=== PATIENT | female | born 1940 | race African-American/Black ===

== ENCOUNTER 2016-05-04 08:18 | Day surgery (SDC) | payer OTHER ==
[2016-05-04 08:52] LABS: BASOPHIL 0.5 % (0-2.0); EOSINOPHIL 0.2 % (0-4.5); MCH 21.3 pg (25.7-33.7); MCHC 30.2 g/dl (32.0-36.0); MEAN CELL VOLUME 70.5 fl (80-96); MEAN PLT VOLUME 8.7 fl (7.5-11.1); NEUTROPHILS 68.8 % (42.8-82.8); PLATELET COUNT 210 K/MM3 (134-434); RDW 23.3 % (11.6-15.6); WHITE BLOOD COUNT 4.9 K/mm3 (4.0-10.0)
[2016-05-04 09:01] VITALS: TEMP 97.5
[2016-05-04 09:12] LABS: INR 1.1 (0.82-1.09); PROTHROMBIN TIME (PATIENT) 12.1 SEC (9.98-11.88)
[2016-05-04 11:52] LABS: ANISOCYTOSIS 2+; HYPOCHROMIA 2+; PLATELET ESTIMATE ADEQUATE (NORMAL)
[2016-05-04 15:39] VITALS: BP 141/58; PULSE 60
--- NOTE | 2016-05-05 15:33 | PATH ---
Surgical Pathology Report Patient Name: MICAH INIGUEZ [facility]. Rec. #: [id number] /Age/Gender: 1940 (Age: 75) / F Account: [id number] Location: RADIOLOGY [facility] Taken: 05/04/2016 Received: 05/04/2016 Reported: 05/05/2016 Physicians: Donald Artis M.D. Owen Garcia M.D. Specimen(s) Received LEFT LUNG BIOPSY Clinical History 75 year old female with left breast cancer now with left lower lung pleural band lesion/infiltrate; r/o prior radiation changes, infections/inflammatory process vs primary lung ca Final Diagnosis LUNG, LEFT, PLEURAL BASED LESION, CT GUIDED CORE BIOPSY: BENIGN PULMONARY TISSUE WITH NECROTIZING GRANULOMATOUS INFLAMMATION (SEE COMMENT). Comment: No acid fast bacilli are identified with AFB stain; no fungal organisms are identified with GMS stain. Clinical and imaging correlations and correlations with microbiology studies are suggested. The case was discussed with Dr. Garcia and Dr. Artis on 05/05/16. Electronically Signed Kehinde Coronado M.D. Gross Description Received in formalin, labeled "lung biopsy" is a 1.0 cm in length x 0.1 cm diameter farmer, cylindrical portion of soft tissue. The specimen is submitted in toto in one cassette. 05/04/201605/04/2016
== END 2016-05-04 16:31 | disposition home or self-care (01) ==
LOC: JRADIR 08:18
PROVIDERS: ATTEND Internal Medicine
PROC: BB24ZZZ Computerized Tomography (CT Scan) of Bilateral Lungs (ICD-10-PCS; principal; 2016-05-04)
PROC: 0BBJ3ZX Excision of Left Lower Lung Lobe, Percutaneous Approach, Diagnostic (ICD-10-PCS; 2016-05-04)
DX: R91.1 Solitary pulmonary nodule (principal); I10 Essential (primary) hypertension; I25.10 Atherosclerotic heart disease of native coronary artery without angina pectoris; E78.5 Hyperlipidemia, unspecified; K21.9 Gastro-esophageal reflux disease without esophagitis; Z85.3 Personal history of malignant neoplasm of breast
CPT/HCPCS: 32405; 36415; 71010-TC; 77012-TC; 85025; 85610; 88305-TC; 88312-TC

== ENCOUNTER 2016-05-20 07:18 | Inpatient (IN) | payer OTHER ==
[2016-05-20 07:26] VITALS: BMI 19.7
[2016-05-20 07:59] LABS: BASOPHIL 0.7 % (0-2.0); EOSINOPHIL 0.2 % (0-4.5); MCH 21.5 pg (25.7-33.7); MCHC 30.9 g/dl (32.0-36.0); MEAN CELL VOLUME 69.5 fl (80-96); MEAN PLT VOLUME 8.6 fl (7.5-11.1); NEUTROPHILS 73.5 % (42.8-82.8); PLATELET COUNT 267 K/MM3 (134-434); RDW 23.8 % (11.6-15.6); WHITE BLOOD COUNT 6.9 K/mm3 (4.0-10.0)
[2016-05-20 08:13] LABS: INR 1.13 (0.82-1.09); PROTHROMBIN TIME (PATIENT) 12.5 SEC (9.98-11.88)
[2016-05-20] MEDS ORDERED: FUROSEMIDE 40 MG/4 ML INJECTABLE VIAL IVPUSH ONE (08:36)
--- NOTE | 2016-05-20 08:36 | PDOC ---
History of Present Illness - General History Source: Patient Exam Limitations: No Limitations - History of Present Illness Initial Comments: 05/20/16 08:41 The patient is a 75 year old female with a significant past medical history of hypertension, hyperlipidemia, COPD, s/p left sided lumpectomy who presents to the ED with complaints of shortness of breath and chest [place] since earlier today. The patient reports nonradiating mid sternal chest pain. She notes that she cant breath when she gets up. Patient also reports swelling to her right lower extremity. Patent reports she was recently discharged from the hospital and had a change in medication. 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 Patient denies palpitations or cough. Patient denies abdominal pain, nausea, vomiting, or diarrhea. Patient denies fevers or chills. Patient denies any other symptoms. Social hx: The patient smokes 2 cigarettes a day. Surgical hx: Hysterectomy Materials Clerk: Dr. Kevin. <Lon Barton - Last Filed: 05/20/16 08:41> <Kathi Serrano - Last Filed: 05/24/16 08:02> - General Chief Complaint: Shortness of Breath Stated Complaint: SOB Time Seen by Provider: 05/20/16 07:25 Past History <Lon Barton - Last Filed: 05/20/16 08:41> - Past Medical History Anemia: No Asthma: No Cancer: Yes (breast ca/radiation therapy LEFT) Cardiac Disorders: No CVA: No COPD: Yes CHF: No Dementia: No Diabetes: No GI Disorders: No Disorders: No HTN: Yes Hypercholesterolemia: Yes Liver Disease: No Suicide Attempt (Hx): No Seizures: No Thyroid Disease: No - Surgical History Abdominal Surgery: No Appendectomy: No Cardiac Surgery: No Cholecystectomy: No Lung Surgery: No Neurologic Surgery: No Orthopedic Surgery: Yes (right foot) - Immunization History Immunization Up to Date: Yes - Psycho/Social/Smoking Cessation Hx Anxiety: No Suicidal Ideation: No Smoking History: Current every day smoker Have you smoked in the past 12 months: Yes Number of Cigarettes Smoked Daily: 2 Cigars Per Day: 0 Information on smoking cessation initiated: No 'Breaking Loose' booklet given: 04/15/16 Hx Alcohol Use: No Drug/Substance Use Hx: No Substance Use Type: None Hx Substance Use Treatment: No <Kathi Serrano - Last Filed: 05/24/16 08:02> - Past Medical History Allergies/Adverse Reactions: Allergies Allergy/AdvReac Type Severity Reaction Status Date / Time No Known Allergies Allergy Verified 05/02/16 10:26 Home Medications: Ambulatory Orders Cholecalciferol (Vitamin D3) [Vitamin D3 -] 1,000 unit PO DAILY #30 tab Albuterol Sulfate [Proair Hfa -] 2 inh PO BID 06/14/14 Omeprazole 20 mg PO DAILY 09/29/15 Diltiazem Cd [Cardizem Cd -] 360 mg PO DAILY #30 cap.cd.24h 10/15/15 Furosemide [Lasix -] 20 mg PO DAILY #30 tablet 12/14/15 Acetaminophen [Tylenol Extra Strength] 500 mg PO QID #90 tablet 02/22/16 Aspirin [ASA -] 81 mg PO DAILY tab.chew 02/22/16 Atorvastatin Ca [Lipitor] 40 mg PO HS tablet 02/22/16 Budesonide/Formeterol Fumarate [SYMBICORT 160/4.5mcg -] 2 puff IH BID inhaler 02/22/16 Lisinopril [Prinivil] 10 mg PO DAILY tablet 02/22/16 Nitroglycerin Sublingual [Nitrostat -] 0.4 mg SL Q5M PRN #30 tab 02/22/16 Ranolazine [Ranexa -] 500 mg PO BID tab 02/22/16 Verapamil HCl ER [Calan Sr -] 180 mg PO DAILY #30 tablet.er 02/22/16 Review of Systems - Review of Systems Able to Perform ROS?: Yes Comments:: 05/20/16 08:41 GENERAL/CONSTITUTIONAL: No fever or chills. No weakness. HEAD, EYES, EARS, NOSE AND THROAT: No change in vision. No ear pain or discharge. No sore throat. CARDIOVASCULAR: + chest pain, shortness of breath, right ankle swelling RESPIRATORY: No cough, wheezing, or hemoptysis. GASTROINTESTINAL: No nausea, vomiting, diarrhea or constipation. GENITOURINARY: No dysuria, frequency, or change in urination. MUSCULOSKELETAL: No joint or muscle swelling or pain. No neck or back pain. SKIN: No rash NEUROLOGIC: No headache, vertigo, loss of consciousness, or change in strength/ sensation. ENDOCRINE: No increased thirst. No abnormal weight change. HEMATOLOGIC/LYMPHATIC: No anemia, easy bleeding, or history of blood clots. ALLERGIC/IMMUNOLOGIC: No hives or skin allergy. All Other Systems: Reviewed and Negative <Lon Barton - Last Filed: 05/20/16 08:41> *Physical Exam - Vital Signs Last Vital Signs Temp Pulse Resp BP Pulse Ox 98.7 F 81 26 H 157/68 83 L 05/20/16 07:23 05/20/16 07:23 05/20/16 07:23 05/20/16 07:23 05/20/16 07:23 - Physical Exam Comments: 05/20/16 08:42 GENERAL: Awake, alert, and fully oriented, in no acute distress HEAD: No signs of trauma EYES: PERRLA, EOMI, sclera anicteric, conjunctiva clear ENT: Auricles normal inspection, hearing grossly normal, nares patent, oropharynx clear without exudates. Moist mucosa NECK: Normal ROM, supple, no lymphadenopathy, JVD, or masses LUNGS: +diffuse expiratory wheezes and mild tachypnea. Moderate decreased breath sounds bilaterally. No wheezes. HEART: Regular rate and rhythm, normal S1 and S2, no murmurs, rubs or gallops ABDOMEN: Soft, nontender, normoactive bowel sounds. No guarding, no rebound. No masses EXTREMITIES:+2+ pitting edema at the right ankle. Normal range of motion. No clubbing or cyanosis. No cords, erythema, or tenderness NEUROLOGICAL: Cranial nerves II through XII grossly intact. Normal speech, normal gait SKIN: Warm, Dry, normal turgor, no rashes or lesions noted. <Lon Barton - Last Filed: 05/20/16 08:41> - Vital Signs Last Vital Signs Temp Pulse Resp BP Pulse Ox 98.7 F 81 26 H 157/68 83 L 05/20/16 07:23 05/20/16 07:23 05/20/16 07:23 05/20/16 07:23 05/20/16 07:23 <Kathi Serrano - Last Filed: 05/24/16 08:02> ED Treatment Course - LABORATORY CBC & Chemistry Diagram: 05/20/16 07:20 05/20/16 07:20 - ADDITIONAL ORDERS Additional order review: Laboratory Results 05/20/16 05/20/16 07:20 07:20 INR 1.13 B-Natriuretic Peptide Cancelled 05/20/16 07:20 RBC 4.49 MCV 69.5 L MCHC 30.9 L RDW 23.8 H MPV 8.6 Neutrophils % 73.5 Lymphocytes % 15.5 D Monocytes % 10.1 Eosinophils % 0.2 Basophils % 0.7 <Lon Barton - Last Filed: 05/20/16 08:41> - LABORATORY CBC & Chemistry Diagram: 05/24/16 05:35 05/22/16 06:00 - ADDITIONAL ORDERS Additional order review: Laboratory Results 05/20/16 07:20 B-Natriuretic Peptide Cancelled 05/20/16 07:20 RBC 4.49 MCV 69.5 L MCHC 30.9 L RDW 23.8 H MPV 8.6 Neutrophils % 73.5 Lymphocytes % 15.5 D Monocytes % 10.1 Eosinophils % 0.2 Basophils % 0.7 - RADIOLOGY Radiology Studies Ordered: Category Date Time Status CHEST X-RAY PORTABLE* [RAD] Stat Radiology 05/20/16 07:39 Completed <Kathi Serrano - Last Filed: 05/24/16 08:02> Medical Decision Making - Medical Decision Making Pt with history CHF, appears fluid-overloaded on exam. Noted to have RLE swelling>> left. Although this is chronic per patient, will obtain doppler. Cardio consult obtained. To be admitted. <Kathi Serrano - Last Filed: 05/24/16 08:02> *DC/Admit/Observation/Transfer - Attestations Scribe Attestion: 05/20/16 08:42 Documentation prepared by Lon Barton, acting as biomedical equipment tech for Kathi Serrano MD <Lon Barton - Last Filed: 05/20/16 08:41> - Discharge Dispostion Admit: Yes <Kathi Serrano - Last Filed: 05/24/16 08:02> Diagnosis at time of Disposition: CHF (congestive heart failure) Qualifiers: Congestive heart failure type: diastolic Congestive heart failure chronicity: chronic Qualified Code(s): I50.32 - Chronic diastolic (congestive) heart failure - Discharge Dispostion Condition at time of disposition: Guarded
[2016-05-20 08:51] LABS: ALBUMIN 3.1 g/dl (3.4-5.0); ANION GAP 9 (8-16); BILIRUBIN,TOTAL 0.9 mg/dL (0.2-1.0); CALCIUM 8.8 mg/dL (8.5-10.1); CO2 33 mmol/L (21-32); GLUCOSE,RANDOM 109 mg/dL (74-106); SGPT/ALT 24 U/L (12-78); TOT PROT 7.1 g/dl (6.4-8.2)
[2016-05-20 08:56] LABS: ALK PHOS 79 U/L (45-117); CREATININE 0.5 mg/dL (0.55-1.02); TROPONIN I 0.11 ng/ml (0.00-0.05)
[2016-05-20] MEDS ORDERED: FUROSEMIDE 40 MG/4 ML INJECTABLE VIAL ONE (09:22)
[2016-05-20 09:25] LABS: SGOT/AST 50 U/L (15-37)
--- NOTE | 2016-05-20 09:46 | EKG ---
Test Reason : Blood Pressure : / mmHG Vent. Rate : 089 BPM Atrial Rate : 089 BPM P-R Int : 152 ms QRS Dur : 120 ms QT Int : 374 ms P-R-T Axes : 064 -40 043 degrees QTc Int : 455 ms POOR DATA QUALITY, INTERPRETATION MAY BE ADVERSELY AFFECTED SINUS RHYTHM WITH PREMATURE SUPRAVENTRICULAR COMPLEXES POSSIBLE LEFT ATRIAL ENLARGEMENT LEFT AXIS DEVIATION LEFT VENTRICULAR HYPERTROPHY WITH QRS WIDENING AND REPOLARIZATION ABNORMALITY CANNOT RULE OUT SEPTAL INFARCT , AGE UNDETERMINED ABNORMAL ECG Confirmed by BALJEET SOSA MD ([id number]) on 05/20/2016 9:46:13 AM Referred By: Confirmed By:BALJEET SOSA MD
--- NOTE | 2016-05-20 10:36 | PN ---
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, Physician Chief Complaint: Well known to our service with multiple admissions over the last one year, last two months ago for similar complaints. PMH of CAD, , COPD and chronic diastolic CHF now presents to ER with one day of worsened SOB. Found to have markedly elevated BN and CXR showing CHF and small effusions. Received IV Lasix last evening in ER and is now feeling much better, wanting to "go home". History of Present Illness: The patient is a 75 year old female with a significant past medical history of hypertension, hyperlipidemia, COPD, s/p left sided lumpectomy who presents to the ED with complaints of shortness of breath and chest is[place] since earlier today. The patient reports nonradiating mid sternal chest pain. She notes that she cant breath when she gets up. Patient also reports swelling to her right lower extremity. Had lung bx recently for suspected metastatic dx which was negative. - Objective Vital Signs: Vital Signs Temperature 98.7 F 05/20/16 07:23 Pulse Rate 81 05/20/16 07:23 Respiratory Rate 26 H 05/20/16 07:23 Blood Pressure 157/68 05/20/16 07:23 O2 Sat by Pulse Oximetry (%) 83 L 05/20/16 07:23 Constitutional: Yes: No Distress Cardiovascular: Yes: Regular Rate and Rhythm Respiratory: Yes: Other (bilateral rales at bases and scattered wheezing.) Gastrointestinal: Yes: Soft Edema: Yes Edema: LLE: 1+, RLE: 2+ Neurological: Yes: Alert, Oriented Labs: CBC, BMP 05/20/16 07:20 05/20/16 07:20 INR, PTT INR 1.13 (0.82-1.09) 05/20/16 07:20 Laboratory Tests 05/20/16 05/20/16 05/20/16 07:20 07:20 07:20 WBC 6.9 D Hgb 9.7 L Hct 31.2 L Plt Count 267 D INR 1.13 Sodium 141 Potassium 5.2 H BUN 17 Creatine Kinase 115 Troponin I 0.11 H B-Natriuretic Peptide 9856.36 H - ....Imaging Chest X-ray: Report Reviewed, Image Reviewed EKG: Image Reviewed (NSR with NSST changes) Assessment/Plan IMP: Chest pain, h/o CAD w/ prior coronary intervention years ago, has refused cardiac cath on multiple recent occasions History breast cancer, lung mass with negative bx COPD, chronic with chronic hypoxemia Mild PSVT Chronic diastolic CHF carotid stenosis s/p CEA REC: Chest pain-multiple admissions for similar sx -refusing cardiac cath for now, understands the risks/benefits/alternatives -chest pain is improved -trend cardiac enzymes -Echo 02/17 showed normal LV systolic function, mod AR, mild , no sig change from prior echo -she does not tolerate a bblocker due to her severe COPD -she states that she did not tolerate Plavix in the past due to facial swelling/ itching -she had a recent subdural hematoma thus would not treat with effient or brilinta -would cont ASA 81mg daily -cont Imdur 30mg daily and Ranexa 500mg bid -cont NTG SL prn -cont Lipitor 40mg qhs -cont Lisinopril 10mg daily -as pt has refused cardiac cath for now, no further planned inpatient cardiac work up at this time SOB-wheezing, likely combination of acute on chronic diastolic CHF with chronic COPD -this is chronic condition that pt deals with -again reenforced importance of smoking cessation -IV lasix, pulmonary evaluation PSVT -refuses Cardizem as she believes it causes facial swelling and itching -has tolerated verapamil -cannot use bblocker due to COPD -cont digoxin 0.125mg daily Edema- -likely due to CHF, but asymmetric. Check LE venou duplex to r/o DVT
[2016-05-20 10:54] LABS: ANISOCYTOSIS 2+; HYPOCHROMIA 2+; MICROCYTOSIS 1+; OVALOCYTES 1+; PLATELET ESTIMATE ADEQUATE (NORMAL); POIKILOCYTOSIS 2+; POLYCHROMASIA 1+; TARGET CELLS 2+
[2016-05-20] MEDS: ISOSORBIDE MONONITRATE 30 MG TAB.SR.24H (FP) PO SCH (14:28)
[2016-05-20] MEDS: ASPIRIN 81 MG CHEWABLE TABLETS PO SCH (14:28)
[2016-05-20] MEDS: LISINOPRIL 10 MG TABLET (FP) PO SCH (14:28)
[2016-05-20] MEDS: VERAPAMIL HCL 120 MG E.R. TABLET PO SCH (14:28)
[2016-05-20] MEDS ORDERED: ASPIRIN 81 MG CHEWABLE TABLETS ONE (14:32)
[2016-05-20] MEDS ORDERED: ALBUTEROL SO4 0.083% IH SOL 2.5 MG/3 ML VIAL.NEB. NEB PRN (16:07)
--- NOTE | 2016-05-20 17:17 | CON.PULM ---
Consult Consult Specialty:: PULMONARY Referred by:: ANI Reason for Consultation:: SOB - History of Present Illness Chief Complaint: SOB History of Present Illness: The patient is a 75 year old female with a significant past medical history of hypertension, hyperlipidemia, COPD, s/p left sided lumpectomy/breast cancer who presents to the ED with complaints of shortness of breath and chest [place] since earlier today. The patient reports nonradiating mid sternal chest pain. She notes that she cant breath when she gets up. Patient also reports swelling to her right lower extremity. Patent reports she was recently discharged from the hospital and had a change in medication. 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 Patient denies palpitations or cough. Patient denies abdominal pain, nausea, vomiting, or diarrhea. Patient denies fevers or chills. Patient denies any other symptoms. Social hx: The patient smokes 2 cigarettes a day. 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) Cardio/Vascular: Yes: CAD, CHF, HTN, Other (carotid stenosis s/p CEA) Pulmonary: Yes: COPD, O2 Dependent, Other (Lung nodules) - Past Surgical History Past Surgical History: Yes: Carotid Endarterectomy (right), Hysterectomy - Alcohol/Substance Use Hx Alcohol Use: No History of Substance Use: reports: None - Smoking History Smoking history: Current every day smoker Have you smoked in the past 12 months: Yes Aproximately how many cigarettes per day: 2 - Social History Usual Living Arrangement: Alone ADL: Independent History of Recent Travel: No Home Medications - Allergies Allergies/Adverse Reactions: Allergies Allergy/AdvReac Type Severity Reaction Status Date / Time No Known Allergies Allergy Verified 05/02/16 10:26 - Home Medications Home Medications: Ambulatory Orders Cholecalciferol (Vitamin D3) [Vitamin D3 -] 1,000 unit PO DAILY #30 tab Albuterol Sulfate [Proair Hfa -] 2 inh PO BID 06/14/14 Omeprazole 20 mg PO DAILY 09/29/15 Diltiazem Cd [Cardizem Cd -] 360 mg PO DAILY #30 cap.cd.24h 10/15/15 Furosemide [Lasix -] 20 mg PO DAILY #30 tablet 12/14/15 Acetaminophen [Tylenol Extra Strength] 500 mg PO QID #90 tablet 02/22/16 Aspirin [ASA -] 81 mg PO DAILY tab.chew 02/22/16 Atorvastatin Ca [Lipitor] 40 mg PO HS tablet 02/22/16 Budesonide/Formeterol Fumarate [SYMBICORT 160/4.5mcg -] 2 puff IH BID inhaler 02/22/16 Lisinopril [Prinivil] 10 mg PO DAILY tablet 02/22/16 Nitroglycerin Sublingual [Nitrostat -] 0.4 mg SL Q5M PRN #30 tab 02/22/16 Ranolazine [Ranexa -] 500 mg PO BID tab 02/22/16 Verapamil HCl ER [Calan Sr -] 180 mg PO DAILY #30 tablet.er 02/22/16 Family Disease History - Family Disease History Family Disease History: CA: Father (widespread, unsure of which type), Other: Mother ( of brain hemorrhage after trauma) Review of Systems - Review of Systems Constitutional: denies: Fever Eyes: denies: Blurred Vision HENT: denies: Difficult Swallowing Neck: denies: Decreased ROM Cardiovascular: reports: Chest Pain, Shortness of Breath Respiratory: reports: Cough, Exercise Intolerance, SOB, SOB on Exertion, Wheezing. denies: Hemoptysis Gastrointestinal: reports: Abdominal Pain (MID EPIGASTRIC) Genitourinary: denies: Burning Breasts: reports: No Symptoms Reported Musculoskeletal: reports: No Symptoms Integumentary: reports: No Symptoms Neurological: reports: No Symptoms Physical Exam Vital Sings: Vital Signs Temperature 98.0 F 05/20/16 14:27 Pulse Rate 80 05/20/16 14:27 Respiratory Rate 18 05/20/16 14:27 Blood Pressure 140/65 05/20/16 14:27 O2 Sat by Pulse Oximetry (%) 96 05/20/16 14:27 Constitutional: Yes: Calm Eyes: Yes: EOM Intact HENT: Yes: Normocephalic Neck: Yes: Trachea Midline Cardiovascular: Yes: S1, S2 Respiratory: Yes: Wheezes (BILATERAL ANTERIOR/POSTERIOR) Gastrointestinal: Yes: Normal Bowel Sounds, Soft Edema: RLE: 1+ Integumentary: Yes: WNL Neurological: Yes: WNL Labs: ALL LABS REVIEWED Imaging - Results Chest X-ray: Image Reviewed Problem List - Problems (1) CHF (congestive heart failure) Code(s): I50.9 - HEART FAILURE, UNSPECIFIED Qualifiers: Congestive heart failure type: diastolic Congestive heart failure chronicity: chronic Qualified Code(s): I50.32 - Chronic diastolic ( congestive) heart failure (2) Acute on chronic respiratory failure with hypoxia Code(s): J96.21 - ACUTE AND CHRONIC RESPIRATORY FAILURE WITH HYPOXIA (3) Breast CA Code(s): C50.919 - MALIGNANT NEOPLASM OF UNSP SITE OF UNSPECIFIED FEMALE BREAST Qualifiers: Laterality: unspecified laterality (4) CAD (coronary artery disease) Code(s): I25.10 - ATHSCL HEART DISEASE OF [place] CORONARY ARTERY W/O ANG PCTRS (5) Pleural effusion Code(s): J90 - PLEURAL EFFUSION, NOT ELSEWHERE CLASSIFIED Assessment/Plan WELL KNOWN BY OUR SERVICE RECENT TRANS-THORACIC NEEDLE BX LUNG MASS REVEALED GRANULOMA/NO MALIGNANCY BREAST CA COPD/BRONCHOSPASTIC COMPONENT/HOME O2 CHF/LVDD/ELEVATED TROPONIN PLEURAL EFFUSION WILL START SHORT COURSE STEROIDS/BRONCHODILATORS/O2 SUPPLEMENTATION AGREE WITH DIURESIS/NA RESTRICTION/CYCLE TROPS/EKG/DVT PROPHYLAXSIS NITRATES/MARIPOSA/VERAPAMIL/CARDIO FOLLOW UP. WILL FOLLOW Jory GHOSH MD
--- NOTE | 2016-05-20 17:41 | HP ---
CHIEF COMPLAINT: Shortness of breath, Chest Pain PCP: Cardiology: Dr Kevin HISTORY OF PRESENT ILLNESS: 75 year old female with pmh of HTN, HPLD, COPD presented to the ED with complaint of SOB and chest pain. The shortness of breath started today, she also has orthopnea, dyspnea on exacerbation, unable to walk to bathroom without feeling dyspneic. Pt also has increased lower ext edema right more than left. Pt also has chest pain, started 3 days ago, substernal/epigastric, intermittent dull, sometimes burning, 8/10, increased with swallowing food, does not radiate. Pt with yellow productive cough especially in am upon waking up. Pt admits to having a history of heartburn and sour taste in mouth when eat certain food. No nausea or vomiting. No palpitation, no hemoptysis, no leg pain. No fever, chills. No dizziness or confusion. ER course was notable for: (1) Aspirin, lasix IV (2) CXR, US lower ext Recent Travel: None PAST MEDICAL HISTORY: HTN, HPLD, COPD PAST SURGICAL HISTORY: Hysterectomy, Lung Biopsy which showed no malignancy Social History: Smoking:Current lifelong Smoker 4 cigarette per day Alcohol: denies Drugs: denies Family History: noncontributory Allergies Cardizem cause facial swelling and itching Plavix cause nausea, heartburn, bruising HOME MEDICATIONS: Home Medications Medication Instructions Recorded Cholecalciferol (Vitamin D3) 1,000 unit PO DAILY #30 tab 04/02/13 [Vitamin D3 -] Albuterol Sulfate [Proair Hfa -] 2 inh PO BID 06/14/14 Omeprazole 20 mg PO DAILY 09/29/15 Diltiazem Cd [Cardizem Cd -] 360 mg PO DAILY #30 cap.cd.24h 10/15/15 Furosemide [Lasix -] 20 mg PO DAILY #30 tablet 12/14/15 Acetaminophen [Tylenol Extra 500 mg PO QID #90 tablet 02/22/16 Strength] Aspirin [ASA -] 81 mg PO DAILY tab.chew 02/22/16 Atorvastatin Ca [Lipitor] 40 mg PO HS tablet 02/22/16 Budesonide/Formeterol Fumarate 2 puff IH BID inhaler 02/22/16 [SYMBICORT 160/4.5mcg -] Lisinopril [Prinivil] 10 mg PO DAILY tablet 02/22/16 Nitroglycerin Sublingual 0.4 mg SL Q5M PRN #30 tab 02/22/16 [Nitrostat -] Ranolazine [Ranexa -] 500 mg PO BID tab 02/22/16 Verapamil HCl ER [Calan Sr -] 180 mg PO DAILY #30 tablet.er 02/22/16 REVIEW OF SYSTEMS CONSTITUTIONAL: Absent: fever, chills, diaphoresis, generalized weakness, malaise, loss of appetite, weight change HEENT: Absent: rhinorrhea, nasal congestion, throat pain, throat swelling, difficulty swallowing, mouth swelling, ear pain, eye pain, visual changes CARDIOVASCULAR: chest pain, peripheral edema Absent: syncope, palpitations, irregular heart rate, lightheadedness RESPIRATORY: cough, shortness of breath, dyspnea with exertion, orthopnea, wheezing Absent:,stridor GASTROINTESTINAL: Absent: abdominal pain, abdominal distension, nausea, vomiting, diarrhea, constipation, melena, hematochezia GENITOURINARY: Absent: dysuria, frequency, urgency, hesitancy, hematuria, flank pain, genital pain MUSCULOSKELETAL: Absent: myalgia, arthralgia, joint swelling, back pain, neck pain SKIN: Absent: rash, itching, pallor HEMATOLOGIC/IMMUNOLOGIC: Absent: easy bleeding, easy bruising, lymphadenopathy, frequent infections ENDOCRINE: Absent: unexplained weight gain, unexplained weight loss, heat intolerance, cold intolerance NEUROLOGIC: Absent: headache, focal weakness or paresthesias, dizziness, unsteady gait, seizure, mental status changes, bladder or bowel incontinence PSYCHIATRIC: Absent: anxiety, depression, suicidal or homicidal ideation, hallucinations. PHYSICAL EXAMINATION Vital Signs - 24 hr 05/20/16 14:27 Temperature 98.0 F Pulse Rate [ 80 Apical] Respiratory 18 Rate Blood Pressure 140/65 [Right Arm] O2 Sat by Pulse 96 Oximetry (%) GENERAL: Awake, alert, and fully oriented, in no acute distress. HEAD: Normal with no signs of trauma. EYES: Pupils equal, round and reactive to light, extraocular movements intact, sclera anicteric, conjunctiva clear. No lid lag. EARS, NOSE, THROAT: Ears normal, nares patent, oropharynx clear without exudates. Moist mucous membranes. NECK: Normal range of motion, supple without lymphadenopathy, JVD, or masses. LUNGS: Breath sounds equal, scattered ronchi, Exp wheezes. and no crackles. No accessory muscle use. HEART: Regular rate and rhythm, normal S1 and S2 with systolic murmur, rub or gallop. ABDOMEN: Soft, nontender, not distended, normoactive bowel sounds, no guarding, no rebound, no masses. No hepatomegaly or splenomegaly. MUSCULOSKELETAL: Normal range of motion at all joints. No bony deformities or tenderness. No CVA tenderness. UPPER EXTREMITIES: 2+ pulses, warm, well-perfused. No cyanosis. No clubbing. Cap refill <2 seconds.No peripheral edema. LOWER EXTREMITIES: 2+ pulses, warm, well-perfused. No calf tenderness. No peripheral edema. Right lower ext edema 3+, left lower ext edema 1+. NEUROLOGICAL: Cranial nerves II-XII intact. Normal speech. Normal gait. PSYCHIATRIC: Cooperative. Good eye contact. Appropriate mood and affect. SKIN: Warm, dry, normal turgor, no rashes or lesions noted. ASSESSMENT/PLAN: 75 year old female with pmh of HTN, HPLD, COPD presented to the ED with complaint of SOB, chest pain, orthopnea, dyspnea on exacerbation, Lower ext edema with elevated BNP and vascular congestion with pleural effusion on CXR. Pt was found to Have CHF and improved with Lasix and breathing treatment. Chest Pain r/o ACS Trop 0.11 Trend cardiac profile ON ASA Per cardiology Pt refuses Plavix because it causes her facial swelling, Nausea, aching, bruises Per cardiology Pt refused cardiac cath on Lipitor Started on PPI Acute chronic on diastolic CHF Pt with previous echo with normal LV function, no wall motion abnormalities Lasix 40mg IV daily Daily weight Intake and output COPD Productive cough in am with yellow sputum, increased in am upon waking up Pneumonia unlikely since there is no fever, no white count, no CXR findings Oxygen 2 Liters Resume Symbicort PRN albuterol Started on Solumedrol Pulmonary on case Lower ext edema rt to CHF US lower negative for DVT Will follow Should improve with diuresis Elevated legs FEN Fluid: none Electolytes: no abnormalities Nutrition: Cardiac diet DVT prophylaxis Heparin SQ [facility] Visit type - Emergency Visit Emergency Visit: Yes ED Registration Date: 05/20/16 Care time: The patient presented to the Emergency Department on the above date and was hospitalized for further evaluation of their emergent condition. - New Patient This patient is new to me today: Yes Date on this admission: 05/21/16 - Critical Care Critical Care patient: No
--- NOTE | 2016-05-20 18:24 | PN ---
Teaching Attending Note Name of Resident: Ramses Buck ATTENDING PHYSICIAN STATEMENT I saw and evaluated the patient. I reviewed the resident's note and discussed the case with the resident. I agree with the resident's findings and plan as documented. SUBJECTIVE: This is a 75-year-old woman who presented to the ER complaining of mid-sternal chest tightness that does not radiate and is not associated with palpitations, diaphoresis, nausea. She has shortness of breath with exertion and swelling of her legs. OBJECTIVE: Vital Signs Period Temp Pulse Resp BP Sys/Rasheed Pulse Ox Last 24 Hr 98.0 F-99.4 F 76-81 18-26 130-157/57-68 83-99 HEART: S1 S2, RRR, (+) 2/6 SM LUNGS: Bilateral wheezing, bibasilar crackles ABDOMEN: Soft, non-tender, non-distended, normal BS EXTREMITIES: 1+ edmea ASSESSMENT AND PLAN: This is a 75-year-old woman with a history of HTN, hyperlipidemia, COPD who comes to the ER with chest pain, SOBOE and leg edema. 1. Chest pain - Monitor on telemetry - Serial troponins - Continue aspirin, Ranexa, Verapamil, Lisinopril, Lipitor - Unable to tolerate beta-jojo because of COPD - Patient refuses cardiac catheterization 2. Acute diastolic heart failure - Lasix IV 3. Chronic hypoxic respiratory failure secondary to COPD - Continue Symbicort, oxygen - DuoNeb as needed
[2016-05-20] MEDS: PANTOPRAZOLE 40 MG TABLET (FP) PO SCH (18:31)
[2016-05-20] MEDS: methylPREDNISolone NA SUCC 40 MG/1 ML VIAL IVPB SCH (18:31)
[2016-05-20 21:03] LABS: TROPONIN I 0.32 ng/ml (0.00-0.05)
[2016-05-20] MEDS: HEPARIN NA (PORCINE) 5,000 UNITS/ML 1ML VIAL SQ SCH (21:46)
[2016-05-20] MEDS: ATORVASTATIN CA 40 MG TABLET (FP) PO SCH (21:47)
[2016-05-20] MEDS: BUDESONIDE/FORMETEROL FUMARATE 160/4.5 mcg INHALER IH SCH (21:47)
[2016-05-20] MEDS: RANOLAZINE E.R. 500 MG TABLET (FP) PO SCH (22:09)
[2016-05-20] MEDS: ALBUTEROL SO4 2.5/IPRATROPIUM 0.5 INH SOL 3 ML VIAL.NEB. NEB SCH (22:35)
[2016-05-21] MEDS: methylPREDNISolone NA SUCC 40 MG/1 ML VIAL IVPB SCH ×3 (01:13→17:30)
[2016-05-21] MEDS: ALBUTEROL SO4 2.5/IPRATROPIUM 0.5 INH SOL 3 ML VIAL.NEB. NEB SCH ×3 (06:43→21:17)
--- NOTE | 2016-05-21 10:05 | PN ---
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, Physician Chief Complaint: still SOB with ambulation LE Duplex negative DVT - Current Medication List Current Medications: Active Medications Albuterol Sulfate (Ventolin 0.083% Nebulizer Soln -) 1 amp NEB Q4H PRN PRN Reason: SHORT OF BREATH/WHEEZING Albuterol/Ipratropium (Duoneb -) 1 amp NEB TIDR [facility] Last Admin: 05/21/16 06:43 Dose: 1 amp Aspirin (Asa -) 81 mg PO DAILY [facility] Last Admin: 05/20/16 14:28 Dose: 81 mg Atorvastatin Calcium (Lipitor -) 40 mg PO HS [facility] Last Admin: 05/20/16 21:47 Dose: Not Given Budesonide/Formoterol Fumarate (Symbicort 160/4.5mcg -) 2 puff IH BID [facility] Last Admin: 05/20/16 21:47 Dose: 2 puff Cholecalciferol (Vitamin D3 -) 1,000 unit PO DAILY [facility] Furosemide (Lasix Injection -) 40 mg IVPB DAILY [facility] Heparin Sodium (Porcine) (Heparin -) 5,000 unit SQ BID [facility] Last Admin: 05/20/16 21:46 Dose: 5,000 unit Isosorbide Mononitrate (Imdur -) 30 mg PO DAILY [facility] Last Admin: 05/20/16 14:28 Dose: 30 mg Lisinopril (Prinivil) 10 mg PO DAILY [facility] Last Admin: 05/20/16 14:28 Dose: 10 mg Methylprednisolone Sodium Succinate (Solu-Medrol -) 40 mg IVPB Q8H-IV [facility] Last Admin: 05/21/16 01:13 Dose: 40 mg Nitroglycerin (Nitrostat -) 0.4 mg SL Q5M PRN PRN Reason: CHEST PAIN Pantoprazole Sodium (Protonix -) 40 mg PO DAILY [facility] Last Admin: 05/20/16 18:31 Dose: 40 mg Ranolazine (Ranexa -) 500 mg PO BID [facility] Last Admin: 05/20/16 22:09 Dose: 500 mg Verapamil HCl (Calan Sr -) 120 mg PO DAILY [facility] Last Admin: 05/20/16 14:28 Dose: 120 mg - Objective Vital Signs: Vital Signs Temperature 99.4 F 05/20/16 18:00 Pulse Rate 76 05/20/16 18:00 Respiratory Rate 18 05/20/16 18:00 Blood Pressure 130/57 03/10/17 18:00 O2 Sat by Pulse Oximetry (%) 92 L 05/20/16 22:58 Constitutional: Yes: No Distress Cardiovascular: Yes: Regular Rate and Rhythm Respiratory: Yes: Other (bilateral rhonchi and rales) Gastrointestinal: Yes: Soft Edema: Yes Edema: LLE: Trace, RLE: Trace Labs: INR, PTT INR 1.13 (0.82-1.09) 05/20/16 07:20 Laboratory Tests 05/20/16 05/20/16 05/20/16 07:20 07:20 19:00 WBC 6.9 D Hgb 9.7 L Plt Count 267 D Potassium 5.2 H Creatine Kinase 115 60 Troponin I 0.11 H 0.32 H 05/21/16 09:30 WBC Hgb Plt Count Potassium Creatine Kinase Pending Troponin I Pending Assessment/Plan IMP: Chest pain, h/o CAD w/ prior coronary intervention years ago, has refused cardiac cath on multiple recent occasions History breast cancer, lung mass with negative bx COPD, chronic with chronic hypoxemia Mild PSVT Chronic diastolic CHF Carotid stenosis s/p CEA REC: Chest pain-multiple admissions for similar sx -refusing cardiac cath, understands the risks/benefits/alternatives -Enzymes are essentially flat -Echo 02/17 showed normal LV systolic function, mod AR, mild , no sig change from prior echo -she does not tolerate a bblocker due to her severe COPD -she states that she did not tolerate Plavix in the past due to facial swelling/ itching -she had a recent subdural hematoma thus would not treat with effient or brilinta -would cont ASA 81mg daily -cont Imdur 30mg daily and Ranexa 500mg bid -cont NTG SL prn -cont Lipitor 40mg qhs -cont Lisinopril 10mg daily -as pt has refused cardiac cath for now, no further planned inpatient cardiac work up at this time SOB-wheezing, likely combination of acute on chronic diastolic CHF with chronic COPD -IV lasix, pulmonary evaluation appreciated PSVT -refuses Cardizem as she believes it causes facial swelling and itching -has tolerated verapamil -cannot use bblocker due to COPD
[2016-05-21 10:07] LABS: TROPONIN I 0.12 ng/ml (0.00-0.05)
[2016-05-21] MEDS: HEPARIN NA (PORCINE) 5,000 UNITS/ML 1ML VIAL SQ SCH ×2 (10:31→21:50)
[2016-05-21] MEDS: FUROSEMIDE 40 MG/4 ML INJECTABLE VIAL IVPB SCH (10:36)
[2016-05-21] MEDS: RANOLAZINE E.R. 500 MG TABLET (FP) PO SCH ×2 (10:39→21:51)
[2016-05-21] MEDS: CHOLECALCIFEROL (VITAMIN D3) 1,000 UNIT TABLET (FP) PO SCH (10:40)
[2016-05-21] MEDS: LISINOPRIL 10 MG TABLET (FP) PO SCH (10:40)
[2016-05-21] MEDS: VERAPAMIL HCL 120 MG E.R. TABLET PO SCH (10:40)
[2016-05-21] MEDS: ISOSORBIDE MONONITRATE 30 MG TAB.SR.24H (FP) PO SCH (10:40)
[2016-05-21] MEDS: ASPIRIN 81 MG CHEWABLE TABLETS PO SCH (10:40)
[2016-05-21] MEDS: PANTOPRAZOLE 40 MG TABLET (FP) PO SCH (10:41)
[2016-05-21] MEDS: BUDESONIDE/FORMETEROL FUMARATE 160/4.5 mcg INHALER IH SCH ×2 (10:41→21:51)
[2016-05-21 11:11] LABS: BASOPHIL 0.3 % (0-2.0); MEAN CELL VOLUME 69.8 fl (80-96); MEAN PLT VOLUME 8.3 fl (7.5-11.1); NEUTROPHILS 80.3 % (42.8-82.8); PLATELET COUNT 233 K/MM3 (134-434); RDW 23.1 % (11.6-15.6); WHITE BLOOD COUNT 4.5 K/mm3 (4.0-10.0)
[2016-05-21 11:56] LABS: CALCIUM 9.2 mg/dL (8.5-10.1); CREATININE 0.7 mg/dL (0.55-1.02); MAGNESIUM 2.1 mg/dL (1.8-2.4)
--- NOTE | 2016-05-21 13:05 | PN ---
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 (short form) - Note 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: c/o SOB which has improved since admission but states is causing difficulty ambulating. states she also has a constant pressure in the epigastric region which has been present ever since she was intubated several years ago. constant not related to activity or food. no change in quality or character at this time. denies CP, palpitaitons, N/v/C/D, fever, chills, Current Medications Generic Name Dose Route Start Last Admin Trade Name Freq PRN Reason Stop Dose Admin Albuterol Sulfate 1 amp 05/20/16 16:07 Ventolin 0.083% Nebulizer Soln - NEB Q4H PRN SHORT OF BREATH/WHEEZING Albuterol/Ipratropium 1 amp 05/20/16 22:00 05/21/16 06:43 Duoneb - NEB 1 amp TIDR [facility] Administration Aspirin 81 mg 05/20/16 13:00 05/21/16 10:40 Asa - PO 81 mg DAILY [facility] Administration Atorvastatin Calcium 40 mg 05/20/16 22:00 05/20/16 21:47 Lipitor - PO Not Given HS [facility] Budesonide/Formoterol Fumarate 2 puff 05/20/16 22:00 05/21/16 10:41 Symbicort 160/4.5mcg - IH 2 puff BID [facility] Administration Cholecalciferol 1,000 unit 05/21/16 10:00 05/21/16 10:40 Vitamin D3 - PO 1,000 unit DAILY [facility] Administration Furosemide 40 mg 05/21/16 10:00 05/21/16 10:36 Lasix Injection - IVPB 40 mg DAILY [facility] Administration Heparin Sodium (Porcine) 5,000 unit 05/20/16 22:00 05/21/16 10:31 Heparin - SQ 5,000 unit BID [facility] Administration Isosorbide Mononitrate 30 mg 05/20/16 12:45 05/21/16 10:40 Imdur - PO 30 mg DAILY [facility] Administration Lisinopril 10 mg 05/20/16 11:15 05/21/16 10:40 Prinivil PO 10 mg DAILY [facility] Administration Methylprednisolone Sodium Succinate 40 mg 05/20/16 18:00 05/21/16 10:32 Solu-Medrol - IVPB 40 mg Q8H-IV [facility] Administration Nitroglycerin 0.4 mg 05/20/16 16:02 Nitrostat - SL Q5M PRN CHEST PAIN Pantoprazole Sodium 40 mg 05/20/16 16:15 05/21/16 10:41 Protonix - PO 40 mg DAILY [facility] Administration Ranolazine 500 mg 05/20/16 22:00 05/21/16 10:39 Ranexa - PO 500 mg BID [facility] Administration Verapamil HCl 120 mg 05/20/16 12:45 05/21/16 10:40 Calan Sr - PO 120 mg DAILY [facility] Administration Last Vital Signs Temp Pulse Resp BP Pulse Ox 99.4 F 74 18 131/62 92 L 05/21/16 10:00 05/21/16 10:00 05/21/16 10:00 05/21/16 10:00 05/20/16 22:58 Intake & Output 05/18/16 05/19/16 05/20/16 05/21/16 23:59 23:59 23:59 23:59 Intake Total 200 200 Balance 200 200 Weight 115 lb 115 lb 2 oz General NAD CV S1 S2 RRR + murmur no rub/gallop no chest wall tenderness Lungs diffuse wheezing B/L crackles. abdomen- soft NT/ND Extremities trace pitting edema CBCD WBC 4.5 K/mm3 (4.0-10.0) D 05/21/16 11:00 RBC 4.32 M/mm3 (3.60-5.2) 05/21/16 11:00 Hgb 9.1 GM/dL (10.7-15.3) L 05/21/16 11:00 Hct 30.2 % (32.4-45.2) L 05/21/16 11:00 MCV 69.8 fl (80-96) L 05/21/16 11:00 MCHC 30.0 g/dl (32.0-36.0) L 05/21/16 11:00 RDW 23.1 % (11.6-15.6) H 05/21/16 11:00 Plt Count 233 K/MM3 (134-434) 05/21/16 11:00 MPV 8.3 fl (7.5-11.1) 05/21/16 11:00 CMP Sodium 136 mmol/L (136-145) 05/21/16 09:30 Potassium 4.9 mmol/L (3.5-5.1) 05/21/16 09:30 Chloride 96 mmol/L (98-107) L 05/21/16 09:30 Carbon Dioxide 33 mmol/L (21-32) H 05/21/16 09:30 Anion Gap 7 (8-16) L 05/21/16 09:30 BUN 18 mg/dL (7-18) 05/21/16 09:30 Creatinine 0.7 mg/dL (0.55-1.02) D 05/21/16 09:30 Creat Clearance w eGFR > 60 (>60) 05/20/16 07:20 Random Glucose 151 mg/dL (74-106) H D 05/21/16 09:30 Calcium 9.2 mg/dL (8.5-10.1) 05/21/16 09:30 Total Bilirubin 0.9 mg/dL (0.2-1.0) D 05/20/16 07:20 AST 50 U/L (15-37) H D 05/20/16 07:20 ALT 24 U/L (12-78) D 05/20/16 07:20 Alkaline Phosphatase 79 U/L (45-117) 05/20/16 07:20 Total Protein 7.1 g/dl (6.4-8.2) 05/20/16 07:20 Albumin 3.1 g/dl (3.4-5.0) L 05/20/16 07:20 CARDIAC ENZYMES Creatine Kinase 58 IU/L (26-192) 05/21/16 09:30 Troponin I 0.12 ng/ml (0.00-0.05) H 05/21/16 09:30 A/P 75yo F with PMH HTN. dyslipidemia, COPD on home O2, PSVT, CHF, breast ca presented to the ER and was admitted for further evalutation of their emergent condition 1. Acute on Chronic diastolic CHF- diuresing well per pt. no recorded I&O. cont lasix IV at this time. recent echo done. strict I&O. daily weights. cardio on board. doppler neg for dvt. pedal edema improved. may require higher dosing of lasix on discharge. will defer to cardio 2. elevated tropnins- states she has CP but points to abdomen. mild tropnin leak. offered cardiac cath in the past which she has refused. did not tolerate plavix. and has hx of subdural hematoma therefore not placed on alternative therapy. no betablocker due to COPD. cont asa, ranexa, acei 3. Acute on Chronic COPD- saturating 91-93% on 2L NC (home dose is 2-3L) on solumedrol 40mg Q8H. will leave at present time. taper per pulmonary. pulmonary on board. cont inhalers 4. Hyperkalemia- resolved 5. - stable. monitoring as outpatient 6. Continuous nicotine dependence- counseled on importance of nicotine cessation as this likely contributed to breathing problems. nicotine patch 7. Visit type - Emergency Visit Emergency Visit: Yes ED Registration Date: 05/20/16 Care time: The patient presented to the Emergency Department on the above date and was hospitalized for further evaluation of their emergent condition. - New Patient This patient is new to me today: Yes Date on this admission: 05/21/16 - Critical Care Critical Care patient: No - Discharge Referral Referred to [facility] Med P.C.: No
--- NOTE | 2016-05-21 14:43 | PN ---
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 (short form) - Note 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: PULMONARY VSS/AFEBRILE ANICTERIC SCATTERED WHEEZE B/L IMPROVED S1S2 BS+ NO EDEMA LABS/MEDS/NOTES/IMAGING REVIEWED RECENT TRANS-THORACIC NEEDLE BX LUNG MASS REVEALED GRANULOMA/NO MALIGNANCY BREAST CA COPD/BRONCHOSPASTIC COMPONENT/HOME O2 CHF/LVDD/ELEVATED TROPONIN PLEURAL EFFUSION SHORT COURSE STEROIDS/BRONCHODILATORS/O2 SUPPLEMENTATION AGREE WITH DIURESIS/NA RESTRICTION/CYCLE TROPS/EKG/DVT PROPHYLAXSIS NITRATES/MARIPOSA/VERAPAMIL/CARDIO FOLLOW UP. Jory GHOSH MD Problem List - Problems (1) CHF (congestive heart failure) Code(s): I50.9 - HEART FAILURE, UNSPECIFIED Qualifiers: Congestive heart failure type: diastolic Congestive heart failure chronicity: chronic Qualified Code(s): I50.32 - Chronic diastolic ( congestive) heart failure (2) Acute on chronic respiratory failure with hypoxia Code(s): J96.21 - ACUTE AND CHRONIC RESPIRATORY FAILURE WITH HYPOXIA (3) Breast CA Code(s): C50.919 - MALIGNANT NEOPLASM OF UNSP SITE OF UNSPECIFIED FEMALE BREAST Qualifiers: Laterality: unspecified laterality (4) CAD (coronary artery disease) Code(s): I25.10 - ATHSCL HEART DISEASE OF [place] CORONARY ARTERY W/O ANG PCTRS (5) Pleural effusion Code(s): J90 - PLEURAL EFFUSION, NOT ELSEWHERE CLASSIFIED
[2016-05-21] MEDS: NICOTINE 14 MG/24 HOURS TOPICAL PATCH TD SCH (14:51)
[2016-05-21] MEDS: ACETAMINOPHEN 325 MG TABLET (FP) PO PRN (14:51)
[2016-05-21] MEDS: ATORVASTATIN CA 40 MG TABLET (FP) PO SCH (21:51)
[2016-05-22] MEDS: methylPREDNISolone NA SUCC 40 MG/1 ML VIAL IVPB SCH ×3 (01:01→18:07)
[2016-05-22] MEDS: NITROGLYCERIN SUBLINGUAL 1/150 0.4 MG TAB SL PRN (04:53)
[2016-05-22] MEDS: ALBUTEROL SO4 2.5/IPRATROPIUM 0.5 INH SOL 3 ML VIAL.NEB. NEB SCH ×3 (06:40→21:48)
[2016-05-22] MEDS: PANTOPRAZOLE 40 MG TABLET (FP) PO SCH ×2 (07:24→11:30)
[2016-05-22 07:59] LABS: CALCIUM 9.1 mg/dL (8.5-10.1); CREATININE 0.6 mg/dL (0.55-1.02); MAGNESIUM 2.1 mg/dL (1.8-2.4)
--- NOTE | 2016-05-22 10:54 | PN ---
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, Physician Chief Complaint: still SOB - Current Medication List Current Medications: Active Medications Acetaminophen (Tylenol -) 650 mg PO Q4H PRN PRN Reason: FEVER OR PAIN Last Admin: 05/21/16 14:51 Dose: 650 mg Albuterol Sulfate (Ventolin 0.083% Nebulizer Soln -) 1 amp NEB Q4H PRN PRN Reason: SHORT OF BREATH/WHEEZING Albuterol/Ipratropium (Duoneb -) 1 amp NEB TIDR [facility] Last Admin: 05/22/16 06:40 Dose: 1 amp Aspirin (Asa -) 81 mg PO DAILY [facility] Last Admin: 05/21/16 10:40 Dose: 81 mg Atorvastatin Calcium (Lipitor -) 40 mg PO HS [facility] Last Admin: 05/21/16 21:51 Dose: 40 mg Budesonide/Formoterol Fumarate (Symbicort 160/4.5mcg -) 2 puff IH BID [facility] Last Admin: 05/21/16 21:51 Dose: 2 puff Cholecalciferol (Vitamin D3 -) 1,000 unit PO DAILY [facility] Last Admin: 05/21/16 10:40 Dose: 1,000 unit Furosemide (Lasix Injection -) 40 mg IVPB DAILY [facility] Last Admin: 05/21/16 10:36 Dose: 40 mg Heparin Sodium (Porcine) (Heparin -) 5,000 unit SQ BID [facility] Last Admin: 05/21/16 21:50 Dose: 5,000 unit Isosorbide Mononitrate (Imdur -) 30 mg PO DAILY [facility] Last Admin: 05/21/16 10:40 Dose: 30 mg Lisinopril (Prinivil) 10 mg PO DAILY [facility] Last Admin: 05/21/16 10:40 Dose: 10 mg Methylprednisolone Sodium Succinate (Solu-Medrol -) 40 mg IVPB Q8H-IV [facility] Last Admin: 05/22/16 01:01 Dose: 40 mg Nicotine (Nicoderm Patch -) 14 mg TD DAILY [facility] Last Admin: 05/21/16 14:51 Dose: Not Given Nitroglycerin (Nitrostat -) 0.4 mg SL Q5M PRN PRN Reason: CHEST PAIN Last Admin: 05/22/16 04:53 Dose: 0.4 mg Pantoprazole Sodium (Protonix -) 40 mg PO DAILY [facility] Last Admin: 05/22/16 07:24 Dose: 40 mg Ranolazine (Ranexa -) 500 mg PO BID [facility] Last Admin: 05/21/16 21:51 Dose: 500 mg Verapamil HCl (Calan Sr -) 120 mg PO DAILY [facility] Last Admin: 05/21/16 10:40 Dose: 120 mg - Objective Vital Signs: Vital Signs Temperature 98.1 F 05/22/16 06:00 Pulse Rate 71 05/22/16 06:00 Respiratory Rate 20 05/22/16 06:00 Blood Pressure 151/90 05/22/16 06:00 O2 Sat by Pulse Oximetry (%) 98 05/21/16 21:00 Constitutional: Yes: No Distress Cardiovascular: Yes: Regular Rate and Rhythm Respiratory: Yes: Other (bilateral expiratory wheezing) Gastrointestinal: Yes: Soft Edema: No Neurological: Yes: Alert, Oriented Labs: CBC, BMP 05/21/16 11:00 05/22/16 06:00 INR, PTT INR 1.13 (0.82-1.09) 05/20/16 07:20 Microbiology 05/20/16 07:40 Blood - Peripheral Venous Blood Culture - Preliminary NO GROWTH OBTAINED AFTER 48 HOURS, INCUBATION TO CONTINUE FOR 3 DAYS. 05/20/16 07:20 Blood - Peripheral Venous Blood Culture - Preliminary NO GROWTH OBTAINED AFTER 48 HOURS, INCUBATION TO CONTINUE FOR 3 DAYS. Laboratory Tests 05/20/16 05/20/16 05/21/16 07:20 19:00 09:30 Sodium Potassium BUN Creatinine Creatine Kinase 115 60 58 Troponin I 0.11 H 0.32 H 0.12 H 05/22/16 06:00 Sodium 138 Potassium 4.3 BUN 17 Creatinine 0.6 Creatine Kinase Troponin I Assessment/Plan IMP: Chest pain, h/o CAD w/ prior coronary intervention years ago, has refused cardiac cath on multiple recent occasions History breast cancer, lung mass with negative bx COPD, chronic with chronic hypoxemia Mild PSVT Chronic diastolic CHF Carotid stenosis s/p CEA REC: Chest pain-multiple admissions for similar sx -refusing cardiac cath, understands the risks/benefits/alternatives -Enzymes are essentially flat -Echo 02/17 showed normal LV systolic function, mod AR, mild , no sig change from prior echo -she does not tolerate a bblocker due to her severe COPD -she states that she did not tolerate Plavix in the past due to facial swelling/ itching -she had a recent subdural hematoma thus would not treat with effient or brilinta -would cont ASA 81mg daily -cont Imdur 30mg daily and Ranexa 500mg bid -cont NTG SL prn -cont Lipitor 40mg qhs -cont Lisinopril 10mg daily -as pt has refused cardiac cath for now, no further planned inpatient cardiac work up at this time SOB-wheezing, likely combination of acute on chronic diastolic CHF with chronic COPD -IV lasix, pulmonary evaluation appreciated, steroid tapering. PSVT -refuses Cardizem as she believes it causes facial swelling and itching -has tolerated verapamil -cannot use bblocker due to COPD
--- NOTE | 2016-05-22 11:00 | PN ---
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 (short form) - Note 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: c/o midsternal CP that started suddenly an hour ago radiating up. states it was similar in nature to a few days prior to presentation. states pain resolved with NTG given. denies palpitaitons, N/v/C/D, fever, chills, no BM in 4 days Current Medications Generic Name Dose Route Start Last Admin Trade Name Freq PRN Reason Stop Dose Admin Acetaminophen 650 mg 05/21/16 13:55 05/21/16 14:51 Tylenol - PO 650 mg Q4H PRN Administration FEVER OR PAIN Albuterol Sulfate 1 amp 05/20/16 16:07 Ventolin 0.083% Nebulizer Soln - NEB Q4H PRN SHORT OF BREATH/WHEEZING Albuterol/Ipratropium 1 amp 05/20/16 22:00 05/22/16 06:40 Duoneb - NEB 1 amp TIDR YEISON Administration Aspirin 81 mg 05/20/16 13:00 05/21/16 10:40 Asa - PO 81 mg DAILY YEISON Administration Atorvastatin Calcium 40 mg 05/20/16 22:00 05/21/16 21:51 Lipitor - PO 40 mg HS YEISON Administration Budesonide/Formoterol Fumarate 2 puff 05/20/16 22:00 05/21/16 21:51 Symbicort 160/4.5mcg - IH 2 puff BID YEISON Administration Cholecalciferol 1,000 unit 05/21/16 10:00 05/21/16 10:40 Vitamin D3 - PO 1,000 unit DAILY YEISON Administration Furosemide 40 mg 05/21/16 10:00 05/21/16 10:36 Lasix Injection - IVPB 40 mg DAILY YEISON Administration Heparin Sodium (Porcine) 5,000 unit 05/20/16 22:00 05/21/16 21:50 Heparin - SQ 5,000 unit BID YEISON Administration Isosorbide Mononitrate 30 mg 05/20/16 12:45 05/21/16 10:40 Imdur - PO 30 mg DAILY YEISON Administration Lisinopril 10 mg 05/20/16 11:15 05/21/16 10:40 Prinivil PO 10 mg DAILY YEISON Administration Methylprednisolone Sodium Succinate 40 mg 05/20/16 18:00 05/22/16 01:01 Solu-Medrol - IVPB 40 mg Q8H-IV YEISON Administration Nicotine 14 mg 05/21/16 14:30 05/21/16 14:51 Nicoderm Patch - TD Not Given DAILY YEISON Nitroglycerin 0.4 mg 05/20/16 16:02 05/22/16 04:53 Nitrostat - SL 0.4 mg Q5M PRN Administration CHEST PAIN Pantoprazole Sodium 40 mg 05/20/16 16:15 05/22/16 07:24 Protonix - PO 40 mg DAILY YEISON Administration Ranolazine 500 mg 05/20/16 22:00 05/21/16 21:51 Ranexa - PO 500 mg BID YEISON Administration Verapamil HCl 120 mg 05/20/16 12:45 05/21/16 10:40 Calan Sr - PO 120 mg DAILY YEISON Administration Last Vital Signs Temp Pulse Resp BP Pulse Ox 98.1 F 71 20 151/90 98 05/22/16 06:00 05/22/16 06:00 05/22/16 06:00 05/22/16 06:00 05/21/16 21:00 Intake & Output 05/19/16 05/20/16 05/21/16 05/23/16 23:59 23:59 23:59 00:59 Intake Total 200 900 Output Total 2 Balance 200 898 Weight 115 lb 115 lb 2 oz 116 lb 3 oz General NAD CV S1 S2 RRR + murmur no rub/gallop no chest wall tenderness Lungs diffuse wheezing no crackles, good inspiratory effort. abdomen- soft NT/ND Extremities no pitting edema CMP Sodium 138 mmol/L (136-145) 05/22/16 06:00 Potassium 4.3 mmol/L (3.5-5.1) 05/22/16 06:00 Chloride 97 mmol/L (98-107) L 05/22/16 06:00 Carbon Dioxide 37 mmol/L (21-32) H 05/22/16 06:00 Anion Gap 4 (8-16) L 05/22/16 06:00 BUN 17 mg/dL (7-18) 05/22/16 06:00 Creatinine 0.6 mg/dL (0.55-1.02) 05/22/16 06:00 Creat Clearance w eGFR > 60 (>60) 05/20/16 07:20 Calcium 9.1 mg/dL (8.5-10.1) 05/22/16 06:00 Total Bilirubin 0.9 mg/dL (0.2-1.0) D 05/20/16 07:20 AST 50 U/L (15-37) H D 05/20/16 07:20 ALT 24 U/L (12-78) D 05/20/16 07:20 Alkaline Phosphatase 79 U/L (45-117) 05/20/16 07:20 Total Protein 7.1 g/dl (6.4-8.2) 05/20/16 07:20 Albumin 3.1 g/dl (3.4-5.0) L 05/20/16 07:20 A/P 75yo F with PMH HTN. dyslipidemia, COPD on home O2, PSVT, CHF, breast ca presented to the ER and was admitted for further evalutation of their emergent condition 1. Acute on Chronic diastolic CHF- clinically improved. will consider switching to po tomorrow.trict I&O. daily weights. cardio on board. 2. CP- sounds more GI related however due to risk factors will check cardiac markers. refused cardiac cath in the past. 3. constipation- start stool softeners if no BM in 48H will given enema 4. Acute on Chronic COPD-continues to have diffuse wheezing. will continue steroids at current dosing. nebs prn. saturating 91-93% on 2L NC (home dose is 2 -3L) 5. microcytic anemia- no sign of bleeding. no repeat labs sent today. will check now, check iron studies. 6. - stable. monitoring as outpatient 7. Continuous nicotine dependence- counseled on importance of nicotine cessation as this likely contributed to breathing problems. nicotine patch 8. DVT ppx- hep sq Visit type - Emergency Visit Emergency Visit: Yes ED Registration Date: 05/20/16 Care time: The patient presented to the Emergency Department on the above date and was hospitalized for further evaluation of their emergent condition. - New Patient This patient is new to me today: No - Critical Care Critical Care patient: No - Discharge Referral Referred to [facility] Med P.C.: No
[2016-05-22] MEDS: HEPARIN NA (PORCINE) 5,000 UNITS/ML 1ML VIAL SQ SCH ×2 (11:29→22:33)
[2016-05-22] MEDS: LISINOPRIL 10 MG TABLET (FP) PO SCH (11:29)
[2016-05-22] MEDS: FUROSEMIDE 40 MG/4 ML INJECTABLE VIAL IVPB SCH (11:29)
[2016-05-22] MEDS: RANOLAZINE E.R. 500 MG TABLET (FP) PO SCH ×2 (11:29→22:32)
[2016-05-22] MEDS: CHOLECALCIFEROL (VITAMIN D3) 1,000 UNIT TABLET (FP) PO SCH (11:30)
[2016-05-22] MEDS: ISOSORBIDE MONONITRATE 30 MG TAB.SR.24H (FP) PO SCH (11:30)
[2016-05-22] MEDS: ASPIRIN 81 MG CHEWABLE TABLETS PO SCH (11:30)
[2016-05-22] MEDS: NICOTINE 14 MG/24 HOURS TOPICAL PATCH TD SCH (11:30)
[2016-05-22] MEDS: BUDESONIDE/FORMETEROL FUMARATE 160/4.5 mcg INHALER IH SCH ×2 (11:31→22:33)
[2016-05-22] MEDS: VERAPAMIL HCL 120 MG E.R. TABLET PO SCH (11:31)
[2016-05-22 11:46] LABS: MCH 21.2 pg (25.7-33.7); MCHC 30.9 g/dl (32.0-36.0); MEAN CELL VOLUME 68.6 fl (80-96); MEAN PLT VOLUME 8.4 fl (7.5-11.1); PLATELET COUNT 237 K/MM3 (134-434); RDW 22.4 % (11.6-15.6); WHITE BLOOD COUNT 10.4 K/mm3 (4.0-10.0)
--- NOTE | 2016-05-22 12:17 | PN ---
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 (short form) - Note 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: PULMONARY VSS/AFEBRILE ANICTERIC SCATTERED WHEEZE B/L SLIGHTLY IMPROVED S1S2 BS+ NO EDEMA LABS/MEDS/NOTES/IMAGING REVIEWED RECENT TRANS-THORACIC NEEDLE BX LUNG MASS REVEALED GRANULOMA/NO MALIGNANCY BREAST CA COPD/BRONCHOSPASTIC COMPONENT/HOME O2 CHF/LVDD/ELEVATED TROPONIN PLEURAL EFFUSION SHORT COURSE STEROIDS/BRONCHODILATORS/O2 SUPPLEMENTATION AGREE WITH DIURESIS/NA RESTRICTION/CYCLE TROPS/EKG/DVT PROPHYLAXSIS NITRATES/MARIPOSA/VERAPAMIL/CARDIO FOLLOW UP. Jory GHOSH MD Problem List - Problems (1) CHF (congestive heart failure) Code(s): I50.9 - HEART FAILURE, UNSPECIFIED Qualifiers: Congestive heart failure type: diastolic Congestive heart failure chronicity: chronic Qualified Code(s): I50.32 - Chronic diastolic ( congestive) heart failure (2) Acute on chronic respiratory failure with hypoxia Code(s): J96.21 - ACUTE AND CHRONIC RESPIRATORY FAILURE WITH HYPOXIA (3) Breast CA Code(s): C50.919 - MALIGNANT NEOPLASM OF UNSP SITE OF UNSPECIFIED FEMALE BREAST Qualifiers: Laterality: unspecified laterality (4) CAD (coronary artery disease) Code(s): I25.10 - ATHSCL HEART DISEASE OF [place] CORONARY ARTERY W/O ANG PCTRS (5) Pleural effusion Code(s): J90 - PLEURAL EFFUSION, NOT ELSEWHERE CLASSIFIED
[2016-05-22 12:31] LABS: FERRITIN 16.557 ng/ml (6.9-282.5); TROPONIN I 0.07 ng/ml (0.00-0.05)
[2016-05-22] MEDS: guaiFENesin 200 MG/10 ML 10 ML UNIT-DOSE CUPS PO PRN (16:15)
[2016-05-22] MEDS: DOCUSATE SODIUM 100 MG CAPSULE (FP) PO SCH ×2 (16:16→22:32)
[2016-05-22] MEDS: ATORVASTATIN CA 40 MG TABLET (FP) PO SCH (22:32)
[2016-05-22] MEDS: SENNOSIDES 8.6MG TABLET (FP) PO SCH (22:32)
[2016-05-23] MEDS: methylPREDNISolone NA SUCC 40 MG/1 ML VIAL IVPB SCH ×3 (01:01→18:52)
[2016-05-23] MEDS: DOCUSATE SODIUM 100 MG CAPSULE (FP) PO SCH ×3 (06:04→21:14)
[2016-05-23] MEDS: ALBUTEROL SO4 2.5/IPRATROPIUM 0.5 INH SOL 3 ML VIAL.NEB. NEB SCH ×3 (06:09→22:23)
[2016-05-23] MEDS: ASPIRIN 81 MG CHEWABLE TABLETS PO SCH (10:21)
[2016-05-23] MEDS: HEPARIN NA (PORCINE) 5,000 UNITS/ML 1ML VIAL SQ SCH ×2 (10:22→21:14)
[2016-05-23] MEDS: LISINOPRIL 10 MG TABLET (FP) PO SCH (10:22)
[2016-05-23] MEDS: RANOLAZINE E.R. 500 MG TABLET (FP) PO SCH ×2 (10:22→21:15)
[2016-05-23] MEDS: CHOLECALCIFEROL (VITAMIN D3) 1,000 UNIT TABLET (FP) PO SCH (10:22)
[2016-05-23] MEDS: PANTOPRAZOLE 40 MG TABLET (FP) PO SCH (10:22)
[2016-05-23] MEDS: NICOTINE 14 MG/24 HOURS TOPICAL PATCH TD SCH ×2 (10:22→10:57)
[2016-05-23] MEDS: guaiFENesin 200 MG/10 ML 10 ML UNIT-DOSE CUPS PO PRN (10:22)
[2016-05-23] MEDS: ISOSORBIDE MONONITRATE 30 MG TAB.SR.24H (FP) PO SCH (10:22)
--- NOTE | 2016-05-23 11:44 | PN ---
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, Physician History of Present Illness: seen and examined today in nad. feeling better but still sob with minimal exertion. - Current Medication List Current Medications: Active Medications Acetaminophen (Tylenol -) 650 mg PO Q4H PRN PRN Reason: FEVER OR PAIN Last Admin: 05/21/16 14:51 Dose: 650 mg Albuterol Sulfate (Ventolin 0.083% Nebulizer Soln -) 1 amp NEB Q4H PRN PRN Reason: SHORT OF BREATH/WHEEZING Albuterol/Ipratropium (Duoneb -) 1 amp NEB TIDR [facility] Last Admin: 05/23/16 06:09 Dose: 1 amp Aspirin (Asa -) 81 mg PO DAILY [facility] Last Admin: 05/23/16 10:21 Dose: 81 mg Atorvastatin Calcium (Lipitor -) 40 mg PO HS [facility] Last Admin: 05/22/16 22:32 Dose: 40 mg Budesonide/Formoterol Fumarate (Symbicort 160/4.5mcg -) 2 puff IH BID [facility] Last Admin: 05/22/16 22:33 Dose: 2 puff Cholecalciferol (Vitamin D3 -) 1,000 unit PO DAILY [facility] Last Admin: 05/23/16 10:22 Dose: 1,000 unit Docusate Sodium (Colace -) 100 mg PO TID [facility] Last Admin: 05/23/16 06:04 Dose: 100 mg Furosemide (Lasix Injection -) 40 mg IVPB DAILY [facility] Last Admin: 05/22/16 11:29 Dose: 40 mg Guaifenesin (Robitussin -) 10 ml PO Q4H PRN PRN Reason: COUGH Last Admin: 05/23/16 10:22 Dose: 10 ml Heparin Sodium (Porcine) (Heparin -) 5,000 unit SQ BID [facility] Last Admin: 05/23/16 10:22 Dose: 5,000 unit Isosorbide Mononitrate (Imdur -) 30 mg PO DAILY [facility] Last Admin: 05/23/16 10:22 Dose: 30 mg Lisinopril (Prinivil) 10 mg PO DAILY [facility] Last Admin: 05/23/16 10:22 Dose: 10 mg Methylprednisolone Sodium Succinate (Solu-Medrol -) 40 mg IVPB Q8H-IV [facility] Last Admin: 05/23/16 01:01 Dose: Not Given Nicotine (Nicoderm Patch -) 14 mg TD DAILY [facility] Last Admin: 05/23/16 10:57 Dose: Not Given Nitroglycerin (Nitrostat -) 0.4 mg SL Q5M PRN PRN Reason: CHEST PAIN Last Admin: 05/22/16 04:53 Dose: 0.4 mg Pantoprazole Sodium (Protonix -) 40 mg PO DAILY [facility] Last Admin: 05/23/16 10:22 Dose: 40 mg Ranolazine (Ranexa -) 500 mg PO BID [facility] Last Admin: 05/23/16 10:22 Dose: 500 mg Senna (Senna -) 2 tab PO HS [facility] Last Admin: 05/22/16 22:32 Dose: 2 tab Verapamil HCl (Calan Sr -) 120 mg PO DAILY [facility] Last Admin: 05/22/16 11:31 Dose: 120 mg - Objective Vital Signs: Vital Signs Temperature 98.2 F 05/23/16 10:00 Pulse Rate 78 05/23/16 10:00 Respiratory Rate 20 05/23/16 10:00 Blood Pressure 148/62 05/23/16 10:00 O2 Sat by Pulse Oximetry (%) 97 05/22/16 21:00 Constitutional: Yes: No Distress, Calm Eyes: Yes: Conjunctiva Clear, EOM Intact, PERRL HENT: Yes: Atraumatic, Normocephalic Neck: Yes: Supple, Trachea Midline Cardiovascular: Yes: Regular Rate and Rhythm, Murmur, S1, S2. No: Bradycardia, Tachycardia, Pulse Irregular, Bruit, JVD, Gallop, Rub, S3, S4, Varicosities Respiratory: Yes: Regular, Wheezes. No: Rales, Rhonchi Gastrointestinal: Yes: Normal Bowel Sounds, Soft. No: Distention, Tenderness Musculoskeletal: Yes: WNL Extremities: Yes: WNL Edema: No Peripheral Pulses WNL: Yes Peripheral Pulses: Left Doralis Pedis: 2+, Right Dorsalis Pedis: 2+ Integumentary: Yes: WNL Neurological: Yes: Alert, Oriented Psychiatric: Yes: Alert, Oriented Labs: CBC, BMP 05/22/16 11:35 05/22/16 06:00 INR, PTT INR 1.13 (0.82-1.09) 05/20/16 07:20 - ....Imaging Chest X-ray: Report Reviewed, Image Reviewed EKG: Report Reviewed, Image Reviewed Other: Report Reviewed, Image Reviewed Assessment/Plan IMP: Chest pain, h/o CAD w/ prior coronary intervention years ago, has refused cardiac cath on multiple recent occasions History breast cancer, lung mass with negative bx COPD, chronic with chronic hypoxemia Mild PSVT Chronic diastolic CHF Carotid stenosis s/p CEA REC: SOB-primarily AE COPD, possible component of acute on chronic diastolic CHF -currently overall euvolemic -can transition to po Lasix -steroids as per pulmonary -recent lung mass bx c/w granuloma not malignancy -pulmonary follow up Chest pain-chronic angina, multiple admissions for similar sx -refusing cardiac cath, understands the risks/benefits/alternatives -cardiac enzymes not sig elevated -Echo 02/17 showed normal LV systolic function, mod AR, mild , no sig change from prior echo -cont ASA 81mg daily -cont Imdur 30mg daily and Ranexa 500mg bid with plan to upitrate as needed -cont NTG SL prn -cont Lipitor 40mg qhs -cont Lisinopril 10mg daily -no further planned inpatient cardiac work up at this time PSVT -cont verapamil -cannot use bblocker due to COPD
--- NOTE | 2016-05-23 12:06 | PN ---
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 (short form) - Note 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: PULMONARY Still with shortness of breath, cough productive of green sputum and wheezing. Last Vital Signs Temp Pulse Resp BP Pulse Ox 98.2 F 78 20 148/62 97 05/23/16 10:00 05/23/16 10:00 05/23/16 10:00 05/23/16 10:00 05/22/16 21:00 Gen: NAD at rest Heart: RRR Lung: bilateral wheezes, rhonchi Abd: soft, nontender Ext: no edema CBC, BMP 05/22/16 11:35 05/22/16 06:00 Active Medications Acetaminophen (Tylenol -) 650 mg PO Q4H PRN PRN Reason: FEVER OR PAIN Last Admin: 05/21/16 14:51 Dose: 650 mg Albuterol Sulfate (Ventolin 0.083% Nebulizer Soln -) 1 amp NEB Q4H PRN PRN Reason: SHORT OF BREATH/WHEEZING Albuterol/Ipratropium (Duoneb -) 1 amp NEB TIDR [facility] Last Admin: 05/23/16 06:09 Dose: 1 amp Aspirin (Asa -) 81 mg PO DAILY [facility] Last Admin: 05/23/16 10:21 Dose: 81 mg Atorvastatin Calcium (Lipitor -) 40 mg PO HS [facility] Last Admin: 05/22/16 22:32 Dose: 40 mg Budesonide/Formoterol Fumarate (Symbicort 160/4.5mcg -) 2 puff IH BID [facility] Last Admin: 05/22/16 22:33 Dose: 2 puff Cholecalciferol (Vitamin D3 -) 1,000 unit PO DAILY [facility] Last Admin: 05/23/16 10:22 Dose: 1,000 unit Docusate Sodium (Colace -) 100 mg PO TID [facility] Last Admin: 05/23/16 06:04 Dose: 100 mg Furosemide (Lasix Injection -) 40 mg IVPB DAILY [facility] Last Admin: 05/22/16 11:29 Dose: 40 mg Guaifenesin (Robitussin -) 10 ml PO Q4H PRN PRN Reason: COUGH Last Admin: 05/23/16 10:22 Dose: 10 ml Heparin Sodium (Porcine) (Heparin -) 5,000 unit SQ BID [facility] Last Admin: 05/23/16 10:22 Dose: 5,000 unit Isosorbide Mononitrate (Imdur -) 30 mg PO DAILY [facility] Last Admin: 05/23/16 10:22 Dose: 30 mg Lisinopril (Prinivil) 10 mg PO DAILY [facility] Last Admin: 05/23/16 10:22 Dose: 10 mg Methylprednisolone Sodium Succinate (Solu-Medrol -) 40 mg IVPB Q8H-IV [facility] Last Admin: 05/23/16 01:01 Dose: Not Given Nicotine (Nicoderm Patch -) 14 mg TD DAILY [facility] Last Admin: 05/23/16 10:57 Dose: Not Given Nitroglycerin (Nitrostat -) 0.4 mg SL Q5M PRN PRN Reason: CHEST PAIN Last Admin: 05/22/16 04:53 Dose: 0.4 mg Pantoprazole Sodium (Protonix -) 40 mg PO DAILY [facility] Last Admin: 05/23/16 10:22 Dose: 40 mg Ranolazine (Ranexa -) 500 mg PO BID [facility] Last Admin: 05/23/16 10:22 Dose: 500 mg Senna (Senna -) 2 tab PO HS [facility] Last Admin: 05/22/16 22:32 Dose: 2 tab Verapamil HCl (Calan Sr -) 120 mg PO DAILY [facility] Last Admin: 05/22/16 11:31 Dose: 120 mg A/P Acute COPD Exacerbation Acute on Chronic Hypoxic Respiratory Failure Acute on Chronic LV Diastolic Heart Failure +Troponins h/o Breast Ca Lung Nodules s/p recent CT guided needle biopsy revealing granulomatous disease - continue medrol at current dose - inhaled bronchodilators standing and PRN - O2 to keep Spo2 >90% - lasix - monitor urine output, creatinine - DVT prophylaxis - outpt monitoring of lung nodules
[2016-05-23] MEDS: BUDESONIDE/FORMETEROL FUMARATE 160/4.5 mcg INHALER IH SCH ×2 (13:13→21:19)
[2016-05-23] MEDS ORDERED: PT OWN MED DRAWER 7, Y5N ONE (13:15)
[2016-05-23] MEDS: VERAPAMIL HCL 120 MG E.R. TABLET PO SCH (13:16)
[2016-05-23] MEDS: FUROSEMIDE 40 MG/4 ML INJECTABLE VIAL IVPB SCH (13:17)
[2016-05-23] MEDS ORDERED: FUROSEMIDE 40 MG TABLET (FP) PO ONE (13:19)
--- NOTE | 2016-05-23 13:23 | PN ---
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 (short form) - Note 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: continues to have on/off chest pain similar in nature that she always experiences. no change in quality. states she has non productive cough. able to ambulate to the bathroom but unable to walk further than that due to dyspnea. denies palpitaitons, N/v/C/D, fever, chills, small BM yesterday Current Medications Generic Name Dose Route Start Last Admin Trade Name Freq PRN Reason Stop Dose Admin Acetaminophen 650 mg 05/21/16 13:55 05/21/16 14:51 Tylenol - PO 650 mg Q4H PRN Administration FEVER OR PAIN Albuterol Sulfate 1 amp 05/20/16 16:07 Ventolin 0.083% Nebulizer Soln - NEB Q4H PRN SHORT OF BREATH/WHEEZING Albuterol/Ipratropium 1 amp 05/20/16 22:00 05/23/16 06:09 Duoneb - NEB 1 amp TIDR YEISON Administration Aspirin 81 mg 05/20/16 13:00 05/23/16 10:21 Asa - PO 81 mg DAILY YEISON Administration Atorvastatin Calcium 40 mg 05/20/16 22:00 05/22/16 22:32 Lipitor - PO 40 mg HS YEISON Administration Budesonide/Formoterol Fumarate 2 puff 05/20/16 22:00 05/23/16 13:13 Symbicort 160/4.5mcg - IH 2 puff BID YEISON Administration Cholecalciferol 1,000 unit 05/21/16 10:00 05/23/16 10:22 Vitamin D3 - PO 1,000 unit DAILY YEISON Administration Docusate Sodium 100 mg 05/22/16 14:00 05/23/16 06:04 Colace - PO 100 mg TID YEISON Administration Furosemide 40 mg 05/24/16 10:00 Lasix - PO DAILY YEISON Furosemide 40 mg 05/23/16 13:19 Lasix - PO 05/23/16 13:20 ONCE ONE Guaifenesin 10 ml 05/22/16 11:23 05/23/16 10:22 Robitussin - PO 10 ml Q4H PRN Administration COUGH Heparin Sodium (Porcine) 5,000 unit 05/20/16 22:00 05/23/16 10:22 Heparin - SQ 5,000 unit BID YEISON Administration Isosorbide Mononitrate 30 mg 05/20/16 12:45 05/23/16 10:22 Imdur - PO 30 mg DAILY YEISON Administration Lisinopril 10 mg 05/20/16 11:15 05/23/16 10:22 Prinivil PO 10 mg DAILY YEISON Administration Methylprednisolone Sodium Succinate 40 mg 05/20/16 18:00 05/23/16 13:13 Solu-Medrol - IVPB 40 mg Q8H-IV YEISON Administration Nicotine 14 mg 05/21/16 14:30 05/23/16 10:57 Nicoderm Patch - TD Not Given DAILY YEISON Nitroglycerin 0.4 mg 05/20/16 16:02 05/22/16 04:53 Nitrostat - SL 0.4 mg Q5M PRN Administration CHEST PAIN Pantoprazole Sodium 40 mg 05/20/16 16:15 05/23/16 10:22 Protonix - PO 40 mg DAILY YEISON Administration Ranolazine 500 mg 05/20/16 22:00 05/23/16 10:22 Ranexa - PO 500 mg BID YEISON Administration Senna 2 tab 05/22/16 22:00 05/22/16 22:32 Senna - PO 2 tab HS YEISON Administration Verapamil HCl 120 mg 05/20/16 12:45 05/23/16 13:16 Calan Sr - PO 120 mg DAILY YEISON Administration Last Vital Signs Temp Pulse Resp BP Pulse Ox 98.2 F 78 20 148/62 97 05/23/16 10:00 05/23/16 10:00 05/23/16 10:00 05/23/16 10:00 05/22/16 21:00 Intake & Output 05/20/16 05/21/16 05/22/16 05/23/16 22:59 22:59 23:59 23:59 Intake Total Output Total Balance Weight 118 lb General NAD CV S1 S2 RRR + murmur no rub/gallop no chest wall tenderness Lungs diffuse wheezing and rales no crackles, good inspiratory effort. abdomen- soft NT/ND Extremities no pitting edema CBCD WBC 10.4 K/mm3 (4.0-10.0) H D 05/22/16 11:35 RBC 4.05 M/mm3 (3.60-5.2) 05/22/16 11:35 Hgb 8.6 GM/dL (10.7-15.3) L 05/22/16 11:35 Hct 27.8 % (32.4-45.2) L 05/22/16 11:35 MCV 68.6 fl (80-96) L 05/22/16 11:35 MCHC 30.9 g/dl (32.0-36.0) L 05/22/16 11:35 RDW 22.4 % (11.6-15.6) H 05/22/16 11:35 Plt Count 237 K/MM3 (134-434) 05/22/16 11:35 MPV 8.4 fl (7.5-11.1) 05/22/16 11:35 CMP Sodium 138 mmol/L (136-145) 05/22/16 06:00 Potassium 4.3 mmol/L (3.5-5.1) 05/22/16 06:00 Chloride 97 mmol/L (98-107) L 05/22/16 06:00 Carbon Dioxide 37 mmol/L (21-32) H 05/22/16 06:00 Anion Gap 4 (8-16) L 05/22/16 06:00 BUN 17 mg/dL (7-18) 05/22/16 06:00 Creatinine 0.6 mg/dL (0.55-1.02) 05/22/16 06:00 Creat Clearance w eGFR > 60 (>60) 05/20/16 07:20 Calcium 9.1 mg/dL (8.5-10.1) 05/22/16 06:00 Total Bilirubin 0.9 mg/dL (0.2-1.0) D 05/20/16 07:20 AST 50 U/L (15-37) H D 05/20/16 07:20 ALT 24 U/L (12-78) D 05/20/16 07:20 Alkaline Phosphatase 79 U/L (45-117) 05/20/16 07:20 Total Protein 7.1 g/dl (6.4-8.2) 05/20/16 07:20 Albumin 3.1 g/dl (3.4-5.0) L 05/20/16 07:20 A/P 75yo F with PMH HTN. dyslipidemia, COPD on home O2, PSVT, CHF, breast ca presented to the ER and was admitted for further evalutation of their emergent condition 1. Acute on Chronic diastolic CHF- clinically improved. appears euvolemic. will switch to lasix po today (did not receive IV today).trict I&O. daily weights. cardio on board. 2. CP- more likely GI. cardiac markers negative. refusing cath. on PPI/ranexa 3. constipation- small BM yesterday. cont stool softeners. 4. Acute on Chronic COPD-continues to have diffuse wheezing. will continue steroids at current dosing. nebs prn. saturating 91-93% on 2L NC (home dose is 2 -3L) pulmonary on board 5. microcytic anemia-states no BRBPR/melena. had colonoscopy 5 years ago and normal per pt. had FOBT testing last year. not sure why cbc not tested this morning. will check. txn for Hgb <8. iron studies pending. 6. - stable. monitoring as outpatient 7. Continuous nicotine dependence- counseled on importance of nicotine cessation as this likely contributed to breathing problems. nicotine patch 8. DVT ppx- hep sq Visit type - Emergency Visit Emergency Visit: Yes ED Registration Date: 05/20/16 Care time: The patient presented to the Emergency Department on the above date and was hospitalized for further evaluation of their emergent condition. - New Patient This patient is new to me today: No - Critical Care Critical Care patient: No - Discharge Referral Referred to [facility] Med P.C.: No
[2016-05-23] MEDS ORDERED: ALPRAZolam 0.25 MG TABLET PO ONE (14:42)
[2016-05-23] MEDS: ATORVASTATIN CA 40 MG TABLET (FP) PO SCH (21:15)
[2016-05-23] MEDS: SENNOSIDES 8.6MG TABLET (FP) PO SCH (21:16)
[2016-05-24 00:06] LABS: SERUM IRON 11 ug/dL (27-139); TOTAL IRON BINDING CAPACITY 267 ug/dL (250-450); UIBC 256 ug/dL (118-369)
[2016-05-24] MEDS: methylPREDNISolone NA SUCC 40 MG/1 ML VIAL IVPB SCH ×3 (02:59→18:39)
[2016-05-24] MEDS: ACETAMINOPHEN 325 MG TABLET (FP) PO PRN ×3 (04:33→21:38)
[2016-05-24] MEDS: DOCUSATE SODIUM 100 MG CAPSULE (FP) PO SCH ×3 (06:11→21:37)
[2016-05-24] MEDS: ALBUTEROL SO4 2.5/IPRATROPIUM 0.5 INH SOL 3 ML VIAL.NEB. NEB SCH ×3 (06:19→22:50)
[2016-05-24] MEDS ORDERED: INSULIN DETEMIR 100 UNITS/ML MDV SQ ONE (06:42)
[2016-05-24] MEDS ORDERED: INSULIN (NOVOLOG) ASPART 100 UNITS/ML 10ML VIAL ONE (06:42)
[2016-05-24 07:26] LABS: MCH 21.1 pg (25.7-33.7); MCHC 29.9 g/dl (32.0-36.0); MEAN CELL VOLUME 70.4 fl (80-96); MEAN PLT VOLUME 8.7 fl (7.5-11.1); PLATELET COUNT 240 K/MM3 (134-434); RDW 22.7 % (11.6-15.6); WHITE BLOOD COUNT 8.6 K/mm3 (4.0-10.0)
[2016-05-24] MEDS: CHOLECALCIFEROL (VITAMIN D3) 1,000 UNIT TABLET (FP) PO SCH (09:52)
[2016-05-24] MEDS: PANTOPRAZOLE 40 MG TABLET (FP) PO SCH (09:52)
[2016-05-24] MEDS: ISOSORBIDE MONONITRATE 30 MG TAB.SR.24H (FP) PO SCH (09:52)
[2016-05-24] MEDS: ASPIRIN 81 MG CHEWABLE TABLETS PO SCH (09:52)
[2016-05-24] MEDS: RANOLAZINE E.R. 500 MG TABLET (FP) PO SCH ×2 (09:52→21:37)
[2016-05-24] MEDS: LISINOPRIL 10 MG TABLET (FP) PO SCH (09:52)
[2016-05-24] MEDS: HEPARIN NA (PORCINE) 5,000 UNITS/ML 1ML VIAL SQ SCH ×2 (09:53→21:37)
[2016-05-24] MEDS: VERAPAMIL HCL 120 MG E.R. TABLET PO SCH (09:53)
[2016-05-24] MEDS: FUROSEMIDE 40 MG TABLET (FP) PO SCH (09:53)
[2016-05-24] MEDS: NICOTINE 14 MG/24 HOURS TOPICAL PATCH TD SCH (09:53)
[2016-05-24] MEDS: BUDESONIDE/FORMETEROL FUMARATE 160/4.5 mcg INHALER IH SCH ×2 (09:58→21:40)
--- NOTE | 2016-05-24 10:59 | PN ---
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 (short form) - Note 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: PULMONARY Feels about the same. Still with shortness of breath, cough productive of green sputum and wheezing. Last Vital Signs Temp Pulse Resp BP Pulse Ox 97.9 F 79 20 137/60 96 05/24/16 14:48 05/24/16 14:48 05/24/16 14:48 05/24/16 14:48 05/24/16 09:00 Gen: NAD at rest Heart: RRR Lung: bilateral wheezes, rhonchi Abd: soft, nontender Ext: no edema CBC, BMP 05/24/16 05:35 05/22/16 06:00 Active Medications Acetaminophen (Tylenol -) 650 mg PO Q4H PRN PRN Reason: FEVER OR PAIN Last Admin: 05/24/16 15:12 Dose: 650 mg Albuterol Sulfate (Ventolin 0.083% Nebulizer Soln -) 1 amp NEB Q4H PRN PRN Reason: SHORT OF BREATH/WHEEZING Albuterol/Ipratropium (Duoneb -) 1 amp NEB TIDR [facility] Last Admin: 05/24/16 13:30 Dose: 1 amp Aspirin (Asa -) 81 mg PO DAILY [facility] Last Admin: 05/24/16 09:52 Dose: 81 mg Atorvastatin Calcium (Lipitor -) 40 mg PO HS [facility] Last Admin: 05/23/16 21:15 Dose: 40 mg Budesonide/Formoterol Fumarate (Symbicort 160/4.5mcg -) 2 puff IH BID [facility] Last Admin: 05/24/16 09:58 Dose: 2 puff Cholecalciferol (Vitamin D3 -) 1,000 unit PO DAILY [facility] Last Admin: 05/24/16 09:52 Dose: 1,000 unit Docusate Sodium (Colace -) 100 mg PO TID [facility] Last Admin: 05/24/16 14:22 Dose: 100 mg Furosemide (Lasix -) 40 mg PO DAILY [facility] Last Admin: 05/24/16 09:53 Dose: 40 mg Guaifenesin (Robitussin -) 10 ml PO Q4H PRN PRN Reason: COUGH Last Admin: 05/23/16 10:22 Dose: 10 ml Heparin Sodium (Porcine) (Heparin -) 5,000 unit SQ BID [facility] Last Admin: 05/24/16 09:53 Dose: 5,000 unit Isosorbide Mononitrate (Imdur -) 30 mg PO DAILY [facility] Last Admin: 05/24/16 09:52 Dose: Not Given Lisinopril (Prinivil) 10 mg PO DAILY [facility] Last Admin: 05/24/16 09:52 Dose: 10 mg Methylprednisolone Sodium Succinate (Solu-Medrol -) 40 mg IVPB Q8H-IV [facility] Last Admin: 05/24/16 09:53 Dose: 40 mg Nicotine (Nicoderm Patch -) 14 mg TD DAILY [facility] Last Admin: 05/24/16 09:53 Dose: Not Given Nitroglycerin (Nitrostat -) 0.4 mg SL Q5M PRN PRN Reason: CHEST PAIN Last Admin: 05/22/16 04:53 Dose: 0.4 mg Pantoprazole Sodium (Protonix -) 40 mg PO DAILY [facility] Last Admin: 05/24/16 09:52 Dose: 40 mg Ranolazine (Ranexa -) 500 mg PO BID [facility] Last Admin: 05/24/16 09:52 Dose: 500 mg Senna (Senna -) 2 tab PO HS [facility] Last Admin: 05/23/16 21:16 Dose: 2 tab Verapamil HCl (Calan Sr -) 120 mg PO DAILY [facility] Last Admin: 05/24/16 09:53 Dose: 120 mg A/P Acute COPD Exacerbation Acute on Chronic Hypoxic Respiratory Failure Acute on Chronic LV Diastolic Heart Failure +Troponins h/o Breast Ca Lung Nodules s/p recent CT guided needle biopsy revealing granulomatous disease - continue medrol at current dose - inhaled bronchodilators standing and PRN - O2 to keep Spo2 >90% - lasix - monitor urine output, creatinine - DVT prophylaxis - outpt monitoring of lung nodules
--- NOTE | 2016-05-24 14:42 | PN ---
<RafaelkaciCharity santos - Last Filed: 05/24/16 16:40> Physical Exam: SUBJECTIVE: Patient seen and examined by me at bedside. Patient continues to complain of shortness of breath associated with a productive cough with yellow sputum. She also continues to have intermittent chest pain that is similar in nature and has not changed in quality associated with shortness of breath. Patient states she can walk from the bed to the bathroom but experiences dyspnea. Otherwise patient denies fever, chills, nausea, vomiting, diarrhea, abdominal pain, headache. OBJECTIVE: Vital Signs Period Temp Pulse Resp BP Sys/Rasheed Pulse Ox Last 24 Hr 97.9 F-99.3 F 68-87 20-20 118-153/48-69 96-100 GENERAL: The patient is awake, alert, and fully oriented, in no acute distress. LUNGS: Crackles throughout lung rogers bilaterally with rales. No accessory muscle use. HEART: Regular rate and rhythm, S1, S2 without murmur, rub or gallop. ABDOMEN: Soft, nontender, nondistended, no guarding, no rebound, no hepatosplenomegaly, no masses. EXTREMITIES: No Edema Laboratory Results - last 24 hr 05/22/16 05/23/16 05/24/16 11:35 12:21 05:35 WBC 8.6 RBC 4.02 Hgb 8.5 L Hct 28.3 L MCV 70.4 L MCHC 29.9 L RDW 22.7 H Plt Count 240 MPV 8.7 POC Glucometer 141 Iron 11 L TIBC 267 Iron Saturation 4 L Active Medications Generic Name Dose Route Start Last Admin Trade Name Freq PRN Reason Stop Dose Admin Acetaminophen 650 mg 05/21/16 13:55 05/24/16 04:33 Tylenol - PO 650 mg Q4H PRN Administration FEVER OR PAIN Albuterol Sulfate 1 amp 05/20/16 16:07 Ventolin 0.083% Nebulizer Soln - NEB Q4H PRN SHORT OF BREATH/WHEEZING Albuterol/Ipratropium 1 amp 05/20/16 22:00 05/24/16 06:19 Duoneb - NEB 1 amp TIDR [facility] Administration Aspirin 81 mg 05/20/16 13:00 05/24/16 09:52 Asa - PO 81 mg DAILY [facility] Administration Atorvastatin Calcium 40 mg 05/20/16 22:00 05/23/16 21:15 Lipitor - PO 40 mg HS [facility] Administration Budesonide/Formoterol Fumarate 2 puff 05/20/16 22:00 05/24/16 09:58 Symbicort 160/4.5mcg - IH 2 puff BID [facility] Administration Cholecalciferol 1,000 unit 05/21/16 10:00 05/24/16 09:52 Vitamin D3 - PO 1,000 unit DAILY [facility] Administration Docusate Sodium 100 mg 05/22/16 14:00 05/24/16 06:11 Colace - PO 100 mg TID [facility] Administration Furosemide 40 mg 05/24/16 10:00 05/24/16 09:53 Lasix - PO 40 mg DAILY [facility] Administration Guaifenesin 10 ml 05/22/16 11:23 05/23/16 10:22 Robitussin - PO 10 ml Q4H PRN Administration COUGH Heparin Sodium (Porcine) 5,000 unit 05/20/16 22:00 05/24/16 09:53 Heparin - SQ 5,000 unit BID [facility] Administration Isosorbide Mononitrate 30 mg 05/20/16 12:45 05/24/16 09:52 Imdur - PO Not Given DAILY [facility] Lisinopril 10 mg 05/20/16 11:15 05/24/16 09:52 Prinivil PO 10 mg DAILY [facility] Administration Methylprednisolone Sodium Succinate 40 mg 05/20/16 18:00 05/24/16 09:53 Solu-Medrol - IVPB 40 mg Q8H-IV [facility] Administration Nicotine 14 mg 05/21/16 14:30 05/24/16 09:53 Nicoderm Patch - TD Not Given DAILY [facility] Nitroglycerin 0.4 mg 05/20/16 16:02 05/22/16 04:53 Nitrostat - SL 0.4 mg Q5M PRN Administration CHEST PAIN Pantoprazole Sodium 40 mg 05/20/16 16:15 05/24/16 09:52 Protonix - PO 40 mg DAILY [facility] Administration Ranolazine 500 mg 05/20/16 22:00 05/24/16 09:52 Ranexa - PO 500 mg BID [facility] Administration Senna 2 tab 05/22/16 22:00 05/23/16 21:16 Senna - PO 2 tab HS [facility] Administration Verapamil HCl 120 mg 05/20/16 12:45 05/24/16 09:53 Calan Sr - PO 120 mg DAILY [facility] Administration ASSESSMENT/PLAN: Patient is a 75 year old female with a PMHx of HTN, HLD, COPD on home oxygen, PSVT, and diastolic heart failure who presented for shortness of breath and intermittent chest pain associated with right lower extremity edema. Patient admitted for further monitoring and management. Acute on Chronic diastolic CHF -Continue Lasix 40mg PO daily -Continue Ranexa 500mg PO BID -Strict I&O's -Daily weights -Cardiology consult appreciated Acute on Chronic COPD Exacerbation -Continues to have wheezing -Will order humidifier 02 -Continue 2L Oxygen -Continue Symbicort 2 puffs BID -Duoneb TID -Continue Solu-medrol 40mg Q8H -Currently saturating at 93% -Pulmonology consult appreciated Elevated Troponins with Chest Pain -Trended down with last trop 0.07 -Refuses Cardiac catheterization -Continue Ranexa 500mg BID -Continue Protonix 40mg -Continue Nitroglycerin PRN -Continue ASA 81mg dialy PSVT -Continue Verapamil HCl ER 120mg Microcyitc Anemia -Hemoglobin continues to drop with recent one 8.5 -Iron studies ordered -Transfuse if Hgb <8 and symptomatic HTN -Continue Imdur 30mg -Continue Lisinopril 10mg -Continue to monitor BP HLD -Continue Lipitor 40mg Nicotine Dependence -Continue Nicoderm patch 14mg TD F/E/N -On no fluids -Electrolytes wnl -Sodium controlled diet Prophylaxis -Heparin for DVT -Protonix for GI Disposition -Full code -Will begin humidifier 02. Patient likely to remain another night. Visit type - Emergency Visit Emergency Visit: No - New Patient This patient is new to me today: Yes Date on this admission: 05/24/16 - Critical Care Critical Care patient: No <David Holm - Last Filed: 05/24/16 17:07> Physical Exam: 75 year old female with pmh of HTN, HPLD, admitted for acute on chronic COPD exacerbation -still has diffuse wheezing on exam -discussed and examined pt with pulm attending -cont current dose of solumedrol 40 Q8 -cont symbicort, turdoza
[2016-05-24] MEDS: SENNOSIDES 8.6MG TABLET (FP) PO SCH (21:37)
[2016-05-24] MEDS: ATORVASTATIN CA 40 MG TABLET (FP) PO SCH (21:37)
[2016-05-25] MEDS: methylPREDNISolone NA SUCC 40 MG/1 ML VIAL IVPB SCH ×3 (01:14→18:16)
[2016-05-25] MEDS: ACETAMINOPHEN 325 MG TABLET (FP) PO PRN ×2 (05:58→10:32)
[2016-05-25] MEDS: DOCUSATE SODIUM 100 MG CAPSULE (FP) PO SCH ×3 (05:58→21:58)
[2016-05-25] MEDS: ALBUTEROL SO4 2.5/IPRATROPIUM 0.5 INH SOL 3 ML VIAL.NEB. NEB SCH ×3 (06:47→22:15)
[2016-05-25 07:59] LABS: MCH 21.3 pg (25.7-33.7); MCHC 30.3 g/dl (32.0-36.0); MEAN CELL VOLUME 70.2 fl (80-96); MEAN PLT VOLUME 8.6 fl (7.5-11.1); PLATELET COUNT 222 K/MM3 (134-434); RDW 22.3 % (11.6-15.6); WHITE BLOOD COUNT 8.8 K/mm3 (4.0-10.0)
--- NOTE | 2016-05-25 09:41 | PN ---
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, Physician Chief Complaint: sitting up no distress - Current Medication List Current Medications: Active Medications Acetaminophen (Tylenol -) 650 mg PO Q4H PRN PRN Reason: FEVER OR PAIN Last Admin: 05/25/16 05:58 Dose: 650 mg Albuterol Sulfate (Ventolin 0.083% Nebulizer Soln -) 1 amp NEB Q4H PRN PRN Reason: SHORT OF BREATH/WHEEZING Albuterol/Ipratropium (Duoneb -) 1 amp NEB TIDR [facility] Last Admin: 05/25/16 06:47 Dose: 1 amp Aspirin (Asa -) 81 mg PO DAILY [facility] Last Admin: 05/24/16 09:52 Dose: 81 mg Atorvastatin Calcium (Lipitor -) 40 mg PO HS [facility] Last Admin: 05/24/16 21:37 Dose: 40 mg Budesonide/Formoterol Fumarate (Symbicort 160/4.5mcg -) 2 puff IH BID [facility] Last Admin: 05/24/16 21:40 Dose: 2 puff Cholecalciferol (Vitamin D3 -) 1,000 unit PO DAILY [facility] Last Admin: 05/24/16 09:52 Dose: 1,000 unit Docusate Sodium (Colace -) 100 mg PO TID [facility] Last Admin: 05/25/16 05:58 Dose: 100 mg Furosemide (Lasix -) 40 mg PO DAILY [facility] Last Admin: 05/24/16 09:53 Dose: 40 mg Guaifenesin (Robitussin -) 10 ml PO Q4H PRN PRN Reason: COUGH Last Admin: 05/23/16 10:22 Dose: 10 ml Heparin Sodium (Porcine) (Heparin -) 5,000 unit SQ BID [facility] Last Admin: 05/24/16 21:37 Dose: 5,000 unit Isosorbide Mononitrate (Imdur -) 30 mg PO DAILY [facility] Last Admin: 05/24/16 09:52 Dose: Not Given Lisinopril (Prinivil) 10 mg PO DAILY [facility] Last Admin: 05/24/16 09:52 Dose: 10 mg Methylprednisolone Sodium Succinate (Solu-Medrol -) 40 mg IVPB Q8H-IV [facility] Last Admin: 05/25/16 01:14 Dose: 40 mg Nicotine (Nicoderm Patch -) 14 mg TD DAILY [facility] Last Admin: 05/24/16 09:53 Dose: Not Given Nitroglycerin (Nitrostat -) 0.4 mg SL Q5M PRN PRN Reason: CHEST PAIN Last Admin: 05/22/16 04:53 Dose: 0.4 mg Pantoprazole Sodium (Protonix -) 40 mg PO DAILY [facility] Last Admin: 05/24/16 09:52 Dose: 40 mg Ranolazine (Ranexa -) 500 mg PO BID [facility] Last Admin: 05/24/16 21:37 Dose: 500 mg Senna (Senna -) 2 tab PO HS [facility] Last Admin: 05/24/16 21:37 Dose: Not Given Verapamil HCl (Calan Sr -) 120 mg PO DAILY [facility] Last Admin: 05/24/16 09:53 Dose: 120 mg - Objective Vital Signs: Vital Signs Temperature 98 F 05/25/16 05:53 Pulse Rate 71 05/25/16 05:53 Respiratory Rate 20 05/25/16 05:53 Blood Pressure 121/83 05/25/16 05:53 O2 Sat by Pulse Oximetry (%) 97 05/24/16 20:36 Constitutional: Yes: No Distress, Calm Cardiovascular: Yes: Regular Rate and Rhythm Respiratory: Yes: Other (scattered expiratory rhonchi and mild expiratory wheezing) Edema: Yes Edema: LLE: 1+, RLE: 1+ Neurological: Yes: Alert, Oriented ...Motor Strength: WNL Labs: CBC, BMP 05/25/16 06:30 05/22/16 06:00 INR, PTT INR 1.13 (0.82-1.09) 05/20/16 07:20 Microbiology 05/20/16 07:20 Blood - Peripheral Venous Blood Culture - Final NO GROWTH AFTER 5 DAYS INCUBATION 05/20/16 07:40 Blood - Peripheral Venous Blood Culture - Preliminary NO GROWTH OBTAINED AFTER 96 HOURS, INCUBATION TO CONTINUE FOR 1 DAYS. Laboratory Tests 05/22/16 05/25/16 11:35 06:30 WBC 8.8 Hgb 8.1 L Plt Count 222 Troponin I 0.07 H Assessment/Plan IMP: Chest pain, h/o CAD w/ prior coronary intervention years ago, has refused cardiac cath on multiple recent occasions History breast cancer, lung mass with negative bx COPD, chronic with chronic hypoxemia Mild PSVT Chronic diastolic CHF Carotid stenosis s/p CEA REC: SOB-primarily AE COPD, possible component of acute on chronic diastolic CHF -currently overall euvolemic -can transition to po Lasix -steroids as per pulmonary -recent lung mass bx c/w granuloma not malignancy -pulmonary following Chest pain-chronic angina, multiple admissions for similar sx -refusing cardiac cath, understands the risks/benefits/alternatives -cardiac enzymes not sig elevated -Echo 02/17 showed normal LV systolic function, mod AR, mild , no sig change from prior echo -cont ASA 81mg daily -cont Imdur 30mg daily and Ranexa 500mg bid with plan to upitrate as needed -cont NTG SL prn -cont Lipitor 40mg qhs -cont Lisinopril 10mg daily -no further planned inpatient cardiac work up at this time PSVT -cont verapamil -cannot use bblocker due to COPD
[2016-05-25] MEDS: LISINOPRIL 10 MG TABLET (FP) PO SCH (10:33)
[2016-05-25] MEDS: NICOTINE 14 MG/24 HOURS TOPICAL PATCH TD SCH (10:33)
[2016-05-25] MEDS: FUROSEMIDE 40 MG TABLET (FP) PO SCH (10:33)
[2016-05-25] MEDS: RANOLAZINE E.R. 500 MG TABLET (FP) PO SCH ×2 (10:33→21:58)
[2016-05-25] MEDS: PANTOPRAZOLE 40 MG TABLET (FP) PO SCH (10:33)
[2016-05-25] MEDS: CHOLECALCIFEROL (VITAMIN D3) 1,000 UNIT TABLET (FP) PO SCH (10:33)
[2016-05-25] MEDS: ISOSORBIDE MONONITRATE 30 MG TAB.SR.24H (FP) PO SCH (10:34)
[2016-05-25] MEDS: ASPIRIN 81 MG CHEWABLE TABLETS PO SCH (10:34)
[2016-05-25] MEDS: VERAPAMIL HCL 120 MG E.R. TABLET PO SCH (10:34)
[2016-05-25] MEDS: HEPARIN NA (PORCINE) 5,000 UNITS/ML 1ML VIAL SQ SCH ×2 (10:34→21:58)
[2016-05-25 10:37] LABS: HYPOCHROMIA 2+
[2016-05-25] MEDS: BUDESONIDE/FORMETEROL FUMARATE 160/4.5 mcg INHALER IH SCH ×2 (10:37→22:03)
[2016-05-25 10:38] LABS: ANISOCYTOSIS 2+; MICROCYTOSIS 1+; TARGET CELLS FEW
--- NOTE | 2016-05-25 11:58 | PN ---
Physical Exam: SUBJECTIVE: Patient seen and examined at bedside. No overnight events. No new complaints. Breathing has improved slightly. Continues to have sinus congestion. Denies CP, STOREY, abd. pain, n/v. OBJECTIVE: Vital Signs Period Temp Pulse Resp BP Sys/Rasheed Pulse Ox Last 24 Hr 97.8 F-98 F 71-79 20-20 121-143/51-83 97 GENERAL: AAOx3 , NAD HEAD: NC/AT EYES: PERRL, conjunctiva clear. No ptosis. ENT: moist mucous membranes. NECK: supple no JVD LUNGS: Diminished breath sounds bilat. >R , Scattered expiratory wheezing bilat. HEART: RRR, Norm. S1, S2 without murmur, rub or gallop. ABDOMEN: Soft, nontender, nondistended, normoactive bowel sounds EXTREMITIES: 2+ pulses, warm, well-perfused, 1+ bilat. LE edema. NEUROLOGICAL: Normal speech, gait not observed. PSYCH: Normal mood, normal affect. SKIN: Warm, dry, normal turgor, no rashes or lesions noted Laboratory Results - last 24 hr 05/24/16 05/24/16 05/25/16 06:00 06:00 06:30 WBC 8.8 RBC 3.82 Hgb 8.1 L Hct 26.8 L MCV 70.2 L MCHC 30.3 L RDW 22.3 H Plt Count 222 MPV 8.6 Hypochromic-Microcytic 2+ Anisocytosis 2+ Microcytosis 1+ Macrocytosis Few Target Cells Few Retic Count 1.92 H Ferritin 16.670 Active Medications Generic Name Dose Route Start Last Admin Trade Name Freq PRN Reason Stop Dose Admin Acetaminophen 650 mg 05/21/16 13:55 05/25/16 10:32 Tylenol - PO 650 mg Q4H PRN Administration FEVER OR PAIN Albuterol Sulfate 1 amp 05/20/16 16:07 Ventolin 0.083% Nebulizer Soln - NEB Q4H PRN SHORT OF BREATH/WHEEZING Albuterol/Ipratropium 1 amp 05/20/16 22:00 05/25/16 06:47 Duoneb - NEB 1 amp TIDR YEISON Administration Aspirin 81 mg 05/20/16 13:00 05/25/16 10:34 Asa - PO 81 mg DAILY [facility] Administration Atorvastatin Calcium 40 mg 05/20/16 22:00 05/24/16 21:37 Lipitor - PO 40 mg HS [facility] Administration Budesonide/Formoterol Fumarate 2 puff 05/20/16 22:00 05/25/16 10:37 Symbicort 160/4.5mcg - IH 2 puff BID [facility] Administration Cholecalciferol 1,000 unit 05/21/16 10:00 05/25/16 10:33 Vitamin D3 - PO 1,000 unit DAILY [facility] Administration Docusate Sodium 100 mg 05/22/16 14:00 05/25/16 05:58 Colace - PO 100 mg TID [facility] Administration Furosemide 40 mg 05/24/16 10:00 05/25/16 10:33 Lasix - PO 40 mg DAILY [facility] Administration Guaifenesin 10 ml 05/22/16 11:23 05/23/16 10:22 Robitussin - PO 10 ml Q4H PRN Administration COUGH Heparin Sodium (Porcine) 5,000 unit 05/20/16 22:00 05/25/16 10:34 Heparin - SQ 5,000 unit BID [facility] Administration Isosorbide Mononitrate 30 mg 05/20/16 12:45 05/25/16 10:34 Imdur - PO 30 mg DAILY [facility] Administration Lisinopril 10 mg 05/20/16 11:15 05/25/16 10:33 Prinivil PO 10 mg DAILY [facility] Administration Methylprednisolone Sodium Succinate 40 mg 05/20/16 18:00 05/25/16 10:34 Solu-Medrol - IVPB 40 mg Q8H-IV [facility] Administration Nicotine 14 mg 05/21/16 14:30 05/25/16 10:33 Nicoderm Patch - TD Not Given DAILY [facility] Nitroglycerin 0.4 mg 05/20/16 16:02 05/22/16 04:53 Nitrostat - SL 0.4 mg Q5M PRN Administration CHEST PAIN Pantoprazole Sodium 40 mg 05/20/16 16:15 05/25/16 10:33 Protonix - PO 40 mg DAILY [facility] Administration Ranolazine 500 mg 05/20/16 22:00 05/25/16 10:33 Ranexa - PO 500 mg BID [facility] Administration Senna 2 tab 05/22/16 22:00 05/24/16 21:37 Senna - PO Not Given HS [facility] Verapamil HCl 120 mg 05/20/16 12:45 03/15/17 10:34 Calan Sr - PO 120 mg DAILY [facility] Administration ASSESSMENT/PLAN: 75 yo F with PMHx of COPD, CHF, and h/o Lung nodule admitted for acute exacerbation of CHF and COPD. Problem List - Problems (1) Acute on chronic respiratory failure with hypoxia Assessment/Plan: * breathing slighly better but continues to have wheezing * Supplemental O2 via NC @ 2L - maintain SpO2 >90% * Continue Solu-medrol 40mg Q8H * Symbicort 2 puffs BID * Duoneb TID * humidified 02 of little benefit (2) Acute on chronic diastolic CHF (congestive heart failure) Assessment/Plan: * Lasix 40mg PO daily * Ranexa 500mg PO BID * Strict I&O's * Daily weights (3) PSVT (paroxysmal supraventricular tachycardia) Assessment/Plan: * Verapamil HCl ER 120mg Code(s): I47.1 - SUPRAVENTRICULAR TACHYCARDIA (4) HTN (hypertension) Assessment/Plan: * Continue Lisinopril and Lasix * Monitor BP Qualifiers: Hypertension type: essential hypertension Qualified Code(s): I10 - Essential (primary) hypertension (5) HLD (hyperlipidemia) Assessment/Plan: * Lipitor 40mg HS (6) Pulmonary nodules Assessment/Plan: * recent CT guided needle biopsy revealing granulomatous disease * Outpatient f/u (7) DVT prophylaxis Assessment/Plan: * Heparin SQ 5000 U BID. Visit type - Emergency Visit Emergency Visit: Yes ED Registration Date: 05/20/16 Care time: The patient presented to the Emergency Department on the above date and was hospitalized for further evaluation of their emergent condition. - New Patient This patient is new to me today: Yes Date on this admission: 05/25/16 - Critical Care Critical Care patient: No
--- NOTE | 2016-05-25 13:50 | PN ---
<CeceliajenifferRamses - Last Filed: 05/25/16 14:02> Physical Exam: SUBJECTIVE: Patient seen and examined Pt is fully oriented, awake, alert Very pleasant Minimal Sob at rest which worsen on exertion Orthopnea unable to ambulate to bathroom due to SOB yellow productive cough in am OBJECTIVE: Vital Signs Period Temp Pulse Resp BP Sys/Rasheed Pulse Ox Last 24 Hr 97.8 F-98 F 71-80 20-20 121-143/51-83 97-97 GENERAL: Awake, alert, and fully oriented, in no minimal distress. HEAD: Normal with no signs of trauma. EARS, NOSE, THROAT: Ears normal, nares patent, oropharynx clear without exudates. Moist mucous membranes. LUNGS: Breath sounds equal, scattered ronchi, Exp wheezes. and no crackles. No accessory muscle use. HEART: Regular rate and rhythm, normal S1 and S2 with systolic murmur, rub or gallop. ABDOMEN: Soft, nontender, not distended, normoactive bowel sounds, no guarding, no rebound, no masses. No hepatomegaly or splenomegaly. MUSCULOSKELETAL: Normal range of motion at all joints. No bony deformities or tenderness. No CVA tenderness. UPPER EXTREMITIES: 2+ pulses, warm, well-perfused. No cyanosis. No clubbing. Cap refill <2 seconds.No peripheral edema. LOWER EXTREMITIES: 2+ pulses, warm, well-perfused. No calf tenderness. No peripheral edema. Right lower ext edema 1+, left lower ext edema 1+. NEUROLOGICAL: Normal speech. Normal gait. PSYCHIATRIC: Cooperative. Good eye contact. Appropriate mood and affect. SKIN: Warm, dry, normal turgor, no rashes or lesions noted. Laboratory Results - last 24 hr 05/24/16 05/24/16 05/25/16 06:00 06:00 06:30 WBC 8.8 RBC 3.82 Hgb 8.1 L Hct 26.8 L MCV 70.2 L MCHC 30.3 L RDW 22.3 H Plt Count 222 MPV 8.6 Hypochromic-Microcytic 2+ Anisocytosis 2+ Microcytosis 1+ Macrocytosis Few Target Cells Few Retic Count 1.92 H Ferritin 16.670 Active Medications Generic Name Dose Route Start Last Admin Trade Name Freq PRN Reason Stop Dose Admin Acetaminophen 650 mg 05/21/16 13:55 05/25/16 10:32 Tylenol - PO 650 mg Q4H PRN Administration FEVER OR PAIN Albuterol Sulfate 1 amp 05/20/16 16:07 Ventolin 0.083% Nebulizer Soln - NEB Q4H PRN SHORT OF BREATH/WHEEZING Albuterol/Ipratropium 1 amp 05/20/16 22:00 05/25/16 06:47 Duoneb - NEB 1 amp TIDR [facility] Administration Aspirin 81 mg 05/20/16 13:00 05/25/16 10:34 Asa - PO 81 mg DAILY [facility] Administration Atorvastatin Calcium 40 mg 05/20/16 22:00 05/24/16 21:37 Lipitor - PO 40 mg HS [facility] Administration Budesonide/Formoterol Fumarate 2 puff 05/20/16 22:00 05/25/16 10:37 Symbicort 160/4.5mcg - IH 2 puff BID [facility] Administration Cholecalciferol 1,000 unit 05/21/16 10:00 05/25/16 10:33 Vitamin D3 - PO 1,000 unit DAILY [facility] Administration Docusate Sodium 100 mg 05/22/16 14:00 05/25/16 05:58 Colace - PO 100 mg TID [facility] Administration Furosemide 40 mg 05/24/16 10:00 05/25/16 10:33 Lasix - PO 40 mg DAILY [facility] Administration Guaifenesin 10 ml 05/22/16 11:23 05/23/16 10:22 Robitussin - PO 10 ml Q4H PRN Administration COUGH Heparin Sodium (Porcine) 5,000 unit 05/20/16 22:00 05/25/16 10:34 Heparin - SQ 5,000 unit BID [facility] Administration Isosorbide Mononitrate 30 mg 05/20/16 12:45 05/25/16 10:34 Imdur - PO 30 mg DAILY [facility] Administration Lisinopril 10 mg 05/20/16 11:15 05/25/16 10:33 Prinivil PO 10 mg DAILY [facility] Administration Methylprednisolone Sodium Succinate 40 mg 05/20/16 18:00 05/25/16 10:34 Solu-Medrol - IVPB 40 mg Q8H-IV [facility] Administration Nicotine 14 mg 05/21/16 14:30 05/25/16 10:33 Nicoderm Patch - TD Not Given DAILY [facility] Nitroglycerin 0.4 mg 05/20/16 16:02 05/22/16 04:53 Nitrostat - SL 0.4 mg Q5M PRN Administration CHEST PAIN Pantoprazole Sodium 40 mg 05/20/16 16:15 05/25/16 10:33 Protonix - PO 40 mg DAILY [facility] Administration Ranolazine 500 mg 05/20/16 22:00 05/25/16 10:33 Ranexa - PO 500 mg BID [facility] Administration Roflumilast 500 mcg 05/25/16 13:45 Daliresp - PO DAILY [facility] Senna 2 tab 05/22/16 22:00 05/24/16 21:37 Senna - PO Not Given HS [facility] Verapamil HCl 120 mg 05/20/16 12:45 05/25/16 10:34 Calan Sr - PO 120 mg DAILY [facility] Administration ASSESSMENT/PLAN: 75 year old female with pmh of HTN, HPLD, COPD presented to the ED with complaint of SOB, chest pain, orthopnea, dyspnea on exacerbation, Lower ext edema with elevated BNP and vascular congestion with pleural effusion on CXR. Pt was found to Have CHF and improved with Lasix and breathing treatment. Acute on Chronic diastolic CHF Still having orthopnea, dyspnea on exertion, unable to walk to bathroom duet to sob improved lower ext edema Continue Lasix 40mg PO Continue Ranexa Acute on Chronic COPD Exacerbation pt is b/l wheezes, ronchi with productive yellow sputum Continue humidifier 02 Continue 2L Oxygen Continue Symbicort 2 puffs BID Duoneb inh TID Continue Solu-medrol 40mg Q8H Daliresp 500mg po Daily Pulmonary on the case Elevated Troponins with Chest Pain (resolved) last trop 0.07 Pt Refuses Cardiac catheterization Continue Ranexa 500mg BID Continue Protonix 40mg Continue Nitroglycerin 0.4 SL PRN Continue ASA 81mg qd PSVT Continue Verapamil HCl ER 120mg Microcyitc Anemia Hemoglobin 8.1, trending down Iron studies showed iron deficiency anemia pattern start Iron supplement Ferrous sulfate 325mg HTN Continue Imdur 30mg po qd Continue Lisinopril 10mg Po qd HLD Continue Lipitor 40mg FEN Fluid: none Electrolytes: No abnormalities Nutrition: Diet diet DVT Prophylaxis Heparin SQ 5000 units BID Protonix po 40 daily for GI Disposition : Full code. keep in medsurrg pending improvement in respiratory status Visit type - Emergency Visit Emergency Visit: Yes ED Registration Date: 05/20/16 Care time: The patient presented to the Emergency Department on the above date and was hospitalized for further evaluation of their emergent condition. - New Patient This patient is new to me today: No - Critical Care Critical Care patient: No - Discharge Referral Referred to [facility] Med P.C.: No <David Holm - Last Filed: 05/25/16 15:22> Physical Exam: ATTENDING PHYSICIAN STATEMENT I saw and evaluated the patient. I reviewed the resident's note and discussed the case with the resident. I agree with the resident's findings and plan as documented. SUBJECTIVE: seen and evaluated at the bedside OBJECTIVE: wheezing improved from yesterday ASSESSMENT AND PLAN: 75 year old female with pmh of HTN, HPLD, admitted for acute on chronic COPD exacerbation wheezing improved from yesterday -cont current dose of solumedrol 40 Q8 -cont symbicort, turdoza -start daliresp -pt complaining of nasal decongestion with thick purulent mucous so will treat for bacterial sinusitis
[2016-05-25] MEDS: NITROGLYCERIN SUBLINGUAL 1/150 0.4 MG TAB SL PRN (14:04)
[2016-05-25] MEDS: ROFLUMILAST 500 MCG TABLET PO SCH (14:23)
--- NOTE | 2016-05-25 15:07 | PN ---
Teaching Attending Note Name of Resident: Ed Jansen ATTENDING PHYSICIAN STATEMENT I saw and evaluated the patient. I reviewed the resident's note and discussed the case with the resident. I agree with the resident's findings and plan as documented. Jory GHOSH MD Problem List - Problems (1) CHF (congestive heart failure) Code(s): I50.9 - HEART FAILURE, UNSPECIFIED Qualifiers: Congestive heart failure type: diastolic Congestive heart failure chronicity: chronic Qualified Code(s): I50.32 - Chronic diastolic ( congestive) heart failure (2) Acute on chronic respiratory failure with hypoxia Code(s): J96.21 - ACUTE AND CHRONIC RESPIRATORY FAILURE WITH HYPOXIA (3) Breast CA Code(s): C50.919 - MALIGNANT NEOPLASM OF UNSP SITE OF UNSPECIFIED FEMALE BREAST Qualifiers: Laterality: unspecified laterality (4) CAD (coronary artery disease) Code(s): I25.10 - ATHSCL HEART DISEASE OF [place] CORONARY ARTERY W/O ANG PCTRS (5) Pleural effusion Code(s): J90 - PLEURAL EFFUSION, NOT ELSEWHERE CLASSIFIED
[2016-05-25] MEDS: AMOX TR/POT CLAV 875MG/125MG TABLETS (FP) PO SCH (18:16)
[2016-05-25] MEDS ORDERED: PROCHLORPERAZINE MALEATE 5 MG TABLET PO ONE (21:44)
[2016-05-25] MEDS: SENNOSIDES 8.6MG TABLET (FP) PO SCH (21:58)
[2016-05-25] MEDS: ATORVASTATIN CA 40 MG TABLET (FP) PO SCH (21:58)
[2016-05-26] MEDS ORDERED: PT OWN MED DRAWER 7, Y5N ONE ×3 (00:25→09:48)
[2016-05-26] MEDS: NITROGLYCERIN SUBLINGUAL 1/150 0.4 MG TAB SL PRN (00:29)
[2016-05-26] MEDS: methylPREDNISolone NA SUCC 40 MG/1 ML VIAL IVPB SCH ×3 (01:12→21:12)
[2016-05-26] MEDS: ACETAMINOPHEN 325 MG TABLET (FP) PO PRN ×2 (03:54→12:51)
[2016-05-26] MEDS: DOCUSATE SODIUM 100 MG CAPSULE (FP) PO SCH ×3 (06:11→21:12)
[2016-05-26 07:45] LABS: MCH 20.9 pg (25.7-33.7); MCHC 29.8 g/dl (32.0-36.0); MEAN CELL VOLUME 70.3 fl (80-96); MEAN PLT VOLUME 8.8 fl (7.5-11.1); PLATELET COUNT 247 K/MM3 (134-434); RDW 22.7 % (11.6-15.6); WHITE BLOOD COUNT 11.6 K/mm3 (4.0-10.0)
[2016-05-26 08:07] LABS: SERUM IRON 15 ug/dL (27-139); TOTAL IRON BINDING CAPACITY 269 ug/dL (250-450); UIBC 254 ug/dL (118-369)
[2016-05-26] MEDS: AMOX TR/POT CLAV 875MG/125MG TABLETS (FP) PO SCH ×2 (08:51→18:16)
--- NOTE | 2016-05-26 09:29 | PN ---
<CeceliajenifferJakobRamses - Last Filed: 05/26/16 13:15> Physical Exam: SUBJECTIVE: Patient seen and examined Pt is awake, alert and fully oriented Pt is complaining of generalized weakness less cough Nasal mucus green/yellow/brown Sob on exertion Dyspnea on exertion C/o Lower ext edema OBJECTIVE: Vital Signs Period Temp Pulse Resp BP Sys/Rasheed Pulse Ox Last 24 Hr 97.9 F-98.8 F 71-85 20-20 100-135/43-61 97-97 GENERAL: Awake, alert, and fully oriented, in minimal distress. HEAD: Normal with no signs of trauma. EARS, NOSE, THROAT: Ears normal, nares patent, oropharynx clear without exudates. Moist mucous membranes. LUNGS: Breath sounds equal, Exp wheezes. and no crackles. No accessory muscle use. HEART: Regular rate and rhythm, normal S1 and S2 with systolic murmur, rub or gallop. ABDOMEN: Soft, nontender, not distended, normoactive bowel sounds, no guarding, no rebound, no masses. No hepatomegaly or splenomegaly. MUSCULOSKELETAL: Normal range of motion at all joints. No bony deformities or tenderness. No CVA tenderness. UPPER EXTREMITIES: 2+ pulses, warm, well-perfused. No cyanosis. No clubbing. Cap refill <2 seconds.No peripheral edema. LOWER EXTREMITIES: 2+ pulses, warm, well-perfused. No calf tenderness. Right lower ext edema 1+, left lower ext edema 1+. NEUROLOGICAL: Normal speech. Normal gait. PSYCHIATRIC: Cooperative. Good eye contact. Appropriate mood and affect. SKIN: Warm, dry, normal turgor, no rashes or lesions noted. Laboratory Results - last 24 hr 05/24/16 05/25/16 05/26/16 06:00 06:30 06:00 WBC 11.6 H D RBC 4.04 Hgb 8.5 L Hct 28.4 L MCV 70.3 L MCHC 29.8 L RDW 22.7 H Plt Count 247 MPV 8.8 Hypochromic-Microcytic 2+ Anisocytosis 2+ Microcytosis 1+ Macrocytosis Few Target Cells Few Iron 15 L TIBC 269 Iron Saturation 6 L Active Medications Generic Name Dose Route Start Last Admin Trade Name Freq PRN Reason Stop Dose Admin Acetaminophen 650 mg 05/21/16 13:55 05/26/16 03:54 Tylenol - PO 650 mg Q4H PRN Administration FEVER OR PAIN Aclidinium [place] 1 puff 05/26/16 10:00 Tudorza - IH BID [facility] Amoxicillin/Clavulanate Potassium 1 tab 05/25/16 17:30 05/26/16 08:51 Augmentin - 875mg Tablet PO 1 tab BID@0800,1730 [facility] Administration Aspirin 81 mg 05/20/16 13:00 05/25/16 10:34 Asa - PO 81 mg DAILY [facility] Administration Atorvastatin Calcium 40 mg 05/20/16 22:00 05/25/16 21:58 Lipitor - PO 40 mg HS [facility] Administration Budesonide/Formoterol Fumarate 2 puff 05/20/16 22:00 05/25/16 22:03 Symbicort 160/4.5mcg - IH 2 puff BID [facility] Administration Cholecalciferol 1,000 unit 05/21/16 10:00 05/25/16 10:33 Vitamin D3 - PO 1,000 unit DAILY [facility] Administration Docusate Sodium 100 mg 05/22/16 14:00 05/26/16 06:11 Colace - PO 100 mg TID [facility] Administration Furosemide 40 mg 05/24/16 10:00 05/25/16 10:33 Lasix - PO 40 mg DAILY [facility] Administration Guaifenesin 10 ml 05/22/16 11:23 05/23/16 10:22 Robitussin - PO 10 ml Q4H PRN Administration COUGH Heparin Sodium (Porcine) 5,000 unit 05/20/16 22:00 05/25/16 21:58 Heparin - SQ 5,000 unit BID [facility] Administration Isosorbide Mononitrate 30 mg 05/20/16 12:45 05/25/16 10:34 Imdur - PO 30 mg DAILY [facility] Administration Lisinopril 10 mg 05/20/16 11:15 05/25/16 10:33 Prinivil PO 10 mg DAILY [facility] Administration Methylprednisolone Sodium Succinate 40 mg 05/20/16 18:00 05/26/16 01:12 Solu-Medrol - IVPB 40 mg Q8H-IV [facility] Administration Nicotine 14 mg 05/21/16 14:30 05/25/16 10:33 Nicoderm Patch - TD Not Given DAILY [facility] Nitroglycerin 0.4 mg 05/20/16 16:02 05/26/16 00:29 Nitrostat - SL 0.4 mg Q5M PRN Administration CHEST PAIN Pantoprazole Sodium 40 mg 05/20/16 16:15 05/25/16 10:33 Protonix - PO 40 mg DAILY [facility] Administration Ranolazine 500 mg 05/20/16 22:00 05/25/16 21:58 Ranexa - PO 500 mg BID [facility] Administration Roflumilast 500 mcg 05/25/16 13:45 05/25/16 14:23 Daliresp - PO 500 mcg DAILY [facility] Administration Senna 2 tab 05/22/16 22:00 05/25/16 21:58 Senna - PO Not Given HS [facility] Verapamil HCl 120 mg 05/20/16 12:45 05/25/16 10:34 Calan Sr - PO 120 mg DAILY [facility] Administration CBC, BMP 05/26/16 06:00 05/22/16 06:00 Microbiology 05/20/16 07:40 Blood - Peripheral Venous Blood Culture - Final NO GROWTH AFTER 5 DAYS INCUBATION 05/20/16 07:20 Blood - Peripheral Venous Blood Culture - Final NO GROWTH AFTER 5 DAYS INCUBATION Laboratory Tests 05/26/16 06:00 WBC 11.6 H D ASSESSMENT/PLAN: 75 year old female with pmh of HTN, HPLD, COPD presented to the ED with complaint of SOB, chest pain, orthopnea, dyspnea on exacerbation, Lower ext edema with elevated BNP and vascular congestion with pleural effusion on CXR. Pt was found to Have CHF and improved with Lasix and breathing treatment. Acute on Chronic diastolic CHF Still having orthopnea, dyspnea on exertion, walked with physical therapy but still having dyspnea improved lower ext edema Continue Lasix 40mg PO Continue Ranexa Acute on Chronic COPD Exacerbation Pt is b/l wheezes, with productive yellow sputum Continue humidifier 02 Continue 2L Oxygen Continue Symbicort 2 puffs BID On Solu-medrol 40mg Q8H Started on Daliresp 500mg po Daily yesterday started on Tudorza inh yesterday Continue inhaled bronchdilators Pulmonary on the case Elevated Troponins with Chest Pain (resolved) last trop 0.07 Pt Refuses Cardiac catheterization Continue Ranexa 500mg BID Continue Protonix 40mg Continue Nitroglycerin 0.4 SL PRN Continue ASA 81mg qd No further cardiac work up. Per cardiology it is ok to DC from their standpoint when pt is stable/improved resp status. PSVT Continue Verapamil HCl ER 120mg Microcyitc Anemia Hemoglobin 8.5, stable Iron studies showed iron deficiency anemia pattern Start Iron supplement HTN Continue Imdur 30mg po qd Continue Lisinopril 10mg Po qd HLD Continue Lipitor 40mg FEN Fluid: none Electrolytes: No abnormalities Nutrition: Diet diet DVT Prophylaxis Heparin SQ 5000 units BID Protonix po 40 daily for GI Disposition : Full code. Keep in medsurg pending improvement in respiratory status Visit type - Emergency Visit Emergency Visit: Yes ED Registration Date: 05/20/16 Care time: The patient presented to the Emergency Department on the above date and was hospitalized for further evaluation of their emergent condition. - New Patient This patient is new to me today: No - Critical Care Critical Care patient: No - Discharge Referral Referred to [facility] No <David Holm - Last Filed: 05/26/16 14:25> Physical Exam: ATTENDING PHYSICIAN STATEMENT I saw and evaluated the patient. I reviewed the resident's note and discussed the case with the resident. I agree with the resident's findings and plan as documented. SUBJECTIVE: seen and evaluated at the bedside OBJECTIVE: wheezing improved from yesterday ASSESSMENT AND PLAN: 75 year old female with pmh of HTN, HPLD, admitted for acute on chronic COPD exacerbation wheezing improved from yesterday -cont current dose of solumedrol 40 Q8; will wait to taper steroids after discussing with pulm attending -cont symbicort, turdoza -started daliresp -pt complaining of nasal decongestion with thick purulent mucous so will treat for bacterial sinusitis
[2016-05-26] MEDS: FUROSEMIDE 40 MG TABLET (FP) PO SCH (10:34)
[2016-05-26] MEDS: PANTOPRAZOLE 40 MG TABLET (FP) PO SCH (10:34)
[2016-05-26] MEDS: CHOLECALCIFEROL (VITAMIN D3) 1,000 UNIT TABLET (FP) PO SCH (10:34)
[2016-05-26] MEDS: ASPIRIN 81 MG CHEWABLE TABLETS PO SCH (10:34)
[2016-05-26] MEDS: LISINOPRIL 10 MG TABLET (FP) PO SCH (10:34)
[2016-05-26] MEDS: RANOLAZINE E.R. 500 MG TABLET (FP) PO SCH ×2 (10:34→21:12)
[2016-05-26] MEDS: ISOSORBIDE MONONITRATE 30 MG TAB.SR.24H (FP) PO SCH (10:34)
[2016-05-26] MEDS: NICOTINE 14 MG/24 HOURS TOPICAL PATCH TD SCH (10:35)
[2016-05-26] MEDS: VERAPAMIL HCL 120 MG E.R. TABLET PO SCH (10:35)
[2016-05-26] MEDS: ROFLUMILAST 500 MCG TABLET PO SCH (10:35)
[2016-05-26] MEDS: HEPARIN NA (PORCINE) 5,000 UNITS/ML 1ML VIAL SQ SCH ×2 (10:35→21:12)
[2016-05-26] MEDS: BUDESONIDE/FORMETEROL FUMARATE 160/4.5 mcg INHALER IH SCH ×2 (10:36→21:14)
--- NOTE | 2016-05-26 11:19 | PN ---
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 (short form) - Note 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: PULMONARY Feels about the same. Still with shortness of breath, cough now nonproductive. Last Vital Signs Temp Pulse Resp BP Pulse Ox 97.9 F 75 20 118/57 97 05/26/16 06:00 05/26/16 06:00 05/26/16 06:00 05/26/16 06:00 05/25/16 20:58 Gen: NAD at rest Heart: RRR Lung: bilateral wheezes, rhonchi but less Abd: soft, nontender Ext: no edema CBC, BMP 05/26/16 06:00 05/22/16 06:00 Active Medications Acetaminophen (Tylenol -) 650 mg PO Q4H PRN PRN Reason: FEVER OR PAIN Last Admin: 05/26/16 03:54 Dose: 650 mg Aclidinium [place] (Tudorza -) 1 puff IH BID [facility] Amoxicillin/Clavulanate Potassium (Augmentin - 875mg Tablet) 1 tab PO BID@0800, 1730 [facility] Last Admin: 05/26/16 08:51 Dose: 1 tab Aspirin (Asa -) 81 mg PO DAILY [facility] Last Admin: 05/26/16 10:34 Dose: 81 mg Atorvastatin Calcium (Lipitor -) 40 mg PO HS [facility] Last Admin: 05/25/16 21:58 Dose: 40 mg Budesonide/Formoterol Fumarate (Symbicort 160/4.5mcg -) 2 puff IH BID [facility] Last Admin: 05/26/16 10:36 Dose: 2 puff Cholecalciferol (Vitamin D3 -) 1,000 unit PO DAILY [facility] Last Admin: 05/26/16 10:34 Dose: 1,000 unit Docusate Sodium (Colace -) 100 mg PO TID [facility] Last Admin: 05/26/16 06:11 Dose: 100 mg Furosemide (Lasix -) 40 mg PO DAILY [facility] Last Admin: 05/26/16 10:34 Dose: 40 mg Guaifenesin (Robitussin -) 10 ml PO Q4H PRN PRN Reason: COUGH Last Admin: 05/23/16 10:22 Dose: 10 ml Heparin Sodium (Porcine) (Heparin -) 5,000 unit SQ BID [facility] Last Admin: 05/26/16 10:35 Dose: 5,000 unit Isosorbide Mononitrate (Imdur -) 30 mg PO DAILY [facility] Last Admin: 05/26/16 10:34 Dose: 30 mg Lisinopril (Prinivil) 10 mg PO DAILY [facility] Last Admin: 05/26/16 10:34 Dose: 10 mg Methylprednisolone Sodium Succinate (Solu-Medrol -) 40 mg IVPB Q8H-IV [facility] Last Admin: 05/26/16 10:35 Dose: 40 mg Nicotine (Nicoderm Patch -) 14 mg TD DAILY [facility] Last Admin: 05/26/16 10:35 Dose: Not Given Nitroglycerin (Nitrostat -) 0.4 mg SL Q5M PRN PRN Reason: CHEST PAIN Last Admin: 05/26/16 00:29 Dose: 0.4 mg Pantoprazole Sodium (Protonix -) 40 mg PO DAILY [facility] Last Admin: 05/26/16 10:34 Dose: 40 mg Ranolazine (Ranexa -) 500 mg PO BID [facility] Last Admin: 05/26/16 10:34 Dose: 500 mg Roflumilast (Daliresp -) 500 mcg PO DAILY [facility] Last Admin: 05/26/16 10:35 Dose: 500 mcg Senna (Senna -) 2 tab PO HS [facility] Last Admin: 05/25/16 21:58 Dose: Not Given Verapamil HCl (Calan Sr -) 120 mg PO DAILY [facility] Last Admin: 05/26/16 10:35 Dose: 120 mg A/P Acute COPD Exacerbation Acute on Chronic Hypoxic Respiratory Failure Acute on Chronic LV Diastolic Heart Failure +Troponins h/o Breast Ca Lung Nodules s/p recent CT guided needle biopsy revealing granulomatous disease - decrease medrol to q12h, if continues to improve will consider changing steroids to PO in AM - inhaled bronchodilators standing and PRN - O2 to keep Spo2 >90% - lasix - monitor urine output, creatinine - DVT prophylaxis - outpt monitoring of lung nodules - check ambulatory SpO2 on room air
--- NOTE | 2016-05-26 11:37 | PN ---
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, Physician History of Present Illness: seen and examined today in nad. no overnight events. no new complaints. still feels sob especially with exertion. - Current Medication List Current Medications: Active Medications Acetaminophen (Tylenol -) 650 mg PO Q4H PRN PRN Reason: FEVER OR PAIN Last Admin: 05/26/16 03:54 Dose: 650 mg Aclidinium [place] (Tudorza -) 1 puff IH BID [facility] Amoxicillin/Clavulanate Potassium (Augmentin - 875mg Tablet) 1 tab PO BID@0800, 1730 [facility] Last Admin: 05/26/16 08:51 Dose: 1 tab Aspirin (Asa -) 81 mg PO DAILY [facility] Last Admin: 05/26/16 10:34 Dose: 81 mg Atorvastatin Calcium (Lipitor -) 40 mg PO HS [facility] Last Admin: 05/25/16 21:58 Dose: 40 mg Budesonide/Formoterol Fumarate (Symbicort 160/4.5mcg -) 2 puff IH BID [facility] Last Admin: 05/26/16 10:36 Dose: 2 puff Cholecalciferol (Vitamin D3 -) 1,000 unit PO DAILY [facility] Last Admin: 05/26/16 10:34 Dose: 1,000 unit Docusate Sodium (Colace -) 100 mg PO TID [facility] Last Admin: 05/26/16 06:11 Dose: 100 mg Furosemide (Lasix -) 40 mg PO DAILY [facility] Last Admin: 05/26/16 10:34 Dose: 40 mg Guaifenesin (Robitussin -) 10 ml PO Q4H PRN PRN Reason: COUGH Last Admin: 05/23/16 10:22 Dose: 10 ml Heparin Sodium (Porcine) (Heparin -) 5,000 unit SQ BID [facility] Last Admin: 05/26/16 10:35 Dose: 5,000 unit Isosorbide Mononitrate (Imdur -) 30 mg PO DAILY [facility] Last Admin: 05/26/16 10:34 Dose: 30 mg Lisinopril (Prinivil) 10 mg PO DAILY [facility] Last Admin: 05/26/16 10:34 Dose: 10 mg Methylprednisolone Sodium Succinate (Solu-Medrol -) 40 mg IVPB Q12H [facility] Nicotine (Nicoderm Patch -) 14 mg TD DAILY [facility] Last Admin: 05/26/16 10:35 Dose: Not Given Nitroglycerin (Nitrostat -) 0.4 mg SL Q5M PRN PRN Reason: CHEST PAIN Last Admin: 05/26/16 00:29 Dose: 0.4 mg Pantoprazole Sodium (Protonix -) 40 mg PO DAILY [facility] Last Admin: 05/26/16 10:34 Dose: 40 mg Ranolazine (Ranexa -) 500 mg PO BID [facility] Last Admin: 05/26/16 10:34 Dose: 500 mg Roflumilast (Daliresp -) 500 mcg PO DAILY [facility] Last Admin: 05/26/16 10:35 Dose: 500 mcg Senna (Senna -) 2 tab PO HS [facility] Last Admin: 05/25/16 21:58 Dose: Not Given Verapamil HCl (Calan Sr -) 120 mg PO DAILY [facility] Last Admin: 05/26/16 10:35 Dose: 120 mg - Objective Vital Signs: Vital Signs Temperature 97.9 F 05/26/16 06:00 Pulse Rate 75 05/26/16 06:00 Respiratory Rate 20 05/26/16 06:00 Blood Pressure 118/57 05/26/16 06:00 O2 Sat by Pulse Oximetry (%) 97 05/25/16 20:58 Constitutional: Yes: Well Nourished, No Distress, Calm Eyes: Yes: Conjunctiva Clear, EOM Intact, PERRL HENT: Yes: Atraumatic, Normocephalic Neck: Yes: Supple, Trachea Midline Cardiovascular: Yes: Regular Rate and Rhythm, Murmur, S1, S2. No: Bradycardia, Tachycardia, Pulse Irregular, Bruit, JVD, Gallop, Rub, S3, S4, Varicosities Respiratory: Yes: Regular, On Nasal O2, Wheezes. No: Rales, Rhonchi Gastrointestinal: Yes: Normal Bowel Sounds, Soft. No: Distention, Tenderness Extremities: Yes: WNL Edema: LLE: Trace Peripheral Pulses: Left Doralis Pedis: 2+, Right Dorsalis Pedis: 2+ Neurological: Yes: Alert, Oriented Psychiatric: Yes: Alert, Oriented Labs: CBC, BMP 05/26/16 06:00 05/22/16 06:00 INR, PTT INR 1.13 (0.82-1.09) 05/20/16 07:20 - ....Imaging Chest X-ray: Report Reviewed, Image Reviewed EKG: Report Reviewed, Image Reviewed Other: Report Reviewed, Image Reviewed Assessment/Plan IMP: Chest pain, h/o CAD w/ prior coronary intervention years ago, has refused cardiac cath on multiple recent occasions History breast cancer, lung mass with negative bx COPD, chronic with chronic hypoxemia Mild PSVT Chronic diastolic CHF Carotid stenosis s/p CEA REC: SOB-primarily AE COPD, possible component of acute on chronic diastolic CHF -remains overall euvolemic, trace LE edema -cont Lasix 40mg po daily -steroids weaning as per pulmonary -recent lung mass bx c/w granuloma not malignancy -ok from a cardiac standpoint for discharge when ready pulmonary mohan Chest pain-chronic angina, multiple admissions for similar sx -refusing cardiac cath, understands the risks/benefits/alternatives -uptitrate Ranexa to 1000mg BID -Echo 02/17 showed normal LV systolic function, mod AR, mild , no sig change from prior echo -cont ASA 81mg daily -cont Imdur 30mg daily -cont NTG SL prn -cont Lipitor 40mg qhs -cont Lisinopril 10mg daily -no further planned inpatient cardiac work up at this time PSVT-adequately controlled -cont verapamil -cannot use bblocker due to COPD
[2016-05-26] MEDS: ACLIDINIUM BROMIDE 400 MCG/INH AERO.POWD IH SCH ×2 (12:52→21:14)
[2016-05-26] MEDS: ATORVASTATIN CA 40 MG TABLET (FP) PO SCH (21:13)
[2016-05-26] MEDS: SENNOSIDES 8.6MG TABLET (FP) PO SCH (21:13)
[2016-05-27] MEDS: ACETAMINOPHEN 325 MG TABLET (FP) PO PRN (04:15)
[2016-05-27] MEDS: DOCUSATE SODIUM 100 MG CAPSULE (FP) PO SCH ×3 (05:10→21:46)
[2016-05-27 07:43] LABS: MCH 20.8 pg (25.7-33.7); MCHC 30.1 g/dl (32.0-36.0); MEAN CELL VOLUME 69.2 fl (80-96); MEAN PLT VOLUME 8.8 fl (7.5-11.1); PLATELET COUNT 237 K/MM3 (134-434); RDW 22.6 % (11.6-15.6); WHITE BLOOD COUNT 11.2 K/mm3 (4.0-10.0)
[2016-05-27] MEDS ORDERED: PT OWN MED DRAWER 7, Y5N ONE (10:32)
[2016-05-27] MEDS: VERAPAMIL HCL 120 MG E.R. TABLET PO SCH (10:54)
[2016-05-27] MEDS: AMOX TR/POT CLAV 875MG/125MG TABLETS (FP) PO SCH ×2 (10:55→17:59)
[2016-05-27] MEDS: ROFLUMILAST 500 MCG TABLET PO SCH (10:55)
[2016-05-27] MEDS: LISINOPRIL 10 MG TABLET (FP) PO SCH (10:55)
[2016-05-27] MEDS: ISOSORBIDE MONONITRATE 30 MG TAB.SR.24H (FP) PO SCH (10:55)
[2016-05-27] MEDS: PANTOPRAZOLE 40 MG TABLET (FP) PO SCH ×2 (10:56→21:46)
[2016-05-27] MEDS: CHOLECALCIFEROL (VITAMIN D3) 1,000 UNIT TABLET (FP) PO SCH (10:56)
[2016-05-27] MEDS: HEPARIN NA (PORCINE) 5,000 UNITS/ML 1ML VIAL SQ SCH ×2 (10:56→21:46)
[2016-05-27] MEDS: NICOTINE 14 MG/24 HOURS TOPICAL PATCH TD SCH ×2 (10:56→11:08)
[2016-05-27] MEDS: FUROSEMIDE 40 MG TABLET (FP) PO SCH (10:56)
[2016-05-27] MEDS: RANOLAZINE E.R. 500 MG TABLET (FP) PO SCH ×2 (10:56→21:45)
[2016-05-27] MEDS: ACLIDINIUM BROMIDE 400 MCG/INH AERO.POWD IH SCH ×2 (10:57→21:45)
[2016-05-27] MEDS: BUDESONIDE/FORMETEROL FUMARATE 160/4.5 mcg INHALER IH SCH ×2 (10:57→21:45)
[2016-05-27] MEDS: methylPREDNISolone NA SUCC 40 MG/1 ML VIAL IVPB SCH (10:57)
[2016-05-27] MEDS: ASPIRIN 81 MG CHEWABLE TABLETS PO SCH (10:57)
--- NOTE | 2016-05-27 11:20 | PN ---
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 (short form) - Note 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: PULMONARY VSS/AFEBRILE ANICTERIC SCATTERED WHEEZE B/L MUCH IMPROVED S1S2 BS+ NO EDEMA LABS/MEDS/NOTES/IMAGING REVIEWED RECENT TRANS-THORACIC NEEDLE BX LUNG MASS REVEALED GRANULOMA/NO MALIGNANCY BREAST CA COPD/BRONCHOSPASTIC COMPONENT/HOME O2 CHF/LVDD/ELEVATED TROPONIN PLEURAL EFFUSION STEROIDS CHANGED TO ORAL/BRONCHODILATORS/O2 SUPPLEMENTATION AGREE WITH DIURESIS/NA RESTRICTION/DVT PROPHYLAXSIS NITRATES/[place]/VERAPAMIL/ DISCHARGE PLANNING Jory GHOSH MD Problem List - Problems (1) CHF (congestive heart failure) Code(s): I50.9 - HEART FAILURE, UNSPECIFIED Qualifiers: Congestive heart failure type: diastolic Congestive heart failure chronicity: chronic Qualified Code(s): I50.32 - Chronic diastolic ( congestive) heart failure (2) Acute on chronic respiratory failure with hypoxia Code(s): J96.21 - ACUTE AND CHRONIC RESPIRATORY FAILURE WITH HYPOXIA (3) Breast CA Code(s): C50.919 - MALIGNANT NEOPLASM OF UNSP SITE OF UNSPECIFIED FEMALE BREAST Qualifiers: Laterality: unspecified laterality (4) CAD (coronary artery disease) Code(s): I25.10 - ATHSCL HEART DISEASE OF [place] CORONARY ARTERY W/O ANG PCTRS (5) Pleural effusion Code(s): J90 - PLEURAL EFFUSION, NOT ELSEWHERE CLASSIFIED
--- NOTE | 2016-05-27 11:35 | PN ---
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, Physician History of Present Illness: seen and examined today in nad. no overnight events. no new complaints. - Current Medication List Current Medications: Active Medications Acetaminophen (Tylenol -) 650 mg PO Q4H PRN PRN Reason: FEVER OR PAIN Last Admin: 05/27/16 04:15 Dose: 650 mg Aclidinium [place] (Tudorza -) 1 puff IH BID [facility] Last Admin: 05/27/16 10:57 Dose: 1 puff Amoxicillin/Clavulanate Potassium (Augmentin - 875mg Tablet) 1 tab PO BID@0800, 1730 [facility] Last Admin: 05/27/16 10:55 Dose: 1 tab Aspirin (Asa -) 81 mg PO DAILY [facility] Last Admin: 05/27/16 10:57 Dose: 81 mg Atorvastatin Calcium (Lipitor -) 40 mg PO HS [facility] Last Admin: 05/26/16 21:13 Dose: 40 mg Budesonide/Formoterol Fumarate (Symbicort 160/4.5mcg -) 2 puff IH BID [facility] Last Admin: 05/27/16 10:57 Dose: 2 puff Cholecalciferol (Vitamin D3 -) 1,000 unit PO DAILY [facility] Last Admin: 05/27/16 10:56 Dose: 1,000 unit Docusate Sodium (Colace -) 100 mg PO TID [facility] Last Admin: 05/27/16 05:10 Dose: 100 mg Furosemide (Lasix -) 40 mg PO DAILY [facility] Last Admin: 05/27/16 10:56 Dose: 40 mg Guaifenesin (Robitussin -) 10 ml PO Q4H PRN PRN Reason: COUGH Last Admin: 05/23/16 10:22 Dose: 10 ml Heparin Sodium (Porcine) (Heparin -) 5,000 unit SQ BID [facility] Last Admin: 05/27/16 10:56 Dose: 5,000 unit Isosorbide Mononitrate (Imdur -) 30 mg PO DAILY [facility] Last Admin: 05/27/16 10:55 Dose: 30 mg Lisinopril (Prinivil) 10 mg PO DAILY [facility] Last Admin: 05/27/16 10:55 Dose: 10 mg Nicotine (Nicoderm Patch -) 14 mg TD DAILY [facility] Last Admin: 05/27/16 11:08 Dose: Not Given Nitroglycerin (Nitrostat -) 0.4 mg SL Q5M PRN PRN Reason: CHEST PAIN Last Admin: 05/26/16 00:29 Dose: 0.4 mg Pantoprazole Sodium (Protonix -) 40 mg PO BID [facility] Last Admin: 05/27/16 10:56 Dose: 40 mg Prednisone (Deltasone -) 30 mg PO DAILY [facility] Ranolazine (Ranexa -) 1,000 mg PO BID [facility] Last Admin: 05/27/16 10:56 Dose: 1,000 mg Roflumilast (Daliresp -) 500 mcg PO DAILY [facility] Last Admin: 05/27/16 10:55 Dose: 500 mcg Senna (Senna -) 2 tab PO HS [facility] Last Admin: 05/26/16 21:13 Dose: Not Given Verapamil HCl (Calan Sr -) 120 mg PO DAILY [facility] Last Admin: 05/27/16 10:54 Dose: 120 mg - Objective Vital Signs: Vital Signs Temperature 97.8 F 05/27/16 10:52 Pulse Rate 75 05/27/16 10:52 Respiratory Rate 18 05/27/16 10:52 Blood Pressure 113/53 05/27/16 10:52 O2 Sat by Pulse Oximetry (%) 98 05/26/16 20:02 Constitutional: Yes: Well Nourished, No Distress, Calm Eyes: Yes: WNL, Conjunctiva Clear, EOM Intact, PERRL HENT: Yes: WNL, Atraumatic, Normocephalic Neck: Yes: WNL, Supple, Trachea Midline Cardiovascular: Yes: Regular Rate and Rhythm, Murmur, S1, S2. No: Bradycardia, Tachycardia, Pulse Irregular, Bruit, JVD, Gallop, Rub, S3, S4, Varicosities Respiratory: Yes: Regular, Wheezes. No: Rales, Rhonchi, SOB Gastrointestinal: Yes: Normal Bowel Sounds, Soft. No: Distention, Tenderness Musculoskeletal: Yes: WNL Extremities: Yes: WNL Edema: No Peripheral Pulses WNL: Yes Peripheral Pulses: Left Doralis Pedis: 2+, Right Dorsalis Pedis: 2+ Integumentary: Yes: WNL Neurological: Yes: Alert, Oriented Psychiatric: Yes: Alert, Oriented Labs: CBC, BMP 05/27/16 06:00 05/22/16 06:00 INR, PTT INR 1.13 (0.82-1.09) 05/20/16 07:20 - ....Imaging Chest X-ray: Report Reviewed, Image Reviewed EKG: Report Reviewed, Image Reviewed Other: Report Reviewed, Image Reviewed Assessment/Plan IMP: Chest pain, h/o CAD w/ prior coronary intervention years ago, has refused cardiac cath on multiple recent occasions History breast cancer, lung mass with negative bx COPD, chronic with chronic hypoxemia Mild PSVT Chronic diastolic CHF Carotid stenosis s/p CEA REC: SOB-primarily AE COPD, possible component of acute on chronic diastolic CHF -remains overall euvolemic -cont Lasix 40mg po daily -steroids as per pulmonary -recent lung mass bx c/w granuloma not malignancy -ok from a cardiac standpoint for discharge when ready pulmonary mohan Chest pain-chronic angina, multiple admissions for similar sx -refusing cardiac cath, understands the risks/benefits/alternatives -cont Ranexa 1000mg BID -Echo 02/17 showed normal LV systolic function, mod AR, mild , no sig change from prior echo -cont ASA 81mg daily -cont Imdur 30mg daily -cont NTG SL prn -cont Lipitor 40mg qhs -cont Lisinopril 10mg daily -no further planned inpatient cardiac work up at this time PSVT-adequately controlled -cont verapamil -cannot use bblocker due to COPD
[2016-05-27] MEDS: predniSONE 10 MG TABLET (UD) PO SCH (17:58)
--- NOTE | 2016-05-27 19:02 | PN ---
Teaching Attending Note Name of Resident: Ramses Buck ATTENDING PHYSICIAN STATEMENT I saw and evaluated the patient. I reviewed the resident's note and discussed the case with the resident. I agree with the resident's findings and plan as documented. SUBJECTIVE: seen and evaluated at the bedside OBJECTIVE: wheezing improved from yesterday ASSESSMENT AND PLAN: 75 year old female with pmh of HTN, HPLD, admitted for acute on chronic COPD exacerbation wheezing improved from yesterday -now on prednisone 30 QD as per pulm recs -cont symbicort, turza -start daliresp -pt complaining of nasal decongestion with thick purulent mucous so will treat for bacterial sinusitis
[2016-05-27] MEDS: ATORVASTATIN CA 40 MG TABLET (FP) PO SCH (21:45)
[2016-05-27] MEDS: SENNOSIDES 8.6MG TABLET (FP) PO SCH (21:46)
--- NOTE | 2016-05-28 03:19 | PN ---
Physical Exam: SUBJECTIVE: Patient seen and examined Pt is feeling slightly better Still complaining of gen weakness Getting fatigued easily Now pt is able to stay without oxygen Less dyspnea on exertion Much less cough Still s/o some lower edema No fever or chills OBJECTIVE: Vital Signs Period Temp Pulse Resp BP Sys/Rasheed Pulse Ox Last 24 Hr 97.8 F-98.4 F 65-115 18-20 96-131/47-60 98-99 GENERAL: Awake, alert, and fully oriented, in no distress. HEAD: Normal with no signs of trauma. EARS, NOSE, THROAT: Ears normal, nares patent, oropharynx clear without exudates. Moist mucous membranes. LUNGS: Breath sounds equal, Exp wheezes. and no crackles. No accessory muscle use. HEART: Regular rate and rhythm, normal S1 and S2 with systolic murmur, rub or gallop. ABDOMEN: Soft, nontender, not distended, normoactive bowel sounds, no guarding, no rebound, no masses. No hepatomegaly or splenomegaly. MUSCULOSKELETAL: Normal range of motion at all joints. No bony deformities or tenderness. No CVA tenderness. UPPER EXTREMITIES: 2+ pulses, warm, well-perfused. No cyanosis. No clubbing. Cap refill <2 seconds.No peripheral edema. LOWER EXTREMITIES: 2+ pulses, warm, well-perfused. No calf tenderness. b/l lower ext edema 1+, NEUROLOGICAL: Normal speech. Normal gait. PSYCHIATRIC: Cooperative. Good eye contact. Appropriate mood and affect. SKIN: Warm, dry, normal turgor, no rashes or lesions noted. Laboratory Results - last 24 hr 05/27/16 06:00 WBC 11.2 H RBC 4.05 Hgb 8.4 L Hct 28.1 L MCV 69.2 L MCHC 30.1 L RDW 22.6 H Plt Count 237 MPV 8.8 Active Medications Generic Name Dose Route Start Last Admin Trade Name Freq PRN Reason Stop Dose Admin Acetaminophen 650 mg 05/21/16 13:55 05/27/16 04:15 Tylenol - PO 650 mg Q4H PRN Administration FEVER OR PAIN Aclidinium [place] 1 puff 05/26/16 10:00 05/27/16 21:45 Tudorza - IH 1 puff BID YEISON Administration Amoxicillin/Clavulanate Potassium 1 tab 05/25/16 17:30 05/27/16 17:59 Augmentin - 875mg Tablet PO 1 tab BID@0800,1730 [facility] Administration Aspirin 81 mg 05/20/16 13:00 05/27/16 10:57 Asa - PO 81 mg DAILY [facility] Administration Atorvastatin Calcium 40 mg 05/20/16 22:00 05/27/16 21:45 Lipitor - PO 40 mg HS YEISON Administration Budesonide/Formoterol Fumarate 2 puff 05/20/16 22:00 05/27/16 21:45 Symbicort 160/4.5mcg - IH 2 puff BID [facility] Administration Cholecalciferol 1,000 unit 05/21/16 10:00 05/27/16 10:56 Vitamin D3 - PO 1,000 unit DAILY [facility] Administration Docusate Sodium 100 mg 05/22/16 14:00 05/27/16 21:46 Colace - PO Not Given TID [facility] Furosemide 40 mg 05/24/16 10:00 05/27/16 10:56 Lasix - PO 40 mg DAILY [facility] Administration Guaifenesin 10 ml 05/22/16 11:23 05/23/16 10:22 Robitussin - PO 10 ml Q4H PRN Administration COUGH Isosorbide Mononitrate 30 mg 05/20/16 12:45 05/27/16 10:55 Imdur - PO 30 mg DAILY [facility] Administration Lisinopril 10 mg 05/20/16 11:15 05/27/16 10:55 Prinivil PO 10 mg DAILY [facility] Administration Nicotine 14 mg 05/21/16 14:30 05/27/16 11:08 Nicoderm Patch - TD Not Given DAILY [facility] Nitroglycerin 0.4 mg 05/20/16 16:02 05/26/16 00:29 Nitrostat - SL 0.4 mg Q5M PRN Administration CHEST PAIN Pantoprazole Sodium 40 mg 05/27/16 10:00 05/27/16 21:46 Protonix - PO 40 mg BID [facility] Administration Prednisone 30 mg 05/27/16 11:30 05/27/16 17:58 Deltasone - PO Not Given DAILY [facility] Ranolazine 1,000 mg 05/26/16 11:37 05/27/16 21:45 Ranexa - PO 1,000 mg BID [facility] Administration Roflumilast 500 mcg 05/25/16 13:45 05/27/16 10:55 Daliresp - PO 500 mcg DAILY [facility] Administration Senna 2 tab 05/22/16 22:00 05/27/16 21:46 Senna - PO Not Given HS [facility] Verapamil HCl 120 mg 05/20/16 12:45 05/27/16 10:54 Calan Sr - PO 120 mg DAILY [facility] Administration CBC, BMP 05/27/16 06:00 05/22/16 06:00 ASSESSMENT/PLAN: 75 year old female with pmh of HTN, HPLD, COPD presented to the ED with complaint of SOB, chest pain, orthopnea, dyspnea on exacerbation, Lower ext edema with elevated BNP and vascular congestion with pleural effusion on CXR. Pt was found to Have CHF and improved with Lasix and breathing treatment. Acute on Chronic COPD Exacerbation Improved b/l wheeze less productive yellow sputum Continue humidifier 02 Continue 2L Oxygen Continue Symbicort 2 puffs BID Switched to PO steroid, Prednisone 30 mg daily On Daliresp 500mg po Daily On Tudorza inh Continue inhaled bronchdilators Pulmonary on the case Acute on Chronic diastolic CHF (resolved) Still having orthopnea, dyspnea on exertion, walked with physical therapy but close to baseline lower ext edema All symptoms are chronic It is ok to DC from cardio standpoint Continue Lasix 40mg PO Continue Ranexa Elevated Troponins with Chest Pain (resolved) last trop 0.07 Pt Refuses Cardiac catheterization Continue Ranexa 500mg BID Continue Protonix 40mgContinue ASA 81mg qd No further cardiac work up. Per cardiology it is ok to DC from their standpoint when pt is stable/improved resp status. PSVT Continue Verapamil HCl ER 120mg Continue Nitroglycerin 0.4 SL PRN Microcyitc Anemia Hemoglobin 8.5, stable Start Iron supplement HTN Continue Imdur 30mg po qd Continue Lisinopril 10mg Po qd HLD Continue Lipitor 40mg FEN Fluid: none Electrolytes: No abnormalities Nutrition: Diet diet DVT Prophylaxis Heparin SQ 5000 units BID Protonix po 40 daily for GI Disposition : Full code. Keep in medsurg. DC in am if further improvement in respiratory status Visit type - Emergency Visit Emergency Visit: Yes ED Registration Date: 05/20/16 Care time: The patient presented to the Emergency Department on the above date and was hospitalized for further evaluation of their emergent condition. - New Patient This patient is new to me today: No - Critical Care Critical Care patient: No - Discharge Referral Referred to [facility] Med P.C.: No
[2016-05-28 05:44] VITALS: TEMP 98.1
[2016-05-28] MEDS: DOCUSATE SODIUM 100 MG CAPSULE (FP) PO SCH (05:54)
--- NOTE | 2016-05-28 07:25 | DS ---
Physical Exam: ATTENDING PHYSICIAN STATEMENT I saw and evaluated the patient. I reviewed the resident's note and discussed the case with the resident. I agree with the resident's findings and plan as documented. SUBJECTIVE: pt left hospital before attending rounds OBJECTIVE: pt left hospital before attending rounds ASSESSMENT AND PLAN: 75 year old female with pmh of HTN, HPLD, admitted for acute on chronic COPD exacerbation wheezing improved from yesterday -now on prednisone 30 QD as per pulm recs -cont symbicort, turdoza -started daliresp -pt complaining of nasal decongestion with thick purulent mucous so will treat for bacterial sinusitis <David Holm - Last Filed: 05/28/16 12:58> Physical Exam: SUBJECTIVE: Patient seen and examined Pt si feeling well ready to go home No s/s of acute distress no fever or chills no cough No n/v OBJECTIVE: Vital Signs Period Temp Pulse Resp BP Sys/Rasheed Pulse Ox Last 24 Hr 97.8 F-98.4 F 69-115 18-20 96-122/47-63 98-99 PHYSICAL EXAM GENERAL: Awake, alert, and fully oriented, in no distress. HEAD: Normal with no signs of trauma. EARS, NOSE, THROAT: Ears normal, nares patent, oropharynx clear without exudates. Moist mucous membranes. LUNGS: Breath sounds equal, Minimal Exp wheezes. and no crackles. No accessory muscle use. HEART: Regular rate and rhythm, normal S1 and S2 with systolic murmur, rub or gallop. ABDOMEN: Soft, nontender, not distended, normoactive bowel sounds, no guarding, no rebound, no masses. No hepatomegaly or splenomegaly. MUSCULOSKELETAL: Normal range of motion at all joints. No bony deformities or tenderness. No CVA tenderness. UPPER EXTREMITIES: 2+ pulses, warm, well-perfused. No cyanosis. No clubbing. Cap refill <2 seconds. No peripheral edema. LOWER EXTREMITIES: 2+ pulses, warm, well-perfused. No calf tenderness. b/l lower ext edema 1+, NEUROLOGICAL: Normal speech. Normal gait. PSYCHIATRIC: Cooperative. Good eye contact. Appropriate mood and affect. SKIN: Warm, dry, normal turgor, no rashes or lesions noted. LABS Laboratory Results - last 24 hr 05/27/16 06:00 WBC 11.2 H RBC 4.05 Hgb 8.4 L Hct 28.1 L MCV 69.2 L MCHC 30.1 L RDW 22.6 H Plt Count 237 MPV 8.8 CBC, BMP 05/27/16 06:00 05/22/16 06:00 Laboratory Tests 05/20/16 05/22/16 05/24/16 07:20 11:35 06:00 Iron 15 L TIBC 269 Iron Saturation 6 L Ferritin Troponin I 0.07 H B-Natriuretic Peptide 9856.36 H 05/24/16 06:00 Iron TIBC Iron Saturation Ferritin 16.670 Troponin I B-Natriuretic Peptide Home Medications Medication Instructions Recorded Cholecalciferol (Vitamin D3) 1,000 unit PO DAILY #30 tab 04/02/13 [Vitamin D3 -] Albuterol Sulfate [Proair Hfa -] 2 inh PO BID 06/14/14 Omeprazole 20 mg PO DAILY 09/29/15 Acetaminophen [Tylenol Extra 500 mg PO QID #90 tablet 02/22/16 Strength] Aspirin [ASA -] 81 mg PO DAILY tab.chew 02/22/16 Atorvastatin Ca [Lipitor] 40 mg PO HS tablet 02/22/16 Budesonide/Formeterol Fumarate 2 puff IH BID inhaler 02/22/16 [SYMBICORT 160/4.5mcg -] Lisinopril [Prinivil] 10 mg PO DAILY tablet 02/22/16 Nitroglycerin Sublingual 0.4 mg SL Q5M PRN #30 tab 02/22/16 [Nitrostat -] Ranolazine [Ranexa -] 500 mg PO BID tab 02/22/16 Aclidinium [place] [Tudorza -] 1 puff IH BID #1 inhaler 05/28/16 Amox-Tr/K Cl [Augmentin 875-125mg 1 tab PO BID@0800,1730 #8 tablet 05/28/16 Tablet -] Docusate Sodium [Colace -] 100 mg PO TID #90 cap 05/28/16 Furosemide [Lasix -] 40 mg PO DAILY #30 tablet 05/28/16 Guaifenesin [Robitussin -] 10 ml PO Q4H PRN #0 05/28/16 Isosorbide Mononitrate [Imdur -] 30 mg PO DAILY #30 tab MDD 1 05/28/16 Nicotine Patch [Nicoderm Patch -] 14 mg TD DAILY #15 patch 05/28/16 Prednisone [Deltasone -] 30 mg PO DAILY #30 tablet 05/28/16 Roflumilast [Daliresp -] 500 mcg PO DAILY #30 tablet 05/28/16 Verapamil HCl ER [Calan Sr -] 120 mg PO DAILY #30 tab 05/28/16 HOSPITAL COURSE: Date of Admission:05/20/16 75 year old female with pmh of HTN, HPLD, COPD presented to the ED with complaint of SOB and chest pain. The shortness of breath started today, she also has orthopnea, dyspnea on exacerbation, unable to walk to bathroom without feeling dyspneic. Pt also has increased lower ext edema right more than left. Pt also has chest pain, started 3 days ago, substernal/epigastric, intermittent dull, sometimes burning, 8/10, increased with swallowing food, does not radiate. Pt with yellow productive cough especially in am upon waking up. Pt admits to having a history of heartburn and sour taste in mouth when eat certain food. No nausea or vomiting. No palpitation, no hemoptysis, no leg pain. No fever, chills. No dizziness or confusion. ER course was notable for: (1) Aspirin, lasix IV (2) CXR, US lower ext 75 year old female with pmh of HTN, HPLD, COPD presented to the ED with complaint of SOB, chest pain, orthopnea, dyspnea on exacerbation, Lower ext edema with elevated BNP and vascular congestion with pleural effusion on CXR. Pt was found to Have CHF and improved with Lasix and breathing treatment. Acute on Chronic diastolic CHF (resolved) Pt has improved greatly but still has some orthopnea, dyspnea on exertion. Pt walked with physical therapy and is at baseline. Some lower ext edema +1. All symptoms are chronic. Pt was treated with Iv lasix. Pt will be DC on Lasix 40mg PO daily. Continue Ranexa. Follow up with technical solution architect Dr Kevin within 1 week. Acute on Chronic COPD Exacerbation. Pt was treated with humidifier 02 2L Oxygen , Symbicort 2 puffs BID, Solumedrol which is now switched to PO steroid, Prednisone 30 mg daily. Pt was also treated with Daliresp 500mg po Daily, On Tudorza inh BID, Plus PRN inhaled bronchdilators. Pt has Improved b/l wheeze less productive yellow sputum. Pulmonary was on the case, She will follow up with Dr Garcia, Dr bernal within 1 week. CAD with Elevated Troponins with Chest Pain. Elevated troponinis and chest pain resolved last trop 0.07 . Pt Refuses Cardiac catheterization Continue Ranexa 500mg BID, Continue Protonix 40mg, Continue ASA 81mg qd.Continue Nitroglycerin 0.4 SL PRN. cardiology was on case Dr Kevin. PSVT Continue Verapamil HCl ER 120mg Microcyitc Anemia stable. Start Iron supplement HTN controlled with Imdur 30mg po qd and Lisinopril 10mg Po qd HLD Continue Lipitor 40mg Pt is follow up with Pulmonology Dr bernal, Dr Garcia, and cardiology Dr Kevin, and PCP within 1 week Date of Discharge: 05/28/16 Minutes to complete discharge: 45 <Ramses Buck - Last Filed: 05/28/16 13:28> Discharge Summary Current Active Problems Pleural effusion (Chronic) - Home Medications Comprehensive Discharge Medication List: Ambulatory Orders Cholecalciferol (Vitamin D3) [Vitamin D3 -] 1,000 unit PO DAILY #30 tab Albuterol Sulfate [Proair Hfa -] 2 inh PO BID 06/14/14 Omeprazole 20 mg PO DAILY 09/29/15 Acetaminophen [Tylenol Extra Strength] 500 mg PO QID #90 tablet 02/22/16 Aspirin [ASA -] 81 mg PO DAILY tab.chew 02/22/16 Atorvastatin Ca [Lipitor] 40 mg PO HS tablet 02/22/16 Budesonide/Formeterol Fumarate [SYMBICORT 160/4.5mcg -] 2 puff IH BID inhaler 02/22/16 Lisinopril [Prinivil] 10 mg PO DAILY tablet 02/22/16 Nitroglycerin Sublingual [Nitrostat -] 0.4 mg SL Q5M PRN #30 tab 02/22/16 Ranolazine [Ranexa -] 500 mg PO BID tab 02/22/16 Aclidinium [place] [Tudorza -] 1 puff IH BID #1 inhaler 05/28/16 Amox-Tr/K Cl [Augmentin 875-125mg Tablet -] 1 tab PO BID@0800,1730 #8 tablet Docusate Sodium [Colace -] 100 mg PO TID #90 cap 05/28/16 Furosemide [Lasix -] 40 mg PO DAILY #30 tablet 05/28/16 Guaifenesin [Robitussin -] 10 ml PO Q4H PRN #0 05/28/16 Isosorbide Mononitrate [Imdur -] 30 mg PO DAILY #30 tab MDD 1 05/28/16 Nicotine Patch [Nicoderm Patch -] 14 mg TD DAILY #15 patch 05/28/16 Prednisone [Deltasone -] 30 mg PO DAILY #30 tablet 05/28/16 Roflumilast [Daliresp -] 500 mcg PO DAILY #30 tablet 05/28/16 Verapamil HCl ER [Calan Sr -] 120 mg PO DAILY #30 tab 05/28/16 <David Holm - Last Filed: 05/28/16 12:58> Reason For Visit: CHF Current Active Problems CHF (congestive heart failure) (Acute) Pleural effusion (Acute) - Home Medications Comprehensive Discharge Medication List: Ambulatory Orders Cholecalciferol (Vitamin D3) [Vitamin D3 -] 1,000 unit PO DAILY #30 tab Albuterol Sulfate [Proair Hfa -] 2 inh PO BID 06/14/14 Omeprazole 20 mg PO DAILY 09/29/15 Diltiazem Cd [Cardizem Cd -] 360 mg PO DAILY #30 cap.cd.24h 10/15/15 Furosemide [Lasix -] 20 mg PO DAILY #30 tablet 12/14/15 Acetaminophen [Tylenol Extra Strength] 500 mg PO QID #90 tablet 02/22/16 Aspirin [ASA -] 81 mg PO DAILY tab.chew 02/22/16 Atorvastatin Ca [Lipitor] 40 mg PO HS tablet 02/22/16 Budesonide/Formeterol Fumarate [SYMBICORT 160/4.5mcg -] 2 puff IH BID inhaler 02/22/16 Lisinopril [Prinivil] 10 mg PO DAILY tablet 02/22/16 Nitroglycerin Sublingual [Nitrostat -] 0.4 mg SL Q5M PRN #30 tab 02/22/16 Ranolazine [Ranexa -] 500 mg PO BID tab 02/22/16 Verapamil HCl ER [Calan Sr -] 180 mg PO DAILY #30 tablet.er 02/22/16 <Ramses Buck - Last Filed: 05/28/16 13:28> Condition: Stable - Instructions Diet, Activity, Other Instructions: Discharge Home Resume home activity Resume home medications except for Diltiazem Lasix has been increased to 40mg Po daily Verapamil has been decreased to 120 mg Po daily Started on Daliresp 500mg po daily Take Augmentin 1 tablet twice per in am and afternoon for 4 days Take prednisone taper, start with 30 mg= 3 tablets per day foe 4 days, then decrease to 20mg= 2 tablets per day for 4 days, then 10 mg= 1 tablet per day for 4 days Started on Tudorza 1 inh BID Colace 1 tablets 3 times per day Started on Imdur 30mg po daily Follow up with primary care physician within 1 week, As per our discussion you can see Dr Bernal as PCP Follow with ovens supervisor within 1 week, Dr Garcia or Dr Bernal Follow up with Swimming Pool Cleaner, Dr Kevin within 1 week If you start have increase cough, sputum production, fever, shortness of breath , fatigue, weight gain, palpitation, severe chest pain, fatigue please come to the emergency department or call your physician . Referrals: Reed Bernal MD [Staff Physician] - Tunde Kevin MD [Staff Physician] - Owen Garcia MD, MD [Staff Physician] - Disposition: HOME This patient is new to me today: No Emergency Visit: Yes ED Registration Date: 05/20/16 Care time: The patient presented to the Emergency Department on the above date and was hospitalized for further evaluation of their emergent condition. Critical Care patient: No - Discharge Referral Referred to [facility] Med P.C.: No <Ramses Buck - Last Filed: 05/28/16 13:28>
[2016-05-28] MEDS: AMOX TR/POT CLAV 875MG/125MG TABLETS (FP) PO SCH (09:24)
[2016-05-28] MEDS: RANOLAZINE E.R. 500 MG TABLET (FP) PO SCH (09:27)
[2016-05-28] MEDS: ASPIRIN 81 MG CHEWABLE TABLETS PO SCH (09:27)
[2016-05-28] MEDS: LISINOPRIL 10 MG TABLET (FP) PO SCH (09:28)
[2016-05-28] MEDS: NICOTINE 14 MG/24 HOURS TOPICAL PATCH TD SCH (09:28)
[2016-05-28] MEDS: predniSONE 10 MG TABLET (UD) PO SCH (09:28)
[2016-05-28] MEDS: CHOLECALCIFEROL (VITAMIN D3) 1,000 UNIT TABLET (FP) PO SCH (09:28)
[2016-05-28] MEDS: PANTOPRAZOLE 40 MG TABLET (FP) PO SCH (09:28)
[2016-05-28] MEDS: ISOSORBIDE MONONITRATE 30 MG TAB.SR.24H (FP) PO SCH (09:28)
[2016-05-28] MEDS: FUROSEMIDE 40 MG TABLET (FP) PO SCH (09:28)
[2016-05-28] MEDS: VERAPAMIL HCL 120 MG E.R. TABLET PO SCH (09:30)
[2016-05-28] MEDS: ROFLUMILAST 500 MCG TABLET PO SCH (09:30)
[2016-05-28] MEDS ORDERED: PT OWN MED DRAWER 7, Y5N ONE (09:30)
[2016-05-28] MEDS: ACLIDINIUM BROMIDE 400 MCG/INH AERO.POWD IH SCH (09:31)
[2016-05-28] MEDS: BUDESONIDE/FORMETEROL FUMARATE 160/4.5 mcg INHALER IH SCH (09:31)
--- NOTE | 2016-05-28 11:50 | PN ---
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, Physician History of Present Illness: seen and examined today in nad. no overnight events. did develop b/l LE edema this am. states she is ready to go home. sob has improved. - Current Medication List Current Medications: Active Medications Acetaminophen (Tylenol -) 650 mg PO Q4H PRN PRN Reason: FEVER OR PAIN Last Admin: 05/27/16 04:15 Dose: 650 mg Aclidinium [place] (Tudorza -) 1 puff IH BID [facility] Last Admin: 05/28/16 09:31 Dose: 1 puff Amoxicillin/Clavulanate Potassium (Augmentin - 875mg Tablet) 1 tab PO BID@0800, 1730 [facility] Last Admin: 05/28/16 09:24 Dose: 1 tab Aspirin (Asa -) 81 mg PO DAILY [facility] Last Admin: 05/28/16 09:27 Dose: 81 mg Atorvastatin Calcium (Lipitor -) 40 mg PO HS [facility] Last Admin: 05/27/16 21:45 Dose: 40 mg Budesonide/Formoterol Fumarate (Symbicort 160/4.5mcg -) 2 puff IH BID [facility] Last Admin: 05/28/16 09:31 Dose: 2 puff Cholecalciferol (Vitamin D3 -) 1,000 unit PO DAILY [facility] Last Admin: 05/28/16 09:28 Dose: 1,000 unit Docusate Sodium (Colace -) 100 mg PO TID [facility] Last Admin: 05/28/16 05:54 Dose: Not Given Furosemide (Lasix -) 40 mg PO DAILY [facility] Last Admin: 05/28/16 09:28 Dose: 40 mg Guaifenesin (Robitussin -) 10 ml PO Q4H PRN PRN Reason: COUGH Last Admin: 05/23/16 10:22 Dose: 10 ml Isosorbide Mononitrate (Imdur -) 30 mg PO DAILY [facility] Last Admin: 05/28/16 09:28 Dose: 30 mg Lisinopril (Prinivil) 10 mg PO DAILY [facility] Last Admin: 05/28/16 09:28 Dose: 10 mg Nicotine (Nicoderm Patch -) 14 mg TD DAILY [facility] Last Admin: 05/28/16 09:28 Dose: Not Given Nitroglycerin (Nitrostat -) 0.4 mg SL Q5M PRN PRN Reason: CHEST PAIN Last Admin: 05/26/16 00:29 Dose: 0.4 mg Pantoprazole Sodium (Protonix -) 40 mg PO BID [facility] Last Admin: 05/28/16 09:28 Dose: 40 mg Prednisone (Deltasone -) 30 mg PO DAILY [facility] Last Admin: 05/28/16 09:28 Dose: 30 mg Ranolazine (Ranexa -) 1,000 mg PO BID [facility] Last Admin: 05/28/16 09:27 Dose: 1,000 mg Roflumilast (Daliresp -) 500 mcg PO DAILY [facility] Last Admin: 05/28/16 09:30 Dose: 500 mcg Senna (Senna -) 2 tab PO HS [facility] Last Admin: 05/27/16 21:46 Dose: Not Given Verapamil HCl (Calan Sr -) 120 mg PO DAILY [facility] Last Admin: 05/28/16 09:30 Dose: 120 mg - Objective Vital Signs: Vital Signs Temperature 98.1 F 05/28/16 05:44 Pulse Rate 73 05/28/16 05:44 Respiratory Rate 20 05/28/16 05:44 Blood Pressure 122/63 05/28/16 05:44 O2 Sat by Pulse Oximetry (%) 98 05/27/16 21:00 Constitutional: Yes: Well Nourished, No Distress, Calm Eyes: Yes: Conjunctiva Clear, EOM Intact, PERRL HENT: Yes: Atraumatic, Normocephalic Neck: Yes: Supple, Trachea Midline Cardiovascular: Yes: Regular Rate and Rhythm, Murmur, S1, S2. No: Bradycardia, Tachycardia, Pulse Irregular, Bruit, JVD, Gallop, Rub, S3, S4, Varicosities Respiratory: Yes: Regular, Wheezes. No: Rales, Rhonchi, SOB Gastrointestinal: Yes: Normal Bowel Sounds, Soft. No: Distention, Tenderness Musculoskeletal: Yes: WNL Extremities: Yes: WNL Edema: Yes Edema: LLE: 1+, RLE: 1+ Peripheral Pulses WNL: Yes Peripheral Pulses: Left Doralis Pedis: 2+, Right Dorsalis Pedis: 2+ Integumentary: Yes: WNL Neurological: Yes: Alert, Oriented, Cran Nerves II-XII Intact Psychiatric: Yes: Alert, Oriented Labs: CBC, BMP 05/27/16 06:00 05/22/16 06:00 INR, PTT INR 1.13 (0.82-1.09) 05/20/16 07:20 - ....Imaging Chest X-ray: Report Reviewed, Image Reviewed EKG: Report Reviewed, Image Reviewed Other: Report Reviewed, Image Reviewed Assessment/Plan IMP: Chest pain, h/o CAD w/ prior coronary intervention years ago, has refused cardiac cath on multiple recent occasions History breast cancer, lung mass with negative bx COPD, chronic with chronic hypoxemia Mild PSVT Chronic diastolic CHF Carotid stenosis s/p CEA REC: SOB-primarily AE COPD, possible component of acute on chronic diastolic CHF -developed b/l LE edema this am but no rales on lung exam, possibly secondary to steroids -pt is acceptable for discharge home from cardiac standpoint -cont Lasix 40mg po daily -pt will call me this monday and let me know how her edema is doing, if not improved will increase her po lasix at home, i suspect as the steroids are tapered off her edema will improve -steroids as per pulmonary -recent lung mass bx 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
[2016-05-28 13:28] VITALS: BP 132/61; PULSE 77
== END 2016-05-28 14:37 | disposition home or self-care (01) | DRG 291 ==
LOC: JER 07:18 → JERBED 12:31 → J7W 14:38
PROVIDERS: ADMIT Internal Medicine; ATTEND Internal Medicine
DX: I11.0 Hypertensive heart disease with heart failure (principal); J96.21 Acute and chronic respiratory failure with hypoxia; I47.1 Supraventricular tachycardia; J44.1 Chronic obstructive pulmonary disease with (acute) exacerbation; I50.33 Acute on chronic diastolic (congestive) heart failure; E78.5 Hyperlipidemia, unspecified; J44.9 Chronic obstructive pulmonary disease, unspecified; F17.210 Nicotine dependence, cigarettes, uncomplicated; I35.0 Nonrheumatic aortic (valve) stenosis; Z85.3 Personal history of malignant neoplasm of breast; Z99.81 Dependence on supplemental oxygen; E87.5 Hyperkalemia; K59.00 Constipation, unspecified; D50.9 Iron deficiency anemia, unspecified; R91.1 Solitary pulmonary nodule; I25.119 Atherosclerotic heart disease of native coronary artery with unspecified angina pectoris
CPT/HCPCS: 36415; 71010-TC; 80048; 80053; 82550; 82728; 83540; 83550; 83735; 83880; 84484; 85025; 85027; 85044; 85610; 87040; 93005; 93010; 93970-TC; 94640; 94761; 97116-GP; 97162-PG; 99284-25; J1644

== ENCOUNTER 2016-05-30 16:35 | Inpatient (IN) | payer OTHER ==
--- NOTE | 2016-05-30 16:41 | PDOC ---
History of Present Illness - General History Source: EMS, Old Records Exam Limitations: Intubated - History of Present Illness Initial Comments: 05/30/16 19:21 The patient is a 75 year old female, with a significant past medical history of hypertension, hyperlipidemia, chronic bronchitis, COPD and left breast CA s/p radiation therapy, who presents to the emergency department via EMS intubated in respiratory arrest. This patient was most recently seen in this ED on 2016 for shortness of breath and chest pain, was admitted and discharged 3 days ago (05/28/2016). EMS reports that this afternoon, the patient was feeling short of breath and initiated EMS herself from home. EMS reports that upon arrival to the scene, the patient was wheezing with rhonchi and was hypoxic to the 80s. She was subsequently given nebs, steroids, mags and was put on CPAP. She then began to deteriorate with altered mental status so she was intubated with etomidate and succinylcholine. The patient arrives to the ED intubated. Allergies: None reported. Past Surgical History: Right Foot Surgery. Social History: Current smoker. Denies alcohol or drug use. 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 Kevin <Payton Storey - Last Filed: 05/30/16 19:21> <Orlando Mayo - Last Filed: 05/30/16 20:15> - General Stated Complaint: SOB Time Seen by Provider: 05/30/16 16:36 Past History <Payton Storey - Last Filed: 05/30/16 19:21> - Past Medical History Anemia: No Asthma: No Cancer: Yes (breast ca/radiation therapy LEFT) Cardiac Disorders: No CVA: No COPD: Yes CHF: No Dementia: No Diabetes: No GI Disorders: No Disorders: No HTN: Yes Hypercholesterolemia: Yes Liver Disease: No Suicide Attempt (Hx): No Seizures: No Thyroid Disease: No - Surgical History Abdominal Surgery: No Appendectomy: No Cardiac Surgery: No Cholecystectomy: No Lung Surgery: No Neurologic Surgery: No Orthopedic Surgery: Yes (right foot) - Immunization History Immunization Up to Date: Yes - Psycho/Social/Smoking Cessation Hx Anxiety: No Suicidal Ideation: No Smoking History: Current every day smoker Have you smoked in the past 12 months: Yes Number of Cigarettes Smoked Daily: 2 Cigars Per Day: 0 'Breaking Loose' booklet given: 04/15/16 Hx Alcohol Use: No Drug/Substance Use Hx: No Substance Use Type: None Hx Substance Use Treatment: No <Orlando Mayo - Last Filed: 05/30/16 20:15> - Past Medical History Allergies/Adverse Reactions: Allergies Allergy/AdvReac Type Severity Reaction Status Date / Time No Known Allergies Allergy Verified 05/30/16 16:46 Home Medications: Ambulatory Orders Cholecalciferol (Vitamin D3) [Vitamin D3 -] 1,000 unit PO DAILY #30 tab Albuterol Sulfate [Proair Hfa -] 2 inh PO BID 06/14/14 Omeprazole 20 mg PO DAILY 09/29/15 Acetaminophen [Tylenol Extra Strength] 500 mg PO QID #90 tablet 02/22/16 Aspirin [ASA -] 81 mg PO DAILY tab.chew 02/22/16 Atorvastatin Ca [Lipitor] 40 mg PO HS tablet 02/22/16 Budesonide/Formeterol Fumarate [SYMBICORT 160/4.5mcg -] 2 puff IH BID inhaler 02/22/16 Lisinopril [Prinivil] 10 mg PO DAILY tablet 02/22/16 Nitroglycerin Sublingual [Nitrostat -] 0.4 mg SL Q5M PRN #30 tab 02/22/16 Ranolazine [Ranexa -] 500 mg PO BID tab 02/22/16 Aclidinium [place] [Tudorza -] 1 puff IH BID #1 inhaler 05/28/16 Amox-Tr/K Cl [Augmentin 875-125mg Tablet -] 1 tab PO BID@0800,1730 #8 tablet Docusate Sodium [Colace -] 100 mg PO TID #90 cap 05/28/16 Furosemide [Lasix -] 40 mg PO DAILY #30 tablet 05/28/16 Guaifenesin [Robitussin -] 10 ml PO Q4H PRN #0 05/28/16 Isosorbide Mononitrate [Imdur -] 30 mg PO DAILY #30 tab MDD 1 05/28/16 Nicotine Patch [Nicoderm Patch -] 14 mg TD DAILY #15 patch 05/28/16 Prednisone [Deltasone -] 30 mg PO DAILY #30 tablet 05/28/16 Roflumilast [Daliresp -] 500 mcg PO DAILY #30 tablet 05/28/16 Verapamil HCl ER [Calan Sr -] 120 mg PO DAILY #30 tab 05/28/16 Review of Systems - Review of Systems Able to Perform ROS?: No Comments:: 05/30/16 16:52 Unable to perform ROS because patient is intubated upon arrival to ED. <Payton Storey - Last Filed: 05/30/16 19:21> *Physical Exam - Physical Exam Comments: 05/30/16 17:26 GENERAL: The patient is intubated, nonresponsive. HEAD: Normocephalic, atraumatic. EYES: 4mm and symmetrically reactive to light, sclera anicteric, conjunctiva clear. ENT: Moist mucous membranes. 7.[address] NECK: Normal range of motion, supple. LUNGS: Scattered wheezing, breath sounds bilaterally. HEART: Slightly tachycardic. ABDOMEN: Soft, nontender. EXTREMITIES: +edema LLE > RLE. NEUROLOGICAL: Unresponsive. PSYCH: Unable to assess. SKIN: Hot to touch. <Payton Storey - Last Filed: 05/30/16 19:21> Heart Score/ECG Review - ECG Impressions Comment:: 05/30/16 19:23 Twelve-lead EKG was performed and reviewed by me. There is normal sinus rhythm with a normal rate. Rate of 92 Left axis deviation Incomplete right bundle-branch block lvh ST depressions in the lateral leads, V4 V5 V6 (present on prior EKG dated ) <Orlando Mayo - Last Filed: 05/30/16 20:15> ED Treatment Course - LABORATORY CBC & Chemistry Diagram: 05/30/16 17:00 05/30/16 16:37 <Payton Storey - Last Filed: 05/30/16 19:21> - LABORATORY CBC & Chemistry Diagram: 05/30/16 17:00 05/30/16 16:37 - RADIOLOGY Radiology Studies Ordered: Category Date Time Status CHEST X-RAY PORTABLE* [RAD] Stat Radiology 05/30/16 16:38 Ordered DUPLEX VASCUL US-1 LEG [US] Stat Ultrasound 05/30/16 16:39 Ordered <Orlando Mayo - Last Filed: 05/30/16 20:15> Medical Decision Making - Medical Decision Making 05/30/16 19:[address] Bernal at 19:00. Referred to answering service, awaiting callback. <RaleighPayton - Last Filed: 05/30/16 19:21> - Medical Decision Making 05/30/16 16:42 75y F hx of copd, hl, berast ca presents to the ED in respiratory arrest - pt was complaining of feeling sob, was wheezing with rhonchi, was hypoxic to the 80s, was given nebs, steroids, mag, put on cpap and she began to deteriorate - with AMS, may to 20s, respiratory failure and was itnubated with etomidate and succinylcholine. On arrival the pts was intubated, pupils 4mm and reactive , mild rhonchi in pulm exam, +L sided edmea >R ?copd/chf vs. PE/dvt vs acs will obtain abg, cbc, cmp, d-dimer duplex US to r/o dvt will put on propofol for sedation pt put on vent once stable, consider CT Chest icu admission 05/30/16 19:14 The patient's blood work was reviewed The patient's anemia is approximately baseline The patient's lactic acid was elevated four - Mild leukocytosis noted The patient meets criteria for sepsis as she is also febrile Broad-spectrum antibiotics were ordered The patient's VBG reveals respiratory acidosis, with elevated pCO2 likely related to COPD exacerbation. We'll obtain a CTA to rule out a PE. will admit the pt to the ICU for further management 05/30/16 19:[address] Mcdowell agreed with ICU admissino for likely copd exacerbation - pending cta chest to r/ o pE case signed out to dr. napier to fu with CT resutls and repeat abg. CRITICAL CARE DOCUMENTATION: I spent ~35 minutes of Critical Care time, excluding separately billable procedures, involving high complexity decision making to assess, manipulate and support vital system function(s) to treat single or multiple vital organ system failure and/or to prevent further life threatening deterioration of the patient' s condition. 05/30/16 20:00 abg is significantly improved with resolution of acidosis and hypercapnea repeat lactic acid is negative 05/30/16 20:[address] bernal agreed wtih icu admission accpeted to icu <Orlando Mayo - Last Filed: 05/30/16 20:15> *DC/Admit/Observation/Transfer - Attestations Scribe Attestion: 05/30/16 16:51 Documentation prepared by Payton Storey, acting as medical health researcher for Orlando Mayo MD. <Payton Storey - Last Filed: 05/30/16 19:21> - Discharge Dispostion Admit: Yes <Orlando Mayo - Last Filed: 05/30/16 20:15> Diagnosis at time of Disposition: Chronic respiratory failure with hypoxia Respiratory failure Qualifiers: Chronicity: acute Respiratory failure complication: hypoxia and hypercapnia Qualified Code(s): J96.01 - Acute respiratory failure with hypoxia - Discharge Dispostion Condition at time of disposition: Critical
[2016-05-30] MEDS ORDERED: PROPOFOL 100 ML IVPB SCH (16:45)
[2016-05-30] MEDS ORDERED: MAGNESIUM SULF 50% (8.12 MEQ/2 ML-1 GM VIAL) ONE (16:48)
[2016-05-30] MEDS ORDERED: ALBUTEROL SO4 2.5/IPRATROPIUM 0.5 INH SOL 3 ML VIAL.NEB. NEB ONE ×2 (16:48→17:18)
[2016-05-30] MEDS ORDERED: ATROPINE SULFATE 1 MG/10 ML DISP.SYRIN ONE (16:48)
[2016-05-30] MEDS ORDERED: ETOMIDATE 40 MG/20 ML VIAL IVPUSH ONE (16:48)
[2016-05-30] MEDS ORDERED: SUCCINYLCHOLINE CHLORIDE 200 MG/10 ML VIAL ONE (16:49)
[2016-05-30] MEDS ORDERED: methylPREDNISolone NA SUCC 125 MG/2 ML VIAL ONE (16:56)
[2016-05-30 17:10] LABS: VENOUS BLOOD GAS HCO3 29.4 meq/L (19-25); VENOUS PH 7.13 (7.32-7.42)
[2016-05-30] MEDS ORDERED: ACETAMINOPHEN 1000 MG/100 ML VIAL (NON FORMULARY) IVPB ONE (17:11)
[2016-05-30] MEDS ORDERED: SODIUM CHLORIDE 500 ML IV STA (17:11)
[2016-05-30 17:24] LABS: INR 0.98 (0.82-1.09); PROTHROMBIN TIME (PATIENT) 10.8 SEC (9.98-11.88)
[2016-05-30 17:45] LABS: BASOPHIL 0.8 % (0-2.0); EOSINOPHIL 0.3 % (0-4.5); MCHC 29.3 g/dl (32.0-36.0); MEAN CELL VOLUME 71.6 fl (80-96); MEAN PLT VOLUME 8.6 fl (7.5-11.1); NEUTROPHILS 75.5 % (42.8-82.8); PLATELET COUNT 231 K/MM3 (134-434); RDW 22.9 % (11.6-15.6); WHITE BLOOD COUNT 12.7 K/mm3 (4.0-10.0)
[2016-05-30 17:48] LABS: ALBUMIN 2.5 g/dl (3.4-5.0); ANION GAP 9 (8-16); BILIRUBIN,TOTAL 0.4 mg/dL (0.2-1.0); CALCIUM 8.3 mg/dL (8.5-10.1); CO2 29 mmol/L (21-32); CREATININE 0.9 mg/dL (0.55-1.02); GLUCOSE,RANDOM 216 mg/dL (74-106); SGOT/AST 33 U/L (15-37); SGPT/ALT 24 U/L (12-78)
[2016-05-30 17:51] LABS: ALK PHOS 57 U/L (45-117); TROPONIN I 0.05 ng/ml (0.00-0.05)
[2016-05-30] MEDS ORDERED: MIDAZOLAM 100 MG in SODIUM CHLORIDE 100 ML IVPB SCH (18:00)
[2016-05-30] MEDS: ALBUTEROL SO4 2.5/IPRATROPIUM 0.5 INH SOL 3 ML VIAL.NEB. NEB SCH ×3 (19:07→19:45)
[2016-05-30 19:12] LABS: URINE APPEARANCE CLEAR; URINE BILIRUBIN NEGATIVE (NEGATIVE); URINE BLOOD NEGATIVE (NEGATIVE); URINE COLOR LTYELLOW; URINE GLUCOSE (UA) 3+ (NEGATIVE); URINE KETONE NEGATIVE (NEGATIVE); URINE LEUK ESTERASE NEGATIVE (NEGATIVE); URINE NITRITE NEGATIVE (NEGATIVE); URINE UROBILINOGEN NEGATIVE E.U./dl (0.2-1.0)
[2016-05-30] MEDS ORDERED: PIPERACILLIN/TAZOB 4.5 GM/100 ML PRE-DOCKED IVPB ONE (19:15)
[2016-05-30] MEDS ORDERED: AZITHROMYCIN IVPB 500 MG in DEXTROSE 5%-WATER - 250 ML IVPB ONE (19:15)
[2016-05-30] MEDS ORDERED: VANCOMYCIN 1,000 MG in DEXTROSE 5%-WATER - 250 ML IVPB ONE (19:15)
[2016-05-30 19:19] LABS: ANISOCYTOSIS 2+; HYPOCHROMIA 2+; MICROCYTOSIS 1+; OVALOCYTES 1+; PLATELET ESTIMATE ADEQUATE (NORMAL); POIKILOCYTOSIS 1+; POLYCHROMASIA FEW; TARGET CELLS FEW
[2016-05-30 19:20] LABS: URINE PROTEIN 2+ (NEGATIVE)
[2016-05-30 19:21] LABS: URINE HYALINE CAST 64 /lpf; URINE MUCUS RARE; URINE RBC <1 /hpf (0-3); URINE WBC 2 /hpf (3-5)
[2016-05-30] MEDS ORDERED: AZITHROMYCIN IVPB 250 ML IVPB ONE (19:49)
[2016-05-30] MEDS ORDERED: VANCOMYCIN 1 GRAM (PRE-DOCKED) 250 ML IVPB ONE (19:49)
[2016-05-30] MEDS ORDERED: PIPERACILLIN/TAZOB 4.5 GM 100 ML IVPB ONE (19:50)
[2016-05-30 19:55] LABS: ARTERIAL BLD GAS O2 SATURATION 98.8 % (90-98.9); ARTERIAL BLOOD GAS BASE EXCESS 4.4 meq/l (-2-2); ARTERIAL BLOOD GAS HCO3 28.6 meq/L (22-26); ARTERIAL BLOOD GAS pH 7.43 (7.35-7.45)
[2016-05-30 19:56] LABS: ALLENS TEST POSITIVE; ART PUNCT SITE LEFT RADIAL; LPM/O2% 50%; MECH. VENT. YES; PT. ON O2? YES; TYPE OF O2 MECH VENT; VENT RATE 14; VT/PRESS 400
[2016-05-30 20:43] LABS: URINE MARIJUANA THC NEGATIVE ng/ml (CUTOFF=50)
--- NOTE | 2016-05-30 22:20 | HP ---
Admitting History and Physical - Primary Care Physician PCP: Kay Mcdowell - Admission Chief Complaint: pt intubated History of Present Illness: The patient is a 75 year old female, with a significant past medical history of hypertension, hyperlipidemia, chronic bronchitis, COPD and left breast CA s/p radiation therapy, who presents to the emergency department via EMS intubated in respiratory arrest. This patient was most recently seen in this ED on 2016 for shortness of breath and chest pain, was admitted and discharged 3 days ago (05/28/2016). EMS reports that this afternoon, the patient was feeling short of breath and initiated EMS herself from home. EMS reports that upon arrival to the scene, the patient was wheezing with rhonchi and was hypoxic to the 80s. She was subsequently given nebs, steroids, mags and was put on CPAP. 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) Cardiovascular: Yes: CAD, CHF, HTN, Other (carotid stenosis s/p CEA) Pulmonary: Yes: COPD, O2 Dependent, Other (Lung nodules) Heme/Onc: Yes: Cancer (breast ca) - Past Surgical History Past Surgical History: Yes: Carotid Endarterectomy (right), Hysterectomy - Smoking History Smoking history: Current every day smoker Have you smoked in the past 12 months: Yes Aproximately how many cigarettes per day: 2 If you are a former smoker, when did you quit?: pt was smoking a cig prior to ems arrival - Alcohol/Substance Use Hx Alcohol Use: No History of Substance Use: reports: None - Social History ADL: Independent History of Recent Travel: No Home Medications - Allergies Allergies/Adverse Reactions: Allergies Allergy/AdvReac Type Severity Reaction Status Date / Time No Known Allergies Allergy Verified 05/30/16 16:46 - Home Medications Home Medications: Ambulatory Orders Cholecalciferol (Vitamin D3) [Vitamin D3 -] 1,000 unit PO DAILY #30 tab Albuterol Sulfate [Proair Hfa -] 2 inh PO BID 06/14/14 Omeprazole 20 mg PO DAILY 09/29/15 Acetaminophen [Tylenol Extra Strength] 500 mg PO QID #90 tablet 02/22/16 Aspirin [ASA -] 81 mg PO DAILY tab.chew 02/22/16 Atorvastatin Ca [Lipitor] 40 mg PO HS tablet 02/22/16 Budesonide/Formeterol Fumarate [SYMBICORT 160/4.5mcg -] 2 puff IH BID inhaler 02/22/16 Lisinopril [Prinivil] 10 mg PO DAILY tablet 02/22/16 Nitroglycerin Sublingual [Nitrostat -] 0.4 mg SL Q5M PRN #30 tab 02/22/16 Ranolazine [Ranexa -] 500 mg PO BID tab 02/22/16 Aclidinium [place] [Tudorza -] 1 puff IH BID #1 inhaler 05/28/16 Amox-Tr/K Cl [Augmentin 875-125mg Tablet -] 1 tab PO BID@0800,1730 #8 tablet Docusate Sodium [Colace -] 100 mg PO TID #90 cap 05/28/16 Furosemide [Lasix -] 40 mg PO DAILY #30 tablet 05/28/16 Guaifenesin [Robitussin -] 10 ml PO Q4H PRN #0 05/28/16 Isosorbide Mononitrate [Imdur -] 30 mg PO DAILY #30 tab MDD 1 05/28/16 Nicotine Patch [Nicoderm Patch -] 14 mg TD DAILY #15 patch 05/28/16 Prednisone [Deltasone -] 30 mg PO DAILY #30 tablet 05/28/16 Roflumilast [Daliresp -] 500 mcg PO DAILY #30 tablet 05/28/16 Verapamil HCl ER [Calan Sr -] 120 mg PO DAILY #30 tab 05/28/16 Family Disease History - Family Disease History Family Disease History: CA: Father (widespread, unsure of which type), Other: Mother ( of brain hemorrhage after trauma) Review of Systems - Review of Systems Constitutional: denies: No Symptoms, Chills, Diaphoresis, Fever, Lethargy, Loss of Appetite, Malaise, Night Sweats, Unintentional Wgt. Loss, Weakness, Other Eyes: denies: No Symptoms, Blind Spots, Blurred Vision, Double Vision, Eye Pain , Floaters, Photophobia, Recent Change in Vision, Other HENT: denies: No Symptoms, Difficult Swallowing, Ear Discharge, Ear Pain, Epistaxis, Gingival Bleeding, Hearing Loss, Mouth Swelling, Nasal Congestion, Ocular Prosthesis, Throat Pain, Toothache, Ringing in Ears, Other Neck: denies: No Symptoms, Decreased ROM, Lumps, Pain on Movement, Stiffness, Swollen Glands, Tenderness, Other Cardiovascular: denies: No Symptoms, Chest Pain, Edema, Palpitations, Shortness of Breath, Other Respiratory: reports: SOB Gastrointestinal: denies: No Symptoms, Abdominal Pain, Bloating, Constipation, Diarrhea, Dysphagia, Indigestion, Melena, Nausea, Rectal Bleeding, Vomiting, Vomiting Blood, Other Genitourinary: denies: No Symptoms, Burning, Discharge, Dysuria, Flank Pain, Frequency, Hematuria, Incontinence, Lesions, Menses, Pain, Testicular Mass, Testicular Pain, Testicular Swelling, Urgency, Vaginal Bleeding, Other Neurological: denies: No Symptoms, Change in LOC, Change in Speech, Confusion, Dizziness, Headache, Incoordination, Numbness, Parasthesia, Pre-Existing Deficit , Seizure, Syncope, Tremors, Unsteady Gait, Weakness, Other Physical Examination Vital Signs: Vital Signs Temperature 99.3 F 05/30/16 21:48 Pulse Rate 100 H 05/30/16 21:48 Respiratory Rate 14 05/30/16 21:48 Blood Pressure 107/55 05/30/16 21:48 O2 Sat by Pulse Oximetry (%) 35 L 05/30/16 21:48 Constitutional: Yes: Calm HENT: Yes: Atraumatic Neck: Yes: Supple Cardiovascular: Yes: Regular Rate and Rhythm Respiratory: Yes: Rhonchi Gastrointestinal: Yes: Normal Bowel Sounds Extremities: Yes: WNL Neurological: Yes: Alert, Oriented Problem List - Problems (1) Respiratory failure Assessment/Plan: pt is intubated sedation duo nebs if needed ivsteroids pulmonary consult Code(s): J96.90 - RESPIRATORY FAILURE, UNSP, UNSP W HYPOXIA OR HYPERCAPNIA Qualifiers: Chronicity: acute Respiratory failure complication: hypoxia and hypercapnia Qualified Code(s): J96.01 - Acute respiratory failure with hypoxia (2) Chronic respiratory failure with hypoxia Assessment/Plan: ptis intubated see above Code(s): J96.11 - CHRONIC RESPIRATORY FAILURE WITH HYPOXIA (3) CAD (coronary artery disease) Assessment/Plan: on meds follow up labs Code(s): I25.10 - ATHSCL HEART DISEASE OF [place] CORONARY ARTERY W/O ANG PCTRS (4) COPD (chronic obstructive pulmonary disease) Assessment/Plan: intubated Code(s): J44.9 - CHRONIC OBSTRUCTIVE PULMONARY DISEASE, UNSPECIFIED (5) Chronic diastolic CHF (congestive heart failure) Code(s): I50.32 - CHRONIC DIASTOLIC (CONGESTIVE) HEART FAILURE (6) HLD (hyperlipidemia) Assessment/Plan: on meds Code(s): E78.5 - HYPERLIPIDEMIA, UNSPECIFIED Qualifiers: Hyperlipidemia type: unspecified Qualified Code(s): E78.5 - Hyperlipidemia, unspecified (7) HTN (hypertension) Assessment/Plan: on meds stable Code(s): I10 - ESSENTIAL (PRIMARY) HYPERTENSION Qualifiers: Hypertension type: essential hypertension Qualified Code(s): I10 - Essential (primary) hypertension (8) History of cigarette smoking Code(s): Z87.891 - PERSONAL HISTORY OF NICOTINE DEPENDENCE (9) Influenza Assessment/Plan: on meds id consult Code(s): J11.1 - FLU DUE TO UNIDENTIFIED INFLUENZA VIRUS W OTH RESP MANIFEST Assessment/Plan Laboratory Tests 05/30/16 05/30/16 05/30/16 16:37 16:37 16:37 WBC RBC Hgb Hct MCV MCHC RDW Plt Count MPV Neutrophils % Lymphocytes % Monocytes % Eosinophils % Basophils % Platelet Estimate Platelet Comment Polychromasia Hypochromic-Microcytic Poikilocytosis Anisocytosis Microcytosis Target Cells Ovalocytes INR PTT (Actin FS) D-Dimer 607 H Puncture Site ABG pH ABG pCO2 at Pt Temp ABG pO2 at Pt Temp ABG HCO3 ABG O2 Sat (Measured) ABG O2 Content ABG Base Excess Rafi Test VBG pH POC VBG pCO2 POC VBG pO2 Mixed VBG HCO3 O2 Delivery Device Oxygen Flow Rate Vent Mode Vent Rate Mechanical Rate PEEP Pressure Support Vent Sodium 136 Potassium 5.3 H D Chloride 98 Carbon Dioxide 29 D Anion Gap 9 BUN 19 H Creatinine 0.9 D Creat Clearance w eGFR > 60 Random Glucose 216 H D Lactic Acid Calcium 8.3 L Total Bilirubin 0.4 D AST 33 D ALT 24 Alkaline Phosphatase 57 D Creatine Kinase 43 Troponin I 0.05 B-Natriuretic Peptide 5692.86 H Total Protein 6.0 L Albumin 2.5 L Urine Color Ltyellow Urine Appearance Clear Urine pH 6.0 Ur Specific [place] 1.010 Urine Protein 2+ H Urine Glucose (UA) 3+ H Urine Ketones Negative Urine Blood Negative Urine Nitrite Negative Urine Bilirubin Negative Urine Urobilinogen Negative Ur Leukocyte Esterase Negative Urine RBC <1 Urine WBC 2 Ur Epithelial Cells Rare Hyaline Casts 64 Urine Mucus Rare Opiates Screen Methadone Screen Barbiturate Screen Phencyclidine Screen Ur Amphetamines Screen MDMA (Ecstasy) Screen Benzodiazepines Screen Cocaine Screen U Marijuana (THC) Screen Blood Type Antibody Screen 05/30/16 05/30/16 05/30/16 16:45 16:54 17:00 WBC 12.7 H RBC 4.18 Hgb 8.8 L Hct 29.9 L MCV 71.6 L MCHC 29.3 L RDW 22.9 H Plt Count 231 MPV 8.6 Neutrophils % 75.5 Lymphocytes % 17.9 D Monocytes % 5.5 Eosinophils % 0.3 D Basophils % 0.8 Platelet Estimate Adequate Platelet Comment No clumping noted Polychromasia Few Hypochromic-Microcytic 2+ Poikilocytosis 1+ Anisocytosis 2+ Microcytosis 1+ Target Cells Few Ovalocytes 1+ INR PTT (Actin FS) 29.4 D-Dimer Puncture Site ABG pH ABG pCO2 at Pt Temp ABG pO2 at Pt Temp ABG HCO3 ABG O2 Sat (Measured) ABG O2 Content ABG Base Excess Rafi Test VBG pH 7.13 L* POC VBG pCO2 91.5 H* POC VBG pO2 41.5 Mixed VBG HCO3 29.4 H O2 Delivery Device Oxygen Flow Rate Vent Mode Vent Rate Mechanical Rate PEEP Pressure Support Vent Sodium Potassium Chloride Carbon Dioxide Anion Gap BUN Creatinine Creat Clearance w eGFR Random Glucose Lactic Acid Calcium Total Bilirubin AST ALT Alkaline Phosphatase Creatine Kinase Troponin I B-Natriuretic Peptide Total Protein Albumin Urine Color Urine Appearance Urine pH Ur Specific [place] Urine Protein Urine Glucose (UA) Urine Ketones Urine Blood Urine Nitrite Urine Bilirubin Urine Urobilinogen Ur Leukocyte Esterase Urine RBC Urine WBC Ur Epithelial Cells Hyaline Casts Urine Mucus Opiates Screen Methadone Screen Barbiturate Screen Phencyclidine Screen Ur Amphetamines Screen MDMA (Ecstasy) Screen Benzodiazepines Screen Cocaine Screen U Marijuana (THC) Screen Blood Type Antibody Screen 05/30/16 05/30/16 05/30/16 17:00 17:00 17:00 WBC RBC Hgb Hct MCV MCHC RDW Plt Count MPV Neutrophils % Lymphocytes % Monocytes % Eosinophils % Basophils % Platelet Estimate Platelet Comment Polychromasia Hypochromic-Microcytic Poikilocytosis Anisocytosis Microcytosis Target Cells Ovalocytes INR 0.98 PTT (Actin FS) D-Dimer Puncture Site ABG pH ABG pCO2 at Pt Temp ABG pO2 at Pt Temp ABG HCO3 ABG O2 Sat (Measured) ABG O2 Content ABG Base Excess Rafi Test VBG pH POC VBG pCO2 POC VBG pO2 Mixed VBG HCO3 O2 Delivery Device Oxygen Flow Rate Vent Mode Vent Rate Mechanical Rate PEEP Pressure Support Vent Sodium Potassium Chloride Carbon Dioxide Anion Gap BUN Creatinine Creat Clearance w eGFR Random Glucose Lactic Acid 4.338 H* Calcium Total Bilirubin AST ALT Alkaline Phosphatase Creatine Kinase Troponin I B-Natriuretic Peptide Total Protein Albumin Urine Color Urine Appearance Urine pH Ur Specific [place] Urine Protein Urine Glucose (UA) Urine Ketones Urine Blood Urine Nitrite Urine Bilirubin Urine Urobilinogen Ur Leukocyte Esterase Urine RBC Urine WBC Ur Epithelial Cells Hyaline Casts Urine Mucus Opiates Screen Methadone Screen Barbiturate Screen Phencyclidine Screen Ur Amphetamines Screen MDMA (Ecstasy) Screen Benzodiazepines Screen Cocaine Screen U Marijuana (THC) Screen Blood Type A POSITIVE Antibody Screen Negative 05/30/16 05/30/16 05/30/16 19:20 19:44 20:20 WBC RBC Hgb Hct MCV MCHC RDW Plt Count MPV Neutrophils % Lymphocytes % Monocytes % Eosinophils % Basophils % Platelet Estimate Platelet Comment Polychromasia Hypochromic-Microcytic Poikilocytosis Anisocytosis Microcytosis Target Cells Ovalocytes INR PTT (Actin FS) D-Dimer Puncture Site Left radial ABG pH 7.43 ABG pCO2 at Pt Temp 43.7 ABG pO2 at Pt Temp 134.0 H D ABG HCO3 28.6 H ABG O2 Sat (Measured) 98.8 ABG O2 Content 11.7 L ABG Base Excess 4.4 H Rafi Test Positive VBG pH POC VBG pCO2 POC VBG pO2 Mixed VBG HCO3 O2 Delivery Device Mech vent Oxygen Flow Rate 50% Vent Mode A/c Vent Rate 14 Mechanical Rate Yes PEEP 5.0 Pressure Support Vent 400 Sodium Potassium Chloride Carbon Dioxide Anion Gap BUN Creatinine Creat Clearance w eGFR Random Glucose Lactic Acid 1.828 Calcium Total Bilirubin AST ALT Alkaline Phosphatase Creatine Kinase Troponin I B-Natriuretic Peptide Total Protein Albumin Urine Color Urine Appearance Urine pH Ur Specific [place] Urine Protein Urine Glucose (UA) Urine Ketones Urine Blood Urine Nitrite Urine Bilirubin Urine Urobilinogen Ur Leukocyte Esterase Urine RBC Urine WBC Ur Epithelial Cells Hyaline Casts Urine Mucus Opiates Screen Negative Methadone Screen Negative Barbiturate Screen Negative Phencyclidine Screen Negative Ur Amphetamines Screen Negative MDMA (Ecstasy) Screen Negative Benzodiazepines Screen Negative Cocaine Screen Negative U Marijuana (THC) Screen Negative Blood Type Antibody Screen Active Medications Generic Name Dose Route Start Last Admin Trade Name Freq PRN Reason Stop Dose Admin Acetaminophen 650 mg 06/04/16 02:00 06/12/16 09:23 Tylenol - PO 650 mg Q4H PRN Administration FEVER OR PAIN Albuterol/Ipratropium 1 amp 06/13/16 12:00 06/13/16 17:06 Duoneb - NEB 1 amp QIDR YEISON Administration Alprazolam 0.25 mg 06/11/16 15:56 06/13/16 13:13 Xanax - PO 0.25 mg Q6H PRN Administration ANXIETY Aspirin 81 mg 06/10/16 11:45 06/13/16 09:26 Asa - NGT 81 mg DAILY YEISON Administration Atorvastatin Calcium 80 mg 05/31/16 22:00 06/12/16 22:00 Lipitor - PO 80 mg HS YEISON Administration Diltiazem HCl 30 mg 06/07/16 14:00 06/13/16 17:25 Cardizem - PO 30 mg QID YEISON Administration Docusate Sodium 100 mg 05/31/16 10:00 06/13/16 09:25 Colace - PO 100 mg DAILY YEISON Administration Enalapril Maleate 5 mg 06/09/16 22:00 06/13/16 09:25 Vasotec - NGT 5 mg BID YEISON Administration Enoxaparin Sodium 40 mg 06/14/16 10:00 Lovenox - SQ DAILY YEISON Hydralazine HCl 10 mg 06/07/16 14:00 06/13/16 15:08 Apresoline - NGT 10 mg TID YEISON Administration Insulin Aspart 1 vial 05/31/16 07:00 06/13/16 16:14 Novolog Vial Sliding Scale - SQ 3 units TIDAC YEISON Administration Protocol Morphine Sulfate 2 mg 06/12/16 09:02 06/13/16 15:22 Morphine Injection - IVPUSH 2 mg Q3H PRN Administration PAIN Pantoprazole Sodium 40 mg 05/31/16 10:00 06/13/16 09:25 Protonix 40mg Ivpb (Pre-Docked) IVPB 40 mg DAILY YEISON Administration Prednisone 40 mg 06/11/16 10:00 06/13/16 09:25 Deltasone - NGT 40 mg DAILY YEISON Administration cc time 60 min
[2016-05-30] MEDS: FENTANYL INJECTION 500 MCG in DEXTROSE 5%-WATER - 90 ML IJ SCH (22:30)
[2016-05-30] MEDS ORDERED: ALBUTEROL SO4 0.083% IH SOL 2.5 MG/3 ML VIAL.NEB. NEB ONE ×2 (22:30→22:36)
[2016-05-30] MEDS ORDERED: ALBUTEROL SO4 2.5/IPRATROPIUM 0.5 INH SOL 3 ML VIAL.NEB. NEB PRN (22:31)
--- NOTE | 2016-05-30 22:40 | CONSULT ---
Consult Consult Specialty:: Pulm/CC - History of Present Illness History of Present Illness: Pt presents to the ICU intubated and without family. History limited and based on documented hx and verbal report. Pt is a 75yr old woman with PMHx of O2 dependent (3L ~200 min/day) COPD, pulm HTN, current smoker, CAD, HTN, HLD, CHF stable AAA, breast cancer s/p lumpectomy , chemo and raditation, subdural intracranial bleed. Pt recently admitted 05/20- for CHF and COPD exacerbation. Pt called EMS today from home with CC of SOB. Per report when EMS arrived pt was wheezing with rhonchi and hypoxia, given nebs IV steroids, IV mag and given cpap without adequate response and was subsequently intubated. In the ER pt initial vital signs 145/62, HR 97, temp 101 , 100% on fio2 50%. WBC 12.7, h/h 8.8/29.9, lactic acid 4.388, K 5.3, BNP 5692, urine 2+ protein and 3+ glucose. Pt given Vanc/Zosyn/Azith IVF and IV tylenol and admitted to the ICU for further management. Pt received in the ICU 115/53, 80s (sinus on tele), 99.6 rectal temp, 400/5/14/35 sating 100%. Lung biopsy from 05/04/16 -- Lung, left, pleural based lesion. Benign pulmonary tissue with necrotizing granulomatous inflammation. No acid fast bacilli are identified with AFB stain; no fungal organisms are identified with GMS stain. 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: Other (SDH) Cardio/Vascular: Yes: CAD, CHF, HTN, Other (carotid stenosis s/p CEA) Pulmonary: Yes: COPD, O2 Dependent, Other (Lung nodules) - Past Surgical History Past Surgical History: Yes: Carotid Endarterectomy (right), Hysterectomy - Alcohol/Substance Use Hx Alcohol Use: No History of Substance Use: reports: None - Smoking History Smoking history: Current every day smoker Have you smoked in the past 12 months: Yes Aproximately how many cigarettes per day: 2 If you are a former smoker, when did you quit?: pt was smoking a cig prior to ems arrival - Social History Usual Living Arrangement: Alone ADL: Independent History of Recent Travel: No Home Medications - Allergies Allergies/Adverse Reactions: Allergies Allergy/AdvReac Type Severity Reaction Status Date / Time No Known Allergies Allergy Verified 05/30/16 16:46 - Home Medications Home Medications: Ambulatory Orders Cholecalciferol (Vitamin D3) [Vitamin D3 -] 1,000 unit PO DAILY #30 tab Albuterol Sulfate [Proair Hfa -] 2 inh PO BID 06/14/14 Omeprazole 20 mg PO DAILY 09/29/15 Acetaminophen [Tylenol Extra Strength] 500 mg PO QID #90 tablet 02/22/16 Aspirin [ASA -] 81 mg PO DAILY tab.chew 02/22/16 Atorvastatin Ca [Lipitor] 40 mg PO HS tablet 02/22/16 Budesonide/Formeterol Fumarate [SYMBICORT 160/4.5mcg -] 2 puff IH BID inhaler 02/22/16 Lisinopril [Prinivil] 10 mg PO DAILY tablet 02/22/16 Nitroglycerin Sublingual [Nitrostat -] 0.4 mg SL Q5M PRN #30 tab 02/22/16 Ranolazine [Ranexa -] 500 mg PO BID tab 02/22/16 Aclidinium [place] [Tudorza -] 1 puff IH BID #1 inhaler 05/28/16 Amox-Tr/K Cl [Augmentin 875-125mg Tablet -] 1 tab PO BID@0800,1730 #8 tablet Docusate Sodium [Colace -] 100 mg PO TID #90 cap 05/28/16 Furosemide [Lasix -] 40 mg PO DAILY #30 tablet 05/28/16 Guaifenesin [Robitussin -] 10 ml PO Q4H PRN #0 05/28/16 Isosorbide Mononitrate [Imdur -] 30 mg PO DAILY #30 tab MDD 1 05/28/16 Nicotine Patch [Nicoderm Patch -] 14 mg TD DAILY #15 patch 05/28/16 Prednisone [Deltasone -] 30 mg PO DAILY #30 tablet 05/28/16 Roflumilast [Daliresp -] 500 mcg PO DAILY #30 tablet 05/28/16 Verapamil HCl ER [Calan Sr -] 120 mg PO DAILY #30 tab 03/18/17 Family Disease History - Family Disease History Family History: Unable to Obtain Family Disease History: CA: Father (widespread, unsure of which type), Other: Mother ( of brain hemorrhage after trauma) Review of Systems Unable to obtain ROS, reason: stephanie Physical Exam Vital Signs: Vital Signs Period Temp Pulse Resp BP Sys/Rasheed Pulse Ox Last 24 Hr 99.3 F-101.0 F 80-100 14-20 93-145/51-62 35-100 Intake & Output 05/27/16 05/28/16 05/29/16 05/30/16 23:59 23:59 23:59 23:59 Intake Total 1124 Balance 1124 Weight 140 lb Constitutional: Yes: Well Nourished, Mild Distress Eyes: Yes: Other (bilateral miosis consistent with versed) HENT: Yes: Atraumatic Neck: Yes: Trachea Midline Cardiovascular: Yes: Murmur (2/6 systolic), S1, S2 Respiratory: Yes: Diminished (L>R), Intubated, Mechanically Ventilated, Rhonchi (fine from midline down bilaterally. clear secretions on suction) Gastrointestinal: Yes: Normal Bowel Sounds, Soft. No: Tenderness ...Rectal Exam: Yes: Deferred Renal/: Yes: Mahoney Present (yellow output) Edema: Yes Edema: LLE: 1+ (foot), RLE: 1+ (foot) Peripheral Pulses WNL: (+2 rt pedal, +1 left pedal pulse) Integumentary: Yes: Other (appears dry) Neurological: Yes: Other (arousable) Labs: Abnormal Lab Results 05/30/16 05/30/16 05/30/16 16:37 16:37 16:37 WBC Hgb Hct MCV MCHC RDW D-Dimer 607 H ABG pO2 at Pt Temp ABG HCO3 ABG O2 Content ABG Base Excess VBG pH POC VBG pCO2 Mixed VBG HCO3 Potassium 5.3 H D BUN 19 H Random Glucose 216 H D Lactic Acid Calcium 8.3 L B-Natriuretic Peptide 5692.86 H Total Protein 6.0 L Albumin 2.5 L Urine Protein 2+ H Urine Glucose (UA) 3+ H 05/30/16 05/30/16 05/30/16 16:45 17:00 17:00 WBC 12.7 H Hgb 8.8 L Hct 29.9 L MCV 71.6 L MCHC 29.3 L RDW 22.9 H D-Dimer ABG pO2 at Pt Temp ABG HCO3 ABG O2 Content ABG Base Excess VBG pH 7.13 L* POC VBG pCO2 91.5 H* Mixed VBG HCO3 29.4 H Potassium BUN Random Glucose Lactic Acid 4.338 H* Calcium B-Natriuretic Peptide Total Protein Albumin Urine Protein Urine Glucose (UA) 05/30/16 19:44 WBC Hgb Hct MCV MCHC RDW D-Dimer ABG pO2 at Pt Temp 134.0 H D ABG HCO3 28.6 H ABG O2 Content 11.7 L ABG Base Excess 4.4 H VBG pH POC VBG pCO2 Mixed VBG HCO3 Potassium BUN Random Glucose Lactic Acid Calcium B-Natriuretic Peptide Total Protein Albumin Urine Protein Urine Glucose (UA) Imaging - Results Chest X-ray: Image Reviewed Ultrasound: Report Reviewed Other: Other (CTA discussed with Dr. Rawls, per report no PE appreciated) Assessment/Plan Pt is a 75yr old woman with PMHx of O2 dependent (3L ~200 min/day) COPD, pulm HTN, current smoker, CAD, HTN, HLD, CHF stable AAA, breast cancer s/p lumpectomy , chemo and raditation, subdural intracranial bleed. Pt now in the ICU for management of acute on chronic hypercapneic and hypoxic respiratory failure requiring intubation, likely in the setting of COPD exacerbation +/- CHF +/- HCAP. Pulm: -Continue mechanical ventilation overnight with light sedation -SBT as able -Nebulizers standing and PRN -f/u repeat abg and chest xray -Lasix prn -IV steroids, taper as able ID: sepsis AEB lactic acidosis (though possibly contributed to by albuterol as quickly resolved) leukocytosis, fever to 101 -f/u cultures -Consult -Empiric Vanc/Zosyn/Azith started -trend lactic acid Renal -Gentle hydration as tolerated -Monitor electrolytes -Lasix PRN -Strict I/Os Cardiac -Consult -f/u enzymes -BP control (currently normotensive without antihypertensives) -Statin Neuro -Pain management without deep sedation Prophylactic -Continue home PPI -DVT
[2016-05-30] MEDS ORDERED: methylPREDNISolone NA SUCC 125 MG/2 ML VIAL IVPB SCH (22:45)
[2016-05-30] MEDS ORDERED: ALBUTEROL SO4 0.083% IH SOL 2.5 MG/3 ML VIAL.NEB. NEB PRN (23:09)
[2016-05-30] MEDS: SODIUM CHLORIDE 1,000 ML IV SCH (23:09)
[2016-05-30 23:23] VITALS: BMI 20.3
[2016-05-31 00:22] LABS: CALCIUM 8.3 mg/dL (8.5-10.1); CREATININE 0.9 mg/dL (0.55-1.02)
[2016-05-31 00:47] LABS: TROPONIN I 0.74 ng/ml (0.00-0.05)
[2016-05-31] MEDS ORDERED: ASPIRIN 81 MG CHEWABLE TABLETS PO ONE (00:50)
[2016-05-31] MEDS ORDERED: ATORVASTATIN CA 80 MG TABLET (FP) PO ONE (00:56)
[2016-05-31 01:01] LABS: BASOPHIL 0.2 % (0-2.0); MEAN CELL VOLUME 70.1 fl (80-96); MEAN PLT VOLUME 8.4 fl (7.5-11.1); NEUTROPHILS 96.5 % (42.8-82.8); PLATELET COUNT 202 K/MM3 (134-434); WHITE BLOOD COUNT 12.2 K/mm3 (4.0-10.0)
[2016-05-31] MEDS: OSELTAMIVIR PHOSPHATE 6 MG/1 ML - 60ML BOTTLE PO SCH ×3 (01:12→21:43)
--- NOTE | 2016-05-31 02:30 | PROC ---
Central Line Insertion Indication: Sepsis Risks and Benefits Explained: No Consent on Chart: No Central Line: Triple Lumen Catheter Anesthesia: 1% Lidocaine Sterile Technique: Yes Ultrasound Guided Assistance: Yes Position: Right Internal Jugular Post Insertion: Yes: Bilateral Breath Sounds, Bilateral Chest Expansion, Chest X-Ray Ordered Sterile Dressing Applied: Yes Remarks: Multiple attempts to reach pt's person to contact (only person with a phone number on file) Marichuy Karla at [phone] without an answer. Case discussed with Dr. Mcdowell who agrees with central line placement. +flush and blood return x3. Chest xray pending.
[2016-05-31 03:40] LABS: BASOPHIL 0.4 % (0-2.0); MCH 21.1 pg (25.7-33.7); MCHC 30.6 g/dl (32.0-36.0); MEAN CELL VOLUME 68.9 fl (80-96); MEAN PLT VOLUME 8.8 fl (7.5-11.1); NEUTROPHILS 96.3 % (42.8-82.8); PLATELET COUNT 210 K/MM3 (134-434); RDW 22.6 % (11.6-15.6); WHITE BLOOD COUNT 11.2 K/mm3 (4.0-10.0)
[2016-05-31] MEDS ORDERED: PIPERACILLIN/TAZOB 3.375 GM/50 ML PRE-DOCKED IVPB ONE (04:00)
[2016-05-31 04:05] LABS: MAGNESIUM 2.5 mg/dL (1.8-2.4); PHOSPHOROUS 3.2 mg/dL (2.5-4.9)
[2016-05-31 04:24] LABS: TROPONIN I 0.8 ng/ml (0.00-0.05)
[2016-05-31] MEDS: INSULIN SLIDING SCALE (NOVOLOG) 1 VIAL SQ SCH ×3 (05:59→17:01)
[2016-05-31] MEDS ORDERED: methylPREDNISolone NA SUCC 40 MG/1 ML VIAL IVPB ONE (06:00)
[2016-05-31] MEDS: ALBUTEROL SO4 2.5/IPRATROPIUM 0.5 INH SOL 3 ML VIAL.NEB. NEB SCH ×4 (06:25→17:59)
[2016-05-31 06:45] LABS: ALBUMIN 2.2 g/dl (3.4-5.0); ANION GAP 7 (8-16); BILIRUBIN,TOTAL 0.3 mg/dL (0.2-1.0); CALCIUM 8.3 mg/dL (8.5-10.1); CO2 30 mmol/L (21-32); CREATININE 0.6 mg/dL (0.55-1.02); GLUCOSE,RANDOM 180 mg/dL (74-106); SGOT/AST 37 U/L (15-37); SGPT/ALT 29 U/L (12-78); TOT PROT 5.2 g/dl (6.4-8.2)
[2016-05-31 06:46] LABS: ALK PHOS 49 U/L (45-117)
[2016-05-31 07:13] LABS: ARTERIAL BLD GAS O2 SATURATION 95.5 % (90-98.9); ARTERIAL BLOOD GAS BASE EXCESS 4.4 meq/l (-2-2); ARTERIAL BLOOD GAS HCO3 29.1 meq/L (22-26); ARTERIAL BLOOD GAS PO2 78.4 mmHg (70-100)
[2016-05-31 07:15] LABS: ALLENS TEST POSITIVE; ART PUNCT SITE RIGHT RADIAL; LPM/O2% 35%; MECH. VENT. YES; PT. ON O2? YES; TYPE OF O2 MEC.VENT
[2016-05-31 07:23] LABS: VENT RATE 14; VT/PRESS 400
[2016-05-31] MEDS: FENTANYL INJECTION 500 MCG in DEXTROSE 5%-WATER - 90 ML IJ SCH ×2 (07:50→17:00)
[2016-05-31] MEDS ORDERED: PT OWN MED DRAWER 7, Y5N ONE (09:06)
[2016-05-31] MEDS: PANTOPRAZOLE SODIUM 40 MG/100 ML PRE-DOCKED IVPB SCH (09:06)
[2016-05-31] MEDS: NICOTINE 14 MG/24 HOURS TOPICAL PATCH TD SCH (09:07)
[2016-05-31] MEDS: dilTIAZem HCL 30 MG TABLET (FP) GT SCH ×4 (09:07→21:33)
[2016-05-31 09:08] LABS: MCH 21.1 pg (25.7-33.7); MCHC 30.2 g/dl (32.0-36.0); MEAN CELL VOLUME 69.8 fl (80-96); MEAN PLT VOLUME 8.7 fl (7.5-11.1); PLATELET COUNT 186 K/MM3 (134-434); RDW 22.7 % (11.6-15.6); WHITE BLOOD COUNT 10.6 K/mm3 (4.0-10.0)
--- NOTE | 2016-05-31 09:12 | PN ---
Physical Exam: SUBJECTIVE: Patient seen and examined at bedside. She's intubated but arousable and follows commands. Pt nodded when asked if she's in pain, shaked her head when asked whether she has other complaints. OBJECTIVE: Intubated Day 1 on AC RR 14, TV 400, FiO2 35%, PEEP 5 On fentanyl Vital Signs Period Temp Pulse Resp BP Sys/Rasheed Pulse Ox Last 24 Hr 99.3 F-100.0 F 80-100 14-16 97-124/46-63 35-100 GENERAL: Arousable and aware, orientation not assessed due to intubated, follows commands HEAD: AT, NC EYES: Pupils equal, round and reactive to light, sclera anicteric, conjunctiva clear EARS, NOSE, THROAT: nares patent oropharynx clear without exudates LUNGS: bilaterally biphasic wheezing HEART: Tachycardic, S1 and S2, ejection murmur, rub ABDOMEN: +bs, soft, diffuse tenderness, no rebound, guarding EXTREMITIES: cold extremities. No peripheral edema. ABG Results ABG pH 7.40 (7.35-7.45) 05/31/16 07:05 ABG pCO2 at Pt Temp 47.6 mmHg (35-45) H 05/31/16 07:05 ABG pO2 at Pt Temp 78.4 mmHg (70-100) D 05/31/16 07:05 ABG HCO3 29.1 meq/L (22-26) H 05/31/16 07:05 ABG O2 Sat (Measured) 95.5 % (90-98.9) 05/31/16 07:05 ABG O2 Content 10.3 % vol (15-22) L 05/31/16 07:05 ABG Base Excess 4.4 meq/l (-2-2) H 05/31/16 07:05 CBCD WBC 10.6 K/mm3 (4.0-10.0) H 05/31/16 08:20 RBC 3.65 M/mm3 (3.60-5.2) 05/31/16 08:20 Hgb 7.7 GM/dL (10.7-15.3) L 05/31/16 08:20 Hct 25.5 % (32.4-45.2) L 05/31/16 08:20 MCV 69.8 fl (80-96) L 05/31/16 08:20 MCHC 30.2 g/dl (32.0-36.0) L 05/31/16 08:20 RDW 22.7 % (11.6-15.6) H 05/31/16 08:20 Plt Count 186 K/MM3 (134-434) 05/31/16 08:20 MPV 8.7 fl (7.5-11.1) 05/31/16 08:20 CMP Sodium 136 mmol/L (136-145) 05/31/16 08:20 Potassium 4.5 mmol/L (3.5-5.1) 05/31/16 08:20 Chloride 101 mmol/L (98-107) 05/31/16 08:20 Carbon Dioxide 28 mmol/L (21-32) 05/31/16 08:20 Anion Gap 7 (8-16) L 05/31/16 08:20 BUN 15 mg/dL (7-18) 05/31/16 08:20 Creatinine 0.6 mg/dL (0.55-1.02) 05/31/16 08:20 Creat Clearance w eGFR > 60 (>60) 05/31/16 05:05 Calcium 8.4 mg/dL (8.5-10.1) L 05/31/16 08:20 Total Bilirubin 0.3 mg/dL (0.2-1.0) D 05/31/16 05:05 AST 37 U/L (15-37) 05/31/16 05:05 ALT 29 U/L (12-78) D 05/31/16 05:05 Alkaline Phosphatase 49 U/L (45-117) 05/31/16 05:05 Total Protein 5.2 g/dl (6.4-8.2) L 05/31/16 05:05 Albumin 2.2 g/dl (3.4-5.0) L 05/31/16 05:05 Intake & Output 05/28/16 05/29/16 05/30/16 05/31/16 23:59 23:59 23:59 23:59 Intake Total 1124 919 Output Total 400 300 Balance 724 619 Weight 57.198 kg 58.088 kg Active Medications Generic Name Dose Route Start Last Admin Trade Name Freq PRN Reason Stop Dose Admin Albuterol Sulfate 1 amp 05/30/16 23:09 Ventolin 0.083% Nebulizer Soln - NEB Q4H PRN SHORT OF BREATH/WHEEZING Albuterol/Ipratropium 1 amp 05/31/16 00:00 05/31/16 06:25 Duoneb - NEB 1 amp QIDR YEISON Administration Atorvastatin Calcium 80 mg 05/31/16 22:00 Lipitor - PO HS YEISON Diltiazem HCl 30 mg 05/31/16 10:00 Cardizem - GT QID [facility] Docusate Sodium 100 mg 05/31/16 10:00 Colace - PO DAILY [facility] Sodium Chloride 1,000 mls @ 75 mls/hr 05/30/16 22:30 05/30/16 23:09 Normal Saline - IV 75 mls/hr ASDIR YEISON Administration Fentanyl 500 mcg/ Dextrose 100 mls @ 5 mls/hr 05/30/16 22:30 05/31/16 07:50 IJ 10 mls/hr TITR YEISON Administration 25 MCG/HR Azithromycin 250 mg/ Dextrose 250 mls @ 250 mls/hr 05/31/16 18:00 IVPB DAILY@1800 [facility] Insulin Aspart 1 vial 05/31/16 07:00 05/31/16 05:59 Novolog Vial Sliding Scale - SQ 2 units TIDAC [facility] Administration Protocol Methylprednisolone Sodium Succinate 40 mg 05/31/16 14:00 Solu-Medrol - IVPB Q6H-IV [facility] Nicotine 14 mg 05/31/16 10:00 Nicoderm Patch - TD DAILY [facility] Oseltamivir Phosphate 75 mg 05/31/16 01:00 05/31/16 01:12 Tamiflu Oral Suspension - PO 06/06/16 10:01 75 mg BID [facility] Administration Pantoprazole Sodium 40 mg 05/31/16 10:00 Protonix 40mg Ivpb (Pre-Docked) IVPB DAILY [facility] Microbiology 05/30/16 23:30 Nasopharyngeal Swab Influenza Types A positive Imaging CXR on 05/31: no acute pathology ASSESSMENT/PLAN: 75 yo F h/o COPD with chronic bronchitis on home O2, HTN, HLD, CHF, CAD, stable AAA, left breast CA s/p lumpectomy and radiation therapy, remote history of intracranial bleed admitted to the ICU for acute on chronic hypercapneic respiratory failure in the setting of COPD and CHF exacerbation and flu. Respiratory: acute on chronic hypercapneic respiratory failure - On mechanical ventilation, see settings above - Nebulizers YEISON and PRN - Solumedrol 40mg Q6H - Lasix prn - SBT as tolerated ID: Sepsis 2/2 influenza A - On tamiflu - Received vanco zosyn in ED - Cont. azitromycin day 1 - Contact isolation - Cont. to trend lactate Cardiac: NSTEMI vs. Demand ischemia - Troponins trending down with EKG changes - Hold off heparin due to h/o bleed - Will start asa suppository - SVT on cardizem 30mg Q6H via OGT * was on home verampil Heme: Microcytic anemia - Hgb 7.8 with baseline from -12 in 2015 - Monitor H&H - Transfuse if < 7 FEN - NS 75ml/hr - Normal lytes, cont. to monitor - NPO for now Prophylaxis - DVT: SCDs - GI: daily PPI Disposition - Cont. to monitor in ICU Code status - Full code Visit type - Emergency Visit Emergency Visit: No - New Patient This patient is new to me today: Yes Date on this admission: 05/31/16 - Critical Care Critical Care patient: Yes Total Critical Care Time (in minutes): 35 Critical Care Statement: The care of this patient involved high complexity decision making to prevent further life threatening deterioration of the patient 's condition and/or to evalute & treat vital organ system(s) failure or risk of failure.
--- NOTE | 2016-05-31 09:33 | PN ---
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, Physician Chief Complaint: Well known to our service, recently discharged after admission for AECOPD and diastolic CHF. Now re-admitted with fever, respiratory distress, +Influenza A, acute respiratory failure requiring intubation and worsening anemia. Elevated TnI and ECG changes. Seen and examined in ICU, intubated. On sedation. TELE: NSR, NSST changes, short paroxyms PSVT History of Present Illness: PMH: Chest pain, h/o CAD w/ prior coronary intervention years ago, has refused cardiac cath on multiple recent occasions History breast cancer, lung mass with negative bx COPD, chronic with chronic hypoxemia Mild PSVT Chronic diastolic CHF Carotid stenosis s/p CEA Subdural hematoma - Current Medication List Current Medications: Active Medications Albuterol Sulfate (Ventolin 0.083% Nebulizer Soln -) 1 amp NEB Q4H PRN PRN Reason: SHORT OF BREATH/WHEEZING Albuterol/Ipratropium (Duoneb -) 1 amp NEB QIDR [facility] Last Admin: 05/31/16 06:25 Dose: 1 amp Atorvastatin Calcium (Lipitor -) 80 mg PO HS [facility] Diltiazem HCl (Cardizem -) 30 mg GT QID [facility] Last Admin: 05/31/16 09:07 Dose: 30 mg Docusate Sodium (Colace -) 100 mg PO DAILY [facility] Sodium Chloride (Normal Saline -) 1,000 mls @ 75 mls/hr IV ASDIR [facility] Last Admin: 05/30/16 23:09 Dose: 75 mls/hr Fentanyl 500 mcg/ Dextrose 100 mls @ 5 mls/hr IJ TITR [facility] PRN Reason: 25 MCG/HR Last Admin: 05/31/16 07:50 Dose: 10 mls/hr Azithromycin 250 mg/ Dextrose 250 mls @ 250 mls/hr IVPB DAILY@1800 [facility] Insulin Aspart (Novolog Vial Sliding Scale -) 1 vial SQ TIDAC [facility] PRN Reason: Protocol Last Admin: 05/31/16 05:59 Dose: 2 units Methylprednisolone Sodium Succinate (Solu-Medrol -) 40 mg IVPB Q6H-IV [facility] Nicotine (Nicoderm Patch -) 14 mg TD DAILY [facility] Last Admin: 05/31/16 09:07 Dose: 14 mg Oseltamivir Phosphate (Tamiflu Oral Suspension -) 75 mg PO BID [facility] Stop: 06/06/16 10:01 Last Admin: 05/31/16 09:07 Dose: 75 mg Pantoprazole Sodium (Protonix 40mg Ivpb (Pre-Docked)) 40 mg IVPB DAILY [facility] Last Admin: 05/31/16 09:06 Dose: 40 mg - Objective Vital Signs: Vital Signs Temperature 100.0 F H 05/31/16 08:00 Pulse Rate 90 05/31/16 08:00 Respiratory Rate 14 05/31/16 08:00 Blood Pressure 124/49 05/31/16 08:00 O2 Sat by Pulse Oximetry (%) 99 05/31/16 08:00 Constitutional: Yes: Other (+ ETT) Eyes: Yes: Other (anicteric) Cardiovascular: Yes: Regular Rate and Rhythm Respiratory: Yes: Other (= breath sounds b/l. No active wheezing) Gastrointestinal: Yes: Soft Edema: No Labs: CBC, BMP 05/31/16 08:20 INR, PTT INR 0.98 (0.82-1.09) 05/30/16 17:00 Laboratory Tests 05/30/16 05/30/16 05/30/16 16:37 16:45 17:00 WBC Hgb Plt Count INR 0.98 ABG pH ABG pCO2 at Pt Temp ABG pO2 at Pt Temp ABG O2 Sat (Measured) VBG pH 7.13 L* POC VBG pCO2 91.5 H* Mixed VBG HCO3 29.4 H Potassium BUN Creatinine Creatine Kinase 43 Troponin I 0.05 Opiates Screen Methadone Screen Barbiturate Screen Phencyclidine Screen Ur Amphetamines Screen MDMA (Ecstasy) Screen Benzodiazepines Screen Cocaine Screen U Marijuana (THC) Screen 05/30/16 05/30/16 05/30/16 19:44 20:20 23:30 WBC Hgb Plt Count INR ABG pH 7.43 ABG pCO2 at Pt Temp 43.7 ABG pO2 at Pt Temp 134.0 H D ABG O2 Sat (Measured) 98.8 VBG pH POC VBG pCO2 Mixed VBG HCO3 Potassium BUN Creatinine Creatine Kinase 62 Troponin I 0.74 H* Opiates Screen Negative Methadone Screen Negative Barbiturate Screen Negative Phencyclidine Screen Negative Ur Amphetamines Screen Negative MDMA (Ecstasy) Screen Negative Benzodiazepines Screen Negative Cocaine Screen Negative U Marijuana (THC) Screen Negative 05/31/16 05/31/16 05/31/16 03:25 05:05 07:05 WBC Hgb Plt Count INR ABG pH ABG pCO2 at Pt Temp ABG pO2 at Pt Temp ABG O2 Sat (Measured) 95.5 VBG pH POC VBG pCO2 Mixed VBG HCO3 Potassium 4.3 BUN 16 Creatinine 0.6 D Creatine Kinase 51 Troponin I 0.80 H* Opiates Screen Methadone Screen Barbiturate Screen Phencyclidine Screen Ur Amphetamines Screen MDMA (Ecstasy) Screen Benzodiazepines Screen Cocaine Screen U Marijuana (THC) Screen 05/31/16 08:20 WBC 10.6 H Hgb 7.7 L Plt Count 186 INR ABG pH ABG pCO2 at Pt Temp ABG pO2 at Pt Temp ABG O2 Sat (Measured) VBG pH POC VBG pCO2 Mixed VBG HCO3 Potassium BUN Creatinine Creatine Kinase Troponin I Opiates Screen Methadone Screen Barbiturate Screen Phencyclidine Screen Ur Amphetamines Screen MDMA (Ecstasy) Screen Benzodiazepines Screen Cocaine Screen U Marijuana (THC) Screen - ....Imaging Cat Scan: Report Reviewed (Negative for Pulmonary embolism) Ultrasound: Report Reviewed (negative for DVT) EKG: Image Reviewed (12 lead ECG personally reviewed: NSR 89bpm, LVH. NSST changes II, III, avF and V5 and V5 new from 05/25) Assessment/Plan +Influenza Acute respiratory failure Worsening anemia NSTEMI History breast cancer, lung mass with negative bx COPD, chronic with chronic hypoxemia Mild PSVT Chronic diastolic CHF Carotid stenosis s/p CEA REC: 1. Acute respiratory failure: + influenza Vent support Wean vent as per ICU team 2. Anemia: -stool guaiac -Follow H/H -Consider transfusing for Hb< 8 3. NSTEMI: -in setting of acute illness, acute resp failure. -Known/suspected underlying CAD -Has has anginal sx for some time, despite maximal medical rx: has refused cath on multiple occasions -Repeat echo, serial ecs and enzymes -Rate control of PSVT with short acting cardizem -Transfusional support -ASA if Hb stabilizes and stool guaiac negative.
[2016-05-31] MEDS: DOCUSATE SODIUM 100 MG CAPSULE (FP) PO SCH (09:36)
[2016-05-31 09:48] LABS: CALCIUM 8.4 mg/dL (8.5-10.1); CREATININE 0.6 mg/dL (0.55-1.02)
[2016-05-31] MEDS ORDERED: AZITHROMYCIN IVPB 500 MG in DEXTROSE 5%-WATER - 250 ML IVPB SCH (10:00)
[2016-05-31] MEDS ORDERED: AZITHROMYCIN IVPB 500 MG/250 ML D5W PRE-DOCKED IVPB SCH (10:00)
[2016-05-31] MEDS ORDERED: PANTOPRAZOLE SODIUM 40 MG in SODIUM CHLORIDE 100 ML IVPB SCH (10:00)
[2016-05-31 10:10] LABS: TROPONIN I 0.64 ng/ml (0.00-0.05)
--- NOTE | 2016-05-31 11:52 | EKG ---
Test Reason : Blood Pressure : / mmHG Vent. Rate : 087 BPM Atrial Rate : 087 BPM P-R Int : 148 ms QRS Dur : 100 ms QT Int : 390 ms P-R-T Axes : 080 -28 239 degrees QTc Int : 469 ms NORMAL SINUS RHYTHM LEFT VENTRICULAR HYPERTROPHY WITH REPOLARIZATION ABNORMALITY T WAVE ABNORMALITY, CONSIDER INFEROLATERAL ISCHEMIA ABNORMAL ECG WHEN COMPARED WITH ECG OF 31-MAY-2016 00:51, T WAVE VARIATION Confirmed by NAYLA MCCORD, DAMIAN ([id number]) on 05/31/2016 11:51:44 AM Referred By: Jory RODRIGUEZ Confirmed By:DAMIAN WINSLOW MD
--- NOTE | 2016-05-31 11:55 | EKG ---
Test Reason : Blood Pressure : / mmHG Vent. Rate : 090 BPM Atrial Rate : 090 BPM P-R Int : 148 ms QRS Dur : 100 ms QT Int : 392 ms P-R-T Axes : 069 -28 234 degrees QTc Int : 479 ms NORMAL SINUS RHYTHM POSSIBLE LEFT ATRIAL ENLARGEMENT LEFT VENTRICULAR HYPERTROPHY WITH REPOLARIZATION ABNORMALITY CANNOT RULE OUT SEPTAL INFARCT (CITED ON OR BEFORE 20-MAY-2016) ABNORMAL ECG WHEN COMPARED WITH ECG OF 20-MAY-2016 07:24, Confirmed by DAMIAN WINSLOW MD ([id number]) on 05/31/2016 11:54:50 AM Referred By: Confirmed By:DAMIAN WINSLOW MD
--- NOTE | 2016-05-31 12:03 | PN ---
Teaching Attending Note Name of Resident: Conrad Pagan ATTENDING PHYSICIAN STATEMENT I saw and evaluated the patient. I reviewed the resident's note and discussed the case with the resident. I agree with the resident's findings and plan as documented. SUBJECTIVE: Pt seen and examined in the ICU. Remains intubated, sedated but arousable. Oxygenating well on volume assist control with 35% FiO2. OBJECTIVE: Last Vital Signs Temp Pulse Resp BP Pulse Ox 100.1 F H 83 16 127/50 95 05/31/16 10:00 05/31/16 10:00 05/31/16 11:35 05/31/16 10:00 05/31/16 09:40 Intake & Output 05/28/16 05/29/16 05/30/16 05/31/16 23:59 23:59 23:59 23:59 Intake Total 1124 919 Output Total 400 300 Balance 724 619 Weight 126 lb 1.6 oz 128 lb 1 oz Gen: intubated, sedated Heart: RRR Lung: bilateral wheezes, rhonchi Abd: soft, nontender Ext: no edema CBC, BMP 05/31/16 08:20 05/31/16 08:20 Active Medications Albuterol Sulfate (Ventolin 0.083% Nebulizer Soln -) 1 amp NEB Q4H PRN PRN Reason: SHORT OF BREATH/WHEEZING Albuterol/Ipratropium (Duoneb -) 1 amp NEB QIDR [facility] Last Admin: 05/31/16 11:45 Dose: 1 amp Atorvastatin Calcium (Lipitor -) 80 mg PO HS [facility] Diltiazem HCl (Cardizem -) 30 mg GT QID [facility] Last Admin: 05/31/16 09:07 Dose: 30 mg Docusate Sodium (Colace -) 100 mg PO DAILY [facility] Last Admin: 05/31/16 09:36 Dose: Not Given Sodium Chloride (Normal Saline -) 1,000 mls @ 75 mls/hr IV ASDIR [facility] Last Admin: 05/30/16 23:09 Dose: 75 mls/hr Fentanyl 500 mcg/ Dextrose 100 mls @ 5 mls/hr IJ TITR YE[facility] PRN Reason: 25 MCG/HR Last Titration: 05/31/16 10:00 Dose: 100 mcg/hr Azithromycin 250 mg/ Dextrose 250 mls @ 250 mls/hr IVPB DAILY@1800 [facility] Propofol (Diprivan -) 100 mls @ 1.743 mls/hr IVPB TITR [facility]; 5 MCG/KG/MIN PRN Reason: Protocol Insulin Aspart (Novolog Vial Sliding Scale -) 1 vial SQ TIDAC [facility] PRN Reason: Protocol Last Admin: 05/31/16 11:20 Dose: 1 units Methylprednisolone Sodium Succinate (Solu-Medrol -) 40 mg IVPB Q6H-IV [facility] Nicotine (Nicoderm Patch -) 14 mg TD DAILY [facility] Last Admin: 05/31/16 09:07 Dose: 14 mg Oseltamivir Phosphate (Tamiflu Oral Suspension -) 75 mg PO BID [facility] Stop: 06/06/16 10:01 Last Admin: 05/31/16 09:07 Dose: 75 mg Pantoprazole Sodium (Protonix 40mg Ivpb (Pre-Docked)) 40 mg IVPB DAILY [facility] Last Admin: 05/31/16 09:06 Dose: 40 mg ASSESSMENT AND PLAN: Acute on Chronic Hypoxic and Hypercapneic Respiratory Failure Influenza A Acute COPD Exacerbation CAD +Troponins/Acute NSTEMI Lactic Acidosis h/o Breast Ca Lung Nodules with recent biopsy showing necrotizing granulomas Smoker - tamiflu - empiric antibiotics for now - f/u cultures - inhaled bronchodilators - medrol - O2 to keep SpO2 >90% - trend cardiac enzymes, lactate - hold sedation in AM to assess mental status - spontaneous breathing trials as tolerated when mental status improved - enteral feeds if unable to extubate - DVT/GI prophylaxis - ICU monitoring CCT 38'
--- NOTE | 2016-05-31 12:06 | EKG ---
Test Reason : Blood Pressure : / mmHG Vent. Rate : 092 BPM Atrial Rate : 092 BPM P-R Int : 146 ms QRS Dur : 108 ms QT Int : 374 ms P-R-T Axes : 078 -38 027 degrees QTc Int : 462 ms NORMAL SINUS RHYTHM POSSIBLE LEFT ATRIAL ENLARGEMENT LEFT AXIS DEVIATION INCOMPLETE RIGHT BUNDLE BRANCH BLOCK LEFT VENTRICULAR HYPERTROPHY CANNOT RULE OUT SEPTAL INFARCT (CITED ON OR BEFORE 20-MAY-2016) ABNORMAL ECG WHEN COMPARED WITH ECG OF 20-MAY-2016 07:24, PREMATURE SUPRAVENTRICULAR COMPLEXES ARE NO LONGER PRESENT Confirmed by DAMIAN WINSLOW MD ([id number]) on 05/31/2016 12:06:25 PM Referred By: Confirmed By:DAMIAN WINSLOW MD
[2016-05-31] MEDS: PROPOFOL 100 ML IVPB SCH (12:24)
[2016-05-31] MEDS: methylPREDNISolone NA SUCC 40 MG/1 ML VIAL IVPB SCH ×2 (13:05→21:33)
[2016-05-31] MEDS: SODIUM CHLORIDE 1,000 ML IV SCH (13:57)
--- NOTE | 2016-05-31 17:03 | CONSULT ---
Consult Consult Specialty:: infectious diseases Referred by:: Reason for Consultation:: pneumonia,influenza - History of Present Illness Chief Complaint: intubated History of Present Illness: Pt is a 75yr old woman with PMHx of O2 dependent (3L ~200 min/day) COPD, pulm HTN, current smoker, CAD, HTN, HLD, CHF stable AAA, breast cancer s/p lumpectomy , chemo and raditation, subdural intracranial bleed. Pt recently admitted 05/20- for CHF and COPD exacerbation. Pt called EMS today from home with CC of SOB. Per report when EMS arrived pt was wheezing with rhonchi and hypoxia, given nebs IV steroids, IV mag and given cpap without adequate response and was subsequently intubated. In the ER pt initial vital signs 145/62, HR 97, temp 101 , 100% on fio2 50%. WBC 12.7, h/h 8.8/29.9, lactic acid 4.388, K 5.3, BNP 5692, urine 2+ protein and 3+ glucose. Pt given Vanc/Zosyn/Azith IVF and IV tylenol and admitted to the ICU for further management. Pt received in the ICU 115/53, 80s (sinus on tele), 99.6 rectal temp, 400/5/14/35 sating 100%. Lung biopsy from 05/04/16 -- Lung, left, pleural based lesion. Benign pulmonary tissue with necrotizing granulomatous inflammation. No acid fast bacilli are identified with AFB stain; no fungal organisms are identified with GMS stain. The above history was obtained from the chart as the patient is intubated she is awake ,and following commands patient was worked up and was found to be positive for influenza currently stable on vent discussed with the nursing staff and the residents about the case - History Source History Provided By: Medical Record Limitations to Obtaining History: Clinical Condition - Past Medical History [employer]: Yes: Other (SDH) Cardio/Vascular: Yes: CAD, CHF, HTN, Other (carotid stenosis s/p CEA) Pulmonary: Yes: COPD, O2 Dependent, Other (Lung nodules) - Past Surgical History Past Surgical History: Yes: Carotid Endarterectomy (right), Hysterectomy - Alcohol/Substance Use Hx Alcohol Use: No History of Substance Use: reports: None - Smoking History Smoking history: Current every day smoker Have you smoked in the past 12 months: Yes Aproximately how many cigarettes per day: 2 If you are a former smoker, when did you quit?: pt was smoking a cig prior to ems arrival - Social History Usual Living Arrangement: Alone ADL: Independent History of Recent Travel: No Home Medications - Allergies Allergies/Adverse Reactions: Allergies Allergy/AdvReac Type Severity Reaction Status Date / Time No Known Allergies Allergy Verified 05/30/16 16:46 - Home Medications Home Medications: Ambulatory Orders Cholecalciferol (Vitamin D3) [Vitamin D3 -] 1,000 unit PO DAILY #30 tab Albuterol Sulfate [Proair Hfa -] 2 inh PO BID 06/14/14 Omeprazole 20 mg PO DAILY 09/29/15 Acetaminophen [Tylenol Extra Strength] 500 mg PO QID #90 tablet 02/22/16 Aspirin [ASA -] 81 mg PO DAILY tab.chew 02/22/16 Atorvastatin Ca [Lipitor] 40 mg PO HS tablet 02/22/16 Budesonide/Formeterol Fumarate [SYMBICORT 160/4.5mcg -] 2 puff IH BID inhaler 02/22/16 Lisinopril [Prinivil] 10 mg PO DAILY tablet 02/22/16 Nitroglycerin Sublingual [Nitrostat -] 0.4 mg SL Q5M PRN #30 tab 02/22/16 Ranolazine [Ranexa -] 500 mg PO BID tab 02/22/16 Aclidinium Jerome [Tudorza -] 1 puff IH BID #1 inhaler 05/28/16 Amox-Tr/K Cl [Augmentin 875-125mg Tablet -] 1 tab PO BID@0800,1730 #8 tablet Docusate Sodium [Colace -] 100 mg PO TID #90 cap 05/28/16 Furosemide [Lasix -] 40 mg PO DAILY #30 tablet 05/28/16 Guaifenesin [Robitussin -] 10 ml PO Q4H PRN #0 05/28/16 Isosorbide Mononitrate [Imdur -] 30 mg PO DAILY #30 tab MDD 1 05/28/16 Nicotine Patch [Nicoderm Patch -] 14 mg TD DAILY #15 patch 05/28/16 Prednisone [Deltasone -] 30 mg PO DAILY #30 tablet 05/28/16 Roflumilast [Daliresp -] 500 mcg PO DAILY #30 tablet 05/28/16 Verapamil HCl ER [Calan Sr -] 120 mg PO DAILY #30 tab 05/28/16 Family Disease History - Family Disease History Family Disease History: CA: Father (widespread, unsure of which type), Other: Mother ( of brain hemorrhage after trauma) Review of Systems Unable to obtain ROS, reason: unable to obtain Physical Exam Vital Signs: Vital Signs Temperature 100.6 F H 05/31/16 16:00 Pulse Rate 75 05/31/16 16:00 Respiratory Rate 16 05/31/16 16:00 Blood Pressure 119/82 05/31/16 16:00 O2 Sat by Pulse Oximetry (%) 95 05/31/16 09:40 Constitutional: Yes: No Distress, Calm Eyes: Yes: Conjunctiva Clear HENT: Yes: Atraumatic, Normocephalic Neck: Yes: Supple, Trachea Midline Cardiovascular: Yes: Regular Rate and Rhythm, Murmur Respiratory: Yes: Intubated, Mechanically Ventilated, Rhonchi, Other Gastrointestinal: Yes: Normal Bowel Sounds, Soft Musculoskeletal: Yes: WNL Extremities: Yes: WNL Edema: LLE: 1+, RLE: 1+ Integumentary: Yes: WNL Neurological: Yes: Alert, Oriented Psychiatric: Yes: Alert, Oriented Labs: CBC, BMP 05/31/16 08:20 05/31/16 08:20 Imaging - Results Chest X-ray: Report Reviewed, Image Reviewed Cat Scan: Report Reviewed, Image Reviewed Assessment/Plan Problem List - Problems (1) Respiratory failure Code(s): J96.90 - RESPIRATORY FAILURE, UNSP, UNSP W HYPOXIA OR HYPERCAPNIA Qualifiers: Chronicity: acute Respiratory failure complication: hypoxia and hypercapnia Qualified Code(s): J96.01 - Acute respiratory failure with hypoxia (2) Chronic respiratory failure with hypoxia Code(s): J96.11 - CHRONIC RESPIRATORY FAILURE WITH HYPOXIA (3) CAD (coronary artery disease) Code(s): I25.10 - ATHSCL HEART DISEASE OF [place] CORONARY ARTERY W/O ANG PCTRS (4) COPD (chronic obstructive pulmonary disease) Assessment/Plan: intubated Code(s): J44.9 - CHRONIC OBSTRUCTIVE PULMONARY DISEASE, UNSPECIFIED (5) Chronic diastolic CHF (congestive heart failure) Code(s): I50.32 - CHRONIC DIASTOLIC (CONGESTIVE) HEART FAILURE (6) HLD (hyperlipidemia) Code(s): E78.5 - HYPERLIPIDEMIA, UNSPECIFIED Qualifiers: Hyperlipidemia type: unspecified Qualified Code(s): E78.5 - Hyperlipidemia, unspecified (7) HTN (hypertension) Code(s): I10 - ESSENTIAL (PRIMARY) HYPERTENSION Qualifiers: Hypertension type: essential hypertension Qualified Code(s): I10 - Essential (primary) hypertension (8) History of cigarette smoking Code(s): Z87.891 - PERSONAL HISTORY OF NICOTINE DEPENDENCE i ahve looked at the history and findings of the patient,i ahve a suspicion to have this fulminant resp failure there might be a element of pneumonia plan continue tamiflu will add zosyn continue supportive care as per icu continue to monitor wbc continue to do current mgmt cc time 45 min
[2016-05-31] MEDS: ACETAMINOPHEN 1000 MG/100 ML VIAL (NON FORMULARY) IVPB PRN (17:25)
[2016-05-31] MEDS: AZITHROMYCIN IVPB 250 MG in DEXTROSE 5%-WATER - 250 ML IVPB SCH (17:31)
--- NOTE | 2016-05-31 21:05 | PN ---
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, Physician History of Present Illness: INTUBATED/SEDATED - Current Medication List Current Medications: Active Medications Acetaminophen (Ofirmev Injection -) 1,000 mg IVPB Q6H PRN PRN Reason: FEVER OR PAIN Stop: 06/01/16 11:13 Last Admin: 05/31/16 17:25 Dose: 1,000 mg Albuterol Sulfate (Ventolin 0.083% Nebulizer Soln -) 1 amp NEB Q4H PRN PRN Reason: SHORT OF BREATH/WHEEZING Albuterol/Ipratropium (Duoneb -) 1 amp NEB QIDR [facility] Last Admin: 05/31/16 17:59 Dose: 1 amp Aspirin (Asa Suppository -) 600 mg DC DAILY [facility] Atorvastatin Calcium (Lipitor -) 80 mg PO HS [facility] Diltiazem HCl (Cardizem -) 30 mg GT QID [facility] Last Admin: 05/31/16 17:30 Dose: 30 mg Docusate Sodium (Colace -) 100 mg PO DAILY [facility] Last Admin: 05/31/16 09:36 Dose: Not Given Sodium Chloride (Normal Saline -) 1,000 mls @ 75 mls/hr IV ASDIR [facility] Last Admin: 05/31/16 13:57 Dose: 75 mls/hr Fentanyl 500 mcg/ Dextrose 100 mls @ 5 mls/hr IJ TITR [facility] PRN Reason: 25 MCG/HR Last Admin: 05/31/16 17:00 Dose: 15 mls/hr Azithromycin 250 mg/ Dextrose 250 mls @ 250 mls/hr IVPB DAILY@1800 [facility] Last Admin: 05/31/16 17:31 Dose: 250 mls/hr Propofol (Diprivan -) 100 mls @ 1.743 mls/hr IVPB TITR [facility]; 5 MCG/KG/MIN PRN Reason: Protocol Last Admin: 05/31/16 12:24 Dose: 1.743 mls/hr Insulin Aspart (Novolog Vial Sliding Scale -) 1 vial SQ TIDAC [facility] PRN Reason: Protocol Last Admin: 05/31/16 17:01 Dose: 1 units Methylprednisolone Sodium Succinate (Solu-Medrol -) 40 mg IVPB Q6H-IV [facility] Last Admin: 05/31/16 13:05 Dose: 40 mg Nicotine (Nicoderm Patch -) 14 mg TD DAILY [facility] Last Admin: 05/31/16 09:07 Dose: 14 mg Oseltamivir Phosphate (Tamiflu Oral Suspension -) 75 mg PO BID [facility] Stop: 06/06/16 10:01 Last Admin: 05/31/16 09:07 Dose: 75 mg Pantoprazole Sodium (Protonix 40mg Ivpb (Pre-Docked)) 40 mg IVPB DAILY [facility] Last Admin: 05/31/16 09:06 Dose: 40 mg - Objective Vital Signs: Vital Signs Temperature 99.8 F H 05/31/16 20:00 Pulse Rate 72 05/31/16 20:00 Respiratory Rate 19 05/31/16 20:59 Blood Pressure 118/44 05/31/16 20:00 O2 Sat by Pulse Oximetry (%) 98 05/31/16 20:59 Constitutional: Yes: No Distress HENT: Yes: Atraumatic Neck: Yes: Supple Cardiovascular: Yes: Regular Rate and Rhythm Respiratory: Yes: CTA Bilaterally Gastrointestinal: Yes: Normal Bowel Sounds Extremities: Yes: WNL Neurological: Yes: Alert, Oriented Labs: CBC, BMP 05/31/16 08:20 05/31/16 08:20 INR, PTT INR 0.98 (0.82-1.09) 05/30/16 17:00 Problem List - Problems (1) Respiratory failure Code(s): J96.90 - RESPIRATORY FAILURE, UNSP, UNSP W HYPOXIA OR HYPERCAPNIA Qualifiers: Chronicity: acute Respiratory failure complication: hypoxia and hypercapnia Qualified Code(s): J96.01 - Acute respiratory failure with hypoxia (2) Chronic respiratory failure with hypoxia Code(s): J96.11 - CHRONIC RESPIRATORY FAILURE WITH HYPOXIA (3) CAD (coronary artery disease) Code(s): I25.10 - ATHSCL HEART DISEASE OF [place] CORONARY ARTERY W/O ANG PCTRS (4) COPD (chronic obstructive pulmonary disease) Code(s): J44.9 - CHRONIC OBSTRUCTIVE PULMONARY DISEASE, UNSPECIFIED (5) Chronic diastolic CHF (congestive heart failure) Code(s): I50.32 - CHRONIC DIASTOLIC (CONGESTIVE) HEART FAILURE (6) HLD (hyperlipidemia) Code(s): E78.5 - HYPERLIPIDEMIA, UNSPECIFIED Qualifiers: Hyperlipidemia type: unspecified Qualified Code(s): E78.5 - Hyperlipidemia, unspecified (7) HTN (hypertension) Code(s): I10 - ESSENTIAL (PRIMARY) HYPERTENSION Qualifiers: Hypertension type: essential hypertension Qualified Code(s): I10 - Essential (primary) hypertension (8) History of cigarette smoking Code(s): Z87.891 - PERSONAL HISTORY OF NICOTINE DEPENDENCE (9) Influenza Code(s): J11.1 - FLU DUE TO UNIDENTIFIED INFLUENZA VIRUS W OTH RESP MANIFEST Assessment/Plan Assessment/Plan 1.+Influenza on tamiflu 2.Acute respiratory failure intubated iv steroids abx duo nebs 3.Worsening anemia 4.NSTEMI 5.History breast cancer, lung mass with negative bx 6.COPD, chronic with chronic hypoxemia 7.chf
[2016-05-31] MEDS: ATORVASTATIN CA 80 MG TABLET (FP) PO SCH (21:33)
[2016-06-01] MEDS: FENTANYL INJECTION 500 MCG in DEXTROSE 5%-WATER - 90 ML IJ SCH ×2 (00:20→09:30)
[2016-06-01] MEDS: PROPOFOL 100 ML IVPB SCH ×3 (02:00→12:00)
[2016-06-01] MEDS: methylPREDNISolone NA SUCC 40 MG/1 ML VIAL IVPB SCH ×4 (03:26→21:35)
[2016-06-01 05:50] LABS: MCH 20.8 pg (25.7-33.7); MCHC 29.7 g/dl (32.0-36.0); MEAN PLT VOLUME 8.9 fl (7.5-11.1); PLATELET COUNT 198 K/MM3 (134-434); RDW 22.8 % (11.6-15.6); WHITE BLOOD COUNT 14.2 K/mm3 (4.0-10.0)
[2016-06-01] MEDS: ALBUTEROL SO4 2.5/IPRATROPIUM 0.5 INH SOL 3 ML VIAL.NEB. NEB SCH ×4 (06:00→18:26)
[2016-06-01] MEDS: ACETAMINOPHEN 1000 MG/100 ML VIAL (NON FORMULARY) IVPB PRN (06:06)
[2016-06-01 06:40] LABS: CALCIUM 8.4 mg/dL (8.5-10.1); CREATININE 0.6 mg/dL (0.55-1.02); MAGNESIUM 2.2 mg/dL (1.8-2.4); PHOSPHOROUS 2.9 mg/dL (2.5-4.9)
[2016-06-01] MEDS: INSULIN SLIDING SCALE (NOVOLOG) 1 VIAL SQ SCH ×3 (07:13→16:38)
[2016-06-01] MEDS: SODIUM CHLORIDE 1,000 ML IV SCH (07:14)
[2016-06-01 07:16] LABS: ALLENS TEST POSITIVE; ART PUNCT SITE RIGHT RADIAL; ARTERIAL BLOOD GAS BASE EXCESS 3.2 meq/l (-2-2); ARTERIAL BLOOD GAS HCO3 28.4 meq/L (22-26); ARTERIAL BLOOD GAS pH 7.36 (7.35-7.45); LPM/O2% 100%; MECH. VENT. YES; PT. ON O2? YES; TYPE OF O2 VENT; VENT RATE 14; VT/PRESS 400
[2016-06-01 07:28] LABS: ANISOCYTOSIS 2+; HYPOCHROMIA 2+; MICROCYTOSIS 1+; PLATELET ESTIMATE ADEQUATE (NORMAL); POIKILOCYTOSIS 1+; POLYCHROMASIA 1+
[2016-06-01 07:29] LABS: OVALOCYTES 1+
[2016-06-01] MEDS ORDERED: PT OWN MED DRAWER 7, Y5N ONE (08:41)
--- NOTE | 2016-06-01 08:47 | PN ---
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, Physician Chief Complaint: intubated TELE: some runs PSVT History of Present Illness: Echo normal LV. Mild - Current Medication List Current Medications: Active Medications Acetaminophen (Ofirmev Injection -) 1,000 mg IVPB Q6H PRN PRN Reason: FEVER OR PAIN Stop: 06/01/16 11:13 Last Admin: 06/01/16 06:06 Dose: 1,000 mg Albuterol Sulfate (Ventolin 0.083% Nebulizer Soln -) 1 amp NEB Q4H PRN PRN Reason: SHORT OF BREATH/WHEEZING Albuterol/Ipratropium (Duoneb -) 1 amp NEB QIDR [facility] Last Admin: 06/01/16 06:00 Dose: 1 amp Aspirin (Asa -) 600 mg RC DAILY [facility] Atorvastatin Calcium (Lipitor -) 80 mg PO HS [facility] Last Admin: 05/31/16 21:33 Dose: 80 mg Diltiazem HCl (Cardizem -) 30 mg GT QID [facility] Last Admin: 05/31/16 21:33 Dose: 30 mg Docusate Sodium (Colace -) 100 mg PO DAILY [facility] Last Admin: 05/31/16 09:36 Dose: Not Given Sodium Chloride (Normal Saline -) 1,000 mls @ 75 mls/hr IV ASDIR [facility] Last Admin: 06/01/16 07:14 Dose: 75 mls/hr Fentanyl 500 mcg/ Dextrose 100 mls @ 5 mls/hr IJ TITR [facility] PRN Reason: 25 MCG/HR Last Admin: 06/01/16 00:20 Dose: 10 mls/hr Azithromycin 250 mg/ Dextrose 250 mls @ 250 mls/hr IVPB DAILY@1800 [facility] Last Admin: 05/31/16 17:31 Dose: 250 mls/hr Propofol (Diprivan -) 100 mls @ 1.743 mls/hr IVPB TITR [facility]; 5 MCG/KG/MIN PRN Reason: Protocol Last Admin: 06/01/16 02:00 Dose: 6.971 mls/hr Insulin Aspart (Novolog Vial Sliding Scale -) 1 vial SQ TIDAC [facility] PRN Reason: Protocol Last Admin: 06/01/16 07:13 Dose: 1 units Methylprednisolone Sodium Succinate (Solu-Medrol -) 40 mg IVPB Q6H-IV [facility] Last Admin: 06/01/16 03:26 Dose: 40 mg Nicotine (Nicoderm Patch -) 14 mg TD DAILY [facility] Last Admin: 05/31/16 09:07 Dose: 14 mg Oseltamivir Phosphate (Tamiflu Oral Suspension -) 75 mg PO BID [facility] Stop: 06/06/16 10:01 Last Admin: 05/31/16 21:43 Dose: 75 mg Pantoprazole Sodium (Protonix 40mg Ivpb (Pre-Docked)) 40 mg IVPB DAILY [facility] Last Admin: 05/31/16 09:06 Dose: 40 mg - Objective Vital Signs: Vital Signs Temperature 98.9 F 06/01/16 08:00 Pulse Rate 67 06/01/16 08:00 Respiratory Rate 16 06/01/16 08:00 Blood Pressure 134/55 06/01/16 08:00 O2 Sat by Pulse Oximetry (%) 98 05/31/16 21:00 HENT: Yes: Other (+ ETT) Cardiovascular: Yes: Regular Rate and Rhythm Respiratory: Yes: Other (no wheezing) Gastrointestinal: Yes: Soft Edema: Yes Edema: LLE: 1+, RLE: 1+ Neurological: Yes: Alert Labs: CBC, BMP 06/01/16 05:05 06/01/16 05:05 INR, PTT INR 0.98 (0.82-1.09) 05/30/16 17:00 Laboratory Tests 06/01/16 06/01/16 05:05 05:05 WBC 14.2 H D Hgb 7.1 L Hct 23.8 L Plt Count 198 Potassium 4.5 Creatinine 0.6 - ....Imaging EKG: Image Reviewed Assessment/Plan Assessment/Plan +Influenza Acute respiratory failure Worsening anemia NSTEMI History breast cancer, lung mass with negative bx COPD, chronic with chronic hypoxemia Mild PSVT Chronic diastolic CHF Carotid stenosis s/p CEA REC: 1. Acute respiratory failure: + influenza Vent support Wean vent as per ICU team 2. Anemia: -stool guaiac -Follow H/H -Consider transfusing for Hb< 8 3. NSTEMI: -in setting of acute illness, acute resp failure. -Known/suspected underlying CAD -Has has anginal sx for some time, despite maximal medical rx: has refused cath on multiple occasions -Repeat echo w/ normal LV fxn. Mild -Rate control of PSVT with short acting cardizem and PRN IV -Transfusional support -ASA 81mg as tolerated
[2016-06-01] MEDS: PANTOPRAZOLE SODIUM 40 MG/100 ML PRE-DOCKED IVPB SCH (09:05)
[2016-06-01] MEDS: NICOTINE 14 MG/24 HOURS TOPICAL PATCH TD SCH (09:06)
[2016-06-01] MEDS: dilTIAZem HCL 30 MG TABLET (FP) GT SCH ×4 (09:07→21:36)
[2016-06-01] MEDS: OSELTAMIVIR PHOSPHATE 6 MG/1 ML - 60ML BOTTLE PO SCH ×2 (09:07→21:38)
[2016-06-01] MEDS: DOCUSATE SODIUM 100 MG CAPSULE (FP) PO SCH (09:08)
[2016-06-01] MEDS ORDERED: ASPIRIN 300 MG SUPP.RECT RC SCH (10:00)
[2016-06-01 10:55] LABS: TROPONIN I 0.36 ng/ml (0.00-0.05)
--- NOTE | 2016-06-01 11:48 | PN ---
Teaching Attending Note Name of Resident: Conrad Pagan ATTENDING PHYSICIAN STATEMENT I saw and evaluated the patient. I reviewed the resident's note and discussed the case with the resident. I agree with the resident's findings and plan as documented. SUBJECTIVE: Pt seen and examined in the ICU. Remains intubated, sedated. Awake, follows commands when off sedation. Tolerated CPAP/PS 10/5 but became tachypneic with 8/ 5, placed back on volume assist control and resedated. OBJECTIVE: Last Vital Signs Temp Pulse Resp BP Pulse Ox 98.7 F 75 14 131/51 95 06/01/16 10:00 06/01/16 10:00 06/01/16 11:40 06/01/16 10:00 06/01/16 09:15 Intake & Output 05/29/16 05/30/16 05/31/16 06/01/16 23:59 23:59 23:59 23:59 Intake Total 1124 2507 936 Output Total 400 600 950 Balance 724 1907 -14 Weight 126 lb 1.6 oz 128 lb 1 oz 126 lb 15.78 oz Gen: intubated, sedated Heart: RRR Lung: bilateral rhonchi Abd: soft, nontender Ext: no edema CBC, BMP 06/01/16 05:05 06/01/16 05:05 Active Medications Albuterol Sulfate (Ventolin 0.083% Nebulizer Soln -) 1 amp NEB Q4H PRN PRN Reason: SHORT OF BREATH/WHEEZING Albuterol/Ipratropium (Duoneb -) 1 amp NEB QIDR [facility] Last Admin: 06/01/16 11:46 Dose: 1 amp Aspirin (Asa -) 600 mg RC DAILY [facility] Last Admin: 06/01/16 09:06 Dose: 600 mg Atorvastatin Calcium (Lipitor -) 80 mg PO HS [facility] Last Admin: 05/31/16 21:33 Dose: 80 mg Diltiazem HCl (Cardizem -) 30 mg GT QID [facility] Last Admin: 06/01/16 09:07 Dose: 30 mg Diltiazem HCl (Cardizem Injection -) 5 mg IVPUSH Q4H PRN PRN Reason: TACHYCARDIA Docusate Sodium (Colace -) 100 mg PO DAILY [facility] Last Admin: 06/01/16 09:08 Dose: Not Given Enoxaparin Sodium (Lovenox -) 40 mg SQ DAILY [facility] Sodium Chloride (Normal Saline -) 1,000 mls @ 75 mls/hr IV ASDIR [facility] Last Admin: 06/01/16 07:14 Dose: 75 mls/hr Fentanyl 500 mcg/ Dextrose 100 mls @ 5 mls/hr IJ TITR [facility] PRN Reason: 25 MCG/HR Last Admin: 06/01/16 09:30 Dose: 15 mls/hr Azithromycin 250 mg/ Dextrose 250 mls @ 250 mls/hr IVPB DAILY@1800 [facility] Last Admin: 05/31/16 17:31 Dose: 250 mls/hr Propofol (Diprivan -) 100 mls @ 1.743 mls/hr IVPB TITR [facility]; 5 MCG/KG/MIN PRN Reason: Protocol Last Admin: 06/01/16 11:35 Dose: 12.198 mls/hr Insulin Aspart (Novolog Vial Sliding Scale -) 1 vial SQ TIDAC [facility] PRN Reason: Protocol Last Admin: 06/01/16 11:45 Dose: 1 units Methylprednisolone Sodium Succinate (Solu-Medrol -) 40 mg IVPB Q6H-IV [facility] Last Admin: 06/01/16 09:05 Dose: 40 mg Nicotine (Nicoderm Patch -) 14 mg TD DAILY [facility] Last Admin: 06/01/16 09:06 Dose: 14 mg Oseltamivir Phosphate (Tamiflu Oral Suspension -) 75 mg PO BID [facility] Stop: 06/06/16 10:01 Last Admin: 06/01/16 09:07 Dose: 75 mg Pantoprazole Sodium (Protonix 40mg Ivpb (Pre-Docked)) 40 mg IVPB DAILY [facility] Last Admin: 06/01/16 09:05 Dose: 40 mg ASSESSMENT AND PLAN: Acute on Chronic Hypoxic and Hypercapneic Respiratory Failure Influenza A Acute COPD Exacerbation CAD +Troponins/Acute NSTEMI Lactic Acidosis h/o Breast Ca Lung Nodules with recent biopsy showing necrotizing granulomas Smoker - continue tamiflu - empiric antibiotics for now - f/u cultures - inhaled bronchodilators - medrol - O2 to keep SpO2 >90% - hold sedation in AM to assess mental status - reattempt spontaneous breathing trials as tolerated when mental status improved - start enteral feeds - DVT/GI prophylaxis - ICU monitoring
[2016-06-01] MEDS ORDERED: PIPERACILLIN/TAZOB 3.375 GM 3.375 GM in DEXTROSE 5%-WATER - 50 ML IVPB SCH (16:00)
--- NOTE | 2016-06-01 17:04 | PN ---
Physical Exam: SUBJECTIVE: Patient seen and examined at bedside. She's intubated and arousable, follows commands. Per nurse, no acute events overnight. Pt did not tolerate CPAP during SBT in AM. OBJECTIVE: Intubated Day 2 on AC RR 14, TV 400, FiO2 35%, PEEP 5 On fentanyl 25 mcg Propofol 5 mcg RIJ Day 2 Vital Signs Period Temp Pulse Resp BP Sys/Rasheed Pulse Ox Last 24 Hr 98.7 F-100.4 F 46-95 14-25 102-158/44-77 93-99 GENERAL: Weak, lethargic, lightly sedated, RASS = -1 HEAD: AT, NC EYES: Pupils equal, round and reactive to light, sclera anicteric, conjunctiva clear EARS, NOSE, THROAT: nares patent oropharynx clear without exudates LUNGS: bilaterally biphasic wheezing (less severe than yesterday) HEART: Tachycardic, S1 and S2, ejection murmur, rub ABDOMEN: +bs, soft, diffuse tenderness, no rebound, guarding EXTREMITIES: No peripheral edema. ABG Results ABG pH 7.36 (7.35-7.45) 06/01/16 07:10 ABG pCO2 at Pt Temp 51.1 mmHg (35-45) H 06/01/16 07:10 ABG pO2 at Pt Temp 360.0 mmHg (70-100) H* D 06/01/16 07:10 ABG HCO3 28.4 meq/L (22-26) H 06/01/16 07:10 ABG O2 Sat (Measured) 100.0 % (90-98.9) H* 06/01/16 07:10 ABG O2 Content 11.1 % vol (15-22) L 06/01/16 07:10 ABG Base Excess 3.2 meq/l (-2-2) H 06/01/16 07:10 CBCD WBC 14.2 K/mm3 (4.0-10.0) H D 06/01/16 05:05 RBC 3.40 M/mm3 (3.60-5.2) L 06/01/16 05:05 Hgb 7.1 GM/dL (10.7-15.3) L 06/01/16 05:05 Hct 23.8 % (32.4-45.2) L 06/01/16 05:05 MCV 70.0 fl (80-96) L 06/01/16 05:05 MCHC 29.7 g/dl (32.0-36.0) L 06/01/16 05:05 RDW 22.8 % (11.6-15.6) H 06/01/16 05:05 Plt Count 198 K/MM3 (134-434) 06/01/16 05:05 MPV 8.9 fl (7.5-11.1) 06/01/16 05:05 CMP Sodium 139 mmol/L (136-145) 06/01/16 05:05 Potassium 4.5 mmol/L (3.5-5.1) 06/01/16 05:05 Chloride 101 mmol/L (98-107) 06/01/16 05:05 Carbon Dioxide 33 mmol/L (21-32) H 06/01/16 05:05 Anion Gap 5 (8-16) L 06/01/16 05:05 BUN 14 mg/dL (7-18) 06/01/16 05:05 Creatinine 0.6 mg/dL (0.55-1.02) 06/01/16 05:05 Creat Clearance w eGFR > 60 (>60) 05/31/16 05:05 Calcium 8.4 mg/dL (8.5-10.1) L 06/01/16 05:05 Total Bilirubin 0.3 mg/dL (0.2-1.0) D 05/31/16 05:05 AST 37 U/L (15-37) 05/31/16 05:05 ALT 29 U/L (12-78) D 05/31/16 05:05 Alkaline Phosphatase 49 U/L (45-117) 05/31/16 05:05 Total Protein 5.2 g/dl (6.4-8.2) L 05/31/16 05:05 Albumin 2.2 g/dl (3.4-5.0) L 05/31/16 05:05 Active Medications Generic Name Dose Route Start Last Admin Trade Name Freq PRN Reason Stop Dose Admin Albuterol Sulfate 1 amp 05/30/16 23:09 Ventolin 0.083% Nebulizer Soln - NEB Q4H PRN SHORT OF BREATH/WHEEZING Albuterol/Ipratropium 1 amp 05/31/16 00:00 06/01/16 11:46 Duoneb - NEB 1 amp QIDR YE[facility] Administration Aspirin 600 mg 06/01/16 10:00 06/01/16 09:06 Asa - RC 600 mg DAILY [facility] Administration Atorvastatin Calcium 80 mg 05/31/16 22:00 05/31/16 21:33 Lipitor - PO 80 mg HS [facility] Administration Diltiazem HCl 30 mg 05/31/16 10:00 06/01/16 14:00 Cardizem - GT Not Given QID [facility] Diltiazem HCl 5 mg 06/01/16 08:49 Cardizem Injection - IVPUSH Q4H PRN TACHYCARDIA Docusate Sodium 100 mg 05/31/16 10:00 06/01/16 09:08 Colace - PO Not Given DAILY [facility] Enoxaparin Sodium 40 mg 06/02/16 10:00 Lovenox - SQ DAILY [facility] Sodium Chloride 1,000 mls @ 75 mls/hr 05/30/16 22:30 06/01/16 07:14 Normal Saline - IV 75 mls/hr ASDIR [facility] Administration Fentanyl 500 mcg/ Dextrose 100 mls @ 5 mls/hr 05/30/16 22:30 06/01/16 09:30 IJ 15 mls/hr TITR [facility] Administration 25 MCG/HR Azithromycin 250 mg/ Dextrose 250 mls @ 250 mls/hr 05/31/16 18:00 05/31/16 17: 31 IVPB 250 mls/hr DAILY@1800 [facility] Administration Propofol 100 mls @ 1.743 mls/hr 05/31/16 12:00 06/01/16 15:00 Diprivan - IVPB 20 mcg/kg/min TITR [facility] Titration Protocol 5 MCG/KG/MIN Piperacillin Sod/Tazobactam Sod 50 mls @ 100 mls/hr 06/01/16 16:19 Zosyn 3.375gm Ivpb (Pre-Docked) IVPB Q8H-IV [facility] Protocol Insulin Aspart 1 vial 05/31/16 07:00 06/01/16 11:45 Novolog Vial Sliding Scale - SQ 1 units TIDAC [facility] Administration Protocol Methylprednisolone Sodium Succinate 40 mg 05/31/16 14:00 06/01/16 15:55 Solu-Medrol - IVPB 40 mg Q6H-IV [facility] Administration Nicotine 14 mg 05/31/16 10:00 03/22/17 09:06 Nicoderm Patch - TD 14 mg DAILY [facility] Administration Oseltamivir Phosphate 75 mg 05/31/16 01:00 06/01/16 09:07 Tamiflu Oral Suspension - PO 06/06/16 10:01 75 mg BID [facility] Administration Pantoprazole Sodium 40 mg 05/31/16 10:00 06/01/16 09:05 Protonix 40mg Ivpb (Pre-Docked) IVPB 40 mg DAILY [facility] Administration Microbiology 05/30/16 23:30 Nasopharyngeal Swab Influenza Types A positive Imaging CXR on 06/01: No acute change CXR on 05/31: no acute pathology ECHO: normal LV function ASSESSMENT/PLAN: 75 yo F h/o COPD with chronic bronchitis on home O2, HTN, HLD, CHF, CAD, stable AAA, left breast CA s/p lumpectomy and radiation therapy, remote history of intracranial bleed admitted to the ICU for acute on chronic hypercapneic respiratory failure in the setting of COPD and CHF exacerbation and flu. Respiratory: acute on chronic hypercapneic respiratory failure - On mechanical ventilation, see settings above - Nebulizers YEISON and PRN - Solumedrol 40mg Q6H - Lasix prn - SBT as tolerated ID: Sepsis 2/ influenza A - Cont. tamiflu - Cont. zosyn day 1, azitromycin day 2 - Contact isolation - Pending final cultures Cardiac: NSTEMI vs. Demand ischemia - Troponins trending down with EKG changes - Cont. ASA - SVT on cardizem 30mg Q6H via OGT * was on home verampil Heme: Microcytic anemia - Hgb 7.1 with baseline from - in 2015 - Monitor H&H - Transfuse if < 7 FEN - NS 75ml/hr - Normal lytes, cont. to monitor - Start osmolite Prophylaxis - DVT: hold lovenox due to low HGB - GI: daily PPI Disposition - Cont. to monitor in ICU Code status - Full code Visit type - Emergency Visit Emergency Visit: No - New Patient This patient is new to me today: No - Critical Care Critical Care patient: Yes Total Critical Care Time (in minutes): 45 Critical Care Statement: The care of this patient involved high complexity decision making to prevent further life threatening deterioration of the patient 's condition and/or to evalute & treat vital organ system(s) failure or risk of failure.
[2016-06-01] MEDS: AZITHROMYCIN IVPB 250 MG in DEXTROSE 5%-WATER - 250 ML IVPB SCH (17:39)
[2016-06-01] MEDS: PIPERACILLIN/TAZOB 3.375 GM 50 ML IVPB SCH (17:39)
--- NOTE | 2016-06-01 18:02 | PN ---
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, Physician History of Present Illness: patient still intubated,sedated weaning trials failed now back on baseline vent settings mentally arousable - Current Medication List Current Medications: Active Medications Albuterol Sulfate (Ventolin 0.083% Nebulizer Soln -) 1 amp NEB Q4H PRN PRN Reason: SHORT OF BREATH/WHEEZING Albuterol/Ipratropium (Duoneb -) 1 amp NEB QIDR [facility] Last Admin: 06/01/16 11:46 Dose: 1 amp Aspirin (Asa -) 81 mg NGT DAILY [facility] Atorvastatin Calcium (Lipitor -) 80 mg PO HS [facility] Last Admin: 05/31/16 21:33 Dose: 80 mg Diltiazem HCl (Cardizem -) 30 mg GT QID [facility] Last Admin: 06/01/16 17:40 Dose: Not Given Diltiazem HCl (Cardizem Injection -) 5 mg IVPUSH Q4H PRN PRN Reason: TACHYCARDIA Docusate Sodium (Colace -) 100 mg PO DAILY [facility] Last Admin: 06/01/16 09:08 Dose: Not Given Enoxaparin Sodium (Lovenox -) 40 mg SQ DAILY [facility] Sodium Chloride (Normal Saline -) 1,000 mls @ 75 mls/hr IV ASDIR [facility] Last Admin: 06/01/16 07:14 Dose: 75 mls/hr Fentanyl 500 mcg/ Dextrose 100 mls @ 5 mls/hr IJ TITR [facility] PRN Reason: 25 MCG/HR Last Admin: 06/01/16 09:30 Dose: 15 mls/hr Azithromycin 250 mg/ Dextrose 250 mls @ 250 mls/hr IVPB DAILY@1800 [facility] Last Admin: 06/01/16 17:39 Dose: 250 mls/hr Propofol (Diprivan -) 100 mls @ 1.743 mls/hr IVPB TITR [facility]; 5 MCG/KG/MIN PRN Reason: Protocol Last Titration: 06/01/16 15:00 Dose: 20 mcg/kg/min Piperacillin Sod/Tazobactam Sod (Zosyn 3.375gm Ivpb (Pre-Docked)) 50 mls @ 100 mls/hr IVPB Q8H-IV [facility] PRN Reason: Protocol Last Admin: 06/01/16 17:39 Dose: 100 mls/hr Insulin Aspart (Novolog Vial Sliding Scale -) 1 vial SQ TIDAC [facility] PRN Reason: Protocol Last Admin: 06/01/16 16:38 Dose: 1 units Methylprednisolone Sodium Succinate (Solu-Medrol -) 40 mg IVPB Q6H-IV [facility] Last Admin: 06/01/16 15:55 Dose: 40 mg Nicotine (Nicoderm Patch -) 14 mg TD DAILY [facility] Last Admin: 06/01/16 09:06 Dose: 14 mg Oseltamivir Phosphate (Tamiflu Oral Suspension -) 75 mg PO BID [facility] Stop: 06/06/16 10:01 Last Admin: 06/01/16 09:07 Dose: 75 mg Pantoprazole Sodium (Protonix 40mg Ivpb (Pre-Docked)) 40 mg IVPB DAILY [facility] Last Admin: 06/01/16 09:05 Dose: 40 mg - Objective Vital Signs: Vital Signs Temperature 99.1 F 06/01/16 16:00 Pulse Rate 46 L 06/01/16 16:00 Respiratory Rate 14 06/01/16 16:00 Blood Pressure 141/77 06/01/16 16:00 O2 Sat by Pulse Oximetry (%) 95 06/01/16 09:15 Constitutional: Yes: Calm Respiratory: Yes: Intubated, Mechanically Ventilated Gastrointestinal: Yes: Normal Bowel Sounds, Soft, Other (og tube in place) Genitourinary: Yes: [place] Present Musculoskeletal: Yes: WNL Extremities: Yes: WNL Neurological: Yes: Other Labs: CBC, BMP 06/01/16 05:05 06/01/16 05:05 INR, PTT INR 0.98 (0.82-1.09) 05/30/16 17:00 Assessment/Plan Problem List - Problems (1) Respiratory failure Code(s): J96.90 - RESPIRATORY FAILURE, UNSP, UNSP W HYPOXIA OR HYPERCAPNIA Qualifiers: Chronicity: acute Respiratory failure complication: hypoxia and hypercapnia Qualified Code(s): J96.01 - Acute respiratory failure with hypoxia (2) Chronic respiratory failure with hypoxia Code(s): J96.11 - CHRONIC RESPIRATORY FAILURE WITH HYPOXIA (3) CAD (coronary artery disease) Code(s): I25.10 - ATHSCL HEART DISEASE OF [place] CORONARY ARTERY W/O ANG PCTRS (4) COPD (chronic obstructive pulmonary disease) Assessment/Plan: intubated Code(s): J44.9 - CHRONIC OBSTRUCTIVE PULMONARY DISEASE, UNSPECIFIED (5) Chronic diastolic CHF (congestive heart failure) Code(s): I50.32 - CHRONIC DIASTOLIC (CONGESTIVE) HEART FAILURE (6) HLD (hyperlipidemia) Code(s): E78.5 - HYPERLIPIDEMIA, UNSPECIFIED Qualifiers: Hyperlipidemia type: unspecified Qualified Code(s): E78.5 - Hyperlipidemia, unspecified (7) HTN (hypertension) Code(s): I10 - ESSENTIAL (PRIMARY) HYPERTENSION Qualifiers: Hypertension type: essential hypertension Qualified Code(s): I10 - Essential (primary) hypertension (8) History of cigarette smoking Code(s): Z87.891 - PERSONAL HISTORY OF NICOTINE DEPENDENCE plan continue current mgmt continue abx nutrition resp support rest as per icu mgmt cc time 40 min
--- NOTE | 2016-06-01 18:36 | PN ---
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, Physician History of Present Illness: patient still intubated,sedated weaning trials failed - - Current Medication List Current Medications: Active Medications Albuterol Sulfate (Ventolin 0.083% Nebulizer Soln -) 1 amp NEB Q4H PRN PRN Reason: SHORT OF BREATH/WHEEZING Albuterol/Ipratropium (Duoneb -) 1 amp NEB QIDR [facility] Last Admin: 06/01/16 11:46 Dose: 1 amp Aspirin (Asa -) 81 mg NGT DAILY [facility] Atorvastatin Calcium (Lipitor -) 80 mg PO HS [facility] Last Admin: 05/31/16 21:33 Dose: 80 mg Diltiazem HCl (Cardizem -) 30 mg GT QID [facility] Last Admin: 06/01/16 17:40 Dose: Not Given Diltiazem HCl (Cardizem Injection -) 5 mg IVPUSH Q4H PRN PRN Reason: TACHYCARDIA Docusate Sodium (Colace -) 100 mg PO DAILY [facility] Last Admin: 06/01/16 09:08 Dose: Not Given Enoxaparin Sodium (Lovenox -) 40 mg SQ DAILY [facility] Sodium Chloride (Normal Saline -) 1,000 mls @ 75 mls/hr IV ASDIR [facility] Last Admin: 06/01/16 07:14 Dose: 75 mls/hr Fentanyl 500 mcg/ Dextrose 100 mls @ 5 mls/hr IJ TITR [facility] PRN Reason: 25 MCG/HR Last Admin: 06/01/16 09:30 Dose: 15 mls/hr Azithromycin 250 mg/ Dextrose 250 mls @ 250 mls/hr IVPB DAILY@1800 [facility] Last Admin: 06/01/16 17:39 Dose: 250 mls/hr Propofol (Diprivan -) 100 mls @ 1.743 mls/hr IVPB TITR [facility]; 5 MCG/KG/MIN PRN Reason: Protocol Last Titration: 06/01/16 15:00 Dose: 20 mcg/kg/min Piperacillin Sod/Tazobactam Sod (Zosyn 3.375gm Ivpb (Pre-Docked)) 50 mls @ 100 mls/hr IVPB Q8H-IV [facility] PRN Reason: Protocol Last Admin: 06/01/16 17:39 Dose: 100 mls/hr Insulin Aspart (Novolog Vial Sliding Scale -) 1 vial SQ TIDAC [facility] PRN Reason: Protocol Last Admin: 06/01/16 16:38 Dose: 1 units Methylprednisolone Sodium Succinate (Solu-Medrol -) 40 mg IVPB Q6H-IV [facility] Last Admin: 06/01/16 15:55 Dose: 40 mg Nicotine (Nicoderm Patch -) 14 mg TD DAILY [facility] Last Admin: 06/01/16 09:06 Dose: 14 mg Oseltamivir Phosphate (Tamiflu Oral Suspension -) 75 mg PO BID [facility] Stop: 06/06/16 10:01 Last Admin: 06/01/16 09:07 Dose: 75 mg Pantoprazole Sodium (Protonix 40mg Ivpb (Pre-Docked)) 40 mg IVPB DAILY [facility] Last Admin: 06/01/16 09:05 Dose: 40 mg - Objective Vital Signs: Vital Signs Temperature 99.2 F 06/01/16 18:00 Pulse Rate 44 L 06/01/16 18:00 Respiratory Rate 16 06/01/16 18:23 Blood Pressure 129/43 06/01/16 18:00 O2 Sat by Pulse Oximetry (%) 95 06/01/16 09:15 HENT: Yes: Atraumatic Neck: Yes: Supple Cardiovascular: Yes: Regular Rate and Rhythm Respiratory: Yes: CTA Bilaterally Gastrointestinal: Yes: Normal Bowel Sounds Extremities: Yes: WNL Edema: LLE: Trace, RLE: Trace Labs: CBC, BMP 06/01/16 05:05 06/01/16 05:05 INR, PTT INR 0.98 (0.82-1.09) 05/30/16 17:00 Problem List - Problems (1) Respiratory failure Code(s): J96.90 - RESPIRATORY FAILURE, UNSP, UNSP W HYPOXIA OR HYPERCAPNIA Qualifiers: Chronicity: acute Respiratory failure complication: hypoxia and hypercapnia Qualified Code(s): J96.01 - Acute respiratory failure with hypoxia (2) Chronic respiratory failure with hypoxia Code(s): J96.11 - CHRONIC RESPIRATORY FAILURE WITH HYPOXIA (3) CAD (coronary artery disease) Code(s): I25.10 - ATHSCL HEART DISEASE OF [place] CORONARY ARTERY W/O ANG PCTRS (4) COPD (chronic obstructive pulmonary disease) Code(s): J44.9 - CHRONIC OBSTRUCTIVE PULMONARY DISEASE, UNSPECIFIED (5) Chronic diastolic CHF (congestive heart failure) Code(s): I50.32 - CHRONIC DIASTOLIC (CONGESTIVE) HEART FAILURE (6) HLD (hyperlipidemia) Code(s): E78.5 - HYPERLIPIDEMIA, UNSPECIFIED Qualifiers: Hyperlipidemia type: unspecified Qualified Code(s): E78.5 - Hyperlipidemia, unspecified (7) HTN (hypertension) Code(s): I10 - ESSENTIAL (PRIMARY) HYPERTENSION Qualifiers: Hypertension type: essential hypertension Qualified Code(s): I10 - Essential (primary) hypertension (8) History of cigarette smoking Code(s): Z87.891 - PERSONAL HISTORY OF NICOTINE DEPENDENCE (9) Influenza Code(s): J11.1 - FLU DUE TO UNIDENTIFIED INFLUENZA VIRUS W OT RESP MANIFEST Assessment/Plan 1.+Influenza on tamiflu 2.Acute respiratory failure intubated iv steroids abx duo nebs 3.Worsening anemia 4.NSTEMI 5.History breast cancer, lung mass with negative bx 6.COPD, chronic with chronic hypoxemia 7.chf STABLE CC 30 MIN
[2016-06-01] MEDS: ATORVASTATIN CA 80 MG TABLET (FP) PO SCH (21:35)
[2016-06-02] MEDS: ALBUTEROL SO4 2.5/IPRATROPIUM 0.5 INH SOL 3 ML VIAL.NEB. NEB SCH ×5 (00:19→23:11)
[2016-06-02] MEDS ORDERED: ADENOSINE 6 MG/2 ML VIAL IVPUSH ONE (00:19)
[2016-06-02] MEDS: SODIUM CHLORIDE 1,000 ML IV SCH ×2 (01:34→01:35)
[2016-06-02] MEDS: PIPERACILLIN/TAZOB 3.375 GM 50 ML IVPB SCH ×3 (01:35→17:32)
[2016-06-02] MEDS: methylPREDNISolone NA SUCC 40 MG/1 ML VIAL IVPB SCH ×4 (03:00→21:44)
[2016-06-02 06:00] LABS: MCH 20.9 pg (25.7-33.7); MCHC 29.8 g/dl (32.0-36.0); MEAN CELL VOLUME 70.3 fl (80-96); MEAN PLT VOLUME 9.1 fl (7.5-11.1); PLATELET COUNT 167 K/MM3 (134-434); RDW 22.9 % (11.6-15.6)
[2016-06-02 06:17] LABS: INR 0.96 (0.82-1.09); PROTHROMBIN TIME (PATIENT) 10.5 SEC (9.98-11.88)
[2016-06-02 06:20] LABS: ACTIVATED PTT 27.2 SECONDS (26.9-34.4)
[2016-06-02 06:33] LABS: CALCIUM 8.3 mg/dL (8.5-10.1); CREATININE 0.5 mg/dL (0.55-1.02)
[2016-06-02 06:37] LABS: TROPONIN I 0.25 ng/ml (0.00-0.05)
[2016-06-02] MEDS: INSULIN SLIDING SCALE (NOVOLOG) 1 VIAL SQ SCH ×3 (07:16→17:39)
[2016-06-02 07:19] LABS: ARTERIAL BLD GAS O2 SATURATION 93.9 % (90-98.9); ARTERIAL BLOOD GAS BASE EXCESS 3.6 meq/l (-2-2); ARTERIAL BLOOD GAS HCO3 28.8 meq/L (22-26); ARTERIAL BLOOD GAS PO2 73.9 mmHg (70-100); ARTERIAL BLOOD GAS pH 7.37 (7.35-7.45)
[2016-06-02 07:24] LABS: ALLENS TEST POSITIVE; ART PUNCT SITE RIGHT RADIAL; MECH. VENT. YES; PT. ON O2? YES; TYPE OF O2 MEC.VENT; VENT RATE 14; VT/PRESS 400
[2016-06-02] MEDS ORDERED: PT OWN MED DRAWER 7, Y5N ONE ×2 (07:29→09:40)
[2016-06-02] MEDS: PROPOFOL 100 ML IVPB SCH (09:30)
[2016-06-02] MEDS: ASPIRIN 81 MG CHEWABLE TABLETS NGT SCH (09:31)
[2016-06-02] MEDS: DOCUSATE SODIUM 100 MG CAPSULE (FP) PO SCH (09:31)
[2016-06-02] MEDS: OSELTAMIVIR PHOSPHATE 6 MG/1 ML - 60ML BOTTLE PO SCH ×2 (09:32→21:44)
[2016-06-02] MEDS: PANTOPRAZOLE SODIUM 40 MG/100 ML PRE-DOCKED IVPB SCH (09:34)
[2016-06-02] MEDS: ENOXAPARIN NA (PORCINE) 40 MG/0.4 ML DISP.SYRIN SQ SCH (09:41)
[2016-06-02] MEDS: NICOTINE 14 MG/24 HOURS TOPICAL PATCH TD SCH (09:41)
[2016-06-02] MEDS: dilTIAZem HCL 30 MG TABLET (FP) GT SCH ×4 (09:41→21:44)
--- NOTE | 2016-06-02 09:51 | PN ---
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, Physician Chief Complaint: TELE: Paroxysms SVT and when sedated sinus may to 40s Hb dropping - Current Medication List Current Medications: Active Medications Albuterol Sulfate (Ventolin 0.083% Nebulizer Soln -) 1 amp NEB Q4H PRN PRN Reason: SHORT OF BREATH/WHEEZING Albuterol/Ipratropium (Duoneb -) 1 amp NEB QIDR [facility] Last Admin: 06/02/16 06:15 Dose: 1 amp Aspirin (Asa -) 81 mg NGT DAILY [facility] Last Admin: 06/02/16 09:31 Dose: 81 mg Atorvastatin Calcium (Lipitor -) 80 mg PO HS [facility] Last Admin: 06/01/16 21:35 Dose: 80 mg Diltiazem HCl (Cardizem -) 30 mg GT QID [facility] Last Admin: 06/02/16 09:41 Dose: 30 mg Diltiazem HCl (Cardizem Injection -) 5 mg IVPUSH Q4H PRN PRN Reason: TACHYCARDIA Docusate Sodium (Colace -) 100 mg PO DAILY [facility] Last Admin: 06/02/16 09:31 Dose: 100 mg Enoxaparin Sodium (Lovenox -) 40 mg SQ DAILY [facility] Last Admin: 06/02/16 09:41 Dose: 40 mg Sodium Chloride (Normal Saline -) 1,000 mls @ 75 mls/hr IV ASDIR [facility] Last Admin: 06/02/16 01:35 Dose: 75 mls/hr Fentanyl 500 mcg/ Dextrose 100 mls @ 5 mls/hr IJ TITR [facility] PRN Reason: 25 MCG/HR Last Admin: 06/01/16 09:30 Dose: 15 mls/hr Azithromycin 250 mg/ Dextrose 250 mls @ 250 mls/hr IVPB DAILY@1800 [facility] Last Admin: 06/01/16 17:39 Dose: 250 mls/hr Propofol (Diprivan -) 100 mls @ 1.743 mls/hr IVPB TITR [facility]; 5 MCG/KG/MIN PRN Reason: Protocol Last Admin: 06/02/16 09:30 Dose: 8.6 mls/hr Piperacillin Sod/Tazobactam Sod (Zosyn 3.375gm Ivpb (Pre-Docked)) 50 mls @ 100 mls/hr IVPB Q8H-IV [facility] PRN Reason: Protocol Last Admin: 06/02/16 09:31 Dose: 100 mls/hr Insulin Aspart (Novolog Vial Sliding Scale -) 1 vial SQ TIDAC [facility] PRN Reason: Protocol Last Admin: 06/02/16 07:16 Dose: Not Given Methylprednisolone Sodium Succinate (Solu-Medrol -) 40 mg IVPB Q6H-IV [facility] Last Admin: 06/02/16 09:31 Dose: 40 mg Nicotine (Nicoderm Patch -) 14 mg TD DAILY [facility] Last Admin: 06/02/16 09:41 Dose: 14 mg Oseltamivir Phosphate (Tamiflu Oral Suspension -) 75 mg PO BID [facility] Stop: 06/06/16 10:01 Last Admin: 06/02/16 09:32 Dose: 75 mg Pantoprazole Sodium (Protonix 40mg Ivpb (Pre-Docked)) 40 mg IVPB DAILY [facility] Last Admin: 06/02/16 09:34 Dose: 40 mg - Objective Vital Signs: Vital Signs Temperature 96.9 F L 06/02/16 06:00 Pulse Rate 42 L 06/02/16 04:00 Respiratory Rate 19 06/02/16 06:53 Blood Pressure 152/72 06/02/16 06:00 O2 Sat by Pulse Oximetry (%) 98 06/01/16 22:48 HENT: Yes: Other (+ ETT) Cardiovascular: Yes: Regular Rate and Rhythm Respiratory: Yes: Other (= breath sounds b/l) Gastrointestinal: Yes: Soft Edema: No Labs: CBC, BMP 06/02/16 05:05 06/02/16 05:05 INR, PTT INR 0.96 (0.82-1.09) 06/02/16 05:05 Laboratory Tests 06/02/16 06/02/16 05:05 05:05 WBC 13.0 H Hgb 6.7 L* Plt Count 167 Potassium 4.3 Creatinine 0.5 L - ....Imaging EKG: Image Reviewed Assessment/Plan Assessment/Plan +Influenza Acute respiratory failure Worsening anemia NSTEMI History breast cancer, lung mass with negative bx COPD, chronic with chronic hypoxemia Mild PSVT Chronic diastolic CHF Carotid stenosis s/p CEA REC: 1. Acute respiratory failure: + influenza Vent support Wean vent as per ICU team 2. Anemia: -stool guaiac -Follow H/H -transfuse 2UPRBCs 3. NSTEMI: -in setting of acute illness, acute resp failure. -Known/suspected underlying CAD -Has has anginal sx for some time, despite maximal medical rx: has refused cath on multiple occasions -Repeat echo w/ normal LV fxn. Mild -Rate control of PSVT with short acting cardizem and PRN IV -Transfusional support -ASA 81mg as tolerated. May need to stop if counts continue to drop or does not respond to PRBCS or if active bleeding
[2016-06-02] MEDS ORDERED: ASPIRIN 81 MG CHEWABLE TABLETS NGT SCH (10:00)
[2016-06-02] MEDS: dilTIAZem HCL 50 MG/10 ML - 10 ML VIAL IVPUSH PRN ×2 (10:33→15:22)
[2016-06-02] MEDS ORDERED: FUROSEMIDE 40 MG/4 ML INJECTABLE VIAL IVPUSH SCH (11:21)
[2016-06-02 11:38] LABS: ARTERIAL BLD GAS O2 SATURATION 85.4 % (90-98.9); ARTERIAL BLOOD GAS BASE EXCESS -5.7 meq/l (-2-2); ARTERIAL BLOOD GAS HCO3 23.8 meq/L (22-26); ARTERIAL BLOOD GAS PO2 69.8 mmHg (70-100); ARTERIAL BLOOD GAS pH 7.12 (7.35-7.45)
[2016-06-02 11:44] LABS: ALLENS TEST POSITIVE; ART PUNCT SITE RIGHT RADIAL; LPM/O2% 35%; MECH. VENT. S/T; PT. ON O2? YES; TYPE OF O2 BI-PAP; VENT RATE 12
--- NOTE | 2016-06-02 12:29 | PN ---
Teaching Attending Note Name of Resident: Conrad Pagan ATTENDING PHYSICIAN STATEMENT I saw and evaluated the patient. I reviewed the resident's note and discussed the case with the resident. I agree with the resident's findings and plan as documented. SUBJECTIVE: Pt seen and examined in the ICU. Tolerated CPAP/PS 8/5 and subsequently extubated. Tachypneic post extubation with respiratory acidosis, placed on BiPAP. Repeat ABG pending. OBJECTIVE: Last Vital Signs Temp Pulse Resp BP Pulse Ox 98.6 F 129 H 23 139/77 85 L 06/02/16 11:00 06/02/16 12:02 06/02/16 12:02 06/02/16 12:02 06/02/16 12:00 Intake & Output 05/30/16 05/31/16 06/01/16 06/02/16 23:59 23:59 23:59 23:59 Intake Total 1124 2507 2749.3 1064 Output Total 040 561 7094 400 Balance 724 1907 799.3 664 Weight 126 lb 1.6 oz 128 lb 1 oz 126 lb 15.78 oz 130 lb 15.273 oz Gen: tachypneic on BiPAP Heart: tachycardic, regular Lung: scattered rhonchi, distant breath sounds Abd: soft, nontender Ext: no edema CBC, BMP 06/02/16 05:05 06/02/16 05:05 Active Medications Albuterol Sulfate (Ventolin 0.083% Nebulizer Soln -) 1 amp NEB Q4H PRN PRN Reason: SHORT OF BREATH/WHEEZING Last Admin: 06/02/16 10:20 Dose: 1 amp Albuterol/Ipratropium (Duoneb -) 1 amp NEB QIDR [facility] Last Admin: 06/02/16 11:00 Dose: 1 amp Aspirin (Asa -) 81 mg NGT DAILY [facility] Last Admin: 06/02/16 09:31 Dose: 81 mg Atorvastatin Calcium (Lipitor -) 80 mg PO HS [facility] Last Admin: 06/01/16 21:35 Dose: 80 mg Diltiazem HCl (Cardizem -) 30 mg GT QID [facility] Last Admin: 06/02/16 09:41 Dose: 30 mg Diltiazem HCl (Cardizem Injection -) 5 mg IVPUSH Q4H PRN PRN Reason: TACHYCARDIA Last Admin: 06/02/16 10:33 Dose: 5 mg Docusate Sodium (Colace -) 100 mg PO DAILY [facility] Last Admin: 06/02/16 09:31 Dose: 100 mg Enoxaparin Sodium (Lovenox -) 40 mg SQ DAILY [facility] Last Admin: 06/02/16 09:41 Dose: 40 mg Furosemide (Lasix Injection -) 10 mg IVPUSH [employer] [facility] Stop: 06/02/16 18:00 Last Admin: 06/02/16 12:26 Dose: 10 mg Sodium Chloride (Normal Saline -) 1,000 mls @ 75 mls/hr IV ASDIR [facility] Last Admin: 06/02/16 01:35 Dose: 75 mls/hr Fentanyl 500 mcg/ Dextrose 100 mls @ 5 mls/hr IJ TITR [facility] PRN Reason: 25 MCG/HR Last Admin: 06/01/16 09:30 Dose: 15 mls/hr Azithromycin 250 mg/ Dextrose 250 mls @ 250 mls/hr IVPB DAILY@1800 [facility] Last Admin: 06/01/16 17:39 Dose: 250 mls/hr Propofol (Diprivan -) 100 mls @ 1.743 mls/hr IVPB TITR [facility]; 5 MCG/KG/MIN PRN Reason: Protocol Last Admin: 06/02/16 09:30 Dose: 8.6 mls/hr Piperacillin Sod/Tazobactam Sod (Zosyn 3.375gm Ivpb (Pre-Docked)) 50 mls @ 100 mls/hr IVPB Q8H-IV [facility] PRN Reason: Protocol Last Admin: 06/02/16 09:31 Dose: 100 mls/hr Insulin Aspart (Novolog Vial Sliding Scale -) 1 vial SQ TIDAC [facility] PRN Reason: Protocol Last Admin: 06/02/16 12:15 Dose: 2 units Methylprednisolone Sodium Succinate (Solu-Medrol -) 40 mg IVPB Q6H-IV [facility] Last Admin: 06/02/16 09:31 Dose: 40 mg Nicotine (Nicoderm Patch -) 14 mg TD DAILY [facility] Last Admin: 06/02/16 09:41 Dose: 14 mg Oseltamivir Phosphate (Tamiflu Oral Suspension -) 75 mg PO BID [facility] Stop: 06/06/16 10:01 Last Admin: 06/02/16 09:32 Dose: 75 mg Pantoprazole Sodium (Protonix 40mg Ivpb (Pre-Docked)) 40 mg IVPB DAILY [facility] Last Admin: 06/02/16 09:34 Dose: 40 mg ASSESSMENT AND PLAN: Acute on Chronic Hypoxic and Hypercapneic Respiratory Failure Influenza A Acute COPD Exacerbation CAD +Troponins/Acute NSTEMI Lactic Acidosis h/o Breast Ca 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
--- NOTE | 2016-06-02 13:04 | PN ---
Physical Exam: SUBJECTIVE: Patient seen and examined at bedside. She's extubated this AM but unable to tolerate ventimask 40%. Patient is now more lethargic and back on BiPAP. OBJECTIVE: BiPAP settings: I 12, E 5, FiO2 40%, PEEP 5 Vital Signs Period Temp Pulse Resp BP Sys/Rasheed Pulse Ox Last 24 Hr 96.9 F-99.2 F 42-130 14-27 124-154/43-77 85-99 GENERAL: Weak, lethargic, in acute respiratory distress on BiPAP HEAD: AT, NC EARS, NOSE, THROAT: BiPAP LUNGS: slight wheezing b/l HEART: Tachycardic, S1 and S2, ejection murmur, rub ABDOMEN: +bs, soft, diffuse tenderness, no rebound, guarding EXTREMITIES: No peripheral edema. ABG Results ABG pH 7.12 (7.35-7.45) L* D 06/02/16 11:40 ABG pCO2 at Pt Temp 77.4 mmHg (35-45) H* D 06/02/16 11:40 ABG pO2 at Pt Temp 69.8 mmHg (70-100) L 06/02/16 11:40 ABG HCO3 23.8 meq/L (22-26) 06/02/16 11:40 ABG O2 Sat (Measured) 85.4 % (90-98.9) L 06/02/16 11:40 ABG O2 Content 10.0 % vol (15-22) L 06/02/16 11:40 ABG Base Excess -5.7 meq/l (-2-2) L 06/02/16 11:40 CBCD WBC 13.0 K/mm3 (4.0-10.0) H 06/02/16 05:05 RBC 3.21 M/mm3 (3.60-5.2) L 06/02/16 05:05 Hgb 6.7 GM/dL (10.7-15.3) L* 06/02/16 05:05 Hct 22.6 % (32.4-45.2) L 06/02/16 05:05 MCV 70.3 fl (80-96) L 06/02/16 05:05 MCHC 29.8 g/dl (32.0-36.0) L 06/02/16 05:05 RDW 22.9 % (11.6-15.6) H 06/02/16 05:05 Plt Count 167 K/MM3 (134-434) 06/02/16 05:05 MPV 9.1 fl (7.5-11.1) 06/02/16 05:05 CMP Sodium 141 mmol/L (136-145) 06/02/16 05:05 Potassium 4.3 mmol/L (3.5-5.1) 06/02/16 05:05 Chloride 104 mmol/L (98-107) 06/02/16 05:05 Carbon Dioxide 31 mmol/L (21-32) 06/02/16 05:05 Anion Gap 6 (8-16) L 06/02/16 05:05 BUN 16 mg/dL (7-18) 06/02/16 05:05 Creatinine 0.5 mg/dL (0.55-1.02) L 06/02/16 05:05 Creat Clearance w eGFR > 60 (>60) 05/31/16 05:05 Calcium 8.3 mg/dL (8.5-10.1) L 06/02/16 05:05 Total Bilirubin 0.3 mg/dL (0.2-1.0) D 05/31/16 05:05 AST 37 U/L (15-37) 05/31/16 05:05 ALT 29 U/L (12-78) D 05/31/16 05:05 Alkaline Phosphatase 49 U/L (45-117) 05/31/16 05:05 Total Protein 5.2 g/dl (6.4-8.2) L 05/31/16 05:05 Albumin 2.2 g/dl (3.4-5.0) L 05/31/16 05:05 Intake & Output 05/30/16 05/31/16 06/01/16 06/02/16 23:59 23:59 23:59 23:59 Intake Total 1124 2507 2749.3 1064 Output Total 820 865 7931 400 Balance 724 1907 799.3 664 Weight 57.198 kg 58.088 kg 57.6 kg 59.4 kg Active Medications Generic Name Dose Route Start Last Admin Trade Name Freq PRN Reason Stop Dose Admin Albuterol Sulfate 1 amp 05/30/16 23:09 06/02/16 10:20 Ventolin 0.083% Nebulizer Soln - NEB 1 amp Q4H PRN Administration SHORT OF BREATH/WHEEZING Albuterol/Ipratropium 1 amp 05/31/16 00:00 06/02/16 11:00 Duoneb - NEB 1 amp QIDR [facility] Administration Aspirin 81 mg 06/01/16 17:15 06/02/16 09:31 Asa - NGT 81 mg DAILY [facility] Administration Atorvastatin Calcium 80 mg 05/31/16 22:00 06/01/16 21:35 Lipitor - PO 80 mg HS [facility] Administration Diltiazem HCl 30 mg 05/31/16 10:00 06/02/16 09:41 Cardizem - GT 30 mg QID [facility] Administration Diltiazem HCl 5 mg 06/01/16 08:49 06/02/16 10:33 Cardizem Injection - IVPUSH 5 mg Q4H PRN Administration TACHYCARDIA Docusate Sodium 100 mg 05/31/16 10:00 06/02/16 09:31 Colace - PO 100 mg DAILY [facility] Administration Enoxaparin Sodium 40 mg 06/02/16 10:00 06/02/16 09:41 Lovenox - SQ 40 mg DAILY [facility] Administration Furosemide 10 mg 06/02/16 11:21 06/02/16 12:26 Lasix Injection - IVPUSH 06/02/16 18:00 10 mg FACE MAN [facility] Administration Sodium Chloride 1,000 mls @ 75 mls/hr 05/30/16 22:30 06/02/16 01:35 Normal Saline - IV 75 mls/hr ASDIR [facility] Administration Fentanyl 500 mcg/ Dextrose 100 mls @ 5 mls/hr 05/30/16 22:30 06/01/16 09:30 IJ 15 mls/hr TITR [facility] Administration 25 MCG/HR Azithromycin 250 mg/ Dextrose 250 mls @ 250 mls/hr 05/31/16 18:00 06/01/16 17: 39 IVPB 250 mls/hr DAILY@1800 [facility] Administration Propofol 100 mls @ 1.743 mls/hr 05/31/16 12:00 06/02/16 09:30 Diprivan - IVPB 8.6 mls/hr TITR [facility] Administration Protocol 5 MCG/KG/MIN Piperacillin Sod/Tazobactam Sod 50 mls @ 100 mls/hr 06/01/16 16:19 06/02/16 09: 31 Zosyn 3.375gm Ivpb (Pre-Docked) IVPB 100 mls/hr Q8H-IV [facility] Administration Protocol Insulin Aspart 1 vial 05/31/16 07:00 06/02/16 12:15 Novolog Vial Sliding Scale - SQ 2 units TIDAC [facility] Administration Protocol Methylprednisolone Sodium Succinate 40 mg 05/31/16 14:00 06/02/16 09:31 Solu-Medrol - IVPB 40 mg Q6H-IV [facility] Administration Nicotine 14 mg 05/31/16 10:00 06/02/16 09:41 Nicoderm Patch - TD 14 mg DAILY [facility] Administration Oseltamivir Phosphate 75 mg 05/31/16 01:00 06/02/16 09:32 Tamiflu Oral Suspension - PO 06/06/16 10:01 75 mg BID [facility] Administration Pantoprazole Sodium 40 mg 05/31/16 10:00 06/02/16 09:34 Protonix 40mg Ivpb (Pre-Docked) IVPB 40 mg DAILY [facility] Administration Microbiology 05/30/16 23:30 Nasopharyngeal Swab Influenza Types A positive Imaging CXR on 06/02: little change, no acute pathology ECHO: normal LV function ASSESSMENT/PLAN: 75 yo F h/o COPD with chronic bronchitis on home O2, HTN, HLD, CHF, CAD, stable AAA, left breast CA s/p lumpectomy and radiation therapy, remote history of intracranial bleed admitted to the ICU for acute on chronic hypercapneic respiratory failure in the setting of COPD and CHF exacerbation and flu. Respiratory: acute on chronic hypercapneic respiratory failure - Extubated now on BiPAP * ABG before BiPAP showed severe respiratory acidosis * F/U repeat ABG 1 hour after BiPAP * Reintubate if necessary - Nebulizers YEISON and PRN - Cont. Solumedrol 40mg Q6H ID: Sepsis 2/2 influenza A - Cont. tamiflu - Cont. zosyn day 2, azitromycin day 3 - Contact isolation - Prelim sputum and blood cultures negative Cardiac: NSTEMI vs. Demand ischemia - Troponins trending down with EKG changes - Cont. ASA - SVT on cardizem 30mg Q6H via OGT * was on home verampil Heme: Microcytic anemia - Hgb 6.7 today * Transfuse 2 PRBC * Lasix 10mg push after 1st PRBC * Recheck CBC 15 mins after 2nd PRBC - F/U stool OB FEN - NS 75ml/hr - Normal lytes, cont. to monitor - Start osmolite Prophylaxis - DVT: hold lovenox due to low HGB - GI: daily PPI Disposition - Cont. to monitor in ICU Code status - Full code Visit type - Emergency Visit Emergency Visit: No - New Patient This patient is new to me today: No - Critical Care Critical Care patient: Yes Total Critical Care Time (in minutes): 38 Critical Care Statement: The care of this patient involved high complexity decision making to prevent further life threatening deterioration of the patient 's condition and/or to evalute & treat vital organ system(s) failure or risk of failure.
[2016-06-02 13:17] LABS: ARTERIAL BLD GAS O2 SATURATION 90.3 % (90-98.9); ARTERIAL BLOOD GAS BASE EXCESS -2.6 meq/l (-2-2); ARTERIAL BLOOD GAS PO2 76.2 mmHg (70-100)
[2016-06-02 13:19] LABS: ALLENS TEST POSITIVE; ART PUNCT SITE RIGHT RADIAL; LPM/O2% 35; PT. ON O2? YES
[2016-06-02 13:20] LABS: ARTERIAL BLOOD GAS pH 7.16 (7.35-7.45)
--- NOTE | 2016-06-02 17:05 | EKG ---
Test Reason : Blood Pressure : / mmHG Vent. Rate : 055 BPM Atrial Rate : 055 BPM P-R Int : 142 ms QRS Dur : 100 ms QT Int : 430 ms P-R-T Axes : 038 -30 261 degrees QTc Int : 411 ms SINUS BRADYCARDIA LEFT AXIS DEVIATION INCOMPLETE RIGHT BUNDLE BRANCH BLOCK MINIMAL VOLTAGE CRITERIA FOR LVH, MAY BE NORMAL VARIANT SEPTAL INFARCT , AGE UNDETERMINED ABNORMAL ECG WHEN COMPARED WITH ECG OF 31-MAY-2016 09:14, VENT. RATE HAS DECREASED BY 32 BPM SEPTAL INFARCT IS NOW PRESENT T WAVE INVERSION MORE EVIDENT IN INFERIOR LEADS Confirmed by MARIE DAVIS MD ([id number]) on 06/02/2016 5:05:07 PM Referred By: LORENZO GUO Confirmed By:MARIE DAVIS MD
[2016-06-02] MEDS: AZITHROMYCIN IVPB 250 MG in DEXTROSE 5%-WATER - 250 ML IVPB SCH (17:52)
[2016-06-02 18:00] LABS: MCH 22.4 pg (25.7-33.7); MCHC 30.7 g/dl (32.0-36.0); MEAN CELL VOLUME 72.8 fl (80-96); MEAN PLT VOLUME 8.8 fl (7.5-11.1); PLATELET COUNT 189 K/MM3 (134-434); RDW 22.3 % (11.6-15.6); WHITE BLOOD COUNT 21.4 K/mm3 (4.0-10.0)
--- NOTE | 2016-06-02 18:54 | PN ---
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, Physician History of Present Illness: ON BIPAP - - Current Medication List Current Medications: Active Medications Albuterol Sulfate (Ventolin 0.083% Nebulizer Soln -) 1 amp NEB Q4H PRN PRN Reason: SHORT OF BREATH/WHEEZING Last Admin: 06/02/16 10:20 Dose: 1 amp Albuterol/Ipratropium (Duoneb -) 1 amp NEB QIDR [facility] Last Admin: 06/02/16 18:26 Dose: 1 amp Aspirin (Asa -) 81 mg NGT DAILY [facility] Last Admin: 06/02/16 09:31 Dose: 81 mg Atorvastatin Calcium (Lipitor -) 80 mg PO HS [facility] Last Admin: 06/01/16 21:35 Dose: 80 mg Diltiazem HCl (Cardizem -) 30 mg GT QID [facility] Last Admin: 06/02/16 17:54 Dose: 30 mg Diltiazem HCl (Cardizem Injection -) 5 mg IVPUSH Q4H PRN PRN Reason: TACHYCARDIA Last Admin: 06/02/16 15:22 Dose: 5 mg Docusate Sodium (Colace -) 100 mg PO DAILY [facility] Last Admin: 06/02/16 09:31 Dose: 100 mg Enoxaparin Sodium (Lovenox -) 40 mg SQ DAILY [facility] Last Admin: 06/02/16 09:41 Dose: 40 mg Sodium Chloride (Normal Saline -) 1,000 mls @ 75 mls/hr IV ASDIR [facility] Last Admin: 06/02/16 01:35 Dose: 75 mls/hr Fentanyl 500 mcg/ Dextrose 100 mls @ 5 mls/hr IJ TITR [facility] PRN Reason: 25 MCG/HR Last Admin: 06/01/16 09:30 Dose: 15 mls/hr Azithromycin 250 mg/ Dextrose 250 mls @ 250 mls/hr IVPB DAILY@1800 [facility] Last Admin: 06/02/16 17:52 Dose: 250 mls/hr Propofol (Diprivan -) 100 mls @ 1.743 mls/hr IVPB TITR [facility]; 5 MCG/KG/MIN PRN Reason: Protocol Last Admin: 06/02/16 09:30 Dose: 8.6 mls/hr Piperacillin Sod/Tazobactam Sod (Zosyn 3.375gm Ivpb (Pre-Docked)) 50 mls @ 100 mls/hr IVPB Q8H-IV [facility] PRN Reason: Protocol Last Admin: 06/02/16 17:32 Dose: 100 mls/hr Insulin Aspart (Novolog Vial Sliding Scale -) 1 vial SQ TIDAC [facility] PRN Reason: Protocol Last Admin: 06/02/16 17:39 Dose: Not Given Methylprednisolone Sodium Succinate (Solu-Medrol -) 40 mg IVPB Q6H-IV [facility] Last Admin: 06/02/16 15:47 Dose: 40 mg Nicotine (Nicoderm Patch -) 14 mg TD DAILY [facility] Last Admin: 06/02/16 09:41 Dose: 14 mg Oseltamivir Phosphate (Tamiflu Oral Suspension -) 75 mg PO BID [facility] Stop: 06/06/16 10:01 Last Admin: 06/02/16 09:32 Dose: 75 mg Pantoprazole Sodium (Protonix 40mg Ivpb (Pre-Docked)) 40 mg IVPB DAILY [facility] Last Admin: 06/02/16 09:34 Dose: 40 mg - Objective Vital Signs: Vital Signs Temperature 98.5 F 06/02/16 18:00 Pulse Rate 85 06/02/16 18:00 Respiratory Rate 19 06/02/16 18:00 Blood Pressure 145/59 06/02/16 18:00 O2 Sat by Pulse Oximetry (%) 99 06/02/16 18:43 Constitutional: Yes: No Distress HENT: Yes: Atraumatic Neck: Yes: Supple Cardiovascular: Yes: Regular Rate and Rhythm Respiratory: Yes: Rhonchi Gastrointestinal: Yes: Normal Bowel Sounds Extremities: Yes: WNL Neurological: Yes: Alert Labs: CBC, BMP 06/02/16 15:32 06/02/16 05:05 INR, PTT INR 0.96 (0.82-1.09) 06/02/16 05:05 Problem List - Problems (1) Respiratory failure Code(s): J96.90 - RESPIRATORY FAILURE, UNSP, UNSP W HYPOXIA OR HYPERCAPNIA Qualifiers: Chronicity: acute Respiratory failure complication: hypoxia and hypercapnia Qualified Code(s): J96.01 - Acute respiratory failure with hypoxia (2) Chronic respiratory failure with hypoxia Code(s): J96.11 - CHRONIC RESPIRATORY FAILURE WITH HYPOXIA (3) CAD (coronary artery disease) Code(s): I25.10 - ATHSCL HEART DISEASE OF [place] CORONARY ARTERY W/O ANG PCTRS (4) COPD (chronic obstructive pulmonary disease) Code(s): J44.9 - CHRONIC OBSTRUCTIVE PULMONARY DISEASE, UNSPECIFIED (5) Chronic diastolic CHF (congestive heart failure) Code(s): I50.32 - CHRONIC DIASTOLIC (CONGESTIVE) HEART FAILURE (6) HLD (hyperlipidemia) Code(s): E78.5 - HYPERLIPIDEMIA, UNSPECIFIED Qualifiers: Hyperlipidemia type: unspecified Qualified Code(s): E78.5 - Hyperlipidemia, unspecified (7) HTN (hypertension) Code(s): I10 - ESSENTIAL (PRIMARY) HYPERTENSION Qualifiers: Hypertension type: essential hypertension Qualified Code(s): I10 - Essential (primary) hypertension (8) History of cigarette smoking Code(s): Z87.891 - PERSONAL HISTORY OF NICOTINE DEPENDENCE (9) Influenza Code(s): J11.1 - FLU DUE TO UNIDENTIFIED INFLUENZA VIRUS W OTH RESP MANIFEST Assessment/Plan 1.+Influenza on tamiflu 2.Acute respiratory failure on bipap iv steroids abx duo nebs 3.Worsening anemia 4.NSTEMI 5.History breast cancer, lung mass with negative bx 6.COPD, chronic with chronic hypoxemia 7.chf STABLE CC 30 MIN
[2016-06-02] MEDS: ATORVASTATIN CA 80 MG TABLET (FP) PO SCH (21:44)
[2016-06-02 21:59] LABS: PLATELET ESTIMATE ADEQUATE (NORMAL)
[2016-06-03] MEDS: PIPERACILLIN/TAZOB 3.375 GM 50 ML IVPB SCH ×3 (02:13→17:14)
[2016-06-03] MEDS: methylPREDNISolone NA SUCC 40 MG/1 ML VIAL IVPB SCH ×3 (02:13→19:05)
[2016-06-03] MEDS: ALBUTEROL SO4 2.5/IPRATROPIUM 0.5 INH SOL 3 ML VIAL.NEB. NEB SCH ×3 (06:06→18:52)
[2016-06-03] MEDS: INSULIN SLIDING SCALE (NOVOLOG) 1 VIAL SQ SCH ×3 (06:23→16:34)
[2016-06-03 07:19] LABS: ARTERIAL BLD GAS O2 SATURATION 91.7 % (90-98.9); ARTERIAL BLOOD GAS BASE EXCESS 4.6 meq/l (-2-2); ARTERIAL BLOOD GAS HCO3 31.1 meq/L (22-26)
[2016-06-03 07:20] LABS: ALLENS TEST POSITIVE; ART PUNCT SITE RIGHT RADIAL; LPM/O2% 35%; MECH. VENT. BIPAP; PT. ON O2? YES; TYPE OF O2 BIPAP; VENT RATE 20; VT/PRESS 18/5
[2016-06-03 07:21] LABS: ARTERIAL BLOOD GAS PO2 67.2 mmHg (70-100); ARTERIAL BLOOD GAS pH 7.34 (7.35-7.45)
[2016-06-03 08:18] LABS: MCH 22.4 pg (25.7-33.7); MEAN CELL VOLUME 72.1 fl (80-96); MEAN PLT VOLUME 8.8 fl (7.5-11.1); PLATELET COUNT 158 K/MM3 (134-434); RDW 22.4 % (11.6-15.6); WHITE BLOOD COUNT 12.4 K/mm3 (4.0-10.0)
[2016-06-03] MEDS ORDERED: PT OWN MED DRAWER 7, Y5N ONE (08:18)
[2016-06-03 08:49] LABS: ALBUMIN 2.2 g/dl (3.4-5.0); ALK PHOS 67 U/L (45-117); ANION GAP 8 (8-16); CO2 32 mmol/L (21-32); CREATININE 0.7 mg/dL (0.55-1.02); GLUCOSE,RANDOM 140 mg/dL (74-106); SGOT/AST 172 U/L (15-37); SGPT/ALT 82 U/L (12-78); TOT PROT 5.5 g/dl (6.4-8.2)
--- NOTE | 2016-06-03 09:17 | PN ---
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, Physician Chief Complaint: extubated, alert TELE: NSR w/ intermittent PSVT History of Present Illness: BP also running high - Current Medication List Current Medications: Active Medications Albuterol Sulfate (Ventolin 0.083% Nebulizer Soln -) 1 amp NEB Q4H PRN PRN Reason: SHORT OF BREATH/WHEEZING Last Admin: 06/02/16 10:20 Dose: 1 amp Albuterol/Ipratropium (Duoneb -) 1 amp NEB QIDR [facility] Last Admin: 06/03/16 06:06 Dose: 1 amp Aspirin (Asa -) 81 mg NGT DAILY [facility] Last Admin: 06/02/16 09:31 Dose: 81 mg Atorvastatin Calcium (Lipitor -) 80 mg PO HS [facility] Last Admin: 06/02/16 21:44 Dose: 80 mg Docusate Sodium (Colace -) 100 mg PO DAILY [facility] Last Admin: 06/02/16 09:31 Dose: 100 mg Enoxaparin Sodium (Lovenox -) 40 mg SQ DAILY [facility] Last Admin: 06/02/16 09:41 Dose: 40 mg Sodium Chloride (Normal Saline -) 1,000 mls @ 75 mls/hr IV ASDIR [facility] Last Admin: 06/02/16 01:35 Dose: 75 mls/hr Fentanyl 500 mcg/ Dextrose 100 mls @ 5 mls/hr IJ TITR [facility] PRN Reason: 25 MCG/HR Last Admin: 06/01/16 09:30 Dose: 15 mls/hr Azithromycin 250 mg/ Dextrose 250 mls @ 250 mls/hr IVPB DAILY@1800 [facility] Last Admin: 06/02/16 17:52 Dose: 250 mls/hr Propofol (Diprivan -) 100 mls @ 1.743 mls/hr IVPB TITR [facility]; 5 MCG/KG/MIN PRN Reason: Protocol Last Admin: 06/02/16 09:30 Dose: 8.6 mls/hr Piperacillin Sod/Tazobactam Sod (Zosyn 3.375gm Ivpb (Pre-Docked)) 50 mls @ 100 mls/hr IVPB Q8H-IV [facility] PRN Reason: Protocol Last Admin: 06/03/16 02:13 Dose: 100 mls/hr Insulin Aspart (Novolog Vial Sliding Scale -) 1 vial SQ TIDAC [facility] PRN Reason: Protocol Last Admin: 06/03/16 06:23 Dose: 1 unit Methylprednisolone Sodium Succinate (Solu-Medrol -) 40 mg IVPB Q6H-IV [facility] Last Admin: 06/03/16 08:52 Dose: 40 mg Nicotine (Nicoderm Patch -) 14 mg TD DAILY [facility] Last Admin: 06/02/16 09:41 Dose: 14 mg Oseltamivir Phosphate (Tamiflu Oral Suspension -) 75 mg PO BID [facility] Stop: 06/06/16 10:01 Last Admin: 06/02/16 21:44 Dose: 75 mg Pantoprazole Sodium (Protonix 40mg Ivpb (Pre-Docked)) 40 mg IVPB DAILY [facility] Last Admin: 06/02/16 09:34 Dose: 40 mg Verapamil HCl (Calan Sr -) 120 mg PO DAILY [facility] - Objective Vital Signs: Vital Signs Temperature 97.8 F 06/03/16 06:00 Pulse Rate 56 L 06/03/16 06:00 Respiratory Rate 18 06/03/16 06:00 Blood Pressure 181/59 06/03/16 06:00 O2 Sat by Pulse Oximetry (%) 100 06/03/16 05:37 Constitutional: Yes: No Distress Cardiovascular: Yes: Regular Rate and Rhythm Respiratory: Yes: Other (decreased breath sounds and rhonchi) Gastrointestinal: Yes: Soft Edema: No Neurological: Yes: Alert Labs: CBC, BMP 06/03/16 07:45 06/03/16 07:45 INR, PTT INR 0.96 (0.82-1.09) 06/02/16 05:05 Laboratory Tests 06/03/16 06/03/16 06/03/16 07:14 07:45 07:45 WBC 12.4 H D Hgb 9.9 L Plt Count 158 ABG pH 7.34 L D ABG pCO2 at Pt Temp 59.6 H D ABG pO2 at Pt Temp 67.2 L O2 Delivery Device Bipap Oxygen Flow Rate 35% Sodium 144 Potassium 4.3 Creatinine 0.7 D - ....Imaging EKG: Image Reviewed Assessment/Plan Assessment/Plan +Influenza Acute respiratory failure Worsening anemia NSTEMI History breast cancer, lung mass with negative bx COPD, chronic with chronic hypoxemia Mild PSVT Chronic diastolic CHF Carotid stenosis s/p CEA REC: 1. Acute respiratory failure: + influenza Now extubated 2. Anemia: -stool guaiac -Follow H/H -appropriate bump in H/H s/p transfusion 3. NSTEMI: -in setting of acute illness, acute resp failure. -Known/suspected underlying CAD -Has has anginal sx for some time, despite maximal medical rx: has refused cath on multiple occasions -Repeat echo w/ normal LV fxn. Mild -Rate control of PSVT with resumption of Verapamil -ASA 81mg as tolerated. 4. HTN: -resume home Verapamil now that extubated fo PSVT/HTN
[2016-06-03] MEDS: NICOTINE 14 MG/24 HOURS TOPICAL PATCH TD SCH (09:43)
[2016-06-03] MEDS: DOCUSATE SODIUM 100 MG CAPSULE (FP) PO SCH (09:44)
[2016-06-03] MEDS: PANTOPRAZOLE SODIUM 40 MG/100 ML PRE-DOCKED IVPB SCH (09:45)
[2016-06-03] MEDS: ENOXAPARIN NA (PORCINE) 40 MG/0.4 ML DISP.SYRIN SQ SCH (09:45)
[2016-06-03] MEDS: OSELTAMIVIR PHOSPHATE 6 MG/1 ML - 60ML BOTTLE PO SCH ×2 (09:45→21:57)
[2016-06-03] MEDS: SODIUM CHLORIDE 1,000 ML IV SCH (09:46)
[2016-06-03] MEDS: ASPIRIN 81 MG CHEWABLE TABLETS NGT SCH (09:47)
[2016-06-03] MEDS: VERAPAMIL HCL 120 MG E.R. TABLET PO SCH (11:45)
--- NOTE | 2016-06-03 12:15 | PN ---
Physical Exam: SUBJECTIVE: Patient seen and examined at bedside. She's extubated yesterday and tolerate BiPAP fine overnight. Patient reported having slight sob, cough and diffuse abd pain which is chronic in nature. Per nurse, no other acute event overnight. OBJECTIVE: BiPAP settings: I 12, E 6, FiO2 40%, Rate 18, PEEP 5 Vital Signs Period Temp Pulse Resp BP Sys/Rasheed Pulse Ox Last 24 Hr 97.8 F-98.7 F 56-120 18-23 145-181/55-75 93-100 GENERAL: Weak, lethargic, in slight respiratory distress on BiPAP HEAD: AT, NC EARS, NOSE, THROAT: BiPAP LUNGS: wheezing b/l HEART: Tachycardic, S1 and S2, ejection murmur, rub ABDOMEN: +bs, soft, diffuse tenderness, no rebound, guarding EXTREMITIES: No peripheral edema. ABG Results ABG pH 7.34 (7.35-7.45) L D 06/03/16 07:14 ABG pCO2 at Pt Temp 59.6 mmHg (35-45) H D 06/03/16 07:14 ABG pO2 at Pt Temp 67.2 mmHg (70-100) L 06/03/16 07:14 ABG HCO3 31.1 meq/L (22-26) H 06/03/16 07:14 ABG O2 Sat (Measured) 91.7 % (90-98.9) 06/03/16 07:14 ABG O2 Content 12.7 % vol (15-22) L 06/03/16 07:14 ABG Base Excess 4.6 meq/l (-2-2) H 06/03/16 07:14 CBCD WBC 12.4 K/mm3 (4.0-10.0) H D 06/03/16 07:45 RBC 4.41 M/mm3 (3.60-5.2) 06/03/16 07:45 Hgb 9.9 GM/dL (10.7-15.3) L 06/03/16 07:45 Hct 31.8 % (32.4-45.2) L 06/03/16 07:45 MCV 72.1 fl (80-96) L 06/03/16 07:45 MCHC 31.0 g/dl (32.0-36.0) L 06/03/16 07:45 RDW 22.4 % (11.6-15.6) H 06/03/16 07:45 Plt Count 158 K/MM3 (134-434) 06/03/16 07:45 MPV 8.8 fl (7.5-11.1) 06/03/16 07:45 CMP Sodium 144 mmol/L (136-145) 06/03/16 07:45 Potassium 4.3 mmol/L (3.5-5.1) 06/03/16 07:45 Chloride 104 mmol/L (98-107) 06/03/16 07:45 Carbon Dioxide 32 mmol/L (21-32) 06/03/16 07:45 Anion Gap 8 (8-16) 06/03/16 07:45 BUN 24 mg/dL (7-18) H D 06/03/16 07:45 Creatinine 0.7 mg/dL (0.55-1.02) D 06/03/16 07:45 Creat Clearance w eGFR > 60 (>60) 06/03/16 07:45 Calcium 9.0 mg/dL (8.5-10.1) 06/03/16 07:45 Total Bilirubin 1.0 mg/dL (0.2-1.0) D 06/03/16 07:45 AST 172 U/L (15-37) H D 06/03/16 07:45 ALT 82 U/L (12-78) H D 06/03/16 07:45 Alkaline Phosphatase 67 U/L (45-117) D 06/03/16 07:45 Total Protein 5.5 g/dl (6.4-8.2) L 06/03/16 07:45 Albumin 2.2 g/dl (3.4-5.0) L 06/03/16 07:45 Intake & Output 05/31/16 06/01/16 06/02/16 06/03/16 23:59 23:59 23:59 23:59 Intake Total 2507 2749.3 3046.2 836 Output Total 600 1950 3000 400 Balance 1907 799.3 46.2 436 Weight 58.088 kg 57.6 kg 59.4 kg 61.8 kg Active Medications Generic Name Dose Route Start Last Admin Trade Name Freq PRN Reason Stop Dose Admin Albuterol Sulfate 1 amp 05/30/16 23:09 06/02/16 10:20 Ventolin 0.083% Nebulizer Soln - NEB 1 amp Q4H PRN Administration SHORT OF BREATH/WHEEZING Albuterol/Ipratropium 1 amp 05/31/16 00:00 06/03/16 11:41 Duoneb - NEB 1 amp QIDR [facility] Administration Aspirin 81 mg 06/01/16 17:15 06/03/16 09:47 Asa - NGT 81 mg DAILY [facility] Administration Atorvastatin Calcium 80 mg 05/31/16 22:00 06/02/16 21:44 Lipitor - PO 80 mg HS [facility] Administration Docusate Sodium 100 mg 05/31/16 10:00 06/03/16 09:44 Colace - PO 100 mg DAILY [facility] Administration Enoxaparin Sodium 40 mg 06/02/16 10:00 06/03/16 09:45 Lovenox - SQ 40 mg DAILY [facility] Administration Azithromycin 250 mg/ Dextrose 250 mls @ 250 mls/hr 05/31/16 18:00 06/02/16 17: 52 IVPB 250 mls/hr DAILY@1800 [facility] Administration Piperacillin Sod/Tazobactam Sod 50 mls @ 100 mls/hr 06/01/16 16:19 06/03/16 09: 45 Zosyn 3.375gm Ivpb (Pre-Docked) IVPB 100 mls/hr Q8H-IV [facility] Administration Protocol Insulin Aspart 1 vial 05/31/16 07:00 06/03/16 11:04 Novolog Vial Sliding Scale - SQ 1 unit TIDAC [facility] Administration Protocol Methylprednisolone Sodium Succinate 40 mg 06/03/16 18:00 Solu-Medrol - IVPB Q8H-IV [facility] Nicotine 14 mg 05/31/16 10:00 06/03/16 09:43 Nicoderm Patch - TD 14 mg DAILY [facility] Administration Oseltamivir Phosphate 75 mg 05/31/16 01:00 06/03/16 09:45 Tamiflu Oral Suspension - PO 06/06/16 10:01 75 mg BID [facility] Administration Pantoprazole Sodium 40 mg 05/31/16 10:00 06/03/16 09:45 Protonix 40mg Ivpb (Pre-Docked) IVPB 40 mg DAILY [facility] Administration Verapamil HCl 120 mg 06/03/16 10:00 06/03/16 11:45 Calan Sr - PO 120 mg DAILY [facility] Administration Microbiology 05/30/16 23:30 Nasopharyngeal Swab Influenza Types A positive Imaging CXR on 06/02: little change, no acute pathology ECHO: normal LV function ASSESSMENT/PLAN: 75 yo F h/o COPD with chronic bronchitis on home O2, HTN, HLD, CHF, CAD, stable AAA, left breast CA s/p lumpectomy and radiation therapy, remote history of intracranial bleed admitted to the ICU for acute on chronic hypercapneic respiratory failure in the setting of COPD and CHF exacerbation and flu. Respiratory: acute on chronic hypercapneic respiratory failure - Extubated yesterday now on BiPAP * Wean to NC 3L if tolerated - Nebulizers [facility] and PRN - Titrate Solumedrol 40mg Q6H down to Q8H ID: Sepsis 2/2 influenza A - Cont. tamiflu - Cont. zosyn day 3, azitromycin day 4 - Contact isolation - Prelim sputum and blood cultures negative Cardiac: NSTEMI vs. Demand ischemia - Troponins trending down with EKG changes - Cont. ASA - Switched from cardizem 30mg Q6H to home verampil dose for SVT Heme: Microcytic anemia - H&H wnl s/p 2 PRBC - Stool OB negative FEN - NS discontinued, encourage PO intake - Normal lytes, cont. to monitor - Full liquid diet Prophylaxis - DVT: hold lovenox due to low HGB - GI: daily PPI Disposition - Cont. to monitor in ICU Code status - Full code Visit type - Emergency Visit Emergency Visit: No - New Patient This patient is new to me today: No - Critical Care Critical Care patient: Yes Total Critical Care Time (in minutes): 35 Critical Care Statement: The care of this patient involved high complexity decision making to prevent further life threatening deterioration of the patient 's condition and/or to evalute & treat vital organ system(s) failure or risk of failure.
--- NOTE | 2016-06-03 15:06 | PN ---
Teaching Attending Note Name of Resident: Conrad Pagan ATTENDING PHYSICIAN STATEMENT I saw and evaluated the patient. I reviewed the resident's note and discussed the case with the resident. I agree with the resident's findings and plan as documented. SUBJECTIVE: Patient seen and examined in the ICU. Remains extubated but has been on NIPPV since that time. Awake and responsive. Reports SOB shortly after being removed from NIPPV therapy. Intake & Output 05/31/16 06/01/16 06/02/16 06/03/16 23:59 23:59 23:59 23:59 Intake Total 2507 2749.3 3046.2 1136 Output Total 600 1950 3000 700 Balance 1907 799.3 46.2 436 Weight 128 lb 1 oz 126 lb 15.78 oz 130 lb 15.273 oz 136 lb 3.931 oz Last Vital Signs Temp Pulse Resp BP Pulse Ox 98.6 F 69 18 162/52 96 06/03/16 14:00 06/03/16 14:00 06/03/16 14:00 06/03/16 14:00 06/03/16 14:21 Active Medications Albuterol Sulfate (Ventolin 0.083% Nebulizer Soln -) 1 amp NEB Q4H PRN PRN Reason: SHORT OF BREATH/WHEEZING Last Admin: 06/02/16 10:20 Dose: 1 amp Albuterol/Ipratropium (Duoneb -) 1 amp NEB QIDR [facility] Last Admin: 06/03/16 11:41 Dose: 1 amp Aspirin (Asa -) 81 mg NGT DAILY [facility] Last Admin: 06/03/16 09:47 Dose: 81 mg Atorvastatin Calcium (Lipitor -) 80 mg PO HS [facility] Last Admin: 06/02/16 21:44 Dose: 80 mg Docusate Sodium (Colace -) 100 mg PO DAILY [facility] Last Admin: 06/03/16 09:44 Dose: 100 mg Enoxaparin Sodium (Lovenox -) 40 mg SQ DAILY [facility] Last Admin: 06/03/16 09:45 Dose: 40 mg Azithromycin 250 mg/ Dextrose 250 mls @ 250 mls/hr IVPB DAILY@1800 [facility] Last Admin: 06/02/16 17:52 Dose: 250 mls/hr Piperacillin Sod/Tazobactam Sod (Zosyn 3.375gm Ivpb (Pre-Docked)) 50 mls @ 100 mls/hr IVPB Q8H-IV [facility] PRN Reason: Protocol Last Admin: 06/03/16 09:45 Dose: 100 mls/hr Insulin Aspart (Novolog Vial Sliding Scale -) 1 vial SQ TIDAC [facility] PRN Reason: Protocol Last Admin: 06/03/16 11:04 Dose: 1 unit Methylprednisolone Sodium Succinate (Solu-Medrol -) 40 mg IVPB Q8H-IV [facility] Nicotine (Nicoderm Patch -) 14 mg TD DAILY [facility] Last Admin: 06/03/16 09:43 Dose: 14 mg Oseltamivir Phosphate (Tamiflu Oral Suspension -) 75 mg PO BID [facility] Stop: 06/06/16 10:01 Last Admin: 06/03/16 09:45 Dose: 75 mg Pantoprazole Sodium (Protonix 40mg Ivpb (Pre-Docked)) 40 mg IVPB DAILY [facility] Last Admin: 06/03/16 09:45 Dose: 40 mg Verapamil HCl (Calan Sr -) 120 mg PO DAILY [facility] Last Admin: 06/03/16 11:45 Dose: 120 mg Gen: Tachypneic on BiPAP Heart: tachycardic, regular Lung: scattered rhonchi, distant breath sounds Abd: soft, nontender Ext: no edema Laboratory Results - last 24 hr 06/02/16 06/02/16 06/02/16 12:08 15:32 16:36 WBC 21.4 H D RBC 4.56 D Hgb 10.2 L D Hct 33.2 D MCV 72.8 L MCHC 30.7 L RDW 22.3 H Plt Count 189 MPV 8.8 Neutrophils % 95.0 H Lymphocytes % 2.0 L D Monocytes % 1.0 L Band Neutrophils 2.0 Differential Comment Manual diff done Platelet Estimate Adequate Morphology Comment Slide scanned Puncture Site ABG pH ABG pCO2 at Pt Temp ABG pO2 at Pt Temp ABG HCO3 ABG O2 Sat (Measured) ABG O2 Content ABG Base Excess Rafi Test O2 Delivery Device Oxygen Flow Rate Vent Mode Vent Rate Mechanical Rate PEEP Pressure Support Vent Sodium Potassium Chloride Carbon Dioxide Anion Gap BUN Creatinine Creat Clearance w eGFR POC Glucometer 218.87179 132.77547 Random Glucose Calcium Total Bilirubin AST ALT Alkaline Phosphatase Total Protein Albumin Stool Occult Blood 06/03/16 06/03/16 06/03/16 06:13 07:14 07:45 WBC 12.4 H D RBC 4.41 Hgb 9.9 L Hct 31.8 L MCV 72.1 L MCHC 31.0 L RDW 22.4 H Plt Count 158 MPV 8.8 Neutrophils % Lymphocytes % Monocytes % Band Neutrophils Differential Comment Platelet Estimate Morphology Comment Puncture Site Right radial ABG pH 7.34 L D ABG pCO2 at Pt Temp 59.6 H D ABG pO2 at Pt Temp 67.2 L ABG HCO3 31.1 H ABG O2 Sat (Measured) 91.7 ABG O2 Content 12.7 L ABG Base Excess 4.6 H Rafi Test Positive O2 Delivery Device Bipap Oxygen Flow Rate 35% Vent Mode S/t Vent Rate 20 Mechanical Rate Bipap PEEP 0.0 Pressure Support Vent 18/5 Sodium Potassium Chloride Carbon Dioxide Anion Gap BUN Creatinine Creat Clearance w eGFR POC Glucometer 157.85452 Random Glucose Calcium Total Bilirubin AST ALT Alkaline Phosphatase Total Protein Albumin Stool Occult Blood 06/03/16 06/03/16 06/03/16 07:45 11:01 12:05 WBC RBC Hgb Hct MCV MCHC RDW Plt Count MPV Neutrophils % Lymphocytes % Monocytes % Band Neutrophils Differential Comment Platelet Estimate Morphology Comment Puncture Site ABG pH ABG pCO2 at Pt Temp ABG pO2 at Pt Temp ABG HCO3 ABG O2 Sat (Measured) ABG O2 Content ABG Base Excess Rafi Test O2 Delivery Device Oxygen Flow Rate Vent Mode Vent Rate Mechanical Rate PEEP Pressure Support Vent Sodium 144 Potassium 4.3 Chloride 104 Carbon Dioxide 32 Anion Gap 8 BUN 24 H D Creatinine 0.7 D Creat Clearance w eGFR > 60 POC Glucometer 194.29151 Random Glucose 140 H Calcium 9.0 Total Bilirubin 1.0 D AST 172 H D ALT 82 H D Alkaline Phosphatase 67 D Total Protein 5.5 L Albumin 2.2 L Stool Occult Blood Negative ASSESSMENT AND PLAN: Acute on Chronic Hypoxic and Hypercapneic Respiratory Failure Influenza A Acute COPD Exacerbation CAD +Troponins/Acute NSTEMI Lactic Acidosis h/o Breast Ca 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
[2016-06-03] MEDS: AZITHROMYCIN IVPB 250 MG in DEXTROSE 5%-WATER - 250 ML IVPB SCH (17:13)
--- NOTE | 2016-06-03 17:41 | PN ---
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, Physician History of Present Illness: patient extubated on ventimask still not breathing easily gos in and out of tachy - Current Medication List Current Medications: Active Medications Albuterol Sulfate (Ventolin 0.083% Nebulizer Soln -) 1 amp NEB Q4H PRN PRN Reason: SHORT OF BREATH/WHEEZING Last Admin: 06/02/16 10:20 Dose: 1 amp Albuterol/Ipratropium (Duoneb -) 1 amp NEB QIDR [facility] Last Admin: 06/03/16 11:41 Dose: 1 amp Aspirin (Asa -) 81 mg NGT DAILY [facility] Last Admin: 06/03/16 09:47 Dose: 81 mg Atorvastatin Calcium (Lipitor -) 80 mg PO HS [facility] Last Admin: 06/02/16 21:44 Dose: 80 mg Docusate Sodium (Colace -) 100 mg PO DAILY [facility] Last Admin: 06/03/16 09:44 Dose: 100 mg Enoxaparin Sodium (Lovenox -) 40 mg SQ DAILY [facility] Last Admin: 06/03/16 09:45 Dose: 40 mg Azithromycin 250 mg/ Dextrose 250 mls @ 250 mls/hr IVPB DAILY@1800 [facility] Last Admin: 06/03/16 17:13 Dose: 250 mls/hr Piperacillin Sod/Tazobactam Sod (Zosyn 3.375gm Ivpb (Pre-Docked)) 50 mls @ 100 mls/hr IVPB Q8H-IV [facility] PRN Reason: Protocol Last Admin: 06/03/16 17:14 Dose: 100 mls/hr Insulin Aspart (Novolog Vial Sliding Scale -) 1 vial SQ TIDAC [facility] PRN Reason: Protocol Last Admin: 06/03/16 16:34 Dose: 1 unit Methylprednisolone Sodium Succinate (Solu-Medrol -) 40 mg IVPB Q8H-IV [facility] Nicotine (Nicoderm Patch -) 14 mg TD DAILY [facility] Last Admin: 06/03/16 09:43 Dose: 14 mg Oseltamivir Phosphate (Tamiflu Oral Suspension -) 75 mg PO BID [facility] Stop: 06/06/16 10:01 Last Admin: 06/03/16 09:45 Dose: 75 mg Pantoprazole Sodium (Protonix 40mg Ivpb (Pre-Docked)) 40 mg IVPB DAILY [facility] Last Admin: 06/03/16 09:45 Dose: 40 mg Verapamil HCl (Calan Sr -) 120 mg PO DAILY [facility] Last Admin: 06/03/16 11:45 Dose: 120 mg - Objective Vital Signs: Vital Signs Temperature 98.6 F 06/03/16 14:00 Pulse Rate 67 06/03/16 16:00 Respiratory Rate 22 06/03/16 16:00 Blood Pressure 168/69 06/03/16 16:00 O2 Sat by Pulse Oximetry (%) 99 06/03/16 16:21 Constitutional: Yes: Calm, Moderate Distress Cardiovascular: Yes: Regular Rate and Rhythm, Tachycardia Respiratory: Yes: Poor Air Entry, Rhonchi, Other (crackles) Gastrointestinal: Yes: Normal Bowel Sounds, Soft Musculoskeletal: Yes: WNL Extremities: Yes: WNL Neurological: Yes: Alert, Oriented Psychiatric: Yes: Alert Labs: CBC, BMP 06/03/16 07:45 06/03/16 07:45 INR, PTT INR 0.96 (0.82-1.09) 06/02/16 05:05 - ....Imaging Chest X-ray: Report Reviewed, Image Reviewed Assessment/Plan Problem List - Problems (1) Respiratory failure Code(s): J96.90 - RESPIRATORY FAILURE, UNSP, UNSP W HYPOXIA OR HYPERCAPNIA Qualifiers: Chronicity: acute Respiratory failure complication: hypoxia and hypercapnia Qualified Code(s): J96.01 - Acute respiratory failure with hypoxia (2) Chronic respiratory failure with hypoxia Code(s): J96.11 - CHRONIC RESPIRATORY FAILURE WITH HYPOXIA (3) CAD (coronary artery disease) Code(s): I25.10 - ATHSCL HEART DISEASE OF [place] CORONARY ARTERY W/O ANG PCTRS (4) COPD (chronic obstructive pulmonary disease) Assessment/Plan: intubated Code(s): J44.9 - CHRONIC OBSTRUCTIVE PULMONARY DISEASE, UNSPECIFIED (5) Chronic diastolic CHF (congestive heart failure) Code(s): I50.32 - CHRONIC DIASTOLIC (CONGESTIVE) HEART FAILURE (6) HLD (hyperlipidemia) Code(s): E78.5 - HYPERLIPIDEMIA, UNSPECIFIED Qualifiers: Hyperlipidemia type: unspecified Qualified Code(s): E78.5 - Hyperlipidemia, unspecified (7) HTN (hypertension) Code(s): I10 - ESSENTIAL (PRIMARY) HYPERTENSION Qualifiers: Hypertension type: essential hypertension Qualified Code(s): I10 - Essential (primary) hypertension (8) History of cigarette smoking Code(s): Z87.891 - PERSONAL HISTORY OF NICOTINE DEPENDENCE plan continue current mgmt continue abx nutrition resp support rest as per icu mgmt incentive byron cc time 40 min
--- NOTE | 2016-06-03 17:42 | PN ---
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, Physician History of Present Illness: patient could not tolerate ventimask now on bipap - Current Medication List Current Medications: Active Medications Albuterol Sulfate (Ventolin 0.083% Nebulizer Soln -) 1 amp NEB Q4H PRN PRN Reason: SHORT OF BREATH/WHEEZING Last Admin: 06/02/16 10:20 Dose: 1 amp Albuterol/Ipratropium (Duoneb -) 1 amp NEB QIDR [facility] Last Admin: 06/03/16 11:41 Dose: 1 amp Aspirin (Asa -) 81 mg NGT DAILY [facility] Last Admin: 06/03/16 09:47 Dose: 81 mg Atorvastatin Calcium (Lipitor -) 80 mg PO HS [facility] Last Admin: 06/02/16 21:44 Dose: 80 mg Docusate Sodium (Colace -) 100 mg PO DAILY [facility] Last Admin: 06/03/16 09:44 Dose: 100 mg Enoxaparin Sodium (Lovenox -) 40 mg SQ DAILY [facility] Last Admin: 06/03/16 09:45 Dose: 40 mg Azithromycin 250 mg/ Dextrose 250 mls @ 250 mls/hr IVPB DAILY@1800 [facility] Last Admin: 06/03/16 17:13 Dose: 250 mls/hr Piperacillin Sod/Tazobactam Sod (Zosyn 3.375gm Ivpb (Pre-Docked)) 50 mls @ 100 mls/hr IVPB Q8H-IV [facility] PRN Reason: Protocol Last Admin: 06/03/16 17:14 Dose: 100 mls/hr Insulin Aspart (Novolog Vial Sliding Scale -) 1 vial SQ TIDAC [facility] PRN Reason: Protocol Last Admin: 06/03/16 16:34 Dose: 1 unit Methylprednisolone Sodium Succinate (Solu-Medrol -) 40 mg IVPB Q8H-IV [facility] Nicotine (Nicoderm Patch -) 14 mg TD DAILY [facility] Last Admin: 06/03/16 09:43 Dose: 14 mg Oseltamivir Phosphate (Tamiflu Oral Suspension -) 75 mg PO BID [facility] Stop: 06/06/16 10:01 Last Admin: 06/03/16 09:45 Dose: 75 mg Pantoprazole Sodium (Protonix 40mg Ivpb (Pre-Docked)) 40 mg IVPB DAILY [facility] Last Admin: 06/03/16 09:45 Dose: 40 mg Verapamil HCl (Calan Sr -) 120 mg PO DAILY [facility] Last Admin: 06/03/16 11:45 Dose: 120 mg - Objective Vital Signs: Vital Signs Temperature 98.6 F 06/03/16 14:00 Pulse Rate 67 06/03/16 16:00 Respiratory Rate 22 06/03/16 16:00 Blood Pressure 168/69 06/03/16 16:00 O2 Sat by Pulse Oximetry (%) 99 06/03/16 16:21 Constitutional: Yes: Calm, Mild Distress Cardiovascular: Yes: Regular Rate and Rhythm, Tachycardia Respiratory: Yes: Regular, On BiPap, Rhonchi, Other Gastrointestinal: Yes: Normal Bowel Sounds, Soft Musculoskeletal: Yes: WNL Extremities: Yes: WNL Neurological: Yes: Alert, Oriented Psychiatric: Yes: Alert, Oriented Labs: CBC, BMP 06/03/16 07:45 06/03/16 07:45 INR, PTT INR 0.96 (0.82-1.09) 06/02/16 05:05 - ....Imaging Chest X-ray: Report Reviewed, Image Reviewed Assessment/Plan Problem List - Problems (1) Respiratory failure Code(s): J96.90 - RESPIRATORY FAILURE, UNSP, UNSP W HYPOXIA OR HYPERCAPNIA Qualifiers: Chronicity: acute Respiratory failure complication: hypoxia and hypercapnia Qualified Code(s): J96.01 - Acute respiratory failure with hypoxia (2) Chronic respiratory failure with hypoxia Code(s): J96.11 - CHRONIC RESPIRATORY FAILURE WITH HYPOXIA (3) CAD (coronary artery disease) Code(s): I25.10 - ATHSCL HEART DISEASE OF [place] CORONARY ARTERY W/O ANG PCTRS (4) COPD (chronic obstructive pulmonary disease) Assessment/Plan: intubated Code(s): J44.9 - CHRONIC OBSTRUCTIVE PULMONARY DISEASE, UNSPECIFIED (5) Chronic diastolic CHF (congestive heart failure) Code(s): I50.32 - CHRONIC DIASTOLIC (CONGESTIVE) HEART FAILURE (6) HLD (hyperlipidemia) Code(s): E78.5 - HYPERLIPIDEMIA, UNSPECIFIED Qualifiers: Hyperlipidemia type: unspecified Qualified Code(s): E78.5 - Hyperlipidemia, unspecified (7) HTN (hypertension) Code(s): I10 - ESSENTIAL (PRIMARY) HYPERTENSION Qualifiers: Hypertension type: essential hypertension Qualified Code(s): I10 - Essential (primary) hypertension (8) History of cigarette smoking Code(s): Z87.891 - PERSONAL HISTORY OF NICOTINE DEPENDENCE +Troponins/Acute NSTEMI Lactic Acidosis h/o Breast Ca Lung Nodules with recent biopsy showing necrotizing granulomas Smoker patient having purulent sputum plan continue current mgmt continue abx nutrition resp support rest as per icu mgmt incentive byron please send sputum for culture cc time 40 min
--- NOTE | 2016-06-03 20:44 | PN ---
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, Physician History of Present Illness: on bipap - Current Medication List Current Medications: Active Medications Albuterol Sulfate (Ventolin 0.083% Nebulizer Soln -) 1 amp NEB Q4H PRN PRN Reason: SHORT OF BREATH/WHEEZING Last Admin: 06/02/16 10:20 Dose: 1 amp Albuterol/Ipratropium (Duoneb -) 1 amp NEB QIDR [facility] Last Admin: 06/03/16 18:52 Dose: 1 amp Aspirin (Asa -) 81 mg NGT DAILY [facility] Last Admin: 06/03/16 09:47 Dose: 81 mg Atorvastatin Calcium (Lipitor -) 80 mg PO HS [facility] Last Admin: 06/02/16 21:44 Dose: 80 mg Docusate Sodium (Colace -) 100 mg PO DAILY [facility] Last Admin: 06/03/16 09:44 Dose: 100 mg Enoxaparin Sodium (Lovenox -) 40 mg SQ DAILY [facility] Last Admin: 06/03/16 09:45 Dose: 40 mg Azithromycin 250 mg/ Dextrose 250 mls @ 250 mls/hr IVPB DAILY@1800 [facility] Last Admin: 06/03/16 17:13 Dose: 250 mls/hr Piperacillin Sod/Tazobactam Sod (Zosyn 3.375gm Ivpb (Pre-Docked)) 50 mls @ 100 mls/hr IVPB Q8H-IV [facility] PRN Reason: Protocol Last Admin: 06/03/16 17:14 Dose: 100 mls/hr Insulin Aspart (Novolog Vial Sliding Scale -) 1 vial SQ TIDAC [facility] PRN Reason: Protocol Last Admin: 06/03/16 16:34 Dose: 1 unit Methylprednisolone Sodium Succinate (Solu-Medrol -) 40 mg IVPB Q8H-IV [facility] Nicotine (Nicoderm Patch -) 14 mg TD DAILY [facility] Last Admin: 06/03/16 09:43 Dose: 14 mg Oseltamivir Phosphate (Tamiflu Oral Suspension -) 75 mg PO BID [facility] Stop: 06/06/16 10:01 Last Admin: 06/03/16 09:45 Dose: 75 mg Pantoprazole Sodium (Protonix 40mg Ivpb (Pre-Docked)) 40 mg IVPB DAILY [facility] Last Admin: 06/03/16 09:45 Dose: 40 mg Verapamil HCl (Calan Sr -) 120 mg PO DAILY [facility] Last Admin: 06/03/16 11:45 Dose: 120 mg - Objective Vital Signs: Vital Signs Temperature 98.2 F 06/03/16 18:00 Pulse Rate 89 06/03/16 18:00 Respiratory Rate 22 06/03/16 18:00 Blood Pressure 165/62 06/03/16 18:00 O2 Sat by Pulse Oximetry (%) 100 06/03/16 18:51 Constitutional: Yes: No Distress HENT: Yes: Atraumatic Neck: Yes: Supple Cardiovascular: Yes: Regular Rate and Rhythm Respiratory: Yes: CTA Bilaterally Gastrointestinal: Yes: Normal Bowel Sounds Extremities: Yes: WNL Neurological: Yes: Alert, Oriented Labs: CBC, BMP 06/03/16 07:45 06/03/16 07:45 INR, PTT INR 0.96 (0.82-1.09) 06/02/16 05:05 Problem List - Problems (1) Respiratory failure Code(s): J96.90 - RESPIRATORY FAILURE, UNSP, UNSP W HYPOXIA OR HYPERCAPNIA Qualifiers: Chronicity: acute Respiratory failure complication: hypoxia and hypercapnia Qualified Code(s): J96.01 - Acute respiratory failure with hypoxia (2) Chronic respiratory failure with hypoxia Code(s): J96.11 - CHRONIC RESPIRATORY FAILURE WITH HYPOXIA (3) CAD (coronary artery disease) Code(s): I25.10 - ATHSCL HEART DISEASE OF [place] CORONARY ARTERY W/O ANG PCTRS (4) COPD (chronic obstructive pulmonary disease) Code(s): J44.9 - CHRONIC OBSTRUCTIVE PULMONARY DISEASE, UNSPECIFIED (5) Chronic diastolic CHF (congestive heart failure) Code(s): I50.32 - CHRONIC DIASTOLIC (CONGESTIVE) HEART FAILURE (6) HLD (hyperlipidemia) Code(s): E78.5 - HYPERLIPIDEMIA, UNSPECIFIED Qualifiers: Hyperlipidemia type: unspecified Qualified Code(s): E78.5 - Hyperlipidemia, unspecified (7) HTN (hypertension) Code(s): I10 - ESSENTIAL (PRIMARY) HYPERTENSION Qualifiers: Hypertension type: essential hypertension Qualified Code(s): I10 - Essential (primary) hypertension (8) History of cigarette smoking Code(s): Z87.891 - PERSONAL HISTORY OF NICOTINE DEPENDENCE (9) Influenza Code(s): J11.1 - FLU DUE TO UNIDENTIFIED INFLUENZA VIRUS W OTH RESP MANIFEST Assessment/Plan 1.+Influenza on tamiflu 2.Acute respiratory failure on bipap iv steroids abx duo nebs 3.Worsening anemia 4.NSTEMI 5.History breast cancer, lung mass with negative bx 6.COPD, chronic with chronic hypoxemia 7.chf STABLE CC 30 MIN
[2016-06-03] MEDS: ATORVASTATIN CA 80 MG TABLET (FP) PO SCH (21:56)
[2016-06-03] MEDS ORDERED: VERAPAMIL HCL 40 MG TABLET (FP) PO ONE (23:24)
[2016-06-04] MEDS: ALBUTEROL SO4 2.5/IPRATROPIUM 0.5 INH SOL 3 ML VIAL.NEB. NEB SCH ×4 (00:05→17:47)
[2016-06-04] MEDS: methylPREDNISolone NA SUCC 40 MG/1 ML VIAL IVPB SCH ×3 (01:13→17:06)
[2016-06-04] MEDS: PIPERACILLIN/TAZOB 3.375 GM 50 ML IVPB SCH ×3 (01:15→17:06)
[2016-06-04] MEDS: ACETAMINOPHEN 325 MG TABLET (FP) PO PRN (02:30)
[2016-06-04] MEDS ORDERED: ACETAMINOPHEN 325 MG TABLET (FP) ONE (02:32)
[2016-06-04] MEDS ORDERED: PT OWN MED DRAWER 7, Y5N ONE ×3 (05:18→10:48)
[2016-06-04] MEDS: VERAPAMIL HCL 120 MG E.R. TABLET PO SCH ×2 (05:30→10:35)
[2016-06-04 06:17] LABS: MCH 22.3 pg (25.7-33.7); MEAN CELL VOLUME 71.9 fl (80-96); MEAN PLT VOLUME 8.9 fl (7.5-11.1); PLATELET COUNT 183 K/MM3 (134-434); RDW 22.9 % (11.6-15.6)
[2016-06-04 06:21] LABS: ALBUMIN 2.2 g/dl (3.4-5.0); ALK PHOS 62 U/L (45-117); ANION GAP 5 (8-16); BILIRUBIN,TOTAL 0.4 mg/dL (0.2-1.0); CALCIUM 8.9 mg/dL (8.5-10.1); CO2 34 mmol/L (21-32); CREATININE 0.6 mg/dL (0.55-1.02); GLUCOSE,RANDOM 126 mg/dL (74-106); SGOT/AST 85 U/L (15-37); SGPT/ALT 64 U/L (12-78); TOT PROT 5.4 g/dl (6.4-8.2)
[2016-06-04] MEDS ORDERED: MIDAZOLAM HCL 2 MG/2 ML SINGLE DOSE VIAL IVPUSH ONE ×2 (06:29→07:40)
[2016-06-04] MEDS ORDERED: ROCURONIUM BROMIDE 50 MG/5 ML VIAL IVPUSH ONE (06:29)
[2016-06-04] MEDS ORDERED: PROPOFOL 100 ML ONE (06:35)
[2016-06-04] MEDS ORDERED: MIDAZOLAM HCL 2 MG/2 ML SINGLE DOSE VIAL ONE (06:35)
[2016-06-04] MEDS: PROPOFOL 100 ML IVPB SCH ×2 (07:15→14:04)
[2016-06-04] MEDS: INSULIN SLIDING SCALE (NOVOLOG) 1 VIAL SQ SCH ×3 (07:35→17:05)
--- NOTE | 2016-06-04 07:35 | PN ---
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 (short form) - Note 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: SUBJECTIVE: Patient seen and examined in the ICU. Reintubated this morning for WOB Current Medications Acetaminophen (Tylenol -) 650 mg PO Q4H PRN PRN Reason: FEVER OR PAIN Albuterol Sulfate (Ventolin 0.083% Nebulizer Soln -) 1 amp NEB Q4H PRN PRN Reason: SHORT OF BREATH/WHEEZING Last Admin: 06/02/16 10:20 Dose: 1 amp Albuterol/Ipratropium (Duoneb -) 1 amp NEB QIDR [facility] Last Admin: 06/04/16 07:03 Dose: 1 amp Aspirin (Asa -) 81 mg NGT DAILY [facility] Last Admin: 06/03/16 09:47 Dose: 81 mg Atorvastatin Calcium (Lipitor -) 80 mg PO HS [facility] Last Admin: 06/03/16 21:56 Dose: 80 mg Docusate Sodium (Colace -) 100 mg PO DAILY [facility] Last Admin: 06/03/16 09:44 Dose: 100 mg Enoxaparin Sodium (Lovenox -) 40 mg SQ DAILY [facility] Last Admin: 06/03/16 09:45 Dose: 40 mg Azithromycin 250 mg/ Dextrose 250 mls @ 250 mls/hr IVPB DAILY@1800 [facility] Last Admin: 06/03/16 17:13 Dose: 250 mls/hr Piperacillin Sod/Tazobactam Sod (Zosyn 3.375gm Ivpb (Pre-Docked)) 50 mls @ 100 mls/hr IVPB Q8H-IV [facility] PRN Reason: Protocol Last Admin: 06/04/16 01:15 Dose: 100 mls/hr Fentanyl 500 mcg/ Dextrose 100 mls @ 10 mls/hr IJ TITR [facility] PRN Reason: 50 MCG/HR Stop: 06/05/16 06:59 Insulin Aspart (Novolog Vial Sliding Scale -) 1 vial SQ TIDAC [facility] PRN Reason: Protocol Last Admin: 06/03/16 16:34 Dose: 1 unit Methylprednisolone Sodium Succinate (Solu-Medrol -) 40 mg IVPB Q8H-IV [facility] Last Admin: 06/04/16 01:13 Dose: 40 mg Nicotine (Nicoderm Patch -) 14 mg TD DAILY [facility] Last Admin: 06/03/16 09:43 Dose: 14 mg Oseltamivir Phosphate (Tamiflu Oral Suspension -) 75 mg PO BID [facility] Stop: 06/06/16 10:01 Last Admin: 06/03/16 21:57 Dose: 75 mg Pantoprazole Sodium (Protonix 40mg Ivpb (Pre-Docked)) 40 mg IVPB DAILY [facility] Last Admin: 06/03/16 09:45 Dose: 40 mg Verapamil HCl (Calan Sr -) 120 mg PO DAILY [facility] Last Admin: 06/03/16 11:45 Dose: 120 mg Gen: Intubated, sedated Heart: tachycardic, regular Lung: scattered rhonchi, distant breath sounds Abd: soft, nontender Ext: no edema CBC, BMP 06/04/16 05:40 06/04/16 05:40 ASSESSMENT AND PLAN: Acute on Chronic Hypoxic and Hypercapneic Respiratory Failure Influenza A Acute COPD Exacerbation CAD +Troponins/Acute NSTEMI Lactic Acidosis h/o Breast Ca Lung Nodules with recent biopsy showing necrotizing granulomas Smoker - full vent support, goal normal pH and pPlat <30 - continue tamiflu - Empiric ABX per ID - inhaled bronchodilators - Medrol taper - O2 to keep SpO2 >90% - monitor ABG - DVT/GI prophylaxis Hussein Reid ACNP CCTime 35"
[2016-06-04 07:36] LABS: ARTERIAL BLD GAS O2 SATURATION 94.5 % (90-98.9); ARTERIAL BLOOD GAS BASE EXCESS 5.5 meq/l (-2-2); ARTERIAL BLOOD GAS HCO3 31.7 meq/L (22-26); ARTERIAL BLOOD GAS PO2 74.8 mmHg (70-100); ARTERIAL BLOOD GAS pH 7.36 (7.35-7.45)
--- NOTE | 2016-06-04 07:40 | PROC ---
Intubation - Intubation Reason for Intubation: Respiratory Failure Time of Intubation: 06:30 Intubation Method: orotracheal Blade used: Mac Tube Size (cm): 7.5 Tube position @ lip (cm): 22 Tube position confirmed by: Direct visualization, CO2 detector, Breath sounds Breath Sounds after Intubation: equal Post Intubation Xray: Yes (ordered)
[2016-06-04 07:41] LABS: ALLENS TEST POSITIVE; ART PUNCT SITE RIGHT RADIAL; LPM/O2% 35; MECH. VENT. ESPRIT; PT. ON O2? YES; TYPE OF O2 OT; VENT RATE 14; VT/PRESS 400
[2016-06-04] MEDS: FENTANYL INJECTION 500 MCG in DEXTROSE 5%-WATER - 90 ML IJ SCH ×3 (07:45→21:39)
[2016-06-04] MEDS: ASPIRIN 81 MG CHEWABLE TABLETS NGT SCH (10:35)
[2016-06-04] MEDS: NICOTINE 14 MG/24 HOURS TOPICAL PATCH TD SCH (10:36)
[2016-06-04] MEDS: DOCUSATE SODIUM 100 MG CAPSULE (FP) PO SCH (10:36)
[2016-06-04] MEDS: ENOXAPARIN NA (PORCINE) 40 MG/0.4 ML DISP.SYRIN SQ SCH (10:36)
[2016-06-04] MEDS: OSELTAMIVIR PHOSPHATE 6 MG/1 ML - 60ML BOTTLE PO SCH ×2 (10:37→21:41)
[2016-06-04] MEDS: PANTOPRAZOLE SODIUM 40 MG/100 ML PRE-DOCKED IVPB SCH (10:37)
--- NOTE | 2016-06-04 13:30 | PN ---
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, Physician History of Present Illness: patient got reintubated because of sob struggling now intubated and sedated - Current Medication List Current Medications: Active Medications Acetaminophen (Tylenol -) 650 mg PO Q4H PRN PRN Reason: FEVER OR PAIN Last Admin: 06/04/16 02:30 Dose: 650 mg Albuterol Sulfate (Ventolin 0.083% Nebulizer Soln -) 1 amp NEB Q4H PRN PRN Reason: SHORT OF BREATH/WHEEZING Last Admin: 06/02/16 10:20 Dose: 1 amp Albuterol/Ipratropium (Duoneb -) 1 amp NEB QIDR [facility] Last Admin: 06/04/16 11:30 Dose: 1 amp Aspirin (Asa -) 81 mg NGT DAILY [facility] Last Admin: 06/04/16 10:35 Dose: 81 mg Atorvastatin Calcium (Lipitor -) 80 mg PO HS [facility] Last Admin: 06/03/16 21:56 Dose: 80 mg Docusate Sodium (Colace -) 100 mg PO DAILY [facility] Last Admin: 06/04/16 10:36 Dose: Not Given Enoxaparin Sodium (Lovenox -) 40 mg SQ DAILY [facility] Last Admin: 06/04/16 10:36 Dose: 40 mg Azithromycin 250 mg/ Dextrose 250 mls @ 250 mls/hr IVPB DAILY@1800 [facility] Last Admin: 06/03/16 17:13 Dose: 250 mls/hr Piperacillin Sod/Tazobactam Sod (Zosyn 3.375gm Ivpb (Pre-Docked)) 50 mls @ 100 mls/hr IVPB Q8H-IV [facility] PRN Reason: Protocol Last Admin: 06/04/16 10:37 Dose: 100 mls/hr Fentanyl 500 mcg/ Dextrose 100 mls @ 10 mls/hr IJ TITR [facility] PRN Reason: 50 MCG/HR Stop: 06/05/16 06:59 Last Titration: 06/04/16 08:35 Dose: 75 mcg/hr Propofol (Diprivan -) 100 mls @ 3.592 mls/hr IVPB TITR [facility]; 10 MCG/KG/MIN PRN Reason: Protocol Last Titration: 06/04/16 08:34 Dose: 30 mcg/kg/min Insulin Aspart (Novolog Vial Sliding Scale -) 1 vial SQ TIDAC [facility] PRN Reason: Protocol Last Admin: 06/04/16 07:35 Dose: 1 unit Methylprednisolone Sodium Succinate (Solu-Medrol -) 40 mg IVPB Q8H-IV [facility] Last Admin: 06/04/16 10:37 Dose: 40 mg Nicotine (Nicoderm Patch -) 14 mg TD DAILY [facility] Last Admin: 06/04/16 10:36 Dose: 14 mg Oseltamivir Phosphate (Tamiflu Oral Suspension -) 75 mg PO BID [facility] Stop: 06/06/16 10:01 Last Admin: 06/04/16 10:37 Dose: 75 mg Pantoprazole Sodium (Protonix 40mg Ivpb (Pre-Docked)) 40 mg IVPB DAILY [facility] Last Admin: 06/04/16 10:37 Dose: 40 mg Verapamil HCl (Calan Sr -) 120 mg PO DAILY [facility] Last Admin: 06/04/16 10:35 Dose: Not Given - Objective Vital Signs: Vital Signs Temperature 98.4 F 06/04/16 10:00 Pulse Rate 73 06/04/16 10:00 Respiratory Rate 14 06/04/16 13:02 Blood Pressure 131/50 06/04/16 10:00 O2 Sat by Pulse Oximetry (%) 95 06/04/16 08:27 Constitutional: Yes: Other Cardiovascular: Yes: Regular Rate and Rhythm Respiratory: Yes: Regular, Intubated, Mechanically Ventilated Gastrointestinal: Yes: Normal Bowel Sounds, Soft Musculoskeletal: Yes: WNL Extremities: Yes: WNL Neurological: Yes: Other Psychiatric: Yes: Other Labs: CBC, BMP 06/04/16 05:40 06/04/16 05:40 INR, PTT INR 0.96 (0.82-1.09) 06/02/16 05:05 - ....Imaging Chest X-ray: Report Reviewed, Image Reviewed Assessment/Plan Problem List - Problems (1) Respiratory failure Code(s): J96.90 - RESPIRATORY FAILURE, UNSP, UNSP W HYPOXIA OR HYPERCAPNIA Qualifiers: Chronicity: acute Respiratory failure complication: hypoxia and hypercapnia Qualified Code(s): J96.01 - Acute respiratory failure with hypoxia (2) Chronic respiratory failure with hypoxia Code(s): J96.11 - CHRONIC RESPIRATORY FAILURE WITH HYPOXIA (3) CAD (coronary artery disease) Code(s): I25.10 - ATHSCL HEART DISEASE OF [place] CORONARY ARTERY W/O ANG PCTRS (4) COPD (chronic obstructive pulmonary disease) Assessment/Plan: intubated Code(s): J44.9 - CHRONIC OBSTRUCTIVE PULMONARY DISEASE, UNSPECIFIED (5) Chronic diastolic CHF (congestive heart failure) Code(s): I50.32 - CHRONIC DIASTOLIC (CONGESTIVE) HEART FAILURE (6) HLD (hyperlipidemia) Code(s): E78.5 - HYPERLIPIDEMIA, UNSPECIFIED Qualifiers: Hyperlipidemia type: unspecified Qualified Code(s): E78.5 - Hyperlipidemia, unspecified (7) HTN (hypertension) Code(s): I10 - ESSENTIAL (PRIMARY) HYPERTENSION Qualifiers: Hypertension type: essential hypertension Qualified Code(s): I10 - Essential (primary) hypertension (8) History of cigarette smoking Code(s): Z87.891 - PERSONAL HISTORY OF NICOTINE DEPENDENCE +Troponins/Acute NSTEMI Lactic Acidosis h/o Breast Ca Lung Nodules with recent biopsy showing necrotizing granulomas Smoker patient having purulent sputum plan await for sputum cx continue abx i am going to add vanco nutrition resp support rest as per icu mgmt incentive byron cc time 40 min
[2016-06-04] MEDS: VANCOMYCIN 1 GRAM (PRE-DOCKED) 250 ML IVPB SCH (14:25)
--- NOTE | 2016-06-04 16:59 | PN ---
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, Physician Chief Complaint: Pt is intubated; on Propofol. History of Present Illness: The patient is a 75 year old female, with a significant past medical history of hypertension, hyperlipidemia, chronic bronchitis, COPD and left breast CA s/p radiation therapy, who presents to the emergency department via EMS intubated in respiratory arrest. This patient was most recently seen in this ED on 2016 for shortness of breath and chest pain, was admitted and discharged 3 days ago (05/28/2016). EMS reports that this afternoon, the patient was feeling short of breath and initiated EMS herself from home. EMS reports that upon arrival to the scene, the patient was wheezing with rhonchi and was hypoxic to the 80s. She was subsequently given nebs, steroids, mags and was put on CPAP. She then began to deteriorate with altered mental status so she was intubated with etomidate and succinylcholine. The patient arrives to the ED intubated. Allergies: None reported. Past Surgical History: Right Foot Surgery. Social History: Current smoker. Denies alcohol or drug use. Cash Specialist: Dr. Kevin - Current Medication List Current Medications: Active Medications Acetaminophen (Tylenol -) 650 mg PO Q4H PRN PRN Reason: FEVER OR PAIN Last Admin: 06/04/16 02:30 Dose: 650 mg Albuterol Sulfate (Ventolin 0.083% Nebulizer Soln -) 1 amp NEB Q4H PRN PRN Reason: SHORT OF BREATH/WHEEZING Last Admin: 06/02/16 10:20 Dose: 1 amp Albuterol/Ipratropium (Duoneb -) 1 amp NEB QIDR [facility] Last Admin: 06/04/16 11:30 Dose: 1 amp Aspirin (Asa -) 81 mg NGT DAILY [facility] Last Admin: 06/04/16 10:35 Dose: 81 mg Atorvastatin Calcium (Lipitor -) 80 mg PO HS [facility] Last Admin: 06/03/16 21:56 Dose: 80 mg Docusate Sodium (Colace -) 100 mg PO DAILY [facility] Last Admin: 06/04/16 10:36 Dose: Not Given Enoxaparin Sodium (Lovenox -) 40 mg SQ DAILY [facility] Last Admin: 06/04/16 10:36 Dose: 40 mg Azithromycin 250 mg/ Dextrose 250 mls @ 250 mls/hr IVPB DAILY@1800 [facility] Last Admin: 06/03/16 17:13 Dose: 250 mls/hr Piperacillin Sod/Tazobactam Sod (Zosyn 3.375gm Ivpb (Pre-Docked)) 50 mls @ 100 mls/hr IVPB Q8H-IV [facility] PRN Reason: Protocol Last Admin: 06/04/16 10:37 Dose: 100 mls/hr Fentanyl 500 mcg/ Dextrose 100 mls @ 10 mls/hr IJ TITR [facility] PRN Reason: 50 MCG/HR Stop: 06/05/16 06:59 Last Admin: 06/04/16 14:21 Dose: 20 mls/hr Propofol (Diprivan -) 100 mls @ 3.592 mls/hr IVPB TITR [facility]; 10 MCG/KG/MIN PRN Reason: Protocol Last Titration: 06/04/16 16:53 Dose: 15 mcg/kg/min Vancomycin HCl (Vancomycin (Pre-Docked)) 250 mls @ 166.667 mls/hr IVPB DAILY@ 1400 [facility] PRN Reason: Protocol Last Admin: 06/04/16 14:25 Dose: 166.667 mls/hr Insulin Aspart (Novolog Vial Sliding Scale -) 1 vial SQ TIDAC [facility] PRN Reason: Protocol Last Admin: 06/04/16 12:30 Dose: 1 unit Methylprednisolone Sodium Succinate (Solu-Medrol -) 40 mg IVPB Q8H-IV [facility] Last Admin: 06/04/16 10:37 Dose: 40 mg Nicotine (Nicoderm Patch -) 14 mg TD DAILY [facility] Last Admin: 06/04/16 10:36 Dose: 14 mg Oseltamivir Phosphate (Tamiflu Oral Suspension -) 75 mg PO BID [facility] Stop: 06/06/16 10:01 Last Admin: 06/04/16 10:37 Dose: 75 mg Pantoprazole Sodium (Protonix 40mg Ivpb (Pre-Docked)) 40 mg IVPB DAILY [facility] Last Admin: 06/04/16 10:37 Dose: 40 mg Verapamil HCl (Calan Sr -) 120 mg PO DAILY [facility] Last Admin: 06/04/16 10:35 Dose: Not Given - Objective Vital Signs: Vital Signs Temperature 97.6 F 06/04/16 16:54 Pulse Rate 44 L 06/04/16 16:54 Respiratory Rate 14 06/04/16 16:54 Blood Pressure 164/65 06/04/16 16:54 O2 Sat by Pulse Oximetry (%) 99 06/04/16 16:30 Constitutional: Yes: Other Eyes: Yes: WNL HENT: Yes: WNL Neck: Yes: Decreased ROM Cardiovascular: Yes: Bradycardia Respiratory: Yes: Diminished Gastrointestinal: Yes: Soft Genitourinary: No: Anuria Extremities: Yes: Cool Edema: No Peripheral Pulses WNL: Yes Neurological: Yes: Other (intubated; sedated) Labs: CBC, BMP 06/04/16 05:40 06/04/16 05:40 INR, PTT INR 0.96 (0.82-1.09) 06/02/16 05:05 - ....Imaging Ultrasound: Report Reviewed (ECHO: normal LVEF; mild ; +pulmonary HTN) EKG: Image Reviewed (NSR; incomplete RBBB) Problem List - Problems (1) Influenza Code(s): J11.1 - FLU DUE TO UNIDENTIFIED INFLUENZA VIRUS W OTH RESP MANIFEST (2) Respiratory failure Assessment/Plan: bronchodilators, steroid, O2, antibiotics; f/u with pulmonary and ID. Code(s): J96.90 - RESPIRATORY FAILURE, UNSP, UNSP W HYPOXIA OR HYPERCAPNIA Qualifiers: Chronicity: acute Respiratory failure complication: hypoxia and hypercapnia Qualified Code(s): J96.01 - Acute respiratory failure with hypoxia (3) Pulmonary hypertension Code(s): I27.2 - OTHER SECONDARY PULMONARY HYPERTENSION (4) Acute on chronic diastolic CHF (congestive heart failure) Assessment/Plan: now on enaloapril; f/u BP, BUN/Cr, electrolytes. Code(s): I50.33 - ACUTE ON CHRONIC DIASTOLIC (CONGESTIVE) HEART FAILURE (5) Breast CA Code(s): C50.919 - MALIGNANT NEOPLASM OF UNSP SITE OF UNSPECIFIED FEMALE BREAST Qualifiers: Laterality: unspecified laterality (6) COPD (chronic obstructive pulmonary disease) Code(s): J44.9 - CHRONIC OBSTRUCTIVE PULMONARY DISEASE, UNSPECIFIED (7) HLD (hyperlipidemia) Code(s): E78.5 - HYPERLIPIDEMIA, UNSPECIFIED Qualifiers: Hyperlipidemia type: unspecified Qualified Code(s): E78.5 - Hyperlipidemia, unspecified (8) HTN (hypertension) Assessment/Plan: Start enalapril 1.25 mg q6h IVPB. Code(s): I10 - ESSENTIAL (PRIMARY) HYPERTENSION Qualifiers: Hypertension type: essential hypertension Qualified Code(s): I10 - Essential (primary) hypertension (9) History of breast cancer Code(s): Z85.3 - PERSONAL HISTORY OF MALIGNANT NEOPLASM OF BREAST (10) History of cigarette smoking Assessment/Plan: continue nicottine patch. Code(s): Z87.891 - PERSONAL HISTORY OF NICOTINE DEPENDENCE (11) NSTEMI (non-ST elevated myocardial infarction) Assessment/Plan: On ASA, atorvastatin (LDL was 164 mg/dL); now on enalapril for HTN, NSTEMI. Consider coronary angiogram when stable. Code(s): I21.4 - NON-ST ELEVATION (NSTEMI) MYOCARDIAL INFARCTION (12) Bradycardia Assessment/Plan: Sinus bradycardia. Propafol held; f/u on telemetry. Code(s): R00.1 - BRADYCARDIA, UNSPECIFIED (13) Aortic stenosis Code(s): I35.0 - NONRHEUMATIC AORTIC (VALVE) STENOSIS
[2016-06-04] MEDS: ENALAPRILAT DIHYDRATE 1.25 MG/1 ML VIAL IVPB SCH ×2 (17:47→21:41)
[2016-06-04] MEDS: AZITHROMYCIN IVPB 250 MG in DEXTROSE 5%-WATER - 250 ML IVPB SCH (18:00)
--- NOTE | 2016-06-04 18:39 | PN ---
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, Physician History of Present Illness: intubated this am - - Current Medication List Current Medications: Active Medications Acetaminophen (Tylenol -) 650 mg PO Q4H PRN PRN Reason: FEVER OR PAIN Last Admin: 06/04/16 02:30 Dose: 650 mg Albuterol Sulfate (Ventolin 0.083% Nebulizer Soln -) 1 amp NEB Q4H PRN PRN Reason: SHORT OF BREATH/WHEEZING Last Admin: 06/02/16 10:20 Dose: 1 amp Albuterol/Ipratropium (Duoneb -) 1 amp NEB QIDR [facility] Last Admin: 06/04/16 17:47 Dose: 1 amp Aspirin (Asa -) 81 mg NGT DAILY [facility] Last Admin: 06/04/16 10:35 Dose: 81 mg Atorvastatin Calcium (Lipitor -) 80 mg PO HS [facility] Last Admin: 06/03/16 21:56 Dose: 80 mg Docusate Sodium (Colace -) 100 mg PO DAILY [facility] Last Admin: 06/04/16 10:36 Dose: Not Given Enalaprilat (Vasotec Injection -) 1.25 mg IVPB Q6H-IV [facility] Last Admin: 06/04/16 17:47 Dose: 1.25 mg Enoxaparin Sodium (Lovenox -) 40 mg SQ DAILY [facility] Last Admin: 06/04/16 10:36 Dose: 40 mg Azithromycin 250 mg/ Dextrose 250 mls @ 250 mls/hr IVPB DAILY@1800 [facility] Last Admin: 06/03/16 17:13 Dose: 250 mls/hr Piperacillin Sod/Tazobactam Sod (Zosyn 3.375gm Ivpb (Pre-Docked)) 50 mls @ 100 mls/hr IVPB Q8H-IV [facility] PRN Reason: Protocol Last Admin: 06/04/16 17:06 Dose: 100 mls/hr Fentanyl 500 mcg/ Dextrose 100 mls @ 10 mls/hr IJ TITR [facility] PRN Reason: 50 MCG/HR Stop: 06/05/16 06:59 Last Admin: 06/04/16 14:21 Dose: 20 mls/hr Propofol (Diprivan -) 100 mls @ 3.592 mls/hr IVPB TITR [facility]; 10 MCG/KG/MIN PRN Reason: Protocol Last Titration: 06/04/16 17:49 Dose: 5 mcg/kg/min Vancomycin HCl (Vancomycin (Pre-Docked)) 250 mls @ 166.667 mls/hr IVPB DAILY@ 1400 [facility] PRN Reason: Protocol Last Admin: 06/04/16 14:25 Dose: 166.667 mls/hr Insulin Aspart (Novolog Vial Sliding Scale -) 1 vial SQ TIDAC [facility] PRN Reason: Protocol Last Admin: 06/04/16 17:05 Dose: 2 unit Methylprednisolone Sodium Succinate (Solu-Medrol -) 40 mg IVPB Q8H-IV [facility] Last Admin: 06/04/16 17:06 Dose: 40 mg Nicotine (Nicoderm Patch -) 14 mg TD DAILY [facility] Last Admin: 06/04/16 10:36 Dose: 14 mg Oseltamivir Phosphate (Tamiflu Oral Suspension -) 75 mg PO BID [facility] Stop: 06/06/16 10:01 Last Admin: 06/04/16 10:37 Dose: 75 mg Pantoprazole Sodium (Protonix 40mg Ivpb (Pre-Docked)) 40 mg IVPB DAILY [facility] Last Admin: 06/04/16 10:37 Dose: 40 mg Verapamil HCl (Calan Sr -) 120 mg PO DAILY [facility] Last Admin: 06/04/16 10:35 Dose: Not Given - Objective Vital Signs: Vital Signs Temperature 97.6 F 06/04/16 16:54 Pulse Rate 42 L 06/04/16 17:49 Respiratory Rate 14 06/04/16 17:49 Blood Pressure 175/63 06/04/16 17:49 O2 Sat by Pulse Oximetry (%) 99 06/04/16 16:30 Constitutional: Yes: No Distress HENT: Yes: Atraumatic Neck: Yes: Supple Cardiovascular: Yes: Regular Rate and Rhythm Respiratory: Yes: CTA Bilaterally Gastrointestinal: Yes: Normal Bowel Sounds Extremities: Yes: WNL Neurological: Yes: Alert, Oriented Labs: CBC, BMP 06/04/16 05:40 06/04/16 05:40 INR, PTT INR 0.96 (0.82-1.09) 06/02/16 05:05 Problem List - Problems (1) Respiratory failure Code(s): J96.90 - RESPIRATORY FAILURE, UNSP, UNSP W HYPOXIA OR HYPERCAPNIA Qualifiers: Chronicity: acute Respiratory failure complication: hypoxia and hypercapnia Qualified Code(s): J96.01 - Acute respiratory failure with hypoxia (2) Chronic respiratory failure with hypoxia Code(s): J96.11 - CHRONIC RESPIRATORY FAILURE WITH HYPOXIA (3) CAD (coronary artery disease) Code(s): I25.10 - ATHSCL HEART DISEASE OF [place] CORONARY ARTERY W/O ANG PCTRS (4) COPD (chronic obstructive pulmonary disease) Code(s): J44.9 - CHRONIC OBSTRUCTIVE PULMONARY DISEASE, UNSPECIFIED (5) Chronic diastolic CHF (congestive heart failure) Code(s): I50.32 - CHRONIC DIASTOLIC (CONGESTIVE) HEART FAILURE (6) HLD (hyperlipidemia) Code(s): E78.5 - HYPERLIPIDEMIA, UNSPECIFIED Qualifiers: Hyperlipidemia type: unspecified Qualified Code(s): E78.5 - Hyperlipidemia, unspecified (7) HTN (hypertension) Code(s): I10 - ESSENTIAL (PRIMARY) HYPERTENSION Qualifiers: Hypertension type: essential hypertension Qualified Code(s): I10 - Essential (primary) hypertension (8) History of cigarette smoking Code(s): Z87.891 - PERSONAL HISTORY OF NICOTINE DEPENDENCE (9) Influenza Code(s): J11.1 - FLU DUE TO UNIDENTIFIED INFLUENZA VIRUS W OTH RESP MANIFEST Assessment/Plan 1.+Influenza on tamiflu...completed 2.Acute respiratory failure on bipap iv steroids abx duo nebs 3.Worsening anemia 4.NSTEMI 5.History breast cancer, lung mass with negative bx 6.COPD, chronic with chronic hypoxemia 7.chf STABLE CC 30 MIN
[2016-06-04] MEDS: ATORVASTATIN CA 80 MG TABLET (FP) PO SCH (21:41)
[2016-06-05] MEDS: ALBUTEROL SO4 2.5/IPRATROPIUM 0.5 INH SOL 3 ML VIAL.NEB. NEB SCH (00:08)
[2016-06-05] MEDS: methylPREDNISolone NA SUCC 40 MG/1 ML VIAL IVPB SCH ×3 (02:57→17:16)
[2016-06-05] MEDS: PIPERACILLIN/TAZOB 3.375 GM 50 ML IVPB SCH ×3 (02:57→17:16)
[2016-06-05] MEDS: ENALAPRILAT DIHYDRATE 1.25 MG/1 ML VIAL IVPB SCH ×4 (02:57→21:00)
[2016-06-05] MEDS: FENTANYL INJECTION 500 MCG in DEXTROSE 5%-WATER - 90 ML IJ SCH (05:07)
[2016-06-05 06:14] LABS: MCH 22.7 pg (25.7-33.7); MCHC 31.9 g/dl (32.0-36.0); MEAN CELL VOLUME 71.1 fl (80-96); MEAN PLT VOLUME 9.1 fl (7.5-11.1); PLATELET COUNT 172 K/MM3 (134-434); RDW 23.2 % (11.6-15.6); WHITE BLOOD COUNT 10.6 K/mm3 (4.0-10.0)
[2016-06-05 06:44] LABS: ANION GAP 6 (8-16); BILIRUBIN,TOTAL 0.5 mg/dL (0.2-1.0); CALCIUM 8.5 mg/dL (8.5-10.1); CO2 33 mmol/L (21-32); CREATININE 0.6 mg/dL (0.55-1.02); GLUCOSE,RANDOM 164 mg/dL (74-106); SGOT/AST 52 U/L (15-37); SGPT/ALT 47 U/L (12-78)
[2016-06-05 06:45] LABS: ALK PHOS 54 U/L (45-117)
[2016-06-05] MEDS: INSULIN SLIDING SCALE (NOVOLOG) 1 VIAL SQ SCH ×3 (06:51→18:42)
[2016-06-05] MEDS ORDERED: PT OWN MED DRAWER 7, Y5N ONE (09:09)
--- NOTE | 2016-06-05 09:18 | PN ---
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 (short form) - Note 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: Seen and examined in the ICU Re intubated for respiratory failure Failed SBT this AM 2/2 RR >30, Tv <200 bradycardic overnight with HTN completed azithro yesterday Current Medications Acetaminophen (Tylenol -) 650 mg PO Q4H PRN PRN Reason: FEVER OR PAIN Last Admin: 06/04/16 02:30 Dose: 650 mg Aspirin (Asa -) 81 mg NGT DAILY [facility] Last Admin: 06/04/16 10:35 Dose: 81 mg Atorvastatin Calcium (Lipitor -) 80 mg PO HS [facility] Last Admin: 06/04/16 21:41 Dose: 80 mg Docusate Sodium (Colace -) 100 mg PO DAILY [facility] Last Admin: 06/04/16 10:36 Dose: Not Given Enalaprilat (Vasotec Injection -) 1.25 mg IVPB Q6H-IV [facility] Last Admin: 06/05/16 02:57 Dose: 1.25 mg Enoxaparin Sodium (Lovenox -) 40 mg SQ DAILY [facility] Last Admin: 06/04/16 10:36 Dose: 40 mg Piperacillin Sod/Tazobactam Sod (Zosyn 3.375gm Ivpb (Pre-Docked)) 50 mls @ 100 mls/hr IVPB Q8H-IV [facility] PRN Reason: Protocol Last Admin: 06/05/16 02:57 Dose: 100 mls/hr Propofol (Diprivan -) 100 mls @ 3.592 mls/hr IVPB TITR [facility]; 10 MCG/KG/MIN PRN Reason: Protocol Last Titration: 06/04/16 17:49 Dose: 5 mcg/kg/min Vancomycin HCl (Vancomycin (Pre-Docked)) 250 mls @ 166.667 mls/hr IVPB DAILY@ 1400 [facility] PRN Reason: Protocol Last Admin: 06/04/16 14:25 Dose: 166.667 mls/hr Insulin Aspart (Novolog Vial Sliding Scale -) 1 vial SQ TIDAC [facility] PRN Reason: Protocol Last Admin: 06/05/16 06:51 Dose: 1 unit Methylprednisolone Sodium Succinate (Solu-Medrol -) 30 mg IVPB Q8H-IV [facility] Nicotine (Nicoderm Patch -) 14 mg TD DAILY [facility] Last Admin: 06/04/16 10:36 Dose: 14 mg Pantoprazole Sodium (Protonix 40mg Ivpb (Pre-Docked)) 40 mg IVPB DAILY [facility] Last Admin: 06/04/16 10:37 Dose: 40 mg Verapamil HCl (Calan Sr -) 120 mg PO DAILY [facility] Last Admin: 06/04/16 10:35 Dose: Not Given Vital Signs Period Temp Pulse Resp BP Sys/Rasheed Pulse Ox Last 24 Hr 97.5 F-98.7 F 40-73 14-20 131-199/49-80 99-100 Intake & Output 06/02/16 06/03/16 06/04/16 06/05/16 23:59 23:59 23:59 23:59 Intake Total 3046.2 1991 905 480 Output Total 3000 900 700 450 Balance 46.2 1091 205 30 Weight 59.4 kg 61.8 kg 59.874 kg 61 kg Exam: General: awake, alert and calm on mechanical ventilation HEENR: PERRL, no JVd CV: bradycardia Pulm: coarse crackles bilateral Abd: SNTND Ext: WWP, no edema Neuro: RASS 0, BROCK, following commands CBCD WBC 10.6 K/mm3 (4.0-10.0) H 06/05/16 05:20 RBC 4.09 M/mm3 (3.60-5.2) 06/05/16 05:20 Hgb 9.3 GM/dL (10.7-15.3) L 06/05/16 05:20 Hct 29.1 % (32.4-45.2) L 06/05/16 05:20 MCV 71.1 fl (80-96) L 06/05/16 05:20 MCHC 31.9 g/dl (32.0-36.0) L 06/05/16 05:20 RDW 23.2 % (11.6-15.6) H 06/05/16 05:20 Plt Count 172 K/MM3 (134-434) 06/05/16 05:20 MPV 9.1 fl (7.5-11.1) 06/05/16 05:20 CMP Sodium 141 mmol/L (136-145) 06/05/16 05:20 Potassium 4.2 mmol/L (3.5-5.1) 06/05/16 05:20 Chloride 102 mmol/L (98-107) 06/05/16 05:20 Carbon Dioxide 33 mmol/L (21-32) H 06/05/16 05:20 Anion Gap 6 (8-16) L 06/05/16 05:20 BUN 24 mg/dL (7-18) H 06/05/16 05:20 Creatinine 0.6 mg/dL (0.55-1.02) 06/05/16 05:20 Creat Clearance w eGFR > 60 (>60) 06/05/16 05:20 Random Glucose 164 mg/dL (74-106) H D 06/05/16 05:20 Calcium 8.5 mg/dL (8.5-10.1) 06/05/16 05:20 Total Bilirubin 0.5 mg/dL (0.2-1.0) D 06/05/16 05:20 AST 52 U/L (15-37) H D 06/05/16 05:20 ALT 47 U/L (12-78) D 06/05/16 05:20 Alkaline Phosphatase 54 U/L (45-117) 06/05/16 05:20 Total Protein 5.0 g/dl (6.4-8.2) L 06/05/16 05:20 Albumin 2.0 g/dl (3.4-5.0) L 06/05/16 05:20 CARDIAC ENZYMES Creatine Kinase 29 IU/L (26-192) 06/02/16 05:05 Troponin I 0.25 ng/ml (0.00-0.05) H 06/02/16 05:05 ABG Results ABG pH 7.36 (7.35-7.45) 06/04/16 07:30 ABG pCO2 at Pt Temp 58.0 mmHg (35-45) H 06/04/16 07:30 ABG pO2 at Pt Temp 74.8 mmHg (70-100) 06/04/16 07:30 ABG HCO3 31.7 meq/L (22-26) H 06/04/16 07:30 ABG O2 Sat (Measured) 94.5 % (90-98.9) 06/04/16 07:30 ABG O2 Content 13.0 % vol (15-22) L 06/04/16 07:30 ABG Base Excess 5.5 meq/l (-2-2) H 06/04/16 07:30 CXR: Lines and tubes in good position, large lung volumes, bilateral infiltrates Microbiology 06/04/16 07:10 Sputum - Endotrachea Suction/Ventilator Gram Stain - Final 05/30/16 23:30 Blood - Peripheral Venous Blood Culture - Preliminary NO GROWTH OBTAINED AFTER 96 HOURS, INCUBATION TO CONTINUE FOR 1 DAYS. 05/30/16 21:30 Blood - Peripheral Venous Blood Culture - Preliminary NO GROWTH OBTAINED AFTER 96 HOURS, INCUBATION TO CONTINUE FOR 1 DAYS. 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
[2016-06-05] MEDS: PANTOPRAZOLE SODIUM 40 MG/100 ML PRE-DOCKED IVPB SCH (09:19)
[2016-06-05] MEDS: ENOXAPARIN NA (PORCINE) 40 MG/0.4 ML DISP.SYRIN SQ SCH (09:26)
[2016-06-05] MEDS: NICOTINE 14 MG/24 HOURS TOPICAL PATCH TD SCH (09:26)
[2016-06-05] MEDS: VERAPAMIL HCL 120 MG E.R. TABLET PO SCH (09:27)
[2016-06-05] MEDS: DOCUSATE SODIUM 100 MG CAPSULE (FP) PO SCH (09:27)
[2016-06-05] MEDS: PROPOFOL 100 ML IVPB SCH (09:27)
[2016-06-05] MEDS: ASPIRIN 81 MG CHEWABLE TABLETS NGT SCH (09:27)
[2016-06-05] MEDS ORDERED: hydrALAZINE HCL 20 MG/ML VIAL IM SCH (09:30)
[2016-06-05] MEDS ORDERED: hydrALAZINE HCL 20 MG/ML VIAL ONE (11:15)
[2016-06-05] MEDS: hydrALAZINE HCL 20 MG/ML VIAL IVPUSH SCH ×3 (11:16→21:00)
--- NOTE | 2016-06-05 12:29 | PN ---
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, Physician Chief Complaint: Pt is intubated; no longer on Propofol; A&Ox3; denies chest pain. History of Present Illness: The patient is a 75 year old black female, with a significant past medical history of hypertension, hyperlipidemia, chronic bronchitis, COPD and left breast CA s/p radiation therapy, who presents to the emergency department via EMS intubated in respiratory arrest. This patient was most recently seen in this ED on 05/20/2016 for shortness of breath and chest pain, was admitted and discharged 3 days ago (05/28/2016). EMS reports that this afternoon, the patient was feeling short of breath and initiated EMS herself from home. EMS reports that upon arrival to the scene, the patient was wheezing with rhonchi and was hypoxic to the 80s. She was subsequently given nebs, steroids, mags and was put on CPAP. She then began to deteriorate with altered mental status so she was intubated with etomidate and succinylcholine. The patient arrives to the ED intubated. Allergies: None reported. Past Surgical History: Right Foot Surgery. Social History: Current smoker. Denies alcohol or drug use. Manager French: Dr. Kevin - Current Medication List Current Medications: Active Medications Acetaminophen (Tylenol -) 650 mg PO Q4H PRN PRN Reason: FEVER OR PAIN Last Admin: 06/04/16 02:30 Dose: 650 mg Aspirin (Asa -) 81 mg NGT DAILY [facility] Last Admin: 06/05/16 09:27 Dose: 81 mg Atorvastatin Calcium (Lipitor -) 80 mg PO HS [facility] Last Admin: 06/04/16 21:41 Dose: 80 mg Docusate Sodium (Colace -) 100 mg PO DAILY [facility] Last Admin: 06/05/16 09:27 Dose: Not Given Enalaprilat (Vasotec Injection -) 1.25 mg IVPB Q6H-IV [facility] Last Admin: 06/05/16 09:19 Dose: 1.25 mg Enoxaparin Sodium (Lovenox -) 40 mg SQ DAILY [facility] Last Admin: 06/05/16 09:26 Dose: 40 mg Hydralazine HCl (Apresoline Injection -) 10 mg IVPUSH TID [facility] Last Admin: 06/05/16 11:16 Dose: 10 mg Piperacillin Sod/Tazobactam Sod (Zosyn 3.375gm Ivpb (Pre-Docked)) 50 mls @ 100 mls/hr IVPB Q8H-IV [facility] PRN Reason: Protocol Last Admin: 06/05/16 09:36 Dose: 100 mls/hr Propofol (Diprivan -) 100 mls @ 3.592 mls/hr IVPB TITR [facility]; 10 MCG/KG/MIN PRN Reason: Protocol Last Admin: 06/05/16 09:27 Dose: Not Given Vancomycin HCl (Vancomycin (Pre-Docked)) 250 mls @ 166.667 mls/hr IVPB DAILY@ 1400 [facility] PRN Reason: Protocol Last Admin: 06/04/16 14:25 Dose: 166.667 mls/hr Insulin Aspart (Novolog Vial Sliding Scale -) 1 vial SQ TIDAC [facility] PRN Reason: Protocol Last Admin: 06/05/16 11:23 Dose: 1 unit Methylprednisolone Sodium Succinate (Solu-Medrol -) 30 mg IVPB Q8H-IV [facility] Last Admin: 06/05/16 09:30 Dose: 30 mg Nicotine (Nicoderm Patch -) 14 mg TD DAILY [facility] Last Admin: 06/05/16 09:26 Dose: Not Given Pantoprazole Sodium (Protonix 40mg Ivpb (Pre-Docked)) 40 mg IVPB DAILY [facility] Last Admin: 06/05/16 09:19 Dose: 40 mg Verapamil HCl (Calan Sr -) 120 mg PO DAILY [facility] Last Admin: 06/05/16 09:27 Dose: Not Given - Objective Vital Signs: Vital Signs Temperature 98 F 06/05/16 10:07 Pulse Rate 48 L 06/05/16 11:59 Respiratory Rate 17 06/05/16 11:58 Blood Pressure 188/50 06/05/16 11:00 O2 Sat by Pulse Oximetry (%) 100 06/05/16 11:59 Constitutional: Yes: Calm Eyes: Yes: WNL HENT: Yes: WNL Neck: Yes: Decreased ROM, Other (intubated) Cardiovascular: Yes: Bradycardia, Murmur (2/6 HARITHA, RSB-->base) Respiratory: Yes: Diminished Gastrointestinal: Yes: Soft ...Rectal Exam: Yes: Deferred Genitourinary: No: Anuria Musculoskeletal: Yes: Muscle Weakness Extremities: Yes: Cool Edema: Yes Edema: LLE: Trace, RLE: Trace Peripheral Pulses WNL: No Peripheral Pulses: Left Doralis Pedis: 1+, Right Dorsalis Pedis: 1+ Neurological: Yes: Alert, Oriented, Weakness Psychiatric: Yes: WNL, Alert, Oriented Labs: CBC, BMP 06/05/16 05:20 06/05/16 05:20 INR, PTT INR 0.96 (0.82-1.09) 06/02/16 05:05 - ....Imaging Chest X-ray: Image Reviewed Other: Image Reviewed (telemetry: NSR; periods of (mild) bradycardia, improved from yesterday) Problem List - Problems (1) Influenza Code(s): J11.1 - FLU DUE TO UNIDENTIFIED INFLUENZA VIRUS W OTH RESP MANIFEST (2) Respiratory failure Assessment/Plan: On bronchodilators, steroid, O2, antibiotics; f/u with pulmonary and ID. Code(s): J96.90 - RESPIRATORY FAILURE, UNSP, UNSP W HYPOXIA OR HYPERCAPNIA Qualifiers: Chronicity: acute Respiratory failure complication: hypoxia and hypercapnia Qualified Code(s): J96.01 - Acute respiratory failure with hypoxia (3) Pulmonary hypertension Code(s): I27.2 - OTHER SECONDARY PULMONARY HYPERTENSION (4) Acute on chronic diastolic CHF (congestive heart failure) Assessment/Plan: now on enalapril for HTN, CHF; f/u BP, BUN/Cr, electrolytes. TSH (and free T3) low 09/25; repeat levels. Code(s): I50.33 - ACUTE ON CHRONIC DIASTOLIC (CONGESTIVE) HEART FAILURE (5) Breast CA Code(s): C50.919 - MALIGNANT NEOPLASM OF UNSP SITE OF UNSPECIFIED FEMALE BREAST Qualifiers: Laterality: unspecified laterality (6) COPD (chronic obstructive pulmonary disease) Code(s): J44.9 - CHRONIC OBSTRUCTIVE PULMONARY DISEASE, UNSPECIFIED (7) HLD (hyperlipidemia) Code(s): E78.5 - HYPERLIPIDEMIA, UNSPECIFIED Qualifiers: Hyperlipidemia type: unspecified Qualified Code(s): E78.5 - Hyperlipidemia, unspecified (8) HTN (hypertension) Assessment/Plan: Started enalapril 1.25 mg q6h IVPB. Code(s): I10 - ESSENTIAL (PRIMARY) HYPERTENSION Qualifiers: Hypertension type: essential hypertension Qualified Code(s): I10 - Essential (primary) hypertension (9) History of breast cancer Code(s): Z85.3 - PERSONAL HISTORY OF MALIGNANT NEOPLASM OF BREAST (10) History of cigarette smoking Assessment/Plan: continue nicotine patch. Code(s): Z87.891 - PERSONAL HISTORY OF NICOTINE DEPENDENCE (11) NSTEMI (non-ST elevated myocardial infarction) Assessment/Plan: On ASA, atorvastatin (LDL was 164 mg/dL); now on enalapril for HTN, NSTEMI. Consider coronary angiogram when stable. Code(s): I21.4 - NON-ST ELEVATION (NSTEMI) MYOCARDIAL INFARCTION (12) Bradycardia Assessment/Plan: Sinus bradycardia. Propofol held-->improved HR. Code(s): R00.1 - BRADYCARDIA, UNSPECIFIED (13) Aortic stenosis Code(s): I35.0 - NONRHEUMATIC AORTIC (VALVE) STENOSIS
[2016-06-05] MEDS: FENTANYL INJECTION 500 MCG in DEXTROSE 5%-WATER - 90 ML IVPB SCH (12:30)
[2016-06-05] MEDS: VANCOMYCIN 1 GRAM (PRE-DOCKED) 250 ML IVPB SCH (13:51)
--- NOTE | 2016-06-05 13:53 | PN ---
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, Physician History of Present Illness: patient looking much better still intubated awake alert - Current Medication List Current Medications: Active Medications Acetaminophen (Tylenol -) 650 mg PO Q4H PRN PRN Reason: FEVER OR PAIN Last Admin: 06/04/16 02:30 Dose: 650 mg Aspirin (Asa -) 81 mg NGT DAILY [facility] Last Admin: 06/05/16 09:27 Dose: 81 mg Atorvastatin Calcium (Lipitor -) 80 mg PO HS [facility] Last Admin: 06/04/16 21:41 Dose: 80 mg Docusate Sodium (Colace -) 100 mg PO DAILY [facility] Last Admin: 06/05/16 09:27 Dose: Not Given Enalaprilat (Vasotec Injection -) 1.25 mg IVPB Q6H-IV [facility] Last Admin: 06/05/16 09:19 Dose: 1.25 mg Enoxaparin Sodium (Lovenox -) 40 mg SQ DAILY [facility] Last Admin: 06/05/16 09:26 Dose: 40 mg Hydralazine HCl (Apresoline Injection -) 10 mg IVPUSH TID [facility] Last Admin: 06/05/16 11:16 Dose: 10 mg Piperacillin Sod/Tazobactam Sod (Zosyn 3.375gm Ivpb (Pre-Docked)) 50 mls @ 100 mls/hr IVPB Q8H-IV [facility] PRN Reason: Protocol Last Admin: 06/05/16 09:36 Dose: 100 mls/hr Propofol (Diprivan -) 100 mls @ 3.592 mls/hr IVPB TITR [facility]; 10 MCG/KG/MIN PRN Reason: Protocol Last Admin: 06/05/16 09:27 Dose: Not Given Vancomycin HCl (Vancomycin (Pre-Docked)) 250 mls @ 166.667 mls/hr IVPB DAILY@ 1400 [facility] PRN Reason: Protocol Last Admin: 06/04/16 14:25 Dose: 166.667 mls/hr Insulin Aspart (Novolog Vial Sliding Scale -) 1 vial SQ TIDAC [facility] PRN Reason: Protocol Last Admin: 06/05/16 11:23 Dose: 1 unit Methylprednisolone Sodium Succinate (Solu-Medrol -) 30 mg IVPB Q8H-IV [facility] Last Admin: 06/05/16 09:30 Dose: 30 mg Nicotine (Nicoderm Patch -) 14 mg TD DAILY [facility] Last Admin: 06/05/16 09:26 Dose: Not Given Pantoprazole Sodium (Protonix 40mg Ivpb (Pre-Docked)) 40 mg IVPB DAILY [facility] Last Admin: 06/05/16 09:19 Dose: 40 mg Verapamil HCl (Calan Sr -) 120 mg PO DAILY [facility] Last Admin: 06/05/16 09:27 Dose: Not Given - Objective Vital Signs: Vital Signs Temperature 98 F 06/05/16 10:07 Pulse Rate 52 L 06/05/16 12:31 Respiratory Rate 18 06/05/16 13:50 Blood Pressure 160/40 06/05/16 12:31 O2 Sat by Pulse Oximetry (%) 100 06/05/16 11:59 Constitutional: Yes: No Distress, Calm HENT: Yes: Atraumatic Neck: Yes: Other (trach in place) Cardiovascular: Yes: Regular Rate and Rhythm Respiratory: Yes: Intubated, Mechanically Ventilated Gastrointestinal: Yes: Normal Bowel Sounds, Soft, Other (fed by og tube) Musculoskeletal: Yes: WNL Extremities: Yes: WNL Neurological: Yes: Alert Psychiatric: Yes: Alert Labs: CBC, BMP 06/05/16 05:20 06/05/16 05:20 INR, PTT INR 0.96 (0.82-1.09) 06/02/16 05:05 Assessment/Plan Problem List - Problems (1) Respiratory failure Code(s): J96.90 - RESPIRATORY FAILURE, UNSP, UNSP W HYPOXIA OR HYPERCAPNIA Qualifiers: Chronicity: acute Respiratory failure complication: hypoxia and hypercapnia Qualified Code(s): J96.01 - Acute respiratory failure with hypoxia (2) Chronic respiratory failure with hypoxia Code(s): J96.11 - CHRONIC RESPIRATORY FAILURE WITH HYPOXIA (3) CAD (coronary artery disease) Code(s): I25.10 - ATHSCL HEART DISEASE OF [place] CORONARY ARTERY W/O ANG PCTRS (4) COPD (chronic obstructive pulmonary disease) Assessment/Plan: intubated Code(s): J44.9 - CHRONIC OBSTRUCTIVE PULMONARY DISEASE, UNSPECIFIED (5) Chronic diastolic CHF (congestive heart failure) Code(s): I50.32 - CHRONIC DIASTOLIC (CONGESTIVE) HEART FAILURE (6) HLD (hyperlipidemia) Code(s): E78.5 - HYPERLIPIDEMIA, UNSPECIFIED Qualifiers: Hyperlipidemia type: unspecified Qualified Code(s): E78.5 - Hyperlipidemia, unspecified (7) HTN (hypertension) Code(s): I10 - ESSENTIAL (PRIMARY) HYPERTENSION Qualifiers: Hypertension type: essential hypertension Qualified Code(s): I10 - Essential (primary) hypertension (8) History of cigarette smoking Code(s): Z87.891 - PERSONAL HISTORY OF NICOTINE DEPENDENCE +Troponins/Acute NSTEMI Lactic Acidosis h/o Breast Ca Lung Nodules with recent biopsy showing necrotizing granulomas Smoker patient having purulent sputum wbc trending towards normal plan continue abx nutrition resp support rest as per icu mgmt incentive byron can d/c isolation cc time 40 min
[2016-06-05] MEDS ORDERED: FENTANYL INJECTION 500 MCG in DEXTROSE 5%-WATER - 90 ML IJ SCH (14:00)
--- NOTE | 2016-06-05 17:06 | PN ---
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, Physician History of Present Illness: intubated - Current Medication List Current Medications: Active Medications Acetaminophen (Tylenol -) 650 mg PO Q4H PRN PRN Reason: FEVER OR PAIN Last Admin: 06/04/16 02:30 Dose: 650 mg Aspirin (Asa -) 81 mg NGT DAILY [facility] Last Admin: 06/05/16 09:27 Dose: 81 mg Atorvastatin Calcium (Lipitor -) 80 mg PO HS [facility] Last Admin: 06/04/16 21:41 Dose: 80 mg Docusate Sodium (Colace -) 100 mg PO DAILY [facility] Last Admin: 06/05/16 09:27 Dose: Not Given Enalaprilat (Vasotec Injection -) 1.25 mg IVPB Q6H-IV [facility] Last Admin: 06/05/16 15:31 Dose: 1.25 mg Enoxaparin Sodium (Lovenox -) 40 mg SQ DAILY [facility] Last Admin: 06/05/16 09:26 Dose: 40 mg Hydralazine HCl (Apresoline Injection -) 10 mg IVPUSH TID [facility] Last Admin: 06/05/16 16:16 Dose: 10 mg Piperacillin Sod/Tazobactam Sod (Zosyn 3.375gm Ivpb (Pre-Docked)) 50 mls @ 100 mls/hr IVPB Q8H-IV [facility] PRN Reason: Protocol Last Admin: 06/05/16 09:36 Dose: 100 mls/hr Vancomycin HCl (Vancomycin (Pre-Docked)) 250 mls @ 166.667 mls/hr IVPB DAILY@ 1400 [facility] PRN Reason: Protocol Last Admin: 06/05/16 13:51 Dose: 166.667 mls/hr Fentanyl 500 mcg/ Dextrose 100 mls @ 15 mls/hr IVPB TITR [facility]; 75 MCG/HR PRN Reason: Protocol Last Titration: 06/05/16 15:33 Dose: 50 mcg/hr Insulin Aspart (Novolog Vial Sliding Scale -) 1 vial SQ TIDAC [facility] PRN Reason: Protocol Last Admin: 06/05/16 11:23 Dose: 1 unit Methylprednisolone Sodium Succinate (Solu-Medrol -) 30 mg IVPB Q8H-IV [facility] Last Admin: 06/05/16 09:30 Dose: 30 mg Nicotine (Nicoderm Patch -) 14 mg TD DAILY [facility] Last Admin: 06/05/16 09:26 Dose: Not Given Pantoprazole Sodium (Protonix 40mg Ivpb (Pre-Docked)) 40 mg IVPB DAILY [facility] Last Admin: 06/05/16 09:19 Dose: 40 mg Verapamil HCl (Calan Sr -) 120 mg PO DAILY [facility] Last Admin: 06/05/16 09:27 Dose: Not Given - Objective Vital Signs: Vital Signs Temperature 97.9 F 06/05/16 14:07 Pulse Rate 63 06/05/16 16:00 Respiratory Rate 14 06/05/16 16:46 Blood Pressure 135/46 06/05/16 16:00 O2 Sat by Pulse Oximetry (%) 100 06/05/16 14:12 Constitutional: Yes: No Distress HENT: Yes: Atraumatic Neck: Yes: Supple Cardiovascular: Yes: Regular Rate and Rhythm Respiratory: Yes: Rhonchi Gastrointestinal: Yes: Normal Bowel Sounds Extremities: Yes: WNL Neurological: Yes: Alert, Oriented Labs: CBC, BMP 06/05/16 05:20 06/05/16 05:20 INR, PTT INR 0.96 (0.82-1.09) 06/02/16 05:05 Problem List - Problems (1) Respiratory failure Code(s): J96.90 - RESPIRATORY FAILURE, UNSP, UNSP W HYPOXIA OR HYPERCAPNIA Qualifiers: Chronicity: acute Respiratory failure complication: hypoxia and hypercapnia Qualified Code(s): J96.01 - Acute respiratory failure with hypoxia (2) Chronic respiratory failure with hypoxia Code(s): J96.11 - CHRONIC RESPIRATORY FAILURE WITH HYPOXIA (3) CAD (coronary artery disease) Code(s): I25.10 - ATHSCL HEART DISEASE OF [place] CORONARY ARTERY W/O ANG PCTRS (4) COPD (chronic obstructive pulmonary disease) Code(s): J44.9 - CHRONIC OBSTRUCTIVE PULMONARY DISEASE, UNSPECIFIED (5) Chronic diastolic CHF (congestive heart failure) Code(s): I50.32 - CHRONIC DIASTOLIC (CONGESTIVE) HEART FAILURE (6) HLD (hyperlipidemia) Code(s): E78.5 - HYPERLIPIDEMIA, UNSPECIFIED Qualifiers: Hyperlipidemia type: unspecified Qualified Code(s): E78.5 - Hyperlipidemia, unspecified (7) HTN (hypertension) Code(s): I10 - ESSENTIAL (PRIMARY) HYPERTENSION Qualifiers: Hypertension type: essential hypertension Qualified Code(s): I10 - Essential (primary) hypertension (8) History of cigarette smoking Code(s): Z87.891 - PERSONAL HISTORY OF NICOTINE DEPENDENCE (9) Influenza Code(s): J11.1 - FLU DUE TO UNIDENTIFIED INFLUENZA VIRUS W OTH RESP MANIFEST Assessment/Plan 1.+Influenza treated 2.Acute respiratory failure intubated iv steroids abx duo nebs 3.Worsening anemia 4.NSTEMI 5.History breast cancer, lung mass with negative bx 6.COPD, chronic with chronic hypoxemia 7.chf STABLE CC 30 MIN
[2016-06-05] MEDS: ATORVASTATIN CA 80 MG TABLET (FP) PO SCH (21:00)
[2016-06-06] MEDS ORDERED: HEMOQUE TEST 1 EACH EACH ONE ×2 (01:15→12:45)
[2016-06-06] MEDS: PIPERACILLIN/TAZOB 3.375 GM 50 ML IVPB SCH ×3 (02:00→17:24)
[2016-06-06] MEDS: ENALAPRILAT DIHYDRATE 1.25 MG/1 ML VIAL IVPB SCH ×4 (03:00→21:00)
[2016-06-06] MEDS: methylPREDNISolone NA SUCC 40 MG/1 ML VIAL IVPB SCH ×3 (03:00→17:24)
[2016-06-06 06:03] LABS: MCH 22.5 pg (25.7-33.7); MCHC 31.3 g/dl (32.0-36.0); MEAN PLT VOLUME 9.2 fl (7.5-11.1); PLATELET COUNT 198 K/MM3 (134-434); RDW 24.1 % (11.6-15.6); WHITE BLOOD COUNT 11.9 K/mm3 (4.0-10.0)
[2016-06-06 06:27] LABS: CALCIUM 8.6 mg/dL (8.5-10.1); CREATININE 0.6 mg/dL (0.55-1.02); MAGNESIUM 2.1 mg/dL (1.8-2.4); PHOSPHOROUS 2.8 mg/dL (2.5-4.9)
[2016-06-06 06:31] LABS: INR 0.98 (0.82-1.09); PROTHROMBIN TIME (PATIENT) 10.8 SEC (9.98-11.88)
[2016-06-06 06:33] LABS: ACTIVATED PTT 28.6 SECONDS (26.9-34.4)
[2016-06-06] MEDS: INSULIN SLIDING SCALE (NOVOLOG) 1 VIAL SQ SCH ×3 (06:39→18:44)
[2016-06-06] MEDS: hydrALAZINE HCL 20 MG/ML VIAL IVPUSH SCH ×3 (06:42→21:00)
[2016-06-06 07:11] LABS: ARTERIAL BLD GAS O2 SATURATION 96.1 % (90-98.9); ARTERIAL BLOOD GAS BASE EXCESS 6.3 meq/l (-2-2); ARTERIAL BLOOD GAS HCO3 30.3 meq/L (22-26); ARTERIAL BLOOD GAS PO2 78.1 mmHg (70-100)
[2016-06-06 07:12] LABS: ALLENS TEST POSITIVE; ART PUNCT SITE RIGHT RADIAL; ARTERIAL BLOOD GAS pH 7.47 (7.35-7.45); LPM/O2% 30; MECH. VENT. YES; PT. ON O2? YES; TYPE OF O2 VENT; VENT RATE 14; VT/PRESS 400
[2016-06-06 09:28] LABS: THYROID STIMULATING HORMONE 0.59 uIU/ml (0.358-3.74)
[2016-06-06] MEDS: VERAPAMIL HCL 120 MG E.R. TABLET PO SCH (09:35)
[2016-06-06] MEDS ORDERED: PT OWN MED DRAWER 7, Y5N ONE (09:37)
[2016-06-06] MEDS: NICOTINE 14 MG/24 HOURS TOPICAL PATCH TD SCH (09:44)
[2016-06-06] MEDS: PANTOPRAZOLE SODIUM 40 MG/100 ML PRE-DOCKED IVPB SCH (09:46)
[2016-06-06] MEDS: ASPIRIN 81 MG CHEWABLE TABLETS NGT SCH (09:47)
[2016-06-06] MEDS: DOCUSATE SODIUM 100 MG CAPSULE (FP) PO SCH (09:48)
[2016-06-06] MEDS: ENOXAPARIN NA (PORCINE) 40 MG/0.4 ML DISP.SYRIN SQ SCH (09:51)
[2016-06-06 10:37] LABS: ANISOCYTOSIS 2+; HYPOCHROMIA 4+; MICROCYTOSIS 1+; OVALOCYTES 1+; POIKILOCYTOSIS 1+; SPHEROCYTE 1+; TARGET CELLS 2+; TEAR DROP CELLS 1+
--- NOTE | 2016-06-06 12:07 | PN ---
Teaching Attending Note Name of Resident: Conrad Pagan ATTENDING PHYSICIAN STATEMENT I saw and evaluated the patient. I reviewed the resident's note and discussed the case with the resident. I agree with the resident's findings and plan as documented. SUBJECTIVE: Patient seen and examined in the ICU. Remains intubated and awake and responsive. Has not been tolerating CPAP trials for more than a few minutes. CXR: ETT in place (allowing for difference in technique, I do not see a significant change). Intake & Output 06/03/16 06/04/16 06/05/16 06/06/16 23:59 23:59 23:59 23:59 Intake Total 0842 085 4860 680 Output Total 900 700 850 500 Balance 7799 977 4849 180 Weight 136 lb 3.931 oz 132 lb 134 lb 7.712 oz 131 lb 9 oz Last Vital Signs Temp Pulse Resp BP Pulse Ox 97.8 F 73 20 122/60 95 06/06/16 02:00 06/06/16 11:12 06/06/16 09:15 06/06/16 09:00 06/06/16 11:12 Active Medications Acetaminophen (Tylenol -) 650 mg PO Q4H PRN PRN Reason: FEVER OR PAIN Last Admin: 06/04/16 02:30 Dose: 650 mg Aspirin (Asa -) 81 mg NGT DAILY [facility] Last Admin: 06/06/16 09:47 Dose: 81 mg Atorvastatin Calcium (Lipitor -) 80 mg PO HS [facility] Last Admin: 06/05/16 21:00 Dose: 80 mg Docusate Sodium (Colace -) 100 mg PO DAILY [facility] Last Admin: 06/06/16 09:48 Dose: Not Given Enalaprilat (Vasotec Injection -) 1.25 mg IVPB Q6H-IV [facility] Last Admin: 06/06/16 09:41 Dose: 1.25 mg Enoxaparin Sodium (Lovenox -) 40 mg SQ DAILY [facility] Last Admin: 06/06/16 09:51 Dose: 40 mg Hydralazine HCl (Apresoline Injection -) 10 mg IVPUSH TID [facility] Last Admin: 06/06/16 06:42 Dose: 10 mg Piperacillin Sod/Tazobactam Sod (Zosyn 3.375gm Ivpb (Pre-Docked)) 50 mls @ 100 mls/hr IVPB Q8H-IV [facility] PRN Reason: Protocol Last Admin: 06/06/16 09:47 Dose: 100 mls/hr Vancomycin HCl (Vancomycin (Pre-Docked)) 250 mls @ 166.667 mls/hr IVPB DAILY@ 1400 [facility] PRN Reason: Protocol Last Admin: 06/05/16 13:51 Dose: 166.667 mls/hr Fentanyl 500 mcg/ Dextrose 100 mls @ 15 mls/hr IVPB TITR [facility]; 75 MCG/HR PRN Reason: Protocol Last Titration: 06/06/16 09:34 Dose: 0 mcg/hr Insulin Aspart (Novolog Vial Sliding Scale -) 1 vial SQ TIDAC [facility] PRN Reason: Protocol Last Admin: 06/06/16 06:39 Dose: Not Given Methylprednisolone Sodium Succinate (Solu-Medrol -) 30 mg IVPB Q8H-IV [facility] Last Admin: 06/06/16 09:44 Dose: 30 mg Nicotine (Nicoderm Patch -) 14 mg TD DAILY [facility] Last Admin: 06/06/16 09:44 Dose: Not Given Pantoprazole Sodium (Protonix 40mg Ivpb (Pre-Docked)) 40 mg IVPB DAILY [facility] Last Admin: 06/06/16 09:46 Dose: 40 mg Verapamil HCl (Calan Sr -) 120 mg PO DAILY [facility] Last Admin: 06/06/16 09:35 Dose: Not Given Gen: Awake on AC Mode of vent Heart: regular Lung: scattered rhonchi, distant breath sounds Abd: soft, nontender Ext: no edema Laboratory Results - last 24 hr 05/30/16 06/05/16 06/05/16 17:00 05:43 11:22 WBC RBC Hgb Hct MCV MCHC RDW Plt Count MPV Hypochromic-Microcytic Poikilocytosis Anisocytosis Microcytosis Macrocytosis Spherocytes Target Cells Tear Drop Cells Ovalocytes Morphology Comment INR PTT (Actin FS) Puncture Site ABG pH ABG pCO2 at Pt Temp ABG pO2 at Pt Temp ABG HCO3 ABG O2 Sat (Measured) ABG O2 Content ABG Base Excess Rafi Test O2 Delivery Device Oxygen Flow Rate Vent Mode Vent Rate Mechanical Rate PEEP Pressure Support Vent Sodium Potassium Chloride Carbon Dioxide Anion Gap BUN Creatinine POC Glucometer 175.72207 192.55820 Random Glucose Calcium Phosphorus Magnesium TSH Blood Type A POSITIVE Antibody Screen Negative Crossmatch See Detail 06/05/16 06/06/16 06/06/16 18:25 05:05 05:05 WBC 11.9 H RBC 4.53 Hgb 10.2 L Hct 32.6 MCV 72.0 L MCHC 31.3 L RDW 24.1 H Plt Count 198 MPV 9.2 Hypochromic-Microcytic 4+ Poikilocytosis 1+ Anisocytosis 2+ Microcytosis 1+ Macrocytosis 1+ Spherocytes 1+ Target Cells 2+ Tear Drop Cells 1+ Ovalocytes 1+ Morphology Comment Slide scanned INR PTT (Actin FS) Puncture Site ABG pH ABG pCO2 at Pt Temp ABG pO2 at Pt Temp ABG HCO3 ABG O2 Sat (Measured) ABG O2 Content ABG Base Excess Rafi Test O2 Delivery Device Oxygen Flow Rate Vent Mode Vent Rate Mechanical Rate PEEP Pressure Support Vent Sodium 142 Potassium 4.1 Chloride 100 Carbon Dioxide 34 H Anion Gap 8 BUN 26 H Creatinine 0.6 POC Glucometer 186.16948 Random Glucose 215 H D Calcium 8.6 Phosphorus 2.8 Magnesium 2.1 TSH 0.59 D Blood Type Antibody Screen Crossmatch 06/06/16 06/06/16 06/06/16 05:05 07:05 07:36 WBC RBC Hgb Hct MCV MCHC RDW Plt Count MPV Hypochromic-Microcytic Poikilocytosis Anisocytosis Microcytosis Macrocytosis Spherocytes Target Cells Tear Drop Cells Ovalocytes Morphology Comment INR 0.98 PTT (Actin FS) 28.6 Puncture Site Right radial ABG pH 7.47 H ABG pCO2 at Pt Temp 42.6 D ABG pO2 at Pt Temp 78.1 ABG HCO3 30.3 H ABG O2 Sat (Measured) 96.1 ABG O2 Content 13.9 L ABG Base Excess 6.3 H Rafi Test Positive O2 Delivery Device Vent Oxygen Flow Rate 30 Vent Mode A/c Vent Rate 14 Mechanical Rate Yes PEEP 5.0 Pressure Support Vent 400 Sodium Potassium Chloride Carbon Dioxide Anion Gap BUN Creatinine POC Glucometer Random Glucose Calcium Phosphorus Magnesium TSH Cancelled Blood Type Antibody Screen Crossmatch ASSESSMENT AND PLAN: Acute on Chronic Hypoxic and Hypercapneic Respiratory Failure Influenza A Acute COPD Exacerbation CAD +Troponins/Acute NSTEMI Lactic Acidosis h/o Breast Ca 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
--- NOTE | 2016-06-06 12:40 | PN ---
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, Physician History of Present Illness: seen and examined today in nad. awake, alert, oriented. still intubated. acknowledges that she is still sob and feels she is not ready to be extubated. - Current Medication List Current Medications: Active Medications Acetaminophen (Tylenol -) 650 mg PO Q4H PRN PRN Reason: FEVER OR PAIN Last Admin: 06/04/16 02:30 Dose: 650 mg Aspirin (Asa -) 81 mg NGT DAILY [facility] Last Admin: 06/06/16 09:47 Dose: 81 mg Atorvastatin Calcium (Lipitor -) 80 mg PO HS [facility] Last Admin: 06/05/16 21:00 Dose: 80 mg Docusate Sodium (Colace -) 100 mg PO DAILY [facility] Last Admin: 06/06/16 09:48 Dose: Not Given Enalaprilat (Vasotec Injection -) 1.25 mg IVPB Q6H-IV [facility] Last Admin: 06/06/16 09:41 Dose: 1.25 mg Enoxaparin Sodium (Lovenox -) 40 mg SQ DAILY [facility] Last Admin: 06/06/16 09:51 Dose: 40 mg Hydralazine HCl (Apresoline Injection -) 10 mg IVPUSH TID [facility] Last Admin: 06/06/16 06:42 Dose: 10 mg Piperacillin Sod/Tazobactam Sod (Zosyn 3.375gm Ivpb (Pre-Docked)) 50 mls @ 100 mls/hr IVPB Q8H-IV [facility] PRN Reason: Protocol Last Admin: 06/06/16 09:47 Dose: 100 mls/hr Vancomycin HCl (Vancomycin (Pre-Docked)) 250 mls @ 166.667 mls/hr IVPB DAILY@ 1400 [facility] PRN Reason: Protocol Last Admin: 06/05/16 13:51 Dose: 166.667 mls/hr Fentanyl 500 mcg/ Dextrose 100 mls @ 15 mls/hr IVPB TITR [facility]; 75 MCG/HR PRN Reason: Protocol Last Titration: 06/06/16 09:34 Dose: 0 mcg/hr Insulin Aspart (Novolog Vial Sliding Scale -) 1 vial SQ TIDAC [facility] PRN Reason: Protocol Last Admin: 06/06/16 06:39 Dose: Not Given Methylprednisolone Sodium Succinate (Solu-Medrol -) 30 mg IVPB Q8H-IV [facility] Last Admin: 06/06/16 09:44 Dose: 30 mg Nicotine (Nicoderm Patch -) 14 mg TD DAILY [facility] Last Admin: 06/06/16 09:44 Dose: Not Given Pantoprazole Sodium (Protonix 40mg Ivpb (Pre-Docked)) 40 mg IVPB DAILY [facility] Last Admin: 06/06/16 09:46 Dose: 40 mg Verapamil HCl (Calan Sr -) 120 mg PO DAILY [facility] Last Admin: 06/06/16 09:35 Dose: Not Given - Objective Vital Signs: Vital Signs Temperature 97.8 F 06/06/16 02:00 Pulse Rate 73 06/06/16 11:12 Respiratory Rate 20 06/06/16 09:15 Blood Pressure 122/60 06/06/16 09:00 O2 Sat by Pulse Oximetry (%) 95 06/06/16 11:12 Constitutional: Yes: Well Nourished, No Distress, Calm Eyes: Yes: Conjunctiva Clear, EOM Intact, PERRL HENT: Yes: Atraumatic, Normocephalic Neck: Yes: Supple, Trachea Midline Cardiovascular: Yes: Regular Rate and Rhythm, Murmur, S1, S2. No: Bradycardia, Tachycardia, Pulse Irregular, Bruit, JVD, Gallop, Rub, S3, S4, Varicosities Respiratory: Yes: Regular, Intubated, Rhonchi, Wheezes. No: Rales Gastrointestinal: Yes: Normal Bowel Sounds, Soft. No: Distention, Tenderness Musculoskeletal: Yes: WNL Extremities: Yes: WNL Edema: No Peripheral Pulses WNL: Yes Peripheral Pulses: Left Doralis Pedis: 2+, Right Dorsalis Pedis: 2+ Neurological: Yes: Alert, Oriented, Cran Nerves II-XII Intact Psychiatric: Yes: Alert, Oriented Labs: CBC, BMP 06/06/16 05:05 06/06/16 05:05 INR, PTT INR 0.98 (0.82-1.09) 06/06/16 05:05 - ....Imaging Chest X-ray: Report Reviewed, Image Reviewed EKG: Report Reviewed, Image Reviewed Other: Report Reviewed, Image Reviewed (tele-nsr, frequent pvcs, apcs, psvt) Assessment/Plan +Influenza Acute respiratory failure Worsening anemia NSTEMI History breast cancer, lung mass with negative bx COPD, chronic with chronic hypoxemia Mild PSVT Chronic diastolic CHF Carotid stenosis s/p CEA REC: 1. Acute respiratory failure: -+ influenza -re-intubated -pulm to evaluate re vent management 2. Anemia: -stool guaiac -Follow H/H -appropriate bump in H/H s/p transfusion 3. NSTEMI: -in setting of acute illness, acute resp failure -Known/suspected underlying CAD -has refused cath on multiple occasions -Repeat echo w/ normal LV fxn. Mild -Rate control of PSVT with Verapamil -ASA 81mg as tolerated. 4. HTN: -cont home Verapamil for PSVT/HTN
[2016-06-06] MEDS: VANCOMYCIN 1 GRAM (PRE-DOCKED) 250 ML IVPB SCH (13:32)
--- NOTE | 2016-06-06 14:08 | PN ---
Physical Exam: SUBJECTIVE: Patient seen and examined at bedside. She's extubated yesterday and tolerate BiPAP fine overnight. Patient reported having slight sob, cough and diffuse abd pain which is chronic in nature. Per nurse, no other acute event overnight. OBJECTIVE: Reintubated (day 1) on mechanical ventilation: RR 14, TV 400, FiO2 30%, PEEP 5 Off fentanyl since 10am [facility] day 7 Vital Signs Period Temp Pulse Resp BP Sys/Rasheed Pulse Ox Last 24 Hr 97.8 F-98.6 F 53-128 14-28 118-149/43-68 92-100 GENERAL: AAO x 3, not in any distress HEAD: AT, NC EYES: Pupils equal, round and reactive to light, sclera anicteric, conjunctiva clear EARS, NOSE, THROAT: nares patent oropharynx clear without exudates LUNGS: loud bilateral rhonchi HEART: Tachycardic, S1 and S2, ejection murmur, rub ABDOMEN: +bs, soft, non-tender, no rebound, guarding EXTREMITIES: No peripheral edema. ABG Results ABG pH 7.47 (7.35-7.45) H 06/06/16 07:05 ABG pCO2 at Pt Temp 42.6 mmHg (35-45) D 06/06/16 07:05 ABG pO2 at Pt Temp 78.1 mmHg (70-100) 06/06/16 07:05 ABG HCO3 30.3 meq/L (22-26) H 06/06/16 07:05 ABG O2 Sat (Measured) 96.1 % (90-98.9) 06/06/16 07:05 ABG O2 Content 13.9 % vol (15-22) L 06/06/16 07:05 ABG Base Excess 6.3 meq/l (-2-2) H 06/06/16 07:05 CBCD WBC 11.9 K/mm3 (4.0-10.0) H 06/06/16 05:05 RBC 4.53 M/mm3 (3.60-5.2) 06/06/16 05:05 Hgb 10.2 GM/dL (10.7-15.3) L 06/06/16 05:05 Hct 32.6 % (32.4-45.2) 06/06/16 05:05 MCV 72.0 fl (80-96) L 06/06/16 05:05 MCHC 31.3 g/dl (32.0-36.0) L 06/06/16 05:05 RDW 24.1 % (11.6-15.6) H 06/06/16 05:05 Plt Count 198 K/MM3 (134-434) 06/06/16 05:05 MPV 9.2 fl (7.5-11.1) 06/06/16 05:05 CMP Sodium 142 mmol/L (136-145) 06/06/16 05:05 Potassium 4.1 mmol/L (3.5-5.1) 06/06/16 05:05 Chloride 100 mmol/L (98-107) 06/06/16 05:05 Carbon Dioxide 34 mmol/L (21-32) H 06/06/16 05:05 Anion Gap 8 (8-16) 06/06/16 05:05 BUN 26 mg/dL (7-18) H 06/06/16 05:05 Creatinine 0.6 mg/dL (0.55-1.02) 06/06/16 05:05 Creat Clearance w eGFR > 60 (>60) 06/05/16 05:20 Calcium 8.6 mg/dL (8.5-10.1) 06/06/16 05:05 Total Bilirubin 0.5 mg/dL (0.2-1.0) D 06/05/16 05:20 AST 52 U/L (15-37) H D 06/05/16 05:20 ALT 47 U/L (12-78) D 06/05/16 05:20 Alkaline Phosphatase 54 U/L (45-117) 06/05/16 05:20 Total Protein 5.0 g/dl (6.4-8.2) L 06/05/16 05:20 Albumin 2.0 g/dl (3.4-5.0) L 06/05/16 05:20 Intake & Output 06/03/16 06/04/16 06/05/16 06/06/16 23:59 23:59 23:59 23:59 Intake Total 7690 771 4259 680 Output Total 900 700 850 500 Balance 4504 033 6900 180 Weight 61.8 kg 59.874 kg 61 kg 59.676 kg Active Medications Generic Name Dose Route Start Last Admin Trade Name Freq PRN Reason Stop Dose Admin Acetaminophen 650 mg 06/04/16 02:00 06/04/16 02:30 Tylenol - PO 650 mg Q4H PRN Administration FEVER OR PAIN Aspirin 81 mg 06/01/16 17:15 06/06/16 09:47 Asa - NGT 81 mg DAILY YEISON Administration Atorvastatin Calcium 80 mg 05/31/16 22:00 06/05/16 21:00 Lipitor - PO 80 mg HS YEISON Administration Docusate Sodium 100 mg 05/31/16 10:00 06/06/16 09:48 Colace - PO Not Given DAILY YEISON Enalaprilat 1.25 mg 06/04/16 17:15 06/06/16 09:41 Vasotec Injection - IVPB 1.25 mg Q6H-IV YEISON Administration Enoxaparin Sodium 40 mg 06/02/16 10:00 06/06/16 09:51 Lovenox - SQ 40 mg DAILY YEISON Administration Hydralazine HCl 10 mg 06/05/16 09:38 06/06/16 13:32 Apresoline Injection - IVPUSH 10 mg TID YEISON Administration Piperacillin Sod/Tazobactam Sod 50 mls @ 100 mls/hr 06/01/16 16:19 06/06/16 09: 47 Zosyn 3.375gm Ivpb (Pre-Docked) IVPB 100 mls/hr Q8H-IV YEISON Administration Protocol Vancomycin HCl 250 mls @ 166.667 mls/hr 06/04/16 14:00 06/06/16 13:32 Vancomycin (Pre-Docked) IVPB 166.667 mls/hr DAILY@1400 YEISON Administration Protocol Fentanyl 500 mcg/ Dextrose 100 mls @ 15 mls/hr 06/05/16 14:30 06/06/16 09:34 IVPB 0 mcg/hr TITR YEISON Titration Protocol 75 MCG/HR Insulin Aspart 1 vial 05/31/16 07:00 06/06/16 13:31 Novolog Vial Sliding Scale - SQ 2 unit TIDAC YEISON Administration Protocol Methylprednisolone Sodium Succinate 30 mg 06/05/16 10:00 06/06/16 09:44 Solu-Medrol - IVPB 30 mg Q8H-IV YEISON Administration Nicotine 14 mg 05/31/16 10:00 06/06/16 09:44 Nicoderm Patch - TD Not Given DAILY YEISON Pantoprazole Sodium 40 mg 05/31/16 10:00 06/06/16 09:46 Protonix 40mg Ivpb (Pre-Docked) IVPB 40 mg DAILY YEISON Administration Verapamil HCl 120 mg 06/03/16 10:00 06/06/16 09:35 Calan Sr - PO Not Given DAILY YEISON Microbiology 05/30/16 23:30 Nasopharyngeal Swab Influenza Types A positive Imaging CXR on 06/06: Increasing pulmonary changes. Left upper lobe nodule. Stable tubes and catheters CXR on 06/05: bibasilar changes with large heart but slightly less congestive findings. The left upper lobe nodule which is better seen on CT from 05/30/2016 ECHO: normal LV function ASSESSMENT/PLAN: 75 yo F h/o COPD with chronic bronchitis on home O2, HTN, HLD, CHF, CAD, stable AAA, left breast CA s/p lumpectomy and radiation therapy, remote history of intracranial bleed admitted to the ICU for acute on chronic hypercapneic respiratory failure in the setting of COPD and CHF exacerbation and flu. Respiratory: acute on chronic hypercapneic respiratory failure - Reintubated on Sat. due to acute respiratory distress * will need trach - Nebulizers YEISON and PRN - Solumedrol 30mg Q8H - Lasix prn - SBT as tolerated ID: Sepsis 2/2 influenza A - Completed tamiflu and azitromycin courses - Cont. zosyn day 6 and vanco day 3 - Blood and sputum cultures negative to date Cardiac: NSTEMI vs. Demand ischemia; HTN - Cont. ASA - SVT on verapamil - Vasotec and hydralazine for BP control Heme: Microcytic anemia - HGB stable - Monitor H&H - Transfuse if < 7 FEN - No IVF indicated - Normal lytes, cont. to monitor - Tube feed osmolite Prophylaxis - DVT: hold lovenox due to low HGB - GI: daily PPI Disposition - Cont. to monitor in ICU - Family unreachable, will obtain psy eval on pt's decision making capacity Code status - Full code Visit type - Emergency Visit Emergency Visit: No - New Patient This patient is new to me today: No - Critical Care Critical Care patient: Yes Total Critical Care Time (in minutes): 35 Critical Care Statement: The care of this patient involved high complexity decision making to prevent further life threatening deterioration of the patient 's condition and/or to evalute & treat vital organ system(s) failure or risk of failure. - Discharge Referral Referred to [facility] No
--- NOTE | 2016-06-06 14:29 | PN ---
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, Physician History of Present Illness: patient much more awake and alert still intubated failed cpap - Current Medication List Current Medications: Active Medications Acetaminophen (Tylenol -) 650 mg PO Q4H PRN PRN Reason: FEVER OR PAIN Last Admin: 06/04/16 02:30 Dose: 650 mg Aspirin (Asa -) 81 mg NGT DAILY [facility] Last Admin: 06/06/16 09:47 Dose: 81 mg Atorvastatin Calcium (Lipitor -) 80 mg PO HS [facility] Last Admin: 06/05/16 21:00 Dose: 80 mg Docusate Sodium (Colace -) 100 mg PO DAILY [facility] Last Admin: 06/06/16 09:48 Dose: Not Given Enalaprilat (Vasotec Injection -) 1.25 mg IVPB Q6H-IV [facility] Last Admin: 06/06/16 09:41 Dose: 1.25 mg Enoxaparin Sodium (Lovenox -) 40 mg SQ DAILY [facility] Last Admin: 06/06/16 09:51 Dose: 40 mg Hydralazine HCl (Apresoline Injection -) 10 mg IVPUSH TID [facility] Last Admin: 06/06/16 13:32 Dose: 10 mg Piperacillin Sod/Tazobactam Sod (Zosyn 3.375gm Ivpb (Pre-Docked)) 50 mls @ 100 mls/hr IVPB Q8H-IV [facility] PRN Reason: Protocol Last Admin: 06/06/16 09:47 Dose: 100 mls/hr Vancomycin HCl (Vancomycin (Pre-Docked)) 250 mls @ 166.667 mls/hr IVPB DAILY@ 1400 YEISON PRN Reason: Protocol Last Admin: 06/06/16 13:32 Dose: 166.667 mls/hr Fentanyl 500 mcg/ Dextrose 100 mls @ 15 mls/hr IVPB TITR YEISON; 75 MCG/HR PRN Reason: Protocol Last Titration: 06/06/16 09:34 Dose: 0 mcg/hr Insulin Aspart (Novolog Vial Sliding Scale -) 1 vial SQ TIDAC [facility] PRN Reason: Protocol Last Admin: 06/06/16 13:31 Dose: 2 unit Methylprednisolone Sodium Succinate (Solu-Medrol -) 30 mg IVPB Q8H-IV [facility] Last Admin: 06/06/16 09:44 Dose: 30 mg Nicotine (Nicoderm Patch -) 14 mg TD DAILY [facility] Last Admin: 06/06/16 09:44 Dose: Not Given Pantoprazole Sodium (Protonix 40mg Ivpb (Pre-Docked)) 40 mg IVPB DAILY [facility] Last Admin: 06/06/16 09:46 Dose: 40 mg Verapamil HCl (Calan Sr -) 120 mg PO DAILY [facility] Last Admin: 06/06/16 09:35 Dose: Not Given - Objective Vital Signs: Vital Signs Temperature 97.8 F 06/06/16 11:00 Pulse Rate 74 06/06/16 13:14 Respiratory Rate 18 06/06/16 13:56 Blood Pressure 144/58 06/06/16 13:14 O2 Sat by Pulse Oximetry (%) 95 06/06/16 11:12 Constitutional: Yes: No Distress, Calm Neck: Yes: Supple Cardiovascular: Yes: Regular Rate and Rhythm Respiratory: Yes: Regular, Mechanically Ventilated, Rhonchi Gastrointestinal: Yes: Normal Bowel Sounds, Soft, Other (og in place) Musculoskeletal: Yes: WNL Extremities: Yes: WNL Neurological: Yes: Alert, Oriented Psychiatric: Yes: Alert Labs: CBC, BMP 06/06/16 05:05 06/06/16 05:05 INR, PTT INR 0.98 (0.82-1.09) 06/06/16 05:05 Assessment/Plan Problem List - Problems (1) Respiratory failure Code(s): J96.90 - RESPIRATORY FAILURE, UNSP, UNSP W HYPOXIA OR HYPERCAPNIA Qualifiers: Chronicity: acute Respiratory failure complication: hypoxia and hypercapnia Qualified Code(s): J96.01 - Acute respiratory failure with hypoxia (2) Chronic respiratory failure with hypoxia Code(s): J96.11 - CHRONIC RESPIRATORY FAILURE WITH HYPOXIA (3) CAD (coronary artery disease) Code(s): I25.10 - ATHSCL HEART DISEASE OF [place] CORONARY ARTERY W/O ANG PCTRS (4) COPD (chronic obstructive pulmonary disease) Assessment/Plan: intubated Code(s): J44.9 - CHRONIC OBSTRUCTIVE PULMONARY DISEASE, UNSPECIFIED (5) Chronic diastolic CHF (congestive heart failure) Code(s): I50.32 - CHRONIC DIASTOLIC (CONGESTIVE) HEART FAILURE (6) HLD (hyperlipidemia) Code(s): E78.5 - HYPERLIPIDEMIA, UNSPECIFIED Qualifiers: Hyperlipidemia type: unspecified Qualified Code(s): E78.5 - Hyperlipidemia, unspecified (7) HTN (hypertension) Code(s): I10 - ESSENTIAL (PRIMARY) HYPERTENSION Qualifiers: Hypertension type: essential hypertension Qualified Code(s): I10 - Essential (primary) hypertension (8) History of cigarette smoking Code(s): Z87.891 - PERSONAL HISTORY OF NICOTINE DEPENDENCE +Troponins/Acute NSTEMI Lactic Acidosis h/o Breast Ca Lung Nodules with recent biopsy showing necrotizing granulomas Smoker patient having purulent sputum wbc trending towards normal plan continue abx nutrition resp support rest as per icu mgmt will consider deescalting abx cc time 40 min
[2016-06-06] MEDS: FENTANYL INJECTION 500 MCG in DEXTROSE 5%-WATER - 90 ML IVPB SCH (16:50)
--- NOTE | 2016-06-06 20:51 | PN ---
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, Physician History of Present Illness: on bipap - Current Medication List Current Medications: Active Medications Acetaminophen (Tylenol -) 650 mg PO Q4H PRN PRN Reason: FEVER OR PAIN Last Admin: 06/04/16 02:30 Dose: 650 mg Aspirin (Asa -) 81 mg NGT DAILY [facility] Last Admin: 06/06/16 09:47 Dose: 81 mg Atorvastatin Calcium (Lipitor -) 80 mg PO HS [facility] Last Admin: 06/05/16 21:00 Dose: 80 mg Docusate Sodium (Colace -) 100 mg PO DAILY [facility] Last Admin: 06/06/16 09:48 Dose: Not Given Enalaprilat (Vasotec Injection -) 1.25 mg IVPB Q6H-IV [facility] Last Admin: 06/06/16 16:54 Dose: 1.25 mg Enoxaparin Sodium (Lovenox -) 40 mg SQ DAILY [facility] Last Admin: 06/06/16 09:51 Dose: 40 mg Hydralazine HCl (Apresoline Injection -) 10 mg IVPUSH TID [facility] Last Admin: 06/06/16 13:32 Dose: 10 mg Piperacillin Sod/Tazobactam Sod (Zosyn 3.375gm Ivpb (Pre-Docked)) 50 mls @ 100 mls/hr IVPB Q8H-IV [facility] PRN Reason: Protocol Last Admin: 06/06/16 17:24 Dose: 100 mls/hr Vancomycin HCl (Vancomycin (Pre-Docked)) 250 mls @ 166.667 mls/hr IVPB DAILY@ 1400 [facility] PRN Reason: Protocol Last Admin: 06/06/16 13:32 Dose: 166.667 mls/hr Fentanyl 500 mcg/ Dextrose 100 mls @ 15 mls/hr IVPB TITR YEISON; 75 MCG/HR PRN Reason: Protocol Last Admin: 06/06/16 16:50 Dose: Not Given Insulin Aspart (Novolog Vial Sliding Scale -) 1 vial SQ TIDAC [facility] PRN Reason: Protocol Last Admin: 06/06/16 18:44 Dose: 2 unit Methylprednisolone Sodium Succinate (Solu-Medrol -) 30 mg IVPB Q8H-IV [facility] Last Admin: 06/06/16 17:24 Dose: 30 mg Nicotine (Nicoderm Patch -) 14 mg TD DAILY [facility] Last Admin: 06/06/16 09:44 Dose: Not Given Pantoprazole Sodium (Protonix 40mg Ivpb (Pre-Docked)) 40 mg IVPB DAILY [facility] Last Admin: 06/06/16 09:46 Dose: 40 mg Verapamil HCl (Calan Sr -) 120 mg PO DAILY [facility] Last Admin: 06/06/16 09:35 Dose: Not Given - Objective Vital Signs: Vital Signs Temperature 98.9 F 06/06/16 15:00 Pulse Rate 81 06/06/16 20:24 Respiratory Rate 16 06/06/16 20:24 Blood Pressure 116/54 06/06/16 20:24 O2 Sat by Pulse Oximetry (%) 98 06/06/16 20:24 Constitutional: Yes: No Distress HENT: Yes: Atraumatic Neck: Yes: Supple Cardiovascular: Yes: Regular Rate and Rhythm Respiratory: Yes: CTA Bilaterally Gastrointestinal: Yes: Normal Bowel Sounds Edema: No Neurological: Yes: Alert, Oriented Labs: CBC, BMP 06/06/16 05:05 06/06/16 05:05 INR, PTT INR 0.98 (0.82-1.09) 06/06/16 05:05 Problem List - Problems (1) Respiratory failure Code(s): J96.90 - RESPIRATORY FAILURE, UNSP, UNSP W HYPOXIA OR HYPERCAPNIA Qualifiers: Chronicity: acute Respiratory failure complication: hypoxia and hypercapnia Qualified Code(s): J96.01 - Acute respiratory failure with hypoxia (2) Chronic respiratory failure with hypoxia Code(s): J96.11 - CHRONIC RESPIRATORY FAILURE WITH HYPOXIA (3) CAD (coronary artery disease) Code(s): I25.10 - ATHSCL HEART DISEASE OF [place] CORONARY ARTERY W/O ANG PCTRS (4) COPD (chronic obstructive pulmonary disease) Code(s): J44.9 - CHRONIC OBSTRUCTIVE PULMONARY DISEASE, UNSPECIFIED (5) Chronic diastolic CHF (congestive heart failure) Code(s): I50.32 - CHRONIC DIASTOLIC (CONGESTIVE) HEART FAILURE (6) HLD (hyperlipidemia) Code(s): E78.5 - HYPERLIPIDEMIA, UNSPECIFIED Qualifiers: Hyperlipidemia type: unspecified Qualified Code(s): E78.5 - Hyperlipidemia, unspecified (7) HTN (hypertension) Code(s): I10 - ESSENTIAL (PRIMARY) HYPERTENSION Qualifiers: Hypertension type: essential hypertension Qualified Code(s): I10 - Essential (primary) hypertension (8) History of cigarette smoking Code(s): Z87.891 - PERSONAL HISTORY OF NICOTINE DEPENDENCE (9) Influenza Code(s): J11.1 - FLU DUE TO UNIDENTIFIED INFLUENZA VIRUS W OTH RESP MANIFEST Assessment/Plan 1.+Influenza treated 2.Acute respiratory failure intubated still , failed cpap iv steroids abx duo nebs 3.Worsening anemia 4.NSTEMI 5.History breast cancer, lung mass with negative bx 6.COPD, chronic with chronic hypoxemia 7.chf STABLE PER RN PT HAD RECTAL BLEEDING...WILL CALL GI CONSULT CC 30 MIN
[2016-06-06] MEDS: ATORVASTATIN CA 80 MG TABLET (FP) PO SCH (21:00)
[2016-06-06 22:09] LABS: BASOPHIL 0.2 % (0-2.0); MCH 22.3 pg (25.7-33.7); MCHC 30.9 g/dl (32.0-36.0); MEAN PLT VOLUME 8.8 fl (7.5-11.1); NEUTROPHILS 94.1 % (42.8-82.8); PLATELET COUNT 188 K/MM3 (134-434); RDW 24.5 % (11.6-15.6); WHITE BLOOD COUNT 12.2 K/mm3 (4.0-10.0)
[2016-06-06 22:49] LABS: PLATELET ESTIMATE ADEQUATE (NORMAL); POLYCHROMASIA 1+
[2016-06-06 22:50] LABS: ANISOCYTOSIS 3+; HYPOCHROMIA 1+; MICROCYTOSIS 2+; OVALOCYTES 1+
[2016-06-07] MEDS: PIPERACILLIN/TAZOB 3.375 GM 50 ML IVPB SCH ×3 (02:00→17:23)
[2016-06-07] MEDS: methylPREDNISolone NA SUCC 40 MG/1 ML VIAL IVPB SCH ×2 (03:00→09:36)
[2016-06-07] MEDS: ENALAPRILAT DIHYDRATE 1.25 MG/1 ML VIAL IVPB SCH ×2 (03:00→09:35)
[2016-06-07] MEDS: hydrALAZINE HCL 20 MG/ML VIAL IVPUSH SCH ×2 (05:54→13:03)
[2016-06-07] MEDS: INSULIN SLIDING SCALE (NOVOLOG) 1 VIAL SQ SCH ×3 (06:01→17:25)
[2016-06-07 06:22] LABS: MCH 22.5 pg (25.7-33.7); MCHC 31.3 g/dl (32.0-36.0); MEAN CELL VOLUME 71.7 fl (80-96); MEAN PLT VOLUME 9.1 fl (7.5-11.1); PLATELET COUNT 201 K/MM3 (134-434)
[2016-06-07 06:46] LABS: INR 1.06 (0.82-1.09); PROTHROMBIN TIME (PATIENT) 11.7 SEC (9.98-11.88)
[2016-06-07 06:52] LABS: ANION GAP 10 (8-16); CALCIUM 8.7 mg/dL (8.5-10.1); CO2 32 mmol/L (21-32); GLUCOSE,RANDOM 130 mg/dL (74-106); MAGNESIUM 2.2 mg/dL (1.8-2.4)
[2016-06-07 06:55] LABS: ALK PHOS 54 U/L (45-117); BILIRUBIN,TOTAL 0.5 mg/dL (0.2-1.0); CREATININE 0.5 mg/dL (0.55-1.02); PHOSPHOROUS 2.6 mg/dL (2.5-4.9); SGOT/AST 44 U/L (15-37); SGPT/ALT 45 U/L (12-78); TOT PROT 5.2 g/dl (6.4-8.2)
[2016-06-07 07:35] LABS: ALLENS TEST POSITIVE; ART PUNCT SITE RIGHT RADIAL; ARTERIAL BLD GAS O2 SATURATION 95.9 % (90-98.9); ARTERIAL BLOOD GAS BASE EXCESS 7.6 meq/l (-2-2); ARTERIAL BLOOD GAS HCO3 31.5 meq/L (22-26); ARTERIAL BLOOD GAS PO2 77.2 mmHg (70-100); LPM/O2% 30; MECH. VENT. YES; PT. ON O2? YES; TYPE OF O2 VENT; VENT RATE 14; VT/PRESS 400
[2016-06-07 07:36] LABS: ARTERIAL BLOOD GAS pH 7.49 (7.35-7.45)
--- NOTE | 2016-06-07 08:55 | PN ---
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 (short form) - Note 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: GI consult placed last night. patient not known to my group, Advised resident that my group was not on service and to change to distribution associate GI from yesterday
[2016-06-07] MEDS: ENOXAPARIN NA (PORCINE) 40 MG/0.4 ML DISP.SYRIN SQ SCH (09:35)
[2016-06-07] MEDS: PANTOPRAZOLE SODIUM 40 MG/100 ML PRE-DOCKED IVPB SCH (09:36)
[2016-06-07] MEDS: ASPIRIN 81 MG CHEWABLE TABLETS NGT SCH (09:36)
[2016-06-07] MEDS: DOCUSATE SODIUM 100 MG CAPSULE (FP) PO SCH (09:37)
[2016-06-07] MEDS: NICOTINE 14 MG/24 HOURS TOPICAL PATCH TD SCH (09:37)
--- NOTE | 2016-06-07 10:03 | PN ---
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, Physician Chief Complaint: intubated Alert TELE: NSR. Runs of PSVT (known) Few VPCs. - Current Medication List Current Medications: Active Medications Acetaminophen (Tylenol -) 650 mg PO Q4H PRN PRN Reason: FEVER OR PAIN Last Admin: 06/04/16 02:30 Dose: 650 mg Aspirin (Asa -) 81 mg NGT DAILY [facility] Last Admin: 06/07/16 09:36 Dose: 81 mg Atorvastatin Calcium (Lipitor -) 80 mg PO HS [facility] Last Admin: 06/06/16 21:00 Dose: 80 mg Docusate Sodium (Colace -) 100 mg PO DAILY [facility] Last Admin: 06/07/16 09:37 Dose: Not Given Enalaprilat (Vasotec Injection -) 1.25 mg IVPB Q6H-IV [facility] Last Admin: 06/07/16 09:35 Dose: 1.25 mg Enoxaparin Sodium (Lovenox -) 40 mg SQ DAILY [facility] Last Admin: 06/07/16 09:35 Dose: 40 mg Hydralazine HCl (Apresoline Injection -) 10 mg IVPUSH TID [facility] Last Admin: 06/07/16 05:54 Dose: 10 mg Piperacillin Sod/Tazobactam Sod (Zosyn 3.375gm Ivpb (Pre-Docked)) 50 mls @ 100 mls/hr IVPB Q8H-IV [facility] PRN Reason: Protocol Last Admin: 06/07/16 09:36 Dose: 100 mls/hr Vancomycin HCl (Vancomycin (Pre-Docked)) 250 mls @ 166.667 mls/hr IVPB DAILY@ 1400 [facility] PRN Reason: Protocol Last Admin: 06/06/16 13:32 Dose: 166.667 mls/hr Fentanyl 500 mcg/ Dextrose 100 mls @ 15 mls/hr IVPB TITR YEISON; 75 MCG/HR PRN Reason: Protocol Last Admin: 06/06/16 16:50 Dose: Not Given Insulin Aspart (Novolog Vial Sliding Scale -) 1 vial SQ TIDAC [facility] PRN Reason: Protocol Last Admin: 06/07/16 06:01 Dose: 1 units Methylprednisolone Sodium Succinate (Solu-Medrol -) 30 mg IVPB Q8H-IV [facility] Last Admin: 06/07/16 09:36 Dose: 30 mg Nicotine (Nicoderm Patch -) 14 mg TD DAILY [facility] Last Admin: 06/07/16 09:37 Dose: Not Given Pantoprazole Sodium (Protonix 40mg Ivpb (Pre-Docked)) 40 mg IVPB DAILY [facility] Last Admin: 06/07/16 09:36 Dose: 40 mg Verapamil HCl (Calan Sr -) 120 mg PO DAILY [facility] Last Admin: 06/06/16 09:35 Dose: Not Given - Objective Vital Signs: Vital Signs Temperature 98.9 F 06/06/16 15:00 Pulse Rate 88 06/07/16 10:01 Respiratory Rate 16 06/07/16 07:32 Blood Pressure 134/55 06/07/16 05:00 O2 Sat by Pulse Oximetry (%) 96 06/07/16 10:02 Constitutional: Yes: Calm Cardiovascular: Yes: Regular Rate and Rhythm Respiratory: Yes: Other (=breath sounds. no wheezing) Gastrointestinal: Yes: Soft Edema: No Labs: CBC, BMP 06/07/16 05:15 06/07/16 05:15 INR, PTT INR 1.06 (0.82-1.09) 06/07/16 05:15 Laboratory Tests 06/07/16 06/07/16 06/07/16 05:15 05:15 05:15 WBC 12.0 H Hgb 10.3 L Plt Count 201 INR 1.06 Sodium 143 Potassium 3.7 BUN 24 H Creatinine 0.5 L - ....Imaging EKG: Image Reviewed Assessment/Plan Assessment/Plan +Influenza Acute respiratory failure Worsening anemia NSTEMI History breast cancer, lung mass with negative bx COPD, chronic with chronic hypoxemia Mild PSVT Chronic diastolic CHF Carotid stenosis s/p CEA REC: 1. Acute respiratory failure: -+ influenza -re-intubated -pulm to evaluate re vent management 2. Anemia: -stool guaiac -Follow H/H -appropriate bump in H/H s/p transfusion 3. NSTEMI: -in setting of acute illness, acute resp failure -Known/suspected underlying CAD -has refused cath on multiple occasions -Repeat echo w/ normal LV fxn. Mild -Rate control of PSVT with Verapamil -ASA 81mg as tolerated.
[2016-06-07] MEDS: ACETAMINOPHEN 325 MG TABLET (FP) PO PRN (12:06)
--- NOTE | 2016-06-07 12:40 | PN ---
Teaching Attending Note Name of Resident: Conrad Pagan ATTENDING PHYSICIAN STATEMENT I saw and evaluated the patient. I reviewed the resident's note and discussed the case with the resident. I agree with the resident's findings and plan as documented. SUBJECTIVE: Patient seen and examined in the ICU. Remains intubated and awake and responsive. Again, still not tolerating CPAP trials for more than a few minutes. CXR: ETT in place no significant change Intake & Output 06/04/16 06/05/16 06/06/16 06/07/16 23:59 23:59 23:59 23:59 Intake Total 905 1886 1820 Output Total 700 850 700 Balance 205 1036 1120 Weight 132 lb 134 lb 7.712 oz 131 lb 9 oz 132 lb 4.438 oz Last Vital Signs Temp Pulse Resp BP Pulse Ox 98 F 88 21 145/58 96 06/07/16 08:00 06/07/16 10:01 06/07/16 12:01 06/07/16 09:00 06/07/16 10:02 Active Medications Acetaminophen (Tylenol -) 650 mg PO Q4H PRN PRN Reason: FEVER OR PAIN Last Admin: 06/07/16 12:06 Dose: 650 mg Aspirin (Asa -) 81 mg NGT DAILY [facility] Last Admin: 06/07/16 09:36 Dose: 81 mg Atorvastatin Calcium (Lipitor -) 80 mg PO HS [facility] Last Admin: 06/06/16 21:00 Dose: 80 mg Docusate Sodium (Colace -) 100 mg PO DAILY [facility] Last Admin: 06/07/16 09:37 Dose: Not Given Enalaprilat (Vasotec Injection -) 1.25 mg IVPB Q6H-IV [facility] Last Admin: 06/07/16 09:35 Dose: 1.25 mg Enoxaparin Sodium (Lovenox -) 40 mg SQ DAILY [facility] Last Admin: 06/07/16 09:35 Dose: 40 mg Hydralazine HCl (Apresoline Injection -) 10 mg IVPUSH TID [facility] Last Admin: 06/07/16 05:54 Dose: 10 mg Piperacillin Sod/Tazobactam Sod (Zosyn 3.375gm Ivpb (Pre-Docked)) 50 mls @ 100 mls/hr IVPB Q8H-IV [facility] PRN Reason: Protocol Last Admin: 06/07/16 09:36 Dose: 100 mls/hr Vancomycin HCl (Vancomycin (Pre-Docked)) 250 mls @ 166.667 mls/hr IVPB DAILY@ 1400 [facility] PRN Reason: Protocol Last Admin: 06/06/16 13:32 Dose: 166.667 mls/hr Fentanyl 500 mcg/ Dextrose 100 mls @ 15 mls/hr IVPB TITR [facility]; 75 MCG/HR PRN Reason: Protocol Last Admin: 06/06/16 16:50 Dose: Not Given Insulin Aspart (Novolog Vial Sliding Scale -) 1 vial SQ TIDAC [facility] PRN Reason: Protocol Last Admin: 06/07/16 12:08 Dose: 1 units Methylprednisolone Sodium Succinate (Solu-Medrol -) 30 mg IVPB Q8H-IV [facility] Last Admin: 06/07/16 09:36 Dose: 30 mg Nicotine (Nicoderm Patch -) 14 mg TD DAILY [facility] Last Admin: 06/07/16 09:37 Dose: Not Given Pantoprazole Sodium (Protonix 40mg Ivpb (Pre-Docked)) 40 mg IVPB DAILY [facility] Last Admin: 06/07/16 09:36 Dose: 40 mg Verapamil HCl (Calan Sr -) 120 mg PO DAILY [facility] Last Admin: 06/06/16 09:35 Dose: Not Given Gen: Awake on AC Mode of vent Heart: regular Lung: scattered rhonchi, distant breath sounds Abd: soft, nontender Ext: no edema Laboratory Results - last 24 hr 06/06/16 06/06/16 06/06/16 05:11 12:49 18:42 WBC RBC Hgb Hct MCV MCHC RDW Plt Count MPV Neutrophils % Lymphocytes % Monocytes % Eosinophils % Basophils % Platelet Estimate Polychromasia Hypochromic-Microcytic Anisocytosis Microcytosis Ovalocytes INR Puncture Site ABG pH ABG pCO2 at Pt Temp ABG pO2 at Pt Temp ABG HCO3 ABG O2 Sat (Measured) ABG O2 Content ABG Base Excess Rafi Test O2 Delivery Device Oxygen Flow Rate Vent Mode Vent Rate Mechanical Rate PEEP Pressure Support Vent Sodium Potassium Chloride Carbon Dioxide Anion Gap BUN Creatinine Creat Clearance w eGFR POC Glucometer 105.06097 235.39063 206.58931 Random Glucose Calcium Phosphorus Magnesium Total Bilirubin AST ALT Alkaline Phosphatase Total Protein Albumin Stool Occult Blood 06/06/16 06/06/16 06/07/16 21:45 22:00 05:15 WBC 12.2 H 12.0 H RBC 4.66 4.58 Hgb 10.4 L 10.3 L Hct 33.6 32.9 MCV 72.0 L 71.7 L MCHC 30.9 L 31.3 L RDW 24.5 H 24.0 H Plt Count 188 201 MPV 8.8 9.1 Neutrophils % 94.1 H Lymphocytes % 1.9 L Monocytes % 3.8 D Eosinophils % 0.0 Basophils % 0.2 Platelet Estimate Adequate Polychromasia 1+ Hypochromic-Microcytic 1+ Anisocytosis 3+ Microcytosis 2+ Ovalocytes 1+ INR Puncture Site ABG pH ABG pCO2 at Pt Temp ABG pO2 at Pt Temp ABG HCO3 ABG O2 Sat (Measured) ABG O2 Content ABG Base Excess Rafi Test O2 Delivery Device Oxygen Flow Rate Vent Mode Vent Rate Mechanical Rate PEEP Pressure Support Vent Sodium Potassium Chloride Carbon Dioxide Anion Gap BUN Creatinine Creat Clearance w eGFR POC Glucometer Random Glucose Calcium Phosphorus Magnesium Total Bilirubin AST ALT Alkaline Phosphatase Total Protein Albumin Stool Occult Blood Trace 06/07/16 06/07/16 06/07/16 05:15 05:15 05:38 WBC RBC Hgb Hct MCV MCHC RDW Plt Count MPV Neutrophils % Lymphocytes % Monocytes % Eosinophils % Basophils % Platelet Estimate Polychromasia Hypochromic-Microcytic Anisocytosis Microcytosis Ovalocytes INR 1.06 Puncture Site ABG pH ABG pCO2 at Pt Temp ABG pO2 at Pt Temp ABG HCO3 ABG O2 Sat (Measured) ABG O2 Content ABG Base Excess Rafi Test O2 Delivery Device Oxygen Flow Rate Vent Mode Vent Rate Mechanical Rate PEEP Pressure Support Vent Sodium 143 Potassium 3.7 Chloride 101 Carbon Dioxide 32 Anion Gap 10 BUN 24 H Creatinine 0.5 L Creat Clearance w eGFR > 60 POC Glucometer 158.51546 Random Glucose 130 H D Calcium 8.7 Phosphorus 2.6 Magnesium 2.2 Total Bilirubin 0.5 AST 44 H ALT 45 Alkaline Phosphatase 54 Total Protein 5.2 L Albumin 2.0 L Stool Occult Blood 06/07/16 06/07/16 07:24 11:47 WBC RBC Hgb Hct MCV MCHC RDW Plt Count MPV Neutrophils % Lymphocytes % Monocytes % Eosinophils % Basophils % Platelet Estimate Polychromasia Hypochromic-Microcytic Anisocytosis Microcytosis Ovalocytes INR Puncture Site Right radial ABG pH 7.49 H ABG pCO2 at Pt Temp 42.2 ABG pO2 at Pt Temp 77.2 ABG HCO3 31.5 H ABG O2 Sat (Measured) 95.9 ABG O2 Content 14.3 L ABG Base Excess 7.6 H Rafi Test Positive O2 Delivery Device Vent Oxygen Flow Rate 30 Vent Mode A/c Vent Rate 14 Mechanical Rate Yes PEEP 5.0 Pressure Support Vent 400 Sodium Potassium Chloride Carbon Dioxide Anion Gap BUN Creatinine Creat Clearance w eGFR POC Glucometer 185.28311 Random Glucose Calcium Phosphorus Magnesium Total Bilirubin AST ALT Alkaline Phosphatase Total Protein Albumin Stool Occult Blood ASSESSMENT AND PLAN: Acute on Chronic Hypoxic and Hypercapneic Respiratory Failure Influenza A Acute COPD Exacerbation CAD +Troponins/Acute NSTEMI Lactic Acidosis h/o Breast Ca 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
[2016-06-07] MEDS: dilTIAZem HCL 30 MG TABLET (FP) PO SCH ×3 (13:03→21:32)
[2016-06-07] MEDS: VANCOMYCIN 1 GRAM (PRE-DOCKED) 250 ML IVPB SCH (13:03)
--- NOTE | 2016-06-07 13:36 | PN ---
Addendum entered and electronically signed by Conrad Pagan RES 06/07/16 15:46: Vancomycin discontinued today. Zosyn will be discontinued tomorrow. Original Note: Physical Exam: SUBJECTIVE: Patient seen and examined at bedside in the ICU. She's still intubated but has no complaints overnight. Could not tolerate CPAP for even a minute. Per nurse, she had dark stool from bowel movement overnight. OBJECTIVE: Reintubated (day 2) on mechanical ventilation: RR 14, TV 400, FiO2 30%, PEEP 5 Not on pressor or sedation Vital Signs Period Temp Pulse Resp BP Sys/Rasheed Pulse Ox Last 24 Hr 98 F-98.9 F 72-100 16-26 113-145/53-60 95-98 GENERAL: AAO x 3, not in any distress HEAD: AT, NC EYES: Pupils equal, round and reactive to light, sclera anicteric, conjunctiva clear EARS, NOSE, THROAT: nares patent oropharynx clear without exudates LUNGS: bilateral rhonchi HEART: RRR, S1 and S2, ejection murmur, rub ABDOMEN: +bs, soft, non-tender, no rebound, guarding EXTREMITIES: No peripheral edema. ABG Results ABG pH 7.49 (7.35-7.45) H 06/07/16 07:24 ABG pCO2 at Pt Temp 42.2 mmHg (35-45) 06/07/16 07:24 ABG pO2 at Pt Temp 77.2 mmHg (70-100) 06/07/16 07:24 ABG HCO3 31.5 meq/L (22-26) H 06/07/16 07:24 ABG O2 Sat (Measured) 95.9 % (90-98.9) 06/07/16 07:24 ABG O2 Content 14.3 % vol (15-22) L 06/07/16 07:24 ABG Base Excess 7.6 meq/l (-2-2) H 06/07/16 07:24 CBCD WBC 12.0 K/mm3 (4.0-10.0) H 06/07/16 05:15 RBC 4.58 M/mm3 (3.60-5.2) 06/07/16 05:15 Hgb 10.3 GM/dL (10.7-15.3) L 06/07/16 05:15 Hct 32.9 % (32.4-45.2) 06/07/16 05:15 MCV 71.7 fl (80-96) L 06/07/16 05:15 MCHC 31.3 g/dl (32.0-36.0) L 06/07/16 05:15 RDW 24.0 % (11.6-15.6) H 06/07/16 05:15 Plt Count 201 K/MM3 (134-434) 06/07/16 05:15 MPV 9.1 fl (7.5-11.1) 06/07/16 05:15 CMP Sodium 143 mmol/L (136-145) 06/07/16 05:15 Potassium 3.7 mmol/L (3.5-5.1) 06/07/16 05:15 Chloride 101 mmol/L (98-107) 06/07/16 05:15 Carbon Dioxide 32 mmol/L (21-32) 06/07/16 05:15 Anion Gap 10 (8-16) 06/07/16 05:15 BUN 24 mg/dL (7-18) H 06/07/16 05:15 Creatinine 0.5 mg/dL (0.55-1.02) L 06/07/16 05:15 Creat Clearance w eGFR > 60 (>60) 06/07/16 05:15 Calcium 8.7 mg/dL (8.5-10.1) 06/07/16 05:15 Total Bilirubin 0.5 mg/dL (0.2-1.0) 06/07/16 05:15 AST 44 U/L (15-37) H 06/07/16 05:15 ALT 45 U/L (12-78) 06/07/16 05:15 Alkaline Phosphatase 54 U/L (45-117) 06/07/16 05:15 Total Protein 5.2 g/dl (6.4-8.2) L 06/07/16 05:15 Albumin 2.0 g/dl (3.4-5.0) L 06/07/16 05:15 Intake & Output 06/04/16 06/05/16 06/06/16 06/07/16 23:59 23:59 23:59 23:59 Intake Total 905 1886 1820 Output Total 700 850 700 Balance 205 1036 1120 Weight 59.874 kg 61 kg 59.676 kg 60 kg Active Medications Generic Name Dose Route Start Last Admin Trade Name Freq PRN Reason Stop Dose Admin Acetaminophen 650 mg 06/04/16 02:00 06/07/16 12:06 Tylenol - PO 650 mg Q4H PRN Administration FEVER OR PAIN Aspirin 81 mg 06/01/16 17:15 06/07/16 09:36 Asa - NGT 81 mg DAILY [facility] Administration Atorvastatin Calcium 80 mg 05/31/16 22:00 06/06/16 21:00 Lipitor - PO 80 mg HS [facility] Administration Diltiazem HCl 30 mg 06/07/16 14:00 06/07/16 13:03 Cardizem - PO 30 mg QID [facility] Administration Docusate Sodium 100 mg 05/31/16 10:00 06/07/16 09:37 Colace - PO Not Given DAILY [facility] Enalapril Maleate 1.25 mg 06/07/16 14:00 Vasotec - NGT Q6HPO [facility] Enoxaparin Sodium 40 mg 06/02/16 10:00 06/07/16 09:35 Lovenox - SQ 40 mg DAILY [facility] Administration Hydralazine HCl 10 mg 06/07/16 14:00 Apresoline - NGT TID [facility] Piperacillin Sod/Tazobactam Sod 50 mls @ 100 mls/hr 06/01/16 16:19 06/07/16 09: 36 Zosyn 3.375gm Ivpb (Pre-Docked) IVPB 100 mls/hr Q8H-IV [facility] Administration Protocol Vancomycin HCl 250 mls @ 166.667 mls/hr 06/04/16 14:00 06/07/16 13:03 Vancomycin (Pre-Docked) IVPB 166.667 mls/hr DAILY@1400 [facility] Administration Protocol Fentanyl 500 mcg/ Dextrose 100 mls @ 15 mls/hr 06/05/16 14:30 06/06/16 16:50 IVPB Not Given TITR [facility] Protocol 75 MCG/HR Insulin Aspart 1 vial 05/31/16 07:00 06/07/16 12:08 Novolog Vial Sliding Scale - SQ 1 units TIDAC [facility] Administration Protocol Nicotine 14 mg 05/31/16 10:00 06/07/16 09:37 Nicoderm Patch - TD Not Given DAILY [facility] Pantoprazole Sodium 40 mg 05/31/16 10:00 06/07/16 09:36 Protonix 40mg Ivpb (Pre-Docked) IVPB 40 mg DAILY [facility] Administration Prednisone 20 mg 06/07/16 22:00 Deltasone - NGT BID [facility] Microbiology 05/30/16 23:30 Nasopharyngeal Swab Influenza Types A positive Imaging CXR on 06/07: No significant change CXR on 06/06: Increasing pulmonary changes. Left upper lobe nodule. Stable tubes and catheters CXR on 06/05: bibasilar changes with large heart but slightly less congestive findings. The left upper lobe nodule which is better seen on CT from 05/30/2016 ECHO: normal LV function ASSESSMENT/PLAN: 75 yo F h/o COPD with chronic bronchitis on home O2, HTN, HLD, CHF, CAD, stable AAA, left breast CA s/p lumpectomy and radiation therapy, remote history of intracranial bleed admitted to the ICU for acute on chronic hypercapneic respiratory failure in the setting of COPD and CHF exacerbation and flu. Respiratory: acute on chronic hypercapneic respiratory failure - Reintubated on Sat. due to acute respiratory distress * Dr. Lau onboard once pt decides on trach - Nebulizers [facility] and PRN - Changed solumedrol 30 mg Q8H to Predisone NGT BID - Lasix prn - SBT as tolerated ID: Sepsis 2/2 influenza A - Completed tamiflu and azitromycin courses - Cont. zosyn day 7 and vanco day 4 - Blood and sputum cultures negative to date Cardiac: NSTEMI vs. Demand ischemia; HTN - Cont. ASA - SVT on verapamil - Changed Vasotec and hydralazine from IV to NGT for BP control Heme: Microcytic anemia - Dark stool from overnight bowel movement - HGB stable - Monitor H&H - Transfuse if < 7 FEN - No IVF indicated - Normal lytes, cont. to monitor - Restarted Tube feed osmolite * NPO midnight for possible trach tomorrow Prophylaxis - DVT: Cont. lovenox, will hold if H/H drops - GI: daily PPI Disposition - Cont. to monitor in ICU - Family unreachable, will obtain psy eval on pt's decision making capacity Code status - Full code Visit type - Emergency Visit Emergency Visit: No - New Patient This patient is new to me today: No - Critical Care Critical Care patient: Yes Total Critical Care Time (in minutes): 35 Critical Care Statement: The care of this patient involved high complexity decision making to prevent further life threatening deterioration of the patient 's condition and/or to evalute & treat vital organ system(s) failure or risk of failure.
--- NOTE | 2016-06-07 15:25 | CONSULT ---
Consult - text type - Consultation Consultation Note: Thoracic Attending: Pt seen and examined after consult for possible tracheostomy. She is still deciding. I think it would be reasonable given her severe COPD. I am available when she makes her decision.
--- NOTE | 2016-06-07 15:56 | PN ---
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, Physician History of Present Illness: patient doing better awake and alert still intubated - Current Medication List Current Medications: Active Medications Acetaminophen (Tylenol -) 650 mg PO Q4H PRN PRN Reason: FEVER OR PAIN Last Admin: 06/07/16 12:06 Dose: 650 mg Aspirin (Asa -) 81 mg NGT DAILY [facility] Last Admin: 06/07/16 09:36 Dose: 81 mg Atorvastatin Calcium (Lipitor -) 80 mg PO HS [facility] Last Admin: 06/06/16 21:00 Dose: 80 mg Diltiazem HCl (Cardizem -) 30 mg PO QID [facility] Last Admin: 06/07/16 13:03 Dose: 30 mg Docusate Sodium (Colace -) 100 mg PO DAILY [facility] Last Admin: 06/07/16 09:37 Dose: Not Given Enalapril Maleate (Vasotec -) 1.25 mg NGT Q6HPO [facility] Enoxaparin Sodium (Lovenox -) 40 mg SQ DAILY [facility] Last Admin: 06/07/16 09:35 Dose: 40 mg Hydralazine HCl (Apresoline -) 10 mg NGT TID [facility] Piperacillin Sod/Tazobactam Sod (Zosyn 3.375gm Ivpb (Pre-Docked)) 50 mls @ 100 mls/hr IVPB Q8H-IV [facility] PRN Reason: Protocol Last Admin: 06/07/16 09:36 Dose: 100 mls/hr Fentanyl 500 mcg/ Dextrose 100 mls @ 15 mls/hr IVPB TITR [facility]; 75 MCG/HR PRN Reason: Protocol Last Admin: 06/06/16 16:50 Dose: Not Given Insulin Aspart (Novolog Vial Sliding Scale -) 1 vial SQ TIDAC [facility] PRN Reason: Protocol Last Admin: 06/07/16 12:08 Dose: 1 units Nicotine (Nicoderm Patch -) 14 mg TD DAILY [facility] Last Admin: 06/07/16 09:37 Dose: Not Given Pantoprazole Sodium (Protonix 40mg Ivpb (Pre-Docked)) 40 mg IVPB DAILY [facility] Last Admin: 06/07/16 09:36 Dose: 40 mg Prednisone (Deltasone -) 20 mg NGT BID [facility] - Objective Vital Signs: Vital Signs Temperature 98 F 06/07/16 08:00 Pulse Rate 75 06/07/16 13:00 Respiratory Rate 16 06/07/16 14:06 Blood Pressure 125/56 06/07/16 13:00 O2 Sat by Pulse Oximetry (%) 96 06/07/16 10:02 Constitutional: Yes: No Distress, Calm Cardiovascular: Yes: Regular Rate and Rhythm Respiratory: Yes: Intubated, Mechanically Ventilated Gastrointestinal: Yes: Normal Bowel Sounds, Soft, Other (og tube) Musculoskeletal: Yes: WNL Extremities: Yes: WNL Neurological: Yes: Alert, Oriented Psychiatric: Yes: Alert Labs: CBC, BMP 06/07/16 05:15 06/07/16 05:15 INR, PTT INR 1.06 (0.82-1.09) 06/07/16 05:15 Assessment/Plan Problem List - Problems (1) Respiratory failure Code(s): J96.90 - RESPIRATORY FAILURE, UNSP, UNSP W HYPOXIA OR HYPERCAPNIA Qualifiers: Chronicity: acute Respiratory failure complication: hypoxia and hypercapnia Qualified Code(s): J96.01 - Acute respiratory failure with hypoxia (2) Chronic respiratory failure with hypoxia Code(s): J96.11 - CHRONIC RESPIRATORY FAILURE WITH HYPOXIA (3) CAD (coronary artery disease) Code(s): I25.10 - ATHSCL HEART DISEASE OF [place] CORONARY ARTERY W/O ANG PCTRS (4) COPD (chronic obstructive pulmonary disease) Assessment/Plan: intubated Code(s): J44.9 - CHRONIC OBSTRUCTIVE PULMONARY DISEASE, UNSPECIFIED (5) Chronic diastolic CHF (congestive heart failure) Code(s): I50.32 - CHRONIC DIASTOLIC (CONGESTIVE) HEART FAILURE (6) HLD (hyperlipidemia) Code(s): E78.5 - HYPERLIPIDEMIA, UNSPECIFIED Qualifiers: Hyperlipidemia type: unspecified Qualified Code(s): E78.5 - Hyperlipidemia, unspecified (7) HTN (hypertension) Code(s): I10 - ESSENTIAL (PRIMARY) HYPERTENSION Qualifiers: Hypertension type: essential hypertension Qualified Code(s): I10 - Essential (primary) hypertension (8) History of cigarette smoking Code(s): Z87.891 - PERSONAL HISTORY OF NICOTINE DEPENDENCE +Troponins/Acute NSTEMI Lactic Acidosis h/o Breast Ca 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
[2016-06-07] MEDS: FENTANYL INJECTION 500 MCG in DEXTROSE 5%-WATER - 90 ML IVPB SCH (16:02)
[2016-06-07] MEDS: ENALAPRIL MALEATE 2.5 MG TABLET (FP) NGT SCH ×2 (16:02→17:22)
[2016-06-07] MEDS: hydrALAZINE HCL 10 MG TABLET NGT SCH ×2 (16:02→21:32)
--- NOTE | 2016-06-07 18:58 | PN ---
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, Physician History of Present Illness: INTUBATED AWAKE - Current Medication List Current Medications: Active Medications Acetaminophen (Tylenol -) 650 mg PO Q4H PRN PRN Reason: FEVER OR PAIN Last Admin: 06/07/16 12:06 Dose: 650 mg Aspirin (Asa -) 81 mg NGT DAILY [facility] Last Admin: 06/07/16 09:36 Dose: 81 mg Atorvastatin Calcium (Lipitor -) 80 mg PO HS [facility] Last Admin: 06/06/16 21:00 Dose: 80 mg Diltiazem HCl (Cardizem -) 30 mg PO QID [facility] Last Admin: 06/07/16 17:22 Dose: 30 mg Docusate Sodium (Colace -) 100 mg PO DAILY [facility] Last Admin: 06/07/16 09:37 Dose: Not Given Enalapril Maleate (Vasotec -) 1.25 mg NGT Q6HPO [facility] Last Admin: 06/07/16 17:22 Dose: 1.25 mg Enoxaparin Sodium (Lovenox -) 40 mg SQ DAILY [facility] Last Admin: 06/07/16 09:35 Dose: 40 mg Hydralazine HCl (Apresoline -) 10 mg NGT TID [facility] Last Admin: 06/07/16 16:02 Dose: Not Given Piperacillin Sod/Tazobactam Sod (Zosyn 3.375gm Ivpb (Pre-Docked)) 50 mls @ 100 mls/hr IVPB Q8H-IV [facility] PRN Reason: Protocol Last Admin: 06/07/16 17:23 Dose: 100 mls/hr Fentanyl 500 mcg/ Dextrose 100 mls @ 15 mls/hr IVPB TITR [facility]; 75 MCG/HR PRN Reason: Protocol Last Admin: 06/07/16 16:02 Dose: Not Given Insulin Aspart (Novolog Vial Sliding Scale -) 1 vial SQ TIDAC [facility] PRN Reason: Protocol Last Admin: 06/07/16 17:25 Dose: 2 units Nicotine (Nicoderm Patch -) 14 mg TD DAILY [facility] Last Admin: 06/07/16 09:37 Dose: Not Given Pantoprazole Sodium (Protonix 40mg Ivpb (Pre-Docked)) 40 mg IVPB DAILY [facility] Last Admin: 06/07/16 09:36 Dose: 40 mg Prednisone (Deltasone -) 20 mg NGT BID [facility] - Objective Vital Signs: Vital Signs Temperature 98.2 F 06/07/16 15:00 Pulse Rate 77 06/07/16 17:00 Respiratory Rate 21 06/07/16 18:43 Blood Pressure 108/56 06/07/16 17:00 O2 Sat by Pulse Oximetry (%) 99 06/07/16 18:23 Constitutional: Yes: No Distress HENT: Yes: Atraumatic Neck: Yes: Supple Cardiovascular: Yes: Regular Rate and Rhythm Respiratory: Yes: CTA Bilaterally Gastrointestinal: Yes: Normal Bowel Sounds Extremities: Yes: WNL Neurological: Yes: Alert, Oriented Labs: CBC, BMP 06/07/16 05:15 06/07/16 05:15 INR, PTT INR 1.06 (0.82-1.09) 06/07/16 05:15 Problem List - Problems (1) Respiratory failure Code(s): J96.90 - RESPIRATORY FAILURE, UNSP, UNSP W HYPOXIA OR HYPERCAPNIA Qualifiers: Chronicity: acute Respiratory failure complication: hypoxia and hypercapnia Qualified Code(s): J96.01 - Acute respiratory failure with hypoxia (2) Chronic respiratory failure with hypoxia Code(s): J96.11 - CHRONIC RESPIRATORY FAILURE WITH HYPOXIA (3) CAD (coronary artery disease) Code(s): I25.10 - ATHSCL HEART DISEASE OF [place] CORONARY ARTERY W/O ANG PCTRS (4) COPD (chronic obstructive pulmonary disease) Code(s): J44.9 - CHRONIC OBSTRUCTIVE PULMONARY DISEASE, UNSPECIFIED (5) Chronic diastolic CHF (congestive heart failure) Code(s): I50.32 - CHRONIC DIASTOLIC (CONGESTIVE) HEART FAILURE (6) HLD (hyperlipidemia) Code(s): E78.5 - HYPERLIPIDEMIA, UNSPECIFIED Qualifiers: Hyperlipidemia type: unspecified Qualified Code(s): E78.5 - Hyperlipidemia, unspecified (7) HTN (hypertension) Code(s): I10 - ESSENTIAL (PRIMARY) HYPERTENSION Qualifiers: Hypertension type: essential hypertension Qualified Code(s): I10 - Essential (primary) hypertension (8) History of cigarette smoking Code(s): Z87.891 - PERSONAL HISTORY OF NICOTINE DEPENDENCE (9) Influenza Code(s): J11.1 - FLU DUE TO UNIDENTIFIED INFLUENZA VIRUS W OTH RESP MANIFEST Assessment/Plan 1.+Influenza treated 2.Acute respiratory failure intubated still , failed cpap iv steroids abx duo nebs 3.Worsening anemia 4.NSTEMI 5.History breast cancer, lung mass with negative bx 6.COPD, chronic with chronic hypoxemia 7.chf STABLE RECTAL BLEEDING AWAITING GI CONSULT CC 30 MIN
--- NOTE | 2016-06-07 20:39 | CON.GI ---
Consult Consult Specialty:: GI Referred by:: Dr Mcdowell Reason for Consultation:: Anemia with trace guaiac (+) stool - History of Present Illness Chief Complaint: Respiratory failure History of Present Illness: 75 F with h/o HTN, HLD, COPD, L breast ca s/p RT admitted in respiratory arrest. She was intubated in the field by EMS. She has been in the hospital since with influenza and is still vented. She was noted to be anemic and now called as stool trace guaiac (+) - History Source History Provided By: Medical Record Limitations to Obtaining History: Intubated - Past Medical History [employer]: Yes: Other (SDH) Cardio/Vascular: Yes: CAD, CHF, HTN, Other (carotid stenosis s/p CEA) Pulmonary: Yes: COPD, O2 Dependent, Other (Lung nodules) - Past Surgical History Past Surgical History: Yes: Carotid Endarterectomy (right), Hysterectomy - Alcohol/Substance Use Hx Alcohol Use: No History of Substance Use: reports: None - Smoking History Smoking history: Current every day smoker Have you smoked in the past 12 months: Yes Aproximately how many cigarettes per day: 2 If you are a former smoker, when did you quit?: pt was smoking a cig prior to ems arrival - Social History Usual Living Arrangement: Alone ADL: Independent History of Recent Travel: No Home Medications - Allergies Allergies/Adverse Reactions: Allergies Allergy/AdvReac Type Severity Reaction Status Date / Time No Known Allergies Allergy Verified 05/30/16 16:46 - Home Medications Home Medications: Ambulatory Orders Cholecalciferol (Vitamin D3) [Vitamin D3 -] 1,000 unit PO DAILY #30 tab Albuterol Sulfate [Proair Hfa -] 2 inh PO BID 06/14/14 Omeprazole 20 mg PO DAILY 09/29/15 Acetaminophen [Tylenol Extra Strength] 500 mg PO QID #90 tablet 02/22/16 Aspirin [ASA -] 81 mg PO DAILY tab.chew 02/22/16 Atorvastatin Ca [Lipitor] 40 mg PO HS tablet 02/22/16 Budesonide/Formeterol Fumarate [SYMBICORT 160/4.5mcg -] 2 puff IH BID inhaler 02/22/16 Lisinopril [Prinivil] 10 mg PO DAILY tablet 02/22/16 Nitroglycerin Sublingual [Nitrostat -] 0.4 mg SL Q5M PRN #30 tab 02/22/16 Ranolazine [Ranexa -] 500 mg PO BID tab 02/22/16 Aclidinium [place] [Tudorza -] 1 puff IH BID #1 inhaler 05/28/16 Amox-Tr/K Cl [Augmentin 875-125mg Tablet -] 1 tab PO BID@0800,1730 #8 tablet Docusate Sodium [Colace -] 100 mg PO TID #90 cap 05/28/16 Furosemide [Lasix -] 40 mg PO DAILY #30 tablet 05/28/16 Guaifenesin [Robitussin -] 10 ml PO Q4H PRN #0 05/28/16 Isosorbide Mononitrate [Imdur -] 30 mg PO DAILY #30 tab MDD 1 05/28/16 Nicotine Patch [Nicoderm Patch -] 14 mg TD DAILY #15 patch 05/28/16 Prednisone [Deltasone -] 30 mg PO DAILY #30 tablet 05/28/16 Roflumilast [Daliresp -] 500 mcg PO DAILY #30 tablet 05/28/16 Verapamil HCl ER [Calan Sr -] 120 mg PO DAILY #30 tab 05/28/16 Family Disease History - Family Disease History Family Disease History: CA: Father (widespread, unsure of which type), Other: Mother ( of brain hemorrhage after trauma) Physical Exam-GI Vital Signs: Vital Signs Temperature 98.2 F 06/07/16 15:00 Pulse Rate 77 06/07/16 17:00 Respiratory Rate 21 06/07/16 18:43 Blood Pressure 108/56 06/07/16 17:00 O2 Sat by Pulse Oximetry (%) 99 06/07/16 18:23 Constitutional: Yes: Anxious, Thin HENT: Yes: Normocephalic Cardiovascular: Yes: Regular Rate and Rhythm Respiratory: Yes: CTA Bilaterally Gastrointestinal Inspection: Yes: WNL ...Auscultate: Yes: Normoactive Bowel Sounds ...Palpate: Yes: Soft. No: Tenderness ...Percussion: Yes: Dullness Neurological: Yes: Alert Labs: CBC, BMP 06/07/16 05:15 06/07/16 05:15 INR, PTT INR 1.06 (0.82-1.09) 06/07/16 05:15 Assessment/Plan Patient with anemia of chronic dz secondary to sepsis and inflammation. Trace g (+) but poor candidate for procedures. Would consider only if catastrophic bleed At this tiem, transfuse as necessary to maintain Hgb >9. PPI On ASA, Lovenox and prednisone concurrently Consider d/c ASA for now
[2016-06-07] MEDS ORDERED: PT OWN MED DRAWER 7, Y5N ONE (21:16)
[2016-06-07] MEDS: predniSONE 20 MG TABLET (UD) NGT SCH (21:32)
[2016-06-07] MEDS: ATORVASTATIN CA 80 MG TABLET (FP) PO SCH (21:32)
[2016-06-07] MEDS ORDERED: predniSONE 20 MG TABLET (UD) PO SCH (22:00)
[2016-06-08] MEDS: PIPERACILLIN/TAZOB 3.375 GM 50 ML IVPB SCH ×2 (02:00→09:02)
[2016-06-08] MEDS ORDERED: PT OWN MED DRAWER 7, Y5N ONE ×5 (03:18→21:45)
[2016-06-08] MEDS: ENALAPRIL MALEATE 2.5 MG TABLET (FP) NGT SCH ×4 (06:00→17:35)
[2016-06-08] MEDS: hydrALAZINE HCL 10 MG TABLET NGT SCH ×3 (06:00→22:06)
[2016-06-08 06:08] LABS: MCHC 31.7 g/dl (32.0-36.0); MEAN CELL VOLUME 72.6 fl (80-96); MEAN PLT VOLUME 9.1 fl (7.5-11.1); PLATELET COUNT 185 K/MM3 (134-434); RDW 24.4 % (11.6-15.6); WHITE BLOOD COUNT 9.5 K/mm3 (4.0-10.0)
[2016-06-08 06:40] LABS: ALBUMIN 1.8 g/dl (3.4-5.0); ANION GAP 10 (8-16); BILIRUBIN,TOTAL 0.4 mg/dL (0.2-1.0); CALCIUM 8.1 mg/dL (8.5-10.1); CO2 31 mmol/L (21-32); CREATININE 0.5 mg/dL (0.55-1.02); GLUCOSE,RANDOM 229 mg/dL (74-106); SGOT/AST 27 U/L (15-37); SGPT/ALT 34 U/L (12-78); TOT PROT 4.9 g/dl (6.4-8.2)
[2016-06-08 06:41] LABS: ALK PHOS 50 U/L (45-117)
[2016-06-08 07:31] LABS: ARTERIAL BLD GAS O2 SATURATION 93.8 % (90-98.9); ARTERIAL BLOOD GAS BASE EXCESS 8.9 meq/l (-2-2); ARTERIAL BLOOD GAS HCO3 33.4 meq/L (22-26); ARTERIAL BLOOD GAS pH 7.47 (7.35-7.45)
[2016-06-08 07:33] LABS: ALLENS TEST POSITIVE; ART PUNCT SITE RIGHT RADIAL; PT. ON O2? YES
[2016-06-08 07:34] LABS: LPM/O2% 30%; MECH. VENT. YES; TYPE OF O2 VENT; VENT RATE 14; VT/PRESS 400
[2016-06-08 07:35] LABS: ARTERIAL BLOOD GAS PO2 69.1 mmHg (70-100)
[2016-06-08] MEDS: INSULIN SLIDING SCALE (NOVOLOG) 1 VIAL SQ SCH ×3 (07:48→16:53)
--- NOTE | 2016-06-08 08:35 | PN ---
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, Physician Chief Complaint: intubated Refused trach History of Present Illness: TELE: short self limited PSVT - Current Medication List Current Medications: Active Medications Acetaminophen (Tylenol -) 650 mg PO Q4H PRN PRN Reason: FEVER OR PAIN Last Admin: 06/07/16 12:06 Dose: 650 mg Aspirin (Asa -) 81 mg NGT DAILY [facility] Last Admin: 06/07/16 09:36 Dose: 81 mg Atorvastatin Calcium (Lipitor -) 80 mg PO HS [facility] Last Admin: 06/07/16 21:32 Dose: 80 mg Diltiazem HCl (Cardizem -) 30 mg PO QID [facility] Last Admin: 06/07/16 21:32 Dose: 30 mg Docusate Sodium (Colace -) 100 mg PO DAILY [facility] Last Admin: 06/07/16 09:37 Dose: Not Given Enalapril Maleate (Vasotec -) 1.25 mg NGT Q6HPO [facility] Last Admin: 06/08/16 06:00 Dose: 1.25 mg Enoxaparin Sodium (Lovenox -) 40 mg SQ DAILY [facility] Last Admin: 06/07/16 09:35 Dose: 40 mg Hydralazine HCl (Apresoline -) 10 mg NGT TID [facility] Last Admin: 06/08/16 06:00 Dose: 10 mg Piperacillin Sod/Tazobactam Sod (Zosyn 3.375gm Ivpb (Pre-Docked)) 50 mls @ 100 mls/hr IVPB Q8H-IV [facility] PRN Reason: Protocol Last Admin: 06/08/16 02:00 Dose: 100 mls/hr Fentanyl 500 mcg/ Dextrose 100 mls @ 15 mls/hr IVPB TITR YEISON; 75 MCG/HR PRN Reason: Protocol Last Admin: 06/07/16 16:02 Dose: Not Given Insulin Aspart (Novolog Vial Sliding Scale -) 1 vial SQ TIDAC [facility] PRN Reason: Protocol Last Admin: 06/08/16 07:48 Dose: 2 units Nicotine (Nicoderm Patch -) 14 mg TD DAILY [facility] Last Admin: 06/07/16 09:37 Dose: Not Given Pantoprazole Sodium (Protonix 40mg Ivpb (Pre-Docked)) 40 mg IVPB DAILY [facility] Last Admin: 06/07/16 09:36 Dose: 40 mg Prednisone (Deltasone -) 20 mg NGT BID [facility] Last Admin: 06/07/16 21:32 Dose: 20 mg - Objective Vital Signs: Vital Signs Temperature 98.8 F 06/08/16 08:00 Pulse Rate 74 06/08/16 08:00 Respiratory Rate 17 06/08/16 08:00 Blood Pressure 150/54 06/08/16 08:00 O2 Sat by Pulse Oximetry (%) 99 06/07/16 18:23 Cardiovascular: Yes: Regular Rate and Rhythm Respiratory: Yes: Other (decreased breath sounds at bases) Gastrointestinal: Yes: Soft Edema: No Neurological: Yes: Alert Labs: CBC, BMP 06/08/16 05:10 06/08/16 05:10 INR, PTT INR 1.06 (0.82-1.09) 06/07/16 05:15 Laboratory Tests 06/08/16 06/08/16 06/08/16 05:10 05:10 07:15 WBC 9.5 Hct 30.4 L Plt Count 185 ABG pH 7.47 H ABG pCO2 at Pt Temp 47.1 H ABG pO2 at Pt Temp 69.1 L Oxygen Flow Rate 30% Sodium 143 Potassium 3.8 Creatinine 0.5 L - ....Imaging EKG: Image Reviewed Assessment/Plan Assessment/Plan +Influenza Acute respiratory failure Worsening anemia NSTEMI History breast cancer, lung mass with negative bx COPD, chronic with chronic hypoxemia Mild PSVT Chronic diastolic CHF Carotid stenosis s/p CEA REC: 1. Acute respiratory failure: -+ influenza -re-intubated -pulm to evaluate re vent management, refused trach- psych consult planned. 2. Anemia: -stool guaiac -Follow H/H -appropriate bump in H/H s/p transfusion 3. NSTEMI: -in setting of acute illness, acute resp failure -suspected underlying CAD -has refused cath on multiple occasions -Repeat echo w/ normal LV fxn. Mild -Rate control of PSVT with Verapamil -ASA 81mg as tolerated.
[2016-06-08] MEDS ORDERED: SODIUM CHLORIDE 250 ML IV STA (08:52)
[2016-06-08] MEDS: PANTOPRAZOLE SODIUM 40 MG/100 ML PRE-DOCKED IVPB SCH (09:02)
[2016-06-08] MEDS: ASPIRIN 81 MG CHEWABLE TABLETS NGT SCH (09:05)
[2016-06-08] MEDS: predniSONE 20 MG TABLET (UD) NGT SCH ×2 (09:06→22:06)
[2016-06-08] MEDS: ENOXAPARIN NA (PORCINE) 40 MG/0.4 ML DISP.SYRIN SQ SCH (09:06)
[2016-06-08] MEDS: NICOTINE 14 MG/24 HOURS TOPICAL PATCH TD SCH (09:06)
[2016-06-08] MEDS: dilTIAZem HCL 30 MG TABLET (FP) PO SCH ×4 (09:16→22:06)
[2016-06-08] MEDS: DOCUSATE SODIUM 100 MG CAPSULE (FP) PO SCH (09:24)
[2016-06-08] MEDS ORDERED: ALBUTEROL SO4 0.083% IH SOL 2.5 MG/3 ML VIAL.NEB. NEB PRN (10:19)
[2016-06-08 11:22] LABS: URINE APPEARANCE CLOUDY; URINE BILIRUBIN NEGATIVE (NEGATIVE); URINE COLOR RED; URINE GLUCOSE (UA) 1+ (NEGATIVE); URINE KETONE NEGATIVE (NEGATIVE); URINE NITRITE NEGATIVE (NEGATIVE); URINE UROBILINOGEN NEGATIVE E.U./dl (0.2-1.0)
[2016-06-08] MEDS: ALBUTEROL SO4 2.5/IPRATROPIUM 0.5 INH SOL 3 ML VIAL.NEB. NEB SCH ×3 (11:27→18:45)
[2016-06-08 11:29] LABS: URINE BLOOD 3+ (NEGATIVE); URINE LEUK ESTERASE 2+ (NEGATIVE); URINE PROTEIN 2+ (NEGATIVE)
[2016-06-08 11:55] LABS: URINE MUCUS FEW; URINE RBC 4284 /hpf (0-3); URINE WBC 75 /hpf (3-5); YEAST MANY
--- NOTE | 2016-06-08 12:12 | PN ---
Teaching Attending Note Name of Resident: Conrad Pagan ATTENDING PHYSICIAN STATEMENT I saw and evaluated the patient. I reviewed the resident's note and discussed the case with the resident. I agree with the resident's findings and plan as documented. SUBJECTIVE: Pt seen and examined in the ICU. Remains awake, intubated. States breathing is about the same. Some lower abdominal pain but no nausea, vomiting. +soft BM. OBJECTIVE: Last Vital Signs Temp Pulse Resp BP Pulse Ox 98.6 F 72 18 140/59 95 06/08/16 10:00 06/08/16 10:34 06/08/16 11:57 06/08/16 10:00 06/08/16 10:35 Intake & Output 06/05/16 06/06/16 06/07/16 06/08/16 23:59 23:59 23:59 23:59 Intake Total 1886 1820 670 650 Output Total 850 700 650 450 Balance 1036 1120 20 200 Weight 134 lb 7.712 oz 131 lb 9 oz 132 lb 4.438 oz 129 lb 6.581 oz Gen: intubated, awake Heart: RRR Lung: scattered rhonchi Abd: soft, nontender Ext: no edema CBC, BMP 06/08/16 05:10 06/08/16 05:10 Active Medications Acetaminophen (Tylenol -) 650 mg PO Q4H PRN PRN Reason: FEVER OR PAIN Last Admin: 06/07/16 12:06 Dose: 650 mg Albuterol Sulfate (Ventolin 0.083% Nebulizer Soln -) 1 amp NEB Q4H PRN PRN Reason: SHORT OF BREATH/WHEEZING Albuterol/Ipratropium (Duoneb -) 1 amp NEB QIDR [facility] Last Admin: 06/08/16 11:27 Dose: 1 amp Aspirin (Asa -) 81 mg NGT DAILY [facility] Last Admin: 06/08/16 09:05 Dose: 81 mg Atorvastatin Calcium (Lipitor -) 80 mg PO HS [facility] Last Admin: 06/07/16 21:32 Dose: 80 mg Diltiazem HCl (Cardizem -) 30 mg PO QID [facility] Last Admin: 06/08/16 09:16 Dose: 30 mg Docusate Sodium (Colace -) 100 mg PO DAILY [facility] Last Admin: 06/08/16 09:24 Dose: Not Given Enalapril Maleate (Vasotec -) 1.25 mg NGT Q6HPO [facility] Last Admin: 06/08/16 06:00 Dose: 1.25 mg Enoxaparin Sodium (Lovenox -) 40 mg SQ DAILY [facility] Last Admin: 06/08/16 09:06 Dose: 40 mg Hydralazine HCl (Apresoline -) 10 mg NGT TID [facility] Last Admin: 06/08/16 06:00 Dose: 10 mg Piperacillin Sod/Tazobactam Sod (Zosyn 3.375gm Ivpb (Pre-Docked)) 50 mls @ 100 mls/hr IVPB Q8H-IV [facility] PRN Reason: Protocol Last Admin: 06/08/16 09:02 Dose: 100 mls/hr Fentanyl 500 mcg/ Dextrose 100 mls @ 15 mls/hr IVPB TITR [facility]; 75 MCG/HR PRN Reason: Protocol Last Admin: 06/07/16 16:02 Dose: Not Given Insulin Aspart (Novolog Vial Sliding Scale -) 1 vial SQ TIDAC [facility] PRN Reason: Protocol Last Admin: 06/08/16 07:48 Dose: 2 units Nicotine (Nicoderm Patch -) 14 mg TD DAILY [facility] Last Admin: 06/08/16 09:06 Dose: 14 mg Pantoprazole Sodium (Protonix 40mg Ivpb (Pre-Docked)) 40 mg IVPB DAILY [facility] Last Admin: 06/08/16 09:02 Dose: 40 mg Prednisone (Deltasone -) 40 mg NGT BID [facility] ASSESSMENT AND PLAN: Acute on Chronic Hypoxic and Hypercapneic Respiratory Failure Influenza A Acute COPD Exacerbation CAD +Troponins/Acute NSTEMI Lactic Acidosis resolved h/o Breast Ca Lung Nodules with recent biopsy showing necrotizing granulomas Smoker - continue antibiotics - inhaled bronchodilators - continue prednisone - O2 to keep SpO2 >90% - spontaneous breathing trials as tolerated - DVT/GI prophylaxis - continue ICU monitoring - discussed with pt possible tracheostomy, she will continue to consider
[2016-06-08] MEDS: FENTANYL INJECTION 500 MCG in DEXTROSE 5%-WATER - 90 ML IVPB SCH (14:30)
--- NOTE | 2016-06-08 16:17 | PN ---
Physical Exam: SUBJECTIVE: Patient seen and examined at bedside in the ICU. She's still intubated and could not tolerate CPAP this AM. Per nurse, no acute event overnight. OBJECTIVE: Reintubated (day 3) on mechanical ventilation: RR 14, TV 400, FiO2 30%, PEEP 5 Not on pressor or sedation Vital Signs Period Temp Pulse Resp BP Sys/Rasheed Pulse Ox Last 24 Hr 98.3 F-99.2 F 72-85 16-24 108-154/46-72 95-100 GENERAL: AAO x 3, not in any distress HEAD: AT, NC EYES: Pupils equal, round and reactive to light, sclera anicteric, conjunctiva clear EARS, NOSE, THROAT: nares patent oropharynx clear without exudates LUNGS: bilateral rhonchi HEART: RRR, S1 and S2, ejection murmur, rub ABDOMEN: +bs, soft, non-tender, no rebound, guarding EXTREMITIES: No peripheral edema. ABG Results ABG pH 7.47 (7.35-7.45) H 06/08/16 07:15 ABG pCO2 at Pt Temp 47.1 mmHg (35-45) H 06/08/16 07:15 ABG pO2 at Pt Temp 69.1 mmHg (70-100) L 06/08/16 07:15 ABG HCO3 33.4 meq/L (22-26) H 06/08/16 07:15 ABG O2 Sat (Measured) 93.8 % (90-98.9) 06/08/16 07:15 ABG O2 Content 12.7 % vol (15-22) L 06/08/16 07:15 ABG Base Excess 8.9 meq/l (-2-2) H 06/08/16 07:15 CBCD WBC 9.5 K/mm3 (4.0-10.0) 06/08/16 05:10 RBC 4.19 M/mm3 (3.60-5.2) 06/08/16 05:10 Hgb 9.7 GM/dL (10.7-15.3) L 06/08/16 05:10 Hct 30.4 % (32.4-45.2) L 06/08/16 05:10 MCV 72.6 fl (80-96) L 06/08/16 05:10 MCHC 31.7 g/dl (32.0-36.0) L 06/08/16 05:10 RDW 24.4 % (11.6-15.6) H 06/08/16 05:10 Plt Count 185 K/MM3 (134-434) 06/08/16 05:10 MPV 9.1 fl (7.5-11.1) 06/08/16 05:10 CMP Sodium 143 mmol/L (136-145) 06/08/16 05:10 Potassium 3.8 mmol/L (3.5-5.1) 06/08/16 05:10 Chloride 102 mmol/L (98-107) 06/08/16 05:10 Carbon Dioxide 31 mmol/L (21-32) 06/08/16 05:10 Anion Gap 10 (8-16) 06/08/16 05:10 BUN 23 mg/dL (7-18) H 06/08/16 05:10 Creatinine 0.5 mg/dL (0.55-1.02) L 06/08/16 05:10 Creat Clearance w eGFR > 60 (>60) 06/08/16 05:10 Calcium 8.1 mg/dL (8.5-10.1) L 06/08/16 05:10 Total Bilirubin 0.4 mg/dL (0.2-1.0) 06/08/16 05:10 AST 27 U/L (15-37) D 06/08/16 05:10 ALT 34 U/L (12-78) D 06/08/16 05:10 Alkaline Phosphatase 50 U/L (45-117) 06/08/16 05:10 Total Protein 4.9 g/dl (6.4-8.2) L 06/08/16 05:10 Albumin 1.8 g/dl (3.4-5.0) L 06/08/16 05:10 Intake & Output 06/05/16 06/06/16 06/07/16 06/08/16 23:59 23:59 23:59 23:59 Intake Total 1886 6281 567 5442 Output Total 850 700 650 700 Balance 1036 1120 20 350 Weight 61 kg 59.676 kg 60 kg 58.7 kg Active Medications Generic Name Dose Route Start Last Admin Trade Name Freq PRN Reason Stop Dose Admin Acetaminophen 650 mg 06/04/16 02:00 06/07/16 12:06 Tylenol - PO 650 mg Q4H PRN Administration FEVER OR PAIN Albuterol Sulfate 1 amp 06/08/16 10:19 Ventolin 0.083% Nebulizer Soln - NEB Q4H PRN SHORT OF BREATH/WHEEZING Albuterol/Ipratropium 1 amp 06/08/16 10:00 06/08/16 11:27 Duoneb - NEB 1 amp QIDR [facility] Administration Aspirin 81 mg 06/01/16 17:15 06/08/16 09:05 Asa - NGT 81 mg DAILY [facility] Administration Atorvastatin Calcium 80 mg 05/31/16 22:00 06/07/16 21:32 Lipitor - PO 80 mg HS [facility] Administration Diltiazem HCl 30 mg 06/07/16 14:00 06/08/16 13:38 Cardizem - PO 30 mg QID [facility] Administration Docusate Sodium 100 mg 05/31/16 10:00 06/08/16 09:24 Colace - PO Not Given DAILY [facility] Enalapril Maleate 1.25 mg 06/07/16 14:00 06/08/16 12:23 Vasotec - NGT 1.25 mg Q6HPO [facility] Administration Enoxaparin Sodium 40 mg 06/02/16 10:00 06/08/16 09:06 Lovenox - SQ 40 mg DAILY [facility] Administration Hydralazine HCl 10 mg 06/07/16 14:00 06/08/16 13:18 Apresoline - NGT 10 mg TID [facility] Administration Piperacillin Sod/Tazobactam Sod 50 mls @ 100 mls/hr 06/01/16 16:19 06/08/16 09: 02 Zosyn 3.375gm Ivpb (Pre-Docked) IVPB 100 mls/hr Q8H-IV [facility] Administration Protocol Fentanyl 500 mcg/ Dextrose 100 mls @ 15 mls/hr 06/05/16 14:30 06/08/16 14:30 IVPB Not Given TITR [facility] Protocol 75 MCG/HR Insulin Aspart 1 vial 05/31/16 07:00 06/08/16 12:00 Novolog Vial Sliding Scale - SQ 2 units TIDAC [facility] Administration Protocol Nicotine 14 mg 05/31/16 10:00 06/08/16 09:06 Nicoderm Patch - TD 14 mg DAILY [facility] Administration Pantoprazole Sodium 40 mg 05/31/16 10:00 06/08/16 09:02 Protonix 40mg Ivpb (Pre-Docked) IVPB 40 mg DAILY [facility] Administration Prednisone 40 mg 06/08/16 10:21 Deltasone - NGT BID [facility] Microbiology 05/30/16 23:30 Nasopharyngeal Swab Influenza Types A positive Imaging CXR on 06/08: No change CXR on 06/07: No significant change CXR on 06/06: Increasing pulmonary changes. Left upper lobe nodule. Stable tubes and catheters CXR on 06/05: bibasilar changes with large heart but slightly less congestive findings. The left upper lobe nodule which is better seen on CT from 05/30/2016 ECHO: normal LV function ASSESSMENT/PLAN: 75 yo F h/o COPD with chronic bronchitis on home O2, HTN, HLD, CHF, CAD, stable AAA, left breast CA s/p lumpectomy and radiation therapy, remote history of intracranial bleed admitted to the ICU for acute on chronic hypercapneic respiratory failure in the setting of COPD and CHF exacerbation and flu. Respiratory: acute on chronic hypercapneic respiratory failure - Reintubated on Sat. due to acute respiratory distress * Patient denies trach * Psy consult to re-assess decision making capacity - Nebulizers YEISON and PRN - Predisone 40mg NGT BID - Lasix prn - SBT as tolerated ID: Sepsis 2/2 influenza A - Completed tamiflu zosyn and azitromycin courses - Blood and sputum cultures negative to date Cardiac: NSTEMI vs. Demand ischemia; HTN - Hold ASA due to dark stool - SVT on cardiazem - Vasotec and hydralazine NGT for BP control Heme: Microcytic anemia - HGB stable - Monitor H&H - Transfuse if < 9 per GI FEN - No IVF indicated - Normal lytes, cont. to monitor - Restarted Tube feed osmolite Prophylaxis - DVT: hold lovenox due to possible GI bleed - GI: daily PPI Disposition - Cont. to monitor in ICU - Family unreachable, will obtain psy eval on pt's decision making capacity Code status - Full code Visit type - Emergency Visit Emergency Visit: No - New Patient This patient is new to me today: No - Critical Care Critical Care patient: Yes Total Critical Care Time (in minutes): 35 Critical Care Statement: The care of this patient involved high complexity decision making to prevent further life threatening deterioration of the patient 's condition and/or to evalute & treat vital organ system(s) failure or risk of failure.
--- NOTE | 2016-06-08 16:59 | PN ---
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, Physician History of Present Illness: INTUBATED AWAKE - Current Medication List Current Medications: Active Medications Acetaminophen (Tylenol -) 650 mg PO Q4H PRN PRN Reason: FEVER OR PAIN Last Admin: 06/07/16 12:06 Dose: 650 mg Albuterol Sulfate (Ventolin 0.083% Nebulizer Soln -) 1 amp NEB Q4H PRN PRN Reason: SHORT OF BREATH/WHEEZING Albuterol/Ipratropium (Duoneb -) 1 amp NEB QIDR [facility] Last Admin: 06/08/16 11:27 Dose: 1 amp Atorvastatin Calcium (Lipitor -) 80 mg PO HS [facility] Last Admin: 06/07/16 21:32 Dose: 80 mg Diltiazem HCl (Cardizem -) 30 mg PO QID [facility] Last Admin: 06/08/16 13:38 Dose: 30 mg Docusate Sodium (Colace -) 100 mg PO DAILY [facility] Last Admin: 06/08/16 09:24 Dose: Not Given Enalapril Maleate (Vasotec -) 1.25 mg NGT Q6HPO [facility] Last Admin: 06/08/16 12:23 Dose: 1.25 mg Enoxaparin Sodium (Lovenox -) 40 mg SQ DAILY [facility] Last Admin: 06/08/16 09:06 Dose: 40 mg Hydralazine HCl (Apresoline -) 10 mg NGT TID [facility] Last Admin: 06/08/16 13:18 Dose: 10 mg Fentanyl 500 mcg/ Dextrose 100 mls @ 15 mls/hr IVPB TITR [facility]; 75 MCG/HR PRN Reason: Protocol Last Admin: 06/08/16 14:30 Dose: Not Given Insulin Aspart (Novolog Vial Sliding Scale -) 1 vial SQ TIDAC [facility] PRN Reason: Protocol Last Admin: 06/08/16 16:53 Dose: 2 units Nicotine (Nicoderm Patch -) 14 mg TD DAILY [facility] Last Admin: 06/08/16 09:06 Dose: 14 mg Pantoprazole Sodium (Protonix 40mg Ivpb (Pre-Docked)) 40 mg IVPB DAILY [facility] Last Admin: 06/08/16 09:02 Dose: 40 mg Prednisone (Deltasone -) 40 mg NGT BID [facility] - Objective Vital Signs: Vital Signs Temperature 98.0 F 06/08/16 16:00 Pulse Rate 76 06/08/16 16:00 Respiratory Rate 24 06/08/16 16:15 Blood Pressure 142/76 06/08/16 16:00 O2 Sat by Pulse Oximetry (%) 95 06/08/16 10:35 Constitutional: Yes: No Distress HENT: Yes: Atraumatic Neck: Yes: Supple Cardiovascular: Yes: Regular Rate and Rhythm Respiratory: Yes: CTA Bilaterally Gastrointestinal: Yes: Normal Bowel Sounds Extremities: Yes: WNL Neurological: Yes: Alert, Oriented Labs: CBC, BMP 06/08/16 05:10 06/08/16 05:10 INR, PTT INR 1.06 (0.82-1.09) 06/07/16 05:15 Problem List - Problems (1) Respiratory failure Code(s): J96.90 - RESPIRATORY FAILURE, UNSP, UNSP W HYPOXIA OR HYPERCAPNIA Qualifiers: Chronicity: acute Respiratory failure complication: hypoxia and hypercapnia Qualified Code(s): J96.01 - Acute respiratory failure with hypoxia (2) Chronic respiratory failure with hypoxia Code(s): J96.11 - CHRONIC RESPIRATORY FAILURE WITH HYPOXIA (3) CAD (coronary artery disease) Code(s): I25.10 - ATHSCL HEART DISEASE OF [place] CORONARY ARTERY W/O ANG PCTRS (4) COPD (chronic obstructive pulmonary disease) Code(s): J44.9 - CHRONIC OBSTRUCTIVE PULMONARY DISEASE, UNSPECIFIED (5) Chronic diastolic CHF (congestive heart failure) Code(s): I50.32 - CHRONIC DIASTOLIC (CONGESTIVE) HEART FAILURE (6) HLD (hyperlipidemia) Code(s): E78.5 - HYPERLIPIDEMIA, UNSPECIFIED Qualifiers: Hyperlipidemia type: unspecified Qualified Code(s): E78.5 - Hyperlipidemia, unspecified (7) HTN (hypertension) Code(s): I10 - ESSENTIAL (PRIMARY) HYPERTENSION Qualifiers: Hypertension type: essential hypertension Qualified Code(s): I10 - Essential (primary) hypertension (8) History of cigarette smoking Code(s): Z87.891 - PERSONAL HISTORY OF NICOTINE DEPENDENCE (9) Influenza Code(s): J11.1 - FLU DUE TO UNIDENTIFIED INFLUENZA VIRUS W OTH RESP MANIFEST Assessment/Plan 1.+Influenza treated 2.Acute respiratory failure intubated still , failed cpap iv steroids abx duo nebs 3.Worsening anemia 4.NSTEMI 5.History breast cancer, lung mass with negative bx 6.COPD, chronic with chronic hypoxemia 7.chf STABLE RECTAL BLEEDING CC 30 MIN
--- NOTE | 2016-06-08 17:55 | PN ---
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, Physician History of Present Illness: continues to be stable still not able to extubate - Current Medication List Current Medications: Active Medications Acetaminophen (Tylenol -) 650 mg PO Q4H PRN PRN Reason: FEVER OR PAIN Last Admin: 06/07/16 12:06 Dose: 650 mg Albuterol Sulfate (Ventolin 0.083% Nebulizer Soln -) 1 amp NEB Q4H PRN PRN Reason: SHORT OF BREATH/WHEEZING Albuterol/Ipratropium (Duoneb -) 1 amp NEB QIDR [facility] Last Admin: 06/08/16 11:27 Dose: 1 amp Atorvastatin Calcium (Lipitor -) 80 mg PO HS [facility] Last Admin: 06/07/16 21:32 Dose: 80 mg Diltiazem HCl (Cardizem -) 30 mg PO QID [facility] Last Admin: 06/08/16 17:35 Dose: 30 mg Docusate Sodium (Colace -) 100 mg PO DAILY [facility] Last Admin: 06/08/16 09:24 Dose: Not Given Enalapril Maleate (Vasotec -) 1.25 mg NGT Q6HPO [facility] Last Admin: 06/08/16 17:35 Dose: 1.25 mg Enoxaparin Sodium (Lovenox -) 40 mg SQ DAILY [facility] Last Admin: 06/08/16 09:06 Dose: 40 mg Hydralazine HCl (Apresoline -) 10 mg NGT TID [facility] Last Admin: 06/08/16 13:18 Dose: 10 mg Fentanyl 500 mcg/ Dextrose 100 mls @ 15 mls/hr IVPB TITR [facility]; 75 MCG/HR PRN Reason: Protocol Last Admin: 06/08/16 14:30 Dose: Not Given Insulin Aspart (Novolog Vial Sliding Scale -) 1 vial SQ TIDAC [facility] PRN Reason: Protocol Last Admin: 06/08/16 16:53 Dose: 2 units Nicotine (Nicoderm Patch -) 14 mg TD DAILY [facility] Last Admin: 06/08/16 09:06 Dose: 14 mg Pantoprazole Sodium (Protonix 40mg Ivpb (Pre-Docked)) 40 mg IVPB DAILY [facility] Last Admin: 06/08/16 09:02 Dose: 40 mg Prednisone (Deltasone -) 40 mg NGT BID [facility] - Objective Vital Signs: Vital Signs Temperature 98.0 F 06/08/16 16:00 Pulse Rate 76 03/29/17 16:00 Respiratory Rate 24 06/08/16 16:15 Blood Pressure 142/76 06/08/16 16:00 O2 Sat by Pulse Oximetry (%) 95 06/08/16 10:35 Constitutional: Yes: No Distress, Calm Cardiovascular: Yes: Regular Rate and Rhythm Respiratory: Yes: Intubated, Mechanically Ventilated Gastrointestinal: Yes: Normal Bowel Sounds, Soft, Other (ogtube) Musculoskeletal: Yes: WNL Extremities: Yes: WNL Neurological: Yes: Alert, Oriented Psychiatric: Yes: Alert Labs: CBC, BMP 06/08/16 05:10 06/08/16 05:10 INR, PTT INR 1.06 (0.82-1.09) 06/07/16 05:15 Assessment/Plan Problem List - Problems (1) Respiratory failure Code(s): J96.90 - RESPIRATORY FAILURE, UNSP, UNSP W HYPOXIA OR HYPERCAPNIA Qualifiers: Chronicity: acute Respiratory failure complication: hypoxia and hypercapnia Qualified Code(s): J96.01 - Acute respiratory failure with hypoxia (2) Chronic respiratory failure with hypoxia Code(s): J96.11 - CHRONIC RESPIRATORY FAILURE WITH HYPOXIA (3) CAD (coronary artery disease) Code(s): I25.10 - ATHSCL HEART DISEASE OF [place] CORONARY ARTERY W/O ANG PCTRS (4) COPD (chronic obstructive pulmonary disease) Assessment/Plan: intubated Code(s): J44.9 - CHRONIC OBSTRUCTIVE PULMONARY DISEASE, UNSPECIFIED (5) Chronic diastolic CHF (congestive heart failure) Code(s): I50.32 - CHRONIC DIASTOLIC (CONGESTIVE) HEART FAILURE (6) HLD (hyperlipidemia) Code(s): E78.5 - HYPERLIPIDEMIA, UNSPECIFIED Qualifiers: Hyperlipidemia type: unspecified Qualified Code(s): E78.5 - Hyperlipidemia, unspecified (7) HTN (hypertension) Code(s): I10 - ESSENTIAL (PRIMARY) HYPERTENSION Qualifiers: Hypertension type: essential hypertension Qualified Code(s): I10 - Essential (primary) hypertension (8) History of cigarette smoking Code(s): Z87.891 - PERSONAL HISTORY OF NICOTINE DEPENDENCE +Troponins/Acute NSTEMI Lactic Acidosis h/o Breast Ca 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
--- NOTE | 2016-06-08 18:27 | CON.PSY ---
Psychiatry Consult Chief Complaint: Seen for capacity to make decisions about Tracheostomy. - Previous Psychiatric Treatment Outpatient: None Inpatient: None - Previous Substance Abuse Treatment Outpatient: None Inpatient: None - Current Medications Current Medications: Active Medications Acetaminophen (Tylenol -) 650 mg PO Q4H PRN PRN Reason: FEVER OR PAIN Last Admin: 06/07/16 12:06 Dose: 650 mg Albuterol Sulfate (Ventolin 0.083% Nebulizer Soln -) 1 amp NEB Q4H PRN PRN Reason: SHORT OF BREATH/WHEEZING Albuterol/Ipratropium (Duoneb -) 1 amp NEB QIDR [facility] Last Admin: 06/08/16 11:27 Dose: 1 amp Atorvastatin Calcium (Lipitor -) 80 mg PO HS [facility] Last Admin: 06/07/16 21:32 Dose: 80 mg Diltiazem HCl (Cardizem -) 30 mg PO QID [facility] Last Admin: 06/08/16 17:35 Dose: 30 mg Docusate Sodium (Colace -) 100 mg PO DAILY [facility] Last Admin: 06/08/16 09:24 Dose: Not Given Enalapril Maleate (Vasotec -) 1.25 mg NGT Q6HPO [facility] Last Admin: 06/08/16 17:35 Dose: 1.25 mg Enoxaparin Sodium (Lovenox -) 40 mg SQ DAILY [facility] Last Admin: 06/08/16 09:06 Dose: 40 mg Hydralazine HCl (Apresoline -) 10 mg NGT TID [facility] Last Admin: 06/08/16 13:18 Dose: 10 mg Fentanyl 500 mcg/ Dextrose 100 mls @ 15 mls/hr IVPB TITR [facility]; 75 MCG/HR PRN Reason: Protocol Last Admin: 06/08/16 14:30 Dose: Not Given Insulin Aspart (Novolog Vial Sliding Scale -) 1 vial SQ TIDAC [facility] PRN Reason: Protocol Last Admin: 06/08/16 16:53 Dose: 2 units Nicotine (Nicoderm Patch -) 14 mg TD DAILY [facility] Last Admin: 06/08/16 09:06 Dose: 14 mg Pantoprazole Sodium (Protonix 40mg Ivpb (Pre-Docked)) 40 mg IVPB DAILY [facility] Last Admin: 06/08/16 09:02 Dose: 40 mg Prednisone (Deltasone -) 40 mg NGT BID [facility] - Allergies Allergies: Allergies Allergy/AdvReac Type Severity Reaction Status Date / Time No Known Allergies Allergy Verified 05/30/16 16:46 - Current Living Status Usual Living Arrangement: Alone - Current Mental Status Evaluation Appearance: Well Groomed Attitude: Cooperative - Affect Affect: Full Range Appropriateness: Appropriate to Content - Mood Mood: Angry - Speech/Language Expressive: Coherent - Psychomotor Activity Psychomotor Activity: Normal - Thought Process Thought Process: Intact - Thought Content Hallucinations: Absent Delusions: Absent - Self Perception Self Perception: No Impairment - Cognition Attention: Alert Orientation: Time Memory, Immediate Recall: Intact Memory, Short Term: 3/3 Memory, Remote with Promptin/3 - Concentration Serial Sevens Intact: No Simple Calculations Intact: No - Abstraction Proverb Interpretation: Intact Judgement: Minimally Impaired - Insight Insight: Intact - Impulse Control Impulse Control: Good Control - Suicidal Ideation Suicidal Ideation: No - Homicidal Ideation Homicidal Ideation: No Assessment/Plan 1)Patient has the functional capacity to make informed decisions at this time. 2)Ethics Consult.
[2016-06-08] MEDS ORDERED: MIDAZOLAM HCL 2 MG/2 ML SINGLE DOSE VIAL IVPUSH PRN (19:52)
[2016-06-08] MEDS: ATORVASTATIN CA 80 MG TABLET (FP) PO SCH (22:06)
[2016-06-08] MEDS: ACETAMINOPHEN 325 MG TABLET (FP) PO PRN (22:49)
[2016-06-08] MEDS ORDERED: morphine CARPU-JECT 4 MG/1 ML DISP.SYRIN ONE (23:53)
[2016-06-09] MEDS: ALBUTEROL SO4 2.5/IPRATROPIUM 0.5 INH SOL 3 ML VIAL.NEB. NEB SCH ×5 (00:04→23:38)
[2016-06-09] MEDS ORDERED: morphine CARPU-JECT 2 MG/1 ML DISP.SYRIN IVPUSH ONE (00:21)
[2016-06-09] MEDS: FENTANYL INJECTION 500 MCG in DEXTROSE 5%-WATER - 90 ML IVPB SCH ×2 (00:53→14:30)
[2016-06-09] MEDS: ENALAPRIL MALEATE 2.5 MG TABLET (FP) NGT SCH ×3 (00:57→12:10)
[2016-06-09 06:31] LABS: MCH 22.9 pg (25.7-33.7); MEAN CELL VOLUME 73.8 fl (80-96); MEAN PLT VOLUME 9.2 fl (7.5-11.1); PLATELET COUNT 187 K/MM3 (134-434); RDW 24.5 % (11.6-15.6); WHITE BLOOD COUNT 9.8 K/mm3 (4.0-10.0)
[2016-06-09 06:39] LABS: INR 1.02 (0.82-1.09); PROTHROMBIN TIME (PATIENT) 11.2 SEC (9.98-11.88)
[2016-06-09] MEDS: hydrALAZINE HCL 10 MG TABLET NGT SCH ×3 (06:39→22:08)
[2016-06-09 06:42] LABS: ACTIVATED PTT 28.3 SECONDS (26.9-34.4)
[2016-06-09 06:58] LABS: ALK PHOS 56 U/L (45-117); ANION GAP 7 (8-16); BILIRUBIN,TOTAL 0.4 mg/dL (0.2-1.0); CALCIUM 8.5 mg/dL (8.5-10.1); CO2 34 mmol/L (21-32); CREATININE 0.6 mg/dL (0.55-1.02); GLUCOSE,RANDOM 216 mg/dL (74-106); SGOT/AST 24 U/L (15-37); SGPT/ALT 31 U/L (12-78); TOT PROT 5.3 g/dl (6.4-8.2)
[2016-06-09] MEDS: INSULIN SLIDING SCALE (NOVOLOG) 1 VIAL SQ SCH ×3 (07:21→16:36)
[2016-06-09 07:30] LABS: ANISOCYTOSIS 2+; HYPOCHROMIA 1+; MICROCYTOSIS 2+
[2016-06-09 07:40] LABS: ARTERIAL BLD GAS O2 SATURATION 94.4 % (90-98.9); ARTERIAL BLOOD GAS BASE EXCESS 7.5 meq/l (-2-2); ARTERIAL BLOOD GAS HCO3 32.2 meq/L (22-26); ARTERIAL BLOOD GAS PO2 71.4 mmHg (70-100); ARTERIAL BLOOD GAS pH 7.44 (7.35-7.45)
[2016-06-09 07:41] LABS: ALLENS TEST POSITIVE; ART PUNCT SITE RIGHT RADIAL
[2016-06-09 07:42] LABS: LPM/O2% 30%; MECH. VENT. Y; PT. ON O2? YES; TYPE OF O2 VENT; VENT RATE 14; VT/PRESS 350
--- NOTE | 2016-06-09 08:36 | PN ---
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, Physician Chief Complaint: remains intubated TELE: NSR - Current Medication List Current Medications: Active Medications Acetaminophen (Tylenol -) 650 mg PO Q4H PRN PRN Reason: FEVER OR PAIN Last Admin: 06/08/16 22:49 Dose: 650 mg Albuterol Sulfate (Ventolin 0.083% Nebulizer Soln -) 1 amp NEB Q4H PRN PRN Reason: SHORT OF BREATH/WHEEZING Albuterol/Ipratropium (Duoneb -) 1 amp NEB QIDR [facility] Last Admin: 06/09/16 06:45 Dose: 1 amp Atorvastatin Calcium (Lipitor -) 80 mg PO HS [facility] Last Admin: 06/08/16 22:06 Dose: 80 mg Diltiazem HCl (Cardizem -) 30 mg PO QID [facility] Last Admin: 06/08/16 22:06 Dose: 30 mg Docusate Sodium (Colace -) 100 mg PO DAILY [facility] Last Admin: 06/08/16 09:24 Dose: Not Given Enalapril Maleate (Vasotec -) 1.25 mg NGT Q6HPO [facility] Last Admin: 06/09/16 06:39 Dose: 1.25 mg Enoxaparin Sodium (Lovenox -) 40 mg SQ DAILY [facility] Last Admin: 06/08/16 09:06 Dose: 40 mg Hydralazine HCl (Apresoline -) 10 mg NGT TID [facility] Last Admin: 06/09/16 06:39 Dose: 10 mg Fentanyl 500 mcg/ Dextrose 100 mls @ 15 mls/hr IVPB TITR [facility]; 75 MCG/HR PRN Reason: Protocol Last Admin: 06/09/16 00:53 Dose: 20 mls/hr Insulin Aspart (Novolog Vial Sliding Scale -) 1 vial SQ TIDAC [facility] PRN Reason: Protocol Last Admin: 06/09/16 07:21 Dose: 2 units Nicotine (Nicoderm Patch -) 14 mg TD DAILY [facility] Last Admin: 06/08/16 09:06 Dose: 14 mg Pantoprazole Sodium (Protonix 40mg Ivpb (Pre-Docked)) 40 mg IVPB DAILY [facility] Last Admin: 06/08/16 09:02 Dose: 40 mg Prednisone (Deltasone -) 40 mg NGT BID [facility] Last Admin: 06/08/16 22:06 Dose: 40 mg - Objective Vital Signs: Vital Signs Temperature 97.8 F 06/09/16 06:00 Pulse Rate 65 06/09/16 06:00 Respiratory Rate 20 06/09/16 07:46 Blood Pressure 155/52 06/09/16 06:00 O2 Sat by Pulse Oximetry (%) 95 06/08/16 10:35 HENT: Yes: Other (+ ETT) Cardiovascular: Yes: Regular Rate and Rhythm Respiratory: Yes: Other (= breath sounds no wheezing) Gastrointestinal: Yes: Soft Edema: No Labs: CBC, BMP 06/09/16 05:05 06/09/16 05:05 INR, PTT INR 1.02 (0.82-1.09) 06/09/16 05:05 Laboratory Tests 06/09/16 06/09/16 06/09/16 05:05 05:05 07:15 WBC 9.8 Hct 30.3 L Plt Count 187 ABG pH 7.44 ABG pCO2 at Pt Temp 47.7 H ABG O2 Sat (Measured) 94.4 Oxygen Flow Rate 30% Potassium 4.3 Creatinine 0.6 - ....Imaging EKG: Image Reviewed Assessment/Plan Assessment/Plan +Influenza Acute respiratory failure Worsening anemia NSTEMI History breast cancer, lung mass with negative bx COPD, chronic with chronic hypoxemia Mild PSVT Chronic diastolic CHF Carotid stenosis s/p CEA REC: 1. Acute respiratory failure: -+ influenza -re-intubated -pulm to evaluate re vent management, refused trach -ASA held in case trach done. 2. Anemia: -stool guaiac -Follow H/H -appropriate bump in H/H s/p transfusion 3. NSTEMI: -in setting of acute illness, acute resp failure -suspected underlying CAD -has refused cath on multiple occasions -Repeat echo w/ normal LV fxn. Mild -Rate control of PSVT with Verapamil
[2016-06-09] MEDS: dilTIAZem HCL 30 MG TABLET (FP) PO SCH ×4 (09:43→22:08)
[2016-06-09] MEDS: NICOTINE 14 MG/24 HOURS TOPICAL PATCH TD SCH (09:44)
[2016-06-09] MEDS: DOCUSATE SODIUM 100 MG CAPSULE (FP) PO SCH (09:44)
[2016-06-09] MEDS: predniSONE 20 MG TABLET (UD) NGT SCH ×2 (09:44→22:09)
[2016-06-09] MEDS: PANTOPRAZOLE SODIUM 40 MG/100 ML PRE-DOCKED IVPB SCH (09:44)
[2016-06-09] MEDS ORDERED: PT OWN MED DRAWER 7, Y5N ONE (12:09)
--- NOTE | 2016-06-09 14:13 | PN ---
Teaching Attending Note Name of Resident: Conrad Pagan ATTENDING PHYSICIAN STATEMENT I saw and evaluated the patient. I reviewed the resident's note and discussed the case with the resident. I agree with the resident's findings and plan as documented. SUBJECTIVE: Pt seen and examined in the ICU. Remains awake and intubated. Restless, frustrated, refusing to make any decisions on Trach. Still able to be extubated. Ethics consult to be called. CXR: ETT in position / no acute changes Intake & Output 06/06/16 06/07/16 06/08/16 06/09/16 23:59 23:59 23:59 23:59 Intake Total 8523 892 6333 600 Output Total 298 057 2757 750 Balance 1120 20 430 -150 Weight 131 lb 9 oz 132 lb 4.438 oz 129 lb 6.581 oz 133 lb 13.129 oz Last Vital Signs Temp Pulse Resp BP Pulse Ox 98.1 F 73 20 171/56 96 06/09/16 14:03 06/09/16 14:03 06/09/16 14:03 06/09/16 14:03 06/09/16 10:26 Active Medications Acetaminophen (Tylenol -) 650 mg PO Q4H PRN PRN Reason: FEVER OR PAIN Last Admin: 06/08/16 22:49 Dose: 650 mg Albuterol Sulfate (Ventolin 0.083% Nebulizer Soln -) 1 amp NEB Q4H PRN PRN Reason: SHORT OF BREATH/WHEEZING Albuterol/Ipratropium (Duoneb -) 1 amp NEB QIDR [facility] Last Admin: 06/09/16 11:57 Dose: 1 amp Atorvastatin Calcium (Lipitor -) 80 mg PO HS [facility] Last Admin: 06/08/16 22:06 Dose: 80 mg Diltiazem HCl (Cardizem -) 30 mg PO QID [facility] Last Admin: 06/09/16 13:53 Dose: 30 mg Docusate Sodium (Colace -) 100 mg PO DAILY [facility] Last Admin: 06/09/16 09:44 Dose: Not Given Enalapril Maleate (Vasotec -) 1.25 mg NGT Q6HPO [facility] Last Admin: 06/09/16 12:10 Dose: 1.25 mg Hydralazine HCl (Apresoline -) 10 mg NGT TID [facility] Last Admin: 06/09/16 13:53 Dose: 10 mg Fentanyl 500 mcg/ Dextrose 100 mls @ 15 mls/hr IVPB TITR [facility]; 75 MCG/HR PRN Reason: Protocol Last Admin: 06/09/16 00:53 Dose: 20 mls/hr Insulin Aspart (Novolog Vial Sliding Scale -) 1 vial SQ TIDAC [facility] PRN Reason: Protocol Last Admin: 06/09/16 10:52 Dose: 2 units Nicotine (Nicoderm Patch -) 14 mg TD DAILY [facility] Last Admin: 06/09/16 09:44 Dose: Not Given Pantoprazole Sodium (Protonix 40mg Ivpb (Pre-Docked)) 40 mg IVPB DAILY [facility] Last Admin: 06/09/16 09:44 Dose: 40 mg Prednisone (Deltasone -) 40 mg NGT BID [facility] Last Admin: 06/09/16 09:44 Dose: 40 mg Gen: intubated, awake Heart: RRR Lung: scattered rhonchi Abd: soft, nontender Ext: no edema Laboratory Results - last 24 hr 06/08/16 06/09/16 06/09/16 16:47 05:05 05:05 WBC 9.8 RBC 4.11 Hgb 9.4 L Hct 30.3 L MCV 73.8 L MCHC 31.0 L RDW 24.5 H Plt Count 187 MPV 9.2 Hypochromic-Microcytic 1+ Anisocytosis 2+ Microcytosis 2+ INR 1.02 PTT (Actin FS) 28.3 Puncture Site ABG pH ABG pCO2 at Pt Temp ABG pO2 at Pt Temp ABG HCO3 ABG O2 Sat (Measured) ABG O2 Content ABG Base Excess Rafi Test O2 Delivery Device Oxygen Flow Rate Vent Mode Vent Rate Mechanical Rate PEEP Pressure Support Vent Sodium Potassium Chloride Carbon Dioxide Anion Gap BUN Creatinine Creat Clearance w eGFR POC Glucometer [phone] Random Glucose Calcium Total Bilirubin AST ALT Alkaline Phosphatase Total Protein Albumin 06/09/16 06/09/16 06/09/16 05:05 07:15 10:49 WBC RBC Hgb Hct MCV MCHC RDW Plt Count MPV Hypochromic-Microcytic Anisocytosis Microcytosis INR PTT (Actin FS) Puncture Site Right radial ABG pH 7.44 ABG pCO2 at Pt Temp 47.7 H ABG pO2 at Pt Temp 71.4 ABG HCO3 32.2 H ABG O2 Sat (Measured) 94.4 ABG O2 Content 12.4 L ABG Base Excess 7.5 H Rafi Test Positive O2 Delivery Device Vent Oxygen Flow Rate 30% Vent Mode A/c Vent Rate 14 Mechanical Rate Y PEEP 5.0 Pressure Support Vent 350 Sodium 141 Potassium 4.3 Chloride 100 Carbon Dioxide 34 H Anion Gap 7 L BUN 19 H Creatinine 0.6 Creat Clearance w eGFR > 60 POC Glucometer [phone] Random Glucose 216 H Calcium 8.5 Total Bilirubin 0.4 AST 24 ALT 31 Alkaline Phosphatase 56 Total Protein 5.3 L Albumin 2.0 L ASSESSMENT AND PLAN: Acute on Chronic Hypoxic and Hypercapneic Respiratory Failure Influenza A Acute COPD Exacerbation CAD +Troponins/Acute NSTEMI Lactic Acidosis resolved h/o Breast Ca 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
--- NOTE | 2016-06-09 14:18 | PN ---
Physical Exam: SUBJECTIVE: Patient seen and examined at bedside in the ICU. She's still intubated and refused to be weaned. Per nurse, she is very upset and agitated since palliative care team talked to her. She's now refusing to be on CPAP and talk to anyone. OBJECTIVE: Vital Signs Period Temp Pulse Resp BP Sys/Rasheed Pulse Ox Last 24 Hr 97.8 F-98.6 F 65-94 14-27 125-186/51-87 96-98 GENERAL: AAO x 3, uncooperative, agitated HEAD: AT, NC EYES: Pupils equal, round and reactive to light, sclera anicteric, conjunctiva clear EARS, NOSE, THROAT: nares patent oropharynx clear without exudates LUNGS: bilateral rhonchi HEART: RRR, S1 and S2, ejection murmur, rub ABDOMEN: +bs, soft, non-tender, no rebound, guarding EXTREMITIES: No peripheral edema. ABG Results ABG pH 7.44 (7.35-7.45) 06/09/16 07:15 ABG pCO2 at Pt Temp 47.7 mmHg (35-45) H 06/09/16 07:15 ABG pO2 at Pt Temp 71.4 mmHg (70-100) 06/09/16 07:15 ABG HCO3 32.2 meq/L (22-26) H 06/09/16 07:15 ABG O2 Sat (Measured) 94.4 % (90-98.9) 06/09/16 07:15 ABG O2 Content 12.4 % vol (15-22) L 06/09/16 07:15 ABG Base Excess 7.5 meq/l (-2-2) H 06/09/16 07:15 CBCD WBC 9.8 K/mm3 (4.0-10.0) 06/09/16 05:05 RBC 4.11 M/mm3 (3.60-5.2) 06/09/16 05:05 Hgb 9.4 GM/dL (10.7-15.3) L 06/09/16 05:05 Hct 30.3 % (32.4-45.2) L 06/09/16 05:05 MCV 73.8 fl (80-96) L 06/09/16 05:05 MCHC 31.0 g/dl (32.0-36.0) L 06/09/16 05:05 RDW 24.5 % (11.6-15.6) H 06/09/16 05:05 Plt Count 187 K/MM3 (134-434) 06/09/16 05:05 MPV 9.2 fl (7.5-11.1) 06/09/16 05:05 CMP Sodium 141 mmol/L (136-145) 06/09/16 05:05 Potassium 4.3 mmol/L (3.5-5.1) 06/09/16 05:05 Chloride 100 mmol/L (98-107) 06/09/16 05:05 Carbon Dioxide 34 mmol/L (21-32) H 06/09/16 05:05 Anion Gap 7 (8-16) L 06/09/16 05:05 BUN 19 mg/dL (7-18) H 06/09/16 05:05 Creatinine 0.6 mg/dL (0.55-1.02) 06/09/16 05:05 Creat Clearance w eGFR > 60 (>60) 06/09/16 05:05 Calcium 8.5 mg/dL (8.5-10.1) 06/09/16 05:05 Total Bilirubin 0.4 mg/dL (0.2-1.0) 06/09/16 05:05 AST 24 U/L (15-37) 06/09/16 05:05 ALT 31 U/L (12-78) 06/09/16 05:05 Alkaline Phosphatase 56 U/L (45-117) 06/09/16 05:05 Total Protein 5.3 g/dl (6.4-8.2) L 06/09/16 05:05 Albumin 2.0 g/dl (3.4-5.0) L 06/09/16 05:05 Intake & Output 06/06/16 06/07/16 06/08/16 06/09/16 23:59 23:59 23:59 23:59 Intake Total 8471 802 5659 600 Output Total 879 597 8642 750 Balance 1120 20 430 -150 Weight 59.676 kg 60 kg 58.7 kg 60.7 kg Active Medications Generic Name Dose Route Start Last Admin Trade Name Freq PRN Reason Stop Dose Admin Acetaminophen 650 mg 06/04/16 02:00 06/08/16 22:49 Tylenol - PO 650 mg Q4H PRN Administration FEVER OR PAIN Albuterol Sulfate 1 amp 06/08/16 10:19 Ventolin 0.083% Nebulizer Soln - NEB Q4H PRN SHORT OF BREATH/WHEEZING Albuterol/Ipratropium 1 amp 06/08/16 10:00 06/09/16 11:57 Duoneb - NEB 1 amp QIDR [facility] Administration Atorvastatin Calcium 80 mg 05/31/16 22:00 06/08/16 22:06 Lipitor - PO 80 mg HS [facility] Administration Diltiazem HCl 30 mg 06/07/16 14:00 06/09/16 13:53 Cardizem - PO 30 mg QID [facility] Administration Docusate Sodium 100 mg 05/31/16 10:00 06/09/16 09:44 Colace - PO Not Given DAILY [facility] Enalapril Maleate 1.25 mg 06/07/16 14:00 06/09/16 12:10 Vasotec - NGT 1.25 mg Q6HPO [facility] Administration Hydralazine HCl 10 mg 06/07/16 14:00 06/09/16 13:53 Apresoline - NGT 10 mg TID [facility] Administration Fentanyl 500 mcg/ Dextrose 100 mls @ 15 mls/hr 06/05/16 14:30 06/09/16 00:53 IVPB 20 mls/hr TITR [facility] Administration Protocol 75 MCG/HR Insulin Aspart 1 vial 05/31/16 07:00 06/09/16 10:52 Novolog Vial Sliding Scale - SQ 2 units TIDAC [facility] Administration Protocol Nicotine 14 mg 05/31/16 10:00 06/09/16 09:44 Nicoderm Patch - TD Not Given DAILY [facility] Pantoprazole Sodium 40 mg 05/31/16 10:00 06/09/16 09:44 Protonix 40mg Ivpb (Pre-Docked) IVPB 40 mg DAILY [facility] Administration Prednisone 40 mg 06/08/16 10:21 06/09/16 09:44 Deltasone - NGT 40 mg BID [facility] Administration Microbiology 05/30/16 23:30 Nasopharyngeal Swab Influenza Types A positive Imaging CXR on 06/09: No change CXR on 06/08: No change ECHO: normal LV function ASSESSMENT/PLAN: 75 yo F h/o COPD with chronic bronchitis on home O2, HTN, HLD, CHF, CAD, stable AAA, left breast CA s/p lumpectomy and radiation therapy, remote history of intracranial bleed admitted to the ICU for acute on chronic hypercapneic respiratory failure in the setting of COPD and CHF exacerbation and flu. Respiratory: acute on chronic hypercapneic respiratory failure - Reintubated on Sat. due to acute respiratory distress * Patient refuses trach and weaning * Full decision making capacity per psy * Ethics committee consult - Nebulizers YEISON and PRN - Titrate Predisone 40mg NGT BID to 20mg - Stop daily ABG - CXR QOD ID: Sepsis 04/14 influenza A - Completed tamiflu zosyn and azitromycin courses - Afrebile and normal WBC Cardiac: NSTEMI vs. Demand ischemia; HTN - Hold ASA due to dark stool - SVT on cardiazem - Vasotec and hydralazine NGT for BP control Heme: Microcytic anemia - HGB stable - Monitor H&H - Transfuse if < 9 per GI FEN - No IVF indicated - Normal lytes, cont. to monitor - Tube feed osmolite Prophylaxis - DVT: hold lovenox due to possible GI bleed - GI: daily PPI Disposition - Cont. to monitor in ICU - Ethics committee on board to determine the next step Code status - Full code Visit type - Emergency Visit Emergency Visit: No - New Patient This patient is new to me today: No - Critical Care Critical Care patient: Yes Total Critical Care Time (in minutes): 35 Critical Care Statement: The care of this patient involved high complexity decision making to prevent further life threatening deterioration of the patient 's condition and/or to evalute & treat vital organ system(s) failure or risk of failure.
--- NOTE | 2016-06-09 16:34 | PN ---
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, Physician History of Present Illness: still intubated no complaints patient not tolerating weaning looks good otherwise - Current Medication List Current Medications: Active Medications Acetaminophen (Tylenol -) 650 mg PO Q4H PRN PRN Reason: FEVER OR PAIN Last Admin: 06/08/16 22:49 Dose: 650 mg Albuterol Sulfate (Ventolin 0.083% Nebulizer Soln -) 1 amp NEB Q4H PRN PRN Reason: SHORT OF BREATH/WHEEZING Albuterol/Ipratropium (Duoneb -) 1 amp NEB QIDR [facility] Last Admin: 06/09/16 11:57 Dose: 1 amp Atorvastatin Calcium (Lipitor -) 80 mg PO HS [facility] Last Admin: 06/08/16 22:06 Dose: 80 mg Diltiazem HCl (Cardizem -) 30 mg PO QID [facility] Last Admin: 06/09/16 13:53 Dose: 30 mg Docusate Sodium (Colace -) 100 mg PO DAILY [facility] Last Admin: 06/09/16 09:44 Dose: Not Given Enalapril Maleate (Vasotec -) 5 mg NGT BID [facility] Hydralazine HCl (Apresoline -) 10 mg NGT TID [facility] Last Admin: 06/09/16 13:53 Dose: 10 mg Fentanyl 500 mcg/ Dextrose 100 mls @ 15 mls/hr IVPB TITR [facility]; 75 MCG/HR PRN Reason: Protocol Last Admin: 06/09/16 14:30 Dose: Not Given Insulin Aspart (Novolog Vial Sliding Scale -) 1 vial SQ TIDAC [facility] PRN Reason: Protocol Last Admin: 06/09/16 10:52 Dose: 2 units Pantoprazole Sodium (Protonix 40mg Ivpb (Pre-Docked)) 40 mg IVPB DAILY [facility] Last Admin: 06/09/16 09:44 Dose: 40 mg Prednisone (Deltasone -) 40 mg NGT BID [facility] Last Admin: 06/09/16 09:44 Dose: 40 mg - Objective Vital Signs: Vital Signs Temperature 98.6 F 06/09/16 16:00 Pulse Rate 22 L 06/09/16 16:00 Respiratory Rate 23 06/09/16 16:05 Blood Pressure 175/60 06/09/16 16:00 O2 Sat by Pulse Oximetry (%) 96 06/09/16 10:26 Constitutional: Yes: No Distress, Calm Cardiovascular: Yes: Regular Rate and Rhythm Respiratory: Yes: Intubated, Mechanically Ventilated Gastrointestinal: Yes: Normal Bowel Sounds, Soft, Other (og tube) Musculoskeletal: Yes: WNL Extremities: Yes: WNL Integumentary: Yes: WNL Neurological: Yes: Alert, Oriented Psychiatric: Yes: Alert, Oriented Labs: CBC, BMP 06/09/16 05:05 06/09/16 05:05 INR, PTT INR 1.02 (0.82-1.09) 06/09/16 05:05 - ....Imaging Chest X-ray: Report Reviewed, Image Reviewed Assessment/Plan Problem List - Problems (1) Respiratory failure Code(s): J96.90 - RESPIRATORY FAILURE, UNSP, UNSP W HYPOXIA OR HYPERCAPNIA Qualifiers: Chronicity: acute Respiratory failure complication: hypoxia and hypercapnia Qualified Code(s): J96.01 - Acute respiratory failure with hypoxia (2) Chronic respiratory failure with hypoxia Code(s): J96.11 - CHRONIC RESPIRATORY FAILURE WITH HYPOXIA (3) CAD (coronary artery disease) Code(s): I25.10 - ATHSCL HEART DISEASE OF [place] CORONARY ARTERY W/O ANG PCTRS (4) COPD (chronic obstructive pulmonary disease) Assessment/Plan: intubated Code(s): J44.9 - CHRONIC OBSTRUCTIVE PULMONARY DISEASE, UNSPECIFIED (5) Chronic diastolic CHF (congestive heart failure) Code(s): I50.32 - CHRONIC DIASTOLIC (CONGESTIVE) HEART FAILURE (6) HLD (hyperlipidemia) Code(s): E78.5 - HYPERLIPIDEMIA, UNSPECIFIED Qualifiers: Hyperlipidemia type: unspecified Qualified Code(s): E78.5 - Hyperlipidemia, unspecified (7) HTN (hypertension) Code(s): I10 - ESSENTIAL (PRIMARY) HYPERTENSION Qualifiers: Hypertension type: essential hypertension Qualified Code(s): I10 - Essential (primary) hypertension (8) History of cigarette smoking Code(s): Z87.891 - PERSONAL HISTORY OF NICOTINE DEPENDENCE +Troponins/Acute NSTEMI Lactic Acidosis h/o Breast Ca Lung Nodules with recent biopsy showing necrotizing granulomas Smoker patient having purulent sputum wbc trending towards normal plan stable off of abx trach considered nutrition resp support rest as per icu mgmt stop zosyn continue weaning trials as tolerated cc time 40 min
--- NOTE | 2016-06-09 18:23 | PN ---
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, Physician History of Present Illness: INTUBATED AWAKE - Current Medication List Current Medications: Active Medications Acetaminophen (Tylenol -) 650 mg PO Q4H PRN PRN Reason: FEVER OR PAIN Last Admin: 06/08/16 22:49 Dose: 650 mg Albuterol Sulfate (Ventolin 0.083% Nebulizer Soln -) 1 amp NEB Q4H PRN PRN Reason: SHORT OF BREATH/WHEEZING Albuterol/Ipratropium (Duoneb -) 1 amp NEB QIDR [facility] Last Admin: 06/09/16 18:09 Dose: 1 amp Atorvastatin Calcium (Lipitor -) 80 mg PO HS [facility] Last Admin: 06/08/16 22:06 Dose: 80 mg Diltiazem HCl (Cardizem -) 30 mg PO QID [facility] Last Admin: 06/09/16 17:08 Dose: 30 mg Docusate Sodium (Colace -) 100 mg PO DAILY [facility] Last Admin: 06/09/16 09:44 Dose: Not Given Enalapril Maleate (Vasotec -) 5 mg NGT BID [facility] Hydralazine HCl (Apresoline -) 10 mg NGT TID [facility] Last Admin: 06/09/16 13:53 Dose: 10 mg Fentanyl 500 mcg/ Dextrose 100 mls @ 15 mls/hr IVPB TITR [facility]; 75 MCG/HR PRN Reason: Protocol Last Admin: 06/09/16 14:30 Dose: Not Given Insulin Aspart (Novolog Vial Sliding Scale -) 1 vial SQ TIDAC [facility] PRN Reason: Protocol Last Admin: 06/09/16 16:36 Dose: 2 units Pantoprazole Sodium (Protonix 40mg Ivpb (Pre-Docked)) 40 mg IVPB DAILY [facility] Last Admin: 06/09/16 09:44 Dose: 40 mg Prednisone (Deltasone -) 40 mg NGT BID [facility] Last Admin: 06/09/16 09:44 Dose: 40 mg - Objective Vital Signs: Vital Signs Temperature 98.2 F 06/09/16 18:00 Pulse Rate 17 L 06/09/16 18:00 Respiratory Rate 23 06/09/16 18:00 Blood Pressure 155/57 06/09/16 18:00 O2 Sat by Pulse Oximetry (%) 96 06/09/16 10:26 HENT: Yes: Atraumatic Neck: Yes: Supple Cardiovascular: Yes: Regular Rate and Rhythm Respiratory: Yes: CTA Bilaterally Gastrointestinal: Yes: Normal Bowel Sounds Extremities: Yes: WNL Labs: CBC, BMP 06/09/16 05:05 06/09/16 05:05 INR, PTT INR 1.02 (0.82-1.09) 06/09/16 05:05 Problem List - Problems (1) Respiratory failure Code(s): J96.90 - RESPIRATORY FAILURE, UNSP, UNSP W HYPOXIA OR HYPERCAPNIA Qualifiers: Chronicity: acute Respiratory failure complication: hypoxia and hypercapnia Qualified Code(s): J96.01 - Acute respiratory failure with hypoxia (2) Chronic respiratory failure with hypoxia Code(s): J96.11 - CHRONIC RESPIRATORY FAILURE WITH HYPOXIA (3) CAD (coronary artery disease) Code(s): I25.10 - ATHSCL HEART DISEASE OF [place] CORONARY ARTERY W/O ANG PCTRS (4) COPD (chronic obstructive pulmonary disease) Code(s): J44.9 - CHRONIC OBSTRUCTIVE PULMONARY DISEASE, UNSPECIFIED (5) Chronic diastolic CHF (congestive heart failure) Code(s): I50.32 - CHRONIC DIASTOLIC (CONGESTIVE) HEART FAILURE (6) HLD (hyperlipidemia) Code(s): E78.5 - HYPERLIPIDEMIA, UNSPECIFIED Qualifiers: Hyperlipidemia type: unspecified Qualified Code(s): E78.5 - Hyperlipidemia, unspecified (7) HTN (hypertension) Code(s): I10 - ESSENTIAL (PRIMARY) HYPERTENSION Qualifiers: Hypertension type: essential hypertension Qualified Code(s): I10 - Essential (primary) hypertension (8) History of cigarette smoking Code(s): Z87.891 - PERSONAL HISTORY OF NICOTINE DEPENDENCE (9) Influenza Code(s): J11.1 - FLU DUE TO UNIDENTIFIED INFLUENZA VIRUS W OTH RESP MANIFEST Assessment/Plan 1.+Influenza treated 2.Acute respiratory failure intubated still , failed cpap iv steroids abx duo nebs 3.Worsening anemia 4.NSTEMI 5.History breast cancer, lung mass with negative bx 6.COPD, chronic with chronic hypoxemia 7.chf STABLE RECTAL BLEEDING..stable CC 30 MIN
[2016-06-09] MEDS ORDERED: LORAZEPAM CARPU-JECT 2 MG/ML DISP.SYRIN IVPUSH ONE (18:26)
--- NOTE | 2016-06-09 20:23 | PN ---
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 (short form) - Note 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: Ethics note: Patient's chart reviewed but she was sleeping for the first time today and I will revisit in AM. The issue at hand is the patient's wish not to have trach placement in spite of severely compromised pulmonary function acute and chronic and an inability at this point to be weaned off the vent even for the shortest period of time. She was seen by Psychiatry and deemed medically competent to make her own medical decisions but even his note described her as angry. This similar attitude of not wishing to have anyone discuss medically necessary decisions with healthcare persons is repeated throughout the record. I believe a repeated effort has to be made to locate family members or close friends to ascertain if indeed this a new characteristic of her personality and decision making or perhaps a change brought on by the acute illness coupled with her chronic problems. It would then be ideal to have a group ethics meeting with all concerned to try to arrive at an ethical and compassionate decision.
[2016-06-09] MEDS ORDERED: ENALAPRIL MALEATE 5 MG TABLET (FP) PO SCH (22:00)
[2016-06-09] MEDS: ENALAPRIL MALEATE 5 MG TABLET (FP) NGT SCH (22:09)
[2016-06-09] MEDS: ATORVASTATIN CA 80 MG TABLET (FP) PO SCH (22:09)
[2016-06-10 06:03] LABS: MCH 23.1 pg (25.7-33.7); MCHC 31.2 g/dl (32.0-36.0); MEAN PLT VOLUME 8.9 fl (7.5-11.1); PLATELET COUNT 198 K/MM3 (134-434); RDW 25.2 % (11.6-15.6); WHITE BLOOD COUNT 10.8 K/mm3 (4.0-10.0)
[2016-06-10] MEDS: ALBUTEROL SO4 2.5/IPRATROPIUM 0.5 INH SOL 3 ML VIAL.NEB. NEB SCH ×3 (06:15→17:35)
[2016-06-10] MEDS: hydrALAZINE HCL 10 MG TABLET NGT SCH ×3 (06:25→22:03)
[2016-06-10 06:31] LABS: CALCIUM 8.5 mg/dL (8.5-10.1); CREATININE 0.5 mg/dL (0.55-1.02)
[2016-06-10] MEDS: INSULIN SLIDING SCALE (NOVOLOG) 1 VIAL SQ SCH ×3 (06:31→17:25)
--- NOTE | 2016-06-10 08:51 | PN ---
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, Physician Chief Complaint: intubated, alert TELE: NSR, PSVT - Current Medication List Current Medications: Active Medications Acetaminophen (Tylenol -) 650 mg PO Q4H PRN PRN Reason: FEVER OR PAIN Last Admin: 06/08/16 22:49 Dose: 650 mg Albuterol Sulfate (Ventolin 0.083% Nebulizer Soln -) 1 amp NEB Q4H PRN PRN Reason: SHORT OF BREATH/WHEEZING Albuterol/Ipratropium (Duoneb -) 1 amp NEB QIDR [facility] Last Admin: 06/10/16 06:15 Dose: 1 amp Atorvastatin Calcium (Lipitor -) 80 mg PO HS [facility] Last Admin: 06/09/16 22:09 Dose: 80 mg Diltiazem HCl (Cardizem -) 30 mg PO QID [facility] Last Admin: 06/09/16 22:08 Dose: 30 mg Docusate Sodium (Colace -) 100 mg PO DAILY [facility] Last Admin: 06/09/16 09:44 Dose: Not Given Enalapril Maleate (Vasotec -) 5 mg NGT BID [facility] Last Admin: 06/09/16 22:09 Dose: 5 mg Hydralazine HCl (Apresoline -) 10 mg NGT TID [facility] Last Admin: 06/10/16 06:25 Dose: 10 mg Fentanyl 500 mcg/ Dextrose 100 mls @ 15 mls/hr IVPB TITR [facility]; 75 MCG/HR PRN Reason: Protocol Last Admin: 06/09/16 14:30 Dose: Not Given Insulin Aspart (Novolog Vial Sliding Scale -) 1 vial SQ TIDAC [facility] PRN Reason: Protocol Last Admin: 06/10/16 06:31 Dose: 2 units Pantoprazole Sodium (Protonix 40mg Ivpb (Pre-Docked)) 40 mg IVPB DAILY [facility] Last Admin: 06/09/16 09:44 Dose: 40 mg Prednisone (Deltasone -) 40 mg NGT BID [facility] Last Admin: 06/09/16 22:09 Dose: 40 mg - Objective Vital Signs: Vital Signs Temperature 98.9 F 06/10/16 06:00 Pulse Rate 70 06/10/16 06:00 Respiratory Rate 18 06/10/16 07:05 Blood Pressure 180/70 06/10/16 06:00 O2 Sat by Pulse Oximetry (%) 97 06/09/16 20:00 Cardiovascular: Yes: Regular Rate and Rhythm Respiratory: Yes: Other (no wheezing) Gastrointestinal: Yes: Soft Edema: No Neurological: Yes: Alert Labs: CBC, BMP 06/10/16 05:15 06/10/16 05:15 INR, PTT INR 1.02 (0.82-1.09) 06/09/16 05:05 Laboratory Tests 06/09/16 06/10/16 06/10/16 07:15 05:15 05:15 WBC 10.8 H Hct 31.3 L Plt Count 198 ABG pH 7.44 ABG pCO2 at Pt Temp 47.7 H Sodium 142 Potassium 4.3 BUN 17 Creatinine 0.5 L - ....Imaging EKG: Image Reviewed Assessment/Plan Influenza Acute respiratory failure Worsening anemia NSTEMI History breast cancer, lung mass with negative bx COPD, chronic with chronic hypoxemia Mild PSVT Chronic diastolic CHF Carotid stenosis s/p CEA REC: 1. Acute respiratory failure: -+ influenza -re-intubated -pulm to evaluate re vent management, refused trach -ASA held in case trach done. Please resume if no trach 2. Anemia: -stool guaiac -Follow H/H 3. NSTEMI/PSVT: -in setting of acute illness, acute resp failure -suspected underlying CAD -has refused cath on multiple occasions -Repeat echo w/ normal LV fxn. Mild -Rate control of PSVT with Verapamil
[2016-06-10] MEDS: dilTIAZem HCL 30 MG TABLET (FP) PO SCH ×4 (09:22→22:03)
[2016-06-10] MEDS: predniSONE 20 MG TABLET (UD) NGT SCH ×2 (09:22→22:03)
[2016-06-10] MEDS: DOCUSATE SODIUM 100 MG CAPSULE (FP) PO SCH (09:22)
[2016-06-10] MEDS: ENALAPRIL MALEATE 5 MG TABLET (FP) NGT SCH ×2 (09:22→22:04)
[2016-06-10] MEDS: PANTOPRAZOLE SODIUM 40 MG/100 ML PRE-DOCKED IVPB SCH (09:22)
--- NOTE | 2016-06-10 11:39 | PN ---
Teaching Attending Note Name of Resident: Conrad Pagan ATTENDING PHYSICIAN STATEMENT I saw and evaluated the patient. I reviewed the resident's note and discussed the case with the resident. I agree with the resident's findings and plan as documented. SUBJECTIVE: Pt seen and examined in the ICU. Remains intubated, awake off sedation. Placed on SIMV trial. OBJECTIVE: Last Vital Signs Temp Pulse Resp BP Pulse Ox 98.8 F 81 14 145/65 98 06/10/16 10:00 06/10/16 10:25 06/10/16 10:00 06/10/16 10:00 06/10/16 10:25 Intake & Output 06/07/16 06/08/16 06/09/16 06/10/16 23:59 23:59 23:59 23:59 Intake Total 670 1530 1180 680 Output Total 650 1100 1100 800 Balance 20 430 80 -120 Weight 132 lb 4.438 oz 129 lb 6.581 oz 133 lb 13.129 oz 132 lb 13.129 oz Gen: intubated, awake Heart: RRR Lung: scattered rhonchi Abd: soft, nontender Ext: no edema CBC, BMP 06/10/16 05:15 06/10/16 05:15 ABG Results ABG pH 7.44 (7.35-7.45) 06/09/16 07:15 ABG pCO2 at Pt Temp 47.7 mmHg (35-45) H 06/09/16 07:15 ABG pO2 at Pt Temp 71.4 mmHg (70-100) 06/09/16 07:15 ABG HCO3 32.2 meq/L (22-26) H 06/09/16 07:15 ABG O2 Sat (Measured) 94.4 % (90-98.9) 06/09/16 07:15 ABG O2 Content 12.4 % vol (15-22) L 06/09/16 07:15 ABG Base Excess 7.5 meq/l (-2-2) H 06/09/16 07:15 Active Medications Acetaminophen (Tylenol -) 650 mg PO Q4H PRN PRN Reason: FEVER OR PAIN Last Admin: 06/08/16 22:49 Dose: 650 mg Albuterol Sulfate (Ventolin 0.083% Nebulizer Soln -) 1 amp NEB Q4H PRN PRN Reason: SHORT OF BREATH/WHEEZING Albuterol/Ipratropium (Duoneb -) 1 amp NEB QIDR [facility] Last Admin: 06/10/16 06:15 Dose: 1 amp Atorvastatin Calcium (Lipitor -) 80 mg PO HS [facility] Last Admin: 06/09/16 22:09 Dose: 80 mg Diltiazem HCl (Cardizem -) 30 mg PO QID [facility] Last Admin: 06/10/16 09:22 Dose: 30 mg Docusate Sodium (Colace -) 100 mg PO DAILY [facility] Last Admin: 06/10/16 09:22 Dose: Not Given Enalapril Maleate (Vasotec -) 5 mg NGT BID [facility] Last Admin: 06/10/16 09:22 Dose: 5 mg Hydralazine HCl (Apresoline -) 10 mg NGT TID [facility] Last Admin: 06/10/16 06:25 Dose: 10 mg Fentanyl 500 mcg/ Dextrose 100 mls @ 15 mls/hr IVPB TITR [facility]; 75 MCG/HR PRN Reason: Protocol Last Admin: 06/09/16 14:30 Dose: Not Given Insulin Aspart (Novolog Vial Sliding Scale -) 1 vial SQ TIDAC [facility] PRN Reason: Protocol Last Admin: 06/10/16 10:53 Dose: 2 units Pantoprazole Sodium (Protonix 40mg Ivpb (Pre-Docked)) 40 mg IVPB DAILY [facility] Last Admin: 06/10/16 09:22 Dose: 40 mg Prednisone (Deltasone -) 40 mg NGT BID [facility] Last Admin: 06/10/16 09:22 Dose: 40 mg ASSESSMENT AND PLAN: Acute on Chronic Hypoxic and Hypercapneic Respiratory Failure Influenza A s/p treatment Acute COPD Exacerbation CAD +Troponins/Acute NSTEMI Lactic Acidosis resolved h/o Breast Ca 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
--- NOTE | 2016-06-10 11:41 | PN ---
Physical Exam: SUBJECTIVE: Patient seen and examined at bedside in the ICU. She's still intubated and refused trach. No complaint overnight. Per nurse, she's agitated overnight and had to be given ativan. OBJECTIVE: Intubation day 7 on mechanical ventilation; Mode: SIMV, Mandatory Rate: 8, TV: 350, FiO2: 30%, PEEP: 5, PSV: 12 Vital Signs Period Temp Pulse Resp BP Sys/Rasheed Pulse Ox Last 24 Hr 97.9 F-98.9 F 17-100 14-24 132-190/54-99 94-98 GENERAL: AAO x 3, more calm and cooperative HEAD: AT, NC EYES: Pupils equal, round and reactive to light, sclera anicteric, conjunctiva clear EARS, NOSE, THROAT: nares patent oropharynx clear without exudates LUNGS: bilateral rhonchi HEART: RRR, S1 and S2, ejection murmur, rub ABDOMEN: +bs, soft, non-tender, no rebound, guarding EXTREMITIES: No peripheral edema. CBCD WBC 10.8 K/mm3 (4.0-10.0) H 06/10/16 05:15 RBC 4.23 M/mm3 (3.60-5.2) 06/10/16 05:15 Hgb 9.8 GM/dL (10.7-15.3) L 06/10/16 05:15 Hct 31.3 % (32.4-45.2) L 06/10/16 05:15 MCV 74.0 fl (80-96) L 06/10/16 05:15 MCHC 31.2 g/dl (32.0-36.0) L 06/10/16 05:15 RDW 25.2 % (11.6-15.6) H 06/10/16 05:15 Plt Count 198 K/MM3 (134-434) 06/10/16 05:15 MPV 8.9 fl (7.5-11.1) 06/10/16 05:15 CMP Sodium 142 mmol/L (136-145) 06/10/16 05:15 Potassium 4.3 mmol/L (3.5-5.1) 06/10/16 05:15 Chloride 99 mmol/L (98-107) 06/10/16 05:15 Carbon Dioxide 36 mmol/L (21-32) H 06/10/16 05:15 Anion Gap 7 (8-16) L 06/10/16 05:15 BUN 17 mg/dL (7-18) 06/10/16 05:15 Creatinine 0.5 mg/dL (0.55-1.02) L 06/10/16 05:15 Creat Clearance w eGFR > 60 (>60) 06/09/16 05:05 Calcium 8.5 mg/dL (8.5-10.1) 06/10/16 05:15 Total Bilirubin 0.4 mg/dL (0.2-1.0) 06/09/16 05:05 AST 24 U/L (15-37) 06/09/16 05:05 ALT 31 U/L (12-78) 06/09/16 05:05 Alkaline Phosphatase 56 U/L (45-117) 06/09/16 05:05 Total Protein 5.3 g/dl (6.4-8.2) L 06/09/16 05:05 Albumin 2.0 g/dl (3.4-5.0) L 06/09/16 05:05 Intake & Output 06/07/16 06/08/16 06/09/16 06/10/16 23:59 23:59 23:59 23:59 Intake Total 670 1530 1180 680 Output Total 650 1100 1100 800 Balance 20 430 80 -120 Weight 60 kg 58.7 kg 60.7 kg 60.246 kg Active Medications Generic Name Dose Route Start Last Admin Trade Name Freq PRN Reason Stop Dose Admin Acetaminophen 650 mg 06/04/16 02:00 06/08/16 22:49 Tylenol - PO 650 mg Q4H PRN Administration FEVER OR PAIN Albuterol Sulfate 1 amp 06/08/16 10:19 Ventolin 0.083% Nebulizer Soln - NEB Q4H PRN SHORT OF BREATH/WHEEZING Albuterol/Ipratropium 1 amp 06/08/16 10:00 06/10/16 06:15 Duoneb - NEB 1 amp QIDR [facility] Administration Atorvastatin Calcium 80 mg 05/31/16 22:00 06/09/16 22:09 Lipitor - PO 80 mg HS [facility] Administration Diltiazem HCl 30 mg 06/07/16 14:00 06/10/16 09:22 Cardizem - PO 30 mg QID [facility] Administration Docusate Sodium 100 mg 05/31/16 10:00 06/10/16 09:22 Colace - PO Not Given DAILY [facility] Enalapril Maleate 5 mg 06/09/16 22:00 06/10/16 09:22 Vasotec - NGT 5 mg BID [facility] Administration Hydralazine HCl 10 mg 06/07/16 14:00 06/10/16 06:25 Apresoline - NGT 10 mg TID [facility] Administration Fentanyl 500 mcg/ Dextrose 100 mls @ 15 mls/hr 06/05/16 14:30 06/09/16 14:30 IVPB Not Given TITR [facility] Protocol 75 MCG/HR Insulin Aspart 1 vial 05/31/16 07:00 06/10/16 10:53 Novolog Vial Sliding Scale - SQ 2 units TIDAC [facility] Administration Protocol Pantoprazole Sodium 40 mg 05/31/16 10:00 06/10/16 09:22 Protonix 40mg Ivpb (Pre-Docked) IVPB 40 mg DAILY [facility] Administration Prednisone 40 mg 06/08/16 10:21 06/10/16 09:22 Deltasone - NGT 40 mg BID [facility] Administration Microbiology 05/30/16 23:30 Nasopharyngeal Swab Influenza Types A positive Imaging CXR on 06/09: No change CXR on 06/08: No change ECHO: normal LV function ASSESSMENT/PLAN: 75 yo F h/o COPD with chronic bronchitis on home O2, HTN, HLD, CHF, CAD, stable AAA, left breast CA s/p lumpectomy and radiation therapy, remote history of intracranial bleed admitted to the ICU for acute on chronic hypercapneic respiratory failure in the setting of COPD and CHF exacerbation and flu. Respiratory: acute on chronic hypercapneic respiratory failure - Intubation day 7 * Maintain SIMV mode as tolerated * Patient refuses trach * Full decision making capacity per psy * Ethics committee onboard - Nebulizers [facility] and PRN - Predisone 20mg NGT BID - Stop daily ABG - CXR QOD ID: Sepsis 2/2 influenza A - Completed tamiflu zosyn and azitromycin courses - Afrebile and normal WBC Cardiac: NSTEMI vs. Demand ischemia; HTN - Restart ASA - SVT on cardiazem - Vasotec and hydralazine NGT for BP control Heme: Microcytic anemia - HGB stable - Monitor H&H - Transfuse if < 9 per GI FEN - No IVF indicated - Normal lytes, cont. to monitor - Tube feed osmolite Prophylaxis - DVT: resume lovenox - GI: daily PPI Disposition - Cont. to monitor in ICU - Ethics committee on board to determine the next step Code status - Full code Visit type - Emergency Visit Emergency Visit: No - New Patient This patient is new to me today: No - Critical Care Critical Care patient: Yes Total Critical Care Time (in minutes): 35 Critical Care Statement: The care of this patient involved high complexity decision making to prevent further life threatening deterioration of the patient 's condition and/or to evalute & treat vital organ system(s) failure or risk of failure.
--- NOTE | 2016-06-10 12:00 | PN ---
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, Physician History of Present Illness: INTUBATED AWAKE - Current Medication List Current Medications: Active Medications Acetaminophen (Tylenol -) 650 mg PO Q4H PRN PRN Reason: FEVER OR PAIN Last Admin: 06/08/16 22:49 Dose: 650 mg Albuterol Sulfate (Ventolin 0.083% Nebulizer Soln -) 1 amp NEB Q4H PRN PRN Reason: SHORT OF BREATH/WHEEZING Albuterol/Ipratropium (Duoneb -) 1 amp NEB QIDR [facility] Last Admin: 06/10/16 11:05 Dose: 1 amp Aspirin (Asa -) 81 mg NGT DAILY [facility] Atorvastatin Calcium (Lipitor -) 80 mg PO HS [facility] Last Admin: 06/09/16 22:09 Dose: 80 mg Diltiazem HCl (Cardizem -) 30 mg PO QID [facility] Last Admin: 06/10/16 09:22 Dose: 30 mg Docusate Sodium (Colace -) 100 mg PO DAILY [facility] Last Admin: 06/10/16 09:22 Dose: Not Given Enalapril Maleate (Vasotec -) 5 mg NGT BID [facility] Last Admin: 06/10/16 09:22 Dose: 5 mg Enoxaparin Sodium (Lovenox -) 40 mg SQ BID [facility] Hydralazine HCl (Apresoline -) 10 mg NGT TID [facility] Last Admin: 06/10/16 06:25 Dose: 10 mg Fentanyl 500 mcg/ Dextrose 100 mls @ 15 mls/hr IVPB TITR [facility]; 75 MCG/HR PRN Reason: Protocol Last Admin: 06/09/16 14:30 Dose: Not Given Insulin Aspart (Novolog Vial Sliding Scale -) 1 vial SQ TIDAC [facility] PRN Reason: Protocol Last Admin: 06/10/16 10:53 Dose: 2 units Pantoprazole Sodium (Protonix 40mg Ivpb (Pre-Docked)) 40 mg IVPB DAILY [facility] Last Admin: 06/10/16 09:22 Dose: 40 mg Prednisone (Deltasone -) 40 mg NGT BID [facility] Last Admin: 06/10/16 09:22 Dose: 40 mg - Objective Vital Signs: Vital Signs Temperature 98.8 F 06/10/16 10:00 Pulse Rate 81 06/10/16 10:25 Respiratory Rate 14 06/10/16 10:00 Blood Pressure 145/65 06/10/16 10:00 O2 Sat by Pulse Oximetry (%) 98 06/10/16 10:25 Constitutional: Yes: No Distress HENT: Yes: Atraumatic Neck: Yes: Supple Cardiovascular: Yes: Regular Rate and Rhythm Respiratory: Yes: CTA Bilaterally Gastrointestinal: Yes: Normal Bowel Sounds Extremities: Yes: WNL Neurological: Yes: Alert, Oriented Labs: CBC, BMP 06/10/16 05:15 06/10/16 05:15 INR, PTT INR 1.02 (0.82-1.09) 06/09/16 05:05 Problem List - Problems (1) Respiratory failure Code(s): J96.90 - RESPIRATORY FAILURE, UNSP, UNSP W HYPOXIA OR HYPERCAPNIA Qualifiers: Chronicity: acute Respiratory failure complication: hypoxia and hypercapnia Qualified Code(s): J96.01 - Acute respiratory failure with hypoxia (2) Chronic respiratory failure with hypoxia Code(s): J96.11 - CHRONIC RESPIRATORY FAILURE WITH HYPOXIA (3) CAD (coronary artery disease) Code(s): I25.10 - ATHSCL HEART DISEASE OF [place] CORONARY ARTERY W/O ANG PCTRS (4) COPD (chronic obstructive pulmonary disease) Code(s): J44.9 - CHRONIC OBSTRUCTIVE PULMONARY DISEASE, UNSPECIFIED (5) Chronic diastolic CHF (congestive heart failure) Code(s): I50.32 - CHRONIC DIASTOLIC (CONGESTIVE) HEART FAILURE (6) HLD (hyperlipidemia) Code(s): E78.5 - HYPERLIPIDEMIA, UNSPECIFIED Qualifiers: Hyperlipidemia type: unspecified Qualified Code(s): E78.5 - Hyperlipidemia, unspecified (7) HTN (hypertension) Code(s): I10 - ESSENTIAL (PRIMARY) HYPERTENSION Qualifiers: Hypertension type: essential hypertension Qualified Code(s): I10 - Essential (primary) hypertension (8) History of cigarette smoking Code(s): Z87.891 - PERSONAL HISTORY OF NICOTINE DEPENDENCE (9) Influenza Code(s): J11.1 - FLU DUE TO UNIDENTIFIED INFLUENZA VIRUS W OTH RESP MANIFEST Assessment/Plan 1.+Influenza treated 2.Acute respiratory failure intubated still , failed cpap iv steroids abx duo nebs 3.Worsening anemia 4.NSTEMI 5.History breast cancer, lung mass with negative bx 6.COPD, chronic with chronic hypoxemia 7.chf STABLE 8.RECTAL BLEEDING H/H STABLE DISCUSSION REGARDING GOALS OF CARE CC 30 MIN
[2016-06-10] MEDS: ASPIRIN 81 MG CHEWABLE TABLETS NGT SCH (12:24)
[2016-06-10] MEDS ORDERED: PT OWN MED DRAWER 7, Y5N ONE ×2 (15:14→21:47)
[2016-06-10] MEDS: FENTANYL INJECTION 500 MCG in DEXTROSE 5%-WATER - 90 ML IVPB SCH (15:16)
--- NOTE | 2016-06-10 16:06 | PN ---
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, Physician History of Present Illness: intubated awake not able to wean - Current Medication List Current Medications: Active Medications Acetaminophen (Tylenol -) 650 mg PO Q4H PRN PRN Reason: FEVER OR PAIN Last Admin: 06/08/16 22:49 Dose: 650 mg Albuterol Sulfate (Ventolin 0.083% Nebulizer Soln -) 1 amp NEB Q4H PRN PRN Reason: SHORT OF BREATH/WHEEZING Albuterol/Ipratropium (Duoneb -) 1 amp NEB QIDR [facility] Last Admin: 06/10/16 11:05 Dose: 1 amp Aspirin (Asa -) 81 mg NGT DAILY [facility] Last Admin: 06/10/16 12:24 Dose: 81 mg Atorvastatin Calcium (Lipitor -) 80 mg PO HS [facility] Last Admin: 06/09/16 22:09 Dose: 80 mg Diltiazem HCl (Cardizem -) 30 mg PO QID [facility] Last Admin: 06/10/16 15:15 Dose: 30 mg Docusate Sodium (Colace -) 100 mg PO DAILY [facility] Last Admin: 06/10/16 09:22 Dose: Not Given Enalapril Maleate (Vasotec -) 5 mg NGT BID [facility] Last Admin: 06/10/16 09:22 Dose: 5 mg Enoxaparin Sodium (Lovenox -) 40 mg SQ BID [facility] Hydralazine HCl (Apresoline -) 10 mg NGT TID [facility] Last Admin: 06/10/16 15:15 Dose: 10 mg Fentanyl 500 mcg/ Dextrose 100 mls @ 15 mls/hr IVPB TITR YEISON; 75 MCG/HR PRN Reason: Protocol Last Admin: 06/10/16 15:16 Dose: Not Given Insulin Aspart (Novolog Vial Sliding Scale -) 1 vial SQ TIDAC [facility] PRN Reason: Protocol Last Admin: 06/10/16 10:53 Dose: 2 units Pantoprazole Sodium (Protonix 40mg Ivpb (Pre-Docked)) 40 mg IVPB DAILY [facility] Last Admin: 06/10/16 09:22 Dose: 40 mg Prednisone (Deltasone -) 40 mg NGT BID [facility] Last Admin: 06/10/16 09:22 Dose: 40 mg - Objective Vital Signs: Vital Signs Temperature 98.2 F 06/10/16 14:00 Pulse Rate 86 06/10/16 16:00 Respiratory Rate 14 06/10/16 16:00 Blood Pressure 164/68 06/10/16 16:00 O2 Sat by Pulse Oximetry (%) 99 06/10/16 15:59 Constitutional: Yes: No Distress, Calm Cardiovascular: Yes: Regular Rate and Rhythm Respiratory: Yes: Regular, Intubated, Mechanically Ventilated Gastrointestinal: Yes: Normal Bowel Sounds, Soft Musculoskeletal: Yes: WNL Extremities: Yes: WNL Neurological: Yes: Alert, Oriented Psychiatric: Yes: Alert, Oriented Labs: CBC, BMP 06/10/16 05:15 06/10/16 05:15 INR, PTT INR 1.02 (0.82-1.09) 06/09/16 05:05 Assessment/Plan Problem List - Problems (1) Respiratory failure Code(s): J96.90 - RESPIRATORY FAILURE, UNSP, UNSP W HYPOXIA OR HYPERCAPNIA Qualifiers: Chronicity: acute Respiratory failure complication: hypoxia and hypercapnia Qualified Code(s): J96.01 - Acute respiratory failure with hypoxia (2) Chronic respiratory failure with hypoxia Code(s): J96.11 - CHRONIC RESPIRATORY FAILURE WITH HYPOXIA (3) CAD (coronary artery disease) Code(s): I25.10 - ATHSCL HEART DISEASE OF [place] CORONARY ARTERY W/O ANG PCTRS (4) COPD (chronic obstructive pulmonary disease) Assessment/Plan: intubated Code(s): J44.9 - CHRONIC OBSTRUCTIVE PULMONARY DISEASE, UNSPECIFIED (5) Chronic diastolic CHF (congestive heart failure) Code(s): I50.32 - CHRONIC DIASTOLIC (CONGESTIVE) HEART FAILURE (6) HLD (hyperlipidemia) Code(s): E78.5 - HYPERLIPIDEMIA, UNSPECIFIED Qualifiers: Hyperlipidemia type: unspecified Qualified Code(s): E78.5 - Hyperlipidemia, unspecified (7) HTN (hypertension) Code(s): I10 - ESSENTIAL (PRIMARY) HYPERTENSION Qualifiers: Hypertension type: essential hypertension Qualified Code(s): I10 - Essential (primary) hypertension (8) History of cigarette smoking Code(s): Z87.891 - PERSONAL HISTORY OF NICOTINE DEPENDENCE +Troponins/Acute NSTEMI Lactic Acidosis h/o Breast Ca Lung Nodules with recent biopsy showing necrotizing granulomas Smoker patient having purulent sputum wbc trending towards normal plan patient still not able to be weaned off trach consideration patient still considering has remained stable till now no new findings cc time 40 min
--- NOTE | 2016-06-10 19:48 | PN ---
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 (short form) - Note 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: Ethics note: I spoke to the patient earlier this morning. She was awake and aware and I told her of my reasons for being in her room. She still was resistant to the decision for the trach but when I proposed a time limited trial of that treatment that she said would consider it. I spoke to Dr. Garcia who said he would consider the proposal. He assured me that he knew the patient quite well from her previous illnesses and admissions. I asked Rev. Adamson to see if he could make an outreach to her family members so we could get to know the patient better. The patient still told me she did not want to have them make decisions for her.
[2016-06-10] MEDS: ENOXAPARIN NA (PORCINE) 40 MG/0.4 ML DISP.SYRIN SQ SCH (22:03)
[2016-06-10] MEDS: ATORVASTATIN CA 80 MG TABLET (FP) PO SCH (22:03)
[2016-06-11] MEDS: ACETAMINOPHEN 325 MG TABLET (FP) PO PRN ×3 (01:04→22:33)
[2016-06-11] MEDS: ALBUTEROL SO4 2.5/IPRATROPIUM 0.5 INH SOL 3 ML VIAL.NEB. NEB SCH ×4 (05:55→19:20)
[2016-06-11 05:56] LABS: MCH 22.7 pg (25.7-33.7); MCHC 30.8 g/dl (32.0-36.0); MEAN CELL VOLUME 73.7 fl (80-96); MEAN PLT VOLUME 9.3 fl (7.5-11.1); PLATELET COUNT 219 K/MM3 (134-434); RDW 25.8 % (11.6-15.6); WHITE BLOOD COUNT 12.6 K/mm3 (4.0-10.0)
[2016-06-11] MEDS: INSULIN SLIDING SCALE (NOVOLOG) 1 VIAL SQ SCH ×3 (06:37→17:46)
[2016-06-11] MEDS: hydrALAZINE HCL 10 MG TABLET NGT SCH ×3 (06:38→22:30)
--- NOTE | 2016-06-11 08:10 | PN ---
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, Physician Chief Complaint: intubated, alert - Current Medication List Current Medications: Active Medications Acetaminophen (Tylenol -) 650 mg PO Q4H PRN PRN Reason: FEVER OR PAIN Last Admin: 06/11/16 01:04 Dose: 650 mg Albuterol Sulfate (Ventolin 0.083% Nebulizer Soln -) 1 amp NEB Q4H PRN PRN Reason: SHORT OF BREATH/WHEEZING Albuterol/Ipratropium (Duoneb -) 1 amp NEB QIDR [facility] Last Admin: 06/11/16 05:55 Dose: 1 amp Aspirin (Asa -) 81 mg NGT DAILY [facility] Last Admin: 06/10/16 12:24 Dose: 81 mg Atorvastatin Calcium (Lipitor -) 80 mg PO HS [facility] Last Admin: 06/10/16 22:03 Dose: 80 mg Diltiazem HCl (Cardizem -) 30 mg PO QID [facility] Last Admin: 06/10/16 22:03 Dose: 30 mg Docusate Sodium (Colace -) 100 mg PO DAILY [facility] Last Admin: 06/10/16 09:22 Dose: Not Given Enalapril Maleate (Vasotec -) 5 mg NGT BID [facility] Last Admin: 06/10/16 22:04 Dose: 5 mg Enoxaparin Sodium (Lovenox -) 40 mg SQ BID [facility] Last Admin: 06/10/16 22:03 Dose: 40 mg Hydralazine HCl (Apresoline -) 10 mg NGT TID [facility] Last Admin: 06/11/16 06:38 Dose: 10 mg Fentanyl 500 mcg/ Dextrose 100 mls @ 15 mls/hr IVPB TITR YEISON; 75 MCG/HR PRN Reason: Protocol Last Admin: 06/10/16 15:16 Dose: Not Given Insulin Aspart (Novolog Vial Sliding Scale -) 1 vial SQ TIDAC [facility] PRN Reason: Protocol Last Admin: 06/11/16 06:37 Dose: 2 units Pantoprazole Sodium (Protonix 40mg Ivpb (Pre-Docked)) 40 mg IVPB DAILY [facility] Last Admin: 06/10/16 09:22 Dose: 40 mg Prednisone (Deltasone -) 40 mg NGT BID [facility] Last Admin: 06/10/16 22:03 Dose: 40 mg - Objective Vital Signs: Vital Signs Temperature 98.4 F 06/11/16 06:00 Pulse Rate 70 06/11/16 06:00 Respiratory Rate 25 H 06/11/16 06:38 Blood Pressure 143/50 06/11/16 06:00 O2 Sat by Pulse Oximetry (%) 100 06/10/16 20:00 Constitutional: Yes: Calm HENT: Yes: Other (+ ETT) Cardiovascular: Yes: Regular Rate and Rhythm Respiratory: Yes: Other (= breath sounds, no wheezing) Gastrointestinal: Yes: Soft Edema: No Labs: CBC, BMP 06/11/16 05:05 06/10/16 05:15 INR, PTT INR 1.02 (0.82-1.09) 06/09/16 05:05 - ....Imaging EKG: Image Reviewed Assessment/Plan Influenza Acute respiratory failure Worsening anemia NSTEMI History breast cancer, lung mass with negative bx COPD, chronic with chronic hypoxemia Mild PSVT Chronic diastolic CHF Carotid stenosis s/p CEA REC: 1. Acute respiratory failure: -+ influenza -re-intubated -pulm to evaluate re vent management, refused trach 2. NSTEMI/PSVT: -in setting of acute illness, acute resp failure -suspected underlying CAD -On ASA -has refused cath on multiple occasions -Repeat echo w/ normal LV fxn. Mild -Rate control of PSVT with Cardizem or Verapamil which she responds well to
[2016-06-11 08:21] LABS: ANISOCYTOSIS 3+; HYPOCHROMIA 1+; MICROCYTOSIS 1+; OVALOCYTES 1+; PLATELET ESTIMATE ADEQUATE (NORMAL); POIKILOCYTOSIS 2+; TARGET CELLS 1+
--- NOTE | 2016-06-11 08:48 | PN ---
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 (short form) - Note 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: Pt seen and examined in the ICU. Remains intubated, awake off sedation. Mildly tachypneic on SIMV mode of vent. Ethics follow up noted yesterday. CXR: ETT in place / developing layering effusion on the right Intake & Output 06/08/16 06/09/16 06/10/16 06/11/16 23:59 23:59 23:59 23:59 Intake Total 1530 1180 1460 580 Output Total 1100 1100 1700 800 Balance 430 80 -240 -220 Weight 129 lb 6.581 oz 133 lb 13.129 oz 132 lb 13.129 oz 132 lb 13.129 oz Last Vital Signs Temp Pulse Resp BP Pulse Ox 98.4 F 70 25 H 143/50 100 06/11/16 06:00 06/11/16 06:00 06/11/16 06:38 06/11/16 06:00 06/10/16 20:00 Active Medications Acetaminophen (Tylenol -) 650 mg PO Q4H PRN PRN Reason: FEVER OR PAIN Last Admin: 06/11/16 01:04 Dose: 650 mg Albuterol Sulfate (Ventolin 0.083% Nebulizer Soln -) 1 amp NEB Q4H PRN PRN Reason: SHORT OF BREATH/WHEEZING Albuterol/Ipratropium (Duoneb -) 1 amp NEB QIDR [facility] Last Admin: 06/11/16 05:55 Dose: 1 amp Aspirin (Asa -) 81 mg NGT DAILY [facility] Last Admin: 06/10/16 12:24 Dose: 81 mg Atorvastatin Calcium (Lipitor -) 80 mg PO HS [facility] Last Admin: 06/10/16 22:03 Dose: 80 mg Diltiazem HCl (Cardizem -) 30 mg PO QID [facility] Last Admin: 06/10/16 22:03 Dose: 30 mg Docusate Sodium (Colace -) 100 mg PO DAILY [facility] Last Admin: 06/10/16 09:22 Dose: Not Given Enalapril Maleate (Vasotec -) 5 mg NGT BID [facility] Last Admin: 06/10/16 22:04 Dose: 5 mg Enoxaparin Sodium (Lovenox -) 40 mg SQ BID [facility] Last Admin: 06/10/16 22:03 Dose: 40 mg Hydralazine HCl (Apresoline -) 10 mg NGT TID [facility] Last Admin: 06/11/16 06:38 Dose: 10 mg Fentanyl 500 mcg/ Dextrose 100 mls @ 15 mls/hr IVPB TITR YEISON; 75 MCG/HR PRN Reason: Protocol Last Admin: 06/10/16 15:16 Dose: Not Given Insulin Aspart (Novolog Vial Sliding Scale -) 1 vial SQ TIDAC [facility] PRN Reason: Protocol Last Admin: 06/11/16 06:37 Dose: 2 units Pantoprazole Sodium (Protonix 40mg Ivpb (Pre-Docked)) 40 mg IVPB DAILY [facility] Last Admin: 06/10/16 09:22 Dose: 40 mg Prednisone (Deltasone -) 40 mg NGT BID [facility] Last Admin: 06/10/16 22:03 Dose: 40 mg Gen: intubated, awake Heart: RRR Lung: scattered rhonchi Abd: soft, nontender Ext: no edema Laboratory Results - last 24 hr 06/10/16 06/10/16 06/10/16 06:30 10:50 17:21 WBC RBC Hgb Hct MCV MCHC RDW Plt Count MPV Platelet Estimate Platelet Comment Hypochromic-Microcytic Poikilocytosis Anisocytosis Microcytosis Target Cells Ovalocytes POC Glucometer [phone] [phone] 06/11/16 06/11/16 05:05 05:39 WBC 12.6 H RBC 4.54 Hgb 10.3 L Hct 33.4 MCV 73.7 L MCHC 30.8 L RDW 25.8 H Plt Count 219 MPV 9.3 Platelet Estimate Adequate Platelet Comment No clumping noted Hypochromic-Microcytic 1+ Poikilocytosis 2+ Anisocytosis 3+ Microcytosis 1+ Target Cells 1+ Ovalocytes 1+ POC Glucometer [phone] ASSESSMENT AND PLAN: Acute on Chronic Hypoxic and Hypercapneic Respiratory Failure Influenza A s/p treatment Acute COPD Exacerbation CAD +Troponins/Acute NSTEMI Lactic Acidosis resolved h/o Breast Ca Lung Nodules with recent biopsy showing necrotizing granulomas Smoker - Off antibiotics - inhaled bronchodilators - taper prednisone - O2 to keep SpO2 >90% - spontaneous breathing trials as tolerated - DVT/GI prophylaxis - continue ICU monitoring - continue discussions regarding goals of care -> Will need Trach - Follow CXR -> May need Felix Mosqueda CCTime [phone]"
[2016-06-11] MEDS: DOCUSATE SODIUM 100 MG CAPSULE (FP) PO SCH (09:44)
[2016-06-11] MEDS: dilTIAZem HCL 30 MG TABLET (FP) PO SCH ×4 (09:44→22:33)
[2016-06-11] MEDS: ENOXAPARIN NA (PORCINE) 40 MG/0.4 ML DISP.SYRIN SQ SCH ×2 (09:44→22:32)
[2016-06-11] MEDS: predniSONE 20 MG TABLET (UD) NGT SCH (09:44)
[2016-06-11] MEDS: PANTOPRAZOLE SODIUM 40 MG/100 ML PRE-DOCKED IVPB SCH (09:45)
[2016-06-11] MEDS: ASPIRIN 81 MG CHEWABLE TABLETS NGT SCH (09:46)
[2016-06-11] MEDS: ENALAPRIL MALEATE 5 MG TABLET (FP) NGT SCH ×2 (11:29→22:37)
[2016-06-11] MEDS ORDERED: PT OWN MED DRAWER 7, Y5N ONE (14:40)
[2016-06-11] MEDS: FENTANYL INJECTION 500 MCG in DEXTROSE 5%-WATER - 90 ML IVPB SCH (14:42)
--- NOTE | 2016-06-11 15:56 | PN ---
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, Physician History of Present Illness: INTUBATED AWAKE om simv mode - Current Medication List Current Medications: Active Medications Acetaminophen (Tylenol -) 650 mg PO Q4H PRN PRN Reason: FEVER OR PAIN Last Admin: 06/11/16 11:29 Dose: 650 mg Albuterol Sulfate (Ventolin 0.083% Nebulizer Soln -) 1 amp NEB Q4H PRN PRN Reason: SHORT OF BREATH/WHEEZING Albuterol/Ipratropium (Duoneb -) 1 amp NEB QIDR [facility] Last Admin: 06/11/16 11:28 Dose: 1 amp Aspirin (Asa -) 81 mg NGT DAILY [facility] Last Admin: 06/11/16 09:46 Dose: 81 mg Atorvastatin Calcium (Lipitor -) 80 mg PO HS [facility] Last Admin: 06/10/16 22:03 Dose: 80 mg Diltiazem HCl (Cardizem -) 30 mg PO QID [facility] Last Admin: 06/11/16 14:42 Dose: 30 mg Docusate Sodium (Colace -) 100 mg PO DAILY [facility] Last Admin: 06/11/16 09:44 Dose: Not Given Enalapril Maleate (Vasotec -) 5 mg NGT BID [facility] Last Admin: 06/11/16 11:29 Dose: 5 mg Enoxaparin Sodium (Lovenox -) 40 mg SQ BID [facility] Last Admin: 06/11/16 09:44 Dose: 40 mg Hydralazine HCl (Apresoline -) 10 mg NGT TID [facility] Last Admin: 06/11/16 14:42 Dose: 10 mg Fentanyl 500 mcg/ Dextrose 100 mls @ 15 mls/hr IVPB TITR YEISON; 75 MCG/HR PRN Reason: Protocol Last Admin: 06/11/16 14:42 Dose: Not Given Insulin Aspart (Novolog Vial Sliding Scale -) 1 vial SQ TIDAC [facility] PRN Reason: Protocol Last Admin: 06/11/16 11:42 Dose: 2 units Pantoprazole Sodium (Protonix 40mg Ivpb (Pre-Docked)) 40 mg IVPB DAILY [facility] Last Admin: 06/11/16 09:45 Dose: 40 mg Prednisone (Deltasone -) 40 mg NGT DAILY [facility] Last Admin: 06/11/16 09:44 Dose: 40 mg - Objective Vital Signs: Vital Signs Temperature 98 F 06/11/16 10:00 Pulse Rate 72 06/11/16 12:00 Respiratory Rate 21 06/11/16 14:10 Blood Pressure 145/55 06/11/16 12:00 O2 Sat by Pulse Oximetry (%) 100 06/11/16 09:00 Constitutional: Yes: No Distress HENT: Yes: Atraumatic Neck: Yes: Supple Cardiovascular: Yes: Regular Rate and Rhythm Respiratory: Yes: CTA Bilaterally Extremities: Yes: WNL Neurological: Yes: Alert, Oriented Labs: CBC, BMP 06/11/16 05:05 06/10/16 05:15 INR, PTT INR 1.02 (0.82-1.09) 06/09/16 05:05 Problem List - Problems (1) Respiratory failure Code(s): J96.90 - RESPIRATORY FAILURE, UNSP, UNSP W HYPOXIA OR HYPERCAPNIA Qualifiers: Chronicity: acute Respiratory failure complication: hypoxia and hypercapnia Qualified Code(s): J96.01 - Acute respiratory failure with hypoxia (2) Chronic respiratory failure with hypoxia Code(s): J96.11 - CHRONIC RESPIRATORY FAILURE WITH HYPOXIA (3) CAD (coronary artery disease) Code(s): I25.10 - ATHSCL HEART DISEASE OF [place] CORONARY ARTERY W/O ANG PCTRS (4) COPD (chronic obstructive pulmonary disease) Code(s): J44.9 - CHRONIC OBSTRUCTIVE PULMONARY DISEASE, UNSPECIFIED (5) Chronic diastolic CHF (congestive heart failure) Code(s): I50.32 - CHRONIC DIASTOLIC (CONGESTIVE) HEART FAILURE (6) HLD (hyperlipidemia) Code(s): E78.5 - HYPERLIPIDEMIA, UNSPECIFIED Qualifiers: Hyperlipidemia type: unspecified Qualified Code(s): E78.5 - Hyperlipidemia, unspecified (7) HTN (hypertension) Code(s): I10 - ESSENTIAL (PRIMARY) HYPERTENSION Qualifiers: Hypertension type: essential hypertension Qualified Code(s): I10 - Essential (primary) hypertension (8) History of cigarette smoking Code(s): Z87.891 - PERSONAL HISTORY OF NICOTINE DEPENDENCE (9) Influenza Code(s): J11.1 - FLU DUE TO UNIDENTIFIED INFLUENZA VIRUS W OTH RESP MANIFEST Assessment/Plan 1.+Influenza treated 2.Acute respiratory failure intubated still , on weaning iv steroids abx duo nebs 3.Worsening anemia 4.NSTEMI 5.History breast cancer, lung mass with negative bx 6.COPD, chronic with chronic hypoxemia 7.chf STABLE R CC 30 MIN
[2016-06-11] MEDS: ALPRAZolam 0.25 MG TABLET PO PRN ×2 (16:18→22:36)
--- NOTE | 2016-06-11 17:15 | PN ---
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, Physician History of Present Illness: continues to be intubated no other events - Current Medication List Current Medications: Active Medications Acetaminophen (Tylenol -) 650 mg PO Q4H PRN PRN Reason: FEVER OR PAIN Last Admin: 06/11/16 11:29 Dose: 650 mg Albuterol Sulfate (Ventolin 0.083% Nebulizer Soln -) 1 amp NEB Q4H PRN PRN Reason: SHORT OF BREATH/WHEEZING Albuterol/Ipratropium (Duoneb -) 1 amp NEB QIDR [facility] Last Admin: 06/11/16 11:28 Dose: 1 amp Alprazolam (Xanax -) 0.25 mg PO Q6H PRN PRN Reason: ANXIETY Last Admin: 06/11/16 16:18 Dose: 0.25 mg Aspirin (Asa -) 81 mg NGT DAILY [facility] Last Admin: 06/11/16 09:46 Dose: 81 mg Atorvastatin Calcium (Lipitor -) 80 mg PO HS [facility] Last Admin: 06/10/16 22:03 Dose: 80 mg Diltiazem HCl (Cardizem -) 30 mg PO QID [facility] Last Admin: 06/11/16 14:42 Dose: 30 mg Docusate Sodium (Colace -) 100 mg PO DAILY [facility] Last Admin: 06/11/16 09:44 Dose: Not Given Enalapril Maleate (Vasotec -) 5 mg NGT BID [facility] Last Admin: 06/11/16 11:29 Dose: 5 mg Enoxaparin Sodium (Lovenox -) 40 mg SQ BID [facility] Last Admin: 06/11/16 09:44 Dose: 40 mg Hydralazine HCl (Apresoline -) 10 mg NGT TID [facility] Last Admin: 06/11/16 14:42 Dose: 10 mg Fentanyl 500 mcg/ Dextrose 100 mls @ 15 mls/hr IVPB TITR [facility]; 75 MCG/HR PRN Reason: Protocol Last Admin: 06/11/16 14:42 Dose: Not Given Insulin Aspart (Novolog Vial Sliding Scale -) 1 vial SQ TIDAC [facility] PRN Reason: Protocol Last Admin: 06/11/16 11:42 Dose: 2 units Pantoprazole Sodium (Protonix 40mg Ivpb (Pre-Docked)) 40 mg IVPB DAILY [facility] Last Admin: 06/11/16 09:45 Dose: 40 mg Prednisone (Deltasone -) 40 mg NGT [facility]ILY [facility] Last Admin: 06/11/16 09:44 Dose: 40 mg - Objective Vital Signs: Vital Signs Temperature 98 F 06/11/16 10:00 Pulse Rate 72 06/11/16 12:00 Respiratory Rate 28 H 06/11/16 16:34 Blood Pressure 145/55 06/11/16 12:00 O2 Sat by Pulse Oximetry (%) 100 06/11/16 09:00 Constitutional: Yes: No Distress, Calm HENT: Yes: Atraumatic, Normocephalic Neck: Yes: Supple, Trachea Midline Cardiovascular: Yes: Regular Rate and Rhythm Respiratory: Yes: Intubated, Mechanically Ventilated Gastrointestinal: Yes: Normal Bowel Sounds, Soft, Other (og tube feeding) Musculoskeletal: Yes: WNL Extremities: Yes: WNL Neurological: Yes: Alert, Oriented Psychiatric: Yes: Alert Labs: CBC, BMP 06/11/16 05:05 06/10/16 05:15 INR, PTT INR 1.02 (0.82-1.09) 06/09/16 05:05 Assessment/Plan Problem List - Problems (1) Respiratory failure Code(s): J96.90 - RESPIRATORY FAILURE, UNSP, UNSP W HYPOXIA OR HYPERCAPNIA Qualifiers: Chronicity: acute Respiratory failure complication: hypoxia and hypercapnia Qualified Code(s): J96.01 - Acute respiratory failure with hypoxia (2) Chronic respiratory failure with hypoxia Code(s): J96.11 - CHRONIC RESPIRATORY FAILURE WITH HYPOXIA (3) CAD (coronary artery disease) Code(s): I25.10 - ATHSCL HEART DISEASE OF [place] CORONARY ARTERY W/O ANG PCTRS (4) COPD (chronic obstructive pulmonary disease) Assessment/Plan: intubated Code(s): J44.9 - CHRONIC OBSTRUCTIVE PULMONARY DISEASE, UNSPECIFIED (5) Chronic diastolic CHF (congestive heart failure) Code(s): I50.32 - CHRONIC DIASTOLIC (CONGESTIVE) HEART FAILURE (6) HLD (hyperlipidemia) Code(s): E78.5 - HYPERLIPIDEMIA, UNSPECIFIED Qualifiers: Hyperlipidemia type: unspecified Qualified Code(s): E78.5 - Hyperlipidemia, unspecified (7) HTN (hypertension) Code(s): I10 - ESSENTIAL (PRIMARY) HYPERTENSION Qualifiers: Hypertension type: essential hypertension Qualified Code(s): I10 - Essential (primary) hypertension (8) History of cigarette smoking Code(s): Z87.891 - PERSONAL HISTORY OF NICOTINE DEPENDENCE +Troponins/Acute NSTEMI Lactic Acidosis h/o Breast Ca 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
[2016-06-11] MEDS: ATORVASTATIN CA 80 MG TABLET (FP) PO SCH (22:31)
[2016-06-12] MEDS: ALBUTEROL SO4 2.5/IPRATROPIUM 0.5 INH SOL 3 ML VIAL.NEB. NEB SCH ×4 (00:11→19:15)
[2016-06-12 06:00] LABS: MCH 23.1 pg (25.7-33.7); MCHC 31.2 g/dl (32.0-36.0); MEAN PLT VOLUME 9.2 fl (7.5-11.1); PLATELET COUNT 231 K/MM3 (134-434); RDW 25.7 % (11.6-15.6); WHITE BLOOD COUNT 11.4 K/mm3 (4.0-10.0)
[2016-06-12] MEDS: hydrALAZINE HCL 10 MG TABLET NGT SCH ×3 (06:03→22:00)
[2016-06-12 06:39] LABS: ALBUMIN 1.9 g/dl (3.4-5.0); ANION GAP 6 (8-16); CALCIUM 8.3 mg/dL (8.5-10.1); CO2 33 mmol/L (21-32); CREATININE 0.5 mg/dL (0.55-1.02); GLUCOSE,RANDOM 151 mg/dL (74-106); MAGNESIUM 2.2 mg/dL (1.8-2.4); SGOT/AST 17 U/L (15-37); SGPT/ALT 21 U/L (12-78)
[2016-06-12 06:42] LABS: ALK PHOS 52 U/L (45-117); BILIRUBIN,TOTAL 0.3 mg/dL (0.2-1.0); TOT PROT 5.1 g/dl (6.4-8.2)
[2016-06-12] MEDS: INSULIN SLIDING SCALE (NOVOLOG) 1 VIAL SQ SCH ×3 (06:56→17:42)
--- NOTE | 2016-06-12 08:09 | PN ---
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, Physician - Current Medication List Current Medications: Active Medications Acetaminophen (Tylenol -) 650 mg PO Q4H PRN PRN Reason: FEVER OR PAIN Last Admin: 06/11/16 22:33 Dose: 650 mg Albuterol Sulfate (Ventolin 0.083% Nebulizer Soln -) 1 amp NEB Q4H PRN PRN Reason: SHORT OF BREATH/WHEEZING Albuterol/Ipratropium (Duoneb -) 1 amp NEB QIDR [facility] Last Admin: 06/12/16 06:13 Dose: 1 amp Alprazolam (Xanax -) 0.25 mg PO Q6H PRN PRN Reason: ANXIETY Last Admin: 06/11/16 22:36 Dose: 0.25 mg Aspirin (Asa -) 81 mg NGT DAILY [facility] Last Admin: 06/11/16 09:46 Dose: 81 mg Atorvastatin Calcium (Lipitor -) 80 mg PO HS [facility] Last Admin: 06/11/16 22:31 Dose: 80 mg Diltiazem HCl (Cardizem -) 30 mg PO QID [facility] Last Admin: 06/11/16 22:33 Dose: 30 mg Docusate Sodium (Colace -) 100 mg PO DAILY [facility] Last Admin: 06/11/16 09:44 Dose: Not Given Enalapril Maleate (Vasotec -) 5 mg NGT BID [facility] Last Admin: 06/11/16 22:37 Dose: 5 mg Enoxaparin Sodium (Lovenox -) 40 mg SQ BID [facility] Last Admin: 06/11/16 22:32 Dose: 40 mg Hydralazine HCl (Apresoline -) 10 mg NGT TID [facility] Last Admin: 06/12/16 06:03 Dose: 10 mg Fentanyl 500 mcg/ Dextrose 100 mls @ 15 mls/hr IVPB TITR [facility]; 75 MCG/HR PRN Reason: Protocol Last Admin: 06/11/16 14:42 Dose: Not Given Insulin Aspart (Novolog Vial Sliding Scale -) 1 vial SQ TIDAC [facility] PRN Reason: Protocol Last Admin: 06/12/16 06:56 Dose: 1 units Pantoprazole Sodium (Protonix 40mg Ivpb (Pre-Docked)) 40 mg IVPB DAILY [facility] Last Admin: 06/11/16 09:45 Dose: 40 mg Prednisone (Deltasone -) 40 mg NGT DAILY [facility] Last Admin: 06/11/16 09:44 Dose: 40 mg - Objective Vital Signs: Vital Signs Temperature 98.4 F 06/12/16 05:44 Pulse Rate 66 06/12/16 07:00 Respiratory Rate 18 06/12/16 07:19 Blood Pressure 156/61 06/12/16 07:00 O2 Sat by Pulse Oximetry (%) 100 06/11/16 20:00 Labs: CBC, BMP 06/12/16 05:00 06/12/16 05:00 INR, PTT INR 1.02 (0.82-1.09) 06/09/16 05:05 Laboratory Tests 06/12/16 06/12/16 05:00 05:00 WBC 11.4 H Hct 30.9 L Plt Count 231 Potassium 4.5 Creatinine 0.5 L Total Bilirubin 0.3 D AST 17 D ALT 21 D Alkaline Phosphatase 52 Assessment/Plan Influenza with acute respiratory failure, now with difficulty weaning Anemia NSTEMI History breast cancer, lung mass with negative bx COPD, chronic with chronic hypoxemia Mild PSVT Chronic diastolic CHF Carotid stenosis s/p CEA REC: 1. Acute respiratory failure: -+ influenza -re-intubated -pulm to evaluate re vent management, refused trach; Currently on 30%FIO2 2. NSTEMI/PSVT: -in setting of acute illness, acute resp failure -suspected underlying CAD -On ASA -has refused cath on multiple occasions -Repeat echo w/ normal LV fxn. Mild -Rate control of PSVT with Cardizem or Verapamil which she responds well to
--- NOTE | 2016-06-12 09:01 | PN ---
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 (short form) - Note 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: Patient seen and examined in the ICU. Remains intubated, awake off sedation. Mildly tachypneic on AC mode of vent. Not able to be weaned. CXR: ETT in place / slight worsening of layering effusion on the right/left. Intake & Output 06/09/16 06/10/16 06/11/16 06/12/16 23:59 23:59 23:59 23:59 Intake Total 1180 1460 1370 630 Output Total 1100 1700 1700 400 Balance 80 -240 -330 230 Weight 133 lb 13.129 oz 132 lb 13.129 oz 132 lb 13.129 oz 132 lb 5 oz Last Vital Signs Temp Pulse Resp BP Pulse Ox 98.4 F 66 18 156/61 100 06/12/16 05:44 06/12/16 07:00 06/12/16 07:19 06/12/16 07:00 06/11/16 20:00 Active Medications Acetaminophen (Tylenol -) 650 mg PO Q4H PRN PRN Reason: FEVER OR PAIN Last Admin: 06/11/16 22:33 Dose: 650 mg Albuterol Sulfate (Ventolin 0.083% Nebulizer Soln -) 1 amp NEB Q4H PRN PRN Reason: SHORT OF BREATH/WHEEZING Albuterol/Ipratropium (Duoneb -) 1 amp NEB QIDR [facility] Last Admin: 06/12/16 06:13 Dose: 1 amp Alprazolam (Xanax -) 0.25 mg PO Q6H PRN PRN Reason: ANXIETY Last Admin: 06/11/16 22:36 Dose: 0.25 mg Aspirin (Asa -) 81 mg NGT DAILY [facility] Last Admin: 06/11/16 09:46 Dose: 81 mg Atorvastatin Calcium (Lipitor -) 80 mg PO HS [facility] Last Admin: 06/11/16 22:31 Dose: 80 mg Diltiazem HCl (Cardizem -) 30 mg PO QID [facility] Last Admin: 06/11/16 22:33 Dose: 30 mg Docusate Sodium (Colace -) 100 mg PO DAILY [facility] Last Admin: 06/11/16 09:44 Dose: Not Given Enalapril Maleate (Vasotec -) 5 mg NGT BID [facility] Last Admin: 06/11/16 22:37 Dose: 5 mg Enoxaparin Sodium (Lovenox -) 40 mg SQ BID [facility] Last Admin: 06/11/16 22:32 Dose: 40 mg Hydralazine HCl (Apresoline -) 10 mg NGT TID [facility] Last Admin: 06/12/16 06:03 Dose: 10 mg Fentanyl 500 mcg/ Dextrose 100 mls @ 15 mls/hr IVPB TITR [facility]; 75 MCG/HR PRN Reason: Protocol Last Admin: 06/11/16 14:42 Dose: Not Given Insulin Aspart (Novolog Vial Sliding Scale -) 1 vial SQ TIDAC [facility] PRN Reason: Protocol Last Admin: 06/12/16 06:56 Dose: 1 units Pantoprazole Sodium (Protonix 40mg Ivpb (Pre-Docked)) 40 mg IVPB DAILY [facility] Last Admin: 06/11/16 09:45 Dose: 40 mg Prednisone (Deltasone -) 40 mg NGT DAILY [facility] Last Admin: 06/11/16 09:44 Dose: 40 mg Gen: intubated, awake Heart: RRR Lung: scattered rhonchi Abd: soft, nontender Ext: no edema Laboratory Results - last 24 hr 06/11/16 06/11/16 06/12/16 11:40 16:50 05:00 WBC 11.4 H RBC 4.17 Hgb 9.6 L Hct 30.9 L MCV 74.0 L MCHC 31.2 L RDW 25.7 H Plt Count 231 MPV 9.2 Sodium Potassium Chloride Carbon Dioxide Anion Gap BUN Creatinine Creat Clearance w eGFR POC Glucometer [phone] Random Glucose Calcium Magnesium Total Bilirubin AST ALT Alkaline Phosphatase Total Protein Albumin 06/12/16 05:00 WBC RBC Hgb Hct MCV MCHC RDW Plt Count MPV Sodium 141 Potassium 4.5 Chloride 102 Carbon Dioxide 33 H Anion Gap 6 L BUN 16 Creatinine 0.5 L Creat Clearance w eGFR > 60 POC Glucometer Random Glucose 151 H D Calcium 8.3 L Magnesium 2.2 Total Bilirubin 0.3 D AST 17 D ALT 21 D Alkaline Phosphatase 52 Total Protein 5.1 L Albumin 1.9 L ASSESSMENT AND PLAN: Acute on Chronic Hypoxic and Hypercapneic Respiratory Failure Influenza A s/p treatment Acute COPD Exacerbation CAD +Troponins/Acute NSTEMI Lactic Acidosis resolved h/o Breast Ca 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
[2016-06-12] MEDS ORDERED: PT OWN MED DRAWER 7, Y5N ONE (09:15)
[2016-06-12] MEDS ORDERED: FUROSEMIDE 40 MG/4 ML INJECTABLE VIAL IVPUSH ONE (09:15)
[2016-06-12] MEDS: morphine CARPU-JECT 2 MG/1 ML DISP.SYRIN IVPUSH PRN ×2 (09:20→23:45)
[2016-06-12] MEDS: PANTOPRAZOLE SODIUM 40 MG/100 ML PRE-DOCKED IVPB SCH (09:22)
[2016-06-12] MEDS: predniSONE 20 MG TABLET (UD) NGT SCH (09:22)
[2016-06-12] MEDS: ACETAMINOPHEN 325 MG TABLET (FP) PO PRN (09:23)
[2016-06-12] MEDS: ALPRAZolam 0.25 MG TABLET PO PRN ×3 (09:24→22:01)
[2016-06-12] MEDS: ENOXAPARIN NA (PORCINE) 40 MG/0.4 ML DISP.SYRIN SQ SCH ×3 (09:25→22:01)
[2016-06-12] MEDS: ENALAPRIL MALEATE 5 MG TABLET (FP) NGT SCH ×2 (09:25→22:01)
[2016-06-12] MEDS: dilTIAZem HCL 30 MG TABLET (FP) PO SCH ×4 (10:00→22:00)
[2016-06-12] MEDS: ASPIRIN 81 MG CHEWABLE TABLETS NGT SCH (13:56)
[2016-06-12] MEDS: DOCUSATE SODIUM 100 MG CAPSULE (FP) PO SCH (13:58)
[2016-06-12] MEDS: FENTANYL INJECTION 500 MCG in DEXTROSE 5%-WATER - 90 ML IVPB SCH (16:14)
--- NOTE | 2016-06-12 17:48 | PN ---
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, Physician History of Present Illness: continues to be intubated no other events still failure to extubate - Current Medication List Current Medications: Active Medications Acetaminophen (Tylenol -) 650 mg PO Q4H PRN PRN Reason: FEVER OR PAIN Last Admin: 06/12/16 09:23 Dose: 650 mg Albuterol Sulfate (Ventolin 0.083% Nebulizer Soln -) 1 amp NEB Q4H PRN PRN Reason: SHORT OF BREATH/WHEEZING Albuterol/Ipratropium (Duoneb -) 1 amp NEB QIDR [facility] Last Admin: 06/12/16 11:40 Dose: 1 amp Alprazolam (Xanax -) 0.25 mg PO Q6H PRN PRN Reason: ANXIETY Last Admin: 06/12/16 16:16 Dose: 0.25 mg Aspirin (Asa -) 81 mg NGT DAILY [facility] Last Admin: 06/12/16 13:56 Dose: 81 mg Atorvastatin Calcium (Lipitor -) 80 mg PO HS [facility] Last Admin: 06/11/16 22:31 Dose: 80 mg Diltiazem HCl (Cardizem -) 30 mg PO QID [facility] Last Admin: 06/12/16 17:41 Dose: 30 mg Docusate Sodium (Colace -) 100 mg PO DAILY [facility] Last Admin: 06/12/16 13:58 Dose: Not Given Enalapril Maleate (Vasotec -) 5 mg NGT BID [facility] Last Admin: 06/12/16 09:25 Dose: 5 mg Enoxaparin Sodium (Lovenox -) 40 mg SQ BID [facility] Last Admin: 06/12/16 10:00 Dose: Not Given Hydralazine HCl (Apresoline -) 10 mg NGT TID [facility] Last Admin: 06/12/16 13:55 Dose: 10 mg Insulin Aspart (Novolog Vial Sliding Scale -) 1 vial SQ TIDAC [facility] PRN Reason: Protocol Last Admin: 06/12/16 17:42 Dose: Not Given Morphine Sulfate (Morphine Injection -) 2 mg IVPUSH Q3H PRN PRN Reason: PAIN Last Admin: 06/12/16 09:20 Dose: 2 mg Pantoprazole Sodium (Protonix 40mg Ivpb (Pre-Docked)) 40 mg IVPB DAILY [facility] Last Admin: 06/12/16 09:22 Dose: 40 mg Prednisone (Deltasone -) 40 mg NGT DAILY [facility] Last Admin: 06/12/16 09:22 Dose: 40 mg - Objective Vital Signs: Vital Signs Temperature 97.8 F 06/12/16 13:00 Pulse Rate 102 H 06/12/16 15:00 Respiratory Rate 20 06/12/16 16:51 Blood Pressure 132/61 06/12/16 15:00 O2 Sat by Pulse Oximetry (%) 100 06/11/16 20:00 Constitutional: Yes: No Distress, Calm Neck: Yes: Other Cardiovascular: Yes: Regular Rate and Rhythm Respiratory: Yes: Intubated, Mechanically Ventilated Gastrointestinal: Yes: Normal Bowel Sounds, Soft Musculoskeletal: Yes: WNL Extremities: Yes: WNL Neurological: Yes: Alert, Oriented Psychiatric: Yes: Alert, Oriented Labs: CBC, BMP 06/12/16 05:00 06/12/16 05:00 INR, PTT INR 1.02 (0.82-1.09) 06/09/16 05:05 - ....Imaging Chest X-ray: Report Reviewed, Image Reviewed Assessment/Plan Problem List - Problems (1) Respiratory failure Code(s): J96.90 - RESPIRATORY FAILURE, UNSP, UNSP W HYPOXIA OR HYPERCAPNIA Qualifiers: Chronicity: acute Respiratory failure complication: hypoxia and hypercapnia Qualified Code(s): J96.01 - Acute respiratory failure with hypoxia (2) Chronic respiratory failure with hypoxia Code(s): J96.11 - CHRONIC RESPIRATORY FAILURE WITH HYPOXIA (3) CAD (coronary artery disease) Code(s): I25.10 - ATHSCL HEART DISEASE OF [place] CORONARY ARTERY W/O ANG PCTRS (4) COPD (chronic obstructive pulmonary disease) Assessment/Plan: intubated Code(s): J44.9 - CHRONIC OBSTRUCTIVE PULMONARY DISEASE, UNSPECIFIED (5) Chronic diastolic CHF (congestive heart failure) Code(s): I50.32 - CHRONIC DIASTOLIC (CONGESTIVE) HEART FAILURE (6) HLD (hyperlipidemia) Code(s): E78.5 - HYPERLIPIDEMIA, UNSPECIFIED Qualifiers: Hyperlipidemia type: unspecified Qualified Code(s): E78.5 - Hyperlipidemia, unspecified (7) HTN (hypertension) Code(s): I10 - ESSENTIAL (PRIMARY) HYPERTENSION Qualifiers: Hypertension type: essential hypertension Qualified Code(s): I10 - Essential (primary) hypertension (8) History of cigarette smoking Code(s): Z87.891 - PERSONAL HISTORY OF NICOTINE DEPENDENCE +Troponins/Acute NSTEMI Lactic Acidosis h/o Breast Ca 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
--- NOTE | 2016-06-12 20:39 | PN ---
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, Physician - Current Medication List Current Medications: Active Medications Acetaminophen (Tylenol -) 650 mg PO Q4H PRN PRN Reason: FEVER OR PAIN Last Admin: 06/12/16 09:23 Dose: 650 mg Albuterol Sulfate (Ventolin 0.083% Nebulizer Soln -) 1 amp NEB Q4H PRN PRN Reason: SHORT OF BREATH/WHEEZING Albuterol/Ipratropium (Duoneb -) 1 amp NEB QIDR [facility] Last Admin: 06/12/16 19:15 Dose: 1 amp Alprazolam (Xanax -) 0.25 mg PO Q6H PRN PRN Reason: ANXIETY Last Admin: 06/12/16 16:16 Dose: 0.25 mg Aspirin (Asa -) 81 mg NGT DAILY [facility] Last Admin: 06/12/16 13:56 Dose: 81 mg Atorvastatin Calcium (Lipitor -) 80 mg PO HS [facility] Last Admin: 06/11/16 22:31 Dose: 80 mg Diltiazem HCl (Cardizem -) 30 mg PO QID [facility] Last Admin: 06/12/16 17:41 Dose: 30 mg Docusate Sodium (Colace -) 100 mg PO DAILY [facility] Last Admin: 06/12/16 13:58 Dose: Not Given Enalapril Maleate (Vasotec -) 5 mg NGT BID [facility] Last Admin: 06/12/16 09:25 Dose: 5 mg Enoxaparin Sodium (Lovenox -) 40 mg SQ BID [facility] Last Admin: 06/12/16 10:00 Dose: Not Given Hydralazine HCl (Apresoline -) 10 mg NGT TID [facility] Last Admin: 06/12/16 13:55 Dose: 10 mg Insulin Aspart (Novolog Vial Sliding Scale -) 1 vial SQ TIDAC [facility] PRN Reason: Protocol Last Admin: 06/12/16 17:42 Dose: Not Given Morphine Sulfate (Morphine Injection -) 2 mg IVPUSH Q3H PRN PRN Reason: PAIN Last Admin: 06/12/16 09:20 Dose: 2 mg Pantoprazole Sodium (Protonix 40mg Ivpb (Pre-Docked)) 40 mg IVPB DAILY [facility] Last Admin: 06/12/16 09:22 Dose: 40 mg Prednisone (Deltasone -) 40 mg NGT DAILY [facility] Last Admin: 06/12/16 09:22 Dose: 40 mg - Objective Vital Signs: Vital Signs Temperature 97.8 F 06/12/16 13:00 Pulse Rate 88 06/12/16 19:00 Respiratory Rate 24 06/12/16 19:13 Blood Pressure 133/59 06/12/16 19:00 O2 Sat by Pulse Oximetry (%) 100 06/11/16 20:00 Labs: CBC, BMP 06/12/16 05:00 06/12/16 05:00 INR, PTT INR 1.02 (0.82-1.09) 06/09/16 05:05 Problem List - Problems (1) Anemia Code(s): D64.9 - ANEMIA, UNSPECIFIED (2) Influenza Code(s): J11.1 - FLU DUE TO UNIDENTIFIED INFLUENZA VIRUS W OTH RESP MANIFEST (3) NSTEMI (non-ST elevated myocardial infarction) Code(s): I21.4 - NON-ST ELEVATION (NSTEMI) MYOCARDIAL INFARCTION (4) Respiratory failure Code(s): J96.90 - RESPIRATORY FAILURE, UNSP, UNSP W HYPOXIA OR HYPERCAPNIA Qualifiers: Chronicity: acute Respiratory failure complication: hypoxia and hypercapnia Qualified Code(s): J96.01 - Acute respiratory failure with hypoxia
[2016-06-12] MEDS: ATORVASTATIN CA 80 MG TABLET (FP) PO SCH (22:00)
[2016-06-13] MEDS: morphine CARPU-JECT 2 MG/1 ML DISP.SYRIN IVPUSH PRN ×3 (03:22→15:22)
[2016-06-13] MEDS: ALBUTEROL SO4 2.5/IPRATROPIUM 0.5 INH SOL 3 ML VIAL.NEB. NEB SCH ×5 (05:50→23:01)
[2016-06-13 06:21] LABS: MCH 23.4 pg (25.7-33.7); MCHC 31.4 g/dl (32.0-36.0); MEAN CELL VOLUME 74.5 fl (80-96); MEAN PLT VOLUME 9.1 fl (7.5-11.1); PLATELET COUNT 237 K/MM3 (134-434); RDW 26.2 % (11.6-15.6); WHITE BLOOD COUNT 9.9 K/mm3 (4.0-10.0)
[2016-06-13] MEDS: hydrALAZINE HCL 10 MG TABLET NGT SCH ×3 (06:22→21:10)
[2016-06-13] MEDS: INSULIN SLIDING SCALE (NOVOLOG) 1 VIAL SQ SCH ×3 (06:23→16:14)
[2016-06-13 06:44] LABS: ANION GAP 7 (8-16); CALCIUM 8.5 mg/dL (8.5-10.1); CO2 33 mmol/L (21-32); CREATININE 0.5 mg/dL (0.55-1.02); GLUCOSE,RANDOM 183 mg/dL (74-106); MAGNESIUM 2.2 mg/dL (1.8-2.4); SGOT/AST 16 U/L (15-37); SGPT/ALT 19 U/L (12-78)
[2016-06-13 06:46] LABS: ALK PHOS 55 U/L (45-117); BILIRUBIN,TOTAL 0.3 mg/dL (0.2-1.0); TOT PROT 5.3 g/dl (6.4-8.2)
[2016-06-13] MEDS ORDERED: PT OWN MED DRAWER 7, Y5N ONE ×4 (09:14→21:09)
[2016-06-13] MEDS: dilTIAZem HCL 30 MG TABLET (FP) PO SCH ×4 (09:25→21:10)
[2016-06-13] MEDS: DOCUSATE SODIUM 100 MG CAPSULE (FP) PO SCH (09:25)
[2016-06-13] MEDS: predniSONE 20 MG TABLET (UD) NGT SCH (09:25)
[2016-06-13] MEDS: ENALAPRIL MALEATE 5 MG TABLET (FP) NGT SCH ×2 (09:25→21:10)
[2016-06-13] MEDS: PANTOPRAZOLE SODIUM 40 MG/100 ML PRE-DOCKED IVPB SCH (09:25)
[2016-06-13] MEDS: ASPIRIN 81 MG CHEWABLE TABLETS NGT SCH (09:26)
[2016-06-13] MEDS: ENOXAPARIN NA (PORCINE) 40 MG/0.4 ML DISP.SYRIN SQ SCH (09:33)
[2016-06-13] MEDS ORDERED: ALBUTEROL SO4 2.5/IPRATROPIUM 0.5 INH SOL 3 ML VIAL.NEB. NEB ONE (11:33)
--- NOTE | 2016-06-13 11:36 | PN ---
Teaching Attending Note Name of Resident: Conrad Pagan ATTENDING PHYSICIAN STATEMENT I saw and evaluated the patient. I reviewed the resident's note and discussed the case with the resident. I agree with the resident's findings and plan as documented. SUBJECTIVE: Pt seen and examined in the ICU. Remains intubated, awake. Tolerating SIMV RR 6 PS 10, started CPAP/PS, able to taper to 8/5 but tachypneic on 5/5, placed back on SIMV RR 5 PS 5. OBJECTIVE: Last Vital Signs Temp Pulse Resp BP Pulse Ox 98.0 F 88 26 H 148/56 95 06/13/16 10:00 06/13/16 10:12 06/13/16 10:00 06/13/16 10:00 06/13/16 10:12 Intake & Output 06/10/16 06/11/16 06/12/16 06/13/16 23:59 23:59 23:59 23:59 Intake Total 1460 1370 630 630 Output Total 1700 1700 1700 500 Balance -240 -330 -1070 130 Weight 132 lb 13.129 oz 132 lb 13.129 oz 132 lb 5 oz 130 lb 9.6 oz Gen: intubated, awake Heart: RRR Lung: distant breath sounds, less rhonchi and wheezes Abd: soft, nontender Ext: no edema CBC, BMP 06/13/16 05:20 06/13/16 05:20 Active Medications Acetaminophen (Tylenol -) 650 mg PO Q4H PRN PRN Reason: FEVER OR PAIN Last Admin: 06/12/16 09:23 Dose: 650 mg Albuterol/Ipratropium (Duoneb -) 1 amp NEB QIDR [facility] Alprazolam (Xanax -) 0.25 mg PO Q6H PRN PRN Reason: ANXIETY Last Admin: 06/12/16 22:01 Dose: 0.25 mg Aspirin (Asa -) 81 mg NGT DAILY [facility] Last Admin: 06/13/16 09:26 Dose: 81 mg Atorvastatin Calcium (Lipitor -) 80 mg PO HS [facility] Last Admin: 06/12/16 22:00 Dose: 80 mg Diltiazem HCl (Cardizem -) 30 mg PO QID [facility] Last Admin: 06/13/16 09:25 Dose: 30 mg Docusate Sodium (Colace -) 100 mg PO DAILY [facility] Last Admin: 06/13/16 09:25 Dose: 100 mg Enalapril Maleate (Vasotec -) 5 mg NGT BID [facility] Last Admin: 06/13/16 09:25 Dose: 5 mg Enoxaparin Sodium (Lovenox -) 40 mg SQ BID [facility] Last Admin: 06/13/16 09:33 Dose: 40 mg Furosemide (Lasix Injection -) 40 mg IVPUSH ONCE ONE Stop: 06/13/16 12:01 Last Admin: 06/13/16 11:35 Dose: 40 mg Hydralazine HCl (Apresoline -) 10 mg NGT TID [facility] Last Admin: 06/13/16 06:22 Dose: 10 mg Insulin Aspart (Novolog Vial Sliding Scale -) 1 vial SQ TIDAC [facility] PRN Reason: Protocol Last Admin: 06/13/16 10:41 Dose: 1 units Morphine Sulfate (Morphine Injection -) 2 mg IVPUSH Q3H PRN PRN Reason: PAIN Last Admin: 06/13/16 09:26 Dose: 2 mg Pantoprazole Sodium (Protonix 40mg Ivpb (Pre-Docked)) 40 mg IVPB DAILY [facility] Last Admin: 06/13/16 09:25 Dose: 40 mg Prednisone (Deltasone -) 40 mg NGT DAILY [facility] Last Admin: 06/13/16 09:25 Dose: 40 mg ASSESSMENT AND PLAN: Acute on Chronic Hypoxic and Hypercapneic Respiratory Failure Influenza A s/p treatment Acute COPD Exacerbation CAD +Troponins/Acute NSTEMI Lactic Acidosis resolved h/o Breast Ca Lung Nodules with recent biopsy showing necrotizing granulomas Smoker - s/p antibiotics - inhaled bronchodilators - continue prednisone same dose - O2 to keep SpO2 >90% - SIMV trials as tolerated - dose lasix 40mg today - ASA - enteral feeds - DVT/GI prophylaxis - continue ICU monitoring - hope to extubate in next 1-2 days
--- NOTE | 2016-06-13 11:53 | PN ---
Physical Exam: SUBJECTIVE: Patient seen and examined at bedside in the ICU. She's still intubated and would like to be extubated. No complaint overnight. Tolerated trial of CPAP with PSV 5 for ~30 mins and had to be back on SIMV mode. OBJECTIVE: Intubation day 10 on mechanical ventilation; Mode: SIMV, Mandatory Rate: 5, TV: 350, FiO2: 30%, PEEP: 5, PSV: 5 Vital Signs Period Temp Pulse Resp BP Sys/Rasheed Pulse Ox Last 24 Hr 97.8 F-98.9 F 68-102 18-27 130-150/50-69 95-100 GENERAL: AAO x 3, calm and cooperative HEAD: AT, NC EYES: Pupils equal, round and reactive to light, sclera anicteric, conjunctiva clear EARS, NOSE, THROAT: nares patent oropharynx clear without exudates LUNGS: CTAB HEART: RRR, S1 and S2, ejection murmur, rub ABDOMEN: +bs, soft, non-tender, no rebound, guarding EXTREMITIES: No peripheral edema. CBCD WBC 9.9 K/mm3 (4.0-10.0) 06/13/16 05:20 RBC 4.21 M/mm3 (3.60-5.2) 06/13/16 05:20 Hgb 9.8 GM/dL (10.7-15.3) L 06/13/16 05:20 Hct 31.4 % (32.4-45.2) L 06/13/16 05:20 MCV 74.5 fl (80-96) L 06/13/16 05:20 MCHC 31.4 g/dl (32.0-36.0) L 06/13/16 05:20 RDW 26.2 % (11.6-15.6) H 06/13/16 05:20 Plt Count 237 K/MM3 (134-434) 06/13/16 05:20 MPV 9.1 fl (7.5-11.1) 06/13/16 05:20 CMP Sodium 142 mmol/L (136-145) 06/13/16 05:20 Potassium 4.6 mmol/L (3.5-5.1) 06/13/16 05:20 Chloride 102 mmol/L (98-107) 06/13/16 05:20 Carbon Dioxide 33 mmol/L (21-32) H 06/13/16 05:20 Anion Gap 7 (8-16) L 06/13/16 05:20 BUN 19 mg/dL (7-18) H 06/13/16 05:20 Creatinine 0.5 mg/dL (0.55-1.02) L 06/13/16 05:20 Creat Clearance w eGFR > 60 (>60) 06/13/16 05:20 Calcium 8.5 mg/dL (8.5-10.1) 06/13/16 05:20 Total Bilirubin 0.3 mg/dL (0.2-1.0) 06/13/16 05:20 AST 16 U/L (15-37) 06/13/16 05:20 ALT 19 U/L (12-78) 06/13/16 05:20 Alkaline Phosphatase 55 U/L (45-117) 06/13/16 05:20 Total Protein 5.3 g/dl (6.4-8.2) L 06/13/16 05:20 Albumin 2.0 g/dl (3.4-5.0) L 06/13/16 05:20 Intake & Output 06/10/16 06/11/16 06/12/16 06/13/16 23:59 23:59 23:59 23:59 Intake Total 1460 1370 630 630 Output Total 1700 1700 1700 500 Balance -240 -330 -1070 130 Weight 60.246 kg 60.246 kg 60.016 kg 59.239 kg Active Medications Generic Name Dose Route Start Last Admin Trade Name Freq PRN Reason Stop Dose Admin Acetaminophen 650 mg 06/04/16 02:00 06/12/16 09:23 Tylenol - PO 650 mg Q4H PRN Administration FEVER OR PAIN Albuterol/Ipratropium 1 amp 06/13/16 12:00 Duoneb - NEB QIDR [facility] Alprazolam 0.25 mg 06/11/16 15:56 06/12/16 22:01 Xanax - PO 0.25 mg Q6H PRN Administration ANXIETY Aspirin 81 mg 06/10/16 11:45 06/13/16 09:26 Asa - NGT 81 mg DAILY [facility] Administration Atorvastatin Calcium 80 mg 05/31/16 22:00 06/12/16 22:00 Lipitor - PO 80 mg HS [facility] Administration Diltiazem HCl 30 mg 06/07/16 14:00 06/13/16 09:25 Cardizem - PO 30 mg QID [facility] Administration Docusate Sodium 100 mg 05/31/16 10:00 06/13/16 09:25 Colace - PO 100 mg DAILY [facility] Administration Enalapril Maleate 5 mg 06/09/16 22:00 06/13/16 09:25 Vasotec - NGT 5 mg BID [facility] Administration Enoxaparin Sodium 40 mg 06/14/16 10:00 Lovenox - SQ DAILY [facility] Furosemide 40 mg 06/13/16 12:00 06/13/16 11:35 Lasix Injection - IVPUSH 06/13/16 12:01 40 mg ONCE ONE Administration Hydralazine HCl 10 mg 06/07/16 14:00 06/13/16 06:22 Apresoline - NGT 10 mg TID [facility] Administration Insulin Aspart 1 vial 05/31/16 07:00 06/13/16 10:41 Novolog Vial Sliding Scale - SQ 1 units TIDAC [facility] Administration Protocol Morphine Sulfate 2 mg 06/12/16 09:02 06/13/16 09:26 Morphine Injection - IVPUSH 2 mg Q3H PRN Administration PAIN Pantoprazole Sodium 40 mg 05/31/16 10:00 06/13/16 09:25 Protonix 40mg Ivpb (Pre-Docked) IVPB 40 mg DAILY [facility] Administration Prednisone 40 mg 06/11/16 10:00 06/13/16 09:25 Deltasone - NGT 40 mg DAILY [facility] Administration Microbiology 05/30/16 23:30 Nasopharyngeal Swab Influenza Types A positive 06/08/16: Urine grew yeast like organism Imaging CXR on 06/13: no significant change ECHO: normal LV function ASSESSMENT/PLAN: 75 yo F h/o COPD with chronic bronchitis on home O2, HTN, HLD, CHF, CAD, stable AAA, left breast CA s/p lumpectomy and radiation therapy, remote history of intracranial bleed admitted to the ICU for acute on chronic hypercapneic respiratory failure in the setting of COPD and CHF exacerbation and flu. Respiratory: acute on chronic hypercapneic respiratory failure - Intubation day 10 * SIMV mode during day and A/C mode at night * Patient still refuses trach - Nebulizers [facility] and PRN - Predisone 40mg NGT BID - One dose of lasix 40mg PUSH today - CXR QOD ID: Sepsis 2/2 influenza A - Completed tamiflu zosyn and azitromycin courses - Afrebile and normal WBC Cardiac: NSTEMI vs. Demand ischemia; HTN - On ASA - SVT on cardiazem - Vasotec and hydralazine NGT for BP control Heme: Microcytic anemia - HGB stable - Monitor H&H - Transfuse if < 9 per GI FEN - No IVF indicated - Normal lytes, cont. to monitor - Tube feed osmolite Prophylaxis - DVT: lovenox - GI: daily PPI Disposition - Cont. to monitor in ICU - Cont. daily weaning since patient refuses trach Code status - Full code Visit type - Emergency Visit Emergency Visit: No - New Patient This patient is new to me today: No - Critical Care Critical Care patient: Yes Total Critical Care Time (in minutes): 35 Critical Care Statement: The care of this patient involved high complexity decision making to prevent further life threatening deterioration of the patient 's condition and/or to evalute & treat vital organ system(s) failure or risk of failure.
[2016-06-13] MEDS ORDERED: FUROSEMIDE 40 MG/4 ML INJECTABLE VIAL IVPUSH ONE (12:00)
--- NOTE | 2016-06-13 12:30 | PN ---
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, Physician History of Present Illness: seen and examined today. awake, alert, oriented. still intubated. cpap trial this am, then placed back on simv. no overnight events. no new complaints. - Current Medication List Current Medications: Active Medications Acetaminophen (Tylenol -) 650 mg PO Q4H PRN PRN Reason: FEVER OR PAIN Last Admin: 06/12/16 09:23 Dose: 650 mg Albuterol/Ipratropium (Duoneb -) 1 amp NEB QIDR [facility] Last Admin: 06/13/16 12:00 Dose: 1 amp Alprazolam (Xanax -) 0.25 mg PO Q6H PRN PRN Reason: ANXIETY Last Admin: 06/12/16 22:01 Dose: 0.25 mg Aspirin (Asa -) 81 mg NGT DAILY [facility] Last Admin: 06/13/16 09:26 Dose: 81 mg Atorvastatin Calcium (Lipitor -) 80 mg PO HS [facility] Last Admin: 06/12/16 22:00 Dose: 80 mg Diltiazem HCl (Cardizem -) 30 mg PO QID [facility] Last Admin: 06/13/16 09:25 Dose: 30 mg Docusate Sodium (Colace -) 100 mg PO DAILY [facility] Last Admin: 06/13/16 09:25 Dose: 100 mg Enalapril Maleate (Vasotec -) 5 mg NGT BID [facility] Last Admin: 06/13/16 09:25 Dose: 5 mg Enoxaparin Sodium (Lovenox -) 40 mg SQ DAILY [facility] Hydralazine HCl (Apresoline -) 10 mg NGT TID [facility] Last Admin: 06/13/16 06:22 Dose: 10 mg Insulin Aspart (Novolog Vial Sliding Scale -) 1 vial SQ TIDAC [facility] PRN Reason: Protocol Last Admin: 06/13/16 10:41 Dose: 1 units Morphine Sulfate (Morphine Injection -) 2 mg IVPUSH Q3H PRN PRN Reason: PAIN Last Admin: 06/13/16 09:26 Dose: 2 mg Pantoprazole Sodium (Protonix 40mg Ivpb (Pre-Docked)) 40 mg IVPB DAILY [facility] Last Admin: 06/13/16 09:25 Dose: 40 mg Prednisone (Deltasone -) 40 mg NGT DAILY [facility] Last Admin: 06/13/16 09:25 Dose: 40 mg - Objective Vital Signs: Vital Signs Temperature 98.0 F 06/13/16 10:00 Pulse Rate 88 06/13/16 10:12 Respiratory Rate 18 06/13/16 11:58 Blood Pressure 148/56 06/13/16 10:00 O2 Sat by Pulse Oximetry (%) 95 06/13/16 12:00 Constitutional: Yes: Well Nourished, No Distress, Calm Eyes: Yes: WNL, Conjunctiva Clear, EOM Intact, PERRL HENT: Yes: WNL, Atraumatic, Normocephalic Neck: Yes: WNL, Supple, Trachea Midline Cardiovascular: Yes: Regular Rate and Rhythm, Murmur, S1, S2. No: Bradycardia, Tachycardia, Pulse Irregular, Bruit, JVD, Gallop, Rub, S3, S4, Varicosities Respiratory: Yes: Regular, Diminished, Intubated, Mechanically Ventilated, Rhonchi. No: Rales, Wheezes Gastrointestinal: Yes: WNL, Normal Bowel Sounds, Soft. No: Distention, Tenderness Musculoskeletal: Yes: WNL Extremities: Yes: WNL Edema: No Peripheral Pulses WNL: Yes Peripheral Pulses: Left Doralis Pedis: 2+, Right Dorsalis Pedis: 2+ Integumentary: Yes: WNL Neurological: Yes: Alert, Oriented Psychiatric: Yes: Alert, Oriented Labs: CBC, BMP 06/13/16 05:20 06/13/16 05:20 INR, PTT INR 1.02 (0.82-1.09) 06/09/16 05:05 - ....Imaging Chest X-ray: Report Reviewed, Image Reviewed EKG: Report Reviewed, Image Reviewed Other: Report Reviewed, Image Reviewed (tele-nsr, brief episode PSVT) Assessment/Plan Influenza with acute respiratory failure, now with difficulty weaning Anemia NSTEMI History breast cancer, lung mass with negative bx COPD, chronic with chronic hypoxemia Mild PSVT Chronic diastolic CHF Carotid stenosis s/p CEA REC: Acute respiratory failure requiring intubation, + influenza -cpap trial this am then placed back on simv -wean vent as tolerates, refusing trach -given lasix this am, cont to dose prn NSTEMI/PSVT: -in setting of acute illness, acute resp failure -known underlying CAD with suspected chronic angina -On ASA -has refused cath on multiple occasions -Repeat echo w/ normal LV fxn. Mild -Rate control of PSVT with Cardizem or Verapamil
[2016-06-13] MEDS: ALPRAZolam 0.25 MG TABLET PO PRN (13:13)
--- NOTE | 2016-06-13 17:36 | PN ---
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, Physician History of Present Illness: stable no changes still unable to extubate no other issues - Current Medication List Current Medications: Active Medications Acetaminophen (Tylenol -) 650 mg PO Q4H PRN PRN Reason: FEVER OR PAIN Last Admin: 06/12/16 09:23 Dose: 650 mg Albuterol/Ipratropium (Duoneb -) 1 amp NEB QIDR [facility] Last Admin: 06/13/16 17:06 Dose: 1 amp Alprazolam (Xanax -) 0.25 mg PO Q6H PRN PRN Reason: ANXIETY Last Admin: 06/13/16 13:13 Dose: 0.25 mg Aspirin (Asa -) 81 mg NGT DAILY [facility] Last Admin: 06/13/16 09:26 Dose: 81 mg Atorvastatin Calcium (Lipitor -) 80 mg PO HS [facility] Last Admin: 06/12/16 22:00 Dose: 80 mg Diltiazem HCl (Cardizem -) 30 mg PO QID [facility] Last Admin: 06/13/16 17:25 Dose: 30 mg Docusate Sodium (Colace -) 100 mg PO DAILY [facility] Last Admin: 06/13/16 09:25 Dose: 100 mg Enalapril Maleate (Vasotec -) 5 mg NGT BID [facility] Last Admin: 06/13/16 09:25 Dose: 5 mg Enoxaparin Sodium (Lovenox -) 40 mg SQ DAILY [facility] Hydralazine HCl (Apresoline -) 10 mg NGT TID [facility] Last Admin: 06/13/16 15:08 Dose: 10 mg Insulin Aspart (Novolog Vial Sliding Scale -) 1 vial SQ TIDAC [facility] PRN Reason: Protocol Last Admin: 06/13/16 16:14 Dose: 3 units Morphine Sulfate (Morphine Injection -) 2 mg IVPUSH Q3H PRN PRN Reason: PAIN Last Admin: 06/13/16 15:22 Dose: 2 mg Pantoprazole Sodium (Protonix 40mg Ivpb (Pre-Docked)) 40 mg IVPB DAILY [facility] Last Admin: 06/13/16 09:25 Dose: 40 mg Prednisone (Deltasone -) 40 mg NGT DAILY [facility] Last Admin: 06/13/16 09:25 Dose: 40 mg - Objective Vital Signs: Vital Signs Temperature 98.0 F 06/13/16 14:00 Pulse Rate 92 H 06/13/16 16:00 Respiratory Rate 23 06/13/16 16:48 Blood Pressure 117/59 06/13/16 16:00 O2 Sat by Pulse Oximetry (%) 98 06/13/16 16:46 Constitutional: Yes: No Distress, Calm Neck: Yes: Supple, Trachea Midline Cardiovascular: Yes: Regular Rate and Rhythm Respiratory: Yes: Intubated, Mechanically Ventilated Gastrointestinal: Yes: Normal Bowel Sounds, Soft Musculoskeletal: Yes: WNL Extremities: Yes: WNL Neurological: Yes: Alert, Oriented Psychiatric: Yes: Alert Labs: CBC, BMP 06/13/16 05:20 06/13/16 05:20 INR, PTT INR 1.02 (0.82-1.09) 06/09/16 05:05 Assessment/Plan Problem List - Problems (1) Respiratory failure Code(s): J96.90 - RESPIRATORY FAILURE, UNSP, UNSP W HYPOXIA OR HYPERCAPNIA Qualifiers: Chronicity: acute Respiratory failure complication: hypoxia and hypercapnia Qualified Code(s): J96.01 - Acute respiratory failure with hypoxia (2) Chronic respiratory failure with hypoxia Code(s): J96.11 - CHRONIC RESPIRATORY FAILURE WITH HYPOXIA (3) CAD (coronary artery disease) Code(s): I25.10 - ATHSCL HEART DISEASE OF [place] CORONARY ARTERY W/O ANG PCTRS (4) COPD (chronic obstructive pulmonary disease) Assessment/Plan: intubated Code(s): J44.9 - CHRONIC OBSTRUCTIVE PULMONARY DISEASE, UNSPECIFIED (5) Chronic diastolic CHF (congestive heart failure) Code(s): I50.32 - CHRONIC DIASTOLIC (CONGESTIVE) HEART FAILURE (6) HLD (hyperlipidemia) Code(s): E78.5 - HYPERLIPIDEMIA, UNSPECIFIED Qualifiers: Hyperlipidemia type: unspecified Qualified Code(s): E78.5 - Hyperlipidemia, unspecified (7) HTN (hypertension) Code(s): I10 - ESSENTIAL (PRIMARY) HYPERTENSION Qualifiers: Hypertension type: essential hypertension Qualified Code(s): I10 - Essential (primary) hypertension (8) History of cigarette smoking Code(s): Z87.891 - PERSONAL HISTORY OF NICOTINE DEPENDENCE +Troponins/Acute NSTEMI Lactic Acidosis h/o Breast Ca 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
--- NOTE | 2016-06-13 19:34 | PN ---
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, Physician History of Present Illness: INTUBATED AWAKE - Current Medication List Current Medications: Active Medications Acetaminophen (Tylenol -) 650 mg PO Q4H PRN PRN Reason: FEVER OR PAIN Last Admin: 06/12/16 09:23 Dose: 650 mg Albuterol/Ipratropium (Duoneb -) 1 amp NEB QIDR [facility] Last Admin: 06/13/16 17:06 Dose: 1 amp Alprazolam (Xanax -) 0.25 mg PO Q6H PRN PRN Reason: ANXIETY Last Admin: 06/13/16 13:13 Dose: 0.25 mg Aspirin (Asa -) 81 mg NGT DAILY [facility] Last Admin: 06/13/16 09:26 Dose: 81 mg Atorvastatin Calcium (Lipitor -) 80 mg PO HS [facility] Last Admin: 06/12/16 22:00 Dose: 80 mg Diltiazem HCl (Cardizem -) 30 mg PO QID [facility] Last Admin: 06/13/16 17:25 Dose: 30 mg Docusate Sodium (Colace -) 100 mg PO DAILY [facility] Last Admin: 06/13/16 09:25 Dose: 100 mg Enalapril Maleate (Vasotec -) 5 mg NGT BID [facility] Last Admin: 06/13/16 09:25 Dose: 5 mg Enoxaparin Sodium (Lovenox -) 40 mg SQ DAILY [facility] Hydralazine HCl (Apresoline -) 10 mg NGT TID [facility] Last Admin: 06/13/16 15:08 Dose: 10 mg Insulin Aspart (Novolog Vial Sliding Scale -) 1 vial SQ TIDAC [facility] PRN Reason: Protocol Last Admin: 06/13/16 16:14 Dose: 3 units Morphine Sulfate (Morphine Injection -) 2 mg IVPUSH Q3H PRN PRN Reason: PAIN Last Admin: 06/13/16 15:22 Dose: 2 mg Pantoprazole Sodium (Protonix 40mg Ivpb (Pre-Docked)) 40 mg IVPB DAILY [facility] Last Admin: 06/13/16 09:25 Dose: 40 mg Prednisone (Deltasone -) 40 mg NGT DAILY [facility] Last Admin: 06/13/16 09:25 Dose: 40 mg - Objective Vital Signs: Vital Signs Temperature 98.8 F 06/13/16 17:46 Pulse Rate 83 06/13/16 18:00 Respiratory Rate 19 06/13/16 18:38 Blood Pressure 109/56 06/13/16 18:00 O2 Sat by Pulse Oximetry (%) 98 06/13/16 16:46 Constitutional: Yes: No Distress HENT: Yes: Atraumatic Neck: Yes: Supple Cardiovascular: Yes: Regular Rate and Rhythm Respiratory: Yes: Rhonchi Gastrointestinal: Yes: Normal Bowel Sounds Extremities: Yes: WNL Neurological: Yes: Alert, Oriented Labs: CBC, BMP 06/13/16 05:20 06/13/16 05:20 INR, PTT INR 1.02 (0.82-1.09) 06/09/16 05:05 Problem List - Problems (1) Respiratory failure Code(s): J96.90 - RESPIRATORY FAILURE, UNSP, UNSP W HYPOXIA OR HYPERCAPNIA Qualifiers: Chronicity: acute Respiratory failure complication: hypoxia and hypercapnia Qualified Code(s): J96.01 - Acute respiratory failure with hypoxia (2) Chronic respiratory failure with hypoxia Code(s): J96.11 - CHRONIC RESPIRATORY FAILURE WITH HYPOXIA (3) CAD (coronary artery disease) Code(s): I25.10 - ATHSCL HEART DISEASE OF [place] CORONARY ARTERY W/O ANG PCTRS (4) COPD (chronic obstructive pulmonary disease) Code(s): J44.9 - CHRONIC OBSTRUCTIVE PULMONARY DISEASE, UNSPECIFIED (5) Chronic diastolic CHF (congestive heart failure) Code(s): I50.32 - CHRONIC DIASTOLIC (CONGESTIVE) HEART FAILURE (6) HLD (hyperlipidemia) Code(s): E78.5 - HYPERLIPIDEMIA, UNSPECIFIED Qualifiers: Hyperlipidemia type: unspecified Qualified Code(s): E78.5 - Hyperlipidemia, unspecified (7) HTN (hypertension) Code(s): I10 - ESSENTIAL (PRIMARY) HYPERTENSION Qualifiers: Hypertension type: essential hypertension Qualified Code(s): I10 - Essential (primary) hypertension (8) History of cigarette smoking Code(s): Z87.891 - PERSONAL HISTORY OF NICOTINE DEPENDENCE (9) Influenza Code(s): J11.1 - FLU DUE TO UNIDENTIFIED INFLUENZA VIRUS W OTH RESP MANIFEST Assessment/Plan 1.+Influenza treated 2.Acute respiratory failure intubated still , on weaning po steroids abx duo nebs 3.Worsening anemia 4.NSTEMI 5.History breast cancer, lung mass with negative bx 6.COPD, chronic with chronic hypoxemia 7.chf STABLE CC 30 MIN
[2016-06-13] MEDS: ATORVASTATIN CA 80 MG TABLET (FP) PO SCH (21:10)
[2016-06-14] MEDS: ALBUTEROL SO4 2.5/IPRATROPIUM 0.5 INH SOL 3 ML VIAL.NEB. NEB SCH ×3 (05:20→18:03)
[2016-06-14 06:17] LABS: MCH 23.5 pg (25.7-33.7); MCHC 31.5 g/dl (32.0-36.0); MEAN CELL VOLUME 74.6 fl (80-96); MEAN PLT VOLUME 9.1 fl (7.5-11.1); PLATELET COUNT 250 K/MM3 (134-434); RDW 26.5 % (11.6-15.6); WHITE BLOOD COUNT 9.6 K/mm3 (4.0-10.0)
[2016-06-14] MEDS ORDERED: PT OWN MED DRAWER 7, Y5N ONE ×3 (06:39→21:17)
[2016-06-14] MEDS: hydrALAZINE HCL 10 MG TABLET NGT SCH ×2 (06:40→14:35)
[2016-06-14] MEDS: INSULIN SLIDING SCALE (NOVOLOG) 1 VIAL SQ SCH ×3 (06:40→16:36)
[2016-06-14] MEDS: morphine CARPU-JECT 2 MG/1 ML DISP.SYRIN IVPUSH PRN (06:42)
[2016-06-14 06:58] LABS: ANION GAP 8 (8-16); CALCIUM 8.9 mg/dL (8.5-10.1); CO2 35 mmol/L (21-32); CREATININE 0.5 mg/dL (0.55-1.02); GLUCOSE,RANDOM 155 mg/dL (74-106); MAGNESIUM 2.1 mg/dL (1.8-2.4); PHOSPHOROUS 2.9 mg/dL (2.5-4.9); SGOT/AST 18 U/L (15-37); SGPT/ALT 17 U/L (12-78)
[2016-06-14 07:00] LABS: ALK PHOS 54 U/L (45-117); BILIRUBIN,TOTAL 0.3 mg/dL (0.2-1.0); TOT PROT 5.2 g/dl (6.4-8.2)
--- NOTE | 2016-06-14 07:27 | EKG ---
Test Reason : Blood Pressure : / mmHG Vent. Rate : 083 BPM Atrial Rate : 083 BPM P-R Int : 186 ms QRS Dur : 096 ms QT Int : 358 ms P-R-T Axes : 108 -31 262 degrees QTc Int : 420 ms NORMAL SINUS RHYTHM LEFT AXIS DEVIATION LEFT VENTRICULAR HYPERTROPHY WITH REPOLARIZATION ABNORMALITY MARKED T-WAVE ABNORMALITY, CONSIDER INFEROLATERAL ISCHEMIA ABNORMAL ECG WHEN COMPARED WITH ECG OF 02-JUN-2016 08:18, VENT. RATE HAS INCREASED BY 28 BPM Confirmed by MELONIE AHN MD ([id number]) on 06/14/2016 7:27:28 AM Referred By: Jory RODRIGUEZ Confirmed By:MELONIE AHN MD
[2016-06-14 07:28] LABS: ARTERIAL BLD GAS O2 SATURATION 94.5 % (90-98.9); ARTERIAL BLOOD GAS BASE EXCESS 8.6 meq/l (-2-2); ARTERIAL BLOOD GAS PO2 71.9 mmHg (70-100); ARTERIAL BLOOD GAS pH 7.47 (7.35-7.45)
[2016-06-14 07:29] LABS: ALLENS TEST POSITIVE; ART PUNCT SITE RIGHT RADIAL; LPM/O2% 30%; PT. ON O2? YES; TYPE OF O2 MECHANICAL VENT
[2016-06-14 07:30] LABS: MECH. VENT. YES; VENT RATE 14; VT/PRESS 350ML
--- NOTE | 2016-06-14 08:45 | PN ---
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, Physician Chief Complaint: alert on vent - Current Medication List Current Medications: Active Medications Acetaminophen (Tylenol -) 650 mg PO Q4H PRN PRN Reason: FEVER OR PAIN Last Admin: 06/12/16 09:23 Dose: 650 mg Albuterol/Ipratropium (Duoneb -) 1 amp NEB QIDR [facility] Last Admin: 06/14/16 05:20 Dose: 1 amp Alprazolam (Xanax -) 0.25 mg PO Q6H PRN PRN Reason: ANXIETY Last Admin: 06/13/16 13:13 Dose: 0.25 mg Aspirin (Asa -) 81 mg NGT DAILY [facility] Last Admin: 06/13/16 09:26 Dose: 81 mg Atorvastatin Calcium (Lipitor -) 80 mg PO HS [facility] Last Admin: 06/13/16 21:10 Dose: 80 mg Diltiazem HCl (Cardizem -) 30 mg PO QID [facility] Last Admin: 06/13/16 21:10 Dose: 30 mg Docusate Sodium (Colace -) 100 mg PO DAILY [facility] Last Admin: 06/13/16 09:25 Dose: 100 mg Enalapril Maleate (Vasotec -) 5 mg NGT BID [facility] Last Admin: 06/13/16 21:10 Dose: 5 mg Enoxaparin Sodium (Lovenox -) 40 mg SQ DAILY [facility] Hydralazine HCl (Apresoline -) 10 mg NGT TID [facility] Last Admin: 06/14/16 06:40 Dose: 10 mg Insulin Aspart (Novolog Vial Sliding Scale -) 1 vial SQ TIDAC [facility] PRN Reason: Protocol Last Admin: 06/14/16 06:40 Dose: 1 units Morphine Sulfate (Morphine Injection -) 2 mg IVPUSH Q3H PRN PRN Reason: PAIN Last Admin: 06/14/16 06:42 Dose: 2 mg Pantoprazole Sodium (Protonix 40mg Ivpb (Pre-Docked)) 40 mg IVPB DAILY [facility] Last Admin: 06/13/16 09:25 Dose: 40 mg Prednisone (Deltasone -) 40 mg NGT DAILY [facility] Last Admin: 06/13/16 09:25 Dose: 40 mg - Objective Vital Signs: Vital Signs Temperature 97.6 F 06/14/16 08:00 Pulse Rate 74 06/14/16 08:00 Respiratory Rate 20 06/14/16 08:00 Blood Pressure 145/64 06/14/16 08:00 O2 Sat by Pulse Oximetry (%) 100 06/14/16 08:00 HENT: Yes: Other (+ ETT) Respiratory: Yes: Other (b/l rhonchi) Gastrointestinal: Yes: Soft (non-tender) Edema: No Labs: CBC, BMP 06/14/16 05:05 06/14/16 06:00 INR, PTT INR 1.02 (0.82-1.09) 06/09/16 05:05 Laboratory Tests 06/14/16 06/14/16 06/14/16 05:05 06:00 07:15 WBC 9.6 Hgb 8.9 L Hct 28.4 L Plt Count 250 ABG pH 7.47 H ABG pCO2 at Pt Temp 46.4 H ABG pO2 at Pt Temp 71.9 Oxygen Flow Rate 30% Sodium 142 Potassium 4.4 BUN 21 H Creatinine 0.5 L - ....Imaging EKG: Image Reviewed Assessment/Plan Assessment/Plan Influenza with acute respiratory failure, now with difficulty weaning Anemia NSTEMI History breast cancer, lung mass with negative bx COPD, chronic with chronic hypoxemia Mild PSVT Chronic diastolic CHF Carotid stenosis s/p CEA REC: Acute respiratory failure requiring intubation, + influenza -Having difficulty on SIMV -wean vent as tolerates, refusing trach -dosing lasix PRN NSTEMI/PSVT: -in setting of acute illness, acute resp failure -known underlying CAD with suspected chronic angina -On ASA -has refused cath on multiple occasions -Repeat echo w/ normal LV fxn. Mild -Rate control of PSVT with Cardizem or Verapamil
[2016-06-14] MEDS: dilTIAZem HCL 30 MG TABLET (FP) PO SCH ×4 (09:01→21:16)
[2016-06-14] MEDS: ASPIRIN 81 MG CHEWABLE TABLETS NGT SCH (09:02)
[2016-06-14] MEDS: predniSONE 20 MG TABLET (UD) NGT SCH (09:02)
[2016-06-14] MEDS: ALPRAZolam 0.25 MG TABLET PO PRN ×2 (09:02→21:16)
[2016-06-14] MEDS: ENALAPRIL MALEATE 5 MG TABLET (FP) NGT SCH (09:02)
[2016-06-14] MEDS: PANTOPRAZOLE SODIUM 40 MG/100 ML PRE-DOCKED IVPB SCH (09:03)
[2016-06-14] MEDS: DOCUSATE SODIUM 100 MG CAPSULE (FP) PO SCH (09:03)
[2016-06-14] MEDS: ENOXAPARIN NA (PORCINE) 40 MG/0.4 ML DISP.SYRIN SQ SCH (09:16)
--- NOTE | 2016-06-14 11:28 | PN ---
Teaching Attending Note Name of Resident: Conrad Pagan ATTENDING PHYSICIAN STATEMENT I saw and evaluated the patient. I reviewed the resident's note and discussed the case with the resident. I agree with the resident's findings and plan as documented. SUBJECTIVE: Pt seen and examined in the ICU. Remains intubated, awake. Following commands. Tolerating CPAP/PS 6/5. OBJECTIVE: Last Vital Signs Temp Pulse Resp BP Pulse Ox 97.4 F L 86 20 145/62 98 06/14/16 10:00 06/14/16 10:00 06/14/16 10:00 06/14/16 10:00 06/14/16 09:00 Intake & Output 06/11/16 06/12/16 06/13/16 06/14/16 23:59 23:59 23:59 23:59 Intake Total 2358 263 7800 Output Total 1700 1700 2100 500 Balance -330 -1070 -270 -500 Weight 132 lb 13.129 oz 132 lb 5 oz 130 lb 9.6 oz 124 lb 9.6 oz Gen: intubated, awake Heart: RRR Lung: scattered rhonchi, distant breath sounds Abd: soft, nontender Ext: no edema CBC, BMP 06/14/16 05:05 06/14/16 06:00 Active Medications Acetaminophen (Tylenol -) 650 mg PO Q4H PRN PRN Reason: FEVER OR PAIN Last Admin: 06/12/16 09:23 Dose: 650 mg Albuterol/Ipratropium (Duoneb -) 1 amp NEB QIDR [facility] Last Admin: 06/14/16 05:20 Dose: 1 amp Alprazolam (Xanax -) 0.25 mg PO Q6H PRN PRN Reason: ANXIETY Last Admin: 06/14/16 09:02 Dose: 0.25 mg Aspirin (Asa -) 81 mg NGT DAILY [facility] Last Admin: 06/14/16 09:02 Dose: 81 mg Atorvastatin Calcium (Lipitor -) 80 mg PO HS [facility] Last Admin: 06/13/16 21:10 Dose: 80 mg Diltiazem HCl (Cardizem -) 30 mg PO QID [facility] Last Admin: 06/14/16 09:01 Dose: 30 mg Docusate Sodium (Colace -) 100 mg PO DAILY [facility] Last Admin: 06/14/16 09:03 Dose: Not Given Enalapril Maleate (Vasotec -) 5 mg NGT BID [facility] Last Admin: 06/14/16 09:02 Dose: 5 mg Enoxaparin Sodium (Lovenox -) 40 mg SQ DAILY [facility] Last Admin: 06/14/16 09:16 Dose: 40 mg Hydralazine HCl (Apresoline -) 10 mg NGT TID [facility] Last Admin: 06/14/16 06:40 Dose: 10 mg Insulin Aspart (Novolog Vial Sliding Scale -) 1 vial SQ [facility] PRN Reason: Protocol Last Admin: 06/14/16 11:05 Dose: 1 units Morphine Sulfate (Morphine Injection -) 2 mg IVPUSH Q3H PRN PRN Reason: PAIN Last Admin: 06/14/16 06:42 Dose: 2 mg Pantoprazole Sodium (Protonix 40mg Ivpb (Pre-Docked)) 40 mg IVPB DAILY [facility] Last Admin: 06/14/16 09:03 Dose: 40 mg Prednisone (Deltasone -) 40 mg NGT DAILY [facility] Last Admin: 06/14/16 09:02 Dose: 40 mg ASSESSMENT AND PLAN: Acute on Chronic Hypoxic and Hypercapneic Respiratory Failure Influenza A s/p treatment Acute COPD Exacerbation CAD +Troponins/Acute NSTEMI Lactic Acidosis resolved h/o Breast Ca 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
--- NOTE | 2016-06-14 12:40 | PN ---
Physical Exam: SUBJECTIVE: Patient seen and examined at bedside in the ICU. She tolerated SIMV and CPAP this AM and was subsequently extubated. OBJECTIVE: Vital Signs Period Temp Pulse Resp BP Sys/Rasheed Pulse Ox Last 24 Hr 97.4 F-98.8 F 74-109 16-32 109-148/5-64 93-100 GENERAL: AAO x 3, extubated tolerating venti-mask HEAD: AT, NC EYES: Pupils equal, round and reactive to light, sclera anicteric, conjunctiva clear ENT: nares patent oropharynx clear without exudates LUNGS: CTAB HEART: RRR, S1 and S2, ejection murmur, rub ABDOMEN: +bs, soft, non-tender, no rebound, guarding EXTREMITIES: No peripheral edema. CBCD WBC 9.6 K/mm3 (4.0-10.0) 06/14/16 05:05 RBC 3.80 M/mm3 (3.60-5.2) 06/14/16 05:05 Hgb 8.9 GM/dL (10.7-15.3) L 06/14/16 05:05 Hct 28.4 % (32.4-45.2) L 06/14/16 05:05 MCV 74.6 fl (80-96) L 06/14/16 05:05 MCHC 31.5 g/dl (32.0-36.0) L 06/14/16 05:05 RDW 26.5 % (11.6-15.6) H 06/14/16 05:05 Plt Count 250 K/MM3 (134-434) 06/14/16 05:05 MPV 9.1 fl (7.5-11.1) 06/14/16 05:05 CMP Sodium 142 mmol/L (136-145) 06/14/16 06:00 Potassium 4.4 mmol/L (3.5-5.1) 06/14/16 06:00 Chloride 99 mmol/L (98-107) 06/14/16 06:00 Carbon Dioxide 35 mmol/L (21-32) H 06/14/16 06:00 Anion Gap 8 (8-16) 06/14/16 06:00 BUN 21 mg/dL (7-18) H 06/14/16 06:00 Creatinine 0.5 mg/dL (0.55-1.02) L 06/14/16 06:00 Creat Clearance w eGFR > 60 (>60) 06/14/16 06:00 Calcium 8.9 mg/dL (8.5-10.1) 06/14/16 06:00 Total Bilirubin 0.3 mg/dL (0.2-1.0) 06/14/16 06:00 AST 18 U/L (15-37) 06/14/16 06:00 ALT 17 U/L (12-78) 06/14/16 06:00 Alkaline Phosphatase 54 U/L (45-117) 06/14/16 06:00 Total Protein 5.2 g/dl (6.4-8.2) L 06/14/16 06:00 Albumin 2.0 g/dl (3.4-5.0) L 06/14/16 06:00 Intake & Output 06/11/16 06/12/16 06/13/16 06/14/16 23:59 23:59 23:59 23:59 Intake Total 2121 554 8993 Output Total 1700 1700 2100 500 Balance -330 -1070 -270 -500 Weight 60.246 kg 60.016 kg 59.239 kg 56.518 kg Active Medications Generic Name Dose Route Start Last Admin Trade Name Freq PRN Reason Stop Dose Admin Acetaminophen 650 mg 06/04/16 02:00 06/12/16 09:23 Tylenol - PO 650 mg Q4H PRN Administration FEVER OR PAIN Albuterol/Ipratropium 1 amp 06/13/16 12:00 06/14/16 11:00 Duoneb - NEB 1 amp QIDR [facility] Administration Alprazolam 0.25 mg 06/11/16 15:56 06/14/16 09:02 Xanax - PO 0.25 mg Q6H PRN Administration ANXIETY Aspirin 81 mg 06/10/16 11:45 06/14/16 09:02 Asa - NGT 81 mg DAILY [facility] Administration Atorvastatin Calcium 80 mg 05/31/16 22:00 06/13/16 21:10 Lipitor - PO 80 mg HS [facility] Administration Diltiazem HCl 30 mg 06/07/16 14:00 06/14/16 09:01 Cardizem - PO 30 mg QID [facility] Administration Docusate Sodium 100 mg 05/31/16 10:00 06/14/16 09:03 Colace - PO Not Given DAILY [facility] Enalapril Maleate 5 mg 06/09/16 22:00 06/14/16 09:02 Vasotec - NGT 5 mg BID [facility] Administration Enoxaparin Sodium 40 mg 06/14/16 10:00 06/14/16 09:16 Lovenox - SQ 40 mg DAILY [facility] Administration Hydralazine HCl 10 mg 06/07/16 14:00 06/14/16 06:40 Apresoline - NGT 10 mg TID [facility] Administration Insulin Aspart 1 vial 05/31/16 07:00 06/14/16 11:05 Novolog Vial Sliding Scale - SQ 1 units TIDAC [facility] Administration Protocol Morphine Sulfate 2 mg 06/12/16 09:02 06/14/16 06:42 Morphine Injection - IVPUSH 2 mg Q3H PRN Administration PAIN Pantoprazole Sodium 40 mg 05/31/16 10:00 06/14/16 09:03 Protonix 40mg Ivpb (Pre-Docked) IVPB 40 mg DAILY [facility] Administration Prednisone 40 mg 06/11/16 10:00 06/14/16 09:02 Deltasone - NGT 40 mg DAILY [facility] Administration Microbiology 05/30/16: Nasopharyngeal Swab Influenza Types A positive 06/08/16: Urine grew yeast like organism Imaging CXR on 06/14: improved congestive changes CXR on 06/13: no significant change ECHO: normal LV function ASSESSMENT/PLAN: 75 yo F h/o COPD with chronic bronchitis on home O2, HTN, HLD, CHF, CAD, stable AAA, left breast CA s/p lumpectomy and radiation therapy, remote history of intracranial bleed admitted to the ICU for acute on chronic hypercapneic respiratory failure in the setting of COPD and CHF exacerbation and flu. Respiratory: acute on chronic hypercapneic respiratory failure - Extubated and now on Venti-mask - BiPAP PRN - Nebulizers [facility] and PRN - Predisone 40mg BID - Lasix PRN - No daily ABG please - CXR QOD ID: Sepsis 2/2 influenza A - Completed tamiflu zosyn and azitromycin courses - Afrebile and normal WBC Cardiac: NSTEMI vs. Demand ischemia; HTN - On ASA - SVT on verapamil - Vasotec and hydralazine for BP control Heme: Microcytic anemia - HGB stable - Monitor H&H - Transfuse if < 9 per GI FEN - No IVF indicated - Normal lytes, cont. to monitor - Awaits speech and swallow eval Prophylaxis - DVT: lovenox - GI: daily PPI [facility] Code status - Full code Visit type - Emergency Visit Emergency Visit: No - New Patient This patient is new to me today: No - Critical Care Critical Care patient: Yes Total Critical Care Time (in minutes): 35 Critical Care Statement: The care of this patient involved high complexity decision making to prevent further life threatening deterioration of the patient 's condition and/or to evalute & treat vital organ system(s) failure or risk of failure.
--- NOTE | 2016-06-14 14:15 | CONSULT ---
Admitting History and Physical - Primary Care Physician PCP: Kay Mcdowell - Admission History of Present Illness: Pt with influenza with acute respiratory failure - - chronic respiratory with hypoxia, CAD, COPD, chronic CHF, HLD, HTN, + troponin / acute NSTEMI, lactic acidosis, h/o breast Ca, lung nodules , anemia pt was intubated / reintubated , extubated this am. NPO. History Source: Patient Limitations to Obtaining History: No Limitations - Past Medical History [employer]: Yes: Other (SDH) Cardiovascular: Yes: CAD, CHF, HTN, Other (carotid stenosis s/p CEA) Pulmonary: Yes: COPD, O2 Dependent, Other (Lung nodules) Heme/Onc: Yes: Cancer (breast ca) - Past Surgical History Past Surgical History: Yes: Carotid Endarterectomy (right), Hysterectomy - Smoking History Smoking history: Current every day smoker Have you smoked in the past 12 months: Yes Aproximately how many cigarettes per day: 2 If you are a former smoker, when did you quit?: pt was smoking a cig prior to ems arrival - Alcohol/Substance Use Hx Alcohol Use: No History of Substance Use: reports: None - Social History ADL: Independent History of Recent Travel: No History - Admission Reason For Visit: CHRONIC RESPIRATORY FAILURE WITH HYPOXIA - Diagnostics X-ray: Report Reviewed - General Mental Status: Alert and Oriented, Awake and Alert, Able to Follow Commands Attention: Intact Ability to Follow Directions: Excellent Head/Neck Control: WFL - Hearing Hearing: Normal Speech Evaluation - Communication Primary Language: KENYAN Communication: Yes: Within Normal Limits (mild dysphonia) Oral Expression Ability: Yes: Mild Impairment - Speech Production Able to Make Needs Known: Yes: WNL Intelligibility: Yes: WNL - Speech Characteristics Voice Loudness: Mildly Soft/Quiet Voice Pitch: Yes: Normal Voice Phonatory-based Quality: Yes: Dysphonia Speech Pattern: Normal Speech Clarity: < 100% Nasal Resonance: Normal Articulation: Yes: Precise - Language/Auditory Comprehension Follows: Yes: 2 Stage Simple Commands - Language/Verbal Expression Able to Respond to Simple Queries: Yes: WNL Able to Communicate Wants and Needs: Yes: WNL Functional Communication Status: Yes: WNL Attention: Yes: Intact - Swallow Evaluation/Bedside Assessment Current Nutritional Intake: NPO (trial of puree and water by primary nurse wnl) Dentition: Yes: Missing Teeth Facial Symmetry at Rest: Symmetrical Facial Symmetry on Retraction: Symmetrical Facial Movement: Controlled Against Resistance Opening: Normal Against Resistance Closing: Normal Pucker Lips: Normal Smile: Normal Lingual Movement: Normal Lingual Speed of Movement: Normal Lingual Movement Strgth Against Opposition: Normal Lingual Movement Characteristics: Normal Velopharyngeal Movement: Normal Laryngeal Movement: Able to Palpate, Reduced Excursion (mild) Rate of Intake: WFL Chewing: WFL Oral Prep Time: WFL A-P Transit: WFL Pocketing: None Timing of Swallow: WFL Coughing/Throat Clear: No Change in Voice: No Recommendations - Speech Evaluation, Impression/Plan Impression: Mild dysphonia s/p extubation. Swallowing overtly intact. Pt desatted to 85 with VM removed during swallowing assessment. Back to 94 with NC, - Dysphagia Impressions/Plan Dysphagia Impressions: Mild Impairment, Ongoing Evaluation *Silent aspiration: cannot be R/O at bedside Dysphagia Treatment Plan: Safe Rate, 1/2 tsp. at a time, Elevate HOB during feed Recommendations: Modified Barium Swallow (if cough, congestion, sob) - Recommendations Diet Consistency: Regular (soft) Medication Administration: Whole with water Liquids: Thin Liquids Supplement: Other (as indicated)
[2016-06-14] MEDS: ACETAMINOPHEN 325 MG TABLET (FP) PO PRN (14:35)
--- NOTE | 2016-06-14 15:26 | PN ---
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, Physician History of Present Illness: patient could finally be weaned off and extuabted voice still hoarse otherwise stable no complaints - Current Medication List Current Medications: Active Medications Acetaminophen (Tylenol -) 650 mg PO Q4H PRN PRN Reason: FEVER OR PAIN Last Admin: 06/14/16 14:35 Dose: 650 mg Albuterol/Ipratropium (Duoneb -) 1 amp NEB QIDR [facility] Last Admin: 06/14/16 11:00 Dose: 1 amp Alprazolam (Xanax -) 0.25 mg PO Q6H PRN PRN Reason: ANXIETY Last Admin: 06/14/16 09:02 Dose: 0.25 mg Aspirin (Asa -) 81 mg NGT DAILY [facility] Last Admin: 06/14/16 09:02 Dose: 81 mg Atorvastatin Calcium (Lipitor -) 80 mg PO HS [facility] Last Admin: 06/13/16 21:10 Dose: 80 mg Diltiazem HCl (Cardizem -) 30 mg PO QID [facility] Last Admin: 06/14/16 14:35 Dose: 30 mg Docusate Sodium (Colace -) 100 mg PO DAILY [facility] Last Admin: 06/14/16 09:03 Dose: Not Given Enalapril Maleate (Vasotec -) 5 mg NGT BID [facility] Last Admin: 06/14/16 09:02 Dose: 5 mg Enoxaparin Sodium (Lovenox -) 40 mg SQ DAILY [facility] Last Admin: 06/14/16 09:16 Dose: 40 mg Hydralazine HCl (Apresoline -) 10 mg NGT TID [facility] Last Admin: 06/14/16 14:35 Dose: 10 mg Insulin Aspart (Novolog Vial Sliding Scale -) 1 vial SQ TIDAC [facility] PRN Reason: Protocol Last Admin: 06/14/16 11:05 Dose: 1 units Morphine Sulfate (Morphine Injection -) 2 mg IVPUSH Q3H PRN PRN Reason: PAIN Last Admin: 06/14/16 06:42 Dose: 2 mg Pantoprazole Sodium (Protonix 40mg Ivpb (Pre-Docked)) 40 mg IVPB DAILY [facility] Last Admin: 06/14/16 09:03 Dose: 40 mg Prednisone (Deltasone -) 40 mg NGT DAILY [facility] Last Admin: 06/14/16 09:02 Dose: 40 mg - Objective Vital Signs: Vital Signs Temperature 98.8 F 06/14/16 14:00 Pulse Rate 97 H 06/14/16 14:00 Respiratory Rate 20 06/14/16 14:00 Blood Pressure 126/57 06/14/16 14:00 O2 Sat by Pulse Oximetry (%) 95 06/14/16 13:55 Constitutional: Yes: No Distress, Calm Cardiovascular: Yes: Regular Rate and Rhythm Respiratory: Yes: Regular, Poor Air Entry Gastrointestinal: Yes: Normal Bowel Sounds, Soft Musculoskeletal: Yes: WNL Extremities: Yes: WNL Integumentary: Yes: WNL Neurological: Yes: Alert, Oriented Psychiatric: Yes: Alert, Oriented Labs: CBC, BMP 06/14/16 05:05 06/14/16 06:00 INR, PTT INR 1.02 (0.82-1.09) 06/09/16 05:05 Assessment/Plan Problem List - Problems (1) Respiratory failure Code(s): J96.90 - RESPIRATORY FAILURE, UNSP, UNSP W HYPOXIA OR HYPERCAPNIA Qualifiers: Chronicity: acute Respiratory failure complication: hypoxia and hypercapnia Qualified Code(s): J96.01 - Acute respiratory failure with hypoxia (2) Chronic respiratory failure with hypoxia Code(s): J96.11 - CHRONIC RESPIRATORY FAILURE WITH HYPOXIA (3) CAD (coronary artery disease) Code(s): I25.10 - ATHSCL HEART DISEASE OF [place] CORONARY ARTERY W/O ANG PCTRS (4) COPD (chronic obstructive pulmonary disease) Assessment/Plan: intubated Code(s): J44.9 - CHRONIC OBSTRUCTIVE PULMONARY DISEASE, UNSPECIFIED (5) Chronic diastolic CHF (congestive heart failure) Code(s): I50.32 - CHRONIC DIASTOLIC (CONGESTIVE) HEART FAILURE (6) HLD (hyperlipidemia) Code(s): E78.5 - HYPERLIPIDEMIA, UNSPECIFIED Qualifiers: Hyperlipidemia type: unspecified Qualified Code(s): E78.5 - Hyperlipidemia, unspecified (7) HTN (hypertension) Code(s): I10 - ESSENTIAL (PRIMARY) HYPERTENSION Qualifiers: Hypertension type: essential hypertension Qualified Code(s): I10 - Essential (primary) hypertension (8) History of cigarette smoking Code(s): Z87.891 - PERSONAL HISTORY OF NICOTINE DEPENDENCE +Troponins/Acute NSTEMI Lactic Acidosis h/o Breast Ca 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
--- NOTE | 2016-06-14 19:21 | PN ---
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, Physician History of Present Illness: ON FACE MASK STABLE AWAKE - Current Medication List Current Medications: Active Medications Acetaminophen (Tylenol -) 650 mg PO Q4H PRN PRN Reason: FEVER OR PAIN Last Admin: 06/14/16 14:35 Dose: 650 mg Albuterol/Ipratropium (Duoneb -) 1 amp NEB QIDR [facility] Last Admin: 06/14/16 18:03 Dose: 1 amp Alprazolam (Xanax -) 0.25 mg PO Q6H PRN PRN Reason: ANXIETY Last Admin: 06/14/16 09:02 Dose: 0.25 mg Aspirin (Asa -) 81 mg NGT DAILY [facility] Last Admin: 06/14/16 09:02 Dose: 81 mg Atorvastatin Calcium (Lipitor -) 80 mg PO HS [facility] Last Admin: 06/13/16 21:10 Dose: 80 mg Diltiazem HCl (Cardizem -) 30 mg PO QID [facility] Last Admin: 06/14/16 17:07 Dose: 30 mg Docusate Sodium (Colace -) 100 mg PO DAILY [facility] Last Admin: 06/14/16 09:03 Dose: Not Given Enalapril Maleate (Vasotec -) 5 mg NGT BID [facility] Last Admin: 06/14/16 09:02 Dose: 5 mg Enoxaparin Sodium (Lovenox -) 40 mg SQ DAILY [facility] Last Admin: 06/14/16 09:16 Dose: 40 mg Hydralazine HCl (Apresoline -) 10 mg NGT TID [facility] Last Admin: 06/14/16 14:35 Dose: 10 mg Insulin Aspart (Novolog Vial Sliding Scale -) 1 vial SQ TIDAC [facility] PRN Reason: Protocol Last Admin: 06/14/16 16:36 Dose: 3 units Morphine Sulfate (Morphine Injection -) 2 mg IVPUSH Q3H PRN PRN Reason: PAIN Last Admin: 06/14/16 06:42 Dose: 2 mg Pantoprazole Sodium (Protonix 40mg Ivpb (Pre-Docked)) 40 mg IVPB DAILY [facility] Last Admin: 06/14/16 09:03 Dose: 40 mg Prednisone (Deltasone -) 40 mg NGT DAILY [facility] Last Admin: 06/14/16 09:02 Dose: 40 mg - Objective Vital Signs: Vital Signs Temperature 97.2 F L 06/14/16 18:00 Pulse Rate 98 H 06/14/16 18:00 Respiratory Rate 20 06/14/16 18:00 Blood Pressure 127/56 06/14/16 18:00 O2 Sat by Pulse Oximetry (%) 96 06/14/16 16:07 Constitutional: Yes: No Distress HENT: Yes: Atraumatic Neck: Yes: Supple Cardiovascular: Yes: Regular Rate and Rhythm Respiratory: Yes: CTA Bilaterally Gastrointestinal: Yes: Normal Bowel Sounds Extremities: Yes: WNL Labs: CBC, BMP 06/14/16 05:05 06/14/16 06:00 INR, PTT INR 1.02 (0.82-1.09) 06/09/16 05:05 Problem List - Problems (1) Respiratory failure Assessment/Plan: pt is on bipap/face mask duo nebs if needed po steroids...taper Code(s): J96.90 - RESPIRATORY FAILURE, UNSP, UNSP W HYPOXIA OR HYPERCAPNIA Qualifiers: Chronicity: acute Respiratory failure complication: hypoxia and hypercapnia Qualified Code(s): J96.01 - Acute respiratory failure with hypoxia (2) Chronic respiratory failure with hypoxia Assessment/Plan: see above Code(s): J96.11 - CHRONIC RESPIRATORY FAILURE WITH HYPOXIA (3) CAD (coronary artery disease) Code(s): I25.10 - ATHSCL HEART DISEASE OF [place] CORONARY ARTERY W/O ANG PCTRS (4) COPD (chronic obstructive pulmonary disease) Code(s): J44.9 - CHRONIC OBSTRUCTIVE PULMONARY DISEASE, UNSPECIFIED (5) Chronic diastolic CHF (congestive heart failure) Code(s): I50.32 - CHRONIC DIASTOLIC (CONGESTIVE) HEART FAILURE (6) HLD (hyperlipidemia) Code(s): E78.5 - HYPERLIPIDEMIA, UNSPECIFIED Qualifiers: Hyperlipidemia type: unspecified Qualified Code(s): E78.5 - Hyperlipidemia, unspecified (7) HTN (hypertension) Code(s): I10 - ESSENTIAL (PRIMARY) HYPERTENSION Qualifiers: Hypertension type: essential hypertension Qualified Code(s): I10 - Essential (primary) hypertension (8) History of cigarette smoking Code(s): Z87.891 - PERSONAL HISTORY OF NICOTINE DEPENDENCE (9) Influenza Code(s): J11.1 - FLU DUE TO UNIDENTIFIED INFLUENZA VIRUS W OTH RESP MANIFEST Assessment/Plan 1.+Influenza treated 2.Acute respiratory failure on face mask po steroids abx..done duo nebs 3.Worsening anemia 4.NSTEMI 5.History breast cancer, lung mass with negative bx 6.COPD, chronic with chronic hypoxemia 7.chf STABLE R CC 30 MIN
[2016-06-14] MEDS ORDERED: ASPIRIN 81 MG CHEWABLE TABLETS PO SCH (20:06)
[2016-06-14] MEDS ORDERED: predniSONE 20 MG TABLET (UD) PO SCH (20:07)
[2016-06-14] MEDS: ENALAPRIL MALEATE 5 MG TABLET (FP) PO SCH (21:16)
[2016-06-14] MEDS: ATORVASTATIN CA 80 MG TABLET (FP) PO SCH (21:16)
[2016-06-14] MEDS: hydrALAZINE HCL 10 MG TABLET PO SCH (21:18)
[2016-06-15] MEDS: ALBUTEROL SO4 2.5/IPRATROPIUM 0.5 INH SOL 3 ML VIAL.NEB. NEB SCH ×4 (05:56→18:05)
[2016-06-15 06:12] LABS: MCH 23.8 pg (25.7-33.7); MCHC 31.8 g/dl (32.0-36.0); MEAN CELL VOLUME 74.7 fl (80-96); MEAN PLT VOLUME 8.8 fl (7.5-11.1); PLATELET COUNT 248 K/MM3 (134-434); RDW 26.5 % (11.6-15.6); WHITE BLOOD COUNT 8.4 K/mm3 (4.0-10.0)
[2016-06-15] MEDS: hydrALAZINE HCL 10 MG TABLET PO SCH ×3 (06:14→21:59)
[2016-06-15] MEDS: INSULIN SLIDING SCALE (NOVOLOG) 1 VIAL SQ SCH ×3 (06:15→17:35)
--- NOTE | 2016-06-15 07:03 | PN ---
Physical Exam: SUBJECTIVE: Patient seen and examined OBJECTIVE: Vital Signs Period Temp Pulse Resp BP Sys/Rasheed Pulse Ox Last 24 Hr 97.2 F-98.9 F 74-109 18-25 124-168/50-68 93-100 GENERAL: The patient is awake, alert, and fully oriented, in no acute distress. HEAD: Normal with no signs of trauma. EYES: PERRL, extraocular movements intact, sclera anicteric, conjunctiva clear. No ptosis. ENT: Ears normal, nares patent, oropharynx clear without exudates, moist mucous membranes. NECK: Trachea midline, full range of motion, supple. LUNGS: Breath sounds equal, clear to auscultation bilaterally, no wheezes, no crackles, no accessory muscle use. HEART: Regular rate and rhythm, S1, S2 without murmur, rub or gallop. ABDOMEN: Soft, nontender, nondistended, normoactive bowel sounds, no guarding, no rebound, no hepatosplenomegaly, no masses. EXTREMITIES: 2+ pulses, warm, well-perfused, no edema. NEUROLOGICAL: Cranial nerves II through XII grossly intact. Normal speech, gait not observed. PSYCH: Normal mood, normal affect. SKIN: Warm, dry, normal turgor, no rashes or lesions noted Laboratory Results - last 24 hr 06/14/16 06/14/16 06/14/16 05:54 07:15 10:51 WBC RBC Hgb Hct MCV MCHC RDW Plt Count MPV Puncture Site Right radial ABG pH 7.47 H ABG pCO2 at Pt Temp 46.4 H ABG pO2 at Pt Temp 71.9 ABG HCO3 33.0 H ABG O2 Sat (Measured) 94.5 ABG O2 Content 12.4 L ABG Base Excess 8.6 H Rafi Test Positive O2 Delivery Device Mechanical vent Oxygen Flow Rate 30% Vent Mode A/c Vent Rate 14 Mechanical Rate Yes PEEP 5.0 Pressure Support Vent 350ml POC Glucometer 170.42523 192.11914 06/14/16 06/15/16 16:34 05:20 WBC 8.4 RBC 4.41 Hgb 10.5 L D Hct 33.0 D MCV 74.7 L MCHC 31.8 L RDW 26.5 H Plt Count 248 MPV 8.8 Puncture Site ABG pH ABG pCO2 at Pt Temp ABG pO2 at Pt Temp ABG HCO3 ABG O2 Sat (Measured) ABG O2 Content ABG Base Excess Rafi Test O2 Delivery Device Oxygen Flow Rate Vent Mode Vent Rate Mechanical Rate PEEP Pressure Support Vent POC Glucometer [phone] Active Medications Generic Name Dose Route Start Last Admin Trade Name Freq PRN Reason Stop Dose Admin Acetaminophen 650 mg 06/04/16 02:00 06/14/16 14:35 Tylenol - PO 650 mg Q4H PRN Administration FEVER OR PAIN Albuterol/Ipratropium 1 amp 06/13/16 12:00 06/15/16 05:56 Duoneb - NEB 1 amp QIDR [facility] Administration Alprazolam 0.25 mg 06/11/16 15:56 06/14/16 21:16 Xanax - PO 0.25 mg Q6H PRN Administration ANXIETY Aspirin 81 mg 06/14/16 20:06 Asa - PO DAILY [facility] Atorvastatin Calcium 80 mg 05/31/16 22:00 06/14/16 21:16 Lipitor - PO 80 mg HS [facility] Administration Docusate Sodium 100 mg 05/31/16 10:00 06/14/16 09:03 Colace - PO Not Given DAILY [facility] Enalapril Maleate 5 mg 06/14/16 20:07 06/14/16 21:16 Vasotec - PO 5 mg BID [facility] Administration Enoxaparin Sodium 40 mg 06/14/16 10:00 06/14/16 09:16 Lovenox - SQ 40 mg DAILY [facility] Administration Hydralazine HCl 10 mg 06/14/16 20:07 06/15/16 06:14 Apresoline - PO 10 mg TID [facility] Administration Insulin Aspart 1 vial 05/31/16 07:00 06/15/16 06:15 Novolog Vial Sliding Scale - SQ Not Given TIDAC [facility] Protocol Morphine Sulfate 2 mg 06/12/16 09:02 06/14/16 06:42 Morphine Injection - IVPUSH 2 mg Q3H PRN Administration PAIN Pantoprazole Sodium 40 mg 06/15/16 10:00 Protonix - PO DAILY [facility] Prednisone 40 mg 06/14/16 20:07 Deltasone - PO DAILY [facility] Verapamil HCl 120 mg 06/15/16 10:00 Calan Sr - PO DAILY [facility] ASSESSMENT/PLAN:
[2016-06-15 07:22] LABS: ANISOCYTOSIS 2+; MICROCYTOSIS 2+
--- NOTE | 2016-06-15 08:32 | PN ---
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, Physician Chief Complaint: remains extubated History of Present Illness: TELE: NSR, PSVT, short self limited NSVT - Current Medication List Current Medications: Active Medications Acetaminophen (Tylenol -) 650 mg PO Q4H PRN PRN Reason: FEVER OR PAIN Last Admin: 06/14/16 14:35 Dose: 650 mg Albuterol/Ipratropium (Duoneb -) 1 amp NEB QIDR [facility] Last Admin: 06/15/16 05:56 Dose: 1 amp Alprazolam (Xanax -) 0.25 mg PO Q6H PRN PRN Reason: ANXIETY Last Admin: 06/14/16 21:16 Dose: 0.25 mg Aspirin (Asa -) 81 mg PO DAILY [facility] Atorvastatin Calcium (Lipitor -) 80 mg PO HS [facility] Last Admin: 06/14/16 21:16 Dose: 80 mg Docusate Sodium (Colace -) 100 mg PO DAILY [facility] Last Admin: 06/14/16 09:03 Dose: Not Given Enalapril Maleate (Vasotec -) 5 mg PO BID [facility] Last Admin: 06/14/16 21:16 Dose: 5 mg Enoxaparin Sodium (Lovenox -) 40 mg SQ DAILY [facility] Last Admin: 06/14/16 09:16 Dose: 40 mg Hydralazine HCl (Apresoline -) 10 mg PO TID [facility] Last Admin: 06/15/16 06:14 Dose: 10 mg Insulin Aspart (Novolog Vial Sliding Scale -) 1 vial SQ TIDAC [facility] PRN Reason: Protocol Last Admin: 06/15/16 06:15 Dose: Not Given Morphine Sulfate (Morphine Injection -) 2 mg IVPUSH Q3H PRN PRN Reason: PAIN Last Admin: 06/14/16 06:42 Dose: 2 mg Pantoprazole Sodium (Protonix -) 40 mg PO DAILY [facility] Prednisone (Deltasone -) 40 mg PO DAILY [facility] Verapamil HCl (Calan Sr -) 120 mg PO DAILY [facility] - Objective Vital Signs: Vital Signs Temperature 98.2 F 06/15/16 06:00 Pulse Rate 95 H 06/15/16 06:00 Respiratory Rate 18 06/15/16 06:00 Blood Pressure 153/65 06/15/16 06:00 O2 Sat by Pulse Oximetry (%) 98 06/15/16 01:35 Constitutional: Yes: Calm Eyes: Yes: Conjunctiva Clear Cardiovascular: Yes: Regular Rate and Rhythm Respiratory: Yes: Other (b/l rhonchi without active wheezing) Gastrointestinal: Yes: Soft Edema: No Neurological: Yes: Alert, Oriented ...Motor Strength: WNL Labs: CBC, BMP 06/15/16 05:20 06/14/16 06:00 INR, PTT INR 1.02 (0.82-1.09) 06/09/16 05:05 Laboratory Tests 06/14/16 06/15/16 06:00 05:20 WBC 8.4 Hgb 10.5 L D Plt Count 248 Sodium 142 Potassium 4.4 Creatinine 0.5 L - ....Imaging EKG: Image Reviewed Assessment/Plan Assessment/Plan Influenza with acute respiratory failure, now with difficulty weaning Anemia NSTEMI History breast cancer, lung mass with negative bx COPD, chronic with chronic hypoxemia Mild PSVT Chronic diastolic CHF Carotid stenosis s/p CEA REC: Acute respiratory failure requiring intubation, + influenza-- now extubated -dosing lasix PRN NSTEMI/PSVT: -in setting of acute illness, acute resp failure -known underlying CAD with suspected chronic angina -On ASA -has refused cath -Repeat echo w/ normal LV fxn. Mild -Rate control of PSVT with Verapamil -Has not tolerated B-blockers (wheezing)
[2016-06-15] MEDS: ALPRAZolam 0.25 MG TABLET PO PRN ×3 (08:41→21:59)
[2016-06-15] MEDS: ENALAPRIL MALEATE 5 MG TABLET (FP) PO SCH ×2 (09:00→23:14)
[2016-06-15] MEDS ORDERED: PT OWN MED DRAWER 7, Y5N ONE ×3 (09:09→20:56)
[2016-06-15] MEDS: DOCUSATE SODIUM 100 MG CAPSULE (FP) PO SCH (09:25)
[2016-06-15] MEDS: ENOXAPARIN NA (PORCINE) 40 MG/0.4 ML DISP.SYRIN SQ SCH (09:26)
[2016-06-15] MEDS ORDERED: VERAPAMIL HCL 120 MG E.R. TABLET PO SCH (10:00)
[2016-06-15] MEDS ORDERED: PANTOPRAZOLE 40 MG TABLET (FP) PO SCH (10:00)
--- NOTE | 2016-06-15 10:55 | PN ---
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, PRODUCTION PLANNING MANAGER - Note 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: Selected Entries 06/14/16 06/14/16 06/14/16 02:00 08:00 10:00 Temperature 98.6 F 97.6 F 97.4 F L 06/14/16 06/14/16 06/14/16 12:00 14:00 16:00 Temperature 97.6 F 98.8 F 98.0 F 06/14/16 06/14/16 06/15/16 18:00 22:00 02:00 Temperature 97.2 F L 98.2 F 98.9 F 06/15/16 06/15/16 06:00 10:00 Temperature 98.2 F 97.5 F L Laboratory Tests 06/14/16 06/15/16 05:05 05:20 WBC 9.6 8.4 Pt reports an excellent appetite and denies dysphagia. Voice is mildly dysphonic. Monitor PO tolerance.
[2016-06-15] MEDS: morphine CARPU-JECT 2 MG/1 ML DISP.SYRIN IVPUSH PRN (11:30)
--- NOTE | 2016-06-15 14:31 | PN ---
Physical Exam: SUBJECTIVE: Patient seen and examined at bedside in the ICU. She tolerated extubation yesterday and feeling well today. Good appetite since extubation. No complaint about her breathing, denies chest pain, fever, chills. OBJECTIVE: Vital Signs Period Temp Pulse Resp BP Sys/Rasheed Pulse Ox Last 24 Hr 97.2 F-98.9 F 74-120 18-25 124-168/50-70 93-99 GENERAL: AAO x 3, extubated yesterday and tolerating NC HEAD: AT, NC EYES: Pupils equal, round and reactive to light, sclera anicteric, conjunctiva clear ENT: nares patent oropharynx clear without exudates LUNGS: slight rhonchi b/l HEART: RRR, S1 and S2, ejection murmur, rub ABDOMEN: +bs, soft, non-tender, no rebound, guarding EXTREMITIES: No peripheral edema. CBCD WBC 8.4 K/mm3 (4.0-10.0) 06/15/16 05:20 RBC 4.41 M/mm3 (3.60-5.2) 06/15/16 05:20 Hgb 10.5 GM/dL (10.7-15.3) L D 06/15/16 05:20 Hct 33.0 % (32.4-45.2) D 06/15/16 05:20 MCV 74.7 fl (80-96) L 06/15/16 05:20 MCHC 31.8 g/dl (32.0-36.0) L 06/15/16 05:20 RDW 26.5 % (11.6-15.6) H 06/15/16 05:20 Plt Count 248 K/MM3 (134-434) 06/15/16 05:20 MPV 8.8 fl (7.5-11.1) 06/15/16 05:20 CMP Sodium 142 mmol/L (136-145) 06/14/16 06:00 Potassium 4.4 mmol/L (3.5-5.1) 06/14/16 06:00 Chloride 99 mmol/L (98-107) 06/14/16 06:00 Carbon Dioxide 35 mmol/L (21-32) H 06/14/16 06:00 Anion Gap 8 (8-16) 06/14/16 06:00 BUN 21 mg/dL (7-18) H 06/14/16 06:00 Creatinine 0.5 mg/dL (0.55-1.02) L 06/14/16 06:00 Creat Clearance w eGFR > 60 (>60) 06/14/16 06:00 Calcium 8.9 mg/dL (8.5-10.1) 06/14/16 06:00 Total Bilirubin 0.3 mg/dL (0.2-1.0) 06/14/16 06:00 AST 18 U/L (15-37) 06/14/16 06:00 ALT 17 U/L (12-78) 06/14/16 06:00 Alkaline Phosphatase 54 U/L (45-117) 06/14/16 06:00 Total Protein 5.2 g/dl (6.4-8.2) L 06/14/16 06:00 Albumin 2.0 g/dl (3.4-5.0) L 06/14/16 06:00 Intake & Output 06/12/16 06/13/16 06/14/16 06/15/16 23:59 23:59 23:59 23:59 Intake Total 630 1830 450 360 Output Total 1700 2100 1600 1050 Balance -1070 -270 -1150 -690 Weight 60.016 kg 59.239 kg 56.518 kg 53.252 kg Active Medications Generic Name Dose Route Start Last Admin Trade Name Freq PRN Reason Stop Dose Admin Acetaminophen 650 mg 06/04/16 02:00 06/14/16 14:35 Tylenol - PO 650 mg Q4H PRN Administration FEVER OR PAIN Albuterol/Ipratropium 1 amp 06/13/16 12:00 06/15/16 11:00 Duoneb - NEB 1 amp QIDR YEISON Administration Alprazolam 0.25 mg 06/11/16 15:56 06/15/16 08:41 Xanax - PO 0.25 mg Q6H PRN Administration ANXIETY Aspirin 81 mg 06/14/16 20:06 06/15/16 09:00 Asa - PO 81 mg DAILY YEISON Administration Atorvastatin Calcium 80 mg 05/31/16 22:00 06/14/16 21:16 Lipitor - PO 80 mg HS YEISON Administration Docusate Sodium 100 mg 05/31/16 10:00 06/15/16 09:25 Colace - PO 100 mg DAILY YEISON Administration Enalapril Maleate 5 mg 06/14/16 20:07 06/15/16 09:00 Vasotec - PO 5 mg BID YEISON Administration Enoxaparin Sodium 40 mg 06/14/16 10:00 06/15/16 09:26 Lovenox - SQ 40 mg DAILY YEISON Administration Hydralazine HCl 10 mg 06/14/16 20:07 06/15/16 06:14 Apresoline - PO 10 mg TID YEISON Administration Insulin Aspart 1 vial 05/31/16 07:00 06/15/16 11:51 Novolog Vial Sliding Scale - SQ 2 units TIDAC YEISON Administration Protocol Morphine Sulfate 2 mg 06/12/16 09:02 06/15/16 11:30 Morphine Injection - IVPUSH 2 mg Q3H PRN Administration PAIN Pantoprazole Sodium 40 mg 06/15/16 10:00 06/15/16 09:27 Protonix - PO 40 mg DAILY YEISON Administration Prednisone 40 mg 06/14/16 20:07 06/15/16 09:26 Deltasone - PO 40 mg DAILY YEISON Administration Verapamil HCl 120 mg 06/15/16 10:00 06/15/16 09:28 Calan Sr - PO 120 mg DAILY YEISON Administration Microbiology 05/30/16: Nasopharyngeal Swab Influenza Types A positive 06/08/16: Urine grew yeast like organism Imaging CXR on 06/15: congestive change decreased slightly CXR on 06/14: improved congestive changes CXR on 06/13: no significant change ECHO: normal LV function ASSESSMENT/PLAN: 75 yo F h/o COPD with chronic bronchitis on home O2, HTN, HLD, CHF, CAD, stable AAA, left breast CA s/p lumpectomy and radiation therapy, remote history of intracranial bleed admitted to the ICU for acute on chronic hypercapneic respiratory failure in the setting of COPD and CHF exacerbation and flu. Respiratory: acute on chronic hypercapneic respiratory failure - Extubated and now on NC - BiPAP PRN - Nebulizers YEISON and PRN - Predisone 40mg daily - Lasix PRN - No daily ABG please - CXR QOD ID: Sepsis 2/2 influenza A - Completed tamiflu zosyn and azitromycin courses - Afrebile and normal WBC Cardiac: NSTEMI vs. Demand ischemia; HTN - On ASA - SVT on verapamil - Vasotec and hydralazine for BP control Heme: Microcytic anemia - HGB stable - Monitor H&H - Transfuse if < 9 per GI FEN - No IVF indicated - Normal lytes, cont. to monitor - Sodium controlled diet Prophylaxis - DVT: lovenox - GI: daily PPI Disposition - May transfer to telemetry Code status - Full code Visit type - Emergency Visit Emergency Visit: No - New Patient This patient is new to me today: No - Critical Care Critical Care patient: Yes Total Critical Care Time (in minutes): 45 Critical Care Statement: The care of this patient involved high complexity decision making to prevent further life threatening deterioration of the patient 's condition and/or to evalute & treat vital organ system(s) failure or risk of failure.
--- NOTE | 2016-06-15 14:55 | PN ---
Teaching Attending Note Name of Resident: Conrad Pagan ATTENDING PHYSICIAN STATEMENT I saw and evaluated the patient. I reviewed the resident's note and discussed the case with the resident. I agree with the resident's findings and plan as documented. SUBJECTIVE: Pt seen and examined in the ICU. Extubated yesterday without incident. Breathing continues to improve. No fevers or chills. OBJECTIVE: Last Vital Signs Temp Pulse Resp BP Pulse Ox 97.5 F L 120 H 24 139/66 95 06/15/16 10:00 06/15/16 12:00 06/15/16 12:00 06/15/16 12:00 06/15/16 13:53 Intake & Output 06/12/16 06/13/16 06/14/16 06/15/16 23:59 23:59 23:59 23:59 Intake Total 630 1830 450 360 Output Total 1700 2100 1600 1050 Balance -1070 -270 -1150 -690 Weight 132 lb 5 oz 130 lb 9.6 oz 124 lb 9.6 oz 117 lb 6.4 oz Gen: mildly tachypneic at rest Heart: tachycardic, regular Lung: scattered rhonchi Abd: soft, nontender Ext: no edema CBC, BMP 06/15/16 05:20 06/14/16 06:00 Active Medications Acetaminophen (Tylenol -) 650 mg PO Q4H PRN PRN Reason: FEVER OR PAIN Last Admin: 06/14/16 14:35 Dose: 650 mg Albuterol/Ipratropium (Duoneb -) 1 amp NEB QIDR [facility] Last Admin: 06/15/16 11:00 Dose: 1 amp Alprazolam (Xanax -) 0.25 mg PO Q6H PRN PRN Reason: ANXIETY Last Admin: 06/15/16 08:41 Dose: 0.25 mg Aspirin (Asa -) 81 mg PO DAILY [facility] Last Admin: 06/15/16 09:00 Dose: 81 mg Atorvastatin Calcium (Lipitor -) 80 mg PO HS [facility] Last Admin: 06/14/16 21:16 Dose: 80 mg Docusate Sodium (Colace -) 100 mg PO DAILY [facility] Last Admin: 06/15/16 09:25 Dose: 100 mg Enalapril Maleate (Vasotec -) 5 mg PO BID [facility] Last Admin: 06/15/16 09:00 Dose: 5 mg Enoxaparin Sodium (Lovenox -) 40 mg SQ DAILY [facility] Last Admin: 06/15/16 09:26 Dose: 40 mg Hydralazine HCl (Apresoline -) 10 mg PO TID [facility] Last Admin: 06/15/16 06:14 Dose: 10 mg Insulin Aspart (Novolog Vial Sliding Scale -) 1 vial SQ TIDAC YEISON PRN Reason: Protocol Last Admin: 06/15/16 11:51 Dose: 2 units Morphine Sulfate (Morphine Injection -) 2 mg IVPUSH Q3H PRN PRN Reason: PAIN Last Admin: 06/15/16 11:30 Dose: 2 mg Pantoprazole Sodium (Protonix -) 40 mg PO DAILY [facility] Last Admin: 06/15/16 09:27 Dose: 40 mg Prednisone (Deltasone -) 40 mg PO DAILY [facility] Last Admin: 06/15/16 09:26 Dose: 40 mg Verapamil HCl (Calan Sr -) 120 mg PO DAILY [facility] Last Admin: 06/15/16 09:28 Dose: 120 mg ASSESSMENT AND PLAN: Acute on Chronic Hypoxic and Hypercapneic Respiratory Failure improving Influenza A s/p treatment Acute COPD Exacerbation CAD +Troponins/Acute NSTEMI Lactic Acidosis resolved h/o Breast Ca 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
--- NOTE | 2016-06-15 16:52 | PN ---
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, Physician History of Present Illness: patient kimberly now on bipap - Current Medication List Current Medications: Active Medications Acetaminophen (Tylenol -) 650 mg PO Q4H PRN PRN Reason: FEVER OR PAIN Last Admin: 06/14/16 14:35 Dose: 650 mg Albuterol/Ipratropium (Duoneb -) 1 amp NEB QIDR [facility] Last Admin: 06/15/16 11:00 Dose: 1 amp Alprazolam (Xanax -) 0.25 mg PO Q6H PRN PRN Reason: ANXIETY Last Admin: 06/15/16 08:41 Dose: 0.25 mg Aspirin (Asa -) 81 mg PO DAILY [facility] Last Admin: 06/15/16 09:00 Dose: 81 mg Atorvastatin Calcium (Lipitor -) 80 mg PO HS [facility] Last Admin: 06/14/16 21:16 Dose: 80 mg Docusate Sodium (Colace -) 100 mg PO DAILY [facility] Last Admin: 06/15/16 09:25 Dose: 100 mg Enalapril Maleate (Vasotec -) 5 mg PO BID [facility] Last Admin: 06/15/16 09:00 Dose: 5 mg Enoxaparin Sodium (Lovenox -) 40 mg SQ DAILY [facility] Last Admin: 06/15/16 09:26 Dose: 40 mg Hydralazine HCl (Apresoline -) 10 mg PO TID [facility] Last Admin: 06/15/16 06:14 Dose: 10 mg Insulin Aspart (Novolog Vial Sliding Scale -) 1 vial SQ TIDAC [facility] PRN Reason: Protocol Last Admin: 06/15/16 11:51 Dose: 2 units Morphine Sulfate (Morphine Injection -) 2 mg IVPUSH Q3H PRN PRN Reason: PAIN Last Admin: 06/15/16 11:30 Dose: 2 mg Pantoprazole Sodium (Protonix -) 40 mg PO DAILY [facility] Last Admin: 06/15/16 09:27 Dose: 40 mg Prednisone (Deltasone -) 40 mg PO DAILY [facility] Last Admin: 06/15/16 09:26 Dose: 40 mg Verapamil HCl (Calan Sr -) 120 mg PO DAILY [facility] Last Admin: 06/15/16 09:28 Dose: 120 mg - Objective Vital Signs: Vital Signs Temperature 99.2 F 06/15/16 14:00 Pulse Rate 109 H 06/15/16 14:00 Respiratory Rate 23 06/15/16 14:00 Blood Pressure 127/65 06/15/16 14:00 O2 Sat by Pulse Oximetry (%) 99 06/15/16 15:38 Constitutional: Yes: No Distress, Calm Cardiovascular: Yes: Regular Rate and Rhythm Respiratory: Yes: Regular, Poor Air Entry Gastrointestinal: Yes: Normal Bowel Sounds, Soft Musculoskeletal: Yes: WNL Extremities: Yes: WNL Neurological: Yes: Alert, Oriented Psychiatric: Yes: Alert, Oriented Labs: CBC, BMP 06/15/16 05:20 06/14/16 06:00 INR, PTT INR 1.02 (0.82-1.09) 06/09/16 05:05 - ....Imaging Chest X-ray: Report Reviewed, Image Reviewed Assessment/Plan Problem List - Problems (1) Respiratory failure Code(s): J96.90 - RESPIRATORY FAILURE, UNSP, UNSP W HYPOXIA OR HYPERCAPNIA Qualifiers: Chronicity: acute Respiratory failure complication: hypoxia and hypercapnia Qualified Code(s): J96.01 - Acute respiratory failure with hypoxia (2) Chronic respiratory failure with hypoxia Code(s): J96.11 - CHRONIC RESPIRATORY FAILURE WITH HYPOXIA (3) CAD (coronary artery disease) Code(s): I25.10 - ATHSCL HEART DISEASE OF [place] CORONARY ARTERY W/O ANG PCTRS (4) COPD (chronic obstructive pulmonary disease) Assessment/Plan: intubated Code(s): J44.9 - CHRONIC OBSTRUCTIVE PULMONARY DISEASE, UNSPECIFIED (5) Chronic diastolic CHF (congestive heart failure) Code(s): I50.32 - CHRONIC DIASTOLIC (CONGESTIVE) HEART FAILURE (6) HLD (hyperlipidemia) Code(s): E78.5 - HYPERLIPIDEMIA, UNSPECIFIED Qualifiers: Hyperlipidemia type: unspecified Qualified Code(s): E78.5 - Hyperlipidemia, unspecified (7) HTN (hypertension) Code(s): I10 - ESSENTIAL (PRIMARY) HYPERTENSION Qualifiers: Hypertension type: essential hypertension Qualified Code(s): I10 - Essential (primary) hypertension (8) History of cigarette smoking Code(s): Z87.891 - PERSONAL HISTORY OF NICOTINE DEPENDENCE +Troponins/Acute NSTEMI Lactic Acidosis h/o Breast Ca 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
--- NOTE | 2016-06-15 16:59 | PN ---
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, Physician History of Present Illness: ON FACE MASK STABLE AWAKE - Current Medication List Current Medications: Active Medications Acetaminophen (Tylenol -) 650 mg PO Q4H PRN PRN Reason: FEVER OR PAIN Last Admin: 06/14/16 14:35 Dose: 650 mg Albuterol/Ipratropium (Duoneb -) 1 amp NEB QIDR [facility] Last Admin: 06/15/16 11:00 Dose: 1 amp Alprazolam (Xanax -) 0.25 mg PO Q6H PRN PRN Reason: ANXIETY Last Admin: 06/15/16 08:41 Dose: 0.25 mg Aspirin (Asa -) 81 mg PO DAILY [facility] Last Admin: 06/15/16 09:00 Dose: 81 mg Atorvastatin Calcium (Lipitor -) 80 mg PO HS [facility] Last Admin: 06/14/16 21:16 Dose: 80 mg Docusate Sodium (Colace -) 100 mg PO DAILY [facility] Last Admin: 06/15/16 09:25 Dose: 100 mg Enalapril Maleate (Vasotec -) 5 mg PO BID [facility] Last Admin: 06/15/16 09:00 Dose: 5 mg Enoxaparin Sodium (Lovenox -) 40 mg SQ DAILY [facility] Last Admin: 06/15/16 09:26 Dose: 40 mg Hydralazine HCl (Apresoline -) 10 mg PO TID [facility] Last Admin: 06/15/16 06:14 Dose: 10 mg Insulin Aspart (Novolog Vial Sliding Scale -) 1 vial SQ TIDAC [facility] PRN Reason: Protocol Last Admin: 06/15/16 11:51 Dose: 2 units Morphine Sulfate (Morphine Injection -) 2 mg IVPUSH Q3H PRN PRN Reason: PAIN Last Admin: 06/15/16 11:30 Dose: 2 mg Pantoprazole Sodium (Protonix -) 40 mg PO DAILY [facility] Last Admin: 06/15/16 09:27 Dose: 40 mg Prednisone (Deltasone -) 40 mg PO DAILY [facility] Last Admin: 06/15/16 09:26 Dose: 40 mg Verapamil HCl (Calan Sr -) 120 mg PO DAILY [facility] Last Admin: 06/15/16 09:28 Dose: 120 mg - Objective Vital Signs: Vital Signs Temperature 99.2 F 06/15/16 14:00 Pulse Rate 87 06/15/16 16:00 Respiratory Rate 24 06/15/16 16:00 Blood Pressure 135/62 06/15/16 16:00 O2 Sat by Pulse Oximetry (%) 99 06/15/16 15:38 Constitutional: Yes: No Distress HENT: Yes: Atraumatic Neck: Yes: Supple Cardiovascular: Yes: Regular Rate and Rhythm Respiratory: Yes: Rhonchi Gastrointestinal: Yes: Normal Bowel Sounds Extremities: Yes: WNL Labs: CBC, BMP 06/15/16 05:20 06/14/16 06:00 INR, PTT INR 1.02 (0.82-1.09) 06/09/16 05:05 Problem List - Problems (1) Respiratory failure Assessment/Plan: pt is on bipap/face mask duo nebs if needed ivsteroids...taper Code(s): J96.90 - RESPIRATORY FAILURE, UNSP, UNSP W HYPOXIA OR HYPERCAPNIA Qualifiers: Chronicity: acute Respiratory failure complication: hypoxia and hypercapnia Qualified Code(s): J96.01 - Acute respiratory failure with hypoxia (2) Chronic respiratory failure with hypoxia Assessment/Plan: see above Code(s): J96.11 - CHRONIC RESPIRATORY FAILURE WITH HYPOXIA (3) CAD (coronary artery disease) Assessment/Plan: on meds follow up labs continue current meds Code(s): I25.10 - ATHSCL HEART DISEASE OF [place] CORONARY ARTERY W/O ANG PCTRS (4) COPD (chronic obstructive pulmonary disease) Code(s): J44.9 - CHRONIC OBSTRUCTIVE PULMONARY DISEASE, UNSPECIFIED (5) Chronic diastolic CHF (congestive heart failure) Assessment/Plan: stable on meds Code(s): I50.32 - CHRONIC DIASTOLIC (CONGESTIVE) HEART FAILURE (6) HLD (hyperlipidemia) Code(s): E78.5 - HYPERLIPIDEMIA, UNSPECIFIED Qualifiers: Hyperlipidemia type: unspecified Qualified Code(s): E78.5 - Hyperlipidemia, unspecified (7) HTN (hypertension) Code(s): I10 - ESSENTIAL (PRIMARY) HYPERTENSION Qualifiers: Hypertension type: essential hypertension Qualified Code(s): I10 - Essential (primary) hypertension (8) History of cigarette smoking Code(s): Z87.891 - PERSONAL HISTORY OF NICOTINE DEPENDENCE (9) Influenza Assessment/Plan: on meds id consult Code(s): J11.1 - FLU DUE TO UNIDENTIFIED INFLUENZA VIRUS W OTH RESP MANIFEST
[2016-06-15] MEDS: ATORVASTATIN CA 80 MG TABLET (FP) PO SCH (21:59)
[2016-06-16] MEDS: ALBUTEROL SO4 2.5/IPRATROPIUM 0.5 INH SOL 3 ML VIAL.NEB. NEB SCH ×5 (00:18→23:34)
[2016-06-16] MEDS: morphine CARPU-JECT 2 MG/1 ML DISP.SYRIN IVPUSH PRN ×2 (02:48→08:25)
[2016-06-16] MEDS: hydrALAZINE HCL 10 MG TABLET PO SCH ×3 (06:14→22:20)
[2016-06-16] MEDS: INSULIN SLIDING SCALE (NOVOLOG) 1 VIAL SQ SCH ×3 (06:15→16:58)
--- NOTE | 2016-06-16 09:35 | PN ---
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, Physician Chief Complaint: no distress TELE: NSR SVT History of Present Illness: TELE: NSR, Some of her usual PSVT - Current Medication List Current Medications: Active Medications Acetaminophen (Tylenol -) 650 mg PO Q4H PRN PRN Reason: FEVER OR PAIN Albuterol/Ipratropium (Duoneb -) 1 amp NEB QIDR [facility] Last Admin: 06/16/16 06:17 Dose: 1 amp Alprazolam (Xanax -) 0.25 mg PO Q6H PRN PRN Reason: ANXIETY Last Admin: 06/15/16 21:59 Dose: 0.25 mg Aspirin (Asa -) 81 mg PO DAILY [facility] Atorvastatin Calcium (Lipitor -) 80 mg PO HS [facility] Last Admin: 06/15/16 21:59 Dose: 80 mg Docusate Sodium (Colace -) 100 mg PO DAILY [facility] Enalapril Maleate (Vasotec -) 5 mg PO BID [facility] Last Admin: 06/15/16 23:14 Dose: 5 mg Enoxaparin Sodium (Lovenox -) 40 mg SQ DAILY [facility] Hydralazine HCl (Apresoline -) 10 mg PO TID [facility] Last Admin: 06/16/16 06:14 Dose: 10 mg Insulin Aspart (Novolog Vial Sliding Scale -) 1 vial SQ TIDAC [facility] PRN Reason: Protocol Last Admin: 06/16/16 06:15 Dose: Not Given Morphine Sulfate (Morphine Injection -) 2 mg IVPUSH Q3H PRN PRN Reason: PAIN Last Admin: 06/16/16 08:25 Dose: 2 mg Pantoprazole Sodium (Protonix -) 40 mg PO DAILY [facility] Prednisone (Deltasone -) 40 mg PO DAILY [facility] Verapamil HCl (Calan Sr -) 120 mg PO DAILY [facility] - Objective Vital Signs: Vital Signs Temperature 97.6 F 06/16/16 05:42 Pulse Rate 100 H 06/16/16 05:42 Respiratory Rate 18 06/16/16 05:42 Blood Pressure 140/85 06/16/16 05:42 O2 Sat by Pulse Oximetry (%) 95 06/15/16 22:59 Constitutional: Yes: No Distress Cardiovascular: Yes: Regular Rate and Rhythm Respiratory: Yes: Other (b/l rhonchi) Gastrointestinal: Yes: Soft Edema: No Neurological: Yes: Alert Labs: CBC, BMP 06/15/16 05:20 04/04/17 06:00 INR, PTT INR 1.02 (0.82-1.09) 06/09/16 05:05 - ....Imaging EKG: Image Reviewed Assessment/Plan Influenza with acute respiratory failure, now with difficulty weaning Anemia NSTEMI History breast cancer, lung mass with negative bx COPD, chronic with chronic hypoxemia Mild PSVT Chronic diastolic CHF Carotid stenosis s/p CEA REC: Acute respiratory failure requiring intubation, + influenza-- now extubated NSTEMI/PSVT: -in setting of acute illness, acute resp failure -known underlying CAD with suspected chronic angina -On ASA -has refused cath -Repeat echo w/ normal LV fxn. -Rate control of PSVT with Verapamil -Has not tolerated B-blockers (wheezing)
[2016-06-16] MEDS: ASPIRIN 81 MG CHEWABLE TABLETS PO SCH (10:21)
[2016-06-16] MEDS: ENOXAPARIN NA (PORCINE) 40 MG/0.4 ML DISP.SYRIN SQ SCH (10:21)
[2016-06-16] MEDS: DOCUSATE SODIUM 100 MG CAPSULE (FP) PO SCH (10:22)
[2016-06-16] MEDS: VERAPAMIL HCL 120 MG E.R. TABLET PO SCH (10:22)
[2016-06-16] MEDS: predniSONE 20 MG TABLET (UD) PO SCH (10:22)
[2016-06-16] MEDS: ENALAPRIL MALEATE 5 MG TABLET (FP) PO SCH ×2 (10:23→22:21)
[2016-06-16] MEDS: PANTOPRAZOLE 40 MG TABLET (FP) PO SCH (10:23)
--- NOTE | 2016-06-16 11:12 | PN ---
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, CHART CLERK - Note 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: Selected Entries 06/14/16 06/14/16 06/14/16 02:00 08:00 10:00 Temperature 98.6 F 97.6 F 97.4 F L 06/14/16 06/14/16 06/14/16 12:00 14:00 16:00 Temperature 97.6 F 98.8 F 98.0 F 06/14/16 06/14/16 06/15/16 18:00 22:00 02:00 Temperature 97.2 F L 98.2 F 98.9 F 06/15/16 06/15/16 06:00 10:00 Temperature 98.2 F 97.5 F L Laboratory Tests 06/14/16 06/15/16 05:05 05:20 WBC 9.6 8.4 Pt reports an excellent appetite and denies dysphagia. Voice is mildly dysphonic. Monitor PO tolerance. On Bipap since yesteday. No overt aspiration. Monitor PO tolerance, for increasing congestion, fevers, indication for mbs to r /o silent aspiration.
--- NOTE | 2016-06-16 16:39 | PN ---
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 (short form) - Note 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: Awake and alert on NIPPV. 40% FiO2. Reports that she ate today on NC O2/VM. Intake & Output 06/13/16 06/14/16 06/15/16 06/16/16 23:59 23:59 23:59 23:59 Intake Total 1830 450 880 650 Output Total 2100 1600 1450 350 Balance -270 -1150 -570 300 Weight 130 lb 9.6 oz 124 lb 9.6 oz 117 lb 6.4 oz Last Vital Signs Temp Pulse Resp BP Pulse Ox 98.6 F 83 18 140/99 95 06/16/16 15:28 06/16/16 15:28 06/16/16 15:28 06/16/16 15:28 06/16/16 14:25 Active Medications Acetaminophen (Tylenol -) 650 mg PO Q4H PRN PRN Reason: FEVER OR PAIN Albuterol/Ipratropium (Duoneb -) 1 amp NEB QIDR [facility] Last Admin: 06/16/16 12:07 Dose: 1 amp Alprazolam (Xanax -) 0.25 mg PO Q6H PRN PRN Reason: ANXIETY Last Admin: 06/15/16 21:59 Dose: 0.25 mg Aspirin (Asa -) 81 mg PO DAILY [facility] Last Admin: 06/16/16 10:21 Dose: 81 mg Atorvastatin Calcium (Lipitor -) 80 mg PO HS [facility] Last Admin: 06/15/16 21:59 Dose: 80 mg Docusate Sodium (Colace -) 100 mg PO DAILY [facility] Last Admin: 06/16/16 10:22 Dose: 100 mg Enalapril Maleate (Vasotec -) 5 mg PO BID [facility] Last Admin: 06/16/16 10:23 Dose: 5 mg Enoxaparin Sodium (Lovenox -) 40 mg SQ DAILY [facility] Last Admin: 06/16/16 10:21 Dose: 40 mg Hydralazine HCl (Apresoline -) 10 mg PO TID [facility] Last Admin: 06/16/16 15:07 Dose: 10 mg Insulin Aspart (Novolog Vial Sliding Scale -) 1 vial SQ TIDAC [facility] PRN Reason: Protocol Last Admin: 06/16/16 11:47 Dose: Not Given Morphine Sulfate (Morphine Injection -) 2 mg IVPUSH Q3H PRN PRN Reason: PAIN Last Admin: 06/16/16 08:25 Dose: 2 mg Pantoprazole Sodium (Protonix -) 40 mg PO DAILY [facility] Last Admin: 06/16/16 10:23 Dose: 40 mg Prednisone (Deltasone -) 40 mg PO DAILY [facility] Last Admin: 06/16/16 10:22 Dose: 40 mg Verapamil HCl (Calan Sr -) 120 mg PO DAILY [facility] Last Admin: 06/16/16 10:22 Dose: 120 mg Gen: Mildy tachypneic on NIPPV, awake Heart: RRR Lung: scattered rhonchi Abd: soft, nontender Ext: no edema Laboratory Results - last 24 hr 06/15/16 06/15/16 06/15/16 05:50 11:39 17:31 POC Glucometer 108.30597 212.69167 [phone] 06/16/16 06/16/16 06/16/16 05:52 11:45 15:44 POC Glucometer 117 130 220 ASSESSMENT AND PLAN: Acute on Chronic Hypoxic and Hypercapneic Respiratory Failure Influenza A s/p treatment Acute COPD Exacerbation CAD +Troponins/Acute NSTEMI Lactic Acidosis resolved h/o Breast Ca 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
[2016-06-16] MEDS: ALPRAZolam 0.25 MG TABLET PO PRN (16:48)
--- NOTE | 2016-06-16 16:50 | PN ---
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, Physician History of Present Illness: stable on bipap says she feels well - Current Medication List Current Medications: Active Medications Acetaminophen (Tylenol -) 650 mg PO Q4H PRN PRN Reason: FEVER OR PAIN Albuterol/Ipratropium (Duoneb -) 1 amp NEB QIDR [facility] Last Admin: 06/16/16 12:07 Dose: 1 amp Alprazolam (Xanax -) 0.25 mg PO Q6H PRN PRN Reason: ANXIETY Last Admin: 06/16/16 16:48 Dose: 0.25 mg Aspirin (Asa -) 81 mg PO DAILY [facility] Last Admin: 06/16/16 10:21 Dose: 81 mg Atorvastatin Calcium (Lipitor -) 80 mg PO HS [facility] Last Admin: 06/15/16 21:59 Dose: 80 mg Docusate Sodium (Colace -) 100 mg PO DAILY [facility] Last Admin: 06/16/16 10:22 Dose: 100 mg Enalapril Maleate (Vasotec -) 5 mg PO BID [facility] Last Admin: 06/16/16 10:23 Dose: 5 mg Enoxaparin Sodium (Lovenox -) 40 mg SQ DAILY [facility] Last Admin: 06/16/16 10:21 Dose: 40 mg Hydralazine HCl (Apresoline -) 10 mg PO TID [facility] Last Admin: 06/16/16 15:07 Dose: 10 mg Insulin Aspart (Novolog Vial Sliding Scale -) 1 vial SQ TIDAC [facility] PRN Reason: Protocol Last Admin: 06/16/16 11:47 Dose: Not Given Morphine Sulfate (Morphine Injection -) 2 mg IVPUSH Q3H PRN PRN Reason: PAIN Last Admin: 06/16/16 08:25 Dose: 2 mg Pantoprazole Sodium (Protonix -) 40 mg PO DAILY [facility] Last Admin: 06/16/16 10:23 Dose: 40 mg Prednisone (Deltasone -) 40 mg PO DAILY [facility] Last Admin: 06/16/16 10:22 Dose: 40 mg Verapamil HCl (Calan Sr -) 120 mg PO DAILY [facility] Last Admin: 06/16/16 10:22 Dose: 120 mg - Objective Vital Signs: Vital Signs Temperature 98.6 F 06/16/16 15:28 Pulse Rate 83 06/16/16 15:28 Respiratory Rate 18 06/16/16 15:28 Blood Pressure 140/99 06/16/16 15:28 O2 Sat by Pulse Oximetry (%) 95 06/16/16 14:25 Constitutional: Yes: No Distress, Calm Cardiovascular: Yes: Regular Rate and Rhythm Respiratory: Yes: Regular, On BiPap, Poor Air Entry Gastrointestinal: Yes: Normal Bowel Sounds, Soft Musculoskeletal: Yes: WNL Extremities: Yes: WNL Integumentary: Yes: WNL Neurological: Yes: Alert, Oriented Psychiatric: Yes: Alert, Oriented Labs: CBC, BMP 06/15/16 05:20 06/14/16 06:00 INR, PTT INR 1.02 (0.82-1.09) 06/09/16 05:05 Assessment/Plan Problem List - Problems (1) Respiratory failure Code(s): J96.90 - RESPIRATORY FAILURE, UNSP, UNSP W HYPOXIA OR HYPERCAPNIA Qualifiers: Chronicity: acute Respiratory failure complication: hypoxia and hypercapnia Qualified Code(s): J96.01 - Acute respiratory failure with hypoxia (2) Chronic respiratory failure with hypoxia Code(s): J96.11 - CHRONIC RESPIRATORY FAILURE WITH HYPOXIA (3) CAD (coronary artery disease) Code(s): I25.10 - ATHSCL HEART DISEASE OF [place] CORONARY ARTERY W/O ANG PCTRS (4) COPD (chronic obstructive pulmonary disease) Assessment/Plan: intubated Code(s): J44.9 - CHRONIC OBSTRUCTIVE PULMONARY DISEASE, UNSPECIFIED (5) Chronic diastolic CHF (congestive heart failure) Code(s): I50.32 - CHRONIC DIASTOLIC (CONGESTIVE) HEART FAILURE (6) HLD (hyperlipidemia) Code(s): E78.5 - HYPERLIPIDEMIA, UNSPECIFIED Qualifiers: Hyperlipidemia type: unspecified Qualified Code(s): E78.5 - Hyperlipidemia, unspecified (7) HTN (hypertension) Code(s): I10 - ESSENTIAL (PRIMARY) HYPERTENSION Qualifiers: Hypertension type: essential hypertension Qualified Code(s): I10 - Essential (primary) hypertension (8) History of cigarette smoking Code(s): Z87.891 - PERSONAL HISTORY OF NICOTINE DEPENDENCE +Troponins/Acute NSTEMI Lactic Acidosis h/o Breast Ca 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
--- NOTE | 2016-06-16 17:32 | PN ---
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, Physician History of Present Illness: ON FACE MASK STABLE AWAKE - Current Medication List Current Medications: Active Medications Acetaminophen (Tylenol -) 650 mg PO Q4H PRN PRN Reason: FEVER OR PAIN Albuterol/Ipratropium (Duoneb -) 1 amp NEB QIDR [facility] Last Admin: 06/16/16 12:07 Dose: 1 amp Alprazolam (Xanax -) 0.25 mg PO Q6H PRN PRN Reason: ANXIETY Last Admin: 06/16/16 16:48 Dose: 0.25 mg Aspirin (Asa -) 81 mg PO DAILY [facility] Last Admin: 06/16/16 10:21 Dose: 81 mg Atorvastatin Calcium (Lipitor -) 80 mg PO HS [facility] Last Admin: 06/15/16 21:59 Dose: 80 mg Docusate Sodium (Colace -) 100 mg PO DAILY [facility] Last Admin: 06/16/16 10:22 Dose: 100 mg Enalapril Maleate (Vasotec -) 5 mg PO BID [facility] Last Admin: 06/16/16 10:23 Dose: 5 mg Enoxaparin Sodium (Lovenox -) 40 mg SQ DAILY [facility] Last Admin: 06/16/16 10:21 Dose: 40 mg Hydralazine HCl (Apresoline -) 10 mg PO TID [facility] Last Admin: 06/16/16 15:07 Dose: 10 mg Insulin Aspart (Novolog Vial Sliding Scale -) 1 vial SQ TIDAC [facility] PRN Reason: Protocol Last Admin: 06/16/16 16:58 Dose: 2 units Morphine Sulfate (Morphine Injection -) 2 mg IVPUSH Q3H PRN PRN Reason: PAIN Last Admin: 06/16/16 08:25 Dose: 2 mg Pantoprazole Sodium (Protonix -) 40 mg PO DAILY [facility] Last Admin: 06/16/16 10:23 Dose: 40 mg Prednisone (Deltasone -) 40 mg PO DAILY [facility] Last Admin: 06/16/16 10:22 Dose: 40 mg Verapamil HCl (Calan Sr -) 120 mg PO DAILY [facility] Last Admin: 06/16/16 10:22 Dose: 120 mg - Objective Vital Signs: Vital Signs Temperature 98.6 F 06/16/16 15:28 Pulse Rate 83 06/16/16 15:28 Respiratory Rate 18 06/16/16 15:28 Blood Pressure 140/99 06/16/16 15:28 O2 Sat by Pulse Oximetry (%) 95 06/16/16 14:25 Constitutional: Yes: No Distress HENT: Yes: Atraumatic Neck: Yes: Supple Cardiovascular: Yes: Regular Rate and Rhythm Respiratory: Yes: CTA Bilaterally Gastrointestinal: Yes: Normal Bowel Sounds Extremities: Yes: WNL Neurological: Yes: Alert, Oriented Labs: CBC, BMP 06/15/16 05:20 06/14/16 06:00 INR, PTT INR 1.02 (0.82-1.09) 06/09/16 05:05 Problem List - Problems (1) Respiratory failure Code(s): J96.90 - RESPIRATORY FAILURE, UNSP, UNSP W HYPOXIA OR HYPERCAPNIA Qualifiers: Chronicity: acute Respiratory failure complication: hypoxia and hypercapnia Qualified Code(s): J96.01 - Acute respiratory failure with hypoxia (2) Chronic respiratory failure with hypoxia Code(s): J96.11 - CHRONIC RESPIRATORY FAILURE WITH HYPOXIA (3) CAD (coronary artery disease) Code(s): I25.10 - ATHSCL HEART DISEASE OF [place] CORONARY ARTERY W/O ANG PCTRS (4) COPD (chronic obstructive pulmonary disease) Code(s): J44.9 - CHRONIC OBSTRUCTIVE PULMONARY DISEASE, UNSPECIFIED (5) Chronic diastolic CHF (congestive heart failure) Code(s): I50.32 - CHRONIC DIASTOLIC (CONGESTIVE) HEART FAILURE (6) HLD (hyperlipidemia) Code(s): E78.5 - HYPERLIPIDEMIA, UNSPECIFIED Qualifiers: Hyperlipidemia type: unspecified Qualified Code(s): E78.5 - Hyperlipidemia, unspecified (7) HTN (hypertension) Code(s): I10 - ESSENTIAL (PRIMARY) HYPERTENSION Qualifiers: Hypertension type: essential hypertension Qualified Code(s): I10 - Essential (primary) hypertension (8) History of cigarette smoking Code(s): Z87.891 - PERSONAL HISTORY OF NICOTINE DEPENDENCE (9) Influenza Code(s): J11.1 - FLU DUE TO UNIDENTIFIED INFLUENZA VIRUS W OTH RESP MANIFEST Assessment/Plan 1.+Influenza treated 2.Acute respiratory failure on face mask po steroids abx..done duo nebs 3.Worsening anemia 4.NSTEMI 5.History breast cancer, lung mass with negative bx 6.COPD, chronic with chronic hypoxemia 7.chf STABLE R CC 30 MIN
[2016-06-16] MEDS ORDERED: PT OWN MED DRAWER 7, Y5N ONE ×2 (19:45→22:14)
[2016-06-16] MEDS: ATORVASTATIN CA 80 MG TABLET (FP) PO SCH (22:21)
[2016-06-17] MEDS: morphine CARPU-JECT 2 MG/1 ML DISP.SYRIN IVPUSH PRN ×3 (06:15→23:11)
[2016-06-17] MEDS: hydrALAZINE HCL 10 MG TABLET PO SCH ×3 (06:19→22:35)
[2016-06-17] MEDS: INSULIN SLIDING SCALE (NOVOLOG) 1 VIAL SQ SCH ×3 (06:19→16:46)
[2016-06-17] MEDS: ALBUTEROL SO4 2.5/IPRATROPIUM 0.5 INH SOL 3 ML VIAL.NEB. NEB SCH ×4 (06:33→23:30)
--- NOTE | 2016-06-17 09:19 | PN ---
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, Physician History of Present Illness: seen and examined today in nad. awake, alert, oriented, sitting comfortably. no overnight events. no new complaints. feeling better. - Current Medication List Current Medications: Active Medications Acetaminophen (Tylenol -) 650 mg PO Q4H PRN PRN Reason: FEVER OR PAIN Albuterol/Ipratropium (Duoneb -) 1 amp NEB QIDR [facility] Last Admin: 06/17/16 06:33 Dose: 1 amp Alprazolam (Xanax -) 0.25 mg PO Q6H PRN PRN Reason: ANXIETY Last Admin: 06/16/16 16:48 Dose: 0.25 mg Aspirin (Asa -) 81 mg PO DAILY [facility] Last Admin: 06/16/16 10:21 Dose: 81 mg Atorvastatin Calcium (Lipitor -) 80 mg PO HS [facility] Last Admin: 06/16/16 22:21 Dose: 80 mg Docusate Sodium (Colace -) 100 mg PO DAILY [facility] Last Admin: 06/16/16 10:22 Dose: 100 mg Enalapril Maleate (Vasotec -) 5 mg PO BID [facility] Last Admin: 06/16/16 22:21 Dose: 5 mg Enoxaparin Sodium (Lovenox -) 40 mg SQ DAILY [facility] Last Admin: 06/16/16 10:21 Dose: 40 mg Hydralazine HCl (Apresoline -) 10 mg PO TID [facility] Last Admin: 06/17/16 06:19 Dose: 10 mg Insulin Aspart (Novolog Vial Sliding Scale -) 1 vial SQ TIDAC [facility] PRN Reason: Protocol Last Admin: 06/17/16 06:19 Dose: Not Given Morphine Sulfate (Morphine Injection -) 2 mg IVPUSH Q3H PRN PRN Reason: PAIN Last Admin: 06/17/16 06:15 Dose: 2 mg Pantoprazole Sodium (Protonix -) 40 mg PO DAILY [facility] Last Admin: 06/16/16 10:23 Dose: 40 mg Prednisone (Deltasone -) 40 mg PO DAILY [facility] Last Admin: 06/16/16 10:22 Dose: 40 mg Verapamil HCl (Calan Sr -) 120 mg PO DAILY [facility] Last Admin: 06/16/16 10:22 Dose: 120 mg - Objective Vital Signs: Vital Signs Temperature 98.2 F 06/17/16 06:00 Pulse Rate 106 H 06/17/16 06:00 Respiratory Rate 20 06/17/16 06:00 Blood Pressure 141/72 06/17/16 06:00 O2 Sat by Pulse Oximetry (%) 96 06/16/16 22:53 Constitutional: Yes: Well Nourished, No Distress, Calm Eyes: Yes: WNL, Conjunctiva Clear, EOM Intact, PERRL HENT: Yes: WNL, Atraumatic, Normocephalic Neck: Yes: WNL, Supple, Trachea Midline Cardiovascular: Yes: Regular Rate and Rhythm, Murmur, S1, S2. No: Bradycardia, Tachycardia, Pulse Irregular, Bruit, JVD, Gallop, Rub, S3, S4, Varicosities Respiratory: Yes: Regular, On Nasal O2, Rhonchi, Wheezes. No: Rales, SOB Gastrointestinal: Yes: WNL, Normal Bowel Sounds, Soft. No: Distention, Tenderness Musculoskeletal: Yes: Muscle Weakness Extremities: Yes: WNL Edema: No Peripheral Pulses WNL: Yes Peripheral Pulses: Left Doralis Pedis: 2+, Right Dorsalis Pedis: 2+ Integumentary: Yes: WNL Neurological: Yes: Alert, Oriented Psychiatric: Yes: Alert, Oriented Labs: CBC, BMP 06/15/16 05:20 06/14/16 06:00 INR, PTT INR 1.02 (0.82-1.09) 06/09/16 05:05 - ....Imaging Chest X-ray: Report Reviewed, Image Reviewed EKG: Report Reviewed, Image Reviewed Other: Report Reviewed, Image Reviewed (tele-nsr, sinus tach, brief episodes of PSVT, pvcs) Assessment/Plan Influenza with acute respiratory failure, now with difficulty weaning Anemia NSTEMI History breast cancer, lung mass with negative bx COPD, chronic with chronic hypoxemia Mild PSVT Chronic diastolic CHF Carotid stenosis s/p CEA REC: Acute respiratory failure requiring intubation, + influenza-- now extubated NSTEMI-stable -in setting of acute illness, acute resp failure -known underlying CAD with suspected chronic angina -Cont ASA 81mg daily, lipitor, enalapril -has refused cath -Repeat echo w/ normal LV fxn PSVT-adequately controlled -Cont Verapamil -did not tolerate cardizem in the past and not on bblockers due to severe COPD Aortic stenosis-mild -outpatient f/up Carotid stenosis-h/o cea -outpatient f/up
[2016-06-17] MEDS: ENOXAPARIN NA (PORCINE) 40 MG/0.4 ML DISP.SYRIN SQ SCH (10:15)
[2016-06-17] MEDS: DOCUSATE SODIUM 100 MG CAPSULE (FP) PO SCH (10:16)
[2016-06-17] MEDS: ASPIRIN 81 MG CHEWABLE TABLETS PO SCH (10:16)
[2016-06-17] MEDS: predniSONE 20 MG TABLET (UD) PO SCH (10:17)
[2016-06-17] MEDS: ENALAPRIL MALEATE 5 MG TABLET (FP) PO SCH ×2 (10:17→22:36)
[2016-06-17] MEDS: VERAPAMIL HCL 120 MG E.R. TABLET PO SCH (10:18)
[2016-06-17] MEDS: PANTOPRAZOLE 40 MG TABLET (FP) PO SCH (10:18)
--- NOTE | 2016-06-17 11:27 | PN ---
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: Selected Entries 06/15/16 06/15/16 06/15/16 02:00 06:00 10:00 Breakfast 50% Lunch 50% Supper Temperature 98.9 F 98.2 F 97.5 F L 06/15/16 06/15/16 06/16/16 14:00 20:00 02:00 Breakfast 100% Lunch 100% Supper Temperature 99.2 F 98.9 F 97.9 F 06/16/16 06/16/16 06/16/16 05:42 10:00 12:37 Breakfast 50% Lunch Supper Temperature 97.6 F 98.2 F 06/16/16 06/16/16 06/16/16 15:28 17:00 19:27 Breakfast Lunch Supper 50% Temperature 98.6 F 97.4 F L 06/16/16 06/17/16 06/17/16 21:00 02:00 06:00 Breakfast Lunch Supper 50% Temperature 97.8 F 97.8 F 98.2 F Laboratory Tests 06/15/16 05:20 WBC 8.4 Tolerating trial of BIPAP with o2 99%. No s/s of aspiration.
--- NOTE | 2016-06-17 11:31 | PN ---
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 Tolerating PO diet without s/s of aspiration.
--- NOTE | 2016-06-17 14:29 | PN ---
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 (short form) - Note 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: PULMONARY AWAKE/APPEARS SOB WAS EATING LUNCH ON NASAL CANNULA O2 ANICTERIC DISTANT B/L BREATH SOUNDS S1S2 BS+ DIMINISHED EDEMA LOWER EXT LABS/MEDS/NOTES/IMAGING/MICRO REVIEWED Acute on Chronic Hypoxic and Hypercapneic Respiratory Failure Influenza A s/p treatment Acute COPD Exacerbation CAD +Troponins/Acute NSTEMI Lactic Acidosis resolved h/o Breast Ca Lung Nodules with recent biopsy showing necrotizing granulomas Smoker - Will change back to IV medrol for now - inhaled bronchodilators - O2 to keep SpO2 >90% - DVT/GI prophylaxis - continue discussions regarding goals of care - Follow CXR -> Trial of Felix GHOSH MD
[2016-06-17] MEDS: methylPREDNISolone NA SUCC 40 MG/1 ML VIAL IVPB SCH ×2 (15:50→18:37)
--- NOTE | 2016-06-17 16:13 | PN ---
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, Physician History of Present Illness: looking much better on nasal cannula still needing help of bipap hoarse voice - Current Medication List Current Medications: Active Medications Acetaminophen (Tylenol -) 650 mg PO Q4H PRN PRN Reason: FEVER OR PAIN Albuterol/Ipratropium (Duoneb -) 1 amp NEB QIDR [facility] Last Admin: 06/17/16 11:18 Dose: 1 amp Alprazolam (Xanax -) 0.25 mg PO Q6H PRN PRN Reason: ANXIETY Last Admin: 06/16/16 16:48 Dose: 0.25 mg Aspirin (Asa -) 81 mg PO DAILY [facility] Last Admin: 06/17/16 10:16 Dose: 81 mg Atorvastatin Calcium (Lipitor -) 80 mg PO HS [facility] Last Admin: 06/16/16 22:21 Dose: 80 mg Docusate Sodium (Colace -) 100 mg PO DAILY [facility] Last Admin: 06/17/16 10:16 Dose: 100 mg Enalapril Maleate (Vasotec -) 5 mg PO BID [facility] Last Admin: 06/17/16 10:17 Dose: 5 mg Enoxaparin Sodium (Lovenox -) 40 mg SQ DAILY [facility] Last Admin: 06/17/16 10:15 Dose: 40 mg Hydralazine HCl (Apresoline -) 10 mg PO TID [facility] Last Admin: 06/17/16 13:32 Dose: 10 mg Insulin Aspart (Novolog Vial Sliding Scale -) 1 vial SQ TIDAC [facility] PRN Reason: Protocol Last Admin: 06/17/16 11:23 Dose: Not Given Methylprednisolone Sodium Succinate (Solu-Medrol -) 40 mg IVPB Q8H-IV [facility] Last Admin: 06/17/16 15:50 Dose: 40 mg Morphine Sulfate (Morphine Injection -) 2 mg IVPUSH Q3H PRN PRN Reason: PAIN Last Admin: 06/17/16 10:18 Dose: 2 mg Pantoprazole Sodium (Protonix -) 40 mg PO DAILY [facility] Last Admin: 06/17/16 10:18 Dose: 40 mg Verapamil HCl (Calan Sr -) 120 mg PO DAILY [facility] Last Admin: 06/17/16 10:18 Dose: 120 mg - Objective Vital Signs: Vital Signs Temperature 98.6 F 06/17/16 10:00 Pulse Rate 83 06/17/16 13:26 Respiratory Rate 20 06/17/16 13:26 Blood Pressure 127/78 06/17/16 13:26 O2 Sat by Pulse Oximetry (%) 99 06/17/16 11:17 Constitutional: Yes: No Distress, Calm Cardiovascular: Yes: Regular Rate and Rhythm Respiratory: Yes: Regular, On BiPap, On Nasal O2, Poor Air Entry Gastrointestinal: Yes: Normal Bowel Sounds, Soft Musculoskeletal: Yes: WNL Extremities: Yes: WNL Neurological: Yes: Alert, Oriented Psychiatric: Yes: Alert, Oriented Labs: CBC, BMP 06/15/16 05:20 06/14/16 06:00 INR, PTT INR 1.02 (0.82-1.09) 06/09/16 05:05 Assessment/Plan Problem List - Problems (1) Respiratory failure Code(s): J96.90 - RESPIRATORY FAILURE, UNSP, UNSP W HYPOXIA OR HYPERCAPNIA Qualifiers: Chronicity: acute Respiratory failure complication: hypoxia and hypercapnia Qualified Code(s): J96.01 - Acute respiratory failure with hypoxia (2) Chronic respiratory failure with hypoxia Code(s): J96.11 - CHRONIC RESPIRATORY FAILURE WITH HYPOXIA (3) CAD (coronary artery disease) Code(s): I25.10 - ATHSCL HEART DISEASE OF [place] CORONARY ARTERY W/O ANG PCTRS (4) COPD (chronic obstructive pulmonary disease) Assessment/Plan: intubated Code(s): J44.9 - CHRONIC OBSTRUCTIVE PULMONARY DISEASE, UNSPECIFIED (5) Chronic diastolic CHF (congestive heart failure) Code(s): I50.32 - CHRONIC DIASTOLIC (CONGESTIVE) HEART FAILURE (6) HLD (hyperlipidemia) Code(s): E78.5 - HYPERLIPIDEMIA, UNSPECIFIED Qualifiers: Hyperlipidemia type: unspecified Qualified Code(s): E78.5 - Hyperlipidemia, unspecified (7) HTN (hypertension) Code(s): I10 - ESSENTIAL (PRIMARY) HYPERTENSION Qualifiers: Hypertension type: essential hypertension Qualified Code(s): I10 - Essential (primary) hypertension (8) History of cigarette smoking Code(s): Z87.891 - PERSONAL HISTORY OF NICOTINE DEPENDENCE +Troponins/Acute NSTEMI Lactic Acidosis h/o Breast Ca 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
[2016-06-17] MEDS: ALPRAZolam 0.25 MG TABLET PO PRN (16:37)
--- NOTE | 2016-06-17 17:49 | PN ---
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, Physician History of Present Illness: ON NC STABLE AWAKE - Current Medication List Current Medications: Active Medications Acetaminophen (Tylenol -) 650 mg PO Q4H PRN PRN Reason: FEVER OR PAIN Albuterol/Ipratropium (Duoneb -) 1 amp NEB QIDR [facility] Last Admin: 06/17/16 11:18 Dose: 1 amp Alprazolam (Xanax -) 0.25 mg PO Q6H PRN PRN Reason: ANXIETY Last Admin: 06/17/16 16:37 Dose: 0.25 mg Aspirin (Asa -) 81 mg PO DAILY [facility] Last Admin: 06/17/16 10:16 Dose: 81 mg Atorvastatin Calcium (Lipitor -) 80 mg PO HS [facility] Last Admin: 06/16/16 22:21 Dose: 80 mg Docusate Sodium (Colace -) 100 mg PO DAILY [facility] Last Admin: 06/17/16 10:16 Dose: 100 mg Enalapril Maleate (Vasotec -) 5 mg PO BID [facility] Last Admin: 06/17/16 10:17 Dose: 5 mg Enoxaparin Sodium (Lovenox -) 40 mg SQ DAILY [facility] Last Admin: 06/17/16 10:15 Dose: 40 mg Hydralazine HCl (Apresoline -) 10 mg PO TID [facility] Last Admin: 06/17/16 13:32 Dose: 10 mg Insulin Aspart (Novolog Vial Sliding Scale -) 1 vial SQ TIDAC [facility] PRN Reason: Protocol Last Admin: 06/17/16 16:46 Dose: 4 units Methylprednisolone Sodium Succinate (Solu-Medrol -) 40 mg IVPB Q8H-IV [facility] Last Admin: 06/17/16 15:50 Dose: 40 mg Morphine Sulfate (Morphine Injection -) 2 mg IVPUSH Q3H PRN PRN Reason: PAIN Last Admin: 06/17/16 10:18 Dose: 2 mg Pantoprazole Sodium (Protonix -) 40 mg PO DAILY [facility] Last Admin: 06/17/16 10:18 Dose: 40 mg Verapamil HCl (Calan Sr -) 120 mg PO DAILY [facility] Last Admin: 06/17/16 10:18 Dose: 120 mg - Objective Vital Signs: Vital Signs Temperature 98.6 F 06/17/16 10:00 Pulse Rate 83 06/17/16 13:26 Respiratory Rate 20 04/07/17 13:26 Blood Pressure 127/78 04/07/17 13:26 O2 Sat by Pulse Oximetry (%) 99 06/17/16 11:17 Constitutional: Yes: No Distress HENT: Yes: Atraumatic Neck: Yes: Supple Cardiovascular: Yes: Regular Rate and Rhythm Respiratory: Yes: CTA Bilaterally Gastrointestinal: Yes: Normal Bowel Sounds Extremities: Yes: WNL Neurological: Yes: Alert, Oriented Labs: CBC, BMP 06/15/16 05:20 06/14/16 06:00 INR, PTT INR 1.02 (0.82-1.09) 06/09/16 05:05 Problem List - Problems (1) Respiratory failure Code(s): J96.90 - RESPIRATORY FAILURE, UNSP, UNSP W HYPOXIA OR HYPERCAPNIA Qualifiers: Chronicity: acute Respiratory failure complication: hypoxia and hypercapnia Qualified Code(s): J96.01 - Acute respiratory failure with hypoxia (2) Chronic respiratory failure with hypoxia Code(s): J96.11 - CHRONIC RESPIRATORY FAILURE WITH HYPOXIA (3) CAD (coronary artery disease) Code(s): I25.10 - ATHSCL HEART DISEASE OF [place] CORONARY ARTERY W/O ANG PCTRS (4) COPD (chronic obstructive pulmonary disease) Code(s): J44.9 - CHRONIC OBSTRUCTIVE PULMONARY DISEASE, UNSPECIFIED (5) Chronic diastolic CHF (congestive heart failure) Code(s): I50.32 - CHRONIC DIASTOLIC (CONGESTIVE) HEART FAILURE (6) HLD (hyperlipidemia) Code(s): E78.5 - HYPERLIPIDEMIA, UNSPECIFIED Qualifiers: Hyperlipidemia type: unspecified Qualified Code(s): E78.5 - Hyperlipidemia, unspecified (7) HTN (hypertension) Code(s): I10 - ESSENTIAL (PRIMARY) HYPERTENSION Qualifiers: Hypertension type: essential hypertension Qualified Code(s): I10 - Essential (primary) hypertension (8) History of cigarette smoking Code(s): Z87.891 - PERSONAL HISTORY OF NICOTINE DEPENDENCE (9) Influenza Code(s): J11.1 - FLU DUE TO UNIDENTIFIED INFLUENZA VIRUS W OTH RESP MANIFEST Assessment/Plan 1.+Influenza treated 2.Acute respiratory failure on NC po steroids..TAPER abx..done duo nebs 3.ANEMIA STABLE 4.NSTEMI 5.History breast cancer, lung mass with negative bx 6.COPD, chronic with chronic hypoxemia 7.chf STABLE
[2016-06-17] MEDS: ATORVASTATIN CA 80 MG TABLET (FP) PO SCH (22:35)
[2016-06-18] MEDS: methylPREDNISolone NA SUCC 40 MG/1 ML VIAL IVPB SCH ×3 (02:31→17:17)
[2016-06-18] MEDS: INSULIN SLIDING SCALE (NOVOLOG) 1 VIAL SQ SCH ×3 (06:16→17:15)
[2016-06-18] MEDS: hydrALAZINE HCL 10 MG TABLET PO SCH ×3 (06:16→21:51)
[2016-06-18] MEDS: ALBUTEROL SO4 2.5/IPRATROPIUM 0.5 INH SOL 3 ML VIAL.NEB. NEB SCH ×4 (06:40→23:05)
[2016-06-18] MEDS ORDERED: PT OWN MED DRAWER 7, Y5N ONE (08:57)
[2016-06-18] MEDS: morphine CARPU-JECT 2 MG/1 ML DISP.SYRIN IVPUSH PRN ×3 (09:03→14:56)
[2016-06-18] MEDS: ENOXAPARIN NA (PORCINE) 40 MG/0.4 ML DISP.SYRIN SQ SCH (09:07)
[2016-06-18] MEDS: ASPIRIN 81 MG CHEWABLE TABLETS PO SCH (09:07)
[2016-06-18] MEDS: DOCUSATE SODIUM 100 MG CAPSULE (FP) PO SCH (09:07)
[2016-06-18] MEDS: ALPRAZolam 0.25 MG TABLET PO PRN (09:07)
[2016-06-18] MEDS: VERAPAMIL HCL 120 MG E.R. TABLET PO SCH (09:08)
[2016-06-18] MEDS: PANTOPRAZOLE 40 MG TABLET (FP) PO SCH (09:08)
[2016-06-18] MEDS: ENALAPRIL MALEATE 5 MG TABLET (FP) PO SCH ×2 (09:09→21:51)
--- NOTE | 2016-06-18 10:58 | PN ---
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 (short form) - Note 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: PULMONARY AWAKE/APPEARS LESS SOB HAS NIPPV PRN ANICTERIC DISTANT B/L BREATH SOUNDS S1S2 BS+ DIMINISHED EDEMA LOWER EXT LABS/MEDS/NOTES/IMAGING/MICRO REVIEWED Acute on Chronic Hypoxic and Hypercapneic Respiratory Failure Influenza A s/p treatment Acute COPD Exacerbation CAD +Troponins/Acute NSTEMI Lactic Acidosis resolved h/o Breast Ca Lung Nodules with recent biopsy showing necrotizing granulomas Smoker - Will continue IV medrol for now - inhaled bronchodilators - O2 to keep SpO2 >90% - DVT/GI prophylaxis - continue discussions regarding goals of care - Follow CXR -> Trial of Felix GHOSH MD
--- NOTE | 2016-06-18 13:47 | PN ---
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, Physician History of Present Illness: stable no new issues - Current Medication List Current Medications: Active Medications Acetaminophen (Tylenol -) 650 mg PO Q4H PRN PRN Reason: FEVER OR PAIN Albuterol/Ipratropium (Duoneb -) 1 amp NEB QIDR [facility] Last Admin: 06/18/16 11:51 Dose: 1 amp Alprazolam (Xanax -) 0.25 mg PO Q6H PRN PRN Reason: ANXIETY Last Admin: 06/18/16 09:07 Dose: 0.25 mg Aspirin (Asa -) 81 mg PO DAILY [facility] Last Admin: 06/18/16 09:07 Dose: 81 mg Atorvastatin Calcium (Lipitor -) 80 mg PO HS [facility] Last Admin: 06/17/16 22:35 Dose: 80 mg Docusate Sodium (Colace -) 100 mg PO DAILY [facility] Last Admin: 06/18/16 09:07 Dose: 100 mg Enalapril Maleate (Vasotec -) 5 mg PO BID [facility] Last Admin: 06/18/16 09:09 Dose: 5 mg Enoxaparin Sodium (Lovenox -) 40 mg SQ DAILY [facility] Last Admin: 06/18/16 09:07 Dose: 40 mg Hydralazine HCl (Apresoline -) 10 mg PO TID [facility] Last Admin: 06/18/16 06:16 Dose: 10 mg Insulin Aspart (Novolog Vial Sliding Scale -) 1 vial SQ TIDAC [facility] PRN Reason: Protocol Last Admin: 06/18/16 11:59 Dose: 2 units Methylprednisolone Sodium Succinate (Solu-Medrol -) 40 mg IVPB Q8H-IV [facility] Last Admin: 06/18/16 09:07 Dose: 40 mg Morphine Sulfate (Morphine Injection -) 2 mg IVPUSH Q3H PRN PRN Reason: PAIN Last Admin: 06/18/16 09:03 Dose: 2 mg Pantoprazole Sodium (Protonix -) 40 mg PO DAILY [facility] Last Admin: 06/18/16 09:08 Dose: 40 mg Verapamil HCl (Calan Sr -) 120 mg PO DAILY [facility] Last Admin: 06/18/16 09:08 Dose: 120 mg - Objective Vital Signs: Vital Signs Temperature 98.5 F 06/18/16 09:02 Pulse Rate 95 H 06/18/16 09:02 Respiratory Rate 20 06/18/16 06:11 Blood Pressure 145/89 06/18/16 09:02 O2 Sat by Pulse Oximetry (%) 99 06/18/16 02:00 Constitutional: Yes: No Distress, Calm Cardiovascular: Yes: Regular Rate and Rhythm Respiratory: Yes: Regular, Poor Air Entry Gastrointestinal: Yes: Normal Bowel Sounds, Soft Musculoskeletal: Yes: WNL Extremities: Yes: WNL Neurological: Yes: Alert, Oriented Psychiatric: Yes: Alert, Oriented Labs: CBC, BMP 06/15/16 05:20 06/14/16 06:00 INR, PTT INR 1.02 (0.82-1.09) 06/09/16 05:05 Assessment/Plan Problem List - Problems (1) Respiratory failure Code(s): J96.90 - RESPIRATORY FAILURE, UNSP, UNSP W HYPOXIA OR HYPERCAPNIA Qualifiers: Chronicity: acute Respiratory failure complication: hypoxia and hypercapnia Qualified Code(s): J96.01 - Acute respiratory failure with hypoxia (2) Chronic respiratory failure with hypoxia Code(s): J96.11 - CHRONIC RESPIRATORY FAILURE WITH HYPOXIA (3) CAD (coronary artery disease) Code(s): I25.10 - ATHSCL HEART DISEASE OF [place] CORONARY ARTERY W/O ANG PCTRS (4) COPD (chronic obstructive pulmonary disease) Assessment/Plan: intubated Code(s): J44.9 - CHRONIC OBSTRUCTIVE PULMONARY DISEASE, UNSPECIFIED (5) Chronic diastolic CHF (congestive heart failure) Code(s): I50.32 - CHRONIC DIASTOLIC (CONGESTIVE) HEART FAILURE (6) HLD (hyperlipidemia) Code(s): E78.5 - HYPERLIPIDEMIA, UNSPECIFIED Qualifiers: Hyperlipidemia type: unspecified Qualified Code(s): E78.5 - Hyperlipidemia, unspecified (7) HTN (hypertension) Code(s): I10 - ESSENTIAL (PRIMARY) HYPERTENSION Qualifiers: Hypertension type: essential hypertension Qualified Code(s): I10 - Essential (primary) hypertension (8) History of cigarette smoking Code(s): Z87.891 - PERSONAL HISTORY OF NICOTINE DEPENDENCE +Troponins/Acute NSTEMI Lactic Acidosis h/o Breast Ca 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
--- NOTE | 2016-06-18 14:29 | PN ---
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, Physician Chief Complaint: Pt is alert and oriented; had palpitations briefly in am (PSVT noted). History of Present Illness: The patient is a 75 year old black female, with a significant past medical history of hypertension, hyperlipidemia, chronic bronchitis, COPD and left breast CA s/p radiation therapy, who presents to the emergency department via EMS intubated in respiratory arrest. This patient was most recently seen in this ED on 05/20/2016 for shortness of breath and chest pain, was admitted and discharged 3 days ago (05/28/2016). EMS reports that this afternoon, the patient was feeling short of breath and initiated EMS herself from home. EMS reports that upon arrival to the scene, the patient was wheezing with rhonchi and was hypoxic to the 80s. She was subsequently given nebs, steroids, mags and was put on CPAP. She then began to deteriorate with altered mental status so she was intubated with etomidate and succinylcholine. The patient arrives to the ED intubated. Allergies: None reported. Past Surgical History: Right Foot Surgery. Social History: Current smoker. Denies alcohol or drug use. 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 - Current Medication List Current Medications: Active Medications Acetaminophen (Tylenol -) 650 mg PO Q4H PRN PRN Reason: FEVER OR PAIN Albuterol/Ipratropium (Duoneb -) 1 amp NEB QIDR [facility] Last Admin: 06/18/16 11:51 Dose: 1 amp Alprazolam (Xanax -) 0.25 mg PO Q6H PRN PRN Reason: ANXIETY Last Admin: 06/18/16 09:07 Dose: 0.25 mg Aspirin (Asa -) 81 mg PO DAILY [facility] Last Admin: 06/18/16 09:07 Dose: 81 mg Atorvastatin Calcium (Lipitor -) 80 mg PO HS [facility] Last Admin: 06/17/16 22:35 Dose: 80 mg Docusate Sodium (Colace -) 100 mg PO DAILY [facility] Last Admin: 06/18/16 09:07 Dose: 100 mg Enalapril Maleate (Vasotec -) 5 mg PO BID [facility] Last Admin: 06/18/16 09:09 Dose: 5 mg Enoxaparin Sodium (Lovenox -) 40 mg SQ DAILY [facility] Last Admin: 06/18/16 09:07 Dose: 40 mg Hydralazine HCl (Apresoline -) 10 mg PO TID [facility] Last Admin: 06/18/16 06:16 Dose: 10 mg Insulin Aspart (Novolog Vial Sliding Scale -) 1 vial SQ [facility]IDAC [facility] PRN Reason: Protocol Last Admin: 06/18/16 11:59 Dose: 2 units Methylprednisolone Sodium Succinate (Solu-Medrol -) 40 mg IVPB Q8H-IV [facility] Last Admin: 06/18/16 09:07 Dose: 40 mg Morphine Sulfate (Morphine Injection -) 2 mg IVPUSH Q3H PRN PRN Reason: PAIN Last Admin: 06/18/16 09:03 Dose: 2 mg Pantoprazole Sodium (Protonix -) 40 mg PO DAILY [facility] Last Admin: 06/18/16 09:08 Dose: 40 mg Verapamil HCl (Calan Sr -) 120 mg PO DAILY [facility] Last Admin: 06/18/16 09:08 Dose: 120 mg - Objective Vital Signs: Vital Signs Temperature 98.5 F 06/18/16 09:02 Pulse Rate 95 H 06/18/16 09:02 Respiratory Rate 20 06/18/16 06:11 Blood Pressure 145/89 06/18/16 09:02 O2 Sat by Pulse Oximetry (%) 99 06/18/16 02:00 Constitutional: Yes: No Distress Eyes: Yes: WNL HENT: Yes: WNL Neck: Yes: WNL Cardiovascular: Yes: Regular Rate and Rhythm Respiratory: Yes: Regular Gastrointestinal: Yes: Soft ...Rectal Exam: Yes: Deferred Genitourinary: No: Anuria Musculoskeletal: Yes: Muscle Weakness Edema: No Peripheral Pulses WNL: Yes Integumentary: Yes: WNL Neurological: Yes: Alert, Oriented Psychiatric: Yes: Alert, Oriented Labs: CBC, BMP 06/15/16 05:20 06/14/16 06:00 INR, PTT INR 1.02 (0.82-1.09) 06/09/16 05:05 - ....Imaging Other: Image Reviewed (telemetry: NSR: one episode of PSVT) Problem List - Problems (1) Influenza Code(s): J11.1 - FLU DUE TO UNIDENTIFIED INFLUENZA VIRUS W OTH RESP MANIFEST (2) Respiratory failure Assessment/Plan: On bronchodilators, steroid, O2, antibiotics; f/u with pulmonary and ID. Code(s): J96.90 - RESPIRATORY FAILURE, UNSP, UNSP W HYPOXIA OR HYPERCAPNIA Qualifiers: Chronicity: acute Respiratory failure complication: hypoxia and hypercapnia Qualified Code(s): J96.01 - Acute respiratory failure with hypoxia (3) Pulmonary hypertension Code(s): I27.2 - OTHER SECONDARY PULMONARY HYPERTENSION (4) Acute on chronic diastolic CHF (congestive heart failure) Assessment/Plan: now on enalapril for HTN, CHF; f/u BP, BUN/Cr, electrolytes. TSH (and free T3) low 09/25; repeat levels. Code(s): I50.33 - ACUTE ON CHRONIC DIASTOLIC (CONGESTIVE) HEART FAILURE (5) Breast CA Code(s): C50.919 - MALIGNANT NEOPLASM OF UNSP SITE OF UNSPECIFIED FEMALE BREAST Qualifiers: Laterality: unspecified laterality (6) COPD (chronic obstructive pulmonary disease) Code(s): J44.9 - CHRONIC OBSTRUCTIVE PULMONARY DISEASE, UNSPECIFIED (7) HLD (hyperlipidemia) Code(s): E78.5 - HYPERLIPIDEMIA, UNSPECIFIED Qualifiers: Hyperlipidemia type: unspecified Qualified Code(s): E78.5 - Hyperlipidemia, unspecified (8) HTN (hypertension) Assessment/Plan: On diltiazem (increased 06/18/16), enalapril, and hydralazine. Code(s): I10 - ESSENTIAL (PRIMARY) HYPERTENSION Qualifiers: Hypertension type: essential hypertension Qualified Code(s): I10 - Essential (primary) hypertension (9) History of breast cancer Code(s): Z85.3 - PERSONAL HISTORY OF MALIGNANT NEOPLASM OF BREAST (10) History of cigarette smoking Code(s): Z87.891 - PERSONAL HISTORY OF NICOTINE DEPENDENCE (11) NSTEMI (non-ST elevated myocardial infarction) Code(s): I21.4 - NON-ST ELEVATION (NSTEMI) MYOCARDIAL INFARCTION (12) Bradycardia Code(s): R00.1 - BRADYCARDIA, UNSPECIFIED (13) Aortic stenosis Code(s): I35.0 - NONRHEUMATIC AORTIC (VALVE) STENOSIS (14) History of PSVT (paroxysmal supraventricular tachycardia) Assessment/Plan: Recurrent PSVT today. Will increase verapamil to 180 mg daily.. EKG :f/u. BMP and electgrolytes: f/u. Code(s): Z86.79 - PERSONAL HISTORY OF OTHER DISEASES OF THE CIRCULATORY SYSTEM
[2016-06-18] MEDS ORDERED: VERAPAMIL HCL 40 MG TABLET (FP) PO ONE (17:00)
--- NOTE | 2016-06-18 20:02 | PN ---
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, Physician History of Present Illness: ON NC STABLE AWAKE - Current Medication List Current Medications: Active Medications Acetaminophen (Tylenol -) 650 mg PO Q4H PRN PRN Reason: FEVER OR PAIN Albuterol/Ipratropium (Duoneb -) 1 amp NEB QIDR [facility] Last Admin: 06/18/16 18:10 Dose: 1 amp Aspirin (Asa -) 81 mg PO DAILY [facility] Last Admin: 06/18/16 09:07 Dose: 81 mg Atorvastatin Calcium (Lipitor -) 80 mg PO HS [facility] Last Admin: 06/17/16 22:35 Dose: 80 mg Docusate Sodium (Colace -) 100 mg PO DAILY [facility] Last Admin: 06/18/16 09:07 Dose: 100 mg Enalapril Maleate (Vasotec -) 5 mg PO BID [facility] Last Admin: 06/18/16 09:09 Dose: 5 mg Enoxaparin Sodium (Lovenox -) 40 mg SQ DAILY [facility] Last Admin: 06/18/16 09:07 Dose: 40 mg Hydralazine HCl (Apresoline -) 10 mg PO TID [facility] Last Admin: 06/18/16 14:54 Dose: 10 mg Insulin Aspart (Novolog Vial Sliding Scale -) 1 vial SQ TIDAC [facility] PRN Reason: Protocol Last Admin: 06/18/16 17:15 Dose: 2 units Methylprednisolone Sodium Succinate (Solu-Medrol -) 40 mg IVPB Q8H-IV [facility] Last Admin: 06/18/16 17:17 Dose: 40 mg Pantoprazole Sodium (Protonix -) 40 mg PO DAILY [facility] Last Admin: 06/18/16 09:08 Dose: 40 mg Verapamil HCl (Calan Sr -) 180 mg PO DAILY [facility] - Objective Vital Signs: Vital Signs Temperature 98.3 F 06/18/16 18:00 Pulse Rate 83 06/18/16 18:00 Respiratory Rate 20 06/18/16 18:00 Blood Pressure 128/65 06/18/16 18:00 O2 Sat by Pulse Oximetry (%) 99 06/18/16 02:00 Constitutional: Yes: No Distress HENT: Yes: Atraumatic Neck: Yes: Supple Cardiovascular: Yes: Regular Rate and Rhythm Respiratory: Yes: CTA Bilaterally Gastrointestinal: Yes: Normal Bowel Sounds Extremities: Yes: WNL Neurological: Yes: Alert, Oriented Labs: CBC, BMP 06/15/16 05:20 04/04/17 06:00 INR, PTT INR 1.02 (0.82-1.09) 06/09/16 05:05 Problem List - Problems (1) Respiratory failure Code(s): J96.90 - RESPIRATORY FAILURE, UNSP, UNSP W HYPOXIA OR HYPERCAPNIA Qualifiers: Chronicity: acute Respiratory failure complication: hypoxia and hypercapnia Qualified Code(s): J96.01 - Acute respiratory failure with hypoxia (2) Chronic respiratory failure with hypoxia Code(s): J96.11 - CHRONIC RESPIRATORY FAILURE WITH HYPOXIA (3) CAD (coronary artery disease) Code(s): I25.10 - ATHSCL HEART DISEASE OF [place] CORONARY ARTERY W/O ANG PCTRS (4) COPD (chronic obstructive pulmonary disease) Assessment/Plan: on meds stable Code(s): J44.9 - CHRONIC OBSTRUCTIVE PULMONARY DISEASE, UNSPECIFIED (5) Chronic diastolic CHF (congestive heart failure) Code(s): I50.32 - CHRONIC DIASTOLIC (CONGESTIVE) HEART FAILURE (6) HLD (hyperlipidemia) Code(s): E78.5 - HYPERLIPIDEMIA, UNSPECIFIED Qualifiers: Hyperlipidemia type: unspecified Qualified Code(s): E78.5 - Hyperlipidemia, unspecified (7) HTN (hypertension) Code(s): I10 - ESSENTIAL (PRIMARY) HYPERTENSION Qualifiers: Hypertension type: essential hypertension Qualified Code(s): I10 - Essential (primary) hypertension (8) History of cigarette smoking Code(s): Z87.891 - PERSONAL HISTORY OF NICOTINE DEPENDENCE (9) Influenza Code(s): J11.1 - FLU DUE TO UNIDENTIFIED INFLUENZA VIRUS W OTH RESP MANIFEST Assessment/Plan 1.+Influenza treated 2.Acute respiratory failure on NC po steroids..TAPER abx..done duo nebs 3.ANEMIA STABLE 4.NSTEMI 5.History breast cancer, lung mass with negative bx 6.COPD, chronic with chronic hypoxemia 7.chf STABLE
[2016-06-18] MEDS: ATORVASTATIN CA 80 MG TABLET (FP) PO SCH (21:51)
[2016-06-19] MEDS: methylPREDNISolone NA SUCC 40 MG/1 ML VIAL IVPB SCH ×3 (01:39→18:01)
[2016-06-19] MEDS: hydrALAZINE HCL 10 MG TABLET PO SCH ×3 (06:03→21:08)
[2016-06-19] MEDS: ACETAMINOPHEN 325 MG TABLET (FP) PO PRN (06:03)
[2016-06-19] MEDS: INSULIN SLIDING SCALE (NOVOLOG) 1 VIAL SQ SCH ×3 (06:04→17:26)
[2016-06-19] MEDS: ALBUTEROL SO4 2.5/IPRATROPIUM 0.5 INH SOL 3 ML VIAL.NEB. NEB SCH ×4 (06:30→23:20)
[2016-06-19 08:42] LABS: CALCIUM 9.3 mg/dL (8.5-10.1); COCKROFT - GAULT 112.2085; CREATININE 0.4 mg/dL (0.55-1.02)
[2016-06-19] MEDS ORDERED: PT OWN MED DRAWER 7, Y5N ONE (09:35)
[2016-06-19] MEDS: VERAPAMIL HCL 180 MG E.R. TABLET (FP) PO SCH (09:36)
[2016-06-19] MEDS: ASPIRIN 81 MG CHEWABLE TABLETS PO SCH (09:36)
[2016-06-19] MEDS: PANTOPRAZOLE 40 MG TABLET (FP) PO SCH (09:36)
[2016-06-19] MEDS: ENOXAPARIN NA (PORCINE) 40 MG/0.4 ML DISP.SYRIN SQ SCH (09:36)
[2016-06-19] MEDS: DOCUSATE SODIUM 100 MG CAPSULE (FP) PO SCH (09:36)
[2016-06-19] MEDS: ENALAPRIL MALEATE 5 MG TABLET (FP) PO SCH ×2 (09:37→21:08)
--- NOTE | 2016-06-19 10:33 | PN ---
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 (short form) - Note 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: PULMONARY AWAKE/CHRONICALLY SOB HAS NIPPV PRN ANICTERIC DISTANT B/L BREATH SOUNDS S1S2 BS+ DIMINISHED EDEMA LOWER EXT LABS/MEDS/NOTES/IMAGING/MICRO REVIEWED Acute on Chronic Hypoxic and Hypercapneic Respiratory Failure Influenza A s/p treatment Acute COPD Exacerbation CAD +Troponins/Acute NSTEMI Lactic Acidosis resolved h/o Breast Ca Lung Nodules with recent biopsy showing necrotizing granulomas Smoker - Will reduce dose of IV medrol for now - inhaled bronchodilators - O2 to keep SpO2 >90% - DVT/GI prophylaxis - continue discussions regarding goals of care - Follow CXR -> Trial of Felix GHOSH MD
--- NOTE | 2016-06-19 11:56 | PN ---
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, Physician Chief Complaint: Pt is alert and oriented; dyspneic even holding a conversation; had palpitations earlier this morning again. History of Present Illness: The patient is a 75 year old black female, with a significant past medical history of hypertension, hyperlipidemia, chronic bronchitis, COPD and left breast CA s/p radiation therapy, who presents to the emergency department via EMS intubated in respiratory arrest. This patient was most recently seen in this ED on 05/20/2016 for shortness of breath and chest pain, was admitted and discharged 3 days ago (05/28/2016). EMS reports that this afternoon, the patient was feeling short of breath and initiated EMS herself from home. EMS reports that upon arrival to the scene, the patient was wheezing with rhonchi and was hypoxic to the 80s. She was subsequently given nebs, steroids, mags and was put on CPAP. She then began to deteriorate with altered mental status so she was intubated with etomidate and succinylcholine. The patient arrives to the ED intubated. Allergies: None reported. Past Surgical History: Right Foot Surgery. Social History: Current smoker. Denies alcohol or drug use. 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 - Current Medication List Current Medications: Active Medications Acetaminophen (Tylenol -) 650 mg PO Q4H PRN PRN Reason: FEVER OR PAIN Last Admin: 06/19/16 06:03 Dose: 650 mg Albuterol/Ipratropium (Duoneb -) 1 amp NEB QIDR [facility] Last Admin: 06/19/16 06:30 Dose: 1 amp Aspirin (Asa -) 81 mg PO DAILY [facility] Last Admin: 06/19/16 09:36 Dose: 81 mg Atorvastatin Calcium (Lipitor -) 80 mg PO HS [facility] Last Admin: 06/18/16 21:51 Dose: 80 mg Docusate Sodium (Colace -) 100 mg PO DAILY [facility] Last Admin: 06/19/16 09:36 Dose: 100 mg Enalapril Maleate (Vasotec -) 5 mg PO BID [facility] Last Admin: 06/19/16 09:37 Dose: 5 mg Enoxaparin Sodium (Lovenox -) 40 mg SQ DAILY [facility] Last Admin: 06/19/16 09:36 Dose: 40 mg Hydralazine HCl (Apresoline -) 10 mg PO TID [facility] Last Admin: 06/19/16 06:03 Dose: 10 mg Insulin Aspart (Novolog Vial Sliding Scale -) 1 vial SQ TIDAC [facility] PRN Reason: Protocol Last Admin: 06/19/16 06:04 Dose: Not Given Methylprednisolone Sodium Succinate (Solu-Medrol -) 40 mg IVPB Q8H-IV [facility] Last Admin: 06/19/16 09:36 Dose: 40 mg Pantoprazole Sodium (Protonix -) 40 mg PO DAILY [facility] Last Admin: 06/19/16 09:36 Dose: 40 mg Verapamil HCl (Calan Sr -) 180 mg PO DAILY [facility] Last Admin: 06/19/16 09:36 Dose: 180 mg - Objective Vital Signs: Vital Signs Temperature 97.5 F L 06/19/16 05:30 Pulse Rate 69 06/19/16 05:30 Respiratory Rate 22 06/19/16 05:30 Blood Pressure 148/61 06/19/16 05:30 O2 Sat by Pulse Oximetry (%) 98 06/19/16 04:29 Constitutional: Yes: Calm Eyes: Yes: WNL HENT: Yes: WNL Neck: Yes: WNL Cardiovascular: Yes: Regular Rate and Rhythm Respiratory: Yes: Diminished, SOB, Tachypnea ...Rectal Exam: Yes: Deferred Genitourinary: No: Anuria Musculoskeletal: Yes: Muscle Weakness Extremities: Yes: Cool Edema: No Peripheral Pulses: Left Doralis Pedis: 1+, Right Dorsalis Pedis: 1+ Neurological: Yes: Alert, Oriented, Weakness Labs: CBC, BMP 06/15/16 05:20 06/19/16 05:35 INR, PTT INR 1.02 (0.82-1.09) 06/09/16 05:05 Abnormal Lab Results 06/19/16 05:35 Carbon Dioxide 35 H Anion Gap 7 L BUN 23 H Creatinine 0.4 L Random Glucose 143 H Problem List - Problems (1) Influenza Code(s): J11.1 - FLU DUE TO UNIDENTIFIED INFLUENZA VIRUS W OTH RESP MANIFEST (2) Respiratory failure Assessment/Plan: dyspneic on minimal exertion. On bronchodilators, steroid, O2, antibiotics; f/u with pulmonary and ID. BP control. PSVT. CXR pending. Code(s): J96.90 - RESPIRATORY FAILURE, UNSP, UNSP W HYPOXIA OR HYPERCAPNIA Qualifiers: Chronicity: acute Respiratory failure complication: hypoxia and hypercapnia Qualified Code(s): J96.01 - Acute respiratory failure with hypoxia (3) Pulmonary hypertension Code(s): I27.2 - OTHER SECONDARY PULMONARY HYPERTENSION (4) Acute on chronic diastolic CHF (congestive heart failure) Assessment/Plan: now on enalapril for HTN, CHF; f/u BP, BUN/Cr, electrolytes. TSH (and free T3) low 09/25; repeat levels. Code(s): I50.33 - ACUTE ON CHRONIC DIASTOLIC (CONGESTIVE) HEART FAILURE (5) Breast CA Code(s): C50.919 - MALIGNANT NEOPLASM OF UNSP SITE OF UNSPECIFIED FEMALE BREAST Qualifiers: Laterality: unspecified laterality (6) COPD (chronic obstructive pulmonary disease) Code(s): J44.9 - CHRONIC OBSTRUCTIVE PULMONARY DISEASE, UNSPECIFIED (7) HLD (hyperlipidemia) Code(s): E78.5 - HYPERLIPIDEMIA, UNSPECIFIED Qualifiers: Hyperlipidemia type: unspecified Qualified Code(s): E78.5 - Hyperlipidemia, unspecified (8) HTN (hypertension) Assessment/Plan: On diltiazem (increased 06/18/16), enalapril, and hydralazine. Code(s): I10 - ESSENTIAL (PRIMARY) HYPERTENSION Qualifiers: Hypertension type: essential hypertension Qualified Code(s): I10 - Essential (primary) hypertension (9) History of breast cancer Code(s): Z85.3 - PERSONAL HISTORY OF MALIGNANT NEOPLASM OF BREAST (10) History of cigarette smoking Code(s): Z87.891 - PERSONAL HISTORY OF NICOTINE DEPENDENCE (11) NSTEMI (non-ST elevated myocardial infarction) Assessment/Plan: On ASA, atorvastatin (LDL was 164 mg/dL); now on enalapril for HTN, NSTEMI. Consider coronary angiogram when stable. Code(s): I21.4 - NON-ST ELEVATION (NSTEMI) MYOCARDIAL INFARCTION (12) Aortic stenosis Code(s): I35.0 - NONRHEUMATIC AORTIC (VALVE) STENOSIS (13) History of PSVT (paroxysmal supraventricular tachycardia) Assessment/Plan: Recurrent PSVT today. increased verapamil to 180 mg daily.. EKG: NSR; chronic lateral wall changes: r/o ischemia. BMP and electgrolytes WNL. F/u TSH and free T3 (the lattere was mildly elevated in 2016). Code(s): Z86.79 - PERSONAL HISTORY OF OTHER DISEASES OF THE CIRCULATORY SYSTEM
[2016-06-19 12:53] LABS: THYROID STIMULATING HORMONE 0.36 uIU/ml (0.358-3.74)
--- NOTE | 2016-06-19 17:04 | PN ---
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, Physician History of Present Illness: stable still with breathing issues patient still hoarse - Current Medication List Current Medications: Active Medications Acetaminophen (Tylenol -) 650 mg PO Q4H PRN PRN Reason: FEVER OR PAIN Last Admin: 06/19/16 06:03 Dose: 650 mg Albuterol/Ipratropium (Duoneb -) 1 amp NEB QIDR [facility] Last Admin: 06/19/16 12:21 Dose: 1 amp Aspirin (Asa -) 81 mg PO DAILY [facility] Last Admin: 06/19/16 09:36 Dose: 81 mg Atorvastatin Calcium (Lipitor -) 80 mg PO HS [facility] Last Admin: 06/18/16 21:51 Dose: 80 mg Docusate Sodium (Colace -) 100 mg PO DAILY [facility] Last Admin: 06/19/16 09:36 Dose: 100 mg Enalapril Maleate (Vasotec -) 5 mg PO BID [facility] Last Admin: 06/19/16 09:37 Dose: 5 mg Enoxaparin Sodium (Lovenox -) 40 mg SQ DAILY [facility] Last Admin: 06/19/16 09:36 Dose: 40 mg Hydralazine HCl (Apresoline -) 10 mg PO TID [facility] Last Admin: 06/19/16 14:37 Dose: 10 mg Insulin Aspart (Novolog Vial Sliding Scale -) 1 vial SQ TIDAC [facility] PRN Reason: Protocol Last Admin: 06/19/16 12:50 Dose: 2 units Methylprednisolone Sodium Succinate (Solu-Medrol -) 40 mg IVPB Q8H-IV [facility] Last Admin: 06/19/16 09:36 Dose: 40 mg Pantoprazole Sodium (Protonix -) 40 mg PO DAILY [facility] Last Admin: 06/19/16 09:36 Dose: 40 mg Verapamil HCl (Calan Sr -) 180 mg PO DAILY [facility] Last Admin: 06/19/16 09:36 Dose: 180 mg - Objective Vital Signs: Vital Signs Temperature 98.5 F 06/19/16 14:00 Pulse Rate 78 06/19/16 14:00 Respiratory Rate 22 06/19/16 14:00 Blood Pressure 126/65 06/19/16 14:00 O2 Sat by Pulse Oximetry (%) 95 06/19/16 09:00 Constitutional: Yes: Calm, Mild Distress Cardiovascular: Yes: Regular Rate and Rhythm Respiratory: Yes: On BiPap, On Nasal O2, Poor Air Entry, Rhonchi, Wheezes Gastrointestinal: Yes: Normal Bowel Sounds, Soft Musculoskeletal: Yes: WNL Extremities: Yes: WNL Neurological: Yes: Alert, Oriented Psychiatric: Yes: Alert, Oriented Labs: CBC, BMP 06/15/16 05:20 06/19/16 05:35 INR, PTT INR 1.02 (0.82-1.09) 06/09/16 05:05 Assessment/Plan Problem List - Problems (1) Respiratory failure Code(s): J96.90 - RESPIRATORY FAILURE, UNSP, UNSP W HYPOXIA OR HYPERCAPNIA Qualifiers: Chronicity: acute Respiratory failure complication: hypoxia and hypercapnia Qualified Code(s): J96.01 - Acute respiratory failure with hypoxia (2) Chronic respiratory failure with hypoxia Code(s): J96.11 - CHRONIC RESPIRATORY FAILURE WITH HYPOXIA (3) CAD (coronary artery disease) Code(s): I25.10 - ATHSCL HEART DISEASE OF [place] CORONARY ARTERY W/O ANG PCTRS (4) COPD (chronic obstructive pulmonary disease) Assessment/Plan: intubated Code(s): J44.9 - CHRONIC OBSTRUCTIVE PULMONARY DISEASE, UNSPECIFIED (5) Chronic diastolic CHF (congestive heart failure) Code(s): I50.32 - CHRONIC DIASTOLIC (CONGESTIVE) HEART FAILURE (6) HLD (hyperlipidemia) Code(s): E78.5 - HYPERLIPIDEMIA, UNSPECIFIED Qualifiers: Hyperlipidemia type: unspecified Qualified Code(s): E78.5 - Hyperlipidemia, unspecified (7) HTN (hypertension) Code(s): I10 - ESSENTIAL (PRIMARY) HYPERTENSION Qualifiers: Hypertension type: essential hypertension Qualified Code(s): I10 - Essential (primary) hypertension (8) History of cigarette smoking Code(s): Z87.891 - PERSONAL HISTORY OF NICOTINE DEPENDENCE +Troponins/Acute NSTEMI Lactic Acidosis h/o Breast Ca Lung Nodules with recent biopsy showing necrotizing granulomas Smoker wbc normal plan continue current mgmt nebulizers rest as per pul incentive byron
--- NOTE | 2016-06-19 17:13 | EKG ---
Test Reason : Blood Pressure : / mmHG Vent. Rate : 077 BPM Atrial Rate : 077 BPM P-R Int : 136 ms QRS Dur : 104 ms QT Int : 378 ms P-R-T Axes : 059 -29 -24 degrees QTc Int : 427 ms NORMAL SINUS RHYTHM WITH SINUS ARRHYTHMIA VOLTAGE CRITERIA FOR LEFT VENTRICULAR HYPERTROPHY T WAVE ABNORMALITY, CONSIDER LATERAL ISCHEMIA ABNORMAL ECG WHEN COMPARED WITH ECG OF 12-JUN-2016 08:32, NO SIGNIFICANT CHANGE WAS FOUND Confirmed by PAULINO CROW MD ([id number]) on 06/19/2016 5:12:38 PM Referred By: Jory RODRIGUEZ Confirmed By:PAULINO CROW MD
--- NOTE | 2016-06-19 20:46 | PN ---
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, Physician History of Present Illness: ON FM STABLE AWAKE - Current Medication List Current Medications: Active Medications Acetaminophen (Tylenol -) 650 mg PO Q4H PRN PRN Reason: FEVER OR PAIN Last Admin: 06/19/16 06:03 Dose: 650 mg Albuterol/Ipratropium (Duoneb -) 1 amp NEB QIDR [facility] Last Admin: 06/19/16 17:59 Dose: 1 amp Aspirin (Asa -) 81 mg PO DAILY [facility] Last Admin: 06/19/16 09:36 Dose: 81 mg Atorvastatin Calcium (Lipitor -) 80 mg PO HS [facility] Last Admin: 06/18/16 21:51 Dose: 80 mg Docusate Sodium (Colace -) 100 mg PO DAILY [facility] Last Admin: 06/19/16 09:36 Dose: 100 mg Enalapril Maleate (Vasotec -) 5 mg PO BID [facility] Last Admin: 06/19/16 09:37 Dose: 5 mg Enoxaparin Sodium (Lovenox -) 40 mg SQ DAILY [facility] Last Admin: 06/19/16 09:36 Dose: 40 mg Hydralazine HCl (Apresoline -) 10 mg PO TID [facility] Last Admin: 06/19/16 14:37 Dose: 10 mg Ibuprofen (Motrin -) 400 mg PO Q6H PRN PRN Reason: PAIN Insulin Aspart (Novolog Vial Sliding Scale -) 1 vial SQ TIDAC [facility] PRN Reason: Protocol Last Admin: 06/19/16 17:26 Dose: Not Given Methylprednisolone Sodium Succinate (Solu-Medrol -) 40 mg IVPB Q8H-IV [facility] Last Admin: 06/19/16 18:01 Dose: 40 mg Pantoprazole Sodium (Protonix -) 40 mg PO DAILY [facility] Last Admin: 06/19/16 09:36 Dose: 40 mg Verapamil HCl (Calan Sr -) 180 mg PO DAILY [facility] Last Admin: 06/19/16 09:36 Dose: 180 mg - Objective Vital Signs: Vital Signs Temperature 97.7 F 06/19/16 18:00 Pulse Rate 81 06/19/16 18:00 Respiratory Rate 21 06/19/16 18:00 Blood Pressure 131/52 06/19/16 18:00 O2 Sat by Pulse Oximetry (%) 99 06/19/16 20:25 Constitutional: Yes: No Distress HENT: Yes: Atraumatic Neck: Yes: Supple Cardiovascular: Yes: Regular Rate and Rhythm Respiratory: Yes: Rhonchi Gastrointestinal: Yes: Normal Bowel Sounds Extremities: Yes: WNL Neurological: Yes: Alert, Oriented Labs: CBC, BMP 06/15/16 05:20 06/19/16 05:35 INR, PTT INR 1.02 (0.82-1.09) 06/09/16 05:05 Problem List - Problems (1) Respiratory failure Assessment/Plan: pt is on bipap/face mask duo nebs if needed ivsteroids...taper Code(s): J96.90 - RESPIRATORY FAILURE, UNSP, UNSP W HYPOXIA OR HYPERCAPNIA Qualifiers: Chronicity: acute Respiratory failure complication: hypoxia and hypercapnia Qualified Code(s): J96.01 - Acute respiratory failure with hypoxia (2) Chronic respiratory failure with hypoxia Assessment/Plan: see above Code(s): J96.11 - CHRONIC RESPIRATORY FAILURE WITH HYPOXIA (3) CAD (coronary artery disease) Assessment/Plan: on meds follow up labs continue current meds Code(s): I25.10 - ATHSCL HEART DISEASE OF [place] CORONARY ARTERY W/O ANG PCTRS (4) COPD (chronic obstructive pulmonary disease) Assessment/Plan: on meds stable Code(s): J44.9 - CHRONIC OBSTRUCTIVE PULMONARY DISEASE, UNSPECIFIED (5) Chronic diastolic CHF (congestive heart failure) Assessment/Plan: stable on meds Code(s): I50.32 - CHRONIC DIASTOLIC (CONGESTIVE) HEART FAILURE (6) HLD (hyperlipidemia) Assessment/Plan: on meds Code(s): E78.5 - HYPERLIPIDEMIA, UNSPECIFIED Qualifiers: Hyperlipidemia type: unspecified Qualified Code(s): E78.5 - Hyperlipidemia, unspecified (7) HTN (hypertension) Assessment/Plan: on meds stable Code(s): I10 - ESSENTIAL (PRIMARY) HYPERTENSION Qualifiers: Hypertension type: essential hypertension Qualified Code(s): I10 - Essential (primary) hypertension (8) History of cigarette smoking Code(s): Z87.891 - PERSONAL HISTORY OF NICOTINE DEPENDENCE (9) Influenza Assessment/Plan: on meds id consult Code(s): J11.1 - FLU DUE TO UNIDENTIFIED INFLUENZA VIRUS W OTH RESP MANIFEST Assessment/Plan 1.+Influenza treated 2.Acute respiratory failure on [place] po steroids..TAPER abx..done duo nebs 3.ANEMIA STABLE 4.NSTEMI 5.History breast cancer, lung mass with negative bx 6.COPD, chronic with chronic hypoxemia 7.chf STABLE
[2016-06-19] MEDS: IBUPROFEN 400 MG TABLET (FP) PO PRN (21:07)
[2016-06-19] MEDS: ATORVASTATIN CA 80 MG TABLET (FP) PO SCH (21:08)
[2016-06-20] MEDS: methylPREDNISolone NA SUCC 40 MG/1 ML VIAL IVPB SCH ×3 (01:22→17:05)
[2016-06-20] MEDS: hydrALAZINE HCL 10 MG TABLET PO SCH ×3 (05:57→22:07)
[2016-06-20] MEDS: INSULIN SLIDING SCALE (NOVOLOG) 1 VIAL SQ SCH ×3 (06:00→17:04)
[2016-06-20] MEDS: IBUPROFEN 400 MG TABLET (FP) PO PRN ×3 (06:23→22:07)
[2016-06-20] MEDS: ALBUTEROL SO4 2.5/IPRATROPIUM 0.5 INH SOL 3 ML VIAL.NEB. NEB SCH ×3 (06:25→18:20)
[2016-06-20] MEDS: ACETAMINOPHEN 325 MG TABLET (FP) PO PRN (08:18)
[2016-06-20] MEDS: ASPIRIN 81 MG CHEWABLE TABLETS PO SCH (09:49)
[2016-06-20] MEDS: DOCUSATE SODIUM 100 MG CAPSULE (FP) PO SCH (09:49)
[2016-06-20] MEDS: VERAPAMIL HCL 180 MG E.R. TABLET (FP) PO SCH (09:49)
[2016-06-20] MEDS: PANTOPRAZOLE 40 MG TABLET (FP) PO SCH (09:50)
[2016-06-20] MEDS: ENALAPRIL MALEATE 5 MG TABLET (FP) PO SCH ×2 (09:50→22:08)
[2016-06-20] MEDS: ENOXAPARIN NA (PORCINE) 40 MG/0.4 ML DISP.SYRIN SQ SCH (09:50)
[2016-06-20 10:24] LABS: TROPONIN I 0.09 ng/ml (0.00-0.05)
[2016-06-20] MEDS ORDERED: NITROGLYCERIN SUBLINGUAL 1/150 0.4 MG TAB SL PRN (11:09)
[2016-06-20] MEDS ORDERED: INSULIN (NOVOLOG) ASPART 100 UNITS/ML 10ML VIAL ONE (11:10)
--- NOTE | 2016-06-20 11:11 | EKG ---
Test Reason : Blood Pressure : / mmHG Vent. Rate : 095 BPM Atrial Rate : 095 BPM P-R Int : 140 ms QRS Dur : 100 ms QT Int : 336 ms P-R-T Axes : 066 -24 041 degrees QTc Int : 422 ms POOR DATA QUALITY, INTERPRETATION MAY BE ADVERSELY AFFECTED SINUS RHYTHM WITH MARKED SINUS ARRHYTHMIA LEFT VENTRICULAR HYPERTROPHY WITH REPOLARIZATION ABNORMALITY ABNORMAL ECG WHEN COMPARED WITH ECG OF 19-JUN-2016 09:47, NONSPECIFIC T WAVE ABNORMALITY HAS REPLACED INVERTED T WAVES IN INFERIOR LEADS Confirmed by RADHA SOTELO MD ([id number]) on 06/20/2016 11:10:43 AM Referred By: BRANDAN QURESHI Confirmed By:RADHA SOTELO MD
--- NOTE | 2016-06-20 11:39 | PN ---
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, Physician History of Present Illness: seen and examined this am. complained of diffuse chest pain and sob this am. seen and examined. states the chest pain is improving. still sob. being put back on bipap. - Current Medication List Current Medications: Active Medications Acetaminophen (Tylenol -) 650 mg PO Q4H PRN PRN Reason: FEVER OR PAIN Last Admin: 06/20/16 08:18 Dose: 650 mg Albuterol/Ipratropium (Duoneb -) 1 amp NEB QIDR [facility] Last Admin: 06/20/16 06:25 Dose: 1 amp Aspirin (Asa -) 81 mg PO DAILY [facility] Last Admin: 06/20/16 09:49 Dose: 81 mg Atorvastatin Calcium (Lipitor -) 80 mg PO HS [facility] Last Admin: 06/19/16 21:08 Dose: 80 mg Docusate Sodium (Colace -) 100 mg PO DAILY [facility] Last Admin: 06/20/16 09:49 Dose: 100 mg Enalapril Maleate (Vasotec -) 5 mg PO BID [facility] Last Admin: 06/20/16 09:50 Dose: 5 mg Enoxaparin Sodium (Lovenox -) 40 mg SQ DAILY [facility] Last Admin: 06/20/16 09:50 Dose: 40 mg Hydralazine HCl (Apresoline -) 10 mg PO TID [facility] Last Admin: 06/20/16 05:57 Dose: 10 mg Ibuprofen (Motrin -) 400 mg PO Q6H PRN PRN Reason: PAIN Last Admin: 06/20/16 06:23 Dose: 400 mg Insulin Aspart (Novolog Vial Sliding Scale -) 1 vial SQ TIDAC [facility] PRN Reason: Protocol Last Admin: 06/20/16 11:14 Dose: 2 units Methylprednisolone Sodium Succinate (Solu-Medrol -) 40 mg IVPB Q8H-IV [facility] Last Admin: 06/20/16 09:50 Dose: 40 mg Nitroglycerin (Nitrostat -) 0.4 mg SL Q5M PRN PRN Reason: FOR CHEST PAIN Pantoprazole Sodium (Protonix -) 40 mg PO DAILY [facility] Last Admin: 06/20/16 09:50 Dose: 40 mg Verapamil HCl (Calan Sr -) 180 mg PO DAILY [facility] Last Admin: 06/20/16 09:49 Dose: 180 mg - Objective Vital Signs: Vital Signs Temperature 97.8 F 06/20/16 05:28 Pulse Rate 95 H 06/20/16 05:28 Respiratory Rate 20 06/20/16 05:28 Blood Pressure 182/90 06/20/16 05:28 O2 Sat by Pulse Oximetry (%) 99 06/20/16 06:35 Constitutional: Yes: Well Nourished, Calm, Mild Distress Eyes: Yes: WNL, Conjunctiva Clear, EOM Intact, PERRL HENT: Yes: WNL, Atraumatic, Normocephalic Neck: Yes: WNL, Supple, Trachea Midline Cardiovascular: Yes: Regular Rate and Rhythm, Murmur, S1, S2. No: Bradycardia, Tachycardia, Pulse Irregular, Bruit, JVD, Gallop, Rub, S3, S4, Varicosities Respiratory: Yes: Regular, Rhonchi, SOB, Wheezes. No: Rales Gastrointestinal: Yes: WNL, Normal Bowel Sounds, Soft. No: Distention, Tenderness Musculoskeletal: Yes: WNL Extremities: Yes: WNL Edema: No Peripheral Pulses WNL: Yes Peripheral Pulses: Left Doralis Pedis: 2+, Right Dorsalis Pedis: 2+ Integumentary: Yes: WNL Neurological: Yes: Alert, Oriented Psychiatric: Yes: Alert, Oriented Labs: CBC, BMP 06/15/16 05:20 06/19/16 05:35 INR, PTT INR 1.02 (0.82-1.09) 06/09/16 05:05 - ....Imaging Chest X-ray: Report Reviewed, Image Reviewed EKG: Report Reviewed, Image Reviewed Other: Report Reviewed, Image Reviewed (tele-nsr, psvt, pvcs) Assessment/Plan Influenza with acute respiratory failure, now with difficulty weaning Anemia NSTEMI History breast cancer, lung mass with negative bx COPD, chronic with chronic hypoxemia Mild PSVT Chronic diastolic CHF Carotid stenosis s/p CEA REC: SOB-Acute respiratory failure requiring intubation, + influenza-- now extubated -wheezing more today -place back on bipap as needed -pulm f/up -NTG SL for chest pain NSTEMI-stable, recurrent chest pain -in setting of acute illness, acute resp failure -known underlying CAD with suspected chronic angina -Cont ASA 81mg daily, lipitor, enalapril -has refused cath -Repeat echo w/ normal LV fxn -NTG SL prn for chest pain PSVT-adequately controlled -Cont Verapamil Aortic stenosis-mild -outpatient f/up Carotid stenosis-h/o cea -outpatient f/up
--- NOTE | 2016-06-20 12:24 | PN ---
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, Physician History of Present Illness: pulmonary alert,on bipap,comfortable,-resp distress - Current Medication List Current Medications: Active Medications Acetaminophen (Tylenol -) 650 mg PO Q4H PRN PRN Reason: FEVER OR PAIN Last Admin: 06/20/16 08:18 Dose: 650 mg Albuterol/Ipratropium (Duoneb -) [address] [facility] Last Admin: 06/20/16 06:25 Dose: 1 amp Aspirin (Asa -) [address] [facility] Last Admin: 06/20/16 09:49 Dose: 81 mg Atorvastatin Calcium (Lipitor -) [address] [facility] Last Admin: 06/19/16 21:08 Dose: 80 mg Docusate Sodium (Colace -) [address] [facility] Last Admin: 06/20/16 09:49 Dose: 100 mg Enalapril Maleate (Vasotec -) [address] [facility] Last Admin: 06/20/16 09:50 Dose: 5 mg Enoxaparin Sodium (Lovenox -) [address] [facility] Last Admin: 06/20/16 09:50 Dose: 40 mg Hydralazine HCl (Apresoline -) [address] [facility] Last Admin: 06/20/16 05:57 Dose: 10 mg Ibuprofen (Motrin -) 400 mg PO Q6H PRN PRN Reason: PAIN Last Admin: 06/20/16 06:23 Dose: 400 mg Insulin Aspart (Novolog Vial Sliding Scale -) [address] [facility] PRN Reason: Protocol Last Admin: 06/20/16 11:14 Dose: 2 units Methylprednisolone Sodium Succinate (Solu-Medrol -) [address]PB Q8H-IV [facility] Last Admin: 06/20/16 09:50 Dose: 40 mg Nitroglycerin (Nitrostat -) 0.4 mg SL Q5M PRN PRN Reason: FOR CHEST PAIN Last Admin: 06/20/16 11:35 Dose: 0.4 mg Pantoprazole Sodium (Protonix -) [address] [facility] Last Admin: 06/20/16 09:50 Dose: 40 mg Verapamil HCl (Calan Sr -) [address] [facility] Last Admin: 06/20/16 09:49 Dose: 180 mg - Objective Vital Signs: Vital Signs Temperature 98 F 06/20/16 10:00 Pulse Rate 92 H 06/20/16 10:00 Respiratory Rate 22 06/20/16 10:00 Blood Pressure 158/72 06/20/16 10:00 O2 Sat by Pulse Oximetry (%) 97 06/20/16 09:00 Constitutional: Yes: No Distress, Thin Eyes: Yes: WNL HENT: Yes: WNL Neck: Yes: WNL Cardiovascular: Yes: Regular Rate and Rhythm, S1, S2 Respiratory: Yes: Diminished Gastrointestinal: Yes: Normal Bowel Sounds, Soft Extremities: Yes: WNL Edema: No Labs: CBC, BMP 06/15/16 05:20 06/19/16 05:35 INR, PTT INR 1.02 (0.82-1.09) 06/09/16 05:05 Problem List - Problems (1) Aortic stenosis Code(s): I35.0 - NONRHEUMATIC AORTIC (VALVE) STENOSIS (2) History of PSVT (paroxysmal supraventricular tachycardia) Code(s): Z86.79 - PERSONAL HISTORY OF OTHER DISEASES OF THE CIRCULATORY SYSTEM (3) NSTEMI (non-ST elevated myocardial infarction) Code(s): I21.4 - NON-ST ELEVATION (NSTEMI) MYOCARDIAL INFARCTION (4) Respiratory failure Code(s): J96.90 - RESPIRATORY FAILURE, UNSP, UNSP W HYPOXIA OR HYPERCAPNIA Qualifiers: Chronicity: acute Respiratory failure complication: hypoxia and hypercapnia Qualified Code(s): J96.01 - Acute respiratory failure with hypoxia (5) Pulmonary hypertension Code(s): I27.2 - OTHER SECONDARY PULMONARY HYPERTENSION (6) Pulmonary nodules Code(s): R91.8 - OTHER NONSPECIFIC ABNORMAL FINDING OF LUNG FIELD (7) COPD (chronic obstructive pulmonary disease) Code(s): J44.9 - CHRONIC OBSTRUCTIVE PULMONARY DISEASE, UNSPECIFIED (8) History of cigarette smoking Code(s): Z87.891 - PERSONAL HISTORY OF NICOTINE DEPENDENCE (9) Acute on chronic respiratory failure with hypoxia and hypercapnia Code(s): J96.21 - ACUTE AND CHRONIC RESPIRATORY FAILURE WITH HYPOXIA J96.22 - ACUTE AND CHRONIC RESPIRATORY FAILURE WITH HYPERCAPNIA Assessment/Plan ASSESSMENT AND PLAN: Acute on Chronic Hypoxic and Hypercapneic Respiratory Failure Influenza A s/p treatment Acute COPD Exacerbation CAD +Troponins/Acute NSTEMI Lactic Acidosis resolved h/o Breast Ca 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
--- NOTE | 2016-06-20 18:27 | PN ---
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, Physician History of Present Illness: ON NC STABLE AWAKE - Current Medication List Current Medications: Active Medications Acetaminophen (Tylenol -) 650 mg PO Q4H PRN PRN Reason: FEVER OR PAIN Last Admin: 06/20/16 08:18 Dose: 650 mg Albuterol/Ipratropium (Duoneb -) 1 amp NEB QIDR [facility] Last Admin: 06/20/16 18:20 Dose: 1 amp Aspirin (Asa -) 81 mg PO DAILY [facility] Last Admin: 06/20/16 09:49 Dose: 81 mg Atorvastatin Calcium (Lipitor -) 80 mg PO HS [facility] Last Admin: 06/19/16 21:08 Dose: 80 mg Docusate Sodium (Colace -) 100 mg PO DAILY [facility] Last Admin: 06/20/16 09:49 Dose: 100 mg Enalapril Maleate (Vasotec -) 5 mg PO BID [facility] Last Admin: 06/20/16 09:50 Dose: 5 mg Enoxaparin Sodium (Lovenox -) 40 mg SQ DAILY [facility] Last Admin: 06/20/16 09:50 Dose: 40 mg Hydralazine HCl (Apresoline -) 10 mg PO TID [facility] Last Admin: 06/20/16 13:32 Dose: 10 mg Ibuprofen (Motrin -) 400 mg PO Q6H PRN PRN Reason: PAIN Last Admin: 06/20/16 15:17 Dose: 400 mg Insulin Aspart (Novolog Vial Sliding Scale -) 1 vial SQ TIDAC [facility] PRN Reason: Protocol Last Admin: 06/20/16 17:04 Dose: 1 units Methylprednisolone Sodium Succinate (Solu-Medrol -) 40 mg IVPB Q8H-IV [facility] Last Admin: 06/20/16 17:05 Dose: 40 mg Nitroglycerin (Nitrostat -) 0.4 mg SL Q5M PRN PRN Reason: FOR CHEST PAIN Last Admin: 06/20/16 11:35 Dose: 0.4 mg Pantoprazole Sodium (Protonix -) 40 mg PO DAILY [facility] Last Admin: 06/20/16 09:50 Dose: 40 mg Verapamil HCl (Calan Sr -) 180 mg PO DAILY [facility] Last Admin: 06/20/16 09:49 Dose: 180 mg - Objective Vital Signs: Vital Signs Temperature 98.4 F 06/20/16 15:19 Pulse Rate 88 06/20/16 15:19 Respiratory Rate 20 06/20/16 15:19 Blood Pressure 125/56 06/20/16 15:19 O2 Sat by Pulse Oximetry (%) 100 06/20/16 15:50 Constitutional: Yes: No Distress HENT: Yes: Atraumatic Neck: Yes: Supple Cardiovascular: Yes: Regular Rate and Rhythm Respiratory: Yes: Rhonchi Gastrointestinal: Yes: Normal Bowel Sounds Extremities: Yes: WNL Neurological: Yes: Alert, Oriented Labs: CBC, BMP 06/15/16 05:20 06/19/16 05:35 INR, PTT INR 1.02 (0.82-1.09) 06/09/16 05:05 Problem List - Problems (1) Respiratory failure Assessment/Plan: pt is on bipap/face mask duo nebs if needed ivsteroids...taper Code(s): J96.90 - RESPIRATORY FAILURE, UNSP, UNSP W HYPOXIA OR HYPERCAPNIA Qualifiers: Chronicity: acute Respiratory failure complication: hypoxia and hypercapnia Qualified Code(s): J96.01 - Acute respiratory failure with hypoxia (2) Chronic respiratory failure with hypoxia Assessment/Plan: see above Code(s): J96.11 - CHRONIC RESPIRATORY FAILURE WITH HYPOXIA (3) CAD (coronary artery disease) Assessment/Plan: on meds follow up labs continue current meds Code(s): I25.10 - ATHSCL HEART DISEASE OF [place] CORONARY ARTERY W/O ANG PCTRS (4) COPD (chronic obstructive pulmonary disease) Assessment/Plan: on meds stable Code(s): J44.9 - CHRONIC OBSTRUCTIVE PULMONARY DISEASE, UNSPECIFIED (5) Chronic diastolic CHF (congestive heart failure) Assessment/Plan: stable on meds Code(s): I50.32 - CHRONIC DIASTOLIC (CONGESTIVE) HEART FAILURE (6) HLD (hyperlipidemia) Assessment/Plan: on meds Code(s): E78.5 - HYPERLIPIDEMIA, UNSPECIFIED Qualifiers: Hyperlipidemia type: unspecified Qualified Code(s): E78.5 - Hyperlipidemia, unspecified (7) HTN (hypertension) Code(s): I10 - ESSENTIAL (PRIMARY) HYPERTENSION Qualifiers: Hypertension type: essential hypertension Qualified Code(s): I10 - Essential (primary) hypertension (8) History of cigarette smoking Code(s): Z87.891 - PERSONAL HISTORY OF NICOTINE DEPENDENCE (9) Influenza Code(s): J11.1 - FLU DUE TO UNIDENTIFIED INFLUENZA VIRUS W OTH RESP MANIFEST Assessment/Plan 1.+Influenza treated 2.Acute respiratory failure on [place] po steroids..TAPER abx..done duo nebs 3.ANEMIA STABLE 4.NSTEMI 5.History breast cancer, lung mass with negative bx 6.COPD, chronic with chronic hypoxemia 7.chf STABLE
--- NOTE | 2016-06-20 21:28 | PN ---
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, Physician History of Present Illness: slowly improving still becomes sob has to take help of bipap voice improving strength improving - Current Medication List Current Medications: Active Medications Acetaminophen (Tylenol -) 650 mg PO Q4H PRN PRN Reason: FEVER OR PAIN Last Admin: 06/20/16 08:18 Dose: 650 mg Albuterol/Ipratropium (Duoneb -) 1 amp NEB QIDR [facility] Last Admin: 06/20/16 18:20 Dose: 1 amp Aspirin (Asa -) 81 mg PO DAILY [facility] Last Admin: 06/20/16 09:49 Dose: 81 mg Atorvastatin Calcium (Lipitor -) 80 mg PO HS [facility] Last Admin: 06/19/16 21:08 Dose: 80 mg Docusate Sodium (Colace -) 100 mg PO DAILY [facility] Last Admin: 06/20/16 09:49 Dose: 100 mg Enalapril Maleate (Vasotec -) 5 mg PO BID [facility] Last Admin: 06/20/16 09:50 Dose: 5 mg Enoxaparin Sodium (Lovenox -) 40 mg SQ DAILY [facility] Last Admin: 06/20/16 09:50 Dose: 40 mg Hydralazine HCl (Apresoline -) 10 mg PO TID [facility] Last Admin: 06/20/16 13:32 Dose: 10 mg Ibuprofen (Motrin -) 400 mg PO Q6H PRN PRN Reason: PAIN Last Admin: 06/20/16 15:17 Dose: 400 mg Insulin Aspart (Novolog Vial Sliding Scale -) 1 vial SQ TIDAC [facility] PRN Reason: Protocol Last Admin: 06/20/16 17:04 Dose: 1 units Methylprednisolone Sodium Succinate (Solu-Medrol -) 40 mg IVPB Q8H-IV [facility] Last Admin: 06/20/16 17:05 Dose: 40 mg Nitroglycerin (Nitrostat -) 0.4 mg SL Q5M PRN PRN Reason: FOR CHEST PAIN Last Admin: 06/20/16 11:35 Dose: 0.4 mg Pantoprazole Sodium (Protonix -) 40 mg PO DAILY [facility] Last Admin: 06/20/16 09:50 Dose: 40 mg Verapamil HCl (Calan Sr -) 180 mg PO DAILY [facility] Last Admin: 06/20/16 09:49 Dose: 180 mg - Objective Vital Signs: Vital Signs Temperature 98.8 F 06/20/16 17:00 Pulse Rate 81 06/20/16 17:00 Respiratory Rate 18 06/20/16 17:00 Blood Pressure 147/66 06/20/16 17:00 O2 Sat by Pulse Oximetry (%) 100 06/20/16 15:50 Constitutional: Yes: No Distress, Calm Cardiovascular: Yes: Regular Rate and Rhythm Respiratory: Yes: Regular, On BiPap, On Nasal O2, Poor Air Entry Gastrointestinal: Yes: Normal Bowel Sounds, Soft Musculoskeletal: Yes: WNL Extremities: Yes: WNL Neurological: Yes: Alert, Oriented Psychiatric: Yes: Alert, Oriented Labs: CBC, BMP 06/15/16 05:20 06/19/16 05:35 INR, PTT INR 1.02 (0.82-1.09) 06/09/16 05:05 Assessment/Plan Problem List - Problems (1) Respiratory failure Code(s): J96.90 - RESPIRATORY FAILURE, UNSP, UNSP W HYPOXIA OR HYPERCAPNIA Qualifiers: Chronicity: acute Respiratory failure complication: hypoxia and hypercapnia Qualified Code(s): J96.01 - Acute respiratory failure with hypoxia (2) Chronic respiratory failure with hypoxia Code(s): J96.11 - CHRONIC RESPIRATORY FAILURE WITH HYPOXIA (3) CAD (coronary artery disease) Code(s): I25.10 - ATHSCL HEART DISEASE OF [place] CORONARY ARTERY W/O ANG PCTRS (4) COPD (chronic obstructive pulmonary disease) Assessment/Plan: intubated Code(s): J44.9 - CHRONIC OBSTRUCTIVE PULMONARY DISEASE, UNSPECIFIED (5) Chronic diastolic CHF (congestive heart failure) Code(s): I50.32 - CHRONIC DIASTOLIC (CONGESTIVE) HEART FAILURE (6) HLD (hyperlipidemia) Code(s): E78.5 - HYPERLIPIDEMIA, UNSPECIFIED Qualifiers: Hyperlipidemia type: unspecified Qualified Code(s): E78.5 - Hyperlipidemia, unspecified (7) HTN (hypertension) Code(s): I10 - ESSENTIAL (PRIMARY) HYPERTENSION Qualifiers: Hypertension type: essential hypertension Qualified Code(s): I10 - Essential (primary) hypertension (8) History of cigarette smoking Code(s): Z87.891 - PERSONAL HISTORY OF NICOTINE DEPENDENCE +Troponins/Acute NSTEMI Lactic Acidosis h/o Breast Ca 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
[2016-06-20] MEDS: ATORVASTATIN CA 80 MG TABLET (FP) PO SCH (22:07)
[2016-06-21] MEDS: ALBUTEROL SO4 2.5/IPRATROPIUM 0.5 INH SOL 3 ML VIAL.NEB. NEB SCH (00:02)
[2016-06-21] MEDS: methylPREDNISolone NA SUCC 40 MG/1 ML VIAL IVPB SCH ×3 (02:30→17:23)
[2016-06-21] MEDS: hydrALAZINE HCL 10 MG TABLET PO SCH ×3 (06:22→21:11)
[2016-06-21] MEDS: INSULIN SLIDING SCALE (NOVOLOG) 1 VIAL SQ SCH ×3 (06:23→16:53)
[2016-06-21] MEDS: IBUPROFEN 400 MG TABLET (FP) PO PRN (06:23)
[2016-06-21] MEDS: DOCUSATE SODIUM 100 MG CAPSULE (FP) PO SCH (09:16)
[2016-06-21] MEDS: ENALAPRIL MALEATE 5 MG TABLET (FP) PO SCH ×2 (09:16→21:10)
[2016-06-21] MEDS: PANTOPRAZOLE 40 MG TABLET (FP) PO SCH (09:16)
[2016-06-21] MEDS: ASPIRIN 81 MG CHEWABLE TABLETS PO SCH (09:16)
[2016-06-21] MEDS: VERAPAMIL HCL 180 MG E.R. TABLET (FP) PO SCH (09:17)
[2016-06-21] MEDS: ENOXAPARIN NA (PORCINE) 40 MG/0.4 ML DISP.SYRIN SQ SCH (09:17)
--- NOTE | 2016-06-21 09:42 | PN ---
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, Physician Chief Complaint: " I'm in a bad mood today" She denies chest pain. History of Present Illness: TELE: reviewed. -NSR, PSVT. NSVT. - Current Medication List Current Medications: Active Medications Acetaminophen (Tylenol -) 650 mg PO Q4H PRN PRN Reason: FEVER OR PAIN Last Admin: 06/20/16 08:18 Dose: 650 mg Alprazolam (Xanax -) 0.25 mg PO Q6H PRN Stop: 06/22/16 09:44 Aspirin (Asa -) 81 mg PO DAILY [facility] Last Admin: 06/21/16 09:16 Dose: 81 mg Atorvastatin Calcium (Lipitor -) 80 mg PO HS [facility] Last Admin: 06/20/16 22:07 Dose: 80 mg Docusate Sodium (Colace -) 100 mg PO DAILY [facility] Last Admin: 06/21/16 09:16 Dose: 100 mg Enalapril Maleate (Vasotec -) 5 mg PO BID [facility] Last Admin: 06/21/16 09:16 Dose: 5 mg Enoxaparin Sodium (Lovenox -) 40 mg SQ DAILY [facility] Last Admin: 06/21/16 09:17 Dose: 40 mg Hydralazine HCl (Apresoline -) 10 mg PO TID [facility] Last Admin: 06/21/16 06:22 Dose: 10 mg Ibuprofen (Motrin -) 400 mg PO Q6H PRN PRN Reason: PAIN Last Admin: 06/21/16 06:23 Dose: 400 mg Insulin Aspart (Novolog Vial Sliding Scale -) 1 vial SQ TIDAC [facility] PRN Reason: Protocol Last Admin: 06/21/16 06:23 Dose: Not Given Methylprednisolone Sodium Succinate (Solu-Medrol -) 40 mg IVPB Q8H-IV [facility] Last Admin: 06/21/16 09:16 Dose: 40 mg Nitroglycerin (Nitrostat -) 0.4 mg SL Q5M PRN PRN Reason: FOR CHEST PAIN Last Admin: 06/20/16 11:35 Dose: 0.4 mg Pantoprazole Sodium (Protonix -) 40 mg PO DAILY [facility] Last Admin: 06/21/16 09:16 Dose: 40 mg Verapamil HCl (Calan Sr -) 180 mg PO DAILY [facility] Last Admin: 06/21/16 09:17 Dose: 180 mg - Objective Vital Signs: Vital Signs Temperature 97.0 F L 06/21/16 05:00 Pulse Rate 82 06/21/16 05:00 Respiratory Rate 20 06/21/16 05:00 Blood Pressure 168/87 06/21/16 05:00 O2 Sat by Pulse Oximetry (%) 98 06/21/16 00:50 Constitutional: Yes: No Distress Cardiovascular: Yes: Regular Rate and Rhythm Respiratory: Yes: Other (b/l rhonchi; decreased breath sounds at bases.) Gastrointestinal: Yes: Soft Edema: No Neurological: Yes: Alert, Oriented Labs: CBC, BMP 06/15/16 05:20 06/19/16 05:35 INR, PTT INR 1.02 (0.82-1.09) 06/09/16 05:05 - ....Imaging EKG: Image Reviewed Assessment/Plan Assessment/Plan Influenza with acute respiratory failure, now with difficulty weaning Anemia NSTEMI History breast cancer, lung mass with negative bx COPD, chronic with chronic hypoxemia Mild PSVT Chronic diastolic CHF Carotid stenosis s/p CEA REC: SOB-Acute respiratory failure requiring intubation, + influenza-- now extubated -bipap as needed -pulm f/up NSTEMI-stable, recurrent chest pain -in setting of acute illness, acute resp failure -known underlying CAD with suspected chronic angina -Cont ASA 81mg daily, lipitor, enalapril -has refused cath -Repeat echo w/ normal LV fxn -NTG SL prn for chest pain PSVT-adequately controlled -Cont Verapamil Aortic stenosis-mild -outpatient f/up Carotid stenosis-h/o cea -outpatient f/up
[2016-06-21] MEDS ORDERED: ALPRAZolam 0.25 MG TABLET PO ONE (09:45)
[2016-06-21] MEDS: ACETAMINOPHEN 325 MG TABLET (FP) PO PRN ×2 (10:05→21:10)
[2016-06-21] MEDS: ALPRAZolam 0.25 MG TABLET PO PRN ×3 (10:06→23:02)
--- NOTE | 2016-06-21 12:18 | PN ---
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, Physician History of Present Illness: PULMONARY ALERT,OOB-CHAIR,COMFORTABLE,LESS DYSPNEIC,-CP - Current Medication List Current Medications: Active Medications Acetaminophen (Tylenol -) 650 mg PO Q4H PRN PRN Reason: FEVER OR PAIN Last Admin: 06/21/16 10:05 Dose: 650 mg Alprazolam (Xanax -) 0.25 mg PO Q6H PRN Stop: 06/22/16 09:44 Last Admin: 06/21/16 10:06 Dose: 0.25 mg Aspirin (Asa -) 81 mg PO DAILY [facility] Last Admin: 06/21/16 09:16 Dose: 81 mg Atorvastatin Calcium (Lipitor -) 80 mg PO HS [facility] Last Admin: 06/20/16 22:07 Dose: 80 mg Docusate Sodium (Colace -) 100 mg PO DAILY [facility] Last Admin: 06/21/16 09:16 Dose: 100 mg Enalapril Maleate (Vasotec -) 5 mg PO BID [facility] Last Admin: 06/21/16 09:16 Dose: 5 mg Enoxaparin Sodium (Lovenox -) 40 mg SQ DAILY [facility] Last Admin: 06/21/16 09:17 Dose: 40 mg Hydralazine HCl (Apresoline -) 10 mg PO TID [facility] Last Admin: 06/21/16 06:22 Dose: 10 mg Ibuprofen (Motrin -) 400 mg PO Q6H PRN PRN Reason: PAIN Last Admin: 06/21/16 06:23 Dose: 400 mg Insulin Aspart (Novolog Vial Sliding Scale -) 1 vial SQ TIDAC [facility] PRN Reason: Protocol Last Admin: 06/21/16 11:43 Dose: 1 units Methylprednisolone Sodium Succinate (Solu-Medrol -) 40 mg IVPB Q8H-IV [facility] Last Admin: 06/21/16 09:16 Dose: 40 mg Nitroglycerin (Nitrostat -) 0.4 mg SL Q5M PRN PRN Reason: FOR CHEST PAIN Last Admin: 06/20/16 11:35 Dose: 0.4 mg Pantoprazole Sodium (Protonix -) 40 mg PO DAILY [facility] Last Admin: 06/21/16 09:16 Dose: 40 mg Verapamil HCl (Calan Sr -) 180 mg PO DAILY [facility] Last Admin: 06/21/16 09:17 Dose: 180 mg - Objective Vital Signs: Vital Signs Temperature 97.0 F L 06/21/16 05:00 Pulse Rate 82 06/21/16 10:30 Respiratory Rate 20 06/21/16 05:00 Blood Pressure 168/87 06/21/16 05:00 O2 Sat by Pulse Oximetry (%) 95 06/21/16 10:30 Constitutional: Yes: Well Nourished, Calm Eyes: Yes: WNL HENT: Yes: WNL Neck: Yes: WNL Cardiovascular: Yes: Regular Rate and Rhythm, S1, S2 Respiratory: Yes: Rhonchi (SCATTERED REE WHEEZES AND RHONCHI), Wheezes Gastrointestinal: Yes: Normal Bowel Sounds, Soft Extremities: Yes: WNL Edema: No Labs: CBC, BMP 06/15/16 05:20 06/19/16 05:35 INR, PTT INR 1.02 (0.82-1.09) 06/09/16 05:05 Problem List - Problems (1) Aortic stenosis Code(s): I35.0 - NONRHEUMATIC AORTIC (VALVE) STENOSIS (2) History of PSVT (paroxysmal supraventricular tachycardia) Code(s): Z86.79 - PERSONAL HISTORY OF OTHER DISEASES OF THE CIRCULATORY SYSTEM (3) NSTEMI (non-ST elevated myocardial infarction) Code(s): I21.4 - NON-ST ELEVATION (NSTEMI) MYOCARDIAL INFARCTION (4) Respiratory failure Code(s): J96.90 - RESPIRATORY FAILURE, UNSP, UNSP W HYPOXIA OR HYPERCAPNIA Qualifiers: Chronicity: acute Respiratory failure complication: hypoxia and hypercapnia Qualified Code(s): J96.01 - Acute respiratory failure with hypoxia (5) Pulmonary hypertension Code(s): I27.2 - OTHER SECONDARY PULMONARY HYPERTENSION (6) Pulmonary nodules Code(s): R91.8 - OTHER NONSPECIFIC ABNORMAL FINDING OF LUNG FIELD (7) COPD (chronic obstructive pulmonary disease) Code(s): J44.9 - CHRONIC OBSTRUCTIVE PULMONARY DISEASE, UNSPECIFIED (8) History of cigarette smoking Code(s): Z87.891 - PERSONAL HISTORY OF NICOTINE DEPENDENCE (9) Acute on chronic respiratory failure with hypoxia and hypercapnia Code(s): J96.21 - ACUTE AND CHRONIC RESPIRATORY FAILURE WITH HYPOXIA J96.22 - ACUTE AND CHRONIC RESPIRATORY FAILURE WITH HYPERCAPNIA Assessment/Plan ASSESSMENT AND PLAN: Acute on Chronic Hypoxic and Hypercapneic Respiratory Failure improving Influenza A s/p treatment Acute COPD Exacerbation CAD +Troponins/Acute NSTEMI Lactic Acidosis resolved h/o Breast Ca 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
--- NOTE | 2016-06-21 15:22 | PN ---
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, Physician History of Present Illness: ON NC STABLE AWAKE - Current Medication List Current Medications: Active Medications Acetaminophen (Tylenol -) 650 mg PO Q4H PRN PRN Reason: FEVER OR PAIN Last Admin: 06/21/16 10:05 Dose: 650 mg Albuterol Sulfate (Ventolin 0.083% Nebulizer Soln -) 1 amp NEB Q4H PRN PRN Reason: SHORT OF BREATH/WHEEZING Alprazolam (Xanax -) 0.25 mg PO Q6H PRN Stop: 06/22/16 09:44 Last Admin: 06/21/16 10:06 Dose: 0.25 mg Aspirin (Asa -) 81 mg PO DAILY [facility] Last Admin: 06/21/16 09:16 Dose: 81 mg Atorvastatin Calcium (Lipitor -) 80 mg PO HS [facility] Last Admin: 06/20/16 22:07 Dose: 80 mg Budesonide/Formoterol Fumarate (Symbicort 160/4.5mcg -) 2 puff IH BID [facility] Docusate Sodium (Colace -) 100 mg PO DAILY [facility] Last Admin: 06/21/16 09:16 Dose: 100 mg Enalapril Maleate (Vasotec -) 5 mg PO BID [facility] Last Admin: 06/21/16 09:16 Dose: 5 mg Enoxaparin Sodium (Lovenox -) 40 mg SQ DAILY [facility] Last Admin: 06/21/16 09:17 Dose: 40 mg Hydralazine HCl (Apresoline -) 10 mg PO TID [facility] Last Admin: 06/21/16 13:12 Dose: 10 mg Ibuprofen (Motrin -) 400 mg PO Q6H PRN PRN Reason: PAIN Last Admin: 06/21/16 06:23 Dose: 400 mg Insulin Aspart (Novolog Vial Sliding Scale -) 1 vial SQ TIDAC [facility] PRN Reason: Protocol Last Admin: 06/21/16 11:43 Dose: 1 units Methylprednisolone Sodium Succinate (Solu-Medrol -) 40 mg IVPB Q8H-IV [facility] Last Admin: 06/21/16 09:16 Dose: 40 mg Nitroglycerin (Nitrostat -) 0.4 mg SL Q5M PRN PRN Reason: FOR CHEST PAIN Last Admin: 06/20/16 11:35 Dose: 0.4 mg Pantoprazole Sodium (Protonix -) 40 mg PO DAILY [facility] Last Admin: 06/21/16 09:16 Dose: 40 mg Tiotropium [place] (Spiriva -) 1 puff IH DAILY [facility] Verapamil HCl (Calan Sr -) 180 mg PO DAILY [facility] Last Admin: 06/21/16 09:17 Dose: 180 mg - Objective Vital Signs: Vital Signs Temperature 97.6 F 06/21/16 14:17 Pulse Rate 86 06/21/16 14:17 Respiratory Rate 22 06/21/16 14:17 Blood Pressure 146/57 06/21/16 14:17 O2 Sat by Pulse Oximetry (%) 95 06/21/16 10:30 Constitutional: Yes: No Distress HENT: Yes: Atraumatic Neck: Yes: Supple Cardiovascular: Yes: Regular Rate and Rhythm Respiratory: Yes: CTA Bilaterally Gastrointestinal: Yes: Normal Bowel Sounds Extremities: Yes: WNL Neurological: Yes: Alert, Oriented Labs: CBC, BMP 06/15/16 05:20 06/19/16 05:35 INR, PTT INR 1.02 (0.82-1.09) 06/09/16 05:05 Problem List - Problems (1) Respiratory failure Code(s): J96.90 - RESPIRATORY FAILURE, UNSP, UNSP W HYPOXIA OR HYPERCAPNIA Qualifiers: Chronicity: acute Respiratory failure complication: hypoxia and hypercapnia Qualified Code(s): J96.01 - Acute respiratory failure with hypoxia (2) Chronic respiratory failure with hypoxia Code(s): J96.11 - CHRONIC RESPIRATORY FAILURE WITH HYPOXIA (3) CAD (coronary artery disease) Code(s): I25.10 - ATHSCL HEART DISEASE OF [place] CORONARY ARTERY W/O ANG PCTRS (4) COPD (chronic obstructive pulmonary disease) Code(s): J44.9 - CHRONIC OBSTRUCTIVE PULMONARY DISEASE, UNSPECIFIED (5) Chronic diastolic CHF (congestive heart failure) Code(s): I50.32 - CHRONIC DIASTOLIC (CONGESTIVE) HEART FAILURE (6) HLD (hyperlipidemia) Code(s): E78.5 - HYPERLIPIDEMIA, UNSPECIFIED Qualifiers: Hyperlipidemia type: unspecified Qualified Code(s): E78.5 - Hyperlipidemia, unspecified (7) HTN (hypertension) Code(s): I10 - ESSENTIAL (PRIMARY) HYPERTENSION Qualifiers: Hypertension type: essential hypertension Qualified Code(s): I10 - Essential (primary) hypertension (8) History of cigarette smoking Code(s): Z87.891 - PERSONAL HISTORY OF NICOTINE DEPENDENCE (9) Influenza Code(s): J11.1 - FLU DUE TO UNIDENTIFIED INFLUENZA VIRUS W OTH RESP MANIFEST Assessment/Plan 1.+Influenza treated 2.Acute respiratory failure on NC po steroids..TAPER abx..done duo nebs 3.ANEMIA STABLE 4.NSTEMI 5.History breast cancer, lung mass with negative bx 6.COPD, chronic with chronic hypoxemia 7.chf STABLE DC PLANNING TO SNF
[2016-06-21] MEDS: TIOTROPIUM BROMIDE 18 MCG/INH (DEVICE W/ 5 CAPSULES) IH SCH (16:51)
[2016-06-21] MEDS: BUDESONIDE/FORMETEROL FUMARATE 160/4.5 mcg INHALER IH SCH ×2 (16:52→22:00)
--- NOTE | 2016-06-21 17:25 | PN ---
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, Physician History of Present Illness: continues to be stable no complaints - Current Medication List Current Medications: Active Medications Acetaminophen (Tylenol -) 650 mg PO Q4H PRN PRN Reason: FEVER OR PAIN Last Admin: 06/21/16 10:05 Dose: 650 mg Albuterol Sulfate (Ventolin 0.083% Nebulizer Soln -) 1 amp NEB Q4H PRN PRN Reason: SHORT OF BREATH/WHEEZING Alprazolam (Xanax -) 0.25 mg PO Q6H PRN Stop: 06/22/16 09:44 Last Admin: 06/21/16 17:23 Dose: 0.25 mg Aspirin (Asa -) 81 mg PO DAILY [facility] Last Admin: 06/21/16 09:16 Dose: 81 mg Atorvastatin Calcium (Lipitor -) 80 mg PO HS [facility] Last Admin: 06/20/16 22:07 Dose: 80 mg Budesonide/Formoterol Fumarate (Symbicort 160/4.5mcg -) 2 puff IH BID [facility] Last Admin: 06/21/16 16:52 Dose: 2 puff Docusate Sodium (Colace -) 100 mg PO DAILY [facility] Last Admin: 06/21/16 09:16 Dose: 100 mg Enalapril Maleate (Vasotec -) 5 mg PO BID [facility] Last Admin: 06/21/16 09:16 Dose: 5 mg Enoxaparin Sodium (Lovenox -) 40 mg SQ DAILY [facility] Last Admin: 06/21/16 09:17 Dose: 40 mg Hydralazine HCl (Apresoline -) 10 mg PO TID [facility] Last Admin: 06/21/16 13:12 Dose: 10 mg Ibuprofen (Motrin -) 400 mg PO Q6H PRN PRN Reason: PAIN Last Admin: 06/21/16 06:23 Dose: 400 mg Insulin Aspart (Novolog Vial Sliding Scale -) 1 vial SQ TIDAC [facility] PRN Reason: Protocol Last Admin: 06/21/16 16:53 Dose: 3 units Methylprednisolone Sodium Succinate (Solu-Medrol -) 40 mg IVPB Q8H-IV [facility] Last Admin: 06/21/16 17:23 Dose: 40 mg Nitroglycerin (Nitrostat -) 0.4 mg SL Q5M PRN PRN Reason: FOR CHEST PAIN Last Admin: 06/20/16 11:35 Dose: 0.4 mg Pantoprazole Sodium (Protonix -) 40 mg PO DAILY [facility] Last Admin: 06/21/16 09:16 Dose: 40 mg Tiotropium [place] (Spiriva -) 1 puff IH DAILY [facility] Last Admin: 06/21/16 16:51 Dose: 1 puff Verapamil HCl (Calan Sr -) 180 mg PO DAILY [facility] Last Admin: 06/21/16 09:17 Dose: 180 mg - Objective Vital Signs: Vital Signs Temperature 97.6 F 06/21/16 14:17 Pulse Rate 86 06/21/16 14:17 Respiratory Rate 22 06/21/16 14:17 Blood Pressure 146/57 06/21/16 14:17 O2 Sat by Pulse Oximetry (%) 95 06/21/16 10:30 Constitutional: Yes: No Distress, Calm Cardiovascular: Yes: Regular Rate and Rhythm Respiratory: Yes: Regular, Poor Air Entry, Rhonchi Gastrointestinal: Yes: Normal Bowel Sounds, Soft Musculoskeletal: Yes: WNL Extremities: Yes: WNL Neurological: Yes: Alert, Oriented Psychiatric: Yes: Alert, Oriented Labs: CBC, BMP 06/15/16 05:20 06/19/16 05:35 INR, PTT INR 1.02 (0.82-1.09) 06/09/16 05:05 Assessment/Plan Problem List - Problems (1) Respiratory failure Code(s): J96.90 - RESPIRATORY FAILURE, UNSP, UNSP W HYPOXIA OR HYPERCAPNIA Qualifiers: Chronicity: acute Respiratory failure complication: hypoxia and hypercapnia Qualified Code(s): J96.01 - Acute respiratory failure with hypoxia (2) Chronic respiratory failure with hypoxia Code(s): J96.11 - CHRONIC RESPIRATORY FAILURE WITH HYPOXIA (3) CAD (coronary artery disease) Code(s): I25.10 - ATHSCL HEART DISEASE OF [place] CORONARY ARTERY W/O ANG PCTRS (4) COPD (chronic obstructive pulmonary disease) Assessment/Plan: intubated Code(s): J44.9 - CHRONIC OBSTRUCTIVE PULMONARY DISEASE, UNSPECIFIED (5) Chronic diastolic CHF (congestive heart failure) Code(s): I50.32 - CHRONIC DIASTOLIC (CONGESTIVE) HEART FAILURE (6) HLD (hyperlipidemia) Code(s): E78.5 - HYPERLIPIDEMIA, UNSPECIFIED Qualifiers: Hyperlipidemia type: unspecified Qualified Code(s): E78.5 - Hyperlipidemia, unspecified (7) HTN (hypertension) Code(s): I10 - ESSENTIAL (PRIMARY) HYPERTENSION Qualifiers: Hypertension type: essential hypertension Qualified Code(s): I10 - Essential (primary) hypertension (8) History of cigarette smoking Code(s): Z87.891 - PERSONAL HISTORY OF NICOTINE DEPENDENCE +Troponins/Acute NSTEMI Lactic Acidosis h/o Breast Ca 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
[2016-06-21] MEDS: ATORVASTATIN CA 80 MG TABLET (FP) PO SCH (21:10)
[2016-06-21] MEDS ORDERED: MAG HYDROX/AL HYDROX/SIMETH 30 ML UNIT-DOSE CUP PO PRN (23:41)
[2016-06-21] MEDS ORDERED: ZOLPIDEM TARTRATE 5 MG TABLET PO ONE (23:45)
[2016-06-22] MEDS: PROPOFOL 100 ML IVPB SCH (01:30)
[2016-06-22] MEDS: methylPREDNISolone NA SUCC 40 MG/1 ML VIAL IVPB SCH ×4 (01:40→18:17)
[2016-06-22] MEDS: ALPRAZolam 0.25 MG TABLET PO PRN (04:57)
[2016-06-22] MEDS: ALBUTEROL SO4 0.083% IH SOL 2.5 MG/3 ML VIAL.NEB. NEB PRN ×2 (05:15→10:29)
[2016-06-22 06:21] LABS: ARTERIAL BLD GAS O2 SATURATION 95.9 % (90-98.9); ARTERIAL BLOOD GAS HCO3 31.8 meq/L (22-26); ARTERIAL BLOOD GAS PO2 78.3 mmHg (70-100)
[2016-06-22 06:22] LABS: ALLENS TEST POSITIVE; ART PUNCT SITE RIGHT BRACHIAL; LPM/O2% 40; PT. ON O2? YES; TYPE OF O2 BIPAP
[2016-06-22 06:23] LABS: ARTERIAL BLOOD GAS pH 7.42 (7.35-7.45); VENT RATE 16
[2016-06-22] MEDS: INSULIN SLIDING SCALE (NOVOLOG) 1 VIAL SQ SCH ×3 (06:50→18:32)
[2016-06-22] MEDS: hydrALAZINE HCL 10 MG TABLET PO SCH ×4 (06:53→21:32)
[2016-06-22 09:09] LABS: MCH 23.2 pg (25.7-33.7); MEAN CELL VOLUME 77.2 fl (80-96); MEAN PLT VOLUME 8.9 fl (7.5-11.1); PLATELET COUNT 162 K/MM3 (134-434); RDW 28.1 % (11.6-15.6); WHITE BLOOD COUNT 10.6 K/mm3 (4.0-10.0)
[2016-06-22 09:34] LABS: ALBUMIN 2.3 g/dl (3.4-5.0); ALK PHOS 67 U/L (45-117); ANION GAP 7 (8-16); BILIRUBIN,TOTAL 0.4 mg/dL (0.2-1.0); CALCIUM 9.5 mg/dL (8.5-10.1); CO2 36 mmol/L (21-32); CREATININE 0.6 mg/dL (0.55-1.02); GLUCOSE,RANDOM 229 mg/dL (74-106); MAGNESIUM 2.3 mg/dL (1.8-2.4); SGOT/AST 48 U/L (15-37); SGPT/ALT 29 U/L (12-78); TOT PROT 6.1 g/dl (6.4-8.2)
[2016-06-22] MEDS ORDERED: PT OWN MED DRAWER 7, Y5N ONE (09:42)
[2016-06-22] MEDS: ENOXAPARIN NA (PORCINE) 40 MG/0.4 ML DISP.SYRIN SQ SCH (10:00)
[2016-06-22] MEDS: VERAPAMIL HCL 180 MG E.R. TABLET (FP) PO SCH (10:01)
[2016-06-22] MEDS: PANTOPRAZOLE 40 MG TABLET (FP) PO SCH (10:01)
[2016-06-22] MEDS: ASPIRIN 81 MG CHEWABLE TABLETS PO SCH (10:01)
[2016-06-22] MEDS: ENALAPRIL MALEATE 5 MG TABLET (FP) PO SCH ×2 (10:02→21:32)
[2016-06-22] MEDS: TIOTROPIUM BROMIDE 18 MCG/INH (DEVICE W/ 5 CAPSULES) IH SCH (10:02)
[2016-06-22] MEDS: DOCUSATE SODIUM 100 MG CAPSULE (FP) PO SCH (10:02)
[2016-06-22] MEDS: BUDESONIDE/FORMETEROL FUMARATE 160/4.5 mcg INHALER IH SCH ×2 (10:03→21:32)
[2016-06-22 10:28] LABS: METAMYELOCYTE 6 % (0-2)
[2016-06-22 10:29] LABS: ANISOCYTOSIS 2+; HYPOCHROMIA 3+; MICROCYTOSIS 1+; TARGET CELLS 2+
[2016-06-22 10:30] LABS: OVALOCYTES 1+; PLATELET ESTIMATE ADEQUATE (NORMAL); TEAR DROP CELLS 1+
--- NOTE | 2016-06-22 12:53 | PN ---
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, Physician History of Present Illness: pulmonary pt suddenly became hypotensive,hypoxic while being turned on side ,disimpacted, rapid response called pt place on bipap 100% with improvement o2 sat. pt is febrile 103.1 - Current Medication List Current Medications: Active Medications Acetaminophen (Tylenol -) 650 mg PO Q4H PRN PRN Reason: FEVER OR PAIN Last Admin: 06/21/16 21:10 Dose: 650 mg Al Hydroxide/Mg Hydroxide (Mylanta Oral Suspension -) 30 ml PO Q8H PRN PRN Reason: INDIGESTION Last Admin: 06/21/16 23:49 Dose: 30 ml Albuterol Sulfate (Ventolin 0.083% Nebulizer Soln -) 1 amp NEB Q4H PRN PRN Reason: SHORT OF BREATH/WHEEZING Last Admin: 06/22/16 10:29 Dose: 1 amp Aspirin (Asa -) 81 mg PO DAILY [facility] Last Admin: 06/22/16 10:01 Dose: 81 mg Atorvastatin Calcium (Lipitor -) 80 mg PO HS [facility] Last Admin: 06/21/16 21:10 Dose: 80 mg Budesonide/Formoterol Fumarate (Symbicort 160/4.5mcg -) 2 puff IH BID [facility] Last Admin: 06/22/16 10:03 Dose: 2 puff Docusate Sodium (Colace -) 100 mg PO DAILY [facility] Last Admin: 06/22/16 10:02 Dose: 100 mg Enalapril Maleate (Vasotec -) 5 mg PO BID [facility] Last Admin: 06/22/16 10:02 Dose: 5 mg Enoxaparin Sodium (Lovenox -) 40 mg SQ DAILY [facility] Last Admin: 06/22/16 10:00 Dose: 40 mg Hydralazine HCl (Apresoline -) 10 mg PO TID [facility] Last Admin: 06/22/16 06:56 Dose: Not Given Ibuprofen (Motrin -) 400 mg PO Q6H PRN PRN Reason: PAIN Last Admin: 06/21/16 06:23 Dose: 400 mg Insulin Aspart (Novolog Vial Sliding Scale -) 1 vial SQ TIDAC [facility] PRN Reason: Protocol Last Admin: 06/22/16 12:03 Dose: 2 units Methylprednisolone Sodium Succinate (Solu-Medrol -) 40 mg IVPB Q8H-IV [facility] Last Admin: 06/22/16 10:01 Dose: 40 mg Nitroglycerin (Nitrostat -) 0.4 mg SL Q5M PRN PRN Reason: FOR CHEST PAIN Last Admin: 06/20/16 11:35 Dose: 0.4 mg Pantoprazole Sodium (Protonix -) 40 mg PO DAILY [facility] Last Admin: 06/22/16 10:01 Dose: 40 mg Tiotropium [place] (Spiriva -) 1 puff IH DAILY [facility] Last Admin: 06/22/16 10:02 Dose: 1 puff Verapamil HCl (Calan Sr -) 180 mg PO DAILY [facility] Last Admin: 06/22/16 10:01 Dose: 180 mg - Objective Vital Signs: Vital Signs Temperature 98.9 F 06/22/16 08:36 Pulse Rate 121 H 06/22/16 09:46 Respiratory Rate 28 H 06/22/16 08:36 Blood Pressure 152/80 06/22/16 08:36 O2 Sat by Pulse Oximetry (%) 97 06/22/16 09:46 Constitutional: Yes: Well Nourished, Other (agitated) Eyes: Yes: WNL HENT: Yes: WNL Neck: Yes: Supple Cardiovascular: Yes: Regular Rate and Rhythm, S1, S2 Respiratory: Yes: Rhonchi Gastrointestinal: Yes: Normal Bowel Sounds, Soft Extremities: Yes: WNL Edema: No Labs: CBC, BMP 06/22/16 08:50 06/22/16 08:50 INR, PTT INR 1.02 (0.82-1.09) 06/09/16 05:05 Laboratory Tests 06/22/16 06:16 ABG pH 7.42 ABG pCO2 at Pt Temp 49.5 H ABG pO2 at Pt Temp 78.3 ABG HCO3 31.8 H ABG O2 Sat (Measured) 95.9 Oxygen Flow Rate [address] Vent Rate 16 Pressure Support Vent 12/ Problem List - Problems (1) Aortic stenosis Code(s): I35.0 - NONRHEUMATIC AORTIC (VALVE) STENOSIS (2) History of PSVT (paroxysmal supraventricular tachycardia) Code(s): Z86.79 - PERSONAL HISTORY OF OTHER DISEASES OF THE CIRCULATORY SYSTEM (3) NSTEMI (non-ST elevated myocardial infarction) Code(s): I21.4 - NON-ST ELEVATION (NSTEMI) MYOCARDIAL INFARCTION (4) Respiratory failure Code(s): J96.90 - RESPIRATORY FAILURE, UNSP, UNSP W HYPOXIA OR HYPERCAPNIA Qualifiers: Chronicity: acute Respiratory failure complication: hypoxia and hypercapnia Qualified Code(s): J96.01 - Acute respiratory failure with hypoxia (5) Pulmonary hypertension Code(s): I27.2 - OTHER SECONDARY PULMONARY HYPERTENSION (6) Pulmonary nodules Code(s): R91.8 - OTHER NONSPECIFIC ABNORMAL FINDING OF LUNG FIELD (7) COPD (chronic obstructive pulmonary disease) Code(s): J44.9 - CHRONIC OBSTRUCTIVE PULMONARY DISEASE, UNSPECIFIED (8) History of cigarette smoking Code(s): Z87.891 - PERSONAL HISTORY OF NICOTINE DEPENDENCE (9) Acute on chronic respiratory failure with hypoxia and hypercapnia Code(s): J96.21 - ACUTE AND CHRONIC RESPIRATORY FAILURE WITH HYPOXIA J96.22 - ACUTE AND CHRONIC RESPIRATORY FAILURE WITH HYPERCAPNIA Assessment/Plan ASSESSMENT AND PLAN: Acute on Chronic Hypoxic and Hypercapneic Respiratory Failure likely Sepsis ? 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
--- NOTE | 2016-06-22 13:01 | RAPID ---
Physical Examination Vital Signs: Vital Signs Temperature 98.9 F 06/22/16 08:36 Pulse Rate 121 H 06/22/16 09:46 Respiratory Rate 28 H 06/22/16 08:36 Blood Pressure 152/80 06/22/16 08:36 O2 Sat by Pulse Oximetry (%) 97 06/22/16 09:46 Findings/Remarks: rapid response called by RN as patient was hypotensive tachycardic and desaturating with altered mental status. PE: HR 116 BP 125/74 Sat 92% on BiPAP Gen: lethargic CV: Tachycardic no pedal edema Resp: coarse breath sounds bilaterally with diffuse wheezing in all lung rogers ABD: soft nt/nd vitals currently stable patient remains lethargic CUrrently being transported STAT to ICU ICU team aware further work up per ICU team CXR EKG ABG Low threshold for intubation Labs: CBC, BMP 06/22/16 08:50 06/22/16 08:50
--- NOTE | 2016-06-22 13:29 | PN ---
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, Physician History of Present Illness: patient suddenly became sob resop failure constipated manually disimpacted intubated - Current Medication List Current Medications: Active Medications Acetaminophen (Tylenol -) 650 mg PO Q4H PRN PRN Reason: FEVER OR PAIN Last Admin: 06/21/16 21:10 Dose: 650 mg Al Hydroxide/Mg Hydroxide (Mylanta Oral Suspension -) 30 ml PO Q8H PRN PRN Reason: INDIGESTION Last Admin: 06/21/16 23:49 Dose: 30 ml Albuterol Sulfate (Ventolin 0.083% Nebulizer Soln -) 1 amp NEB Q4H PRN PRN Reason: SHORT OF BREATH/WHEEZING Last Admin: 06/22/16 10:29 Dose: 1 amp Aspirin (Asa -) 81 mg PO DAILY [facility] Last Admin: 06/22/16 10:01 Dose: 81 mg Atorvastatin Calcium (Lipitor -) 80 mg PO HS [facility] Last Admin: 06/21/16 21:10 Dose: 80 mg Budesonide/Formoterol Fumarate (Symbicort 160/4.5mcg -) 2 puff IH BID [facility] Last Admin: 06/22/16 10:03 Dose: 2 puff Docusate Sodium (Colace -) 100 mg PO DAILY [facility] Last Admin: 06/22/16 10:02 Dose: 100 mg Enalapril Maleate (Vasotec -) 5 mg PO BID [facility] Last Admin: 06/22/16 10:02 Dose: 5 mg Enoxaparin Sodium (Lovenox -) 40 mg SQ DAILY [facility] Last Admin: 06/22/16 10:00 Dose: 40 mg Hydralazine HCl (Apresoline -) 10 mg PO TID [facility] Last Admin: 06/22/16 06:56 Dose: Not Given Ibuprofen (Motrin -) 400 mg PO Q6H PRN PRN Reason: PAIN Last Admin: 06/21/16 06:23 Dose: 400 mg Insulin Aspart (Novolog Vial Sliding Scale -) 1 vial SQ TIDAC [facility] PRN Reason: Protocol Last Admin: 06/22/16 12:03 Dose: 2 units Methylprednisolone Sodium Succinate (Solu-Medrol -) 40 mg IVPB Q8H-IV [facility] Last Admin: 06/22/16 10:01 Dose: 40 mg Nitroglycerin (Nitrostat -) 0.4 mg SL Q5M PRN PRN Reason: FOR CHEST PAIN Last Admin: 06/20/16 11:35 Dose: 0.4 mg Pantoprazole Sodium (Protonix -) 40 mg PO DAILY [facility] Last Admin: 06/22/16 10:01 Dose: 40 mg Tiotropium [place] (Spiriva -) 1 puff IH DAILY [facility] Last Admin: 06/22/16 10:02 Dose: 1 puff Verapamil HCl (Calan Sr -) 180 mg PO DAILY [facility] Last Admin: 06/22/16 10:01 Dose: 180 mg - Objective Vital Signs: Vital Signs Temperature 98.9 F 06/22/16 08:36 Pulse Rate 121 H 06/22/16 09:46 Respiratory Rate 28 H 06/22/16 08:36 Blood Pressure 152/80 06/22/16 08:36 O2 Sat by Pulse Oximetry (%) 97 06/22/16 09:46 Constitutional: Yes: Other Eyes: Yes: Conjunctiva Clear Neck: Yes: Supple Cardiovascular: Yes: Tachycardia Respiratory: Yes: Intubated, Mechanically Ventilated, Poor Air Entry, Rhonchi, Other (crack;es) Gastrointestinal: Yes: Normal Bowel Sounds, Soft Musculoskeletal: Yes: WNL Extremities: Yes: WNL Integumentary: Yes: WNL Neurological: Yes: Other Labs: CBC, BMP 06/22/16 08:50 06/22/16 08:50 INR, PTT INR 1.02 (0.82-1.09) 06/09/16 05:05 - ....Imaging Chest X-ray: Report Reviewed, Image Reviewed Assessment/Plan Problem List - Problems (1) Aortic stenosis Code(s): I35.0 - NONRHEUMATIC AORTIC (VALVE) STENOSIS (2) History of PSVT (paroxysmal supraventricular tachycardia) Code(s): Z86.79 - PERSONAL HISTORY OF OTHER DISEASES OF THE CIRCULATORY SYSTEM (3) NSTEMI (non-ST elevated myocardial infarction) Code(s): I21.4 - NON-ST ELEVATION (NSTEMI) MYOCARDIAL INFARCTION (4) Respiratory failure Code(s): J96.90 - RESPIRATORY FAILURE, UNSP, UNSP W HYPOXIA OR HYPERCAPNIA Qualifiers: Chronicity: acute Respiratory failure complication: hypoxia and hypercapnia Qualified Code(s): J96.01 - Acute respiratory failure with hypoxia (5) Pulmonary hypertension Code(s): I27.2 - OTHER SECONDARY PULMONARY HYPERTENSION (6) Pulmonary nodules Code(s): R91.8 - OTHER NONSPECIFIC ABNORMAL FINDING OF LUNG FIELD (7) COPD (chronic obstructive pulmonary disease) Code(s): J44.9 - CHRONIC OBSTRUCTIVE PULMONARY DISEASE, UNSPECIFIED (8) History of cigarette smoking Code(s): Z87.891 - PERSONAL HISTORY OF NICOTINE DEPENDENCE (9) Acute on chronic respiratory failure with hypoxia and hypercapnia Code(s): J96.21 - ACUTE AND CHRONIC RESPIRATORY FAILURE WITH HYPOXIA J96.22 - ACUTE AND CHRONIC RESPIRATORY FAILURE WITH HYPERCAPNIAEPENDENCE +Troponins/Acute NSTEMI Lactic Acidosis h/o Breast Ca 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
[2016-06-22] MEDS ORDERED: LORazepam 0.5 MG TABLET PO PRN (14:22)
--- NOTE | 2016-06-22 14:22 | PN ---
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 (short form) - Note 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: staff report that patient has been displaying anxiety and restlessness. was given Xanax yesterday. Patient appears some what sedated at this time. REC Ativan 0.5mg po bid prn.
[2016-06-22] MEDS ORDERED: VANCOMYCIN 1,250 MG in DEXTROSE 5%-WATER - 250 ML IVPB ONE (14:30)
--- NOTE | 2016-06-22 14:50 | PN ---
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, Physician History of Present Illness: seen and examined this am approx 8:30am. pt was awake, but confused, agitated. as per RN she was up all night confused and agitated. currently in wrist restraints. ICU re-evaluation was called. ABG reviewed no sig change. labs were ordered. Pt did receive ambien overnight. - Current Medication List Current Medications: Active Medications Acetaminophen (Tylenol -) 650 mg PO Q4H PRN PRN Reason: FEVER OR PAIN Last Admin: 06/21/16 21:10 Dose: 650 mg Al Hydroxide/Mg Hydroxide (Mylanta Oral Suspension -) 30 ml PO Q8H PRN PRN Reason: INDIGESTION Last Admin: 06/21/16 23:49 Dose: 30 ml Albuterol Sulfate (Ventolin 0.083% Nebulizer Soln -) 1 amp NEB Q4H PRN PRN Reason: SHORT OF BREATH/WHEEZING Last Admin: 06/22/16 10:29 Dose: 1 amp Aspirin (Asa -) 81 mg PO DAILY [facility] Last Admin: 06/22/16 10:01 Dose: 81 mg Atorvastatin Calcium (Lipitor -) 80 mg PO HS [facility] Last Admin: 06/21/16 21:10 Dose: 80 mg Budesonide/Formoterol Fumarate (Symbicort 160/4.5mcg -) 2 puff IH BID [facility] Last Admin: 06/22/16 10:03 Dose: 2 puff Docusate Sodium (Colace -) 100 mg PO DAILY [facility] Last Admin: 06/22/16 10:02 Dose: 100 mg Enalapril Maleate (Vasotec -) 5 mg PO BID [facility] Last Admin: 06/22/16 10:02 Dose: 5 mg Enoxaparin Sodium (Lovenox -) 40 mg SQ DAILY [facility] Last Admin: 06/22/16 10:00 Dose: 40 mg Hydralazine HCl (Apresoline -) 10 mg PO TID [facility] Last Admin: 06/22/16 06:56 Dose: Not Given Vancomycin HCl 1,250 mg/ (Dextrose) 250 mls @ 125 mls/hr IVPB ONCE ONE PRN Reason: Protocol Stop: 06/22/16 16:29 Piperacillin Sod/Tazobactam Sod (Zosyn 3.375gm Ivpb (Pre-Docked)) 50 mls @ 100 mls/hr IVPB Q8H-IV [facility] PRN Reason: Protocol Ibuprofen (Motrin -) 400 mg PO Q6H PRN PRN Reason: PAIN Last Admin: 06/21/16 06:23 Dose: 400 mg Insulin Aspart (Novolog Vial Sliding Scale -) 1 vial SQ TIDAC [facility] PRN Reason: Protocol Last Admin: 06/22/16 12:03 Dose: 2 units Lorazepam (Ativan -) 0.5 mg PO BID PRN PRN Reason: ANXIETY Methylprednisolone Sodium Succinate (Solu-Medrol -) 40 mg IVPB Q8H-IV [facility] Last Admin: 06/22/16 10:01 Dose: 40 mg Nitroglycerin (Nitrostat -) 0.4 mg SL Q5M PRN PRN Reason: FOR CHEST PAIN Last Admin: 06/20/16 11:35 Dose: 0.4 mg Pantoprazole Sodium (Protonix -) 40 mg PO DAILY [facility] Last Admin: 06/22/16 10:01 Dose: 40 mg Tiotropium [place] (Spiriva -) 1 puff IH DAILY [facility] Last Admin: 06/22/16 10:02 Dose: 1 puff Verapamil HCl (Calan Sr -) 180 mg PO DAILY [facility] Last Admin: 06/22/16 10:01 Dose: 180 mg - Objective Vital Signs: Vital Signs Temperature 103.5 F H 06/22/16 14:40 Pulse Rate 106 H 06/22/16 14:40 Respiratory Rate 26 H 06/22/16 14:40 Blood Pressure 95/46 06/22/16 14:40 O2 Sat by Pulse Oximetry (%) 97 06/22/16 09:46 Constitutional: Yes: Anxious, Moderate Distress, Other (agitated) Eyes: Yes: Conjunctiva Clear, EOM Intact HENT: Yes: Atraumatic, Normocephalic Neck: Yes: Supple, Trachea Midline Cardiovascular: Yes: Tachycardia, S1, S2. No: Regular Rate and Rhythm, Bradycardia, Pulse Irregular, Bruit, JVD, Gallop, Murmur, Rub, S3, S4, Varicosities Respiratory: Yes: On BiPap, Rhonchi, Tachypnea, Wheezes. No: Rales Gastrointestinal: Yes: Normal Bowel Sounds, Soft. No: Distention, Tenderness Extremities: Yes: WNL Edema: No Peripheral Pulses WNL: Yes Peripheral Pulses: Left Doralis Pedis: 2+, Right Dorsalis Pedis: 2+ Integumentary: Yes: WNL Neurological: Yes: Alert, Confusion Psychiatric: Yes: Agitated Labs: CBC, BMP 06/22/16 08:50 06/22/16 08:50 INR, PTT INR 1.02 (0.82-1.09) 06/09/16 05:05 - ....Imaging Chest X-ray: Report Reviewed, Image Reviewed EKG: Report Reviewed, Image Reviewed Other: Report Reviewed, Image Reviewed (tele-sinus tach, pvcs) Assessment/Plan Influenza with acute respiratory failure, now with difficulty weaning Anemia NSTEMI History breast cancer, lung mass with negative bx COPD, chronic with chronic hypoxemia Mild PSVT Chronic diastolic CHF Carotid stenosis s/p CEA Acute delirium/confusion/agitation REC: Delirium-agitation and confusion -unclear etiology -ABG reviewed, hypoxic with po2 of 70 on 40% FIO2 BIPAP, pCO2 at baseline -of note pt has had similar episodes on prior admissions, 1st a few years ago and no etiology was determined, then on a recent admission when it was presumed to be due to benzo withdrawal. May be stimulated by steroids as well as ambien last night and xanax new infiltrate on Cxr, fever -pt transferred to ICU -Head CT when possible -repeat ABG -check labs -supp O2 SOB-Acute respiratory failure requiring intubation, + influenza-- now extubated , recurrent PNA -transfer to ICU -bipap -may require re-intubation NSTEMI-stable, recurrent chest pain yesterday -known underlying CAD with suspected chronic angina -Cont ASA 81mg daily, lipitor, enalapril -has refused cath -Repeat echo w/ normal LV fxn -NTG SL prn for chest pain PSVT-adequately controlled -Cont Verapamil Aortic stenosis-mild -outpatient f/up Carotid stenosis-h/o cea -outpatient f/up
[2016-06-22] MEDS: PIPERACILLIN/TAZOB 3.375 GM 50 ML IVPB SCH ×2 (15:00→18:16)
[2016-06-22] MEDS ORDERED: IPRATROPIUM BR 0.02% 0.5 MG/2.5 ML VIAL.NEB. NEB ONE (15:11)
--- NOTE | 2016-06-22 15:29 | PN ---
Physical Exam: SUBJECTIVE: Patient seen and examined Patient was transferred from floor after rapid response for fall in saturation and fall in bp. Patient was started on bipap and transferred to ICU In ICU Patient was on BIPAP 100 % fio2 with spo2 100 Patient has decrease air entry b/l. with diffuse wheez and ronchi cxr show infiltrate in right lower quadrant fever of 103 will get blood culture, urine culture, sputum culture Patient on zosyn and vanco, ID on case OBJECTIVE: Vital Signs Period Temp Pulse Resp BP Sys/Rasheed Pulse Ox Last 24 Hr 97.4 F-103.5 F 80-138 18-30 95-155/46-80 95-98 GENERAL: ams improved, patient drowsy but arousable, when wakes up follow commands like move legs, lift arm. HEAD: Normal with no signs of trauma. EYES: PERRL, NECK: Trachea midline, full range of motion, supple. LUNGS: b/l decrease air entry, diffuse wheez, rales on right side, using accessory muscle but after steroid her wheezing decreased, air entry improved. and no more accessory muscle use HEART: s1s2 normal tachy ABDOMEN: Soft, nontender, nondistended, normoactive bowel sounds, no guarding. EXTREMITIES: 2+ pulses, warm, well-perfused, no edema. SKIN: Warm, dry, Laboratory Results - last 24 hr 06/21/16 06/22/16 06/22/16 15:40 06:04 06:16 WBC RBC Hgb Hct MCV MCHC RDW Plt Count MPV Neutrophils % Lymphocytes % Monocytes % Band Neutrophils Metamyelocytes Myelocytes Differential Comment Platelet Estimate Hypochromic-Microcytic Basophilic Stippling Anisocytosis Microcytosis Macrocytosis Target Cells Tear Drop Cells Ovalocytes Morphology Comment Puncture Site Right brachial ABG pH 7.42 ABG pCO2 at Pt Temp 49.5 H ABG pO2 at Pt Temp 78.3 ABG HCO3 31.8 H ABG O2 Sat (Measured) 95.9 ABG O2 Content 11.8 L ABG Base Excess 7.0 H Rafi Test Positive O2 Delivery Device Bipap Oxygen Flow Rate [address] Vent Rate 16 Pressure Support Vent 12/5 Sodium Potassium Chloride Carbon Dioxide Anion Gap BUN Creatinine Creat Clearance w eGFR POC Glucometer 255 215 Random Glucose Calcium Magnesium Total Bilirubin AST ALT Alkaline Phosphatase Total Protein Albumin 06/22/16 06/22/16 06/22/16 08:30 08:50 08:50 WBC 10.6 H RBC 3.92 Hgb 9.1 L D Hct 30.2 L MCV 77.2 L MCHC 30.0 L RDW 28.1 H Plt Count 162 D MPV 8.9 Neutrophils % 75.0 D Lymphocytes % 6.0 L D Monocytes % 2.0 L Band Neutrophils 10.0 D Metamyelocytes 6 H Myelocytes 1 Differential Comment Manual diff done Platelet Estimate Adequate Hypochromic-Microcytic 3+ Basophilic Stippling 1+ Anisocytosis 2+ Microcytosis 1+ Macrocytosis 1+ Target Cells 2+ Tear Drop Cells 1+ Ovalocytes 1+ Morphology Comment Slide scanned Puncture Site ABG pH ABG pCO2 at Pt Temp ABG pO2 at Pt Temp ABG HCO3 ABG O2 Sat (Measured) ABG O2 Content ABG Base Excess Rafi Test O2 Delivery Device Oxygen Flow Rate Vent Mode Vent Rate Pressure Support Vent Sodium 144 Potassium 4.4 Chloride 101 Carbon Dioxide 36 H Anion Gap 7 L BUN 26 H Creatinine 0.6 D Creat Clearance w eGFR > 60 POC Glucometer 256 Random Glucose 229 H D Calcium 9.5 Magnesium 2.3 Total Bilirubin 0.4 D AST 48 H D ALT 29 D Alkaline Phosphatase 67 D Total Protein 6.1 L Albumin 2.3 L 06/22/16 11:53 WBC RBC Hgb Hct MCV MCHC RDW Plt Count MPV Neutrophils % Lymphocytes % Monocytes % Band Neutrophils Metamyelocytes Myelocytes Differential Comment Platelet Estimate Hypochromic-Microcytic Basophilic Stippling Anisocytosis Microcytosis Macrocytosis Target Cells Tear Drop Cells Ovalocytes Morphology Comment Puncture Site ABG pH ABG pCO2 at Pt Temp ABG pO2 at Pt Temp ABG HCO3 ABG O2 Sat (Measured) ABG O2 Content ABG Base Excess Rafi Test O2 Delivery Device Oxygen Flow Rate Vent Mode Vent Rate Pressure Support Vent Sodium Potassium Chloride Carbon Dioxide Anion Gap BUN Creatinine Creat Clearance w eGFR POC Glucometer 217 Random Glucose Calcium Magnesium Total Bilirubin AST ALT Alkaline Phosphatase Total Protein Albumin Active Medications Generic Name Dose Route Start Last Admin Trade Name Freq PRN Reason Stop Dose Admin Acetaminophen 650 mg 06/15/16 19:22 06/21/16 21:10 Tylenol - PO 650 mg Q4H PRN Administration FEVER OR PAIN Al Hydroxide/Mg Hydroxide 30 ml 06/21/16 23:41 06/21/16 23:49 Mylanta Oral Suspension - PO 30 ml Q8H PRN Administration INDIGESTION Albuterol Sulfate 1 amp 06/21/16 12:20 06/22/16 10:29 Ventolin 0.083% Nebulizer Soln - NEB 1 amp Q4H PRN Administration SHORT OF BREATH/WHEEZING Aspirin 81 mg 06/16/16 10:00 06/22/16 10:01 Asa - PO 81 mg DAILY YEISON Administration Atorvastatin Calcium 80 mg 06/15/16 22:00 06/21/16 21:10 Lipitor - PO 80 mg HS YEISON Administration Budesonide/Formoterol Fumarate 2 puff 06/21/16 12:30 06/22/16 10:03 Symbicort 160/4.5mcg - IH 2 puff BID YEISON Administration Docusate Sodium 100 mg 06/16/16 10:00 06/22/16 10:02 Colace - PO 100 mg DAILY YEISON Administration Enalapril Maleate 5 mg 06/15/16 22:00 06/22/16 10:02 Vasotec - PO 5 mg BID YEISON Administration Enoxaparin Sodium 40 mg 06/16/16 10:00 06/22/16 10:00 Lovenox - SQ 40 mg DAILY YEISON Administration Hydralazine HCl 10 mg 06/15/16 22:00 06/22/16 06:56 Apresoline - PO Not Given TID YEISON Vancomycin HCl 1,250 mg/ 250 mls @ 125 mls/hr 06/22/16 14:30 Dextrose IVPB 06/22/16 16:29 ONCE ONE Protocol Piperacillin Sod/Tazobactam Sod 50 mls @ 100 mls/hr 06/22/16 13:30 Zosyn 3.375gm Ivpb (Pre-Docked) IVPB Q8H-IV YEISON Protocol Ibuprofen 400 mg 06/19/16 19:17 06/21/16 06:23 Motrin - PO 400 mg Q6H PRN Administration PAIN Insulin Aspart 1 vial 06/16/16 07:00 06/22/16 12:03 Novolog Vial Sliding Scale - SQ 2 units TIDAC YEISON Administration Protocol Lorazepam 0.5 mg 06/22/16 14:22 Ativan - PO BID PRN ANXIETY Methylprednisolone Sodium Succinate 60 mg 06/22/16 15:10 Solu-Medrol - IVPB QIDR YEISON Nitroglycerin 0.4 mg 06/20/16 11:09 06/20/16 11:35 Nitrostat - SL 0.4 mg Q5M PRN Administration FOR CHEST PAIN Pantoprazole Sodium 40 mg 06/16/16 10:00 06/22/16 10:01 Protonix - PO 40 mg DAILY YEISON Administration Tiotropium [place] 1 puff 06/21/16 12:30 06/22/16 10:02 Spiriva - IH 1 puff DAILY YEISON Administration Verapamil HCl 180 mg 06/19/16 10:00 06/22/16 10:01 Calan Sr - PO 180 mg DAILY YEISON Administration ABG Results ABG pH 7.32 (7.35-7.45) L 06/22/16 15:10 ABG pCO2 at Pt Temp 63.6 mmHg (35-45) H* D 06/22/16 15:10 ABG pO2 at Pt Temp 90.5 mmHg (70-100) 06/22/16 15:10 ABG HCO3 31.8 meq/L (22-26) H 06/22/16 15:10 ABG O2 Sat (Measured) 96.2 % (90-98.9) 06/22/16 15:10 ABG O2 Content 12.0 % vol (15-22) L 06/22/16 15:10 ABG Base Excess 5.2 meq/l (-2-2) H 06/22/16 15:10 Microbiology 06/08/16 13:45 Urine - Urine Mahoney Urine Culture - Final Yeast Like Organism 06/04/16 07:10 Sputum - Endotrachea Suction/Ventilator Gram Stain - Final 06/04/16 07:10 Sputum - Endotrachea Suction/Ventilator Sputum Culture - Final NORMAL RESPIRATORY LAKSHMI 05/30/16 23:30 Blood - Peripheral Venous Blood Culture - Final NO GROWTH AFTER 5 DAYS INCUBATION 05/30/16 21:30 Blood - Peripheral Venous Blood Culture - Final NO GROWTH AFTER 5 DAYS INCUBATION 05/30/16 23:30 Sputum - Endotracheal Suction W/O Vent Gram Stain - Final 05/30/16 23:30 Sputum - Endotracheal Suction W/O Vent Sputum Culture - Final NORMAL RESPIRATORY LAKSHMI 05/30/16 16:54 Urine - Urine - Catheterized Urine Culture - Final NO GROWTH OBTAINED 05/30/16 23:30 Nasopharyngeal Swab Influenza Types A,B Antigen (ANDREW) - Final 05/30/16 23:30 Nasopharyngeal Swab - Final ASSESSMENT/PLAN: acute hypercapneic respiratory failure due to aspiration pneumonia on bipap I 15, e 7, fio2 40 keep spo2 over 90 Nebulizers YEISON and [place] on solumedrom 60 qid on zosyn and vanco cxr shows right side infiltrate follow blood, urine and sputum culture abg ph 7.32, pco2 63.6 po2 90.5 spo2 96.2 follow abg in morning ID on case will hold spiiva and albuterol. will start on duoneb neb q6h standing completed a course of tamiflue Shock could be from aspiration pneumonia follow culture on iV fluid NS Follow lactic acid monitor vitals monitor intake/ output antibiotics as per ID hold blood pressure medication as patient has low bp altered mental status copuld be from metabolic encephalopathy improved on bip H/O HTN hold enalapril 5 bid and hold hydralazine 10 tid for low bp h/o copd on duoneb on solumedrol 60 q6h DM on sliding scale novalog influenza positive completed a course of tamiflue Microcytic anemia HGB stable Monitor H&H FEN IVF NS follow in am NPo for now Prophylaxis DVT: lovenox GI: PPI iv Code status - Full code dispo : admit in icu Visit type - Emergency Visit Emergency Visit: Yes ED Registration Date: 05/30/16 Care time: The patient presented to the Emergency Department on the above date and was hospitalized for further evaluation of their emergent condition. - New Patient This patient is new to me today: No - Critical Care Critical Care patient: Yes Total Critical Care Time (in minutes): 45 Critical Care Statement: The care of this patient involved high complexity decision making to prevent further life threatening deterioration of the patient 's condition and/or to evalute & treat vital organ system(s) failure or risk of failure.
[2016-06-22 15:30] LABS: ARTERIAL BLD GAS O2 SATURATION 96.2 % (90-98.9); ARTERIAL BLOOD GAS BASE EXCESS 5.2 meq/l (-2-2); ARTERIAL BLOOD GAS HCO3 31.8 meq/L (22-26); ARTERIAL BLOOD GAS PO2 90.5 mmHg (70-100); ARTERIAL BLOOD GAS pH 7.32 (7.35-7.45)
[2016-06-22 15:36] LABS: ALLENS TEST POSITIVE; ART PUNCT SITE RIGHT RADIAL; LPM/O2% 100%; PT. ON O2? YES
[2016-06-22 15:37] LABS: VENT RATE 16
[2016-06-22] MEDS ORDERED: ALBUTEROL SO4 0.083% IH SOL 2.5 MG/3 ML VIAL.NEB. NEB PRN (16:09)
[2016-06-22] MEDS ORDERED: ACETAMINOPHEN 1000 MG/100 ML VIAL (NON FORMULARY) IVPB ONE (16:13)
[2016-06-22] MEDS ORDERED: SODIUM CHLORIDE 1,000 ML IV SCH (16:30)
[2016-06-22] MEDS: ALBUTEROL SO4 2.5/IPRATROPIUM 0.5 INH SOL 3 ML VIAL.NEB. NEB SCH (18:51)
--- NOTE | 2016-06-22 19:35 | PN ---
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, Physician History of Present Illness: Patient was transferred from floor after rapid response for fall in saturation and HYPOTENSION In ICU on BIPAP 100 % fio2 with spo2 100 f - Current Medication List Current Medications: Active Medications Acetaminophen (Tylenol -) 650 mg PO Q4H PRN PRN Reason: FEVER OR PAIN Last Admin: 06/21/16 21:10 Dose: 650 mg Al Hydroxide/Mg Hydroxide (Mylanta Oral Suspension -) 30 ml PO Q8H PRN PRN Reason: INDIGESTION Last Admin: 06/21/16 23:49 Dose: 30 ml Albuterol Sulfate (Ventolin 0.083% Nebulizer Soln -) 1 amp NEB Q4H PRN PRN Reason: SHORT OF BREATH/WHEEZING Albuterol/Ipratropium (Duoneb -) 1 amp NEB QIDR [facility] Last Admin: 06/22/16 18:51 Dose: 1 amp Aspirin (Asa -) 81 mg PO DAILY [facility] Last Admin: 06/22/16 10:01 Dose: 81 mg Atorvastatin Calcium (Lipitor -) 80 mg PO HS [facility] Last Admin: 06/21/16 21:10 Dose: 80 mg Budesonide/Formoterol Fumarate (Symbicort 160/4.5mcg -) 2 puff IH BID [facility] Last Admin: 06/22/16 10:03 Dose: 2 puff Docusate Sodium (Colace -) 100 mg PO DAILY [facility] Last Admin: 06/22/16 10:02 Dose: 100 mg Enalapril Maleate (Vasotec -) 5 mg PO BID [facility] Last Admin: 06/22/16 10:02 Dose: 5 mg Enoxaparin Sodium (Lovenox -) 40 mg SQ DAILY [facility] Last Admin: 06/22/16 10:00 Dose: 40 mg Hydralazine HCl (Apresoline -) 10 mg PO TID [facility] Last Admin: 06/22/16 14:00 Dose: Not Given Piperacillin Sod/Tazobactam Sod (Zosyn 3.375gm Ivpb (Pre-Docked)) 50 mls @ 100 mls/hr IVPB Q8H-IV YEISON PRN Reason: Protocol Last Admin: 06/22/16 18:16 Dose: 100 mls/hr Sodium Chloride (Normal Saline -) 1,000 mls @ 42 mls/hr IV ASDIR [facility] Last Admin: 06/22/16 18:14 Dose: 42 mls/hr Ibuprofen (Motrin -) 400 mg PO Q6H PRN PRN Reason: PAIN Last Admin: 06/21/16 06:23 Dose: 400 mg Insulin Aspart (Novolog Vial Sliding Scale -) 1 vial SQ TIDAC YEISON PRN Reason: Protocol Last Admin: 06/22/16 18:32 Dose: 3 units Lorazepam (Ativan -) 0.5 mg PO BID PRN PRN Reason: ANXIETY Methylprednisolone Sodium Succinate (Solu-Medrol -) 60 mg IVPB QIDR [facility] Last Admin: 06/22/16 18:17 Dose: 60 mg Nitroglycerin (Nitrostat -) 0.4 mg SL Q5M PRN PRN Reason: FOR CHEST PAIN Last Admin: 06/20/16 11:35 Dose: 0.4 mg Pantoprazole Sodium (Protonix 40mg Ivpb (Pre-Docked)) 40 mg IVPB DAILY [facility] Verapamil HCl (Calan Sr -) 180 mg PO DAILY [facility] Last Admin: 06/22/16 10:01 Dose: 180 mg - Objective Vital Signs: Vital Signs Temperature 103.5 F H 06/22/16 14:40 Pulse Rate 106 H 06/22/16 14:40 Respiratory Rate 26 H 06/22/16 14:40 Blood Pressure 95/46 06/22/16 14:40 O2 Sat by Pulse Oximetry (%) 91 L 06/22/16 18:50 Constitutional: Yes: Anxious HENT: Yes: Atraumatic Neck: Yes: Supple Cardiovascular: Yes: Regular Rate and Rhythm Respiratory: Yes: Rhonchi Gastrointestinal: Yes: Normal Bowel Sounds Extremities: Yes: WNL Neurological: Yes: Alert, Oriented Labs: CBC, BMP 06/22/16 08:50 06/22/16 08:50 INR, PTT INR 1.02 (0.82-1.09) 06/09/16 05:05 Problem List - Problems (1) Respiratory failure Assessment/Plan: pt is on bipap/face mask duo nebs if needed ivsteroids...taper Code(s): J96.90 - RESPIRATORY FAILURE, UNSP, UNSP W HYPOXIA OR HYPERCAPNIA Qualifiers: Chronicity: acute Respiratory failure complication: hypoxia and hypercapnia Qualified Code(s): J96.01 - Acute respiratory failure with hypoxia (2) Chronic respiratory failure with hypoxia Assessment/Plan: see above Code(s): J96.11 - CHRONIC RESPIRATORY FAILURE WITH HYPOXIA (3) CAD (coronary artery disease) Assessment/Plan: on meds follow up labs continue current meds Code(s): I25.10 - ATHSCL HEART DISEASE OF [place] CORONARY ARTERY W/O ANG PCTRS (4) COPD (chronic obstructive pulmonary disease) Assessment/Plan: on meds stable Code(s): J44.9 - CHRONIC OBSTRUCTIVE PULMONARY DISEASE, UNSPECIFIED (5) Chronic diastolic CHF (congestive heart failure) Assessment/Plan: stable on meds Code(s): I50.32 - CHRONIC DIASTOLIC (CONGESTIVE) HEART FAILURE (6) HLD (hyperlipidemia) Assessment/Plan: on meds Code(s): E78.5 - HYPERLIPIDEMIA, UNSPECIFIED Qualifiers: Hyperlipidemia type: unspecified Qualified Code(s): E78.5 - Hyperlipidemia, unspecified (7) HTN (hypertension) Assessment/Plan: on meds stable Code(s): I10 - ESSENTIAL (PRIMARY) HYPERTENSION Qualifiers: Hypertension type: essential hypertension Qualified Code(s): I10 - Essential (primary) hypertension (8) History of cigarette smoking Code(s): Z87.891 - PERSONAL HISTORY OF NICOTINE DEPENDENCE (9) Influenza Code(s): J11.1 - FLU DUE TO UNIDENTIFIED INFLUENZA VIRUS W OTH RESP MANIFEST (10) Acute on chronic respiratory failure with hypoxia and hypercapnia Code(s): J96.21 - ACUTE AND CHRONIC RESPIRATORY FAILURE WITH HYPOXIA J96.22 - ACUTE AND CHRONIC RESPIRATORY FAILURE WITH HYPERCAPNIA (11) History of PSVT (paroxysmal supraventricular tachycardia) Code(s): Z86.79 - PERSONAL HISTORY OF OTHER DISEASES OF THE CIRCULATORY SYSTEM Assessment/Plan 1.+Influenza treated 2.Acute respiratory failure IN ICU NOW ON BIPAP RLL INFILTERATE ON ABX AND DUO NEBS duo nebs 3.ANEMIA STABLE 4.NSTEMI 5.History breast cancer, lung mass with negative bx 6.COPD, chronic with chronic hypoxemia 7.chf STABLE PT EVAL CC 30 MIN
[2016-06-22] MEDS ORDERED: HALOPERIDOL LACTATE 5 MG/ML ONE ×2 (21:27→23:53)
[2016-06-22] MEDS ORDERED: HALOPERIDOL LACTATE 5 MG/ML IM ONE ×2 (21:31→23:41)
[2016-06-22] MEDS: ATORVASTATIN CA 80 MG TABLET (FP) PO SCH (21:32)
[2016-06-23] MEDS ORDERED: SUCCINYLCHOLINE CHLORIDE 200 MG/10 ML VIAL ONE (00:06)
[2016-06-23] MEDS ORDERED: PROPOFOL 100 ML ONE ×5 (00:06→23:46)
[2016-06-23] MEDS ORDERED: SODIUM CHLORIDE 500 ML IV STA (00:27)
[2016-06-23] MEDS: ALBUTEROL SO4 2.5/IPRATROPIUM 0.5 INH SOL 3 ML VIAL.NEB. NEB SCH ×5 (00:39→23:15)
[2016-06-23] MEDS: methylPREDNISolone NA SUCC 40 MG/1 ML VIAL IVPB SCH ×5 (00:41→23:54)
[2016-06-23 00:50] LABS: ARTERIAL BLD GAS O2 SATURATION 93.4 % (90-98.9); ARTERIAL BLOOD GAS BASE EXCESS 6.1 meq/l (-2-2); ARTERIAL BLOOD GAS HCO3 30.3 meq/L (22-26); ARTERIAL BLOOD GAS pH 7.45 (7.35-7.45)
[2016-06-23 00:51] LABS: LPM/O2% 40; PT. ON O2? YES; TYPE OF O2 BIPAP
[2016-06-23 00:52] LABS: ARTERIAL BLOOD GAS PO2 65.7 mmHg (70-100); VENT RATE 14; VT/PRESS 15/8
--- NOTE | 2016-06-23 01:05 | PN ---
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 (short form) - Note 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: Pt admitted to ICU after aspiration event during the day. Intubation defered re oxygenation adequate on BiPAP. Overnight pt progressively agitated and delirious. Noted to be tachypneic and in distress on BiPAP 15/6. On exam rhonchorous and desatting off BiPAP. Intubated by anesthesia for extremis and for pulmonary toilet. On Propofol drip for sedation. Sputum thick and purulent. Cultures sent.
--- NOTE | 2016-06-23 01:20 | CONSULT ---
Consult Consult Specialty:: Pulm/CCM - History of Present Illness Chief Complaint: Dyspnea History of Present Illness: 75 lydia with Hx COPD, HTN, Aortic stenosis with recent intubations for hypoxic hypercapneic respiratory failure in the setting of influenza infection and HCAP. Recently extubated and on the floor. Rapid response called earlier for cahnage in mental status and hypoxia 2/2 an aspiration event. She was placed on BiPAP with some improvement so intubation was deferred. On BiPAP 12/5, 100% ABG 7.32, 67, 90 She was transferred to ICU for management. Overnight became febrile altered and tachypnic on BiPAP 15/8. She was intubated by anesthesia. Sputum thick and purulent. Sputum and urine cultures sent. Vent setting AC/VC 20; 360, 50%, 8. - History Source History Provided By: Medical Record - Past Medical History [employer]ODUCTION TE[employer]: Yes: Other (SDH) Cardio/Vascular: Yes: CAD, CHF, HTN, Other (carotid stenosis s/p CEA) Pulmonary: Yes: COPD, O2 Dependent, Other (Lung nodules) - Past Surgical History Past Surgical History: Yes: Carotid Endarterectomy (right), Hysterectomy - Alcohol/Substance Use Hx Alcohol Use: No History of Substance Use: reports: None - Smoking History Smoking history: Current every day smoker Have you smoked in the past 12 months: Yes Aproximately how many cigarettes per day: 2 If you are a former smoker, when did you quit?: pt was smoking a cig prior to ems arrival - Social History Usual Living Arrangement: Alone ADL: Independent History of Recent Travel: No Home Medications - Allergies Allergies/Adverse Reactions: Allergies Allergy/AdvReac Type Severity Reaction Status Date / Time No Known Allergies Allergy Verified 05/30/16 16:46 - Home Medications Home Medications: Ambulatory Orders Cholecalciferol (Vitamin D3) [Vitamin D3 -] 1,000 unit PO DAILY #30 tab Albuterol Sulfate [Proair Hfa -] 2 inh PO BID 06/14/14 Omeprazole 20 mg PO DAILY 09/29/15 Acetaminophen [Tylenol Extra Strength] 500 mg PO QID #90 tablet 02/22/16 Aspirin [ASA -] 81 mg PO DAILY tab.chew 02/22/16 Atorvastatin Ca [Lipitor] 40 mg PO HS tablet 02/22/16 Budesonide/Formeterol Fumarate [SYMBICORT 160/4.5mcg -] 2 puff IH BID inhaler 02/22/16 Lisinopril [Prinivil] 10 mg PO DAILY tablet 02/22/16 Nitroglycerin Sublingual [Nitrostat -] 0.4 mg SL Q5M PRN #30 tab 02/22/16 Ranolazine [Ranexa -] 500 mg PO BID tab 02/22/16 Aclidinium [place] [Tudorza -] 1 puff IH BID #1 inhaler 05/28/16 Amox-Tr/K Cl [Augmentin 875-125mg Tablet -] 1 tab PO BID@0800,1730 #8 tablet Docusate Sodium [Colace -] 100 mg PO TID #90 cap 05/28/16 Furosemide [Lasix -] 40 mg PO DAILY #30 tablet 05/28/16 Guaifenesin [Robitussin -] 10 ml PO Q4H PRN #0 05/28/16 Isosorbide Mononitrate [Imdur -] 30 mg PO DAILY #30 tab MDD 1 05/28/16 Nicotine Patch [Nicoderm Patch -] 14 mg TD DAILY #15 patch 05/28/16 Prednisone [Deltasone -] 30 mg PO DAILY #30 tablet 05/28/16 Roflumilast [Daliresp -] 500 mcg PO DAILY #30 tablet 05/28/16 Verapamil HCl ER [Calan Sr -] 120 mg PO DAILY #30 tab 05/28/16 Family Disease History - Family Disease History Family History: Unremarkable Family Disease History: CA: Father (widespread, unsure of which type), Other: Mother ( of brain hemorrhage after trauma) Review of Systems Unable to obtain ROS, reason: Delirious Physical Exam Vital Signs: Vital Signs Temperature 99.4 F 06/22/16 22:00 Pulse Rate 89 06/22/16 22:00 Respiratory Rate 20 06/23/16 00:15 Blood Pressure 108/59 06/22/16 22:00 O2 Sat by Pulse Oximetry (%) 99 06/23/16 00:29 Constitutional: Yes: Anxious, Mild Distress Eyes: Yes: Conjunctiva Clear HENT: Yes: Atraumatic, Other (Dry MM) Neck: Yes: Supple, Trachea Midline Cardiovascular: Yes: Tachycardia Respiratory: Yes: On BiPap, Rhonchi, Tachypnea Gastrointestinal: Yes: Normal Bowel Sounds, Soft, Other (non tender, non distended) ...Rectal Exam: Yes: Deferred Renal/: Yes: Mahoney Present Musculoskeletal: Yes: WNL Extremities: Yes: WNL (WWP) Edema: No Integumentary: Yes: WNL ...Motor Strength: WNL Psychiatric: Yes: Agitated (Delirious) Labs: CBC, BMP 06/22/16 08:50 06/22/16 08:50 ABG Results ABG pH 7.45 (7.35-7.45) 06/23/16 00:40 ABG pCO2 at Pt Temp 44.3 mmHg (35-45) D 06/23/16 00:40 ABG pO2 at Pt Temp 65.7 mmHg (70-100) L D 06/23/16 00:40 ABG HCO3 30.3 meq/L (22-26) H 06/23/16 00:40 ABG O2 Sat (Measured) 93.4 % (90-98.9) 06/23/16 00:40 ABG O2 Content 12.3 % vol (15-22) L 06/23/16 00:40 ABG Base Excess 6.1 meq/l (-2-2) H 06/23/16 00:40 Imaging - Results Chest X-ray: Report Reviewed (Worsening right basilar consolidation; possible new left UL PNA; possible right pleural effusion) Problem List - Problems (1) Acute on chronic respiratory failure with hypoxia and hypercapnia Code(s): J96.21 - ACUTE AND CHRONIC RESPIRATORY FAILURE WITH HYPOXIA J96.22 - ACUTE AND CHRONIC RESPIRATORY FAILURE WITH HYPERCAPNIA (2) History of PSVT (paroxysmal supraventricular tachycardia) Code(s): Z86.79 - PERSONAL HISTORY OF OTHER DISEASES OF THE CIRCULATORY SYSTEM (3) NSTEMI (non-ST elevated myocardial infarction) Code(s): I21.4 - NON-ST ELEVATION (NSTEMI) MYOCARDIAL INFARCTION (4) Respiratory failure Code(s): J96.90 - RESPIRATORY FAILURE, UNSP, UNSP W HYPOXIA OR HYPERCAPNIA Qualifiers: Chronicity: acute Respiratory failure complication: hypoxia and hypercapnia Qualified Code(s): J96.01 - Acute respiratory failure with hypoxia (5) Chronic respiratory failure with hypoxia Code(s): J96.11 - CHRONIC RESPIRATORY FAILURE WITH HYPOXIA Assessment/Plan [id number] with Hx COPD, HTN, Aortic stenosis and recent intubations for influenza and HCAP now intubated for recurrent hypoxic hypercapnic respiratory failure in setting of m/l aspiration pneumonitis +/- recurrent HCAP Pulm: Hypoxic hypercapneic respiratory failure in setting of HCAP+/- aspiration ; failed BiPAP, now intubated -Lung protective vent -FiO2 for O2 sat>92% -Cont Duonebs -Sedation for vent synchrony -Aspiration precautions -Pulmonary toilet -ABG -CXR ID: Aspiration Pneumonitis +/- HCAP -F/u cultures -cont Zosyn and vanco -Trend WBC and lactate CV: Hypotensive post intubation 2/2 sepsis+/-sedation -Fluid bolus as needed -Hold anti hypertensives -Low threshold for central line and pressors Renal: -Monitor BMP and UOP -Renal dose meds proph Hep Sq/PPI
[2016-06-23] MEDS: PIPERACILLIN/TAZOB 3.375 GM 50 ML IVPB SCH ×3 (01:32→17:17)
[2016-06-23 01:39] LABS: URINE APPEARANCE CLOUDY; URINE BILIRUBIN NEGATIVE (NEGATIVE); URINE COLOR AMBER; URINE GLUCOSE (UA) NEGATIVE (NEGATIVE); URINE KETONE NEGATIVE (NEGATIVE); URINE NITRITE NEGATIVE (NEGATIVE); URINE UROBILINOGEN NEGATIVE E.U./dl (0.2-1.0)
[2016-06-23 02:02] LABS: URINE BLOOD 3+ (NEGATIVE); URINE LEUK ESTERASE 3+ (NEGATIVE); URINE PROTEIN 2+ (NEGATIVE)
[2016-06-23 02:05] LABS: URINE BACTERIA MANY /hpf (NONE SEEN); URINE MUCUS RARE; URINE RBC 315 /hpf (0-3); URINE WBC 457 /hpf (3-5); YEAST MANY
[2016-06-23] MEDS ORDERED: ACETAMINOPHEN 1000 MG/100 ML VIAL (NON FORMULARY) IVPB ONE (02:43)
[2016-06-23] MEDS ORDERED: DEXTROSE 5%-NORMAL SALINE 1,000 ML IV SCH (02:45)
[2016-06-23] MEDS ORDERED: LACTATED RINGERS SOLUTION 1,000 ML IV STA ×2 (03:23→05:22)
[2016-06-23 03:33] LABS: ARTERIAL BLD GAS O2 SATURATION 98.9 % (90-98.9); ARTERIAL BLOOD GAS BASE EXCESS 7.3 meq/l (-2-2); ARTERIAL BLOOD GAS HCO3 31.4 meq/L (22-26)
[2016-06-23 03:34] LABS: ALLENS TEST POSITIVE; ART PUNCT SITE RIGHT RADIAL; PT. ON O2? YES; TYPE OF O2 MECH VENT
[2016-06-23 03:35] LABS: LPM/O2% 50%; MECH. VENT. YES; VENT RATE 20; VT/PRESS 360
[2016-06-23 03:36] LABS: ARTERIAL BLOOD GAS pH 7.47 (7.35-7.45)
[2016-06-23] MEDS: FENTANYL INJECTION 500 MCG in DEXTROSE 5%-WATER - 90 ML IVPB SCH ×2 (05:30→11:30)
[2016-06-23] MEDS: hydrALAZINE HCL 10 MG TABLET PO SCH ×3 (06:15→22:16)
[2016-06-23] MEDS: INSULIN SLIDING SCALE (NOVOLOG) 1 VIAL SQ SCH ×3 (06:15→17:18)
[2016-06-23 06:45] LABS: ALBUMIN 1.5 g/dl (3.4-5.0); ANION GAP 9 (8-16); BILIRUBIN,TOTAL 0.4 mg/dL (0.2-1.0); CALCIUM 8.2 mg/dL (8.5-10.1); CO2 31 mmol/L (21-32); COCKROFT - GAULT 73.2955; CREATININE 0.6 mg/dL (0.55-1.02); GLUCOSE,RANDOM 217 mg/dL (74-106); MAGNESIUM 2.2 mg/dL (1.8-2.4); PHOSPHOROUS 2.5 mg/dL (2.5-4.9); SGOT/AST 47 U/L (15-37); SGPT/ALT 23 U/L (12-78); TOT PROT 4.3 g/dl (6.4-8.2)
[2016-06-23 06:46] LABS: ALK PHOS 58 U/L (45-117)
[2016-06-23 08:00] LABS: MCH 23.7 pg (25.7-33.7); MCHC 30.7 g/dl (32.0-36.0); MEAN CELL VOLUME 77.3 fl (80-96); MEAN PLT VOLUME 8.9 fl (7.5-11.1); PLATELET COUNT 95 K/MM3 (134-434); RDW 28.8 % (11.6-15.6); WHITE BLOOD COUNT 5.5 K/mm3 (4.0-10.0)
--- NOTE | 2016-06-23 08:29 | PN ---
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, Physician Chief Complaint: transferred back to ICU for acute respiratory failure History of Present Illness: sedated on vent - Current Medication List Current Medications: Active Medications Acetaminophen (Tylenol -) 650 mg PO Q4H PRN PRN Reason: FEVER OR PAIN Last Admin: 06/21/16 21:10 Dose: 650 mg Al Hydroxide/Mg Hydroxide (Mylanta Oral Suspension -) 30 ml PO Q8H PRN PRN Reason: INDIGESTION Last Admin: 06/21/16 23:49 Dose: 30 ml Albuterol Sulfate (Ventolin 0.083% Nebulizer Soln -) 1 amp NEB Q4H PRN PRN Reason: SHORT OF BREATH/WHEEZING Albuterol/Ipratropium (Duoneb -) 1 amp NEB QIDR [facility] Last Admin: 06/23/16 06:40 Dose: 1 amp Aspirin (Asa -) 81 mg PO DAILY [facility] Last Admin: 06/22/16 10:01 Dose: 81 mg Atorvastatin Calcium (Lipitor -) 80 mg PO HS [facility] Last Admin: 06/22/16 21:32 Dose: Not Given Budesonide/Formoterol Fumarate (Symbicort 160/4.5mcg -) 2 puff IH BID [facility] Last Admin: 06/22/16 21:32 Dose: Not Given Docusate Sodium (Colace -) 100 mg PO DAILY [facility] Last Admin: 06/22/16 10:02 Dose: 100 mg Enalapril Maleate (Vasotec -) 5 mg PO BID [facility] Last Admin: 06/22/16 21:32 Dose: Not Given Enoxaparin Sodium (Lovenox -) 40 mg SQ DAILY [facility] Last Admin: 06/22/16 10:00 Dose: 40 mg Hydralazine HCl (Apresoline -) 10 mg PO TID [facility] Last Admin: 06/23/16 06:15 Dose: Not Given Piperacillin Sod/Tazobactam Sod (Zosyn 3.375gm Ivpb (Pre-Docked)) 50 mls @ 100 mls/hr IVPB Q8H-IV [facility] PRN Reason: Protocol Last Admin: 06/23/16 01:32 Dose: 100 mls/hr Propofol (Diprivan -) 100 mls @ 3.549 mls/hr IVPB TITR YE[facility]; 10 MCG/KG/MIN PRN Reason: Protocol Last Admin: 06/22/16 01:30 Dose: 3.549 mls/hr Dextrose/Sodium Chloride (D5-Ns -) 1,000 mls @ 75 mls/hr IV ASDIR [facility] Last Admin: 06/23/16 02:00 Dose: 75 mls/hr Fentanyl 500 mcg/ Dextrose 100 mls @ 10 mls/hr IVPB TITR [facility] PRN Reason: 50 MCG/HR Stop: 06/24/16 05:29 Last Admin: 06/23/16 05:30 Dose: 10 mls/hr Ibuprofen (Motrin -) 400 mg PO Q6H PRN PRN Reason: PAIN Last Admin: 06/21/16 06:23 Dose: 400 mg Insulin Aspart (Novolog Vial Sliding Scale -) 1 vial SQ TIDAC [facility] PRN Reason: Protocol Last Admin: 06/23/16 06:15 Dose: 3 units Lorazepam (Ativan -) 0.5 mg PO BID PRN PRN Reason: ANXIETY Methylprednisolone Sodium Succinate (Solu-Medrol -) 60 mg IVPB QIDR [facility] Last Admin: 06/23/16 06:15 Dose: 60 mg Nitroglycerin (Nitrostat -) 0.4 mg SL Q5M PRN PRN Reason: FOR CHEST PAIN Last Admin: 06/20/16 11:35 Dose: 0.4 mg Pantoprazole Sodium (Protonix 40mg Ivpb (Pre-Docked)) 40 mg IVPB DAILY [facility] Verapamil HCl (Calan Sr -) 180 mg PO DAILY [facility] Last Admin: 06/22/16 10:01 Dose: 180 mg - Objective Vital Signs: Vital Signs Temperature 99 F 06/23/16 06:00 Pulse Rate 75 06/23/16 06:00 Respiratory Rate 18 06/23/16 07:42 Blood Pressure 91/44 06/23/16 06:00 O2 Sat by Pulse Oximetry (%) 99 06/23/16 00:29 Constitutional: Yes: Other (+ ETT) Cardiovascular: Yes: Regular Rate and Rhythm Respiratory: Yes: Other (=breath sounds) Gastrointestinal: Yes: Soft Edema: No Labs: CBC, BMP 06/23/16 06:15 06/23/16 05:15 INR, PTT INR 1.02 (0.82-1.09) 06/09/16 05:05 - ....Imaging EKG: Image Reviewed Assessment/Plan Recurrent acute respiratory failure PNA Hypercarbia, hypoxia Anemia PSVT CAD s/p NSTEMI Mild COPD H/O Breast CA REC: Vent support Abx as per Critical Care Team ASA (refused cath) Verapamil or Cardizem IV for PSVT (has not tolerated beta jojo -wheezing) Follow H/H.
[2016-06-23 09:33] LABS: TROPONIN I 0.99 ng/ml (0.00-0.05)
[2016-06-23] MEDS ORDERED: PANTOPRAZOLE SODIUM 40 MG in SODIUM CHLORIDE 100 ML IVPB SCH (10:00)
[2016-06-23] MEDS: ENALAPRIL MALEATE 5 MG TABLET (FP) PO SCH ×2 (10:02→22:16)
[2016-06-23] MEDS: PANTOPRAZOLE SODIUM 40 MG/100 ML PRE-DOCKED IVPB SCH (10:02)
[2016-06-23] MEDS: ASPIRIN 81 MG CHEWABLE TABLETS PO SCH (10:02)
[2016-06-23] MEDS: ENOXAPARIN NA (PORCINE) 40 MG/0.4 ML DISP.SYRIN SQ SCH (10:02)
[2016-06-23] MEDS: BUDESONIDE/FORMETEROL FUMARATE 160/4.5 mcg INHALER IH SCH ×2 (10:03→22:16)
[2016-06-23] MEDS: VERAPAMIL HCL 180 MG E.R. TABLET (FP) PO SCH (14:47)
[2016-06-23] MEDS: PROPOFOL 100 ML IVPB SCH (15:57)
--- NOTE | 2016-06-23 16:00 | PN ---
Teaching Attending Note Name of Resident: Griffin Bell ATTENDING PHYSICIAN STATEMENT I saw and evaluated the patient. I reviewed the resident's note and discussed the case with the resident. I agree with the resident's findings and plan as documented. SUBJECTIVE: Patient seen and examined in the ICU. Remains intubated and sedated. No pressors. AC mode of vent. Intake & Output 06/20/16 06/21/16 06/22/16 06/23/16 23:59 23:59 23:59 23:59 Intake Total 279 023 5027.1 0 Output Total 500 525 Balance 850 989 5282.1 -525 Weight 129 lb 12.8 oz 130 lb 6.4 oz 124 lb 7 oz Last Vital Signs Temp Pulse Resp BP Pulse Ox 100.3 F H 87 18 98/42 100 06/23/16 14:00 06/23/16 14:00 06/23/16 14:00 06/23/16 14:00 06/23/16 10:00 Active Medications Acetaminophen (Tylenol -) 650 mg PO Q4H PRN PRN Reason: FEVER OR PAIN Last Admin: 06/21/16 21:10 Dose: 650 mg Al Hydroxide/Mg Hydroxide (Mylanta Oral Suspension -) 30 ml PO Q8H PRN PRN Reason: INDIGESTION Last Admin: 06/21/16 23:49 Dose: 30 ml Albuterol Sulfate (Ventolin 0.083% Nebulizer Soln -) 1 amp NEB Q4H PRN PRN Reason: SHORT OF BREATH/WHEEZING Albuterol/Ipratropium (Duoneb -) 1 amp NEB QIDR [facility] Last Admin: 06/23/16 11:40 Dose: 1 amp Aspirin (Asa -) 81 mg PO DAILY [facility] Last Admin: 06/23/16 10:02 Dose: 81 mg Atorvastatin Calcium (Lipitor -) 80 mg PO HS [facility] Last Admin: 06/22/16 21:32 Dose: Not Given Budesonide/Formoterol Fumarate (Symbicort 160/4.5mcg -) 2 puff IH BID [facility] Last Admin: 06/23/16 10:03 Dose: Not Given Enalapril Maleate (Vasotec -) 5 mg PO BID [facility] Last Admin: 06/23/16 10:02 Dose: 5 mg Hydralazine HCl (Apresoline -) 10 mg PO TID [facility] Last Admin: 06/23/16 14:47 Dose: Not Given Piperacillin Sod/Tazobactam Sod (Zosyn 3.375gm Ivpb (Pre-Docked)) 50 mls @ 100 mls/hr IVPB Q8H-IV [facility] PRN Reason: Protocol Last Admin: 06/23/16 10:03 Dose: 100 mls/hr Propofol (Diprivan -) 100 mls @ 3.549 mls/hr IVPB TITR [facility]; 10 MCG/KG/MIN PRN Reason: Protocol Last Admin: 06/23/16 15:57 Dose: 10 mls/hr Dextrose/Sodium Chloride (D5-Ns -) 1,000 mls @ 75 mls/hr IV ASDIR [facility] Last Admin: 06/23/16 02:00 Dose: 75 mls/hr Fentanyl 500 mcg/ Dextrose 100 mls @ 10 mls/hr IVPB TITR [facility] PRN Reason: 50 MCG/HR Stop: 06/24/16 05:29 Last Admin: 06/23/16 11:30 Dose: 10 mls/hr Ibuprofen (Motrin -) 400 mg PO Q6H PRN PRN Reason: PAIN Last Admin: 06/21/16 06:23 Dose: 400 mg Insulin Aspart (Novolog Vial Sliding Scale -) 1 vial SQ TIDAC [facility] PRN Reason: Protocol Last Admin: 06/23/16 11:58 Dose: 2 units Lorazepam (Ativan -) 0.5 mg PO BID PRN PRN Reason: ANXIETY Methylprednisolone Sodium Succinate (Solu-Medrol -) 60 mg IVPB QIDR [facility] Last Admin: 06/23/16 11:57 Dose: 60 mg Nitroglycerin (Nitrostat -) 0.4 mg SL Q5M PRN PRN Reason: FOR CHEST PAIN Last Admin: 06/20/16 11:35 Dose: 0.4 mg Pantoprazole Sodium (Protonix 40mg Ivpb (Pre-Docked)) 40 mg IVPB DAILY [facility] Last Admin: 06/23/16 10:02 Dose: 40 mg Verapamil HCl (Calan Sr -) 180 mg PO DAILY [facility] Last Admin: 06/23/16 14:47 Dose: Not Given Constitutional: Yes: Intubated and sedated Eyes: Yes: WNL HENT: Yes: WNL Neck: Yes: Supple Cardiovascular: Yes: Regular Rate and Rhythm, S1, S2 Respiratory: Yes: Scattered Rhonchi Gastrointestinal: Yes: Normal Bowel Sounds, Soft Extremities: Yes: WNL Edema: No Labs: Laboratory Results - last 24 hr 06/22/16 06/22/16 06/23/16 16:00 18:26 00:37 WBC RBC Hgb Hct MCV MCHC RDW Plt Count MPV Neutrophils % Lymphocytes % Puncture Site ABG pH ABG pCO2 at Pt Temp ABG pO2 at Pt Temp ABG HCO3 ABG O2 Sat (Measured) ABG O2 Content ABG Base Excess Rafi Test O2 Delivery Device Oxygen Flow Rate Vent Mode Vent Rate Mechanical Rate PEEP Pressure Support Vent Sodium Potassium Chloride Carbon Dioxide Anion Gap BUN Creatinine Creat Clearance w eGFR POC Glucometer [phone] Random Glucose Lactic Acid 3.574 H* Calcium Phosphorus Magnesium Total Bilirubin AST ALT Alkaline Phosphatase Creatine Kinase CK-MB (CK-2) Troponin I Total Protein Albumin Urine Color Stephani Urine Appearance Cloudy Urine pH 5.0 Ur Specific [place] 1.031 Urine Protein 2+ H Urine Glucose (UA) Negative Urine Ketones Negative Urine Blood 3+ H Urine Nitrite Negative Urine Bilirubin Negative Urine Urobilinogen Negative Ur Leukocyte Esterase 3+ H Urine RBC 315 Urine WBC 457 Ur Epithelial Cells Rare Urine Bacteria Many Urine Mucus Rare Urine Yeast Many 06/23/16 06/23/16 06/23/16 00:40 03:10 05:15 WBC RBC Hgb Hct MCV MCHC RDW Plt Count MPV Neutrophils % Lymphocytes % Puncture Site Md puncture Right radial ABG pH 7.45 7.47 H ABG pCO2 at Pt Temp 44.3 D 44.2 ABG pO2 at Pt Temp 65.7 L D 110.0 H D ABG HCO3 30.3 H 31.4 H ABG O2 Sat (Measured) 93.4 98.9 ABG O2 Content 12.3 L 10.2 L ABG Base Excess 6.1 H 7.3 H Rafi Test Positive O2 Delivery Device Bipap Mech vent Oxygen Flow Rate 40 50% Vent Mode St A/c Vent Rate 14 20 Mechanical Rate Yes PEEP 8.0 Pressure Support Vent 15/8 360 Sodium 145 Potassium 4.4 Chloride 105 Carbon Dioxide 31 Anion Gap 9 BUN 33 H D Creatinine 0.6 Creat Clearance w eGFR > 60 POC Glucometer Random Glucose 217 H Lactic Acid Calcium 8.2 L Phosphorus 2.5 Magnesium 2.2 Total Bilirubin 0.4 AST 47 H ALT 23 D Alkaline Phosphatase 58 Creatine Kinase CK-MB (CK-2) Troponin I Total Protein 4.3 L D Albumin 1.5 L D Urine Color Urine Appearance Urine pH Ur Specific [place] Urine Protein Urine Glucose (UA) Urine Ketones Urine Blood Urine Nitrite Urine Bilirubin Urine Urobilinogen Ur Leukocyte Esterase Urine RBC Urine WBC Ur Epithelial Cells Urine Bacteria Urine Mucus Urine Yeast 06/23/16 06/23/16 06/23/16 05:15 06:11 06:15 WBC 5.5 D RBC 3.19 L Hgb 7.6 L D Hct 24.6 L D MCV 77.3 L MCHC 30.7 L RDW 28.8 H Plt Count 95 L D MPV 8.9 Neutrophils % Y Lymphocytes % Y Puncture Site ABG pH ABG pCO2 at Pt Temp ABG pO2 at Pt Temp ABG HCO3 ABG O2 Sat (Measured) ABG O2 Content ABG Base Excess Rafi Test O2 Delivery Device Oxygen Flow Rate Vent Mode Vent Rate Mechanical Rate PEEP Pressure Support Vent Sodium Potassium Chloride Carbon Dioxide Anion Gap BUN Creatinine Creat Clearance w eGFR POC Glucometer [phone] Random Glucose Lactic Acid 3.279 H* Calcium Phosphorus Magnesium Total Bilirubin AST ALT Alkaline Phosphatase Creatine Kinase CK-MB (CK-2) Troponin I Total Protein Albumin Urine Color Urine Appearance Urine pH Ur Specific [place] Urine Protein Urine Glucose (UA) Urine Ketones Urine Blood Urine Nitrite Urine Bilirubin Urine Urobilinogen Ur Leukocyte Esterase Urine RBC Urine WBC Ur Epithelial Cells Urine Bacteria Urine Mucus Urine Yeast 06/23/16 06/23/16 06:15 11:50 WBC RBC Hgb Hct MCV MCHC RDW Plt Count MPV Neutrophils % Lymphocytes % Puncture Site ABG pH ABG pCO2 at Pt Temp ABG pO2 at Pt Temp ABG HCO3 ABG O2 Sat (Measured) ABG O2 Content ABG Base Excess Rafi Test O2 Delivery Device Oxygen Flow Rate Vent Mode Vent Rate Mechanical Rate PEEP Pressure Support Vent Sodium Potassium Chloride Carbon Dioxide Anion Gap BUN Creatinine Creat Clearance w eGFR POC Glucometer [phone] Random Glucose Lactic Acid Calcium Phosphorus Magnesium Total Bilirubin AST ALT Alkaline Phosphatase Creatine Kinase 225 H D CK-MB (CK-2) 1.932 Troponin I 0.99 H* Total Protein Albumin Urine Color Urine Appearance Urine pH Ur Specific [place] Urine Protein Urine Glucose (UA) Urine Ketones Urine Blood Urine Nitrite Urine Bilirubin Urine Urobilinogen Ur Leukocyte Esterase Urine RBC Urine WBC Ur Epithelial Cells Urine Bacteria Urine Mucus Urine Yeast Problem List - Problems (1) Aortic stenosis Code(s): I35.0 - NONRHEUMATIC AORTIC (VALVE) STENOSIS (2) History of PSVT (paroxysmal supraventricular tachycardia) Code(s): Z86.79 - PERSONAL HISTORY OF OTHER DISEASES OF THE CIRCULATORY SYSTEM (3) NSTEMI (non-ST elevated myocardial infarction) Code(s): I21.4 - NON-ST ELEVATION (NSTEMI) MYOCARDIAL INFARCTION (4) Respiratory failure Code(s): J96.90 - RESPIRATORY FAILURE, UNSP, UNSP W HYPOXIA OR HYPERCAPNIA Qualifiers: Chronicity: acute Respiratory failure complication: hypoxia and hypercapnia Qualified Code(s): J96.01 - Acute respiratory failure with hypoxia (5) Pulmonary hypertension Code(s): I27.2 - OTHER SECONDARY PULMONARY HYPERTENSION (6) Pulmonary nodules Code(s): R91.8 - OTHER NONSPECIFIC ABNORMAL FINDING OF LUNG FIELD (7) COPD (chronic obstructive pulmonary disease) Code(s): J44.9 - CHRONIC OBSTRUCTIVE PULMONARY DISEASE, UNSPECIFIED (8) History of cigarette smoking Code(s): Z87.891 - PERSONAL HISTORY OF NICOTINE DEPENDENCE (9) Acute on chronic respiratory failure with hypoxia and hypercapnia Code(s): J96.21 - ACUTE AND CHRONIC RESPIRATORY FAILURE WITH HYPOXIA J96.22 - ACUTE AND CHRONIC RESPIRATORY FAILURE WITH HYPERCAPNIA Assessment/Plan ASSESSMENT AND PLAN: Acute on Chronic Hypoxic and Hypercapneic Respiratory Failure Influenza A s/p treatment Acute COPD Exacerbation CAD +Troponins/Acute NSTEMI Lactic Acidosis resolved h/o Breast Ca 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
--- NOTE | 2016-06-23 16:12 | PN ---
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, Physician History of Present Illness: continues to be sedated and intubated but patient responding to commands moving arms and legs - Current Medication List Current Medications: Active Medications Acetaminophen (Tylenol -) 650 mg PO Q4H PRN PRN Reason: FEVER OR PAIN Last Admin: 06/21/16 21:10 Dose: 650 mg Al Hydroxide/Mg Hydroxide (Mylanta Oral Suspension -) 30 ml PO Q8H PRN PRN Reason: INDIGESTION Last Admin: 06/21/16 23:49 Dose: 30 ml Albuterol Sulfate (Ventolin 0.083% Nebulizer Soln -) 1 amp NEB Q4H PRN PRN Reason: SHORT OF BREATH/WHEEZING Albuterol/Ipratropium (Duoneb -) 1 amp NEB QIDR [facility] Last Admin: 06/23/16 11:40 Dose: 1 amp Aspirin (Asa -) 81 mg PO DAILY [facility] Last Admin: 06/23/16 10:02 Dose: 81 mg Atorvastatin Calcium (Lipitor -) 80 mg PO HS [facility] Last Admin: 06/22/16 21:32 Dose: Not Given Budesonide/Formoterol Fumarate (Symbicort 160/4.5mcg -) 2 puff IH BID [facility] Last Admin: 06/23/16 10:03 Dose: Not Given Diltiazem HCl (Cardizem -) 30 mg PO Q6H [facility] Enalapril Maleate (Vasotec -) 5 mg PO BID [facility] Last Admin: 06/23/16 10:02 Dose: 5 mg Hydralazine HCl (Apresoline -) 10 mg PO TID [facility] Last Admin: 06/23/16 14:47 Dose: Not Given Piperacillin Sod/Tazobactam Sod (Zosyn 3.375gm Ivpb (Pre-Docked)) 50 mls @ 100 mls/hr IVPB Q8H-IV [facility] PRN Reason: Protocol Last Admin: 06/23/16 10:03 Dose: 100 mls/hr Propofol (Diprivan -) 100 mls @ 3.549 mls/hr IVPB TITR [facility]; 10 MCG/KG/MIN PRN Reason: Protocol Last Admin: 06/23/16 15:57 Dose: 10 mls/hr Dextrose/Sodium Chloride (D5-Ns -) 1,000 mls @ 75 mls/hr IV ASDIR [facility] Last Admin: 06/23/16 02:00 Dose: 75 mls/hr Fentanyl 500 mcg/ Dextrose 100 mls @ 10 mls/hr IVPB TITR [facility] PRN Reason: 50 MCG/HR Stop: 06/24/16 05:29 Last Admin: 06/23/16 11:30 Dose: 10 mls/hr Ibuprofen (Motrin -) 400 mg PO Q6H PRN PRN Reason: PAIN Last Admin: 06/21/16 06:23 Dose: 400 mg Insulin Aspart (Novolog Vial Sliding Scale -) 1 vial SQ TIDAC [facility] PRN Reason: Protocol Last Admin: 06/23/16 11:58 Dose: 2 units Lorazepam (Ativan -) 0.5 mg PO BID PRN PRN Reason: ANXIETY Methylprednisolone Sodium Succinate (Solu-Medrol -) 60 mg IVPB QIDR [facility] Last Admin: 06/23/16 11:57 Dose: 60 mg Nitroglycerin (Nitrostat -) 0.4 mg SL Q5M PRN PRN Reason: FOR CHEST PAIN Last Admin: 06/20/16 11:35 Dose: 0.4 mg Pantoprazole Sodium (Protonix 40mg Ivpb (Pre-Docked)) 40 mg IVPB DAILY [facility] Last Admin: 06/23/16 10:02 Dose: 40 mg - Objective Vital Signs: Vital Signs Temperature 100.3 F H 06/23/16 14:00 Pulse Rate 92 H 06/23/16 16:00 Respiratory Rate 18 06/23/16 16:00 Blood Pressure 97/42 06/23/16 16:00 O2 Sat by Pulse Oximetry (%) 100 06/23/16 10:00 Constitutional: Yes: No Distress, Calm Cardiovascular: Yes: Regular Rate and Rhythm Respiratory: Yes: Intubated, Mechanically Ventilated Gastrointestinal: Yes: Normal Bowel Sounds, Soft, Other Musculoskeletal: Yes: WNL Extremities: Yes: WNL Integumentary: Yes: WNL Neurological: Yes: Other Labs: CBC, BMP 06/23/16 06:15 06/23/16 05:15 INR, PTT INR 1.02 (0.82-1.09) 06/09/16 05:05 Assessment/Plan Problem List - Problems (1) Aortic stenosis Code(s): I35.0 - NONRHEUMATIC AORTIC (VALVE) STENOSIS (2) History of PSVT (paroxysmal supraventricular tachycardia) Code(s): Z86.79 - PERSONAL HISTORY OF OTHER DISEASES OF THE CIRCULATORY SYSTEM (3) NSTEMI (non-ST elevated myocardial infarction) Code(s): I21.4 - NON-ST ELEVATION (NSTEMI) MYOCARDIAL INFARCTION (4) Respiratory failure Code(s): J96.90 - RESPIRATORY FAILURE, UNSP, UNSP W HYPOXIA OR HYPERCAPNIA Qualifiers: Chronicity: acute Respiratory failure complication: hypoxia and hypercapnia Qualified Code(s): J96.01 - Acute respiratory failure with hypoxia (5) Pulmonary hypertension Code(s): I27.2 - OTHER SECONDARY PULMONARY HYPERTENSION (6) Pulmonary nodules Code(s): R91.8 - OTHER NONSPECIFIC ABNORMAL FINDING OF LUNG FIELD (7) COPD (chronic obstructive pulmonary disease) Code(s): J44.9 - CHRONIC OBSTRUCTIVE PULMONARY DISEASE, UNSPECIFIED (8) History of cigarette smoking Code(s): Z87.891 - PERSONAL HISTORY OF NICOTINE DEPENDENCE (9) Acute on chronic respiratory failure with hypoxia and hypercapnia Code(s): J96.21 - ACUTE AND CHRONIC RESPIRATORY FAILURE WITH HYPOXIA J96.22 - ACUTE AND CHRONIC RESPIRATORY FAILURE WITH HYPERCAPNIAEPENDENCE +Troponins/Acute NSTEMI Lactic Acidosis h/o Breast Ca 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
[2016-06-23] MEDS: dilTIAZem HCL 30 MG TABLET (FP) PO SCH ×2 (17:17→23:54)
--- NOTE | 2016-06-23 17:48 | PN ---
Physical Exam: SUBJECTIVE: Patient seen and examined Patient intubated and sedated OBJECTIVE: Vital Signs Period Temp Pulse Resp BP Sys/Rasheed Pulse Ox Last 24 Hr 99 F-101 F 75-98 18-35 88-128/42-73 91-100 GENERAL: intubated, sedated HEAD: Normal with no signs of trauma. EYES: PERRL, NECK: Trachea midline, full range of motion, supple. LUNGS: b/l decrease air entry, diffuse wheez, rales on right side, using accessory muscle but after steroid her wheezing decreased, air entry improved. and no more accessory muscle use HEART: s1s2 normal tachy ABDOMEN: Soft, nontender, nondistended, normoactive bowel sounds, no guarding. EXTREMITIES: 2+ pulses, warm, well-perfused, no edema. SKIN: Warm, dry, Laboratory Results - last 24 hr 06/22/16 06/23/16 06/23/16 18:26 00:37 00:40 WBC RBC Hgb Hct MCV MCHC RDW Plt Count MPV Neutrophils % Lymphocytes % Puncture Site Md puncture ABG pH 7.45 ABG pCO2 at Pt Temp 44.3 D ABG pO2 at Pt Temp 65.7 L D ABG HCO3 30.3 H ABG O2 Sat (Measured) 93.4 ABG O2 Content 12.3 L ABG Base Excess 6.1 H Rafi Test O2 Delivery Device Bipap Oxygen Flow Rate [address] Vent Rate 14 Mechanical Rate PEEP Pressure Support Vent 15/8 Sodium Potassium Chloride Carbon Dioxide Anion Gap BUN Creatinine Creat Clearance w eGFR POC Glucometer [phone] Random Glucose Lactic Acid Calcium Phosphorus Magnesium Total Bilirubin AST ALT Alkaline Phosphatase Creatine Kinase CK-MB (CK-2) Troponin I Total Protein Albumin Urine Color Stephani Urine Appearance Cloudy Urine pH 5.0 Ur Specific [place] 1.031 Urine Protein 2+ H Urine Glucose (UA) Negative Urine Ketones Negative Urine Blood 3+ H Urine Nitrite Negative Urine Bilirubin Negative Urine Urobilinogen Negative Ur Leukocyte Esterase 3+ H Urine RBC 315 Urine WBC 457 Ur Epithelial Cells Rare Urine Bacteria Many Urine Mucus Rare Urine Yeast Many 06/23/16 06/23/16 06/23/16 03:10 05:15 05:15 WBC RBC Hgb Hct MCV MCHC RDW Plt Count MPV Neutrophils % Lymphocytes % Puncture Site Right radial ABG pH 7.47 H ABG pCO2 at Pt Temp 44.2 ABG pO2 at Pt Temp 110.0 H D ABG HCO3 31.4 H ABG O2 Sat (Measured) 98.9 ABG O2 Content 10.2 L ABG Base Excess 7.3 H Rafi Test Positive O2 Delivery Device Mech vent Oxygen Flow Rate 50% Vent Mode A/c Vent Rate 20 Mechanical Rate Yes PEEP 8.0 Pressure Support Vent 360 Sodium 145 Potassium 4.4 Chloride 105 Carbon Dioxide 31 Anion Gap 9 BUN 33 H D Creatinine 0.6 Creat Clearance w eGFR > 60 POC Glucometer Random Glucose 217 H Lactic Acid 3.279 H* Calcium 8.2 L Phosphorus 2.5 Magnesium 2.2 Total Bilirubin 0.4 AST 47 H ALT 23 D Alkaline Phosphatase 58 Creatine Kinase CK-MB (CK-2) Troponin I Total Protein 4.3 L D Albumin 1.5 L D Urine Color Urine Appearance Urine pH Ur Specific [place] Urine Protein Urine Glucose (UA) Urine Ketones Urine Blood Urine Nitrite Urine Bilirubin Urine Urobilinogen Ur Leukocyte Esterase Urine RBC Urine WBC Ur Epithelial Cells Urine Bacteria Urine Mucus Urine Yeast 06/23/16 06/23/16 06/23/16 06:11 06:15 06:15 WBC 5.5 D RBC 3.19 L Hgb 7.6 L D Hct 24.6 L D MCV 77.3 L MCHC 30.7 L RDW 28.8 H Plt Count 95 L D MPV 8.9 Neutrophils % Y Lymphocytes % Y Puncture Site ABG pH ABG pCO2 at Pt Temp ABG pO2 at Pt Temp ABG HCO3 ABG O2 Sat (Measured) ABG O2 Content ABG Base Excess Rafi Test O2 Delivery Device Oxygen Flow Rate Vent Mode Vent Rate Mechanical Rate PEEP Pressure Support Vent Sodium Potassium Chloride Carbon Dioxide Anion Gap BUN Creatinine Creat Clearance w eGFR POC Glucometer [phone] Random Glucose Lactic Acid Calcium Phosphorus Magnesium Total Bilirubin AST ALT Alkaline Phosphatase Creatine Kinase 225 H D CK-MB (CK-2) 1.932 Troponin I 0.99 H* Total Protein Albumin Urine Color Urine Appearance Urine pH Ur Specific [place] Urine Protein Urine Glucose (UA) Urine Ketones Urine Blood Urine Nitrite Urine Bilirubin Urine Urobilinogen Ur Leukocyte Esterase Urine RBC Urine WBC Ur Epithelial Cells Urine Bacteria Urine Mucus Urine Yeast 06/23/16 11:50 WBC RBC Hgb Hct MCV MCHC RDW Plt Count MPV Neutrophils % Lymphocytes % Puncture Site ABG pH ABG pCO2 at Pt Temp ABG pO2 at Pt Temp ABG HCO3 ABG O2 Sat (Measured) ABG O2 Content ABG Base Excess Rafi Test O2 Delivery Device Oxygen Flow Rate Vent Mode Vent Rate Mechanical Rate PEEP Pressure Support Vent Sodium Potassium Chloride Carbon Dioxide Anion Gap BUN Creatinine Creat Clearance w eGFR POC Glucometer [phone] Random Glucose Lactic Acid Calcium Phosphorus Magnesium Total Bilirubin AST ALT Alkaline Phosphatase Creatine Kinase CK-MB (CK-2) Troponin I Total Protein Albumin Urine Color Urine Appearance Urine pH Ur Specific [place] Urine Protein Urine Glucose (UA) Urine Ketones Urine Blood Urine Nitrite Urine Bilirubin Urine Urobilinogen Ur Leukocyte Esterase Urine RBC Urine WBC Ur Epithelial Cells Urine Bacteria Urine Mucus Urine Yeast Active Medications Generic Name Dose Route Start Last Admin Trade Name Freq PRN Reason Stop Dose Admin Acetaminophen 650 mg 06/15/16 19:22 06/21/16 21:10 Tylenol - PO 650 mg Q4H PRN Administration FEVER OR PAIN Al Hydroxide/Mg Hydroxide 30 ml 06/21/16 23:41 06/21/16 23:49 Mylanta Oral Suspension - PO 30 ml Q8H PRN Administration INDIGESTION Albuterol Sulfate 1 amp 06/22/16 16:09 Ventolin 0.083% Nebulizer Soln - NEB Q4H PRN SHORT OF BREATH/WHEEZING Albuterol/Ipratropium 1 amp 06/22/16 18:00 06/23/16 11:40 Duoneb - NEB 1 amp QIDR YEISON Administration Aspirin 81 mg 06/16/16 10:00 06/23/16 10:02 Asa - PO 81 mg DAILY YEISON Administration Atorvastatin Calcium 80 mg 06/15/16 22:00 06/22/16 21:32 Lipitor - PO Not Given HS YEISON Budesonide/Formoterol Fumarate 2 puff 06/21/16 12:30 06/23/16 10:03 Symbicort 160/4.5mcg - IH Not Given BID YEISON Diltiazem HCl 30 mg 06/23/16 18:00 06/23/16 17:17 Cardizem - PO 30 mg Q6HPO YE[facility] Administration Enalapril Maleate 5 mg 06/15/16 22:00 06/23/16 10:02 Vasotec - PO 5 mg BID YEISON Administration Hydralazine HCl 10 mg 06/15/16 22:00 06/23/16 14:47 Apresoline - PO Not Given TID YEISON Piperacillin Sod/Tazobactam Sod 50 mls @ 100 mls/hr 06/22/16 13:30 06/23/16 17: 17 Zosyn 3.375gm Ivpb (Pre-Docked) IVPB 100 mls/hr Q8H-IV YEISON Administration Protocol Propofol 100 mls @ 3.549 mls/hr 06/23/16 00:45 06/23/16 15:57 Diprivan - IVPB 10 mls/hr TITR YEISON Administration Protocol 10 MCG/KG/MIN Dextrose/Sodium Chloride 1,000 mls @ 75 mls/hr 06/23/16 02:45 06/23/16 02:00 D5-Ns - IV 75 mls/hr ASDIR YEISON Administration Fentanyl 500 mcg/ Dextrose 100 mls @ 10 mls/hr 06/23/16 05:30 06/23/16 11:30 IVPB 06/24/16 05:29 10 mls/hr TITR YEISON Administration 50 MCG/HR Ibuprofen 400 mg 06/19/16 19:17 06/21/16 06:23 Motrin - PO 400 mg Q6H PRN Administration PAIN Insulin Aspart 1 vial 06/16/16 07:00 06/23/16 17:18 Novolog Vial Sliding Scale - SQ 2 units TIDAC YEISON Administration Protocol Lorazepam 0.5 mg 06/22/16 14:22 Ativan - PO BID PRN ANXIETY Methylprednisolone Sodium Succinate 60 mg 06/22/16 15:10 06/23/16 17:17 Solu-Medrol - IVPB 60 mg QIDR YEISON Administration Nitroglycerin 0.4 mg 06/20/16 11:09 06/20/16 11:35 Nitrostat - SL 0.4 mg Q5M PRN Administration FOR CHEST PAIN Pantoprazole Sodium 40 mg 06/23/16 10:00 06/23/16 10:02 Protonix 40mg Ivpb (Pre-Docked) IVPB 40 mg DAILY YE[facility] Administration ABG Results ABG pH 7.47 (7.35-7.45) H 06/23/16 03:10 ABG pCO2 at Pt Temp 44.2 mmHg (35-45) 06/23/16 03:10 ABG pO2 at Pt Temp 110.0 mmHg (70-100) H D 06/23/16 03:10 ABG HCO3 31.4 meq/L (22-26) H 06/23/16 03:10 ABG O2 Sat (Measured) 98.9 % (90-98.9) 06/23/16 03:10 ABG O2 Content 10.2 % vol (15-22) L 06/23/16 03:10 ABG Base Excess 7.3 meq/l (-2-2) H 06/23/16 03:10 ASSESSMENT/PLAN: acute hypercapneic respiratory failure due to aspiration pneumonia sedated, intubated keep spo2 over 90 Nebulizers YEISON and PRN on solumedrom 60 qid on zosyn and vanco cxr shows right side infiltrate, ollow pending culture follow abg in morning ID on case on duoneb neb q6h standing completed a course of tamiflue Shock improving could be from aspiration pneumonia follow culture on iV fluid NS Follow lactic acid monitor vitals monitor intake/ output antibiotics as per ID hold blood pressure medication as patient has low bp altered mental status copuld be from metabolic encephalopathy patient sedated and intubated H/O HTN/ afib hold enalapril 5 bid and hold hydralazine 10 tid for low bp on cardiazem 30mg q6h h/o copd on duoneb on solumedrol 60 q6h DM on sliding scale novalog influenza positive completed a course of tamiflue Microcytic anemia HGB stable Monitor H&H FEN IVF NS follow in am tube feed Prophylaxis DVT: lovenox GI: PPI iv Code status - Full code dispo : admit in icu Visit type - Emergency Visit Emergency Visit: Yes ED Registration Date: 05/30/16 Care time: The patient presented to the Emergency Department on the above date and was hospitalized for further evaluation of their emergent condition. - New Patient This patient is new to me today: No - Critical Care Critical Care patient: Yes Total Critical Care Time (in minutes): 45 Critical Care Statement: The care of this patient involved high complexity decision making to prevent further life threatening deterioration of the patient 's condition and/or to evalute & treat vital organ system(s) failure or risk of failure.
[2016-06-23] MEDS: ACETAMINOPHEN 325 MG TABLET (FP) PO PRN (18:30)
--- NOTE | 2016-06-23 19:25 | PN ---
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, Physician History of Present Illness: intubated and sedated f - Current Medication List Current Medications: Active Medications Acetaminophen (Tylenol -) 650 mg PO Q4H PRN PRN Reason: FEVER OR PAIN Last Admin: 06/23/16 18:30 Dose: 650 mg Al Hydroxide/Mg Hydroxide (Mylanta Oral Suspension -) 30 ml PO Q8H PRN PRN Reason: INDIGESTION Last Admin: 06/21/16 23:49 Dose: 30 ml Albuterol Sulfate (Ventolin 0.083% Nebulizer Soln -) 1 amp NEB Q4H PRN PRN Reason: SHORT OF BREATH/WHEEZING Albuterol/Ipratropium (Duoneb -) 1 amp NEB QIDR [facility] Last Admin: 06/23/16 19:00 Dose: 1 amp Aspirin (Asa -) 81 mg PO DAILY [facility] Last Admin: 06/23/16 10:02 Dose: 81 mg Atorvastatin Calcium (Lipitor -) 80 mg PO HS [facility] Last Admin: 06/22/16 21:32 Dose: Not Given Budesonide/Formoterol Fumarate (Symbicort 160/4.5mcg -) 2 puff IH BID [facility] Last Admin: 06/23/16 10:03 Dose: Not Given Diltiazem HCl (Cardizem -) 30 mg PO Q6HPO [facility] Last Admin: 06/23/16 17:17 Dose: 30 mg Enalapril Maleate (Vasotec -) 5 mg PO BID [facility] Last Admin: 06/23/16 10:02 Dose: 5 mg Hydralazine HCl (Apresoline -) 10 mg PO TID [facility] Last Admin: 06/23/16 14:47 Dose: Not Given Piperacillin Sod/Tazobactam Sod (Zosyn 3.375gm Ivpb (Pre-Docked)) 50 mls @ 100 mls/hr IVPB Q8H-IV YEISON PRN Reason: Protocol Last Admin: 06/23/16 17:17 Dose: 100 mls/hr Propofol (Diprivan -) 100 mls @ 3.549 mls/hr IVPB TITR YEISON; 10 MCG/KG/MIN PRN Reason: Protocol Last Admin: 06/23/16 15:57 Dose: 10 mls/hr Fentanyl 500 mcg/ Dextrose 100 mls @ 10 mls/hr IVPB TITR YEISON PRN Reason: 50 MCG/HR Stop: 06/24/16 05:29 Last Admin: 06/23/16 11:30 Dose: 10 mls/hr Dextrose/Sodium Chloride (D5-Ns -) 1,000 mls @ 42 mls/hr IV ASDIR [facility] Ibuprofen (Motrin -) 400 mg PO Q6H PRN PRN Reason: PAIN Last Admin: 06/21/16 06:23 Dose: 400 mg Insulin Aspart (Novolog Vial Sliding Scale -) 1 vial SQ TIDAC [facility] PRN Reason: Protocol Last Admin: 06/23/16 17:18 Dose: 2 units Lorazepam (Ativan -) 0.5 mg PO BID PRN PRN Reason: ANXIETY Methylprednisolone Sodium Succinate (Solu-Medrol -) 60 mg IVPB QIDR [facility] Last Admin: 06/23/16 17:17 Dose: 60 mg Nitroglycerin (Nitrostat -) 0.4 mg SL Q5M PRN PRN Reason: FOR CHEST PAIN Last Admin: 06/20/16 11:35 Dose: 0.4 mg Pantoprazole Sodium (Protonix 40mg Ivpb (Pre-Docked)) 40 mg IVPB DAILY [facility] Last Admin: 06/23/16 10:02 Dose: 40 mg - Objective Vital Signs: Vital Signs Temperature 100.4 F H 06/23/16 18:23 Pulse Rate 92 H 06/23/16 18:23 Respiratory Rate 19 06/23/16 18:59 Blood Pressure 90/48 06/23/16 18:23 O2 Sat by Pulse Oximetry (%) 100 06/23/16 10:00 Constitutional: Yes: No Distress HENT: Yes: Atraumatic Neck: Yes: Supple Cardiovascular: Yes: Regular Rate and Rhythm Respiratory: Yes: CTA Bilaterally Gastrointestinal: Yes: Normal Bowel Sounds Extremities: Yes: WNL Neurological: Yes: Alert, Oriented Labs: CBC, BMP 06/23/16 06:15 06/23/16 05:15 INR, PTT INR 1.02 (0.82-1.09) 06/09/16 05:05 Problem List - Problems (1) Respiratory failure Assessment/Plan: pt is on bipap/face mask duo nebs if needed ivsteroids...taper Code(s): J96.90 - RESPIRATORY FAILURE, UNSP, UNSP W HYPOXIA OR HYPERCAPNIA Qualifiers: Chronicity: acute Respiratory failure complication: hypoxia and hypercapnia Qualified Code(s): J96.01 - Acute respiratory failure with hypoxia (2) Chronic respiratory failure with hypoxia Assessment/Plan: see above Code(s): J96.11 - CHRONIC RESPIRATORY FAILURE WITH HYPOXIA (3) CAD (coronary artery disease) Assessment/Plan: on meds follow up labs continue current meds Code(s): I25.10 - ATHSCL HEART DISEASE OF [place] CORONARY ARTERY W/O ANG PCTRS (4) COPD (chronic obstructive pulmonary disease) Assessment/Plan: on meds stable Code(s): J44.9 - CHRONIC OBSTRUCTIVE PULMONARY DISEASE, UNSPECIFIED (5) Chronic diastolic CHF (congestive heart failure) Assessment/Plan: stable on meds Code(s): I50.32 - CHRONIC DIASTOLIC (CONGESTIVE) HEART FAILURE (6) HLD (hyperlipidemia) Assessment/Plan: on meds Code(s): E78.5 - HYPERLIPIDEMIA, UNSPECIFIED Qualifiers: Hyperlipidemia type: unspecified Qualified Code(s): E78.5 - Hyperlipidemia, unspecified (7) HTN (hypertension) Assessment/Plan: on meds stable Code(s): I10 - ESSENTIAL (PRIMARY) HYPERTENSION Qualifiers: Hypertension type: essential hypertension Qualified Code(s): I10 - Essential (primary) hypertension (8) History of cigarette smoking Code(s): Z87.891 - PERSONAL HISTORY OF NICOTINE DEPENDENCE (9) Influenza Assessment/Plan: on meds id consult Code(s): J11.1 - FLU DUE TO UNIDENTIFIED INFLUENZA VIRUS W OTH RESP MANIFEST
[2016-06-23] MEDS: DEXTROSE 5%-NORMAL SALINE 1,000 ML IV SCH (22:00)
[2016-06-23] MEDS: ATORVASTATIN CA 80 MG TABLET (FP) PO SCH (22:16)
[2016-06-24] MEDS: PROPOFOL 100 ML IVPB SCH ×4 (01:08→21:36)
[2016-06-24] MEDS: PIPERACILLIN/TAZOB 3.375 GM 50 ML IVPB SCH ×3 (01:08→17:40)
[2016-06-24] MEDS: ALBUTEROL SO4 2.5/IPRATROPIUM 0.5 INH SOL 3 ML VIAL.NEB. NEB SCH ×4 (06:20→23:58)
[2016-06-24 06:29] LABS: CALCIUM 8.1 mg/dL (8.5-10.1); COCKROFT - GAULT 62.8235; CREATININE 0.7 mg/dL (0.55-1.02)
[2016-06-24 06:32] LABS: BASOPHIL 0.2 % (0-2.0); MCH 24.3 pg (25.7-33.7); MCHC 32.2 g/dl (32.0-36.0); MEAN CELL VOLUME 75.5 fl (80-96); MEAN PLT VOLUME 9.2 fl (7.5-11.1); PLATELET COUNT 100 K/MM3 (134-434); WHITE BLOOD COUNT 9.1 K/mm3 (4.0-10.0)
[2016-06-24] MEDS: methylPREDNISolone NA SUCC 40 MG/1 ML VIAL IVPB SCH ×3 (06:36→17:42)
[2016-06-24] MEDS: INSULIN SLIDING SCALE (NOVOLOG) 1 VIAL SQ SCH ×3 (06:36→17:40)
[2016-06-24] MEDS: hydrALAZINE HCL 10 MG TABLET PO SCH ×3 (06:37→21:34)
[2016-06-24] MEDS: dilTIAZem HCL 30 MG TABLET (FP) PO SCH ×3 (06:40→17:40)
--- NOTE | 2016-06-24 08:21 | PN ---
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, Physician Chief Complaint: Intubated TELE: NSR w/ runs PSVT, self limited History of Present Illness: sedated on vent - Current Medication List Current Medications: Active Medications Acetaminophen (Tylenol -) 650 mg PO Q4H PRN PRN Reason: FEVER OR PAIN Last Admin: 06/23/16 18:30 Dose: 650 mg Al Hydroxide/Mg Hydroxide (Mylanta Oral Suspension -) 30 ml PO Q8H PRN PRN Reason: INDIGESTION Last Admin: 06/21/16 23:49 Dose: 30 ml Albuterol Sulfate (Ventolin 0.083% Nebulizer Soln -) 1 amp NEB Q4H PRN PRN Reason: SHORT OF BREATH/WHEEZING Albuterol/Ipratropium (Duoneb -) 1 amp NEB QIDR [facility]ISON Last Admin: 06/24/16 06:20 Dose: 1 amp Aspirin (Asa -) 81 mg PO DAILY [facility] Last Admin: 06/23/16 10:02 Dose: 81 mg Atorvastatin Calcium (Lipitor -) 80 mg PO HS [facility] Last Admin: 06/23/16 22:16 Dose: 80 mg Budesonide/Formoterol Fumarate (Symbicort 160/4.5mcg -) 2 puff IH BID [facility] Last Admin: 06/23/16 22:16 Dose: Not Given Diltiazem HCl (Cardizem -) 30 mg PO Q6HPO [facility] Last Admin: 06/24/16 06:40 Dose: 30 mg Enalapril Maleate (Vasotec -) 5 mg PO BID [facility] Last Admin: 06/23/16 22:16 Dose: Not Given Hydralazine HCl (Apresoline -) 10 mg PO TID [facility] Last Admin: 06/24/16 06:37 Dose: Not Given Piperacillin Sod/Tazobactam Sod (Zosyn 3.375gm Ivpb (Pre-Docked)) 50 mls @ 100 mls/hr IVPB Q8H-IV [facility] PRN Reason: Protocol Last Admin: 06/24/16 01:08 Dose: 100 mls/hr Propofol (Diprivan -) 100 mls @ 3.549 mls/hr IVPB TITR YEISON; 10 MCG/KG/MIN PRN Reason: Protocol Last Admin: 06/24/16 01:08 Dose: 30 mls/hr Dextrose/Sodium Chloride (D5-Ns -) 1,000 mls @ 42 mls/hr IV ASDIR [facility] Last Admin: 06/23/16 22:00 Dose: 42 mls/hr Ibuprofen (Motrin -) 400 mg PO Q6H PRN PRN Reason: PAIN Last Admin: 06/21/16 06:23 Dose: 400 mg Insulin Aspart (Novolog Vial Sliding Scale -) 1 vial SQ TIDAC [facility] PRN Reason: Protocol Last Admin: 06/24/16 06:36 Dose: 4 units Lorazepam (Ativan -) 0.5 mg PO BID PRN PRN Reason: ANXIETY Methylprednisolone Sodium Succinate (Solu-Medrol -) 60 mg IVPB QIDR [facility] Last Admin: 06/24/16 06:36 Dose: 60 mg Nitroglycerin (Nitrostat -) 0.4 mg SL Q5M PRN PRN Reason: FOR CHEST PAIN Last Admin: 06/20/16 11:35 Dose: 0.4 mg Pantoprazole Sodium (Protonix 40mg Ivpb (Pre-Docked)) 40 mg IVPB DAILY [facility] Last Admin: 06/23/16 10:02 Dose: 40 mg - Objective Vital Signs: Vital Signs Temperature 98.2 F 06/24/16 07:00 Pulse Rate 75 06/24/16 08:12 Respiratory Rate 20 06/24/16 08:12 Blood Pressure 93/48 06/24/16 08:12 O2 Sat by Pulse Oximetry (%) 93 L 06/24/16 07:58 HENT: Yes: Other (+ ETT) Cardiovascular: Yes: Regular Rate and Rhythm Respiratory: Yes: Other (b/l rhonchi) Gastrointestinal: Yes: Soft Edema: No Labs: CBC, BMP 06/24/16 05:15 06/24/16 05:15 INR, PTT INR 1.02 (0.82-1.09) 06/09/16 05:05 - ....Imaging X-ray: Report Reviewed Assessment/Plan Recurrent acute respiratory failure Bilateral PNA Anemia PSVT CAD s/p NSTEMI Mild COPD REC: Vent support Abx as per Critical Care Team ASA (refused cath) Verapamil or Cardizem for control PSVT (has not tolerated beta jojo - wheezing) Follow H/H.
[2016-06-24] MEDS: PANTOPRAZOLE SODIUM 40 MG/100 ML PRE-DOCKED IVPB SCH (09:09)
[2016-06-24] MEDS: BUDESONIDE/FORMETEROL FUMARATE 160/4.5 mcg INHALER IH SCH ×2 (09:10→21:35)
[2016-06-24] MEDS: ENALAPRIL MALEATE 5 MG TABLET (FP) PO SCH ×2 (09:10→21:35)
[2016-06-24] MEDS: ASPIRIN 81 MG CHEWABLE TABLETS PO SCH (09:10)
[2016-06-24] MEDS ORDERED: BENZOIN/ALOE VERA/STORAX/TOLU 58 ML BOTTLE ONE (09:33)
[2016-06-24 10:49] LABS: TROPONIN I 1.61 ng/ml (0.00-0.05)
[2016-06-24] MEDS: DEXTROSE 5%-NORMAL SALINE 1,000 ML IV SCH (11:04)
[2016-06-24] MEDS ORDERED: SODIUM CHLORIDE 500 ML IV STA (11:10)
--- NOTE | 2016-06-24 11:32 | PN ---
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, Physician History of Present Illness: patient still intubated and sedated more responsive though low grade fevers yesterday - Current Medication List Current Medications: Active Medications Acetaminophen (Tylenol -) 650 mg PO Q4H PRN PRN Reason: FEVER OR PAIN Last Admin: 06/23/16 18:30 Dose: 650 mg Al Hydroxide/Mg Hydroxide (Mylanta Oral Suspension -) 30 ml PO Q8H PRN PRN Reason: INDIGESTION Last Admin: 06/21/16 23:49 Dose: 30 ml Albuterol Sulfate (Ventolin 0.083% Nebulizer Soln -) 1 amp NEB Q4H PRN PRN Reason: SHORT OF BREATH/WHEEZING Albuterol/Ipratropium (Duoneb -) 1 amp NEB QIDR [facility] Last Admin: 06/24/16 06:20 Dose: 1 amp Aspirin (Asa -) 81 mg PO DAILY [facility] Last Admin: 06/24/16 09:10 Dose: 81 mg Atorvastatin Calcium (Lipitor -) 80 mg PO HS [facility] Last Admin: 06/23/16 22:16 Dose: 80 mg Budesonide/Formoterol Fumarate (Symbicort 160/4.5mcg -) 2 puff IH BID [facility] Last Admin: 06/24/16 09:10 Dose: Not Given Chlorhexidine Gluconate (Peridex -) 15 ml MM BID [facility] Diltiazem HCl (Cardizem -) 30 mg PO Q6HPO [facility] Last Admin: 06/24/16 11:02 Dose: 30 mg Enalapril Maleate (Vasotec -) 5 mg PO BID [facility] Last Admin: 06/24/16 09:10 Dose: Not Given Hydralazine HCl (Apresoline -) 10 mg PO TID [facility] Last Admin: 06/24/16 06:37 Dose: Not Given Piperacillin Sod/Tazobactam Sod (Zosyn 3.375gm Ivpb (Pre-Docked)) 50 mls @ 100 mls/hr IVPB Q8H-IV [facility] PRN Reason: Protocol Last Admin: 06/24/16 10:01 Dose: 100 mls/hr Propofol (Diprivan -) 100 mls @ 3.549 mls/hr IVPB TITR YEISON; 10 MCG/KG/MIN PRN Reason: Protocol Last Titration: 06/24/16 10:01 Dose: 40 mcg/kg/min Dextrose/Sodium Chloride (D5-Ns -) 1,000 mls @ 42 mls/hr IV ASDIR [facility] Last Admin: 06/24/16 11:04 Dose: 42 mls/hr Sodium Chloride (Normal Saline -) 500 mls @ 500 mls/hr IV ASDIR [facility] Stop: 06/24/16 12:09 Last Admin: 06/24/16 11:24 Dose: 500 mls/hr Ibuprofen (Motrin -) 400 mg PO Q6H PRN PRN Reason: PAIN Last Admin: 06/21/16 06:23 Dose: 400 mg Insulin Aspart (Novolog Vial Sliding Scale -) 1 vial SQ TIDAC [facility] PRN Reason: Protocol Last Admin: 06/24/16 10:18 Dose: 3 units Lorazepam (Ativan -) 0.5 mg PO BID PRN PRN Reason: ANXIETY Methylprednisolone Sodium Succinate (Solu-Medrol -) 60 mg IVPB QIDR [facility] Last Admin: 06/24/16 11:02 Dose: 60 mg Nitroglycerin (Nitrostat -) 0.4 mg SL Q5M PRN PRN Reason: FOR CHEST PAIN Last Admin: 06/20/16 11:35 Dose: 0.4 mg Pantoprazole Sodium (Protonix 40mg Ivpb (Pre-Docked)) 40 mg IVPB DAILY [facility] Last Admin: 06/24/16 09:09 Dose: 40 mg - Objective Vital Signs: Vital Signs Temperature 98.2 F 06/24/16 10:00 Pulse Rate 78 06/24/16 10:00 Respiratory Rate 19 06/24/16 10:00 Blood Pressure 99/43 06/24/16 10:00 O2 Sat by Pulse Oximetry (%) 93 L 06/24/16 07:58 Constitutional: Yes: Calm, Other Neck: Yes: Supple Cardiovascular: Yes: Regular Rate and Rhythm Respiratory: Yes: Intubated, Mechanically Ventilated, Rhonchi, Other (thin secretions) Gastrointestinal: Yes: Normal Bowel Sounds, Soft, Other Musculoskeletal: Yes: WNL Extremities: Yes: WNL Neurological: Yes: Other Labs: CBC, BMP 06/24/16 05:15 06/24/16 05:15 INR, PTT INR 1.02 (0.82-1.09) 06/09/16 05:05 - ....Imaging Chest X-ray: Report Reviewed, Image Reviewed Assessment/Plan Problem List - Problems (1) Aortic stenosis Code(s): I35.0 - NONRHEUMATIC AORTIC (VALVE) STENOSIS (2) History of PSVT (paroxysmal supraventricular tachycardia) Code(s): Z86.79 - PERSONAL HISTORY OF OTHER DISEASES OF THE CIRCULATORY SYSTEM (3) NSTEMI (non-ST elevated myocardial infarction) Code(s): I21.4 - NON-ST ELEVATION (NSTEMI) MYOCARDIAL INFARCTION (4) Respiratory failure Code(s): J96.90 - RESPIRATORY FAILURE, UNSP, UNSP W HYPOXIA OR HYPERCAPNIA Qualifiers: Chronicity: acute Respiratory failure complication: hypoxia and hypercapnia Qualified Code(s): J96.01 - Acute respiratory failure with hypoxia (5) Pulmonary hypertension Code(s): I27.2 - OTHER SECONDARY PULMONARY HYPERTENSION (6) Pulmonary nodules Code(s): R91.8 - OTHER NONSPECIFIC ABNORMAL FINDING OF LUNG FIELD (7) COPD (chronic obstructive pulmonary disease) Code(s): J44.9 - CHRONIC OBSTRUCTIVE PULMONARY DISEASE, UNSPECIFIED (8) History of cigarette smoking Code(s): Z87.891 - PERSONAL HISTORY OF NICOTINE DEPENDENCE (9) Acute on chronic respiratory failure with hypoxia and hypercapnia Code(s): J96.21 - ACUTE AND CHRONIC RESPIRATORY FAILURE WITH HYPOXIA J96.22 - ACUTE AND CHRONIC RESPIRATORY FAILURE WITH HYPERCAPNIAEPENDENCE +Troponins/Acute NSTEMI Lactic Acidosis h/o Breast Ca 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
--- NOTE | 2016-06-24 12:10 | PN ---
Physical Exam: SUBJECTIVE: Patient seen and examined patient intbated and sedated will stop her fentanyl Hb dropped, will get stool for occult, transfuse one unit blood keep hb > 8 Trop i can be elevated due to stress induce. will trend trop i, patient is on aspirin and atorvastatin. Lactic acid decreasing Patient on NG feed OBJECTIVE: Vital Signs Period Temp Pulse Resp BP Sys/Rasheed Pulse Ox Last 24 Hr 98.2 F-100.4 F 73-100 18-21 81-102/42-51 93-100 GENERAL: intubated, sedated HEAD: Normal with no signs of trauma. EYES: PERRL, NECK: Trachea midline, full range of motion, supple. LUNGS: b/l decrease air entry, diffuse wheez, rales on right side, using accessory muscle but after steroid her wheezing decreased, air entry improved. and no more accessory muscle use HEART: s1s2 normal tachy ABDOMEN: Soft, nontender, nondistended, normoactive bowel sounds, no guarding. EXTREMITIES: 2+ pulses, warm, well-perfused, no edema. SKIN: Warm, dry, Laboratory Results - last 24 hr 06/23/16 06/23/16 06/23/16 06:11 11:50 17:04 WBC RBC Hgb Hct MCV MCHC RDW Plt Count MPV Neutrophils % Lymphocytes % Monocytes % Eosinophils % Basophils % Sodium Potassium Chloride Carbon Dioxide Anion Gap BUN Creatinine POC Glucometer [phone] Random Glucose Lactic Acid Calcium Creatine Kinase CK-MB (CK-2) Troponin I 06/24/16 06/24/16 06/24/16 05:15 05:15 06:23 WBC 9.1 D RBC 3.00 L Hgb 7.3 L Hct 22.6 L MCV 75.5 L MCHC 32.2 RDW 28.0 H Plt Count 100 L MPV 9.2 Neutrophils % 91.0 H D Lymphocytes % 4.8 L Monocytes % 4.0 D Eosinophils % 0.0 Basophils % 0.2 Sodium 143 Potassium 3.9 Chloride 107 Carbon Dioxide 29 Anion Gap 7 L BUN 37 H Creatinine 0.7 POC Glucometer [phone] Random Glucose 272 H D Lactic Acid Calcium 8.1 L Creatine Kinase CK-MB (CK-2) Troponin I 06/24/16 06/24/16 06/24/16 09:30 09:30 10:15 WBC RBC Hgb Hct MCV MCHC RDW Plt Count MPV Neutrophils % Lymphocytes % Monocytes % Eosinophils % Basophils % Sodium Potassium Chloride Carbon Dioxide Anion Gap BUN Creatinine POC Glucometer [phone] Random Glucose Lactic Acid 2.488 H* Calcium Creatine Kinase 159 D CK-MB (CK-2) 1.756 Troponin I 1.61 H* Active Medications Generic Name Dose Route Start Last Admin Trade Name Freq PRN Reason Stop Dose Admin Acetaminophen 650 mg 06/15/16 19:22 06/23/16 18:30 Tylenol - PO 650 mg Q4H PRN Administration FEVER OR PAIN Al Hydroxide/Mg Hydroxide 30 ml 06/21/16 23:41 06/21/16 23:49 Mylanta Oral Suspension - PO 30 ml Q8H PRN Administration INDIGESTION Albuterol Sulfate 1 amp 06/22/16 16:09 Ventolin 0.083% Nebulizer Soln - NEB Q4H PRN SHORT OF BREATH/WHEEZING Albuterol/Ipratropium 1 amp 06/22/16 18:00 06/24/16 11:52 Duoneb - NEB 1 amp QIDR YEISON Administration Aspirin 81 mg 06/16/16 10:00 06/24/16 09:10 Asa - PO 81 mg DAILY YEISON Administration Atorvastatin Calcium 80 mg 06/15/16 22:00 06/23/16 22:16 Lipitor - PO 80 mg HS YEISON Administration Budesonide/Formoterol Fumarate 2 puff 06/21/16 12:30 06/24/16 09:10 Symbicort 160/4.5mcg - IH Not Given BID YEISON Chlorhexidine Gluconate 15 ml 06/24/16 22:00 Peridex - MM BID YEISON Diltiazem HCl 30 mg 06/23/16 18:00 06/24/16 11:02 Cardizem - PO 30 mg Q6HPO YEISON Administration Enalapril Maleate 5 mg 06/15/16 22:00 06/24/16 09:10 Vasotec - PO Not Given BID YEISON Heparin Sodium (Porcine) 5,000 unit 06/24/16 14:00 Heparin - SQ BID YEISON Hydralazine HCl 10 mg 06/15/16 22:00 06/24/16 06:37 Apresoline - PO Not Given TID YEISON Piperacillin Sod/Tazobactam Sod 50 mls @ 100 mls/hr 06/22/16 13:30 06/24/16 10: 01 Zosyn 3.375gm Ivpb (Pre-Docked) IVPB 100 mls/hr Q8H-IV YEISON Administration Protocol Propofol 100 mls @ 3.549 mls/hr 06/23/16 00:45 06/24/16 10:01 Diprivan - IVPB 40 mcg/kg/min TITR YEISON Titration Protocol 10 MCG/KG/MIN Dextrose/Sodium Chloride 1,000 mls @ 42 mls/hr 06/23/16 18:43 06/24/16 11:04 D5-Ns - IV 42 mls/hr ASDIR YEISON Administration Sodium Chloride 500 mls @ 500 mls/hr 06/24/16 11:10 06/24/16 11:24 Normal Saline - IV 06/24/16 12:09 500 mls/hr ASDIR STA Administration Ibuprofen 400 mg 06/19/16 19:17 06/21/16 06:23 Motrin - PO 400 mg Q6H PRN Administration PAIN Insulin Aspart 1 vial 06/16/16 07:00 06/24/16 10:18 Novolog Vial Sliding Scale - SQ 3 units TIDAC YEISON Administration Protocol Lorazepam 0.5 mg 06/22/16 14:22 Ativan - PO BID PRN ANXIETY Methylprednisolone Sodium Succinate 60 mg 06/22/16 15:10 06/24/16 11:02 Solu-Medrol - IVPB 60 mg QIDR YEISON Administration Nitroglycerin 0.4 mg 06/20/16 11:09 06/20/16 11:35 Nitrostat - SL 0.4 mg Q5M PRN Administration FOR CHEST PAIN Pantoprazole Sodium 40 mg 06/23/16 10:00 06/24/16 09:09 Protonix 40mg Ivpb (Pre-Docked) IVPB 40 mg DAILY YEISON Administration Microbiology 06/22/16 15:00 Blood - Peripheral Venous Blood Culture - Preliminary NO GROWTH OBTAINED AFTER 24 HOURS, INCUBATION TO CONTINUE FOR 4 DAYS. 06/22/16 13:58 Blood - Peripheral Venous Blood Culture - Preliminary NO GROWTH OBTAINED AFTER 24 HOURS, INCUBATION TO CONTINUE FOR 4 DAYS. 06/08/16 13:45 Urine - Urine Mahoney Urine Culture - Final Yeast Like Organism 06/04/16 07:10 Sputum - Endotrachea Suction/Ventilator Gram Stain - Final 06/04/16 07:10 Sputum - Endotrachea Suction/Ventilator Sputum Culture - Final NORMAL RESPIRATORY LAKSHMI 05/30/16 23:30 Blood - Peripheral Venous Blood Culture - Final NO GROWTH AFTER 5 DAYS INCUBATION 05/30/16 21:30 Blood - Peripheral Venous Blood Culture - Final NO GROWTH AFTER 5 DAYS INCUBATION 05/30/16 23:30 Sputum - Endotracheal Suction W/O Vent Gram Stain - Final 05/30/16 23:30 Sputum - Endotracheal Suction W/O Vent Sputum Culture - Final NORMAL RESPIRATORY LAKSHMI 05/30/16 16:54 Urine - Urine - Catheterized Urine Culture - Final NO GROWTH OBTAINED 05/30/16 23:30 Nasopharyngeal Swab Influenza Types A,B Antigen (ANDREW) - Final 05/30/16 23:30 Nasopharyngeal Swab - Final ASSESSMENT/PLAN: acute hypercapneic respiratory failure due to aspiration pneumonia sedated, intubated. will stop fentanyl and but continue with propofol keep spo2 over 90 Nebulizers YEISON and PRN on solumedrom 60 qid on zosyn cxr shows right side infiltrate, and left upper lobe infiltrate blood culture no growth sputum culture pending follow abg in morning ID on case on duoneb neb q6h standing Trop i elevated could be stress induce trend trop i hb 7.3, will give one uint pc on aspirin and lipitor Shock improving could be from aspiration pneumonia on iV fluid NS 42 ml/hr trend lactic acid monitor vitals monitor intake/ output antibiotics as per ID hold blood pressure medication as patient has low bp altered mental status copuld be from metabolic encephalopathy patient sedated and intubated H/O HTN/ afib hold enalapril 5 bid and hold hydralazine 10 tid for low bp on cardiazem 30mg q6h h/o copd on duoneb on solumedrol 60 q6h DM on sliding scale novalog influenza positive completed a course of tamiflue Microcytic anemia HGB stable hb 7.3 will give her one unit pc keep hb> 8 FEN IVF NS follow in am tube feed Prophylaxis DVT: lovenox GI: PPI iv Code status - Full code dispo : admit in icu Visit type - Emergency Visit Emergency Visit: Yes ED Registration Date: 05/30/16 Care time: The patient presented to the Emergency Department on the above date and was hospitalized for further evaluation of their emergent condition. - New Patient This patient is new to me today: No - Critical Care Critical Care patient: Yes Total Critical Care Time (in minutes): 45 Critical Care Statement: The care of this patient involved high complexity decision making to prevent further life threatening deterioration of the patient 's condition and/or to evalute & treat vital organ system(s) failure or risk of failure.
[2016-06-24] MEDS ORDERED: DEXTROSE 5%-NORMAL SALINE 1,000 ML IV SCH (13:51)
[2016-06-24] MEDS ORDERED: SODIUM CHLORIDE 1,000 ML IV STA (13:52)
[2016-06-24] MEDS ORDERED: HEPARIN NA (PORCINE) 5,000 UNITS/ML 1ML VIAL SQ SCH (14:00)
[2016-06-24 15:32] LABS: ARTERIAL BLD GAS O2 SATURATION 91.1 % (90-98.9); ARTERIAL BLOOD GAS BASE EXCESS 2.6 meq/l (-2-2); ARTERIAL BLOOD GAS pH 7.41 (7.35-7.45)
[2016-06-24 15:33] LABS: ALLENS TEST POSITIVE; ART PUNCT SITE RIGHT RADIAL; LPM/O2% 35%; MECH. VENT. Y; PT. ON O2? YES; TYPE OF O2 MECH VENT; VENT RATE 18; VT/PRESS 350
[2016-06-24 15:34] LABS: ARTERIAL BLOOD GAS PO2 63.8 mmHg (70-100)
--- NOTE | 2016-06-24 16:14 | PN ---
Teaching Attending Note Name of Resident: Griffin Bell ATTENDING PHYSICIAN STATEMENT I saw and evaluated the patient. I reviewed the resident's note and discussed the case with the resident. I agree with the resident's findings and plan as documented. SUBJECTIVE: Patient seen and examined in the ICU. Remains intubated and sedated. No pressors. AC mode of vent. CXR: No change in bilateral PNA Intake & Output 06/21/16 06/22/16 06/23/16 06/24/16 23:59 23:59 23:59 23:59 Intake Total 360 2575.1 1170 1560.4 Output Total 500 625 600 Balance 360 2075.1 545 960.4 Weight 129 lb 12.8 oz 130 lb 6.4 oz 124 lb 7 oz 125 lb 8 oz Last Vital Signs Temp Pulse Resp BP Pulse Ox 98.2 F 80 18 102/46 94 L 06/24/16 10:00 06/24/16 11:00 06/24/16 13:53 06/24/16 11:00 06/24/16 11:36 Active Medications Acetaminophen (Tylenol -) 650 mg PO Q4H PRN PRN Reason: FEVER OR PAIN Last Admin: 06/23/16 18:30 Dose: 650 mg Al Hydroxide/Mg Hydroxide (Mylanta Oral Suspension -) 30 ml PO Q8H PRN PRN Reason: INDIGESTION Last Admin: 06/21/16 23:49 Dose: 30 ml Albuterol Sulfate (Ventolin 0.083% Nebulizer Soln -) 1 amp NEB Q4H PRN PRN Reason: SHORT OF BREATH/WHEEZING Albuterol/Ipratropium (Duoneb -) 1 amp NEB QIDR YEISON Last Admin: 06/24/16 11:52 Dose: 1 amp Aspirin (Asa -) 81 mg PO DAILY YEISON Last Admin: 06/24/16 09:10 Dose: 81 mg Atorvastatin Calcium (Lipitor -) 80 mg PO HS YEISON Last Admin: 06/23/16 22:16 Dose: 80 mg Budesonide/Formoterol Fumarate (Symbicort 160/4.5mcg -) 2 puff IH BID YEISON Last Admin: 06/24/16 09:10 Dose: Not Given Chlorhexidine Gluconate (Peridex -) 15 ml MM BID [facility] Diltiazem HCl (Cardizem -) 30 mg PO Q6HPO YEISON Last Admin: 06/24/16 11:02 Dose: 30 mg Enalapril Maleate (Vasotec -) 5 mg PO BID [facility] Last Admin: 06/24/16 09:10 Dose: Not Given Hydralazine HCl (Apresoline -) 10 mg PO TID [facility] Last Admin: 06/24/16 13:28 Dose: Not Given Piperacillin Sod/Tazobactam Sod (Zosyn 3.375gm Ivpb (Pre-Docked)) 50 mls @ 100 mls/hr IVPB Q8H-IV YEISON PRN Reason: Protocol Last Admin: 06/24/16 10:01 Dose: 100 mls/hr Propofol (Diprivan -) 100 mls @ 3.549 mls/hr IVPB TITR YEISON; 10 MCG/KG/MIN PRN Reason: Protocol Last Admin: 06/24/16 13:41 Dose: 14.196 mls/hr Dextrose/Sodium Chloride (D5-Ns -) 1,000 mls @ 100 mls/hr IV ASDIR [facility] Ibuprofen (Motrin -) 400 mg PO Q6H PRN PRN Reason: PAIN Last Admin: 06/21/16 06:23 Dose: 400 mg Insulin Aspart (Novolog Vial Sliding Scale -) 1 vial SQ TIDAC [facility] PRN Reason: Protocol Last Admin: 06/24/16 10:18 Dose: 3 units Lorazepam (Ativan -) 0.5 mg PO BID PRN PRN Reason: ANXIETY Methylprednisolone Sodium Succinate (Solu-Medrol -) 60 mg IVPB QIDR [facility] Last Admin: 06/24/16 11:02 Dose: 60 mg Nitroglycerin (Nitrostat -) 0.4 mg SL Q5M PRN PRN Reason: FOR CHEST PAIN Last Admin: 06/20/16 11:35 Dose: 0.4 mg Pantoprazole Sodium (Protonix 40mg Ivpb (Pre-Docked)) 40 mg IVPB DAILY [facility] Last Admin: 06/24/16 09:09 Dose: 40 mg Constitutional: Yes: Intubated and sedated Eyes: Yes: WNL HENT: Yes: WNL Neck: Yes: Supple Cardiovascular: Yes: Regular Rate and Rhythm, S1, S2 Respiratory: Yes: Scattered Rhonchi Gastrointestinal: Yes: Normal Bowel Sounds, Soft Extremities: Yes: WNL Edema: No Labs: Laboratory Results - last 24 hr 06/23/16 06/24/16 06/24/16 17:04 05:15 05:15 WBC 9.1 D RBC 3.00 L Hgb 7.3 L Hct 22.6 L MCV 75.5 L MCHC 32.2 RDW 28.0 H Plt Count 100 L MPV 9.2 Neutrophils % 91.0 H D Lymphocytes % 4.8 L Monocytes % 4.0 D Eosinophils % 0.0 Basophils % 0.2 Puncture Site ABG pH ABG pCO2 at Pt Temp ABG pO2 at Pt Temp ABG HCO3 ABG O2 Sat (Measured) ABG O2 Content ABG Base Excess Rafi Test O2 Delivery Device Oxygen Flow Rate Vent Mode Vent Rate Mechanical Rate PEEP Pressure Support Vent Sodium 143 Potassium 3.9 Chloride 107 Carbon Dioxide 29 Anion Gap 7 L BUN 37 H Creatinine 0.7 POC Glucometer 241.82524 Random Glucose 272 H D Lactic Acid Calcium 8.1 L Creatine Kinase CK-MB (CK-2) Troponin I Blood Type Antibody Screen Crossmatch Spec Expiration Date 06/24/16 06/24/16 06/24/16 06:23 09:30 09:30 WBC RBC Hgb Hct MCV MCHC RDW Plt Count MPV Neutrophils % Lymphocytes % Monocytes % Eosinophils % Basophils % Puncture Site ABG pH ABG pCO2 at Pt Temp ABG pO2 at Pt Temp ABG HCO3 ABG O2 Sat (Measured) ABG O2 Content ABG Base Excess Rafi Test O2 Delivery Device Oxygen Flow Rate Vent Mode Vent Rate Mechanical Rate PEEP Pressure Support Vent Sodium Potassium Chloride Carbon Dioxide Anion Gap BUN Creatinine POC Glucometer 321.29615 Random Glucose Lactic Acid 2.488 H* Calcium Creatine Kinase 159 D CK-MB (CK-2) 1.756 Troponin I 1.61 H* Blood Type Antibody Screen Crossmatch Spec Expiration Date 06/24/16 06/24/16 06/24/16 10:15 12:30 12:30 WBC RBC Hgb Hct MCV MCHC RDW Plt Count MPV Neutrophils % Lymphocytes % Monocytes % Eosinophils % Basophils % Puncture Site ABG pH ABG pCO2 at Pt Temp ABG pO2 at Pt Temp ABG HCO3 ABG O2 Sat (Measured) ABG O2 Content ABG Base Excess Rafi Test O2 Delivery Device Oxygen Flow Rate Vent Mode Vent Rate Mechanical Rate PEEP Pressure Support Vent Sodium Potassium Chloride Carbon Dioxide Anion Gap BUN Creatinine POC Glucometer 295.08601 Random Glucose Lactic Acid 2.971 H* Calcium Creatine Kinase CK-MB (CK-2) Troponin I Blood Type A POSITIVE Antibody Screen Negative Crossmatch See Detail Spec Expiration Date 06/24/16 15:25 WBC RBC Hgb Hct MCV MCHC RDW Plt Count MPV Neutrophils % Lymphocytes % Monocytes % Eosinophils % Basophils % Puncture Site Right radial ABG pH 7.41 ABG pCO2 at Pt Temp 43.3 ABG pO2 at Pt Temp 63.8 L D ABG HCO3 27.0 H ABG O2 Sat (Measured) 91.1 ABG O2 Content 11.6 L ABG Base Excess 2.6 H Rafi Test Positive O2 Delivery Device Mech vent Oxygen Flow Rate 35% Vent Mode Ac Vent Rate 18 Mechanical Rate Y PEEP 8.0 Pressure Support Vent 350 Sodium Potassium Chloride Carbon Dioxide Anion Gap BUN Creatinine POC Glucometer Random Glucose Lactic Acid Calcium Creatine Kinase CK-MB (CK-2) Troponin I Blood Type Antibody Screen Crossmatch Spec Expiration Date Problem List - Problems (1) Aortic stenosis Code(s): I35.0 - NONRHEUMATIC AORTIC (VALVE) STENOSIS (2) History of PSVT (paroxysmal supraventricular tachycardia) Code(s): Z86.79 - PERSONAL HISTORY OF OTHER DISEASES OF THE CIRCULATORY SYSTEM (3) NSTEMI (non-ST elevated myocardial infarction) Code(s): I21.4 - NON-ST ELEVATION (NSTEMI) MYOCARDIAL INFARCTION (4) Respiratory failure Code(s): J96.90 - RESPIRATORY FAILURE, UNSP, UNSP W HYPOXIA OR HYPERCAPNIA Qualifiers: Chronicity: acute Respiratory failure complication: hypoxia and hypercapnia Qualified Code(s): J96.01 - Acute respiratory failure with hypoxia (5) Pulmonary hypertension Code(s): I27.2 - OTHER SECONDARY PULMONARY HYPERTENSION (6) Pulmonary nodules Code(s): R91.8 - OTHER NONSPECIFIC ABNORMAL FINDING OF LUNG FIELD (7) COPD (chronic obstructive pulmonary disease) Code(s): J44.9 - CHRONIC OBSTRUCTIVE PULMONARY DISEASE, UNSPECIFIED (8) History of cigarette smoking Code(s): Z87.891 - PERSONAL HISTORY OF NICOTINE DEPENDENCE (9) Acute on chronic respiratory failure with hypoxia and hypercapnia Code(s): J96.21 - ACUTE AND CHRONIC RESPIRATORY FAILURE WITH HYPOXIA J96.22 - ACUTE AND CHRONIC RESPIRATORY FAILURE WITH HYPERCAPNIA Assessment/Plan ASSESSMENT AND PLAN: Acute on Chronic Hypoxic and Hypercapneic Respiratory Failure Influenza A s/p treatment Acute COPD Exacerbation CAD +Troponins/Acute NSTEMI Lactic Acidosis resolved 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
--- NOTE | 2016-06-24 19:43 | PN ---
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, Physician History of Present Illness: intubated and sedated - Current Medication List Current Medications: Active Medications Acetaminophen (Tylenol -) 650 mg PO Q4H PRN PRN Reason: FEVER OR PAIN Last Admin: 06/23/16 18:30 Dose: 650 mg Al Hydroxide/Mg Hydroxide (Mylanta Oral Suspension -) 30 ml PO Q8H PRN PRN Reason: INDIGESTION Last Admin: 06/21/16 23:49 Dose: 30 ml Albuterol Sulfate (Ventolin 0.083% Nebulizer Soln -) 1 amp NEB Q4H PRN PRN Reason: SHORT OF BREATH/WHEEZING Albuterol/Ipratropium (Duoneb -) 1 amp NEB QIDR YEISON Last Admin: 06/24/16 18:34 Dose: 1 amp Aspirin (Asa -) 81 mg PO DAILY [facility] Last Admin: 06/24/16 09:10 Dose: 81 mg Atorvastatin Calcium (Lipitor -) 80 mg PO HS [facility] Last Admin: 06/23/16 22:16 Dose: 80 mg Budesonide/Formoterol Fumarate (Symbicort 160/4.5mcg -) 2 puff IH BID [facility] Last Admin: 06/24/16 09:10 Dose: Not Given Chlorhexidine Gluconate (Peridex -) 15 ml MM BID YEISON Diltiazem HCl (Cardizem -) 30 mg PO Q6HPO [facility] Last Admin: 06/24/16 17:40 Dose: 30 mg Enalapril Maleate (Vasotec -) 5 mg PO BID [facility] Last Admin: 06/24/16 09:10 Dose: Not Given Hydralazine HCl (Apresoline -) 10 mg PO TID [facility] Last Admin: 06/24/16 13:28 Dose: Not Given Piperacillin Sod/Tazobactam Sod (Zosyn 3.375gm Ivpb (Pre-Docked)) 50 mls @ 100 mls/hr IVPB Q8H-IV YEISON PRN Reason: Protocol Last Admin: 06/24/16 17:40 Dose: 100 mls/hr Propofol (Diprivan -) 100 mls @ 3.549 mls/hr IVPB TITR YEISON; 10 MCG/KG/MIN PRN Reason: Protocol Last Admin: 06/24/16 13:41 Dose: 14.196 mls/hr Dextrose/Sodium Chloride (D5-Ns -) 1,000 mls @ 100 mls/hr IV ASDIR [facility] Last Admin: 06/24/16 14:00 Dose: 100 mls/hr Ibuprofen (Motrin -) 400 mg PO Q6H PRN PRN Reason: PAIN Last Admin: 06/21/16 06:23 Dose: 400 mg Insulin Aspart (Novolog Vial Sliding Scale -) 1 vial SQ TIDAC YEISON PRN Reason: Protocol Last Admin: 06/24/16 17:40 Dose: 4 units Lorazepam (Ativan -) 0.5 mg PO BID PRN PRN Reason: ANXIETY Methylprednisolone Sodium Succinate (Solu-Medrol -) 60 mg IVPB QIDR [facility] Last Admin: 06/24/16 17:42 Dose: 60 mg Nitroglycerin (Nitrostat -) 0.4 mg SL Q5M PRN PRN Reason: FOR CHEST PAIN Last Admin: 06/20/16 11:35 Dose: 0.4 mg Pantoprazole Sodium (Protonix 40mg Ivpb (Pre-Docked)) 40 mg IVPB DAILY [facility] Last Admin: 06/24/16 09:09 Dose: 40 mg - Objective Vital Signs: Vital Signs Temperature 98.1 F 06/24/16 18:57 Pulse Rate 85 06/24/16 18:57 Respiratory Rate 20 06/24/16 18:57 Blood Pressure 113/46 06/24/16 18:57 O2 Sat by Pulse Oximetry (%) 93 L 06/24/16 16:00 Constitutional: Yes: No Distress HENT: Yes: Atraumatic Neck: Yes: Supple Cardiovascular: Yes: Regular Rate and Rhythm Respiratory: Yes: Rhonchi Gastrointestinal: Yes: Normal Bowel Sounds Extremities: Yes: WNL Neurological: Yes: Alert, Oriented Labs: CBC, BMP 06/24/16 05:15 06/24/16 05:15 INR, PTT INR 1.02 (0.82-1.09) 06/09/16 05:05 Problem List - Problems (1) Respiratory failure Assessment/Plan: intubated aspiration pna pn abx ivsteroids...taper Code(s): J96.90 - RESPIRATORY FAILURE, UNSP, UNSP W HYPOXIA OR HYPERCAPNIA Qualifiers: Chronicity: acute Respiratory failure complication: hypoxia and hypercapnia Qualified Code(s): J96.01 - Acute respiratory failure with hypoxia (2) Chronic respiratory failure with hypoxia Assessment/Plan: see above Code(s): J96.11 - CHRONIC RESPIRATORY FAILURE WITH HYPOXIA (3) CAD (coronary artery disease) Assessment/Plan: on meds follow up labs continue current meds Code(s): I25.10 - ATHSCL HEART DISEASE OF [place] CORONARY ARTERY W/O ANG PCTRS (4) COPD (chronic obstructive pulmonary disease) Code(s): J44.9 - CHRONIC OBSTRUCTIVE PULMONARY DISEASE, UNSPECIFIED (5) Chronic diastolic CHF (congestive heart failure) Code(s): I50.32 - CHRONIC DIASTOLIC (CONGESTIVE) HEART FAILURE (6) HLD (hyperlipidemia) Code(s): E78.5 - HYPERLIPIDEMIA, UNSPECIFIED Qualifiers: Hyperlipidemia type: unspecified Qualified Code(s): E78.5 - Hyperlipidemia, unspecified (7) HTN (hypertension) Code(s): I10 - ESSENTIAL (PRIMARY) HYPERTENSION Qualifiers: Hypertension type: essential hypertension Qualified Code(s): I10 - Essential (primary) hypertension (8) History of cigarette smoking Code(s): Z87.891 - PERSONAL HISTORY OF NICOTINE DEPENDENCE (9) Influenza Code(s): J11.1 - FLU DUE TO UNIDENTIFIED INFLUENZA VIRUS W OTH RESP MANIFEST (10) Acute on chronic respiratory failure with hypoxia and hypercapnia Code(s): J96.21 - ACUTE AND CHRONIC RESPIRATORY FAILURE WITH HYPOXIA J96.22 - ACUTE AND CHRONIC RESPIRATORY FAILURE WITH HYPERCAPNIA (11) History of PSVT (paroxysmal supraventricular tachycardia) Code(s): Z86.79 - PERSONAL HISTORY OF OTHER DISEASES OF THE CIRCULATORY SYSTEM (12) Anemia Assessment/Plan: recieved 1 unit of blood Code(s): D64.9 - ANEMIA, UNSPECIFIED
[2016-06-24] MEDS ORDERED: PROPOFOL 100 ML ONE (20:47)
[2016-06-24] MEDS: CHLORHEXIDINE GLUCONATE 0.12% 15ML CUP MM SCH (21:35)
[2016-06-24] MEDS: ATORVASTATIN CA 80 MG TABLET (FP) PO SCH (21:35)
[2016-06-24] MEDS ORDERED: dilTIAZem HCL 50 MG/10 ML - 10 ML VIAL IVPUSH ONE (23:52)
[2016-06-24] MEDS ORDERED: dilTIAZem HCL 50 MG/10 ML - 10 ML VIAL ONE (23:53)
[2016-06-25] MEDS: dilTIAZem HCL 30 MG TABLET (FP) PO SCH ×4 (00:07→17:49)
[2016-06-25] MEDS: methylPREDNISolone NA SUCC 40 MG/1 ML VIAL IVPB SCH ×5 (00:07→22:23)
[2016-06-25] MEDS: PROPOFOL 100 ML IVPB SCH ×5 (00:08→22:24)
[2016-06-25] MEDS: PIPERACILLIN/TAZOB 3.375 GM 50 ML IVPB SCH ×3 (01:26→17:49)
[2016-06-25] MEDS: ALBUTEROL SO4 2.5/IPRATROPIUM 0.5 INH SOL 3 ML VIAL.NEB. NEB SCH ×4 (06:31→23:39)
[2016-06-25 06:32] LABS: MCH 25.1 pg (25.7-33.7); MCHC 32.5 g/dl (32.0-36.0); MEAN CELL VOLUME 77.2 fl (80-96); MEAN PLT VOLUME 9.4 fl (7.5-11.1); NEUTROPHILS 95.8 % (42.8-82.8); PLATELET COUNT 99 K/MM3 (134-434); RDW 27.9 % (11.6-15.6); WHITE BLOOD COUNT 11.1 K/mm3 (4.0-10.0)
[2016-06-25 06:50] LABS: CALCIUM 7.7 mg/dL (8.5-10.1); COCKROFT - GAULT 63.359; CREATININE 0.7 mg/dL (0.55-1.02)
[2016-06-25] MEDS: hydrALAZINE HCL 10 MG TABLET PO SCH ×3 (06:52→22:38)
[2016-06-25 07:14] LABS: TROPONIN I 0.61 ng/ml (0.00-0.05)
[2016-06-25] MEDS: INSULIN SLIDING SCALE (NOVOLOG) 1 VIAL SQ SCH ×4 (07:21→22:38)
[2016-06-25 07:42] LABS: ARTERIAL BLD GAS O2 SATURATION 94.3 % (90-98.9); ARTERIAL BLOOD GAS BASE EXCESS 1.8 meq/l (-2-2); ARTERIAL BLOOD GAS HCO3 26.5 meq/L (22-26); ARTERIAL BLOOD GAS PO2 74.1 mmHg (70-100); ARTERIAL BLOOD GAS pH 7.39 (7.35-7.45)
[2016-06-25 07:48] LABS: ALLENS TEST POSITIVE; ART PUNCT SITE RIGHT RADIAL; LPM/O2% 40%; MECH. VENT. YES; PT. ON O2? YES; TYPE OF O2 VENTILATOR; VENT RATE 18; VT/PRESS 350
[2016-06-25] MEDS ORDERED: PT OWN MED DRAWER 7, Y5N ONE ×2 (08:56→22:11)
[2016-06-25] MEDS: BUDESONIDE/FORMETEROL FUMARATE 160/4.5 mcg INHALER IH SCH ×2 (09:08→22:23)
[2016-06-25] MEDS: PANTOPRAZOLE SODIUM 40 MG/100 ML PRE-DOCKED IVPB SCH (09:08)
[2016-06-25] MEDS: ASPIRIN 81 MG CHEWABLE TABLETS PO SCH (09:08)
[2016-06-25] MEDS: CHLORHEXIDINE GLUCONATE 0.12% 15ML CUP MM SCH ×2 (09:08→22:23)
--- NOTE | 2016-06-25 10:22 | PN ---
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 (short form) - Note 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: PULMONARY/CCM Pt seen and examiend in the ICU. Remains intubated, sedated. On volume assist control with 40% FiO2 PEEP 8. No fevers recorded. Last Vital Signs Temp Pulse Resp BP Pulse Ox 99.0 F 93 H 30 H 139/61 94 L 06/25/16 08:00 06/25/16 08:00 06/25/16 10:01 06/25/16 08:00 06/25/16 08:00 Intake & Output 06/22/16 06/23/16 06/24/16 06/25/16 23:59 23:59 23:59 23:59 Intake Total 2575.1 1170 4882.4 2500 Output Total 500 625 900 500 Balance 2075.1 545 3982.4 2000 Weight 130 lb 6.4 oz 124 lb 7 oz 125 lb 8 oz 126 lb Gen: intubated, sedated Heart: RRR Lung: scattered rhonchi Abd: soft, nontender Ext: no edema CBC, BMP 06/25/16 05:35 06/25/16 05:35 Active Medications Acetaminophen (Tylenol -) 650 mg PO Q4H PRN PRN Reason: FEVER OR PAIN Last Admin: 06/23/16 18:30 Dose: 650 mg Al Hydroxide/Mg Hydroxide (Mylanta Oral Suspension -) 30 ml PO Q8H PRN PRN Reason: INDIGESTION Last Admin: 06/21/16 23:49 Dose: 30 ml Albuterol Sulfate (Ventolin 0.083% Nebulizer Soln -) 1 amp NEB Q4H PRN PRN Reason: SHORT OF BREATH/WHEEZING Albuterol/Ipratropium (Duoneb -) 1 amp NEB QIDR [facility] Last Admin: 06/25/16 06:31 Dose: 1 amp Aspirin (Asa -) 81 mg PO DAILY [facility] Last Admin: 06/25/16 09:08 Dose: 81 mg Atorvastatin Calcium (Lipitor -) 80 mg PO HS [facility] Last Admin: 06/24/16 21:35 Dose: 80 mg Budesonide/Formoterol Fumarate (Symbicort 160/4.5mcg -) 2 puff IH BID [facility] Last Admin: 06/25/16 09:08 Dose: Not Given Chlorhexidine Gluconate (Peridex -) 15 ml MM BID [facility] Last Admin: 06/25/16 09:08 Dose: 15 ml Diltiazem HCl (Cardizem -) 30 mg PO Q6HPO [facility] Last Admin: 06/25/16 06:52 Dose: 30 mg Diltiazem HCl (Cardizem Injection -) 10 mg IVPUSH Q4H PRN PRN Reason: TACHYCARDIA Enalapril Maleate (Vasotec -) 5 mg PO BID [facility] Last Admin: 06/24/16 21:35 Dose: Not Given Hydralazine HCl (Apresoline -) 10 mg PO TID [facility] Last Admin: 06/25/16 06:52 Dose: 10 mg Piperacillin Sod/Tazobactam Sod (Zosyn 3.375gm Ivpb (Pre-Docked)) 50 mls @ 100 mls/hr IVPB Q8H-IV [facility] PRN Reason: Protocol Last Admin: 06/25/16 09:08 Dose: 100 mls/hr Propofol (Diprivan -) 100 mls @ 3.549 mls/hr IVPB TITR [facility]; 10 MCG/KG/MIN PRN Reason: Protocol Last Admin: 06/25/16 09:06 Dose: 17.744 mls/hr Dextrose/Sodium Chloride (D5-Ns -) 1,000 mls @ 100 mls/hr IV ASDIR [facility] Last Admin: 06/24/16 14:00 Dose: 100 mls/hr Ibuprofen (Motrin -) 400 mg PO Q6H PRN PRN Reason: PAIN Last Admin: 06/21/16 06:23 Dose: 400 mg Insulin Aspart (Novolog Vial Sliding Scale -) 1 vial SQ TIDAC [facility] PRN Reason: Protocol Last Admin: 06/25/16 07:21 Dose: 6 units Lorazepam (Ativan -) 0.5 mg PO BID PRN PRN Reason: ANXIETY Methylprednisolone Sodium Succinate (Solu-Medrol -) 60 mg IVPB QIDR [facility] Last Admin: 06/25/16 06:52 Dose: 60 mg Nitroglycerin (Nitrostat -) 0.4 mg SL Q5M PRN PRN Reason: FOR CHEST PAIN Last Admin: 06/20/16 11:35 Dose: 0.4 mg Pantoprazole Sodium (Protonix 40mg Ivpb (Pre-Docked)) 40 mg IVPB DAILY [facility] Last Admin: 06/25/16 09:08 Dose: 40 mg A/P Acute on Chronic Hypoxic and Hypercapneic Respiratory Failure improving Influenza A s/p treatment Pneumonia - ?Aspiration Acute COPD Exacerbation CAD +Troponins/Acute NSTEMI 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
[2016-06-25] MEDS: ENALAPRIL MALEATE 5 MG TABLET (FP) PO SCH ×2 (10:51→22:24)
--- NOTE | 2016-06-25 11:30 | PN ---
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, Physician History of Present Illness: seen and examined today in nad. intubated, sedated, mechanically ventilated. minimally responsive. - Current Medication List Current Medications: Active Medications Acetaminophen (Tylenol -) 650 mg PO Q4H PRN PRN Reason: FEVER OR PAIN Last Admin: 06/23/16 18:30 Dose: 650 mg Al Hydroxide/Mg Hydroxide (Mylanta Oral Suspension -) 30 ml PO Q8H PRN PRN Reason: INDIGESTION Last Admin: 06/21/16 23:49 Dose: 30 ml Albuterol Sulfate (Ventolin 0.083% Nebulizer Soln -) 1 amp NEB Q4H PRN PRN Reason: SHORT OF BREATH/WHEEZING Albuterol/Ipratropium (Duoneb -) 1 amp NEB QIDR [facility] Last Admin: 06/25/16 06:31 Dose: 1 amp Aspirin (Asa -) 81 mg PO DAILY [facility] Last Admin: 06/25/16 09:08 Dose: 81 mg Atorvastatin Calcium (Lipitor -) 80 mg PO HS [facility] Last Admin: 06/24/16 21:35 Dose: 80 mg Budesonide/Formoterol Fumarate (Symbicort 160/4.5mcg -) 2 puff IH BID [facility] Last Admin: 06/25/16 09:08 Dose: Not Given Chlorhexidine Gluconate (Peridex -) 15 ml MM BID [facility] Last Admin: 06/25/16 09:08 Dose: 15 ml Diltiazem HCl (Cardizem -) 30 mg PO Q6HPO [facility] Last Admin: 06/25/16 06:52 Dose: 30 mg Diltiazem HCl (Cardizem Injection -) 10 mg IVPUSH Q4H PRN PRN Reason: TACHYCARDIA Enalapril Maleate (Vasotec -) 5 mg PO BID [facility] Last Admin: 06/25/16 10:51 Dose: 5 mg Hydralazine HCl (Apresoline -) 10 mg PO TID [facility] Last Admin: 06/25/16 06:52 Dose: 10 mg Piperacillin Sod/Tazobactam Sod (Zosyn 3.375gm Ivpb (Pre-Docked)) 50 mls @ 100 mls/hr IVPB Q8H-IV [facility] PRN Reason: Protocol Last Admin: 06/25/16 09:08 Dose: 100 mls/hr Propofol (Diprivan -) 100 mls @ 3.549 mls/hr IVPB TITR [facility]; 10 MCG/KG/MIN PRN Reason: Protocol Last Admin: 06/25/16 09:06 Dose: 17.744 mls/hr Ibuprofen (Motrin -) 400 mg PO Q6H PRN PRN Reason: PAIN Last Admin: 06/21/16 06:23 Dose: 400 mg Insulin Aspart (Novolog Vial Sliding Scale -) 1 vial SQ TIDAC [facility] PRN Reason: Protocol Last Admin: 06/25/16 07:21 Dose: 6 units Lorazepam (Ativan -) 0.5 mg PO BID PRN PRN Reason: ANXIETY Methylprednisolone Sodium Succinate (Solu-Medrol -) 60 mg IVPB QID [facility] Nitroglycerin (Nitrostat -) 0.4 mg SL Q5M PRN PRN Reason: FOR CHEST PAIN Last Admin: 06/20/16 11:35 Dose: 0.4 mg Pantoprazole Sodium (Protonix 40mg Ivpb (Pre-Docked)) 40 mg IVPB DAILY [facility] Last Admin: 06/25/16 09:08 Dose: 40 mg - Objective Vital Signs: Vital Signs Temperature 99.4 F 06/25/16 10:00 Pulse Rate 92 H 06/25/16 10:00 Respiratory Rate 30 H 06/25/16 10:01 Blood Pressure 144/62 06/25/16 10:00 O2 Sat by Pulse Oximetry (%) 94 L 06/25/16 08:00 Constitutional: Yes: No Distress, Calm HENT: Yes: Atraumatic, Normocephalic Neck: Yes: Supple, Trachea Midline Cardiovascular: Yes: Regular Rate and Rhythm, S1, S2. No: Bradycardia, Tachycardia, Pulse Irregular, Bruit, JVD, Gallop, Murmur, Rub, S3, S4, Varicosities Respiratory: Yes: Regular, Diminished, Intubated, Mechanically Ventilated, Rhonchi. No: Rales, Wheezes Gastrointestinal: Yes: WNL, Normal Bowel Sounds, Soft. No: Distention, Tenderness Musculoskeletal: Yes: Other (unable to assess) Extremities: Yes: WNL Edema: No Peripheral Pulses WNL: Yes Peripheral Pulses: Left Doralis Pedis: 2+, Right Dorsalis Pedis: 2+ Integumentary: Yes: WNL Neurological: Yes: WNL, Alert, Oriented, Cran Nerves II-XII Intact ...Motor Strength: WNL Psychiatric: Yes: WNL, Alert, Oriented Labs: CBC, BMP 06/25/16 05:35 06/25/16 05:35 INR, PTT INR 1.02 (0.82-1.09) 06/09/16 05:05 - ....Imaging Chest X-ray: Report Reviewed, Image Reviewed EKG: Report Reviewed, Image Reviewed Other: Report Reviewed, Image Reviewed (tele-nsr, sinus tach, PSVT, short NSVT) Assessment/Plan Recurrent acute respiratory failure requiring re-intubation, refused trach first intubation Bilateral PNA Anemia PSVT NSVT CAD s/p NSTEMI Mild COPD REC: Cont Vent support as per [facility] Abx as per [facility] Cont ASA for now, monitor H/H Has refused cardiac cath on multiple occasions Cont Cardizem for PSVT
--- NOTE | 2016-06-25 14:49 | PN ---
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, Physician History of Present Illness: still intubated and sedated patient moving around stable no new events - Current Medication List Current Medications: Active Medications Acetaminophen (Tylenol -) 650 mg PO Q4H PRN PRN Reason: FEVER OR PAIN Last Admin: 06/23/16 18:30 Dose: 650 mg Al Hydroxide/Mg Hydroxide (Mylanta Oral Suspension -) 30 ml PO Q8H PRN PRN Reason: INDIGESTION Last Admin: 06/21/16 23:49 Dose: 30 ml Albuterol Sulfate (Ventolin 0.083% Nebulizer Soln -) 1 amp NEB Q4H PRN PRN Reason: SHORT OF BREATH/WHEEZING Albuterol/Ipratropium (Duoneb -) 1 amp NEB QIDR [facility] Last Admin: 06/25/16 12:22 Dose: 1 amp Aspirin (Asa -) 81 mg PO DAILY [facility] Last Admin: 06/25/16 09:08 Dose: 81 mg Atorvastatin Calcium (Lipitor -) 80 mg PO HS [facility] Last Admin: 06/24/16 21:35 Dose: 80 mg Budesonide/Formoterol Fumarate (Symbicort 160/4.5mcg -) 2 puff IH BID [facility] Last Admin: 06/25/16 09:08 Dose: Not Given Chlorhexidine Gluconate (Peridex -) 15 ml MM BID [facility] Last Admin: 06/25/16 09:08 Dose: 15 ml Diltiazem HCl (Cardizem -) 30 mg PO Q6HPO [facility] Last Admin: 06/25/16 11:45 Dose: 30 mg Diltiazem HCl (Cardizem Injection -) 10 mg IVPUSH Q4H PRN PRN Reason: TACHYCARDIA Enalapril Maleate (Vasotec -) 5 mg PO BID [facility] Last Admin: 06/25/16 10:51 Dose: 5 mg Hydralazine HCl (Apresoline -) 10 mg PO TID [facility] Last Admin: 06/25/16 13:14 Dose: 10 mg Piperacillin Sod/Tazobactam Sod (Zosyn 3.375gm Ivpb (Pre-Docked)) 50 mls @ 100 mls/hr IVPB Q8H-IV [facility] PRN Reason: Protocol Last Admin: 06/25/16 09:08 Dose: 100 mls/hr Propofol (Diprivan -) 100 mls @ 3.549 mls/hr IVPB TITR [facility]; 10 MCG/KG/MIN PRN Reason: Protocol Last Admin: 06/25/16 13:14 Dose: 17.744 mls/hr Ibuprofen (Motrin -) 400 mg PO Q6H PRN PRN Reason: PAIN Last Admin: 06/21/16 06:23 Dose: 400 mg Insulin Aspart (Novolog Vial Sliding Scale -) 1 vial SQ TIDAC [facility] PRN Reason: Protocol Last Admin: 06/25/16 12:21 Dose: 5 units Methylprednisolone Sodium Succinate (Solu-Medrol -) 60 mg IVPB QID [facility] Last Admin: 06/25/16 11:46 Dose: 60 mg Nitroglycerin (Nitrostat -) 0.4 mg SL Q5M PRN PRN Reason: FOR CHEST PAIN Last Admin: 06/20/16 11:35 Dose: 0.4 mg Pantoprazole Sodium (Protonix 40mg Ivpb (Pre-Docked)) 40 mg IVPB DAILY [facility] Last Admin: 06/25/16 09:08 Dose: 40 mg - Objective Vital Signs: Vital Signs Temperature 99.6 F 06/25/16 11:58 Pulse Rate 88 06/25/16 11:58 Respiratory Rate 26 H 06/25/16 14:32 Blood Pressure 134/57 06/25/16 11:58 O2 Sat by Pulse Oximetry (%) 95 06/25/16 11:48 Constitutional: Yes: Calm, Other Cardiovascular: Yes: Regular Rate and Rhythm Respiratory: Yes: Regular, Intubated, Mechanically Ventilated, Rhonchi Gastrointestinal: Yes: Normal Bowel Sounds, Soft Musculoskeletal: Yes: WNL Extremities: Yes: WNL Integumentary: Yes: WNL Neurological: Yes: Other Labs: CBC, BMP 06/25/16 05:35 06/25/16 05:35 INR, PTT INR 1.02 (0.82-1.09) 06/09/16 05:05 - ....Imaging Chest X-ray: Report Reviewed, Image Reviewed Assessment/Plan Problem List - Problems (1) Aortic stenosis Code(s): I35.0 - NONRHEUMATIC AORTIC (VALVE) STENOSIS (2) History of PSVT (paroxysmal supraventricular tachycardia) Code(s): Z86.79 - PERSONAL HISTORY OF OTHER DISEASES OF THE CIRCULATORY SYSTEM (3) NSTEMI (non-ST elevated myocardial infarction) Code(s): I21.4 - NON-ST ELEVATION (NSTEMI) MYOCARDIAL INFARCTION (4) Respiratory failure Code(s): J96.90 - RESPIRATORY FAILURE, UNSP, UNSP W HYPOXIA OR HYPERCAPNIA Qualifiers: Chronicity: acute Respiratory failure complication: hypoxia and hypercapnia Qualified Code(s): J96.01 - Acute respiratory failure with hypoxia (5) Pulmonary hypertension Code(s): I27.2 - OTHER SECONDARY PULMONARY HYPERTENSION (6) Pulmonary nodules Code(s): R91.8 - OTHER NONSPECIFIC ABNORMAL FINDING OF LUNG FIELD (7) COPD (chronic obstructive pulmonary disease) Code(s): J44.9 - CHRONIC OBSTRUCTIVE PULMONARY DISEASE, UNSPECIFIED (8) History of cigarette smoking Code(s): Z87.891 - PERSONAL HISTORY OF NICOTINE DEPENDENCE (9) Acute on chronic respiratory failure with hypoxia and hypercapnia Code(s): J96.21 - ACUTE AND CHRONIC RESPIRATORY FAILURE WITH HYPOXIA J96.22 - ACUTE AND CHRONIC RESPIRATORY FAILURE WITH HYPERCAPNIAEPENDENCE +Troponins/Acute NSTEMI Lactic Acidosis h/o Breast Ca 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
[2016-06-25] MEDS: dilTIAZem HCL 50 MG/10 ML - 10 ML VIAL IVPUSH PRN ×2 (19:45→23:30)
--- NOTE | 2016-06-25 21:01 | PN ---
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, Physician History of Present Illness: intubated and sedated f - Current Medication List Current Medications: Active Medications Acetaminophen (Tylenol -) 650 mg PO Q4H PRN PRN Reason: FEVER OR PAIN Last Admin: 06/23/16 18:30 Dose: 650 mg Al Hydroxide/Mg Hydroxide (Mylanta Oral Suspension -) 30 ml PO Q8H PRN PRN Reason: INDIGESTION Last Admin: 06/21/16 23:49 Dose: 30 ml Albuterol Sulfate (Ventolin 0.083% Nebulizer Soln -) 1 amp NEB Q4H PRN PRN Reason: SHORT OF BREATH/WHEEZING Albuterol/Ipratropium (Duoneb -) 1 amp NEB QIDR [facility] Last Admin: 06/25/16 18:58 Dose: 1 amp Aspirin (Asa -) 81 mg PO DAILY [facility] Last Admin: 06/25/16 09:08 Dose: 81 mg Atorvastatin Calcium (Lipitor -) 80 mg PO HS [facility] Last Admin: 06/24/16 21:35 Dose: 80 mg Budesonide/Formoterol Fumarate (Symbicort 160/4.5mcg -) 2 puff IH BID [facility] Last Admin: 06/25/16 09:08 Dose: Not Given Chlorhexidine Gluconate (Peridex -) 15 ml MM BID [facility] Last Admin: 06/25/16 09:08 Dose: 15 ml Diltiazem HCl (Cardizem -) 30 mg PO Q6HPO [facility] Last Admin: 06/25/16 17:49 Dose: 30 mg Diltiazem HCl (Cardizem Injection -) 10 mg IVPUSH Q4H PRN PRN Reason: TACHYCARDIA Enalapril Maleate (Vasotec -) 5 mg PO BID [facility] Last Admin: 06/25/16 10:51 Dose: 5 mg Hydralazine HCl (Apresoline -) 10 mg PO TID [facility] Last Admin: 06/25/16 13:14 Dose: 10 mg Piperacillin Sod/Tazobactam Sod (Zosyn 3.375gm Ivpb (Pre-Docked)) 50 mls @ 100 mls/hr IVPB Q8H-IV [facility] PRN Reason: Protocol Last Admin: 06/25/16 17:49 Dose: 100 mls/hr Propofol (Diprivan -) 100 mls @ 3.549 mls/hr IVPB TITR [facility]; 10 MCG/KG/MIN PRN Reason: Protocol Last Admin: 06/25/16 13:14 Dose: 17.744 mls/hr Ibuprofen (Motrin -) 400 mg PO Q6H PRN PRN Reason: PAIN Last Admin: 06/21/16 06:23 Dose: 400 mg Insulin Aspart (Novolog Vial Sliding Scale -) 1 vial SQ TIDAC [facility] PRN Reason: Protocol Last Admin: 06/25/16 17:25 Dose: 5 units Methylprednisolone Sodium Succinate (Solu-Medrol -) 60 mg IVPB QID [facility] Last Admin: 06/25/16 17:49 Dose: 60 mg Nitroglycerin (Nitrostat -) 0.4 mg SL Q5M PRN PRN Reason: FOR CHEST PAIN Last Admin: 06/20/16 11:35 Dose: 0.4 mg Pantoprazole Sodium (Protonix 40mg Ivpb (Pre-Docked)) 40 mg IVPB DAILY [facility] Last Admin: 06/25/16 09:08 Dose: 40 mg - Objective Vital Signs: Vital Signs Temperature 100.4 F H 06/25/16 18:00 Pulse Rate 89 06/25/16 18:00 Respiratory Rate 26 H 06/25/16 18:57 Blood Pressure 124/56 06/25/16 18:00 O2 Sat by Pulse Oximetry (%) 95 06/25/16 11:48 Constitutional: Yes: No Distress HENT: Yes: Atraumatic Neck: Yes: Supple Cardiovascular: Yes: Regular Rate and Rhythm Respiratory: Yes: Rhonchi Gastrointestinal: Yes: Normal Bowel Sounds Extremities: Yes: WNL Neurological: Yes: Alert, Oriented Labs: CBC, BMP 06/25/16 05:35 06/25/16 05:35 INR, PTT INR 1.02 (0.82-1.09) 06/09/16 05:05 Problem List - Problems (1) Respiratory failure Assessment/Plan: pt is intubated apiration pna on abx on steroids Code(s): J96.90 - RESPIRATORY FAILURE, UNSP, UNSP W HYPOXIA OR HYPERCAPNIA Qualifiers: Chronicity: acute Respiratory failure complication: hypoxia and hypercapnia Qualified Code(s): J96.01 - Acute respiratory failure with hypoxia (2) Chronic respiratory failure with hypoxia Assessment/Plan: see above Code(s): J96.11 - CHRONIC RESPIRATORY FAILURE WITH HYPOXIA (3) CAD (coronary artery disease) Assessment/Plan: on meds follow up labs continue current meds Code(s): I25.10 - ATHSCL HEART DISEASE OF [place] CORONARY ARTERY W/O ANG PCTRS (4) COPD (chronic obstructive pulmonary disease) Assessment/Plan: on meds stable Code(s): J44.9 - CHRONIC OBSTRUCTIVE PULMONARY DISEASE, UNSPECIFIED (5) Chronic diastolic CHF (congestive heart failure) Code(s): I50.32 - CHRONIC DIASTOLIC (CONGESTIVE) HEART FAILURE (6) HLD (hyperlipidemia) Code(s): E78.5 - HYPERLIPIDEMIA, UNSPECIFIED Qualifiers: Hyperlipidemia type: unspecified Qualified Code(s): E78.5 - Hyperlipidemia, unspecified (7) HTN (hypertension) Code(s): I10 - ESSENTIAL (PRIMARY) HYPERTENSION Qualifiers: Hypertension type: essential hypertension Qualified Code(s): I10 - Essential (primary) hypertension (8) History of cigarette smoking Code(s): Z87.891 - PERSONAL HISTORY OF NICOTINE DEPENDENCE (9) Influenza Code(s): J11.1 - FLU DUE TO UNIDENTIFIED INFLUENZA VIRUS W OTH RESP MANIFEST (10) Acute on chronic respiratory failure with hypoxia and hypercapnia Code(s): J96.21 - ACUTE AND CHRONIC RESPIRATORY FAILURE WITH HYPOXIA J96.22 - ACUTE AND CHRONIC RESPIRATORY FAILURE WITH HYPERCAPNIA (11) History of PSVT (paroxysmal supraventricular tachycardia) Code(s): Z86.79 - PERSONAL HISTORY OF OTHER DISEASES OF THE CIRCULATORY SYSTEM (12) Anemia Assessment/Plan: recieved 1 unit of blood improved Code(s): D64.9 - ANEMIA, UNSPECIFIED Assessment/Plan 1.+Influenza treated 2.Acute respiratory failure IN ICU NOW ON BIPAP RLL INFILTERATE ON ABX AND DUO NEBS duo nebs 3.ANEMIA STABLE 4.NSTEMI 5.History breast cancer, lung mass with negative bx 6.COPD, chronic with chronic hypoxemia 7.chf STABLE PT EVAL CC 30 MIN
[2016-06-25] MEDS ORDERED: PROPOFOL 100 ML ONE (22:09)
[2016-06-25] MEDS: ATORVASTATIN CA 80 MG TABLET (FP) PO SCH (22:23)
[2016-06-26] MEDS: dilTIAZem HCL 30 MG TABLET (FP) PO SCH ×2 (00:19→06:40)
[2016-06-26] MEDS: PROPOFOL 100 ML IVPB SCH ×4 (00:45→13:57)
[2016-06-26] MEDS: PIPERACILLIN/TAZOB 3.375 GM 50 ML IVPB SCH ×3 (02:00→17:11)
[2016-06-26 06:19] LABS: BASOPHIL 0.1 % (0-2.0); EOSINOPHIL 0.1 % (0-4.5); MCH 24.4 pg (25.7-33.7); MCHC 31.6 g/dl (32.0-36.0); MEAN CELL VOLUME 77.3 fl (80-96); MEAN PLT VOLUME 9.2 fl (7.5-11.1); NEUTROPHILS 94.3 % (42.8-82.8); PLATELET COUNT 93 K/MM3 (134-434); RDW 27.8 % (11.6-15.6); WHITE BLOOD COUNT 12.9 K/mm3 (4.0-10.0)
[2016-06-26] MEDS: INSULIN SLIDING SCALE (NOVOLOG) 1 VIAL SQ SCH ×4 (06:40→22:00)
[2016-06-26] MEDS: hydrALAZINE HCL 10 MG TABLET PO SCH ×3 (06:40→22:00)
[2016-06-26 06:42] LABS: ALBUMIN 1.3 g/dl (3.4-5.0); ALK PHOS 93 U/L (45-117); ANION GAP 6 (8-16); BILIRUBIN,TOTAL 0.2 mg/dL (0.2-1.0); CALCIUM 8.2 mg/dL (8.5-10.1); CO2 32 mmol/L (21-32); COCKROFT - GAULT 111.3245; CREATININE 0.4 mg/dL (0.55-1.02); GLUCOSE,RANDOM 276 mg/dL (74-106); MAGNESIUM 2.5 mg/dL (1.8-2.4); PHOSPHOROUS 2.2 mg/dL (2.5-4.9); SGOT/AST 63 U/L (15-37); SGPT/ALT 37 U/L (12-78); TOT PROT 4.5 g/dl (6.4-8.2)
[2016-06-26] MEDS: ALBUTEROL SO4 2.5/IPRATROPIUM 0.5 INH SOL 3 ML VIAL.NEB. NEB SCH ×3 (06:54→19:21)
[2016-06-26 07:42] LABS: ARTERIAL BLD GAS O2 SATURATION 96.8 % (90-98.9); ARTERIAL BLOOD GAS BASE EXCESS 3.6 meq/l (-2-2); ARTERIAL BLOOD GAS HCO3 28.2 meq/L (22-26); ARTERIAL BLOOD GAS PO2 83.1 mmHg (70-100)
[2016-06-26 07:48] LABS: ALLENS TEST POSITIVE; ART PUNCT SITE RIGHT RADIAL; LPM/O2% 40%; MECH. VENT. ESPRIT; PT. ON O2? YES; TYPE OF O2 MEC.VENT; VENT RATE 18; VT/PRESS 350
[2016-06-26] MEDS: PANTOPRAZOLE SODIUM 40 MG/100 ML PRE-DOCKED IVPB SCH (09:16)
[2016-06-26] MEDS: methylPREDNISolone NA SUCC 40 MG/1 ML VIAL IVPB SCH ×3 (09:17→21:00)
[2016-06-26] MEDS: BUDESONIDE/FORMETEROL FUMARATE 160/4.5 mcg INHALER IH SCH ×2 (09:27→23:08)
[2016-06-26] MEDS: CHLORHEXIDINE GLUCONATE 0.12% 15ML CUP MM SCH ×2 (09:30→22:00)
[2016-06-26] MEDS: ASPIRIN 81 MG CHEWABLE TABLETS PO SCH (09:30)
[2016-06-26] MEDS: ENALAPRIL MALEATE 5 MG TABLET (FP) PO SCH ×2 (09:30→22:00)
--- NOTE | 2016-06-26 09:34 | PN ---
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, Physician History of Present Illness: seen and examined today in nad. intubated, sedated, mechanically ventilated, minimally responsive. no overnight events. - Current Medication List Current Medications: Active Medications Acetaminophen (Tylenol -) 650 mg PO Q4H PRN PRN Reason: FEVER OR PAIN Last Admin: 06/23/16 18:30 Dose: 650 mg Al Hydroxide/Mg Hydroxide (Mylanta Oral Suspension -) 30 ml PO Q8H PRN PRN Reason: INDIGESTION Last Admin: 06/21/16 23:49 Dose: 30 ml Albuterol Sulfate (Ventolin 0.083% Nebulizer Soln -) 1 amp NEB Q4H PRN PRN Reason: SHORT OF BREATH/WHEEZING Albuterol/Ipratropium (Duoneb -) 1 amp NEB QIDR [facility] Last Admin: 06/26/16 06:54 Dose: 1 amp Aspirin (Asa -) 81 mg PO DAILY [facility] Last Admin: 06/26/16 09:30 Dose: 81 mg Atorvastatin Calcium (Lipitor -) 80 mg PO HS [facility] Last Admin: 06/25/16 22:23 Dose: 80 mg Budesonide/Formoterol Fumarate (Symbicort 160/4.5mcg -) 2 puff IH BID [facility] Last Admin: 06/26/16 09:27 Dose: Not Given Chlorhexidine Gluconate (Peridex -) 15 ml MM BID [facility] Last Admin: 06/26/16 09:30 Dose: 15 ml Diltiazem HCl (Cardizem Injection -) 10 mg IVPUSH Q4H PRN PRN Reason: TACHYCARDIA Last Admin: 06/25/16 23:30 Dose: 10 mg Diltiazem HCl (Cardizem -) 60 mg PO Q6HPO [facility] Enalapril Maleate (Vasotec -) 5 mg PO BID [facility] Last Admin: 06/26/16 09:30 Dose: 5 mg Hydralazine HCl (Apresoline -) 10 mg PO TID [facility] Last Admin: 06/26/16 06:40 Dose: 10 mg Piperacillin Sod/Tazobactam Sod (Zosyn 3.375gm Ivpb (Pre-Docked)) 50 mls @ 100 mls/hr IVPB Q8H-IV [facility] PRN Reason: Protocol Last Admin: 06/26/16 09:17 Dose: 100 mls/hr Propofol (Diprivan -) 100 mls @ 3.549 mls/hr IVPB TITR [facility]; 10 MCG/KG/MIN PRN Reason: Protocol Last Admin: 06/26/16 09:24 Dose: 17.744 mls/hr Ibuprofen (Motrin -) 400 mg PO Q6H PRN PRN Reason: PAIN Last Admin: 06/21/16 06:23 Dose: 400 mg Insulin Aspart (Novolog Vial Sliding Scale -) 1 vial SQ ACHS [facility] PRN Reason: Protocol Last Admin: 06/26/16 06:40 Dose: 10 units Methylprednisolone Sodium Succinate (Solu-Medrol -) 60 mg IVPB QID [facility] Last Admin: 06/26/16 09:17 Dose: 60 mg Nitroglycerin (Nitrostat -) 0.4 mg SL Q5M PRN PRN Reason: FOR CHEST PAIN Last Admin: 06/20/16 11:35 Dose: 0.4 mg Pantoprazole Sodium (Protonix 40mg Ivpb (Pre-Docked)) 40 mg IVPB DAILY [facility] Last Admin: 06/26/16 09:16 Dose: 40 mg - Objective Vital Signs: Vital Signs Temperature 97.9 F 06/26/16 08:00 Pulse Rate 78 06/26/16 08:00 Respiratory Rate 26 H 06/26/16 08:00 Blood Pressure 126/51 06/26/16 08:00 O2 Sat by Pulse Oximetry (%) 96 06/26/16 08:00 Constitutional: Yes: Well Nourished, No Distress, Calm Eyes: Yes: Conjunctiva Clear HENT: Yes: Atraumatic, Normocephalic Neck: Yes: Supple, Trachea Midline Cardiovascular: Yes: Regular Rate and Rhythm, Murmur, S1, S2. No: Bradycardia, Tachycardia, Pulse Irregular, Bruit, JVD, Gallop, Rub, S3, S4, Varicosities Respiratory: Yes: Regular, Diminished, Intubated, Mechanically Ventilated, Rhonchi. No: Rales, Wheezes Gastrointestinal: Yes: Normal Bowel Sounds, Soft. No: Distention, Tenderness Extremities: Yes: WNL Edema: No Peripheral Pulses WNL: Yes Peripheral Pulses: Left Doralis Pedis: 2+, Right Dorsalis Pedis: 2+ Integumentary: Yes: WNL Neurological: No: Alert, Oriented Psychiatric: No: Alert, Oriented Labs: CBC, BMP 06/26/16 05:25 06/26/16 05:25 INR, PTT INR 1.02 (0.82-1.09) 06/09/16 05:05 - ....Imaging Chest X-ray: Report Reviewed, Image Reviewed EKG: Report Reviewed, Image Reviewed Other: Report Reviewed, Image Reviewed (tele-nsr, multiple episodes of PSVT) Assessment/Plan Recurrent acute respiratory failure requiring re-intubation, refused trach first intubation Bilateral PNA Anemia PSVT NSVT CAD s/p NSTEMI Mild COPD REC: Cont Vent support as per CCM Abx as per CCM Cont ASA for now, monitor H/H Has refused cardiac cath on multiple occasions will increase cardizem to 60mg q6h for improved PSVT control, cannot use cardizem cd via OG tube
--- NOTE | 2016-06-26 10:00 | PN ---
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 (short form) - Note 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: PULMONARY/CCM Pt seen and examiend in the ICU. Remains intubated, sedated. On volume assist control with 40% FiO2 PEEP 8. Low grade temps overnight. Last Vital Signs Temp Pulse Resp BP Pulse Ox 97.9 F 78 28 H 126/51 96 06/26/16 08:00 06/26/16 08:00 06/26/16 09:52 06/26/16 08:00 06/26/16 08:00 Intake & Output 06/23/16 06/24/16 06/25/16 06/26/16 23:59 23:59 23:59 23:59 Intake Total 1170 4882.4 4929 1265.2 Output Total 788 064 0338 550 Balance 545 3982.4 3429 715.2 Weight 124 lb 7 oz 125 lb 8 oz 126 lb 127 lb 6.4 oz Gen: intubated, sedated Heart: RRR Lung: scattered rhonchi Abd: soft, nontender Ext: no edema CBC, BMP 06/26/16 05:25 06/26/16 05:25 Active Medications Acetaminophen (Tylenol -) 650 mg PO Q4H PRN PRN Reason: FEVER OR PAIN Last Admin: 06/23/16 18:30 Dose: 650 mg Al Hydroxide/Mg Hydroxide (Mylanta Oral Suspension -) 30 ml PO Q8H PRN PRN Reason: INDIGESTION Last Admin: 06/21/16 23:49 Dose: 30 ml Albuterol Sulfate (Ventolin 0.083% Nebulizer Soln -) 1 amp NEB Q4H PRN PRN Reason: SHORT OF BREATH/WHEEZING Albuterol/Ipratropium (Duoneb -) 1 amp NEB QIDR [facility] Last Admin: 06/26/16 06:54 Dose: 1 amp Aspirin (Asa -) 81 mg PO DAILY [facility] Last Admin: 06/26/16 09:30 Dose: 81 mg Atorvastatin Calcium (Lipitor -) 80 mg PO HS [facility] Last Admin: 06/25/16 22:23 Dose: 80 mg Budesonide/Formoterol Fumarate (Symbicort 160/4.5mcg -) 2 puff IH BID [facility] Last Admin: 06/26/16 09:27 Dose: Not Given Chlorhexidine Gluconate (Peridex -) 15 ml MM BID [facility] Last Admin: 06/26/16 09:30 Dose: 15 ml Diltiazem HCl (Cardizem Injection -) 10 mg IVPUSH Q4H PRN PRN Reason: TACHYCARDIA Last Admin: 06/25/16 23:30 Dose: 10 mg Diltiazem HCl (Cardizem -) 60 mg PO Q6HPO [facility] Enalapril Maleate (Vasotec -) 5 mg PO BID [facility] Last Admin: 06/26/16 09:30 Dose: 5 mg Hydralazine HCl (Apresoline -) 10 mg PO TID [facility] Last Admin: 06/26/16 06:40 Dose: 10 mg Piperacillin Sod/Tazobactam Sod (Zosyn 3.375gm Ivpb (Pre-Docked)) 50 mls @ 100 mls/hr IVPB Q8H-IV [facility] PRN Reason: Protocol Last Admin: 06/26/16 09:17 Dose: 100 mls/hr Propofol (Diprivan -) 100 mls @ 3.549 mls/hr IVPB TITR [facility]; 10 MCG/KG/MIN PRN Reason: Protocol Last Admin: 06/26/16 09:24 Dose: 17.744 mls/hr Ibuprofen (Motrin -) 400 mg PO Q6H PRN PRN Reason: PAIN Last Admin: 06/21/16 06:23 Dose: 400 mg Insulin Aspart (Novolog Vial Sliding Scale -) 1 vial SQ ACHS [facility] PRN Reason: Protocol Last Admin: 06/26/16 06:40 Dose: 10 units Methylprednisolone Sodium Succinate (Solu-Medrol -) 60 mg IVPB QID [facility] Last Admin: 06/26/16 09:17 Dose: 60 mg Nitroglycerin (Nitrostat -) 0.4 mg SL Q5M PRN PRN Reason: FOR CHEST PAIN Last Admin: 06/20/16 11:35 Dose: 0.4 mg Pantoprazole Sodium (Protonix 40mg Ivpb (Pre-Docked)) 40 mg IVPB DAILY [facility] Last Admin: 06/26/16 09:16 Dose: 40 mg A/P Acute on Chronic Hypoxic and Hypercapneic Respiratory Failure Influenza A s/p treatment Pneumonia - ?Aspiration Acute COPD Exacerbation CAD +Troponins/Acute NSTEMI h/o Breast Ca Lung Nodules with recent biopsy showing necrotizing granulomas Smoker - continue antibiotics - will decrease medrol to 40mg q6h - inhaled bronchodilators - taper FiO2, PEEP to keep SpO2 >90% - ASA - hold sedation in AM to assess mental status - start spontaneous breathing trials when mental status improves - enteral feeds - DVT/GI prophylaxis Critical care time spent in reviewing chart, evaluating pt and formulating plan 36 min
[2016-06-26] MEDS: NAPH,MB-DB/K PH,MBDB POWDER PACKET PO SCH ×2 (10:34→22:00)
[2016-06-26] MEDS: dilTIAZem HCL 60 MG TABLET (FP) PO SCH ×2 (12:09→17:16)
[2016-06-26] MEDS ORDERED: PT OWN MED DRAWER 7, Y5N ONE (13:23)
--- NOTE | 2016-06-26 15:13 | PN ---
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, Physician History of Present Illness: still intubated and sedated patient moving around stable no new events had a low grade temperature - Current Medication List Current Medications: Active Medications Acetaminophen (Tylenol -) 650 mg PO Q4H PRN PRN Reason: FEVER OR PAIN Last Admin: 06/23/16 18:30 Dose: 650 mg Al Hydroxide/Mg Hydroxide (Mylanta Oral Suspension -) 30 ml PO Q8H PRN PRN Reason: INDIGESTION Last Admin: 06/21/16 23:49 Dose: 30 ml Albuterol Sulfate (Ventolin 0.083% Nebulizer Soln -) 1 amp NEB Q4H PRN PRN Reason: SHORT OF BREATH/WHEEZING Albuterol/Ipratropium (Duoneb -) 1 amp NEB QIDR [facility] Last Admin: 06/26/16 12:08 Dose: 1 amp Aspirin (Asa -) 81 mg PO DAILY [facility] Last Admin: 06/26/16 09:30 Dose: 81 mg Atorvastatin Calcium (Lipitor -) 80 mg PO HS [facility] Last Admin: 06/25/16 22:23 Dose: 80 mg Budesonide/Formoterol Fumarate (Symbicort 160/4.5mcg -) 2 puff IH BID [facility] Last Admin: 06/26/16 09:27 Dose: Not Given Chlorhexidine Gluconate (Peridex -) 15 ml MM BID [facility] Last Admin: 06/26/16 09:30 Dose: 15 ml Diltiazem HCl (Cardizem Injection -) 10 mg IVPUSH Q4H PRN PRN Reason: TACHYCARDIA Last Admin: 06/25/16 23:30 Dose: 10 mg Diltiazem HCl (Cardizem -) 60 mg PO Q6HPO [facility] Last Admin: 06/26/16 12:09 Dose: 60 mg Enalapril Maleate (Vasotec -) 5 mg PO BID [facility] Last Admin: 06/26/16 09:30 Dose: 5 mg Hydralazine HCl (Apresoline -) 10 mg PO TID [facility] Last Admin: 06/26/16 13:24 Dose: 10 mg Piperacillin Sod/Tazobactam Sod (Zosyn 3.375gm Ivpb (Pre-Docked)) 50 mls @ 100 mls/hr IVPB Q8H-IV [facility] PRN Reason: Protocol Last Admin: 06/26/16 09:17 Dose: 100 mls/hr Propofol (Diprivan -) 100 mls @ 3.549 mls/hr IVPB TITR [facility]; 10 MCG/KG/MIN PRN Reason: Protocol Last Admin: 06/26/16 13:57 Dose: 17.744 mls/hr Ibuprofen (Motrin -) 400 mg PO Q6H PRN PRN Reason: PAIN Last Admin: 06/21/16 06:23 Dose: 400 mg Insulin Aspart (Novolog Vial Sliding Scale -) 1 vial SQ ACHS [facility] PRN Reason: Protocol Last Admin: 06/26/16 11:08 Dose: 10 units Methylprednisolone Sodium Succinate (Solu-Medrol -) 40 mg IVPB Q6H-IV [facility] Last Admin: 06/26/16 14:06 Dose: 40 mg Nitroglycerin (Nitrostat -) 0.4 mg SL Q5M PRN PRN Reason: FOR CHEST PAIN Last Admin: 06/20/16 11:35 Dose: 0.4 mg Pantoprazole Sodium (Protonix 40mg Ivpb (Pre-Docked)) 40 mg IVPB DAILY [facility] Last Admin: 06/26/16 09:16 Dose: 40 mg Potassium Phos/Sodium Phos (Phos-Nak Packet -) 1 packet PO BID [facility] Stop: 06/26/16 22:01 Last Admin: 06/26/16 10:34 Dose: 1 packet - Objective Vital Signs: Vital Signs Temperature 98.5 F 06/26/16 14:00 Pulse Rate 84 06/26/16 14:00 Respiratory Rate 25 H 06/26/16 14:28 Blood Pressure 136/54 06/26/16 14:00 O2 Sat by Pulse Oximetry (%) 96 06/26/16 08:00 Constitutional: Yes: Calm Cardiovascular: Yes: Regular Rate and Rhythm Respiratory: Yes: Intubated, Mechanically Ventilated Gastrointestinal: Yes: Normal Bowel Sounds, Soft Musculoskeletal: Yes: WNL Extremities: Yes: WNL Wound/Incision: Yes: Other Neurological: Yes: Other Labs: CBC, BMP 06/26/16 05:25 06/26/16 05:25 INR, PTT INR 1.02 (0.82-1.09) 06/09/16 05:05 Assessment/Plan Problem List - Problems (1) Aortic stenosis Code(s): I35.0 - NONRHEUMATIC AORTIC (VALVE) STENOSIS (2) History of PSVT (paroxysmal supraventricular tachycardia) Code(s): Z86.79 - PERSONAL HISTORY OF OTHER DISEASES OF THE CIRCULATORY SYSTEM (3) NSTEMI (non-ST elevated myocardial infarction) Code(s): I21.4 - NON-ST ELEVATION (NSTEMI) MYOCARDIAL INFARCTION (4) Respiratory failure Code(s): J96.90 - RESPIRATORY FAILURE, UNSP, UNSP W HYPOXIA OR HYPERCAPNIA Qualifiers: Chronicity: acute Respiratory failure complication: hypoxia and hypercapnia Qualified Code(s): J96.01 - Acute respiratory failure with hypoxia (5) Pulmonary hypertension Code(s): I27.2 - OTHER SECONDARY PULMONARY HYPERTENSION (6) Pulmonary nodules Code(s): R91.8 - OTHER NONSPECIFIC ABNORMAL FINDING OF LUNG FIELD (7) COPD (chronic obstructive pulmonary disease) Code(s): J44.9 - CHRONIC OBSTRUCTIVE PULMONARY DISEASE, UNSPECIFIED (8) History of cigarette smoking Code(s): Z87.891 - PERSONAL HISTORY OF NICOTINE DEPENDENCE (9) Acute on chronic respiratory failure with hypoxia and hypercapnia Code(s): J96.21 - ACUTE AND CHRONIC RESPIRATORY FAILURE WITH HYPOXIA J96.22 - ACUTE AND CHRONIC RESPIRATORY FAILURE WITH HYPERCAPNIAEPENDENCE +Troponins/Acute NSTEMI Lactic Acidosis h/o Breast Ca 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
--- NOTE | 2016-06-26 18:38 | PN ---
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, Physician History of Present Illness: intubated and sedated f - Current Medication List Current Medications: Active Medications Acetaminophen (Tylenol -) 650 mg PO Q4H PRN PRN Reason: FEVER OR PAIN Last Admin: 06/23/16 18:30 Dose: 650 mg Al Hydroxide/Mg Hydroxide (Mylanta Oral Suspension -) 30 ml PO Q8H PRN PRN Reason: INDIGESTION Last Admin: 06/21/16 23:49 Dose: 30 ml Albuterol Sulfate (Ventolin 0.083% Nebulizer Soln -) 1 amp NEB Q4H PRN PRN Reason: SHORT OF BREATH/WHEEZING Albuterol/Ipratropium (Duoneb -) 1 amp NEB QIDR [facility] Last Admin: 06/26/16 12:08 Dose: 1 amp Aspirin (Asa -) 81 mg PO DAILY [facility] Last Admin: 06/26/16 09:30 Dose: 81 mg Atorvastatin Calcium (Lipitor -) 80 mg PO HS [facility] Last Admin: 06/25/16 22:23 Dose: 80 mg Budesonide/Formoterol Fumarate (Symbicort 160/4.5mcg -) 2 puff IH BID [facility] Last Admin: 06/26/16 09:27 Dose: Not Given Chlorhexidine Gluconate (Peridex -) 15 ml MM BID [facility] Last Admin: 06/26/16 09:30 Dose: 15 ml Diltiazem HCl (Cardizem Injection -) 10 mg IVPUSH Q4H PRN PRN Reason: TACHYCARDIA Last Admin: 06/25/16 23:30 Dose: 10 mg Diltiazem HCl (Cardizem -) 60 mg PO Q6HPO [facility] Last Admin: 06/26/16 17:16 Dose: 60 mg Enalapril Maleate (Vasotec -) 5 mg PO BID [facility] Last Admin: 06/26/16 09:30 Dose: 5 mg Hydralazine HCl (Apresoline -) 10 mg PO TID [facility] Last Admin: 06/26/16 13:24 Dose: 10 mg Piperacillin Sod/Tazobactam Sod (Zosyn 3.375gm Ivpb (Pre-Docked)) 50 mls @ 100 mls/hr IVPB Q8H-IV [facility] PRN Reason: Protocol Last Admin: 06/26/16 17:11 Dose: 100 mls/hr Propofol (Diprivan -) 100 mls @ 3.549 mls/hr IVPB TITR [facility]; 10 MCG/KG/MIN PRN Reason: Protocol Last Admin: 06/26/16 13:57 Dose: 17.744 mls/hr Ibuprofen (Motrin -) 400 mg PO Q6H PRN PRN Reason: PAIN Last Admin: 06/21/16 06:23 Dose: 400 mg Insulin Aspart (Novolog Vial Sliding Scale -) 1 vial SQ ACHS [facility] PRN Reason: Protocol Last Admin: 06/26/16 16:40 Dose: 10 units Methylprednisolone Sodium Succinate (Solu-Medrol -) 40 mg IVPB Q6H-IV [facility] Last Admin: 06/26/16 14:06 Dose: 40 mg Nitroglycerin (Nitrostat -) 0.4 mg SL Q5M PRN PRN Reason: FOR CHEST PAIN Last Admin: 06/20/16 11:35 Dose: 0.4 mg Pantoprazole Sodium (Protonix 40mg Ivpb (Pre-Docked)) 40 mg IVPB DAILY [facility] Last Admin: 06/26/16 09:16 Dose: 40 mg Potassium Phos/Sodium Phos (Phos-Nak Packet -) 1 packet PO BID [facility] Stop: 06/26/16 22:01 Last Admin: 06/26/16 10:34 Dose: 1 packet - Objective Vital Signs: Vital Signs Temperature 99.3 F 06/26/16 18:00 Pulse Rate 80 06/26/16 18:00 Respiratory Rate 26 H 06/26/16 18:00 Blood Pressure 140/53 06/26/16 18:00 O2 Sat by Pulse Oximetry (%) 96 06/26/16 08:00 Constitutional: Yes: No Distress HENT: Yes: Atraumatic Neck: Yes: Supple Cardiovascular: Yes: Regular Rate and Rhythm Respiratory: Yes: CTA Bilaterally Gastrointestinal: Yes: Normal Bowel Sounds Extremities: Yes: WNL Labs: CBC, BMP 06/26/16 05:25 06/26/16 05:25 INR, PTT INR 1.02 (0.82-1.09) 06/09/16 05:05 Problem List - Problems (1) Respiratory failure Assessment/Plan: pt is intubated apiration pna on abx on steroids Code(s): J96.90 - RESPIRATORY FAILURE, UNSP, UNSP W HYPOXIA OR HYPERCAPNIA Qualifiers: Chronicity: acute Respiratory failure complication: hypoxia and hypercapnia Qualified Code(s): J96.01 - Acute respiratory failure with hypoxia (2) Chronic respiratory failure with hypoxia Assessment/Plan: see above Code(s): J96.11 - CHRONIC RESPIRATORY FAILURE WITH HYPOXIA (3) CAD (coronary artery disease) Assessment/Plan: on meds follow up labs continue current meds Code(s): I25.10 - ATHSCL HEART DISEASE OF [place] CORONARY ARTERY W/O ANG PCTRS (4) COPD (chronic obstructive pulmonary disease) Assessment/Plan: on meds stable Code(s): J44.9 - CHRONIC OBSTRUCTIVE PULMONARY DISEASE, UNSPECIFIED (5) Chronic diastolic CHF (congestive heart failure) Assessment/Plan: stable on meds Code(s): I50.32 - CHRONIC DIASTOLIC (CONGESTIVE) HEART FAILURE (6) HLD (hyperlipidemia) Assessment/Plan: on meds Code(s): E78.5 - HYPERLIPIDEMIA, UNSPECIFIED Qualifiers: Hyperlipidemia type: unspecified Qualified Code(s): E78.5 - Hyperlipidemia, unspecified (7) HTN (hypertension) Assessment/Plan: on meds stable Code(s): I10 - ESSENTIAL (PRIMARY) HYPERTENSION Qualifiers: Hypertension type: essential hypertension Qualified Code(s): I10 - Essential (primary) hypertension (8) History of cigarette smoking Code(s): Z87.891 - PERSONAL HISTORY OF NICOTINE DEPENDENCE (9) Influenza Assessment/Plan: on meds id consult Code(s): J11.1 - FLU DUE TO UNIDENTIFIED INFLUENZA VIRUS W OTH RESP MANIFEST (10) Acute on chronic respiratory failure with hypoxia and hypercapnia Code(s): J96.21 - ACUTE AND CHRONIC RESPIRATORY FAILURE WITH HYPOXIA J96.22 - ACUTE AND CHRONIC RESPIRATORY FAILURE WITH HYPERCAPNIA (11) History of PSVT (paroxysmal supraventricular tachycardia) Code(s): Z86.79 - PERSONAL HISTORY OF OTHER DISEASES OF THE CIRCULATORY SYSTEM (12) Anemia Assessment/Plan: recieved 1 unit of blood improved Code(s): D64.9 - ANEMIA, UNSPECIFIED Assessment/Plan 1.+Influenza treated 2.Acute respiratory failure IN ICU NOW ON BIPAP RLL INFILTERATE ON ABX AND DUO NEBS duo nebs 3.ANEMIA STABLE 4.NSTEMI 5.History breast cancer, lung mass with negative bx 6.COPD, chronic with chronic hypoxemia 7.chf STABLE PT EVAL CC 30 MIN
[2016-06-26] MEDS: ATORVASTATIN CA 80 MG TABLET (FP) PO SCH (22:00)
[2016-06-26] MEDS: INSULIN DETEMIR 100 UNITS/ML MDV SQ SCH (23:26)
[2016-06-27] MEDS: dilTIAZem HCL 60 MG TABLET (FP) PO SCH ×5 (00:07→23:53)
[2016-06-27] MEDS: PROPOFOL 100 ML IVPB SCH ×5 (00:07→23:54)
[2016-06-27] MEDS: ALBUTEROL SO4 2.5/IPRATROPIUM 0.5 INH SOL 3 ML VIAL.NEB. NEB SCH ×5 (01:08→23:37)
[2016-06-27] MEDS: PIPERACILLIN/TAZOB 3.375 GM 50 ML IVPB SCH ×3 (02:00→17:12)
[2016-06-27] MEDS: methylPREDNISolone NA SUCC 40 MG/1 ML VIAL IVPB SCH ×4 (03:28→21:54)
[2016-06-27 06:10] LABS: MCH 24.5 pg (25.7-33.7); MCHC 31.6 g/dl (32.0-36.0); MEAN CELL VOLUME 77.4 fl (80-96); MEAN PLT VOLUME 9.2 fl (7.5-11.1); PLATELET COUNT 107 K/MM3 (134-434); RDW 28.1 % (11.6-15.6); WHITE BLOOD COUNT 16.4 K/mm3 (4.0-10.0)
[2016-06-27] MEDS: hydrALAZINE HCL 10 MG TABLET PO SCH ×3 (06:21→21:54)
[2016-06-27] MEDS: INSULIN SLIDING SCALE (NOVOLOG) 1 VIAL SQ SCH ×4 (06:22→21:56)
[2016-06-27 06:56] LABS: ALBUMIN 1.3 g/dl (3.4-5.0); ANION GAP 7 (8-16); CALCIUM 8.4 mg/dL (8.5-10.1); CO2 32 mmol/L (21-32); COCKROFT - GAULT 90.3975; CREATININE 0.5 mg/dL (0.55-1.02); GLUCOSE,RANDOM 270 mg/dL (74-106); MAGNESIUM 2.4 mg/dL (1.8-2.4); PHOSPHOROUS 2.9 mg/dL (2.5-4.9); SGOT/AST 38 U/L (15-37); SGPT/ALT 31 U/L (12-78)
[2016-06-27 06:58] LABS: ALK PHOS 99 U/L (45-117); BILIRUBIN,TOTAL 0.3 mg/dL (0.2-1.0); TOT PROT 4.8 g/dl (6.4-8.2)
[2016-06-27 07:57] LABS: ARTERIAL BLD GAS O2 SATURATION 94.8 % (90-98.9); ARTERIAL BLOOD GAS BASE EXCESS 4.4 meq/l (-2-2); ARTERIAL BLOOD GAS HCO3 29.4 meq/L (22-26); ARTERIAL BLOOD GAS PO2 69.5 mmHg (70-100); ARTERIAL BLOOD GAS pH 7.39 (7.35-7.45)
[2016-06-27 07:58] LABS: ALLENS TEST POSITIVE; ART PUNCT SITE RIGHT RADIAL; LPM/O2% 40; MECH. VENT. YES; PT. ON O2? YES; TYPE OF O2 VENT; VENT RATE 18; VT/PRESS 350
[2016-06-27] MEDS ORDERED: PT OWN MED DRAWER 7, Y5N ONE ×2 (08:42→17:06)
--- NOTE | 2016-06-27 09:22 | PN ---
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, Physician History of Present Illness: seen and examined today in nad. intubated, sedated, mechanically ventilated, minimally responsive. no overnight events. - Current Medication List Current Medications: Active Medications Acetaminophen (Tylenol -) 650 mg PO Q4H PRN PRN Reason: FEVER OR PAIN Last Admin: 06/23/16 18:30 Dose: 650 mg Al Hydroxide/Mg Hydroxide (Mylanta Oral Suspension -) 30 ml PO Q8H PRN PRN Reason: INDIGESTION Last Admin: 06/21/16 23:49 Dose: 30 ml Albuterol Sulfate (Ventolin 0.083% Nebulizer Soln -) 1 amp NEB Q4H PRN PRN Reason: SHORT OF BREATH/WHEEZING Albuterol/Ipratropium (Duoneb -) 1 amp NEB QIDR [facility] Last Admin: 06/27/16 06:59 Dose: 1 amp Aspirin (Asa -) 81 mg PO DAILY [facility] Last Admin: 06/26/16 09:30 Dose: 81 mg Atorvastatin Calcium (Lipitor -) 80 mg PO HS [facility] Last Admin: 06/26/16 22:00 Dose: 80 mg Budesonide/Formoterol Fumarate (Symbicort 160/4.5mcg -) 2 puff IH BID [facility] Last Admin: 06/26/16 23:08 Dose: Not Given Chlorhexidine Gluconate (Peridex -) 15 ml MM BID [facility] Last Admin: 06/26/16 22:00 Dose: 15 ml Diltiazem HCl (Cardizem Injection -) 10 mg IVPUSH Q4H PRN PRN Reason: TACHYCARDIA Last Admin: 06/25/16 23:30 Dose: 10 mg Diltiazem HCl (Cardizem -) 60 mg PO Q6HPO [facility] Last Admin: 06/27/16 06:21 Dose: 60 mg Enalapril Maleate (Vasotec -) 5 mg PO BID [facility] Last Admin: 06/26/16 22:00 Dose: 5 mg Heparin Sodium (Porcine) (Heparin -) 5,000 unit SQ BID [facility] Hydralazine HCl (Apresoline -) 10 mg PO TID [facility] Last Admin: 06/27/16 06:21 Dose: 10 mg Piperacillin Sod/Tazobactam Sod (Zosyn 3.375gm Ivpb (Pre-Docked)) 50 mls @ 100 mls/hr IVPB Q8H-IV [facility] PRN Reason: Protocol Last Admin: 06/27/16 02:00 Dose: 100 mls/hr Propofol (Diprivan -) 100 mls @ 3.549 mls/hr IVPB TITR [facility]; 10 MCG/KG/MIN PRN Reason: Protocol Last Admin: 06/27/16 06:22 Dose: 17.744 mls/hr Ibuprofen (Motrin -) 400 mg PO Q6H PRN PRN Reason: PAIN Last Admin: 06/21/16 06:23 Dose: 400 mg Insulin Aspart (Novolog Vial Sliding Scale -) 1 vial SQ ACHS [facility] PRN Reason: Protocol Last Admin: 06/27/16 06:22 Dose: 10 units Insulin Detemir (Levemir Vial) 10 units SQ HS [facility] Last Admin: 06/26/16 23:26 Dose: 10 units Methylprednisolone Sodium Succinate (Solu-Medrol -) 40 mg IVPB Q6H-IV [facility] Last Admin: 06/27/16 03:28 Dose: 40 mg Nitroglycerin (Nitrostat -) 0.4 mg SL Q5M PRN PRN Reason: FOR CHEST PAIN Last Admin: 06/20/16 11:35 Dose: 0.4 mg Pantoprazole Sodium (Protonix 40mg Ivpb (Pre-Docked)) 40 mg IVPB DAILY [facility] Last Admin: 06/26/16 09:16 Dose: 40 mg - Objective Vital Signs: Vital Signs Temperature 99 F 06/27/16 06:00 Pulse Rate 85 06/27/16 07:58 Respiratory Rate 25 H 06/27/16 08:00 Blood Pressure 142/58 06/27/16 07:58 O2 Sat by Pulse Oximetry (%) 97 06/27/16 08:00 Constitutional: Yes: Well Nourished, No Distress, Calm Eyes: Yes: Conjunctiva Clear HENT: Yes: Atraumatic, Normocephalic Neck: Yes: Supple, Trachea Midline Cardiovascular: Yes: Regular Rate and Rhythm, Murmur, S1, S2. No: Bradycardia, Tachycardia, Bruit, JVD, Gallop, Rub, S3, S4, Varicosities Respiratory: Yes: Regular, Diminished, Intubated, Mechanically Ventilated, Rhonchi, Tachypnea. No: Rales, SOB, Wheezes Gastrointestinal: Yes: Normal Bowel Sounds. No: Distention, Tenderness Edema: No Peripheral Pulses WNL: Yes Peripheral Pulses: Left Doralis Pedis: 2+, Right Dorsalis Pedis: 2+ Integumentary: Yes: WNL Neurological: No: Alert, Oriented Psychiatric: No: Alert, Oriented Labs: CBC, BMP 06/27/16 05:15 06/27/16 05:15 INR, PTT INR 1.02 (0.82-1.09) 06/09/16 05:05 - ....Imaging Chest X-ray: Report Reviewed, Image Reviewed EKG: Report Reviewed, Image Reviewed Other: Report Reviewed, Image Reviewed (tele-nsr, no further psvt recorded since yesterday) Assessment/Plan Recurrent acute respiratory failure requiring re-intubation, refused trach first intubation Bilateral PNA Anemia PSVT NSVT CAD s/p NSTEMI Mild COPD REC: Cont Vent support as per CCM, wean as tolerates, refused trach when last intubated, no confused and sedated Abx as per CCM/ID Cont ASA, monitor H/H Has refused cardiac cath on multiple occasions, known h/o CAD, chronic angina PSVT better controlled since yesterday, Cont Cardizem 60mg q6h
[2016-06-27] MEDS: CHLORHEXIDINE GLUCONATE 0.12% 15ML CUP MM SCH ×2 (10:40→21:56)
[2016-06-27] MEDS: ASPIRIN 81 MG CHEWABLE TABLETS PO SCH (10:40)
[2016-06-27] MEDS: HEPARIN NA (PORCINE) 5,000 UNITS/ML 1ML VIAL SQ SCH ×2 (10:40→21:54)
[2016-06-27] MEDS: PANTOPRAZOLE SODIUM 40 MG/100 ML PRE-DOCKED IVPB SCH (10:41)
[2016-06-27] MEDS: BUDESONIDE/FORMETEROL FUMARATE 160/4.5 mcg INHALER IH SCH ×2 (10:41→21:56)
[2016-06-27] MEDS: ENALAPRIL MALEATE 5 MG TABLET (FP) PO SCH ×2 (10:41→21:57)
[2016-06-27 11:11] LABS: PLATELET ESTIMATE DECREASED (NORMAL)
--- NOTE | 2016-06-27 12:22 | PN ---
Teaching Attending Note Name of Resident: Griffin Bell ATTENDING PHYSICIAN STATEMENT I saw and evaluated the patient. I reviewed the resident's note and discussed the case with the resident. I agree with the resident's findings and plan as documented. SUBJECTIVE: Pt seen and examined in the ICU. Remains intubated, sedated. Vented on volume assist control with 40% Fio2 and PEEP 8. No fevers recorded. OBJECTIVE: Last Vital Signs Temp Pulse Resp BP Pulse Ox 98.4 F 86 19 142/64 96 06/27/16 09:36 06/27/16 11:45 06/27/16 11:45 06/27/16 11:45 06/27/16 11:23 Intake & Output 06/24/16 06/25/16 06/26/16 06/27/16 23:59 23:59 23:59 23:59 Intake Total 4882.4 4929 2830.4 1436 Output Total 900 1500 1100 500 Balance 3982.4 3429 1730.4 936 Weight 125 lb 8 oz 126 lb 127 lb 6.4 oz 127 lb 14.4 oz Gen: intubated, sedated Heart: RRR Lung: distant breath sounds, scattered rhonchi Abd: soft, nontender Ext: trace edema CBC, BMP 06/27/16 05:15 06/27/16 05:15 Active Medications Acetaminophen (Tylenol -) 650 mg PO Q4H PRN PRN Reason: FEVER OR PAIN Last Admin: 06/23/16 18:30 Dose: 650 mg Al Hydroxide/Mg Hydroxide (Mylanta Oral Suspension -) 30 ml PO Q8H PRN PRN Reason: INDIGESTION Last Admin: 06/21/16 23:49 Dose: 30 ml Albuterol Sulfate (Ventolin 0.083% Nebulizer Soln -) 1 amp NEB Q4H PRN PRN Reason: SHORT OF BREATH/WHEEZING Albuterol/Ipratropium (Duoneb -) [address] [facility] Last Admin: 06/27/16 11:15 Dose: 1 amp Aspirin (Asa -) [address] [facility] Last Admin: 06/27/16 10:40 Dose: 81 mg Atorvastatin Calcium (Lipitor -) [address] [facility] Last Admin: 06/26/16 22:00 Dose: 80 mg Budesonide/Formoterol Fumarate (Symbicort 160/4.5mcg -) [address] [facility] Last Admin: 06/27/16 10:41 Dose: Not Given Chlorhexidine Gluconate (Peridex -) [address] [facility] Last Admin: 06/27/16 10:40 Dose: 15 ml Diltiazem HCl (Cardizem Injection -) 10 mg IVPUSH Q4H PRN PRN Reason: TACHYCARDIA Last Admin: 06/25/16 23:30 Dose: 10 mg Diltiazem HCl (Cardizem -) [address] [facility] Last Admin: 06/27/16 11:00 Dose: 60 mg Enalapril Maleate (Vasotec -) [address] [facility] Last Admin: 06/27/16 10:41 Dose: 5 mg Heparin Sodium (Porcine) (Heparin -) 5,[address] [facility] Last Admin: 06/27/16 10:40 Dose: 5,000 unit Hydralazine HCl (Apresoline -) [address] [facility] Last Admin: 06/27/16 06:21 Dose: 10 mg Piperacillin Sod/Tazobactam Sod (Zosyn 3.375gm Ivpb (Pre-Docked)) 50 mls @ 100 mls/hr IVPB Q8H-IV [facility] PRN Reason: Protocol Last Admin: 06/27/16 10:41 Dose: 100 mls/hr Propofol (Diprivan -) 100 mls @ 3.549 mls/hr IVPB TITR [facility]; 10 MCG/KG/MIN PRN Reason: Protocol Last Titration: 06/27/16 11:52 Dose: 0 mcg/kg/min Ibuprofen (Motrin -) 400 mg PO Q6H PRN PRN Reason: PAIN Last Admin: 06/21/16 06:23 Dose: 400 mg Insulin Aspart (Novolog Vial Sliding Scale -) 1 vial SQ ACHS [facility] PRN Reason: Protocol Last Admin: 06/27/16 06:22 Dose: 10 units Insulin Detemir (Levemir Vial) [address] [facility] Last Admin: 06/26/16 23:26 Dose: 10 units Methylprednisolone Sodium Succinate (Solu-Medrol -) 40 mg IVPB Q6H-IV [facility] Last Admin: 06/27/16 09:45 Dose: 40 mg Nitroglycerin (Nitrostat -) 0.4 mg SL Q5M PRN PRN Reason: FOR CHEST PAIN Last Admin: 06/20/16 11:35 Dose: 0.4 mg Pantoprazole Sodium (Protonix 40mg Ivpb (Pre-Docked)) 40 mg IVPB DAILY [facility] Last Admin: 06/27/16 10:41 Dose: 40 mg ASSESSMENT AND PLAN: Acute on Chronic Hypoxic and Hypercapneic Respiratory Failure Influenza A s/p treatment Pneumonia - ?Aspiration Acute COPD Exacerbation CAD +Troponins/Acute NSTEMI h/o Breast Ca Lung Nodules with recent biopsy showing necrotizing granulomas Smoker - continue antibiotics - continue medrol at current dose - inhaled bronchodilators - taper FiO2, PEEP to keep SpO2 >90% - ASA - hold sedation to assess mental status - start spontaneous breathing trials when mental status improves - enteral feeds - DVT/GI prophylaxis - continue ICU monitoring Critical care time spent in reviewing chart, evaluating pt and formulating plan 36 min
--- NOTE | 2016-06-27 12:59 | PN ---
Physical Exam: SUBJECTIVE: Patient seen and examined Patient sedated and intubated. patient on vcv mode. patient sedation was decreased but she became restless so started back on sedation CXR reviewed, infiltrate present in right lower lobe and left upper lobe. Patient on zosyn. OBJECTIVE: Vital Signs Period Temp Pulse Resp BP Sys/Rasheed Pulse Ox Last 24 Hr 98.4 F-99.4 F 72-87 17-26 106-144/45-88 94-97 GENERAL: intubated, sedated HEAD: Normal with no signs of trauma. EYES: PERRL, NECK: Trachea midline, full range of motion, supple. LUNGS: b/l decrease air entry, diffuse wheez, rales on right side, using accessory muscle but after steroid her wheezing decreased, air entry improved. and no more accessory muscle use HEART: s1s2 normal tachy ABDOMEN: Soft, nontender, nondistended, normoactive bowel sounds, no guarding. EXTREMITIES: 2+ pulses, warm, well-perfused, no edema. SKIN: Warm, dry, Laboratory Results - last 24 hr 06/25/16 06/26/16 06/26/16 05:59 16:29 23:20 WBC RBC Hgb Hct MCV MCHC RDW Plt Count MPV Neutrophils % Lymphocytes % Differential Comment Platelet Estimate Puncture Site ABG pH ABG pCO2 at Pt Temp ABG pO2 at Pt Temp ABG HCO3 ABG O2 Sat (Measured) ABG O2 Content ABG Base Excess Rafi Test O2 Delivery Device Oxygen Flow Rate Vent Mode Vent Rate Mechanical Rate PEEP Pressure Support Vent Sodium Potassium Chloride Carbon Dioxide Anion Gap BUN Creatinine Creat Clearance w eGFR POC Glucometer > [phone] [phone] Random Glucose Calcium Phosphorus Magnesium Total Bilirubin AST ALT Alkaline Phosphatase Total Protein Albumin 06/27/16 06/27/16 06/27/16 05:15 05:15 05:40 WBC 16.4 H RBC 3.57 L Hgb 8.7 L Hct 27.6 L MCV 77.4 L MCHC 31.6 L RDW 28.1 H Plt Count 107 L MPV 9.2 Neutrophils % 97.0 H Lymphocytes % 3.0 L D Differential Comment Manual diff done Platelet Estimate Decreased Puncture Site ABG pH ABG pCO2 at Pt Temp ABG pO2 at Pt Temp ABG HCO3 ABG O2 Sat (Measured) ABG O2 Content ABG Base Excess Rafi Test O2 Delivery Device Oxygen Flow Rate Vent Mode Vent Rate Mechanical Rate PEEP Pressure Support Vent Sodium 141 Potassium 4.8 Chloride 102 Carbon Dioxide 32 Anion Gap 7 L BUN 29 H Creatinine 0.5 L D Creat Clearance w eGFR > 60 POC Glucometer [phone] Random Glucose 270 H Calcium 8.4 L Phosphorus 2.9 D Magnesium 2.4 Total Bilirubin 0.3 D AST 38 H D ALT 31 Alkaline Phosphatase 99 Total Protein 4.8 L Albumin 1.3 L 06/27/16 07:25 WBC RBC Hgb Hct MCV MCHC RDW Plt Count MPV Neutrophils % Lymphocytes % Differential Comment Platelet Estimate Puncture Site Right radial ABG pH 7.39 ABG pCO2 at Pt Temp 49.3 H ABG pO2 at Pt Temp 69.5 L ABG HCO3 29.4 H ABG O2 Sat (Measured) 94.8 ABG O2 Content 9.9 L* ABG Base Excess 4.4 H Rafi Test Positive O2 Delivery Device Vent Oxygen Flow Rate 40 Vent Mode A/c Vent Rate 18 Mechanical Rate Yes PEEP 8.0 Pressure Support Vent 350 Sodium Potassium Chloride Carbon Dioxide Anion Gap BUN Creatinine Creat Clearance w eGFR POC Glucometer Random Glucose Calcium Phosphorus Magnesium Total Bilirubin AST ALT Alkaline Phosphatase Total Protein Albumin Active Medications Generic Name Dose Route Start Last Admin Trade Name Freq PRN Reason Stop Dose Admin Acetaminophen 650 mg 06/15/16 19:22 06/23/16 18:30 Tylenol - PO 650 mg Q4H PRN Administration FEVER OR PAIN Al Hydroxide/Mg Hydroxide 30 ml 06/21/16 23:41 06/21/16 23:49 Mylanta Oral Suspension - PO 30 ml Q8H PRN Administration INDIGESTION Albuterol Sulfate 1 amp 06/22/16 16:09 Ventolin 0.083% Nebulizer Soln - NEB Q4H PRN SHORT OF BREATH/WHEEZING Albuterol/Ipratropium 1 amp 06/22/16 18:00 06/27/16 11:15 Duoneb - NEB 1 amp QIDR YEISON Administration Aspirin 81 mg 06/16/16 10:00 06/27/16 10:40 Asa - PO 81 mg DAILY YEISON Administration Atorvastatin Calcium 80 mg 06/15/16 22:00 06/26/16 22:00 Lipitor - PO 80 mg HS YEISON Administration Budesonide/Formoterol Fumarate 2 puff 06/21/16 12:30 06/27/16 10:41 Symbicort 160/4.5mcg - IH Not Given BID YEISON Chlorhexidine Gluconate 15 ml 06/24/16 22:00 06/27/16 10:40 Peridex - MM 15 ml BID YEISON Administration Diltiazem HCl 10 mg 06/25/16 09:08 06/25/16 23:30 Cardizem Injection - IVPUSH 10 mg Q4H PRN Administration TACHYCARDIA Diltiazem HCl 60 mg 06/26/16 12:00 06/27/16 11:00 Cardizem - PO 60 mg Q6HPO YEISON Administration Enalapril Maleate 5 mg 06/15/16 22:00 06/27/16 10:41 Vasotec - PO 5 mg BID YEISON Administration Heparin Sodium (Porcine) 5,000 unit 06/27/16 10:00 06/27/16 10:40 Heparin - SQ 5,000 unit BID YEISON Administration Hydralazine HCl 10 mg 06/15/16 22:00 06/27/16 06:21 Apresoline - PO 10 mg TID YEISON Administration Piperacillin Sod/Tazobactam Sod 50 mls @ 100 mls/hr 06/22/16 13:30 06/27/16 10: 41 Zosyn 3.375gm Ivpb (Pre-Docked) IVPB 100 mls/hr Q8H-IV YEISON Administration Protocol Propofol 100 mls @ 3.549 mls/hr 06/23/16 00:45 06/27/16 12:31 Diprivan - IVPB 30 mcg/kg/min TITR YEISON Titration Protocol 10 MCG/KG/MIN Ibuprofen 400 mg 06/19/16 19:17 06/21/16 06:23 Motrin - PO 400 mg Q6H PRN Administration PAIN Insulin Aspart 1 vial 06/25/16 22:00 06/27/16 12:30 Novolog Vial Sliding Scale - SQ 6 units ACHS YEISON Administration Protocol Insulin Detemir 10 units 06/26/16 22:00 06/26/16 23:26 Levemir Vial SQ 10 units HS YEISON Administration Methylprednisolone Sodium Succinate 40 mg 06/26/16 15:00 06/27/16 09:45 Solu-Medrol - IVPB 40 mg Q6H-IV YEISON Administration Nitroglycerin 0.4 mg 06/20/16 11:09 06/20/16 11:35 Nitrostat - SL 0.4 mg Q5M PRN Administration FOR CHEST PAIN Pantoprazole Sodium 40 mg 06/23/16 10:00 06/27/16 10:41 Protonix 40mg Ivpb (Pre-Docked) IVPB 40 mg DAILY YEISON Administration ABG Results ABG pH 7.39 (7.35-7.45) 06/27/16 07:25 ABG pCO2 at Pt Temp 49.3 mmHg (35-45) H 06/27/16 07:25 ABG pO2 at Pt Temp 69.5 mmHg (70-100) L 06/27/16 07:25 ABG HCO3 29.4 meq/L (22-26) H 06/27/16 07:25 ABG O2 Sat (Measured) 94.8 % (90-98.9) 06/27/16 07:25 ABG O2 Content 9.9 % vol (15-22) L* 06/27/16 07:25 ABG Base Excess 4.4 meq/l (-2-2) H 06/27/16 07:25 Microbiology 06/22/16 15:00 Blood - Peripheral Venous Blood Culture - Preliminary NO GROWTH OBTAINED AFTER 96 HOURS, INCUBATION TO CONTINUE FOR 1 DAYS. 06/22/16 13:58 Blood - Peripheral Venous Blood Culture - Preliminary NO GROWTH OBTAINED AFTER 96 HOURS, INCUBATION TO CONTINUE FOR 1 DAYS. 06/23/16 00:37 Sputum - Endotrachea Suction/Ventilator Gram Stain - Final 06/23/16 00:37 Sputum - Endotrachea Suction/Ventilator Sputum Culture - Final Pseudomonas Aeruginosa 06/23/16 00:37 Urine - Urine - Catheterized Urine Culture - Final Citrobacter Koseri Citrobacter Koseri#2 06/08/16 13:45 Urine - Urine Mahoney Urine Culture - Final Yeast Like Organism 06/04/16 07:10 Sputum - Endotrachea Suction/Ventilator Gram Stain - Final 06/04/16 07:10 Sputum - Endotrachea Suction/Ventilator Sputum Culture - Final NORMAL RESPIRATORY LAKSHMI 05/30/16 23:30 Blood - Peripheral Venous Blood Culture - Final NO GROWTH AFTER 5 DAYS INCUBATION 05/30/16 21:30 Blood - Peripheral Venous Blood Culture - Final NO GROWTH AFTER 5 DAYS INCUBATION 05/30/16 23:30 Sputum - Endotracheal Suction W/O Vent Gram Stain - Final 05/30/16 23:30 Sputum - Endotracheal Suction W/O Vent Sputum Culture - Final NORMAL RESPIRATORY LAKSHMI 05/30/16 16:54 Urine - Urine - Catheterized Urine Culture - Final NO GROWTH OBTAINED 05/30/16 23:30 Nasopharyngeal Swab Influenza Types A,B Antigen (ANDREW) - Final 05/30/16 23:30 Nasopharyngeal Swab - Final ASSESSMENT/PLAN: acute hypercapneic respiratory failure due to aspiration pneumonia sedated, intubated. with propofol keep spo2 over 90 Nebulizers YEISON and PRN on solumedrom 40 qid on zosyn as per id cxr shows right side infiltrate, and left upper lobe infiltrate sputum : psudomonas, urine citrobacter koseri follow abg in morning ID on case on duoneb neb q6h standing Trop i elevated could be stress induce trending down Shock improved could be from aspiration pneumonia altered mental status could be from metabolic encephalopathy patient sedated and intubated H/O HTN/ afib continue enalapril 5 bid and hold hydralazine 10 tid for low bp on cardiazem 60mg q6h h/o copd on duoneb on solumedrol 40 q6h DM on sliding scale novalog influenza positive completed a course of tamiflue Microcytic anemia HGB stable 8.7 FEN follow in am tube feed Prophylaxis DVT: heparin sq GI: PPI iv will try weaning her from ventilator Code status - Full code dispo : admit in icu Visit type - Emergency Visit Emergency Visit: Yes ED Registration Date: 05/30/16 Care time: The patient presented to the Emergency Department on the above date and was hospitalized for further evaluation of their emergent condition. - New Patient This patient is new to me today: No - Critical Care Critical Care patient: Yes Total Critical Care Time (in minutes): 45 Critical Care Statement: The care of this patient involved high complexity decision making to prevent further life threatening deterioration of the patient 's condition and/or to evalute & treat vital organ system(s) failure or risk of failure.
--- NOTE | 2016-06-27 17:32 | PN ---
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, Physician History of Present Illness: intubated and sedated f - Current Medication List Current Medications: Active Medications Acetaminophen (Tylenol -) 650 mg PO Q4H PRN PRN Reason: FEVER OR PAIN Last Admin: 06/23/16 18:30 Dose: 650 mg Al Hydroxide/Mg Hydroxide (Mylanta Oral Suspension -) 30 ml PO Q8H PRN PRN Reason: INDIGESTION Last Admin: 06/21/16 23:49 Dose: 30 ml Albuterol/Ipratropium (Duoneb -) 1 amp NEB QIDR [facility] Last Admin: 06/27/16 11:15 Dose: 1 amp Aspirin (Asa -) 81 mg PO DAILY [facility] Last Admin: 06/27/16 10:40 Dose: 81 mg Atorvastatin Calcium (Lipitor -) 80 mg PO HS [facility] Last Admin: 06/26/16 22:00 Dose: 80 mg Budesonide/Formoterol Fumarate (Symbicort 160/4.5mcg -) 2 puff IH BID [facility] Last Admin: 06/27/16 10:41 Dose: Not Given Chlorhexidine Gluconate (Peridex -) 15 ml MM BID [facility] Last Admin: 06/27/16 10:40 Dose: 15 ml Diltiazem HCl (Cardizem Injection -) 10 mg IVPUSH Q4H PRN PRN Reason: TACHYCARDIA Last Admin: 06/25/16 23:30 Dose: 10 mg Diltiazem HCl (Cardizem -) 60 mg PO Q6HPO [facility] Last Admin: 06/27/16 17:12 Dose: 60 mg Enalapril Maleate (Vasotec -) 5 mg PO BID [facility] Last Admin: 06/27/16 10:41 Dose: 5 mg Heparin Sodium (Porcine) (Heparin -) 5,000 unit SQ BID [facility] Last Admin: 06/27/16 10:40 Dose: 5,000 unit Hydralazine HCl (Apresoline -) 10 mg PO TID [facility] Last Admin: 06/27/16 14:35 Dose: 10 mg Piperacillin Sod/Tazobactam Sod (Zosyn 3.375gm Ivpb (Pre-Docked)) 50 mls @ 100 mls/hr IVPB Q8H-IV YEISON PRN Reason: Protocol Last Admin: 06/27/16 17:12 Dose: 100 mls/hr Propofol (Diprivan -) 100 mls @ 3.549 mls/hr IVPB TITR YEISON; 10 MCG/KG/MIN PRN Reason: Protocol Last Titration: 06/27/16 12:31 Dose: 30 mcg/kg/min Ibuprofen (Motrin -) 400 mg PO Q6H PRN PRN Reason: PAIN Last Admin: 06/21/16 06:23 Dose: 400 mg Insulin Aspart (Novolog Vial Sliding Scale -) 1 vial SQ ACHS YEISON PRN Reason: Protocol Last Admin: 06/27/16 17:11 Dose: 2 units Insulin Detemir (Levemir Vial) 10 units SQ HS YEISON Last Admin: 06/26/16 23:26 Dose: 10 units Methylprednisolone Sodium Succinate (Solu-Medrol -) 40 mg IVPB Q6H-IV YEISON Last Admin: 06/27/16 14:38 Dose: 40 mg Nitroglycerin (Nitrostat -) 0.4 mg SL Q5M PRN PRN Reason: FOR CHEST PAIN Last Admin: 06/20/16 11:35 Dose: 0.4 mg Pantoprazole Sodium (Protonix 40mg Ivpb (Pre-Docked)) 40 mg IVPB DAILY [facility] Last Admin: 06/27/16 10:41 Dose: 40 mg - Objective Vital Signs: Vital Signs Temperature 99.3 F 06/27/16 14:00 Pulse Rate 68 06/27/16 16:00 Respiratory Rate 21 06/27/16 16:00 Blood Pressure 105/43 06/27/16 16:00 O2 Sat by Pulse Oximetry (%) 96 06/27/16 11:23 Constitutional: Yes: No Distress HENT: Yes: Atraumatic Neck: Yes: Supple Cardiovascular: Yes: Regular Rate and Rhythm Respiratory: Yes: Rhonchi Gastrointestinal: Yes: Normal Bowel Sounds Extremities: Yes: WNL Labs: CBC, BMP 06/27/16 05:15 06/27/16 05:15 INR, PTT INR 1.02 (0.82-1.09) 06/09/16 05:05 Problem List - Problems (1) Respiratory failure Assessment/Plan: pt is intubated apiration pna on abx on steroids Code(s): J96.90 - RESPIRATORY FAILURE, UNSP, UNSP W HYPOXIA OR HYPERCAPNIA Qualifiers: Chronicity: acute Respiratory failure complication: hypoxia and hypercapnia Qualified Code(s): J96.01 - Acute respiratory failure with hypoxia (2) Chronic respiratory failure with hypoxia Assessment/Plan: see above Code(s): J96.11 - CHRONIC RESPIRATORY FAILURE WITH HYPOXIA (3) CAD (coronary artery disease) Assessment/Plan: on meds follow up labs continue current meds Code(s): I25.10 - ATHSCL HEART DISEASE OF [place] CORONARY ARTERY W/O ANG PCTRS (4) COPD (chronic obstructive pulmonary disease) Assessment/Plan: on meds stable Code(s): J44.9 - CHRONIC OBSTRUCTIVE PULMONARY DISEASE, UNSPECIFIED (5) Chronic diastolic CHF (congestive heart failure) Assessment/Plan: stable on meds Code(s): I50.32 - CHRONIC DIASTOLIC (CONGESTIVE) HEART FAILURE (6) HLD (hyperlipidemia) Assessment/Plan: on meds Code(s): E78.5 - HYPERLIPIDEMIA, UNSPECIFIED Qualifiers: Hyperlipidemia type: unspecified Qualified Code(s): E78.5 - Hyperlipidemia, unspecified (7) HTN (hypertension) Code(s): I10 - ESSENTIAL (PRIMARY) HYPERTENSION Qualifiers: Hypertension type: essential hypertension Qualified Code(s): I10 - Essential (primary) hypertension (8) History of cigarette smoking Code(s): Z87.891 - PERSONAL HISTORY OF NICOTINE DEPENDENCE (9) Influenza Assessment/Plan: on meds id consult Code(s): J11.1 - FLU DUE TO UNIDENTIFIED INFLUENZA VIRUS W OTH RESP MANIFEST (10) Acute on chronic respiratory failure with hypoxia and hypercapnia Code(s): J96.21 - ACUTE AND CHRONIC RESPIRATORY FAILURE WITH HYPOXIA J96.22 - ACUTE AND CHRONIC RESPIRATORY FAILURE WITH HYPERCAPNIA (11) History of PSVT (paroxysmal supraventricular tachycardia) Code(s): Z86.79 - PERSONAL HISTORY OF OTHER DISEASES OF THE CIRCULATORY SYSTEM (12) Anemia Assessment/Plan: hgb stable Code(s): D64.9 - ANEMIA, UNSPECIFIED (13) NSTEMI (non-ST elevated myocardial infarction) Assessment/Plan: acute nstemi will monitor Code(s): I21.4 - NON-ST ELEVATION (NSTEMI) MYOCARDIAL INFARCTION
--- NOTE | 2016-06-27 18:51 | PN ---
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, Physician History of Present Illness: patient continues to be sedated intubated moving around weaning trial failed - Current Medication List Current Medications: Active Medications Acetaminophen (Tylenol -) 650 mg PO Q4H PRN PRN Reason: FEVER OR PAIN Last Admin: 06/23/16 18:30 Dose: 650 mg Al Hydroxide/Mg Hydroxide (Mylanta Oral Suspension -) 30 ml PO Q8H PRN PRN Reason: INDIGESTION Last Admin: 06/21/16 23:49 Dose: 30 ml Albuterol/Ipratropium (Duoneb -) 1 amp NEB QIDR [facility] Last Admin: 06/27/16 17:15 Dose: 1 amp Aspirin (Asa -) 81 mg PO DAILY [facility] Last Admin: 06/27/16 10:40 Dose: 81 mg Atorvastatin Calcium (Lipitor -) 80 mg PO HS [facility] Last Admin: 06/26/16 22:00 Dose: 80 mg Budesonide/Formoterol Fumarate (Symbicort 160/4.5mcg -) 2 puff IH BID [facility] Last Admin: 06/27/16 10:41 Dose: Not Given Chlorhexidine Gluconate (Peridex -) 15 ml MM BID [facility] Last Admin: 06/27/16 10:40 Dose: 15 ml Diltiazem HCl (Cardizem Injection -) 10 mg IVPUSH Q4H PRN PRN Reason: TACHYCARDIA Last Admin: 06/25/16 23:30 Dose: 10 mg Diltiazem HCl (Cardizem -) 60 mg PO Q6HPO [facility] Last Admin: 06/27/16 17:12 Dose: 60 mg Enalapril Maleate (Vasotec -) 5 mg PO BID [facility] Last Admin: 06/27/16 10:41 Dose: 5 mg Heparin Sodium (Porcine) (Heparin -) 5,000 unit SQ BID [facility] Last Admin: 06/27/16 10:40 Dose: 5,000 unit Hydralazine HCl (Apresoline -) 10 mg PO TID [facility] Last Admin: 06/27/16 14:35 Dose: 10 mg Piperacillin Sod/Tazobactam Sod (Zosyn 3.375gm Ivpb (Pre-Docked)) 50 mls @ 100 mls/hr IVPB Q8H-IV YEISON PRN Reason: Protocol Last Admin: 06/27/16 17:12 Dose: 100 mls/hr Propofol (Diprivan -) 100 mls @ 3.549 mls/hr IVPB TITR YEISON; 10 MCG/KG/MIN PRN Reason: Protocol Last Admin: 06/27/16 18:39 Dose: 10.647 mls/hr Ibuprofen (Motrin -) 400 mg PO Q6H PRN PRN Reason: PAIN Last Admin: 06/21/16 06:23 Dose: 400 mg Insulin Aspart (Novolog Vial Sliding Scale -) 1 vial SQ ACHS YEISON PRN Reason: Protocol Last Admin: 06/27/16 17:11 Dose: 2 units Insulin Detemir (Levemir Vial) 10 units SQ HS [facility] Last Admin: 06/26/16 23:26 Dose: 10 units Methylprednisolone Sodium Succinate (Solu-Medrol -) 40 mg IVPB Q6H-IV [facility] Last Admin: 06/27/16 14:38 Dose: 40 mg Nitroglycerin (Nitrostat -) 0.4 mg SL Q5M PRN PRN Reason: FOR CHEST PAIN Last Admin: 06/20/16 11:35 Dose: 0.4 mg Pantoprazole Sodium (Protonix 40mg Ivpb (Pre-Docked)) 40 mg IVPB DAILY [facility] Last Admin: 06/27/16 10:41 Dose: 40 mg - Objective Vital Signs: Vital Signs Temperature 98.4 F 06/27/16 18:19 Pulse Rate 78 06/27/16 18:19 Respiratory Rate 26 H 06/27/16 18:19 Blood Pressure 116/45 06/27/16 18:19 O2 Sat by Pulse Oximetry (%) 96 06/27/16 11:23 Constitutional: Yes: Other Neck: Yes: Supple Cardiovascular: Yes: Regular Rate and Rhythm Respiratory: Yes: Intubated, Mechanically Ventilated, Poor Air Entry, Rhonchi Gastrointestinal: Yes: Normal Bowel Sounds Musculoskeletal: Yes: WNL Extremities: Yes: WNL Neurological: Yes: Other Psychiatric: Yes: Other Labs: CBC, BMP 06/27/16 05:15 06/27/16 05:15 INR, PTT INR 1.02 (0.82-1.09) 06/09/16 05:05 Assessment/Plan Problem List - Problems (1) Aortic stenosis Code(s): I35.0 - NONRHEUMATIC AORTIC (VALVE) STENOSIS (2) History of PSVT (paroxysmal supraventricular tachycardia) Code(s): Z86.79 - PERSONAL HISTORY OF OTHER DISEASES OF THE CIRCULATORY SYSTEM (3) NSTEMI (non-ST elevated myocardial infarction) Code(s): I21.4 - NON-ST ELEVATION (NSTEMI) MYOCARDIAL INFARCTION (4) Respiratory failure Code(s): J96.90 - RESPIRATORY FAILURE, UNSP, UNSP W HYPOXIA OR HYPERCAPNIA Qualifiers: Chronicity: acute Respiratory failure complication: hypoxia and hypercapnia Qualified Code(s): J96.01 - Acute respiratory failure with hypoxia (5) Pulmonary hypertension Code(s): I27.2 - OTHER SECONDARY PULMONARY HYPERTENSION (6) Pulmonary nodules Code(s): R91.8 - OTHER NONSPECIFIC ABNORMAL FINDING OF LUNG FIELD (7) COPD (chronic obstructive pulmonary disease) Code(s): J44.9 - CHRONIC OBSTRUCTIVE PULMONARY DISEASE, UNSPECIFIED (8) History of cigarette smoking Code(s): Z87.891 - PERSONAL HISTORY OF NICOTINE DEPENDENCE (9) Acute on chronic respiratory failure with hypoxia and hypercapnia Code(s): J96.21 - ACUTE AND CHRONIC RESPIRATORY FAILURE WITH HYPOXIA J96.22 - ACUTE AND CHRONIC RESPIRATORY FAILURE WITH HYPERCAPNIAEPENDENCE +Troponins/Acute NSTEMI Lactic Acidosis h/o Breast Ca 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
[2016-06-27] MEDS: PIPERACILLIN/TAZOB 4.5 GM 100 ML IVPB SCH (19:18)
[2016-06-27] MEDS: INSULIN DETEMIR 100 UNITS/ML MDV SQ SCH (21:55)
[2016-06-27] MEDS: ATORVASTATIN CA 80 MG TABLET (FP) PO SCH (21:56)
[2016-06-28] MEDS: PIPERACILLIN/TAZOB 4.5 GM 100 ML IVPB SCH ×2 (02:00→09:17)
[2016-06-28] MEDS: methylPREDNISolone NA SUCC 40 MG/1 ML VIAL IVPB SCH ×4 (03:59→18:03)
[2016-06-28] MEDS: hydrALAZINE HCL 10 MG TABLET PO SCH ×3 (06:21→22:33)
[2016-06-28] MEDS: INSULIN SLIDING SCALE (NOVOLOG) 1 VIAL SQ SCH ×4 (06:21→22:34)
[2016-06-28] MEDS: dilTIAZem HCL 60 MG TABLET (FP) PO SCH ×3 (06:21→18:00)
[2016-06-28] MEDS: PROPOFOL 100 ML IVPB SCH ×2 (06:22→19:03)
[2016-06-28] MEDS: ALBUTEROL SO4 2.5/IPRATROPIUM 0.5 INH SOL 3 ML VIAL.NEB. NEB SCH ×4 (06:28→23:26)
[2016-06-28 06:35] LABS: MCH 24.8 pg (25.7-33.7); MCHC 32.1 g/dl (32.0-36.0); MEAN CELL VOLUME 77.2 fl (80-96); MEAN PLT VOLUME 9.6 fl (7.5-11.1); PLATELET COUNT 123 K/MM3 (134-434); RDW 27.8 % (11.6-15.6); WHITE BLOOD COUNT 19.8 K/mm3 (4.0-10.0)
[2016-06-28 06:47] LABS: CALCIUM 8.1 mg/dL (8.5-10.1); COCKROFT - GAULT 112.6505; CREATININE 0.4 mg/dL (0.55-1.02)
[2016-06-28 08:07] LABS: ARTERIAL BLD GAS O2 SATURATION 94.2 % (90-98.9); ARTERIAL BLOOD GAS BASE EXCESS 6.8 meq/l (-2-2); ARTERIAL BLOOD GAS HCO3 31.2 meq/L (22-26); ARTERIAL BLOOD GAS PO2 71.1 mmHg (70-100); ARTERIAL BLOOD GAS pH 7.44 (7.35-7.45)
[2016-06-28 08:08] LABS: ALLENS TEST POSITIVE; ART PUNCT SITE RIGHT RADIAL; LPM/O2% 40%; MECH. VENT. YES; PT. ON O2? YES; TYPE OF O2 MEC.VENT; VENT RATE 12; VT/PRESS 350
--- NOTE | 2016-06-28 08:33 | PN ---
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, Physician Chief Complaint: TELE: NSR, PSVT - Current Medication List Current Medications: Active Medications Acetaminophen (Tylenol -) 650 mg PO Q4H PRN PRN Reason: FEVER OR PAIN Last Admin: 06/23/16 18:30 Dose: 650 mg Al Hydroxide/Mg Hydroxide (Mylanta Oral Suspension -) 30 ml PO Q8H PRN PRN Reason: INDIGESTION Last Admin: 06/21/16 23:49 Dose: 30 ml Albuterol/Ipratropium (Duoneb -) 1 amp NEB QIDR [facility] Last Admin: 06/28/16 06:28 Dose: 1 amp Aspirin (Asa -) 81 mg PO DAILY [facility] Last Admin: 06/27/16 10:40 Dose: 81 mg Atorvastatin Calcium (Lipitor -) 80 mg PO HS [facility] Last Admin: 06/27/16 21:56 Dose: 80 mg Budesonide/Formoterol Fumarate (Symbicort 160/4.5mcg -) 2 puff IH BID [facility] Last Admin: 06/27/16 21:56 Dose: Not Given Chlorhexidine Gluconate (Peridex -) 15 ml MM BID [facility] Last Admin: 06/27/16 21:56 Dose: 15 ml Diltiazem HCl (Cardizem Injection -) 10 mg IVPUSH Q4H PRN PRN Reason: TACHYCARDIA Last Admin: 06/25/16 23:30 Dose: 10 mg Diltiazem HCl (Cardizem -) 60 mg PO Q6HPO [facility] Last Admin: 06/28/16 06:21 Dose: 60 mg Enalapril Maleate (Vasotec -) 5 mg PO BID [facility] Last Admin: 06/27/16 21:57 Dose: 5 mg Heparin Sodium (Porcine) (Heparin -) 5,000 unit SQ BID [facility] Last Admin: 06/27/16 21:54 Dose: 5,000 unit Hydralazine HCl (Apresoline -) 10 mg PO TID [facility] Last Admin: 06/28/16 06:21 Dose: 10 mg Propofol (Diprivan -) 100 mls @ 3.549 mls/hr IVPB TITR YEISON; 10 MCG/KG/MIN PRN Reason: Protocol Last Admin: 06/28/16 06:22 Dose: 10.647 mls/hr Piperacillin Sod/Tazobactam Sod (Zosyn 4.5gm Ivpb (Pre-Docked)) 100 mls @ 200 mls/hr IVPB Q8H-IV YEISON PRN Reason: Protocol Last Admin: 06/28/16 02:00 Dose: 200 mls/hr Ibuprofen (Motrin -) 400 mg PO Q6H PRN PRN Reason: PAIN Last Admin: 06/21/16 06:23 Dose: 400 mg Insulin Aspart (Novolog Vial Sliding Scale -) 1 vial SQ ACHS YEISON PRN Reason: Protocol Last Admin: 06/28/16 06:21 Dose: 2 units Insulin Detemir (Levemir Vial) 10 units SQ HS [facility] Last Admin: 06/27/16 21:55 Dose: 10 units Methylprednisolone Sodium Succinate (Solu-Medrol -) 40 mg IVPB Q6H-IV [facility] Last Admin: 06/28/16 03:59 Dose: 40 mg Nitroglycerin (Nitrostat -) 0.4 mg SL Q5M PRN PRN Reason: FOR CHEST PAIN Last Admin: 06/20/16 11:35 Dose: 0.4 mg Pantoprazole Sodium (Protonix 40mg Ivpb (Pre-Docked)) 40 mg IVPB DAILY [facility] Last Admin: 06/27/16 10:41 Dose: 40 mg - Objective Vital Signs: Vital Signs Temperature 97.2 F L 06/28/16 06:00 Pulse Rate 104 H 06/28/16 08:00 Respiratory Rate 30 H 06/28/16 08:00 Blood Pressure 159/66 06/28/16 08:00 O2 Sat by Pulse Oximetry (%) 94 L 06/28/16 08:00 Constitutional: Yes: No Distress Cardiovascular: Yes: Regular Rate and Rhythm Respiratory: Yes: Other (= breath sounds) Gastrointestinal: Yes: Soft Edema: No Labs: CBC, BMP 06/28/16 05:15 06/28/16 05:15 INR, PTT INR 1.02 (0.82-1.09) 06/09/16 05:05 Laboratory Tests 06/15/16 06/28/16 06/28/16 05:20 05:15 05:15 WBC 8.4 19.8 H Hgb 8.5 L Hct 33.0 D Plt Count 248 123 L Potassium 5.1 BUN 31 H Creatinine 0.4 L - ....Imaging EKG: Image Reviewed Assessment/Plan Recurrent acute respiratory failure requiring re-intubation, refused trach first intubation Bilateral PNA Anemia PSVT NSVT CAD s/p NSTEMI Mild COPD REC: Cont Vent support as per CCM, wean as tolerates, refused trach when last intubated, no confused and sedated Abx as per CCM/ID Cont ASA, monitor H/H Has refused cardiac cath on multiple occasions, known h/o CAD, chronic angina Continue Cardizem for PSVT
[2016-06-28] MEDS ORDERED: PT OWN MED DRAWER 7, Y5N ONE ×2 (09:11→22:28)
[2016-06-28 09:14] LABS: PLATELET ESTIMATE SLT DECREASED (NORMAL)
[2016-06-28] MEDS: PANTOPRAZOLE SODIUM 40 MG/100 ML PRE-DOCKED IVPB SCH (09:16)
[2016-06-28] MEDS: HEPARIN NA (PORCINE) 5,000 UNITS/ML 1ML VIAL SQ SCH ×2 (09:16→22:25)
[2016-06-28] MEDS: ENALAPRIL MALEATE 5 MG TABLET (FP) PO SCH ×2 (09:16→22:25)
[2016-06-28] MEDS: CHLORHEXIDINE GLUCONATE 0.12% 15ML CUP MM SCH ×2 (09:16→22:25)
[2016-06-28] MEDS: ASPIRIN 81 MG CHEWABLE TABLETS PO SCH (09:16)
[2016-06-28 09:20] LABS: ANISOCYTOSIS 2+; HYPOCHROMIA 2+; MICROCYTOSIS 2+
[2016-06-28 09:21] LABS: FRAGMENTED CELL 2+; OVALOCYTES 1+; TARGET CELLS 1+; TEAR DROP CELLS 1+
[2016-06-28] MEDS: BUDESONIDE/FORMETEROL FUMARATE 160/4.5 mcg INHALER IH SCH ×2 (11:07→22:34)
[2016-06-28] MEDS: dilTIAZem HCL 50 MG/10 ML - 10 ML VIAL IVPUSH PRN (12:14)
--- NOTE | 2016-06-28 12:44 | PN ---
Physical Exam: SUBJECTIVE: Patient seen and examined Patient edated and intubated. sedation stopped and patient venti setting changed to simv. Patient is tolerating simv mode Patient wbc has increased, on zosyn 4.5 gm q8h bed side ultrasound chest done, showed mild effusion but no septa patient has b/l upper limb edema, could be from hypoalbunemia, will increase her protein will decrease solumedrol to q8h intake. OBJECTIVE: Vital Signs Period Temp Pulse Resp BP Sys/Rasheed Pulse Ox Last 24 Hr 97.2 F-99.3 F 68-104 16-32 105-159/43-70 93-98 GENERAL: intubated, HEAD: Normal with no signs of trauma. EYES: PERRL, NECK: Trachea midline, full range of motion, supple. LUNGS: b/l decrease air entry, diffuse wheez, rales on right side, using accessory muscle but after steroid her wheezing decreased, air entry improved. and no more accessory muscle use HEART: s1s2 normal tachy ABDOMEN: Soft, nontender, nondistended, normoactive bowel sounds, no guarding. EXTREMITIES: 2+ pulses, warm, well-perfused, no edema. SKIN: Warm, dry, Laboratory Results - last 24 hr 06/24/16 06/27/16 06/27/16 12:30 12:20 16:55 WBC RBC Hgb Hct MCV MCHC RDW Plt Count MPV Neutrophils % Lymphocytes % Monocytes % Differential Comment Platelet Estimate Hypochromic-Microcytic Anisocytosis Microcytosis Target Cells Tear Drop Cells Ovalocytes Fragmented RBCs Morphology Comment Puncture Site ABG pH ABG pCO2 at Pt Temp ABG pO2 at Pt Temp ABG HCO3 ABG O2 Sat (Measured) ABG O2 Content ABG Base Excess Rafi Test O2 Delivery Device Oxygen Flow Rate Vent Mode Vent Rate Mechanical Rate PEEP Pressure Support Vent Sodium Potassium Chloride Carbon Dioxide Anion Gap BUN Creatinine POC Glucometer [phone] Random Glucose Calcium Blood Type A POSITIVE Antibody Screen Negative Crossmatch See Detail Spec Expiration Date 06/27/16 06/28/16 06/28/16 21:18 05:15 05:15 WBC 19.8 H RBC 3.44 L Hgb 8.5 L Hct 26.5 L MCV 77.2 L MCHC 32.1 RDW 27.8 H Plt Count 123 L MPV 9.6 Neutrophils % 95.0 H Lymphocytes % 3.0 L Monocytes % 2.0 L Differential Comment Manual diff done Platelet Estimate Slt decreased Hypochromic-Microcytic 2+ Anisocytosis 2+ Microcytosis 2+ Target Cells 1+ Tear Drop Cells 1+ Ovalocytes 1+ Fragmented RBCs 2+ Morphology Comment Slide scanned Puncture Site ABG pH ABG pCO2 at Pt Temp ABG pO2 at Pt Temp ABG HCO3 ABG O2 Sat (Measured) ABG O2 Content ABG Base Excess Rafi Test O2 Delivery Device Oxygen Flow Rate Vent Mode Vent Rate Mechanical Rate PEEP Pressure Support Vent Sodium 141 Potassium 5.1 Chloride 103 Carbon Dioxide 33 H Anion Gap 5 L BUN 31 H Creatinine 0.4 L POC Glucometer 190.37157 Random Glucose 109 H D Calcium 8.1 L Blood Type Antibody Screen Crossmatch Spec Expiration Date 06/28/16 06/28/16 05:46 07:05 WBC RBC Hgb Hct MCV MCHC RDW Plt Count MPV Neutrophils % Lymphocytes % Monocytes % Differential Comment Platelet Estimate Hypochromic-Microcytic Anisocytosis Microcytosis Target Cells Tear Drop Cells Ovalocytes Fragmented RBCs Morphology Comment Puncture Site Right radial ABG pH 7.44 ABG pCO2 at Pt Temp 46.3 H ABG pO2 at Pt Temp 71.1 ABG HCO3 31.2 H ABG O2 Sat (Measured) 94.2 ABG O2 Content 11.8 L ABG Base Excess 6.8 H Rafi Test Positive O2 Delivery Device Mec.vent Oxygen Flow Rate 40% Vent Mode A/c Vent Rate 12 Mechanical Rate Yes PEEP 5.0 Pressure Support Vent 350 Sodium Potassium Chloride Carbon Dioxide Anion Gap BUN Creatinine POC Glucometer 145.14884 Random Glucose Calcium Blood Type Antibody Screen Crossmatch Spec Expiration Date Active Medications Generic Name Dose Route Start Last Admin Trade Name Freq PRN Reason Stop Dose Admin Acetaminophen 650 mg 06/15/16 19:22 06/23/16 18:30 Tylenol - PO 650 mg Q4H PRN Administration FEVER OR PAIN Al Hydroxide/Mg Hydroxide 30 ml 06/21/16 23:41 06/21/16 23:49 Mylanta Oral Suspension - PO 30 ml Q8H PRN Administration INDIGESTION Albuterol/Ipratropium 1 amp 06/22/16 18:00 06/28/16 11:05 Duoneb - NEB 1 amp QIDR [facility] Administration Aspirin 81 mg 06/16/16 10:00 06/28/16 09:16 Asa - PO 81 mg DAILY YE[facility] Administration Atorvastatin Calcium 80 mg 06/15/16 22:00 06/27/16 21:56 Lipitor - PO 80 mg HS YEISON Administration Budesonide/Formoterol Fumarate 2 puff 06/21/16 12:30 06/28/16 11:07 Symbicort 160/4.5mcg - IH Not Given BID YEISON Chlorhexidine Gluconate 15 ml 06/24/16 22:00 06/28/16 09:16 Peridex - MM 15 ml BID YEISON Administration Diltiazem HCl 10 mg 06/25/16 09:08 06/28/16 12:14 Cardizem Injection - IVPUSH 10 mg Q4H PRN Administration TACHYCARDIA Diltiazem HCl 60 mg 06/26/16 12:00 06/28/16 11:43 Cardizem - PO 60 mg Q6HPO [facility] Administration Enalapril Maleate 5 mg 06/15/16 22:00 06/28/16 09:16 Vasotec - PO 5 mg BID YE[facility] Administration Heparin Sodium (Porcine) 5,000 unit 06/27/16 10:00 06/28/16 09:16 Heparin - SQ 5,000 unit BID [facility] Administration Hydralazine HCl 10 mg 06/15/16 22:00 06/28/16 06:21 Apresoline - PO 10 mg TID YEISON Administration Propofol 100 mls @ 3.549 mls/hr 06/23/16 00:45 06/28/16 10:30 Diprivan - IVPB 0 mcg/kg/min TITR [facility] Titration Protocol 10 MCG/KG/MIN Piperacillin Sod/Tazobactam Sod 100 mls @ 200 mls/hr 06/27/16 19:00 06/28/16 09 :17 Zosyn 4.5gm Ivpb (Pre-Docked) IVPB 200 mls/hr Q8H-IV YEISON Administration Protocol Ibuprofen 400 mg 06/19/16 19:17 06/21/16 06:23 Motrin - PO 400 mg Q6H PRN Administration PAIN Insulin Aspart 1 vial 06/25/16 22:00 06/28/16 06:21 Novolog Vial Sliding Scale - SQ 2 units ACHS [facility] Administration Protocol Insulin Detemir 10 units 06/26/16 22:00 06/27/16 21:55 Levemir Vial SQ 10 units HS [facility] Administration Methylprednisolone Sodium Succinate 40 mg 06/28/16 18:00 06/28/16 12:19 Solu-Medrol - IVPB Not Given Q8H-IV [facility] Nitroglycerin 0.4 mg 06/20/16 11:09 06/20/16 11:35 Nitrostat - SL 0.4 mg Q5M PRN Administration FOR CHEST PAIN Pantoprazole Sodium 40 mg 06/23/16 10:00 06/28/16 09:16 Protonix 40mg Ivpb (Pre-Docked) IVPB 40 mg DAILY [facility] Administration ABG Results ABG pH 7.44 (7.35-7.45) 06/28/16 07:05 ABG pCO2 at Pt Temp 46.3 mmHg (35-45) H 06/28/16 07:05 ABG pO2 at Pt Temp 71.1 mmHg (70-100) 06/28/16 07:05 ABG HCO3 31.2 meq/L (22-26) H 06/28/16 07:05 ABG O2 Sat (Measured) 94.2 % (90-98.9) 06/28/16 07:05 ABG O2 Content 11.8 % vol (15-22) L 06/28/16 07:05 ABG Base Excess 6.8 meq/l (-2-2) H 06/28/16 07:05 ASSESSMENT/PLAN: acute hypercapneic respiratory failure due to aspiration pneumonia sedation stopped. keep spo2 over 90 Nebulizers YEISON and PRN on solumedrom 40 q8h on zosyn as per id bed side usg shows mild effusion but no septa sputum : psudomonas, urine citrobacter koseri follow abg in morning ID on case on duoneb neb q6h standing Trop i elevated could be stress induce trending down Shock improved could be from aspiration pneumonia altered mental status could be from metabolic encephalopathy improved sedation stopped H/O HTN/ afib continue enalapril 5 bid and hydralazine 10 tid on cardiazem 60mg q6h h/o copd on duoneb on solumedrol 40 q8h DM on sliding scale novalog influenza positive completed a course of tamiflue Microcytic anemia HGB stable 8.7 FEN electrolyet follow in am tube feed Prophylaxis DVT: heparin sq GI: PPI iv Code status - Full code dispo : admit in icu Visit type - Emergency Visit Emergency Visit: Yes ED Registration Date: 05/30/16 Care time: The patient presented to the Emergency Department on the above date and was hospitalized for further evaluation of their emergent condition. - New Patient This patient is new to me today: No - Critical Care Critical Care patient: Yes Total Critical Care Time (in minutes): 45 Critical Care Statement: The care of this patient involved high complexity decision making to prevent further life threatening deterioration of the patient 's condition and/or to evalute & treat vital organ system(s) failure or risk of failure.
--- NOTE | 2016-06-28 12:46 | PN ---
Teaching Attending Note Name of Resident: Griffin Bell ATTENDING PHYSICIAN STATEMENT I saw and evaluated the patient. I reviewed the resident's note and discussed the case with the resident. I agree with the resident's findings and plan as documented. SUBJECTIVE: Pt seen and examined in the ICU. Remains intubated, arousable off sedation. Episode of SVT this AM, given cardizem IVP. OBJECTIVE: Last Vital Signs Temp Pulse Resp BP Pulse Ox 99.0 F 93 H 29 H 158/66 93 L 06/28/16 10:00 06/28/16 11:47 06/28/16 12:05 06/28/16 11:47 06/28/16 09:53 Intake & Output 06/25/16 06/26/16 06/27/16 06/28/16 23:59 23:59 23:59 23:59 Intake Total 4929 2830.4 3157 1280 Output Total 1500 1100 1600 100 Balance 3429 1730.4 1557 1180 Weight 126 lb 127 lb 6.4 oz 127 lb 14.4 oz 127 lb 8 oz Gen: intubated, arousable Heart: RRR Lung: scattered rhonchi Abd: soft, nontender Ext: UE edema CBC, BMP 06/28/16 05:15 06/28/16 05:15 Active Medications Acetaminophen (Tylenol -) 650 mg PO Q4H PRN PRN Reason: FEVER OR PAIN Last Admin: 06/23/16 18:30 Dose: 650 mg Al Hydroxide/Mg Hydroxide (Mylanta Oral Suspension -) 30 ml PO Q8H PRN PRN Reason: INDIGESTION Last Admin: 06/21/16 23:49 Dose: 30 ml Albuterol/Ipratropium (Duoneb -) 1 amp NEB QIDR [facility] Last Admin: 06/28/16 11:05 Dose: 1 amp Aspirin (Asa -) 81 mg PO DAILY [facility] Last Admin: 06/28/16 09:16 Dose: 81 mg Atorvastatin Calcium (Lipitor -) 80 mg PO HS [facility] Last Admin: 06/27/16 21:56 Dose: 80 mg Budesonide/Formoterol Fumarate (Symbicort 160/4.5mcg -) 2 puff IH BID [facility] Last Admin: 06/28/16 11:07 Dose: Not Given Chlorhexidine Gluconate (Peridex -) 15 ml MM BID [facility] Last Admin: 06/28/16 09:16 Dose: 15 ml Diltiazem HCl (Cardizem Injection -) 10 mg IVPUSH Q4H PRN PRN Reason: TACHYCARDIA Last Admin: 06/28/16 12:14 Dose: 10 mg Diltiazem HCl (Cardizem -) 60 mg PO Q6HPO [facility] Last Admin: 06/28/16 11:43 Dose: 60 mg Enalapril Maleate (Vasotec -) 5 mg PO BID [facility] Last Admin: 06/28/16 09:16 Dose: 5 mg Heparin Sodium (Porcine) (Heparin -) 5,000 unit SQ BID [facility] Last Admin: 06/28/16 09:16 Dose: 5,000 unit Hydralazine HCl (Apresoline -) 10 mg PO TID [facility] Last Admin: 06/28/16 06:21 Dose: 10 mg Propofol (Diprivan -) 100 mls @ 3.549 mls/hr IVPB TITR [facility]; 10 MCG/KG/MIN PRN Reason: Protocol Last Titration: 06/28/16 10:30 Dose: 0 mcg/kg/min Piperacillin Sod/Tazobactam Sod (Zosyn 4.5gm Ivpb (Pre-Docked)) 100 mls @ 200 mls/hr IVPB Q8H-IV [facility] PRN Reason: Protocol Last Admin: 06/28/16 09:17 Dose: 200 mls/hr Ibuprofen (Motrin -) 400 mg PO Q6H PRN PRN Reason: PAIN Last Admin: 06/21/16 06:23 Dose: 400 mg Insulin Aspart (Novolog Vial Sliding Scale -) 1 vial SQ ACHS [facility] PRN Reason: Protocol Last Admin: 06/28/16 12:41 Dose: 6 units Insulin Detemir (Levemir Vial) 10 units SQ HS [facility] Last Admin: 06/27/16 21:55 Dose: 10 units Methylprednisolone Sodium Succinate (Solu-Medrol -) 40 mg IVPB Q8H-IV [facility] Last Admin: 06/28/16 12:19 Dose: Not Given Nitroglycerin (Nitrostat -) 0.4 mg SL Q5M PRN PRN Reason: FOR CHEST PAIN Last Admin: 06/20/16 11:35 Dose: 0.4 mg Pantoprazole Sodium (Protonix 40mg Ivpb (Pre-Docked)) 40 mg IVPB DAILY [facility] Last Admin: 06/28/16 09:16 Dose: 40 mg ASSESSMENT AND PLAN: Acute on Chronic Hypoxic and Hypercapneic Respiratory Failure Influenza A s/p treatment Pneumonia - ?Aspiration Acute COPD Exacerbation CAD +Troponins/Acute NSTEMI h/o Breast Ca 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
[2016-06-28] MEDS: BANATROL PLUS POWDER PACKET PO SCH ×2 (13:23→22:33)
--- NOTE | 2016-06-28 17:15 | PN ---
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, Physician History of Present Illness: continues to be sedated and intubated patient having dirrhoea now wbc still climbing - Current Medication List Current Medications: Active Medications Acetaminophen (Tylenol -) 650 mg PO Q4H PRN PRN Reason: FEVER OR PAIN Last Admin: 06/23/16 18:30 Dose: 650 mg Al Hydroxide/Mg Hydroxide (Mylanta Oral Suspension -) 30 ml PO Q8H PRN PRN Reason: INDIGESTION Last Admin: 06/21/16 23:49 Dose: 30 ml Albuterol/Ipratropium (Duoneb -) 1 amp NEB QIDR [facility] Last Admin: 06/28/16 11:05 Dose: 1 amp Aspirin (Asa -) 81 mg PO DAILY [facility] Last Admin: 06/28/16 09:16 Dose: 81 mg Atorvastatin Calcium (Lipitor -) 80 mg PO HS [facility] Last Admin: 06/27/16 21:56 Dose: 80 mg Budesonide/Formoterol Fumarate (Symbicort 160/4.5mcg -) 2 puff IH BID [facility] Last Admin: 06/28/16 11:07 Dose: Not Given Chlorhexidine Gluconate (Peridex -) 15 ml MM BID [facility] Last Admin: 06/28/16 09:16 Dose: 15 ml Diltiazem HCl (Cardizem Injection -) 10 mg IVPUSH Q4H PRN PRN Reason: TACHYCARDIA Last Admin: 06/28/16 12:14 Dose: 10 mg Diltiazem HCl (Cardizem -) 60 mg PO Q6HPO [facility] Last Admin: 06/28/16 11:43 Dose: 60 mg Enalapril Maleate (Vasotec -) 5 mg PO BID [facility] Last Admin: 06/28/16 09:16 Dose: 5 mg Heparin Sodium (Porcine) (Heparin -) 5,000 unit SQ BID [facility] Last Admin: 06/28/16 09:16 Dose: 5,000 unit Hydralazine HCl (Apresoline -) 10 mg PO TID [facility] Last Admin: 06/28/16 13:24 Dose: 10 mg Propofol (Diprivan -) 100 mls @ 3.549 mls/hr IVPB TITR [facility]; 10 MCG/KG/MIN PRN Reason: Protocol Last Titration: 06/28/16 10:30 Dose: 0 mcg/kg/min Piperacillin Sod/Tazobactam Sod (Zosyn 4.5gm Ivpb (Pre-Docked)) 100 mls @ 200 mls/hr IVPB Q8H-IV [facility] PRN Reason: Protocol Last Admin: 06/28/16 09:17 Dose: 200 mls/hr Metronidazole (Flagyl 500mg Premixed Ivpb -) 100 mls @ 100 mls/hr IVPB Q8H-IV [facility] Ibuprofen (Motrin -) 400 mg PO Q6H PRN PRN Reason: PAIN Last Admin: 06/21/16 06:23 Dose: 400 mg Insulin Aspart (Novolog Vial Sliding Scale -) 1 vial SQ ACHS [facility] PRN Reason: Protocol Last Admin: 06/28/16 12:41 Dose: 6 units Insulin Detemir (Levemir Vial) 10 units SQ HS [facility] Last Admin: 06/27/16 21:55 Dose: 10 units Methylprednisolone Sodium Succinate (Solu-Medrol -) 40 mg IVPB Q8H-IV [facility] Last Admin: 06/28/16 12:19 Dose: Not Given Nitroglycerin (Nitrostat -) 0.4 mg SL Q5M PRN PRN Reason: FOR CHEST PAIN Last Admin: 06/20/16 11:35 Dose: 0.4 mg Pantoprazole Sodium (Protonix 40mg Ivpb (Pre-Docked)) 40 mg IVPB DAILY [facility] Last Admin: 06/28/16 09:16 Dose: 40 mg Vancomycin HCl (Vancomycin Oral Solution) 125 mg PO Q6HPO [facility] - Objective Vital Signs: Vital Signs Temperature 98.5 F 06/28/16 13:33 Pulse Rate 80 06/28/16 15:43 Respiratory Rate 24 06/28/16 15:43 Blood Pressure 132/58 06/28/16 15:43 O2 Sat by Pulse Oximetry (%) 94 L 06/28/16 13:26 Constitutional: Yes: Calm Neck: Yes: Supple, Other Cardiovascular: Yes: Regular Rate and Rhythm Respiratory: Yes: Intubated, Mechanically Ventilated Gastrointestinal: Yes: Normal Bowel Sounds, Soft Extremities: Yes: WNL Integumentary: Yes: WNL Neurological: Yes: Other Psychiatric: Yes: Other Labs: CBC, BMP 06/28/16 05:15 06/28/16 05:15 INR, PTT INR 1.02 (0.82-1.09) 06/09/16 05:05 - ....Imaging Chest X-ray: Report Reviewed, Image Reviewed Assessment/Plan Problem List - Problems (1) Aortic stenosis Code(s): I35.0 - NONRHEUMATIC AORTIC (VALVE) STENOSIS (2) History of PSVT (paroxysmal supraventricular tachycardia) Code(s): Z86.79 - PERSONAL HISTORY OF OTHER DISEASES OF THE CIRCULATORY SYSTEM (3) NSTEMI (non-ST elevated myocardial infarction) Code(s): I21.4 - NON-ST ELEVATION (NSTEMI) MYOCARDIAL INFARCTION (4) Respiratory failure Code(s): J96.90 - RESPIRATORY FAILURE, UNSP, UNSP W HYPOXIA OR HYPERCAPNIA Qualifiers: Chronicity: acute Respiratory failure complication: hypoxia and hypercapnia Qualified Code(s): J96.01 - Acute respiratory failure with hypoxia (5) Pulmonary hypertension Code(s): I27.2 - OTHER SECONDARY PULMONARY HYPERTENSION (6) Pulmonary nodules Code(s): R91.8 - OTHER NONSPECIFIC ABNORMAL FINDING OF LUNG FIELD (7) COPD (chronic obstructive pulmonary disease) Code(s): J44.9 - CHRONIC OBSTRUCTIVE PULMONARY DISEASE, UNSPECIFIED (8) History of cigarette smoking Code(s): Z87.891 - PERSONAL HISTORY OF NICOTINE DEPENDENCE (9) Acute on chronic respiratory failure with hypoxia and hypercapnia Code(s): J96.21 - ACUTE AND CHRONIC RESPIRATORY FAILURE WITH HYPOXIA J96.22 - ACUTE AND CHRONIC RESPIRATORY FAILURE WITH HYPERCAPNIAEPENDENCE +Troponins/Acute NSTEMI Lactic Acidosis h/o Breast Ca 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
--- NOTE | 2016-06-28 18:04 | PN ---
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, Physician History of Present Illness: intubated and sedated - Current Medication List Current Medications: Active Medications Acetaminophen (Tylenol -) 650 mg PO Q4H PRN PRN Reason: FEVER OR PAIN Last Admin: 06/23/16 18:30 Dose: 650 mg Al Hydroxide/Mg Hydroxide (Mylanta Oral Suspension -) 30 ml PO Q8H PRN PRN Reason: INDIGESTION Last Admin: 06/21/16 23:49 Dose: 30 ml Albuterol/Ipratropium (Duoneb -) 1 amp NEB QIDR [facility] Last Admin: 06/28/16 11:05 Dose: 1 amp Aspirin (Asa -) 81 mg PO DAILY [facility] Last Admin: 06/28/16 09:16 Dose: 81 mg Atorvastatin Calcium (Lipitor -) 80 mg PO HS [facility] Last Admin: 06/27/16 21:56 Dose: 80 mg Budesonide/Formoterol Fumarate (Symbicort 160/4.5mcg -) 2 puff IH BID [facility] Last Admin: 06/28/16 11:07 Dose: Not Given Chlorhexidine Gluconate (Peridex -) 15 ml MM BID [facility] Last Admin: 06/28/16 09:16 Dose: 15 ml Diltiazem HCl (Cardizem Injection -) 10 mg IVPUSH Q4H PRN PRN Reason: TACHYCARDIA Last Admin: 06/28/16 12:14 Dose: 10 mg Diltiazem HCl (Cardizem -) 60 mg PO Q6HPO [facility] Last Admin: 06/28/16 11:43 Dose: 60 mg Enalapril Maleate (Vasotec -) 5 mg PO BID [facility] Last Admin: 06/28/16 09:16 Dose: 5 mg Heparin Sodium (Porcine) (Heparin -) 5,000 unit SQ BID [facility] Last Admin: 06/28/16 09:16 Dose: 5,000 unit Hydralazine HCl (Apresoline -) 10 mg PO TID [facility] Last Admin: 06/28/16 13:24 Dose: 10 mg Propofol (Diprivan -) 100 mls @ 3.549 mls/hr IVPB TITR [facility]; 10 MCG/KG/MIN PRN Reason: Protocol Last Titration: 06/28/16 10:30 Dose: 0 mcg/kg/min Metronidazole (Flagyl 500mg Premixed Ivpb -) 100 mls @ 100 mls/hr IVPB Q8H-IV [facility] Piperacillin Sod/Tazobactam Sod (Zosyn 3.375gm Ivpb (Pre-Docked)) 50 mls @ 100 mls/hr IVPB Q8H-IV [facility] PRN Reason: Protocol Ibuprofen (Motrin -) 400 mg PO Q6H PRN PRN Reason: PAIN Last Admin: 06/21/16 06:23 Dose: 400 mg Insulin Aspart (Novolog Vial Sliding Scale -) 1 vial SQ ACHS [facility] PRN Reason: Protocol Last Admin: 06/28/16 12:41 Dose: 6 units Insulin Detemir (Levemir Vial) 10 units SQ HS [facility] Last Admin: 06/27/16 21:55 Dose: 10 units Methylprednisolone Sodium Succinate (Solu-Medrol -) 40 mg IVPB Q8H-IV [facility] Last Admin: 06/28/16 12:19 Dose: Not Given Nitroglycerin (Nitrostat -) 0.4 mg SL Q5M PRN PRN Reason: FOR CHEST PAIN Last Admin: 06/20/16 11:35 Dose: 0.4 mg Pantoprazole Sodium (Protonix 40mg Ivpb (Pre-Docked)) 40 mg IVPB DAILY [facility] Last Admin: 06/28/16 09:16 Dose: 40 mg Vancomycin HCl (Vancomycin Oral Solution) 125 mg PO Q6HPO [facility] - Objective Vital Signs: Vital Signs Temperature 99.0 F 06/28/16 17:00 Pulse Rate 75 06/28/16 17:00 Respiratory Rate 20 06/28/16 17:00 Blood Pressure 113/46 06/28/16 17:00 O2 Sat by Pulse Oximetry (%) 94 L 06/28/16 13:26 Constitutional: Yes: Calm HENT: Yes: Atraumatic Neck: Yes: Supple Cardiovascular: Yes: Regular Rate and Rhythm Respiratory: Yes: CTA Bilaterally Gastrointestinal: Yes: Normal Bowel Sounds Extremities: Yes: WNL Labs: CBC, BMP 06/28/16 05:15 06/28/16 05:15 INR, PTT INR 1.02 (0.82-1.09) 06/09/16 05:05 Problem List - Problems (1) Respiratory failure Assessment/Plan: pt is intubated apiration pna on abx on steroids Code(s): J96.90 - RESPIRATORY FAILURE, UNSP, UNSP W HYPOXIA OR HYPERCAPNIA Qualifiers: Chronicity: acute Respiratory failure complication: hypoxia and hypercapnia Qualified Code(s): J96.01 - Acute respiratory failure with hypoxia (2) Chronic respiratory failure with hypoxia Assessment/Plan: see above Code(s): J96.11 - CHRONIC RESPIRATORY FAILURE WITH HYPOXIA (3) CAD (coronary artery disease) Assessment/Plan: on meds follow up labs continue current meds Code(s): I25.10 - ATHSCL HEART DISEASE OF [place] CORONARY ARTERY W/O ANG PCTRS (4) COPD (chronic obstructive pulmonary disease) Assessment/Plan: on meds stable Code(s): J44.9 - CHRONIC OBSTRUCTIVE PULMONARY DISEASE, UNSPECIFIED (5) Chronic diastolic CHF (congestive heart failure) Assessment/Plan: stable on meds Code(s): I50.32 - CHRONIC DIASTOLIC (CONGESTIVE) HEART FAILURE (6) HLD (hyperlipidemia) Assessment/Plan: on meds Code(s): E78.5 - HYPERLIPIDEMIA, UNSPECIFIED Qualifiers: Hyperlipidemia type: unspecified Qualified Code(s): E78.5 - Hyperlipidemia, unspecified (7) HTN (hypertension) Assessment/Plan: on meds stable Code(s): I10 - ESSENTIAL (PRIMARY) HYPERTENSION Qualifiers: Hypertension type: essential hypertension Qualified Code(s): I10 - Essential (primary) hypertension (8) History of cigarette smoking Code(s): Z87.891 - PERSONAL HISTORY OF NICOTINE DEPENDENCE (9) Influenza Assessment/Plan: on meds id consult Code(s): J11.1 - FLU DUE TO UNIDENTIFIED INFLUENZA VIRUS W OTH RESP MANIFEST (10) Acute on chronic respiratory failure with hypoxia and hypercapnia Code(s): J96.21 - ACUTE AND CHRONIC RESPIRATORY FAILURE WITH HYPOXIA J96.22 - ACUTE AND CHRONIC RESPIRATORY FAILURE WITH HYPERCAPNIA (11) History of PSVT (paroxysmal supraventricular tachycardia) Code(s): Z86.79 - PERSONAL HISTORY OF OTHER DISEASES OF THE CIRCULATORY SYSTEM (12) Anemia Code(s): D64.9 - ANEMIA, UNSPECIFIED (13) NSTEMI (non-ST elevated myocardial infarction) Code(s): I21.4 - NON-ST ELEVATION (NSTEMI) MYOCARDIAL INFARCTION
[2016-06-28] MEDS: METRONIDAZOLE 500 MG PREMIXED 100 ML IVPB SCH (18:05)
[2016-06-28] MEDS: PIPERACILLIN/TAZOB 3.375 GM 50 ML IVPB SCH (18:07)
[2016-06-28] MEDS: VANCOMYCIN 250 MG/5 ML ORAL SOLUTION PO SCH (19:28)
[2016-06-28] MEDS: ATORVASTATIN CA 80 MG TABLET (FP) PO SCH (22:25)
[2016-06-28] MEDS: INSULIN DETEMIR 100 UNITS/ML MDV SQ SCH (22:29)
[2016-06-29] MEDS: dilTIAZem HCL 60 MG TABLET (FP) PO SCH ×4 (00:05→17:16)
[2016-06-29] MEDS: VANCOMYCIN 250 MG/5 ML ORAL SOLUTION PO SCH ×4 (00:05→17:16)
[2016-06-29] MEDS: METRONIDAZOLE 500 MG PREMIXED 100 ML IVPB SCH ×3 (01:21→17:15)
[2016-06-29] MEDS: PIPERACILLIN/TAZOB 3.375 GM 50 ML IVPB SCH ×3 (01:22→17:15)
[2016-06-29] MEDS: methylPREDNISolone NA SUCC 40 MG/1 ML VIAL IVPB SCH ×3 (01:22→17:16)
[2016-06-29] MEDS: PROPOFOL 100 ML IVPB SCH (05:38)
[2016-06-29] MEDS: hydrALAZINE HCL 10 MG TABLET PO SCH ×3 (05:39→21:57)
[2016-06-29] MEDS: ALBUTEROL SO4 2.5/IPRATROPIUM 0.5 INH SOL 3 ML VIAL.NEB. NEB SCH ×4 (05:43→23:22)
[2016-06-29] MEDS: INSULIN SLIDING SCALE (NOVOLOG) 1 VIAL SQ SCH ×4 (06:00→21:12)
[2016-06-29 06:12] LABS: MCH 24.8 pg (25.7-33.7); MCHC 32.2 g/dl (32.0-36.0); MEAN CELL VOLUME 77.2 fl (80-96); RDW 28.1 % (11.6-15.6); WHITE BLOOD COUNT 20.7 K/mm3 (4.0-10.0)
[2016-06-29 06:48] LABS: CREATININE 0.4 mg/dL (0.55-1.02)
[2016-06-29] MEDS ORDERED: SODIUM POLYSTYRENE SULFONATE 15 GM/60 ML BOTTLE PO ONE (07:08)
[2016-06-29 07:37] LABS: ARTERIAL BLD GAS O2 SATURATION 92.6 % (90-98.9); ARTERIAL BLOOD GAS BASE EXCESS 6.9 meq/l (-2-2); ARTERIAL BLOOD GAS HCO3 31.1 meq/L (22-26); ARTERIAL BLOOD GAS pH 7.46 (7.35-7.45)
[2016-06-29 07:38] LABS: ALLENS TEST POSITIVE; ART PUNCT SITE RIGHT RADIAL; ARTERIAL BLOOD GAS PO2 65.4 mmHg (70-100); LPM/O2% 40%; MECH. VENT. YES; PT. ON O2? YES; TYPE OF O2 VENT; VENT RATE 12; VT/PRESS 350
--- NOTE | 2016-06-29 08:38 | PN ---
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, Physician Chief Complaint: intubated, alert - Current Medication List Current Medications: Active Medications Acetaminophen (Tylenol -) 650 mg PO Q4H PRN PRN Reason: FEVER OR PAIN Last Admin: 06/23/16 18:30 Dose: 650 mg Albuterol/Ipratropium (Duoneb -) 1 amp NEB QIDR [facility], [facility] Last Admin: 06/29/16 05:43 Dose: 1 amp Aspirin (Asa -) 81 mg PO DAILY [facility] Last Admin: 06/28/16 09:16 Dose: 81 mg Atorvastatin Calcium (Lipitor -) 80 mg PO HS [facility] Last Admin: 06/28/16 22:25 Dose: 80 mg Budesonide/Formoterol Fumarate (Symbicort 160/4.5mcg -) 2 puff IH BID [facility] Last Admin: 06/28/16 22:34 Dose: Not Given Chlorhexidine Gluconate (Peridex -) 15 ml MM BID [facility] Last Admin: 06/28/16 22:25 Dose: 15 ml Diltiazem HCl (Cardizem Injection -) 10 mg IVPUSH Q4H PRN PRN Reason: TACHYCARDIA Last Admin: 06/28/16 12:14 Dose: 10 mg Diltiazem HCl (Cardizem -) 60 mg PO Q6HPO [facility] Last Admin: 06/29/16 05:39 Dose: 60 mg Enalapril Maleate (Vasotec -) 5 mg PO BID [facility] Last Admin: 06/28/16 22:25 Dose: 5 mg Heparin Sodium (Porcine) (Heparin -) 5,000 unit SQ BID [facility] Last Admin: 06/28/16 22:25 Dose: 5,000 unit Hydralazine HCl (Apresoline -) 10 mg PO TID [facility] Last Admin: 06/29/16 05:39 Dose: 10 mg Propofol (Diprivan -) 100 mls @ 3.549 mls/hr IVPB TITR YEISON; 10 MCG/KG/MIN PRN Reason: Protocol Last Admin: 06/29/16 05:38 Dose: 3.549 mls/hr Metronidazole (Flagyl 500mg Premixed Ivpb -) 100 mls @ 100 mls/hr IVPB Q8H-IV [facility] Last Admin: 06/29/16 01:21 Dose: 100 mls/hr Piperacillin Sod/Tazobactam Sod (Zosyn 3.375gm Ivpb (Pre-Docked)) 50 mls @ 100 mls/hr IVPB Q8H-IV [facility]ISON PRN Reason: Protocol Last Admin: 06/29/16 01:22 Dose: 100 mls/hr Ibuprofen (Motrin -) 400 mg PO Q6H PRN PRN Reason: PAIN Last Admin: 06/21/16 06:23 Dose: 400 mg Insulin Aspart (Novolog Vial Sliding Scale -) 1 vial SQ ACHS YEISON PRN Reason: Protocol Last Admin: 06/29/16 06:00 Dose: 6 units Insulin Detemir (Levemir Vial) 10 units SQ HS YEISON Last Admin: 06/28/16 22:29 Dose: 10 units Methylprednisolone Sodium Succinate (Solu-Medrol -) 40 mg IVPB Q8H-IV [facility]ISON Last Admin: 06/29/16 01:22 Dose: 40 mg Nitroglycerin (Nitrostat -) 0.4 mg SL Q5M PRN PRN Reason: FOR CHEST PAIN Last Admin: 06/20/16 11:35 Dose: 0.4 mg Pantoprazole Sodium (Protonix 40mg Ivpb (Pre-Docked)) 40 mg IVPB DAILY [facility] Last Admin: 06/28/16 09:16 Dose: 40 mg Vancomycin HCl (Vancomycin Oral Solution) 125 mg PO Q6HPO [facility] Last Admin: 06/29/16 05:39 Dose: 125 mg - Objective Vital Signs: Vital Signs Temperature 98.6 F 06/29/16 06:00 Pulse Rate 86 06/29/16 08:00 Respiratory Rate 24 06/29/16 08:00 Blood Pressure 141/57 06/29/16 08:00 O2 Sat by Pulse Oximetry (%) 97 06/28/16 22:00 Constitutional: Yes: No Distress Cardiovascular: Yes: Regular Rate and Rhythm Respiratory: Yes: Other (= breath sounds bilaterally) Gastrointestinal: Yes: Soft Edema: No Neurological: Yes: Alert Labs: CBC, BMP 06/29/16 05:15 06/29/16 05:15 INR, PTT INR 1.02 (0.82-1.09) 06/09/16 05:05 Laboratory Tests 06/29/16 06/29/16 05:15 05:15 WBC 20.7 H Hct 28.9 L Plt Count Pending Potassium 5.3 H Creatinine 0.4 L - ....Imaging EKG: Image Reviewed (Tele: NSR, short self limited runs PSVT) Assessment/Plan Recurrent acute respiratory failure requiring re-intubation, refused trach first intubation Bilateral PNA Anemia PSVT CAD s/p NSTEMI Mild COPD REC: Cont Vent support as per CCM, wean as tolerates, refused trach when last intubated Abx as per CCM/ID Cont ASA, monitor H/H Has refused cardiac cath on multiple occasions, known h/o CAD, chronic angina Continue Cardizem for PSVT and telemetry monitoring.
[2016-06-29 09:33] LABS: HYPOCHROMIA 2+; MICROCYTOSIS 2+
[2016-06-29 09:34] LABS: TARGET CELLS 2+
[2016-06-29 09:37] LABS: PLATELET ESTIMATE DECREASED (NORMAL)
[2016-06-29 09:38] LABS: MEAN PLT VOLUME 9.5 fl (7.5-11.1); PLATELET COUNT 135 K/MM3 (134-434)
[2016-06-29] MEDS: CHLORHEXIDINE GLUCONATE 0.12% 15ML CUP MM SCH ×2 (09:38→21:11)
[2016-06-29] MEDS: HEPARIN NA (PORCINE) 5,000 UNITS/ML 1ML VIAL SQ SCH ×2 (09:38→21:11)
[2016-06-29] MEDS: ASPIRIN 81 MG CHEWABLE TABLETS PO SCH (09:38)
[2016-06-29] MEDS: PANTOPRAZOLE SODIUM 40 MG/100 ML PRE-DOCKED IVPB SCH (09:39)
[2016-06-29] MEDS: ENALAPRIL MALEATE 5 MG TABLET (FP) PO SCH ×2 (09:39→21:13)
[2016-06-29] MEDS: BUDESONIDE/FORMETEROL FUMARATE 160/4.5 mcg INHALER IH SCH ×2 (09:39→21:13)
[2016-06-29] MEDS ORDERED: SODIUM POLYSTYRENE SULFONATE 15 GM/60 ML BOTTLE ONE (09:56)
[2016-06-29] MEDS: BANATROL PLUS POWDER PACKET PO SCH ×3 (10:27→21:11)
[2016-06-29] MEDS ORDERED: FUROSEMIDE 40 MG/4 ML INJECTABLE VIAL IVPUSH ONE ×2 (11:00→20:20)
--- NOTE | 2016-06-29 11:34 | PN ---
Physical Exam: SUBJECTIVE: Patient seen and examined OBJECTIVE: Vital Signs Period Temp Pulse Resp BP Sys/Rasheed Pulse Ox Last 24 Hr 98.4 F-99.0 F 70-100 19-31 106-158/42-66 94-97 GENERAL: The patient is awake, alert, and fully oriented, in no acute distress. HEAD: Normal with no signs of trauma. EYES: PERRL, extraocular movements intact, sclera anicteric, conjunctiva clear. No ptosis. ENT: Ears normal, nares patent, oropharynx clear without exudates, moist mucous membranes. NECK: Trachea midline, full range of motion, supple. LUNGS: Breath sounds equal, clear to auscultation bilaterally, no wheezes, no crackles, no accessory muscle use. HEART: Regular rate and rhythm, S1, S2 without murmur, rub or gallop. ABDOMEN: Soft, nontender, nondistended, normoactive bowel sounds, no guarding, no rebound, no hepatosplenomegaly, no masses. EXTREMITIES: 2+ pulses, warm, well-perfused, no edema. NEUROLOGICAL: Cranial nerves II through XII grossly intact. Normal speech, gait not observed. PSYCH: Normal mood, normal affect. SKIN: Warm, dry, normal turgor, no rashes or lesions noted Laboratory Results - last 24 hr 06/28/16 06/28/16 06/28/16 12:38 17:55 22:01 WBC RBC Hgb Hct MCV MCHC RDW Plt Count MPV Neutrophils % Lymphocytes % Monocytes % Differential Comment Platelet Estimate Platelet Comment Hypochromic-Microcytic Basophilic Stippling Microcytosis Macrocytosis Target Cells Puncture Site ABG pH ABG pCO2 at Pt Temp ABG pO2 at Pt Temp ABG HCO3 ABG O2 Sat (Measured) ABG O2 Content ABG Base Excess Rafi Test O2 Delivery Device Oxygen Flow Rate Vent Mode Vent Rate Mechanical Rate PEEP Pressure Support Vent Sodium Potassium Chloride Carbon Dioxide Anion Gap BUN Creatinine POC Glucometer 216.19925 229.87723 192.81316 Random Glucose Calcium 06/29/16 06/29/16 06/29/16 05:15 05:15 05:57 WBC 20.7 H RBC 3.74 Hgb 9.3 L Hct 28.9 L MCV 77.2 L MCHC 32.2 RDW 28.1 H Plt Count 135 MPV 9.5 Neutrophils % 91.0 H Lymphocytes % 6.0 L D Monocytes % 3.0 L Differential Comment Manual diff done Platelet Estimate Decreased Platelet Comment No clumping noted Hypochromic-Microcytic 2+ Basophilic Stippling 2+ Microcytosis 2+ Macrocytosis Few Target Cells 2+ Puncture Site ABG pH ABG pCO2 at Pt Temp ABG pO2 at Pt Temp ABG HCO3 ABG O2 Sat (Measured) ABG O2 Content ABG Base Excess Rafi Test O2 Delivery Device Oxygen Flow Rate Vent Mode Vent Rate Mechanical Rate PEEP Pressure Support Vent Sodium 140 Potassium 5.3 H Chloride 102 Carbon Dioxide 29 Anion Gap 9 BUN 28 H Creatinine 0.4 L POC Glucometer [phone] Random Glucose 199 H D Calcium 8.0 L 06/29/16 07:05 WBC RBC Hgb Hct MCV MCHC RDW Plt Count MPV Neutrophils % Lymphocytes % Monocytes % Differential Comment Platelet Estimate Platelet Comment Hypochromic-Microcytic Basophilic Stippling Microcytosis Macrocytosis Target Cells Puncture Site Right radial ABG pH 7.46 H ABG pCO2 at Pt Temp 43.9 ABG pO2 at Pt Temp 65.4 L ABG HCO3 31.1 H ABG O2 Sat (Measured) 92.6 ABG O2 Content 13.4 L ABG Base Excess 6.9 H Rafi Test Positive O2 Delivery Device Vent Oxygen Flow Rate 40% Vent Mode A/c Vent Rate 12 Mechanical Rate Yes PEEP 5.0 Pressure Support Vent 350 Sodium Potassium Chloride Carbon Dioxide Anion Gap BUN Creatinine POC Glucometer Random Glucose Calcium Active Medications Generic Name Dose Route Start Last Admin Trade Name Freq PRN Reason Stop Dose Admin Acetaminophen 650 mg 06/15/16 19:22 06/23/16 18:30 Tylenol - PO 650 mg Q4H PRN Administration FEVER OR PAIN Albuterol/Ipratropium 1 amp 06/22/16 18:00 06/29/16 05:43 Duoneb - NEB 1 amp QIDR YEISON Administration Aspirin 81 mg 06/16/16 10:00 06/29/16 09:38 Asa - PO 81 mg DAILY YEISON Administration Atorvastatin Calcium 80 mg 06/15/16 22:00 06/28/16 22:25 Lipitor - PO 80 mg HS YEISON Administration Budesonide/Formoterol Fumarate 2 puff 06/21/16 12:30 06/29/16 09:39 Symbicort 160/4.5mcg - IH Not Given BID YEISON Chlorhexidine Gluconate 15 ml 06/24/16 22:00 06/29/16 09:38 Peridex - MM 15 ml BID YEISON Administration Diltiazem HCl 10 mg 06/25/16 09:08 06/28/16 12:14 Cardizem Injection - IVPUSH 10 mg Q4H PRN Administration TACHYCARDIA Diltiazem HCl 60 mg 06/26/16 12:00 06/29/16 05:39 Cardizem - PO 60 mg Q6HPO YEISON Administration Enalapril Maleate 5 mg 06/15/16 22:00 06/29/16 09:39 Vasotec - PO 5 mg BID YEISON Administration Furosemide 40 mg 06/29/16 11:00 Lasix Injection - IVPUSH 06/29/16 11:01 ONCE ONE Furosemide 40 mg 06/29/16 20:20 Lasix Injection - IVPUSH 06/29/16 20:21 ONCE ONE Heparin Sodium (Porcine) 5,000 unit 06/27/16 10:00 06/29/16 09:38 Heparin - SQ 5,000 unit BID YEISON Administration Hydralazine HCl 10 mg 06/15/16 22:00 06/29/16 05:39 Apresoline - PO 10 mg TID YEISON Administration Propofol 100 mls @ 3.549 mls/hr 06/23/16 00:45 06/29/16 05:38 Diprivan - IVPB 3.549 mls/hr TITR YEISON Administration Protocol 10 MCG/KG/MIN Metronidazole 100 mls @ 100 mls/hr 06/28/16 18:00 06/29/16 09:38 Flagyl 500mg Premixed Ivpb - IVPB 100 mls/hr Q8H-IV YEISON Administration Piperacillin Sod/Tazobactam Sod 50 mls @ 100 mls/hr 06/28/16 18:00 06/29/16 09: 39 Zosyn 3.375gm Ivpb (Pre-Docked) IVPB 100 mls/hr Q8H-IV YEISON Administration Protocol Ibuprofen 400 mg 06/19/16 19:17 06/21/16 06:23 Motrin - PO 400 mg Q6H PRN Administration PAIN Insulin Aspart 1 vial 06/25/16 22:00 06/29/16 06:00 Novolog Vial Sliding Scale - SQ 6 units ACHS YEISON Administration Protocol Insulin Detemir 10 units 06/26/16 22:00 06/28/16 22:29 Levemir Vial SQ 10 units HS YEISON Administration Methylprednisolone Sodium Succinate 40 mg 06/28/16 18:00 06/29/16 09:38 Solu-Medrol - IVPB 40 mg Q8H-IV YEISON Administration Nitroglycerin 0.4 mg 06/20/16 11:09 06/20/16 11:35 Nitrostat - SL 0.4 mg Q5M PRN Administration FOR CHEST PAIN Pantoprazole Sodium 40 mg 06/23/16 10:00 06/29/16 09:39 Protonix 40mg Ivpb (Pre-Docked) IVPB 40 mg DAILY YEISON Administration Vancomycin HCl 125 mg 06/28/16 18:00 06/29/16 05:39 Vancomycin Oral Solution PO 125 mg Q6HPO YEISON Administration ABG Results ABG pH 7.46 (7.35-7.45) H 06/29/16 07:05 ABG pCO2 at Pt Temp 43.9 mmHg (35-45) 06/29/16 07:05 ABG pO2 at Pt Temp 65.4 mmHg (70-100) L 06/29/16 07:05 ABG HCO3 31.1 meq/L (22-26) H 06/29/16 07:05 ABG O2 Sat (Measured) 92.6 % (90-98.9) 06/29/16 07:05 ABG O2 Content 13.4 % vol (15-22) L 06/29/16 07:05 ABG Base Excess 6.9 meq/l (-2-2) H 06/29/16 07:05 ASSESSMENT/PLAN: acute hypercapneic respiratory failure due to aspiration pneumonia sedation again started last night as patient got agitated keep spo2 over 90 Nebulizers YEISON and PRN on solumedrom 40 q8h on zosyn as per id, wbc increased to 20 bed side usg shows mild effusion but no septa sputum : psudomonas, urine citrobacter koseri abg in morning ID on case on duoneb neb q6h standing cxr reviewd, congested, will give he lasix 40 iv Trop i elevated could be stress induce trending down hyperkalemia kaxylate given follow k in evening diarrhoea follow c. diff ID on case on metronidazole and vanco Shock improved could be from aspiration pneumonia altered mental status could be from metabolic encephalopathy improved sedation stopped H/O HTN/ afib continue enalapril 5 bid and hydralazine 10 tid on cardiazem 60mg q6h h/o copd on duoneb on solumedrol 40 q8h DM on sliding scale novalog influenza positive completed a course of tamiflue Microcytic anemia HGB stable 9.3 FEN electrolyet follow in am tube feed Prophylaxis DVT: heparin sq GI: PPI iv Code status - Full code dispo : admit in icu Visit type - Emergency Visit Emergency Visit: Yes ED Registration Date: 05/30/16 Care time: The patient presented to the Emergency Department on the above date and was hospitalized for further evaluation of their emergent condition. - New Patient This patient is new to me today: No - Critical Care Critical Care patient: Yes Total Critical Care Time (in minutes): 45 Critical Care Statement: The care of this patient involved high complexity decision making to prevent further life threatening deterioration of the patient 's condition and/or to evalute & treat vital organ system(s) failure or risk of failure.
[2016-06-29] MEDS ORDERED: FUROSEMIDE 40 MG/4 ML INJECTABLE VIAL ONE ×2 (11:45→20:55)
--- NOTE | 2016-06-29 12:01 | PN ---
Teaching Attending Note Name of Resident: Griffin Bell ATTENDING PHYSICIAN STATEMENT I saw and evaluated the patient. I reviewed the resident's note and discussed the case with the resident. I agree with the resident's findings and plan as documented. SUBJECTIVE: Pt seen and examined in the ICU. Remains intubated, sedated. Arousable. No fevers recorded. OBJECTIVE: Last Vital Signs Temp Pulse Resp BP Pulse Ox 98.3 F 86 24 138/61 95 06/29/16 10:00 06/29/16 11:42 06/29/16 11:42 06/29/16 11:42 06/29/16 09:30 Intake & Output 06/26/16 06/27/16 06/28/16 06/29/16 23:59 23:59 23:59 23:59 Intake Total 2830.4 3157 2822 1940 Output Total 1100 1600 1500 1200 Balance 1730.4 1557 1322 740 Weight 127 lb 6.4 oz 127 lb 14.4 oz 127 lb 8 oz 115 lb 15.41 oz Gen: intubated, sedated but arousable Heart: RRR Lung: bilateral rhonchi Abd: soft, nontender Ext: + edema CBC, BMP 06/29/16 05:15 06/29/16 05:15 Active Medications Acetaminophen (Tylenol -) 650 mg PO Q4H PRN PRN Reason: FEVER OR PAIN Last Admin: 06/23/16 18:30 Dose: 650 mg Albuterol/Ipratropium (Duoneb -) 1 amp NEB QIDR [facility] Last Admin: 06/29/16 05:43 Dose: 1 amp Aspirin (Asa -) 81 mg PO DAILY [facility] Last Admin: 06/29/16 09:38 Dose: 81 mg Atorvastatin Calcium (Lipitor -) 80 mg PO HS [facility] Last Admin: 06/28/16 22:25 Dose: 80 mg Budesonide/Formoterol Fumarate (Symbicort 160/4.5mcg -) 2 puff IH BID [facility] Last Admin: 06/29/16 09:39 Dose: Not Given Chlorhexidine Gluconate (Peridex -) 15 ml MM BID [facility] Last Admin: 06/29/16 09:38 Dose: 15 ml Diltiazem HCl (Cardizem Injection -) 10 mg IVPUSH Q4H PRN PRN Reason: TACHYCARDIA Last Admin: 06/28/16 12:14 Dose: 10 mg Diltiazem HCl (Cardizem -) 60 mg PO Q6HPO [facility] Last Admin: 06/29/16 05:39 Dose: 60 mg Enalapril Maleate (Vasotec -) 5 mg PO BID [facility] Last Admin: 06/29/16 09:39 Dose: 5 mg Furosemide (Lasix Injection -) 40 mg IVPUSH ONCE ONE Stop: 06/29/16 20:21 Heparin Sodium (Porcine) (Heparin -) 5,000 unit SQ BID [facility] Last Admin: 06/29/16 09:38 Dose: 5,000 unit Hydralazine HCl (Apresoline -) 10 mg PO TID [facility] Last Admin: 06/29/16 05:39 Dose: 10 mg Propofol (Diprivan -) 100 mls @ 3.549 mls/hr IVPB TITR YEISON; 10 MCG/KG/MIN PRN Reason: Protocol Last Admin: 06/29/16 05:38 Dose: 3.549 mls/hr Metronidazole (Flagyl 500mg Premixed Ivpb -) 100 mls @ 100 mls/hr IVPB Q8H-IV [facility] Last Admin: 06/29/16 09:38 Dose: 100 mls/hr Piperacillin Sod/Tazobactam Sod (Zosyn 3.375gm Ivpb (Pre-Docked)) 50 mls @ 100 mls/hr IVPB Q8H-IV YEISON PRN Reason: Protocol Last Admin: 06/29/16 09:39 Dose: 100 mls/hr Ibuprofen (Motrin -) 400 mg PO Q6H PRN PRN Reason: PAIN Last Admin: 06/21/16 06:23 Dose: 400 mg Insulin Aspart (Novolog Vial Sliding Scale -) 1 vial SQ ACHS YEISON PRN Reason: Protocol Last Admin: 06/29/16 11:41 Dose: 8 units Insulin Detemir (Levemir Vial) 10 units SQ HS [facility] Last Admin: 06/28/16 22:29 Dose: 10 units Methylprednisolone Sodium Succinate (Solu-Medrol -) 40 mg IVPB Q8H-IV [facility] Last Admin: 06/29/16 09:38 Dose: 40 mg Nitroglycerin (Nitrostat -) 0.4 mg SL Q5M PRN PRN Reason: FOR CHEST PAIN Last Admin: 06/20/16 11:35 Dose: 0.4 mg Pantoprazole Sodium (Protonix 40mg Ivpb (Pre-Docked)) 40 mg IVPB DAILY [facility] Last Admin: 06/29/16 09:39 Dose: 40 mg Vancomycin HCl (Vancomycin Oral Solution) 125 mg PO Q6HPO [facility] Last Admin: 06/29/16 05:39 Dose: 125 mg ASSESSMENT AND PLAN: Acute on Chronic Hypoxic and Hypercapneic Respiratory Failure Influenza A s/p treatment Pneumonia - ?Aspiration Acute COPD Exacerbation CAD +Troponins/Acute NSTEMI h/o Breast Ca 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
--- NOTE | 2016-06-29 12:11 | PN ---
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, Physician History of Present Illness: continues to be sedated and intubated patient having dirrhoea now wbc still climbing - Current Medication List Current Medications: Active Medications Acetaminophen (Tylenol -) 650 mg PO Q4H PRN PRN Reason: FEVER OR PAIN Last Admin: 06/23/16 18:30 Dose: 650 mg Albuterol/Ipratropium (Duoneb -) 1 amp NEB QIDR [facility] Last Admin: 06/29/16 05:43 Dose: 1 amp Aspirin (Asa -) 81 mg PO DAILY [facility] Last Admin: 06/29/16 09:38 Dose: 81 mg Atorvastatin Calcium (Lipitor -) 80 mg PO HS [facility] Last Admin: 06/28/16 22:25 Dose: 80 mg Budesonide/Formoterol Fumarate (Symbicort 160/4.5mcg -) 2 puff IH BID [facility] Last Admin: 06/29/16 09:39 Dose: Not Given Chlorhexidine Gluconate (Peridex -) 15 ml MM BID [facility] Last Admin: 06/29/16 09:38 Dose: 15 ml Diltiazem HCl (Cardizem Injection -) 10 mg IVPUSH Q4H PRN PRN Reason: TACHYCARDIA Last Admin: 06/28/16 12:14 Dose: 10 mg Diltiazem HCl (Cardizem -) 60 mg PO Q6HPO [facility] Last Admin: 06/29/16 12:09 Dose: 60 mg Enalapril Maleate (Vasotec -) 5 mg PO BID [facility] Last Admin: 06/29/16 09:39 Dose: 5 mg Furosemide (Lasix Injection -) 40 mg IVPUSH ONCE ONE Stop: 06/29/16 20:21 Heparin Sodium (Porcine) (Heparin -) 5,000 unit SQ BID [facility] Last Admin: 06/29/16 09:38 Dose: 5,000 unit Hydralazine HCl (Apresoline -) 10 mg PO TID [facility] Last Admin: 06/29/16 05:39 Dose: 10 mg Propofol (Diprivan -) 100 mls @ 3.549 mls/hr IVPB TITR YEISON; 10 MCG/KG/MIN PRN Reason: Protocol Last Admin: 06/29/16 05:38 Dose: 3.549 mls/hr Metronidazole (Flagyl 500mg Premixed Ivpb -) 100 mls @ 100 mls/hr IVPB Q8H-IV [facility] Last Admin: 06/29/16 09:38 Dose: 100 mls/hr Piperacillin Sod/Tazobactam Sod (Zosyn 3.375gm Ivpb (Pre-Docked)) 50 mls @ 100 mls/hr IVPB Q8H-IV [facility]ISON PRN Reason: Protocol Last Admin: 06/29/16 09:39 Dose: 100 mls/hr Ibuprofen (Motrin -) 400 mg PO Q6H PRN PRN Reason: PAIN Last Admin: 06/21/16 06:23 Dose: 400 mg Insulin Aspart (Novolog Vial Sliding Scale -) 1 vial SQ ACHS YEISON PRN Reason: Protocol Last Admin: 06/29/16 11:41 Dose: 8 units Insulin Detemir (Levemir Vial) 10 units SQ HS [facility] Last Admin: 06/28/16 22:29 Dose: 10 units Methylprednisolone Sodium Succinate (Solu-Medrol -) 40 mg IVPB Q8H-IV [facility] Last Admin: 06/29/16 09:38 Dose: 40 mg Nitroglycerin (Nitrostat -) 0.4 mg SL Q5M PRN PRN Reason: FOR CHEST PAIN Last Admin: 06/20/16 11:35 Dose: 0.4 mg Pantoprazole Sodium (Protonix 40mg Ivpb (Pre-Docked)) 40 mg IVPB DAILY [facility] Last Admin: 06/29/16 09:39 Dose: 40 mg Vancomycin HCl (Vancomycin Oral Solution) 125 mg PO Q6HPO [facility] Last Admin: 06/29/16 12:09 Dose: 125 mg - Objective Vital Signs: Vital Signs Temperature 98.3 F 06/29/16 10:00 Pulse Rate 86 06/29/16 11:42 Respiratory Rate 24 06/29/16 11:42 Blood Pressure 138/61 06/29/16 11:42 O2 Sat by Pulse Oximetry (%) 95 06/29/16 09:30 Constitutional: Yes: No Distress, Calm Neck: Yes: Supple Cardiovascular: Yes: Regular Rate and Rhythm Respiratory: Yes: Regular, Intubated, Mechanically Ventilated Gastrointestinal: Yes: Normal Bowel Sounds, Soft Musculoskeletal: Yes: WNL Extremities: Yes: WNL Neurological: Yes: Other Psychiatric: Yes: Other Labs: CBC, BMP 06/29/16 05:15 06/29/16 05:15 INR, PTT INR 1.02 (0.82-1.09) 06/09/16 05:05 Assessment/Plan Problem List - Problems (1) Aortic stenosis Code(s): I35.0 - NONRHEUMATIC AORTIC (VALVE) STENOSIS (2) History of PSVT (paroxysmal supraventricular tachycardia) Code(s): Z86.79 - PERSONAL HISTORY OF OTHER DISEASES OF THE CIRCULATORY SYSTEM (3) NSTEMI (non-ST elevated myocardial infarction) Code(s): I21.4 - NON-ST ELEVATION (NSTEMI) MYOCARDIAL INFARCTION (4) Respiratory failure Code(s): J96.90 - RESPIRATORY FAILURE, UNSP, UNSP W HYPOXIA OR HYPERCAPNIA Qualifiers: Chronicity: acute Respiratory failure complication: hypoxia and hypercapnia Qualified Code(s): J96.01 - Acute respiratory failure with hypoxia (5) Pulmonary hypertension Code(s): I27.2 - OTHER SECONDARY PULMONARY HYPERTENSION (6) Pulmonary nodules Code(s): R91.8 - OTHER NONSPECIFIC ABNORMAL FINDING OF LUNG FIELD (7) COPD (chronic obstructive pulmonary disease) Code(s): J44.9 - CHRONIC OBSTRUCTIVE PULMONARY DISEASE, UNSPECIFIED (8) History of cigarette smoking Code(s): Z87.891 - PERSONAL HISTORY OF NICOTINE DEPENDENCE (9) Acute on chronic respiratory failure with hypoxia and hypercapnia Code(s): J96.21 - ACUTE AND CHRONIC RESPIRATORY FAILURE WITH HYPOXIA J96.22 - ACUTE AND CHRONIC RESPIRATORY FAILURE WITH HYPERCAPNIAEPENDENCE +Troponins/Acute NSTEMI Lactic Acidosis h/o Breast Ca 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
[2016-06-29] MEDS ORDERED: PROPOFOL 100 ML ONE (14:35)
--- NOTE | 2016-06-29 16:50 | PN ---
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, Physician History of Present Illness: intubated and sedated - Current Medication List Current Medications: Active Medications Acetaminophen (Tylenol -) 650 mg PO Q4H PRN PRN Reason: FEVER OR PAIN Last Admin: 06/23/16 18:30 Dose: 650 mg Albuterol/Ipratropium (Duoneb -) 1 amp NEB QIDR [facility] Last Admin: 06/29/16 12:57 Dose: 1 amp Aspirin (Asa -) 81 mg PO DAILY [facility] Last Admin: 06/29/16 09:38 Dose: 81 mg Atorvastatin Calcium (Lipitor -) 80 mg PO HS [facility] Last Admin: 06/28/16 22:25 Dose: 80 mg Budesonide/Formoterol Fumarate (Symbicort 160/4.5mcg -) 2 puff IH BID [facility] Last Admin: 06/29/16 09:39 Dose: Not Given Chlorhexidine Gluconate (Peridex -) 15 ml MM BID [facility] Last Admin: 06/29/16 09:38 Dose: 15 ml Diltiazem HCl (Cardizem Injection -) 10 mg IVPUSH Q4H PRN PRN Reason: TACHYCARDIA Last Admin: 06/28/16 12:14 Dose: 10 mg Diltiazem HCl (Cardizem -) 60 mg PO Q6HPO [facility] Last Admin: 06/29/16 12:09 Dose: 60 mg Enalapril Maleate (Vasotec -) 5 mg PO BID [facility] Last Admin: 06/29/16 09:39 Dose: 5 mg Furosemide (Lasix Injection -) 40 mg IVPUSH ONCE ONE Stop: 06/29/16 20:21 Heparin Sodium (Porcine) (Heparin -) 5,000 unit SQ BID [facility] Last Admin: 06/29/16 09:38 Dose: 5,000 unit Hydralazine HCl (Apresoline -) 10 mg PO TID [facility] Last Admin: 06/29/16 14:27 Dose: 10 mg Propofol (Diprivan -) 100 mls @ 3.549 mls/hr IVPB TITR [facility]; 10 MCG/KG/MIN PRN Reason: Protocol Last Admin: 06/29/16 05:38 Dose: 3.549 mls/hr Metronidazole (Flagyl 500mg Premixed Ivpb -) 100 mls @ 100 mls/hr IVPB Q8H-IV [facility] Last Admin: 06/29/16 09:38 Dose: 100 mls/hr Piperacillin Sod/Tazobactam Sod (Zosyn 3.375gm Ivpb (Pre-Docked)) 50 mls @ 100 mls/hr IVPB Q8H-IV [facility] PRN Reason: Protocol Last Admin: 06/29/16 09:39 Dose: 100 mls/hr Ibuprofen (Motrin -) 400 mg PO Q6H PRN PRN Reason: PAIN Last Admin: 06/21/16 06:23 Dose: 400 mg Insulin Aspart (Novolog Vial Sliding Scale -) 1 vial SQ ACHS [facility] PRN Reason: Protocol Last Admin: 06/29/16 16:43 Dose: 10 units Insulin Detemir (Levemir Vial) 10 units SQ HS [facility] Last Admin: 06/28/16 22:29 Dose: 10 units Methylprednisolone Sodium Succinate (Solu-Medrol -) 40 mg IVPB Q8H-IV [facility] Last Admin: 06/29/16 09:38 Dose: 40 mg Nitroglycerin (Nitrostat -) 0.4 mg SL Q5M PRN PRN Reason: FOR CHEST PAIN Last Admin: 06/20/16 11:35 Dose: 0.4 mg Pantoprazole Sodium (Protonix 40mg Ivpb (Pre-Docked)) 40 mg IVPB DAILY [facility] Last Admin: 06/29/16 09:39 Dose: 40 mg Vancomycin HCl (Vancomycin Oral Solution) 125 mg PO Q6HPO [facility] Last Admin: 06/29/16 12:09 Dose: 125 mg - Objective Vital Signs: Vital Signs Temperature 98.4 F 06/29/16 14:00 Pulse Rate 88 06/29/16 14:00 Respiratory Rate 22 06/29/16 14:42 Blood Pressure 102/55 06/29/16 14:00 O2 Sat by Pulse Oximetry (%) 95 06/29/16 09:30 Constitutional: Yes: No Distress HENT: Yes: Atraumatic Neck: Yes: Supple Cardiovascular: Yes: Regular Rate and Rhythm Respiratory: Yes: Rhonchi Gastrointestinal: Yes: Normal Bowel Sounds Edema: LLE: Trace, RLE: Trace Labs: CBC, BMP 06/29/16 05:15 06/29/16 05:15 INR, PTT INR 1.02 (0.82-1.09) 06/09/16 05:05 Problem List - Problems (1) Respiratory failure Assessment/Plan: pt is intubated apiration pna on abx on steroids Code(s): J96.90 - RESPIRATORY FAILURE, UNSP, UNSP W HYPOXIA OR HYPERCAPNIA Qualifiers: Chronicity: acute Respiratory failure complication: hypoxia and hypercapnia Qualified Code(s): J96.01 - Acute respiratory failure with hypoxia (2) Chronic respiratory failure with hypoxia Assessment/Plan: see above Code(s): J96.11 - CHRONIC RESPIRATORY FAILURE WITH HYPOXIA (3) CAD (coronary artery disease) Assessment/Plan: on meds follow up labs continue current meds Code(s): I25.10 - ATHSCL HEART DISEASE OF [place] CORONARY ARTERY W/O ANG PCTRS (4) COPD (chronic obstructive pulmonary disease) Assessment/Plan: on meds stable Code(s): J44.9 - CHRONIC OBSTRUCTIVE PULMONARY DISEASE, UNSPECIFIED (5) Chronic diastolic CHF (congestive heart failure) Assessment/Plan: stable on meds Code(s): I50.32 - CHRONIC DIASTOLIC (CONGESTIVE) HEART FAILURE (6) HLD (hyperlipidemia) Assessment/Plan: on meds Code(s): E78.5 - HYPERLIPIDEMIA, UNSPECIFIED Qualifiers: Hyperlipidemia type: unspecified Qualified Code(s): E78.5 - Hyperlipidemia, unspecified (7) HTN (hypertension) Assessment/Plan: on meds stable Code(s): I10 - ESSENTIAL (PRIMARY) HYPERTENSION Qualifiers: Hypertension type: essential hypertension Qualified Code(s): I10 - Essential (primary) hypertension (8) History of cigarette smoking Code(s): Z87.891 - PERSONAL HISTORY OF NICOTINE DEPENDENCE (9) Influenza Assessment/Plan: on meds id consult Code(s): J11.1 - FLU DUE TO UNIDENTIFIED INFLUENZA VIRUS W OTH RESP MANIFEST (10) Acute on chronic respiratory failure with hypoxia and hypercapnia Code(s): J96.21 - ACUTE AND CHRONIC RESPIRATORY FAILURE WITH HYPOXIA J96.22 - ACUTE AND CHRONIC RESPIRATORY FAILURE WITH HYPERCAPNIA (11) History of PSVT (paroxysmal supraventricular tachycardia) Code(s): Z86.79 - PERSONAL HISTORY OF OTHER DISEASES OF THE CIRCULATORY SYSTEM (12) Anemia Assessment/Plan: hgb stable Code(s): D64.9 - ANEMIA, UNSPECIFIED (13) NSTEMI (non-ST elevated myocardial infarction) Assessment/Plan: acute nstemi will monitor Code(s): I21.4 - NON-ST ELEVATION (NSTEMI) MYOCARDIAL INFARCTION
[2016-06-29] MEDS ORDERED: PT OWN MED DRAWER 7, Y5N ONE (20:51)
[2016-06-29] MEDS: ATORVASTATIN CA 80 MG TABLET (FP) PO SCH (21:12)
[2016-06-29] MEDS: INSULIN DETEMIR 100 UNITS/ML MDV SQ SCH (21:12)
[2016-06-29] MEDS: IBUPROFEN 400 MG TABLET (FP) PO PRN (21:18)
[2016-06-30] MEDS: dilTIAZem HCL 60 MG TABLET (FP) PO SCH ×5 (00:18→23:24)
[2016-06-30] MEDS: VANCOMYCIN 250 MG/5 ML ORAL SOLUTION PO SCH ×3 (00:19→13:11)
[2016-06-30] MEDS: PROPOFOL 100 ML IVPB SCH (00:50)
[2016-06-30] MEDS: methylPREDNISolone NA SUCC 40 MG/1 ML VIAL IVPB SCH ×3 (02:05→17:27)
[2016-06-30] MEDS: PIPERACILLIN/TAZOB 3.375 GM 50 ML IVPB SCH ×2 (02:05→09:47)
[2016-06-30] MEDS: METRONIDAZOLE 500 MG PREMIXED 100 ML IVPB SCH ×2 (02:06→09:46)
[2016-06-30] MEDS: ALBUTEROL SO4 2.5/IPRATROPIUM 0.5 INH SOL 3 ML VIAL.NEB. NEB SCH ×4 (05:42→23:30)
[2016-06-30] MEDS ORDERED: PT OWN MED DRAWER 7, Y5N ONE ×2 (05:46→21:39)
[2016-06-30] MEDS: INSULIN SLIDING SCALE (NOVOLOG) 1 VIAL SQ SCH ×4 (06:40→22:26)
[2016-06-30] MEDS: hydrALAZINE HCL 10 MG TABLET PO SCH ×3 (06:40→22:23)
[2016-06-30 06:43] LABS: MCH 24.8 pg (25.7-33.7); MCHC 32.5 g/dl (32.0-36.0); MEAN CELL VOLUME 76.2 fl (80-96); MEAN PLT VOLUME 9.6 fl (7.5-11.1); PLATELET COUNT 177 K/MM3 (134-434); WHITE BLOOD COUNT 21.5 K/mm3 (4.0-10.0)
[2016-06-30 07:01] LABS: ALBUMIN 1.3 g/dl (3.4-5.0); ANION GAP 8 (8-16); CALCIUM 8.2 mg/dL (8.5-10.1); CO2 34 mmol/L (21-32); GLUCOSE,RANDOM 236 mg/dL (74-106); MAGNESIUM 2.2 mg/dL (1.8-2.4); PHOSPHOROUS 3.6 mg/dL (2.5-4.9)
[2016-06-30 07:04] LABS: ALK PHOS 84 U/L (45-117); BILIRUBIN,TOTAL 0.3 mg/dL (0.2-1.0); CREATININE 0.5 mg/dL (0.55-1.02); SGOT/AST 35 U/L (15-37); SGPT/ALT 24 U/L (12-78); TOT PROT 4.5 g/dl (6.4-8.2)
[2016-06-30 07:33] LABS: ARTERIAL BLD GAS O2 SATURATION 92.9 % (90-98.9); ARTERIAL BLOOD GAS BASE EXCESS 10.5 meq/l (-2-2); ARTERIAL BLOOD GAS HCO3 34.6 meq/L (22-26); ARTERIAL BLOOD GAS PO2 65.2 mmHg (70-100)
[2016-06-30 07:34] LABS: ALLENS TEST POSITIVE; ART PUNCT SITE RIGHT RADIAL; LPM/O2% 40%; PT. ON O2? YES; TYPE OF O2 MEC.VENT
[2016-06-30 07:37] LABS: MECH. VENT. YES
[2016-06-30 07:38] LABS: VENT RATE 10; VT/PRESS 350
[2016-06-30 08:45] LABS: PLATELET ESTIMATE ADEQUATE (NORMAL)
[2016-06-30] MEDS: CHLORHEXIDINE GLUCONATE 0.12% 15ML CUP MM SCH ×2 (09:45→22:24)
[2016-06-30] MEDS: PANTOPRAZOLE SODIUM 40 MG/100 ML PRE-DOCKED IVPB SCH (09:45)
[2016-06-30] MEDS: ASPIRIN 81 MG CHEWABLE TABLETS PO SCH (09:46)
[2016-06-30] MEDS: HEPARIN NA (PORCINE) 5,000 UNITS/ML 1ML VIAL SQ SCH ×2 (09:46→22:23)
[2016-06-30] MEDS: BANATROL PLUS POWDER PACKET PO SCH ×3 (09:47→22:23)
[2016-06-30] MEDS: BUDESONIDE/FORMETEROL FUMARATE 160/4.5 mcg INHALER IH SCH ×2 (09:47→22:24)
[2016-06-30] MEDS: ENALAPRIL MALEATE 5 MG TABLET (FP) PO SCH ×2 (09:47→22:24)
--- NOTE | 2016-06-30 09:55 | PN ---
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, Physician Chief Complaint: intubated Alert - Current Medication List Current Medications: Active Medications Acetaminophen (Tylenol -) 650 mg PO Q4H PRN PRN Reason: FEVER OR PAIN Last Admin: 06/23/16 18:30 Dose: 650 mg Albuterol/Ipratropium (Duoneb -) 1 amp NEB QIDR [facility] Last Admin: 06/30/16 05:42 Dose: 1 amp Aspirin (Asa -) 81 mg PO DAILY [facility] Last Admin: 06/30/16 09:46 Dose: 81 mg Atorvastatin Calcium (Lipitor -) 80 mg PO HS [facility] Last Admin: 06/29/16 21:12 Dose: 80 mg Budesonide/Formoterol Fumarate (Symbicort 160/4.5mcg -) 2 puff IH BID [facility] Last Admin: 06/30/16 09:47 Dose: Not Given Chlorhexidine Gluconate (Peridex -) 15 ml MM BID [facility] Last Admin: 06/30/16 09:45 Dose: 15 ml Diltiazem HCl (Cardizem Injection -) 10 mg IVPUSH Q4H PRN PRN Reason: TACHYCARDIA Last Admin: 06/28/16 12:14 Dose: 10 mg Diltiazem HCl (Cardizem -) 60 mg PO Q6HPO [facility] Last Admin: 06/30/16 06:40 Dose: 60 mg Enalapril Maleate (Vasotec -) 5 mg PO BID [facility] Last Admin: 06/30/16 09:47 Dose: 5 mg Heparin Sodium (Porcine) (Heparin -) 5,000 unit SQ BID [facility] Last Admin: 06/30/16 09:46 Dose: 5,000 unit Hydralazine HCl (Apresoline -) 10 mg PO TID [facility] Last Admin: 06/30/16 06:40 Dose: 10 mg Propofol (Diprivan -) 100 mls @ 3.549 mls/hr IVPB TITR [facility]; 10 MCG/KG/MIN PRN Reason: Protocol Last Admin: 06/30/16 00:50 Dose: 3.549 mls/hr Metronidazole (Flagyl 500mg Premixed Ivpb -) 100 mls @ 100 mls/hr IVPB Q8H-IV [facility] Last Admin: 06/30/16 09:46 Dose: 100 mls/hr Piperacillin Sod/Tazobactam Sod (Zosyn 3.375gm Ivpb (Pre-Docked)) 50 mls @ 100 mls/hr IVPB Q8H-IV [facility] PRN Reason: Protocol Last Admin: 06/30/16 09:47 Dose: 100 mls/hr Ibuprofen (Motrin -) 400 mg PO Q6H PRN PRN Reason: PAIN Last Admin: 06/29/16 21:18 Dose: 400 mg Insulin Aspart (Novolog Vial Sliding Scale -) 1 vial SQ ACHS [facility] PRN Reason: Protocol Last Admin: 06/30/16 06:40 Dose: 8 units Insulin Detemir (Levemir Vial) 10 units SQ HS [facility] Last Admin: 06/29/16 21:12 Dose: 10 units Methylprednisolone Sodium Succinate (Solu-Medrol -) 40 mg IVPB Q8H-IV [facility] Last Admin: 06/30/16 09:46 Dose: 40 mg Nitroglycerin (Nitrostat -) 0.4 mg SL Q5M PRN PRN Reason: FOR CHEST PAIN Last Admin: 06/20/16 11:35 Dose: 0.4 mg Pantoprazole Sodium (Protonix 40mg Ivpb (Pre-Docked)) 40 mg IVPB DAILY [facility] Last Admin: 06/30/16 09:45 Dose: 40 mg Vancomycin HCl (Vancomycin Oral Solution) 125 mg PO Q6HPO [facility] Last Admin: 06/30/16 09:48 Dose: 125 mg - Objective Vital Signs: Vital Signs Temperature 98.2 F 06/30/16 02:00 Pulse Rate 987 H 06/30/16 08:00 Respiratory Rate 27 H 06/30/16 08:00 Blood Pressure 125/58 06/30/16 08:00 O2 Sat by Pulse Oximetry (%) 96 06/30/16 08:23 Constitutional: Yes: No Distress HENT: Yes: Other (+ ETT) Cardiovascular: Yes: Regular Rate and Rhythm Respiratory: Yes: Other (= breath sounds b/l) Gastrointestinal: Yes: Soft Edema: No Labs: CBC, BMP 06/30/16 05:30 06/30/16 05:30 INR, PTT INR 1.02 (0.82-1.09) 06/09/16 05:05 Laboratory Tests 06/30/16 06/30/16 06/30/16 05:30 05:30 07:00 WBC 21.5 H Hgb 8.9 L Plt Count 177 D ABG pH 7.50 H ABG pCO2 at Pt Temp 44.7 ABG pO2 at Pt Temp 65.2 L Oxygen Flow Rate 40% Sodium 139 Potassium 4.5 BUN 31 H Creatinine 0.5 L D - ....Imaging EKG: Image Reviewed (TELE: NSR w/ short self limited bursts PSVT) Assessment/Plan Assessment/Plan Recurrent acute respiratory failure requiring re-intubation, refused trach first intubation Bilateral PNA Anemia PSVT CAD s/p NSTEMI Mild COPD REC: Cont Vent support as per CCM, wean as tolerates, refused trach when last intubated Abx as per CCM/ID Cont ASA, monitor H/H Continue Cardizem for PSVT and telemetry monitoring: overall PSVT burden is controlled
[2016-06-30] MEDS: ACETAMINOPHEN 325 MG TABLET (FP) PO PRN ×2 (10:59→22:25)
--- NOTE | 2016-06-30 13:34 | PN ---
Physical Exam: SUBJECTIVE: Patient seen and examined patient awake and oriented. communicate with writing. denies chest pain, nausea, vomiting. giving her weaning trial, started her on simv mode, patient tolerated it. will keep her simv alt with cpap will not give lasix due to metabolic alkalosis. OBJECTIVE: Vital Signs Period Temp Pulse Resp BP Sys/Rasheed Pulse Ox Last 24 Hr 98 F-99.7 F 72-987 17-27 102-149/44-74 96-97 GENERAL: intubated, awake, alert, communicate with writing HEAD: Normal with no signs of trauma. EYES: PERRL, NECK: Trachea midline, full range of motion, supple. LUNGS: b/l decrease air entry, decrease rales, no wheez. HEART: s1s2 normal tachy ABDOMEN: Soft, nontender, nondistended, normoactive bowel sounds, no guarding, accepting tube feed EXTREMITIES: 2+ pulses, warm, well-perfused, no edema. SKIN: Warm, dry, Laboratory Results - last 24 hr 06/29/16 06/29/16 06/29/16 11:32 16:29 19:15 WBC RBC Hgb Hct MCV MCHC RDW Plt Count MPV Neutrophils % Lymphocytes % Monocytes % Band Neutrophils Differential Comment Platelet Estimate RBC Morphology Puncture Site ABG pH ABG pCO2 at Pt Temp ABG pO2 at Pt Temp ABG HCO3 ABG O2 Sat (Measured) ABG O2 Content ABG Base Excess Rafi Test O2 Delivery Device Oxygen Flow Rate Vent Mode Vent Rate Mechanical Rate PEEP Pressure Support Vent Sodium Potassium 4.5 Chloride Carbon Dioxide Anion Gap BUN Creatinine Creat Clearance w eGFR POC Glucometer [phone] Random Glucose Calcium Phosphorus Magnesium Total Bilirubin AST ALT Alkaline Phosphatase Total Protein Albumin 06/29/16 06/30/16 06/30/16 21:06 05:30 05:30 WBC 21.5 H RBC 3.61 Hgb 8.9 L Hct 27.5 L MCV 76.2 L MCHC 32.5 RDW 28.0 H Plt Count 177 D MPV 9.6 Neutrophils % 96.0 H Lymphocytes % 2.0 L D Monocytes % 1.0 L Band Neutrophils 1.0 D Differential Comment Manual diff done Platelet Estimate Adequate RBC Morphology Puncture Site ABG pH ABG pCO2 at Pt Temp ABG pO2 at Pt Temp ABG HCO3 ABG O2 Sat (Measured) ABG O2 Content ABG Base Excess Rafi Test O2 Delivery Device Oxygen Flow Rate Vent Mode Vent Rate Mechanical Rate PEEP Pressure Support Vent Sodium 139 Potassium 4.5 Chloride 97 L Carbon Dioxide 34 H Anion Gap 8 BUN 31 H Creatinine 0.5 L D Creat Clearance w eGFR > 60 POC Glucometer [phone] Random Glucose 236 H Calcium 8.2 L Phosphorus 3.6 D Magnesium 2.2 Total Bilirubin 0.3 AST 35 ALT 24 D Alkaline Phosphatase 84 Total Protein 4.5 L Albumin 1.3 L 06/30/16 06/30/16 06/30/16 05:39 07:00 11:13 WBC RBC Hgb Hct MCV MCHC RDW Plt Count MPV Neutrophils % Lymphocytes % Monocytes % Band Neutrophils Differential Comment Platelet Estimate RBC Morphology Puncture Site Right radial ABG pH 7.50 H ABG pCO2 at Pt Temp 44.7 ABG pO2 at Pt Temp 65.2 L ABG HCO3 34.6 H ABG O2 Sat (Measured) 92.9 ABG O2 Content 11.1 L ABG Base Excess 10.5 H Rafi Test Positive O2 Delivery Device Mec.vent Oxygen Flow Rate 40% Vent Mode A/c Vent Rate 10 Mechanical Rate Yes PEEP 5.0 Pressure Support Vent 350 Sodium Potassium Chloride Carbon Dioxide Anion Gap BUN Creatinine Creat Clearance w eGFR POC Glucometer [phone] Random Glucose Calcium Phosphorus Magnesium Total Bilirubin AST ALT Alkaline Phosphatase Total Protein Albumin Active Medications Generic Name Dose Route Start Last Admin Trade Name Freq PRN Reason Stop Dose Admin Acetaminophen 650 mg 06/15/16 19:22 06/30/16 10:59 Tylenol - PO 650 mg Q4H PRN Administration FEVER OR PAIN Albuterol/Ipratropium 1 amp 06/22/16 18:00 06/30/16 11:25 Duoneb - NEB 1 amp QIDR [facility] Administration Aspirin 81 mg 06/16/16 10:00 06/30/16 09:46 Asa - PO 81 mg DAILY [facility] Administration Atorvastatin Calcium 80 mg 06/15/16 22:00 06/29/16 21:12 Lipitor - PO 80 mg HS [facility] Administration Budesonide/Formoterol Fumarate 2 puff 06/21/16 12:30 06/30/16 09:47 Symbicort 160/4.5mcg - IH Not Given BID [facility] Chlorhexidine Gluconate 15 ml 06/24/16 22:00 06/30/16 09:45 Peridex - MM 15 ml BID [facility] Administration Diltiazem HCl 10 mg 06/25/16 09:08 06/28/16 12:14 Cardizem Injection - IVPUSH 10 mg Q4H PRN Administration TACHYCARDIA Diltiazem HCl 60 mg 06/26/16 12:00 06/30/16 13:10 Cardizem - PO 60 mg Q6HPO [facility] Administration Enalapril Maleate 5 mg 06/15/16 22:00 06/30/16 09:47 Vasotec - PO 5 mg BID [facility] Administration Heparin Sodium (Porcine) 5,000 unit 06/27/16 10:00 06/30/16 09:46 Heparin - SQ 5,000 unit BID [facility] Administration Hydralazine HCl 10 mg 06/15/16 22:00 06/30/16 13:11 Apresoline - PO 10 mg TID [facility] Administration Propofol 100 mls @ 3.549 mls/hr 06/23/16 00:45 06/30/16 00:50 Diprivan - IVPB 3.549 mls/hr TITR [facility] Administration Protocol 10 MCG/KG/MIN Metronidazole 100 mls @ 100 mls/hr 06/28/16 18:00 06/30/16 09:46 Flagyl 500mg Premixed Ivpb - IVPB 100 mls/hr Q8H-IV [facility] Administration Piperacillin Sod/Tazobactam Sod 50 mls @ 100 mls/hr 06/28/16 18:00 06/30/16 09: 47 Zosyn 3.375gm Ivpb (Pre-Docked) IVPB 100 mls/hr Q8H-IV [facility] Administration Protocol Ibuprofen 400 mg 06/19/16 19:17 06/29/16 21:18 Motrin - PO 400 mg Q6H PRN Administration PAIN Insulin Aspart 1 vial 06/25/16 22:00 06/30/16 13:11 Novolog Vial Sliding Scale - SQ 8 units ACHS [facility] Administration Protocol Insulin Detemir 10 units 06/26/16 22:00 06/29/16 21:12 Levemir Vial SQ 10 units HS [facility] Administration Methylprednisolone Sodium Succinate 40 mg 06/28/16 18:00 06/30/16 09:46 Solu-Medrol - IVPB 40 mg Q8H-IV [facility] Administration Nitroglycerin 0.4 mg 06/20/16 11:09 06/20/16 11:35 Nitrostat - SL 0.4 mg Q5M PRN Administration FOR CHEST PAIN Pantoprazole Sodium 40 mg 06/23/16 10:00 06/30/16 09:45 Protonix 40mg Ivpb (Pre-Docked) IVPB 40 mg DAILY [facility] Administration Vancomycin HCl 125 mg 06/28/16 18:00 06/30/16 13:11 Vancomycin Oral Solution PO 125 mg Q6HPO [facility] Administration ABG Results ABG pH 7.50 (7.35-7.45) H 06/30/16 07:00 ABG pCO2 at Pt Temp 44.7 mmHg (35-45) 06/30/16 07:00 ABG pO2 at Pt Temp 65.2 mmHg (70-100) L 06/30/16 07:00 ABG HCO3 34.6 meq/L (22-26) H 06/30/16 07:00 ABG O2 Sat (Measured) 92.9 % (90-98.9) 06/30/16 07:00 ABG O2 Content 11.1 % vol (15-22) L 06/30/16 07:00 ABG Base Excess 10.5 meq/l (-2-2) H 06/30/16 07:00 bed side usg shows mild effusion but no septa ASSESSMENT/PLAN: acute hypercapneic respiratory failure due to aspiration pneumonia sedation again started last night as patient got agitated keep spo2 over 90 Nebulizers YEISON and PRN on solumedrom 40 q8h on zosyn, vanco, metro as per id, wbc increased to 21 sputum : psudomonas, urine citrobacter koseri abg in morning ID on case on duoneb neb q6h standing cxr reviewd, Trop i elevated could be stress induce trending down hyperkalemia kaxylate given k decreased to 4.5 diarrhoea c diff toxin negative ID on case on metronidazole and vanco Shock improved could be from aspiration pneumonia altered mental status could be from metabolic encephalopathy improved sedation stopped H/O HTN/ afib continue enalapril 5 bid and hydralazine 10 tid on cardiazem 60mg q6h h/o copd on duoneb on solumedrol 40 q8h DM on sliding scale novalog influenza positive completed a course of tamiflue Microcytic anemia HGB stable 8.9 FEN electrolyet follow in am tube feed Prophylaxis DVT: heparin sq GI: PPI iv Code status - Full code dispo : admit in icu Visit type - Emergency Visit Emergency Visit: Yes ED Registration Date: 05/30/16 Care time: The patient presented to the Emergency Department on the above date and was hospitalized for further evaluation of their emergent condition. - New Patient This patient is new to me today: No - Critical Care Critical Care patient: Yes Total Critical Care Time (in minutes): 45 Critical Care Statement: The care of this patient involved high complexity decision making to prevent further life threatening deterioration of the patient 's condition and/or to evalute & treat vital organ system(s) failure or risk of failure.
--- NOTE | 2016-06-30 13:42 | PN ---
Teaching Attending Note Name of Resident: Griffin Bell ATTENDING PHYSICIAN STATEMENT I saw and evaluated the patient. I reviewed the resident's note and discussed the case with the resident. I agree with the resident's findings and plan as documented. SUBJECTIVE: Pt seen and examined in the ICU. Remians intubated, awake off sedation. No fevers recorded. Diuresed well with lasix yesterday. OBJECTIVE: Last Vital Signs Temp Pulse Resp BP Pulse Ox 98 F 86 27 H 131/60 96 06/30/16 10:00 06/30/16 12:00 06/30/16 12:00 06/30/16 12:00 06/30/16 11:57 Intake & Output 06/27/16 06/28/16 06/29/16 06/30/16 23:59 23:59 23:59 23:59 Intake Total 3157 2822 3660 1154 Output Total 1600 1500 4700 700 Balance 1557 1322 -1040 454 Weight 127 lb 14.4 oz 127 lb 8 oz 115 lb 15.41 oz 116 lb 3 oz Gen: intubated, awake Heart: RRR Lung: scattered rhonchi Abd: soft, nontender Ext: trace edema CBC, BMP 06/30/16 05:30 06/30/16 05:30 Active Medications Acetaminophen (Tylenol -) 650 mg PO Q4H PRN PRN Reason: FEVER OR PAIN Last Admin: 06/30/16 10:59 Dose: 650 mg Albuterol/Ipratropium (Duoneb -) 1 amp NEB QIDR [facility] Last Admin: 06/30/16 11:25 Dose: 1 amp Aspirin (Asa -) 81 mg PO DAILY [facility] Last Admin: 06/30/16 09:46 Dose: 81 mg Atorvastatin Calcium (Lipitor -) 80 mg PO HS [facility] Last Admin: 06/29/16 21:12 Dose: 80 mg Budesonide/Formoterol Fumarate (Symbicort 160/4.5mcg -) 2 puff IH BID [facility] Last Admin: 06/30/16 09:47 Dose: Not Given Chlorhexidine Gluconate (Peridex -) 15 ml MM BID [facility] Last Admin: 06/30/16 09:45 Dose: 15 ml Diltiazem HCl (Cardizem Injection -) 10 mg IVPUSH Q4H PRN PRN Reason: TACHYCARDIA Last Admin: 06/28/16 12:14 Dose: 10 mg Diltiazem HCl (Cardizem -) 60 mg PO Q6HPO [facility] Last Admin: 06/30/16 13:10 Dose: 60 mg Enalapril Maleate (Vasotec -) 5 mg PO BID [facility] Last Admin: 06/30/16 09:47 Dose: 5 mg Heparin Sodium (Porcine) (Heparin -) 5,000 unit SQ BID [facility] Last Admin: 06/30/16 09:46 Dose: 5,000 unit Hydralazine HCl (Apresoline -) 10 mg PO TID [facility] Last Admin: 06/30/16 13:11 Dose: 10 mg Propofol (Diprivan -) 100 mls @ 3.549 mls/hr IVPB TITR [facility]; 10 MCG/KG/MIN PRN Reason: Protocol Last Admin: 06/30/16 00:50 Dose: 3.549 mls/hr Metronidazole (Flagyl 500mg Premixed Ivpb -) 100 mls @ 100 mls/hr IVPB Q8H-IV [facility] Last Admin: 06/30/16 09:46 Dose: 100 mls/hr Piperacillin Sod/Tazobactam Sod (Zosyn 3.375gm Ivpb (Pre-Docked)) 50 mls @ 100 mls/hr IVPB Q8H-IV [facility] PRN Reason: Protocol Last Admin: 06/30/16 09:47 Dose: 100 mls/hr Ibuprofen (Motrin -) 400 mg PO Q6H PRN PRN Reason: PAIN Last Admin: 06/29/16 21:18 Dose: 400 mg Insulin Aspart (Novolog Vial Sliding Scale -) 1 vial SQ ACHS [facility] PRN Reason: Protocol Last Admin: 06/30/16 13:11 Dose: 8 units Insulin Detemir (Levemir Vial) 10 units SQ HS [facility] Last Admin: 06/29/16 21:12 Dose: 10 units Methylprednisolone Sodium Succinate (Solu-Medrol -) 40 mg IVPB Q8H-IV [facility] Last Admin: 06/30/16 09:46 Dose: 40 mg Nitroglycerin (Nitrostat -) 0.4 mg SL Q5M PRN PRN Reason: FOR CHEST PAIN Last Admin: 06/20/16 11:35 Dose: 0.4 mg Pantoprazole Sodium (Protonix 40mg Ivpb (Pre-Docked)) 40 mg IVPB DAILY [facility] Last Admin: 06/30/16 09:45 Dose: 40 mg Vancomycin HCl (Vancomycin Oral Solution) 125 mg PO Q6HPO [facility] Last Admin: 06/30/16 13:11 Dose: 125 mg ASSESSMENT AND PLAN: Acute on Chronic Hypoxic and Hypercapneic Respiratory Failure Influenza A s/p treatment Pneumonia - ?Aspiration Acute COPD Exacerbation CAD +Troponins/Acute NSTEMI h/o Breast Ca 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
--- NOTE | 2016-06-30 15:43 | PN ---
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, Physician History of Present Illness: patient clinically looks much better awake and alert recognized me still intubated and on vent minimal secretions - Current Medication List Current Medications: Active Medications Acetaminophen (Tylenol -) 650 mg PO Q4H PRN PRN Reason: FEVER OR PAIN Last Admin: 06/30/16 10:59 Dose: 650 mg Albuterol/Ipratropium (Duoneb -) 1 amp NEB QIDR [facility] Last Admin: 06/30/16 11:25 Dose: 1 amp Aspirin (Asa -) 81 mg PO DAILY [facility] Last Admin: 06/30/16 09:46 Dose: 81 mg Atorvastatin Calcium (Lipitor -) 80 mg PO HS [facility] Last Admin: 06/29/16 21:12 Dose: 80 mg Budesonide/Formoterol Fumarate (Symbicort 160/4.5mcg -) 2 puff IH BID [facility] Last Admin: 06/30/16 09:47 Dose: Not Given Chlorhexidine Gluconate (Peridex -) 15 ml MM BID [facility] Last Admin: 06/30/16 09:45 Dose: 15 ml Diltiazem HCl (Cardizem Injection -) 10 mg IVPUSH Q4H PRN PRN Reason: TACHYCARDIA Last Admin: 06/28/16 12:14 Dose: 10 mg Diltiazem HCl (Cardizem -) 60 mg PO Q6HPO [facility] Last Admin: 06/30/16 13:10 Dose: 60 mg Enalapril Maleate (Vasotec -) 5 mg PO BID [facility] Last Admin: 06/30/16 09:47 Dose: 5 mg Heparin Sodium (Porcine) (Heparin -) 5,000 unit SQ BID [facility] Last Admin: 06/30/16 09:46 Dose: 5,000 unit Hydralazine HCl (Apresoline -) 10 mg PO TID [facility] Last Admin: 06/30/16 13:11 Dose: 10 mg Propofol (Diprivan -) 100 mls @ 3.549 mls/hr IVPB TITR [facility]; 10 MCG/KG/MIN PRN Reason: Protocol Last Admin: 06/30/16 00:50 Dose: 3.549 mls/hr Meropenem 1 gm/ Dextrose 100 mls @ 100 mls/hr IVPB Q8H-IV [facility] PRN Reason: Protocol Ibuprofen (Motrin -) 400 mg PO Q6H PRN PRN Reason: PAIN Last Admin: 06/29/16 21:18 Dose: 400 mg Insulin Aspart (Novolog Vial Sliding Scale -) 1 vial SQ ACHS [facility] PRN Reason: Protocol Last Admin: 06/30/16 13:11 Dose: 8 units Insulin Detemir (Levemir Vial) 10 units SQ HS [facility] Last Admin: 06/29/16 21:12 Dose: 10 units Methylprednisolone Sodium Succinate (Solu-Medrol -) 40 mg IVPB Q8H-IV [facility] Last Admin: 06/30/16 09:46 Dose: 40 mg Nitroglycerin (Nitrostat -) 0.4 mg SL Q5M PRN PRN Reason: FOR CHEST PAIN Last Admin: 06/20/16 11:35 Dose: 0.4 mg Pantoprazole Sodium (Protonix 40mg Ivpb (Pre-Docked)) 40 mg IVPB DAILY [facility] Last Admin: 06/30/16 09:45 Dose: 40 mg - Objective Vital Signs: Vital Signs Temperature 98 F 06/30/16 14:00 Pulse Rate 80 06/30/16 14:00 Respiratory Rate 27 H 06/30/16 14:00 Blood Pressure 126/46 06/30/16 14:00 O2 Sat by Pulse Oximetry (%) 96 06/30/16 11:57 Constitutional: Yes: No Distress, Calm Cardiovascular: Yes: Regular Rate and Rhythm Respiratory: Yes: Regular, CTA Bilaterally Gastrointestinal: Yes: Normal Bowel Sounds, Soft, Other Musculoskeletal: Yes: WNL Extremities: Yes: WNL Neurological: Yes: Alert Psychiatric: Yes: Alert, Other Labs: CBC, BMP 06/30/16 05:30 06/30/16 05:30 INR, PTT INR 1.02 (0.82-1.09) 06/09/16 05:05 - ....Imaging Chest X-ray: Report Reviewed, Image Reviewed Assessment/Plan Problem List - Problems (1) Aortic stenosis Code(s): I35.0 - NONRHEUMATIC AORTIC (VALVE) STENOSIS (2) History of PSVT (paroxysmal supraventricular tachycardia) Code(s): Z86.79 - PERSONAL HISTORY OF OTHER DISEASES OF THE CIRCULATORY SYSTEM (3) NSTEMI (non-ST elevated myocardial infarction) Code(s): I21.4 - NON-ST ELEVATION (NSTEMI) MYOCARDIAL INFARCTION (4) Respiratory failure Code(s): J96.90 - RESPIRATORY FAILURE, UNSP, UNSP W HYPOXIA OR HYPERCAPNIA Qualifiers: Chronicity: acute Respiratory failure complication: hypoxia and hypercapnia Qualified Code(s): J96.01 - Acute respiratory failure with hypoxia (5) Pulmonary hypertension Code(s): I27.2 - OTHER SECONDARY PULMONARY HYPERTENSION (6) Pulmonary nodules Code(s): R91.8 - OTHER NONSPECIFIC ABNORMAL FINDING OF LUNG FIELD (7) COPD (chronic obstructive pulmonary disease) Code(s): J44.9 - CHRONIC OBSTRUCTIVE PULMONARY DISEASE, UNSPECIFIED (8) History of cigarette smoking Code(s): Z87.891 - PERSONAL HISTORY OF NICOTINE DEPENDENCE (9) Acute on chronic respiratory failure with hypoxia and hypercapnia Code(s): J96.21 - ACUTE AND CHRONIC RESPIRATORY FAILURE WITH HYPOXIA J96.22 - ACUTE AND CHRONIC RESPIRATORY FAILURE WITH HYPERCAPNIAEPENDENCE +Troponins/Acute NSTEMI Lactic Acidosis h/o Breast Ca 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
--- NOTE | 2016-06-30 17:12 | PN ---
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, Physician History of Present Illness: intubated - Current Medication List Current Medications: Active Medications Acetaminophen (Tylenol -) 650 mg PO Q4H PRN PRN Reason: FEVER OR PAIN Last Admin: 06/30/16 10:59 Dose: 650 mg Albuterol/Ipratropium (Duoneb -) 1 amp NEB QIDR [facility] Last Admin: 06/30/16 11:25 Dose: 1 amp Aspirin (Asa -) 81 mg PO DAILY [facility] Last Admin: 06/30/16 09:46 Dose: 81 mg Atorvastatin Calcium (Lipitor -) 80 mg PO HS [facility] Last Admin: 06/29/16 21:12 Dose: 80 mg Budesonide/Formoterol Fumarate (Symbicort 160/4.5mcg -) 2 puff IH BID [facility] Last Admin: 06/30/16 09:47 Dose: Not Given Chlorhexidine Gluconate (Peridex -) 15 ml MM BID [facility] Last Admin: 06/30/16 09:45 Dose: 15 ml Diltiazem HCl (Cardizem Injection -) 10 mg IVPUSH Q4H PRN PRN Reason: TACHYCARDIA Last Admin: 06/28/16 12:14 Dose: 10 mg Diltiazem HCl (Cardizem -) 60 mg PO Q6HPO [facility] Last Admin: 06/30/16 13:10 Dose: 60 mg Enalapril Maleate (Vasotec -) 5 mg PO BID [facility] Last Admin: 06/30/16 09:47 Dose: 5 mg Heparin Sodium (Porcine) (Heparin -) 5,000 unit SQ BID [facility] Last Admin: 06/30/16 09:46 Dose: 5,000 unit Hydralazine HCl (Apresoline -) 10 mg PO TID [facility] Last Admin: 06/30/16 13:11 Dose: 10 mg Propofol (Diprivan -) 100 mls @ 3.549 mls/hr IVPB TITR [facility]; 10 MCG/KG/MIN PRN Reason: Protocol Last Admin: 06/30/16 00:50 Dose: 3.549 mls/hr Meropenem 1 gm/ Dextrose 100 mls @ 100 mls/hr IVPB Q8H-IV [facility] PRN Reason: Protocol Ibuprofen (Motrin -) 400 mg PO Q6H PRN PRN Reason: PAIN Last Admin: 06/29/16 21:18 Dose: 400 mg Insulin Aspart (Novolog Vial Sliding Scale -) 1 vial SQ ACHS [facility] PRN Reason: Protocol Last Admin: 06/30/16 13:11 Dose: 8 units Insulin Detemir (Levemir Vial) 10 units SQ HS [facility] Last Admin: 06/29/16 21:12 Dose: 10 units Methylprednisolone Sodium Succinate (Solu-Medrol -) 40 mg IVPB Q8H-IV [facility] Last Admin: 06/30/16 09:46 Dose: 40 mg Nitroglycerin (Nitrostat -) 0.4 mg SL Q5M PRN PRN Reason: FOR CHEST PAIN Last Admin: 06/20/16 11:35 Dose: 0.4 mg Pantoprazole Sodium (Protonix 40mg Ivpb (Pre-Docked)) 40 mg IVPB DAILY [facility] Last Admin: 06/30/16 09:45 Dose: 40 mg - Objective Vital Signs: Vital Signs Temperature 98 F 06/30/16 14:00 Pulse Rate 80 06/30/16 14:00 Respiratory Rate 22 06/30/16 15:58 Blood Pressure 126/46 06/30/16 14:00 O2 Sat by Pulse Oximetry (%) 96 06/30/16 11:57 Constitutional: Yes: No Distress HENT: Yes: Atraumatic Neck: Yes: Supple Cardiovascular: Yes: Regular Rate and Rhythm Respiratory: Yes: Rhonchi Gastrointestinal: Yes: Normal Bowel Sounds Extremities: Yes: WNL Neurological: Yes: Alert Labs: CBC, BMP 06/30/16 05:30 06/30/16 05:30 INR, PTT INR 1.02 (0.82-1.09) 06/09/16 05:05 Problem List - Problems (1) Respiratory failure Assessment/Plan: pt is intubated apiration pna on abx on steroids Code(s): J96.90 - RESPIRATORY FAILURE, UNSP, UNSP W HYPOXIA OR HYPERCAPNIA Qualifiers: Chronicity: acute Respiratory failure complication: hypoxia and hypercapnia Qualified Code(s): J96.01 - Acute respiratory failure with hypoxia (2) Chronic respiratory failure with hypoxia Assessment/Plan: see above Code(s): J96.11 - CHRONIC RESPIRATORY FAILURE WITH HYPOXIA (3) CAD (coronary artery disease) Assessment/Plan: on meds follow up labs continue current meds Code(s): I25.10 - ATHSCL HEART DISEASE OF [place] CORONARY ARTERY W/O ANG PCTRS (4) COPD (chronic obstructive pulmonary disease) Assessment/Plan: on meds stable steroids duo nebs Code(s): J44.9 - CHRONIC OBSTRUCTIVE PULMONARY DISEASE, UNSPECIFIED (5) Chronic diastolic CHF (congestive heart failure) Assessment/Plan: stable on meds Code(s): I50.32 - CHRONIC DIASTOLIC (CONGESTIVE) HEART FAILURE (6) HLD (hyperlipidemia) Assessment/Plan: on meds Code(s): E78.5 - HYPERLIPIDEMIA, UNSPECIFIED Qualifiers: Hyperlipidemia type: unspecified Qualified Code(s): E78.5 - Hyperlipidemia, unspecified (7) HTN (hypertension) Assessment/Plan: on meds stable Code(s): I10 - ESSENTIAL (PRIMARY) HYPERTENSION Qualifiers: Hypertension type: essential hypertension Qualified Code(s): I10 - Essential (primary) hypertension (8) History of cigarette smoking Code(s): Z87.891 - PERSONAL HISTORY OF NICOTINE DEPENDENCE (9) Influenza Assessment/Plan: on meds id consult Code(s): J11.1 - FLU DUE TO UNIDENTIFIED INFLUENZA VIRUS W OTH RESP MANIFEST (10) Acute on chronic respiratory failure with hypoxia and hypercapnia Code(s): J96.21 - ACUTE AND CHRONIC RESPIRATORY FAILURE WITH HYPOXIA J96.22 - ACUTE AND CHRONIC RESPIRATORY FAILURE WITH HYPERCAPNIA (11) History of PSVT (paroxysmal supraventricular tachycardia) Code(s): Z86.79 - PERSONAL HISTORY OF OTHER DISEASES OF THE CIRCULATORY SYSTEM (12) Anemia Assessment/Plan: hgb stable Code(s): D64.9 - ANEMIA, UNSPECIFIED (13) NSTEMI (non-ST elevated myocardial infarction) Code(s): I21.4 - NON-ST ELEVATION (NSTEMI) MYOCARDIAL INFARCTION Assessment/Plan 1.+Influenza treated 2.Acute respiratory failure intubated refusing trach RLL INFILTERATE ON ABX AND DUO NEBS 3.ANEMIA STABLE 4.NSTEMI 5.History breast cancer, lung mass with negative bx 6.COPD, chronic with chronic hypoxemia 7.chf STABLE PT EVAL CC in reviewing chart and formulating care 30 min
[2016-06-30] MEDS: MEROPENEM 1 GM in DEXTROSE 5%-WATER - 100 ML IVPB SCH (17:27)
[2016-06-30] MEDS: ATORVASTATIN CA 80 MG TABLET (FP) PO SCH (22:23)
[2016-06-30] MEDS: INSULIN DETEMIR 100 UNITS/ML MDV SQ SCH (22:26)
[2016-07-01] MEDS: methylPREDNISolone NA SUCC 40 MG/1 ML VIAL IVPB SCH ×3 (02:00→21:00)
[2016-07-01] MEDS: MEROPENEM 1 GM in DEXTROSE 5%-WATER - 100 ML IVPB SCH ×3 (02:00→17:14)
[2016-07-01] MEDS: PROPOFOL 100 ML IVPB SCH (03:14)
[2016-07-01] MEDS: hydrALAZINE HCL 10 MG TABLET PO SCH ×3 (05:18→20:59)
[2016-07-01] MEDS: BANATROL PLUS POWDER PACKET PO SCH ×3 (05:18→20:59)
[2016-07-01] MEDS: dilTIAZem HCL 60 MG TABLET (FP) PO SCH ×4 (05:22→23:19)
[2016-07-01 06:03] LABS: MCH 24.9 pg (25.7-33.7); MCHC 32.3 g/dl (32.0-36.0); MEAN PLT VOLUME 9.6 fl (7.5-11.1); PLATELET COUNT 189 K/MM3 (134-434); RDW 27.5 % (11.6-15.6); WHITE BLOOD COUNT 21.1 K/mm3 (4.0-10.0)
[2016-07-01] MEDS: INSULIN SLIDING SCALE (NOVOLOG) 1 VIAL SQ SCH ×4 (06:13→21:09)
[2016-07-01] MEDS: ALBUTEROL SO4 2.5/IPRATROPIUM 0.5 INH SOL 3 ML VIAL.NEB. NEB SCH ×4 (06:14→23:20)
[2016-07-01 06:20] LABS: CALCIUM 8.4 mg/dL (8.5-10.1); COCKROFT - GAULT 82.127; CREATININE 0.5 mg/dL (0.55-1.02)
--- NOTE | 2016-07-01 08:29 | PN ---
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, Physician Chief Complaint: intubated, on 40% FIO2 TELE: NSR, 3 beats NSVT - Current Medication List Current Medications: Active Medications Acetaminophen (Tylenol -) 650 mg PO Q4H PRN PRN Reason: FEVER OR PAIN Last Admin: 06/30/16 22:25 Dose: 650 mg Albuterol/Ipratropium (Duoneb -) 1 amp NEB QIDR [facility] Last Admin: 07/01/16 06:14 Dose: 1 amp Aspirin (Asa -) 81 mg PO DAILY [facility] Last Admin: 06/30/16 09:46 Dose: 81 mg Atorvastatin Calcium (Lipitor -) 80 mg PO HS [facility] Last Admin: 06/30/16 22:23 Dose: 80 mg Budesonide/Formoterol Fumarate (Symbicort 160/4.5mcg -) 2 puff IH BID [facility] Last Admin: 06/30/16 22:24 Dose: Not Given Chlorhexidine Gluconate (Peridex -) 15 ml MM BID [facility] Last Admin: 06/30/16 22:24 Dose: 15 ml Diltiazem HCl (Cardizem Injection -) 10 mg IVPUSH Q4H PRN PRN Reason: TACHYCARDIA Last Admin: 06/28/16 12:14 Dose: 10 mg Diltiazem HCl (Cardizem -) 60 mg PO Q6HPO [facility] Last Admin: 07/01/16 05:22 Dose: 60 mg Enalapril Maleate (Vasotec -) 5 mg PO BID [facility] Last Admin: 06/30/16 22:24 Dose: 5 mg Heparin Sodium (Porcine) (Heparin -) 5,000 unit SQ BID [facility] Last Admin: 06/30/16 22:23 Dose: 5,000 unit Hydralazine HCl (Apresoline -) 10 mg PO TID [facility] Last Admin: 07/01/16 05:18 Dose: 10 mg Propofol (Diprivan -) 100 mls @ 3.549 mls/hr IVPB TITR [facility]; 10 MCG/KG/MIN PRN Reason: Protocol Last Admin: 07/01/16 03:14 Dose: 3.549 mls/hr Meropenem 1 gm/ Dextrose 100 mls @ 100 mls/hr IVPB Q8H-IV [facility] PRN Reason: Protocol Last Admin: 07/01/16 02:00 Dose: 100 mls/hr Ibuprofen (Motrin -) 400 mg PO Q6H PRN PRN Reason: PAIN Last Admin: 06/29/16 21:18 Dose: 400 mg Insulin Aspart (Novolog Vial Sliding Scale -) 1 vial SQ ACHS [facility] PRN Reason: Protocol Last Admin: 07/01/16 06:13 Dose: 8 units Insulin Detemir (Levemir Vial) 10 units SQ HS [facility] Last Admin: 06/30/16 22:26 Dose: 10 units Methylprednisolone Sodium Succinate (Solu-Medrol -) 40 mg IVPB Q8H-IV [facility] Last Admin: 07/01/16 02:00 Dose: 40 mg Nitroglycerin (Nitrostat -) 0.4 mg SL Q5M PRN PRN Reason: FOR CHEST PAIN Last Admin: 06/20/16 11:35 Dose: 0.4 mg Pantoprazole Sodium (Protonix 40mg Ivpb (Pre-Docked)) 40 mg IVPB DAILY [facility] Last Admin: 06/30/16 09:45 Dose: 40 mg - Objective Vital Signs: Vital Signs Temperature 98.2 F 07/01/16 06:00 Pulse Rate 73 07/01/16 06:00 Respiratory Rate 23 07/01/16 06:14 Blood Pressure 120/46 07/01/16 06:00 O2 Sat by Pulse Oximetry (%) 96 06/30/16 21:24 Constitutional: Yes: No Distress Neck: Yes: Other (+ ETT) Cardiovascular: Yes: Regular Rate and Rhythm Respiratory: Yes: Other (= breath sounds b/l) Gastrointestinal: Yes: Soft Edema: No Labs: CBC, BMP 07/01/16 05:10 07/01/16 05:10 INR, PTT INR 1.02 (0.82-1.09) 06/09/16 05:05 Laboratory Tests 07/01/16 07/01/16 05:10 05:10 WBC 21.1 H Hgb 8.7 L Plt Count 189 Sodium 139 Potassium 4.4 BUN 30 H Creatinine 0.5 L - ....Imaging EKG: Image Reviewed Assessment/Plan Recurrent acute respiratory failure requiring re-intubation, refused trach first intubation Bilateral PNA Anemia PSVT CAD s/p NSTEMI Mild COPD REC: Cont Vent support as per CCM, wean as tolerates, refused trach when last intubated Abx as per CCM/ID Cont ASA, monitor H/H Continue Cardizem for PSVT and telemetry monitoring: overall PSVT burden remains controlled
[2016-07-01 08:34] LABS: PLATELET ESTIMATE ADEQUATE (NORMAL)
[2016-07-01] MEDS ORDERED: PT OWN MED DRAWER 7, Y5N ONE (10:46)
[2016-07-01] MEDS: ASPIRIN 81 MG CHEWABLE TABLETS PO SCH (10:57)
[2016-07-01] MEDS: HEPARIN NA (PORCINE) 5,000 UNITS/ML 1ML VIAL SQ SCH ×2 (10:57→20:59)
[2016-07-01] MEDS: ENALAPRIL MALEATE 5 MG TABLET (FP) PO SCH ×2 (10:57→21:00)
[2016-07-01] MEDS: CHLORHEXIDINE GLUCONATE 0.12% 15ML CUP MM SCH ×2 (10:57→20:59)
[2016-07-01] MEDS: BUDESONIDE/FORMETEROL FUMARATE 160/4.5 mcg INHALER IH SCH ×2 (10:58→21:00)
[2016-07-01] MEDS: PANTOPRAZOLE SODIUM 40 MG/100 ML PRE-DOCKED IVPB SCH (10:58)
--- NOTE | 2016-07-01 11:53 | PN ---
Teaching Attending Note Name of Resident: Griffin Bell ATTENDING PHYSICIAN STATEMENT I saw and evaluated the patient. I reviewed the resident's note and discussed the case with the resident. I agree with the resident's findings and plan as documented. SUBJECTIVE: Patient seen and examined in the ICU. Remians intubated, awake off sedation. No fevers recorded. Currently on SIMV. CXR: No gross change in bibasilar infiltrates OBJECTIVE: Intake & Output 06/28/16 06/29/16 06/30/16 07/01/16 23:59 23:59 23:59 23:59 Intake Total 2822 3660 2946 644 Output Total 1500 4700 1100 350 Balance 1322 -1040 1846 294 Weight 127 lb 8 oz 115 lb 15.41 oz 116 lb 3 oz 116 lb 9 oz Last Vital Signs Temp Pulse Resp BP Pulse Ox 98.2 F 68 26 H 120/46 95 07/01/16 06:00 07/01/16 10:30 07/01/16 09:25 07/01/16 06:00 07/01/16 10:30 Active Medications Acetaminophen (Tylenol -) 650 mg PO Q4H PRN PRN Reason: FEVER OR PAIN Last Admin: 06/30/16 22:25 Dose: 650 mg Albuterol/Ipratropium (Duoneb -) 1 amp NEB QIDR [facility] Last Admin: 07/01/16 11:05 Dose: 1 amp Aspirin (Asa -) 81 mg PO DAILY [facility] Last Admin: 07/01/16 10:57 Dose: 81 mg Atorvastatin Calcium (Lipitor -) 80 mg PO HS [facility] Last Admin: 06/30/16 22:23 Dose: 80 mg Budesonide/Formoterol Fumarate (Symbicort 160/4.5mcg -) 2 puff IH BID [facility] Last Admin: 07/01/16 10:58 Dose: Not Given Chlorhexidine Gluconate (Peridex -) 15 ml MM BID [facility] Last Admin: 07/01/16 10:57 Dose: 15 ml Diltiazem HCl (Cardizem Injection -) 10 mg IVPUSH Q4H PRN PRN Reason: TACHYCARDIA Last Admin: 06/28/16 12:14 Dose: 10 mg Diltiazem HCl (Cardizem -) 60 mg PO Q6HPO [facility] Last Admin: 07/01/16 05:22 Dose: 60 mg Enalapril Maleate (Vasotec -) 5 mg PO BID [facility] Last Admin: 07/01/16 10:57 Dose: 5 mg Heparin Sodium (Porcine) (Heparin -) 5,000 unit SQ BID [facility] Last Admin: 07/01/16 10:57 Dose: 5,000 unit Hydralazine HCl (Apresoline -) 10 mg PO TID [facility] Last Admin: 07/01/16 05:18 Dose: 10 mg Propofol (Diprivan -) 100 mls @ 3.549 mls/hr IVPB TITR [facility]; 10 MCG/KG/MIN PRN Reason: Protocol Last Admin: 07/01/16 03:14 Dose: 3.549 mls/hr Meropenem 1 gm/ Dextrose 100 mls @ 100 mls/hr IVPB Q8H-IV [facility] PRN Reason: Protocol Last Admin: 07/01/16 10:56 Dose: 100 mls/hr Ibuprofen (Motrin -) 400 mg PO Q6H PRN PRN Reason: PAIN Last Admin: 06/29/16 21:18 Dose: 400 mg Insulin Aspart (Novolog Vial Sliding Scale -) 1 vial SQ ACHS [facility] PRN Reason: Protocol Last Admin: 07/01/16 11:47 Dose: 4 units Insulin Detemir (Levemir Vial) 10 units SQ HS [facility] Last Admin: 06/30/16 22:26 Dose: 10 units Methylprednisolone Sodium Succinate (Solu-Medrol -) 40 mg IVPB BID [facility] Nitroglycerin (Nitrostat -) 0.4 mg SL Q5M PRN PRN Reason: FOR CHEST PAIN Last Admin: 06/20/16 11:35 Dose: 0.4 mg Pantoprazole Sodium (Protonix 40mg Ivpb (Pre-Docked)) 40 mg IVPB DAILY [facility] Last Admin: 07/01/16 10:58 Dose: 40 mg Gen: intubated, awake Heart: RRR Lung: scattered rhonchi Abd: soft, nontender Ext: trace edema Laboratory Results - last 24 hr 06/30/16 06/30/16 07/01/16 16:51 21:58 05:10 WBC 21.1 H RBC 3.52 L Hgb 8.7 L Hct 27.1 L MCV 77.0 L MCHC 32.3 RDW 27.5 H Plt Count 189 MPV 9.6 Neutrophils % 94.0 H Lymphocytes % 3.0 L D Monocytes % 1.0 L Band Neutrophils 1.0 Myelocytes 1 Differential Comment Manual diff done Platelet Estimate Adequate Sodium Potassium Chloride Carbon Dioxide Anion Gap BUN Creatinine POC Glucometer [phone] Random Glucose Calcium 07/01/16 05:10 WBC RBC Hgb Hct MCV MCHC RDW Plt Count MPV Neutrophils % Lymphocytes % Monocytes % Band Neutrophils Myelocytes Differential Comment Platelet Estimate Sodium 139 Potassium 4.4 Chloride 97 L Carbon Dioxide 35 H Anion Gap 7 L BUN 30 H Creatinine 0.5 L POC Glucometer Random Glucose 223 H Calcium 8.4 L ASSESSMENT AND PLAN: Acute on Chronic Hypoxic and Hypercapneic Respiratory Failure Influenza A s/p treatment Pneumonia - ?Aspiration Acute COPD Exacerbation CAD +Troponins/Acute NSTEMI h/o Breast Ca Lung Nodules with recent biopsy showing necrotizing granulomas Smoker - continue antibiotics - Medrol taper - inhaled bronchodilators - taper FiO2, PEEP to keep SpO2 >90% - ASA - lasix as needed - spontaneous breathing trials as tolerated - enteral feeds, prostat - DVT/GI prophylaxis - continue ICU monitoring Care for Ms Seth has been very challenging. Ideally she needs a Trach, but she has been refusing. I suspect that she will be extubated in the next few days, but has a very high probability of re-intubation. We have not been able to convince her that a Trach would be the most appropriate medical intervention. Will continue to discuss this with her. Critical care time spent in reviewing chart, evaluating pt and formulating plan [address] Mosqueda
--- NOTE | 2016-07-01 11:55 | PN ---
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, Physician History of Present Illness: continues to be intubated clinically stable no dirrhoea awake - Current Medication List Current Medications: Active Medications Acetaminophen (Tylenol -) 650 mg PO Q4H PRN PRN Reason: FEVER OR PAIN Last Admin: 06/30/16 22:25 Dose: 650 mg Albuterol/Ipratropium (Duoneb -) 1 amp NEB QIDR [facility] Last Admin: 07/01/16 11:05 Dose: 1 amp Aspirin (Asa -) 81 mg PO DAILY [facility] Last Admin: 07/01/16 10:57 Dose: 81 mg Atorvastatin Calcium (Lipitor -) 80 mg PO HS [facility] Last Admin: 06/30/16 22:23 Dose: 80 mg Budesonide/Formoterol Fumarate (Symbicort 160/4.5mcg -) 2 puff IH BID [facility] Last Admin: 07/01/16 10:58 Dose: Not Given Chlorhexidine Gluconate (Peridex -) 15 ml MM BID [facility] Last Admin: 07/01/16 10:57 Dose: 15 ml Diltiazem HCl (Cardizem Injection -) 10 mg IVPUSH Q4H PRN PRN Reason: TACHYCARDIA Last Admin: 06/28/16 12:14 Dose: 10 mg Diltiazem HCl (Cardizem -) 60 mg PO Q6HPO [facility] Last Admin: 07/01/16 05:22 Dose: 60 mg Enalapril Maleate (Vasotec -) 5 mg PO BID [facility] Last Admin: 07/01/16 10:57 Dose: 5 mg Heparin Sodium (Porcine) (Heparin -) 5,000 unit SQ BID [facility] Last Admin: 07/01/16 10:57 Dose: 5,000 unit Hydralazine HCl (Apresoline -) 10 mg PO TID [facility] Last Admin: 07/01/16 05:18 Dose: 10 mg Propofol (Diprivan -) 100 mls @ 3.549 mls/hr IVPB TITR [facility]; 10 MCG/KG/MIN PRN Reason: Protocol Last Admin: 07/01/16 03:14 Dose: 3.549 mls/hr Meropenem 1 gm/ Dextrose 100 mls @ 100 mls/hr IVPB Q8H-IV [facility] PRN Reason: Protocol Last Admin: 07/01/16 10:56 Dose: 100 mls/hr Ibuprofen (Motrin -) 400 mg PO Q6H PRN PRN Reason: PAIN Last Admin: 06/29/16 21:18 Dose: 400 mg Insulin Aspart (Novolog Vial Sliding Scale -) 1 vial SQ ACHS [facility] PRN Reason: Protocol Last Admin: 07/01/16 11:47 Dose: 4 units Insulin Detemir (Levemir Vial) 10 units SQ HS [facility] Last Admin: 06/30/16 22:26 Dose: 10 units Methylprednisolone Sodium Succinate (Solu-Medrol -) 40 mg IVPB BID [facility] Nitroglycerin (Nitrostat -) 0.4 mg SL Q5M PRN PRN Reason: FOR CHEST PAIN Last Admin: 06/20/16 11:35 Dose: 0.4 mg Pantoprazole Sodium (Protonix 40mg Ivpb (Pre-Docked)) 40 mg IVPB DAILY [facility] Last Admin: 07/01/16 10:58 Dose: 40 mg - Objective Vital Signs: Vital Signs Temperature 98.2 F 07/01/16 06:00 Pulse Rate 68 07/01/16 10:30 Respiratory Rate 26 H 07/01/16 09:25 Blood Pressure 120/46 07/01/16 06:00 O2 Sat by Pulse Oximetry (%) 95 07/01/16 10:30 Constitutional: Yes: Calm HENT: Yes: Atraumatic Neck: Yes: Supple Cardiovascular: Yes: Regular Rate and Rhythm Respiratory: Yes: Intubated, Mechanically Ventilated Gastrointestinal: Yes: Normal Bowel Sounds, Soft Musculoskeletal: Yes: WNL Extremities: Yes: WNL Labs: CBC, BMP 07/01/16 05:10 07/01/16 05:10 INR, PTT INR 1.02 (0.82-1.09) 06/09/16 05:05 - ....Imaging Chest X-ray: Report Reviewed, Image Reviewed Assessment/Plan Problem List - Problems (1) Aortic stenosis Code(s): I35.0 - NONRHEUMATIC AORTIC (VALVE) STENOSIS (2) History of PSVT (paroxysmal supraventricular tachycardia) Code(s): Z86.79 - PERSONAL HISTORY OF OTHER DISEASES OF THE CIRCULATORY SYSTEM (3) NSTEMI (non-ST elevated myocardial infarction) Code(s): I21.4 - NON-ST ELEVATION (NSTEMI) MYOCARDIAL INFARCTION (4) Respiratory failure Code(s): J96.90 - RESPIRATORY FAILURE, UNSP, UNSP W HYPOXIA OR HYPERCAPNIA Qualifiers: Chronicity: acute Respiratory failure complication: hypoxia and hypercapnia Qualified Code(s): J96.01 - Acute respiratory failure with hypoxia (5) Pulmonary hypertension Code(s): I27.2 - OTHER SECONDARY PULMONARY HYPERTENSION (6) Pulmonary nodules Code(s): R91.8 - OTHER NONSPECIFIC ABNORMAL FINDING OF LUNG FIELD (7) COPD (chronic obstructive pulmonary disease) Code(s): J44.9 - CHRONIC OBSTRUCTIVE PULMONARY DISEASE, UNSPECIFIED (8) History of cigarette smoking Code(s): Z87.891 - PERSONAL HISTORY OF NICOTINE DEPENDENCE (9) Acute on chronic respiratory failure with hypoxia and hypercapnia Code(s): J96.21 - ACUTE AND CHRONIC RESPIRATORY FAILURE WITH HYPOXIA J96.22 - ACUTE AND CHRONIC RESPIRATORY FAILURE WITH HYPERCAPNIAEPENDENCE +Troponins/Acute NSTEMI Lactic Acidosis h/o Breast Ca Lung Nodules with recent biopsy showing necrotizing granulomas Smoker pseudomonas pneumonia uti cdiff negative plan wbc slightly down continue abx continue as per pul/icu continue to monitor cc 40 min
--- NOTE | 2016-07-01 13:40 | PN ---
Physical Exam: SUBJECTIVE: Patient seen and examined patient awake and oriented. communicate with writing. denies chest pain, nausea, vomiting. simv alt with cpap OBJECTIVE: Vital Signs Period Temp Pulse Resp BP Sys/Rasheed Pulse Ox Last 24 Hr 98 F-98.6 F 68-114 18-27 120-138/46-72 95-96 GENERAL: intubated, awake, alert, communicate with writing HEAD: Normal with no signs of trauma. EYES: PERRL, NECK: Trachea midline, full range of motion, supple. LUNGS: b/l decrease air entry, decrease rales, no wheez. HEART: s1s2 normal tachy ABDOMEN: Soft, nontender, nondistended, normoactive bowel sounds, no guarding, accepting tube feed EXTREMITIES: 2+ pulses, warm, well-perfused, no edema. SKIN: Warm, dry, Laboratory Results - last 24 hr 06/30/16 06/30/16 07/01/16 16:51 21:58 05:10 WBC 21.1 H RBC 3.52 L Hgb 8.7 L Hct 27.1 L MCV 77.0 L MCHC 32.3 RDW 27.5 H Plt Count 189 MPV 9.6 Neutrophils % 94.0 H Lymphocytes % 3.0 L D Monocytes % 1.0 L Band Neutrophils 1.0 Myelocytes 1 Differential Comment Manual diff done Platelet Estimate Adequate Sodium Potassium Chloride Carbon Dioxide Anion Gap BUN Creatinine POC Glucometer [phone] Random Glucose Calcium 07/01/16 07/01/16 07/01/16 05:10 05:45 11:16 WBC RBC Hgb Hct MCV MCHC RDW Plt Count MPV Neutrophils % Lymphocytes % Monocytes % Band Neutrophils Myelocytes Differential Comment Platelet Estimate Sodium 139 Potassium 4.4 Chloride 97 L Carbon Dioxide 35 H Anion Gap 7 L BUN 30 H Creatinine 0.5 L POC Glucometer [phone] Random Glucose 223 H Calcium 8.4 L Active Medications Generic Name Dose Route Start Last Admin Trade Name Freq PRN Reason Stop Dose Admin Acetaminophen 650 mg 06/15/16 19:22 06/30/16 22:25 Tylenol - PO 650 mg Q4H PRN Administration FEVER OR PAIN Albuterol/Ipratropium 1 amp 06/22/16 18:00 07/01/16 11:05 Duoneb - NEB 1 amp QIDR YEISON Administration Aspirin 81 mg 06/16/16 10:00 07/01/16 10:57 Asa - PO 81 mg DAILY YEISON Administration Atorvastatin Calcium 80 mg 06/15/16 22:00 06/30/16 22:23 Lipitor - PO 80 mg HS YEISON Administration Budesonide/Formoterol Fumarate 2 puff 06/21/16 12:30 07/01/16 10:58 Symbicort 160/4.5mcg - IH Not Given BID YEISON Chlorhexidine Gluconate 15 ml 06/24/16 22:00 07/01/16 10:57 Peridex - MM 15 ml BID YEISON Administration Diltiazem HCl 10 mg 06/25/16 09:08 06/28/16 12:14 Cardizem Injection - IVPUSH 10 mg Q4H PRN Administration TACHYCARDIA Diltiazem HCl 60 mg 06/26/16 12:00 07/01/16 13:10 Cardizem - PO 60 mg Q6HPO YEISON Administration Enalapril Maleate 5 mg 06/15/16 22:00 07/01/16 10:57 Vasotec - PO 5 mg BID YEISON Administration Heparin Sodium (Porcine) 5,000 unit 06/27/16 10:00 07/01/16 10:57 Heparin - SQ 5,000 unit BID YEISON Administration Hydralazine HCl 10 mg 06/15/16 22:00 07/01/16 13:10 Apresoline - PO 10 mg TID YEISON Administration Propofol 100 mls @ 3.549 mls/hr 06/23/16 00:45 07/01/16 03:14 Diprivan - IVPB 3.549 mls/hr TITR YEISON Administration Protocol 10 MCG/KG/MIN Meropenem 1 gm/ Dextrose 100 mls @ 100 mls/hr 06/30/16 17:00 07/01/16 10:56 IVPB 100 mls/hr Q8H-IV YEISON Administration Protocol Ibuprofen 400 mg 06/19/16 19:17 06/29/16 21:18 Motrin - PO 400 mg Q6H PRN Administration PAIN Insulin Aspart 1 vial 06/25/16 22:00 07/01/16 11:47 Novolog Vial Sliding Scale - SQ 4 units ACHS YEISON Administration Protocol Insulin Detemir 10 units 06/26/16 22:00 06/30/16 22:26 Levemir Vial SQ 10 units HS YEISON Administration Methylprednisolone Sodium Succinate 40 mg 07/01/16 22:00 Solu-Medrol - IVPB BID YEISON Nitroglycerin 0.4 mg 06/20/16 11:09 06/20/16 11:35 Nitrostat - SL 0.4 mg Q5M PRN Administration FOR CHEST PAIN Pantoprazole Sodium 40 mg 06/23/16 10:00 07/01/16 10:58 Protonix 40mg Ivpb (Pre-Docked) IVPB 40 mg DAILY YEISON Administration ASSESSMENT/PLAN: acute hypercapneic respiratory failure due to aspiration pneumonia sedation again started last night as patient got agitated keep spo2 over 90 Nebulizers YEISON and PRN on solumedrom 40 q12h on meropenem day 2 sputum : psudomonas, urine citrobacter koseri abg in morning ID on case on duoneb neb q6h standing cxr reviewd, Trop i elevated could be stress induce trending down hyperkalemia kaxylate given k decreased to 4.5 diarrhoea c diff toxin negative Shock improved could be from aspiration pneumonia altered mental status could be from metabolic encephalopathy improved sedation stopped H/O HTN/ afib continue enalapril 5 bid and hydralazine 10 tid on cardiazem 60mg q6h h/o copd on duoneb on solumedrol 40 q8h DM on sliding scale novalog influenza positive completed a course of tamiflue Microcytic anemia HGB stable 8.9 FEN electrolyet follow in am tube feed Prophylaxis DVT: heparin sq GI: PPI iv Code status - Full code dispo : admit in icu Visit type - Emergency Visit Emergency Visit: Yes ED Registration Date: 05/30/16 Care time: The patient presented to the Emergency Department on the above date and was hospitalized for further evaluation of their emergent condition. - New Patient This patient is new to me today: No - Critical Care Critical Care patient: Yes Total Critical Care Time (in minutes): 45 Critical Care Statement: The care of this patient involved high complexity decision making to prevent further life threatening deterioration of the patient 's condition and/or to evalute & treat vital organ system(s) failure or risk of failure.
--- NOTE | 2016-07-01 18:38 | PN ---
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, Physician History of Present Illness: intubated - Current Medication List Current Medications: Active Medications Acetaminophen (Tylenol -) 650 mg PO Q4H PRN PRN Reason: FEVER OR PAIN Last Admin: 06/30/16 22:25 Dose: 650 mg Albuterol/Ipratropium (Duoneb -) 1 amp NEB QIDR [facility] Last Admin: 07/01/16 11:05 Dose: 1 amp Aspirin (Asa -) 81 mg PO DAILY [facility] Last Admin: 07/01/16 10:57 Dose: 81 mg Atorvastatin Calcium (Lipitor -) 80 mg PO HS [facility] Last Admin: 06/30/16 22:23 Dose: 80 mg Budesonide/Formoterol Fumarate (Symbicort 160/4.5mcg -) 2 puff IH BID [facility] Last Admin: 07/01/16 10:58 Dose: Not Given Chlorhexidine Gluconate (Peridex -) 15 ml MM BID [facility] Last Admin: 07/01/16 10:57 Dose: 15 ml Diltiazem HCl (Cardizem Injection -) 10 mg IVPUSH Q4H PRN PRN Reason: TACHYCARDIA Last Admin: 06/28/16 12:14 Dose: 10 mg Diltiazem HCl (Cardizem -) 60 mg PO Q6HPO [facility] Last Admin: 07/01/16 17:18 Dose: 60 mg Enalapril Maleate (Vasotec -) 5 mg PO BID [facility] Last Admin: 07/01/16 10:57 Dose: 5 mg Heparin Sodium (Porcine) (Heparin -) 5,000 unit SQ BID [facility] Last Admin: 07/01/16 10:57 Dose: 5,000 unit Hydralazine HCl (Apresoline -) 10 mg PO TID [facility] Last Admin: 07/01/16 13:10 Dose: 10 mg Propofol (Diprivan -) 100 mls @ 3.549 mls/hr IVPB TITR YEISON; 10 MCG/KG/MIN PRN Reason: Protocol Last Admin: 07/01/16 03:14 Dose: 3.549 mls/hr Meropenem 1 gm/ Dextrose 100 mls @ 100 mls/hr IVPB Q8H-IV YEISON PRN Reason: Protocol Last Admin: 07/01/16 17:14 Dose: 100 mls/hr Ibuprofen (Motrin -) 400 mg PO Q6H PRN PRN Reason: PAIN Last Admin: 06/29/16 21:18 Dose: 400 mg Insulin Aspart (Novolog Vial Sliding Scale -) 1 vial SQ ACHS YEISON PRN Reason: Protocol Last Admin: 07/01/16 17:40 Dose: 10 units Insulin Detemir (Levemir Vial) 10 units SQ HS [facility] Last Admin: 06/30/16 22:26 Dose: 10 units Methylprednisolone Sodium Succinate (Solu-Medrol -) 40 mg IVPB BID [facility] Nitroglycerin (Nitrostat -) 0.4 mg SL Q5M PRN PRN Reason: FOR CHEST PAIN Last Admin: 06/20/16 11:35 Dose: 0.4 mg Pantoprazole Sodium (Protonix 40mg Ivpb (Pre-Docked)) 40 mg IVPB DAILY [facility] Last Admin: 07/01/16 10:58 Dose: 40 mg - Objective Vital Signs: Vital Signs Temperature 98.7 F 07/01/16 14:00 Pulse Rate 73 07/01/16 18:00 Respiratory Rate 13 07/01/16 18:00 Blood Pressure 120/53 07/01/16 18:00 O2 Sat by Pulse Oximetry (%) 95 07/01/16 10:30 Constitutional: Yes: Calm HENT: Yes: Atraumatic Neck: Yes: Supple Cardiovascular: Yes: Regular Rate and Rhythm Respiratory: Yes: Rhonchi Gastrointestinal: Yes: Normal Bowel Sounds Extremities: Yes: WNL Neurological: Yes: Alert, Oriented Labs: CBC, BMP 07/01/16 05:10 07/01/16 05:10 INR, PTT INR 1.02 (0.82-1.09) 06/09/16 05:05 Problem List - Problems (1) Respiratory failure Assessment/Plan: pt is intubated apiration pna on abx on steroids Code(s): J96.90 - RESPIRATORY FAILURE, UNSP, UNSP W HYPOXIA OR HYPERCAPNIA Qualifiers: Chronicity: acute Respiratory failure complication: hypoxia and hypercapnia Qualified Code(s): J96.01 - Acute respiratory failure with hypoxia (2) Chronic respiratory failure with hypoxia Assessment/Plan: duo nebs steroids Code(s): J96.11 - CHRONIC RESPIRATORY FAILURE WITH HYPOXIA (3) CAD (coronary artery disease) Assessment/Plan: on meds follow up labs continue current meds Code(s): I25.10 - ATHSCL HEART DISEASE OF [place] CORONARY ARTERY W/O ANG PCTRS (4) COPD (chronic obstructive pulmonary disease) Assessment/Plan: on meds stable steroids duo nebs Code(s): J44.9 - CHRONIC OBSTRUCTIVE PULMONARY DISEASE, UNSPECIFIED (5) Chronic diastolic CHF (congestive heart failure) Assessment/Plan: stable on meds Code(s): I50.32 - CHRONIC DIASTOLIC (CONGESTIVE) HEART FAILURE (6) HLD (hyperlipidemia) Assessment/Plan: on meds Code(s): E78.5 - HYPERLIPIDEMIA, UNSPECIFIED Qualifiers: Hyperlipidemia type: unspecified Qualified Code(s): E78.5 - Hyperlipidemia, unspecified (7) HTN (hypertension) Assessment/Plan: on meds stable Code(s): I10 - ESSENTIAL (PRIMARY) HYPERTENSION Qualifiers: Hypertension type: essential hypertension Qualified Code(s): I10 - Essential (primary) hypertension (8) History of cigarette smoking Code(s): Z87.891 - PERSONAL HISTORY OF NICOTINE DEPENDENCE (9) Influenza Assessment/Plan: on meds id consult Code(s): J11.1 - FLU DUE TO UNIDENTIFIED INFLUENZA VIRUS W OTH RESP MANIFEST (10) Acute on chronic respiratory failure with hypoxia and hypercapnia Code(s): J96.21 - ACUTE AND CHRONIC RESPIRATORY FAILURE WITH HYPOXIA J96.22 - ACUTE AND CHRONIC RESPIRATORY FAILURE WITH HYPERCAPNIA (11) History of PSVT (paroxysmal supraventricular tachycardia) Code(s): Z86.79 - PERSONAL HISTORY OF OTHER DISEASES OF THE CIRCULATORY SYSTEM (12) Anemia Assessment/Plan: hgb stable Code(s): D64.9 - ANEMIA, UNSPECIFIED (13) NSTEMI (non-ST elevated myocardial infarction) Code(s): I21.4 - NON-ST ELEVATION (NSTEMI) MYOCARDIAL INFARCTION Assessment/Plan 1.+Influenza treated 2.Acute respiratory failure intubated refusing trach RLL INFILTERATE ON ABX AND DUO NEBS 3.ANEMIA STABLE 4.NSTEMI 5.History breast cancer, lung mass with negative bx 6.COPD, chronic with chronic hypoxemia 7.chf STABLE 8.LOWER GI BLEED TRANSFUSE 1 UNIT FU CBC IV PROTONIX BID DR LUCIUS DEJESUS CC in reviewing chart and formulating care 30 min
[2016-07-01] MEDS ORDERED: methylPREDNISolone NA SUCC 125 MG/2 ML VIAL ONE (20:54)
[2016-07-01] MEDS: IBUPROFEN 400 MG TABLET (FP) PO PRN (20:59)
[2016-07-01] MEDS: ATORVASTATIN CA 80 MG TABLET (FP) PO SCH (21:00)
[2016-07-01] MEDS: INSULIN DETEMIR 100 UNITS/ML MDV SQ SCH (21:09)
[2016-07-02] MEDS: PROPOFOL 100 ML IVPB SCH (00:45)
[2016-07-02] MEDS: MEROPENEM 1 GM in DEXTROSE 5%-WATER - 100 ML IVPB SCH ×3 (01:30→17:35)
[2016-07-02 05:53] LABS: MCH 24.4 pg (25.7-33.7); MCHC 31.4 g/dl (32.0-36.0); MEAN CELL VOLUME 77.7 fl (80-96); MEAN PLT VOLUME 10.2 fl (7.5-11.1); PLATELET COUNT 230 K/MM3 (134-434); RDW 27.5 % (11.6-15.6); WHITE BLOOD COUNT 20.8 K/mm3 (4.0-10.0)
[2016-07-02] MEDS: dilTIAZem HCL 60 MG TABLET (FP) PO SCH ×3 (06:02→17:34)
[2016-07-02] MEDS: hydrALAZINE HCL 10 MG TABLET PO SCH ×3 (06:02→21:17)
[2016-07-02] MEDS: BANATROL PLUS POWDER PACKET PO SCH ×3 (06:03→21:18)
[2016-07-02] MEDS: INSULIN SLIDING SCALE (NOVOLOG) 1 VIAL SQ SCH ×4 (06:12→21:27)
[2016-07-02] MEDS ORDERED: INSULIN (NOVOLOG) ASPART 100 UNITS/ML 10ML VIAL ONE (06:14)
[2016-07-02] MEDS: ALBUTEROL SO4 2.5/IPRATROPIUM 0.5 INH SOL 3 ML VIAL.NEB. NEB SCH (06:28)
[2016-07-02 07:06] LABS: METAMYELOCYTE 5 % (0-2); PLATELET COMMENT2 NO CLOTTING DETECTED; PLATELET ESTIMATE ADEQUATE (NORMAL)
[2016-07-02 07:07] LABS: ANISOCYTOSIS 1+; HYPOCHROMIA 1+; POLYCHROMASIA 1+
--- NOTE | 2016-07-02 07:40 | PN ---
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 (short form) - Note 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: PULM/CCM 24HR: restarted on low dose propofol failing breathing trials, pt refusing tracheostomy SUBJECTIVE: Patient seen and examined in the ICU. Remians intubated, low grade temp 99 but otherwise stable CXR: No gross change in bibasilar infiltrates, L> R small effusion OBJECTIVE: Vital Signs Temp 99.4 F 07/02/16 06:00 Pulse 78 07/02/16 06:00 Resp 24 07/02/16 06:26 BP 102/42 07/02/16 06:00 Pulse Ox 100 07/01/16 20:00 Intake & Output 07/01/16 07/01/16 07/02/16 11:59 23:59 11:59 Intake Total 644 1659 807 Output Total 350 800 350 Balance 294 859 457 Weight 52.872 kg 52.872 kg Intake: IV 75 200 98 Diprivan - 100 ml @ 10 75 200 98 MCG/KG/MIN 3.549 mls/hr IVPB TITR [facility] Rx#: [id number] saline lock 0 IVPB 100 200 100 Tube Feeding 329 799 329 Tube Irrigant 140 460 280 Output: Urine 350 800 350 Mahoney 350 800 350 Other: Voiding Method Indwelling Catheter Indwelling Catheter Bowel Movement Yes Weight Measurement Method Built in Bedscale Built in [facility] Active Medications Acetaminophen (Tylenol -) 650 mg PO Q4H PRN PRN Reason: FEVER OR PAIN Last Admin: 06/30/16 22:25 Dose: 650 mg Albuterol/Ipratropium (Duoneb -) 1 amp NEB QIDR [facility] Last Admin: 07/02/16 06:28 Dose: 1 amp Aspirin (Asa -) 81 mg PO DAILY [facility] Last Admin: 07/01/16 10:57 Dose: 81 mg Atorvastatin Calcium (Lipitor -) 80 mg PO HS [facility] Last Admin: 07/01/16 21:00 Dose: 80 mg Budesonide/Formoterol Fumarate (Symbicort 160/4.5mcg -) 2 puff IH BID [facility] Last Admin: 07/01/16 21:00 Dose: Not Given Chlorhexidine Gluconate (Peridex -) 15 ml MM BID [facility] Last Admin: 07/01/16 20:59 Dose: 15 ml Diltiazem HCl (Cardizem Injection -) 10 mg IVPUSH Q4H PRN PRN Reason: TACHYCARDIA Last Admin: 06/28/16 12:14 Dose: 10 mg Diltiazem HCl (Cardizem -) 60 mg PO Q6HPO [facility] Last Admin: 07/02/16 06:02 Dose: 60 mg Enalapril Maleate (Vasotec -) 5 mg PO BID [facility] Last Admin: 07/01/16 21:00 Dose: 5 mg Heparin Sodium (Porcine) (Heparin -) 5,000 unit SQ BID [facility] Last Admin: 07/01/16 20:59 Dose: 5,000 unit Hydralazine HCl (Apresoline -) 10 mg PO TID [facility] Last Admin: 07/02/16 06:02 Dose: 10 mg Propofol (Diprivan -) 100 mls @ 3.549 mls/hr IVPB TITR YEISON; 10 MCG/KG/MIN PRN Reason: Protocol Last Admin: 07/02/16 00:45 Dose: 14.196 mls/hr Meropenem 1 gm/ Dextrose 100 mls @ 100 mls/hr IVPB Q8H-IV YEISON PRN Reason: Protocol Last Admin: 07/02/16 01:30 Dose: 100 mls/hr Ibuprofen (Motrin -) 400 mg PO Q6H PRN PRN Reason: PAIN Last Admin: 07/01/16 20:59 Dose: 400 mg Insulin Aspart (Novolog Vial Sliding Scale -) 1 vial SQ ACHS [facility] PRN Reason: Protocol Last Admin: 07/02/16 06:12 Dose: 8 units Insulin Detemir (Levemir Vial) 10 units SQ HS [facility] Last Admin: 07/01/16 21:09 Dose: 10 units Methylprednisolone Sodium Succinate (Solu-Medrol -) 40 mg IVPB BID [facility] Last Admin: 07/01/16 21:00 Dose: 40 mg Nitroglycerin (Nitrostat -) 0.4 mg SL Q5M PRN PRN Reason: FOR CHEST PAIN Last Admin: 06/20/16 11:35 Dose: 0.4 mg Pantoprazole Sodium (Protonix 40mg Ivpb (Pre-Docked)) 40 mg IVPB DAILY [facility] Last Admin: 07/01/16 10:58 Dose: 40 mg Gen: intubated, awake Heart: RRR Lung: scattered rhonchi Abd: soft, nontender Ext: trace edema CBC, BMP 07/02/16 05:10 07/02/16 05:10 Microbiology 06/28/16 19:00 Stool Clostridium difficile Antigen (ANDREW) - Final 06/28/16 19:00 Stool Clostridium difficile Toxin Assay - Final 06/22/16 15:00 Blood - Peripheral Venous Blood Culture - Final NO GROWTH AFTER 5 DAYS INCUBATION 06/22/16 13:58 Blood - Peripheral Venous Blood Culture - Final NO GROWTH AFTER 5 DAYS INCUBATION 06/23/16 00:37 Sputum - Endotrachea Suction/Ventilator Gram Stain - Final 06/23/16 00:37 Sputum - Endotrachea Suction/Ventilator Sputum Culture - Final Pseudomonas Aeruginosa 06/23/16 00:37 Urine - Urine - Catheterized Urine Culture - Final Citrobacter Koseri Citrobacter Koseri#2 06/08/16 13:45 Urine - Urine Mahoney Urine Culture - Final Yeast Like Organism 06/04/16 07:10 Sputum - Endotrachea Suction/Ventilator Gram Stain - Final 06/04/16 07:10 Sputum - Endotrachea Suction/Ventilator Sputum Culture - Final NORMAL RESPIRATORY LAKSHMI 05/30/16 23:30 Blood - Peripheral Venous Blood Culture - Final NO GROWTH AFTER 5 DAYS INCUBATION 05/30/16 21:30 Blood - Peripheral Venous Blood Culture - Final NO GROWTH AFTER 5 DAYS INCUBATION 05/30/16 23:30 Sputum - Endotracheal Suction W/O Vent Gram Stain - Final 05/30/16 23:30 Sputum - Endotracheal Suction W/O Vent Sputum Culture - Final NORMAL RESPIRATORY LAKSHMI 05/30/16 16:54 Urine - Urine - Catheterized Urine Culture - Final NO GROWTH OBTAINED 05/30/16 23:30 Nasopharyngeal Swab Influenza Types A,B Antigen (ANDREW) - Final 05/30/16 23:30 Nasopharyngeal Swab - Final re ASSESSMENT AND PLAN: Acute on Chronic Hypoxic and Hypercapneic Respiratory Failure Influenza A s/p treatment Pneumonia - ?Aspiration Acute COPD Exacerbation CAD +Troponins/Acute NSTEMI h/o Breast Ca 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 - Medrol taper - inhaled bronchodilators - taper FiO2, PEEP to keep SpO2 >90%, daily breathing trials trach vs extubation with no reintubation - ASA - lasix as needed for net even volume status - enteral feeds, prostat - DVT/GI prophylaxis - continue ICU monitoring Critical care time spent in reviewing chart, evaluating pt and formulating plan 35min Hussein Reid [facility] [id number] Problem List - Problems (1) Acute on chronic respiratory failure with hypoxia and hypercapnia Code(s): J96.21 - ACUTE AND CHRONIC RESPIRATORY FAILURE WITH HYPOXIA J96.22 - ACUTE AND CHRONIC RESPIRATORY FAILURE WITH HYPERCAPNIA (2) Anemia Code(s): D64.9 - ANEMIA, UNSPECIFIED (3) Aortic stenosis Code(s): I35.0 - NONRHEUMATIC AORTIC (VALVE) STENOSIS (4) History of PSVT (paroxysmal supraventricular tachycardia) Code(s): Z86.79 - PERSONAL HISTORY OF OTHER DISEASES OF THE CIRCULATORY SYSTEM (5) Respiratory failure Code(s): J96.90 - RESPIRATORY FAILURE, UNSP, UNSP W HYPOXIA OR HYPERCAPNIA Qualifiers: Chronicity: acute Respiratory failure complication: hypoxia and hypercapnia Qualified Code(s): J96.01 - Acute respiratory failure with hypoxia (6) Chronic respiratory failure with hypoxia Code(s): J96.11 - CHRONIC RESPIRATORY FAILURE WITH HYPOXIA
[2016-07-02] MEDS ORDERED: PT OWN MED DRAWER 7, Y5N ONE (08:26)
[2016-07-02 09:23] LABS: CALCIUM 8.3 mg/dL (8.5-10.1); COCKROFT - GAULT 102.986; CREATININE 0.4 mg/dL (0.55-1.02)
[2016-07-02] MEDS: methylPREDNISolone NA SUCC 40 MG/1 ML VIAL IVPB SCH ×2 (09:34→21:19)
[2016-07-02] MEDS: CHLORHEXIDINE GLUCONATE 0.12% 15ML CUP MM SCH ×2 (09:34→21:18)
[2016-07-02] MEDS: HEPARIN NA (PORCINE) 5,000 UNITS/ML 1ML VIAL SQ SCH (09:34)
[2016-07-02] MEDS: ENALAPRIL MALEATE 5 MG TABLET (FP) PO SCH (09:34)
[2016-07-02] MEDS: ASPIRIN 81 MG CHEWABLE TABLETS PO SCH (09:34)
[2016-07-02] MEDS: BUDESONIDE/FORMETEROL FUMARATE 160/4.5 mcg INHALER IH SCH ×2 (09:35→21:18)
[2016-07-02] MEDS: PANTOPRAZOLE SODIUM 40 MG/100 ML PRE-DOCKED IVPB SCH ×2 (09:35→21:19)
[2016-07-02] MEDS ORDERED: morphine CARPU-JECT 2 MG/1 ML DISP.SYRIN ONE (12:00)
[2016-07-02] MEDS ORDERED: FUROSEMIDE 40 MG/4 ML INJECTABLE VIAL IVPUSH ONE (12:20)
[2016-07-02] MEDS: morphine CARPU-JECT 2 MG/1 ML DISP.SYRIN IVPUSH PRN (12:31)
--- NOTE | 2016-07-02 12:54 | PN ---
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, Physician History of Present Illness: intubated sedated - Current Medication List Current Medications: Active Medications Acetaminophen (Tylenol -) 650 mg PO Q4H PRN PRN Reason: FEVER OR PAIN Last Admin: 06/30/16 22:25 Dose: 650 mg Aspirin (Asa -) 81 mg PO DAILY [facility] Last Admin: 07/02/16 09:34 Dose: 81 mg Atorvastatin Calcium (Lipitor -) 80 mg PO HS [facility] Last Admin: 07/01/16 21:00 Dose: 80 mg Budesonide/Formoterol Fumarate (Symbicort 160/4.5mcg -) 2 puff IH BID [facility] Last Admin: 07/02/16 09:35 Dose: Not Given Chlorhexidine Gluconate (Peridex -) 15 ml MM BID [facility] Last Admin: 07/02/16 09:34 Dose: 15 ml Diltiazem HCl (Cardizem Injection -) 10 mg IVPUSH Q4H PRN PRN Reason: TACHYCARDIA Last Admin: 06/28/16 12:14 Dose: 10 mg Diltiazem HCl (Cardizem -) 60 mg PO Q6HPO [facility] Last Admin: 07/02/16 12:03 Dose: Not Given Enalapril Maleate (Vasotec -) 5 mg PO BID [facility] Last Admin: 07/02/16 09:34 Dose: 5 mg Heparin Sodium (Porcine) (Heparin -) 5,000 unit SQ BID [facility] Last Admin: 07/02/16 09:34 Dose: 5,000 unit Hydralazine HCl (Apresoline -) 10 mg PO TID [facility] Last Admin: 07/02/16 06:02 Dose: 10 mg Meropenem 1 gm/ Dextrose 100 mls @ 100 mls/hr IVPB Q8H-IV [facility] PRN Reason: Protocol Last Admin: 07/02/16 09:34 Dose: 100 mls/hr Ibuprofen (Motrin -) 400 mg PO Q6H PRN PRN Reason: PAIN Last Admin: 07/01/16 20:59 Dose: 400 mg Insulin Aspart (Novolog Vial Sliding Scale -) 1 vial SQ ACHS [facility] PRN Reason: Protocol Last Admin: 07/02/16 10:48 Dose: 8 units Insulin Detemir (Levemir Vial) 10 units SQ HS [facility] Last Admin: 07/01/16 21:09 Dose: 10 units Methylprednisolone Sodium Succinate (Solu-Medrol -) 40 mg IVPB BID [facility] Last Admin: 07/02/16 09:34 Dose: 40 mg Morphine Sulfate (Morphine Injection -) 2 mg IVPUSH Q3H PRN PRN Reason: SHORTNESS OF BREATH Last Admin: 07/02/16 12:31 Dose: 2 mg Nitroglycerin (Nitrostat -) 0.4 mg SL Q5M PRN PRN Reason: FOR CHEST PAIN Last Admin: 06/20/16 11:35 Dose: 0.4 mg Pantoprazole Sodium (Protonix 40mg Ivpb (Pre-Docked)) 40 mg IVPB DAILY [facility] Last Admin: 07/02/16 09:35 Dose: 40 mg - Objective Vital Signs: Vital Signs Temperature 98.9 F 07/02/16 08:00 Pulse Rate 94 H 07/02/16 12:00 Respiratory Rate 07/02/16 12:00 Blood Pressure 122/49 07/02/16 12:00 O2 Sat by Pulse Oximetry (%) 98 07/02/16 11:45 Constitutional: Yes: Other Neck: Yes: Supple Cardiovascular: Yes: Regular Rate and Rhythm Respiratory: Yes: Intubated, Mechanically Ventilated, Other Gastrointestinal: Yes: Normal Bowel Sounds, Soft Musculoskeletal: Yes: WNL Extremities: Yes: WNL Neurological: Yes: Other Labs: CBC, BMP 07/02/16 05:10 07/02/16 08:40 INR, PTT INR 1.02 (0.82-1.09) 06/09/16 05:05 Assessment/Plan Problem List - Problems (1) Aortic stenosis Code(s): I35.0 - NONRHEUMATIC AORTIC (VALVE) STENOSIS (2) History of PSVT (paroxysmal supraventricular tachycardia) Code(s): Z86.79 - PERSONAL HISTORY OF OTHER DISEASES OF THE CIRCULATORY SYSTEM (3) NSTEMI (non-ST elevated myocardial infarction) Code(s): I21.4 - NON-ST ELEVATION (NSTEMI) MYOCARDIAL INFARCTION (4) Respiratory failure Code(s): J96.90 - RESPIRATORY FAILURE, UNSP, UNSP W HYPOXIA OR HYPERCAPNIA Qualifiers: Chronicity: acute Respiratory failure complication: hypoxia and hypercapnia Qualified Code(s): J96.01 - Acute respiratory failure with hypoxia (5) Pulmonary hypertension Code(s): I27.2 - OTHER SECONDARY PULMONARY HYPERTENSION (6) Pulmonary nodules Code(s): R91.8 - OTHER NONSPECIFIC ABNORMAL FINDING OF LUNG FIELD (7) COPD (chronic obstructive pulmonary disease) Code(s): J44.9 - CHRONIC OBSTRUCTIVE PULMONARY DISEASE, UNSPECIFIED (8) History of cigarette smoking Code(s): Z87.891 - PERSONAL HISTORY OF NICOTINE DEPENDENCE (9) Acute on chronic respiratory failure with hypoxia and hypercapnia Code(s): J96.21 - ACUTE AND CHRONIC RESPIRATORY FAILURE WITH HYPOXIA J96.22 - ACUTE AND CHRONIC RESPIRATORY FAILURE WITH HYPERCAPNIAEPENDENCE +Troponins/Acute NSTEMI Lactic Acidosis h/o Breast 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
[2016-07-02] MEDS ORDERED: LORAZEPAM CARPU-JECT 2 MG/ML DISP.SYRIN IVPUSH ONE (14:35)
[2016-07-02 15:52] LABS: MCH 24.1 pg (25.7-33.7); MCHC 31.1 g/dl (32.0-36.0); MEAN CELL VOLUME 77.5 fl (80-96); MEAN PLT VOLUME 9.8 fl (7.5-11.1); PLATELET COUNT 229 K/MM3 (134-434); RDW 27.5 % (11.6-15.6); WHITE BLOOD COUNT 20.5 K/mm3 (4.0-10.0)
[2016-07-02 18:26] LABS: ANISOCYTOSIS 3+; HYPOCHROMIA 2+; POLYCHROMASIA 1+; TARGET CELLS 1+
[2016-07-02 18:27] LABS: PLATELET ESTIMATE ADEQUATE (NORMAL)
--- NOTE | 2016-07-02 18:49 | PN ---
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, Physician History of Present Illness: pt self xtubated on bipap pasing blood clots per rectum - Current Medication List Current Medications: Active Medications Acetaminophen (Tylenol -) 650 mg PO Q4H PRN PRN Reason: FEVER OR PAIN Last Admin: 06/30/16 22:25 Dose: 650 mg Atorvastatin Calcium (Lipitor -) 80 mg PO HS [facility] Last Admin: 07/01/16 21:00 Dose: 80 mg Budesonide/Formoterol Fumarate (Symbicort 160/4.5mcg -) 2 puff IH BID [facility] Last Admin: 07/02/16 09:35 Dose: Not Given Chlorhexidine Gluconate (Peridex -) 15 ml MM BID [facility] Last Admin: 07/02/16 09:34 Dose: 15 ml Diltiazem HCl (Cardizem Injection -) 10 mg IVPUSH Q4H PRN PRN Reason: TACHYCARDIA Last Admin: 06/28/16 12:14 Dose: 10 mg Diltiazem HCl (Cardizem -) 60 mg PO Q6HPO [facility] Last Admin: 07/02/16 17:34 Dose: Not Given Enalapril Maleate (Vasotec -) 5 mg PO BID [facility] Last Admin: 07/02/16 09:34 Dose: 5 mg Heparin Sodium (Porcine) (Heparin -) 5,000 unit SQ BID [facility] Last Admin: 07/02/16 09:34 Dose: 5,000 unit Hydralazine HCl (Apresoline -) 10 mg PO TID [facility] Last Admin: 07/02/16 16:31 Dose: Not Given Meropenem 1 gm/ Dextrose 100 mls @ 100 mls/hr IVPB Q8H-IV [facility] PRN Reason: Protocol Last Admin: 07/02/16 17:35 Dose: 100 mls/hr Ibuprofen (Motrin -) 400 mg PO Q6H PRN PRN Reason: PAIN Last Admin: 07/01/16 20:59 Dose: 400 mg Insulin Aspart (Novolog Vial Sliding Scale -) 1 vial SQ ACHS [facility] PRN Reason: Protocol Last Admin: 07/02/16 16:32 Dose: 6 units Insulin Detemir (Levemir Vial) 10 units SQ HS [facility] Last Admin: 07/01/16 21:09 Dose: 10 units Methylprednisolone Sodium Succinate (Solu-Medrol -) 40 mg IVPB BID [facility] Last Admin: 07/02/16 09:34 Dose: 40 mg Morphine Sulfate (Morphine Injection -) 2 mg IVPUSH Q3H PRN PRN Reason: SHORTNESS OF BREATH Last Admin: 07/02/16 12:31 Dose: 2 mg Nitroglycerin (Nitrostat -) 0.4 mg SL Q5M PRN PRN Reason: FOR CHEST PAIN Last Admin: 06/20/16 11:35 Dose: 0.4 mg Pantoprazole Sodium (Protonix 40mg Ivpb (Pre-Docked)) 40 mg IVPB DAILY [facility] Last Admin: 07/02/16 09:35 Dose: 40 mg - Objective Vital Signs: Vital Signs Temperature 97.7 F 07/02/16 16:00 Pulse Rate 109 H 07/02/16 18:00 Respiratory Rate 26 H 07/02/16 18:00 Blood Pressure 107/62 07/02/16 18:00 O2 Sat by Pulse Oximetry (%) 98 07/02/16 11:45 Constitutional: Yes: Other (lethargic) HENT: Yes: Atraumatic Neck: Yes: Supple Cardiovascular: Yes: Regular Rate and Rhythm Respiratory: Yes: Rhonchi Gastrointestinal: Yes: Normal Bowel Sounds, Tenderness (mild lower abd) Neurological: Yes: Alert Labs: CBC, BMP 07/02/16 15:35 07/02/16 08:40 INR, PTT INR 1.02 (0.82-1.09) 06/09/16 05:05 Problem List - Problems (1) Respiratory failure Code(s): J96.90 - RESPIRATORY FAILURE, UNSP, UNSP W HYPOXIA OR HYPERCAPNIA Qualifiers: Chronicity: acute Respiratory failure complication: hypoxia and hypercapnia Qualified Code(s): J96.01 - Acute respiratory failure with hypoxia (2) Chronic respiratory failure with hypoxia Code(s): J96.11 - CHRONIC RESPIRATORY FAILURE WITH HYPOXIA (3) CAD (coronary artery disease) Code(s): I25.10 - ATHSCL HEART DISEASE OF [place] CORONARY ARTERY W/O ANG PCTRS (4) COPD (chronic obstructive pulmonary disease) Code(s): J44.9 - CHRONIC OBSTRUCTIVE PULMONARY DISEASE, UNSPECIFIED (5) Chronic diastolic CHF (congestive heart failure) Code(s): I50.32 - CHRONIC DIASTOLIC (CONGESTIVE) HEART FAILURE (6) HLD (hyperlipidemia) Code(s): E78.5 - HYPERLIPIDEMIA, UNSPECIFIED Qualifiers: Hyperlipidemia type: unspecified Qualified Code(s): E78.5 - Hyperlipidemia, unspecified (7) HTN (hypertension) Code(s): I10 - ESSENTIAL (PRIMARY) HYPERTENSION Qualifiers: Hypertension type: essential hypertension Qualified Code(s): I10 - Essential (primary) hypertension (8) History of cigarette smoking Code(s): Z87.891 - PERSONAL HISTORY OF NICOTINE DEPENDENCE (9) Influenza Code(s): J11.1 - FLU DUE TO UNIDENTIFIED INFLUENZA VIRUS W OTH RESP MANIFEST (10) Acute on chronic respiratory failure with hypoxia and hypercapnia Code(s): J96.21 - ACUTE AND CHRONIC RESPIRATORY FAILURE WITH HYPOXIA J96.22 - ACUTE AND CHRONIC RESPIRATORY FAILURE WITH HYPERCAPNIA (11) History of PSVT (paroxysmal supraventricular tachycardia) Code(s): Z86.79 - PERSONAL HISTORY OF OTHER DISEASES OF THE CIRCULATORY SYSTEM (12) Anemia Code(s): D64.9 - ANEMIA, UNSPECIFIED (13) NSTEMI (non-ST elevated myocardial infarction) Code(s): I21.4 - NON-ST ELEVATION (NSTEMI) MYOCARDIAL INFARCTION (14) GI (gastrointestinal bleed) Assessment/Plan: will transfuse 1 unit prbc fu cbc Code(s): K92.2 - GASTROINTESTINAL HEMORRHAGE, UNSPECIFIED Assessment/Plan 1.+Influenza treated 2.Acute respiratory failure intubated refusing trach RLL INFILTERATE ON ABX AND DUO NEBS 3.ANEMIA STABLE 4.NSTEMI 5.History breast cancer, lung mass with negative bx 6.COPD, chronic with chronic hypoxemia 7.chf STABLE 8.LOWER GI BLEED TRANSFUSE 1 UNIT FU CBC IV PROTONIX BID DR LUCIUS DEJESUS CC in reviewing chart and formulating care 30 min
[2016-07-02 18:58] LABS: MCHC 30.8 g/dl (32.0-36.0); MEAN PLT VOLUME 9.5 fl (7.5-11.1); PLATELET COUNT 205 K/MM3 (134-434); RDW 27.9 % (11.6-15.6); WHITE BLOOD COUNT 19.8 K/mm3 (4.0-10.0)
[2016-07-02] MEDS: ATORVASTATIN CA 80 MG TABLET (FP) PO SCH (21:18)
[2016-07-02 21:25] LABS: HYPOCHROMIA 2+; PLATELET ESTIMATE ADEQUATE (NORMAL)
[2016-07-02 21:26] LABS: ANISOCYTOSIS 3+; MICROCYTOSIS 2+; OVALOCYTES 1+; POLYCHROMASIA 1+
[2016-07-02] MEDS: INSULIN DETEMIR 100 UNITS/ML MDV SQ SCH (21:27)
[2016-07-03] MEDS: morphine CARPU-JECT 2 MG/1 ML DISP.SYRIN IVPUSH PRN ×5 (00:31→22:39)
[2016-07-03] MEDS: dilTIAZem HCL 60 MG TABLET (FP) PO SCH ×4 (00:31→17:31)
[2016-07-03] MEDS: MEROPENEM 1 GM in DEXTROSE 5%-WATER - 100 ML IVPB SCH ×3 (01:39→17:33)
[2016-07-03] MEDS: hydrALAZINE HCL 10 MG TABLET PO SCH ×3 (06:03→21:11)
[2016-07-03] MEDS: INSULIN SLIDING SCALE (NOVOLOG) 1 VIAL SQ SCH ×4 (06:03→22:16)
[2016-07-03] MEDS: BANATROL PLUS POWDER PACKET PO SCH ×3 (06:03→21:12)
[2016-07-03 06:06] LABS: MCHC 33.8 g/dl (32.0-36.0); MEAN PLT VOLUME 9.6 fl (7.5-11.1); PLATELET COUNT 164 K/MM3 (134-434); RDW 21.1 % (11.6-15.6); WHITE BLOOD COUNT 21.1 K/mm3 (4.0-10.0)
[2016-07-03 06:20] LABS: COCKROFT - GAULT 102.765; CREATININE 0.4 mg/dL (0.55-1.02)
[2016-07-03] MEDS: BUDESONIDE/FORMETEROL FUMARATE 160/4.5 mcg INHALER IH SCH ×2 (09:25→22:18)
[2016-07-03] MEDS: methylPREDNISolone NA SUCC 40 MG/1 ML VIAL IVPB SCH ×2 (09:26→22:17)
[2016-07-03] MEDS ORDERED: PT OWN MED DRAWER 7, Y5N ONE ×3 (09:27→21:36)
[2016-07-03] MEDS: PANTOPRAZOLE SODIUM 40 MG/100 ML PRE-DOCKED IVPB SCH ×2 (09:28→22:17)
[2016-07-03] MEDS: CHLORHEXIDINE GLUCONATE 0.12% 15ML CUP MM SCH ×2 (09:29→22:16)
--- NOTE | 2016-07-03 09:37 | PN ---
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 (short form) - Note 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: Seen and examined in the ICU Patient self extubated with stable respiratory status, currently on NC 4lpm LGIB required PRBC x2 with appropriate bump SVT 190 this AM t/w diltiazem IVpush Lasix for goal O>I Currently awake and alert denies SOB/n/CP/STOREY Current Medications Acetaminophen (Tylenol -) 650 mg PO Q4H PRN PRN Reason: FEVER OR PAIN Last Admin: 06/30/16 22:25 Dose: 650 mg Atorvastatin Calcium (Lipitor -) 80 mg PO HS [facility] Last Admin: 07/02/16 21:18 Dose: Not Given Budesonide/Formoterol Fumarate (Symbicort 160/4.5mcg -) 2 puff IH BID [facility] Last Admin: 07/03/16 09:25 Dose: Not Given Chlorhexidine Gluconate (Peridex -) 15 ml MM BID [facility] Last Admin: 07/03/16 09:29 Dose: Not Given Diltiazem HCl (Cardizem Injection -) 10 mg IVPUSH Q4H PRN PRN Reason: TACHYCARDIA Last Admin: 06/28/16 12:14 Dose: 10 mg Diltiazem HCl (Cardizem -) 60 mg PO Q6HPO [facility] Last Admin: 07/03/16 06:03 Dose: Not Given Hydralazine HCl (Apresoline -) 10 mg PO TID [facility] Last Admin: 07/03/16 06:03 Dose: Not Given Meropenem 1 gm/ Dextrose 100 mls @ 100 mls/hr IVPB Q8H-IV [facility] PRN Reason: Protocol Last Admin: 07/03/16 09:28 Dose: 100 mls/hr Insulin Aspart (Novolog Vial Sliding Scale -) 1 vial SQ ACHS [facility] PRN Reason: Protocol Last Admin: 07/03/16 06:03 Dose: Not Given Insulin Detemir (Levemir Vial) 10 units SQ HS [facility] Last Admin: 07/02/16 21:27 Dose: 10 units Methylprednisolone Sodium Succinate (Solu-Medrol -) 40 mg IVPB BID [facility] Last Admin: 07/03/16 09:26 Dose: 40 mg Morphine Sulfate (Morphine Injection -) 2 mg IVPUSH Q3H PRN PRN Reason: SHORTNESS OF BREATH Last Admin: 07/03/16 07:38 Dose: 2 mg Nitroglycerin (Nitrostat -) 0.4 mg SL Q5M PRN PRN Reason: FOR CHEST PAIN Last Admin: 06/20/16 11:35 Dose: 0.4 mg Pantoprazole Sodium (Protonix 40mg Ivpb (Pre-Docked)) 40 mg IVPB BID [facility] Last Admin: 07/03/16 09:28 Dose: 40 mg Vital Signs Period Temp Pulse Resp BP Sys/Rasheed Pulse Ox Last 24 Hr 97.6 F-98.7 F 80-109 20-26 88-143/47-87 96-100 Intake & Output 06/30/16 07/01/16 07/02/16 07/03/16 23:59 23:59 23:59 23:59 Intake Total 2946 2303 1917 450 Output Total 1100 1150 1550 500 Balance 1846 1153 367 -50 Weight 52.702 kg 52.872 kg 52.872 kg 52.758 kg Exam: awake and alert Neuro: BROCK, following commands CV: sinus tach Pulm: coarse bilateral breath sounds with ins crackles in bases Abd: SNTND +BS Ext: +1LE edema CBCD WBC 21.1 K/mm3 (4.0-10.0) H 07/03/16 05:15 RBC 4.04 M/mm3 (3.60-5.2) D 07/03/16 05:15 Hgb 10.9 GM/dL (10.7-15.3) D 07/03/16 05:15 Hct 32.3 % (32.4-45.2) L D 07/03/16 05:15 MCV 80.0 fl (80-96) 07/03/16 05:15 MCHC 33.8 g/dl (32.0-36.0) 07/03/16 05:15 RDW 21.1 % (11.6-15.6) H D 07/03/16 05:15 Plt Count 164 K/MM3 (134-434) 07/03/16 05:15 MPV 9.6 fl (7.5-11.1) 07/03/16 05:15 CMP Sodium 140 mmol/L (136-145) 07/03/16 05:15 Potassium 4.7 mmol/L (3.5-5.1) 07/03/16 05:15 Chloride 99 mmol/L (98-107) 07/03/16 05:15 Carbon Dioxide 35 mmol/L (21-32) H 07/03/16 05:15 Anion Gap 6 (8-16) L 07/03/16 05:15 BUN 34 mg/dL (7-18) H 07/03/16 05:15 Creatinine 0.4 mg/dL (0.55-1.02) L 07/03/16 05:15 Creat Clearance w eGFR > 60 (>60) 06/30/16 05:30 Random Glucose 116 mg/dL (74-106) H D 07/03/16 05:15 Calcium 8.0 mg/dL (8.5-10.1) L 07/03/16 05:15 Total Bilirubin 0.3 mg/dL (0.2-1.0) 06/30/16 05:30 AST 35 U/L (15-37) 06/30/16 05:30 ALT 24 U/L (12-78) D 06/30/16 05:30 Alkaline Phosphatase 84 U/L (45-117) 06/30/16 05:30 Total Protein 4.5 g/dl (6.4-8.2) L 06/30/16 05:30 Albumin 1.3 g/dl (3.4-5.0) L 06/30/16 05:30 CARDIAC ENZYMES Creatine Kinase 159 IU/L (26-192) D 06/24/16 09:30 Troponin I 0.61 ng/ml (0.00-0.05) H* 06/25/16 05:35 Problem List - Problems (1) Acute on chronic respiratory failure with hypoxia and hypercapnia Code(s): J96.21 - ACUTE AND CHRONIC RESPIRATORY FAILURE WITH HYPOXIA J96.22 - ACUTE AND CHRONIC RESPIRATORY FAILURE WITH HYPERCAPNIA (2) Anemia Code(s): D64.9 - ANEMIA, UNSPECIFIED (3) Aortic stenosis Code(s): I35.0 - NONRHEUMATIC AORTIC (VALVE) STENOSIS (4) History of PSVT (paroxysmal supraventricular tachycardia) Code(s): Z86.79 - PERSONAL HISTORY OF OTHER DISEASES OF THE CIRCULATORY SYSTEM (5) Respiratory failure Code(s): J96.90 - RESPIRATORY FAILURE, UNSP, UNSP W HYPOXIA OR HYPERCAPNIA Qualifiers: Chronicity: acute Respiratory failure complication: hypoxia and hypercapnia Qualified Code(s): J96.01 - Acute respiratory failure with hypoxia (6) Chronic respiratory failure with hypoxia Code(s): J96.11 - CHRONIC RESPIRATORY FAILURE WITH HYPOXIA ASSESSMENT AND PLAN: Acute on Chronic Hypoxic and Hypercapneic Respiratory Failure s/p self extubation Influenza A s/p treatment Pneumonia - ?Aspiration Acute COPD Exacerbation CAD +Troponins/Acute NSTEMI h/o Breast Ca 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 - Medrol taper - inhaled bronchodilators - O2 for Sat >89% - possible NIPPV overnight if needed - incentive spirometery - NT suction as needed - ASA - lasix as needed for net even volume status - enteral feeds, prostat - DVT/GI prophylaxis - continue ICU monitoring Amandeep RAINEY Pulm/CCM CCT: 35m
[2016-07-03] MEDS ORDERED: morphine CARPU-JECT 2 MG/1 ML DISP.SYRIN IVPUSH ONE (10:08)
[2016-07-03 12:23] LABS: ARTERIAL BLD GAS O2 SATURATION 89.5 % (90-98.9); ARTERIAL BLOOD GAS BASE EXCESS 10.2 meq/l (-2-2); ARTERIAL BLOOD GAS HCO3 34.6 meq/L (22-26)
[2016-07-03 12:25] LABS: ALLENS TEST POSITIVE; ART PUNCT SITE RIGHT RADIAL; ARTERIAL BLOOD GAS PO2 55.4 mmHg (70-100); ARTERIAL BLOOD GAS pH 7.49 (7.35-7.45); LPM/O2% 4LPM; PT. ON O2? YES; TYPE OF O2 NASAL
--- NOTE | 2016-07-03 15:12 | PN ---
GI 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 Subjective: patiient has COPD,severe respiratory insifficiency, CHF .SVT,aspiration pneumonia. She developed severe rectal bleeding yesterday. This has stabilized after holding the Aspirin and receiving 2 units of blood. SHe was suppose to have a PEG and tracheostomy which is is refusing. She is undecided whether to have gi w/u. She will not consent to any GI procedures. - Objective Vital Signs: Vital Signs Temperature 97.3 F L 07/03/16 14:00 Pulse Rate 88 07/03/16 14:00 Respiratory Rate 25 H 07/03/16 14:00 Blood Pressure 128/73 07/03/16 14:00 O2 Sat by Pulse Oximetry (%) 97 07/03/16 10:46 Constitutional: Well Nourished Eyes: Yes: Conjunctiva Clear HENT: Yes: Atraumatic Neck: Yes: Supple Cardiovascular: Yes: Regular Rate and Rhythm Respiratory: Yes: CTA Bilaterally ...Palpate: Yes: Soft. No: Firm/Rigid, Guarding, Hepatomegaly, Mass, Pulsatile Mass, Tenderness Labs: CBC, BMP 07/03/16 05:15 07/03/16 05:15 INR, PTT INR 1.02 (0.82-1.09) 06/09/16 05:05 Problem List - Problems (1) GI (gastrointestinal bleed) Assessment/Plan: --resolving R> family including Yulissa Seth and her brother understands the severity of clinical condition supporticve care a this time Code(s): K92.2 - GASTROINTESTINAL HEMORRHAGE, UNSPECIFIED
--- NOTE | 2016-07-03 15:29 | PN ---
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, Physician History of Present Illness: patient stable has self extubated herself breathing ok but very anxious refused peg tube - Current Medication List Current Medications: Active Medications Acetaminophen (Tylenol -) 650 mg PO Q4H PRN PRN Reason: FEVER OR PAIN Last Admin: 06/30/16 22:25 Dose: 650 mg Atorvastatin Calcium (Lipitor -) 80 mg PO HS [facility] Last Admin: 07/02/16 21:18 Dose: Not Given Budesonide/Formoterol Fumarate (Symbicort 160/4.5mcg -) 2 puff IH BID [facility] Last Admin: 07/03/16 09:25 Dose: Not Given Chlorhexidine Gluconate (Peridex -) 15 ml MM BID [facility] Last Admin: 07/03/16 09:29 Dose: Not Given Diltiazem HCl (Cardizem Injection -) 10 mg IVPUSH Q4H PRN PRN Reason: TACHYCARDIA Last Admin: 06/28/16 12:14 Dose: 10 mg Diltiazem HCl (Cardizem -) 60 mg PO Q6HPO [facility] Last Admin: 07/03/16 13:44 Dose: Not Given Hydralazine HCl (Apresoline -) 10 mg PO TID [facility] Last Admin: 07/03/16 14:19 Dose: Not Given Meropenem 1 gm/ Dextrose 100 mls @ 100 mls/hr IVPB Q8H-IV [facility] PRN Reason: Protocol Last Admin: 07/03/16 09:28 Dose: 100 mls/hr Insulin Aspart (Novolog Vial Sliding Scale -) 1 vial SQ ACHS [facility] PRN Reason: Protocol Last Admin: 07/03/16 11:33 Dose: Not Given Insulin Detemir (Levemir Vial) 10 units SQ HS [facility] Last Admin: 07/02/16 21:27 Dose: 10 units Methylprednisolone Sodium Succinate (Solu-Medrol -) 40 mg IVPB BID [facility] Last Admin: 07/03/16 09:26 Dose: 40 mg Morphine Sulfate (Morphine Injection -) 2 mg IVPUSH Q3H PRN PRN Reason: SHORTNESS OF BREATH Last Admin: 07/03/16 07:38 Dose: 2 mg Nitroglycerin (Nitrostat -) 0.4 mg SL Q5M PRN PRN Reason: FOR CHEST PAIN Last Admin: 06/20/16 11:35 Dose: 0.4 mg Pantoprazole Sodium (Protonix 40mg Ivpb (Pre-Docked)) 40 mg IVPB BID [facility] Last Admin: 07/03/16 09:28 Dose: 40 mg - Objective Vital Signs: Vital Signs Temperature 97.3 F L 07/03/16 14:00 Pulse Rate 88 07/03/16 14:00 Respiratory Rate 25 H 07/03/16 14:00 Blood Pressure 128/73 07/03/16 14:00 O2 Sat by Pulse Oximetry (%) 97 07/03/16 10:46 Constitutional: Yes: Anxious, Mild Distress, Other (hoarse voice) HENT: Yes: Atraumatic Neck: Yes: Supple, Trachea Midline Cardiovascular: Yes: Regular Rate and Rhythm Respiratory: Yes: Regular, On Venti-Mask, Poor Air Entry, Rhonchi, Other Gastrointestinal: Yes: Normal Bowel Sounds, Soft Musculoskeletal: Yes: WNL Extremities: Yes: WNL Neurological: Yes: Alert, Oriented Psychiatric: Yes: Alert, Oriented Labs: CBC, BMP 07/03/16 05:15 07/03/16 05:15 INR, PTT INR 1.02 (0.82-1.09) 06/09/16 05:05 - ....Imaging Chest X-ray: Report Reviewed, Image Reviewed Assessment/Plan Problem List - Problems (1) Aortic stenosis Code(s): I35.0 - NONRHEUMATIC AORTIC (VALVE) STENOSIS (2) History of PSVT (paroxysmal supraventricular tachycardia) Code(s): Z86.79 - PERSONAL HISTORY OF OTHER DISEASES OF THE CIRCULATORY SYSTEM (3) NSTEMI (non-ST elevated myocardial infarction) Code(s): I21.4 - NON-ST ELEVATION (NSTEMI) MYOCARDIAL INFARCTION (4) Respiratory failure Code(s): J96.90 - RESPIRATORY FAILURE, UNSP, UNSP W HYPOXIA OR HYPERCAPNIA Qualifiers: Chronicity: acute Respiratory failure complication: hypoxia and hypercapnia Qualified Code(s): J96.01 - Acute respiratory failure with hypoxia (5) Pulmonary hypertension Code(s): I27.2 - OTHER SECONDARY PULMONARY HYPERTENSION (6) Pulmonary nodules Code(s): R91.8 - OTHER NONSPECIFIC ABNORMAL FINDING OF LUNG FIELD (7) COPD (chronic obstructive pulmonary disease) Code(s): J44.9 - CHRONIC OBSTRUCTIVE PULMONARY DISEASE, UNSPECIFIED (8) History of cigarette smoking Code(s): Z87.891 - PERSONAL HISTORY OF NICOTINE DEPENDENCE (9) Acute on chronic respiratory failure with hypoxia and hypercapnia Code(s): J96.21 - ACUTE AND CHRONIC RESPIRATORY FAILURE WITH HYPOXIA J96.22 - ACUTE AND CHRONIC RESPIRATORY FAILURE WITH HYPERCAPNIAEPENDENCE +Troponins/Acute NSTEMI Lactic Acidosis h/o Breast Ca Lung Nodules with recent biopsy showing necrotizing granulomas Smoker pseudomonas pneumonia uti plan wbc slightly down continue abx continue as per pul/icu continue to monitor post extubation will need nutrition speech and swallow studies cc 40 min
--- NOTE | 2016-07-03 20:08 | PN ---
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, Physician History of Present Illness: no more rectal bleeding today feeling better - Current Medication List Current Medications: Active Medications Acetaminophen (Tylenol -) 650 mg PO Q4H PRN PRN Reason: FEVER OR PAIN Last Admin: 06/30/16 22:25 Dose: 650 mg Atorvastatin Calcium (Lipitor -) 80 mg PO HS [facility] Last Admin: 07/02/16 21:18 Dose: Not Given Budesonide/Formoterol Fumarate (Symbicort 160/4.5mcg -) 2 puff IH BID [facility] Last Admin: 07/03/16 09:25 Dose: Not Given Chlorhexidine Gluconate (Peridex -) 15 ml MM BID [facility] Last Admin: 07/03/16 09:29 Dose: Not Given Diltiazem HCl (Cardizem Injection -) 10 mg IVPUSH Q4H PRN PRN Reason: TACHYCARDIA Last Admin: 06/28/16 12:14 Dose: 10 mg Diltiazem HCl (Cardizem -) 60 mg PO Q6HPO [facility] Last Admin: 07/03/16 17:31 Dose: Not Given Hydralazine HCl (Apresoline -) 10 mg PO TID [facility] Last Admin: 07/03/16 14:19 Dose: Not Given Meropenem 1 gm/ Dextrose 100 mls @ 100 mls/hr IVPB Q8H-IV [facility] PRN Reason: Protocol Last Admin: 07/03/16 17:33 Dose: 100 mls/hr Insulin Aspart (Novolog Vial Sliding Scale -) 1 vial SQ ACHS [facility] PRN Reason: Protocol Last Admin: 07/03/16 17:31 Dose: Not Given Insulin Detemir (Levemir Vial) 10 units SQ HS [facility] Last Admin: 07/02/16 21:27 Dose: 10 units Methylprednisolone Sodium Succinate (Solu-Medrol -) 40 mg IVPB BID [facility] Last Admin: 07/03/16 09:26 Dose: 40 mg Morphine Sulfate (Morphine Injection -) 2 mg IVPUSH Q3H PRN PRN Reason: SHORTNESS OF BREATH Last Admin: 07/03/16 16:11 Dose: 2 mg Nitroglycerin (Nitrostat -) 0.4 mg SL Q5M PRN PRN Reason: FOR CHEST PAIN Last Admin: 06/20/16 11:35 Dose: 0.4 mg Pantoprazole Sodium (Protonix 40mg Ivpb (Pre-Docked)) 40 mg IVPB BID [facility] Last Admin: 07/03/16 09:28 Dose: 40 mg - Objective Vital Signs: Vital Signs Temperature 97.3 F L 07/03/16 14:00 Pulse Rate 95 H 07/03/16 18:00 Respiratory Rate 21 07/03/16 18:00 Blood Pressure 142/58 07/03/16 18:00 O2 Sat by Pulse Oximetry (%) 97 07/03/16 10:46 Constitutional: Yes: Calm HENT: Yes: Atraumatic Neck: Yes: Supple Cardiovascular: Yes: Regular Rate and Rhythm Respiratory: Yes: CTA Bilaterally Gastrointestinal: Yes: Normal Bowel Sounds Extremities: Yes: WNL Neurological: Yes: Alert, Oriented Labs: CBC, BMP 07/03/16 05:15 07/03/16 05:15 INR, PTT INR 1.02 (0.82-1.09) 06/09/16 05:05 Problem List - Problems (1) Respiratory failure Code(s): J96.90 - RESPIRATORY FAILURE, UNSP, UNSP W HYPOXIA OR HYPERCAPNIA Qualifiers: Chronicity: acute Respiratory failure complication: hypoxia and hypercapnia Qualified Code(s): J96.01 - Acute respiratory failure with hypoxia (2) Chronic respiratory failure with hypoxia Code(s): J96.11 - CHRONIC RESPIRATORY FAILURE WITH HYPOXIA (3) CAD (coronary artery disease) Code(s): I25.10 - ATHSCL HEART DISEASE OF [place] CORONARY ARTERY W/O ANG PCTRS (4) COPD (chronic obstructive pulmonary disease) Code(s): J44.9 - CHRONIC OBSTRUCTIVE PULMONARY DISEASE, UNSPECIFIED (5) Chronic diastolic CHF (congestive heart failure) Code(s): I50.32 - CHRONIC DIASTOLIC (CONGESTIVE) HEART FAILURE (6) HLD (hyperlipidemia) Code(s): E78.5 - HYPERLIPIDEMIA, UNSPECIFIED Qualifiers: Hyperlipidemia type: unspecified Qualified Code(s): E78.5 - Hyperlipidemia, unspecified (7) HTN (hypertension) Code(s): I10 - ESSENTIAL (PRIMARY) HYPERTENSION Qualifiers: Hypertension type: essential hypertension Qualified Code(s): I10 - Essential (primary) hypertension (8) History of cigarette smoking Code(s): Z87.891 - PERSONAL HISTORY OF NICOTINE DEPENDENCE (9) Influenza Code(s): J11.1 - FLU DUE TO UNIDENTIFIED INFLUENZA VIRUS W OTH RESP MANIFEST (10) Acute on chronic respiratory failure with hypoxia and hypercapnia Code(s): J96.21 - ACUTE AND CHRONIC RESPIRATORY FAILURE WITH HYPOXIA J96.22 - ACUTE AND CHRONIC RESPIRATORY FAILURE WITH HYPERCAPNIA (11) History of PSVT (paroxysmal supraventricular tachycardia) Code(s): Z86.79 - PERSONAL HISTORY OF OTHER DISEASES OF THE CIRCULATORY SYSTEM (12) Anemia Code(s): D64.9 - ANEMIA, UNSPECIFIED (13) NSTEMI (non-ST elevated myocardial infarction) Code(s): I21.4 - NON-ST ELEVATION (NSTEMI) MYOCARDIAL INFARCTION (14) GI (gastrointestinal bleed) Code(s): K92.2 - GASTROINTESTINAL HEMORRHAGE, UNSPECIFIED Assessment/Plan 1.+Influenza treated 2.Acute respiratory failure intubated refusing trach RLL INFILTERATE ON ABX AND DUO NEBS 3.ANEMIA STABLE 4.NSTEMI 5.History breast cancer, lung mass with negative bx 6.COPD, chronic with chronic hypoxemia 7.chf STABLE 8.LOWER GI BLEED stable h/h stable FU CBC IV PROTONIX BID DR KAN AWARE CC in reviewing chart and formulating care 30 min
[2016-07-03] MEDS: dilTIAZem HCL 50 MG/10 ML - 10 ML VIAL IVPUSH PRN (21:00)
[2016-07-03] MEDS: ATORVASTATIN CA 80 MG TABLET (FP) PO SCH (21:12)
[2016-07-03] MEDS ORDERED: INSULIN DETEMIR 100 UNITS/ML MDV SQ ONE (21:27)
[2016-07-03] MEDS ORDERED: dilTIAZem HCL 125 MG/25 ML - 25 ML VIAL ONE (21:43)
[2016-07-03] MEDS: INSULIN DETEMIR 100 UNITS/ML MDV SQ SCH (22:14)
[2016-07-04] MEDS: dilTIAZem HCL 60 MG TABLET (FP) PO SCH ×5 (01:21→23:53)
[2016-07-04] MEDS: MEROPENEM 1 GM in DEXTROSE 5%-WATER - 100 ML IVPB SCH ×3 (01:22→17:55)
[2016-07-04] MEDS: morphine CARPU-JECT 2 MG/1 ML DISP.SYRIN IVPUSH PRN ×3 (03:46→20:01)
[2016-07-04] MEDS: hydrALAZINE HCL 10 MG TABLET PO SCH ×3 (05:07→22:24)
[2016-07-04] MEDS: BANATROL PLUS POWDER PACKET PO SCH (05:07)
[2016-07-04 06:13] LABS: MCH 27.2 pg (25.7-33.7); MCHC 33.2 g/dl (32.0-36.0); MEAN CELL VOLUME 81.8 fl (80-96); MEAN PLT VOLUME 9.3 fl (7.5-11.1); PLATELET COUNT 142 K/MM3 (134-434); RDW 21.3 % (11.6-15.6); WHITE BLOOD COUNT 16.8 K/mm3 (4.0-10.0)
[2016-07-04] MEDS: INSULIN SLIDING SCALE (NOVOLOG) 1 VIAL SQ SCH ×4 (06:19→22:37)
[2016-07-04 06:53] LABS: CALCIUM 8.6 mg/dL (8.5-10.1); MAGNESIUM 2.3 mg/dL (1.8-2.4)
[2016-07-04 06:54] LABS: COCKROFT - GAULT 136.85; CREATININE 0.3 mg/dL (0.55-1.02); PHOSPHOROUS 3.8 mg/dL (2.5-4.9)
[2016-07-04] MEDS: dilTIAZem HCL 50 MG/10 ML - 10 ML VIAL IVPUSH PRN (07:06)
[2016-07-04 07:23] LABS: ALLENS TEST POSITIVE; ART PUNCT SITE RIGHT RADIAL; ARTERIAL BLD GAS O2 SATURATION 92.9 % (90-98.9); ARTERIAL BLOOD GAS BASE EXCESS 10.7 meq/l (-2-2); ARTERIAL BLOOD GAS HCO3 34.8 meq/L (22-26); ARTERIAL BLOOD GAS pH 7.51 (7.35-7.45); LPM/O2% 5 LPM; PT. ON O2? YES; TYPE OF O2 N/C
[2016-07-04] MEDS ORDERED: ALBUTEROL SO4 2.5/IPRATROPIUM 0.5 INH SOL 3 ML VIAL.NEB. NEB ONE (07:57)
[2016-07-04] MEDS: ALBUTEROL SO4 2.5/IPRATROPIUM 0.5 INH SOL 3 ML VIAL.NEB. NEB SCH ×4 (08:03→21:55)
--- NOTE | 2016-07-04 09:52 | PN ---
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, [employer]IT [employer]ER - Note 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: Pt self extubated on . Has been npo with MBS ordered. Diet ordered today, however, best to perform instrumental assessment to r/o silent aspiration in this pt, self extubated flollowing intubation since rapid response on 06/22, with bilateral pna. Voice is dysphonic. No overt cough with sip of water. Silent aspiration can not be r/o. MBS pending availability of nursing to accompany pt to xray. Pt is a full code. Per EMR:"She was suppose to have a PEG and tracheostomy which is is refusing" Pt is verbal. Competance? Pt's wishes? Addendum: Nursing attempted to bring pt down for MBS, but pt refused. To reassess/ attempt MBS tomorrow. Consider palliative care consult
[2016-07-04] MEDS: PANTOPRAZOLE SODIUM 40 MG/100 ML PRE-DOCKED IVPB SCH ×2 (10:00→22:24)
[2016-07-04] MEDS: CHLORHEXIDINE GLUCONATE 0.12% 15ML CUP MM SCH ×2 (10:00→22:25)
[2016-07-04] MEDS: BUDESONIDE/FORMETEROL FUMARATE 160/4.5 mcg INHALER IH SCH ×2 (10:00→22:25)
[2016-07-04] MEDS ORDERED: NICOTINE 7 MG/24 HOURS TOPICAL PATCH TD SCH (10:00)
[2016-07-04] MEDS: methylPREDNISolone NA SUCC 40 MG/1 ML VIAL IVPB SCH ×2 (10:00→22:25)
--- NOTE | 2016-07-04 11:50 | PN ---
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, Physician History of Present Illness: seen and examined today in nad. self extubated over the weekend. awake, alert, oriented currently. feeling generalized weakness. - Current Medication List Current Medications: Active Medications Acetaminophen (Tylenol -) 650 mg PO Q4H PRN PRN Reason: FEVER OR PAIN Last Admin: 06/30/16 22:25 Dose: 650 mg Albuterol/Ipratropium (Duoneb -) 1 amp NEB QIDR [facility] Last Admin: 07/04/16 08:03 Dose: 1 amp Atorvastatin Calcium (Lipitor -) 80 mg PO HS [facility] Last Admin: 07/03/16 21:12 Dose: Not Given Budesonide/Formoterol Fumarate (Symbicort 160/4.5mcg -) 2 puff IH BID [facility] Last Admin: 07/03/16 22:18 Dose: 2 puff Chlorhexidine Gluconate (Peridex -) 15 ml MM BID [facility] Last Admin: 07/03/16 22:16 Dose: 15 ml Diltiazem HCl (Cardizem Injection -) 10 mg IVPUSH Q4H PRN PRN Reason: TACHYCARDIA Last Admin: 07/04/16 07:06 Dose: 10 mg Diltiazem HCl (Cardizem -) 60 mg PO Q6HPO [facility] Last Admin: 07/04/16 06:19 Dose: Not Given Hydralazine HCl (Apresoline -) 10 mg PO TID [facility] Last Admin: 07/04/16 05:07 Dose: Not Given Meropenem 1 gm/ Dextrose 100 mls @ 100 mls/hr IVPB Q8H-IV [facility] PRN Reason: Protocol Last Admin: 07/04/16 01:22 Dose: 100 mls/hr Insulin Aspart (Novolog Vial Sliding Scale -) 1 vial SQ ACHS [facility] PRN Reason: Protocol Last Admin: 07/04/16 06:19 Dose: Not Given Insulin Detemir (Levemir Vial) 10 units SQ HS [facility] Last Admin: 07/03/16 22:14 Dose: Not Given Methylprednisolone Sodium Succinate (Solu-Medrol -) 40 mg IVPB BID [facility] Last Admin: 07/03/16 22:17 Dose: 40 mg Morphine Sulfate (Morphine Injection -) 2 mg IVPUSH Q3H PRN PRN Reason: SHORTNESS OF BREATH Last Admin: 07/04/16 07:17 Dose: 2 mg Nicotine (Nicoderm Patch -) 7 mg TD DAILY [facility] Nitroglycerin (Nitrostat -) 0.4 mg SL Q5M PRN PRN Reason: FOR CHEST PAIN Last Admin: 06/20/16 11:35 Dose: 0.4 mg Pantoprazole Sodium (Protonix 40mg Ivpb (Pre-Docked)) 40 mg IVPB BID [facility] Last Admin: 07/03/16 22:17 Dose: 40 mg - Objective Vital Signs: Vital Signs Temperature 98.3 F 07/04/16 06:00 Pulse Rate 81 07/04/16 10:00 Respiratory Rate 18 07/04/16 10:00 Blood Pressure 149/59 07/04/16 10:00 O2 Sat by Pulse Oximetry (%) 97 07/04/16 09:28 Constitutional: Yes: No Distress, Calm Eyes: Yes: Conjunctiva Clear, EOM Intact, PERRL HENT: Yes: Atraumatic, Normocephalic Neck: Yes: Supple, Trachea Midline Cardiovascular: Yes: Regular Rate and Rhythm, Murmur, S1, S2. No: Bradycardia, Tachycardia, Pulse Irregular, Bruit, JVD, Gallop, Rub, S3, S4, Varicosities Respiratory: Yes: Regular, Diminished, Rhonchi. No: Rales, Wheezes Gastrointestinal: Yes: Normal Bowel Sounds, Soft. No: Distention, Tenderness Musculoskeletal: Yes: Muscle Weakness Edema: No Peripheral Pulses WNL: Yes Peripheral Pulses: Left Doralis Pedis: 2+, Right Dorsalis Pedis: 2+ Neurological: Yes: Alert, Oriented Psychiatric: Yes: Alert, Oriented Labs: CBC, BMP 07/04/16 05:15 07/04/16 05:15 INR, PTT INR 1.02 (0.82-1.09) 06/09/16 05:05 - ....Imaging Chest X-ray: Report Reviewed, Image Reviewed EKG: Report Reviewed, Image Reviewed Other: Report Reviewed, Image Reviewed (tele-nsr, frequent self limited episodes of PSVT) Assessment/Plan Recurrent acute respiratory failure requiring re-intubation, refused trach first intubation Bilateral PNA Anemia PSVT CAD s/p NSTEMI Mild COPD REC: Now extubated Off ASA now presumed for Anemia Uptitrate cardizem to 90mg po q6h for further PSVT suppression
[2016-07-04] MEDS ORDERED: FUROSEMIDE 40 MG/4 ML INJECTABLE VIAL IVPUSH ONE (14:30)
--- NOTE | 2016-07-04 14:30 | PN ---
Teaching Attending Note Name of Resident: Griffin Bell ATTENDING PHYSICIAN STATEMENT I saw and evaluated the patient. I reviewed the resident's note and discussed the case with the resident. I agree with the resident's findings and plan as documented. SUBJECTIVE: Patient seen and examined in the ICU. Remains extubated. Awake and responsive. Mildly tachypneic at rest on 4 L NC O2. CXR: No gross change in bibasilar infiltrates OBJECTIVE: Intake & Output 07/01/16 07/02/16 07/03/16 07/04/16 23:59 23:59 23:59 23:59 Intake Total 2303 1917 750 100 Output Total 1150 1550 900 250 Balance 1153 367 -150 -150 Weight 116 lb 9 oz 116 lb 9 oz 116 lb 5 oz 116 lb 6.465 oz Last Vital Signs Temp Pulse Resp BP Pulse Ox 98.4 F 86 18 149/65 97 07/04/16 12:00 07/04/16 12:00 07/04/16 12:00 07/04/16 12:00 07/04/16 10:00 Active Medications Acetaminophen (Tylenol -) 650 mg PO Q4H PRN PRN Reason: FEVER OR PAIN Last Admin: 06/30/16 22:25 Dose: 650 mg Albuterol/Ipratropium (Duoneb -) 1 amp NEB TIDR [facility] Atorvastatin Calcium (Lipitor -) 80 mg PO HS [facility] Last Admin: 07/03/16 21:12 Dose: Not Given Budesonide/Formoterol Fumarate (Symbicort 160/4.5mcg -) 2 puff IH BID [facility] Last Admin: 07/03/16 22:18 Dose: 2 puff Chlorhexidine Gluconate (Peridex -) 15 ml MM BID [facility] Last Admin: 07/04/16 10:00 Dose: Not Given Diltiazem HCl (Cardizem Injection -) 10 mg IVPUSH Q4H PRN PRN Reason: TACHYCARDIA Last Admin: 07/04/16 07:06 Dose: 10 mg Diltiazem HCl (Cardizem -) 90 mg PO Q6HPO [facility] Furosemide (Lasix Injection -) 40 mg IVPUSH ONCE ONE Stop: 07/04/16 14:31 Furosemide (Lasix -) 40 mg PO DAILY [facility] Hydralazine HCl (Apresoline -) 10 mg PO TID [facility] Last Admin: 07/04/16 05:07 Dose: Not Given Meropenem 1 gm/ Dextrose 100 mls @ 100 mls/hr IVPB Q8H-IV [facility] PRN Reason: Protocol Last Admin: 07/04/16 10:00 Dose: 100 mls/hr Insulin Aspart (Novolog Vial Sliding Scale -) 1 vial SQ ACHS [facility] PRN Reason: Protocol Last Admin: 07/04/16 10:00 Dose: Not Given Insulin Detemir (Levemir Vial) 10 units SQ HS [facility] Last Admin: 07/03/16 22:14 Dose: Not Given Methylprednisolone Sodium Succinate (Solu-Medrol -) 40 mg IVPB BID [facility] Last Admin: 07/04/16 10:00 Dose: 40 mg Morphine Sulfate (Morphine Injection -) 2 mg IVPUSH Q3H PRN PRN Reason: SHORTNESS OF BREATH Last Admin: 07/04/16 07:17 Dose: 2 mg Nicotine (Nicoderm Patch -) 7 mg TD DAILY [facility] Last Admin: 07/04/16 10:00 Dose: Not Given Nitroglycerin (Nitrostat -) 0.4 mg SL Q5M PRN PRN Reason: FOR CHEST PAIN Last Admin: 06/20/16 11:35 Dose: 0.4 mg Pantoprazole Sodium (Protonix 40mg Ivpb (Pre-Docked)) 40 mg IVPB BID [facility] Last Admin: 07/04/16 10:00 Dose: 40 mg Gen: Awake and alert, mildly tachypneic at rest Heart: RRR Lung: scattered rhonchi Abd: soft, nontender Ext: trace edema Laboratory Results - last 24 hr 07/03/16 07/03/16 07/03/16 11:32 17:17 21:26 WBC RBC Hgb Hct MCV MCHC RDW Plt Count MPV Puncture Site ABG pH ABG pCO2 at Pt Temp ABG pO2 at Pt Temp ABG HCO3 ABG O2 Sat (Measured) ABG O2 Content ABG Base Excess Rafi Test O2 Delivery Device Oxygen Flow Rate PEEP Sodium Potassium Chloride Carbon Dioxide Anion Gap BUN Creatinine POC Glucometer 98.44382 83.72147 121.19287 Random Glucose Calcium Phosphorus Magnesium 07/04/16 07/04/16 07/04/16 05:15 05:15 05:21 WBC 16.8 H RBC 3.68 Hgb 10.0 L Hct 30.1 L MCV 81.8 MCHC 33.2 RDW 21.3 H Plt Count 142 MPV 9.3 Puncture Site ABG pH ABG pCO2 at Pt Temp ABG pO2 at Pt Temp ABG HCO3 ABG O2 Sat (Measured) ABG O2 Content ABG Base Excess Rafi Test O2 Delivery Device Oxygen Flow Rate PEEP Sodium 142 Potassium 4.6 Chloride 98 Carbon Dioxide 37 H Anion Gap 7 L BUN 30 H Creatinine 0.3 L D POC Glucometer 91.39158 Random Glucose 78 D Calcium 8.6 Phosphorus 3.8 Magnesium 2.3 07/04/16 07/04/16 07:15 10:59 WBC RBC Hgb Hct MCV MCHC RDW Plt Count MPV Puncture Site Right radial ABG pH 7.51 H ABG pCO2 at Pt Temp 44.3 ABG pO2 at Pt Temp 63.0 L ABG HCO3 34.8 H ABG O2 Sat (Measured) 92.9 ABG O2 Content 12.9 L ABG Base Excess 10.7 H Rafi Test Positive O2 Delivery Device N/c Oxygen Flow Rate 5 lpm PEEP 0.0 Sodium Potassium Chloride Carbon Dioxide Anion Gap BUN Creatinine POC Glucometer 80.84861 Random Glucose Calcium Phosphorus Magnesium ASSESSMENT AND PLAN: Acute on Chronic Hypoxic and Hypercapneic Respiratory Failure Influenza A s/p treatment Pneumonia - ?Aspiration Acute COPD Exacerbation CAD +Troponins/Acute NSTEMI h/o Breast Ca 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
[2016-07-04] MEDS ORDERED: ALPRAZolam 0.25 MG TABLET PO ONE (15:32)
--- NOTE | 2016-07-04 15:56 | PN ---
Physical Exam: SUBJECTIVE: Patient seen and examined Patient self extuabated her self on monday. states breathing is better. denies chest pain, palpitations patient has few eisodes of svt, given cardiazem 10mg iv push Patient had sips of water without any cough and without difficulty. Patient refused for MBS test. Patient is chronic smoker, she refused for nicotin patch. Patient got 2 units of blood on weekend HB dropped to 7.0 on Monday and after transfusion its 10. b/l diffuse rales. slight tachypnic. OBJECTIVE: Vital Signs Period Temp Pulse Resp BP Sys/Rasheed Pulse Ox Last 24 Hr 97 F-98.4 F 75-98 16-26 120-150/45-77 97-99 GENERAL: The patient is awake, alert, and fully oriented HEAD: Normal with no signs of trauma.. ENT:, dry moist mucous membranes. NECK: Trachea midline, full range of motion, supple. LUNGS: Breath sounds equal, diffuse rales, no wheez, increase in airation to lower lung field, tachypnic HEART: s1s2 normal. ABDOMEN: Soft, nontender, nondistended, normoactive bowel sounds, no guarding, no rebound, EXTREMITIES: 2+ pulses, warm, well-perfused, edema 1+ PSYCH: Normal mood, normal affect. SKIN: Warm, dry, Laboratory Results - last 24 hr 07/03/16 07/03/16 07/04/16 17:17 21:26 05:15 WBC 16.8 H RBC 3.68 Hgb 10.0 L Hct 30.1 L MCV 81.8 MCHC 33.2 RDW 21.3 H Plt Count 142 MPV 9.3 Puncture Site ABG pH ABG pCO2 at Pt Temp ABG pO2 at Pt Temp ABG HCO3 ABG O2 Sat (Measured) ABG O2 Content ABG Base Excess Rafi Test O2 Delivery Device Oxygen Flow Rate PEEP Sodium Potassium Chloride Carbon Dioxide Anion Gap BUN Creatinine POC Glucometer 83.42959 121.69354 Random Glucose Calcium Phosphorus Magnesium 07/04/16 07/04/16 07/04/16 05:15 05:21 07:15 WBC RBC Hgb Hct MCV MCHC RDW Plt Count MPV Puncture Site Right radial ABG pH 7.51 H ABG pCO2 at Pt Temp 44.3 ABG pO2 at Pt Temp 63.0 L ABG HCO3 34.8 H ABG O2 Sat (Measured) 92.9 ABG O2 Content 12.9 L ABG Base Excess 10.7 H Rafi Test Positive O2 Delivery Device N/c Oxygen Flow Rate 5 lpm PEEP 0.0 Sodium 142 Potassium 4.6 Chloride 98 Carbon Dioxide 37 H Anion Gap 7 L BUN 30 H Creatinine 0.3 L D POC Glucometer 91.01917 Random Glucose 78 D Calcium 8.6 Phosphorus 3.8 Magnesium 2.3 07/04/16 10:59 WBC RBC Hgb Hct MCV MCHC RDW Plt Count MPV Puncture Site ABG pH ABG pCO2 at Pt Temp ABG pO2 at Pt Temp ABG HCO3 ABG O2 Sat (Measured) ABG O2 Content ABG Base Excess Rafi Test O2 Delivery Device Oxygen Flow Rate PEEP Sodium Potassium Chloride Carbon Dioxide Anion Gap BUN Creatinine POC Glucometer 80.31052 Random Glucose Calcium Phosphorus Magnesium Active Medications Generic Name Dose Route Start Last Admin Trade Name Freq PRN Reason Stop Dose Admin Acetaminophen 650 mg 06/15/16 19:22 06/30/16 22:25 Tylenol - PO 650 mg Q4H PRN Administration FEVER OR PAIN Albuterol/Ipratropium 1 amp 07/04/16 14:00 07/04/16 15:20 Duoneb - NEB Not Given TIDR [facility] Atorvastatin Calcium 80 mg 06/15/16 22:00 07/03/16 21:12 Lipitor - PO Not Given HS [facility] Budesonide/Formoterol Fumarate 2 puff 06/21/16 12:30 07/03/16 22:18 Symbicort 160/4.5mcg - IH 2 puff BID [facility] Administration Chlorhexidine Gluconate 15 ml 06/24/16 22:00 07/04/16 10:00 Peridex - MM Not Given BID [facility] Diltiazem HCl 10 mg 06/25/16 09:08 07/04/16 07:06 Cardizem Injection - IVPUSH 10 mg Q4H PRN Administration TACHYCARDIA Diltiazem HCl 90 mg 07/04/16 12:00 Cardizem - PO Q6HPO [facility] Furosemide 40 mg 07/05/16 10:00 Lasix - PO DAILY [facility] Hydralazine HCl 10 mg 06/15/16 22:00 07/04/16 05:07 Apresoline - PO Not Given TID [facility] Meropenem 1 gm/ Dextrose 100 mls @ 100 mls/hr 06/30/16 17:00 07/04/16 10:00 IVPB 100 mls/hr Q8H-IV [facility] Administration Protocol Insulin Aspart 1 vial 06/25/16 22:00 07/04/16 10:00 Novolog Vial Sliding Scale - SQ Not Given ACHS [facility] Protocol Insulin Detemir 10 units 06/26/16 22:00 07/03/16 22:14 Levemir Vial SQ Not Given HS [facility] Methylprednisolone Sodium Succinate 40 mg 07/01/16 22:00 07/04/16 10:00 Solu-Medrol - IVPB 40 mg BID [facility] Administration Morphine Sulfate 2 mg 07/02/16 12:00 07/04/16 07:17 Morphine Injection - IVPUSH 2 mg Q3H PRN Administration SHORTNESS OF BREATH Nicotine 7 mg 07/04/16 10:00 07/04/16 10:00 Nicoderm Patch - TD Not Given DAILY [facility] Nitroglycerin 0.4 mg 06/20/16 11:09 06/20/16 11:35 Nitrostat - SL 0.4 mg Q5M PRN Administration FOR CHEST PAIN Pantoprazole Sodium 40 mg 07/02/16 22:00 07/04/16 10:00 Protonix 40mg Ivpb (Pre-Docked) IVPB 40 mg BID [facility] Administration ASSESSMENT/PLAN: acute hypercapneic respiratory failure due to aspiration pneumonia self extubated, on 5 L NC oxygen, reduced to 4L keep spo2 over 90 Nebulizers [facility] and PRN on solumedrom 40 q12h on meropenem day 5 sputum : psudomonas, urine citrobacter koseri abg reviewed ID on case cxr reviewd: improved still congested started on lasix 40 po daily Trop i elevated could be stress induce trending down hyperkalemia resolved diarrhoea improved c diff toxin negative Shock improved could be from aspiration pneumonia altered mental status could be from metabolic encephalopathy improved H/O HTN/ afib continue hydralazine 10 tid on cardiazem 90mg q6h asprin on hold in view of lower gi bleed h/o copd on duoneb on solumedrol 40 bid DM on sliding scale novalog monitor bgm influenza positive completed a course of tamiflue Microcytic anemia hb 10 after transfusion FEN electrolyet follow in am feed after speech and swallow evaluation. Prophylaxis DVT: scd b/l GI: PPI iv bid dispo : admit in icu Visit type - Emergency Visit Emergency Visit: Yes ED Registration Date: 05/30/16 Care time: The patient presented to the Emergency Department on the above date and was hospitalized for further evaluation of their emergent condition. - New Patient This patient is new to me today: No - Critical Care Critical Care patient: Yes Total Critical Care Time (in minutes): 45 Critical Care Statement: The care of this patient involved high complexity decision making to prevent further life threatening deterioration of the patient 's condition and/or to evalute & treat vital organ system(s) failure or risk of failure.
[2016-07-04] MEDS ORDERED: FUROSEMIDE 40 MG TABLET (FP) PO ONE (16:59)
--- NOTE | 2016-07-04 17:59 | PN ---
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, Physician History of Present Illness: on face mask alert talking - Current Medication List Current Medications: Active Medications Acetaminophen (Tylenol -) 650 mg PO Q4H PRN PRN Reason: FEVER OR PAIN Last Admin: 06/30/16 22:25 Dose: 650 mg Albuterol/Ipratropium (Duoneb -) 1 amp NEB TIDR [facility] Last Admin: 07/04/16 15:20 Dose: Not Given Atorvastatin Calcium (Lipitor -) 80 mg PO HS [facility] Last Admin: 07/03/16 21:12 Dose: Not Given Budesonide/Formoterol Fumarate (Symbicort 160/4.5mcg -) 2 puff IH BID [facility] Last Admin: 07/03/16 22:18 Dose: 2 puff Chlorhexidine Gluconate (Peridex -) 15 ml MM BID [facility] Last Admin: 07/04/16 10:00 Dose: Not Given Diltiazem HCl (Cardizem Injection -) 10 mg IVPUSH Q4H PRN PRN Reason: TACHYCARDIA Last Admin: 07/04/16 07:06 Dose: 10 mg Diltiazem HCl (Cardizem -) 90 mg PO Q6HPO [facility] Furosemide (Lasix -) 40 mg PO DAILY [facility] Hydralazine HCl (Apresoline -) 10 mg PO TID [facility] Last Admin: 07/04/16 05:07 Dose: Not Given Meropenem 1 gm/ Dextrose 100 mls @ 100 mls/hr IVPB Q8H-IV [facility] PRN Reason: Protocol Last Admin: 07/04/16 10:00 Dose: 100 mls/hr Insulin Aspart (Novolog Vial Sliding Scale -) 1 vial SQ ACHS [facility] PRN Reason: Protocol Last Admin: 07/04/16 10:00 Dose: Not Given Insulin Detemir (Levemir Vial) 10 units SQ HS [facility] Last Admin: 07/03/16 22:14 Dose: Not Given Methylprednisolone Sodium Succinate (Solu-Medrol -) 40 mg IVPB BID [facility] Last Admin: 07/04/16 10:00 Dose: 40 mg Morphine Sulfate (Morphine Injection -) 2 mg IVPUSH Q3H PRN PRN Reason: SHORTNESS OF BREATH Last Admin: 07/04/16 07:17 Dose: 2 mg Nitroglycerin (Nitrostat -) 0.4 mg SL Q5M PRN PRN Reason: FOR CHEST PAIN Last Admin: 06/20/16 11:35 Dose: 0.4 mg Pantoprazole Sodium (Protonix 40mg Ivpb (Pre-Docked)) 40 mg IVPB BID [facility] Last Admin: 07/04/16 10:00 Dose: 40 mg - Objective Vital Signs: Vital Signs Temperature 98.4 F 07/04/16 14:00 Pulse Rate 79 07/04/16 14:00 Respiratory Rate 18 07/04/16 14:00 Blood Pressure 139/59 07/04/16 14:00 O2 Sat by Pulse Oximetry (%) 97 07/04/16 10:00 Constitutional: Yes: Calm HENT: Yes: Atraumatic Neck: Yes: Supple Cardiovascular: Yes: Regular Rate and Rhythm Respiratory: Yes: Rhonchi Gastrointestinal: Yes: Normal Bowel Sounds Edema: LLE: Trace, RLE: Trace Neurological: Yes: Alert, Oriented Labs: CBC, BMP 07/04/16 05:15 07/04/16 05:15 INR, PTT INR 1.02 (0.82-1.09) 06/09/16 05:05 Problem List - Problems (1) Respiratory failure Assessment/Plan: on bipap apiration pna on abx on steroids Code(s): J96.90 - RESPIRATORY FAILURE, UNSP, UNSP W HYPOXIA OR HYPERCAPNIA Qualifiers: Chronicity: acute Respiratory failure complication: hypoxia and hypercapnia Qualified Code(s): J96.01 - Acute respiratory failure with hypoxia (2) Chronic respiratory failure with hypoxia Assessment/Plan: duo nebs steroids Code(s): J96.11 - CHRONIC RESPIRATORY FAILURE WITH HYPOXIA (3) CAD (coronary artery disease) Assessment/Plan: on meds follow up labs continue current meds Code(s): I25.10 - ATHSCL HEART DISEASE OF [place] CORONARY ARTERY W/O ANG PCTRS (4) COPD (chronic obstructive pulmonary disease) Assessment/Plan: on meds stable steroids duo nebs Code(s): J44.9 - CHRONIC OBSTRUCTIVE PULMONARY DISEASE, UNSPECIFIED (5) Chronic diastolic CHF (congestive heart failure) Assessment/Plan: stable on meds Code(s): I50.32 - CHRONIC DIASTOLIC (CONGESTIVE) HEART FAILURE (6) HLD (hyperlipidemia) Assessment/Plan: on meds Code(s): E78.5 - HYPERLIPIDEMIA, UNSPECIFIED Qualifiers: Hyperlipidemia type: unspecified Qualified Code(s): E78.5 - Hyperlipidemia, unspecified (7) HTN (hypertension) Assessment/Plan: on meds stable Code(s): I10 - ESSENTIAL (PRIMARY) HYPERTENSION Qualifiers: Hypertension type: essential hypertension Qualified Code(s): I10 - Essential (primary) hypertension (8) History of cigarette smoking Code(s): Z87.891 - PERSONAL HISTORY OF NICOTINE DEPENDENCE (9) Influenza Code(s): J11.1 - FLU DUE TO UNIDENTIFIED INFLUENZA VIRUS W OTH RESP MANIFEST (10) Acute on chronic respiratory failure with hypoxia and hypercapnia Code(s): J96.21 - ACUTE AND CHRONIC RESPIRATORY FAILURE WITH HYPOXIA J96.22 - ACUTE AND CHRONIC RESPIRATORY FAILURE WITH HYPERCAPNIA (11) History of PSVT (paroxysmal supraventricular tachycardia) Code(s): Z86.79 - PERSONAL HISTORY OF OTHER DISEASES OF THE CIRCULATORY SYSTEM (12) Anemia Code(s): D64.9 - ANEMIA, UNSPECIFIED (13) NSTEMI (non-ST elevated myocardial infarction) Code(s): I21.4 - NON-ST ELEVATION (NSTEMI) MYOCARDIAL INFARCTION (14) GI (gastrointestinal bleed) Code(s): K92.2 - GASTROINTESTINAL HEMORRHAGE, UNSPECIFIED Assessment/Plan 1.+Influenza treated 2.Acute respiratory failure intubated refusing trach RLL INFILTERATE ON ABX AND DUO NEBS 3.ANEMIA STABLE 4.NSTEMI 5.History breast cancer, lung mass with negative bx 6.COPD, chronic with chronic hypoxemia 7.chf STABLE 8.LOWER GI BLEED...stable s/p blood transfusion FU CBC IV PROTONIX BID CC in reviewing chart and formulating care 30 min
--- NOTE | 2016-07-04 19:24 | PN ---
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, Physician History of Present Illness: stable refused speech and swallow patient comfortable still on venti mask hoarse voice - Current Medication List Current Medications: Active Medications Acetaminophen (Tylenol -) 650 mg PO Q4H PRN PRN Reason: FEVER OR PAIN Last Admin: 06/30/16 22:25 Dose: 650 mg Albuterol/Ipratropium (Duoneb -) 1 amp NEB TIDR REPLACED BY [facility] Last Admin: 07/04/16 15:20 Dose: Not Given Atorvastatin Calcium (Lipitor -) 80 mg PO HS REPLACED BY [facility] Last Admin: 07/03/16 21:12 Dose: Not Given Budesonide/Formoterol Fumarate (Symbicort 160/4.5mcg -) 2 puff IH BID REPLACED BY [facility] Last Admin: 07/04/16 10:00 Dose: 2 puff Chlorhexidine Gluconate (Peridex -) 15 ml MM BID REPLACED BY [facility] Last Admin: 07/04/16 10:00 Dose: Not Given Diltiazem HCl (Cardizem Injection -) 10 mg IVPUSH Q4H PRN PRN Reason: TACHYCARDIA Last Admin: 07/04/16 07:06 Dose: 10 mg Diltiazem HCl (Cardizem -) 90 mg PO Q6HPO REPLACED BY [facility] Last Admin: 07/04/16 17:54 Dose: 90 mg Furosemide (Lasix -) 40 mg PO DAILY REPLACED BY [facility] Hydralazine HCl (Apresoline -) 10 mg PO TID REPLACED BY [facility] Last Admin: 07/04/16 14:00 Dose: Not Given Meropenem 1 gm/ Dextrose 100 mls @ 100 mls/hr IVPB Q8H-IV [facility] PRN Reason: Protocol Last Admin: 07/04/16 17:55 Dose: Not Given Insulin Aspart (Novolog Vial Sliding Scale -) 1 vial SQ ACHS REPLACED BY [facility] PRN Reason: Protocol Last Admin: 07/04/16 16:30 Dose: Not Given Insulin Detemir (Levemir Vial) 10 units SQ HS REPLACED BY [facility] Last Admin: 07/03/16 22:14 Dose: Not Given Methylprednisolone Sodium Succinate (Solu-Medrol -) 40 mg IVPB BID REPLACED BY [facility] Last Admin: 07/04/16 10:00 Dose: 40 mg Morphine Sulfate (Morphine Injection -) 2 mg IVPUSH Q3H PRN PRN Reason: SHORTNESS OF BREATH Last Admin: 07/04/16 07:17 Dose: 2 mg Nitroglycerin (Nitrostat -) 0.4 mg SL Q5M PRN PRN Reason: FOR CHEST PAIN Last Admin: 06/20/16 11:35 Dose: 0.4 mg Pantoprazole Sodium (Protonix 40mg Ivpb (Pre-Docked)) 40 mg IVPB BID [facility] Last Admin: 07/04/16 10:00 Dose: 40 mg - Objective Vital Signs: Vital Signs Temperature 98.4 F 07/04/16 14:00 Pulse Rate 85 07/04/16 18:00 Respiratory Rate 22 07/04/16 18:00 Blood Pressure 144/58 07/04/16 18:00 O2 Sat by Pulse Oximetry (%) 97 07/04/16 10:00 Constitutional: Yes: Calm, Anxious Cardiovascular: Yes: Regular Rate and Rhythm Respiratory: Yes: Regular, CTA Bilaterally Gastrointestinal: Yes: Normal Bowel Sounds, Soft Musculoskeletal: Yes: WNL Extremities: Yes: WNL Neurological: Yes: Alert, Oriented Psychiatric: Yes: Alert, Oriented Labs: CBC, BMP 07/04/16 05:15 07/04/16 05:15 INR, PTT INR 1.02 (0.82-1.09) 06/09/16 05:05 - ....Imaging Chest X-ray: Report Reviewed, Image Reviewed Assessment/Plan Problem List - Problems (1) Aortic stenosis Code(s): I35.0 - NONRHEUMATIC AORTIC (VALVE) STENOSIS (2) History of PSVT (paroxysmal supraventricular tachycardia) Code(s): Z86.79 - PERSONAL HISTORY OF OTHER DISEASES OF THE CIRCULATORY SYSTEM (3) NSTEMI (non-ST elevated myocardial infarction) Code(s): I21.4 - NON-ST ELEVATION (NSTEMI) MYOCARDIAL INFARCTION (4) Respiratory failure Code(s): J96.90 - RESPIRATORY FAILURE, UNSP, UNSP W HYPOXIA OR HYPERCAPNIA Qualifiers: Chronicity: acute Respiratory failure complication: hypoxia and hypercapnia Qualified Code(s): J96.01 - Acute respiratory failure with hypoxia (5) Pulmonary hypertension Code(s): I27.2 - OTHER SECONDARY PULMONARY HYPERTENSION (6) Pulmonary nodules Code(s): R91.8 - OTHER NONSPECIFIC ABNORMAL FINDING OF LUNG FIELD (7) COPD (chronic obstructive pulmonary disease) Code(s): J44.9 - CHRONIC OBSTRUCTIVE PULMONARY DISEASE, UNSPECIFIED (8) History of cigarette smoking Code(s): Z87.891 - PERSONAL HISTORY OF NICOTINE DEPENDENCE (9) Acute on chronic respiratory failure with hypoxia and hypercapnia Code(s): J96.21 - ACUTE AND CHRONIC RESPIRATORY FAILURE WITH HYPOXIA J96.22 - ACUTE AND CHRONIC RESPIRATORY FAILURE WITH HYPERCAPNIAEPENDENCE +Troponins/Acute NSTEMI Lactic Acidosis h/o Breast Ca 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
[2016-07-04] MEDS ORDERED: morphine CARPU-JECT 2 MG/1 ML DISP.SYRIN IVPUSH PRN (21:06)
[2016-07-04] MEDS: ATORVASTATIN CA 80 MG TABLET (FP) PO SCH (22:24)
[2016-07-04] MEDS ORDERED: INSULIN DETEMIR 100 UNITS/ML MDV SQ SCH (22:34)
[2016-07-05] MEDS: dilTIAZem HCL 60 MG TABLET (FP) PO SCH ×4 (00:47→17:00)
[2016-07-05] MEDS: MEROPENEM 1 GM in DEXTROSE 5%-WATER - 100 ML IVPB SCH ×3 (01:06→17:01)
[2016-07-05] MEDS ORDERED: PT OWN MED DRAWER 7, Y5N ONE ×3 (01:13→21:16)
[2016-07-05] MEDS: ALBUTEROL SO4 2.5/IPRATROPIUM 0.5 INH SOL 3 ML VIAL.NEB. NEB SCH ×3 (05:55→22:25)
[2016-07-05] MEDS: hydrALAZINE HCL 10 MG TABLET PO SCH ×4 (06:25→22:15)
--- NOTE | 2016-07-05 08:31 | PN ---
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, Physician Chief Complaint: remains extubated TELE: NSR, short run NSVT; her usual self limited PSVT - Current Medication List Current Medications: Active Medications Acetaminophen (Tylenol -) 650 mg PO Q4H PRN PRN Reason: FEVER OR PAIN Last Admin: 06/30/16 22:25 Dose: 650 mg Albuterol/Ipratropium (Duoneb -) 1 amp NEB TIDR [facility] Last Admin: 07/05/16 05:55 Dose: 1 amp Atorvastatin Calcium (Lipitor -) 80 mg PO HS [facility] Last Admin: 07/04/16 22:24 Dose: 80 mg Budesonide/Formoterol Fumarate (Symbicort 160/4.5mcg -) 2 puff IH BID [facility] Last Admin: 07/04/16 22:25 Dose: Not Given Chlorhexidine Gluconate (Peridex -) 15 ml MM BID [facility] Last Admin: 07/04/16 22:25 Dose: Not Given Diltiazem HCl (Cardizem Injection -) 10 mg IVPUSH Q4H PRN PRN Reason: TACHYCARDIA Last Admin: 07/04/16 07:06 Dose: 10 mg Diltiazem HCl (Cardizem -) 90 mg PO Q6HPO [facility] Last Admin: 07/05/16 06:26 Dose: 90 mg Furosemide (Lasix -) 40 mg PO DAILY [facility] Hydralazine HCl (Apresoline -) 10 mg PO TID [facility] Last Admin: 07/05/16 06:25 Dose: 10 mg Meropenem 1 gm/ Dextrose 100 mls @ 100 mls/hr IVPB Q8H-IV [facility] PRN Reason: Protocol Last Admin: 07/05/16 01:06 Dose: 100 mls/hr Insulin Aspart (Novolog Vial Sliding Scale -) 1 vial SQ ACHS [facility] PRN Reason: Protocol Last Admin: 07/04/16 22:37 Dose: 2 units Insulin Detemir (Levemir Vial) 5 units SQ HS [facility] Last Admin: 07/04/16 22:49 Dose: 5 units Methylprednisolone Sodium Succinate (Solu-Medrol -) 40 mg IVPB BID [facility] Last Admin: 07/04/16 22:25 Dose: 40 mg Morphine Sulfate (Morphine Injection -) 2 mg IVPUSH Q3H PRN PRN Reason: SHORTNESS OF BREATH Last Admin: 07/04/16 20:01 Dose: 2 mg Morphine Sulfate (Morphine Injection -) 2 mg IVPUSH Q3H PRN PRN Reason: PAIN Last Admin: 07/05/16 02:10 Dose: 2 mg Nitroglycerin (Nitrostat -) 0.4 mg SL Q5M PRN PRN Reason: FOR CHEST PAIN Last Admin: 06/20/16 11:35 Dose: 0.4 mg Pantoprazole Sodium (Protonix 40mg Ivpb (Pre-Docked)) 40 mg IVPB BID [facility] Last Admin: 07/04/16 22:24 Dose: 40 mg - Objective Vital Signs: Vital Signs Temperature 97.6 F 07/05/16 06:00 Pulse Rate 84 07/05/16 08:00 Respiratory Rate 16 07/05/16 08:00 Blood Pressure 123/55 07/05/16 08:00 O2 Sat by Pulse Oximetry (%) 97 07/05/16 08:00 Constitutional: Yes: No Distress Cardiovascular: Yes: Regular Rate and Rhythm Respiratory: Yes: Other (no wheezing) Gastrointestinal: Yes: Soft Edema: No (venodynes) Neurological: Yes: Alert Labs: CBC, BMP 07/04/16 05:15 07/04/16 05:15 INR, PTT INR 1.02 (0.82-1.09) 06/09/16 05:05 Laboratory Tests 07/04/16 07/04/16 05:15 05:15 WBC 16.8 H Hct 30.1 L Plt Count 142 Sodium 142 Potassium 4.6 Creatinine 0.3 L D - ....Imaging EKG: Image Reviewed Assessment/Plan Assessment/Plan Recurrent acute respiratory failure requiring re-intubation, refused trach first intubation Bilateral PNA Anemia PSVT CAD s/p NSTEMI Mild COPD REC: Remains extubated Off ASA now, due to anemia Cont. Cardizem 90mg po q6h for PSVT suppression
[2016-07-05 08:43] LABS: BASOPHIL 0.4 % (0-2.0); EOSINOPHIL 0.1 % (0-4.5); MCH 26.3 pg (25.7-33.7); MCHC 31.2 g/dl (32.0-36.0); MEAN CELL VOLUME 84.2 fl (80-96); MEAN PLT VOLUME 9.4 fl (7.5-11.1); NEUTROPHILS 95.1 % (42.8-82.8); PLATELET COUNT 125 K/MM3 (134-434); RDW 21.2 % (11.6-15.6); WHITE BLOOD COUNT 16.6 K/mm3 (4.0-10.0)
[2016-07-05 09:09] LABS: CALCIUM 8.4 mg/dL (8.5-10.1); COCKROFT - GAULT 127.5; CREATININE 0.3 mg/dL (0.55-1.02)
[2016-07-05] MEDS: PANTOPRAZOLE SODIUM 40 MG/100 ML PRE-DOCKED IVPB SCH (09:20)
[2016-07-05] MEDS: BUDESONIDE/FORMETEROL FUMARATE 160/4.5 mcg INHALER IH SCH ×2 (09:20→22:14)
[2016-07-05] MEDS: methylPREDNISolone NA SUCC 40 MG/1 ML VIAL IVPB SCH (09:20)
[2016-07-05] MEDS: CHLORHEXIDINE GLUCONATE 0.12% 15ML CUP MM SCH ×2 (09:20→22:14)
[2016-07-05] MEDS: INSULIN SLIDING SCALE (NOVOLOG) 1 VIAL SQ SCH ×4 (09:25→22:13)
[2016-07-05] MEDS ORDERED: FUROSEMIDE 40 MG TABLET (FP) PO SCH (10:00)
--- NOTE | 2016-07-05 10:51 | PN ---
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 Pt vague, unable to describe what's bothering her. PO trials initiated. Swallowing reassessed. Dry cough related to PO intake or not? CXR results pending. Selected Entries 07/04/16 07/04/16 07/04/16 02:00 06:00 12:00 Temperature 97.6 F 98.3 F 98.4 F 07/04/16 07/04/16 07/05/16 14:00 22:00 02:00 Temperature 98.4 F 97.2 F L 97.8 F 07/05/16 06:00 Temperature 97.6 F Laboratory Tests 07/02/16 07/03/16 07/04/16 05:10 05:15 05:15 WBC 20.8 H 21.1 H 16.8 H 07/05/16 08:10 WBC 16.6 H Pt is confused with impaired memory and insight. MBS if pt agrees vs continued puree/nectar, monitoring tolerance? Pt is a full code. Consider palliative care regarding pt's wishes.
--- NOTE | 2016-07-05 14:05 | PN ---
Teaching Attending Note Name of Resident: Griffin Bell ATTENDING PHYSICIAN STATEMENT I saw and evaluated the patient. I reviewed the resident's note and discussed the case with the resident. I agree with the resident's findings and plan as documented. SUBJECTIVE: Patient seen and examined in the ICU. Remains extubated. Awake and responsive. Required NIPPV overnight due to increased SOB/WOB. Intake & Output 07/02/16 07/03/16 07/04/16 07/05/16 23:59 23:59 23:59 23:59 Intake Total 1917 750 350 100 Output Total 8294 339 3107 1800 Balance 367 150 -5900 -1700 Weight 116 lb 9 oz 116 lb 5 oz 116 lb 6.465 oz 108 lb 11.006 oz Last Vital Signs Temp Pulse Resp BP Pulse Ox 97.8 F 84 26 H 116/57 93 L 07/05/16 13:18 07/05/16 13:18 07/05/16 13:18 07/05/16 13:18 07/05/16 13:18 Active Medications Acetaminophen (Tylenol -) 650 mg PO Q4H PRN PRN Reason: FEVER OR PAIN Last Admin: 06/30/16 22:25 Dose: 650 mg Albuterol/Ipratropium (Duoneb -) 1 amp NEB TIDR [facility] Last Admin: 07/05/16 05:55 Dose: 1 amp Atorvastatin Calcium (Lipitor -) 80 mg PO HS [facility] Last Admin: 07/04/16 22:24 Dose: 80 mg Budesonide/Formoterol Fumarate (Symbicort 160/4.5mcg -) 2 puff IH BID [facility] Last Admin: 07/05/16 09:20 Dose: 2 puff Chlorhexidine Gluconate (Peridex -) 15 ml MM BID [facility] Last Admin: 07/05/16 09:20 Dose: Not Given Diltiazem HCl (Cardizem Injection -) 10 mg IVPUSH Q4H PRN PRN Reason: TACHYCARDIA Last Admin: 07/04/16 07:06 Dose: 10 mg Diltiazem HCl (Cardizem -) 90 mg PO Q6HPO [facility] Last Admin: 07/05/16 11:02 Dose: 90 mg Furosemide (Lasix -) 40 mg PO DAILY [facility] Last Admin: 07/05/16 09:19 Dose: 40 mg Hydralazine HCl (Apresoline -) 10 mg PO TID [facility] Last Admin: 07/05/16 06:25 Dose: 10 mg Meropenem 1 gm/ Dextrose 100 mls @ 100 mls/hr IVPB Q8H-IV [facility] PRN Reason: Protocol Last Admin: 07/05/16 09:19 Dose: Not Given Insulin Aspart (Novolog Vial Sliding Scale -) 1 vial SQ ACHS [facility] PRN Reason: Protocol Last Admin: 07/05/16 10:57 Dose: 2 units Insulin Detemir (Levemir Vial) 5 units SQ HS [facility] Last Admin: 07/04/16 22:49 Dose: 5 units Morphine Sulfate (Morphine Injection -) 2 mg IVPUSH Q3H PRN PRN Reason: PAIN Last Admin: 07/05/16 02:10 Dose: 2 mg Nitroglycerin (Nitrostat -) 0.4 mg SL Q5M PRN PRN Reason: FOR CHEST PAIN Last Admin: 06/20/16 11:35 Dose: 0.4 mg Pantoprazole Sodium (Protonix -) 40 mg PO BID [facility] Prednisone (Deltasone -) 20 mg PO BID [facility] Gen: Awake and alert, mildly tachypneic at rest Heart: RRR Lung: scattered rhonchi Abd: soft, nontender Ext: trace edema Laboratory Results - last 24 hr 07/04/16 07/04/16 07/05/16 17:14 22:31 05:58 WBC RBC Hgb Hct MCV MCHC RDW Plt Count MPV Neutrophils % Lymphocytes % Monocytes % Eosinophils % Basophils % Sodium Potassium Chloride Carbon Dioxide Anion Gap BUN Creatinine POC Glucometer 102.60169 128.94238 115.11147 Random Glucose Calcium 07/05/16 07/05/16 07/05/16 08:10 08:10 10:54 WBC 16.6 H RBC 3.55 L Hgb 9.3 L Hct 29.8 L MCV 84.2 MCHC 31.2 L RDW 21.2 H Plt Count 125 L MPV 9.4 Neutrophils % 95.1 H Lymphocytes % 2.8 L D Monocytes % 1.6 L Eosinophils % 0.1 Basophils % 0.4 D Sodium 139 Potassium 3.9 Chloride 97 L Carbon Dioxide 34 H Anion Gap 8 BUN 23 H D Creatinine 0.3 L POC Glucometer 120.62888 Random Glucose 76 Calcium 8.4 L ASSESSMENT AND PLAN: Acute on Chronic Hypoxic and Hypercapneic Respiratory Failure Influenza A s/p treatment Pneumonia - ?Aspiration Acute COPD Exacerbation CAD +Troponins/Acute NSTEMI h/o Breast Ca 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
--- NOTE | 2016-07-05 14:39 | PN ---
Physical Exam: SUBJECTIVE: Patient seen and examined patient was on bipap overnight. patient feels better. patient denies for swallow evaluation. BUt Patient ate her feed. Patient also refused for Iv access. her Iv solumedrol changed to prednisone 20 bid started on po protonix Patient denies chest pain, sob, palpitations. OBJECTIVE: Vital Signs Period Temp Pulse Resp BP Sys/Rasheed Pulse Ox Last 24 Hr 97.2 F-97.8 F 70-86 16-26 116-146/45-73 93-99 GENERAL: The patient is awake, alert, and fully oriented HEAD: Normal with no signs of trauma.. ENT:, dry mucous membranes. NECK: Trachea midline, full range of motion, supple. LUNGS: Breath sounds equal, diffuse rales, no wheez, increase in airation HEART: s1s2 normal. ABDOMEN: Soft, nontender, nondistended, normoactive bowel sounds, no guarding, no rebound, EXTREMITIES: 2+ pulses, warm, well-perfused, edema 1+ PSYCH: Normal mood, normal affect. SKIN: Warm, dry, Laboratory Results - last 24 hr 07/04/16 07/04/16 07/05/16 17:14 22:31 05:58 WBC RBC Hgb Hct MCV MCHC RDW Plt Count MPV Neutrophils % Lymphocytes % Monocytes % Eosinophils % Basophils % Sodium Potassium Chloride Carbon Dioxide Anion Gap BUN Creatinine POC Glucometer 102.87688 128.28862 115.29022 Random Glucose Calcium 07/05/16 07/05/16 07/05/16 08:10 08:10 10:54 WBC 16.6 H RBC 3.55 L Hgb 9.3 L Hct 29.8 L MCV 84.2 MCHC 31.2 L RDW 21.2 H Plt Count 125 L MPV 9.4 Neutrophils % 95.1 H Lymphocytes % 2.8 L D Monocytes % 1.6 L Eosinophils % 0.1 Basophils % 0.4 D Sodium 139 Potassium 3.9 Chloride 97 L Carbon Dioxide 34 H Anion Gap 8 BUN 23 H D Creatinine 0.3 L POC Glucometer 120.82903 Random Glucose 76 Calcium 8.4 L Active Medications Generic Name Dose Route Start Last Admin Trade Name Freq PRN Reason Stop Dose Admin Acetaminophen 650 mg 06/15/16 19:22 06/30/16 22:25 Tylenol - PO 650 mg Q4H PRN Administration FEVER OR PAIN Albuterol/Ipratropium 1 amp 07/04/16 14:00 07/05/16 05:55 Duoneb - NEB 1 amp TIDR [facility] Administration Atorvastatin Calcium 80 mg 06/15/16 22:00 07/04/16 22:24 Lipitor - PO 80 mg HS [facility] Administration Budesonide/Formoterol Fumarate 2 puff 06/21/16 12:30 07/05/16 09:20 Symbicort 160/4.5mcg - IH 2 puff BID [facility] Administration Chlorhexidine Gluconate 15 ml 06/24/16 22:00 07/05/16 09:20 Peridex - MM Not Given BID [facility] Diltiazem HCl 10 mg 06/25/16 09:08 07/04/16 07:06 Cardizem Injection - IVPUSH 10 mg Q4H PRN Administration TACHYCARDIA Diltiazem HCl 90 mg 07/04/16 12:00 07/05/16 11:02 Cardizem - PO 90 mg Q6HPO [facility] Administration Furosemide 40 mg 07/05/16 10:00 07/05/16 09:19 Lasix - PO 40 mg DAILY [facility] Administration Hydralazine HCl 10 mg 06/15/16 22:00 07/05/16 06:25 Apresoline - PO 10 mg TID [facility] Administration Meropenem 1 gm/ Dextrose 100 mls @ 100 mls/hr 06/30/16 17:00 07/05/16 09:19 IVPB Not Given Q8H-IV [facility] Protocol Insulin Aspart 1 vial 06/25/16 22:00 07/05/16 10:57 Novolog Vial Sliding Scale - SQ 2 units ACHS [facility] Administration Protocol Insulin Detemir 5 units 07/04/16 22:34 07/04/16 22:49 Levemir Vial SQ 5 units HS [facility] Administration Morphine Sulfate 2 mg 07/04/16 21:06 07/05/16 02:10 Morphine Injection - IVPUSH 2 mg Q3H PRN Administration PAIN Nitroglycerin 0.4 mg 06/20/16 11:09 06/20/16 11:35 Nitrostat - SL 0.4 mg Q5M PRN Administration FOR CHEST PAIN Pantoprazole Sodium 40 mg 07/05/16 12:30 Protonix - PO BID [facility] Prednisone 20 mg 07/05/16 12:30 Deltasone - PO BID [facility] ASSESSMENT/PLAN: acute hypercapneic respiratory failure due to aspiration pneumonia self extubated on monday, on 3 L NC oxygen, keep spo2 over 90 Nebulizers YE[facility] and PRN on prednisone 20 bid on meropenem day 6 sputum : psudomonas, urine citrobacter koseri ID on case cxr reviewd: improved still congested on lasix 40 po daily Trop i elevated could be stress induce trending down hyperkalemia resolved diarrhoea improved c diff toxin negative Shock improved could be from aspiration pneumonia altered mental status could be from metabolic encephalopathy improved H/O HTN/ afib continue hydralazine 10 tid on cardiazem 90mg q6h asprin on hold in view of lower gi bleed h/o copd on duoneb onprednisone 20mg bid DM on sliding scale novalog monitor bgm influenza positive completed a course of tamiflue Microcytic anemia hb 9.3 FEN electrolyet follow in am patient on dysphagia puree Prophylaxis DVT: scd b/l GI: PPI iv bid dispo : transfer to tele Visit type - Emergency Visit Emergency Visit: Yes ED Registration Date: 05/30/16 Care time: The patient presented to the Emergency Department on the above date and was hospitalized for further evaluation of their emergent condition. - New Patient This patient is new to me today: No - Critical Care Critical Care patient: Yes Total Critical Care Time (in minutes): 45 Critical Care Statement: The care of this patient involved high complexity decision making to prevent further life threatening deterioration of the patient 's condition and/or to evalute & treat vital organ system(s) failure or risk of failure.
[2016-07-05] MEDS ORDERED: ALPRAZolam 0.25 MG TABLET PO ONE (15:29)
[2016-07-05] MEDS: predniSONE 20 MG TABLET (UD) PO SCH ×3 (15:29→22:15)
[2016-07-05] MEDS: PANTOPRAZOLE 40 MG TABLET (FP) PO SCH ×2 (15:29→22:14)
--- NOTE | 2016-07-05 16:15 | PN ---
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, Physician History of Present Illness: on face mask alert talking - Current Medication List Current Medications: Active Medications Acetaminophen (Tylenol -) 650 mg PO Q4H PRN PRN Reason: FEVER OR PAIN Last Admin: 06/30/16 22:25 Dose: 650 mg Albuterol/Ipratropium (Duoneb -) 1 amp NEB TIDR [facility] Last Admin: 07/05/16 14:35 Dose: 1 amp Atorvastatin Calcium (Lipitor -) 80 mg PO HS [facility] Last Admin: 07/04/16 22:24 Dose: 80 mg Budesonide/Formoterol Fumarate (Symbicort 160/4.5mcg -) 2 puff IH BID [facility] Last Admin: 07/05/16 09:20 Dose: 2 puff Chlorhexidine Gluconate (Peridex -) 15 ml MM BID [facility] Last Admin: 07/05/16 09:20 Dose: Not Given Diltiazem HCl (Cardizem Injection -) 10 mg IVPUSH Q4H PRN PRN Reason: TACHYCARDIA Last Admin: 07/04/16 07:06 Dose: 10 mg Diltiazem HCl (Cardizem -) 90 mg PO Q6HPO [facility] Last Admin: 07/05/16 11:02 Dose: 90 mg Furosemide (Lasix -) 40 mg PO DAILY [facility] Last Admin: 07/05/16 09:19 Dose: 40 mg Hydralazine HCl (Apresoline -) 10 mg PO TID [facility] Last Admin: 07/05/16 15:29 Dose: 10 mg Meropenem 1 gm/ Dextrose 100 mls @ 100 mls/hr IVPB Q8H-IV [facility] PRN Reason: Protocol Last Admin: 07/05/16 09:19 Dose: Not Given Insulin Aspart (Novolog Vial Sliding Scale -) 1 vial SQ ACHS [facility] PRN Reason: Protocol Last Admin: 07/05/16 15:59 Dose: 2 units Insulin Detemir (Levemir Vial) 5 units SQ HS [facility] Last Admin: 07/04/16 22:49 Dose: 5 units Morphine Sulfate (Morphine Injection -) 2 mg IVPUSH Q3H PRN PRN Reason: PAIN Last Admin: 07/05/16 02:10 Dose: 2 mg Nitroglycerin (Nitrostat -) 0.4 mg SL Q5M PRN PRN Reason: FOR CHEST PAIN Last Admin: 06/20/16 11:35 Dose: 0.4 mg Pantoprazole Sodium (Protonix -) 40 mg PO BID [facility] Last Admin: 07/05/16 15:29 Dose: 40 mg Prednisone (Deltasone -) 20 mg PO BID [facility] Last Admin: 07/05/16 15:29 Dose: 20 mg - Objective Vital Signs: Vital Signs Temperature 97.8 F 07/05/16 13:18 Pulse Rate 88 07/05/16 15:20 Respiratory Rate 20 07/05/16 15:20 Blood Pressure 128/50 07/05/16 15:20 O2 Sat by Pulse Oximetry (%) 93 L 07/05/16 13:18 Constitutional: Yes: No Distress HENT: Yes: Atraumatic Neck: Yes: Supple Cardiovascular: Yes: Regular Rate and Rhythm Respiratory: Yes: Rhonchi Gastrointestinal: Yes: Normal Bowel Sounds Extremities: Yes: WNL Neurological: Yes: Alert, Oriented Labs: CBC, BMP 07/05/16 08:10 07/05/16 08:10 INR, PTT INR 1.02 (0.82-1.09) 06/09/16 05:05 Problem List - Problems (1) Respiratory failure Assessment/Plan: on bipap apiration pna on abx on steroids Code(s): J96.90 - RESPIRATORY FAILURE, UNSP, UNSP W HYPOXIA OR HYPERCAPNIA Qualifiers: Chronicity: acute Respiratory failure complication: hypoxia and hypercapnia Qualified Code(s): J96.01 - Acute respiratory failure with hypoxia (2) Chronic respiratory failure with hypoxia Assessment/Plan: duo nebs steroids Code(s): J96.11 - CHRONIC RESPIRATORY FAILURE WITH HYPOXIA (3) CAD (coronary artery disease) Assessment/Plan: on meds follow up labs continue current meds Code(s): I25.10 - ATHSCL HEART DISEASE OF [place] CORONARY ARTERY W/O ANG PCTRS (4) COPD (chronic obstructive pulmonary disease) Assessment/Plan: on meds stable steroids duo nebs Code(s): J44.9 - CHRONIC OBSTRUCTIVE PULMONARY DISEASE, UNSPECIFIED (5) Chronic diastolic CHF (congestive heart failure) Assessment/Plan: stable on meds Code(s): I50.32 - CHRONIC DIASTOLIC (CONGESTIVE) HEART FAILURE (6) HLD (hyperlipidemia) Assessment/Plan: on meds Code(s): E78.5 - HYPERLIPIDEMIA, UNSPECIFIED Qualifiers: Hyperlipidemia type: unspecified Qualified Code(s): E78.5 - Hyperlipidemia, unspecified (7) HTN (hypertension) Assessment/Plan: on meds stable Code(s): I10 - ESSENTIAL (PRIMARY) HYPERTENSION Qualifiers: Hypertension type: essential hypertension Qualified Code(s): I10 - Essential (primary) hypertension (8) History of cigarette smoking Code(s): Z87.891 - PERSONAL HISTORY OF NICOTINE DEPENDENCE (9) Influenza Assessment/Plan: on meds id consult Code(s): J11.1 - FLU DUE TO UNIDENTIFIED INFLUENZA VIRUS W OTH RESP MANIFEST (10) Acute on chronic respiratory failure with hypoxia and hypercapnia Code(s): J96.21 - ACUTE AND CHRONIC RESPIRATORY FAILURE WITH HYPOXIA J96.22 - ACUTE AND CHRONIC RESPIRATORY FAILURE WITH HYPERCAPNIA (11) History of PSVT (paroxysmal supraventricular tachycardia) Code(s): Z86.79 - PERSONAL HISTORY OF OTHER DISEASES OF THE CIRCULATORY SYSTEM (12) Anemia Assessment/Plan: hgb stable Code(s): D64.9 - ANEMIA, UNSPECIFIED (13) NSTEMI (non-ST elevated myocardial infarction) Assessment/Plan: acute nstemi will monitor Code(s): I21.4 - NON-ST ELEVATION (NSTEMI) MYOCARDIAL INFARCTION (14) GI (gastrointestinal bleed) Assessment/Plan: will transfuse 1 unit prbc fu cbc Code(s): K92.2 - GASTROINTESTINAL HEMORRHAGE, UNSPECIFIED
--- NOTE | 2016-07-05 17:54 | PN ---
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, Physician History of Present Illness: stable refused speech and swallow post extubated patient eating and tolerating food - Current Medication List Current Medications: Active Medications Acetaminophen (Tylenol -) 650 mg PO Q4H PRN PRN Reason: FEVER OR PAIN Last Admin: 06/30/16 22:25 Dose: 650 mg Albuterol/Ipratropium (Duoneb -) 1 amp NEB TIDR [facility] Last Admin: 07/05/16 14:35 Dose: 1 amp Atorvastatin Calcium (Lipitor -) 80 mg PO HS [facility] Last Admin: 07/04/16 22:24 Dose: 80 mg Budesonide/Formoterol Fumarate (Symbicort 160/4.5mcg -) 2 puff IH BID [facility] Last Admin: 07/05/16 09:20 Dose: 2 puff Chlorhexidine Gluconate (Peridex -) 15 ml MM BID [facility] Last Admin: 07/05/16 09:20 Dose: Not Given Diltiazem HCl (Cardizem Injection -) 10 mg IVPUSH Q4H PRN PRN Reason: TACHYCARDIA Last Admin: 07/04/16 07:06 Dose: 10 mg Diltiazem HCl (Cardizem -) 90 mg PO Q6HPO [facility] Last Admin: 07/05/16 17:00 Dose: 90 mg Furosemide (Lasix -) 40 mg PO DAILY [facility] Last Admin: 07/05/16 09:19 Dose: 40 mg Hydralazine HCl (Apresoline -) 10 mg PO TID [facility] Last Admin: 07/05/16 15:29 Dose: 10 mg Meropenem 1 gm/ Dextrose 100 mls @ 100 mls/hr IVPB Q8H-IV [facility] PRN Reason: Protocol Last Admin: 07/05/16 17:01 Dose: Not Given Insulin Aspart (Novolog Vial Sliding Scale -) 1 vial SQ ACHS [facility] PRN Reason: Protocol Last Admin: 07/05/16 15:59 Dose: 2 units Insulin Detemir (Levemir Vial) 5 units SQ HS [facility] Last Admin: 07/04/16 22:49 Dose: 5 units Morphine Sulfate (Morphine Injection -) 2 mg IVPUSH Q3H PRN PRN Reason: PAIN Last Admin: 07/05/16 02:10 Dose: 2 mg Nitroglycerin (Nitrostat -) 0.4 mg SL Q5M PRN PRN Reason: FOR CHEST PAIN Last Admin: 06/20/16 11:35 Dose: 0.4 mg Pantoprazole Sodium (Protonix -) 40 mg PO BID [facility] Last Admin: 07/05/16 15:29 Dose: 40 mg Prednisone (Deltasone -) 20 mg PO BID [facility] Last Admin: 07/05/16 15:29 Dose: 20 mg - Objective Vital Signs: Vital Signs Temperature 97.8 F 07/05/16 13:18 Pulse Rate 92 H 07/05/16 17:03 Respiratory Rate 18 07/05/16 17:03 Blood Pressure 122/60 07/05/16 17:03 O2 Sat by Pulse Oximetry (%) 93 L 07/05/16 13:18 Constitutional: Yes: No Distress, Calm Neck: Yes: Supple, Trachea Midline Cardiovascular: Yes: Regular Rate and Rhythm Respiratory: Yes: Regular, On Nasal O2, Poor Air Entry, Other (hoarsw=e voice) Gastrointestinal: Yes: Normal Bowel Sounds, Soft, Other (tolerating diet) Musculoskeletal: Yes: WNL Extremities: Yes: WNL Neurological: Yes: Alert, Oriented Psychiatric: Yes: Alert, Oriented Labs: CBC, BMP 07/05/16 08:10 07/05/16 08:10 INR, PTT INR 1.02 (0.82-1.09) 06/09/16 05:05 - ....Imaging Chest X-ray: Report Reviewed, Image Reviewed Assessment/Plan Problem List - Problems (1) Aortic stenosis Code(s): I35.0 - NONRHEUMATIC AORTIC (VALVE) STENOSIS (2) History of PSVT (paroxysmal supraventricular tachycardia) Code(s): Z86.79 - PERSONAL HISTORY OF OTHER DISEASES OF THE CIRCULATORY SYSTEM (3) NSTEMI (non-ST elevated myocardial infarction) Code(s): I21.4 - NON-ST ELEVATION (NSTEMI) MYOCARDIAL INFARCTION (4) Respiratory failure Code(s): J96.90 - RESPIRATORY FAILURE, UNSP, UNSP W HYPOXIA OR HYPERCAPNIA Qualifiers: Chronicity: acute Respiratory failure complication: hypoxia and hypercapnia Qualified Code(s): J96.01 - Acute respiratory failure with hypoxia (5) Pulmonary hypertension Code(s): I27.2 - OTHER SECONDARY PULMONARY HYPERTENSION (6) Pulmonary nodules Code(s): R91.8 - OTHER NONSPECIFIC ABNORMAL FINDING OF LUNG FIELD (7) COPD (chronic obstructive pulmonary disease) Code(s): J44.9 - CHRONIC OBSTRUCTIVE PULMONARY DISEASE, UNSPECIFIED (8) History of cigarette smoking Code(s): Z87.891 - PERSONAL HISTORY OF NICOTINE DEPENDENCE (9) Acute on chronic respiratory failure with hypoxia and hypercapnia Code(s): J96.21 - ACUTE AND CHRONIC RESPIRATORY FAILURE WITH HYPOXIA J96.22 - ACUTE AND CHRONIC RESPIRATORY FAILURE WITH HYPERCAPNIAEPENDENCE +Troponins/Acute NSTEMI Lactic Acidosis h/o Breast 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
[2016-07-05] MEDS ORDERED: predniSONE 20 MG TABLET (UD) PO SCH (18:00)
[2016-07-05] MEDS ORDERED: morphine CARPU-JECT 2 MG/1 ML DISP.SYRIN IVPUSH PRN (18:25)
[2016-07-05] MEDS ORDERED: dilTIAZem HCL 50 MG/10 ML - 10 ML VIAL IVPUSH PRN (18:25)
[2016-07-05] MEDS ORDERED: NITROGLYCERIN SUBLINGUAL 1/150 0.4 MG TAB SL PRN (18:25)
[2016-07-05] MEDS: ATORVASTATIN CA 80 MG TABLET (FP) PO SCH ×2 (21:20→22:15)
[2016-07-05] MEDS ORDERED: PANTOPRAZOLE 40 MG TABLET (FP) PO SCH (22:00)
[2016-07-05] MEDS: INSULIN DETEMIR 100 UNITS/ML MDV SQ SCH (22:12)
[2016-07-06] MEDS: MEROPENEM 1 GM in DEXTROSE 5%-WATER - 100 ML IVPB SCH ×3 (02:00→17:35)
[2016-07-06] MEDS: hydrALAZINE HCL 10 MG TABLET PO SCH ×2 (05:52→15:24)
[2016-07-06] MEDS: dilTIAZem HCL 30 MG TABLET (FP) PO SCH ×4 (06:00→17:35)
[2016-07-06] MEDS: ALBUTEROL SO4 2.5/IPRATROPIUM 0.5 INH SOL 3 ML VIAL.NEB. NEB SCH ×3 (06:35→17:36)
[2016-07-06] MEDS: INSULIN SLIDING SCALE (NOVOLOG) 1 VIAL SQ SCH ×3 (07:46→16:02)
--- NOTE | 2016-07-06 09:30 | PN ---
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, Physician Chief Complaint: appears comfortable. - Current Medication List Current Medications: Active Medications Acetaminophen (Tylenol -) 650 mg PO Q4H PRN PRN Reason: FEVER OR PAIN Albuterol/Ipratropium (Duoneb -) 1 amp NEB TIDR [facility] Last Admin: 07/06/16 06:35 Dose: Not Given Atorvastatin Calcium (Lipitor -) 80 mg PO HS [facility] Last Admin: 07/05/16 22:15 Dose: Not Given Budesonide/Formoterol Fumarate (Symbicort 160/4.5mcg -) 2 puff IH BID [facility] Last Admin: 07/05/16 22:14 Dose: Not Given Chlorhexidine Gluconate (Peridex -) 15 ml MM BID [facility] Last Admin: 07/05/16 22:14 Dose: Not Given Diltiazem HCl (Cardizem Injection -) 10 mg IVPUSH Q4H PRN PRN Reason: TACHYCARDIA Diltiazem HCl (Cardizem -) 90 mg PO Q6HPO [facility] Last Admin: 07/06/16 06:00 Dose: Not Given Furosemide (Lasix -) 40 mg PO DAILY [facility] Hydralazine HCl (Apresoline -) 10 mg PO TID [facility] Last Admin: 07/06/16 05:52 Dose: Not Given Meropenem 1 gm/ Dextrose 100 mls @ 100 mls/hr IVPB Q8H-IV [facility] PRN Reason: Protocol Last Admin: 07/06/16 02:00 Dose: Not Given Insulin Aspart (Novolog Vial Sliding Scale -) 1 vial SQ ACHS [facility] PRN Reason: Protocol Last Admin: 07/06/16 07:46 Dose: Not Given Insulin Detemir (Levemir Vial) 5 units SQ [facility] Last Admin: 07/05/16 22:12 Dose: Not Given Morphine Sulfate (Morphine Injection -) 2 mg IVPUSH Q3H PRN PRN Reason: PAIN Nitroglycerin (Nitrostat -) 0.4 mg SL Q5M PRN PRN Reason: FOR CHEST PAIN Pantoprazole Sodium (Protonix -) 40 mg PO BID [facility] Last Admin: 07/05/16 22:14 Dose: Not Given Prednisone (Deltasone -) 20 mg PO BID [facility] Last Admin: 07/05/16 22:15 Dose: Not Given - Objective Vital Signs: Vital Signs Temperature 98.2 F 07/05/16 18:15 Pulse Rate 80 07/06/16 00:00 Respiratory Rate 18 07/06/16 08:00 Blood Pressure 146/52 07/06/16 08:00 O2 Sat by Pulse Oximetry (%) 84 L 07/06/16 08:00 Constitutional: Yes: No Distress Eyes: Yes: Conjunctiva Clear Cardiovascular: Yes: Regular Rate and Rhythm Respiratory: Yes: Other (no active wheezing.) Gastrointestinal: Yes: Soft Edema: No Labs: CBC, BMP 07/05/16 08:10 07/05/16 08:10 INR, PTT INR 1.02 (0.82-1.09) 06/09/16 05:05 - ....Imaging EKG: Other (TELE: appears to have episodes of PAF now.) Assessment/Plan Recurrent acute respiratory failure requiring re-intubation, refused trach first intubation Bilateral PNA Anemia PSVT and PAF CAD s/p NSTEMI Mild COPD REC: Remains extubated Off ASA now, due to anemia Cont. Cardizem 90mg po q6h for PSVT suppression High risk for anticoagulation (for PAF) due to traumatic subdural hematoma and anemia with guaiac + stool.
[2016-07-06] MEDS: predniSONE 20 MG TABLET (UD) PO SCH ×2 (10:13→11:12)
[2016-07-06] MEDS: FUROSEMIDE 40 MG TABLET (FP) PO SCH ×2 (10:14→11:13)
[2016-07-06] MEDS: CHLORHEXIDINE GLUCONATE 0.12% 15ML CUP MM SCH (10:15)
[2016-07-06] MEDS: BUDESONIDE/FORMETEROL FUMARATE 160/4.5 mcg INHALER IH SCH (10:16)
[2016-07-06] MEDS: PANTOPRAZOLE 40 MG TABLET (FP) PO SCH ×2 (10:16→11:14)
--- NOTE | 2016-07-06 11:31 | PN ---
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, [facility] - Note 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: Pt is refusing medication, meals,tearful, poor eye contact. Says something is bothering her but would not expand. Dysphonic voice. Respiration is comfortable. Selected Entries 07/05/16 07/05/16 07/05/16 00:00 02:00 03:58 Breakfast Lunch Skin Risk Level Supper Total Score - Skin Risk Assessment Pulse Rate 84 79 70 07/05/16 07/05/16 07/05/16 06:00 08:00 09:24 Breakfast Lunch Skin Risk Level Supper Total Score - Skin Risk Assessment Pulse Rate 72 84 82 07/05/16 07/05/16 07/05/16 11:00 11:31 12:02 Breakfast Lunch Skin Risk Level Supper Total Score - Skin Risk Assessment Pulse Rate 86 86 82 07/05/16 07/05/16 07/05/16 12:54 13:18 15:20 Breakfast 50% Lunch 50% Skin Risk Level Supper Total Score - Skin Risk Assessment Pulse Rate 84 88 07/05/16 07/05/16 07/05/16 17:03 18:15 18:30 Breakfast 50% Lunch 50% Skin Risk Level Supper 50% Total Score - Skin Risk Assessment Pulse Rate 92 H 92 H 07/05/16 07/05/16 07/06/16 20:00 20:49 00:00 Breakfast Lunch Skin Risk Level High Risk Supper Total Score - 11 Skin Risk Assessment Pulse Rate 79 80 Encourage PO, as tolerate. f/u palliative care/Reviewed with spiritual care who will continue to follow.
--- NOTE | 2016-07-06 12:27 | PN ---
Teaching Attending Note Name of Resident: Griffin Bell ATTENDING PHYSICIAN STATEMENT I saw and evaluated the patient. I reviewed the resident's note and discussed the case with the resident. I agree with the resident's findings and plan as documented. SUBJECTIVE: Pt seen and examined in the ICU. Mildly confused this AM, refusing meds and BiPAP. Saturating 76% on room air. OBJECTIVE: Last Vital Signs Temp Pulse Resp BP Pulse Ox 97.6 F 88 18 146/52 84 L 07/06/16 12:00 07/06/16 12:00 07/06/16 12:00 07/06/16 08:00 07/06/16 08:00 Intake & Output 07/03/16 07/04/16 07/05/16 07/06/16 23:59 23:59 23:59 23:59 Intake Total 750 350 400 0 Output Total 900 2900 2200 600 Balance -150 -2550 -1800 -600 Weight 116 lb 5 oz 116 lb 6.465 oz 108 lb 11.006 oz 110 lb 0.171 oz Gen: confused but able to orient Heart: RRR Lung: scattered rhonchi Abd: soft, nontender Ext: trace edema CBC, BMP 07/05/16 08:10 07/05/16 08:10 Active Medications Acetaminophen (Tylenol -) 650 mg PO Q4H PRN PRN Reason: FEVER OR PAIN Albuterol/Ipratropium (Duoneb -) 1 amp NEB TIDR [facility] Last Admin: 07/06/16 06:35 Dose: Not Given Atorvastatin Calcium (Lipitor -) 80 mg PO HS [facility] Last Admin: 07/05/16 22:15 Dose: Not Given Budesonide/Formoterol Fumarate (Symbicort 160/4.5mcg -) 2 puff IH BID [facility] Last Admin: 07/06/16 10:16 Dose: Not Given Chlorhexidine Gluconate (Peridex -) 15 ml MM BID [facility] Last Admin: 07/06/16 10:15 Dose: Not Given Diltiazem HCl (Cardizem Injection -) 10 mg IVPUSH Q4H PRN PRN Reason: TACHYCARDIA Diltiazem HCl (Cardizem -) 90 mg PO Q6HPO [facility] Last Admin: 07/06/16 11:11 Dose: 90 mg Furosemide (Lasix -) 40 mg PO DAILY [facility] Last Admin: 07/06/16 11:13 Dose: 40 mg Hydralazine HCl (Apresoline -) 10 mg PO TID [facility] Last Admin: 07/06/16 05:52 Dose: Not Given Meropenem 1 gm/ Dextrose 100 mls @ 100 mls/hr IVPB Q8H-IV [facility] PRN Reason: Protocol Last Admin: 07/06/16 10:15 Dose: Not Given Insulin Aspart (Novolog Vial Sliding Scale -) 1 vial SQ ACHS [facility] PRN Reason: Protocol Last Admin: 07/06/16 11:22 Dose: Not Given Insulin Detemir (Levemir Vial) 5 units SQ HS [facility] Last Admin: 07/05/16 22:12 Dose: Not Given Morphine Sulfate (Morphine Injection -) 2 mg IVPUSH Q3H PRN PRN Reason: PAIN Nitroglycerin (Nitrostat -) 0.4 mg SL Q5M PRN PRN Reason: FOR CHEST PAIN Pantoprazole Sodium (Protonix -) 40 mg PO BID [facility] Last Admin: 07/06/16 11:14 Dose: 40 mg Prednisone (Deltasone -) 20 mg PO BID [facility] Last Admin: 07/06/16 11:12 Dose: 20 mg ASSESSMENT AND PLAN: Acute on Chronic Hypoxic and Hypercapneic Respiratory Failure Influenza A s/p treatment Pneumonia likely Aspiration Acute COPD Exacerbation CAD PSVT +Troponins/Acute NSTEMI h/o Breast Ca Lung Nodules with recent biopsy showing necrotizing granulomas Smoker - continue antibiotics per ID - slow medrol taper - inhaled bronchodilators - BiPAP at night and PRN during day - ASA - lasix as needed - aspiration precautions - OOB if possible - DVT/GI prophylaxis - continue ICU monitoring for tenuous respiratory status critical care time spent in reviewing chart, evaluating patient and formulating plan 38 min
--- NOTE | 2016-07-06 12:52 | PN ---
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, Physician History of Present Illness: stable post extubation tolerating diet secretions improving - Current Medication List Current Medications: Active Medications Acetaminophen (Tylenol -) 650 mg PO Q4H PRN PRN Reason: FEVER OR PAIN Albuterol/Ipratropium (Duoneb -) 1 amp NEB TIDR [facility] Last Admin: 07/06/16 06:35 Dose: Not Given Atorvastatin Calcium (Lipitor -) 80 mg PO HS [facility] Last Admin: 07/05/16 22:15 Dose: Not Given Budesonide/Formoterol Fumarate (Symbicort 160/4.5mcg -) 2 puff IH BID [facility] Last Admin: 07/06/16 10:16 Dose: Not Given Chlorhexidine Gluconate (Peridex -) 15 ml MM BID [facility] Last Admin: 07/06/16 10:15 Dose: Not Given Diltiazem HCl (Cardizem Injection -) 10 mg IVPUSH Q4H PRN PRN Reason: TACHYCARDIA Diltiazem HCl (Cardizem -) 90 mg PO Q6HPO [facility] Last Admin: 07/06/16 11:11 Dose: 90 mg Furosemide (Lasix -) 40 mg PO DAILY [facility] Last Admin: 07/06/16 11:13 Dose: 40 mg Hydralazine HCl (Apresoline -) 10 mg PO TID [facility] Last Admin: 07/06/16 05:52 Dose: Not Given Meropenem 1 gm/ Dextrose 100 mls @ 100 mls/hr IVPB Q8H-IV [facility] PRN Reason: Protocol Last Admin: 07/06/16 10:15 Dose: Not Given Insulin Aspart (Novolog Vial Sliding Scale -) 1 vial SQ [facility] PRN Reason: Protocol Last Admin: 07/06/16 11:22 Dose: Not Given Insulin Detemir (Levemir Vial) 5 units SQ [facility] Last Admin: 07/05/16 22:12 Dose: Not Given Morphine Sulfate (Morphine Injection -) 2 mg IVPUSH Q3H PRN PRN Reason: PAIN Nitroglycerin (Nitrostat -) 0.4 mg SL Q5M PRN PRN Reason: FOR CHEST PAIN Pantoprazole Sodium (Protonix -) 40 mg PO BID [facility] Last Admin: 07/06/16 11:14 Dose: 40 mg Prednisone (Deltasone -) 20 mg PO BID [facility] Last Admin: 07/06/16 11:12 Dose: 20 mg - Objective Vital Signs: Vital Signs Temperature 97.6 F 07/06/16 12:00 Pulse Rate 88 07/06/16 12:00 Respiratory Rate 18 07/06/16 12:00 Blood Pressure 146/52 07/06/16 08:00 O2 Sat by Pulse Oximetry (%) 84 L 07/06/16 08:00 Constitutional: Yes: No Distress, Calm Cardiovascular: Yes: Regular Rate and Rhythm Respiratory: Yes: On BiPap, On Nasal O2, Poor Air Entry, Rhonchi Gastrointestinal: Yes: Normal Bowel Sounds, Soft Musculoskeletal: Yes: WNL Extremities: Yes: WNL Neurological: Yes: Alert, Oriented Psychiatric: Yes: Alert, Oriented Labs: CBC, BMP 07/05/16 08:10 07/05/16 08:10 INR, PTT INR 1.02 (0.82-1.09) 06/09/16 05:05 Assessment/Plan Problem List - Problems (1) Aortic stenosis Code(s): I35.0 - NONRHEUMATIC AORTIC (VALVE) STENOSIS (2) History of PSVT (paroxysmal supraventricular tachycardia) Code(s): Z86.79 - PERSONAL HISTORY OF OTHER DISEASES OF THE CIRCULATORY SYSTEM (3) NSTEMI (non-ST elevated myocardial infarction) Code(s): I21.4 - NON-ST ELEVATION (NSTEMI) MYOCARDIAL INFARCTION (4) Respiratory failure Code(s): J96.90 - RESPIRATORY FAILURE, UNSP, UNSP W HYPOXIA OR HYPERCAPNIA Qualifiers: Chronicity: acute Respiratory failure complication: hypoxia and hypercapnia Qualified Code(s): J96.01 - Acute respiratory failure with hypoxia (5) Pulmonary hypertension Code(s): I27.2 - OTHER SECONDARY PULMONARY HYPERTENSION (6) Pulmonary nodules Code(s): R91.8 - OTHER NONSPECIFIC ABNORMAL FINDING OF LUNG FIELD (7) COPD (chronic obstructive pulmonary disease) Code(s): J44.9 - CHRONIC OBSTRUCTIVE PULMONARY DISEASE, UNSPECIFIED (8) History of cigarette smoking Code(s): Z87.891 - PERSONAL HISTORY OF NICOTINE DEPENDENCE (9) Acute on chronic respiratory failure with hypoxia and hypercapnia Code(s): J96.21 - ACUTE AND CHRONIC RESPIRATORY FAILURE WITH HYPOXIA J96.22 - ACUTE AND CHRONIC RESPIRATORY FAILURE WITH HYPERCAPNIAEPENDENCE +Troponins/Acute NSTEMI Lactic Acidosis h/o Breast Ca Lung Nodules with recent biopsy showing necrotizing granulomas Smoker pseudomonas pneumonia uti plan wbc trending down,still on higher side continue abx continue as per pul/icu continue to monitor patient tolerating diet aspiration precautions monitor very carefully cc 40 min
[2016-07-06] MEDS ORDERED: PT OWN MED DRAWER 7, Y5N ONE (13:35)
[2016-07-06] MEDS ORDERED: predniSONE 20 MG TABLET (UD) PO ONE (13:45)
--- NOTE | 2016-07-06 14:11 | PN ---
Physical Exam: SUBJECTIVE: Patient seen and examined Patient refused iV meds, and po meds patient refused oxygen therapy Patient refused feed. on repeated asking her and trying to convince her patient refused OBJECTIVE: Vital Signs Period Temp Pulse Resp BP Sys/Rasheed Pulse Ox Last 24 Hr 97.6 F-98.2 F 79-92 18-20 122-147/50-69 84-97 GENERAL: The patient is awake, alert, and fully oriented HEAD: Normal with no signs of trauma.. ENT:, dry mucous membranes. NECK: Trachea midline, full range of motion, supple. LUNGS: Breath sounds equal, rales decreased, no wheez. HEART: s1s2 normal. ABDOMEN: Soft, nontender, nondistended, normoactive bowel sounds, no guarding, no rebound, EXTREMITIES: 2+ pulses, warm, well-perfused, edema 1+ PSYCH: Normal mood, normal affect. SKIN: Warm, dry, Laboratory Results - last 24 hr 06/23/16 07/02/16 07/05/16 00:40 18:40 15:53 Rafi Test Not applicable PEEP 0.0 POC Glucometer [id number] Blood Type A POSITIVE Antibody Screen Negative Crossmatch See Detail Active Medications Generic Name Dose Route Start Last Admin Trade Name Freq PRN Reason Stop Dose Admin Acetaminophen 650 mg 07/05/16 18:25 Tylenol - PO Q4H PRN FEVER OR PAIN Albuterol/Ipratropium 1 amp 07/06/16 13:45 07/06/16 13:44 Duoneb - NEB 1 amp QIDR [facility] Administration Atorvastatin Calcium 80 mg 07/05/16 22:00 07/05/16 22:15 Lipitor - PO Not Given HS [facility] Budesonide/Formoterol Fumarate 2 puff 07/05/16 22:00 07/06/16 10:16 Symbicort 160/4.5mcg - IH Not Given BID [facility] Chlorhexidine Gluconate 15 ml 07/05/16 22:00 07/06/16 10:15 Peridex - MM Not Given BID [facility] Diltiazem HCl 10 mg 07/05/16 18:25 Cardizem Injection - IVPUSH Q4H PRN TACHYCARDIA Diltiazem HCl 90 mg 07/06/16 00:00 07/06/16 11:11 Cardizem - PO 90 mg Q6HPO [facility] Administration Furosemide 40 mg 07/06/16 10:00 07/06/16 11:13 Lasix - PO 40 mg DAILY [facility] Administration Hydralazine HCl 10 mg 07/05/16 22:00 07/06/16 05:52 Apresoline - PO Not Given TID [facility] Meropenem 1 gm/ Dextrose 100 mls @ 100 mls/hr 07/06/16 02:00 07/06/16 10:15 IVPB Not Given Q8H-IV [facility] Protocol Insulin Aspart 1 vial 07/05/16 22:00 07/06/16 11:22 Novolog Vial Sliding Scale - SQ Not Given ACHS [facility] Protocol Insulin Detemir 5 units 07/05/16 22:00 07/05/16 22:12 Levemir Vial SQ Not Given HS [facility] Morphine Sulfate 2 mg 07/05/16 18:25 Morphine Injection - IVPUSH Q3H PRN PAIN Nitroglycerin 0.4 mg 07/05/16 18:25 Nitrostat - SL Q5M PRN FOR CHEST PAIN Pantoprazole Sodium 40 mg 07/05/16 12:30 07/06/16 11:14 Protonix - PO 40 mg BID [facility] Administration Prednisone 20 mg 07/05/16 12:30 07/06/16 11:12 Deltasone - PO 20 mg BID [facility] Administration ASSESSMENT/PLAN: acute hypercapneic respiratory failure due to aspiration pneumonia self extubated on monday, on 3 L NC oxygen, keep spo2 over 90 Nebulizers [facility] and PRN on prednisone 20 bid on meropenem day 7 sputum : psudomonas, urine citrobacter koseri ID on case on lasix 40 po daily Today patient refused all medication. Than aroun 1:30 pm patient states she has difficulty in breathing and she agreed for po prednisone and duoneb neb. She still refuses IV meds. hyperkalemia resolved diarrhoea resolved c diff toxin negative Shock improved could be from aspiration pneumonia altered mental status could be from metabolic encephalopathy improved H/O HTN/ afib continue hydralazine 10 tid on cardiazem 90mg q6h asprin on hold in view of lower gi bleed h/o copd on duoneb onprednisone 20mg bid DM on sliding scale novalog monitor bgm influenza positive completed a course of tamiflue Microcytic anemia hb 9.3 FEN electrolyet follow in am patient on dysphagia puree Prophylaxis DVT: scd b/l GI: PPI iv bid dispo : transfer to tele Visit type - Emergency Visit Emergency Visit: Yes ED Registration Date: 05/30/16 Care time: The patient presented to the Emergency Department on the above date and was hospitalized for further evaluation of their emergent condition. - New Patient This patient is new to me today: No - Critical Care Critical Care patient: Yes Total Critical Care Time (in minutes): 45 Critical Care Statement: The care of this patient involved high complexity decision making to prevent further life threatening deterioration of the patient 's condition and/or to evalute & treat vital organ system(s) failure or risk of failure.
--- NOTE | 2016-07-06 18:05 | PN ---
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, Physician History of Present Illness: on face mask alert talking - Current Medication List Current Medications: Active Medications Acetaminophen (Tylenol -) 650 mg PO Q4H PRN PRN Reason: FEVER OR PAIN Albuterol/Ipratropium (Duoneb -) 1 amp NEB QIDR [facility] Last Admin: 07/06/16 17:36 Dose: 1 amp Atorvastatin Calcium (Lipitor -) 80 mg PO HS [facility] Last Admin: 07/05/16 22:15 Dose: Not Given Budesonide/Formoterol Fumarate (Symbicort 160/4.5mcg -) 2 puff IH BID [facility] Last Admin: 07/06/16 10:16 Dose: Not Given Chlorhexidine Gluconate (Peridex -) 15 ml MM BID [facility] Last Admin: 07/06/16 10:15 Dose: Not Given Diltiazem HCl (Cardizem Injection -) 10 mg IVPUSH Q4H PRN PRN Reason: TACHYCARDIA Diltiazem HCl (Cardizem -) 90 mg PO Q6HPO [facility] Last Admin: 07/06/16 17:35 Dose: 90 mg Furosemide (Lasix -) 40 mg PO DAILY [facility] Last Admin: 07/06/16 11:13 Dose: 40 mg Hydralazine HCl (Apresoline -) 10 mg PO TID [facility] Last Admin: 07/06/16 15:24 Dose: 10 mg Meropenem 1 gm/ Dextrose 100 mls @ 100 mls/hr IVPB Q8H-IV [facility] PRN Reason: Protocol Last Admin: 07/06/16 17:35 Dose: Not Given Insulin Aspart (Novolog Vial Sliding Scale -) 1 vial SQ [facility] PRN Reason: Protocol Last Admin: 07/06/16 16:02 Dose: Not Given Insulin Detemir (Levemir Vial) [address] [facility] Last Admin: 07/05/16 22:12 Dose: Not Given Morphine Sulfate (Morphine Injection -) 2 mg IVPUSH Q3H PRN PRN Reason: PAIN Nitroglycerin (Nitrostat -) 0.4 mg SL Q5M PRN PRN Reason: FOR CHEST PAIN Pantoprazole Sodium (Protonix -) 40 mg PO BID [facility] Last Admin: 07/06/16 11:14 Dose: 40 mg Prednisone (Deltasone -) 20 mg PO BID [facility] Last Admin: 07/06/16 11:12 Dose: 20 mg - Objective Vital Signs: Vital Signs Temperature 97.6 F 07/06/16 14:00 Pulse Rate 86 07/06/16 14:00 Respiratory Rate 24 07/06/16 16:00 Blood Pressure 136/60 07/06/16 16:00 O2 Sat by Pulse Oximetry (%) 91 L 07/06/16 17:36 Constitutional: Yes: No Distress HENT: Yes: Atraumatic Neck: Yes: Supple Cardiovascular: Yes: Regular Rate and Rhythm Respiratory: Yes: Rhonchi Gastrointestinal: Yes: Normal Bowel Sounds Extremities: Yes: WNL Neurological: Yes: Alert, Oriented Labs: CBC, BMP 07/05/16 08:10 07/05/16 08:10 INR, PTT INR 1.02 (0.82-1.09) 06/09/16 05:05 Problem List - Problems (1) Respiratory failure Assessment/Plan: on bipap apiration pna on abx on steroids Code(s): J96.90 - RESPIRATORY FAILURE, UNSP, UNSP W HYPOXIA OR HYPERCAPNIA Qualifiers: Chronicity: acute Respiratory failure complication: hypoxia and hypercapnia Qualified Code(s): J96.01 - Acute respiratory failure with hypoxia (2) Chronic respiratory failure with hypoxia Assessment/Plan: duo nebs steroids Code(s): J96.11 - CHRONIC RESPIRATORY FAILURE WITH HYPOXIA (3) CAD (coronary artery disease) Assessment/Plan: on meds follow up labs continue current meds Code(s): I25.10 - ATHSCL HEART DISEASE OF [place] CORONARY ARTERY W/O ANG PCTRS (4) COPD (chronic obstructive pulmonary disease) Assessment/Plan: on meds stable steroids duo nebs Code(s): J44.9 - CHRONIC OBSTRUCTIVE PULMONARY DISEASE, UNSPECIFIED (5) Chronic diastolic CHF (congestive heart failure) Assessment/Plan: stable on meds Code(s): I50.32 - CHRONIC DIASTOLIC (CONGESTIVE) HEART FAILURE (6) HLD (hyperlipidemia) Assessment/Plan: on meds Code(s): E78.5 - HYPERLIPIDEMIA, UNSPECIFIED Qualifiers: Hyperlipidemia type: unspecified Qualified Code(s): E78.5 - Hyperlipidemia, unspecified (7) HTN (hypertension) Assessment/Plan: on meds stable Code(s): I10 - ESSENTIAL (PRIMARY) HYPERTENSION Qualifiers: Hypertension type: essential hypertension Qualified Code(s): I10 - Essential (primary) hypertension (8) History of cigarette smoking Code(s): Z87.891 - PERSONAL HISTORY OF NICOTINE DEPENDENCE (9) Influenza Assessment/Plan: on meds id consult Code(s): J11.1 - FLU DUE TO UNIDENTIFIED INFLUENZA VIRUS W OTH RESP MANIFEST (10) Acute on chronic respiratory failure with hypoxia and hypercapnia Code(s): J96.21 - ACUTE AND CHRONIC RESPIRATORY FAILURE WITH HYPOXIA J96.22 - ACUTE AND CHRONIC RESPIRATORY FAILURE WITH HYPERCAPNIA (11) History of PSVT (paroxysmal supraventricular tachycardia) Code(s): Z86.79 - PERSONAL HISTORY OF OTHER DISEASES OF THE CIRCULATORY SYSTEM (12) Anemia Assessment/Plan: hgb stable Code(s): D64.9 - ANEMIA, UNSPECIFIED (13) NSTEMI (non-ST elevated myocardial infarction) Assessment/Plan: acute nstemi will monitor Code(s): I21.4 - NON-ST ELEVATION (NSTEMI) MYOCARDIAL INFARCTION (14) GI (gastrointestinal bleed) Assessment/Plan: will transfuse 1 unit prbc fu cbc Code(s): K92.2 - GASTROINTESTINAL HEMORRHAGE, UNSPECIFIED Assessment/Plan 1.+Influenza treated 2.Acute respiratory failure ON FACE MASK RLL INFILTERATE ON ABX AND DUO NEBS 3.ANEMIA STABLE 4.NSTEMI 5.History breast cancer, lung mass with negative bx 6.COPD, chronic with chronic hypoxemia 7.chf STABLE 8.LOWER GI BLEED...stable s/p blood transfusion FU CBC IV PROTONIX BID 9.DYSPHAGIA REFUSING BARIUM SWALLOW ON DYSPAGIA DIET CC in reviewing chart and formulating care 30 min
[2016-07-07] MEDS: ALBUTEROL SO4 2.5/IPRATROPIUM 0.5 INH SOL 3 ML VIAL.NEB. NEB SCH ×5 (00:12→23:35)
[2016-07-07] MEDS: hydrALAZINE HCL 10 MG TABLET PO SCH ×4 (00:14→21:16)
[2016-07-07] MEDS: predniSONE 20 MG TABLET (UD) PO SCH ×3 (00:15→21:16)
[2016-07-07] MEDS: INSULIN DETEMIR 100 UNITS/ML MDV SQ SCH ×3 (00:15→21:16)
[2016-07-07] MEDS: PANTOPRAZOLE 40 MG TABLET (FP) PO SCH ×3 (00:16→21:16)
[2016-07-07] MEDS: CHLORHEXIDINE GLUCONATE 0.12% 15ML CUP MM SCH ×2 (00:16→09:46)
[2016-07-07] MEDS: INSULIN SLIDING SCALE (NOVOLOG) 1 VIAL SQ SCH ×5 (00:16→21:15)
[2016-07-07] MEDS: ATORVASTATIN CA 80 MG TABLET (FP) PO SCH ×2 (00:16→21:16)
[2016-07-07] MEDS: BUDESONIDE/FORMETEROL FUMARATE 160/4.5 mcg INHALER IH SCH ×3 (00:16→22:24)
[2016-07-07] MEDS: dilTIAZem HCL 30 MG TABLET (FP) PO SCH ×4 (00:17→17:19)
[2016-07-07] MEDS: MEROPENEM 1 GM in DEXTROSE 5%-WATER - 100 ML IVPB SCH ×3 (01:07→17:19)
[2016-07-07 06:09] LABS: BASOPHIL 0.2 % (0-2.0); MCH 27.2 pg (25.7-33.7); MCHC 31.8 g/dl (32.0-36.0); MEAN CELL VOLUME 85.6 fl (80-96); MEAN PLT VOLUME 8.8 fl (7.5-11.1); NEUTROPHILS 90.6 % (42.8-82.8); PLATELET COUNT 154 K/MM3 (134-434); RDW 21.8 % (11.6-15.6); WHITE BLOOD COUNT 10.4 K/mm3 (4.0-10.0)
[2016-07-07 06:34] LABS: CALCIUM 8.4 mg/dL (8.5-10.1); COCKROFT - GAULT 193.8; CREATININE 0.2 mg/dL (0.55-1.02)
--- NOTE | 2016-07-07 09:20 | PN ---
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, Physician Chief Complaint: remains extubated. TELE: NSR, VPCs. - Current Medication List Current Medications: Active Medications Acetaminophen (Tylenol -) 650 mg PO Q4H PRN PRN Reason: FEVER OR PAIN Albuterol/Ipratropium (Duoneb -) 1 amp NEB QIDR [facility] Last Admin: 07/07/16 06:15 Dose: 1 amp Atorvastatin Calcium (Lipitor -) 80 mg PO HS [facility] Last Admin: 07/07/16 00:16 Dose: Not Given Budesonide/Formoterol Fumarate (Symbicort 160/4.5mcg -) 2 puff IH BID [facility] Last Admin: 07/07/16 00:16 Dose: Not Given Chlorhexidine Gluconate (Peridex -) 15 ml MM BID [facility] Last Admin: 07/07/16 00:16 Dose: Not Given Diltiazem HCl (Cardizem Injection -) 10 mg IVPUSH Q4H PRN PRN Reason: TACHYCARDIA Diltiazem HCl (Cardizem -) 90 mg PO Q6HPO [facility] Last Admin: 07/07/16 06:33 Dose: Not Given Furosemide (Lasix -) 40 mg PO DAILY [facility] Last Admin: 07/06/16 11:13 Dose: 40 mg Hydralazine HCl (Apresoline -) 10 mg PO TID [facility] Last Admin: 07/07/16 06:33 Dose: Not Given Meropenem 1 gm/ Dextrose 100 mls @ 100 mls/hr IVPB Q8H-IV [facility] PRN Reason: Protocol Last Admin: 07/07/16 01:07 Dose: Not Given Insulin Aspart (Novolog Vial Sliding Scale -) 1 vial SQ ACHS [facility] PRN Reason: Protocol Last Admin: 07/07/16 06:33 Dose: Not Given Insulin Detemir (Levemir Vial) 5 units SQ [facility] Last Admin: 07/07/16 00:15 Dose: Not Given Morphine Sulfate (Morphine Injection -) 2 mg IVPUSH Q3H PRN PRN Reason: PAIN Nitroglycerin (Nitrostat -) 0.4 mg SL Q5M PRN PRN Reason: FOR CHEST PAIN Pantoprazole Sodium (Protonix -) 40 mg PO BID [facility] Last Admin: 07/07/16 00:16 Dose: Not Given Prednisone (Deltasone -) 20 mg PO BID [facility] Last Admin: 07/07/16 00:15 Dose: Not Given - Objective Vital Signs: Vital Signs Temperature 97.9 F 07/07/16 08:49 Pulse Rate 85 07/07/16 08:49 Respiratory Rate 20 07/07/16 08:49 Blood Pressure 142/57 07/07/16 08:49 O2 Sat by Pulse Oximetry (%) 91 L 07/06/16 19:41 Constitutional: Yes: Calm Eyes: Yes: Conjunctiva Clear Cardiovascular: Yes: Regular Rate and Rhythm Respiratory: Yes: Other (b/l rhonchi) Gastrointestinal: Yes: Soft Edema: No Neurological: Yes: Alert Labs: CBC, BMP 07/07/16 05:15 07/07/16 05:15 INR, PTT INR 1.02 (0.82-1.09) 06/09/16 05:05 Laboratory Tests 07/05/16 07/05/16 07/07/16 08:10 08:10 05:15 WBC 16.6 H 10.4 H D Hgb 9.3 L Hct 29.8 L Plt Count 125 L 154 D Sodium Potassium 3.9 BUN Creatinine 0.3 L 07/07/16 05:15 WBC Hgb Hct Plt Count Sodium 139 Potassium 3.7 BUN 13 D Creatinine 0.2 L D - ....Imaging EKG: Image Reviewed Assessment/Plan Recurrent acute respiratory failure requiring re-intubation, refused trach first intubation Bilateral PNA Anemia PSVT and PAF CAD s/p NSTEMI Mild COPD REC: Remains extubated Off ASA now, due to anemia Cont. Cardizem for PSVT suppression High risk for anticoagulation (for PAF) due to traumatic subdural hematoma and anemia with guaiac + stool.
[2016-07-07] MEDS: FUROSEMIDE 40 MG TABLET (FP) PO SCH (09:45)
[2016-07-07] MEDS: ACETAMINOPHEN 325 MG TABLET (FP) PO PRN (10:10)
[2016-07-07] MEDS ORDERED: NAPROXEN 500 MG TABLET (FP) PO ONE (12:28)
[2016-07-07] MEDS ORDERED: oxyCODONE HCL 5 MG TABLET ONE (12:32)
[2016-07-07] MEDS ORDERED: oxyCODONE HCL 5 MG TABLET PO ONE (12:45)
[2016-07-07] MEDS ORDERED: morphine CARPU-JECT 2 MG/1 ML DISP.SYRIN SQ ONE (13:07)
--- NOTE | 2016-07-07 13:52 | PN ---
Teaching Attending Note Name of Resident: Griffin Bell ATTENDING PHYSICIAN STATEMENT I saw and evaluated the patient. I reviewed the resident's note and discussed the case with the resident. I agree with the resident's findings and plan as documented. SUBJECTIVE: Patient seen and examined in the ICU. Remains extubated. Awake and responsive. Intermittent PSVT and CP. She has been refusing her PO meds and intermittently she has been refusing to keep on her O2 and NIPPV. Intake & Output 07/04/16 07/05/16 07/06/16 07/07/16 23:59 23:59 23:59 23:59 Intake Total 350 400 60 50 Output Total 2900 2200 900 800 Balance -2550 -1800 -840 -750 Weight 116 lb 6.465 oz 108 lb 11.006 oz 110 lb 0.171 oz 109 lb Last Vital Signs Temp Pulse Resp BP Pulse Ox 98 F 92 H 19 128/57 95 07/07/16 13:00 07/07/16 13:00 07/07/16 13:00 07/07/16 13:00 07/07/16 13:42 Active Medications Acetaminophen (Tylenol -) 650 mg PO Q4H PRN PRN Reason: FEVER OR PAIN Last Admin: 07/07/16 10:10 Dose: 650 mg Albuterol/Ipratropium (Duoneb -) 1 amp NEB QIDR [facility] Last Admin: 07/07/16 11:48 Dose: 1 amp Atorvastatin Calcium (Lipitor -) 80 mg PO HS [facility] Last Admin: 07/07/16 00:16 Dose: Not Given Budesonide/Formoterol Fumarate (Symbicort 160/4.5mcg -) 2 puff IH BID [facility] Last Admin: 07/07/16 09:46 Dose: Not Given Chlorhexidine Gluconate (Peridex -) 15 ml MM BID [facility] Last Admin: 07/07/16 09:46 Dose: Not Given Diltiazem HCl (Cardizem Injection -) 10 mg IVPUSH Q4H PRN PRN Reason: TACHYCARDIA Diltiazem HCl (Cardizem -) 90 mg PO Q6HPO [facility] Last Admin: 07/07/16 11:39 Dose: 90 mg Furosemide (Lasix -) 40 mg PO DAILY [facility] Last Admin: 07/07/16 09:45 Dose: 40 mg Hydralazine HCl (Apresoline -) 10 mg PO TID [facility] Last Admin: 07/07/16 13:24 Dose: 10 mg Meropenem 1 gm/ Dextrose 100 mls @ 100 mls/hr IVPB Q8H-IV [facility] PRN Reason: Protocol Last Admin: 07/07/16 09:45 Dose: Not Given Insulin Aspart (Novolog Vial Sliding Scale -) 1 vial SQ ACHS [facility] PRN Reason: Protocol Last Admin: 07/07/16 11:13 Dose: Not Given Insulin Detemir (Levemir Vial) 5 units SQ HS [facility] Last Admin: 07/07/16 00:15 Dose: Not Given Morphine Sulfate (Morphine Injection -) 2 mg IVPUSH Q3H PRN PRN Reason: PAIN Nitroglycerin (Nitrostat -) 0.4 mg SL Q5M PRN PRN Reason: FOR CHEST PAIN Pantoprazole Sodium (Protonix -) 40 mg PO BID [facility] Last Admin: 07/07/16 09:46 Dose: 40 mg Prednisone (Deltasone -) 20 mg PO BID [facility] Last Admin: 07/07/16 09:45 Dose: 20 mg Gen: Awake and alert, mildly tachypneic at rest Heart: RRR Lung: scattered rhonchi Abd: soft, nontender Ext: trace edema Laboratory Results - last 24 hr 07/06/16 07/07/16 07/07/16 15:48 05:15 05:15 WBC 10.4 H D RBC 3.44 L Hgb 9.3 L Hct 29.4 L MCV 85.6 MCHC 31.8 L RDW 21.8 H Plt Count 154 D MPV 8.8 Neutrophils % 90.6 H Lymphocytes % 5.9 L D Monocytes % 3.3 L D Eosinophils % 0.0 D Basophils % 0.2 Sodium 139 Potassium 3.7 Chloride 95 L Carbon Dioxide 36 H Anion Gap 8 BUN 13 D Creatinine 0.2 L D POC Glucometer [phone] Random Glucose 150 H D Calcium 8.4 L ASSESSMENT AND PLAN: Acute on Chronic Hypoxic and Hypercapneic Respiratory Failure Influenza A s/p treatment Pneumonia - ?Aspiration Acute COPD Exacerbation CAD +Troponins/Acute NSTEMI h/o Breast Ca 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
--- NOTE | 2016-07-07 14:05 | PN ---
Physical Exam: SUBJECTIVE: Patient seen and examined Patient still refusing her medication. Patient refused oxygen, bipap. Patient has repeated HR of 190 and she refuses her cardiazem also. Patient has been explained many times regarding consequences of not taking the medication. She states she understand that and still don't want to take it. Patient has been counseled many times to take her medication. OBJECTIVE: Vital Signs Period Temp Pulse Resp BP Sys/Rasheed Pulse Ox Last 24 Hr 97.4 F-98 F 70-102 19-25 125-164/47-84 91-96 GENERAL: The patient is awake, alert, and fully oriented HEAD: Normal with no signs of trauma.. ENT:, dry mucous membranes. NECK: Trachea midline, full range of motion, supple. LUNGS: Breath sounds equal, rales decreased, no wheez. HEART: s1s2 normal. ABDOMEN: Soft, nontender, nondistended, normoactive bowel sounds, no guarding, no rebound, EXTREMITIES: 2+ pulses, warm, well-perfused, edema 1+ PSYCH: Normal mood, normal affect. SKIN: Warm, dry, Laboratory Results - last 24 hr 07/06/16 07/07/16 07/07/16 15:48 05:15 05:15 WBC 10.4 H D RBC 3.44 L Hgb 9.3 L Hct 29.4 L MCV 85.6 MCHC 31.8 L RDW 21.8 H Plt Count 154 D MPV 8.8 Neutrophils % 90.6 H Lymphocytes % 5.9 L D Monocytes % 3.3 L D Eosinophils % 0.0 D Basophils % 0.2 Sodium 139 Potassium 3.7 Chloride 95 L Carbon Dioxide 36 H Anion Gap 8 BUN 13 D Creatinine 0.2 L D POC Glucometer [phone] Random Glucose 150 H D Calcium 8.4 L Active Medications Generic Name Dose Route Start Last Admin Trade Name Freq PRN Reason Stop Dose Admin Acetaminophen 650 mg 07/05/16 18:25 07/07/16 10:10 Tylenol - PO 650 mg Q4H PRN Administration FEVER OR PAIN Albuterol/Ipratropium 1 amp 07/06/16 13:45 07/07/16 11:48 Duoneb - NEB 1 amp QIDR [facility] Administration Atorvastatin Calcium 80 mg 07/05/16 22:00 07/07/16 00:16 Lipitor - PO Not Given HS [facility] Budesonide/Formoterol Fumarate 2 puff 07/05/16 22:00 07/07/16 09:46 Symbicort 160/4.5mcg - IH Not Given BID [facility] Chlorhexidine Gluconate 15 ml 07/05/16 22:00 07/07/16 09:46 Peridex - MM Not Given BID [facility] Diltiazem HCl 10 mg 07/05/16 18:25 Cardizem Injection - IVPUSH Q4H PRN TACHYCARDIA Diltiazem HCl 90 mg 07/06/16 00:00 07/07/16 11:39 Cardizem - PO 90 mg Q6HPO [facility] Administration Furosemide 40 mg 07/06/16 10:00 07/07/16 09:45 Lasix - PO 40 mg DAILY [facility] Administration Hydralazine HCl 10 mg 07/05/16 22:00 07/07/16 13:24 Apresoline - PO 10 mg TID [facility] Administration Meropenem 1 gm/ Dextrose 100 mls @ 100 mls/hr 07/06/16 02:00 07/07/16 09:45 IVPB Not Given Q8H-IV [facility] Protocol Insulin Aspart 1 vial 07/05/16 22:00 07/07/16 11:13 Novolog Vial Sliding Scale - SQ Not Given ACHS [facility] Protocol Insulin Detemir 5 units 07/05/16 22:00 07/07/16 00:15 Levemir Vial SQ Not Given HS [facility] Morphine Sulfate 2 mg 07/05/16 18:25 Morphine Injection - IVPUSH Q3H PRN PAIN Nitroglycerin 0.4 mg 07/05/16 18:25 Nitrostat - SL Q5M PRN FOR CHEST PAIN Pantoprazole Sodium 40 mg 07/05/16 12:30 07/07/16 09:46 Protonix - PO 40 mg BID [facility] Administration Prednisone 20 mg 07/05/16 12:30 07/07/16 09:45 Deltasone - PO 20 mg BID [facility] Administration ASSESSMENT/PLAN: acute hypercapneic respiratory failure due to aspiration pneumonia , on 3 L NC oxygen alt with bipap, refusing it keep spo2 over 90 Nebulizers [facility] and PRN on prednisone 20 bi sputum : psudomonas, urine citrobacter koseri ID on case on lasix 40 po daily refuses IV meds. hyperkalemia resolved diarrhoea resolved c diff toxin negative Shock improved could be from aspiration pneumonia altered mental status could be from metabolic encephalopathy improved H/O HTN/ afib continue hydralazine 10 tid on cardiazem 90mg q6h asprin on hold in view of lower gi bleed h/o copd on duoneb onprednisone 20mg bid DM on sliding scale novalog monitor bgm influenza positive completed a course of tamiflue Microcytic anemia hb 9.3 FEN electrolyet follow in am patient on dysphagia puree Prophylaxis DVT: scd b/l GI: PPI iv bid dispo : transfer to tele Visit type - Emergency Visit Emergency Visit: Yes ED Registration Date: 05/30/16 Care time: The patient presented to the Emergency Department on the above date and was hospitalized for further evaluation of their emergent condition. - New Patient This patient is new to me today: No - Critical Care Critical Care patient: Yes Total Critical Care Time (in minutes): 45 Critical Care Statement: The care of this patient involved high complexity decision making to prevent further life threatening deterioration of the patient 's condition and/or to evalute & treat vital organ system(s) failure or risk of failure.
--- NOTE | 2016-07-07 16:38 | PN ---
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, Physician History of Present Illness: continues to improve on nasal beto says she feels good tolerating diet - Current Medication List Current Medications: Active Medications Acetaminophen (Tylenol -) 650 mg PO Q4H PRN PRN Reason: FEVER OR PAIN Last Admin: 07/07/16 10:10 Dose: 650 mg Albuterol/Ipratropium (Duoneb -) 1 amp NEB QIDR [facility] Last Admin: 07/07/16 11:48 Dose: 1 amp Atorvastatin Calcium (Lipitor -) 80 mg PO [facility] Last Admin: 07/07/16 00:16 Dose: Not Given Budesonide/Formoterol Fumarate (Symbicort 160/4.5mcg -) 2 puff IH BID [facility] Last Admin: 07/07/16 09:46 Dose: Not Given Chlorhexidine Gluconate (Peridex -) 15 ml MM BID [facility] Last Admin: 07/07/16 09:46 Dose: Not Given Diltiazem HCl (Cardizem Injection -) 10 mg IVPUSH Q4H PRN PRN Reason: TACHYCARDIA Diltiazem HCl (Cardizem -) 90 mg PO Q6HPO [facility] Last Admin: 07/07/16 11:39 Dose: 90 mg Furosemide (Lasix -) 40 mg PO DAILY [facility] Last Admin: 07/07/16 09:45 Dose: 40 mg Hydralazine HCl (Apresoline -) 10 mg PO TID [facility] Last Admin: 07/07/16 13:24 Dose: 10 mg Meropenem 1 gm/ Dextrose 100 mls @ 100 mls/hr IVPB Q8H-IV [facility] PRN Reason: Protocol Last Admin: 07/07/16 09:45 Dose: Not Given Insulin Aspart (Novolog Vial Sliding Scale -) 1 vial SQ ACHS [facility] PRN Reason: Protocol Last Admin: 07/07/16 11:13 Dose: Not Given Insulin Detemir (Levemir Vial) 5 units SQ [facility] Last Admin: 07/07/16 00:15 Dose: Not Given Morphine Sulfate (Morphine Injection -) 2 mg IVPUSH Q3H PRN PRN Reason: PAIN Nitroglycerin (Nitrostat -) 0.4 mg SL Q5M PRN PRN Reason: FOR CHEST PAIN Pantoprazole Sodium (Protonix -) 40 mg PO BID [facility] Last Admin: 07/07/16 09:46 Dose: 40 mg Prednisone (Deltasone -) 20 mg PO BID [facility] Last Admin: 07/07/16 09:45 Dose: 20 mg - Objective Vital Signs: Vital Signs Temperature 98 F 07/07/16 13:00 Pulse Rate 92 H 07/07/16 13:00 Respiratory Rate 19 07/07/16 13:00 Blood Pressure 128/57 07/07/16 13:00 O2 Sat by Pulse Oximetry (%) 95 07/07/16 13:42 Constitutional: Yes: No Distress Cardiovascular: Yes: Regular Rate and Rhythm Respiratory: Yes: Regular, On Nasal O2, Rhonchi Gastrointestinal: Yes: Normal Bowel Sounds, Soft Musculoskeletal: Yes: WNL Extremities: Yes: WNL Neurological: Yes: Alert, Oriented Psychiatric: Yes: Alert, Oriented Labs: CBC, BMP 07/07/16 05:15 07/07/16 05:15 INR, PTT INR 1.02 (0.82-1.09) 06/09/16 05:05 Assessment/Plan Problem List - Problems (1) Aortic stenosis Code(s): I35.0 - NONRHEUMATIC AORTIC (VALVE) STENOSIS (2) History of PSVT (paroxysmal supraventricular tachycardia) Code(s): Z86.79 - PERSONAL HISTORY OF OTHER DISEASES OF THE CIRCULATORY SYSTEM (3) NSTEMI (non-ST elevated myocardial infarction) Code(s): I21.4 - NON-ST ELEVATION (NSTEMI) MYOCARDIAL INFARCTION (4) Respiratory failure Code(s): J96.90 - RESPIRATORY FAILURE, UNSP, UNSP W HYPOXIA OR HYPERCAPNIA Qualifiers: Chronicity: acute Respiratory failure complication: hypoxia and hypercapnia Qualified Code(s): J96.01 - Acute respiratory failure with hypoxia (5) Pulmonary hypertension Code(s): I27.2 - OTHER SECONDARY PULMONARY HYPERTENSION (6) Pulmonary nodules Code(s): R91.8 - OTHER NONSPECIFIC ABNORMAL FINDING OF LUNG FIELD (7) COPD (chronic obstructive pulmonary disease) Code(s): J44.9 - CHRONIC OBSTRUCTIVE PULMONARY DISEASE, UNSPECIFIED (8) History of cigarette smoking Code(s): Z87.891 - PERSONAL HISTORY OF NICOTINE DEPENDENCE (9) Acute on chronic respiratory failure with hypoxia and hypercapnia Code(s): J96.21 - ACUTE AND CHRONIC RESPIRATORY FAILURE WITH HYPOXIA J96.22 - ACUTE AND CHRONIC RESPIRATORY FAILURE WITH HYPERCAPNIAEPENDENCE +Troponins/Acute NSTEMI Lactic Acidosis h/o Breast Ca Lung Nodules with recent biopsy showing necrotizing granulomas Smoker pseudomonas pneumonia uti plan wbc now normal continue abx continue as per pul/icu continue to monitor aspiration precautions cc 40 min
--- NOTE | 2016-07-07 17:36 | PN ---
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, Physician History of Present Illness: on face mask alert talking - Current Medication List Current Medications: Active Medications Acetaminophen (Tylenol -) 650 mg PO Q4H PRN PRN Reason: FEVER OR PAIN Last Admin: 07/07/16 10:10 Dose: 650 mg Albuterol/Ipratropium (Duoneb -) 1 amp NEB QIDR [facility] Last Admin: 07/07/16 11:48 Dose: 1 amp Atorvastatin Calcium (Lipitor -) 80 mg PO [facility] Last Admin: 07/07/16 00:16 Dose: Not Given Budesonide/Formoterol Fumarate (Symbicort 160/4.5mcg -) 2 puff IH BID [facility] Last Admin: 07/07/16 09:46 Dose: Not Given Chlorhexidine Gluconate (Peridex -) 15 ml MM BID [facility] Last Admin: 07/07/16 09:46 Dose: Not Given Diltiazem HCl (Cardizem Injection -) 10 mg IVPUSH Q4H PRN PRN Reason: TACHYCARDIA Diltiazem HCl (Cardizem -) 90 mg PO Q6HPO [facility] Last Admin: 07/07/16 17:19 Dose: 90 mg Furosemide (Lasix -) 40 mg PO DAILY [facility] Last Admin: 07/07/16 09:45 Dose: 40 mg Hydralazine HCl (Apresoline -) 10 mg PO TID [facility] Last Admin: 07/07/16 13:24 Dose: 10 mg Meropenem 1 gm/ Dextrose 100 mls @ 100 mls/hr IVPB Q8H-IV [facility] PRN Reason: Protocol Last Admin: 07/07/16 17:19 Dose: Not Given Insulin Aspart (Novolog Vial Sliding Scale -) 1 vial SQ ACHS [facility] PRN Reason: Protocol Last Admin: 07/07/16 17:18 Dose: Not Given Insulin Detemir (Levemir Vial) 5 units SQ [facility] Last Admin: 07/07/16 00:15 Dose: Not Given Morphine Sulfate (Morphine Injection -) 2 mg IVPUSH Q3H PRN PRN Reason: PAIN Nitroglycerin (Nitrostat -) 0.4 mg SL Q5M PRN PRN Reason: FOR CHEST PAIN Pantoprazole Sodium (Protonix -) 40 mg PO BID [facility] Last Admin: 07/07/16 09:46 Dose: 40 mg Prednisone (Deltasone -) 20 mg PO BID [facility] Last Admin: 07/07/16 09:45 Dose: 20 mg - Objective Vital Signs: Vital Signs Temperature 98 F 07/07/16 13:00 Pulse Rate 80 07/07/16 17:00 Respiratory Rate 22 07/07/16 17:00 Blood Pressure 110/50 07/07/16 17:00 O2 Sat by Pulse Oximetry (%) 95 07/07/16 13:42 Constitutional: Yes: No Distress HENT: Yes: Atraumatic Neck: Yes: Supple Cardiovascular: Yes: Regular Rate and Rhythm Respiratory: Yes: Rhonchi Gastrointestinal: Yes: Normal Bowel Sounds Extremities: Yes: WNL Neurological: Yes: Alert, Oriented Labs: CBC, BMP 07/07/16 05:15 07/07/16 05:15 INR, PTT INR 1.02 (0.82-1.09) 06/09/16 05:05 Problem List - Problems (1) Respiratory failure Assessment/Plan: on bipap apiration pna on abx on steroids Code(s): J96.90 - RESPIRATORY FAILURE, UNSP, UNSP W HYPOXIA OR HYPERCAPNIA Qualifiers: Chronicity: acute Respiratory failure complication: hypoxia and hypercapnia Qualified Code(s): J96.01 - Acute respiratory failure with hypoxia (2) Chronic respiratory failure with hypoxia Assessment/Plan: duo nebs steroids Code(s): J96.11 - CHRONIC RESPIRATORY FAILURE WITH HYPOXIA (3) CAD (coronary artery disease) Assessment/Plan: on meds follow up labs continue current meds Code(s): I25.10 - ATHSCL HEART DISEASE OF [place] CORONARY ARTERY W/O ANG PCTRS (4) COPD (chronic obstructive pulmonary disease) Assessment/Plan: on meds stable steroids duo nebs Code(s): J44.9 - CHRONIC OBSTRUCTIVE PULMONARY DISEASE, UNSPECIFIED (5) Chronic diastolic CHF (congestive heart failure) Assessment/Plan: stable on meds Code(s): I50.32 - CHRONIC DIASTOLIC (CONGESTIVE) HEART FAILURE (6) HLD (hyperlipidemia) Assessment/Plan: on meds Code(s): E78.5 - HYPERLIPIDEMIA, UNSPECIFIED Qualifiers: Hyperlipidemia type: unspecified Qualified Code(s): E78.5 - Hyperlipidemia, unspecified (7) HTN (hypertension) Assessment/Plan: on meds stable Code(s): I10 - ESSENTIAL (PRIMARY) HYPERTENSION Qualifiers: Hypertension type: essential hypertension Qualified Code(s): I10 - Essential (primary) hypertension (8) History of cigarette smoking Code(s): Z87.891 - PERSONAL HISTORY OF NICOTINE DEPENDENCE (9) Influenza Assessment/Plan: on meds id consult Code(s): J11.1 - FLU DUE TO UNIDENTIFIED INFLUENZA VIRUS W OTH RESP MANIFEST (10) Acute on chronic respiratory failure with hypoxia and hypercapnia Code(s): J96.21 - ACUTE AND CHRONIC RESPIRATORY FAILURE WITH HYPOXIA J96.22 - ACUTE AND CHRONIC RESPIRATORY FAILURE WITH HYPERCAPNIA (11) History of PSVT (paroxysmal supraventricular tachycardia) Code(s): Z86.79 - PERSONAL HISTORY OF OTHER DISEASES OF THE CIRCULATORY SYSTEM (12) Anemia Assessment/Plan: hgb stable Code(s): D64.9 - ANEMIA, UNSPECIFIED (13) NSTEMI (non-ST elevated myocardial infarction) Code(s): I21.4 - NON-ST ELEVATION (NSTEMI) MYOCARDIAL INFARCTION (14) GI (gastrointestinal bleed) Code(s): K92.2 - GASTROINTESTINAL HEMORRHAGE, UNSPECIFIED Assessment/Plan 1.+Influenza treated 2.Acute respiratory failure ON FACE MASK RLL INFILTERATE ON ABX AND DUO NEBS 3.ANEMIA STABLE 4.NSTEMI 5.History breast cancer, lung mass with negative bx 6.COPD, chronic with chronic hypoxemia 7.chf STABLE 8.LOWER GI BLEED...stable s/p blood transfusion FU CBC IV PROTONIX BID 9.DYSPHAGIA REFUSING BARIUM SWALLOW ON DYSPAGIA DIET CC in reviewing chart and formulating care 30 min
[2016-07-07] MEDS ORDERED: ALPRAZolam 0.25 MG TABLET PO ONE (17:52)
[2016-07-07] MEDS ORDERED: ALPRAZolam 0.25 MG TABLET PO PRN (18:17)
[2016-07-07] MEDS: BANATROL PLUS POWDER PACKET PO SCH (19:35)
[2016-07-07] MEDS ORDERED: PT OWN MED DRAWER 7, Y5N ONE (21:00)
[2016-07-07] MEDS: clonazePAM 0.5 MG TABLET PO PRN (21:15)
[2016-07-08] MEDS: dilTIAZem HCL 30 MG TABLET (FP) PO SCH ×4 (00:24→17:06)
[2016-07-08] MEDS: MEROPENEM 1 GM in DEXTROSE 5%-WATER - 100 ML IVPB SCH ×2 (02:09→09:09)
[2016-07-08] MEDS: ACETAMINOPHEN 325 MG TABLET (FP) PO PRN ×2 (02:14→14:38)
[2016-07-08] MEDS: INSULIN SLIDING SCALE (NOVOLOG) 1 VIAL SQ SCH ×4 (06:12→21:28)
[2016-07-08] MEDS: hydrALAZINE HCL 10 MG TABLET PO SCH ×3 (06:12→21:26)
[2016-07-08 06:30] LABS: CALCIUM 8.3 mg/dL (8.5-10.1); COCKROFT - GAULT 98.073; CREATININE 0.4 mg/dL (0.55-1.02)
[2016-07-08 06:31] LABS: BASOPHIL 0.2 % (0-2.0); MCH 27.6 pg (25.7-33.7); MCHC 31.8 g/dl (32.0-36.0); MEAN CELL VOLUME 86.8 fl (80-96); MEAN PLT VOLUME 8.5 fl (7.5-11.1); NEUTROPHILS 93.3 % (42.8-82.8); PLATELET COUNT 159 K/MM3 (134-434); WHITE BLOOD COUNT 11.1 K/mm3 (4.0-10.0)
[2016-07-08] MEDS: ALBUTEROL SO4 2.5/IPRATROPIUM 0.5 INH SOL 3 ML VIAL.NEB. NEB SCH ×4 (06:43→23:18)
[2016-07-08 08:59] LABS: ANISOCYTOSIS 2+; HYPOCHROMIA 1+; MICROCYTOSIS 1+; PLATELET ESTIMATE DECREASED (NORMAL); POLYCHROMASIA FEW
[2016-07-08] MEDS ORDERED: PT OWN MED DRAWER 7, Y5N ONE (09:06)
[2016-07-08] MEDS: FUROSEMIDE 40 MG TABLET (FP) PO SCH (09:09)
[2016-07-08] MEDS: predniSONE 20 MG TABLET (UD) PO SCH ×2 (09:09→21:26)
[2016-07-08] MEDS: PANTOPRAZOLE 40 MG TABLET (FP) PO SCH ×2 (09:09→21:27)
--- NOTE | 2016-07-08 09:11 | PN ---
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, Physician Chief Complaint: remains extubated. Denies chest pain or SOB - Current Medication List Current Medications: Active Medications Acetaminophen (Tylenol -) 650 mg PO Q4H PRN PRN Reason: FEVER OR PAIN Last Admin: 07/08/16 02:14 Dose: 650 mg Albuterol/Ipratropium (Duoneb -) 1 amp NEB QIDR [facility] Last Admin: 07/08/16 06:43 Dose: 1 amp Atorvastatin Calcium (Lipitor -) 80 mg PO HS [facility] Last Admin: 07/07/16 21:16 Dose: 80 mg Budesonide/Formoterol Fumarate (Symbicort 160/4.5mcg -) 2 puff IH BID [facility] Last Admin: 07/07/16 22:24 Dose: 2 inh Clonazepam (Klonopin -) 0.5 mg PO Q12H PRN PRN Reason: ANXIETY Last Admin: 07/07/16 21:15 Dose: 0.5 mg Diltiazem HCl (Cardizem Injection -) 10 mg IVPUSH Q4H PRN PRN Reason: TACHYCARDIA Diltiazem HCl (Cardizem -) 90 mg PO Q6HPO [facility] Last Admin: 07/08/16 06:12 Dose: Not Given Furosemide (Lasix -) 40 mg PO DAILY [facility] Last Admin: 07/08/16 09:09 Dose: 40 mg Hydralazine HCl (Apresoline -) 10 mg PO TID [facility] Last Admin: 07/08/16 06:12 Dose: Not Given Meropenem 1 gm/ Dextrose 100 mls @ 100 mls/hr IVPB Q8H-IV [facility] PRN Reason: Protocol Last Admin: 07/08/16 09:09 Dose: Not Given Insulin Aspart (Novolog Vial Sliding Scale -) 1 vial SQ ACHS [facility] PRN Reason: Protocol Last Admin: 07/08/16 06:12 Dose: Not Given Insulin Detemir (Levemir Vial) 5 units SQ [facility] Last Admin: 07/07/16 21:16 Dose: 5 units Morphine Sulfate (Morphine Injection -) 2 mg IVPUSH Q3H PRN PRN Reason: PAIN Nitroglycerin (Nitrostat -) 0.4 mg SL Q5M PRN PRN Reason: FOR CHEST PAIN Pantoprazole Sodium (Protonix -) 40 mg PO BID [facility] Last Admin: 07/08/16 09:09 Dose: 40 mg Prednisone (Deltasone -) 20 mg PO BID [facility] Last Admin: 07/08/16 09:09 Dose: 20 mg - Objective Vital Signs: Vital Signs Temperature 98.0 F 07/08/16 05:00 Pulse Rate 82 07/08/16 07:00 Respiratory Rate 21 07/08/16 07:00 Blood Pressure 148/48 07/08/16 07:00 O2 Sat by Pulse Oximetry (%) 94 L 07/07/16 22:00 Constitutional: Yes: No Distress Cardiovascular: Yes: Regular Rate and Rhythm Respiratory: Yes: Other (b/l rhonchi and decreased breath sounds at bases) Gastrointestinal: Yes: Soft Edema: No (venodynes in place) Neurological: Yes: Alert ...Motor Strength: WNL Labs: CBC, BMP 07/08/16 05:15 07/08/16 05:15 INR, PTT INR 1.02 (0.82-1.09) 06/09/16 05:05 Assessment/Plan Recurrent acute respiratory failure requiring re-intubation, refused trach first intubation Bilateral PNA Anemia PSVT and PAF CAD s/p NSTEMI Mild COPD REC: Remains extubated Off ASA now, due to anemia Cont. Cardizem 90mg po q6h for PSVT suppression High risk for anticoagulation (for PAF) due to traumatic subdural hematoma and anemia with guaiac + stool. Agree with Lasix- b/l effusions on CXR
[2016-07-08] MEDS: BUDESONIDE/FORMETEROL FUMARATE 160/4.5 mcg INHALER IH SCH ×2 (09:14→21:29)
--- NOTE | 2016-07-08 11:26 | PN ---
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, TRADE SHOW SPECIALIST - Note 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: Selected Entries 07/07/16 07/07/16 07/07/16 02:00 06:00 08:49 Breakfast 50% Supper Temperature 97.6 F 97.4 F L 97.9 F 07/07/16 07/07/16 07/07/16 13:00 18:00 20:06 Breakfast Supper 25% 25% Temperature 98 F 07/07/16 07/07/16 07/08/16 22:00 23:00 03:00 Breakfast Supper 25% Temperature 98.3 F 98.5 F 07/08/16 07/08/16 07/08/16 05:00 09:00 09:33 Breakfast 75% Supper Temperature 98.0 F 97.4 F L Allowqing staff to assist more. Accepted good breakfast with overt tolerance per CHEF'S ASSISTANT. Responses are consistently vague. Eg Breakfast? "stuff" Suspect impaired cognitition, insight, memory.Last weak, pt was euphoric-like, with disinhibited inappropriate comments. Now more withdrawn but better than yesterday. Competance ? Pt is a full code. Consider f/u by psych
--- NOTE | 2016-07-08 12:44 | PN ---
Teaching Attending Note Name of Resident: Griffin Bell ATTENDING PHYSICIAN STATEMENT I saw and evaluated the patient. I reviewed the resident's note and discussed the case with the resident. I agree with the resident's findings and plan as documented. SUBJECTIVE: Patient seen and examined in the ICU. Remains extubated. Awake and responsive. Has been more withdrawn. She has been intermittently refusing her PO meds and intermittently she has been refusing to keep on her O2 and NIPPV. Poor PO intake noted. Intake & Output 07/05/16 07/06/16 07/07/16 07/08/16 23:59 23:59 23:59 23:59 Intake Total 400 60 730 540 Output Total 2200 900 2100 Balance -1800 -840 -1370 540 Weight 108 lb 11.006 oz 110 lb 0.171 oz 109 lb 111 lb Last Vital Signs Temp Pulse Resp BP Pulse Ox 97.4 F L 83 24 157/64 96 07/08/16 09:00 07/08/16 12:02 07/08/16 09:00 07/08/16 09:00 07/08/16 12:02 Active Medications Acetaminophen (Tylenol -) 650 mg PO Q4H PRN PRN Reason: FEVER OR PAIN Last Admin: 07/08/16 02:14 Dose: 650 mg Albuterol/Ipratropium (Duoneb -) 1 amp NEB QIDR [facility] Last Admin: 07/08/16 11:15 Dose: 1 amp Atorvastatin Calcium (Lipitor -) 80 mg PO HS [facility] Last Admin: 07/07/16 21:16 Dose: 80 mg Budesonide/Formoterol Fumarate (Symbicort 160/4.5mcg -) 2 puff IH BID [facility] Last Admin: 07/08/16 09:14 Dose: 2 puff Clonazepam (Klonopin -) 0.5 mg PO Q12H PRN PRN Reason: ANXIETY Last Admin: 07/07/16 21:15 Dose: 0.5 mg Diltiazem HCl (Cardizem Injection -) 10 mg IVPUSH Q4H PRN PRN Reason: TACHYCARDIA Diltiazem HCl (Cardizem -) 90 mg PO Q6HPO [facility] Last Admin: 07/08/16 12:17 Dose: 90 mg Furosemide (Lasix -) 40 mg PO DAILY [facility] Last Admin: 07/08/16 09:09 Dose: 40 mg Hydralazine HCl (Apresoline -) 10 mg PO TID [facility] Last Admin: 07/08/16 06:12 Dose: Not Given Meropenem 1 gm/ Dextrose 100 mls @ 100 mls/hr IVPB Q8H-IV [facility] PRN Reason: Protocol Last Admin: 07/08/16 09:09 Dose: Not Given Insulin Aspart (Novolog Vial Sliding Scale -) 1 vial SQ ACHS [facility] PRN Reason: Protocol Last Admin: 07/08/16 12:16 Dose: 8 units Insulin Detemir (Levemir Vial) 5 units SQ HS [facility] Last Admin: 07/07/16 21:16 Dose: 5 units Morphine Sulfate (Morphine Injection -) 2 mg IVPUSH Q3H PRN PRN Reason: PAIN Nitroglycerin (Nitrostat -) 0.4 mg SL Q5M PRN PRN Reason: FOR CHEST PAIN Pantoprazole Sodium (Protonix -) 40 mg PO BID [facility] Last Admin: 07/08/16 09:09 Dose: 40 mg Prednisone (Deltasone -) 20 mg PO BID [facility] Last Admin: 07/08/16 09:09 Dose: 20 mg Gen: Awake and alert, mildly tachypneic at rest Heart: RRR Lung: scattered rhonchi Abd: soft, nontender Ext: trace edema Laboratory Results - last 24 hr 07/07/16 07/08/16 07/08/16 20:55 05:15 05:15 WBC 11.1 H RBC 3.32 L Hgb 9.2 L Hct 28.8 L MCV 86.8 MCHC 31.8 L RDW 22.0 H Plt Count 159 MPV 8.5 Neutrophils % 93.3 H Lymphocytes % 4.3 L D Monocytes % 2.2 L Eosinophils % 0.0 Basophils % 0.2 Platelet Estimate Decreased Platelet Comment No clumping noted Polychromasia Few Hypochromic-Microcytic 1+ Basophilic Stippling Few Anisocytosis 2+ Microcytosis 1+ Sodium 139 Potassium 4.1 Chloride 94 L Carbon Dioxide 36 H Anion Gap 9 BUN 12 Creatinine 0.4 L D POC Glucometer [phone] Random Glucose 207 H D Calcium 8.3 L 07/08/16 07/08/16 05:32 12:14 WBC RBC Hgb Hct MCV MCHC RDW Plt Count MPV Neutrophils % Lymphocytes % Monocytes % Eosinophils % Basophils % Platelet Estimate Platelet Comment Polychromasia Hypochromic-Microcytic Basophilic Stippling Anisocytosis Microcytosis Sodium Potassium Chloride Carbon Dioxide Anion Gap BUN Creatinine POC Glucometer [phone] Random Glucose Calcium ASSESSMENT AND PLAN: Acute on Chronic Hypoxic and Hypercapneic Respiratory Failure Influenza A s/p treatment Pneumonia - ?Aspiration Acute COPD Exacerbation CAD +Troponins/Acute NSTEMI h/o Breast Ca 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
--- NOTE | 2016-07-08 14:15 | PN ---
Physical Exam: SUBJECTIVE: Patient seen and examined Patient states she took medications and also ate her breakfast. states she used bipap in night. denies chest pain, sob, nausea, vomiting OBJECTIVE: Vital Signs Period Temp Pulse Resp BP Sys/Rasheed Pulse Ox Last 24 Hr 97.4 F-98.5 F 80-92 19-24 110-157/48-99 94-96 GENERAL: The patient is awake, alert, and fully oriented HEAD: Normal with no signs of trauma.. ENT:, dry mucous membranes. NECK: Trachea midline, full range of motion, supple. LUNGS: Breath sounds equal, rales decreased, no wheez. HEART: s1s2 normal. ABDOMEN: Soft, nontender, nondistended, normoactive bowel sounds, no guarding, no rebound, EXTREMITIES: 2+ pulses, warm, well-perfused, edema 1+ PSYCH: Normal mood, normal affect. SKIN: Warm, dry, Laboratory Results - last 24 hr 07/07/16 07/08/16 07/08/16 20:55 05:15 05:15 WBC 11.1 H RBC 3.32 L Hgb 9.2 L Hct 28.8 L MCV 86.8 MCHC 31.8 L RDW 22.0 H Plt Count 159 MPV 8.5 Neutrophils % 93.3 H Lymphocytes % 4.3 L D Monocytes % 2.2 L Eosinophils % 0.0 Basophils % 0.2 Platelet Estimate Decreased Platelet Comment No clumping noted Polychromasia Few Hypochromic-Microcytic 1+ Basophilic Stippling Few Anisocytosis 2+ Microcytosis 1+ Sodium 139 Potassium 4.1 Chloride 94 L Carbon Dioxide 36 H Anion Gap 9 BUN 12 Creatinine 0.4 L D POC Glucometer [phone] Random Glucose 207 H D Calcium 8.3 L 07/08/16 07/08/16 05:32 12:14 WBC RBC Hgb Hct MCV MCHC RDW Plt Count MPV Neutrophils % Lymphocytes % Monocytes % Eosinophils % Basophils % Platelet Estimate Platelet Comment Polychromasia Hypochromic-Microcytic Basophilic Stippling Anisocytosis Microcytosis Sodium Potassium Chloride Carbon Dioxide Anion Gap BUN Creatinine POC Glucometer [phone] Random Glucose Calcium Active Medications Generic Name Dose Route Start Last Admin Trade Name Freq PRN Reason Stop Dose Admin Acetaminophen 650 mg 07/05/16 18:25 07/08/16 02:14 Tylenol - PO 650 mg Q4H PRN Administration FEVER OR PAIN Albuterol/Ipratropium 1 amp 07/06/16 13:45 07/08/16 11:15 Duoneb - NEB 1 amp QIDR [facility] Administration Atorvastatin Calcium 80 mg 07/05/16 22:00 07/07/16 21:16 Lipitor - PO 80 mg HS [facility] Administration Budesonide/Formoterol Fumarate 2 puff 07/05/16 22:00 07/08/16 09:14 Symbicort 160/4.5mcg - IH 2 puff BID [facility] Administration Clonazepam 0.5 mg 07/07/16 18:59 07/07/16 21:15 Klonopin - PO 0.5 mg Q12H PRN Administration ANXIETY Diltiazem HCl 10 mg 07/05/16 18:25 Cardizem Injection - IVPUSH Q4H PRN TACHYCARDIA Diltiazem HCl 90 mg 07/06/16 00:00 07/08/16 12:17 Cardizem - PO 90 mg Q6HPO [facility] Administration Furosemide 40 mg 07/06/16 10:00 07/08/16 09:09 Lasix - PO 40 mg DAILY [facility] Administration Hydralazine HCl 10 mg 07/05/16 22:00 07/08/16 06:12 Apresoline - PO Not Given TID [facility] Meropenem 1 gm/ Dextrose 100 mls @ 100 mls/hr 07/06/16 02:00 07/08/16 09:09 IVPB Not Given Q8H-IV [facility] Protocol Insulin Aspart 1 vial 07/05/16 22:00 07/08/16 12:16 Novolog Vial Sliding Scale - SQ 8 units ACHS [facility] Administration Protocol Insulin Detemir 5 units 07/05/16 22:00 07/07/16 21:16 Levemir Vial SQ 5 units HS [facility] Administration Morphine Sulfate 2 mg 07/05/16 18:25 Morphine Injection - IVPUSH Q3H PRN PAIN Nitroglycerin 0.4 mg 07/05/16 18:25 Nitrostat - SL Q5M PRN FOR CHEST PAIN Pantoprazole Sodium 40 mg 07/05/16 12:30 07/08/16 09:09 Protonix - PO 40 mg BID [facility] Administration Prednisone 20 mg 07/05/16 12:30 07/08/16 09:09 Deltasone - PO 20 mg BID [facility] Administration ASSESSMENT/PLAN: acute hypercapneic respiratory failure due to aspiration pneumonia , on 3 L NC oxygen alt with bipap, keep spo2 over 90 Nebulizers [facility] and PRN on prednisone 20 bid sputum : psudomonas, urine citrobacter koseri ID on case on lasix 40 po daily refuses IV meds. hyperkalemia resolved diarrhoea resolved c diff toxin negative Shock improved could be from aspiration pneumonia altered mental status resolved could be from metabolic encephalopathy H/O HTN/ afib continue hydralazine 10 tid on cardiazem 90mg q6h asprin on hold in view of lower gi bleed h/o copd on duoneb onprednisone 20mg bid DM on sliding scale novalog monitor bgm influenza positive completed a course of tamiflue Microcytic anemia hb stable FEN electrolyet follow in am patient on dysphagia puree Prophylaxis DVT: scd b/l GI: ppi po bid dispo : transfer to tele Visit type - Emergency Visit Emergency Visit: Yes ED Registration Date: 05/30/16 Care time: The patient presented to the Emergency Department on the above date and was hospitalized for further evaluation of their emergent condition. - New Patient This patient is new to me today: No - Critical Care Critical Care patient: Yes Total Critical Care Time (in minutes): 45 Critical Care Statement: The care of this patient involved high complexity decision making to prevent further life threatening deterioration of the patient 's condition and/or to evalute & treat vital organ system(s) failure or risk of failure.
--- NOTE | 2016-07-08 15:59 | PN ---
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, Physician History of Present Illness: patient stable no new issues patient is refusing iv medicine still coughing - Current Medication List Current Medications: Active Medications Acetaminophen (Tylenol -) 650 mg PO Q4H PRN PRN Reason: FEVER OR PAIN Last Admin: 07/08/16 14:38 Dose: 650 mg Albuterol/Ipratropium (Duoneb -) 1 amp NEB QIDR [facility] Last Admin: 07/08/16 11:15 Dose: 1 amp Atorvastatin Calcium (Lipitor -) 80 mg PO HS [facility] Last Admin: 07/07/16 21:16 Dose: 80 mg Budesonide/Formoterol Fumarate (Symbicort 160/4.5mcg -) 2 puff IH BID [facility] Last Admin: 07/08/16 09:14 Dose: 2 puff Clonazepam (Klonopin -) 0.5 mg PO Q12H PRN PRN Reason: ANXIETY Last Admin: 07/07/16 21:15 Dose: 0.5 mg Diltiazem HCl (Cardizem Injection -) 10 mg IVPUSH Q4H PRN PRN Reason: TACHYCARDIA Diltiazem HCl (Cardizem -) 90 mg PO Q6HPO [facility] Last Admin: 07/08/16 12:17 Dose: 90 mg Furosemide (Lasix -) 40 mg PO DAILY [facility] Last Admin: 07/08/16 09:09 Dose: 40 mg Hydralazine HCl (Apresoline -) 10 mg PO TID [facility] Last Admin: 07/08/16 14:39 Dose: 10 mg Meropenem 1 gm/ Dextrose 100 mls @ 100 mls/hr IVPB Q8H-IV [facility] PRN Reason: Protocol Last Admin: 07/08/16 09:09 Dose: Not Given Insulin Aspart (Novolog Vial Sliding Scale -) 1 vial SQ ACHS [facility] PRN Reason: Protocol Last Admin: 07/08/16 12:16 Dose: 8 units Insulin Detemir (Levemir Vial) 5 units SQ [facility] Last Admin: 07/07/16 21:16 Dose: 5 units Levofloxacin (Levaquin -) 750 mg PO DAILY [facility] Morphine Sulfate (Morphine Injection -) 2 mg IVPUSH Q3H PRN PRN Reason: PAIN Nitroglycerin (Nitrostat -) 0.4 mg SL Q5M PRN PRN Reason: FOR CHEST PAIN Pantoprazole Sodium (Protonix -) 40 mg PO BID [facility] Last Admin: 07/08/16 09:09 Dose: 40 mg Prednisone (Deltasone -) 20 mg PO BID [facility] Last Admin: 07/08/16 09:09 Dose: 20 mg - Objective Vital Signs: Vital Signs Temperature 97.4 F L 07/08/16 09:00 Pulse Rate 83 07/08/16 12:02 Respiratory Rate 26 H 07/08/16 12:00 Blood Pressure 152/66 07/08/16 12:00 O2 Sat by Pulse Oximetry (%) 96 07/08/16 12:02 Constitutional: Yes: No Distress, Calm Cardiovascular: Yes: Regular Rate and Rhythm Respiratory: Yes: Regular, On BiPap, On Nasal O2, Poor Air Entry, Rhonchi Gastrointestinal: Yes: Normal Bowel Sounds, Soft Musculoskeletal: Yes: WNL Extremities: Yes: WNL Neurological: Yes: Alert, Oriented Psychiatric: Yes: Alert, Oriented Labs: CBC, BMP 07/08/16 05:15 07/08/16 05:15 INR, PTT INR 1.02 (0.82-1.09) 06/09/16 05:05 Assessment/Plan Problem List - Problems (1) Aortic stenosis Code(s): I35.0 - NONRHEUMATIC AORTIC (VALVE) STENOSIS (2) History of PSVT (paroxysmal supraventricular tachycardia) Code(s): Z86.79 - PERSONAL HISTORY OF OTHER DISEASES OF THE CIRCULATORY SYSTEM (3) NSTEMI (non-ST elevated myocardial infarction) Code(s): I21.4 - NON-ST ELEVATION (NSTEMI) MYOCARDIAL INFARCTION (4) Respiratory failure Code(s): J96.90 - RESPIRATORY FAILURE, UNSP, UNSP W HYPOXIA OR HYPERCAPNIA Qualifiers: Chronicity: acute Respiratory failure complication: hypoxia and hypercapnia Qualified Code(s): J96.01 - Acute respiratory failure with hypoxia (5) Pulmonary hypertension Code(s): I27.2 - OTHER SECONDARY PULMONARY HYPERTENSION (6) Pulmonary nodules Code(s): R91.8 - OTHER NONSPECIFIC ABNORMAL FINDING OF LUNG FIELD (7) COPD (chronic obstructive pulmonary disease) Code(s): J44.9 - CHRONIC OBSTRUCTIVE PULMONARY DISEASE, UNSPECIFIED (8) History of cigarette smoking Code(s): Z87.891 - PERSONAL HISTORY OF NICOTINE DEPENDENCE (9) Acute on chronic respiratory failure with hypoxia and hypercapnia Code(s): J96.21 - ACUTE AND CHRONIC RESPIRATORY FAILURE WITH HYPOXIA J96.22 - ACUTE AND CHRONIC RESPIRATORY FAILURE WITH HYPERCAPNIAEPENDENCE +Troponins/Acute NSTEMI Lactic Acidosis h/o Breast Ca Lung Nodules with recent biopsy showing necrotizing granulomas Smoker pseudomonas pneumonia uti plan wbc is increasing patient refusin iv abx so had to change to oral continue as per pul/icu continue to monitor aspiration precautions incentive byron cc 40 min
[2016-07-08] MEDS ORDERED: morphine CARPU-JECT 2 MG/1 ML DISP.SYRIN IVPUSH PRN (16:28)
[2016-07-08] MEDS ORDERED: NITROGLYCERIN SUBLINGUAL 1/150 0.4 MG TAB SL PRN (16:28)
[2016-07-08] MEDS ORDERED: dilTIAZem HCL 50 MG/10 ML - 10 ML VIAL IVPUSH PRN (16:28)
[2016-07-08] MEDS ORDERED: INSULIN (NOVOLOG MIX 70/30) 100 UNITS/ML MDV SQ ONE (16:50)
[2016-07-08] MEDS: LEVOFLOXACIN 250 MG TABLET (FP) PO SCH (17:07)
--- NOTE | 2016-07-08 20:11 | PN ---
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, Physician History of Present Illness: on face mask alert talking - Current Medication List Current Medications: Active Medications Acetaminophen (Tylenol -) 650 mg PO Q4H PRN PRN Reason: FEVER OR PAIN Albuterol/Ipratropium (Duoneb -) 1 amp NEB QIDR [facility] Last Admin: 07/08/16 17:21 Dose: 1 amp Atorvastatin Calcium (Lipitor -) 80 mg PO HS [facility] Budesonide/Formoterol Fumarate (Symbicort 160/4.5mcg -) 2 puff IH BID [facility] Clonazepam (Klonopin -) 0.5 mg PO Q12H PRN PRN Reason: ANXIETY Last Admin: 07/07/16 21:15 Dose: 0.5 mg Diltiazem HCl (Cardizem -) 90 mg PO Q6HPO [facility] Last Admin: 07/08/16 17:06 Dose: 90 mg Diltiazem HCl (Cardizem Injection -) 10 mg IVPUSH Q4H PRN PRN Reason: TACHYCARDIA Furosemide (Lasix -) 40 mg PO DAILY [facility] Hydralazine HCl (Apresoline -) 10 mg PO TID [facility] Insulin Aspart (Novolog Vial Sliding Scale -) 1 vial SQ ACHS [facility] PRN Reason: Protocol Last Admin: 07/08/16 17:04 Dose: 4 units Insulin Detemir (Levemir Vial) 5 units SQ HS [facility] Levofloxacin (Levaquin -) 750 mg PO DAILY [facility] Last Admin: 07/08/16 17:07 Dose: 750 mg Morphine Sulfate (Morphine Injection -) 2 mg IVPUSH Q3H PRN PRN Reason: PAIN Nitroglycerin (Nitrostat -) 0.4 mg SL Q5M PRN PRN Reason: FOR CHEST PAIN Pantoprazole Sodium (Protonix -) 40 mg PO BID [facility] Prednisone (Deltasone -) 20 mg PO BID [facility] - Objective Vital Signs: Vital Signs Temperature 97.9 F 07/08/16 18:28 Pulse Rate 89 07/08/16 18:28 Respiratory Rate 24 07/08/16 16:00 Blood Pressure 151/70 07/08/16 18:28 O2 Sat by Pulse Oximetry (%) 94 L 07/08/16 18:58 Constitutional: Yes: No Distress HENT: Yes: Atraumatic Neck: Yes: Supple Cardiovascular: Yes: Regular Rate and Rhythm Respiratory: Yes: CTA Bilaterally Gastrointestinal: Yes: Normal Bowel Sounds Extremities: Yes: WNL Neurological: Yes: Alert, Oriented Labs: CBC, BMP 07/08/16 05:15 07/08/16 05:15 INR, PTT INR 1.02 (0.82-1.09) 06/09/16 05:05 Problem List - Problems (1) Respiratory failure Assessment/Plan: on bipap/nc prn apiration pna on abx..po on steroids Code(s): J96.90 - RESPIRATORY FAILURE, UNSP, UNSP W HYPOXIA OR HYPERCAPNIA Qualifiers: Chronicity: acute Respiratory failure complication: hypoxia and hypercapnia Qualified Code(s): J96.01 - Acute respiratory failure with hypoxia (2) Chronic respiratory failure with hypoxia Assessment/Plan: duo nebs steroids Code(s): J96.11 - CHRONIC RESPIRATORY FAILURE WITH HYPOXIA (3) CAD (coronary artery disease) Assessment/Plan: on meds follow up labs continue current meds Code(s): I25.10 - ATHSCL HEART DISEASE OF [place] CORONARY ARTERY W/O ANG PCTRS (4) COPD (chronic obstructive pulmonary disease) Assessment/Plan: on meds stable steroids duo nebs Code(s): J44.9 - CHRONIC OBSTRUCTIVE PULMONARY DISEASE, UNSPECIFIED (5) Chronic diastolic CHF (congestive heart failure) Assessment/Plan: stable on meds Code(s): I50.32 - CHRONIC DIASTOLIC (CONGESTIVE) HEART FAILURE (6) HLD (hyperlipidemia) Assessment/Plan: on meds Code(s): E78.5 - HYPERLIPIDEMIA, UNSPECIFIED Qualifiers: Hyperlipidemia type: unspecified Qualified Code(s): E78.5 - Hyperlipidemia, unspecified (7) HTN (hypertension) Assessment/Plan: on meds stable Code(s): I10 - ESSENTIAL (PRIMARY) HYPERTENSION Qualifiers: Hypertension type: essential hypertension Qualified Code(s): I10 - Essential (primary) hypertension (8) History of cigarette smoking Code(s): Z87.891 - PERSONAL HISTORY OF NICOTINE DEPENDENCE (9) Influenza Assessment/Plan: on meds id consult Code(s): J11.1 - FLU DUE TO UNIDENTIFIED INFLUENZA VIRUS W OTH RESP MANIFEST (10) Acute on chronic respiratory failure with hypoxia and hypercapnia Code(s): J96.21 - ACUTE AND CHRONIC RESPIRATORY FAILURE WITH HYPOXIA J96.22 - ACUTE AND CHRONIC RESPIRATORY FAILURE WITH HYPERCAPNIA (11) History of PSVT (paroxysmal supraventricular tachycardia) Code(s): Z86.79 - PERSONAL HISTORY OF OTHER DISEASES OF THE CIRCULATORY SYSTEM (12) Anemia Assessment/Plan: hgb stable Code(s): D64.9 - ANEMIA, UNSPECIFIED (13) NSTEMI (non-ST elevated myocardial infarction) Assessment/Plan: acute nstemi stable Code(s): I21.4 - NON-ST ELEVATION (NSTEMI) MYOCARDIAL INFARCTION (14) GI (gastrointestinal bleed) Assessment/Plan: cbc stable Code(s): K92.2 - GASTROINTESTINAL HEMORRHAGE, UNSPECIFIED Assessment/Plan 1.+Influenza treated 2.Acute respiratory failure ON FACE MASK RLL INFILTERATE ON ABX AND DUO NEBS 3.ANEMIA STABLE 4.NSTEMI 5.History breast cancer, lung mass with negative bx 6.COPD, chronic with chronic hypoxemia 7.chf STABLE 8.LOWER GI BLEED...stable s/p blood transfusion FU CBC IV PROTONIX BID 9.DYSPHAGIA REFUSING BARIUM SWALLOW ON DYSPAGIA DIET dc to snf when stable
[2016-07-08] MEDS: INSULIN DETEMIR 100 UNITS/ML MDV SQ SCH (21:27)
[2016-07-08] MEDS: clonazePAM 0.5 MG TABLET PO PRN (21:27)
[2016-07-08] MEDS: ATORVASTATIN CA 80 MG TABLET (FP) PO SCH (21:27)
[2016-07-09] MEDS: ACETAMINOPHEN 325 MG TABLET (FP) PO PRN ×2 (01:22→14:32)
[2016-07-09] MEDS: dilTIAZem HCL 30 MG TABLET (FP) PO SCH ×4 (01:23→17:38)
[2016-07-09] MEDS: ALBUTEROL SO4 2.5/IPRATROPIUM 0.5 INH SOL 3 ML VIAL.NEB. NEB SCH ×4 (06:50→23:22)
[2016-07-09] MEDS: hydrALAZINE HCL 10 MG TABLET PO SCH ×3 (06:54→21:01)
[2016-07-09] MEDS: INSULIN SLIDING SCALE (NOVOLOG) 1 VIAL SQ SCH ×4 (06:55→21:08)
--- NOTE | 2016-07-09 09:01 | PN ---
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, Physician - Current Medication List Current Medications: Active Medications Acetaminophen (Tylenol -) 650 mg PO Q4H PRN PRN Reason: FEVER OR PAIN Last Admin: 07/09/16 01:22 Dose: 650 mg Albuterol/Ipratropium (Duoneb -) 1 amp NEB QIDR [facility] Last Admin: 07/09/16 06:50 Dose: 1 amp Atorvastatin Calcium (Lipitor -) 80 mg PO HS [facility] Last Admin: 07/08/16 21:27 Dose: 80 mg Budesonide/Formoterol Fumarate (Symbicort 160/4.5mcg -) 2 puff IH BID [facility] Last Admin: 07/08/16 21:29 Dose: 2 puff Clonazepam (Klonopin -) 0.5 mg PO Q12H PRN PRN Reason: ANXIETY Last Admin: 07/08/16 21:27 Dose: 0.5 mg Diltiazem HCl (Cardizem -) 90 mg PO Q6HPO [facility] Last Admin: 07/09/16 06:54 Dose: 90 mg Diltiazem HCl (Cardizem Injection -) 10 mg IVPUSH Q4H PRN PRN Reason: TACHYCARDIA Furosemide (Lasix -) 40 mg PO DAILY [facility] Hydralazine HCl (Apresoline -) 10 mg PO TID [facility] Last Admin: 07/09/16 06:54 Dose: 10 mg Insulin Aspart (Novolog Vial Sliding Scale -) 1 vial SQ ACHS [facility] PRN Reason: Protocol Last Admin: 07/09/16 06:55 Dose: 6 units Insulin Detemir (Levemir Vial) 5 units SQ [facility] Last Admin: 07/08/16 21:27 Dose: 5 units Levofloxacin (Levaquin -) 750 mg PO DAILY [facility] Last Admin: 07/08/16 17:07 Dose: 750 mg Morphine Sulfate (Morphine Injection -) 2 mg IVPUSH Q3H PRN PRN Reason: PAIN Nitroglycerin (Nitrostat -) 0.4 mg SL Q5M PRN PRN Reason: FOR CHEST PAIN Pantoprazole Sodium (Protonix -) 40 mg PO BID [facility] Last Admin: 07/08/16 21:27 Dose: 40 mg Prednisone (Deltasone -) 20 mg PO BID [facility] Last Admin: 07/08/16 21:26 Dose: 20 mg - Objective Vital Signs: Vital Signs Temperature 98.3 F 07/09/16 02:00 Pulse Rate 81 07/09/16 06:00 Respiratory Rate 20 07/09/16 06:00 Blood Pressure 141/63 07/09/16 06:00 O2 Sat by Pulse Oximetry (%) 97 07/09/16 01:01 Eyes: Yes: WNL, Conjunctiva Clear, EOM Intact HENT: Yes: WNL, Atraumatic, Normocephalic Neck: Yes: WNL, Supple, Trachea Midline Cardiovascular: Yes: WNL, Regular Rate and Rhythm, Murmur Respiratory: Yes: Diminished Gastrointestinal: Yes: WNL, Normal Bowel Sounds Genitourinary: Yes: WNL Musculoskeletal: Yes: WNL Extremities: Yes: WNL Edema: No Integumentary: Yes: WNL Neurological: Yes: WNL, Alert, Oriented ...Motor Strength: WNL Psychiatric: Yes: WNL Labs: CBC, BMP 07/08/16 05:15 07/08/16 05:15 INR, PTT INR 1.02 (0.82-1.09) 06/09/16 05:05 Assessment/Plan Recurrent acute respiratory failure requiring re-intubation, refused trach first intubation now extubated on telemetry Bilateral PNA Anemia PSVT and PAF CAD s/p NSTEMI Mild COPD REC: Remains extubated Off ASA now, due to anemia Cont. Cardizem 90mg po q6h for PSVT suppression High risk for anticoagulation (for PAF) due to traumatic subdural hematoma and anemia with guaiac + stool. Agree with Lasix- b/l effusions on CXR
[2016-07-09] MEDS: LEVOFLOXACIN 250 MG TABLET (FP) PO SCH (10:00)
[2016-07-09] MEDS: PANTOPRAZOLE 40 MG TABLET (FP) PO SCH ×2 (10:01→21:01)
[2016-07-09] MEDS: clonazePAM 0.5 MG TABLET PO PRN ×2 (10:01→21:01)
[2016-07-09] MEDS: predniSONE 20 MG TABLET (UD) PO SCH ×2 (10:01→21:01)
[2016-07-09] MEDS: BUDESONIDE/FORMETEROL FUMARATE 160/4.5 mcg INHALER IH SCH ×2 (10:01→21:09)
[2016-07-09] MEDS: FUROSEMIDE 40 MG TABLET (FP) PO SCH (10:02)
--- NOTE | 2016-07-09 14:35 | PN ---
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 (short form) - Note 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: Sleeping in NAD on 3 L NC O2. No documented acute events overnight. Intake & Output 07/06/16 07/07/16 07/08/16 07/09/16 23:59 23:59 23:59 23:59 Intake Total 60 730 890 120 Output Total 900 2100 Balance -840 -1370 890 120 Weight 110 lb 0.171 oz 109 lb 111 lb Last Vital Signs Temp Pulse Resp BP Pulse Ox 98.4 F 84 20 130/92 96 07/09/16 08:00 07/09/16 08:00 07/09/16 08:00 07/09/16 08:00 07/09/16 11:10 Active Medications Acetaminophen (Tylenol -) 650 mg PO Q4H PRN PRN Reason: FEVER OR PAIN Last Admin: 07/09/16 01:22 Dose: 650 mg Albuterol/Ipratropium (Duoneb -) 1 amp NEB QIDR [facility] Last Admin: 07/09/16 11:10 Dose: 1 amp Atorvastatin Calcium (Lipitor -) 80 mg PO HS [facility] Last Admin: 07/08/16 21:27 Dose: 80 mg Budesonide/Formoterol Fumarate (Symbicort 160/4.5mcg -) 2 puff IH BID [facility] Last Admin: 07/09/16 10:01 Dose: 2 puff Clonazepam (Klonopin -) 0.5 mg PO Q12H PRN PRN Reason: ANXIETY Last Admin: 07/09/16 10:01 Dose: 0.5 mg Diltiazem HCl (Cardizem -) 90 mg PO Q6HPO [facility] Last Admin: 07/09/16 11:59 Dose: 90 mg Diltiazem HCl (Cardizem Injection -) 10 mg IVPUSH Q4H PRN PRN Reason: TACHYCARDIA Furosemide (Lasix -) 40 mg PO DAILY [facility] Last Admin: 07/09/16 10:02 Dose: 40 mg Hydralazine HCl (Apresoline -) 10 mg PO TID [facility] Last Admin: 07/09/16 06:54 Dose: 10 mg Insulin Aspart (Novolog Vial Sliding Scale -) 1 vial SQ ACHS [facility] PRN Reason: Protocol Last Admin: 07/09/16 11:59 Dose: 6 units Insulin Detemir (Levemir Vial) 5 units SQ [facility] Last Admin: 07/08/16 21:27 Dose: 5 units Levofloxacin (Levaquin -) 750 mg PO DAILY [facility] Last Admin: 07/09/16 10:00 Dose: 750 mg Morphine Sulfate (Morphine Injection -) 2 mg IVPUSH Q3H PRN PRN Reason: PAIN Nitroglycerin (Nitrostat -) 0.4 mg SL Q5M PRN PRN Reason: FOR CHEST PAIN Pantoprazole Sodium (Protonix -) 40 mg PO BID [facility] Last Admin: 07/09/16 10:01 Dose: 40 mg Prednisone (Deltasone -) 20 mg PO BID [facility] Last Admin: 07/09/16 10:01 Dose: 20 mg Gen: Sleeping, mildly tachypneic at rest Heart: RRR Lung: scattered rhonchi Abd: soft Ext: trace edema Laboratory Results - last 24 hr 07/08/16 07/08/16 07/09/16 16:58 21:22 06:18 POC Glucometer 199 266 278 07/09/16 11:58 POC Glucometer 241 ASSESSMENT AND PLAN: Acute on Chronic Hypoxic and Hypercapneic Respiratory Failure Influenza A s/p treatment Pneumonia - ?Aspiration Acute COPD Exacerbation CAD +Troponins/Acute NSTEMI h/o Breast Ca 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
--- NOTE | 2016-07-09 15:08 | PN ---
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, Physician History of Present Illness: stable no new issues breathing well - Current Medication List Current Medications: Active Medications Acetaminophen (Tylenol -) 650 mg PO Q4H PRN PRN Reason: FEVER OR PAIN Last Admin: 07/09/16 14:32 Dose: 650 mg Albuterol/Ipratropium (Duoneb -) 1 amp NEB QIDR [facility] Last Admin: 07/09/16 11:10 Dose: 1 amp Atorvastatin Calcium (Lipitor -) 80 mg PO [facility] Last Admin: 07/08/16 21:27 Dose: 80 mg Budesonide/Formoterol Fumarate (Symbicort 160/4.5mcg -) 2 puff IH BID [facility] Last Admin: 07/09/16 10:01 Dose: 2 puff Clonazepam (Klonopin -) 0.5 mg PO Q12H PRN PRN Reason: ANXIETY Last Admin: 07/09/16 10:01 Dose: 0.5 mg Diltiazem HCl (Cardizem -) 90 mg PO Q6HPO [facility] Last Admin: 07/09/16 11:59 Dose: 90 mg Diltiazem HCl (Cardizem Injection -) 10 mg IVPUSH Q4H PRN PRN Reason: TACHYCARDIA Furosemide (Lasix -) 40 mg PO DAILY [facility] Last Admin: 07/09/16 10:02 Dose: 40 mg Hydralazine HCl (Apresoline -) 10 mg PO TID [facility] Last Admin: 07/09/16 14:32 Dose: 10 mg Insulin Aspart (Novolog Vial Sliding Scale -) 1 vial SQ [facility] PRN Reason: Protocol Last Admin: 07/09/16 11:59 Dose: 6 units Insulin Detemir (Levemir Vial) 5 units SQ [facility] Last Admin: 07/08/16 21:27 Dose: 5 units Levofloxacin (Levaquin -) 750 mg PO DAILY [facility] Last Admin: 07/09/16 10:00 Dose: 750 mg Morphine Sulfate (Morphine Injection -) 2 mg IVPUSH Q3H PRN PRN Reason: PAIN Nitroglycerin (Nitrostat -) 0.4 mg SL Q5M PRN PRN Reason: FOR CHEST PAIN Pantoprazole Sodium (Protonix -) 40 mg PO BID [facility] Last Admin: 07/09/16 10:01 Dose: 40 mg Prednisone (Deltasone -) 20 mg PO BID [facility] Last Admin: 04/29/17 10:01 Dose: 20 mg - Objective Vital Signs: Vital Signs Temperature 98.4 F 07/09/16 08:00 Pulse Rate 84 07/09/16 08:00 Respiratory Rate 20 07/09/16 08:00 Blood Pressure 130/92 07/09/16 08:00 O2 Sat by Pulse Oximetry (%) 96 07/09/16 11:10 Constitutional: Yes: No Distress, Calm Cardiovascular: Yes: Regular Rate and Rhythm Respiratory: Yes: Regular, Rhonchi Gastrointestinal: Yes: Normal Bowel Sounds, Soft Musculoskeletal: Yes: WNL Extremities: Yes: WNL Neurological: Yes: Alert, Oriented Psychiatric: Yes: Alert, Oriented Labs: CBC, BMP 07/08/16 05:15 07/08/16 05:15 INR, PTT INR 1.02 (0.82-1.09) 06/09/16 05:05 Assessment/Plan Problem List - Problems (1) Aortic stenosis Code(s): I35.0 - NONRHEUMATIC AORTIC (VALVE) STENOSIS (2) History of PSVT (paroxysmal supraventricular tachycardia) Code(s): Z86.79 - PERSONAL HISTORY OF OTHER DISEASES OF THE CIRCULATORY SYSTEM (3) NSTEMI (non-ST elevated myocardial infarction) Code(s): I21.4 - NON-ST ELEVATION (NSTEMI) MYOCARDIAL INFARCTION (4) Respiratory failure Code(s): J96.90 - RESPIRATORY FAILURE, UNSP, UNSP W HYPOXIA OR HYPERCAPNIA Qualifiers: Chronicity: acute Respiratory failure complication: hypoxia and hypercapnia Qualified Code(s): J96.01 - Acute respiratory failure with hypoxia (5) Pulmonary hypertension Code(s): I27.2 - OTHER SECONDARY PULMONARY HYPERTENSION (6) Pulmonary nodules Code(s): R91.8 - OTHER NONSPECIFIC ABNORMAL FINDING OF LUNG FIELD (7) COPD (chronic obstructive pulmonary disease) Code(s): J44.9 - CHRONIC OBSTRUCTIVE PULMONARY DISEASE, UNSPECIFIED (8) History of cigarette smoking Code(s): Z87.891 - PERSONAL HISTORY OF NICOTINE DEPENDENCE (9) Acute on chronic respiratory failure with hypoxia and hypercapnia Code(s): J96.21 - ACUTE AND CHRONIC RESPIRATORY FAILURE WITH HYPOXIA J96.22 - ACUTE AND CHRONIC RESPIRATORY FAILURE WITH HYPERCAPNIAEPENDENCE +Troponins/Acute NSTEMI Lactic Acidosis h/o Breast Ca 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
--- NOTE | 2016-07-09 18:09 | PN ---
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, Physician History of Present Illness: no complaints - Current Medication List Current Medications: Active Medications Acetaminophen (Tylenol -) 650 mg PO Q4H PRN PRN Reason: FEVER OR PAIN Last Admin: 07/09/16 14:32 Dose: 650 mg Albuterol/Ipratropium (Duoneb -) 1 amp NEB QIDR [facility] Last Admin: 07/09/16 17:22 Dose: 1 amp Atorvastatin Calcium (Lipitor -) 80 mg PO HS [facility] Last Admin: 07/08/16 21:27 Dose: 80 mg Budesonide/Formoterol Fumarate (Symbicort 160/4.5mcg -) 2 puff IH BID [facility] Last Admin: 07/09/16 10:01 Dose: 2 puff Clonazepam (Klonopin -) 0.5 mg PO Q12H PRN PRN Reason: ANXIETY Last Admin: 07/09/16 10:01 Dose: 0.5 mg Diltiazem HCl (Cardizem -) 90 mg PO Q6HPO [facility] Last Admin: 07/09/16 17:38 Dose: 90 mg Diltiazem HCl (Cardizem Injection -) 10 mg IVPUSH Q4H PRN PRN Reason: TACHYCARDIA Furosemide (Lasix -) 40 mg PO DAILY [facility] Last Admin: 07/09/16 10:02 Dose: 40 mg Hydralazine HCl (Apresoline -) 10 mg PO TID [facility] Last Admin: 07/09/16 14:32 Dose: 10 mg Insulin Aspart (Novolog Vial Sliding Scale -) 1 vial SQ [facility] PRN Reason: Protocol Last Admin: 07/09/16 17:21 Dose: 6 units Insulin Detemir (Levemir Vial) 5 units SQ [facility] Last Admin: 07/08/16 21:27 Dose: 5 units Levofloxacin (Levaquin -) 750 mg PO DAILY [facility] Last Admin: 07/09/16 10:00 Dose: 750 mg Morphine Sulfate (Morphine Injection -) 2 mg IVPUSH Q3H PRN PRN Reason: PAIN Nitroglycerin (Nitrostat -) 0.4 mg SL Q5M PRN PRN Reason: FOR CHEST PAIN Pantoprazole Sodium (Protonix -) 40 mg PO BID [facility] Last Admin: 07/09/16 10:01 Dose: 40 mg Prednisone (Deltasone -) 20 mg PO BID [facility] Last Admin: 07/09/16 10:01 Dose: 20 mg - Objective Vital Signs: Vital Signs Temperature 98 F 07/09/16 14:15 Pulse Rate 92 H 07/09/16 14:15 Respiratory Rate 20 07/09/16 14:15 Blood Pressure 131/79 07/09/16 14:15 O2 Sat by Pulse Oximetry (%) 98 07/09/16 17:21 Constitutional: Yes: Calm HENT: Yes: Atraumatic Neck: Yes: Supple Cardiovascular: Yes: Regular Rate and Rhythm Respiratory: Yes: CTA Bilaterally Gastrointestinal: Yes: Normal Bowel Sounds Extremities: Yes: WNL Neurological: Yes: Alert, Oriented Labs: CBC, BMP 07/08/16 05:15 07/08/16 05:15 INR, PTT INR 1.02 (0.82-1.09) 06/09/16 05:05 Problem List - Problems (1) Respiratory failure Assessment/Plan: on bipap/nc prn apiration pna on abx..po on steroids..taper Code(s): J96.90 - RESPIRATORY FAILURE, UNSP, UNSP W HYPOXIA OR HYPERCAPNIA Qualifiers: Chronicity: acute Respiratory failure complication: hypoxia and hypercapnia Qualified Code(s): J96.01 - Acute respiratory failure with hypoxia (2) Chronic respiratory failure with hypoxia Assessment/Plan: duo nebs steroids Code(s): J96.11 - CHRONIC RESPIRATORY FAILURE WITH HYPOXIA (3) CAD (coronary artery disease) Assessment/Plan: on meds follow up labs continue current meds Code(s): I25.10 - ATHSCL HEART DISEASE OF [place] CORONARY ARTERY W/O ANG PCTRS (4) COPD (chronic obstructive pulmonary disease) Assessment/Plan: on meds stable steroids duo nebs Code(s): J44.9 - CHRONIC OBSTRUCTIVE PULMONARY DISEASE, UNSPECIFIED (5) Chronic diastolic CHF (congestive heart failure) Assessment/Plan: stable on meds Code(s): I50.32 - CHRONIC DIASTOLIC (CONGESTIVE) HEART FAILURE (6) HLD (hyperlipidemia) Assessment/Plan: on meds Code(s): E78.5 - HYPERLIPIDEMIA, UNSPECIFIED Qualifiers: Hyperlipidemia type: unspecified Qualified Code(s): E78.5 - Hyperlipidemia, unspecified (7) HTN (hypertension) Assessment/Plan: on meds stable Code(s): I10 - ESSENTIAL (PRIMARY) HYPERTENSION Qualifiers: Hypertension type: essential hypertension Qualified Code(s): I10 - Essential (primary) hypertension (8) History of cigarette smoking Code(s): Z87.891 - PERSONAL HISTORY OF NICOTINE DEPENDENCE (9) Influenza Assessment/Plan: on meds id consult Code(s): J11.1 - FLU DUE TO UNIDENTIFIED INFLUENZA VIRUS W OTH RESP MANIFEST (10) Acute on chronic respiratory failure with hypoxia and hypercapnia Code(s): J96.21 - ACUTE AND CHRONIC RESPIRATORY FAILURE WITH HYPOXIA J96.22 - ACUTE AND CHRONIC RESPIRATORY FAILURE WITH HYPERCAPNIA (11) History of PSVT (paroxysmal supraventricular tachycardia) Code(s): Z86.79 - PERSONAL HISTORY OF OTHER DISEASES OF THE CIRCULATORY SYSTEM (12) Anemia Assessment/Plan: hgb stable Code(s): D64.9 - ANEMIA, UNSPECIFIED (13) NSTEMI (non-ST elevated myocardial infarction) Assessment/Plan: acute nstemi stable Code(s): I21.4 - NON-ST ELEVATION (NSTEMI) MYOCARDIAL INFARCTION (14) GI (gastrointestinal bleed) Assessment/Plan: cbc stable Code(s): K92.2 - GASTROINTESTINAL HEMORRHAGE, UNSPECIFIED Assessment/Plan 1.+Influenza treated 2.Acute respiratory failure ON FACE MASK RLL INFILTERATE ON ABX AND DUO NEBS 3.ANEMIA STABLE 4.NSTEMI 5.History breast cancer, lung mass with negative bx 6.COPD, chronic with chronic hypoxemia 7.chf STABLE 8.LOWER GI BLEED...stable s/p blood transfusion FU CBC IV PROTONIX BID 9.DYSPHAGIA REFUSING BARIUM SWALLOW ON DYSPAGIA DIET dc to snf when stable
[2016-07-09] MEDS ORDERED: PT OWN MED DRAWER 7, Y5N ONE ×2 (18:22→21:12)
[2016-07-09] MEDS: ATORVASTATIN CA 80 MG TABLET (FP) PO SCH (21:02)
[2016-07-09] MEDS: INSULIN DETEMIR 100 UNITS/ML MDV SQ SCH (21:10)
[2016-07-10] MEDS: dilTIAZem HCL 30 MG TABLET (FP) PO SCH ×4 (00:56→17:25)
[2016-07-10] MEDS: hydrALAZINE HCL 10 MG TABLET PO SCH ×3 (05:57→21:24)
[2016-07-10] MEDS: INSULIN SLIDING SCALE (NOVOLOG) 1 VIAL SQ SCH ×4 (06:03→21:25)
[2016-07-10] MEDS: ALBUTEROL SO4 2.5/IPRATROPIUM 0.5 INH SOL 3 ML VIAL.NEB. NEB SCH ×4 (06:12→23:04)
[2016-07-10] MEDS: FUROSEMIDE 40 MG TABLET (FP) PO SCH (09:28)
[2016-07-10] MEDS: PANTOPRAZOLE 40 MG TABLET (FP) PO SCH ×2 (09:28→21:23)
[2016-07-10] MEDS: predniSONE 20 MG TABLET (UD) PO SCH ×2 (09:28→21:24)
[2016-07-10] MEDS: LEVOFLOXACIN 250 MG TABLET (FP) PO SCH (09:28)
[2016-07-10] MEDS: BUDESONIDE/FORMETEROL FUMARATE 160/4.5 mcg INHALER IH SCH ×2 (09:28→21:25)
--- NOTE | 2016-07-10 09:32 | PN ---
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, Physician - Current Medication List Current Medications: Active Medications Acetaminophen (Tylenol -) 650 mg PO Q4H PRN PRN Reason: FEVER OR PAIN Last Admin: 07/09/16 14:32 Dose: 650 mg Albuterol/Ipratropium (Duoneb -) 1 amp NEB QIDR [facility] Last Admin: 07/10/16 06:12 Dose: 1 amp Atorvastatin Calcium (Lipitor -) 80 mg PO HS [facility] Last Admin: 07/09/16 21:02 Dose: 80 mg Budesonide/Formoterol Fumarate (Symbicort 160/4.5mcg -) 2 puff IH BID [facility] Last Admin: 07/10/16 09:28 Dose: 2 puff Clonazepam (Klonopin -) 0.5 mg PO Q12H PRN PRN Reason: ANXIETY Last Admin: 07/09/16 21:01 Dose: 0.5 mg Diltiazem HCl (Cardizem -) 90 mg PO Q6HPO [facility] Last Admin: 07/10/16 05:57 Dose: 90 mg Diltiazem HCl (Cardizem Injection -) 10 mg IVPUSH Q4H PRN PRN Reason: TACHYCARDIA Furosemide (Lasix -) 40 mg PO DAILY [facility] Last Admin: 07/10/16 09:28 Dose: 40 mg Hydralazine HCl (Apresoline -) 10 mg PO TID [facility] Last Admin: 07/10/16 05:57 Dose: 10 mg Insulin Aspart (Novolog Vial Sliding Scale -) 1 vial SQ ACHS [facility] PRN Reason: Protocol Last Admin: 07/10/16 06:03 Dose: 6 units Insulin Detemir (Levemir Vial) 5 units SQ [facility] Last Admin: 07/09/16 21:10 Dose: 5 units Levofloxacin (Levaquin -) 750 mg PO DAILY [facility] Last Admin: 07/10/16 09:28 Dose: 750 mg Morphine Sulfate (Morphine Injection -) 2 mg IVPUSH Q3H PRN PRN Reason: PAIN Nitroglycerin (Nitrostat -) 0.4 mg SL Q5M PRN PRN Reason: FOR CHEST PAIN Pantoprazole Sodium (Protonix -) 40 mg PO BID [facility] Last Admin: 07/10/16 09:28 Dose: 40 mg Prednisone (Deltasone -) 20 mg PO BID [facility] Last Admin: 07/10/16 09:28 Dose: 20 mg - Objective Vital Signs: Vital Signs Temperature 98 F 07/10/16 08:25 Pulse Rate 86 07/10/16 08:25 Respiratory Rate 20 07/10/16 08:25 Blood Pressure 112/49 07/10/16 08:25 O2 Sat by Pulse Oximetry (%) 98 07/10/16 06:28 Eyes: Yes: WNL, Conjunctiva Clear, EOM Intact HENT: Yes: WNL, Atraumatic, Normocephalic Neck: Yes: WNL, Supple, Trachea Midline Cardiovascular: Yes: WNL, Regular Rate and Rhythm Respiratory: Yes: Diminished Gastrointestinal: Yes: WNL, Normal Bowel Sounds Genitourinary: Yes: WNL Musculoskeletal: Yes: WNL Extremities: Yes: WNL Edema: No Integumentary: Yes: WNL Neurological: Yes: WNL, Alert, Oriented ...Motor Strength: WNL Psychiatric: Yes: WNL Labs: CBC, BMP 07/08/16 05:15 07/08/16 05:15 INR, PTT INR 1.02 (0.82-1.09) 06/09/16 05:05 Laboratory Tests 05/30/16 05/30/16 05/30/16 16:37 16:37 16:37 WBC RBC Hgb Hct MCV MCHC RDW Plt Count MPV Neutrophils % Lymphocytes % Monocytes % Eosinophils % Basophils % Band Neutrophils Metamyelocytes Myelocytes Nucleated RBCs Differential Comment Hypersegmented Neuts Toxic Granulation Dohle Bodies [place]s Platelet Estimate Platelet Comment RBC Morphology Polychromasia Hypochromic-Microcytic Poikilocytosis Basophilic Stippling Anisocytosis Microcytosis Macrocytosis Spherocytes Siderocytes Sickle Cells Target Cells Tear Drop Cells Ovalocytes Stomatocytes Helmet Cells [place] Bodies [place] Cells Acanthocytes (Spur) Rouleaux Fragmented RBCs Schistocytes Morphology Comment INR PTT (Actin FS) D-Dimer 607 H Puncture Site ABG pH ABG pCO2 at Pt Temp ABG pO2 at Pt Temp ABG HCO3 ABG O2 Sat (Measured) ABG O2 Content ABG Base Excess Rafi Test VBG pH POC VBG pCO2 POC VBG pO2 Mixed VBG HCO3 O2 Delivery Device Oxygen Flow Rate Vent Mode Vent Rate Mechanical Rate PEEP Pressure Support Vent Sodium 136 Potassium 5.3 H D Chloride 98 Carbon Dioxide 29 D Anion Gap 9 BUN 19 H Creatinine 0.9 D Creat Clearance w eGFR > 60 POC Glucometer Random Glucose 216 H D Lactic Acid Calcium 8.3 L Phosphorus Magnesium Total Bilirubin 0.4 D AST 33 D ALT 24 Alkaline Phosphatase 57 D Creatine Kinase 43 CK-MB (CK-2) Troponin I 0.05 B-Natriuretic Peptide 5692.86 H Total Protein 6.0 L Albumin 2.5 L TSH Free T3 Urine Color Ltyellow Urine Appearance Clear Urine pH 6.0 Ur Specific [place] 1.010 Urine Protein 2+ H Urine Glucose (UA) 3+ H Urine Ketones Negative Urine Blood Negative Urine Nitrite Negative Urine Bilirubin Negative Urine Urobilinogen Negative Ur Leukocyte Esterase Negative Urine RBC <1 Urine WBC 2 Ur Epithelial Cells Rare Urine Bacteria Hyaline Casts 64 Urine Mucus Rare Urine Yeast Stool Occult Blood Random Vancomycin Opiates Screen Methadone Screen Barbiturate Screen Phencyclidine Screen Ur Amphetamines Screen MDMA (Ecstasy) Screen Benzodiazepines Screen Cocaine Screen U Marijuana (THC) Screen Blood Type Antibody Screen Crossmatch Spec Expiration Date 05/30/16 05/30/16 05/30/16 16:45 16:54 17:00 WBC 12.7 H RBC 4.18 Hgb 8.8 L Hct 29.9 L MCV 71.6 L MCHC 29.3 L RDW 22.9 H Plt Count 231 MPV 8.6 Neutrophils % 75.5 Lymphocytes % 17.9 D Monocytes % 5.5 Eosinophils % 0.3 D Basophils % 0.8 Band Neutrophils Metamyelocytes Myelocytes Nucleated RBCs Differential Comment Hypersegmented Neuts Toxic Granulation Dohle Bodies Hazel Rods Platelet Estimate Adequate Platelet Comment No clumping noted RBC Morphology Polychromasia Few Hypochromic-Microcytic 2+ Poikilocytosis 1+ Basophilic Stippling Anisocytosis 2+ Microcytosis 1+ Macrocytosis Spherocytes Siderocytes Sickle Cells Target Cells Few Tear Drop Cells Ovalocytes 1+ Stomatocytes Helmet Cells [place] Bodies [place] Cells Acanthocytes (Spur) Rouleaux Fragmented RBCs Schistocytes Morphology Comment INR PTT (Actin FS) 29.4 D-Dimer Puncture Site ABG pH ABG pCO2 at Pt Temp ABG pO2 at Pt Temp ABG HCO3 ABG O2 Sat (Measured) ABG O2 Content ABG Base Excess Rafi Test VBG pH 7.13 L* POC VBG pCO2 91.5 H* POC VBG pO2 41.5 Mixed VBG HCO3 29.4 H O2 Delivery Device Oxygen Flow Rate Vent Mode Vent Rate Mechanical Rate PEEP Pressure Support Vent Sodium Potassium Chloride Carbon Dioxide Anion Gap BUN Creatinine Creat Clearance w eGFR POC Glucometer Random Glucose Lactic Acid Calcium Phosphorus Magnesium Total Bilirubin AST ALT Alkaline Phosphatase Creatine Kinase CK-MB (CK-2) Troponin I B-Natriuretic Peptide Total Protein Albumin TSH Free T3 Urine Color Urine Appearance Urine pH Ur Specific [place] Urine Protein Urine Glucose (UA) Urine Ketones Urine Blood Urine Nitrite Urine Bilirubin Urine Urobilinogen Ur Leukocyte Esterase Urine RBC Urine WBC Ur Epithelial Cells Urine Bacteria Hyaline Casts Urine Mucus Urine Yeast Stool Occult Blood Random Vancomycin Opiates Screen Methadone Screen Barbiturate Screen Phencyclidine Screen Ur Amphetamines Screen MDMA (Ecstasy) Screen Benzodiazepines Screen Cocaine Screen U Marijuana (THC) Screen Blood Type Antibody Screen Crossmatch Spec Expiration Date 05/30/16 05/30/16 05/30/16 17:00 17:00 17:00 WBC RBC Hgb Hct MCV MCHC RDW Plt Count MPV Neutrophils % Lymphocytes % Monocytes % Eosinophils % Basophils % Band Neutrophils Metamyelocytes Myelocytes Nucleated RBCs Differential Comment Hypersegmented Neuts Toxic Granulation Dohle Bodies [place] Platelet Estimate Platelet Comment RBC Morphology Polychromasia Hypochromic-Microcytic Poikilocytosis Basophilic Stippling Anisocytosis Microcytosis Macrocytosis Spherocytes Siderocytes Sickle Cells Target Cells Tear Drop Cells Ovalocytes Stomatocytes Helmet Cells [place] Bodies [place] Cells Acanthocytes (Spur) Rouleaux Fragmented RBCs Schistocytes Morphology Comment INR 0.98 PTT (Actin FS) D-Dimer Puncture Site ABG pH ABG pCO2 at Pt Temp ABG pO2 at Pt Temp ABG HCO3 ABG O2 Sat (Measured) ABG O2 Content ABG Base Excess Rafi Test VBG pH POC VBG pCO2 POC VBG pO2 Mixed VBG HCO3 O2 Delivery Device Oxygen Flow Rate Vent Mode Vent Rate Mechanical Rate PEEP Pressure Support Vent Sodium Potassium Chloride Carbon Dioxide Anion Gap BUN Creatinine Creat Clearance w eGFR POC Glucometer Random Glucose Lactic Acid 4.338 H* Calcium Phosphorus Magnesium Total Bilirubin AST ALT Alkaline Phosphatase Creatine Kinase CK-MB (CK-2) Troponin I B-Natriuretic Peptide Total Protein Albumin TSH Free T3 Urine Color Urine Appearance Urine pH Ur Specific [place] Urine Protein Urine Glucose (UA) Urine Ketones Urine Blood Urine Nitrite Urine Bilirubin Urine Urobilinogen Ur Leukocyte Esterase Urine RBC Urine WBC Ur Epithelial Cells Urine Bacteria Hyaline Casts Urine Mucus Urine Yeast Stool Occult Blood Random Vancomycin Opiates Screen Methadone Screen Barbiturate Screen Phencyclidine Screen Ur Amphetamines Screen MDMA (Ecstasy) Screen Benzodiazepines Screen Cocaine Screen U Marijuana (THC) Screen Blood Type A POSITIVE Antibody Screen Negative Crossmatch See Detail Spec Expiration Date 05/30/16 05/30/16 05/30/16 19:20 19:44 20:20 WBC RBC Hgb Hct MCV MCHC RDW Plt Count MPV Neutrophils % Lymphocytes % Monocytes % Eosinophils % Basophils % Band Neutrophils Metamyelocytes Myelocytes Nucleated RBCs Differential Comment Hypersegmented Neuts Toxic Granulation Dohle Bodies [place]s Platelet Estimate Platelet Comment RBC Morphology Polychromasia Hypochromic-Microcytic Poikilocytosis Basophilic Stippling Anisocytosis Microcytosis Macrocytosis Spherocytes Siderocytes Sickle Cells Target Cells Tear Drop Cells Ovalocytes Stomatocytes Helmet Cells [place] Bodies [place] E Cells Acanthocytes (Spur) Rouleaux Fragmented RBCs Schistocytes Morphology Comment INR PTT (Actin FS) D-Dimer Puncture Site Left radial ABG pH 7.43 ABG pCO2 at Pt Temp 43.7 ABG pO2 at Pt Temp 134.0 H D ABG HCO3 28.6 H ABG O2 Sat (Measured) 98.8 ABG O2 Content 11.7 L ABG Base Excess 4.4 H Rafi Test Positive VBG pH POC VBG pCO2 POC VBG pO2 Mixed VBG HCO3 O2 Delivery Device Mech vent Oxygen Flow Rate 50% Vent Mode A/c Vent Rate 14 Mechanical Rate Yes PEEP 5.0 Pressure Support Vent 400 Sodium Potassium Chloride Carbon Dioxide Anion Gap BUN Creatinine Creat Clearance w eGFR POC Glucometer Random Glucose Lactic Acid 1.828 Calcium Phosphorus Magnesium Total Bilirubin AST ALT Alkaline Phosphatase Creatine Kinase CK-MB (CK-2) Troponin I B-Natriuretic Peptide Total Protein Albumin TSH Free T3 Urine Color Urine Appearance Urine pH Ur Specific [place] Urine Protein Urine Glucose (UA) Urine Ketones Urine Blood Urine Nitrite Urine Bilirubin Urine Urobilinogen Ur Leukocyte Esterase Urine RBC Urine WBC Ur Epithelial Cells Urine Bacteria Hyaline Casts Urine Mucus Urine Yeast Stool Occult Blood Random Vancomycin Opiates Screen Negative Methadone Screen Negative Barbiturate Screen Negative Phencyclidine Screen Negative Ur Amphetamines Screen Negative MDMA (Ecstasy) Screen Negative Benzodiazepines Screen Negative Cocaine Screen Negative U Marijuana (THC) Screen Negative Blood Type Antibody Screen Crossmatch Spec Expiration Date 05/30/16 05/30/16 05/30/16 23:30 23:30 23:30 WBC RBC Hgb Hct MCV MCHC RDW Plt Count MPV Neutrophils % Lymphocytes % Monocytes % Eosinophils % Basophils % Band Neutrophils Metamyelocytes Myelocytes Nucleated RBCs Differential Comment Hypersegmented Neuts Toxic Granulation Dohle Bodies [place]s Platelet Estimate Platelet Comment RBC Morphology Polychromasia Hypochromic-Microcytic Poikilocytosis Basophilic Stippling Anisocytosis Microcytosis Macrocytosis Spherocytes Siderocytes Sickle Cells Target Cells Tear Drop Cells Ovalocytes Stomatocytes Helmet Cells [place] Bodies [place] Cells Acanthocytes (Spur) Rouleaux Fragmented RBCs Schistocytes Morphology Comment INR PTT (Actin FS) D-Dimer Puncture Site ABG pH ABG pCO2 at Pt Temp ABG pO2 at Pt Temp ABG HCO3 ABG O2 Sat (Measured) ABG O2 Content ABG Base Excess Rafi Test VBG pH POC VBG pCO2 POC VBG pO2 Mixed VBG HCO3 O2 Delivery Device Oxygen Flow Rate Vent Mode Vent Rate Mechanical Rate PEEP Pressure Support Vent Sodium 136 Potassium 4.4 Chloride 97 L Carbon Dioxide 32 Anion Gap 7 L BUN 19 H Creatinine 0.9 Creat Clearance w eGFR POC Glucometer Random Glucose 248 H Lactic Acid 2.801 H* Calcium 8.3 L Phosphorus Magnesium Total Bilirubin AST ALT Alkaline Phosphatase Creatine Kinase 62 CK-MB (CK-2) Troponin I 0.74 H* B-Natriuretic Peptide Total Protein Albumin TSH Free T3 Urine Color Urine Appearance Urine pH Ur Specific [place] Urine Protein Urine Glucose (UA) Urine Ketones Urine Blood Urine Nitrite Urine Bilirubin Urine Urobilinogen Ur Leukocyte Esterase Urine RBC Urine WBC Ur Epithelial Cells Urine Bacteria Hyaline Casts Urine Mucus Urine Yeast Stool Occult Blood Random Vancomycin Opiates Screen Methadone Screen Barbiturate Screen Phencyclidine Screen Ur Amphetamines Screen MDMA (Ecstasy) Screen Benzodiazepines Screen Cocaine Screen U Marijuana (THC) Screen Blood Type Antibody Screen Crossmatch Spec Expiration Date 05/31/16 05/31/16 05/31/16 00:35 03:25 03:25 WBC 12.2 H 11.2 H RBC 3.84 3.71 Hgb 8.1 L 7.8 L Hct 26.9 L 25.5 L MCV 70.1 L 68.9 L MCHC 30.0 L 30.6 L RDW 23.0 H 22.6 H Plt Count 202 210 MPV 8.4 8.8 Neutrophils % 96.5 H 96.3 H Lymphocytes % 1.2 L D 1.3 L Monocytes % 2.1 L 2.0 L Eosinophils % 0.0 D 0.0 Basophils % 0.2 0.4 Band Neutrophils Metamyelocytes Myelocytes Nucleated RBCs Differential Comment Hypersegmented Neuts Toxic Granulation Dohle Bodies [place] Rods Platelet Estimate Platelet Comment RBC Morphology Polychromasia Hypochromic-Microcytic Poikilocytosis Basophilic Stippling Anisocytosis Microcytosis Macrocytosis Spherocytes Siderocytes Sickle Cells Target Cells Tear Drop Cells Ovalocytes Stomatocytes Helmet Cells [place] Bodies [place] Cells Acanthocytes (Spur) Rouleaux Fragmented RBCs Schistocytes Morphology Comment INR PTT (Actin FS) D-Dimer Puncture Site ABG pH ABG pCO2 at Pt Temp ABG pO2 at Pt Temp ABG HCO3 ABG O2 Sat (Measured) ABG O2 Content ABG Base Excess Rafi Test VBG pH POC VBG pCO2 POC VBG pO2 Mixed VBG HCO3 O2 Delivery Device Oxygen Flow Rate Vent Mode Vent Rate Mechanical Rate PEEP Pressure Support Vent Sodium Potassium Chloride Carbon Dioxide Anion Gap BUN Creatinine Creat Clearance w eGFR POC Glucometer Random Glucose Lactic Acid Calcium Phosphorus 3.2 Magnesium 2.5 H Total Bilirubin AST ALT Alkaline Phosphatase Creatine Kinase 51 CK-MB (CK-2) Troponin I 0.80 H* B-Natriuretic Peptide Total Protein Albumin TSH Free T3 Urine Color Urine Appearance Urine pH Ur Specific [place] Urine Protein Urine Glucose (UA) Urine Ketones Urine Blood Urine Nitrite Urine Bilirubin Urine Urobilinogen Ur Leukocyte Esterase Urine RBC Urine WBC Ur Epithelial Cells Urine Bacteria Hyaline Casts Urine Mucus Urine Yeast Stool Occult Blood Random Vancomycin Opiates Screen Methadone Screen Barbiturate Screen Phencyclidine Screen Ur Amphetamines Screen MDMA (Ecstasy) Screen Benzodiazepines Screen Cocaine Screen U Marijuana (THC) Screen Blood Type Antibody Screen Crossmatch Spec Expiration Date 05/31/16 05/31/16 05/31/16 03:25 05:05 05:05 WBC RBC Hgb Hct MCV MCHC RDW Plt Count MPV Neutrophils % Lymphocytes % Monocytes % Eosinophils % Basophils % Band Neutrophils Metamyelocytes Myelocytes Nucleated RBCs Differential Comment Hypersegmented Neuts Toxic Granulation Dohle Bodies [place] Platelet Estimate Platelet Comment RBC Morphology Polychromasia Hypochromic-Microcytic Poikilocytosis Basophilic Stippling Anisocytosis Microcytosis Macrocytosis Spherocytes Siderocytes Sickle Cells Target Cells Tear Drop Cells Ovalocytes Stomatocytes Helmet Cells [place] Bodies [place] Cells Acanthocytes (Spur) Rouleaux Fragmented RBCs Schistocytes Morphology Comment INR PTT (Actin FS) D-Dimer Puncture Site ABG pH ABG pCO2 at Pt Temp ABG pO2 at Pt Temp ABG HCO3 ABG O2 Sat (Measured) ABG O2 Content ABG Base Excess Rafi Test VBG pH POC VBG pCO2 POC VBG pO2 Mixed VBG HCO3 O2 Delivery Device Oxygen Flow Rate Vent Mode Vent Rate Mechanical Rate PEEP Pressure Support Vent Sodium 137 Potassium 4.3 Chloride 100 Carbon Dioxide 30 Anion Gap 7 L BUN 16 Creatinine 0.6 D Creat Clearance w eGFR > 60 POC Glucometer Random Glucose 180 H D Lactic Acid 1.549 Calcium 8.3 L Phosphorus Magnesium Total Bilirubin 0.3 D AST 37 ALT 29 D Alkaline Phosphatase 49 Creatine Kinase CK-MB (CK-2) Troponin I B-Natriuretic Peptide Total Protein 5.2 L Albumin 2.2 L TSH Free T3 Urine Color Urine Appearance Urine pH Ur Specific [place] Urine Protein Urine Glucose (UA) Urine Ketones Urine Blood Urine Nitrite Urine Bilirubin Urine Urobilinogen Ur Leukocyte Esterase Urine RBC Urine WBC Ur Epithelial Cells Urine Bacteria Hyaline Casts Urine Mucus Urine Yeast Stool Occult Blood Random Vancomycin 6.855 Opiates Screen Methadone Screen Barbiturate Screen Phencyclidine Screen Ur Amphetamines Screen MDMA (Ecstasy) Screen Benzodiazepines Screen Cocaine Screen U Marijuana (THC) Screen Blood Type Antibody Screen Crossmatch Spec Expiration Date 05/31/16 05/31/16 05/31/16 05:19 07:05 08:20 WBC RBC Hgb Hct MCV MCHC RDW Plt Count MPV Neutrophils % Lymphocytes % Monocytes % Eosinophils % Basophils % Band Neutrophils Metamyelocytes Myelocytes Nucleated RBCs Differential Comment Hypersegmented Neuts Toxic Granulation Dohle Bodies [place] Platelet Estimate Platelet Comment RBC Morphology Polychromasia Hypochromic-Microcytic Poikilocytosis Basophilic Stippling Anisocytosis Microcytosis Macrocytosis Spherocytes Siderocytes Sickle Cells Target Cells Tear Drop Cells Ovalocytes Stomatocytes Helmet Cells [place] Bodies [place] Cells Acanthocytes (Spur) Rouleaux Fragmented RBCs Schistocytes Morphology Comment INR PTT (Actin FS) D-Dimer Puncture Site Right radial ABG pH 7.40 ABG pCO2 at Pt Temp 47.6 H ABG pO2 at Pt Temp 78.4 D ABG HCO3 29.1 H ABG O2 Sat (Measured) 95.5 ABG O2 Content 10.3 L ABG Base Excess 4.4 H Rafi Test Positive VBG pH POC VBG pCO2 POC VBG pO2 Mixed VBG HCO3 O2 Delivery Device Mec.vent Oxygen Flow Rate 35% Vent Mode A/c Vent Rate 14 Mechanical Rate Yes PEEP 5.0 Pressure Support Vent 400 Sodium 136 Potassium 4.5 Chloride 101 Carbon Dioxide 28 Anion Gap 7 L BUN 15 Creatinine 0.6 Creat Clearance w eGFR POC Glucometer 222.80645 Random Glucose 146 H Lactic Acid Calcium 8.4 L Phosphorus Magnesium Total Bilirubin AST ALT Alkaline Phosphatase Creatine Kinase 54 CK-MB (CK-2) 2.63 Troponin I 0.64 H* B-Natriuretic Peptide Total Protein Albumin TSH Free T3 Urine Color Urine Appearance Urine pH Ur Specific [place] Urine Protein Urine Glucose (UA) Urine Ketones Urine Blood Urine Nitrite Urine Bilirubin Urine Urobilinogen Ur Leukocyte Esterase Urine RBC Urine WBC Ur Epithelial Cells Urine Bacteria Hyaline Casts Urine Mucus Urine Yeast Stool Occult Blood Random Vancomycin Opiates Screen Methadone Screen Barbiturate Screen Phencyclidine Screen Ur Amphetamines Screen MDMA (Ecstasy) Screen Benzodiazepines Screen Cocaine Screen U Marijuana (THC) Screen Blood Type Antibody Screen Crossmatch Spec Expiration Date 05/31/16 05/31/16 05/31/16 08:20 08:20 08:20 WBC 10.6 H RBC 3.65 Hgb 7.7 L Hct 25.5 L MCV 69.8 L MCHC 30.2 L RDW 22.7 H Plt Count 186 MPV 8.7 Neutrophils % Lymphocytes % Monocytes % Eosinophils % Basophils % Band Neutrophils Metamyelocytes Myelocytes Nucleated RBCs Differential Comment Hypersegmented Neuts Toxic Granulation Dohle Bodies [place] Platelet Estimate Platelet Comment RBC Morphology Polychromasia Hypochromic-Microcytic Poikilocytosis Basophilic Stippling Anisocytosis Microcytosis Macrocytosis Spherocytes Siderocytes Sickle Cells Target Cells Tear Drop Cells Ovalocytes Stomatocytes Helmet Cells [place] Bodies [place] Cells Acanthocytes (Spur) Rouleaux Fragmented RBCs Schistocytes Morphology Comment INR PTT (Actin FS) D-Dimer Puncture Site ABG pH ABG pCO2 at Pt Temp ABG pO2 at Pt Temp ABG HCO3 ABG O2 Sat (Measured) ABG O2 Content ABG Base Excess Rafi Test VBG pH POC VBG pCO2 POC VBG pO2 Mixed VBG HCO3 O2 Delivery Device Oxygen Flow Rate Vent Mode Vent Rate Mechanical Rate PEEP Pressure Support Vent Sodium Potassium Chloride Carbon Dioxide Anion Gap BUN Creatinine Creat Clearance w eGFR POC Glucometer Random Glucose Lactic Acid 2.136 H* Calcium Phosphorus Magnesium Total Bilirubin AST ALT Alkaline Phosphatase Creatine Kinase CK-MB (CK-2) Cancelled Troponin I B-Natriuretic Peptide Total Protein Albumin TSH Free T3 Urine Color Urine Appearance Urine pH Ur Specific [place] Urine Protein Urine Glucose (UA) Urine Ketones Urine Blood Urine Nitrite Urine Bilirubin Urine Urobilinogen Ur Leukocyte Esterase Urine RBC Urine WBC Ur Epithelial Cells Urine Bacteria Hyaline Casts Urine Mucus Urine Yeast Stool Occult Blood Random Vancomycin Opiates Screen Methadone Screen Barbiturate Screen Phencyclidine Screen Ur Amphetamines Screen MDMA (Ecstasy) Screen Benzodiazepines Screen Cocaine Screen U Marijuana (THC) Screen Blood Type Antibody Screen Crossmatch Spec Expiration Date 05/31/16 05/31/16 05/31/16 11:18 16:49 23:47 WBC RBC Hgb Hct MCV MCHC RDW Plt Count MPV Neutrophils % Lymphocytes % Monocytes % Eosinophils % Basophils % Band Neutrophils Metamyelocytes Myelocytes Nucleated RBCs Differential Comment Hypersegmented Neuts Toxic Granulation Dohle Bodies [place] Platelet Estimate Platelet Comment RBC Morphology Polychromasia Hypochromic-Microcytic Poikilocytosis Basophilic Stippling Anisocytosis Microcytosis Macrocytosis Spherocytes Siderocytes Sickle Cells Target Cells Tear Drop Cells Ovalocytes Stomatocytes Helmet Cells [place] Bodies [place] E Cells Acanthocytes (Spur) Rouleaux Fragmented RBCs Schistocytes Morphology Comment INR PTT (Actin FS) D-Dimer Puncture Site ABG pH ABG pCO2 at Pt Temp ABG pO2 at Pt Temp ABG HCO3 ABG O2 Sat (Measured) ABG O2 Content ABG Base Excess Rafi Test VBG pH POC VBG pCO2 POC VBG pO2 Mixed VBG HCO3 O2 Delivery Device Oxygen Flow Rate Vent Mode Vent Rate Mechanical Rate PEEP Pressure Support Vent Sodium Potassium Chloride Carbon Dioxide Anion Gap BUN Creatinine Creat Clearance w eGFR POC Glucometer 198.99576 198.43446 196.41984 Random Glucose Lactic Acid Calcium Phosphorus Magnesium Total Bilirubin AST ALT Alkaline Phosphatase Creatine Kinase CK-MB (CK-2) Troponin I B-Natriuretic Peptide Total Protein Albumin TSH Free T3 Urine Color Urine Appearance Urine pH Ur Specific [place] Urine Protein Urine Glucose (UA) Urine Ketones Urine Blood Urine Nitrite Urine Bilirubin Urine Urobilinogen Ur Leukocyte Esterase Urine RBC Urine WBC Ur Epithelial Cells Urine Bacteria Hyaline Casts Urine Mucus Urine Yeast Stool Occult Blood Random Vancomycin Opiates Screen Methadone Screen Barbiturate Screen Phencyclidine Screen Ur Amphetamines Screen MDMA (Ecstasy) Screen Benzodiazepines Screen Cocaine Screen U Marijuana (THC) Screen Blood Type Antibody Screen Crossmatch Spec Expiration Date 06/01/16 06/01/16 06/01/16 05:05 05:05 05:05 WBC 14.2 H D RBC 3.40 L Hgb 7.1 L Hct 23.8 L MCV 70.0 L MCHC 29.7 L RDW 22.8 H Plt Count 198 MPV 8.9 Neutrophils % Lymphocytes % Monocytes % Eosinophils % Basophils % Band Neutrophils Metamyelocytes Myelocytes Nucleated RBCs Differential Comment Hypersegmented Neuts Toxic Granulation Dohle Bodies [place] Rods Platelet Estimate Adequate Platelet Comment RBC Morphology Polychromasia 1+ Hypochromic-Microcytic 2+ Poikilocytosis 1+ Basophilic Stippling 1+ Anisocytosis 2+ Microcytosis 1+ Macrocytosis Spherocytes Siderocytes Sickle Cells Target Cells Tear Drop Cells Ovalocytes 1+ Stomatocytes Helmet Cells [place] Bodies [place] Cells Acanthocytes (Spur) Rouleaux Fragmented RBCs Schistocytes Morphology Comment Slide scanned INR PTT (Actin FS) D-Dimer Puncture Site ABG pH ABG pCO2 at Pt Temp ABG pO2 at Pt Temp ABG HCO3 ABG O2 Sat (Measured) ABG O2 Content ABG Base Excess Rafi Test VBG pH POC VBG pCO2 POC VBG pO2 Mixed VBG HCO3 O2 Delivery Device Oxygen Flow Rate Vent Mode Vent Rate Mechanical Rate PEEP Pressure Support Vent Sodium 139 Potassium 4.5 Chloride 101 Carbon Dioxide 33 H Anion Gap 5 L BUN 14 Creatinine 0.6 Creat Clearance w eGFR POC Glucometer Random Glucose 143 H Lactic Acid 1.112 Calcium 8.4 L Phosphorus 2.9 Magnesium 2.2 Total Bilirubin AST ALT Alkaline Phosphatase Creatine Kinase 49 CK-MB (CK-2) Troponin I 0.36 H B-Natriuretic Peptide Total Protein Albumin TSH Free T3 Urine Color Urine Appearance Urine pH Ur Specific [place] Urine Protein Urine Glucose (UA) Urine Ketones Urine Blood Urine Nitrite Urine Bilirubin Urine Urobilinogen Ur Leukocyte Esterase Urine RBC Urine WBC Ur Epithelial Cells Urine Bacteria Hyaline Casts Urine Mucus Urine Yeast Stool Occult Blood Random Vancomycin Opiates Screen Methadone Screen Barbiturate Screen Phencyclidine Screen Ur Amphetamines Screen MDMA (Ecstasy) Screen Benzodiazepines Screen Cocaine Screen U Marijuana (THC) Screen Blood Type Antibody Screen Crossmatch Spec Expiration Date 06/01/16 06/01/16 06/01/16 05:13 05:50 07:10 WBC RBC Hgb Hct MCV MCHC RDW Plt Count MPV Neutrophils % Lymphocytes % Monocytes % Eosinophils % Basophils % Band Neutrophils Metamyelocytes Myelocytes Nucleated RBCs Differential Comment Hypersegmented Neuts Toxic Granulation Dohle Bodies [place]s Platelet Estimate Platelet Comment RBC Morphology Polychromasia Hypochromic-Microcytic Poikilocytosis Basophilic Stippling Anisocytosis Microcytosis Macrocytosis Spherocytes Siderocytes Sickle Cells Target Cells Tear Drop Cells Ovalocytes Stomatocytes Helmet Cells [place] Bodies [place] E Cells Acanthocytes (Spur) Rouleaux Fragmented RBCs Schistocytes Morphology Comment INR PTT (Actin FS) D-Dimer Puncture Site Right radial ABG pH 7.36 ABG pCO2 at Pt Temp 51.1 H ABG pO2 at Pt Temp 360.0 H* D ABG HCO3 28.4 H ABG O2 Sat (Measured) 100.0 H* ABG O2 Content 11.1 L ABG Base Excess 3.2 H Rafi Test Positive VBG pH POC VBG pCO2 POC VBG pO2 Mixed VBG HCO3 O2 Delivery Device Vent Oxygen Flow Rate 100% Vent Mode A/c Vent Rate 14 Mechanical Rate Yes PEEP 5.0 Pressure Support Vent 400 Sodium Potassium Chloride Carbon Dioxide Anion Gap BUN Creatinine Creat Clearance w eGFR POC Glucometer [phone] Random Glucose Lactic Acid Calcium Phosphorus Magnesium Total Bilirubin AST ALT Alkaline Phosphatase Creatine Kinase Cancelled CK-MB (CK-2) Troponin I Cancelled B-Natriuretic Peptide Total Protein Albumin TSH Free T3 Urine Color Urine Appearance Urine pH Ur Specific [place] Urine Protein Urine Glucose (UA) Urine Ketones Urine Blood Urine Nitrite Urine Bilirubin Urine Urobilinogen Ur Leukocyte Esterase Urine RBC Urine WBC Ur Epithelial Cells Urine Bacteria Hyaline Casts Urine Mucus Urine Yeast Stool Occult Blood Random Vancomycin Opiates Screen Methadone Screen Barbiturate Screen Phencyclidine Screen Ur Amphetamines Screen MDMA (Ecstasy) Screen Benzodiazepines Screen Cocaine Screen U Marijuana (THC) Screen Blood Type Antibody Screen Crossmatch Spec Expiration Date 06/01/16 06/01/16 06/02/16 11:28 16:37 05:05 WBC 13.0 H RBC 3.21 L Hgb 6.7 L* Hct 22.6 L MCV 70.3 L MCHC 29.8 L RDW 22.9 H Plt Count 167 MPV 9.1 Neutrophils % Lymphocytes % Monocytes % Eosinophils % Basophils % Band Neutrophils Metamyelocytes Myelocytes Nucleated RBCs Differential Comment Hypersegmented Neuts Toxic Granulation Dohle Bodies [place] Platelet Estimate Platelet Comment RBC Morphology Polychromasia Hypochromic-Microcytic Poikilocytosis Basophilic Stippling Anisocytosis Microcytosis Macrocytosis Spherocytes Siderocytes Sickle Cells Target Cells Tear Drop Cells Ovalocytes Stomatocytes Helmet Cells [place] Bodies [place] E Cells Acanthocytes (Spur) Rouleaux Fragmented RBCs Schistocytes Morphology Comment INR PTT (Actin FS) D-Dimer Puncture Site ABG pH ABG pCO2 at Pt Temp ABG pO2 at Pt Temp ABG HCO3 ABG O2 Sat (Measured) ABG O2 Content ABG Base Excess Rafi Test VBG pH POC VBG pCO2 POC VBG pO2 Mixed VBG HCO3 O2 Delivery Device Oxygen Flow Rate Vent Mode Vent Rate Mechanical Rate PEEP Pressure Support Vent Sodium Potassium Chloride Carbon Dioxide Anion Gap BUN Creatinine Creat Clearance w eGFR POC Glucometer [phone] Random Glucose Lactic Acid Calcium Phosphorus Magnesium Total Bilirubin AST ALT Alkaline Phosphatase Creatine Kinase CK-MB (CK-2) Troponin I B-Natriuretic Peptide Total Protein Albumin TSH Free T3 Urine Color Urine Appearance Urine pH Ur Specific [place] Urine Protein Urine Glucose (UA) Urine Ketones Urine Blood Urine Nitrite Urine Bilirubin Urine Urobilinogen Ur Leukocyte Esterase Urine RBC Urine WBC Ur Epithelial Cells Urine Bacteria Hyaline Casts Urine Mucus Urine Yeast Stool Occult Blood Random Vancomycin Opiates Screen Methadone Screen Barbiturate Screen Phencyclidine Screen Ur Amphetamines Screen MDMA (Ecstasy) Screen Benzodiazepines Screen Cocaine Screen U Marijuana (THC) Screen Blood Type Antibody Screen Crossmatch Spec Expiration Date 06/02/16 06/02/16 06/02/16 05:05 05:05 05:05 WBC RBC Hgb Hct MCV MCHC RDW Plt Count MPV Neutrophils % Lymphocytes % Monocytes % Eosinophils % Basophils % Band Neutrophils Metamyelocytes Myelocytes Nucleated RBCs Differential Comment Hypersegmented Neuts Toxic Granulation Dohle Bodies [place] Platelet Estimate Platelet Comment RBC Morphology Polychromasia Hypochromic-Microcytic Poikilocytosis Basophilic Stippling Anisocytosis Microcytosis Macrocytosis Spherocytes Siderocytes Sickle Cells Target Cells Tear Drop Cells Ovalocytes Stomatocytes Helmet Cells [place] Bodies [place] Cells Acanthocytes (Spur) Rouleaux Fragmented RBCs Schistocytes Morphology Comment INR 0.96 PTT (Actin FS) 27.2 D-Dimer Puncture Site ABG pH ABG pCO2 at Pt Temp ABG pO2 at Pt Temp ABG HCO3 ABG O2 Sat (Measured) ABG O2 Content ABG Base Excess Rafi Test VBG pH POC VBG pCO2 POC VBG pO2 Mixed VBG HCO3 O2 Delivery Device Oxygen Flow Rate Vent Mode Vent Rate Mechanical Rate PEEP Pressure Support Vent Sodium 141 Potassium 4.3 Chloride 104 Carbon Dioxide 31 Anion Gap 6 L BUN 16 Creatinine 0.5 L Creat Clearance w eGFR POC Glucometer Random Glucose 166 H Lactic Acid Calcium 8.3 L Phosphorus Magnesium Total Bilirubin AST ALT Alkaline Phosphatase Creatine Kinase 29 CK-MB (CK-2) Troponin I 0.25 H B-Natriuretic Peptide Total Protein Albumin TSH Free T3 Urine Color Urine Appearance Urine pH Ur Specific [place] Urine Protein Urine Glucose (UA) Urine Ketones Urine Blood Urine Nitrite Urine Bilirubin Urine Urobilinogen Ur Leukocyte Esterase Urine RBC Urine WBC Ur Epithelial Cells Urine Bacteria Hyaline Casts Urine Mucus Urine Yeast Stool Occult Blood Random Vancomycin Opiates Screen Methadone Screen Barbiturate Screen Phencyclidine Screen Ur Amphetamines Screen MDMA (Ecstasy) Screen Benzodiazepines Screen Cocaine Screen U Marijuana (THC) Screen Blood Type Antibody Screen Crossmatch Spec Expiration Date 06/02/16 06/02/16 06/02/16 05:23 07:10 11:40 WBC RBC Hgb Hct MCV MCHC RDW Plt Count MPV Neutrophils % Lymphocytes % Monocytes % Eosinophils % Basophils % Band Neutrophils Metamyelocytes Myelocytes Nucleated RBCs Differential Comment Hypersegmented Neuts Toxic Granulation Dohle Bodies [place] Platelet Estimate Platelet Comment RBC Morphology Polychromasia Hypochromic-Microcytic Poikilocytosis Basophilic Stippling Anisocytosis Microcytosis Macrocytosis Spherocytes Siderocytes Sickle Cells Target Cells Tear Drop Cells Ovalocytes Stomatocytes Helmet Cells [place] Bodies [place] Cells Acanthocytes (Spur) Rouleaux Fragmented RBCs Schistocytes Morphology Comment INR PTT (Actin FS) D-Dimer Puncture Site Right radial Right radial ABG pH 7.37 7.12 L* D ABG pCO2 at Pt Temp 51.0 H 77.4 H* D ABG pO2 at Pt Temp 73.9 D 69.8 L ABG HCO3 28.8 H 23.8 ABG O2 Sat (Measured) 93.9 85.4 L ABG O2 Content 10.0 L 10.0 L ABG Base Excess 3.6 H -5.7 L Rafi Test Positive Positive VBG pH POC VBG pCO2 POC VBG pO2 Mixed VBG HCO3 O2 Delivery Device Mec.vent Bi-pap Oxygen Flow Rate 235% 35% Vent Mode A/c Vent Rate 14 12 Mechanical Rate Yes S/t PEEP 5.0 0.0 Pressure Support Vent 400 12/5 Sodium Potassium Chloride Carbon Dioxide Anion Gap BUN Creatinine Creat Clearance w eGFR POC Glucometer [phone] Random Glucose Lactic Acid Calcium Phosphorus Magnesium Total Bilirubin AST ALT Alkaline Phosphatase Creatine Kinase CK-MB (CK-2) Troponin I B-Natriuretic Peptide Total Protein Albumin TSH Free T3 Urine Color Urine Appearance Urine pH Ur Specific [place] Urine Protein Urine Glucose (UA) Urine Ketones Urine Blood Urine Nitrite Urine Bilirubin Urine Urobilinogen Ur Leukocyte Esterase Urine RBC Urine WBC Ur Epithelial Cells Urine Bacteria Hyaline Casts Urine Mucus Urine Yeast Stool Occult Blood Random Vancomycin Opiates Screen Methadone Screen Barbiturate Screen Phencyclidine Screen Ur Amphetamines Screen MDMA (Ecstasy) Screen Benzodiazepines Screen Cocaine Screen U Marijuana (THC) Screen Blood Type Antibody Screen Crossmatch Spec Expiration Date 06/02/16 06/02/16 06/02/16 12:08 13:10 15:32 WBC 21.4 H D RBC 4.56 D Hgb 10.2 L D Hct 33.2 D MCV 72.8 L MCHC 30.7 L RDW 22.3 H Plt Count 189 MPV 8.8 Neutrophils % 95.0 H Lymphocytes % 2.0 L D Monocytes % 1.0 L Eosinophils % Basophils % Band Neutrophils 2.0 Metamyelocytes Myelocytes Nucleated RBCs Differential Comment Manual diff done Hypersegmented Neuts Toxic Granulation Dohle Bodies [place] Platelet Estimate Adequate Platelet Comment RBC Morphology Polychromasia Hypochromic-Microcytic Poikilocytosis Basophilic Stippling Anisocytosis Microcytosis Macrocytosis Spherocytes Siderocytes Sickle Cells Target Cells Tear Drop Cells Ovalocytes Stomatocytes Helmet Cells [place] Bodies [place] Cells Acanthocytes (Spur) Rouleaux Fragmented RBCs Schistocytes Morphology Comment Slide scanned INR PTT (Actin FS) D-Dimer Puncture Site Right radial ABG pH 7.16 L* ABG pCO2 at Pt Temp 79.5 H* ABG pO2 at Pt Temp 76.2 ABG HCO3 27.0 H ABG O2 Sat (Measured) 90.3 ABG O2 Content 12.4 L ABG Base Excess -2.6 L Rafi Test Positive VBG pH POC VBG pCO2 POC VBG pO2 Mixed VBG HCO3 O2 Delivery Device Bipap 12/5 rr 12 Oxygen Flow Rate 35 Vent Mode Vent Rate Mechanical Rate PEEP 0.0 Pressure Support Vent Sodium Potassium Chloride Carbon Dioxide Anion Gap BUN Creatinine Creat Clearance w eGFR POC Glucometer [phone] Random Glucose Lactic Acid Calcium Phosphorus Magnesium Total Bilirubin AST ALT Alkaline Phosphatase Creatine Kinase CK-MB (CK-2) Troponin I B-Natriuretic Peptide Total Protein Albumin TSH Free T3 Urine Color Urine Appearance Urine pH Ur Specific [place] Urine Protein Urine Glucose (UA) Urine Ketones Urine Blood Urine Nitrite Urine Bilirubin Urine Urobilinogen Ur Leukocyte Esterase Urine RBC Urine WBC Ur Epithelial Cells Urine Bacteria Hyaline Casts Urine Mucus Urine Yeast Stool Occult Blood Random Vancomycin Opiates Screen Methadone Screen Barbiturate Screen Phencyclidine Screen Ur Amphetamines Screen MDMA (Ecstasy) Screen Benzodiazepines Screen Cocaine Screen U Marijuana (THC) Screen Blood Type Antibody Screen Crossmatch Spec Expiration Date 06/02/16 06/03/16 06/03/16 16:36 06:13 07:14 WBC RBC Hgb Hct MCV MCHC RDW Plt Count MPV Neutrophils % Lymphocytes % Monocytes % Eosinophils % Basophils % Band Neutrophils Metamyelocytes Myelocytes Nucleated RBCs Differential Comment Hypersegmented Neuts Toxic Granulation Dohle Bodies [place] Platelet Estimate Platelet Comment RBC Morphology Polychromasia Hypochromic-Microcytic Poikilocytosis Basophilic Stippling Anisocytosis Microcytosis Macrocytosis Spherocytes Siderocytes Sickle Cells Target Cells Tear Drop Cells Ovalocytes Stomatocytes Helmet Cells [place] Bodies [place] Cells Acanthocytes (Spur) Rouleaux Fragmented RBCs Schistocytes Morphology Comment INR PTT (Actin FS) D-Dimer Puncture Site Right radial ABG pH 7.34 L D ABG pCO2 at Pt Temp 59.6 H D ABG pO2 at Pt Temp 67.2 L ABG HCO3 31.1 H ABG O2 Sat (Measured) 91.7 ABG O2 Content 12.7 L ABG Base Excess 4.6 H Rafi Test Positive VBG pH POC VBG pCO2 POC VBG pO2 Mixed VBG HCO3 O2 Delivery Device Bipap Oxygen Flow Rate 35% Vent Mode S/t Vent Rate 20 Mechanical Rate Bipap PEEP 0.0 Pressure Support Vent 18/5 Sodium Potassium Chloride Carbon Dioxide Anion Gap BUN Creatinine Creat Clearance w eGFR POC Glucometer 132.69243 [phone] Random Glucose Lactic Acid Calcium Phosphorus Magnesium Total Bilirubin AST ALT Alkaline Phosphatase Creatine Kinase CK-MB (CK-2) Troponin I B-Natriuretic Peptide Total Protein Albumin TSH Free T3 Urine Color Urine Appearance Urine pH Ur Specific [place] Urine Protein Urine Glucose (UA) Urine Ketones Urine Blood Urine Nitrite Urine Bilirubin Urine Urobilinogen Ur Leukocyte Esterase Urine RBC Urine WBC Ur Epithelial Cells Urine Bacteria Hyaline Casts Urine Mucus Urine Yeast Stool Occult Blood Random Vancomycin Opiates Screen Methadone Screen Barbiturate Screen Phencyclidine Screen Ur Amphetamines Screen MDMA (Ecstasy) Screen Benzodiazepines Screen Cocaine Screen U Marijuana (THC) Screen Blood Type Antibody Screen Crossmatch Spec Expiration Date 06/03/16 06/03/16 06/03/16 07:45 07:45 11:01 WBC 12.4 H D RBC 4.41 Hgb 9.9 L Hct 31.8 L MCV 72.1 L MCHC 31.0 L RDW 22.4 H Plt Count 158 MPV 8.8 Neutrophils % Lymphocytes % Monocytes % Eosinophils % Basophils % Band Neutrophils Metamyelocytes Myelocytes Nucleated RBCs Differential Comment Hypersegmented Neuts Toxic Granulation Dohle Bodies [place] Platelet Estimate Platelet Comment RBC Morphology Polychromasia Hypochromic-Microcytic Poikilocytosis Basophilic Stippling Anisocytosis Microcytosis Macrocytosis Spherocytes Siderocytes Sickle Cells Target Cells Tear Drop Cells Ovalocytes Stomatocytes Helmet Cells [place] Bodies [place] Cells Acanthocytes (Spur) Rouleaux Fragmented RBCs Schistocytes Morphology Comment INR PTT (Actin FS) D-Dimer Puncture Site ABG pH ABG pCO2 at Pt Temp ABG pO2 at Pt Temp ABG HCO3 ABG O2 Sat (Measured) ABG O2 Content ABG Base Excess Rafi Test VBG pH POC VBG pCO2 POC VBG pO2 Mixed VBG HCO3 O2 Delivery Device Oxygen Flow Rate Vent Mode Vent Rate Mechanical Rate PEEP Pressure Support Vent Sodium 144 Potassium 4.3 Chloride 104 Carbon Dioxide 32 Anion Gap 8 BUN 24 H D Creatinine 0.7 D Creat Clearance w eGFR > 60 POC Glucometer [phone] Random Glucose 140 H Lactic Acid Calcium 9.0 Phosphorus Magnesium Total Bilirubin 1.0 D AST 172 H D ALT 82 H D Alkaline Phosphatase 67 D Creatine Kinase CK-MB (CK-2) Troponin I B-Natriuretic Peptide Total Protein 5.5 L Albumin 2.2 L TSH Free T3 Urine Color Urine Appearance Urine pH Ur Specific [place] Urine Protein Urine Glucose (UA) Urine Ketones Urine Blood Urine Nitrite Urine Bilirubin Urine Urobilinogen Ur Leukocyte Esterase Urine RBC Urine WBC Ur Epithelial Cells Urine Bacteria Hyaline Casts Urine Mucus Urine Yeast Stool Occult Blood Random Vancomycin Opiates Screen Methadone Screen Barbiturate Screen Phencyclidine Screen Ur Amphetamines Screen MDMA (Ecstasy) Screen Benzodiazepines Screen Cocaine Screen U Marijuana (THC) Screen Blood Type Antibody Screen Crossmatch Spec Expiration Date 06/03/16 06/03/16 06/04/16 12:05 16:19 05:36 WBC RBC Hgb Hct MCV MCHC RDW Plt Count MPV Neutrophils % Lymphocytes % Monocytes % Eosinophils % Basophils % Band Neutrophils Metamyelocytes Myelocytes Nucleated RBCs Differential Comment Hypersegmented Neuts Toxic Granulation Dohle Bodies [place] Platelet Estimate Platelet Comment RBC Morphology Polychromasia Hypochromic-Microcytic Poikilocytosis Basophilic Stippling Anisocytosis Microcytosis Macrocytosis Spherocytes Siderocytes Sickle Cells Target Cells Tear Drop Cells Ovalocytes Stomatocytes Helmet Cells [place] Bodies [place] Cells Acanthocytes (Spur) Rouleaux Fragmented RBCs Schistocytes Morphology Comment INR PTT (Actin FS) D-Dimer Puncture Site ABG pH ABG pCO2 at Pt Temp ABG pO2 at Pt Temp ABG HCO3 ABG O2 Sat (Measured) ABG O2 Content ABG Base Excess Rafi Test VBG pH POC VBG pCO2 POC VBG pO2 Mixed VBG HCO3 O2 Delivery Device Oxygen Flow Rate Vent Mode Vent Rate Mechanical Rate PEEP Pressure Support Vent Sodium Potassium Chloride Carbon Dioxide Anion Gap BUN Creatinine Creat Clearance w eGFR POC Glucometer 172.60733 158.22109 Random Glucose Lactic Acid Calcium Phosphorus Magnesium Total Bilirubin AST ALT Alkaline Phosphatase Creatine Kinase CK-MB (CK-2) Troponin I B-Natriuretic Peptide Total Protein Albumin TSH Free T3 Urine Color Urine Appearance Urine pH Ur Specific [place] Urine Protein Urine Glucose (UA) Urine Ketones Urine Blood Urine Nitrite Urine Bilirubin Urine Urobilinogen Ur Leukocyte Esterase Urine RBC Urine WBC Ur Epithelial Cells Urine Bacteria Hyaline Casts Urine Mucus Urine Yeast Stool Occult Blood Negative Random Vancomycin Opiates Screen Methadone Screen Barbiturate Screen Phencyclidine Screen Ur Amphetamines Screen MDMA (Ecstasy) Screen Benzodiazepines Screen Cocaine Screen U Marijuana (THC) Screen Blood Type Antibody Screen Crossmatch Spec Expiration Date 06/04/16 06/04/16 06/04/16 05:40 05:40 07:30 WBC 12.0 H RBC 4.33 Hgb 9.7 L Hct 31.1 L MCV 71.9 L MCHC 31.0 L RDW 22.9 H Plt Count 183 MPV 8.9 Neutrophils % Lymphocytes % Monocytes % Eosinophils % Basophils % Band Neutrophils Metamyelocytes Myelocytes Nucleated RBCs Differential Comment Hypersegmented Neuts Toxic Granulation Dohle Bodies [place] Platelet Estimate Platelet Comment RBC Morphology Polychromasia Hypochromic-Microcytic Poikilocytosis Basophilic Stippling Anisocytosis Microcytosis Macrocytosis Spherocytes Siderocytes Sickle Cells Target Cells Tear Drop Cells Ovalocytes Stomatocytes Helmet Cells [place] Bodies [place] E Cells Acanthocytes (Spur) Rouleaux Fragmented RBCs Schistocytes Morphology Comment INR PTT (Actin FS) D-Dimer Puncture Site Right radial ABG pH 7.36 ABG pCO2 at Pt Temp 58.0 H ABG pO2 at Pt Temp 74.8 ABG HCO3 31.7 H ABG O2 Sat (Measured) 94.5 ABG O2 Content 13.0 L ABG Base Excess 5.5 H Rafi Test Positive VBG pH POC VBG pCO2 POC VBG pO2 Mixed VBG HCO3 O2 Delivery Device Ot Oxygen Flow Rate 35 Vent Mode Ac Vent Rate 14 Mechanical Rate Esprit PEEP 5.0 Pressure Support Vent 400 Sodium 144 Potassium 4.2 Chloride 105 Carbon Dioxide 34 H Anion Gap 5 L BUN 23 H Creatinine 0.6 Creat Clearance w eGFR > 60 POC Glucometer Random Glucose 126 H Lactic Acid Calcium 8.9 Phosphorus Magnesium Total Bilirubin 0.4 D AST 85 H D ALT 64 D Alkaline Phosphatase 62 Creatine Kinase CK-MB (CK-2) Troponin I B-Natriuretic Peptide Total Protein 5.4 L Albumin 2.2 L TSH Free T3 Urine Color Urine Appearance Urine pH Ur Specific [place] Urine Protein Urine Glucose (UA) Urine Ketones Urine Blood Urine Nitrite Urine Bilirubin Urine Urobilinogen Ur Leukocyte Esterase Urine RBC Urine WBC Ur Epithelial Cells Urine Bacteria Hyaline Casts Urine Mucus Urine Yeast Stool Occult Blood Random Vancomycin Opiates Screen Methadone Screen Barbiturate Screen Phencyclidine Screen Ur Amphetamines Screen MDMA (Ecstasy) Screen Benzodiazepines Screen Cocaine Screen U Marijuana (THC) Screen Blood Type Antibody Screen Crossmatch Spec Expiration Date 06/04/16 06/04/16 06/05/16 12:16 17:02 05:20 WBC 10.6 H RBC 4.09 Hgb 9.3 L Hct 29.1 L MCV 71.1 L MCHC 31.9 L RDW 23.2 H Plt Count 172 MPV 9.1 Neutrophils % Lymphocytes % Monocytes % Eosinophils % Basophils % Band Neutrophils Metamyelocytes Myelocytes Nucleated RBCs Differential Comment Hypersegmented Neuts Toxic Granulation Dohle Bodies [place] Platelet Estimate Platelet Comment RBC Morphology Polychromasia Hypochromic-Microcytic Poikilocytosis Basophilic Stippling Anisocytosis Microcytosis Macrocytosis Spherocytes Siderocytes Sickle Cells Target Cells Tear Drop Cells Ovalocytes Stomatocytes Helmet Cells [place] Bodies [place] Cells Acanthocytes (Spur) Rouleaux Fragmented RBCs Schistocytes Morphology Comment INR PTT (Actin FS) D-Dimer Puncture Site ABG pH ABG pCO2 at Pt Temp ABG pO2 at Pt Temp ABG HCO3 ABG O2 Sat (Measured) ABG O2 Content ABG Base Excess Rafi Test VBG pH POC VBG pCO2 POC VBG pO2 Mixed VBG HCO3 O2 Delivery Device Oxygen Flow Rate Vent Mode Vent Rate Mechanical Rate PEEP Pressure Support Vent Sodium Potassium Chloride Carbon Dioxide Anion Gap BUN Creatinine Creat Clearance w eGFR POC Glucometer 191.86462 220.31080 Random Glucose Lactic Acid Calcium Phosphorus Magnesium Total Bilirubin AST ALT Alkaline Phosphatase Creatine Kinase CK-MB (CK-2) Troponin I B-Natriuretic Peptide Total Protein Albumin TSH Free T3 Urine Color Urine Appearance Urine pH Ur Specific [place] Urine Protein Urine Glucose (UA) Urine Ketones Urine Blood Urine Nitrite Urine Bilirubin Urine Urobilinogen Ur Leukocyte Esterase Urine RBC Urine WBC Ur Epithelial Cells Urine Bacteria Hyaline Casts Urine Mucus Urine Yeast Stool Occult Blood Random Vancomycin Opiates Screen Methadone Screen Barbiturate Screen Phencyclidine Screen Ur Amphetamines Screen MDMA (Ecstasy) Screen Benzodiazepines Screen Cocaine Screen U Marijuana (THC) Screen Blood Type Antibody Screen Crossmatch Spec Expiration Date 06/05/16 06/05/16 06/05/16 05:20 05:20 05:43 WBC RBC Hgb Hct MCV MCHC RDW Plt Count MPV Neutrophils % Lymphocytes % Monocytes % Eosinophils % Basophils % Band Neutrophils Metamyelocytes Myelocytes Nucleated RBCs Differential Comment Hypersegmented Neuts Toxic Granulation Dohle Bodies [place] Platelet Estimate Platelet Comment RBC Morphology Polychromasia Hypochromic-Microcytic Poikilocytosis Basophilic Stippling Anisocytosis Microcytosis Macrocytosis Spherocytes Siderocytes Sickle Cells Target Cells Tear Drop Cells Ovalocytes Stomatocytes Helmet Cells [place] Bodies [place] Cells Acanthocytes (Spur) Rouleaux Fragmented RBCs Schistocytes Morphology Comment INR PTT (Actin FS) D-Dimer Puncture Site ABG pH ABG pCO2 at Pt Temp ABG pO2 at Pt Temp ABG HCO3 ABG O2 Sat (Measured) ABG O2 Content ABG Base Excess Rafi Test VBG pH POC VBG pCO2 POC VBG pO2 Mixed VBG HCO3 O2 Delivery Device Oxygen Flow Rate Vent Mode Vent Rate Mechanical Rate PEEP Pressure Support Vent Sodium 141 Potassium 4.2 Chloride 102 Carbon Dioxide 33 H Anion Gap 6 L BUN 24 H Creatinine 0.6 Creat Clearance w eGFR > 60 POC Glucometer [phone] Random Glucose 164 H D Lactic Acid Calcium 8.5 Phosphorus Magnesium Total Bilirubin 0.5 D AST 52 H D ALT 47 D Alkaline Phosphatase 54 Creatine Kinase CK-MB (CK-2) Troponin I B-Natriuretic Peptide Total Protein 5.0 L Albumin 2.0 L TSH Free T3 Urine Color Urine Appearance Urine pH Ur Specific [place] Urine Protein Urine Glucose (UA) Urine Ketones Urine Blood Urine Nitrite Urine Bilirubin Urine Urobilinogen Ur Leukocyte Esterase Urine RBC Urine WBC Ur Epithelial Cells Urine Bacteria Hyaline Casts Urine Mucus Urine Yeast Stool Occult Blood Random Vancomycin Opiates Screen Methadone Screen Barbiturate Screen Phencyclidine Screen Ur Amphetamines Screen MDMA (Ecstasy) Screen Benzodiazepines Screen Cocaine Screen U Marijuana (THC) Screen Blood Type A POSITIVE Antibody Screen Negative Crossmatch Spec Expiration Date 06/05/16 06/05/16 06/06/16 11:22 18:25 05:05 WBC 11.9 H RBC 4.53 Hgb 10.2 L Hct 32.6 MCV 72.0 L MCHC 31.3 L RDW 24.1 H Plt Count 198 MPV 9.2 Neutrophils % Lymphocytes % Monocytes % Eosinophils % Basophils % Band Neutrophils Metamyelocytes Myelocytes Nucleated RBCs Differential Comment Hypersegmented Neuts Toxic Granulation Dohle Bodies [place] Rods Platelet Estimate Platelet Comment RBC Morphology Polychromasia Hypochromic-Microcytic 4+ Poikilocytosis 1+ Basophilic Stippling Anisocytosis 2+ Microcytosis 1+ Macrocytosis 1+ Spherocytes 1+ Siderocytes Sickle Cells Target Cells 2+ Tear Drop Cells 1+ Ovalocytes 1+ Stomatocytes Helmet Cells [place] Bodies [place] Cells Acanthocytes (Spur) Rouleaux Fragmented RBCs Schistocytes Morphology Comment Slide scanned INR PTT (Actin FS) D-Dimer Puncture Site ABG pH ABG pCO2 at Pt Temp ABG pO2 at Pt Temp ABG HCO3 ABG O2 Sat (Measured) ABG O2 Content ABG Base Excess Rafi Test VBG pH POC VBG pCO2 POC VBG pO2 Mixed VBG HCO3 O2 Delivery Device Oxygen Flow Rate Vent Mode Vent Rate Mechanical Rate PEEP Pressure Support Vent Sodium Potassium Chloride Carbon Dioxide Anion Gap BUN Creatinine Creat Clearance w eGFR POC Glucometer 192.48707 [phone] Random Glucose Lactic Acid Calcium Phosphorus Magnesium Total Bilirubin AST ALT Alkaline Phosphatase Creatine Kinase CK-MB (CK-2) Troponin I B-Natriuretic Peptide Total Protein Albumin TSH Free T3 Urine Color Urine Appearance Urine pH Ur Specific [place] Urine Protein Urine Glucose (UA) Urine Ketones Urine Blood Urine Nitrite Urine Bilirubin Urine Urobilinogen Ur Leukocyte Esterase Urine RBC Urine WBC Ur Epithelial Cells Urine Bacteria Hyaline Casts Urine Mucus Urine Yeast Stool Occult Blood Random Vancomycin Opiates Screen Methadone Screen Barbiturate Screen Phencyclidine Screen Ur Amphetamines Screen MDMA (Ecstasy) Screen Benzodiazepines Screen Cocaine Screen U Marijuana (THC) Screen Blood Type Antibody Screen Crossmatch Spec Expiration Date 06/06/16 06/06/16 06/06/16 05:05 05:05 05:11 WBC RBC Hgb Hct MCV MCHC RDW Plt Count MPV Neutrophils % Lymphocytes % Monocytes % Eosinophils % Basophils % Band Neutrophils Metamyelocytes Myelocytes Nucleated RBCs Differential Comment Hypersegmented Neuts Toxic Granulation Dohle Bodies [place]s Platelet Estimate Platelet Comment RBC Morphology Polychromasia Hypochromic-Microcytic Poikilocytosis Basophilic Stippling Anisocytosis Microcytosis Macrocytosis Spherocytes Siderocytes Sickle Cells Target Cells Tear Drop Cells Ovalocytes Stomatocytes Helmet Cells [place] Bodies [place] Cells Acanthocytes (Spur) Rouleaux Fragmented RBCs Schistocytes Morphology Comment INR 0.98 PTT (Actin FS) 28.6 D-Dimer Puncture Site ABG pH ABG pCO2 at Pt Temp ABG pO2 at Pt Temp ABG HCO3 ABG O2 Sat (Measured) ABG O2 Content ABG Base Excess Rafi Test VBG pH POC VBG pCO2 POC VBG pO2 Mixed VBG HCO3 O2 Delivery Device Oxygen Flow Rate Vent Mode Vent Rate Mechanical Rate PEEP Pressure Support Vent Sodium 142 Potassium 4.1 Chloride 100 Carbon Dioxide 34 H Anion Gap 8 BUN 26 H Creatinine 0.6 Creat Clearance w eGFR POC Glucometer 105.53289 Random Glucose 215 H D Lactic Acid Calcium 8.6 Phosphorus 2.8 Magnesium 2.1 Total Bilirubin AST ALT Alkaline Phosphatase Creatine Kinase CK-MB (CK-2) Troponin I B-Natriuretic Peptide Total Protein Albumin TSH 0.59 D Free T3 Urine Color Urine Appearance Urine pH Ur Specific [place] Urine Protein Urine Glucose (UA) Urine Ketones Urine Blood Urine Nitrite Urine Bilirubin Urine Urobilinogen Ur Leukocyte Esterase Urine RBC Urine WBC Ur Epithelial Cells Urine Bacteria Hyaline Casts Urine Mucus Urine Yeast Stool Occult Blood Random Vancomycin Opiates Screen Methadone Screen Barbiturate Screen Phencyclidine Screen Ur Amphetamines Screen MDMA (Ecstasy) Screen Benzodiazepines Screen Cocaine Screen U Marijuana (THC) Screen Blood Type Antibody Screen Crossmatch Spec Expiration Date 06/06/16 06/06/16 06/06/16 07:05 07:36 12:49 WBC RBC Hgb Hct MCV MCHC RDW Plt Count MPV Neutrophils % Lymphocytes % Monocytes % Eosinophils % Basophils % Band Neutrophils Metamyelocytes Myelocytes Nucleated RBCs Differential Comment Hypersegmented Neuts Toxic Granulation Dohle Bodies [place] Platelet Estimate Platelet Comment RBC Morphology Polychromasia Hypochromic-Microcytic Poikilocytosis Basophilic Stippling Anisocytosis Microcytosis Macrocytosis Spherocytes Siderocytes Sickle Cells Target Cells Tear Drop Cells Ovalocytes Stomatocytes Helmet Cells [place] Bodies [place] Rings [place] E Cells Acanthocytes (Spur) Rouleaux Fragmented RBCs Schistocytes Morphology Comment INR PTT (Actin FS) D-Dimer Puncture Site Right radial ABG pH 7.47 H ABG pCO2 at Pt Temp 42.6 D ABG pO2 at Pt Temp 78.1 ABG HCO3 30.3 H ABG O2 Sat (Measured) 96.1 ABG O2 Content 13.9 L ABG Base Excess 6.3 H Rafi Test Positive VBG pH POC VBG pCO2 POC VBG pO2 Mixed VBG HCO3 O2 Delivery Device Vent Oxygen Flow Rate 30 Vent Mode A/c Vent Rate 14 Mechanical Rate Yes PEEP 5.0 Pressure Support Vent 400 Sodium Potassium Chloride Carbon Dioxide Anion Gap BUN Creatinine Creat Clearance w eGFR POC Glucometer [phone] Random Glucose Lactic Acid Calcium Phosphorus Magnesium Total Bilirubin AST ALT Alkaline Phosphatase Creatine Kinase CK-MB (CK-2) Troponin I B-Natriuretic Peptide Total Protein Albumin TSH Cancelled Free T3 Urine Color Urine Appearance Urine pH Ur Specific [place] Urine Protein Urine Glucose (UA) Urine Ketones Urine Blood Urine Nitrite Urine Bilirubin Urine Urobilinogen Ur Leukocyte Esterase Urine RBC Urine WBC Ur Epithelial Cells Urine Bacteria Hyaline Casts Urine Mucus Urine Yeast Stool Occult Blood Random Vancomycin Opiates Screen Methadone Screen Barbiturate Screen Phencyclidine Screen Ur Amphetamines Screen MDMA (Ecstasy) Screen Benzodiazepines Screen Cocaine Screen U Marijuana (THC) Screen Blood Type Antibody Screen Crossmatch Spec Expiration Date 06/06/16 06/06/16 06/06/16 18:42 21:45 22:00 WBC 12.2 H RBC 4.66 Hgb 10.4 L Hct 33.6 MCV 72.0 L MCHC 30.9 L RDW 24.5 H Plt Count 188 MPV 8.8 Neutrophils % 94.1 H Lymphocytes % 1.9 L Monocytes % 3.8 D Eosinophils % 0.0 Basophils % 0.2 Band Neutrophils Metamyelocytes Myelocytes Nucleated RBCs Differential Comment Hypersegmented Neuts Toxic Granulation Dohle Bodies [place] Platelet Estimate Adequate Platelet Comment RBC Morphology Polychromasia 1+ Hypochromic-Microcytic 1+ Poikilocytosis Basophilic Stippling Anisocytosis 3+ Microcytosis 2+ Macrocytosis Spherocytes Siderocytes Sickle Cells Target Cells Tear Drop Cells Ovalocytes 1+ Stomatocytes Helmet Cells [place] Bodies [place] Cells Acanthocytes (Spur) Rouleaux Fragmented RBCs Schistocytes Morphology Comment INR PTT (Actin FS) D-Dimer Puncture Site ABG pH ABG pCO2 at Pt Temp ABG pO2 at Pt Temp ABG HCO3 ABG O2 Sat (Measured) ABG O2 Content ABG Base Excess Rafi Test VBG pH POC VBG pCO2 POC VBG pO2 Mixed VBG HCO3 O2 Delivery Device Oxygen Flow Rate Vent Mode Vent Rate Mechanical Rate PEEP Pressure Support Vent Sodium Potassium Chloride Carbon Dioxide Anion Gap BUN Creatinine Creat Clearance w eGFR POC Glucometer 206.68971 Random Glucose Lactic Acid Calcium Phosphorus Magnesium Total Bilirubin AST ALT Alkaline Phosphatase Creatine Kinase CK-MB (CK-2) Troponin I B-Natriuretic Peptide Total Protein Albumin TSH Free T3 Urine Color Urine Appearance Urine pH Ur Specific [place] Urine Protein Urine Glucose (UA) Urine Ketones Urine Blood Urine Nitrite Urine Bilirubin Urine Urobilinogen Ur Leukocyte Esterase Urine RBC Urine WBC Ur Epithelial Cells Urine Bacteria Hyaline Casts Urine Mucus Urine Yeast Stool Occult Blood Trace Random Vancomycin Opiates Screen Methadone Screen Barbiturate Screen Phencyclidine Screen Ur Amphetamines Screen MDMA (Ecstasy) Screen Benzodiazepines Screen Cocaine Screen U Marijuana (THC) Screen Blood Type Antibody Screen Crossmatch Spec Expiration Date 06/07/16 06/07/16 06/07/16 05:15 05:15 05:15 WBC 12.0 H RBC 4.58 Hgb 10.3 L Hct 32.9 MCV 71.7 L MCHC 31.3 L RDW 24.0 H Plt Count 201 MPV 9.1 Neutrophils % Lymphocytes % Monocytes % Eosinophils % Basophils % Band Neutrophils Metamyelocytes Myelocytes Nucleated RBCs Differential Comment Hypersegmented Neuts Toxic Granulation Dohle Bodies [place] Platelet Estimate Platelet Comment RBC Morphology Polychromasia Hypochromic-Microcytic Poikilocytosis Basophilic Stippling Anisocytosis Microcytosis Macrocytosis Spherocytes Siderocytes Sickle Cells Target Cells Tear Drop Cells Ovalocytes Stomatocytes Helmet Cells [place] Bodies [place] Cells Acanthocytes (Spur) Rouleaux Fragmented RBCs Schistocytes Morphology Comment INR 1.06 PTT (Actin FS) D-Dimer Puncture Site ABG pH ABG pCO2 at Pt Temp ABG pO2 at Pt Temp ABG HCO3 ABG O2 Sat (Measured) ABG O2 Content ABG Base Excess Rafi Test VBG pH POC VBG pCO2 POC VBG pO2 Mixed VBG HCO3 O2 Delivery Device Oxygen Flow Rate Vent Mode Vent Rate Mechanical Rate PEEP Pressure Support Vent Sodium 143 Potassium 3.7 Chloride 101 Carbon Dioxide 32 Anion Gap 10 BUN 24 H Creatinine 0.5 L Creat Clearance w eGFR > 60 POC Glucometer Random Glucose 130 H D Lactic Acid Calcium 8.7 Phosphorus 2.6 Magnesium 2.2 Total Bilirubin 0.5 AST 44 H ALT 45 Alkaline Phosphatase 54 Creatine Kinase CK-MB (CK-2) Troponin I B-Natriuretic Peptide Total Protein 5.2 L Albumin 2.0 L TSH Free T3 Urine Color Urine Appearance Urine pH Ur Specific [place] Urine Protein Urine Glucose (UA) Urine Ketones Urine Blood Urine Nitrite Urine Bilirubin Urine Urobilinogen Ur Leukocyte Esterase Urine RBC Urine WBC Ur Epithelial Cells Urine Bacteria Hyaline Casts Urine Mucus Urine Yeast Stool Occult Blood Random Vancomycin Opiates Screen Methadone Screen Barbiturate Screen Phencyclidine Screen Ur Amphetamines Screen MDMA (Ecstasy) Screen Benzodiazepines Screen Cocaine Screen U Marijuana (THC) Screen Blood Type Antibody Screen Crossmatch Spec Expiration Date 06/07/16 06/07/16 06/07/16 05:38 07:24 11:47 WBC RBC Hgb Hct MCV MCHC RDW Plt Count MPV Neutrophils % Lymphocytes % Monocytes % Eosinophils % Basophils % Band Neutrophils Metamyelocytes Myelocytes Nucleated RBCs Differential Comment Hypersegmented Neuts Toxic Granulation Dohle Bodies [place] Platelet Estimate Platelet Comment RBC Morphology Polychromasia Hypochromic-Microcytic Poikilocytosis Basophilic Stippling Anisocytosis Microcytosis Macrocytosis Spherocytes Siderocytes Sickle Cells Target Cells Tear Drop Cells Ovalocytes Stomatocytes Helmet Cells [place] Bodies [place] Cells Acanthocytes (Spur) Rouleaux Fragmented RBCs Schistocytes Morphology Comment INR PTT (Actin FS) D-Dimer Puncture Site Right radial ABG pH 7.49 H ABG pCO2 at Pt Temp 42.2 ABG pO2 at Pt Temp 77.2 ABG HCO3 31.5 H ABG O2 Sat (Measured) 95.9 ABG O2 Content 14.3 L ABG Base Excess 7.6 H Rafi Test Positive VBG pH POC VBG pCO2 POC VBG pO2 Mixed VBG HCO3 O2 Delivery Device Vent Oxygen Flow Rate 30 Vent Mode A/c Vent Rate 14 Mechanical Rate Yes PEEP 5.0 Pressure Support Vent 400 Sodium Potassium Chloride Carbon Dioxide Anion Gap BUN Creatinine Creat Clearance w eGFR POC Glucometer 158.99974 [phone] Random Glucose Lactic Acid Calcium Phosphorus Magnesium Total Bilirubin AST ALT Alkaline Phosphatase Creatine Kinase CK-MB (CK-2) Troponin I B-Natriuretic Peptide Total Protein Albumin TSH Free T3 Urine Color Urine Appearance Urine pH Ur Specific [place] Urine Protein Urine Glucose (UA) Urine Ketones Urine Blood Urine Nitrite Urine Bilirubin Urine Urobilinogen Ur Leukocyte Esterase Urine RBC Urine WBC Ur Epithelial Cells Urine Bacteria Hyaline Casts Urine Mucus Urine Yeast Stool Occult Blood Random Vancomycin Opiates Screen Methadone Screen Barbiturate Screen Phencyclidine Screen Ur Amphetamines Screen MDMA (Ecstasy) Screen Benzodiazepines Screen Cocaine Screen U Marijuana (THC) Screen Blood Type Antibody Screen Crossmatch Spec Expiration Date 06/07/16 06/08/16 06/08/16 17:10 05:10 05:10 WBC 9.5 RBC 4.19 Hgb 9.7 L Hct 30.4 L MCV 72.6 L MCHC 31.7 L RDW 24.4 H Plt Count 185 MPV 9.1 Neutrophils % Lymphocytes % Monocytes % Eosinophils % Basophils % Band Neutrophils Metamyelocytes Myelocytes Nucleated RBCs Cancelled Differential Comment Hypersegmented Neuts Cancelled Toxic Granulation Cancelled Dohle Bodies Cancelled [place] Cancelled Platelet Estimate Platelet Comment RBC Morphology Polychromasia Cancelled Hypochromic-Microcytic Cancelled Poikilocytosis Cancelled Basophilic Stippling Cancelled Anisocytosis Cancelled Microcytosis Cancelled Macrocytosis Cancelled Spherocytes Cancelled Siderocytes Cancelled Sickle Cells Cancelled Target Cells Cancelled Tear Drop Cells Cancelled Ovalocytes Cancelled Stomatocytes Cancelled Helmet Cells Cancelled [place] Bodies Cancelled [place] Cancelled [place] Cells Cancelled Acanthocytes (Spur) Cancelled Rouleaux Cancelled Fragmented RBCs Cancelled Schistocytes Cancelled Morphology Comment Cancelled INR PTT (Actin FS) D-Dimer Puncture Site ABG pH ABG pCO2 at Pt Temp ABG pO2 at Pt Temp ABG HCO3 ABG O2 Sat (Measured) ABG O2 Content ABG Base Excess Rafi Test VBG pH POC VBG pCO2 POC VBG pO2 Mixed VBG HCO3 O2 Delivery Device Oxygen Flow Rate Vent Mode Vent Rate Mechanical Rate PEEP Pressure Support Vent Sodium 143 Potassium 3.8 Chloride 102 Carbon Dioxide 31 Anion Gap 10 BUN 23 H Creatinine 0.5 L Creat Clearance w eGFR > 60 POC Glucometer [phone] Random Glucose 229 H D Lactic Acid Calcium 8.1 L Phosphorus Magnesium Total Bilirubin 0.4 AST 27 D ALT 34 D Alkaline Phosphatase 50 Creatine Kinase CK-MB (CK-2) Troponin I B-Natriuretic Peptide Total Protein 4.9 L Albumin 1.8 L TSH Free T3 Urine Color Urine Appearance Urine pH Ur Specific [place] Urine Protein Urine Glucose (UA) Urine Ketones Urine Blood Urine Nitrite Urine Bilirubin Urine Urobilinogen Ur Leukocyte Esterase Urine RBC Urine WBC Ur Epithelial Cells Urine Bacteria Hyaline Casts Urine Mucus Urine Yeast Stool Occult Blood Random Vancomycin Opiates Screen Methadone Screen Barbiturate Screen Phencyclidine Screen Ur Amphetamines Screen MDMA (Ecstasy) Screen Benzodiazepines Screen Cocaine Screen U Marijuana (THC) Screen Blood Type Antibody Screen Crossmatch Spec Expiration Date 06/08/16 06/08/16 06/08/16 07:15 09:15 11:36 WBC RBC Hgb Hct MCV MCHC RDW Plt Count MPV Neutrophils % Lymphocytes % Monocytes % Eosinophils % Basophils % Band Neutrophils Metamyelocytes Myelocytes Nucleated RBCs Differential Comment Hypersegmented Neuts Toxic Granulation Dohle Bodies [place] Platelet Estimate Platelet Comment RBC Morphology Polychromasia Hypochromic-Microcytic Poikilocytosis Basophilic Stippling Anisocytosis Microcytosis Macrocytosis Spherocytes Siderocytes Sickle Cells Target Cells Tear Drop Cells Ovalocytes Stomatocytes Helmet Cells [place] Bodies [place] E Cells Acanthocytes (Spur) Rouleaux Fragmented RBCs Schistocytes Morphology Comment INR PTT (Actin FS) D-Dimer Puncture Site Right radial ABG pH 7.47 H ABG pCO2 at Pt Temp 47.1 H ABG pO2 at Pt Temp 69.1 L ABG HCO3 33.4 H ABG O2 Sat (Measured) 93.8 ABG O2 Content 12.7 L ABG Base Excess 8.9 H Rafi Test Positive VBG pH POC VBG pCO2 POC VBG pO2 Mixed VBG HCO3 O2 Delivery Device Vent Oxygen Flow Rate 30% Vent Mode A/c Vent Rate 14 Mechanical Rate Yes PEEP 5.0 Pressure Support Vent 400 Sodium Potassium Chloride Carbon Dioxide Anion Gap BUN Creatinine Creat Clearance w eGFR POC Glucometer 209.18662 Random Glucose Lactic Acid Calcium Phosphorus Magnesium Total Bilirubin AST ALT Alkaline Phosphatase Creatine Kinase CK-MB (CK-2) Troponin I B-Natriuretic Peptide Total Protein Albumin TSH Free T3 Urine Color Red Urine Appearance Cloudy Urine pH 5.0 Ur Specific [place] 1.029 Urine Protein 2+ H Urine Glucose (UA) 1+ H D Urine Ketones Negative Urine Blood 3+ H Urine Nitrite Negative Urine Bilirubin Negative Urine Urobilinogen Negative Ur Leukocyte Esterase 2+ H Urine RBC 4284 Urine WBC 75 Ur Epithelial Cells Rare Urine Bacteria Hyaline Casts Urine Mucus Few Urine Yeast Many Stool Occult Blood Random Vancomycin Opiates Screen Methadone Screen Barbiturate Screen Phencyclidine Screen Ur Amphetamines Screen MDMA (Ecstasy) Screen Benzodiazepines Screen Cocaine Screen U Marijuana (THC) Screen Blood Type Antibody Screen Crossmatch Spec Expiration Date 06/08/16 06/09/16 06/09/16 16:47 05:05 05:05 WBC 9.8 RBC 4.11 Hgb 9.4 L Hct 30.3 L MCV 73.8 L MCHC 31.0 L RDW 24.5 H Plt Count 187 MPV 9.2 Neutrophils % Lymphocytes % Monocytes % Eosinophils % Basophils % Band Neutrophils Metamyelocytes Myelocytes Nucleated RBCs Differential Comment Hypersegmented Neuts Toxic Granulation Dohle Bodies [place] Platelet Estimate Platelet Comment RBC Morphology Polychromasia Hypochromic-Microcytic 1+ Poikilocytosis Basophilic Stippling Anisocytosis 2+ Microcytosis 2+ Macrocytosis Spherocytes Siderocytes Sickle Cells Target Cells Tear Drop Cells Ovalocytes Stomatocytes Helmet Cells [place] Bodies [place] E Cells Acanthocytes (Spur) Rouleaux Fragmented RBCs Schistocytes Morphology Comment INR 1.02 PTT (Actin FS) 28.3 D-Dimer Puncture Site ABG pH ABG pCO2 at Pt Temp ABG pO2 at Pt Temp ABG HCO3 ABG O2 Sat (Measured) ABG O2 Content ABG Base Excess Rafi Test VBG pH POC VBG pCO2 POC VBG pO2 Mixed VBG HCO3 O2 Delivery Device Oxygen Flow Rate Vent Mode Vent Rate Mechanical Rate PEEP Pressure Support Vent Sodium Potassium Chloride Carbon Dioxide Anion Gap BUN Creatinine Creat Clearance w eGFR POC Glucometer 250.76800 Random Glucose Lactic Acid Calcium Phosphorus Magnesium Total Bilirubin AST ALT Alkaline Phosphatase Creatine Kinase CK-MB (CK-2) Troponin I B-Natriuretic Peptide Total Protein Albumin TSH Free T3 Urine Color Urine Appearance Urine pH Ur Specific [place] Urine Protein Urine Glucose (UA) Urine Ketones Urine Blood Urine Nitrite Urine Bilirubin Urine Urobilinogen Ur Leukocyte Esterase Urine RBC Urine WBC Ur Epithelial Cells Urine Bacteria Hyaline Casts Urine Mucus Urine Yeast Stool Occult Blood Random Vancomycin Opiates Screen Methadone Screen Barbiturate Screen Phencyclidine Screen Ur Amphetamines Screen MDMA (Ecstasy) Screen Benzodiazepines Screen Cocaine Screen U Marijuana (THC) Screen Blood Type Antibody Screen Crossmatch Spec Expiration Date 06/09/16 06/09/16 06/09/16 05:05 07:15 10:49 WBC RBC Hgb Hct MCV MCHC RDW Plt Count MPV Neutrophils % Lymphocytes % Monocytes % Eosinophils % Basophils % Band Neutrophils Metamyelocytes Myelocytes Nucleated RBCs Differential Comment Hypersegmented Neuts Toxic Granulation Dohle Bodies [place] Platelet Estimate Platelet Comment RBC Morphology Polychromasia Hypochromic-Microcytic Poikilocytosis Basophilic Stippling Anisocytosis Microcytosis Macrocytosis Spherocytes Siderocytes Sickle Cells Target Cells Tear Drop Cells Ovalocytes Stomatocytes Helmet Cells [place] Bodies [place] Cells Acanthocytes (Spur) Rouleaux Fragmented RBCs Schistocytes Morphology Comment INR PTT (Actin FS) D-Dimer Puncture Site Right radial ABG pH 7.44 ABG pCO2 at Pt Temp 47.7 H ABG pO2 at Pt Temp 71.4 ABG HCO3 32.2 H ABG O2 Sat (Measured) 94.4 ABG O2 Content 12.4 L ABG Base Excess 7.5 H Rafi Test Positive VBG pH POC VBG pCO2 POC VBG pO2 Mixed VBG HCO3 O2 Delivery Device Vent Oxygen Flow Rate 30% Vent Mode A/c Vent Rate 14 Mechanical Rate Y PEEP 5.0 Pressure Support Vent 350 Sodium 141 Potassium 4.3 Chloride 100 Carbon Dioxide 34 H Anion Gap 7 L BUN 19 H Creatinine 0.6 Creat Clearance w eGFR > 60 POC Glucometer [phone] Random Glucose 216 H Lactic Acid Calcium 8.5 Phosphorus Magnesium Total Bilirubin 0.4 AST 24 ALT 31 Alkaline Phosphatase 56 Creatine Kinase CK-MB (CK-2) Troponin I B-Natriuretic Peptide Total Protein 5.3 L Albumin 2.0 L TSH Free T3 Urine Color Urine Appearance Urine pH Ur Specific [place] Urine Protein Urine Glucose (UA) Urine Ketones Urine Blood Urine Nitrite Urine Bilirubin Urine Urobilinogen Ur Leukocyte Esterase Urine RBC Urine WBC Ur Epithelial Cells Urine Bacteria Hyaline Casts Urine Mucus Urine Yeast Stool Occult Blood Random Vancomycin Opiates Screen Methadone Screen Barbiturate Screen Phencyclidine Screen Ur Amphetamines Screen MDMA (Ecstasy) Screen Benzodiazepines Screen Cocaine Screen U Marijuana (THC) Screen Blood Type Antibody Screen Crossmatch Spec Expiration Date 06/09/16 06/10/16 06/10/16 16:35 05:15 05:15 WBC 10.8 H RBC 4.23 Hgb 9.8 L Hct 31.3 L MCV 74.0 L MCHC 31.2 L RDW 25.2 H Plt Count 198 MPV 8.9 Neutrophils % Lymphocytes % Monocytes % Eosinophils % Basophils % Band Neutrophils Metamyelocytes Myelocytes Nucleated RBCs Differential Comment Hypersegmented Neuts Toxic Granulation Dohle Bodies [place] Platelet Estimate Platelet Comment RBC Morphology Polychromasia Hypochromic-Microcytic Poikilocytosis Basophilic Stippling Anisocytosis Microcytosis Macrocytosis Spherocytes Siderocytes Sickle Cells Target Cells Tear Drop Cells Ovalocytes Stomatocytes Helmet Cells [place] Bodies [place] Cells Acanthocytes (Spur) Rouleaux Fragmented RBCs Schistocytes Morphology Comment INR PTT (Actin FS) D-Dimer Puncture Site ABG pH ABG pCO2 at Pt Temp ABG pO2 at Pt Temp ABG HCO3 ABG O2 Sat (Measured) ABG O2 Content ABG Base Excess Rafi Test VBG pH POC VBG pCO2 POC VBG pO2 Mixed VBG HCO3 O2 Delivery Device Oxygen Flow Rate Vent Mode Vent Rate Mechanical Rate PEEP Pressure Support Vent Sodium 142 Potassium 4.3 Chloride 99 Carbon Dioxide 36 H Anion Gap 7 L BUN 17 Creatinine 0.5 L Creat Clearance w eGFR POC Glucometer 250.44190 Random Glucose 193 H Lactic Acid Calcium 8.5 Phosphorus Magnesium Total Bilirubin AST ALT Alkaline Phosphatase Creatine Kinase CK-MB (CK-2) Troponin I B-Natriuretic Peptide Total Protein Albumin TSH Free T3 Urine Color Urine Appearance Urine pH Ur Specific [place] Urine Protein Urine Glucose (UA) Urine Ketones Urine Blood Urine Nitrite Urine Bilirubin Urine Urobilinogen Ur Leukocyte Esterase Urine RBC Urine WBC Ur Epithelial Cells Urine Bacteria Hyaline Casts Urine Mucus Urine Yeast Stool Occult Blood Random Vancomycin Opiates Screen Methadone Screen Barbiturate Screen Phencyclidine Screen Ur Amphetamines Screen MDMA (Ecstasy) Screen Benzodiazepines Screen Cocaine Screen U Marijuana (THC) Screen Blood Type Antibody Screen Crossmatch Spec Expiration Date 06/10/16 06/10/16 06/10/16 06:30 10:50 17:21 WBC RBC Hgb Hct MCV MCHC RDW Plt Count MPV Neutrophils % Lymphocytes % Monocytes % Eosinophils % Basophils % Band Neutrophils Metamyelocytes Myelocytes Nucleated RBCs Differential Comment Hypersegmented Neuts Toxic Granulation Dohle Bodies [place] Platelet Estimate Platelet Comment RBC Morphology Polychromasia Hypochromic-Microcytic Poikilocytosis Basophilic Stippling Anisocytosis Microcytosis Macrocytosis Spherocytes Siderocytes Sickle Cells Target Cells Tear Drop Cells Ovalocytes Stomatocytes Helmet Cells [place] Bodies [place] Luis E Cells Acanthocytes (Spur) Rouleaux Fragmented RBCs Schistocytes Morphology Comment INR PTT (Actin FS) D-Dimer Puncture Site ABG pH ABG pCO2 at Pt Temp ABG pO2 at Pt Temp ABG HCO3 ABG O2 Sat (Measured) ABG O2 Content ABG Base Excess Rafi Test VBG pH POC VBG pCO2 POC VBG pO2 Mixed VBG HCO3 O2 Delivery Device Oxygen Flow Rate Vent Mode Vent Rate Mechanical Rate PEEP Pressure Support Vent Sodium Potassium Chloride Carbon Dioxide Anion Gap BUN Creatinine Creat Clearance w eGFR POC Glucometer 231.32671 215.80246 250.07345 Random Glucose Lactic Acid Calcium Phosphorus Magnesium Total Bilirubin AST ALT Alkaline Phosphatase Creatine Kinase CK-MB (CK-2) Troponin I B-Natriuretic Peptide Total Protein Albumin TSH Free T3 Urine Color Urine Appearance Urine pH Ur Specific [place] Urine Protein Urine Glucose (UA) Urine Ketones Urine Blood Urine Nitrite Urine Bilirubin Urine Urobilinogen Ur Leukocyte Esterase Urine RBC Urine WBC Ur Epithelial Cells Urine Bacteria Hyaline Casts Urine Mucus Urine Yeast Stool Occult Blood Random Vancomycin Opiates Screen Methadone Screen Barbiturate Screen Phencyclidine Screen Ur Amphetamines Screen MDMA (Ecstasy) Screen Benzodiazepines Screen Cocaine Screen U Marijuana (THC) Screen Blood Type Antibody Screen Crossmatch Spec Expiration Date 06/11/16 06/11/16 06/11/16 05:05 05:39 11:40 WBC 12.6 H RBC 4.54 Hgb 10.3 L Hct 33.4 MCV 73.7 L MCHC 30.8 L RDW 25.8 H Plt Count 219 MPV 9.3 Neutrophils % Lymphocytes % Monocytes % Eosinophils % Basophils % Band Neutrophils Metamyelocytes Myelocytes Nucleated RBCs Differential Comment Hypersegmented Neuts Toxic Granulation Dohle Bodies Haz[place] Rods Platelet Estimate Adequate Platelet Comment No clumping noted RBC Morphology Polychromasia Hypochromic-Microcytic 1+ Poikilocytosis 2+ Basophilic Stippling Anisocytosis 3+ Microcytosis 1+ Macrocytosis Spherocytes Siderocytes Sickle Cells Target Cells 1+ Tear Drop Cells Ovalocytes 1+ Stomatocytes Helmet Cells [place] Bodies [place] Rings Luis E Cells Acanthocytes (Spur) Rouleaux Fragmented RBCs Schistocytes Morphology Comment INR PTT (Actin FS) D-Dimer Puncture Site ABG pH ABG pCO2 at Pt Temp ABG pO2 at Pt Temp ABG HCO3 ABG O2 Sat (Measured) ABG O2 Content ABG Base Excess Rafi Test VBG pH POC VBG pCO2 POC VBG pO2 Mixed VBG HCO3 O2 Delivery Device Oxygen Flow Rate Vent Mode Vent Rate Mechanical Rate PEEP Pressure Support Vent Sodium Potassium Chloride Carbon Dioxide Anion Gap BUN Creatinine Creat Clearance w eGFR POC Glucometer [phone] Random Glucose Lactic Acid Calcium Phosphorus Magnesium Total Bilirubin AST ALT Alkaline Phosphatase Creatine Kinase CK-MB (CK-2) Troponin I B-Natriuretic Peptide Total Protein Albumin TSH Free T3 Urine Color Urine Appearance Urine pH Ur Specific [place] Urine Protein Urine Glucose (UA) Urine Ketones Urine Blood Urine Nitrite Urine Bilirubin Urine Urobilinogen Ur Leukocyte Esterase Urine RBC Urine WBC Ur Epithelial Cells Urine Bacteria Hyaline Casts Urine Mucus Urine Yeast Stool Occult Blood Random Vancomycin Opiates Screen Methadone Screen Barbiturate Screen Phencyclidine Screen Ur Amphetamines Screen MDMA (Ecstasy) Screen Benzodiazepines Screen Cocaine Screen U Marijuana (THC) Screen Blood Type Antibody Screen Crossmatch Spec Expiration Date 06/11/16 06/12/16 06/12/16 16:50 05:00 05:00 WBC 11.4 H RBC 4.17 Hgb 9.6 L Hct 30.9 L MCV 74.0 L MCHC 31.2 L RDW 25.7 H Plt Count 231 MPV 9.2 Neutrophils % Lymphocytes % Monocytes % Eosinophils % Basophils % Band Neutrophils Metamyelocytes Myelocytes Nucleated RBCs Differential Comment Hypersegmented Neuts Toxic Granulation Dohle Bodies Haz[place] Rods Platelet Estimate Platelet Comment RBC Morphology Polychromasia Hypochromic-Microcytic Poikilocytosis Basophilic Stippling Anisocytosis Microcytosis Macrocytosis Spherocytes Siderocytes Sickle Cells Target Cells Tear Drop Cells Ovalocytes Stomatocytes Helmet Cells [place] Bodies [place] Rings Luis E Cells Acanthocytes (Spur) Rouleaux Fragmented RBCs Schistocytes Morphology Comment INR PTT (Actin FS) D-Dimer Puncture Site ABG pH ABG pCO2 at Pt Temp ABG pO2 at Pt Temp ABG HCO3 ABG O2 Sat (Measured) ABG O2 Content ABG Base Excess Rafi Test VBG pH POC VBG pCO2 POC VBG pO2 Mixed VBG HCO3 O2 Delivery Device Oxygen Flow Rate Vent Mode Vent Rate Mechanical Rate PEEP Pressure Support Vent Sodium 141 Potassium 4.5 Chloride 102 Carbon Dioxide 33 H Anion Gap 6 L BUN 16 Creatinine 0.5 L Creat Clearance w eGFR > 60 POC Glucometer [phone] Random Glucose 151 H D Lactic Acid Calcium 8.3 L Phosphorus Magnesium 2.2 Total Bilirubin 0.3 D AST 17 D ALT 21 D Alkaline Phosphatase 52 Creatine Kinase CK-MB (CK-2) Troponin I B-Natriuretic Peptide Total Protein 5.1 L Albumin 1.9 L TSH Free T3 Urine Color Urine Appearance Urine pH Ur Specific [place] Urine Protein Urine Glucose (UA) Urine Ketones Urine Blood Urine Nitrite Urine Bilirubin Urine Urobilinogen Ur Leukocyte Esterase Urine RBC Urine WBC Ur Epithelial Cells Urine Bacteria Hyaline Casts Urine Mucus Urine Yeast Stool Occult Blood Random Vancomycin Opiates Screen Methadone Screen Barbiturate Screen Phencyclidine Screen Ur Amphetamines Screen MDMA (Ecstasy) Screen Benzodiazepines Screen Cocaine Screen U Marijuana (THC) Screen Blood Type Antibody Screen Crossmatch Spec Expiration Date 06/12/16 06/13/16 06/13/16 11:44 05:20 05:20 WBC 9.9 RBC 4.21 Hgb 9.8 L Hct 31.4 L MCV 74.5 L MCHC 31.4 L RDW 26.2 H Plt Count 237 MPV 9.1 Neutrophils % Lymphocytes % Monocytes % Eosinophils % Basophils % Band Neutrophils Metamyelocytes Myelocytes Nucleated RBCs Differential Comment Hypersegmented Neuts Toxic Granulation Dohle Bodies [place] Platelet Estimate Platelet Comment RBC Morphology Polychromasia Hypochromic-Microcytic Poikilocytosis Basophilic Stippling Anisocytosis Microcytosis Macrocytosis Spherocytes Siderocytes Sickle Cells Target Cells Tear Drop Cells Ovalocytes Stomatocytes Helmet Cells [place] Bodies [place] Rings Luis E Cells Acanthocytes (Spur) Rouleaux Fragmented RBCs Schistocytes Morphology Comment INR PTT (Actin FS) D-Dimer Puncture Site ABG pH ABG pCO2 at Pt Temp ABG pO2 at Pt Temp ABG HCO3 ABG O2 Sat (Measured) ABG O2 Content ABG Base Excess Rafi Test VBG pH POC VBG pCO2 POC VBG pO2 Mixed VBG HCO3 O2 Delivery Device Oxygen Flow Rate Vent Mode Vent Rate Mechanical Rate PEEP Pressure Support Vent Sodium 142 Potassium 4.6 Chloride 102 Carbon Dioxide 33 H Anion Gap 7 L BUN 19 H Creatinine 0.5 L Creat Clearance w eGFR > 60 POC Glucometer [phone] Random Glucose 183 H D Lactic Acid Calcium 8.5 Phosphorus Magnesium 2.2 Total Bilirubin 0.3 AST 16 ALT 19 Alkaline Phosphatase 55 Creatine Kinase CK-MB (CK-2) Troponin I B-Natriuretic Peptide Total Protein 5.3 L Albumin 2.0 L TSH Free T3 Urine Color Urine Appearance Urine pH Ur Specific [place] Urine Protein Urine Glucose (UA) Urine Ketones Urine Blood Urine Nitrite Urine Bilirubin Urine Urobilinogen Ur Leukocyte Esterase Urine RBC Urine WBC Ur Epithelial Cells Urine Bacteria Hyaline Casts Urine Mucus Urine Yeast Stool Occult Blood Random Vancomycin Opiates Screen Methadone Screen Barbiturate Screen Phencyclidine Screen Ur Amphetamines Screen MDMA (Ecstasy) Screen Benzodiazepines Screen Cocaine Screen U Marijuana (THC) Screen Blood Type Antibody Screen Crossmatch Spec Expiration Date 06/13/16 06/13/16 06/13/16 05:45 10:39 16:12 WBC RBC Hgb Hct MCV MCHC RDW Plt Count MPV Neutrophils % Lymphocytes % Monocytes % Eosinophils % Basophils % Band Neutrophils Metamyelocytes Myelocytes Nucleated RBCs Differential Comment Hypersegmented Neuts Toxic Granulation Dohle Bodies [place] Platelet Estimate Platelet Comment RBC Morphology Polychromasia Hypochromic-Microcytic Poikilocytosis Basophilic Stippling Anisocytosis Microcytosis Macrocytosis Spherocytes Siderocytes Sickle Cells Target Cells Tear Drop Cells Ovalocytes Stomatocytes Helmet Cells [place] Bodies [place] Luis E Cells Acanthocytes (Spur) Rouleaux Fragmented RBCs Schistocytes Morphology Comment INR PTT (Actin FS) D-Dimer Puncture Site ABG pH ABG pCO2 at Pt Temp ABG pO2 at Pt Temp ABG HCO3 ABG O2 Sat (Measured) ABG O2 Content ABG Base Excess Rafi Test VBG pH POC VBG pCO2 POC VBG pO2 Mixed VBG HCO3 O2 Delivery Device Oxygen Flow Rate Vent Mode Vent Rate Mechanical Rate PEEP Pressure Support Vent Sodium Potassium Chloride Carbon Dioxide Anion Gap BUN Creatinine Creat Clearance w eGFR POC Glucometer 218.72247 196.41808 [phone] Random Glucose Lactic Acid Calcium Phosphorus Magnesium Total Bilirubin AST ALT Alkaline Phosphatase Creatine Kinase CK-MB (CK-2) Troponin I B-Natriuretic Peptide Total Protein Albumin TSH Free T3 Urine Color Urine Appearance Urine pH Ur Specific [place] Urine Protein Urine Glucose (UA) Urine Ketones Urine Blood Urine Nitrite Urine Bilirubin Urine Urobilinogen Ur Leukocyte Esterase Urine RBC Urine WBC Ur Epithelial Cells Urine Bacteria Hyaline Casts Urine Mucus Urine Yeast Stool Occult Blood Random Vancomycin Opiates Screen Methadone Screen Barbiturate Screen Phencyclidine Screen Ur Amphetamines Screen MDMA (Ecstasy) Screen Benzodiazepines Screen Cocaine Screen U Marijuana (THC) Screen Blood Type Antibody Screen Crossmatch Spec Expiration Date 06/14/16 06/14/16 06/14/16 05:05 05:54 06:00 WBC 9.6 RBC 3.80 Hgb 8.9 L Hct 28.4 L MCV 74.6 L MCHC 31.5 L RDW 26.5 H Plt Count 250 MPV 9.1 Neutrophils % Lymphocytes % Monocytes % Eosinophils % Basophils % Band Neutrophils Metamyelocytes Myelocytes Nucleated RBCs Differential Comment Hypersegmented Neuts Toxic Granulation Dohle Bodies [place] Platelet Estimate Platelet Comment RBC Morphology Polychromasia Hypochromic-Microcytic Poikilocytosis Basophilic Stippling Anisocytosis Microcytosis Macrocytosis Spherocytes Siderocytes Sickle Cells Target Cells Tear Drop Cells Ovalocytes Stomatocytes Helmet Cells [place] Bodies [place] Rings Luis E Cells Acanthocytes (Spur) Rouleaux Fragmented RBCs Schistocytes Morphology Comment INR PTT (Actin FS) D-Dimer Puncture Site ABG pH ABG pCO2 at Pt Temp ABG pO2 at Pt Temp ABG HCO3 ABG O2 Sat (Measured) ABG O2 Content ABG Base Excess Rafi Test VBG pH POC VBG pCO2 POC VBG pO2 Mixed VBG HCO3 O2 Delivery Device Oxygen Flow Rate Vent Mode Vent Rate Mechanical Rate PEEP Pressure Support Vent Sodium 142 Potassium 4.4 Chloride 99 Carbon Dioxide 35 H Anion Gap 8 BUN 21 H Creatinine 0.5 L Creat Clearance w eGFR > 60 POC Glucometer [phone] Random Glucose 155 H Lactic Acid Calcium 8.9 Phosphorus 2.9 Magnesium 2.1 Total Bilirubin 0.3 AST 18 ALT 17 Alkaline Phosphatase 54 Creatine Kinase CK-MB (CK-2) Troponin I B-Natriuretic Peptide Total Protein 5.2 L Albumin 2.0 L TSH Free T3 Urine Color Urine Appearance Urine pH Ur Specific [place] Urine Protein Urine Glucose (UA) Urine Ketones Urine Blood Urine Nitrite Urine Bilirubin Urine Urobilinogen Ur Leukocyte Esterase Urine RBC Urine WBC Ur Epithelial Cells Urine Bacteria Hyaline Casts Urine Mucus Urine Yeast Stool Occult Blood Random Vancomycin Opiates Screen Methadone Screen Barbiturate Screen Phencyclidine Screen Ur Amphetamines Screen MDMA (Ecstasy) Screen Benzodiazepines Screen Cocaine Screen U Marijuana (THC) Screen Blood Type Antibody Screen Crossmatch Spec Expiration Date 06/14/16 06/14/16 06/14/16 07:15 10:51 16:34 WBC RBC Hgb Hct MCV MCHC RDW Plt Count MPV Neutrophils % Lymphocytes % Monocytes % Eosinophils % Basophils % Band Neutrophils Metamyelocytes Myelocytes Nucleated RBCs Differential Comment Hypersegmented Neuts Toxic Granulation Dohle Bodies [place] Platelet Estimate Platelet Comment RBC Morphology Polychromasia Hypochromic-Microcytic Poikilocytosis Basophilic Stippling Anisocytosis Microcytosis Macrocytosis Spherocytes Siderocytes Sickle Cells Target Cells Tear Drop Cells Ovalocytes Stomatocytes Helmet Cells [place] Bodies [place] Cells Acanthocytes (Spur) Rouleaux Fragmented RBCs Schistocytes Morphology Comment INR PTT (Actin FS) D-Dimer Puncture Site Right radial ABG pH 7.47 H ABG pCO2 at Pt Temp 46.4 H ABG pO2 at Pt Temp 71.9 ABG HCO3 33.0 H ABG O2 Sat (Measured) 94.5 ABG O2 Content 12.4 L ABG Base Excess 8.6 H Rafi Test Positive VBG pH POC VBG pCO2 POC VBG pO2 Mixed VBG HCO3 O2 Delivery Device Mechanical vent Oxygen Flow Rate 30% Vent Mode A/c Vent Rate 14 Mechanical Rate Yes PEEP 5.0 Pressure Support Vent 350ml Sodium Potassium Chloride Carbon Dioxide Anion Gap BUN Creatinine Creat Clearance w eGFR POC Glucometer 192.02044 [phone] Random Glucose Lactic Acid Calcium Phosphorus Magnesium Total Bilirubin AST ALT Alkaline Phosphatase Creatine Kinase CK-MB (CK-2) Troponin I B-Natriuretic Peptide Total Protein Albumin TSH Free T3 Urine Color Urine Appearance Urine pH Ur Specific [place] Urine Protein Urine Glucose (UA) Urine Ketones Urine Blood Urine Nitrite Urine Bilirubin Urine Urobilinogen Ur Leukocyte Esterase Urine RBC Urine WBC Ur Epithelial Cells Urine Bacteria Hyaline Casts Urine Mucus Urine Yeast Stool Occult Blood Random Vancomycin Opiates Screen Methadone Screen Barbiturate Screen Phencyclidine Screen Ur Amphetamines Screen MDMA (Ecstasy) Screen Benzodiazepines Screen Cocaine Screen U Marijuana (THC) Screen Blood Type Antibody Screen Crossmatch Spec Expiration Date 06/15/16 06/15/16 06/15/16 05:20 05:50 11:39 WBC 8.4 RBC 4.41 Hgb 10.5 L D Hct 33.0 D MCV 74.7 L MCHC 31.8 L RDW 26.5 H Plt Count 248 MPV 8.8 Neutrophils % Lymphocytes % Monocytes % Eosinophils % Basophils % Band Neutrophils Metamyelocytes Myelocytes Nucleated RBCs Differential Comment Hypersegmented Neuts Toxic Granulation Dohle Bodies [place] Platelet Estimate Platelet Comment RBC Morphology Polychromasia Hypochromic-Microcytic Poikilocytosis Basophilic Stippling Anisocytosis 2+ Microcytosis 2+ Macrocytosis Spherocytes Siderocytes Sickle Cells Target Cells Tear Drop Cells Ovalocytes Stomatocytes Helmet Cells [place] Bodies [place] Cells Acanthocytes (Spur) Rouleaux Fragmented RBCs Schistocytes Morphology Comment INR PTT (Actin FS) D-Dimer Puncture Site ABG pH ABG pCO2 at Pt Temp ABG pO2 at Pt Temp ABG HCO3 ABG O2 Sat (Measured) ABG O2 Content ABG Base Excess Rafi Test VBG pH POC VBG pCO2 POC VBG pO2 Mixed VBG HCO3 O2 Delivery Device Oxygen Flow Rate Vent Mode Vent Rate Mechanical Rate PEEP Pressure Support Vent Sodium Potassium Chloride Carbon Dioxide Anion Gap BUN Creatinine Creat Clearance w eGFR POC Glucometer 108.78500 [phone] Random Glucose Lactic Acid Calcium Phosphorus Magnesium Total Bilirubin AST ALT Alkaline Phosphatase Creatine Kinase CK-MB (CK-2) Troponin I B-Natriuretic Peptide Total Protein Albumin TSH Free T3 Urine Color Urine Appearance Urine pH Ur Specific [place] Urine Protein Urine Glucose (UA) Urine Ketones Urine Blood Urine Nitrite Urine Bilirubin Urine Urobilinogen Ur Leukocyte Esterase Urine RBC Urine WBC Ur Epithelial Cells Urine Bacteria Hyaline Casts Urine Mucus Urine Yeast Stool Occult Blood Random Vancomycin Opiates Screen Methadone Screen Barbiturate Screen Phencyclidine Screen Ur Amphetamines Screen MDMA (Ecstasy) Screen Benzodiazepines Screen Cocaine Screen U Marijuana (THC) Screen Blood Type Antibody Screen Crossmatch Spec Expiration Date 06/15/16 06/16/16 06/16/16 17:31 05:52 11:45 WBC RBC Hgb Hct MCV MCHC RDW Plt Count MPV Neutrophils % Lymphocytes % Monocytes % Eosinophils % Basophils % Band Neutrophils Metamyelocytes Myelocytes Nucleated RBCs Differential Comment Hypersegmented Neuts Toxic Granulation Dohle Bodies [place] Platelet Estimate Platelet Comment RBC Morphology Polychromasia Hypochromic-Microcytic Poikilocytosis Basophilic Stippling Anisocytosis Microcytosis Macrocytosis Spherocytes Siderocytes Sickle Cells Target Cells Tear Drop Cells Ovalocytes Stomatocytes Helmet Cells [place] Bodies [place] Rings Luis E Cells Acanthocytes (Spur) Rouleaux Fragmented RBCs Schistocytes Morphology Comment INR PTT (Actin FS) D-Dimer Puncture Site ABG pH ABG pCO2 at Pt Temp ABG pO2 at Pt Temp ABG HCO3 ABG O2 Sat (Measured) ABG O2 Content ABG Base Excess Rafi Test VBG pH POC VBG pCO2 POC VBG pO2 Mixed VBG HCO3 O2 Delivery Device Oxygen Flow Rate Vent Mode Vent Rate Mechanical Rate PEEP Pressure Support Vent Sodium Potassium Chloride Carbon Dioxide Anion Gap BUN Creatinine Creat Clearance w eGFR POC Glucometer [phone] 130 Random Glucose Lactic Acid Calcium Phosphorus Magnesium Total Bilirubin AST ALT Alkaline Phosphatase Creatine Kinase CK-MB (CK-2) Troponin I B-Natriuretic Peptide Total Protein Albumin TSH Free T3 Urine Color Urine Appearance Urine pH Ur Specific [place] Urine Protein Urine Glucose (UA) Urine Ketones Urine Blood Urine Nitrite Urine Bilirubin Urine Urobilinogen Ur Leukocyte Esterase Urine RBC Urine WBC Ur Epithelial Cells Urine Bacteria Hyaline Casts Urine Mucus Urine Yeast Stool Occult Blood Random Vancomycin Opiates Screen Methadone Screen Barbiturate Screen Phencyclidine Screen Ur Amphetamines Screen MDMA (Ecstasy) Screen Benzodiazepines Screen Cocaine Screen U Marijuana (THC) Screen Blood Type Antibody Screen Crossmatch Spec Expiration Date 06/16/16 06/17/16 06/17/16 15:44 06:07 11:22 WBC RBC Hgb Hct MCV MCHC RDW Plt Count MPV Neutrophils % Lymphocytes % Monocytes % Eosinophils % Basophils % Band Neutrophils Metamyelocytes Myelocytes Nucleated RBCs Differential Comment Hypersegmented Neuts Toxic Granulation Dohle Bodies [place] Platelet Estimate Platelet Comment RBC Morphology Polychromasia Hypochromic-Microcytic Poikilocytosis Basophilic Stippling Anisocytosis Microcytosis Macrocytosis Spherocytes Siderocytes Sickle Cells Target Cells Tear Drop Cells Ovalocytes Stomatocytes Helmet Cells [place] Bodies [place] Rings Luis E Cells Acanthocytes (Spur) Rouleaux Fragmented RBCs Schistocytes Morphology Comment INR PTT (Actin FS) D-Dimer Puncture Site ABG pH ABG pCO2 at Pt Temp ABG pO2 at Pt Temp ABG HCO3 ABG O2 Sat (Measured) ABG O2 Content ABG Base Excess Rafi Test VBG pH POC VBG pCO2 POC VBG pO2 Mixed VBG HCO3 O2 Delivery Device Oxygen Flow Rate Vent Mode Vent Rate Mechanical Rate PEEP Pressure Support Vent Sodium Potassium Chloride Carbon Dioxide Anion Gap BUN Creatinine Creat Clearance w eGFR POC Glucometer 220 80 126 Random Glucose Lactic Acid Calcium Phosphorus Magnesium Total Bilirubin AST ALT Alkaline Phosphatase Creatine Kinase CK-MB (CK-2) Troponin I B-Natriuretic Peptide Total Protein Albumin TSH Free T3 Urine Color Urine Appearance Urine pH Ur Specific [place] Urine Protein Urine Glucose (UA) Urine Ketones Urine Blood Urine Nitrite Urine Bilirubin Urine Urobilinogen Ur Leukocyte Esterase Urine RBC Urine WBC Ur Epithelial Cells Urine Bacteria Hyaline Casts Urine Mucus Urine Yeast Stool Occult Blood Random Vancomycin Opiates Screen Methadone Screen Barbiturate Screen Phencyclidine Screen Ur Amphetamines Screen MDMA (Ecstasy) Screen Benzodiazepines Screen Cocaine Screen U Marijuana (THC) Screen Blood Type Antibody Screen Crossmatch Spec Expiration Date 06/17/16 06/17/16 06/18/16 15:49 22:33 06:07 WBC RBC Hgb Hct MCV MCHC RDW Plt Count MPV Neutrophils % Lymphocytes % Monocytes % Eosinophils % Basophils % Band Neutrophils Metamyelocytes Myelocytes Nucleated RBCs Differential Comment Hypersegmented Neuts Toxic Granulation Dohle Bodies [place] Platelet Estimate Platelet Comment RBC Morphology Polychromasia Hypochromic-Microcytic Poikilocytosis Basophilic Stippling Anisocytosis Microcytosis Macrocytosis Spherocytes Siderocytes Sickle Cells Target Cells Tear Drop Cells Ovalocytes Stomatocytes Helmet Cells [place] Bodies [place] Rings Luis E Cells Acanthocytes (Spur) Rouleaux Fragmented RBCs Schistocytes Morphology Comment INR PTT (Actin FS) D-Dimer Puncture Site ABG pH ABG pCO2 at Pt Temp ABG pO2 at Pt Temp ABG HCO3 ABG O2 Sat (Measured) ABG O2 Content ABG Base Excess Rafi Test VBG pH POC VBG pCO2 POC VBG pO2 Mixed VBG HCO3 O2 Delivery Device Oxygen Flow Rate Vent Mode Vent Rate Mechanical Rate PEEP Pressure Support Vent Sodium Potassium Chloride Carbon Dioxide Anion Gap BUN Creatinine Creat Clearance w eGFR POC Glucometer 313 216 172 Random Glucose Lactic Acid Calcium Phosphorus Magnesium Total Bilirubin AST ALT Alkaline Phosphatase Creatine Kinase CK-MB (CK-2) Troponin I B-Natriuretic Peptide Total Protein Albumin TSH Free T3 Urine Color Urine Appearance Urine pH Ur Specific [place] Urine Protein Urine Glucose (UA) Urine Ketones Urine Blood Urine Nitrite Urine Bilirubin Urine Urobilinogen Ur Leukocyte Esterase Urine RBC Urine WBC Ur Epithelial Cells Urine Bacteria Hyaline Casts Urine Mucus Urine Yeast Stool Occult Blood Random Vancomycin Opiates Screen Methadone Screen Barbiturate Screen Phencyclidine Screen Ur Amphetamines Screen MDMA (Ecstasy) Screen Benzodiazepines Screen Cocaine Screen U Marijuana (THC) Screen Blood Type Antibody Screen Crossmatch Spec Expiration Date 06/18/16 06/18/16 06/19/16 11:58 17:13 05:35 WBC RBC Hgb Hct MCV MCHC RDW Plt Count MPV Neutrophils % Lymphocytes % Monocytes % Eosinophils % Basophils % Band Neutrophils Metamyelocytes Myelocytes Nucleated RBCs Differential Comment Hypersegmented Neuts Toxic Granulation Dohle Bodies [place] Platelet Estimate Platelet Comment RBC Morphology Polychromasia Hypochromic-Microcytic Poikilocytosis Basophilic Stippling Anisocytosis Microcytosis Macrocytosis Spherocytes Siderocytes Sickle Cells Target Cells Tear Drop Cells Ovalocytes Stomatocytes Helmet Cells [place] Bodies [place] Cells Acanthocytes (Spur) Rouleaux Fragmented RBCs Schistocytes Morphology Comment INR PTT (Actin FS) D-Dimer Puncture Site ABG pH ABG pCO2 at Pt Temp ABG pO2 at Pt Temp ABG HCO3 ABG O2 Sat (Measured) ABG O2 Content ABG Base Excess Rafi Test VBG pH POC VBG pCO2 POC VBG pO2 Mixed VBG HCO3 O2 Delivery Device Oxygen Flow Rate Vent Mode Vent Rate Mechanical Rate PEEP Pressure Support Vent Sodium 143 Potassium 4.8 Chloride 101 Carbon Dioxide 35 H Anion Gap 7 L BUN 23 H Creatinine 0.4 L Creat Clearance w eGFR POC Glucometer 217 233 Random Glucose 143 H Lactic Acid Calcium 9.3 Phosphorus Magnesium 2.0 Total Bilirubin AST ALT Alkaline Phosphatase Creatine Kinase CK-MB (CK-2) Troponin I B-Natriuretic Peptide Total Protein Albumin TSH 0.36 D Free T3 Urine Color Urine Appearance Urine pH Ur Specific [place] Urine Protein Urine Glucose (UA) Urine Ketones Urine Blood Urine Nitrite Urine Bilirubin Urine Urobilinogen Ur Leukocyte Esterase Urine RBC Urine WBC Ur Epithelial Cells Urine Bacteria Hyaline Casts Urine Mucus Urine Yeast Stool Occult Blood Random Vancomycin Opiates Screen Methadone Screen Barbiturate Screen Phencyclidine Screen Ur Amphetamines Screen MDMA (Ecstasy) Screen Benzodiazepines Screen Cocaine Screen U Marijuana (THC) Screen Blood Type Antibody Screen Crossmatch Spec Expiration Date 06/19/16 06/19/16 06/19/16 05:39 11:45 11:45 WBC RBC Hgb Hct MCV MCHC RDW Plt Count MPV Neutrophils % Lymphocytes % Monocytes % Eosinophils % Basophils % Band Neutrophils Metamyelocytes Myelocytes Nucleated RBCs Differential Comment Hypersegmented Neuts Toxic Granulation Dohle Bodies [place] Platelet Estimate Platelet Comment RBC Morphology Polychromasia Hypochromic-Microcytic Poikilocytosis Basophilic Stippling Anisocytosis Microcytosis Macrocytosis Spherocytes Siderocytes Sickle Cells Target Cells Tear Drop Cells Ovalocytes Stomatocytes Helmet Cells [place] Bodies [place] Rings Luis E Cells Acanthocytes (Spur) Rouleaux Fragmented RBCs Schistocytes Morphology Comment INR PTT (Actin FS) D-Dimer Puncture Site ABG pH ABG pCO2 at Pt Temp ABG pO2 at Pt Temp ABG HCO3 ABG O2 Sat (Measured) ABG O2 Content ABG Base Excess Rafi Test VBG pH POC VBG pCO2 POC VBG pO2 Mixed VBG HCO3 O2 Delivery Device Oxygen Flow Rate Vent Mode Vent Rate Mechanical Rate PEEP Pressure Support Vent Sodium Potassium Chloride Carbon Dioxide Anion Gap BUN Creatinine Creat Clearance w eGFR POC Glucometer 149 Random Glucose Lactic Acid Calcium Phosphorus Magnesium Total Bilirubin AST ALT Alkaline Phosphatase Creatine Kinase CK-MB (CK-2) Troponin I B-Natriuretic Peptide Total Protein Albumin TSH Cancelled Free T3 1.7 L Urine Color Urine Appearance Urine pH Ur Specific [place] Urine Protein Urine Glucose (UA) Urine Ketones Urine Blood Urine Nitrite Urine Bilirubin Urine Urobilinogen Ur Leukocyte Esterase Urine RBC Urine WBC Ur Epithelial Cells Urine Bacteria Hyaline Casts Urine Mucus Urine Yeast Stool Occult Blood Random Vancomycin Opiates Screen Methadone Screen Barbiturate Screen Phencyclidine Screen Ur Amphetamines Screen MDMA (Ecstasy) Screen Benzodiazepines Screen Cocaine Screen U Marijuana (THC) Screen Blood Type Antibody Screen Crossmatch Spec Expiration Date 06/19/16 06/20/16 06/20/16 11:54 05:56 09:40 WBC RBC Hgb Hct MCV MCHC RDW Plt Count MPV Neutrophils % Lymphocytes % Monocytes % Eosinophils % Basophils % Band Neutrophils Metamyelocytes Myelocytes Nucleated RBCs Differential Comment Hypersegmented Neuts Toxic Granulation Dohle Bodies [place] Platelet Estimate Platelet Comment RBC Morphology Polychromasia Hypochromic-Microcytic Poikilocytosis Basophilic Stippling Anisocytosis Microcytosis Macrocytosis Spherocytes Siderocytes Sickle Cells Target Cells Tear Drop Cells Ovalocytes Stomatocytes Helmet Cells [place] Bodies [place] Rings Luis E Cells Acanthocytes (Sp[place]) Rouleaux Fragmented RBCs Schistocytes Morphology Comment INR PTT (Actin FS) D-Dimer Puncture Site ABG pH ABG pCO2 at Pt Temp ABG pO2 at Pt Temp ABG HCO3 ABG O2 Sat (Measured) ABG O2 Content ABG Base Excess Rafi Test VBG pH POC VBG pCO2 POC VBG pO2 Mixed VBG HCO3 O2 Delivery Device Oxygen Flow Rate Vent Mode Vent Rate Mechanical Rate PEEP Pressure Support Vent Sodium Potassium Chloride Carbon Dioxide Anion Gap BUN Creatinine Creat Clearance w eGFR POC Glucometer 223 218 Random Glucose Lactic Acid Calcium Phosphorus Magnesium Total Bilirubin AST ALT Alkaline Phosphatase Creatine Kinase 109 CK-MB (CK-2) Troponin I 0.09 H B-Natriuretic Peptide Total Protein Albumin TSH Free T3 Urine Color Urine Appearance Urine pH Ur Specific [place] Urine Protein Urine Glucose (UA) Urine Ketones Urine Blood Urine Nitrite Urine Bilirubin Urine Urobilinogen Ur Leukocyte Esterase Urine RBC Urine WBC Ur Epithelial Cells Urine Bacteria Hyaline Casts Urine Mucus Urine Yeast Stool Occult Blood Random Vancomycin Opiates Screen Methadone Screen Barbiturate Screen Phencyclidine Screen Ur Amphetamines Screen MDMA (Ecstasy) Screen Benzodiazepines Screen Cocaine Screen U Marijuana (THC) Screen Blood Type Antibody Screen Crossmatch Spec Expiration Date 06/20/16 06/20/16 06/21/16 11:13 17:03 06:25 WBC RBC Hgb Hct MCV MCHC RDW Plt Count MPV Neutrophils % Lymphocytes % Monocytes % Eosinophils % Basophils % Band Neutrophils Metamyelocytes Myelocytes Nucleated RBCs Differential Comment Hypersegmented Neuts Toxic Granulation Dohle Bodies [place]s Platelet Estimate Platelet Comment RBC Morphology Polychromasia Hypochromic-Microcytic Poikilocytosis Basophilic Stippling Anisocytosis Microcytosis Macrocytosis Spherocytes Siderocytes Sickle Cells Target Cells Tear Drop Cells Ovalocytes Stomatocytes Helmet Cells [place] Bodies [place] Luis E Cells Acanthocytes (Spur) Rouleaux Fragmented RBCs Schistocytes Morphology Comment INR PTT (Actin FS) D-Dimer Puncture Site ABG pH ABG pCO2 at Pt Temp ABG pO2 at Pt Temp ABG HCO3 ABG O2 Sat (Measured) ABG O2 Content ABG Base Excess Arfi Test VBG pH POC VBG pCO2 POC VBG pO2 Mixed VBG HCO3 O2 Delivery Device Oxygen Flow Rate Vent Mode Vent Rate Mechanical Rate PEEP Pressure Support Vent Sodium Potassium Chloride Carbon Dioxide Anion Gap BUN Creatinine Creat Clearance w eGFR POC Glucometer 225 164 165 Random Glucose Lactic Acid Calcium Phosphorus Magnesium Total Bilirubin AST ALT Alkaline Phosphatase Creatine Kinase CK-MB (CK-2) Troponin I B-Natriuretic Peptide Total Protein Albumin TSH Free T3 Urine Color Urine Appearance Urine pH Ur Specific [place] Urine Protein Urine Glucose (UA) Urine Ketones Urine Blood Urine Nitrite Urine Bilirubin Urine Urobilinogen Ur Leukocyte Esterase Urine RBC Urine WBC Ur Epithelial Cells Urine Bacteria Hyaline Casts Urine Mucus Urine Yeast Stool Occult Blood Random Vancomycin Opiates Screen Methadone Screen Barbiturate Screen Phencyclidine Screen Ur Amphetamines Screen MDMA (Ecstasy) Screen Benzodiazepines Screen Cocaine Screen U Marijuana (THC) Screen Blood Type Antibody Screen Crossmatch Spec Expiration Date 06/21/16 06/21/16 06/22/16 11:41 15:40 06:04 WBC RBC Hgb Hct MCV MCHC RDW Plt Count MPV Neutrophils % Lymphocytes % Monocytes % Eosinophils % Basophils % Band Neutrophils Metamyelocytes Myelocytes Nucleated RBCs Differential Comment Hypersegmented Neuts Toxic Granulation Dohle Bodies [place] Platelet Estimate Platelet Comment RBC Morphology Polychromasia Hypochromic-Microcytic Poikilocytosis Basophilic Stippling Anisocytosis Microcytosis Macrocytosis Spherocytes Siderocytes Sickle Cells Target Cells Tear Drop Cells Ovalocytes Stomatocytes Helmet Cells [place] Bodies [place] Luis E Cells Acanthocytes (Spur) Rouleaux Fragmented RBCs Schistocytes Morphology Comment INR PTT (Actin FS) D-Dimer Puncture Site ABG pH ABG pCO2 at Pt Temp ABG pO2 at Pt Temp ABG HCO3 ABG O2 Sat (Measured) ABG O2 Content ABG Base Excess Rafi Test VBG pH POC VBG pCO2 POC VBG pO2 Mixed VBG HCO3 O2 Delivery Device Oxygen Flow Rate Vent Mode Vent Rate Mechanical Rate PEEP Pressure Support Vent Sodium Potassium Chloride Carbon Dioxide Anion Gap BUN Creatinine Creat Clearance w eGFR POC Glucometer 172 255 215 Random Glucose Lactic Acid Calcium Phosphorus Magnesium Total Bilirubin AST ALT Alkaline Phosphatase Creatine Kinase CK-MB (CK-2) Troponin I B-Natriuretic Peptide Total Protein Albumin TSH Free T3 Urine Color Urine Appearance Urine pH Ur Specific [place] Urine Protein Urine Glucose (UA) Urine Ketones Urine Blood Urine Nitrite Urine Bilirubin Urine Urobilinogen Ur Leukocyte Esterase Urine RBC Urine WBC Ur Epithelial Cells Urine Bacteria Hyaline Casts Urine Mucus Urine Yeast Stool Occult Blood Random Vancomycin Opiates Screen Methadone Screen Barbiturate Screen Phencyclidine Screen Ur Amphetamines Screen MDMA (Ecstasy) Screen Benzodiazepines Screen Cocaine Screen U Marijuana (THC) Screen Blood Type Antibody Screen Crossmatch Spec Expiration Date 06/22/16 06/22/16 06/22/16 06:16 08:30 08:50 WBC 10.6 H RBC 3.92 Hgb 9.1 L D Hct 30.2 L MCV 77.2 L MCHC 30.0 L RDW 28.1 H Plt Count 162 D MPV 8.9 Neutrophils % 75.0 D Lymphocytes % 6.0 L D Monocytes % 2.0 L Eosinophils % Basophils % Band Neutrophils 10.0 D Metamyelocytes 6 H Myelocytes 1 Nucleated RBCs Differential Comment Manual diff done Hypersegmented Neuts Toxic Granulation Dohle Bodies [place] Platelet Estimate Adequate Platelet Comment RBC Morphology Polychromasia Hypochromic-Microcytic 3+ Poikilocytosis Basophilic Stippling 1+ Anisocytosis 2+ Microcytosis 1+ Macrocytosis 1+ Spherocytes Siderocytes Sickle Cells Target Cells 2+ Tear Drop Cells 1+ Ovalocytes 1+ Stomatocytes Helmet Cells [place] Bodies [place] Cells Acanthocytes (Spur) Rouleaux Fragmented RBCs Schistocytes Morphology Comment Slide scanned INR PTT (Actin FS) D-Dimer Puncture Site Right brachial ABG pH 7.42 ABG pCO2 at Pt Temp 49.5 H ABG pO2 at Pt Temp 78.3 ABG HCO3 31.8 H ABG O2 Sat (Measured) 95.9 ABG O2 Content 11.8 L ABG Base Excess 7.0 H Rafi Test Positive VBG pH POC VBG pCO2 POC VBG pO2 Mixed VBG HCO3 O2 Delivery Device Bipap Oxygen Flow Rate [address] Vent Rate 16 Mechanical Rate PEEP Pressure Support Vent 12/5 Sodium Potassium Chloride Carbon Dioxide Anion Gap BUN Creatinine Creat Clearance w eGFR POC Glucometer 256 Random Glucose Lactic Acid Calcium Phosphorus Magnesium Total Bilirubin AST ALT Alkaline Phosphatase Creatine Kinase CK-MB (CK-2) Troponin I B-Natriuretic Peptide Total Protein Albumin TSH Free T3 Urine Color Urine Appearance Urine pH Ur Specific [place] Urine Protein Urine Glucose (UA) Urine Ketones Urine Blood Urine Nitrite Urine Bilirubin Urine Urobilinogen Ur Leukocyte Esterase Urine RBC Urine WBC Ur Epithelial Cells Urine Bacteria Hyaline Casts Urine Mucus Urine Yeast Stool Occult Blood Random Vancomycin Opiates Screen Methadone Screen Barbiturate Screen Phencyclidine Screen Ur Amphetamines Screen MDMA (Ecstasy) Screen Benzodiazepines Screen Cocaine Screen U Marijuana (THC) Screen Blood Type Antibody Screen Crossmatch Spec Expiration Date 06/22/16 06/22/16 06/22/16 08:50 11:53 15:10 WBC RBC Hgb Hct MCV MCHC RDW Plt Count MPV Neutrophils % Lymphocytes % Monocytes % Eosinophils % Basophils % Band Neutrophils Metamyelocytes Myelocytes Nucleated RBCs Differential Comment Hypersegmented Neuts Toxic Granulation Dohle Bodies [place] Platelet Estimate Platelet Comment RBC Morphology Polychromasia Hypochromic-Microcytic Poikilocytosis Basophilic Stippling Anisocytosis Microcytosis Macrocytosis Spherocytes Siderocytes Sickle Cells Target Cells Tear Drop Cells Ovalocytes Stomatocytes Helmet Cells [place] Bodies [place] Cells Acanthocytes (Spur) Rouleaux Fragmented RBCs Schistocytes Morphology Comment INR PTT (Actin FS) D-Dimer Puncture Site Right radial ABG pH 7.32 L ABG pCO2 at Pt Temp 63.6 H* D ABG pO2 at Pt Temp 90.5 ABG HCO3 31.8 H ABG O2 Sat (Measured) 96.2 ABG O2 Content 12.0 L ABG Base Excess 5.2 H Rafi Test Positive VBG pH POC VBG pCO2 POC VBG pO2 Mixed VBG HCO3 O2 Delivery Device Bipap 12/8 Oxygen Flow Rate 100% Vent Mode Vent Rate 16 Mechanical Rate PEEP Pressure Support Vent Sodium 144 Potassium 4.4 Chloride 101 Carbon Dioxide 36 H Anion Gap 7 L BUN 26 H Creatinine 0.6 D Creat Clearance w eGFR > 60 POC Glucometer 217 Random Glucose 229 H D Lactic Acid Calcium 9.5 Phosphorus Magnesium 2.3 Total Bilirubin 0.4 D AST 48 H D ALT 29 D Alkaline Phosphatase 67 D Creatine Kinase CK-MB (CK-2) Troponin I B-Natriuretic Peptide Total Protein 6.1 L Albumin 2.3 L TSH Free T3 Urine Color Urine Appearance Urine pH Ur Specific [place] Urine Protein Urine Glucose (UA) Urine Ketones Urine Blood Urine Nitrite Urine Bilirubin Urine Urobilinogen Ur Leukocyte Esterase Urine RBC Urine WBC Ur Epithelial Cells Urine Bacteria Hyaline Casts Urine Mucus Urine Yeast Stool Occult Blood Random Vancomycin Opiates Screen Methadone Screen Barbiturate Screen Phencyclidine Screen Ur Amphetamines Screen MDMA (Ecstasy) Screen Benzodiazepines Screen Cocaine Screen U Marijuana (THC) Screen Blood Type Antibody Screen Crossmatch Spec Expiration Date 06/22/16 06/22/16 06/23/16 16:00 18:26 00:37 WBC RBC Hgb Hct MCV MCHC RDW Plt Count MPV Neutrophils % Lymphocytes % Monocytes % Eosinophils % Basophils % Band Neutrophils Metamyelocytes Myelocytes Nucleated RBCs Differential Comment Hypersegmented Neuts Toxic Granulation Dohle Bodies [place] Platelet Estimate Platelet Comment RBC Morphology Polychromasia Hypochromic-Microcytic Poikilocytosis Basophilic Stippling Anisocytosis Microcytosis Macrocytosis Spherocytes Siderocytes Sickle Cells Target Cells Tear Drop Cells Ovalocytes Stomatocytes Helmet Cells [place] Bodies [place] Luis E Cells Acanthocytes (Spur) Rouleaux Fragmented RBCs Schistocytes Morphology Comment INR PTT (Actin FS) D-Dimer Puncture Site ABG pH ABG pCO2 at Pt Temp ABG pO2 at Pt Temp ABG HCO3 ABG O2 Sat (Measured) ABG O2 Content ABG Base Excess Rafi Test VBG pH POC VBG pCO2 POC VBG pO2 Mixed VBG HCO3 O2 Delivery Device Oxygen Flow Rate Vent Mode Vent Rate Mechanical Rate PEEP Pressure Support Vent Sodium Potassium Chloride Carbon Dioxide Anion Gap BUN Creatinine Creat Clearance w eGFR POC Glucometer [phone] Random Glucose Lactic Acid 3.574 H* Calcium Phosphorus Magnesium Total Bilirubin AST ALT Alkaline Phosphatase Creatine Kinase CK-MB (CK-2) Troponin I B-Natriuretic Peptide Total Protein Albumin TSH Free T3 Urine Color [place] Urine Appearance Cloudy Urine pH 5.0 Ur Specific [place] 1.031 Urine Protein 2+ H Urine Glucose (UA) Negative Urine Ketones Negative Urine Blood 3+ H Urine Nitrite Negative Urine Bilirubin Negative Urine Urobilinogen Negative Ur Leukocyte Esterase 3+ H Urine RBC 315 Urine WBC 457 Ur Epithelial Cells Rare Urine Bacteria Many Hyaline Casts Urine Mucus Rare Urine Yeast Many Stool Occult Blood Random Vancomycin Opiates Screen Methadone Screen Barbiturate Screen Phencyclidine Screen Ur Amphetamines Screen MDMA (Ecstasy) Screen Benzodiazepines Screen Cocaine Screen U Marijuana (THC) Screen Blood Type Antibody Screen Crossmatch Spec Expiration Date 06/23/16 06/23/16 06/23/16 00:40 03:10 05:15 WBC RBC Hgb Hct MCV MCHC RDW Plt Count MPV Neutrophils % Lymphocytes % Monocytes % Eosinophils % Basophils % Band Neutrophils Metamyelocytes Myelocytes Nucleated RBCs Differential Comment Hypersegmented Neuts Toxic Granulation Dohle Bodies [place] Platelet Estimate Platelet Comment RBC Morphology Polychromasia Hypochromic-Microcytic Poikilocytosis Basophilic Stippling Anisocytosis Microcytosis Macrocytosis Spherocytes Siderocytes Sickle Cells Target Cells Tear Drop Cells Ovalocytes Stomatocytes Helmet Cells [place] Bodies [place] Luis E Cells Acanthocytes (Spur) Rouleaux Fragmented RBCs Schistocytes Morphology Comment INR PTT (Actin FS) D-Dimer Puncture Site Md puncture Right radial ABG pH 7.45 7.47 H ABG pCO2 at Pt Temp 44.3 D 44.2 ABG pO2 at Pt Temp 65.7 L D 110.0 H D ABG HCO3 30.3 H 31.4 H ABG O2 Sat (Measured) 93.4 98.9 ABG O2 Content 12.3 L 10.2 L ABG Base Excess 6.1 H 7.3 H Rafi Test Not applicable Positive VBG pH POC VBG pCO2 POC VBG pO2 Mixed VBG HCO3 O2 Delivery Device Bipap Mech vent Oxygen Flow Rate 40 50% Vent Mode St A/c Vent Rate 14 20 Mechanical Rate Yes PEEP 0.0 8.0 Pressure Support Vent 15/8 360 Sodium 145 Potassium 4.4 Chloride 105 Carbon Dioxide 31 Anion Gap 9 BUN 33 H D Creatinine 0.6 Creat Clearance w eGFR > 60 POC Glucometer Random Glucose 217 H Lactic Acid Calcium 8.2 L Phosphorus 2.5 Magnesium 2.2 Total Bilirubin 0.4 AST 47 H ALT 23 D Alkaline Phosphatase 58 Creatine Kinase CK-MB (CK-2) Troponin I B-Natriuretic Peptide Total Protein 4.3 L D Albumin 1.5 L D TSH Free T3 Urine Color Urine Appearance Urine pH Ur Specific [place] Urine Protein Urine Glucose (UA) Urine Ketones Urine Blood Urine Nitrite Urine Bilirubin Urine Urobilinogen Ur Leukocyte Esterase Urine RBC Urine WBC Ur Epithelial Cells Urine Bacteria Hyaline Casts Urine Mucus Urine Yeast Stool Occult Blood Random Vancomycin Opiates Screen Methadone Screen Barbiturate Screen Phencyclidine Screen Ur Amphetamines Screen MDMA (Ecstasy) Screen Benzodiazepines Screen Cocaine Screen U Marijuana (THC) Screen Blood Type Antibody Screen Crossmatch Spec Expiration Date 06/23/16 06/23/16 06/23/16 05:15 06:11 06:15 WBC 5.5 D RBC 3.19 L Hgb 7.6 L D Hct 24.6 L D MCV 77.3 L MCHC 30.7 L RDW 28.8 H Plt Count 95 L D MPV 8.9 Neutrophils % Y Lymphocytes % Y Monocytes % Eosinophils % Basophils % Band Neutrophils Metamyelocytes Myelocytes Nucleated RBCs Differential Comment Hypersegmented Neuts Toxic Granulation Dohle Bodies [place] Platelet Estimate Platelet Comment RBC Morphology Polychromasia Hypochromic-Microcytic Poikilocytosis Basophilic Stippling Anisocytosis Microcytosis Macrocytosis Spherocytes Siderocytes Sickle Cells Target Cells Tear Drop Cells Ovalocytes Stomatocytes Helmet Cells [place] Bodies [place] Cells Acanthocytes (Spur) Rouleaux Fragmented RBCs Schistocytes Morphology Comment INR PTT (Actin FS) D-Dimer Puncture Site ABG pH ABG pCO2 at Pt Temp ABG pO2 at Pt Temp ABG HCO3 ABG O2 Sat (Measured) ABG O2 Content ABG Base Excess Rafi Test VBG pH POC VBG pCO2 POC VBG pO2 Mixed VBG HCO3 O2 Delivery Device Oxygen Flow Rate Vent Mode Vent Rate Mechanical Rate PEEP Pressure Support Vent Sodium Potassium Chloride Carbon Dioxide Anion Gap BUN Creatinine Creat Clearance w eGFR POC Glucometer [phone] Random Glucose Lactic Acid 3.279 H* Calcium Phosphorus Magnesium Total Bilirubin AST ALT Alkaline Phosphatase Creatine Kinase CK-MB (CK-2) Troponin I B-Natriuretic Peptide Total Protein Albumin TSH Free T3 Urine Color Urine Appearance Urine pH Ur Specific [place] Urine Protein Urine Glucose (UA) Urine Ketones Urine Blood Urine Nitrite Urine Bilirubin Urine Urobilinogen Ur Leukocyte Esterase Urine RBC Urine WBC Ur Epithelial Cells Urine Bacteria Hyaline Casts Urine Mucus Urine Yeast Stool Occult Blood Random Vancomycin Opiates Screen Methadone Screen Barbiturate Screen Phencyclidine Screen Ur Amphetamines Screen MDMA (Ecstasy) Screen Benzodiazepines Screen Cocaine Screen U Marijuana (THC) Screen Blood Type Antibody Screen Crossmatch Spec Expiration Date 06/23/16 06/23/16 06/23/16 06:15 11:50 17:04 WBC RBC Hgb Hct MCV MCHC RDW Plt Count MPV Neutrophils % Lymphocytes % Monocytes % Eosinophils % Basophils % Band Neutrophils Metamyelocytes Myelocytes Nucleated RBCs Differential Comment Hypersegmented Neuts Toxic Granulation Dohle Bodies [place] Platelet Estimate Platelet Comment RBC Morphology Polychromasia Hypochromic-Microcytic Poikilocytosis Basophilic Stippling Anisocytosis Microcytosis Macrocytosis Spherocytes Siderocytes Sickle Cells Target Cells Tear Drop Cells Ovalocytes Stomatocytes Helmet Cells [place] Bodies [place] Luis E Cells Acanthocytes (Spur) Rouleaux Fragmented RBCs Schistocytes Morphology Comment INR PTT (Actin FS) D-Dimer Puncture Site ABG pH ABG pCO2 at Pt Temp ABG pO2 at Pt Temp ABG HCO3 ABG O2 Sat (Measured) ABG O2 Content ABG Base Excess Rafi Test VBG pH POC VBG pCO2 POC VBG pO2 Mixed VBG HCO3 O2 Delivery Device Oxygen Flow Rate Vent Mode Vent Rate Mechanical Rate PEEP Pressure Support Vent Sodium Potassium Chloride Carbon Dioxide Anion Gap BUN Creatinine Creat Clearance w eGFR POC Glucometer 230.24704 241.30040 Random Glucose Lactic Acid Calcium Phosphorus Magnesium Total Bilirubin AST ALT Alkaline Phosphatase Creatine Kinase 225 H D CK-MB (CK-2) 1.932 Troponin I 0.99 H* B-Natriuretic Peptide Total Protein Albumin TSH Free T3 Urine Color Urine Appearance Urine pH Ur Specific [place] Urine Protein Urine Glucose (UA) Urine Ketones Urine Blood Urine Nitrite Urine Bilirubin Urine Urobilinogen Ur Leukocyte Esterase Urine RBC Urine WBC Ur Epithelial Cells Urine Bacteria Hyaline Casts Urine Mucus Urine Yeast Stool Occult Blood Random Vancomycin Opiates Screen Methadone Screen Barbiturate Screen Phencyclidine Screen Ur Amphetamines Screen MDMA (Ecstasy) Screen Benzodiazepines Screen Cocaine Screen U Marijuana (THC) Screen Blood Type Antibody Screen Crossmatch Spec Expiration Date 06/24/16 06/24/16 06/24/16 05:15 05:15 06:23 WBC 9.1 D RBC 3.00 L Hgb 7.3 L Hct 22.6 L MCV 75.5 L MCHC 32.2 RDW 28.0 H Plt Count 100 L MPV 9.2 Neutrophils % 91.0 H D Lymphocytes % 4.8 L Monocytes % 4.0 D Eosinophils % 0.0 Basophils % 0.2 Band Neutrophils Metamyelocytes Myelocytes Nucleated RBCs Differential Comment Hypersegmented Neuts Toxic Granulation Dohle Bodies [place] Platelet Estimate Platelet Comment RBC Morphology Polychromasia Hypochromic-Microcytic Poikilocytosis Basophilic Stippling Anisocytosis Microcytosis Macrocytosis Spherocytes Siderocytes Sickle Cells Target Cells Tear Drop Cells Ovalocytes Stomatocytes Helmet Cells [place] Bodies [place] Cells Acanthocytes (Spur) Rouleaux Fragmented RBCs Schistocytes Morphology Comment INR PTT (Actin FS) D-Dimer Puncture Site ABG pH ABG pCO2 at Pt Temp ABG pO2 at Pt Temp ABG HCO3 ABG O2 Sat (Measured) ABG O2 Content ABG Base Excess Rafi Test VBG pH POC VBG pCO2 POC VBG pO2 Mixed VBG HCO3 O2 Delivery Device Oxygen Flow Rate Vent Mode Vent Rate Mechanical Rate PEEP Pressure Support Vent Sodium 143 Potassium 3.9 Chloride 107 Carbon Dioxide 29 Anion Gap 7 L BUN 37 H Creatinine 0.7 Creat Clearance w eGFR POC Glucometer [phone] Random Glucose 272 H D Lactic Acid Calcium 8.1 L Phosphorus Magnesium Total Bilirubin AST ALT Alkaline Phosphatase Creatine Kinase CK-MB (CK-2) Troponin I B-Natriuretic Peptide Total Protein Albumin TSH Free T3 Urine Color Urine Appearance Urine pH Ur Specific [place] Urine Protein Urine Glucose (UA) Urine Ketones Urine Blood Urine Nitrite Urine Bilirubin Urine Urobilinogen Ur Leukocyte Esterase Urine RBC Urine WBC Ur Epithelial Cells Urine Bacteria Hyaline Casts Urine Mucus Urine Yeast Stool Occult Blood Random Vancomycin Opiates Screen Methadone Screen Barbiturate Screen Phencyclidine Screen Ur Amphetamines Screen MDMA (Ecstasy) Screen Benzodiazepines Screen Cocaine Screen U Marijuana (THC) Screen Blood Type Antibody Screen Crossmatch Spec Expiration Date 06/24/16 06/24/16 06/24/16 09:30 09:30 10:15 WBC RBC Hgb Hct MCV MCHC RDW Plt Count MPV Neutrophils % Lymphocytes % Monocytes % Eosinophils % Basophils % Band Neutrophils Metamyelocytes Myelocytes Nucleated RBCs Differential Comment Hypersegmented Neuts Toxic Granulation Dohle Bodies [place] Platelet Estimate Platelet Comment RBC Morphology Polychromasia Hypochromic-Microcytic Poikilocytosis Basophilic Stippling Anisocytosis Microcytosis Macrocytosis Spherocytes Siderocytes Sickle Cells Target Cells Tear Drop Cells Ovalocytes Stomatocytes Helmet Cells [place] Bodies [place] E Cells Acanthocytes (Spur) Rouleaux Fragmented RBCs Schistocytes Morphology Comment INR PTT (Actin FS) D-Dimer Puncture Site ABG pH ABG pCO2 at Pt Temp ABG pO2 at Pt Temp ABG HCO3 ABG O2 Sat (Measured) ABG O2 Content ABG Base Excess Rafi Test VBG pH POC VBG pCO2 POC VBG pO2 Mixed VBG HCO3 O2 Delivery Device Oxygen Flow Rate Vent Mode Vent Rate Mechanical Rate PEEP Pressure Support Vent Sodium Potassium Chloride Carbon Dioxide Anion Gap BUN Creatinine Creat Clearance w eGFR POC Glucometer [phone] Random Glucose Lactic Acid 2.488 H* Calcium Phosphorus Magnesium Total Bilirubin AST ALT Alkaline Phosphatase Creatine Kinase 159 D CK-MB (CK-2) 1.756 Troponin I 1.61 H* B-Natriuretic Peptide Total Protein Albumin TSH Free T3 Urine Color Urine Appearance Urine pH Ur Specific [place] Urine Protein Urine Glucose (UA) Urine Ketones Urine Blood Urine Nitrite Urine Bilirubin Urine Urobilinogen Ur Leukocyte Esterase Urine RBC Urine WBC Ur Epithelial Cells Urine Bacteria Hyaline Casts Urine Mucus Urine Yeast Stool Occult Blood Random Vancomycin Opiates Screen Methadone Screen Barbiturate Screen Phencyclidine Screen Ur Amphetamines Screen MDMA (Ecstasy) Screen Benzodiazepines Screen Cocaine Screen U Marijuana (THC) Screen Blood Type Antibody Screen Crossmatch Spec Expiration Date 06/24/16 06/24/16 06/24/16 12:30 12:30 15:25 WBC RBC Hgb Hct MCV MCHC RDW Plt Count MPV Neutrophils % Lymphocytes % Monocytes % Eosinophils % Basophils % Band Neutrophils Metamyelocytes Myelocytes Nucleated RBCs Differential Comment Hypersegmented Neuts Toxic Granulation Dohle Bodies [place] Platelet Estimate Platelet Comment RBC Morphology Polychromasia Hypochromic-Microcytic Poikilocytosis Basophilic Stippling Anisocytosis Microcytosis Macrocytosis Spherocytes Siderocytes Sickle Cells Target Cells Tear Drop Cells Ovalocytes Stomatocytes Helmet Cells [place] Bodies [place] Cells Acanthocytes (Spur) Rouleaux Fragmented RBCs Schistocytes Morphology Comment INR PTT (Actin FS) D-Dimer Puncture Site Right radial ABG pH 7.41 ABG pCO2 at Pt Temp 43.3 ABG pO2 at Pt Temp 63.8 L D ABG HCO3 27.0 H ABG O2 Sat (Measured) 91.1 ABG O2 Content 11.6 L ABG Base Excess 2.6 H Rafi Test Positive VBG pH POC VBG pCO2 POC VBG pO2 Mixed VBG HCO3 O2 Delivery Device Mech vent Oxygen Flow Rate 35% Vent Mode Ac Vent Rate 18 Mechanical Rate Y PEEP 8.0 Pressure Support Vent 350 Sodium Potassium Chloride Carbon Dioxide Anion Gap BUN Creatinine Creat Clearance w eGFR POC Glucometer Random Glucose Lactic Acid 2.971 H* Calcium Phosphorus Magnesium Total Bilirubin AST ALT Alkaline Phosphatase Creatine Kinase CK-MB (CK-2) Troponin I B-Natriuretic Peptide Total Protein Albumin TSH Free T3 Urine Color Urine Appearance Urine pH Ur Specific [place] Urine Protein Urine Glucose (UA) Urine Ketones Urine Blood Urine Nitrite Urine Bilirubin Urine Urobilinogen Ur Leukocyte Esterase Urine RBC Urine WBC Ur Epithelial Cells Urine Bacteria Hyaline Casts Urine Mucus Urine Yeast Stool Occult Blood Random Vancomycin Opiates Screen Methadone Screen Barbiturate Screen Phencyclidine Screen Ur Amphetamines Screen MDMA (Ecstasy) Screen Benzodiazepines Screen Cocaine Screen U Marijuana (THC) Screen Blood Type A POSITIVE Antibody Screen Negative Crossmatch See Detail Spec Expiration Date 06/24/16 06/24/16 06/24/16 16:45 17:09 17:30 WBC RBC Hgb Hct MCV MCHC RDW Plt Count MPV Neutrophils % Lymphocytes % Monocytes % Eosinophils % Basophils % Band Neutrophils Metamyelocytes Myelocytes Nucleated RBCs Differential Comment Hypersegmented Neuts Toxic Granulation Dohle Bodies [place] Platelet Estimate Platelet Comment RBC Morphology Polychromasia Hypochromic-Microcytic Poikilocytosis Basophilic Stippling Anisocytosis Microcytosis Macrocytosis Spherocytes Siderocytes Sickle Cells Target Cells Tear Drop Cells Ovalocytes Stomatocytes Helmet Cells [place] Bodies [place] Luis E Cells Acanthocytes (Spur) Rouleaux Fragmented RBCs Schistocytes Morphology Comment INR PTT (Actin FS) D-Dimer Puncture Site ABG pH ABG pCO2 at Pt Temp ABG pO2 at Pt Temp ABG HCO3 ABG O2 Sat (Measured) ABG O2 Content ABG Base Excess Rafi Test VBG pH POC VBG pCO2 POC VBG pO2 Mixed VBG HCO3 O2 Delivery Device Oxygen Flow Rate Vent Mode Vent Rate Mechanical Rate PEEP Pressure Support Vent Sodium Potassium Chloride Carbon Dioxide Anion Gap BUN Creatinine Creat Clearance w eGFR POC Glucometer [phone] Random Glucose Lactic Acid 2.707 H* Calcium Phosphorus Magnesium Total Bilirubin AST ALT Alkaline Phosphatase Creatine Kinase CK-MB (CK-2) Troponin I 1.15 H* B-Natriuretic Peptide Total Protein Albumin TSH Free T3 Urine Color Urine Appearance Urine pH Ur Specific [place] Urine Protein Urine Glucose (UA) Urine Ketones Urine Blood Urine Nitrite Urine Bilirubin Urine Urobilinogen Ur Leukocyte Esterase Urine RBC Urine WBC Ur Epithelial Cells Urine Bacteria Hyaline Casts Urine Mucus Urine Yeast Stool Occult Blood Random Vancomycin Opiates Screen Methadone Screen Barbiturate Screen Phencyclidine Screen Ur Amphetamines Screen MDMA (Ecstasy) Screen Benzodiazepines Screen Cocaine Screen U Marijuana (THC) Screen Blood Type Antibody Screen Crossmatch Spec Expiration Date 06/25/16 06/25/16 06/25/16 05:35 05:35 05:35 WBC 11.1 H RBC 3.42 L Hgb 8.6 L D Hct 26.4 L D MCV 77.2 L MCHC 32.5 RDW 27.9 H Plt Count 99 L MPV 9.4 Neutrophils % 95.8 H Lymphocytes % 1.0 L D Monocytes % 3.2 L Eosinophils % 0.0 Basophils % 0.0 Band Neutrophils Metamyelocytes Myelocytes Nucleated RBCs Differential Comment Hypersegmented Neuts Toxic Granulation Dohle Bodies Hazel Rods Platelet Estimate Platelet Comment RBC Morphology Polychromasia Hypochromic-Microcytic Poikilocytosis Basophilic Stippling Anisocytosis Microcytosis Macrocytosis Spherocytes Siderocytes Sickle Cells Target Cells Tear Drop Cells Ovalocytes Stomatocytes Helmet Cells [place] Bodies [place] Luis E Cells Acanthocytes (Spur) Rouleaux Fragmented RBCs Schistocytes Morphology Comment INR PTT (Actin FS) D-Dimer Puncture Site ABG pH ABG pCO2 at Pt Temp ABG pO2 at Pt Temp ABG HCO3 ABG O2 Sat (Measured) ABG O2 Content ABG Base Excess Rafi Test VBG pH POC VBG pCO2 POC VBG pO2 Mixed VBG HCO3 O2 Delivery Device Oxygen Flow Rate Vent Mode Vent Rate Mechanical Rate PEEP Pressure Support Vent Sodium 143 Potassium 4.0 Chloride 107 Carbon Dioxide 29 Anion Gap 7 L BUN 33 H Creatinine 0.7 Creat Clearance w eGFR POC Glucometer Random Glucose 408 H* D Lactic Acid 2.957 H* Calcium 7.7 L Phosphorus Magnesium Total Bilirubin AST ALT Alkaline Phosphatase Creatine Kinase CK-MB (CK-2) Troponin I 0.61 H* B-Natriuretic Peptide Total Protein Albumin TSH Free T3 Urine Color Urine Appearance Urine pH Ur Specific [place] Urine Protein Urine Glucose (UA) Urine Ketones Urine Blood Urine Nitrite Urine Bilirubin Urine Urobilinogen Ur Leukocyte Esterase Urine RBC Urine WBC Ur Epithelial Cells Urine Bacteria Hyaline Casts Urine Mucus Urine Yeast Stool Occult Blood Random Vancomycin Opiates Screen Methadone Screen Barbiturate Screen Phencyclidine Screen Ur Amphetamines Screen MDMA (Ecstasy) Screen Benzodiazepines Screen Cocaine Screen U Marijuana (THC) Screen Blood Type Antibody Screen Crossmatch Spec Expiration Date 06/25/16 06/25/16 06/25/16 05:59 07:39 12:13 WBC RBC Hgb Hct MCV MCHC RDW Plt Count MPV Neutrophils % Lymphocytes % Monocytes % Eosinophils % Basophils % Band Neutrophils Metamyelocytes Myelocytes Nucleated RBCs Differential Comment Hypersegmented Neuts Toxic Granulation Dohle Bodies [place]s Platelet Estimate Platelet Comment RBC Morphology Polychromasia Hypochromic-Microcytic Poikilocytosis Basophilic Stippling Anisocytosis Microcytosis Macrocytosis Spherocytes Siderocytes Sickle Cells Target Cells Tear Drop Cells Ovalocytes Stomatocytes Helmet Cells [place] Bodies [place] Cells Acanthocytes (Spur) Rouleaux Fragmented RBCs Schistocytes Morphology Comment INR PTT (Actin FS) D-Dimer Puncture Site Right radial ABG pH 7.39 ABG pCO2 at Pt Temp 44.4 ABG pO2 at Pt Temp 74.1 ABG HCO3 26.5 H ABG O2 Sat (Measured) 94.3 ABG O2 Content 11.9 L ABG Base Excess 1.8 Rafi Test Positive VBG pH POC VBG pCO2 POC VBG pO2 Mixed VBG HCO3 O2 Delivery Device Ventilator Oxygen Flow Rate 40% Vent Mode A/c Vent Rate 18 Mechanical Rate Yes PEEP 8.0 Pressure Support Vent 350 Sodium Potassium Chloride Carbon Dioxide Anion Gap BUN Creatinine Creat Clearance w eGFR POC Glucometer > [phone] Random Glucose Lactic Acid Calcium Phosphorus Magnesium Total Bilirubin AST ALT Alkaline Phosphatase Creatine Kinase CK-MB (CK-2) Troponin I B-Natriuretic Peptide Total Protein Albumin TSH Free T3 Urine Color Urine Appearance Urine pH Ur Specific [place] Urine Protein Urine Glucose (UA) Urine Ketones Urine Blood Urine Nitrite Urine Bilirubin Urine Urobilinogen Ur Leukocyte Esterase Urine RBC Urine WBC Ur Epithelial Cells Urine Bacteria Hyaline Casts Urine Mucus Urine Yeast Stool Occult Blood Random Vancomycin Opiates Screen Methadone Screen Barbiturate Screen Phencyclidine Screen Ur Amphetamines Screen MDMA (Ecstasy) Screen Benzodiazepines Screen Cocaine Screen U Marijuana (THC) Screen Blood Type Antibody Screen Crossmatch Spec Expiration Date 06/25/16 06/25/16 06/26/16 17:12 22:37 05:25 WBC 12.9 H RBC 3.37 L Hgb 8.2 L Hct 26.0 L MCV 77.3 L MCHC 31.6 L RDW 27.8 H Plt Count 93 L MPV 9.2 Neutrophils % 94.3 H Lymphocytes % 1.9 L D Monocytes % 3.6 L Eosinophils % 0.1 D Basophils % 0.1 D Band Neutrophils Metamyelocytes Myelocytes Nucleated RBCs Differential Comment Hypersegmented Neuts Toxic Granulation Dohle Bodies Hazel Rods Platelet Estimate Platelet Comment RBC Morphology Polychromasia Hypochromic-Microcytic Poikilocytosis Basophilic Stippling Anisocytosis Microcytosis Macrocytosis Spherocytes Siderocytes Sickle Cells Target Cells Tear Drop Cells Ovalocytes Stomatocytes Helmet Cells [place] Bodies [place] Cells Acanthocytes (Spur) Rouleaux Fragmented RBCs Schistocytes Morphology Comment INR PTT (Actin FS) D-Dimer Puncture Site ABG pH ABG pCO2 at Pt Temp ABG pO2 at Pt Temp ABG HCO3 ABG O2 Sat (Measured) ABG O2 Content ABG Base Excess Rafi Test VBG pH POC VBG pCO2 POC VBG pO2 Mixed VBG HCO3 O2 Delivery Device Oxygen Flow Rate Vent Mode Vent Rate Mechanical Rate PEEP Pressure Support Vent Sodium Potassium Chloride Carbon Dioxide Anion Gap BUN Creatinine Creat Clearance w eGFR POC Glucometer 373.92423 [phone] Random Glucose Lactic Acid Calcium Phosphorus Magnesium Total Bilirubin AST ALT Alkaline Phosphatase Creatine Kinase CK-MB (CK-2) Troponin I B-Natriuretic Peptide Total Protein Albumin TSH Free T3 Urine Color Urine Appearance Urine pH Ur Specific [place] Urine Protein Urine Glucose (UA) Urine Ketones Urine Blood Urine Nitrite Urine Bilirubin Urine Urobilinogen Ur Leukocyte Esterase Urine RBC Urine WBC Ur Epithelial Cells Urine Bacteria Hyaline Casts Urine Mucus Urine Yeast Stool Occult Blood Random Vancomycin Opiates Screen Methadone Screen Barbiturate Screen Phencyclidine Screen Ur Amphetamines Screen MDMA (Ecstasy) Screen Benzodiazepines Screen Cocaine Screen U Marijuana (THC) Screen Blood Type Antibody Screen Crossmatch Spec Expiration Date 06/26/16 06/26/16 06/26/16 05:25 05:55 07:35 WBC RBC Hgb Hct MCV MCHC RDW Plt Count MPV Neutrophils % Lymphocytes % Monocytes % Eosinophils % Basophils % Band Neutrophils Metamyelocytes Myelocytes Nucleated RBCs Differential Comment Hypersegmented Neuts Toxic Granulation Dohle Bodies [place] Rods Platelet Estimate Platelet Comment RBC Morphology Polychromasia Hypochromic-Microcytic Poikilocytosis Basophilic Stippling Anisocytosis Microcytosis Macrocytosis Spherocytes Siderocytes Sickle Cells Target Cells Tear Drop Cells Ovalocytes Stomatocytes Helmet Cells [place] Bodies [place] Cells Acanthocytes (Spur) Rouleaux Fragmented RBCs Schistocytes Morphology Comment INR PTT (Actin FS) D-Dimer Puncture Site Right radial ABG pH 7.40 ABG pCO2 at Pt Temp 46.0 H ABG pO2 at Pt Temp 83.1 ABG HCO3 28.2 H ABG O2 Sat (Measured) 96.8 ABG O2 Content 11.3 L ABG Base Excess 3.6 H Rafi Test Positive VBG pH POC VBG pCO2 POC VBG pO2 Mixed VBG HCO3 O2 Delivery Device Mec.vent Oxygen Flow Rate 40% Vent Mode A/c Vent Rate 18 Mechanical Rate Esprit PEEP 8.0 Pressure Support Vent 350 Sodium 145 Potassium 4.5 Chloride 107 Carbon Dioxide 32 Anion Gap 6 L BUN 29 H Creatinine 0.4 L D Creat Clearance w eGFR > 60 POC Glucometer [phone] Random Glucose 276 H D Lactic Acid Calcium 8.2 L Phosphorus 2.2 L Magnesium 2.5 H Total Bilirubin 0.2 D AST 63 H D ALT 37 D Alkaline Phosphatase 93 D Creatine Kinase CK-MB (CK-2) Troponin I B-Natriuretic Peptide Total Protein 4.5 L Albumin 1.3 L TSH Free T3 Urine Color Urine Appearance Urine pH Ur Specific [place] Urine Protein Urine Glucose (UA) Urine Ketones Urine Blood Urine Nitrite Urine Bilirubin Urine Urobilinogen Ur Leukocyte Esterase Urine RBC Urine WBC Ur Epithelial Cells Urine Bacteria Hyaline Casts Urine Mucus Urine Yeast Stool Occult Blood Random Vancomycin Opiates Screen Methadone Screen Barbiturate Screen Phencyclidine Screen Ur Amphetamines Screen MDMA (Ecstasy) Screen Benzodiazepines Screen Cocaine Screen U Marijuana (THC) Screen Blood Type Antibody Screen Crossmatch Spec Expiration Date 06/26/16 06/26/16 06/26/16 10:58 16:29 23:20 WBC RBC Hgb Hct MCV MCHC RDW Plt Count MPV Neutrophils % Lymphocytes % Monocytes % Eosinophils % Basophils % Band Neutrophils Metamyelocytes Myelocytes Nucleated RBCs Differential Comment Hypersegmented Neuts Toxic Granulation Dohle Bodies [place] Platelet Estimate Platelet Comment RBC Morphology Polychromasia Hypochromic-Microcytic Poikilocytosis Basophilic Stippling Anisocytosis Microcytosis Macrocytosis Spherocytes Siderocytes Sickle Cells Target Cells Tear Drop Cells Ovalocytes Stomatocytes Helmet Cells [place] Bodies [place] E Cells Acanthocytes (Spur) Rouleaux Fragmented RBCs Schistocytes Morphology Comment INR PTT (Actin FS) D-Dimer Puncture Site ABG pH ABG pCO2 at Pt Temp ABG pO2 at Pt Temp ABG HCO3 ABG O2 Sat (Measured) ABG O2 Content ABG Base Excess Rafi Test VBG pH POC VBG pCO2 POC VBG pO2 Mixed VBG HCO3 O2 Delivery Device Oxygen Flow Rate Vent Mode Vent Rate Mechanical Rate PEEP Pressure Support Vent Sodium Potassium Chloride Carbon Dioxide Anion Gap BUN Creatinine Creat Clearance w eGFR POC Glucometer 303.73212 312.87738 [phone] Random Glucose Lactic Acid Calcium Phosphorus Magnesium Total Bilirubin AST ALT Alkaline Phosphatase Creatine Kinase CK-MB (CK-2) Troponin I B-Natriuretic Peptide Total Protein Albumin TSH Free T3 Urine Color Urine Appearance Urine pH Ur Specific [place] Urine Protein Urine Glucose (UA) Urine Ketones Urine Blood Urine Nitrite Urine Bilirubin Urine Urobilinogen Ur Leukocyte Esterase Urine RBC Urine WBC Ur Epithelial Cells Urine Bacteria Hyaline Casts Urine Mucus Urine Yeast Stool Occult Blood Random Vancomycin Opiates Screen Methadone Screen Barbiturate Screen Phencyclidine Screen Ur Amphetamines Screen MDMA (Ecstasy) Screen Benzodiazepines Screen Cocaine Screen U Marijuana (THC) Screen Blood Type Antibody Screen Crossmatch Spec Expiration Date 06/27/16 06/27/16 06/27/16 05:15 05:15 05:40 WBC 16.4 H RBC 3.57 L Hgb 8.7 L Hct 27.6 L MCV 77.4 L MCHC 31.6 L RDW 28.1 H Plt Count 107 L MPV 9.2 Neutrophils % 97.0 H Lymphocytes % 3.0 L D Monocytes % Eosinophils % Basophils % Band Neutrophils Metamyelocytes Myelocytes Nucleated RBCs Differential Comment Manual diff done Hypersegmented Neuts Toxic Granulation Dohle Bodies [place] Platelet Estimate Decreased Platelet Comment RBC Morphology Polychromasia Hypochromic-Microcytic Poikilocytosis Basophilic Stippling Anisocytosis Microcytosis Macrocytosis Spherocytes Siderocytes Sickle Cells Target Cells Tear Drop Cells Ovalocytes Stomatocytes Helmet Cells [place] Bodies [place] Cells Acanthocytes (Spur) Rouleaux Fragmented RBCs Schistocytes Morphology Comment INR PTT (Actin FS) D-Dimer Puncture Site ABG pH ABG pCO2 at Pt Temp ABG pO2 at Pt Temp ABG HCO3 ABG O2 Sat (Measured) ABG O2 Content ABG Base Excess Rafi Test VBG pH POC VBG pCO2 POC VBG pO2 Mixed VBG HCO3 O2 Delivery Device Oxygen Flow Rate Vent Mode Vent Rate Mechanical Rate PEEP Pressure Support Vent Sodium 141 Potassium 4.8 Chloride 102 Carbon Dioxide 32 Anion Gap 7 L BUN 29 H Creatinine 0.5 L D Creat Clearance w eGFR > 60 POC Glucometer [phone] Random Glucose 270 H Lactic Acid Calcium 8.4 L Phosphorus 2.9 D Magnesium 2.4 Total Bilirubin 0.3 D AST 38 H D ALT 31 Alkaline Phosphatase 99 Creatine Kinase CK-MB (CK-2) Troponin I B-Natriuretic Peptide Total Protein 4.8 L Albumin 1.3 L TSH Free T3 Urine Color Urine Appearance Urine pH Ur Specific [place] Urine Protein Urine Glucose (UA) Urine Ketones Urine Blood Urine Nitrite Urine Bilirubin Urine Urobilinogen Ur Leukocyte Esterase Urine RBC Urine WBC Ur Epithelial Cells Urine Bacteria Hyaline Casts Urine Mucus Urine Yeast Stool Occult Blood Random Vancomycin Opiates Screen Methadone Screen Barbiturate Screen Phencyclidine Screen Ur Amphetamines Screen MDMA (Ecstasy) Screen Benzodiazepines Screen Cocaine Screen U Marijuana (THC) Screen Blood Type Antibody Screen Crossmatch Spec Expiration Date 06/27/16 06/27/16 06/27/16 07:25 12:20 16:55 WBC RBC Hgb Hct MCV MCHC RDW Plt Count MPV Neutrophils % Lymphocytes % Monocytes % Eosinophils % Basophils % Band Neutrophils Metamyelocytes Myelocytes Nucleated RBCs Differential Comment Hypersegmented Neuts Toxic Granulation Dohle Bodies [place] Platelet Estimate Platelet Comment RBC Morphology Polychromasia Hypochromic-Microcytic Poikilocytosis Basophilic Stippling Anisocytosis Microcytosis Macrocytosis Spherocytes Siderocytes Sickle Cells Target Cells Tear Drop Cells Ovalocytes Stomatocytes Helmet Cells [place] Bodies [place] E Cells Acanthocytes (Spur) Rouleaux Fragmented RBCs Schistocytes Morphology Comment INR PTT (Actin FS) D-Dimer Puncture Site Right radial ABG pH 7.39 ABG pCO2 at Pt Temp 49.3 H ABG pO2 at Pt Temp 69.5 L ABG HCO3 29.4 H ABG O2 Sat (Measured) 94.8 ABG O2 Content 9.9 L* ABG Base Excess 4.4 H Rafi Test Positive VBG pH POC VBG pCO2 POC VBG pO2 Mixed VBG HCO3 O2 Delivery Device Vent Oxygen Flow Rate 40 Vent Mode A/c Vent Rate 18 Mechanical Rate Yes PEEP 8.0 Pressure Support Vent 350 Sodium Potassium Chloride Carbon Dioxide Anion Gap BUN Creatinine Creat Clearance w eGFR POC Glucometer 204.10941 134.31496 Random Glucose Lactic Acid Calcium Phosphorus Magnesium Total Bilirubin AST ALT Alkaline Phosphatase Creatine Kinase CK-MB (CK-2) Troponin I B-Natriuretic Peptide Total Protein Albumin TSH Free T3 Urine Color Urine Appearance Urine pH Ur Specific [place] Urine Protein Urine Glucose (UA) Urine Ketones Urine Blood Urine Nitrite Urine Bilirubin Urine Urobilinogen Ur Leukocyte Esterase Urine RBC Urine WBC Ur Epithelial Cells Urine Bacteria Hyaline Casts Urine Mucus Urine Yeast Stool Occult Blood Random Vancomycin Opiates Screen Methadone Screen Barbiturate Screen Phencyclidine Screen Ur Amphetamines Screen MDMA (Ecstasy) Screen Benzodiazepines Screen Cocaine Screen U Marijuana (THC) Screen Blood Type Antibody Screen Crossmatch Spec Expiration Date 06/27/16 06/28/16 06/28/16 21:18 05:15 05:15 WBC 19.8 H RBC 3.44 L Hgb 8.5 L Hct 26.5 L MCV 77.2 L MCHC 32.1 RDW 27.8 H Plt Count 123 L MPV 9.6 Neutrophils % 95.0 H Lymphocytes % 3.0 L Monocytes % 2.0 L Eosinophils % Basophils % Band Neutrophils Metamyelocytes Myelocytes Nucleated RBCs Differential Comment Manual diff done Hypersegmented Neuts Toxic Granulation Dohle Bodies [place] Platelet Estimate Slt decreased Platelet Comment RBC Morphology Polychromasia Hypochromic-Microcytic 2+ Poikilocytosis Basophilic Stippling Anisocytosis 2+ Microcytosis 2+ Macrocytosis Spherocytes Siderocytes Sickle Cells Target Cells 1+ Tear Drop Cells 1+ Ovalocytes 1+ Stomatocytes Helmet Cells [place] Bodies [place] E Cells Acanthocytes (Sp[place]) Rouleaux Fragmented RBCs 2+ Schistocytes Morphology Comment Slide scanned INR PTT (Actin FS) D-Dimer Puncture Site ABG pH ABG pCO2 at Pt Temp ABG pO2 at Pt Temp ABG HCO3 ABG O2 Sat (Measured) ABG O2 Content ABG Base Excess Rafi Test VBG pH POC VBG pCO2 POC VBG pO2 Mixed VBG HCO3 O2 Delivery Device Oxygen Flow Rate Vent Mode Vent Rate Mechanical Rate PEEP Pressure Support Vent Sodium 141 Potassium 5.1 Chloride 103 Carbon Dioxide 33 H Anion Gap 5 L BUN 31 H Creatinine 0.4 L Creat Clearance w eGFR POC Glucometer 190.11364 Random Glucose 109 H D Lactic Acid Calcium 8.1 L Phosphorus Magnesium Total Bilirubin AST ALT Alkaline Phosphatase Creatine Kinase CK-MB (CK-2) Troponin I B-Natriuretic Peptide Total Protein Albumin TSH Free T3 Urine Color Urine Appearance Urine pH Ur Specific [place] Urine Protein Urine Glucose (UA) Urine Ketones Urine Blood Urine Nitrite Urine Bilirubin Urine Urobilinogen Ur Leukocyte Esterase Urine RBC Urine WBC Ur Epithelial Cells Urine Bacteria Hyaline Casts Urine Mucus Urine Yeast Stool Occult Blood Random Vancomycin Opiates Screen Methadone Screen Barbiturate Screen Phencyclidine Screen Ur Amphetamines Screen MDMA (Ecstasy) Screen Benzodiazepines Screen Cocaine Screen U Marijuana (THC) Screen Blood Type Antibody Screen Crossmatch Spec Expiration Date 06/28/16 06/28/16 06/28/16 05:46 07:05 12:38 WBC RBC Hgb Hct MCV MCHC RDW Plt Count MPV Neutrophils % Lymphocytes % Monocytes % Eosinophils % Basophils % Band Neutrophils Metamyelocytes Myelocytes Nucleated RBCs Differential Comment Hypersegmented Neuts Toxic Granulation Dohle Bodies [place] Platelet Estimate Platelet Comment RBC Morphology Polychromasia Hypochromic-Microcytic Poikilocytosis Basophilic Stippling Anisocytosis Microcytosis Macrocytosis Spherocytes Siderocytes Sickle Cells Target Cells Tear Drop Cells Ovalocytes Stomatocytes Helmet Cells [place] Bodies [place] E Cells Acanthocytes (Sp[place]) Rouleaux Fragmented RBCs Schistocytes Morphology Comment INR PTT (Actin FS) D-Dimer Puncture Site Right radial ABG pH 7.44 ABG pCO2 at Pt Temp 46.3 H ABG pO2 at Pt Temp 71.1 ABG HCO3 31.2 H ABG O2 Sat (Measured) 94.2 ABG O2 Content 11.8 L ABG Base Excess 6.8 H Rafi Test Positive VBG pH POC VBG pCO2 POC VBG pO2 Mixed VBG HCO3 O2 Delivery Device Mec.vent Oxygen Flow Rate 40% Vent Mode A/c Vent Rate 12 Mechanical Rate Yes PEEP 5.0 Pressure Support Vent 350 Sodium Potassium Chloride Carbon Dioxide Anion Gap BUN Creatinine Creat Clearance w eGFR POC Glucometer 145.74938 216.31414 Random Glucose Lactic Acid Calcium Phosphorus Magnesium Total Bilirubin AST ALT Alkaline Phosphatase Creatine Kinase CK-MB (CK-2) Troponin I B-Natriuretic Peptide Total Protein Albumin TSH Free T3 Urine Color Urine Appearance Urine pH Ur Specific [place] Urine Protein Urine Glucose (UA) Urine Ketones Urine Blood Urine Nitrite Urine Bilirubin Urine Urobilinogen Ur Leukocyte Esterase Urine RBC Urine WBC Ur Epithelial Cells Urine Bacteria Hyaline Casts Urine Mucus Urine Yeast Stool Occult Blood Random Vancomycin Opiates Screen Methadone Screen Barbiturate Screen Phencyclidine Screen Ur Amphetamines Screen MDMA (Ecstasy) Screen Benzodiazepines Screen Cocaine Screen U Marijuana (THC) Screen Blood Type Antibody Screen Crossmatch Spec Expiration Date 06/28/16 06/28/16 06/29/16 17:55 22:01 05:15 WBC 20.7 H RBC 3.74 Hgb 9.3 L Hct 28.9 L MCV 77.2 L MCHC 32.2 RDW 28.1 H Plt Count 135 MPV 9.5 Neutrophils % 91.0 H Lymphocytes % 6.0 L D Monocytes % 3.0 L Eosinophils % Basophils % Band Neutrophils Metamyelocytes Myelocytes Nucleated RBCs Differential Comment Manual diff done Hypersegmented Neuts Toxic Granulation Dohle Bodies [place] Platelet Estimate Decreased Platelet Comment No clumping noted RBC Morphology Polychromasia Hypochromic-Microcytic 2+ Poikilocytosis Basophilic Stippling 2+ Anisocytosis Microcytosis 2+ Macrocytosis Few Spherocytes Siderocytes Sickle Cells Target Cells 2+ Tear Drop Cells Ovalocytes Stomatocytes Helmet Cells [place] Bodies [place] E Cells Acanthocytes (Sp[place]) Rouleaux Fragmented RBCs Schistocytes Morphology Comment INR PTT (Actin FS) D-Dimer Puncture Site ABG pH ABG pCO2 at Pt Temp ABG pO2 at Pt Temp ABG HCO3 ABG O2 Sat (Measured) ABG O2 Content ABG Base Excess Rafi Test VBG pH POC VBG pCO2 POC VBG pO2 Mixed VBG HCO3 O2 Delivery Device Oxygen Flow Rate Vent Mode Vent Rate Mechanical Rate PEEP Pressure Support Vent Sodium Potassium Chloride Carbon Dioxide Anion Gap BUN Creatinine Creat Clearance w eGFR POC Glucometer 229.94066 192.08912 Random Glucose Lactic Acid Calcium Phosphorus Magnesium Total Bilirubin AST ALT Alkaline Phosphatase Creatine Kinase CK-MB (CK-2) Troponin I B-Natriuretic Peptide Total Protein Albumin TSH Free T3 Urine Color Urine Appearance Urine pH Ur Specific [place] Urine Protein Urine Glucose (UA) Urine Ketones Urine Blood Urine Nitrite Urine Bilirubin Urine Urobilinogen Ur Leukocyte Esterase Urine RBC Urine WBC Ur Epithelial Cells Urine Bacteria Hyaline Casts Urine Mucus Urine Yeast Stool Occult Blood Random Vancomycin Opiates Screen Methadone Screen Barbiturate Screen Phencyclidine Screen Ur Amphetamines Screen MDMA (Ecstasy) Screen Benzodiazepines Screen Cocaine Screen U Marijuana (THC) Screen Blood Type Antibody Screen Crossmatch Spec Expiration Date 06/29/16 06/29/16 06/29/16 05:15 05:57 07:05 WBC RBC Hgb Hct MCV MCHC RDW Plt Count MPV Neutrophils % Lymphocytes % Monocytes % Eosinophils % Basophils % Band Neutrophils Metamyelocytes Myelocytes Nucleated RBCs Differential Comment Hypersegmented Neuts Toxic Granulation Dohle Bodies [place]s Platelet Estimate Platelet Comment RBC Morphology Polychromasia Hypochromic-Microcytic Poikilocytosis Basophilic Stippling Anisocytosis Microcytosis Macrocytosis Spherocytes Siderocytes Sickle Cells Target Cells Tear Drop Cells Ovalocytes Stomatocytes Helmet Cells [place] Bodies [place] Cells Acanthocytes (Spur) Rouleaux Fragmented RBCs Schistocytes Morphology Comment INR PTT (Actin FS) D-Dimer Puncture Site Right radial ABG pH 7.46 H ABG pCO2 at Pt Temp 43.9 ABG pO2 at Pt Temp 65.4 L ABG HCO3 31.1 H ABG O2 Sat (Measured) 92.6 ABG O2 Content 13.4 L ABG Base Excess 6.9 H Rafi Test Positive VBG pH POC VBG pCO2 POC VBG pO2 Mixed VBG HCO3 O2 Delivery Device Vent Oxygen Flow Rate 40% Vent Mode A/c Vent Rate 12 Mechanical Rate Yes PEEP 5.0 Pressure Support Vent 350 Sodium 140 Potassium 5.3 H Chloride 102 Carbon Dioxide 29 Anion Gap 9 BUN 28 H Creatinine 0.4 L Creat Clearance w eGFR POC Glucometer [phone] Random Glucose 199 H D Lactic Acid Calcium 8.0 L Phosphorus Magnesium Total Bilirubin AST ALT Alkaline Phosphatase Creatine Kinase CK-MB (CK-2) Troponin I B-Natriuretic Peptide Total Protein Albumin TSH Free T3 Urine Color Urine Appearance Urine pH Ur Specific [place] Urine Protein Urine Glucose (UA) Urine Ketones Urine Blood Urine Nitrite Urine Bilirubin Urine Urobilinogen Ur Leukocyte Esterase Urine RBC Urine WBC Ur Epithelial Cells Urine Bacteria Hyaline Casts Urine Mucus Urine Yeast Stool Occult Blood Random Vancomycin Opiates Screen Methadone Screen Barbiturate Screen Phencyclidine Screen Ur Amphetamines Screen MDMA (Ecstasy) Screen Benzodiazepines Screen Cocaine Screen U Marijuana (THC) Screen Blood Type Antibody Screen Crossmatch Spec Expiration Date 06/29/16 06/29/16 06/29/16 11:32 16:29 19:15 WBC RBC Hgb Hct MCV MCHC RDW Plt Count MPV Neutrophils % Lymphocytes % Monocytes % Eosinophils % Basophils % Band Neutrophils Metamyelocytes Myelocytes Nucleated RBCs Differential Comment Hypersegmented Neuts Toxic Granulation Dohle Bodies [place] Platelet Estimate Platelet Comment RBC Morphology Polychromasia Hypochromic-Microcytic Poikilocytosis Basophilic Stippling Anisocytosis Microcytosis Macrocytosis Spherocytes Siderocytes Sickle Cells Target Cells Tear Drop Cells Ovalocytes Stomatocytes Helmet Cells [place] Bodies [place] Cells Acanthocytes (Spur) Rouleaux Fragmented RBCs Schistocytes Morphology Comment INR PTT (Actin FS) D-Dimer Puncture Site ABG pH ABG pCO2 at Pt Temp ABG pO2 at Pt Temp ABG HCO3 ABG O2 Sat (Measured) ABG O2 Content ABG Base Excess Rafi Test VBG pH POC VBG pCO2 POC VBG pO2 Mixed VBG HCO3 O2 Delivery Device Oxygen Flow Rate Vent Mode Vent Rate Mechanical Rate PEEP Pressure Support Vent Sodium Potassium 4.5 Chloride Carbon Dioxide Anion Gap BUN Creatinine Creat Clearance w eGFR POC Glucometer 282.19711 304.59774 Random Glucose Lactic Acid Calcium Phosphorus Magnesium Total Bilirubin AST ALT Alkaline Phosphatase Creatine Kinase CK-MB (CK-2) Troponin I B-Natriuretic Peptide Total Protein Albumin TSH Free T3 Urine Color Urine Appearance Urine pH Ur Specific [place] Urine Protein Urine Glucose (UA) Urine Ketones Urine Blood Urine Nitrite Urine Bilirubin Urine Urobilinogen Ur Leukocyte Esterase Urine RBC Urine WBC Ur Epithelial Cells Urine Bacteria Hyaline Casts Urine Mucus Urine Yeast Stool Occult Blood Random Vancomycin Opiates Screen Methadone Screen Barbiturate Screen Phencyclidine Screen Ur Amphetamines Screen MDMA (Ecstasy) Screen Benzodiazepines Screen Cocaine Screen U Marijuana (THC) Screen Blood Type Antibody Screen Crossmatch Spec Expiration Date 06/29/16 06/30/16 06/30/16 21:06 05:30 05:30 WBC 21.5 H RBC 3.61 Hgb 8.9 L Hct 27.5 L MCV 76.2 L MCHC 32.5 RDW 28.0 H Plt Count 177 D MPV 9.6 Neutrophils % 96.0 H Lymphocytes % 2.0 L D Monocytes % 1.0 L Eosinophils % Basophils % Band Neutrophils 1.0 D Metamyelocytes Myelocytes Nucleated RBCs Differential Comment Manual diff done Hypersegmented Neuts Toxic Granulation Dohle Bodies Hazel Rods Platelet Estimate Adequate Platelet Comment RBC Morphology Polychromasia Hypochromic-Microcytic Poikilocytosis Basophilic Stippling Anisocytosis Microcytosis Macrocytosis Spherocytes Siderocytes Sickle Cells Target Cells Tear Drop Cells Ovalocytes Stomatocytes Helmet Cells [place] Bodies [place] Cells Acanthocytes (Spur) Rouleaux Fragmented RBCs Schistocytes Morphology Comment INR PTT (Actin FS) D-Dimer Puncture Site ABG pH ABG pCO2 at Pt Temp ABG pO2 at Pt Temp ABG HCO3 ABG O2 Sat (Measured) ABG O2 Content ABG Base Excess Rafi Test VBG pH POC VBG pCO2 POC VBG pO2 Mixed VBG HCO3 O2 Delivery Device Oxygen Flow Rate Vent Mode Vent Rate Mechanical Rate PEEP Pressure Support Vent Sodium 139 Potassium 4.5 Chloride 97 L Carbon Dioxide 34 H Anion Gap 8 BUN 31 H Creatinine 0.5 L D Creat Clearance w eGFR > 60 POC Glucometer [phone] Random Glucose 236 H Lactic Acid Calcium 8.2 L Phosphorus 3.6 D Magnesium 2.2 Total Bilirubin 0.3 AST 35 ALT 24 D Alkaline Phosphatase 84 Creatine Kinase CK-MB (CK-2) Troponin I B-Natriuretic Peptide Total Protein 4.5 L Albumin 1.3 L TSH Free T3 Urine Color Urine Appearance Urine pH Ur Specific [place] Urine Protein Urine Glucose (UA) Urine Ketones Urine Blood Urine Nitrite Urine Bilirubin Urine Urobilinogen Ur Leukocyte Esterase Urine RBC Urine WBC Ur Epithelial Cells Urine Bacteria Hyaline Casts Urine Mucus Urine Yeast Stool Occult Blood Random Vancomycin Opiates Screen Methadone Screen Barbiturate Screen Phencyclidine Screen Ur Amphetamines Screen MDMA (Ecstasy) Screen Benzodiazepines Screen Cocaine Screen U Marijuana (THC) Screen Blood Type Antibody Screen Crossmatch Spec Expiration Date 06/30/16 06/30/16 06/30/16 05:39 07:00 11:13 WBC RBC Hgb Hct MCV MCHC RDW Plt Count MPV Neutrophils % Lymphocytes % Monocytes % Eosinophils % Basophils % Band Neutrophils Metamyelocytes Myelocytes Nucleated RBCs Differential Comment Hypersegmented Neuts Toxic Granulation Dohle Bodies [place]s Platelet Estimate Platelet Comment RBC Morphology Polychromasia Hypochromic-Microcytic Poikilocytosis Basophilic Stippling Anisocytosis Microcytosis Macrocytosis Spherocytes Siderocytes Sickle Cells Target Cells Tear Drop Cells Ovalocytes Stomatocytes Helmet Cells [place] Bodies [place] E Cells Acanthocytes (Spur) Rouleaux Fragmented RBCs Schistocytes Morphology Comment INR PTT (Actin FS) D-Dimer Puncture Site Right radial ABG pH 7.50 H ABG pCO2 at Pt Temp 44.7 ABG pO2 at Pt Temp 65.2 L ABG HCO3 34.6 H ABG O2 Sat (Measured) 92.9 ABG O2 Content 11.1 L ABG Base Excess 10.5 H Rafi Test Positive VBG pH POC VBG pCO2 POC VBG pO2 Mixed VBG HCO3 O2 Delivery Device Mec.vent Oxygen Flow Rate 40% Vent Mode A/c Vent Rate 10 Mechanical Rate Yes PEEP 5.0 Pressure Support Vent 350 Sodium Potassium Chloride Carbon Dioxide Anion Gap BUN Creatinine Creat Clearance w eGFR POC Glucometer 263.66242 [phone] Random Glucose Lactic Acid Calcium Phosphorus Magnesium Total Bilirubin AST ALT Alkaline Phosphatase Creatine Kinase CK-MB (CK-2) Troponin I B-Natriuretic Peptide Total Protein Albumin TSH Free T3 Urine Color Urine Appearance Urine pH Ur Specific [place] Urine Protein Urine Glucose (UA) Urine Ketones Urine Blood Urine Nitrite Urine Bilirubin Urine Urobilinogen Ur Leukocyte Esterase Urine RBC Urine WBC Ur Epithelial Cells Urine Bacteria Hyaline Casts Urine Mucus Urine Yeast Stool Occult Blood Random Vancomycin Opiates Screen Methadone Screen Barbiturate Screen Phencyclidine Screen Ur Amphetamines Screen MDMA (Ecstasy) Screen Benzodiazepines Screen Cocaine Screen U Marijuana (THC) Screen Blood Type Antibody Screen Crossmatch Spec Expiration Date 06/30/16 06/30/16 07/01/16 16:51 21:58 05:10 WBC 21.1 H RBC 3.52 L Hgb 8.7 L Hct 27.1 L MCV 77.0 L MCHC 32.3 RDW 27.5 H Plt Count 189 MPV 9.6 Neutrophils % 94.0 H Lymphocytes % 3.0 L D Monocytes % 1.0 L Eosinophils % Basophils % Band Neutrophils 1.0 Metamyelocytes Myelocytes 1 Nucleated RBCs Differential Comment Manual diff done Hypersegmented Neuts Toxic Granulation Dohle Bodies [place] Rods Platelet Estimate Adequate Platelet Comment RBC Morphology Polychromasia Hypochromic-Microcytic Poikilocytosis Basophilic Stippling Anisocytosis Microcytosis Macrocytosis Spherocytes Siderocytes Sickle Cells Target Cells Tear Drop Cells Ovalocytes Stomatocytes Helmet Cells [place] Bodies [place] E Cells Acanthocytes (Spur) Rouleaux Fragmented RBCs Schistocytes Morphology Comment INR PTT (Actin FS) D-Dimer Puncture Site ABG pH ABG pCO2 at Pt Temp ABG pO2 at Pt Temp ABG HCO3 ABG O2 Sat (Measured) ABG O2 Content ABG Base Excess Rafi Test VBG pH POC VBG pCO2 POC VBG pO2 Mixed VBG HCO3 O2 Delivery Device Oxygen Flow Rate Vent Mode Vent Rate Mechanical Rate PEEP Pressure Support Vent Sodium Potassium Chloride Carbon Dioxide Anion Gap BUN Creatinine Creat Clearance w eGFR POC Glucometer 263.32441 [phone] Random Glucose Lactic Acid Calcium Phosphorus Magnesium Total Bilirubin AST ALT Alkaline Phosphatase Creatine Kinase CK-MB (CK-2) Troponin I B-Natriuretic Peptide Total Protein Albumin TSH Free T3 Urine Color Urine Appearance Urine pH Ur Specific [place] Urine Protein Urine Glucose (UA) Urine Ketones Urine Blood Urine Nitrite Urine Bilirubin Urine Urobilinogen Ur Leukocyte Esterase Urine RBC Urine WBC Ur Epithelial Cells Urine Bacteria Hyaline Casts Urine Mucus Urine Yeast Stool Occult Blood Random Vancomycin Opiates Screen Methadone Screen Barbiturate Screen Phencyclidine Screen Ur Amphetamines Screen MDMA (Ecstasy) Screen Benzodiazepines Screen Cocaine Screen U Marijuana (THC) Screen Blood Type Antibody Screen Crossmatch Spec Expiration Date 07/01/16 07/01/16 07/01/16 05:10 05:45 11:16 WBC RBC Hgb Hct MCV MCHC RDW Plt Count MPV Neutrophils % Lymphocytes % Monocytes % Eosinophils % Basophils % Band Neutrophils Metamyelocytes Myelocytes Nucleated RBCs Differential Comment Hypersegmented Neuts Toxic Granulation Dohle Bodies [place]s Platelet Estimate Platelet Comment RBC Morphology Polychromasia Hypochromic-Microcytic Poikilocytosis Basophilic Stippling Anisocytosis Microcytosis Macrocytosis Spherocytes Siderocytes Sickle Cells Target Cells Tear Drop Cells Ovalocytes Stomatocytes Helmet Cells [place] Bodies [place] E Cells Acanthocytes (Spur) Rouleaux Fragmented RBCs Schistocytes Morphology Comment INR PTT (Actin FS) D-Dimer Puncture Site ABG pH ABG pCO2 at Pt Temp ABG pO2 at Pt Temp ABG HCO3 ABG O2 Sat (Measured) ABG O2 Content ABG Base Excess Rafi Test VBG pH POC VBG pCO2 POC VBG pO2 Mixed VBG HCO3 O2 Delivery Device Oxygen Flow Rate Vent Mode Vent Rate Mechanical Rate PEEP Pressure Support Vent Sodium 139 Potassium 4.4 Chloride 97 L Carbon Dioxide 35 H Anion Gap 7 L BUN 30 H Creatinine 0.5 L Creat Clearance w eGFR POC Glucometer 263.59500 [phone] Random Glucose 223 H Lactic Acid Calcium 8.4 L Phosphorus Magnesium Total Bilirubin AST ALT Alkaline Phosphatase Creatine Kinase CK-MB (CK-2) Troponin I B-Natriuretic Peptide Total Protein Albumin TSH Free T3 Urine Color Urine Appearance Urine pH Ur Specific [place] Urine Protein Urine Glucose (UA) Urine Ketones Urine Blood Urine Nitrite Urine Bilirubin Urine Urobilinogen Ur Leukocyte Esterase Urine RBC Urine WBC Ur Epithelial Cells Urine Bacteria Hyaline Casts Urine Mucus Urine Yeast Stool Occult Blood Random Vancomycin Opiates Screen Methadone Screen Barbiturate Screen Phencyclidine Screen Ur Amphetamines Screen MDMA (Ecstasy) Screen Benzodiazepines Screen Cocaine Screen U Marijuana (THC) Screen Blood Type Antibody Screen Crossmatch Spec Expiration Date 07/01/16 07/01/16 07/02/16 17:26 21:06 05:10 WBC 20.8 H RBC 3.63 Hgb 8.9 L Hct 28.2 L MCV 77.7 L MCHC 31.4 L RDW 27.5 H Plt Count 230 D MPV 10.2 Neutrophils % 75.0 D Lymphocytes % 4.0 L D Monocytes % 4.0 D Eosinophils % Basophils % Band Neutrophils 12.0 H D Metamyelocytes 5 H Myelocytes Nucleated RBCs 2 H Differential Comment Hypersegmented Neuts Toxic Granulation Dohle Bodies [place] Rods Platelet Estimate Adequate Platelet Comment No clotting detected RBC Morphology Polychromasia 1+ Hypochromic-Microcytic 1+ Poikilocytosis Basophilic Stippling Anisocytosis 1+ Microcytosis Macrocytosis Spherocytes Siderocytes Sickle Cells Target Cells Tear Drop Cells Ovalocytes Stomatocytes Helmet Cells [place] Bodies [place] E Cells Acanthocytes (Spur) Rouleaux Fragmented RBCs Schistocytes Morphology Comment INR PTT (Actin FS) D-Dimer Puncture Site ABG pH ABG pCO2 at Pt Temp ABG pO2 at Pt Temp ABG HCO3 ABG O2 Sat (Measured) ABG O2 Content ABG Base Excess Rafi Test VBG pH POC VBG pCO2 POC VBG pO2 Mixed VBG HCO3 O2 Delivery Device Oxygen Flow Rate Vent Mode Vent Rate Mechanical Rate PEEP Pressure Support Vent Sodium Potassium Chloride Carbon Dioxide Anion Gap BUN Creatinine Creat Clearance w eGFR POC Glucometer 302.00564 [phone] Random Glucose Lactic Acid Calcium Phosphorus Magnesium Total Bilirubin AST ALT Alkaline Phosphatase Creatine Kinase CK-MB (CK-2) Troponin I B-Natriuretic Peptide Total Protein Albumin TSH Free T3 Urine Color Urine Appearance Urine pH Ur Specific [place] Urine Protein Urine Glucose (UA) Urine Ketones Urine Blood Urine Nitrite Urine Bilirubin Urine Urobilinogen Ur Leukocyte Esterase Urine RBC Urine WBC Ur Epithelial Cells Urine Bacteria Hyaline Casts Urine Mucus Urine Yeast Stool Occult Blood Random Vancomycin Opiates Screen Methadone Screen Barbiturate Screen Phencyclidine Screen Ur Amphetamines Screen MDMA (Ecstasy) Screen Benzodiazepines Screen Cocaine Screen U Marijuana (THC) Screen Blood Type Antibody Screen Crossmatch Spec Expiration Date 07/02/16 07/02/16 07/02/16 05:10 05:14 08:40 WBC RBC Hgb Hct MCV MCHC RDW Plt Count MPV Neutrophils % Lymphocytes % Monocytes % Eosinophils % Basophils % Band Neutrophils Metamyelocytes Myelocytes Nucleated RBCs Differential Comment Hypersegmented Neuts Toxic Granulation Dohle Bodies [place] Platelet Estimate Platelet Comment RBC Morphology Polychromasia Hypochromic-Microcytic Poikilocytosis Basophilic Stippling Anisocytosis Microcytosis Macrocytosis Spherocytes Siderocytes Sickle Cells Target Cells Tear Drop Cells Ovalocytes Stomatocytes Helmet Cells [place] Bodies [place] E Cells Acanthocytes (Spur) Rouleaux Fragmented RBCs Schistocytes Morphology Comment INR PTT (Actin FS) D-Dimer Puncture Site ABG pH ABG pCO2 at Pt Temp ABG pO2 at Pt Temp ABG HCO3 ABG O2 Sat (Measured) ABG O2 Content ABG Base Excess Rafi Test VBG pH POC VBG pCO2 POC VBG pO2 Mixed VBG HCO3 O2 Delivery Device Oxygen Flow Rate Vent Mode Vent Rate Mechanical Rate PEEP Pressure Support Vent Sodium Cancelled 137 Potassium Cancelled 4.6 Chloride Cancelled 97 L Carbon Dioxide Cancelled 36 H Anion Gap Cancelled 4 L BUN Cancelled 32 H Creatinine Cancelled 0.4 L Creat Clearance w eGFR POC Glucometer [phone] Random Glucose Cancelled 205 H Lactic Acid Calcium Cancelled 8.3 L Phosphorus Magnesium Total Bilirubin AST ALT Alkaline Phosphatase Creatine Kinase CK-MB (CK-2) Troponin I B-Natriuretic Peptide Total Protein Albumin TSH Free T3 Urine Color Urine Appearance Urine pH Ur Specific [place] Urine Protein Urine Glucose (UA) Urine Ketones Urine Blood Urine Nitrite Urine Bilirubin Urine Urobilinogen Ur Leukocyte Esterase Urine RBC Urine WBC Ur Epithelial Cells Urine Bacteria Hyaline Casts Urine Mucus Urine Yeast Stool Occult Blood Random Vancomycin Opiates Screen Methadone Screen Barbiturate Screen Phencyclidine Screen Ur Amphetamines Screen MDMA (Ecstasy) Screen Benzodiazepines Screen Cocaine Screen U Marijuana (THC) Screen Blood Type Antibody Screen Crossmatch Spec Expiration Date 07/02/16 07/02/16 07/02/16 10:05 15:35 16:07 WBC 20.5 H RBC 3.38 L Hgb 8.1 L Hct 26.2 L MCV 77.5 L MCHC 31.1 L RDW 27.5 H Plt Count 229 MPV 9.8 Neutrophils % Lymphocytes % Monocytes % Eosinophils % Basophils % Band Neutrophils Metamyelocytes Myelocytes Nucleated RBCs Differential Comment Hypersegmented Neuts Toxic Granulation Dohle Bodies [place]s Platelet Estimate Adequate Platelet Comment RBC Morphology Polychromasia 1+ Hypochromic-Microcytic 2+ Poikilocytosis Basophilic Stippling Anisocytosis 3+ Microcytosis Macrocytosis 2+ Spherocytes Siderocytes Sickle Cells Target Cells 1+ Tear Drop Cells Ovalocytes Stomatocytes Helmet Cells [place] Bodies [place] Cells Acanthocytes (Spur) Rouleaux Fragmented RBCs Schistocytes Morphology Comment INR PTT (Actin FS) D-Dimer Puncture Site ABG pH ABG pCO2 at Pt Temp ABG pO2 at Pt Temp ABG HCO3 ABG O2 Sat (Measured) ABG O2 Content ABG Base Excess Rafi Test VBG pH POC VBG pCO2 POC VBG pO2 Mixed VBG HCO3 O2 Delivery Device Oxygen Flow Rate Vent Mode Vent Rate Mechanical Rate PEEP Pressure Support Vent Sodium Potassium Chloride Carbon Dioxide Anion Gap BUN Creatinine Creat Clearance w eGFR POC Glucometer 261.08700 212.30212 Random Glucose Lactic Acid Calcium Phosphorus Magnesium Total Bilirubin AST ALT Alkaline Phosphatase Creatine Kinase CK-MB (CK-2) Troponin I B-Natriuretic Peptide Total Protein Albumin TSH Free T3 Urine Color Urine Appearance Urine pH Ur Specific [place] Urine Protein Urine Glucose (UA) Urine Ketones Urine Blood Urine Nitrite Urine Bilirubin Urine Urobilinogen Ur Leukocyte Esterase Urine RBC Urine WBC Ur Epithelial Cells Urine Bacteria Hyaline Casts Urine Mucus Urine Yeast Stool Occult Blood Random Vancomycin Opiates Screen Methadone Screen Barbiturate Screen Phencyclidine Screen Ur Amphetamines Screen MDMA (Ecstasy) Screen Benzodiazepines Screen Cocaine Screen U Marijuana (THC) Screen Blood Type Antibody Screen Crossmatch Spec Expiration Date 07/02/16 07/02/16 07/02/16 18:15 18:40 21:25 WBC 19.8 H RBC 2.91 L Hgb 7.0 L D Hct 22.7 L MCV 78.0 L MCHC 30.8 L RDW 27.9 H Plt Count 205 MPV 9.5 Neutrophils % Lymphocytes % Monocytes % Eosinophils % Basophils % Band Neutrophils Metamyelocytes Myelocytes Nucleated RBCs Differential Comment Hypersegmented Neuts Toxic Granulation Dohle Bodies [place] Platelet Estimate Adequate Platelet Comment RBC Morphology Polychromasia 1+ Hypochromic-Microcytic 2+ Poikilocytosis Basophilic Stippling Anisocytosis 3+ Microcytosis 2+ Macrocytosis Spherocytes Siderocytes Sickle Cells Target Cells Tear Drop Cells Ovalocytes 1+ Stomatocytes Helmet Cells [place] Bodies [place] E Cells Acanthocytes ([place]) Rouleaux Fragmented RBCs Schistocytes Morphology Comment INR PTT (Actin FS) D-Dimer Puncture Site ABG pH ABG pCO2 at Pt Temp ABG pO2 at Pt Temp ABG HCO3 ABG O2 Sat (Measured) ABG O2 Content ABG Base Excess Rafi Test VBG pH POC VBG pCO2 POC VBG pO2 Mixed VBG HCO3 O2 Delivery Device Oxygen Flow Rate Vent Mode Vent Rate Mechanical Rate PEEP Pressure Support Vent Sodium Potassium Chloride Carbon Dioxide Anion Gap BUN Creatinine Creat Clearance w eGFR POC Glucometer [phone] Random Glucose Lactic Acid Calcium Phosphorus Magnesium Total Bilirubin AST ALT Alkaline Phosphatase Creatine Kinase CK-MB (CK-2) Troponin I B-Natriuretic Peptide Total Protein Albumin TSH Free T3 Urine Color Urine Appearance Urine pH Ur Specific [place] Urine Protein Urine Glucose (UA) Urine Ketones Urine Blood Urine Nitrite Urine Bilirubin Urine Urobilinogen Ur Leukocyte Esterase Urine RBC Urine WBC Ur Epithelial Cells Urine Bacteria Hyaline Casts Urine Mucus Urine Yeast Stool Occult Blood Random Vancomycin Opiates Screen Methadone Screen Barbiturate Screen Phencyclidine Screen Ur Amphetamines Screen MDMA (Ecstasy) Screen Benzodiazepines Screen Cocaine Screen U Marijuana (THC) Screen Blood Type A POSITIVE Antibody Screen Negative Crossmatch See Detail Spec Expiration Date 07/03/16 07/03/16 07/03/16 05:15 05:15 05:47 WBC 21.1 H RBC 4.04 D Hgb 10.9 D Hct 32.3 L D MCV 80.0 MCHC 33.8 RDW 21.1 H D Plt Count 164 MPV 9.6 Neutrophils % Lymphocytes % Monocytes % Eosinophils % Basophils % Band Neutrophils Metamyelocytes Myelocytes Nucleated RBCs Differential Comment Hypersegmented Neuts Toxic Granulation Dohle Bodies [place] Rods Platelet Estimate Platelet Comment RBC Morphology Polychromasia Hypochromic-Microcytic Poikilocytosis Basophilic Stippling Anisocytosis Microcytosis Macrocytosis Spherocytes Siderocytes Sickle Cells Target Cells Tear Drop Cells Ovalocytes Stomatocytes Helmet Cells [place] Bodies [place] Cells Acanthocytes (Sp[place]) Rouleaux Fragmented RBCs Schistocytes Morphology Comment INR PTT (Actin FS) D-Dimer Puncture Site ABG pH ABG pCO2 at Pt Temp ABG pO2 at Pt Temp ABG HCO3 ABG O2 Sat (Measured) ABG O2 Content ABG Base Excess Rafi Test VBG pH POC VBG pCO2 POC VBG pO2 Mixed VBG HCO3 O2 Delivery Device Oxygen Flow Rate Vent Mode Vent Rate Mechanical Rate PEEP Pressure Support Vent Sodium 140 Potassium 4.7 Chloride 99 Carbon Dioxide 35 H Anion Gap 6 L BUN 34 H Creatinine 0.4 L Creat Clearance w eGFR POC Glucometer [phone] Random Glucose 116 H D Lactic Acid Calcium 8.0 L Phosphorus Magnesium Total Bilirubin AST ALT Alkaline Phosphatase Creatine Kinase CK-MB (CK-2) Troponin I B-Natriuretic Peptide Total Protein Albumin TSH Free T3 Urine Color Urine Appearance Urine pH Ur Specific [place] Urine Protein Urine Glucose (UA) Urine Ketones Urine Blood Urine Nitrite Urine Bilirubin Urine Urobilinogen Ur Leukocyte Esterase Urine RBC Urine WBC Ur Epithelial Cells Urine Bacteria Hyaline Casts Urine Mucus Urine Yeast Stool Occult Blood Random Vancomycin Opiates Screen Methadone Screen Barbiturate Screen Phencyclidine Screen Ur Amphetamines Screen MDMA (Ecstasy) Screen Benzodiazepines Screen Cocaine Screen U Marijuana (THC) Screen Blood Type Antibody Screen Crossmatch Spec Expiration Date 07/03/16 07/03/16 07/03/16 11:32 12:20 17:17 WBC RBC Hgb Hct MCV MCHC RDW Plt Count MPV Neutrophils % Lymphocytes % Monocytes % Eosinophils % Basophils % Band Neutrophils Metamyelocytes Myelocytes Nucleated RBCs Differential Comment Hypersegmented Neuts Toxic Granulation Dohle Bodies [place] Platelet Estimate Platelet Comment RBC Morphology Polychromasia Hypochromic-Microcytic Poikilocytosis Basophilic Stippling Anisocytosis Microcytosis Macrocytosis Spherocytes Siderocytes Sickle Cells Target Cells Tear Drop Cells Ovalocytes Stomatocytes Helmet Cells [place] Bodies [place] Cells Acanthocytes (Spur) Rouleaux Fragmented RBCs Schistocytes Morphology Comment INR PTT (Actin FS) D-Dimer Puncture Site Right radial ABG pH 7.49 H ABG pCO2 at Pt Temp 46.0 H ABG pO2 at Pt Temp 55.4 L ABG HCO3 34.6 H ABG O2 Sat (Measured) 89.5 L ABG O2 Content 13.7 L ABG Base Excess 10.2 H Rafi Test Positive VBG pH POC VBG pCO2 POC VBG pO2 Mixed VBG HCO3 O2 Delivery Device Nasal Oxygen Flow Rate 4lpm Vent Mode Vent Rate Mechanical Rate PEEP 0.0 Pressure Support Vent Sodium Potassium Chloride Carbon Dioxide Anion Gap BUN Creatinine Creat Clearance w eGFR POC Glucometer 98.05767 83.94015 Random Glucose Lactic Acid Calcium Phosphorus Magnesium Total Bilirubin AST ALT Alkaline Phosphatase Creatine Kinase CK-MB (CK-2) Troponin I B-Natriuretic Peptide Total Protein Albumin TSH Free T3 Urine Color Urine Appearance Urine pH Ur Specific [place] Urine Protein Urine Glucose (UA) Urine Ketones Urine Blood Urine Nitrite Urine Bilirubin Urine Urobilinogen Ur Leukocyte Esterase Urine RBC Urine WBC Ur Epithelial Cells Urine Bacteria Hyaline Casts Urine Mucus Urine Yeast Stool Occult Blood Random Vancomycin Opiates Screen Methadone Screen Barbiturate Screen Phencyclidine Screen Ur Amphetamines Screen MDMA (Ecstasy) Screen Benzodiazepines Screen Cocaine Screen U Marijuana (THC) Screen Blood Type Antibody Screen Crossmatch Spec Expiration Date 07/03/16 07/04/16 07/04/16 21:26 05:15 05:15 WBC 16.8 H RBC 3.68 Hgb 10.0 L Hct 30.1 L MCV 81.8 MCHC 33.2 RDW 21.3 H Plt Count 142 MPV 9.3 Neutrophils % Lymphocytes % Monocytes % Eosinophils % Basophils % Band Neutrophils Metamyelocytes Myelocytes Nucleated RBCs Differential Comment Hypersegmented Neuts Toxic Granulation Dohle Bodies [place] Rods Platelet Estimate Platelet Comment RBC Morphology Polychromasia Hypochromic-Microcytic Poikilocytosis Basophilic Stippling Anisocytosis Microcytosis Macrocytosis Spherocytes Siderocytes Sickle Cells Target Cells Tear Drop Cells Ovalocytes Stomatocytes Helmet Cells [place] Bodies [place] E Cells Acanthocytes (Spur) Rouleaux Fragmented RBCs Schistocytes Morphology Comment INR PTT (Actin FS) D-Dimer Puncture Site ABG pH ABG pCO2 at Pt Temp ABG pO2 at Pt Temp ABG HCO3 ABG O2 Sat (Measured) ABG O2 Content ABG Base Excess Rafi Test VBG pH POC VBG pCO2 POC VBG pO2 Mixed VBG HCO3 O2 Delivery Device Oxygen Flow Rate Vent Mode Vent Rate Mechanical Rate PEEP Pressure Support Vent Sodium 142 Potassium 4.6 Chloride 98 Carbon Dioxide 37 H Anion Gap 7 L BUN 30 H Creatinine 0.3 L D Creat Clearance w eGFR POC Glucometer 121.35948 Random Glucose 78 D Lactic Acid Calcium 8.6 Phosphorus 3.8 Magnesium 2.3 Total Bilirubin AST ALT Alkaline Phosphatase Creatine Kinase CK-MB (CK-2) Troponin I B-Natriuretic Peptide Total Protein Albumin TSH Free T3 Urine Color Urine Appearance Urine pH Ur Specific [place] Urine Protein Urine Glucose (UA) Urine Ketones Urine Blood Urine Nitrite Urine Bilirubin Urine Urobilinogen Ur Leukocyte Esterase Urine RBC Urine WBC Ur Epithelial Cells Urine Bacteria Hyaline Casts Urine Mucus Urine Yeast Stool Occult Blood Random Vancomycin Opiates Screen Methadone Screen Barbiturate Screen Phencyclidine Screen Ur Amphetamines Screen MDMA (Ecstasy) Screen Benzodiazepines Screen Cocaine Screen U Marijuana (THC) Screen Blood Type Antibody Screen Crossmatch Spec Expiration Date 07/04/16 07/04/16 07/04/16 05:21 07:15 10:59 WBC RBC Hgb Hct MCV MCHC RDW Plt Count MPV Neutrophils % Lymphocytes % Monocytes % Eosinophils % Basophils % Band Neutrophils Metamyelocytes Myelocytes Nucleated RBCs Differential Comment Hypersegmented Neuts Toxic Granulation Dohle Bodies [place] Rods Platelet Estimate Platelet Comment RBC Morphology Polychromasia Hypochromic-Microcytic Poikilocytosis Basophilic Stippling Anisocytosis Microcytosis Macrocytosis Spherocytes Siderocytes Sickle Cells Target Cells Tear Drop Cells Ovalocytes Stomatocytes Helmet Cells [place] Bodies [place] Cells Acanthocytes (Spur) Rouleaux Fragmented RBCs Schistocytes Morphology Comment INR PTT (Actin FS) D-Dimer Puncture Site Right radial ABG pH 7.51 H ABG pCO2 at Pt Temp 44.3 ABG pO2 at Pt Temp 63.0 L ABG HCO3 34.8 H ABG O2 Sat (Measured) 92.9 ABG O2 Content 12.9 L ABG Base Excess 10.7 H Rafi Test Positive VBG pH POC VBG pCO2 POC VBG pO2 Mixed VBG HCO3 O2 Delivery Device N/c Oxygen Flow Rate 5 lpm Vent Mode Vent Rate Mechanical Rate PEEP 0.0 Pressure Support Vent Sodium Potassium Chloride Carbon Dioxide Anion Gap BUN Creatinine Creat Clearance w eGFR POC Glucometer 91.45776 80.64649 Random Glucose Lactic Acid Calcium Phosphorus Magnesium Total Bilirubin AST ALT Alkaline Phosphatase Creatine Kinase CK-MB (CK-2) Troponin I B-Natriuretic Peptide Total Protein Albumin TSH Free T3 Urine Color Urine Appearance Urine pH Ur Specific [place] Urine Protein Urine Glucose (UA) Urine Ketones Urine Blood Urine Nitrite Urine Bilirubin Urine Urobilinogen Ur Leukocyte Esterase Urine RBC Urine WBC Ur Epithelial Cells Urine Bacteria Hyaline Casts Urine Mucus Urine Yeast Stool Occult Blood Random Vancomycin Opiates Screen Methadone Screen Barbiturate Screen Phencyclidine Screen Ur Amphetamines Screen MDMA (Ecstasy) Screen Benzodiazepines Screen Cocaine Screen U Marijuana (THC) Screen Blood Type Antibody Screen Crossmatch Spec Expiration Date 07/04/16 07/04/16 07/05/16 17:14 22:31 05:58 WBC RBC Hgb Hct MCV MCHC RDW Plt Count MPV Neutrophils % Lymphocytes % Monocytes % Eosinophils % Basophils % Band Neutrophils Metamyelocytes Myelocytes Nucleated RBCs Differential Comment Hypersegmented Neuts Toxic Granulation Dohle Bodies Hazel Rods Platelet Estimate Platelet Comment RBC Morphology Polychromasia Hypochromic-Microcytic Poikilocytosis Basophilic Stippling Anisocytosis Microcytosis Macrocytosis Spherocytes Siderocytes Sickle Cells Target Cells Tear Drop Cells Ovalocytes Stomatocytes Helmet Cells [place] Bodies [place] Cells Acanthocytes (Spur) Rouleaux Fragmented RBCs Schistocytes Morphology Comment INR PTT (Actin FS) D-Dimer Puncture Site ABG pH ABG pCO2 at Pt Temp ABG pO2 at Pt Temp ABG HCO3 ABG O2 Sat (Measured) ABG O2 Content ABG Base Excess Rafi Test VBG pH POC VBG pCO2 POC VBG pO2 Mixed VBG HCO3 O2 Delivery Device Oxygen Flow Rate Vent Mode Vent Rate Mechanical Rate PEEP Pressure Support Vent Sodium Potassium Chloride Carbon Dioxide Anion Gap BUN Creatinine Creat Clearance w eGFR POC Glucometer 102.24721 128.11031 115.08849 Random Glucose Lactic Acid Calcium Phosphorus Magnesium Total Bilirubin AST ALT Alkaline Phosphatase Creatine Kinase CK-MB (CK-2) Troponin I B-Natriuretic Peptide Total Protein Albumin TSH Free T3 Urine Color Urine Appearance Urine pH Ur Specific [place] Urine Protein Urine Glucose (UA) Urine Ketones Urine Blood Urine Nitrite Urine Bilirubin Urine Urobilinogen Ur Leukocyte Esterase Urine RBC Urine WBC Ur Epithelial Cells Urine Bacteria Hyaline Casts Urine Mucus Urine Yeast Stool Occult Blood Random Vancomycin Opiates Screen Methadone Screen Barbiturate Screen Phencyclidine Screen Ur Amphetamines Screen MDMA (Ecstasy) Screen Benzodiazepines Screen Cocaine Screen U Marijuana (THC) Screen Blood Type Antibody Screen Crossmatch Spec Expiration Date 07/05/16 07/05/16 07/05/16 08:10 08:10 10:54 WBC 16.6 H RBC 3.55 L Hgb 9.3 L Hct 29.8 L MCV 84.2 MCHC 31.2 L RDW 21.2 H Plt Count 125 L MPV 9.4 Neutrophils % 95.1 H Lymphocytes % 2.8 L D Monocytes % 1.6 L Eosinophils % 0.1 Basophils % 0.4 D Band Neutrophils Metamyelocytes Myelocytes Nucleated RBCs Differential Comment Hypersegmented Neuts Toxic Granulation Dohle Bodies [place] Platelet Estimate Platelet Comment RBC Morphology Polychromasia Hypochromic-Microcytic Poikilocytosis Basophilic Stippling Anisocytosis Microcytosis Macrocytosis Spherocytes Siderocytes Sickle Cells Target Cells Tear Drop Cells Ovalocytes Stomatocytes Helmet Cells [place] Bodies [place] Cells Acanthocytes (Spur) Rouleaux Fragmented RBCs Schistocytes Morphology Comment INR PTT (Actin FS) D-Dimer Puncture Site ABG pH ABG pCO2 at Pt Temp ABG pO2 at Pt Temp ABG HCO3 ABG O2 Sat (Measured) ABG O2 Content ABG Base Excess Rafi Test VBG pH POC VBG pCO2 POC VBG pO2 Mixed VBG HCO3 O2 Delivery Device Oxygen Flow Rate Vent Mode Vent Rate Mechanical Rate PEEP Pressure Support Vent Sodium 139 Potassium 3.9 Chloride 97 L Carbon Dioxide 34 H Anion Gap 8 BUN 23 H D Creatinine 0.3 L Creat Clearance w eGFR POC Glucometer 120.64827 Random Glucose 76 Lactic Acid Calcium 8.4 L Phosphorus Magnesium Total Bilirubin AST ALT Alkaline Phosphatase Creatine Kinase CK-MB (CK-2) Troponin I B-Natriuretic Peptide Total Protein Albumin TSH Free T3 Urine Color Urine Appearance Urine pH Ur Specific [place] Urine Protein Urine Glucose (UA) Urine Ketones Urine Blood Urine Nitrite Urine Bilirubin Urine Urobilinogen Ur Leukocyte Esterase Urine RBC Urine WBC Ur Epithelial Cells Urine Bacteria Hyaline Casts Urine Mucus Urine Yeast Stool Occult Blood Random Vancomycin Opiates Screen Methadone Screen Barbiturate Screen Phencyclidine Screen Ur Amphetamines Screen MDMA (Ecstasy) Screen Benzodiazepines Screen Cocaine Screen U Marijuana (THC) Screen Blood Type Antibody Screen Crossmatch Spec Expiration Date 07/05/16 07/06/16 07/07/16 15:53 15:48 05:15 WBC 10.4 H D RBC 3.44 L Hgb 9.3 L Hct 29.4 L MCV 85.6 MCHC 31.8 L RDW 21.8 H Plt Count 154 D MPV 8.8 Neutrophils % 90.6 H Lymphocytes % 5.9 L D Monocytes % 3.3 L D Eosinophils % 0.0 D Basophils % 0.2 Band Neutrophils Metamyelocytes Myelocytes Nucleated RBCs Differential Comment Hypersegmented Neuts Toxic Granulation Dohle Bodies [place] Platelet Estimate Platelet Comment RBC Morphology Polychromasia Hypochromic-Microcytic Poikilocytosis Basophilic Stippling Anisocytosis Microcytosis Macrocytosis Spherocytes Siderocytes Sickle Cells Target Cells Tear Drop Cells Ovalocytes Stomatocytes Helmet Cells [place] Bodies [place] Cells Acanthocytes (Spur) Rouleaux Fragmented RBCs Schistocytes Morphology Comment INR PTT (Actin FS) D-Dimer Puncture Site ABG pH ABG pCO2 at Pt Temp ABG pO2 at Pt Temp ABG HCO3 ABG O2 Sat (Measured) ABG O2 Content ABG Base Excess Rafi Test VBG pH POC VBG pCO2 POC VBG pO2 Mixed VBG HCO3 O2 Delivery Device Oxygen Flow Rate Vent Mode Vent Rate Mechanical Rate PEEP Pressure Support Vent Sodium Potassium Chloride Carbon Dioxide Anion Gap BUN Creatinine Creat Clearance w eGFR POC Glucometer 138.71564 201.76311 Random Glucose Lactic Acid Calcium Phosphorus Magnesium Total Bilirubin AST ALT Alkaline Phosphatase Creatine Kinase CK-MB (CK-2) Troponin I B-Natriuretic Peptide Total Protein Albumin TSH Free T3 Urine Color Urine Appearance Urine pH Ur Specific [place] Urine Protein Urine Glucose (UA) Urine Ketones Urine Blood Urine Nitrite Urine Bilirubin Urine Urobilinogen Ur Leukocyte Esterase Urine RBC Urine WBC Ur Epithelial Cells Urine Bacteria Hyaline Casts Urine Mucus Urine Yeast Stool Occult Blood Random Vancomycin Opiates Screen Methadone Screen Barbiturate Screen Phencyclidine Screen Ur Amphetamines Screen MDMA (Ecstasy) Screen Benzodiazepines Screen Cocaine Screen U Marijuana (THC) Screen Blood Type Antibody Screen Crossmatch Spec Expiration Date 07/07/16 07/07/16 07/08/16 05:15 20:55 05:15 WBC 11.1 H RBC 3.32 L Hgb 9.2 L Hct 28.8 L MCV 86.8 MCHC 31.8 L RDW 22.0 H Plt Count 159 MPV 8.5 Neutrophils % 93.3 H Lymphocytes % 4.3 L D Monocytes % 2.2 L Eosinophils % 0.0 Basophils % 0.2 Band Neutrophils Metamyelocytes Myelocytes Nucleated RBCs Differential Comment Hypersegmented Neuts Toxic Granulation [place]ohle Bodies [place] Platelet Estimate Decreased Platelet Comment No clumping noted RBC Morphology Polychromasia Few Hypochromic-Microcytic 1+ Poikilocytosis Basophilic Stippling Few Anisocytosis 2+ Microcytosis 1+ Macrocytosis Spherocytes Siderocytes Sickle Cells Target Cells Tear Drop Cells Ovalocytes Stomatocytes Helmet Cells [place] Bodies [place] Cells Acanthocytes (Spur) Rouleaux Fragmented RBCs Schistocytes Morphology Comment INR PTT (Actin FS) D-Dimer Puncture Site ABG pH ABG pCO2 at Pt Temp ABG pO2 at Pt Temp ABG HCO3 ABG O2 Sat (Measured) ABG O2 Content ABG Base Excess Rafi Test VBG pH POC VBG pCO2 POC VBG pO2 Mixed VBG HCO3 O2 Delivery Device Oxygen Flow Rate Vent Mode Vent Rate Mechanical Rate PEEP Pressure Support Vent Sodium 139 Potassium 3.7 Chloride 95 L Carbon Dioxide 36 H Anion Gap 8 BUN 13 D Creatinine 0.2 L D Creat Clearance w eGFR POC Glucometer 315.44351 Random Glucose 150 H D Lactic Acid Calcium 8.4 L Phosphorus Magnesium Total Bilirubin AST ALT Alkaline Phosphatase Creatine Kinase CK-MB (CK-2) Troponin I B-Natriuretic Peptide Total Protein Albumin TSH Free T3 Urine Color Urine Appearance Urine pH Ur Specific [place] Urine Protein Urine Glucose (UA) Urine Ketones Urine Blood Urine Nitrite Urine Bilirubin Urine Urobilinogen Ur Leukocyte Esterase Urine RBC Urine WBC Ur Epithelial Cells Urine Bacteria Hyaline Casts Urine Mucus Urine Yeast Stool Occult Blood Random Vancomycin Opiates Screen Methadone Screen Barbiturate Screen Phencyclidine Screen Ur Amphetamines Screen MDMA (Ecstasy) Screen Benzodiazepines Screen Cocaine Screen U Marijuana (THC) Screen Blood Type Antibody Screen Crossmatch Spec Expiration Date 07/08/16 07/08/16 07/08/16 05:15 05:32 12:14 WBC RBC Hgb Hct MCV MCHC RDW Plt Count MPV Neutrophils % Lymphocytes % Monocytes % Eosinophils % Basophils % Band Neutrophils Metamyelocytes Myelocytes Nucleated RBCs Differential Comment Hypersegmented Neuts Toxic Granulation Dohle Bodies [place] Platelet Estimate Platelet Comment RBC Morphology Polychromasia Hypochromic-Microcytic Poikilocytosis Basophilic Stippling Anisocytosis Microcytosis Macrocytosis Spherocytes Siderocytes Sickle Cells Target Cells Tear Drop Cells Ovalocytes Stomatocytes Helmet Cells [place] Bodies [place] E Cells Acanthocytes (Spur) Rouleaux Fragmented RBCs Schistocytes Morphology Comment INR PTT (Actin FS) D-Dimer Puncture Site ABG pH ABG pCO2 at Pt Temp ABG pO2 at Pt Temp ABG HCO3 ABG O2 Sat (Measured) ABG O2 Content ABG Base Excess Rafi Test VBG pH POC VBG pCO2 POC VBG pO2 Mixed VBG HCO3 O2 Delivery Device Oxygen Flow Rate Vent Mode Vent Rate Mechanical Rate PEEP Pressure Support Vent Sodium 139 Potassium 4.1 Chloride 94 L Carbon Dioxide 36 H Anion Gap 9 BUN 12 Creatinine 0.4 L D Creat Clearance w eGFR POC Glucometer 249.77340 282.65938 Random Glucose 207 H D Lactic Acid Calcium 8.3 L Phosphorus Magnesium Total Bilirubin AST ALT Alkaline Phosphatase Creatine Kinase CK-MB (CK-2) Troponin I B-Natriuretic Peptide Total Protein Albumin TSH Free T3 Urine Color Urine Appearance Urine pH Ur Specific [place] Urine Protein Urine Glucose (UA) Urine Ketones Urine Blood Urine Nitrite Urine Bilirubin Urine Urobilinogen Ur Leukocyte Esterase Urine RBC Urine WBC Ur Epithelial Cells Urine Bacteria Hyaline Casts Urine Mucus Urine Yeast Stool Occult Blood Random Vancomycin Opiates Screen Methadone Screen Barbiturate Screen Phencyclidine Screen Ur Amphetamines Screen MDMA (Ecstasy) Screen Benzodiazepines Screen Cocaine Screen U Marijuana (THC) Screen Blood Type Antibody Screen Crossmatch Spec Expiration Date 07/08/16 07/08/16 07/09/16 16:58 21:22 06:18 WBC RBC Hgb Hct MCV MCHC RDW Plt Count MPV Neutrophils % Lymphocytes % Monocytes % Eosinophils % Basophils % Band Neutrophils Metamyelocytes Myelocytes Nucleated RBCs Differential Comment Hypersegmented Neuts Toxic Granulation Dohle Bodies [place] Platelet Estimate Platelet Comment RBC Morphology Polychromasia Hypochromic-Microcytic Poikilocytosis Basophilic Stippling Anisocytosis Microcytosis Macrocytosis Spherocytes Siderocytes Sickle Cells Target Cells Tear Drop Cells Ovalocytes Stomatocytes Helmet Cells [place] Bodies [place] Cells Acanthocytes (Sp[place]) Rouleaux Fragmented RBCs Schistocytes Morphology Comment INR PTT (Actin FS) D-Dimer Puncture Site ABG pH ABG pCO2 at Pt Temp ABG pO2 at Pt Temp ABG HCO3 ABG O2 Sat (Measured) ABG O2 Content ABG Base Excess Rafi Test VBG pH POC VBG pCO2 POC VBG pO2 Mixed VBG HCO3 O2 Delivery Device Oxygen Flow Rate Vent Mode Vent Rate Mechanical Rate PEEP Pressure Support Vent Sodium Potassium Chloride Carbon Dioxide Anion Gap BUN Creatinine Creat Clearance w eGFR POC Glucometer 199 266 278 Random Glucose Lactic Acid Calcium Phosphorus Magnesium Total Bilirubin AST ALT Alkaline Phosphatase Creatine Kinase CK-MB (CK-2) Troponin I B-Natriuretic Peptide Total Protein Albumin TSH Free T3 Urine Color Urine Appearance Urine pH Ur Specific [place] Urine Protein Urine Glucose (UA) Urine Ketones Urine Blood Urine Nitrite Urine Bilirubin Urine Urobilinogen Ur Leukocyte Esterase Urine RBC Urine WBC Ur Epithelial Cells Urine Bacteria Hyaline Casts Urine Mucus Urine Yeast Stool Occult Blood Random Vancomycin Opiates Screen Methadone Screen Barbiturate Screen Phencyclidine Screen Ur Amphetamines Screen MDMA (Ecstasy) Screen Benzodiazepines Screen Cocaine Screen U Marijuana (THC) Screen Blood Type Antibody Screen Crossmatch Spec Expiration Date 07/09/16 07/09/16 07/09/16 11:58 17:15 21:03 WBC RBC Hgb Hct MCV MCHC RDW Plt Count MPV Neutrophils % Lymphocytes % Monocytes % Eosinophils % Basophils % Band Neutrophils Metamyelocytes Myelocytes Nucleated RBCs Differential Comment Hypersegmented Neuts Toxic Granulation Dohle Bodies [place] Platelet Estimate Platelet Comment RBC Morphology Polychromasia Hypochromic-Microcytic Poikilocytosis Basophilic Stippling Anisocytosis Microcytosis Macrocytosis Spherocytes Siderocytes Sickle Cells Target Cells Tear Drop Cells Ovalocytes Stomatocytes Helmet Cells [place] Bodies [place] Cells Acanthocytes (Spur) Rouleaux Fragmented RBCs Schistocytes Morphology Comment INR PTT (Actin FS) D-Dimer Puncture Site ABG pH ABG pCO2 at Pt Temp ABG pO2 at Pt Temp ABG HCO3 ABG O2 Sat (Measured) ABG O2 Content ABG Base Excess Rafi Test VBG pH POC VBG pCO2 POC VBG pO2 Mixed VBG HCO3 O2 Delivery Device Oxygen Flow Rate Vent Mode Vent Rate Mechanical Rate PEEP Pressure Support Vent Sodium Potassium Chloride Carbon Dioxide Anion Gap BUN Creatinine Creat Clearance w eGFR POC Glucometer 241 236 227 Random Glucose Lactic Acid Calcium Phosphorus Magnesium Total Bilirubin AST ALT Alkaline Phosphatase Creatine Kinase CK-MB (CK-2) Troponin I B-Natriuretic Peptide Total Protein Albumin TSH Free T3 Urine Color Urine Appearance Urine pH Ur Specific [place] Urine Protein Urine Glucose (UA) Urine Ketones Urine Blood Urine Nitrite Urine Bilirubin Urine Urobilinogen Ur Leukocyte Esterase Urine RBC Urine WBC Ur Epithelial Cells Urine Bacteria Hyaline Casts Urine Mucus Urine Yeast Stool Occult Blood Random Vancomycin Opiates Screen Methadone Screen Barbiturate Screen Phencyclidine Screen Ur Amphetamines Screen MDMA (Ecstasy) Screen Benzodiazepines Screen Cocaine Screen U Marijuana (THC) Screen Blood Type Antibody Screen Crossmatch Spec Expiration Date 07/10/16 05:59 WBC RBC Hgb Hct MCV MCHC RDW Plt Count MPV Neutrophils % Lymphocytes % Monocytes % Eosinophils % Basophils % Band Neutrophils Metamyelocytes Myelocytes Nucleated RBCs Differential Comment Hypersegmented Neuts Toxic Granulation Dohle Bodies [place] Platelet Estimate Platelet Comment RBC Morphology Polychromasia Hypochromic-Microcytic Poikilocytosis Basophilic Stippling Anisocytosis Microcytosis Macrocytosis Spherocytes Siderocytes Sickle Cells Target Cells Tear Drop Cells Ovalocytes Stomatocytes Helmet Cells [place] Bodies [place] E Cells Acanthocytes (Sp[place]) Rouleaux Fragmented RBCs Schistocytes Morphology Comment INR PTT (Actin FS) D-Dimer Puncture Site ABG pH ABG pCO2 at Pt Temp ABG pO2 at Pt Temp ABG HCO3 ABG O2 Sat (Measured) ABG O2 Content ABG Base Excess Rafi Test VBG pH POC VBG pCO2 POC VBG pO2 Mixed VBG HCO3 O2 Delivery Device Oxygen Flow Rate Vent Mode Vent Rate Mechanical Rate PEEP Pressure Support Vent Sodium Potassium Chloride Carbon Dioxide Anion Gap BUN Creatinine Creat Clearance w eGFR POC Glucometer 205 Random Glucose Lactic Acid Calcium Phosphorus Magnesium Total Bilirubin AST ALT Alkaline Phosphatase Creatine Kinase CK-MB (CK-2) Troponin I B-Natriuretic Peptide Total Protein Albumin TSH Free T3 Urine Color Urine Appearance Urine pH Ur Specific [place] Urine Protein Urine Glucose (UA) Urine Ketones Urine Blood Urine Nitrite Urine Bilirubin Urine Urobilinogen Ur Leukocyte Esterase Urine RBC Urine WBC Ur Epithelial Cells Urine Bacteria Hyaline Casts Urine Mucus Urine Yeast Stool Occult Blood Random Vancomycin Opiates Screen Methadone Screen Barbiturate Screen Phencyclidine Screen Ur Amphetamines Screen MDMA (Ecstasy) Screen Benzodiazepines Screen Cocaine Screen U Marijuana (THC) Screen Blood Type Antibody Screen Crossmatch Spec Expiration Date Assessment/Plan Recurrent acute respiratory failure requiring re-intubation, refused trach first intubation now extubated on telemetry Bilateral PNA Anemia PSVT and PAF CAD s/p NSTEMI Mild COPD REC: Remains extubated Off ASA now, due to anemia Cont. Cardizem 90mg po q6h for PSVT suppression High risk for anticoagulation (for PAF) due to traumatic subdural hematoma and anemia with guaiac + stool. Agree with Lasix- b/l effusions on CXR
[2016-07-10] MEDS: ACETAMINOPHEN 325 MG TABLET (FP) PO PRN ×3 (11:11→21:24)
[2016-07-10] MEDS: clonazePAM 0.5 MG TABLET PO PRN (11:11)
--- NOTE | 2016-07-10 13:59 | PN ---
Progress Note (short form) - Note Progress Note: Awake on 3 L NC O2. Appears weak. No documented acute events overnight. Intake & Output 07/07/16 07/08/16 07/09/16 07/10/16 23:59 23:59 23:59 23:59 Intake Total 730 890 270 50 Output Total 2100 Balance -1370 890 270 50 Weight 109 lb 111 lb Last Vital Signs Temp Pulse Resp BP Pulse Ox 98 F 86 20 112/49 98 07/10/16 08:25 07/10/16 08:25 07/10/16 08:25 07/10/16 08:25 07/10/16 11:19 Active Medications Acetaminophen (Tylenol -) 650 mg PO Q4H PRN PRN Reason: FEVER OR PAIN Last Admin: 07/10/16 11:11 Dose: 650 mg Acetaminophen (Tylenol -) 325 mg PO Q6H PRN PRN Reason: PAIN Albuterol/Ipratropium (Duoneb -) 1 amp NEB QIDR [facility] Last Admin: 07/10/16 11:20 Dose: 1 amp Atorvastatin Calcium (Lipitor -) 80 mg PO HS [facility] Last Admin: 07/09/16 21:02 Dose: 80 mg Budesonide/Formoterol Fumarate (Symbicort 160/4.5mcg -) 2 puff IH BID [facility] Last Admin: 07/10/16 09:28 Dose: 2 puff Clonazepam (Klonopin -) 0.5 mg PO Q12H PRN PRN Reason: ANXIETY Last Admin: 07/10/16 11:11 Dose: 0.5 mg Diltiazem HCl (Cardizem -) 90 mg PO Q6HPO [facility] Last Admin: 07/10/16 05:57 Dose: 90 mg Diltiazem HCl (Cardizem Injection -) 10 mg IVPUSH Q4H PRN PRN Reason: TACHYCARDIA Furosemide (Lasix -) 40 mg PO DAILY [facility] Last Admin: 07/10/16 09:28 Dose: 40 mg Hydralazine HCl (Apresoline -) 10 mg PO TID [facility] Last Admin: 07/10/16 05:57 Dose: 10 mg Insulin Aspart (Novolog Vial Sliding Scale -) 1 vial SQ ACHS [facility] PRN Reason: Protocol Last Admin: 07/10/16 12:04 Dose: 6 units Insulin Detemir (Levemir Vial) 5 units SQ HS [facility] Last Admin: 07/09/16 21:10 Dose: 5 units Levofloxacin (Levaquin -) 750 mg PO DAILY [facility] Last Admin: 07/10/16 09:28 Dose: 750 mg Morphine Sulfate (Morphine Injection -) 2 mg IVPUSH Q3H PRN PRN Reason: PAIN Nitroglycerin (Nitrostat -) 0.4 mg SL Q5M PRN PRN Reason: FOR CHEST PAIN Oxycodone HCl (Roxicodone -) 5 mg PO Q6H PRN PRN Reason: PAIN Pantoprazole Sodium (Protonix -) 40 mg PO BID [facility] Last Admin: 07/10/16 09:28 Dose: 40 mg Prednisone (Deltasone -) 20 mg PO BID [facility] Last Admin: 07/10/16 09:28 Dose: 20 mg Gen: Mildly tachypneic at rest Heart: RRR Lung: scattered rhonchi Abd: soft Ext: trace edema Laboratory Results - last 24 hr 07/09/16 07/09/16 07/10/16 17:15 21:03 05:59 POC Glucometer 236 227 205 07/10/16 11:13 POC Glucometer 225 ASSESSMENT AND PLAN: Acute on Chronic Hypoxic and Hypercapneic Respiratory Failure Influenza A s/p treatment Pneumonia - ?Aspiration Acute COPD Exacerbation CAD +Troponins/Acute NSTEMI h/o Breast Ca 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
--- NOTE | 2016-07-10 14:24 | PN ---
Progress Note, Physician History of Present Illness: no complaints - Current Medication List Current Medications: Active Medications Acetaminophen (Tylenol -) 650 mg PO Q4H PRN PRN Reason: FEVER OR PAIN Last Admin: 07/10/16 11:11 Dose: 650 mg Acetaminophen (Tylenol -) 325 mg PO Q6H PRN PRN Reason: PAIN Albuterol/Ipratropium (Duoneb -) 1 amp NEB QIDR [facility] Last Admin: 07/10/16 11:20 Dose: 1 amp Atorvastatin Calcium (Lipitor -) 80 mg PO HS [facility] Last Admin: 07/09/16 21:02 Dose: 80 mg Budesonide/Formoterol Fumarate (Symbicort 160/4.5mcg -) 2 puff IH BID [facility] Last Admin: 07/10/16 09:28 Dose: 2 puff Clonazepam (Klonopin -) 0.5 mg PO Q12H PRN PRN Reason: ANXIETY Last Admin: 07/10/16 11:11 Dose: 0.5 mg Diltiazem HCl (Cardizem -) 90 mg PO Q6HPO [facility] Last Admin: 07/10/16 13:00 Dose: 90 mg Diltiazem HCl (Cardizem Injection -) 10 mg IVPUSH Q4H PRN PRN Reason: TACHYCARDIA Furosemide (Lasix -) 40 mg PO DAILY [facility] Last Admin: 07/10/16 09:28 Dose: 40 mg Hydralazine HCl (Apresoline -) 10 mg PO TID [facility] Last Admin: 07/10/16 14:21 Dose: 10 mg Insulin Aspart (Novolog Vial Sliding Scale -) 1 vial SQ [facility] PRN Reason: Protocol Last Admin: 07/10/16 12:04 Dose: 6 units Insulin Detemir (Levemir Vial) 5 units SQ [facility] Last Admin: 07/09/16 21:10 Dose: 5 units Levofloxacin (Levaquin -) 750 mg PO DAILY [facility] Last Admin: 07/10/16 09:28 Dose: 750 mg Morphine Sulfate (Morphine Injection -) 2 mg IVPUSH Q3H PRN PRN Reason: PAIN Nitroglycerin (Nitrostat -) 0.4 mg SL Q5M PRN PRN Reason: FOR CHEST PAIN Oxycodone HCl (Roxicodone -) 5 mg PO Q6H PRN PRN Reason: PAIN Pantoprazole Sodium (Protonix -) 40 mg PO BID [facility] Last Admin: 07/10/16 09:28 Dose: 40 mg Prednisone (Deltasone -) 20 mg PO BID [facility] Last Admin: 07/10/16 09:28 Dose: 20 mg - Objective Vital Signs: Vital Signs Temperature 98.2 F 07/10/16 14:15 Pulse Rate 97 H 07/10/16 14:15 Respiratory Rate 22 07/10/16 14:15 Blood Pressure 113/55 07/10/16 14:15 O2 Sat by Pulse Oximetry (%) 98 07/10/16 11:19 Constitutional: Yes: No Distress HENT: Yes: Atraumatic Neck: Yes: Supple Cardiovascular: Yes: Regular Rate and Rhythm Respiratory: Yes: Rhonchi Gastrointestinal: Yes: Normal Bowel Sounds Extremities: Yes: WNL Neurological: Yes: Alert, Oriented Labs: CBC, BMP 07/08/16 05:15 07/08/16 05:15 INR, PTT INR 1.02 (0.82-1.09) 06/09/16 05:05 Problem List - Problems (1) Respiratory failure Assessment/Plan: on bipap/nc prn apiration pna on abx..po on steroids..taper Code(s): J96.90 - RESPIRATORY FAILURE, UNSP, UNSP W HYPOXIA OR HYPERCAPNIA Qualifiers: Chronicity: acute Respiratory failure complication: hypoxia and hypercapnia Qualified Code(s): J96.01 - Acute respiratory failure with hypoxia (2) Chronic respiratory failure with hypoxia Assessment/Plan: duo nebs steroids Code(s): J96.11 - CHRONIC RESPIRATORY FAILURE WITH HYPOXIA (3) CAD (coronary artery disease) Assessment/Plan: on meds follow up labs continue current meds Code(s): I25.10 - ATHSCL HEART DISEASE OF [place] CORONARY ARTERY W/O ANG PCTRS (4) COPD (chronic obstructive pulmonary disease) Assessment/Plan: on meds stable steroids duo nebs Code(s): J44.9 - CHRONIC OBSTRUCTIVE PULMONARY DISEASE, UNSPECIFIED (5) Chronic diastolic CHF (congestive heart failure) Assessment/Plan: stable on meds Code(s): I50.32 - CHRONIC DIASTOLIC (CONGESTIVE) HEART FAILURE (6) HLD (hyperlipidemia) Assessment/Plan: on meds Code(s): E78.5 - HYPERLIPIDEMIA, UNSPECIFIED Qualifiers: Hyperlipidemia type: unspecified Qualified Code(s): E78.5 - Hyperlipidemia, unspecified (7) HTN (hypertension) Assessment/Plan: on meds stable Code(s): I10 - ESSENTIAL (PRIMARY) HYPERTENSION Qualifiers: Hypertension type: essential hypertension Qualified Code(s): I10 - Essential (primary) hypertension (8) History of cigarette smoking Code(s): Z87.891 - PERSONAL HISTORY OF NICOTINE DEPENDENCE (9) Influenza Code(s): J11.1 - FLU DUE TO UNIDENTIFIED INFLUENZA VIRUS W OTH RESP MANIFEST (10) Acute on chronic respiratory failure with hypoxia and hypercapnia Code(s): J96.21 - ACUTE AND CHRONIC RESPIRATORY FAILURE WITH HYPOXIA J96.22 - ACUTE AND CHRONIC RESPIRATORY FAILURE WITH HYPERCAPNIA (11) History of PSVT (paroxysmal supraventricular tachycardia) Code(s): Z86.79 - PERSONAL HISTORY OF OTHER DISEASES OF THE CIRCULATORY SYSTEM (12) Anemia Code(s): D64.9 - ANEMIA, UNSPECIFIED (13) NSTEMI (non-ST elevated myocardial infarction) Code(s): I21.4 - NON-ST ELEVATION (NSTEMI) MYOCARDIAL INFARCTION (14) GI (gastrointestinal bleed) Code(s): K92.2 - GASTROINTESTINAL HEMORRHAGE, UNSPECIFIED
[2016-07-10] MEDS: oxyCODONE HCL 5 MG TABLET PO PRN ×2 (14:29→21:23)
--- NOTE | 2016-07-10 17:34 | PN ---
Progress Note, Physician History of Present Illness: stable no new issues - Current Medication List Current Medications: Active Medications Acetaminophen (Tylenol -) 650 mg PO Q4H PRN PRN Reason: FEVER OR PAIN Last Admin: 07/10/16 11:11 Dose: 650 mg Acetaminophen (Tylenol -) 325 mg PO Q6H PRN PRN Reason: PAIN Last Admin: 07/10/16 14:29 Dose: 325 mg Albuterol/Ipratropium (Duoneb -) 1 amp NEB QIDR [facility] Last Admin: 07/10/16 17:25 Dose: 1 amp Atorvastatin Calcium (Lipitor -) 80 mg PO HS [facility] Last Admin: 07/09/16 21:02 Dose: 80 mg Budesonide/Formoterol Fumarate (Symbicort 160/4.5mcg -) 2 puff IH BID [facility] Last Admin: 07/10/16 09:28 Dose: 2 puff Clonazepam (Klonopin -) 0.5 mg PO Q12H PRN PRN Reason: ANXIETY Last Admin: 07/10/16 11:11 Dose: 0.5 mg Diltiazem HCl (Cardizem -) 90 mg PO Q6HPO [facility] Last Admin: 07/10/16 17:25 Dose: 90 mg Diltiazem HCl (Cardizem Injection -) 10 mg IVPUSH Q4H PRN PRN Reason: TACHYCARDIA Furosemide (Lasix -) 40 mg PO DAILY [facility] Last Admin: 07/10/16 09:28 Dose: 40 mg Hydralazine HCl (Apresoline -) 10 mg PO TID [facility] Last Admin: 07/10/16 14:21 Dose: 10 mg Insulin Aspart (Novolog Vial Sliding Scale -) 1 vial SQ [facility] PRN Reason: Protocol Last Admin: 07/10/16 17:25 Dose: 10 units Insulin Detemir (Levemir Vial) 5 units SQ [facility] Last Admin: 07/09/16 21:10 Dose: 5 units Levofloxacin (Levaquin -) 750 mg PO DAILY [facility] Last Admin: 07/10/16 09:28 Dose: 750 mg Morphine Sulfate (Morphine Injection -) 2 mg IVPUSH Q3H PRN PRN Reason: PAIN Nitroglycerin (Nitrostat -) 0.4 mg SL Q5M PRN PRN Reason: FOR CHEST PAIN Oxycodone HCl (Roxicodone -) 5 mg PO Q6H PRN PRN Reason: PAIN Last Admin: 07/10/16 14:29 Dose: 5 mg Pantoprazole Sodium (Protonix -) 40 mg PO BID [facility] Last Admin: 07/10/16 09:28 Dose: 40 mg Prednisone (Deltasone -) 20 mg PO BID [facility] Last Admin: 07/10/16 09:28 Dose: 20 mg - Objective Vital Signs: Vital Signs Temperature 98.2 F 07/10/16 14:15 Pulse Rate 97 H 07/10/16 14:15 Respiratory Rate 22 07/10/16 14:15 Blood Pressure 113/55 07/10/16 14:15 O2 Sat by Pulse Oximetry (%) 98 07/10/16 17:24 Constitutional: Yes: No Distress, Calm Cardiovascular: Yes: Regular Rate and Rhythm Respiratory: Yes: Regular, Rhonchi, Other Gastrointestinal: Yes: Normal Bowel Sounds, Soft Musculoskeletal: Yes: WNL Extremities: Yes: WNL Neurological: Yes: Alert, Oriented Psychiatric: Yes: Alert Labs: CBC, BMP 07/08/16 05:15 07/08/16 05:15 INR, PTT INR 1.02 (0.82-1.09) 06/09/16 05:05 Assessment/Plan Problem List - Problems (1) Aortic stenosis Code(s): I35.0 - NONRHEUMATIC AORTIC (VALVE) STENOSIS (2) History of PSVT (paroxysmal supraventricular tachycardia) Code(s): Z86.79 - PERSONAL HISTORY OF OTHER DISEASES OF THE CIRCULATORY SYSTEM (3) NSTEMI (non-ST elevated myocardial infarction) Code(s): I21.4 - NON-ST ELEVATION (NSTEMI) MYOCARDIAL INFARCTION (4) Respiratory failure Code(s): J96.90 - RESPIRATORY FAILURE, UNSP, UNSP W HYPOXIA OR HYPERCAPNIA Qualifiers: Chronicity: acute Respiratory failure complication: hypoxia and hypercapnia Qualified Code(s): J96.01 - Acute respiratory failure with hypoxia (5) Pulmonary hypertension Code(s): I27.2 - OTHER SECONDARY PULMONARY HYPERTENSION (6) Pulmonary nodules Code(s): R91.8 - OTHER NONSPECIFIC ABNORMAL FINDING OF LUNG FIELD (7) COPD (chronic obstructive pulmonary disease) Code(s): J44.9 - CHRONIC OBSTRUCTIVE PULMONARY DISEASE, UNSPECIFIED (8) History of cigarette smoking Code(s): Z87.891 - PERSONAL HISTORY OF NICOTINE DEPENDENCE (9) Acute on chronic respiratory failure with hypoxia and hypercapnia Code(s): J96.21 - ACUTE AND CHRONIC RESPIRATORY FAILURE WITH HYPOXIA J96.22 - ACUTE AND CHRONIC RESPIRATORY FAILURE WITH HYPERCAPNIAEPENDENCE +Troponins/Acute NSTEMI Lactic Acidosis h/o Breast Ca 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
[2016-07-10] MEDS: INSULIN DETEMIR 100 UNITS/ML MDV SQ SCH (21:24)
[2016-07-10] MEDS: ATORVASTATIN CA 80 MG TABLET (FP) PO SCH (21:24)
[2016-07-11] MEDS: dilTIAZem HCL 30 MG TABLET (FP) PO SCH ×4 (00:01→17:17)
[2016-07-11] MEDS: ACETAMINOPHEN 325 MG TABLET (FP) PO PRN ×3 (06:11→20:02)
[2016-07-11] MEDS: hydrALAZINE HCL 10 MG TABLET PO SCH ×3 (06:11→21:57)
[2016-07-11] MEDS: oxyCODONE HCL 5 MG TABLET PO PRN ×3 (06:11→20:02)
[2016-07-11] MEDS: INSULIN SLIDING SCALE (NOVOLOG) 1 VIAL SQ SCH ×4 (06:11→22:09)
[2016-07-11] MEDS: ALBUTEROL SO4 2.5/IPRATROPIUM 0.5 INH SOL 3 ML VIAL.NEB. NEB SCH ×2 (06:48→11:15)
[2016-07-11] MEDS: LEVOFLOXACIN 250 MG TABLET (FP) PO SCH (10:37)
[2016-07-11] MEDS: FUROSEMIDE 40 MG TABLET (FP) PO SCH (10:38)
[2016-07-11] MEDS: predniSONE 20 MG TABLET (UD) PO SCH (10:38)
[2016-07-11] MEDS: PANTOPRAZOLE 40 MG TABLET (FP) PO SCH ×2 (10:38→21:57)
[2016-07-11] MEDS: BUDESONIDE/FORMETEROL FUMARATE 160/4.5 mcg INHALER IH SCH ×2 (10:38→22:02)
[2016-07-11] MEDS: clonazePAM 0.5 MG TABLET PO PRN ×2 (10:40→21:56)
--- NOTE | 2016-07-11 11:36 | PN ---
Progress Note, Physician History of Present Illness: seen and examined today. awake but very weak/frail appearing. no reported overnight events. - Current Medication List Current Medications: Active Medications Acetaminophen (Tylenol -) 650 mg PO Q4H PRN PRN Reason: FEVER OR PAIN Last Admin: 07/10/16 11:11 Dose: 650 mg Acetaminophen (Tylenol -) 325 mg PO Q6H PRN PRN Reason: PAIN Last Admin: 07/11/16 06:11 Dose: 325 mg Albuterol/Ipratropium (Duoneb -) 1 amp NEB QIDR [facility] Last Admin: 07/11/16 06:48 Dose: 1 amp Atorvastatin Calcium (Lipitor -) 80 mg PO HS [facility] Last Admin: 07/10/16 21:24 Dose: 80 mg Budesonide/Formoterol Fumarate (Symbicort 160/4.5mcg -) 2 puff IH BID [facility] Last Admin: 07/11/16 10:38 Dose: 2 puff Clonazepam (Klonopin -) 0.5 mg PO Q12H PRN PRN Reason: ANXIETY Last Admin: 07/11/16 10:40 Dose: 0.5 mg Diltiazem HCl (Cardizem -) 90 mg PO Q6HPO [facility] Last Admin: 07/11/16 06:10 Dose: 90 mg Diltiazem HCl (Cardizem Injection -) 10 mg IVPUSH Q4H PRN PRN Reason: TACHYCARDIA Furosemide (Lasix -) 40 mg PO DAILY [facility] Last Admin: 07/11/16 10:38 Dose: 40 mg Hydralazine HCl (Apresoline -) 10 mg PO TID [facility] Last Admin: 07/11/16 06:11 Dose: 10 mg Insulin Aspart (Novolog Vial Sliding Scale -) 1 vial SQ [facility]S [facility] PRN Reason: Protocol Last Admin: 07/11/16 06:11 Dose: 4 units Insulin Detemir (Levemir Vial) 5 units SQ [facility] Last Admin: 07/10/16 21:24 Dose: 5 units Levofloxacin (Levaquin -) 750 mg PO DAILY [facility] Last Admin: 07/11/16 10:37 Dose: 750 mg Morphine Sulfate (Morphine Injection -) 2 mg IVPUSH Q3H PRN PRN Reason: PAIN Nitroglycerin (Nitrostat -) 0.4 mg SL Q5M PRN PRN Reason: FOR CHEST PAIN Oxycodone HCl (Roxicodone -) 5 mg PO Q6H PRN PRN Reason: PAIN Last Admin: 07/11/16 06:11 Dose: 5 mg Pantoprazole Sodium (Protonix -) 40 mg PO BID [facility] Last Admin: 07/11/16 10:38 Dose: 40 mg Prednisone (Deltasone -) 20 mg PO BID [facility] Last Admin: 07/11/16 10:38 Dose: 20 mg - Objective Vital Signs: Vital Signs Temperature 98.1 F 07/11/16 08:16 Pulse Rate 86 07/11/16 08:16 Respiratory Rate 20 07/11/16 08:16 Blood Pressure 112/62 07/11/16 08:16 O2 Sat by Pulse Oximetry (%) 89 L 07/11/16 08:00 Constitutional: Yes: No Distress, Anxious, Thin Eyes: Yes: Conjunctiva Clear, EOM Intact, PERRL HENT: Yes: Atraumatic, Normocephalic Neck: Yes: Supple, Trachea Midline Cardiovascular: Yes: Pulse Irregular, Murmur, S1, S2. No: Bradycardia, Tachycardia, Bruit, JVD, Gallop, Rub, S3, S4, Varicosities Respiratory: Yes: Regular, Diminished, On Venti-Mask, Rhonchi, SOB. No: Rales, Wheezes Gastrointestinal: Yes: Normal Bowel Sounds, Soft. No: Distention, Tenderness Musculoskeletal: Yes: Muscle Weakness Edema: Yes Edema: LLE: Trace, RLE: Trace Peripheral Pulses WNL: Yes Peripheral Pulses: Left Doralis Pedis: 2+, Right Dorsalis Pedis: 2+ Integumentary: Yes: WNL Neurological: Yes: Oriented Psychiatric: Yes: Other (tremulous) Labs: CBC, BMP 07/08/16 05:15 07/08/16 05:15 INR, PTT INR 1.02 (0.82-1.09) 06/09/16 05:05 - ....Imaging Chest X-ray: Report Reviewed, Image Reviewed EKG: Report Reviewed, Image Reviewed Other: Report Reviewed, Image Reviewed (tele-nsr, pvcs, sinus tach, psvt) Assessment/Plan Recurrent acute respiratory failure requiring re-intubation, refused trach first intubation now extubated on telemetry Bilateral PNA Anemia PSVT and PAF CAD s/p NSTEMI Mild COPD REC: Frail/weak appearing, high risk for re-intubation PSVT adequately controlled, cont Cardizem 90mg po q6h No recurrent afib Holding ASA due to anemia High risk for anticoagulation (for PAF) due to traumatic subdural hematoma and anemia with guaiac + stool. Cont po Lasix
[2016-07-11] MEDS ORDERED: INSULIN (NOVOLOG) ASPART 100 UNITS/ML 10ML VIAL ONE (12:06)
--- NOTE | 2016-07-11 12:15 | PN ---
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 Refused trials of liquid for me. Dysphonic voice. Vague. Limited eye contact. Flat affect. Aspiration precautions.
--- NOTE | 2016-07-11 12:29 | PN ---
Progress Note, Physician History of Present Illness: pulmonary awake,c/o sob,headache - Current Medication List Current Medications: Active Medications Acetaminophen (Tylenol -) 650 mg PO Q4H PRN PRN Reason: FEVER OR PAIN Last Admin: 07/10/16 11:11 Dose: 650 mg Acetaminophen (Tylenol -) 325 mg PO Q6H PRN PRN Reason: PAIN Last Admin: 07/11/16 06:11 Dose: 325 mg Albuterol/Ipratropium (Duoneb -) 1 amp NEB QIDR [facility] Last Admin: 07/11/16 06:48 Dose: 1 amp Atorvastatin Calcium (Lipitor -) 80 mg PO HS [facility] Last Admin: 07/10/16 21:24 Dose: 80 mg Budesonide/Formoterol Fumarate (Symbicort 160/4.5mcg -) 2 puff IH BID [facility] Last Admin: 07/11/16 10:38 Dose: 2 puff Clonazepam (Klonopin -) 0.5 mg PO Q12H PRN PRN Reason: ANXIETY Last Admin: 07/11/16 10:40 Dose: 0.5 mg Diltiazem HCl (Cardizem -) 90 mg PO Q6HPO [facility] Last Admin: 07/11/16 06:10 Dose: 90 mg Diltiazem HCl (Cardizem Injection -) 10 mg IVPUSH Q4H PRN PRN Reason: TACHYCARDIA Furosemide (Lasix -) 40 mg PO DAILY [facility] Last Admin: 07/11/16 10:38 Dose: 40 mg Hydralazine HCl (Apresoline -) 10 mg PO TID [facility] Last Admin: 07/11/16 06:11 Dose: 10 mg Insulin Aspart (Novolog Vial Sliding Scale -) 1 vial SQ ACHS [facility] PRN Reason: Protocol Last Admin: 07/11/16 12:08 Dose: 6 units Insulin Detemir (Levemir Vial) 5 units SQ HS [facility] Last Admin: 07/10/16 21:24 Dose: 5 units Levofloxacin (Levaquin -) 750 mg PO DAILY [facility] Last Admin: 07/11/16 10:37 Dose: 750 mg Morphine Sulfate (Morphine Injection -) 2 mg IVPUSH Q3H PRN PRN Reason: PAIN Nitroglycerin (Nitrostat -) 0.4 mg SL Q5M PRN PRN Reason: FOR CHEST PAIN Oxycodone HCl (Roxicodone -) 5 mg PO Q6H PRN PRN Reason: PAIN Last Admin: 07/11/16 06:11 Dose: 5 mg Pantoprazole Sodium (Protonix -) 40 mg PO BID [facility] Last Admin: 07/11/16 10:38 Dose: 40 mg Prednisone (Deltasone -) 20 mg PO BID [facility] Last Admin: 07/11/16 10:38 Dose: 20 mg - Objective Vital Signs: Vital Signs Temperature 98.1 F 07/11/16 08:16 Pulse Rate 86 07/11/16 08:16 Respiratory Rate 20 07/11/16 08:16 Blood Pressure 112/62 07/11/16 08:16 O2 Sat by Pulse Oximetry (%) 89 L 07/11/16 08:00 Constitutional: Yes: Well Nourished, Calm Eyes: Yes: WNL HENT: Yes: WNL Neck: Yes: WNL Cardiovascular: Yes: Regular Rate and Rhythm, S1, S2 Respiratory: Yes: Diminished (bibasilar rales) Gastrointestinal: Yes: Normal Bowel Sounds, Soft Extremities: Yes: WNL Edema: No Problem List - Problems (1) Aortic stenosis Code(s): I35.0 - NONRHEUMATIC AORTIC (VALVE) STENOSIS (2) History of PSVT (paroxysmal supraventricular tachycardia) Code(s): Z86.79 - PERSONAL HISTORY OF OTHER DISEASES OF THE CIRCULATORY SYSTEM (3) NSTEMI (non-ST elevated myocardial infarction) Code(s): I21.4 - NON-ST ELEVATION (NSTEMI) MYOCARDIAL INFARCTION (4) Respiratory failure Code(s): J96.90 - RESPIRATORY FAILURE, UNSP, UNSP W HYPOXIA OR HYPERCAPNIA Qualifiers: Chronicity: acute Respiratory failure complication: hypoxia and hypercapnia Qualified Code(s): J96.01 - Acute respiratory failure with hypoxia (5) Pulmonary hypertension Code(s): I27.2 - OTHER SECONDARY PULMONARY HYPERTENSION (6) Pulmonary nodules Code(s): R91.8 - OTHER NONSPECIFIC ABNORMAL FINDING OF LUNG FIELD (7) COPD (chronic obstructive pulmonary disease) Code(s): J44.9 - CHRONIC OBSTRUCTIVE PULMONARY DISEASE, UNSPECIFIED (8) History of cigarette smoking Code(s): Z87.891 - PERSONAL HISTORY OF NICOTINE DEPENDENCE (9) Acute on chronic respiratory failure with hypoxia and hypercapnia Code(s): J96.21 - ACUTE AND CHRONIC RESPIRATORY FAILURE WITH HYPOXIA J96.22 - ACUTE AND CHRONIC RESPIRATORY FAILURE WITH HYPERCAPNIA Assessment/Plan ASSESSMENT AND PLAN: Acute on Chronic Hypoxic and Hypercapneic Respiratory Failure improved Influenza A s/p treatment Pneumonia - ?Aspiration Acute COPD Exacerbation CAD +Troponins/Acute NSTEMI h/o Breast Ca 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
--- NOTE | 2016-07-11 18:01 | PN ---
Progress Note, Physician History of Present Illness: stable very anxious refuses lot of things - Current Medication List Current Medications: Active Medications Acetaminophen (Tylenol -) 650 mg PO Q4H PRN PRN Reason: FEVER OR PAIN Last Admin: 07/10/16 11:11 Dose: 650 mg Acetaminophen (Tylenol -) 325 mg PO Q6H PRN PRN Reason: PAIN Last Admin: 07/11/16 13:46 Dose: 325 mg Atorvastatin Calcium (Lipitor -) 80 mg PO HS [facility] Last Admin: 07/10/16 21:24 Dose: 80 mg Budesonide/Formoterol Fumarate (Symbicort 160/4.5mcg -) 2 puff IH BID [facility] Last Admin: 07/11/16 10:38 Dose: 2 puff Clonazepam (Klonopin -) 0.5 mg PO Q12H PRN PRN Reason: ANXIETY Last Admin: 07/11/16 10:40 Dose: 0.5 mg Diltiazem HCl (Cardizem -) 90 mg PO Q6HPO [facility] Last Admin: 07/11/16 17:17 Dose: 90 mg Diltiazem HCl (Cardizem Injection -) 10 mg IVPUSH Q4H PRN PRN Reason: TACHYCARDIA Furosemide (Lasix -) 40 mg PO DAILY [facility] Last Admin: 07/11/16 10:38 Dose: 40 mg Hydralazine HCl (Apresoline -) 10 mg PO TID [facility] Last Admin: 07/11/16 15:30 Dose: Not Given Insulin Aspart (Novolog Vial Sliding Scale -) 1 vial SQ [facility] PRN Reason: Protocol Last Admin: 07/11/16 17:17 Dose: 6 units Insulin Detemir (Levemir Vial) 5 units SQ [facility] Last Admin: 07/10/16 21:24 Dose: 5 units Levofloxacin (Levaquin -) 750 mg PO DAILY [facility] Last Admin: 07/11/16 10:37 Dose: 750 mg Nitroglycerin (Nitrostat -) 0.4 mg SL Q5M PRN PRN Reason: FOR CHEST PAIN Oxycodone HCl (Roxicodone -) 5 mg PO Q6H PRN PRN Reason: PAIN Last Admin: 07/11/16 13:47 Dose: 5 mg Pantoprazole Sodium (Protonix -) 40 mg PO BID [facility] Last Admin: 07/11/16 10:38 Dose: 40 mg Prednisone (Deltasone -) 20 mg PO BID [facility] Last Admin: 07/11/16 10:38 Dose: 20 mg - Objective Vital Signs: Vital Signs Temperature 98.8 F 07/11/16 14:00 Pulse Rate 90 07/11/16 14:00 Respiratory Rate 20 07/11/16 14:00 Blood Pressure 146/67 07/11/16 14:00 O2 Sat by Pulse Oximetry (%) 89 L 07/11/16 08:00 Constitutional: Yes: Anxious, Mild Distress Cardiovascular: Yes: Regular Rate and Rhythm Respiratory: Yes: Regular, On Nasal O2, Poor Air Entry, Other Gastrointestinal: Yes: Normal Bowel Sounds, Soft Musculoskeletal: Yes: WNL Extremities: Yes: WNL Neurological: Yes: Alert, Oriented Psychiatric: Yes: Alert Labs: CBC, BMP 07/08/16 05:15 07/08/16 05:15 INR, PTT INR 1.02 (0.82-1.09) 06/09/16 05:05 Assessment/Plan Problem List - Problems (1) Aortic stenosis Code(s): I35.0 - NONRHEUMATIC AORTIC (VALVE) STENOSIS (2) History of PSVT (paroxysmal supraventricular tachycardia) Code(s): Z86.79 - PERSONAL HISTORY OF OTHER DISEASES OF THE CIRCULATORY SYSTEM (3) NSTEMI (non-ST elevated myocardial infarction) Code(s): I21.4 - NON-ST ELEVATION (NSTEMI) MYOCARDIAL INFARCTION (4) Respiratory failure Code(s): J96.90 - RESPIRATORY FAILURE, UNSP, UNSP W HYPOXIA OR HYPERCAPNIA Qualifiers: Chronicity: acute Respiratory failure complication: hypoxia and hypercapnia Qualified Code(s): J96.01 - Acute respiratory failure with hypoxia (5) Pulmonary hypertension Code(s): I27.2 - OTHER SECONDARY PULMONARY HYPERTENSION (6) Pulmonary nodules Code(s): R91.8 - OTHER NONSPECIFIC ABNORMAL FINDING OF LUNG FIELD (7) COPD (chronic obstructive pulmonary disease) Code(s): J44.9 - CHRONIC OBSTRUCTIVE PULMONARY DISEASE, UNSPECIFIED (8) History of cigarette smoking Code(s): Z87.891 - PERSONAL HISTORY OF NICOTINE DEPENDENCE (9) Acute on chronic respiratory failure with hypoxia and hypercapnia Code(s): J96.21 - ACUTE AND CHRONIC RESPIRATORY FAILURE WITH HYPOXIA J96.22 - ACUTE AND CHRONIC RESPIRATORY FAILURE WITH HYPERCAPNIAEPENDENCE +Troponins/Acute NSTEMI Lactic Acidosis h/o Breast Ca 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
--- NOTE | 2016-07-11 19:27 | PN ---
Progress Note, Physician History of Present Illness: no complaints - Current Medication List Current Medications: Active Medications Acetaminophen (Tylenol -) 650 mg PO Q4H PRN PRN Reason: FEVER OR PAIN Last Admin: 07/10/16 11:11 Dose: 650 mg Acetaminophen (Tylenol -) 325 mg PO Q6H PRN PRN Reason: PAIN Last Admin: 07/11/16 13:46 Dose: 325 mg Atorvastatin Calcium (Lipitor -) 80 mg PO HS [facility] Last Admin: 07/10/16 21:24 Dose: 80 mg Budesonide/Formoterol Fumarate (Symbicort 160/4.5mcg -) 2 puff IH BID [facility] Last Admin: 07/11/16 10:38 Dose: 2 puff Clonazepam (Klonopin -) 0.5 mg PO Q12H PRN PRN Reason: ANXIETY Last Admin: 07/11/16 10:40 Dose: 0.5 mg Diltiazem HCl (Cardizem -) 90 mg PO Q6HPO [facility] Last Admin: 07/11/16 17:17 Dose: 90 mg Diltiazem HCl (Cardizem Injection -) 10 mg IVPUSH Q4H PRN PRN Reason: TACHYCARDIA Furosemide (Lasix -) 40 mg PO DAILY [facility] Last Admin: 07/11/16 10:38 Dose: 40 mg Hydralazine HCl (Apresoline -) 10 mg PO TID [facility] Last Admin: 07/11/16 15:30 Dose: Not Given Insulin Aspart (Novolog Vial Sliding Scale -) 1 vial SQ [facility] PRN Reason: Protocol Last Admin: 07/11/16 17:17 Dose: 6 units Insulin Detemir (Levemir Vial) 5 units SQ [facility] Last Admin: 07/10/16 21:24 Dose: 5 units Levofloxacin (Levaquin -) 750 mg PO DAILY [facility] Last Admin: 07/11/16 10:37 Dose: 750 mg Nitroglycerin (Nitrostat -) 0.4 mg SL Q5M PRN PRN Reason: FOR CHEST PAIN Oxycodone HCl (Roxicodone -) 5 mg PO Q6H PRN PRN Reason: PAIN Last Admin: 07/11/16 13:47 Dose: 5 mg Pantoprazole Sodium (Protonix -) 40 mg PO BID [facility] Last Admin: 05/01/17 10:38 Dose: 40 mg Prednisone (Deltasone -) 20 mg PO DAILY [facility] - Objective Vital Signs: Vital Signs Temperature 98.2 F 07/11/16 18:00 Pulse Rate 97 H 07/11/16 18:00 Respiratory Rate 20 07/11/16 18:00 Blood Pressure 157/90 07/11/16 18:00 O2 Sat by Pulse Oximetry (%) 89 L 07/11/16 08:00 Constitutional: Yes: No Distress HENT: Yes: Atraumatic Neck: Yes: Supple Cardiovascular: Yes: Regular Rate and Rhythm Respiratory: Yes: Rhonchi Gastrointestinal: Yes: Normal Bowel Sounds Extremities: Yes: WNL Neurological: Yes: Alert, Oriented Labs: CBC, BMP 07/08/16 05:15 07/08/16 05:15 INR, PTT INR 1.02 (0.82-1.09) 06/09/16 05:05 Problem List - Problems (1) Respiratory failure Assessment/Plan: on bipap/nc prn apiration pna on abx..po on steroids..taper Code(s): J96.90 - RESPIRATORY FAILURE, UNSP, UNSP W HYPOXIA OR HYPERCAPNIA Qualifiers: Chronicity: acute Respiratory failure complication: hypoxia and hypercapnia Qualified Code(s): J96.01 - Acute respiratory failure with hypoxia (2) Chronic respiratory failure with hypoxia Assessment/Plan: duo nebs steroids Code(s): J96.11 - CHRONIC RESPIRATORY FAILURE WITH HYPOXIA (3) CAD (coronary artery disease) Assessment/Plan: on meds follow up labs continue current meds Code(s): I25.10 - ATHSCL HEART DISEASE OF [place] CORONARY ARTERY W/O ANG PCTRS (4) COPD (chronic obstructive pulmonary disease) Assessment/Plan: on meds stable steroids duo nebs Code(s): J44.9 - CHRONIC OBSTRUCTIVE PULMONARY DISEASE, UNSPECIFIED (5) Chronic diastolic CHF (congestive heart failure) Code(s): I50.32 - CHRONIC DIASTOLIC (CONGESTIVE) HEART FAILURE (6) HLD (hyperlipidemia) Code(s): E78.5 - HYPERLIPIDEMIA, UNSPECIFIED Qualifiers: Hyperlipidemia type: unspecified Qualified Code(s): E78.5 - Hyperlipidemia, unspecified (7) HTN (hypertension) Assessment/Plan: on meds stable Code(s): I10 - ESSENTIAL (PRIMARY) HYPERTENSION Qualifiers: Hypertension type: essential hypertension Qualified Code(s): I10 - Essential (primary) hypertension (8) History of cigarette smoking Code(s): Z87.891 - PERSONAL HISTORY OF NICOTINE DEPENDENCE (9) Influenza Assessment/Plan: on meds id consult Code(s): J11.1 - FLU DUE TO UNIDENTIFIED INFLUENZA VIRUS W OTH RESP MANIFEST (10) Acute on chronic respiratory failure with hypoxia and hypercapnia Code(s): J96.21 - ACUTE AND CHRONIC RESPIRATORY FAILURE WITH HYPOXIA J96.22 - ACUTE AND CHRONIC RESPIRATORY FAILURE WITH HYPERCAPNIA (11) History of PSVT (paroxysmal supraventricular tachycardia) Code(s): Z86.79 - PERSONAL HISTORY OF OTHER DISEASES OF THE CIRCULATORY SYSTEM (12) Anemia Assessment/Plan: hgb stable Code(s): D64.9 - ANEMIA, UNSPECIFIED (13) NSTEMI (non-ST elevated myocardial infarction) Code(s): I21.4 - NON-ST ELEVATION (NSTEMI) MYOCARDIAL INFARCTION (14) GI (gastrointestinal bleed) Code(s): K92.2 - GASTROINTESTINAL HEMORRHAGE, UNSPECIFIED Assessment/Plan 1.+Influenza treated 2.Acute respiratory failure ON FACE MASK RLL INFILTERATE ON ABX AND DUO NEBS 3.ANEMIA STABLE 4.NSTEMI 5.History breast cancer, lung mass with negative bx 6.COPD, chronic with chronic hypoxemia 7.chf STABLE 8.LOWER GI BLEED...stable s/p blood transfusion FU CBC IV PROTONIX BID 9.DYSPHAGIA REFUSING BARIUM SWALLOW ON DYSPAGIA DIET pt now on prednisone 20 mg po daily 1 week, then 10 mg po daily 1 week should be assesed then by pulmonary/md dc to snf in am if stable
[2016-07-11] MEDS: ATORVASTATIN CA 80 MG TABLET (FP) PO SCH (21:57)
[2016-07-11] MEDS: INSULIN DETEMIR 100 UNITS/ML MDV SQ SCH (22:06)
[2016-07-12] MEDS: dilTIAZem HCL 30 MG TABLET (FP) PO SCH ×4 (00:05→17:43)
[2016-07-12] MEDS: hydrALAZINE HCL 10 MG TABLET PO SCH ×3 (05:52→21:22)
[2016-07-12] MEDS: INSULIN SLIDING SCALE (NOVOLOG) 1 VIAL SQ SCH ×4 (06:04→21:24)
[2016-07-12 07:44] LABS: BASOPHIL 0.6 % (0-2.0); EOSINOPHIL 0.4 % (0-4.5); MCH 28.1 pg (25.7-33.7); MEAN CELL VOLUME 87.8 fl (80-96); NEUTROPHILS 80.4 % (42.8-82.8); PLATELET COUNT 133 K/MM3 (134-434); RDW 22.7 % (11.6-15.6); WHITE BLOOD COUNT 8.6 K/mm3 (4.0-10.0)
[2016-07-12 08:29] LABS: ALK PHOS 92 U/L (45-117); ANION GAP 7 (8-16); BILIRUBIN,TOTAL 0.4 mg/dL (0.2-1.0); CALCIUM 8.4 mg/dL (8.5-10.1); CO2 35 mmol/L (21-32); COCKROFT - GAULT 232.1945; CREATININE 0.2 mg/dL (0.55-1.02); GLUCOSE,RANDOM 65 mg/dL (74-106); SGOT/AST 57 U/L (15-37); SGPT/ALT 40 U/L (12-78)
--- NOTE | 2016-07-12 08:55 | PN ---
Progress Note, Physician History of Present Illness: seen and examined this am. awake but confused. does not recognize me. repeating please help me over and over. does not answer questions. was on bipap overnight , now on nasal cannula. - Current Medication List Current Medications: Active Medications Acetaminophen (Tylenol -) 650 mg PO Q4H PRN PRN Reason: FEVER OR PAIN Last Admin: 07/10/16 11:11 Dose: 650 mg Acetaminophen (Tylenol -) 325 mg PO Q6H PRN PRN Reason: PAIN Last Admin: 07/11/16 20:02 Dose: 325 mg Atorvastatin Calcium (Lipitor -) 80 mg PO HS [facility] Last Admin: 07/11/16 21:57 Dose: 80 mg Budesonide/Formoterol Fumarate (Symbicort 160/4.5mcg -) 2 puff IH BID [facility] Last Admin: 07/11/16 22:02 Dose: Not Given Clonazepam (Klonopin -) 0.5 mg PO Q12H PRN PRN Reason: ANXIETY Last Admin: 07/11/16 21:56 Dose: 0.5 mg Diltiazem HCl (Cardizem -) 90 mg PO Q6HPO [facility] Last Admin: 07/12/16 05:51 Dose: 90 mg Diltiazem HCl (Cardizem Injection -) 10 mg IVPUSH Q4H PRN PRN Reason: TACHYCARDIA Furosemide (Lasix -) 40 mg PO DAILY [facility] Last Admin: 07/11/16 10:38 Dose: 40 mg Hydralazine HCl (Apresoline -) 10 mg PO TID [facility] Last Admin: 07/12/16 05:52 Dose: 10 mg Insulin Aspart (Novolog Vial Sliding Scale -) 1 vial SQ ACHS [facility] PRN Reason: Protocol Last Admin: 07/12/16 06:04 Dose: Not Given Insulin Detemir (Levemir Vial) 5 units SQ HS [facility] Last Admin: 07/11/16 22:06 Dose: 5 units Levofloxacin (Levaquin -) 750 mg PO DAILY [facility] Last Admin: 07/11/16 10:37 Dose: 750 mg Nitroglycerin (Nitrostat -) 0.4 mg SL Q5M PRN PRN Reason: FOR CHEST PAIN Oxycodone HCl (Roxicodone -) 5 mg PO Q6H PRN PRN Reason: PAIN Last Admin: 07/11/16 20:02 Dose: 5 mg Pantoprazole Sodium (Protonix -) 40 mg PO BID [facility] Last Admin: 07/11/16 21:57 Dose: 40 mg Prednisone (Deltasone -) 20 mg PO DAILY [facility] - Objective Vital Signs: Vital Signs Temperature 98 F 07/12/16 05:41 Pulse Rate 97 H 07/12/16 05:41 Respiratory Rate 22 07/12/16 05:41 Blood Pressure 106/73 07/12/16 05:41 O2 Sat by Pulse Oximetry (%) 96 07/11/16 22:00 Constitutional: Yes: Anxious, Mild Distress Eyes: Yes: Conjunctiva Clear, EOM Intact HENT: Yes: Atraumatic, Normocephalic Neck: Yes: Supple, Trachea Midline Cardiovascular: Yes: Regular Rate and Rhythm, Murmur, S1, S2. No: Bradycardia, Tachycardia, Pulse Irregular, Bruit, JVD, Gallop, Rub, S3, S4, Varicosities Respiratory: Yes: Regular, Diminished, On Nasal O2, Rhonchi, Wheezes. No: Rales Gastrointestinal: Yes: Normal Bowel Sounds, Soft. No: Distention, Tenderness Musculoskeletal: Yes: Muscle Weakness Edema: No Peripheral Pulses WNL: Yes Peripheral Pulses: Left Doralis Pedis: 2+, Right Dorsalis Pedis: 2+ Integumentary: Yes: WNL Neurological: Yes: Alert. No: Oriented Psychiatric: Yes: Alert. No: Oriented Labs: CBC, BMP 07/12/16 05:35 07/12/16 05:35 INR, PTT INR 1.02 (0.82-1.09) 06/09/16 05:05 - ....Imaging Chest X-ray: Report Reviewed, Image Reviewed EKG: Report Reviewed, Image Reviewed Other: Report Reviewed, Image Reviewed (tele-nsr, apcs, pvcs, couplets, 6 beats nsvt, PSVT) Assessment/Plan Recurrent acute respiratory failure requiring re-intubation, refused trach first intubation now extubated on telemetry Bilateral PNA Anemia PSVT and PAF CAD s/p NSTEMI Mild COPD REC: Frail/weak appearing, high risk for re-intubation PSVT overall adequately controlled occasional episodes, cont Cardizem 90mg po q6h No recurrent afib so far Holding ASA due to anemia High risk for anticoagulation (for PAF) due to traumatic subdural hematoma and anemia with guaiac + stool. Cont po Lasix
[2016-07-12] MEDS: LEVOFLOXACIN 250 MG TABLET (FP) PO SCH (09:31)
[2016-07-12] MEDS: FUROSEMIDE 40 MG TABLET (FP) PO SCH (09:31)
[2016-07-12] MEDS: BUDESONIDE/FORMETEROL FUMARATE 160/4.5 mcg INHALER IH SCH ×2 (09:31→21:57)
[2016-07-12] MEDS: PANTOPRAZOLE 40 MG TABLET (FP) PO SCH ×2 (09:31→21:23)
[2016-07-12] MEDS: predniSONE 20 MG TABLET (UD) PO SCH (09:31)
--- NOTE | 2016-07-12 09:33 | PN ---
Progress Note, Physician History of Present Illness: patient uncooperative still on bipapa alternating with nasal o2 - Current Medication List Current Medications: Active Medications Acetaminophen (Tylenol -) 650 mg PO Q4H PRN PRN Reason: FEVER OR PAIN Last Admin: 07/10/16 11:11 Dose: 650 mg Acetaminophen (Tylenol -) 325 mg PO Q6H PRN PRN Reason: PAIN Last Admin: 07/11/16 20:02 Dose: 325 mg Atorvastatin Calcium (Lipitor -) 80 mg PO HS [facility] Last Admin: 07/11/16 21:57 Dose: 80 mg Budesonide/Formoterol Fumarate (Symbicort 160/4.5mcg -) 2 puff IH BID [facility] Last Admin: 07/11/16 22:02 Dose: Not Given Clonazepam (Klonopin -) 0.5 mg PO Q12H PRN PRN Reason: ANXIETY Last Admin: 07/11/16 21:56 Dose: 0.5 mg Diltiazem HCl (Cardizem -) 90 mg PO Q6HPO [facility] Last Admin: 07/12/16 05:51 Dose: 90 mg Diltiazem HCl (Cardizem Injection -) 10 mg IVPUSH Q4H PRN PRN Reason: TACHYCARDIA Furosemide (Lasix -) 40 mg PO DAILY [facility] Last Admin: 07/11/16 10:38 Dose: 40 mg Hydralazine HCl (Apresoline -) 10 mg PO TID [facility] Last Admin: 07/12/16 05:52 Dose: 10 mg Insulin Aspart (Novolog Vial Sliding Scale -) 1 vial SQ [facility] PRN Reason: Protocol Last Admin: 07/12/16 06:04 Dose: Not Given Insulin Detemir (Levemir Vial) 5 units SQ [facility] Last Admin: 07/11/16 22:06 Dose: 5 units Levofloxacin (Levaquin -) 750 mg PO DAILY [facility] Last Admin: 07/11/16 10:37 Dose: 750 mg Nitroglycerin (Nitrostat -) 0.4 mg SL Q5M PRN PRN Reason: FOR CHEST PAIN Oxycodone HCl (Roxicodone -) 5 mg PO Q6H PRN PRN Reason: PAIN Last Admin: 07/11/16 20:02 Dose: 5 mg Pantoprazole Sodium (Protonix -) 40 mg PO BID [facility] Last Admin: 07/11/16 21:57 Dose: 40 mg Prednisone (Deltasone -) 20 mg PO DAILY [facility] - Objective Vital Signs: Vital Signs Temperature 98 F 07/12/16 05:41 Pulse Rate 97 H 07/12/16 05:41 Respiratory Rate 22 07/12/16 05:41 Blood Pressure 106/73 07/12/16 05:41 O2 Sat by Pulse Oximetry (%) 96 07/11/16 22:00 Constitutional: Yes: Anxious, Mild Distress Cardiovascular: Yes: Regular Rate and Rhythm Respiratory: Yes: Regular, On BiPap, On Nasal O2, Rhonchi Gastrointestinal: Yes: Normal Bowel Sounds, Soft Musculoskeletal: Yes: WNL Extremities: Yes: WNL Neurological: Yes: Alert, Oriented Psychiatric: Yes: Alert, Oriented Labs: CBC, BMP 07/12/16 05:35 07/12/16 05:35 INR, PTT INR 1.02 (0.82-1.09) 06/09/16 05:05 Assessment/Plan Problem List - Problems (1) Aortic stenosis Code(s): I35.0 - NONRHEUMATIC AORTIC (VALVE) STENOSIS (2) History of PSVT (paroxysmal supraventricular tachycardia) Code(s): Z86.79 - PERSONAL HISTORY OF OTHER DISEASES OF THE CIRCULATORY SYSTEM (3) NSTEMI (non-ST elevated myocardial infarction) Code(s): I21.4 - NON-ST ELEVATION (NSTEMI) MYOCARDIAL INFARCTION (4) Respiratory failure Code(s): J96.90 - RESPIRATORY FAILURE, UNSP, UNSP W HYPOXIA OR HYPERCAPNIA Qualifiers: Chronicity: acute Respiratory failure complication: hypoxia and hypercapnia Qualified Code(s): J96.01 - Acute respiratory failure with hypoxia (5) Pulmonary hypertension Code(s): I27.2 - OTHER SECONDARY PULMONARY HYPERTENSION (6) Pulmonary nodules Code(s): R91.8 - OTHER NONSPECIFIC ABNORMAL FINDING OF LUNG FIELD (7) COPD (chronic obstructive pulmonary disease) Code(s): J44.9 - CHRONIC OBSTRUCTIVE PULMONARY DISEASE, UNSPECIFIED (8) History of cigarette smoking Code(s): Z87.891 - PERSONAL HISTORY OF NICOTINE DEPENDENCE (9) Acute on chronic respiratory failure with hypoxia and hypercapnia Code(s): J96.21 - ACUTE AND CHRONIC RESPIRATORY FAILURE WITH HYPOXIA J96.22 - ACUTE AND CHRONIC RESPIRATORY FAILURE WITH HYPERCAPNIAEPENDENCE +Troponins/Acute NSTEMI Lactic Acidosis h/o Breast Ca 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
[2016-07-12] MEDS: ACETAMINOPHEN 325 MG TABLET (FP) PO PRN (09:54)
--- NOTE | 2016-07-12 11:36 | PN ---
Progress Note, BIOLOGICAL TECHNICAL OFFICER - Note Progress Note: Good appetite with pureed diet. Refused trials of liquid for me. Dysphonic voice. Vague. Limited eye contact. Flat affect. Aspiration precautions. Selected Entries 07/10/16 07/10/16 07/10/16 00:11 04:00 08:25 Breakfast Lunch Supper Temperature 98 F 98.1 F 98 F 07/10/16 07/10/16 07/10/16 11:42 14:15 17:00 Breakfast 75% Lunch 75% Supper Temperature 98.2 F 98.5 F 07/10/16 07/10/16 07/11/16 19:59 21:00 01:00 Breakfast Lunch Supper 75% Temperature 97.5 F L 98.2 F 07/11/16 07/11/16 07/11/16 05:00 08:16 14:00 Breakfast 50% Lunch 50% Supper Temperature 97.6 F 98.1 F 98.8 F 07/11/16 07/11/16 07/11/16 18:00 19:24 21:54 Breakfast Lunch Supper 75% Temperature 98.2 F 97.6 F 07/12/16 07/12/16 07/12/16 02:00 05:41 10:00 Breakfast Lunch Supper Temperature 98.7 F 98 F 98 F 07/12/16 10:42 Breakfast 50% Lunch Supper Temperature Encourage supplements b/n meals,.
--- NOTE | 2016-07-12 11:36 | PN ---
Progress Note, Physician History of Present Illness: pulmonary awake,confused,dyspneic ,on nasal o2 - Current Medication List Current Medications: Active Medications Acetaminophen (Tylenol -) 650 mg PO Q4H PRN PRN Reason: FEVER OR PAIN Last Admin: 07/12/16 09:54 Dose: 650 mg Acetaminophen (Tylenol -) 325 mg PO Q6H PRN PRN Reason: PAIN Last Admin: 07/11/16 20:02 Dose: 325 mg Atorvastatin Calcium (Lipitor -) 80 mg PO HS [facility] Last Admin: 07/11/16 21:57 Dose: 80 mg Budesonide/Formoterol Fumarate (Symbicort 160/4.5mcg -) 2 puff IH BID [facility] Last Admin: 07/12/16 09:31 Dose: 2 puff Clonazepam (Klonopin -) 0.5 mg PO Q12H PRN PRN Reason: ANXIETY Last Admin: 07/11/16 21:56 Dose: 0.5 mg Diltiazem HCl (Cardizem -) 90 mg PO Q6HPO [facility] Last Admin: 07/12/16 05:51 Dose: 90 mg Diltiazem HCl (Cardizem Injection -) 10 mg IVPUSH Q4H PRN PRN Reason: TACHYCARDIA Furosemide (Lasix -) 40 mg PO DAILY [facility] Last Admin: 07/12/16 09:31 Dose: 40 mg Hydralazine HCl (Apresoline -) 10 mg PO TID [facility] Last Admin: 07/12/16 05:52 Dose: 10 mg Insulin Aspart (Novolog Vial Sliding Scale -) 1 vial SQ [facility] PRN Reason: Protocol Last Admin: 07/12/16 06:04 Dose: Not Given Insulin Detemir (Levemir Vial) 5 units SQ [facility] Last Admin: 07/11/16 22:06 Dose: 5 units Levofloxacin (Levaquin -) 750 mg PO DAILY [facility] Last Admin: 07/12/16 09:31 Dose: 750 mg Nitroglycerin (Nitrostat -) 0.4 mg SL Q5M PRN PRN Reason: FOR CHEST PAIN Oxycodone HCl (Roxicodone -) 5 mg PO Q6H PRN PRN Reason: PAIN Last Admin: 07/11/16 20:02 Dose: 5 mg Pantoprazole Sodium (Protonix -) 40 mg PO BID [facility] Last Admin: 07/12/16 09:31 Dose: 40 mg Prednisone (Deltasone -) 20 mg PO DAILY [facility] Last Admin: 07/12/16 09:31 Dose: 20 mg - Objective Vital Signs: Vital Signs Temperature 98 F 07/12/16 10:00 Pulse Rate 100 H 07/12/16 10:00 Respiratory Rate 22 07/12/16 10:00 Blood Pressure 122/68 07/12/16 10:00 O2 Sat by Pulse Oximetry (%) 95 07/12/16 09:00 Constitutional: Yes: Calm, Mild Distress, Thin Eyes: Yes: WNL HENT: Yes: WNL Neck: Yes: WNL Cardiovascular: Yes: Regular Rate and Rhythm, S1, S2 Respiratory: Yes: Rales, Rhonchi (scattered alin rhonchi,alin rales) Gastrointestinal: Yes: Normal Bowel Sounds, Soft Extremities: Yes: WNL Edema: Yes Labs: CBC, BMP 07/12/16 05:35 07/12/16 05:35 INR, PTT INR 1.02 (0.82-1.09) 06/09/16 05:05 Problem List - Problems (1) Aortic stenosis Code(s): I35.0 - NONRHEUMATIC AORTIC (VALVE) STENOSIS (2) History of PSVT (paroxysmal supraventricular tachycardia) Code(s): Z86.79 - PERSONAL HISTORY OF OTHER DISEASES OF THE CIRCULATORY SYSTEM (3) NSTEMI (non-ST elevated myocardial infarction) Code(s): I21.4 - NON-ST ELEVATION (NSTEMI) MYOCARDIAL INFARCTION (4) Respiratory failure Code(s): J96.90 - RESPIRATORY FAILURE, UNSP, UNSP W HYPOXIA OR HYPERCAPNIA Qualifiers: Chronicity: acute Respiratory failure complication: hypoxia and hypercapnia Qualified Code(s): J96.01 - Acute respiratory failure with hypoxia (5) Pulmonary hypertension Code(s): I27.2 - OTHER SECONDARY PULMONARY HYPERTENSION (6) Pulmonary nodules Code(s): R91.8 - OTHER NONSPECIFIC ABNORMAL FINDING OF LUNG FIELD (7) COPD (chronic obstructive pulmonary disease) Code(s): J44.9 - CHRONIC OBSTRUCTIVE PULMONARY DISEASE, UNSPECIFIED (8) History of cigarette smoking Code(s): Z87.891 - PERSONAL HISTORY OF NICOTINE DEPENDENCE (9) Acute on chronic respiratory failure with hypoxia and hypercapnia Code(s): J96.21 - ACUTE AND CHRONIC RESPIRATORY FAILURE WITH HYPOXIA J96.22 - ACUTE AND CHRONIC RESPIRATORY FAILURE WITH HYPERCAPNIA Assessment/Plan ASSESSMENT AND PLAN: Acute on Chronic Hypoxic and Hypercapneic Respiratory Failure improved Influenza A s/p treatment Pneumonia - ?Aspiration Acute COPD Exacerbation CAD +Troponins/Acute NSTEMI h/o Breast Ca Lung Nodules with recent biopsy showing necrotizing granulomas Smoker - PO ABX per ID - Prednisone - inhaled bronchodilators - ASA - lasix - NIPPV - PO as tolerated - DVT/GI prophylaxis - High risk for repeat intubation and decompensation due to patient non- compliance with medical therapy and her overall medical condition DR EARL
[2016-07-12] MEDS: clonazePAM 0.5 MG TABLET PO PRN (11:52)
[2016-07-12] MEDS: ALBUTEROL SO4 2.5/IPRATROPIUM 0.5 INH SOL 3 ML VIAL.NEB. NEB SCH ×3 (12:50→23:26)
[2016-07-12] MEDS ORDERED: INSULIN (NOVOLOG) ASPART 100 UNITS/ML 10ML VIAL ONE (16:43)
--- NOTE | 2016-07-12 18:32 | PN ---
Progress Note, Physician History of Present Illness: no complaints - Current Medication List Current Medications: Active Medications Acetaminophen (Tylenol -) 650 mg PO Q4H PRN PRN Reason: FEVER OR PAIN Last Admin: 07/12/16 09:54 Dose: 650 mg Acetaminophen (Tylenol -) 325 mg PO Q6H PRN PRN Reason: PAIN Last Admin: 07/11/16 20:02 Dose: 325 mg Albuterol/Ipratropium (Duoneb -) 1 amp NEB QIDR [facility] Last Admin: 07/12/16 17:58 Dose: 1 amp Atorvastatin Calcium (Lipitor -) 80 mg PO [facility] Last Admin: 07/11/16 21:57 Dose: 80 mg Budesonide/Formoterol Fumarate (Symbicort 160/4.5mcg -) 2 puff IH BID [facility] Last Admin: 07/12/16 09:31 Dose: 2 puff Clonazepam (Klonopin -) 0.5 mg PO Q12H PRN PRN Reason: ANXIETY Last Admin: 07/12/16 11:52 Dose: 0.5 mg Diltiazem HCl (Cardizem -) 90 mg PO Q6HPO [facility] Last Admin: 07/12/16 17:43 Dose: 90 mg Diltiazem HCl (Cardizem Injection -) 10 mg IVPUSH Q4H PRN PRN Reason: TACHYCARDIA Furosemide (Lasix -) 40 mg PO DAILY [facility] Last Admin: 07/12/16 09:31 Dose: 40 mg Hydralazine HCl (Apresoline -) 10 mg PO TID [facility] Last Admin: 07/12/16 13:28 Dose: 10 mg Insulin Aspart (Novolog Vial Sliding Scale -) 1 vial SQ [facility] PRN Reason: Protocol Last Admin: 07/12/16 16:53 Dose: 6 units Insulin Detemir (Levemir Vial) 5 units SQ [facility] Last Admin: 07/11/16 22:06 Dose: 5 units Levofloxacin (Levaquin -) 750 mg PO DAILY [facility] Last Admin: 07/12/16 09:31 Dose: 750 mg Nitroglycerin (Nitrostat -) 0.4 mg SL Q5M PRN PRN Reason: FOR CHEST PAIN Oxycodone HCl (Roxicodone -) 5 mg PO Q6H PRN PRN Reason: PAIN Last Admin: 07/11/16 20:02 Dose: 5 mg Pantoprazole Sodium (Protonix -) 40 mg PO BID [facility] Last Admin: 07/12/16 09:31 Dose: 40 mg Prednisone (Deltasone -) 20 mg PO DAILY [facility] Last Admin: 07/12/16 09:31 Dose: 20 mg - Objective Vital Signs: Vital Signs Temperature 98.0 F 07/12/16 14:48 Pulse Rate 104 H 07/12/16 14:48 Respiratory Rate 20 07/12/16 14:48 Blood Pressure 139/59 07/12/16 14:48 O2 Sat by Pulse Oximetry (%) 96 07/12/16 17:55 Constitutional: Yes: No Distress HENT: Yes: Atraumatic Neck: Yes: Supple Cardiovascular: Yes: Regular Rate and Rhythm Respiratory: Yes: Rhonchi Gastrointestinal: Yes: Normal Bowel Sounds Extremities: Yes: WNL Neurological: Yes: Alert, Oriented Labs: CBC, BMP 07/12/16 05:35 07/12/16 05:35 INR, PTT INR 1.02 (0.82-1.09) 06/09/16 05:05 Problem List - Problems (1) Respiratory failure Assessment/Plan: on bipap/nc prn apiration pna on abx..po on steroids..taper Code(s): J96.90 - RESPIRATORY FAILURE, UNSP, UNSP W HYPOXIA OR HYPERCAPNIA Qualifiers: Chronicity: acute Respiratory failure complication: hypoxia and hypercapnia Qualified Code(s): J96.01 - Acute respiratory failure with hypoxia (2) Chronic respiratory failure with hypoxia Assessment/Plan: duo nebs steroids Code(s): J96.11 - CHRONIC RESPIRATORY FAILURE WITH HYPOXIA (3) CAD (coronary artery disease) Assessment/Plan: on meds follow up labs continue current meds Code(s): I25.10 - ATHSCL HEART DISEASE OF [place] CORONARY ARTERY W/O ANG PCTRS (4) COPD (chronic obstructive pulmonary disease) Assessment/Plan: on meds stable steroids duo nebs Code(s): J44.9 - CHRONIC OBSTRUCTIVE PULMONARY DISEASE, UNSPECIFIED (5) Chronic diastolic CHF (congestive heart failure) Assessment/Plan: stable on meds Code(s): I50.32 - CHRONIC DIASTOLIC (CONGESTIVE) HEART FAILURE (6) HLD (hyperlipidemia) Assessment/Plan: on meds Code(s): E78.5 - HYPERLIPIDEMIA, UNSPECIFIED Qualifiers: Hyperlipidemia type: unspecified Qualified Code(s): E78.5 - Hyperlipidemia, unspecified (7) HTN (hypertension) Code(s): I10 - ESSENTIAL (PRIMARY) HYPERTENSION Qualifiers: Hypertension type: essential hypertension Qualified Code(s): I10 - Essential (primary) hypertension (8) History of cigarette smoking Code(s): Z87.891 - PERSONAL HISTORY OF NICOTINE DEPENDENCE (9) Influenza Code(s): J11.1 - FLU DUE TO UNIDENTIFIED INFLUENZA VIRUS W OTH RESP MANIFEST (10) Acute on chronic respiratory failure with hypoxia and hypercapnia Code(s): J96.21 - ACUTE AND CHRONIC RESPIRATORY FAILURE WITH HYPOXIA J96.22 - ACUTE AND CHRONIC RESPIRATORY FAILURE WITH HYPERCAPNIA (11) History of PSVT (paroxysmal supraventricular tachycardia) Code(s): Z86.79 - PERSONAL HISTORY OF OTHER DISEASES OF THE CIRCULATORY SYSTEM (12) Anemia Code(s): D64.9 - ANEMIA, UNSPECIFIED (13) NSTEMI (non-ST elevated myocardial infarction) Code(s): I21.4 - NON-ST ELEVATION (NSTEMI) MYOCARDIAL INFARCTION (14) GI (gastrointestinal bleed) Code(s): K92.2 - GASTROINTESTINAL HEMORRHAGE, UNSPECIFIED Assessment/Plan 1.+Influenza treated 2.Acute respiratory failure ON FACE MASK RLL INFILTERATE ON ABX AND DUO NEBS 3.ANEMIA STABLE 4.NSTEMI 5.History breast cancer, lung mass with negative bx 6.COPD, chronic with chronic hypoxemia 7.chf STABLE 8.LOWER GI BLEED...stable s/p blood transfusion FU CBC IV PROTONIX BID 9.DYSPHAGIA REFUSING BARIUM SWALLOW ON DYSPAGIA DIET pt now on prednisone 20 mg po daily 1 week, then 10 mg po daily 1 week should be assesed then by pulmonary/ dc to snf
[2016-07-12] MEDS: ATORVASTATIN CA 80 MG TABLET (FP) PO SCH (21:23)
[2016-07-12] MEDS: INSULIN DETEMIR 100 UNITS/ML MDV SQ SCH (21:23)
[2016-07-13] MEDS: dilTIAZem HCL 30 MG TABLET (FP) PO SCH (00:49)
[2016-07-13] MEDS: clonazePAM 0.5 MG TABLET PO PRN ×2 (01:51→14:08)
[2016-07-13] MEDS ORDERED: dilTIAZem HCL 60 MG TABLET (FP) ONE ×3 (06:01→17:46)
[2016-07-13] MEDS ORDERED: dilTIAZem HCL 30 MG TABLET (FP) ONE ×3 (06:01→17:46)
[2016-07-13] MEDS: hydrALAZINE HCL 10 MG TABLET PO SCH ×3 (06:05→21:43)
[2016-07-13] MEDS: INSULIN SLIDING SCALE (NOVOLOG) 1 VIAL SQ SCH ×3 (06:10→17:45)
[2016-07-13] MEDS: DILTIAZEM 60 MG, DILTIAZEM 30 MG PO SCH ×3 (06:10→17:54)
[2016-07-13] MEDS: ALBUTEROL SO4 2.5/IPRATROPIUM 0.5 INH SOL 3 ML VIAL.NEB. NEB SCH ×3 (06:20→18:12)
--- NOTE | 2016-07-13 09:27 | PN ---
Progress Note, Physician Chief Complaint: no chest pain - Current Medication List Current Medications: Active Medications Acetaminophen (Tylenol -) 650 mg PO Q4H PRN PRN Reason: FEVER OR PAIN Last Admin: 07/12/16 09:54 Dose: 650 mg Acetaminophen (Tylenol -) 325 mg PO Q6H PRN PRN Reason: PAIN Last Admin: 07/11/16 20:02 Dose: 325 mg Albuterol/Ipratropium (Duoneb -) 1 amp NEB QIDR [facility] Last Admin: 07/13/16 06:20 Dose: 1 amp Atorvastatin Calcium (Lipitor -) 80 mg PO [facility] Last Admin: 07/12/16 21:23 Dose: 80 mg Budesonide/Formoterol Fumarate (Symbicort 160/4.5mcg -) 2 puff IH BID [facility] Last Admin: 07/12/16 21:57 Dose: 2 puff Clonazepam (Klonopin -) 0.5 mg PO Q12H PRN PRN Reason: ANXIETY Last Admin: 07/13/16 01:51 Dose: 0.5 mg Diltiazem HCl (Cardizem Injection -) 10 mg IVPUSH Q4H PRN PRN Reason: TACHYCARDIA Diltiazem HCl 60 mg/ Diltiazem (HCl 30 mg) 90 mg PO Q6HPO [facility] Last Admin: 07/13/16 06:10 Dose: 90 mg Furosemide (Lasix -) 40 mg PO DAILY [facility] Last Admin: 07/12/16 09:31 Dose: 40 mg Hydralazine HCl (Apresoline -) 10 mg PO TID [facility] Last Admin: 07/13/16 06:05 Dose: 10 mg Insulin Aspart (Novolog Vial Sliding Scale -) 1 vial SQ [facility] PRN Reason: Protocol Last Admin: 07/13/16 06:10 Dose: Not Given Insulin Detemir (Levemir Vial) 5 units SQ [facility] Last Admin: 07/12/16 21:23 Dose: 5 units Levofloxacin (Levaquin -) 750 mg PO DAILY [facility] Last Admin: 07/12/16 09:31 Dose: 750 mg Nitroglycerin (Nitrostat -) 0.4 mg SL Q5M PRN PRN Reason: FOR CHEST PAIN Oxycodone HCl (Roxicodone -) 5 mg PO Q6H PRN PRN Reason: PAIN Last Admin: 07/11/16 20:02 Dose: 5 mg Pantoprazole Sodium (Protonix -) 40 mg PO BID [facility] Last Admin: 07/12/16 21:23 Dose: 40 mg Prednisone (Deltasone -) 20 mg PO DAILY [facility] Last Admin: 07/12/16 09:31 Dose: 20 mg - Objective Vital Signs: Vital Signs Temperature 98.2 F 07/13/16 05:54 Pulse Rate 96 H 07/13/16 05:54 Respiratory Rate 20 07/13/16 05:54 Blood Pressure 123/70 07/13/16 05:54 O2 Sat by Pulse Oximetry (%) 96 07/13/16 06:25 Constitutional: Yes: No Distress Eyes: Yes: Conjunctiva Clear Cardiovascular: Yes: Regular Rate and Rhythm Respiratory: Yes: Other (bilateral rhonchi- no active wheezing) Gastrointestinal: Yes: Soft Edema: Yes Edema: LLE: 1+, RLE: 1+ Neurological: Yes: Alert, Oriented Labs: CBC, BMP 07/12/16 05:35 07/12/16 05:35 INR, PTT INR 1.02 (0.82-1.09) 06/09/16 05:05 Assessment/Plan Assessment/Plan Recurrent acute respiratory failure requiring re-intubation, refused trach first intubation now extubated on telemetry Bilateral PNA Anemia PSVT and PAF CAD s/p NSTEMI Mild COPD REC: Frail/weak appearing, high risk for re-intubation PSVT overall adequately controlled occasional episodes, cont Cardizem 90mg po q6h Holding ASA due to anemia High risk for anticoagulation (for PAF) due to traumatic subdural hematoma and anemia with guaiac + stool. Cont po Lasix
[2016-07-13] MEDS: LEVOFLOXACIN 250 MG TABLET (FP) PO SCH (10:12)
[2016-07-13] MEDS: PANTOPRAZOLE 40 MG TABLET (FP) PO SCH ×2 (10:12→21:43)
[2016-07-13] MEDS: BUDESONIDE/FORMETEROL FUMARATE 160/4.5 mcg INHALER IH SCH ×2 (10:12→21:46)
[2016-07-13] MEDS: predniSONE 20 MG TABLET (UD) PO SCH (10:12)
[2016-07-13] MEDS: FUROSEMIDE 40 MG TABLET (FP) PO SCH (10:12)
--- NOTE | 2016-07-13 12:08 | PN ---
Progress Note (short form) - Note Progress Note: PULMONARY NO OVERALL CHANGE IN PROGRESSIVE [place] COURSE WOULD SUGGEST PALLIATIVE CARE Acute on Chronic Hypoxic and Hypercapneic Respiratory Failure improved Influenza A s/p treatment Pneumonia - ?Aspiration Acute COPD Exacerbation CAD +Troponins/Acute NSTEMI h/o Breast Ca Lung Nodules with recent biopsy showing necrotizing granulomas Smoker - PO ABX per ID - Prednisone - inhaled bronchodilators - ASA - lasix - NIPPV - PO as tolerated - DVT/GI prophylaxis - High risk for repeat intubation and decompensation due to patient non- compliance with medical therapy and her overall medical condition Jory GHOSH MD
--- NOTE | 2016-07-13 15:29 | PN ---
Progress Note, Physician History of Present Illness: very anxious still with breathing issues - Current Medication List Current Medications: Active Medications Acetaminophen (Tylenol -) 650 mg PO Q4H PRN PRN Reason: FEVER OR PAIN Last Admin: 07/12/16 09:54 Dose: 650 mg Acetaminophen (Tylenol -) 325 mg PO Q6H PRN PRN Reason: PAIN Last Admin: 07/11/16 20:02 Dose: 325 mg Albuterol/Ipratropium (Duoneb -) 1 amp NEB QIDR [facility] Last Admin: 07/13/16 11:12 Dose: 1 amp Atorvastatin Calcium (Lipitor -) 80 mg PO HS [facility] Last Admin: 07/12/16 21:23 Dose: 80 mg Budesonide/Formoterol Fumarate (Symbicort 160/4.5mcg -) 2 puff IH BID [facility] Last Admin: 07/13/16 10:12 Dose: 2 puff Clonazepam (Klonopin -) 0.5 mg PO Q12H PRN PRN Reason: ANXIETY Last Admin: 07/13/16 14:08 Dose: 0.5 mg Diltiazem HCl (Cardizem Injection -) 10 mg IVPUSH Q4H PRN PRN Reason: TACHYCARDIA Diltiazem HCl 60 mg/ Diltiazem (HCl 30 mg) 90 mg PO Q6HPO [facility] Last Admin: 07/13/16 11:54 Dose: 90 mg Furosemide (Lasix -) 40 mg PO DAILY [facility] Last Admin: 07/13/16 10:12 Dose: 40 mg Hydralazine HCl (Apresoline -) 10 mg PO TID [facility] Last Admin: 07/13/16 14:08 Dose: 10 mg Insulin Aspart (Novolog Vial Sliding Scale -) 1 vial SQ [facility] PRN Reason: Protocol Last Admin: 07/13/16 11:53 Dose: Not Given Insulin Detemir (Levemir Vial) 5 units SQ [facility] Last Admin: 07/12/16 21:23 Dose: 5 units Levofloxacin (Levaquin -) 750 mg PO DAILY [facility] Last Admin: 07/13/16 10:12 Dose: 750 mg Nitroglycerin (Nitrostat -) 0.4 mg SL Q5M PRN PRN Reason: FOR CHEST PAIN Pantoprazole Sodium (Protonix -) 40 mg PO BID [facility] Last Admin: 07/13/16 10:12 Dose: 40 mg Prednisone (Deltasone -) 20 mg PO DAILY [facility] Last Admin: 07/13/16 10:12 Dose: 20 mg - Objective Vital Signs: Vital Signs Temperature 98.5 F 07/13/16 14:00 Pulse Rate 96 H 07/13/16 14:00 Respiratory Rate 20 07/13/16 14:00 Blood Pressure 122/61 07/13/16 14:00 O2 Sat by Pulse Oximetry (%) 96 07/13/16 10:10 Constitutional: Yes: Anxious, Mild Distress Cardiovascular: Yes: Regular Rate and Rhythm Respiratory: Yes: Regular, CTA Bilaterally, On BiPap, On Nasal O2 Gastrointestinal: Yes: Normal Bowel Sounds, Soft Musculoskeletal: Yes: WNL Extremities: Yes: WNL Neurological: Yes: Alert, Oriented Psychiatric: Yes: Alert Labs: CBC, BMP 07/12/16 05:35 07/12/16 05:35 INR, PTT INR 1.02 (0.82-1.09) 06/09/16 05:05 Assessment/Plan Problem List - Problems (1) Aortic stenosis Code(s): I35.0 - NONRHEUMATIC AORTIC (VALVE) STENOSIS (2) History of PSVT (paroxysmal supraventricular tachycardia) Code(s): Z86.79 - PERSONAL HISTORY OF OTHER DISEASES OF THE CIRCULATORY SYSTEM (3) NSTEMI (non-ST elevated myocardial infarction) Code(s): I21.4 - NON-ST ELEVATION (NSTEMI) MYOCARDIAL INFARCTION (4) Respiratory failure Code(s): J96.90 - RESPIRATORY FAILURE, UNSP, UNSP W HYPOXIA OR HYPERCAPNIA Qualifiers: Chronicity: acute Respiratory failure complication: hypoxia and hypercapnia Qualified Code(s): J96.01 - Acute respiratory failure with hypoxia (5) Pulmonary hypertension Code(s): I27.2 - OTHER SECONDARY PULMONARY HYPERTENSION (6) Pulmonary nodules Code(s): R91.8 - OTHER NONSPECIFIC ABNORMAL FINDING OF LUNG FIELD (7) COPD (chronic obstructive pulmonary disease) Code(s): J44.9 - CHRONIC OBSTRUCTIVE PULMONARY DISEASE, UNSPECIFIED (8) History of cigarette smoking Code(s): Z87.891 - PERSONAL HISTORY OF NICOTINE DEPENDENCE (9) Acute on chronic respiratory failure with hypoxia and hypercapnia Code(s): J96.21 - ACUTE AND CHRONIC RESPIRATORY FAILURE WITH HYPOXIA J96.22 - ACUTE AND CHRONIC RESPIRATORY FAILURE WITH HYPERCAPNIAEPENDENCE +Troponins/Acute NSTEMI Lactic Acidosis h/o Breast Ca 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
[2016-07-13] MEDS ORDERED: PT OWN MED DRAWER 7, Y5N ONE ×2 (17:47→17:51)
--- NOTE | 2016-07-13 18:31 | PN ---
Progress Note, Physician History of Present Illness: no complaints - Current Medication List Current Medications: Active Medications Acetaminophen (Tylenol -) 650 mg PO Q4H PRN PRN Reason: FEVER OR PAIN Last Admin: 07/12/16 09:54 Dose: 650 mg Acetaminophen (Tylenol -) 325 mg PO Q6H PRN PRN Reason: PAIN Last Admin: 07/11/16 20:02 Dose: 325 mg Albuterol/Ipratropium (Duoneb -) 1 amp NEB QIDR [facility] Last Admin: 07/13/16 11:12 Dose: 1 amp Atorvastatin Calcium (Lipitor -) 80 mg PO [facility] Last Admin: 07/12/16 21:23 Dose: 80 mg Budesonide/Formoterol Fumarate (Symbicort 160/4.5mcg -) 2 puff IH BID [facility] Last Admin: 07/13/16 10:12 Dose: 2 puff Clonazepam (Klonopin -) 0.5 mg PO Q12H PRN PRN Reason: ANXIETY Last Admin: 07/13/16 14:08 Dose: 0.5 mg Diltiazem HCl (Cardizem Injection -) 10 mg IVPUSH Q4H PRN PRN Reason: TACHYCARDIA Diltiazem HCl 60 mg/ Diltiazem (HCl 30 mg) 90 mg PO Q6HPO [facility] Last Admin: 07/13/16 17:54 Dose: 90 mg Furosemide (Lasix -) 40 mg PO DAILY [facility] Last Admin: 07/13/16 10:12 Dose: 40 mg Hydralazine HCl (Apresoline -) 10 mg PO TID [facility] Last Admin: 07/13/16 14:08 Dose: 10 mg Insulin Aspart (Novolog Vial Sliding Scale -) 1 vial SQ [facility] PRN Reason: Protocol Last Admin: 07/13/16 17:45 Dose: Not Given Insulin Detemir (Levemir Vial) 5 units SQ [facility] Last Admin: 07/12/16 21:23 Dose: 5 units Levofloxacin (Levaquin -) 750 mg PO DAILY [facility] Last Admin: 07/13/16 10:12 Dose: 750 mg Nitroglycerin (Nitrostat -) 0.4 mg SL Q5M PRN PRN Reason: FOR CHEST PAIN Pantoprazole Sodium (Protonix -) 40 mg PO BID [facility] Last Admin: 07/13/16 10:12 Dose: 40 mg Prednisone (Deltasone -) 20 mg PO DAILY [facility] Last Admin: 07/13/16 10:12 Dose: 20 mg - Objective Vital Signs: Vital Signs Temperature 98.5 F 07/13/16 14:00 Pulse Rate 96 H 07/13/16 14:00 Respiratory Rate 20 07/13/16 14:00 Blood Pressure 122/61 07/13/16 14:00 O2 Sat by Pulse Oximetry (%) 96 07/13/16 10:10 Constitutional: Yes: No Distress HENT: Yes: Atraumatic Neck: Yes: Supple Cardiovascular: Yes: Regular Rate and Rhythm Respiratory: Yes: Rhonchi Gastrointestinal: Yes: Normal Bowel Sounds Extremities: Yes: WNL Neurological: Yes: Alert, Oriented Labs: CBC, BMP 07/12/16 05:35 07/12/16 05:35 INR, PTT INR 1.02 (0.82-1.09) 06/09/16 05:05 Problem List - Problems (1) Respiratory failure Assessment/Plan: on bipap/nc prn apiration pna on abx..po on steroids..taper Code(s): J96.90 - RESPIRATORY FAILURE, UNSP, UNSP W HYPOXIA OR HYPERCAPNIA Qualifiers: Chronicity: acute Respiratory failure complication: hypoxia and hypercapnia Qualified Code(s): J96.01 - Acute respiratory failure with hypoxia (2) Chronic respiratory failure with hypoxia Assessment/Plan: duo nebs steroids Code(s): J96.11 - CHRONIC RESPIRATORY FAILURE WITH HYPOXIA (3) CAD (coronary artery disease) Assessment/Plan: on meds follow up labs continue current meds Code(s): I25.10 - ATHSCL HEART DISEASE OF [place] CORONARY ARTERY W/O ANG PCTRS (4) COPD (chronic obstructive pulmonary disease) Assessment/Plan: on meds stable steroids duo nebs Code(s): J44.9 - CHRONIC OBSTRUCTIVE PULMONARY DISEASE, UNSPECIFIED (5) Chronic diastolic CHF (congestive heart failure) Assessment/Plan: stable on meds Code(s): I50.32 - CHRONIC DIASTOLIC (CONGESTIVE) HEART FAILURE (6) HLD (hyperlipidemia) Assessment/Plan: on meds Code(s): E78.5 - HYPERLIPIDEMIA, UNSPECIFIED Qualifiers: Hyperlipidemia type: unspecified Qualified Code(s): E78.5 - Hyperlipidemia, unspecified (7) HTN (hypertension) Assessment/Plan: on meds stable Code(s): I10 - ESSENTIAL (PRIMARY) HYPERTENSION Qualifiers: Hypertension type: essential hypertension Qualified Code(s): I10 - Essential (primary) hypertension (8) History of cigarette smoking Code(s): Z87.891 - PERSONAL HISTORY OF NICOTINE DEPENDENCE (9) Influenza Assessment/Plan: on meds id consult Code(s): J11.1 - FLU DUE TO UNIDENTIFIED INFLUENZA VIRUS W OTH RESP MANIFEST (10) Acute on chronic respiratory failure with hypoxia and hypercapnia Code(s): J96.21 - ACUTE AND CHRONIC RESPIRATORY FAILURE WITH HYPOXIA J96.22 - ACUTE AND CHRONIC RESPIRATORY FAILURE WITH HYPERCAPNIA (11) History of PSVT (paroxysmal supraventricular tachycardia) Code(s): Z86.79 - PERSONAL HISTORY OF OTHER DISEASES OF THE CIRCULATORY SYSTEM (12) Anemia Code(s): D64.9 - ANEMIA, UNSPECIFIED (13) NSTEMI (non-ST elevated myocardial infarction) Code(s): I21.4 - NON-ST ELEVATION (NSTEMI) MYOCARDIAL INFARCTION (14) GI (gastrointestinal bleed) Code(s): K92.2 - GASTROINTESTINAL HEMORRHAGE, UNSPECIFIED Assessment/Plan 1.+Influenza treated 2.Acute respiratory failure ON FACE MASK RLL INFILTERATE ON ABX AND DUO NEBS 3.ANEMIA STABLE 4.NSTEMI 5.History breast cancer, lung mass with negative bx 6.COPD, chronic with chronic hypoxemia 7.chf STABLE 8.LOWER GI BLEED...stable s/p blood transfusion FU CBC IV PROTONIX BID 9.DYSPHAGIA REFUSING BARIUM SWALLOW ON DYSPAGIA DIET pt now on prednisone 20 mg po daily 1 week, then 10 mg po daily 1 week should be assesed then by pulmonary/md NOTES REVIEWED ABOUT DC PLANNING TO SNF
[2016-07-13] MEDS: INSULIN DETEMIR 100 UNITS/ML MDV SQ SCH (21:42)
[2016-07-13] MEDS: ATORVASTATIN CA 80 MG TABLET (FP) PO SCH (21:43)
[2016-07-14] MEDS: DILTIAZEM 60 MG, DILTIAZEM 30 MG PO SCH ×4 (00:15→17:05)
[2016-07-14] MEDS: ALBUTEROL SO4 2.5/IPRATROPIUM 0.5 INH SOL 3 ML VIAL.NEB. NEB SCH ×5 (00:16→23:57)
[2016-07-14] MEDS ORDERED: dilTIAZem HCL 60 MG TABLET (FP) ONE ×5 (01:06→22:55)
[2016-07-14] MEDS ORDERED: dilTIAZem HCL 30 MG TABLET (FP) ONE ×5 (01:06→22:55)
[2016-07-14] MEDS: hydrALAZINE HCL 10 MG TABLET PO SCH ×3 (06:16→22:43)
[2016-07-14] MEDS: INSULIN SLIDING SCALE (NOVOLOG) 1 VIAL SQ SCH ×3 (06:19→17:20)
--- NOTE | 2016-07-14 08:59 | PN ---
Progress Note, Physician Chief Complaint: feels slightly more SOB Denies chest pain - Current Medication List Current Medications: Active Medications Acetaminophen (Tylenol -) 650 mg PO Q4H PRN PRN Reason: FEVER OR PAIN Last Admin: 07/12/16 09:54 Dose: 650 mg Acetaminophen (Tylenol -) 325 mg PO Q6H PRN PRN Reason: PAIN Last Admin: 07/11/16 20:02 Dose: 325 mg Albuterol/Ipratropium (Duoneb -) 1 amp NEB QIDR [facility] Last Admin: 07/14/16 06:26 Dose: 1 amp Atorvastatin Calcium (Lipitor -) 80 mg PO [facility] Last Admin: 07/13/16 21:43 Dose: 80 mg Budesonide/Formoterol Fumarate (Symbicort 160/4.5mcg -) 2 puff IH BID [facility] Last Admin: 07/13/16 21:46 Dose: 2 puff Clonazepam (Klonopin -) 0.5 mg PO Q12H PRN PRN Reason: ANXIETY Last Admin: 07/13/16 14:08 Dose: 0.5 mg Diltiazem HCl (Cardizem Injection -) 10 mg IVPUSH Q4H PRN PRN Reason: TACHYCARDIA Diltiazem HCl 60 mg/ Diltiazem (HCl 30 mg) 90 mg PO Q6HPO [facility] Last Admin: 07/14/16 06:15 Dose: 90 mg Furosemide (Lasix -) 40 mg PO DAILY [facility] Last Admin: 07/13/16 10:12 Dose: 40 mg Hydralazine HCl (Apresoline -) 10 mg PO TID [facility] Last Admin: 07/14/16 06:16 Dose: 10 mg Insulin Aspart (Novolog Vial Sliding Scale -) 1 vial SQ TIDAC [facility] PRN Reason: Protocol Last Admin: 07/14/16 06:19 Dose: 2 units Insulin Detemir (Levemir Vial) 5 units SQ [facility] Last Admin: 07/13/16 21:42 Dose: 5 units Levofloxacin (Levaquin -) 750 mg PO DAILY [facility] Last Admin: 07/13/16 10:12 Dose: 750 mg Nitroglycerin (Nitrostat -) 0.4 mg SL Q5M PRN PRN Reason: FOR CHEST PAIN Pantoprazole Sodium (Protonix -) 40 mg PO BID [facility] Last Admin: 07/13/16 21:43 Dose: 40 mg Prednisone (Deltasone -) 20 mg PO DAILY [facility] Last Admin: 07/13/16 10:12 Dose: 20 mg - Objective Vital Signs: Vital Signs Temperature 97.8 F 07/14/16 06:00 Pulse Rate 82 07/14/16 06:00 Respiratory Rate 20 07/14/16 06:00 Blood Pressure 136/74 07/14/16 06:00 O2 Sat by Pulse Oximetry (%) 97 07/14/16 06:00 Cardiovascular: Yes: Regular Rate and Rhythm Respiratory: Yes: Other (b/l rhonchi and decreased breath sounds bases.) Gastrointestinal: Yes: Soft Edema: Yes Edema: LLE: 2+, RLE: 2+ Neurological: Yes: Alert Labs: CBC, BMP 07/12/16 05:35 07/12/16 05:35 INR, PTT INR 1.02 (0.82-1.09) 06/09/16 05:05 - ....Imaging EKG: Image Reviewed (TELE: NSR, APCs. 3 beats NSVT) Assessment/Plan Assessment/Plan Recurrent acute respiratory failure requiring re-intubation, refused trach first intubation now extubated on telemetry Bilateral PNA Anemia PSVT and PAF CAD s/p NSTEMI Mild COPD REC: 1.PSVT overall adequately controlled occasional episodes, cont Cardizem 90mg po q6h 2. Holding ASA due to anemia High risk for anticoagulation (for PAF) due to traumatic subdural hematoma and anemia with guaiac + stool. 3. Cont po Lasix, but would titrate to 40mg PO BID as she has developed increased edema and feels slightly more SOB; repeat CXR.
[2016-07-14] MEDS: LEVOFLOXACIN 250 MG TABLET (FP) PO SCH (09:58)
[2016-07-14] MEDS: predniSONE 20 MG TABLET (UD) PO SCH (09:58)
[2016-07-14] MEDS: FUROSEMIDE 40 MG TABLET (FP) PO SCH ×2 (09:58→16:06)
[2016-07-14] MEDS: clonazePAM 0.5 MG TABLET PO PRN ×2 (09:58→17:05)
[2016-07-14] MEDS: BUDESONIDE/FORMETEROL FUMARATE 160/4.5 mcg INHALER IH SCH ×2 (09:59→22:43)
[2016-07-14] MEDS: PANTOPRAZOLE 40 MG TABLET (FP) PO SCH ×2 (09:59→22:43)
[2016-07-14] MEDS ORDERED: FUROSEMIDE 40 MG TABLET (FP) PO ONE (14:35)
--- NOTE | 2016-07-14 14:35 | PN ---
Progress Note (short form) - Note Progress Note: PULMONARY More short of breath today. Currently on nasal cannula but has been on/off BiPAP. Repeat CXR showing increasing congestion. Last Vital Signs Temp Pulse Resp BP Pulse Ox 97.8 F 94 H 20 136/74 95 07/14/16 06:00 07/14/16 11:35 07/14/16 06:00 07/14/16 06:00 07/14/16 11:35 Intake & Output 07/11/16 07/12/16 07/13/16 07/14/16 23:59 23:59 23:59 23:59 Intake Total 240 120 290 550 Balance 240 120 290 550 Weight 132 lb 6.4 oz 131 lb 6.4 oz 124 lb Gen: tachypneic at rest Heart: RRR Lung: scattered rhonchi Abd: soft, nontender Ext: no edema CBC, BMP 07/12/16 05:35 07/12/16 05:35 Active Medications Acetaminophen (Tylenol -) 650 mg PO Q4H PRN PRN Reason: FEVER OR PAIN Last Admin: 07/12/16 09:54 Dose: 650 mg Acetaminophen (Tylenol -) 325 mg PO Q6H PRN PRN Reason: PAIN Last Admin: 07/11/16 20:02 Dose: 325 mg Albuterol/Ipratropium (Duoneb -) 1 amp NEB QIDR [facility] Last Admin: 07/14/16 11:25 Dose: 1 amp Atorvastatin Calcium (Lipitor -) 80 mg PO HS [facility] Last Admin: 07/13/16 21:43 Dose: 80 mg Budesonide/Formoterol Fumarate (Symbicort 160/4.5mcg -) 2 puff IH BID [facility] Last Admin: 07/14/16 09:59 Dose: 2 puff Diltiazem HCl (Cardizem Injection -) 10 mg IVPUSH Q4H PRN PRN Reason: TACHYCARDIA Diltiazem HCl 60 mg/ Diltiazem (HCl 30 mg) 90 mg PO Q6HPO [facility] Last Admin: 07/14/16 11:14 Dose: 90 mg Furosemide (Lasix -) 40 mg PO BID@0600,1400 [facility] Last Admin: 07/14/16 09:58 Dose: 40 mg Hydralazine HCl (Apresoline -) 10 mg PO TID [facility] Last Admin: 07/14/16 06:16 Dose: 10 mg Insulin Aspart (Novolog Vial Sliding Scale -) 1 vial SQ TIDAC [facility] PRN Reason: Protocol Last Admin: 07/14/16 11:14 Dose: 4 units Insulin Detemir (Levemir Vial) 5 units SQ HS [facility] Last Admin: 07/13/16 21:42 Dose: 5 units Levofloxacin (Levaquin -) 750 mg PO DAILY [facility] Last Admin: 07/14/16 09:58 Dose: 750 mg Nitroglycerin (Nitrostat -) 0.4 mg SL Q5M PRN PRN Reason: FOR CHEST PAIN Pantoprazole Sodium (Protonix -) 40 mg PO BID [facility] Last Admin: 07/14/16 09:59 Dose: 40 mg Prednisone (Deltasone -) 20 mg PO DAILY [facility] Last Admin: 07/14/16 09:58 Dose: 20 mg A/P Acute on Chronic Hypoxic and Hypercapneic Respiratory Failure PSVT LV Diastolic Dysfunction Pneumonia - ?Aspiration Acute COPD Exacerbation CAD +Troponins/Acute NSTEMI h/o Breast Ca 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
--- NOTE | 2016-07-14 16:22 | PN ---
Progress Note, Physician History of Present Illness: stable no new issues needs bipap intermittently - Current Medication List Current Medications: Active Medications Acetaminophen (Tylenol -) 650 mg PO Q4H PRN PRN Reason: FEVER OR PAIN Last Admin: 07/12/16 09:54 Dose: 650 mg Acetaminophen (Tylenol -) 325 mg PO Q6H PRN PRN Reason: PAIN Last Admin: 07/11/16 20:02 Dose: 325 mg Albuterol/Ipratropium (Duoneb -) 1 amp NEB QIDR [facility] Last Admin: 07/14/16 11:25 Dose: 1 amp Atorvastatin Calcium (Lipitor -) 80 mg PO HS [facility] Last Admin: 07/13/16 21:43 Dose: 80 mg Budesonide/Formoterol Fumarate (Symbicort 160/4.5mcg -) 2 puff IH BID [facility] Last Admin: 07/14/16 09:59 Dose: 2 puff Diltiazem HCl (Cardizem Injection -) 10 mg IVPUSH Q4H PRN PRN Reason: TACHYCARDIA Diltiazem HCl 60 mg/ Diltiazem (HCl 30 mg) 90 mg PO Q6HPO [facility] Last Admin: 07/14/16 11:14 Dose: 90 mg Furosemide (Lasix -) 40 mg PO BID@0600,1400 [facility] Last Admin: 07/14/16 16:06 Dose: Not Given Hydralazine HCl (Apresoline -) 10 mg PO TID [facility] Last Admin: 07/14/16 16:06 Dose: 10 mg Insulin Aspart (Novolog Vial Sliding Scale -) 1 vial SQ TIDAC [facility] PRN Reason: Protocol Last Admin: 07/14/16 11:14 Dose: 4 units Insulin Detemir (Levemir Vial) 5 units SQ [facility] Last Admin: 07/13/16 21:42 Dose: 5 units Levofloxacin (Levaquin -) 750 mg PO DAILY [facility] Last Admin: 07/14/16 09:58 Dose: 750 mg Nitroglycerin (Nitrostat -) 0.4 mg SL Q5M PRN PRN Reason: FOR CHEST PAIN Pantoprazole Sodium (Protonix -) 40 mg PO BID [facility] Last Admin: 07/14/16 09:59 Dose: 40 mg Prednisone (Deltasone -) 20 mg PO DAILY [facility] Last Admin: 07/14/16 09:58 Dose: 20 mg - Objective Vital Signs: Vital Signs Temperature 98.4 F 07/14/16 14:00 Pulse Rate 96 H 07/14/16 14:00 Respiratory Rate 28 H 07/14/16 14:00 Blood Pressure 129/69 07/14/16 14:00 O2 Sat by Pulse Oximetry (%) 95 07/14/16 11:35 Constitutional: Yes: Anxious Cardiovascular: Yes: Regular Rate and Rhythm Respiratory: Yes: Regular, On BiPap, On Nasal O2, Poor Air Entry Gastrointestinal: Yes: Normal Bowel Sounds, Soft Musculoskeletal: Yes: WNL Extremities: Yes: WNL Neurological: Yes: Alert, Oriented Psychiatric: Yes: Alert, Oriented Labs: CBC, BMP 07/12/16 05:35 07/12/16 05:35 INR, PTT INR 1.02 (0.82-1.09) 06/09/16 05:05 Assessment/Plan Problem List - Problems (1) Aortic stenosis Code(s): I35.0 - NONRHEUMATIC AORTIC (VALVE) STENOSIS (2) History of PSVT (paroxysmal supraventricular tachycardia) Code(s): Z86.79 - PERSONAL HISTORY OF OTHER DISEASES OF THE CIRCULATORY SYSTEM (3) NSTEMI (non-ST elevated myocardial infarction) Code(s): I21.4 - NON-ST ELEVATION (NSTEMI) MYOCARDIAL INFARCTION (4) Respiratory failure Code(s): J96.90 - RESPIRATORY FAILURE, UNSP, UNSP W HYPOXIA OR HYPERCAPNIA Qualifiers: Chronicity: acute Respiratory failure complication: hypoxia and hypercapnia Qualified Code(s): J96.01 - Acute respiratory failure with hypoxia (5) Pulmonary hypertension Code(s): I27.2 - OTHER SECONDARY PULMONARY HYPERTENSION (6) Pulmonary nodules Code(s): R91.8 - OTHER NONSPECIFIC ABNORMAL FINDING OF LUNG FIELD (7) COPD (chronic obstructive pulmonary disease) Code(s): J44.9 - CHRONIC OBSTRUCTIVE PULMONARY DISEASE, UNSPECIFIED (8) History of cigarette smoking Code(s): Z87.891 - PERSONAL HISTORY OF NICOTINE DEPENDENCE (9) Acute on chronic respiratory failure with hypoxia and hypercapnia Code(s): J96.21 - ACUTE AND CHRONIC RESPIRATORY FAILURE WITH HYPOXIA J96.22 - ACUTE AND CHRONIC RESPIRATORY FAILURE WITH HYPERCAPNIAEPENDENCE +Troponins/Acute NSTEMI Lactic Acidosis h/o Breast Ca 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
--- NOTE | 2016-07-14 16:31 | PN ---
Progress Note, Physician History of Present Illness: no complaints - Current Medication List Current Medications: Active Medications Acetaminophen (Tylenol -) 650 mg PO Q4H PRN PRN Reason: FEVER OR PAIN Last Admin: 07/12/16 09:54 Dose: 650 mg Acetaminophen (Tylenol -) 325 mg PO Q6H PRN PRN Reason: PAIN Last Admin: 07/11/16 20:02 Dose: 325 mg Albuterol/Ipratropium (Duoneb -) 1 amp NEB QIDR [facility] Last Admin: 07/14/16 11:25 Dose: 1 amp Atorvastatin Calcium (Lipitor -) 80 mg PO HS [facility] Last Admin: 07/13/16 21:43 Dose: 80 mg Budesonide/Formoterol Fumarate (Symbicort 160/4.5mcg -) 2 puff IH BID [facility] Last Admin: 07/14/16 09:59 Dose: 2 puff Clonazepam (Klonopin -) 0.5 mg PO TID PRN PRN Reason: ANXIETY Diltiazem HCl (Cardizem Injection -) 10 mg IVPUSH Q4H PRN PRN Reason: TACHYCARDIA Diltiazem HCl 60 mg/ Diltiazem (HCl 30 mg) 90 mg PO Q6HPO [facility] Last Admin: 07/14/16 11:14 Dose: 90 mg Furosemide (Lasix -) 40 mg PO BID@0600,1400 [facility] Last Admin: 07/14/16 16:06 Dose: Not Given Hydralazine HCl (Apresoline -) 10 mg PO TID [facility] Last Admin: 07/14/16 16:06 Dose: 10 mg Insulin Aspart (Novolog Vial Sliding Scale -) 1 vial SQ TIDAC [facility] PRN Reason: Protocol Last Admin: 07/14/16 11:14 Dose: 4 units Insulin Detemir (Levemir Vial) 5 units SQ [facility] Last Admin: 07/13/16 21:42 Dose: 5 units Levofloxacin (Levaquin -) 750 mg PO DAILY [facility] Last Admin: 07/14/16 09:58 Dose: 750 mg Nitroglycerin (Nitrostat -) 0.4 mg SL Q5M PRN PRN Reason: FOR CHEST PAIN Pantoprazole Sodium (Protonix -) 40 mg PO BID [facility] Last Admin: 07/14/16 09:59 Dose: 40 mg Prednisone (Deltasone -) 20 mg PO DAILY [facility] Last Admin: 07/14/16 09:58 Dose: 20 mg - Objective Vital Signs: Vital Signs Temperature 98.4 F 07/14/16 14:00 Pulse Rate 96 H 07/14/16 14:00 Respiratory Rate 28 H 07/14/16 14:00 Blood Pressure 129/69 07/14/16 14:00 O2 Sat by Pulse Oximetry (%) 95 07/14/16 11:35 Constitutional: Yes: No Distress HENT: Yes: Atraumatic Neck: Yes: Supple Cardiovascular: Yes: Regular Rate and Rhythm Respiratory: Yes: Rales, Rhonchi Gastrointestinal: Yes: Normal Bowel Sounds Extremities: Yes: WNL Neurological: Yes: Alert, Oriented Labs: CBC, BMP 07/12/16 05:35 07/12/16 05:35 INR, PTT INR 1.02 (0.82-1.09) 06/09/16 05:05 Problem List - Problems (1) Respiratory failure Assessment/Plan: on bipap/nc prn apiration pna on abx..po on steroids..taper Code(s): J96.90 - RESPIRATORY FAILURE, UNSP, UNSP W HYPOXIA OR HYPERCAPNIA Qualifiers: Chronicity: acute Respiratory failure complication: hypoxia and hypercapnia Qualified Code(s): J96.01 - Acute respiratory failure with hypoxia (2) Chronic respiratory failure with hypoxia Assessment/Plan: duo nebs steroids Code(s): J96.11 - CHRONIC RESPIRATORY FAILURE WITH HYPOXIA (3) CAD (coronary artery disease) Assessment/Plan: on meds follow up labs continue current meds Code(s): I25.10 - ATHSCL HEART DISEASE OF [place] CORONARY ARTERY W/O ANG PCTRS (4) COPD (chronic obstructive pulmonary disease) Assessment/Plan: on meds stable steroids duo nebs Code(s): J44.9 - CHRONIC OBSTRUCTIVE PULMONARY DISEASE, UNSPECIFIED (5) Chronic diastolic CHF (congestive heart failure) Assessment/Plan: stable on meds Code(s): I50.32 - CHRONIC DIASTOLIC (CONGESTIVE) HEART FAILURE (6) HLD (hyperlipidemia) Assessment/Plan: on meds Code(s): E78.5 - HYPERLIPIDEMIA, UNSPECIFIED Qualifiers: Hyperlipidemia type: unspecified Qualified Code(s): E78.5 - Hyperlipidemia, unspecified (7) HTN (hypertension) Assessment/Plan: on meds stable Code(s): I10 - ESSENTIAL (PRIMARY) HYPERTENSION Qualifiers: Hypertension type: essential hypertension Qualified Code(s): I10 - Essential (primary) hypertension (8) History of cigarette smoking Code(s): Z87.891 - PERSONAL HISTORY OF NICOTINE DEPENDENCE (9) Influenza Code(s): J11.1 - FLU DUE TO UNIDENTIFIED INFLUENZA VIRUS W OTH RESP MANIFEST (10) Acute on chronic respiratory failure with hypoxia and hypercapnia Code(s): J96.21 - ACUTE AND CHRONIC RESPIRATORY FAILURE WITH HYPOXIA J96.22 - ACUTE AND CHRONIC RESPIRATORY FAILURE WITH HYPERCAPNIA (11) History of PSVT (paroxysmal supraventricular tachycardia) Code(s): Z86.79 - PERSONAL HISTORY OF OTHER DISEASES OF THE CIRCULATORY SYSTEM (12) Anemia Code(s): D64.9 - ANEMIA, UNSPECIFIED (13) NSTEMI (non-ST elevated myocardial infarction) Code(s): I21.4 - NON-ST ELEVATION (NSTEMI) MYOCARDIAL INFARCTION (14) GI (gastrointestinal bleed) Code(s): K92.2 - GASTROINTESTINAL HEMORRHAGE, UNSPECIFIED Assessment/Plan 1.+Influenza treated 2.Acute respiratory failure ON FACE MASK RLL INFILTERATE ON ABX AND DUO NEBS 3.ANEMIA STABLE 4.NSTEMI 5.History breast cancer, lung mass with negative bx 6.COPD, chronic with chronic hypoxemia 7.chf STABLE 8.LOWER GI BLEED...stable s/p blood transfusion FU CBC IV PROTONIX BID 9.DYSPHAGIA REFUSING BARIUM SWALLOW ON DYSPAGIA DIET pt now on prednisone 20 mg po daily 1 week, then 10 mg po daily 1 week should be assesed then by pulmonary/md NOTES REVIEWED ABOUT DC PLANNING TO SNF
[2016-07-14] MEDS: ATORVASTATIN CA 80 MG TABLET (FP) PO SCH (22:43)
[2016-07-14] MEDS: INSULIN DETEMIR 100 UNITS/ML MDV SQ SCH (22:45)
[2016-07-15] MEDS: clonazePAM 0.5 MG TABLET PO PRN ×4 (01:49→22:46)
[2016-07-15] MEDS ORDERED: dilTIAZem HCL 60 MG TABLET (FP) ONE ×4 (06:20→22:48)
[2016-07-15] MEDS: FUROSEMIDE 40 MG TABLET (FP) PO SCH ×2 (06:21→14:06)
[2016-07-15] MEDS: DILTIAZEM 60 MG, DILTIAZEM 30 MG PO SCH ×5 (06:21→23:31)
[2016-07-15] MEDS: hydrALAZINE HCL 10 MG TABLET PO SCH ×3 (06:21→22:46)
[2016-07-15] MEDS ORDERED: dilTIAZem HCL 30 MG TABLET (FP) ONE ×4 (06:21→22:48)
[2016-07-15] MEDS: INSULIN SLIDING SCALE (NOVOLOG) 1 VIAL SQ SCH ×3 (06:28→17:36)
--- NOTE | 2016-07-15 09:22 | PN ---
Progress Note, Physician Chief Complaint: feels slightly better today TELE: NSR - Current Medication List Current Medications: Active Medications Acetaminophen (Tylenol -) 650 mg PO Q4H PRN PRN Reason: FEVER OR PAIN Last Admin: 07/12/16 09:54 Dose: 650 mg Acetaminophen (Tylenol -) 325 mg PO Q6H PRN PRN Reason: PAIN Last Admin: 07/11/16 20:02 Dose: 325 mg Albuterol/Ipratropium (Duoneb -) 1 amp NEB QIDR [facility] Last Admin: 07/14/16 23:57 Dose: 1 amp Atorvastatin Calcium (Lipitor -) 80 mg PO [facility] Last Admin: 07/14/16 22:43 Dose: 80 mg Budesonide/Formoterol Fumarate (Symbicort 160/4.5mcg -) 2 puff IH BID [facility] Last Admin: 07/14/16 22:43 Dose: 2 puff Clonazepam (Klonopin -) 0.5 mg PO TID PRN PRN Reason: ANXIETY Last Admin: 07/15/16 01:49 Dose: 0.5 mg Diltiazem HCl (Cardizem Injection -) 10 mg IVPUSH Q4H PRN PRN Reason: TACHYCARDIA Diltiazem HCl 60 mg/ Diltiazem (HCl 30 mg) 90 mg PO Q6HPO [facility] Last Admin: 07/15/16 06:21 Dose: 90 mg Furosemide (Lasix -) 40 mg PO BID@0600,1400 [facility] Last Admin: 07/15/16 06:21 Dose: 40 mg Hydralazine HCl (Apresoline -) 10 mg PO TID [facility] Last Admin: 07/15/16 06:21 Dose: 10 mg Insulin Aspart (Novolog Vial Sliding Scale -) 1 vial SQ TIDAC [facility] PRN Reason: Protocol Last Admin: 07/15/16 06:28 Dose: 8 units Insulin Detemir (Levemir Vial) 5 units SQ [facility] Last Admin: 07/14/16 22:45 Dose: 5 units Levofloxacin (Levaquin -) 750 mg PO DAILY [facility] Last Admin: 07/14/16 09:58 Dose: 750 mg Nitroglycerin (Nitrostat -) 0.4 mg SL Q5M PRN PRN Reason: FOR CHEST PAIN Pantoprazole Sodium (Protonix -) 40 mg PO BID [facility] Last Admin: 07/14/16 22:43 Dose: 40 mg Prednisone (Deltasone -) 20 mg PO DAILY [facility] Last Admin: 07/14/16 09:58 Dose: 20 mg - Objective Vital Signs: Vital Signs Temperature 98.3 F 07/15/16 06:00 Pulse Rate 86 07/15/16 06:00 Respiratory Rate 19 07/15/16 06:00 Blood Pressure 136/57 07/15/16 06:00 O2 Sat by Pulse Oximetry (%) 100 07/15/16 06:00 Constitutional: Yes: No Distress Cardiovascular: Yes: Regular Rate and Rhythm Respiratory: Yes: Other (decreased breath sounds at bases; scattered rhonchi) Gastrointestinal: Yes: Soft Edema: No Labs: CBC, BMP 07/12/16 05:35 07/12/16 05:35 INR, PTT INR 1.02 (0.82-1.09) 06/09/16 05:05 Assessment/Plan Assessment/Plan Recurrent acute respiratory failure requiring re-intubation, refused trach first intubation now extubated on telemetry Bilateral PNA Anemia PSVT and PAF CAD s/p NSTEMI Mild COPD REC: 1.PSVT overall adequately controlled occasional episodes, cont Cardizem 90mg po q6h 2. Holding ASA due to anemia High risk for anticoagulation (for PAF) due to traumatic subdural hematoma and anemia with guaiac + stool. 3. Cont po Lasix 40mg PO BID.
[2016-07-15] MEDS: LEVOFLOXACIN 250 MG TABLET (FP) PO SCH (09:49)
[2016-07-15] MEDS: ACETAMINOPHEN 325 MG TABLET (FP) PO PRN ×2 (09:49→18:26)
[2016-07-15] MEDS: PANTOPRAZOLE 40 MG TABLET (FP) PO SCH ×2 (09:50→22:46)
[2016-07-15] MEDS: predniSONE 20 MG TABLET (UD) PO SCH (09:50)
--- NOTE | 2016-07-15 11:28 | PN ---
Progress Note (short form) - Note Progress Note: PULMONARY NO OVERALL CHANGE IN PROGRESSIVE [place] COURSE WOULD SUGGEST PALLIATIVE CARE Acute on Chronic Hypoxic and Hypercapneic Respiratory Failure improved Influenza A s/p treatment Pneumonia - ?Aspiration Acute COPD Exacerbation CAD +Troponins/Acute NSTEMI h/o Breast Ca Lung Nodules with recent biopsy showing necrotizing granulomas Smoker - PO ABX per ID - Prednisone - inhaled bronchodilators - ASA - lasix - NIPPV - PO as tolerated - DVT/GI prophylaxis - High risk for repeat intubation and decompensation due to her overall medical condition Jory GHOSH MD
[2016-07-15] MEDS: ALBUTEROL SO4 2.5/IPRATROPIUM 0.5 INH SOL 3 ML VIAL.NEB. NEB SCH ×3 (11:35→23:11)
--- NOTE | 2016-07-15 11:37 | PN ---
Progress Note, ESTIMATOR - Note Progress Note: Selected Entries 07/14/16 07/14/16 07/14/16 02:00 06:00 10:00 Breakfast 100% Lunch Supper Temperature 98.3 F 97.8 F 98.1 F 07/14/16 07/14/16 07/14/16 11:48 14:00 18:00 Breakfast 100% Lunch 100% Supper 100% Temperature 98.4 F 98.2 F 07/14/16 07/15/16 07/15/16 22:00 02:00 06:00 Breakfast Lunch Supper Temperature 98.5 F 98.0 F 98.3 F 07/15/16 09:00 Breakfast Lunch Supper Temperature 97.6 F Eating more. Pt is a full code. Concur with palliative care f/u.
[2016-07-15] MEDS: BUDESONIDE/FORMETEROL FUMARATE 160/4.5 mcg INHALER IH SCH ×2 (12:04→22:47)
--- NOTE | 2016-07-15 12:12 | DS ---
Physical Examination Vital Signs: Vital Signs Temperature 97.6 F 07/15/16 09:00 Pulse Rate 87 07/15/16 09:00 Respiratory Rate 19 07/15/16 09:00 Blood Pressure 119/55 07/15/16 09:00 O2 Sat by Pulse Oximetry (%) 93 L 07/15/16 10:00 Constitutional: Yes: No Distress HENT: Yes: Atraumatic Cardiovascular: Yes: Regular Rate and Rhythm Respiratory: Yes: Rhonchi Gastrointestinal: Yes: Normal Bowel Sounds Extremities: Yes: WNL Neurological: Yes: Alert, Oriented Labs: CBC, BMP 07/12/16 05:35 07/12/16 05:35 Discharge Summary Reason For Visit: CHRONIC RESPIRATORY FAILURE WITH HYPOXIA Current Active Problems Acute on chronic respiratory failure with hypoxia and hypercapnia (Acute) Anemia (Acute) Aortic stenosis (Acute) GI (gastrointestinal bleed) (Acute) History of PSVT (paroxysmal supraventricular tachycardia) (Acute) Influenza (Acute) NSTEMI (non-ST elevated myocardial infarction) (Acute) Respiratory failure (Acute) Chronic respiratory failure with hypoxia (Chronic) Condition: Critical - Instructions Diet, Activity, Other Instructions: pt now on prednisone 20 mg po daily 1 week, then 10 mg po daily 1 week should be assesed then by pulmonary/md continue levaquin for 7 more days..then assess the patient Referrals: [facility] [Resident] - 1 Week - Home Medications Comprehensive Discharge Medication List: Ambulatory Orders Albuterol Sulfate [Proair Hfa -] 2 inh PO BID 06/14/14 Nitroglycerin Sublingual [Nitrostat -] 0.4 mg SL Q5M PRN #30 tab 02/22/16 Albuterol 2.5/Ipratropium 0.5 [Duoneb -] 1 amp NEB QIDR amp 07/08/16 Atorvastatin Ca [Lipitor] 80 mg PO HS tablet 07/08/16 Budesonide/Formeterol Fumarate [SYMBICORT 160/4.5mcg -] 2 puff IH BID inhaler 07/08/16 Diltiazem [Cardizem -] 90 mg PO Q6HPO tablet 07/08/16 Insulin (Levemir) [Levemir Vial] 5 units SQ HS ml 07/08/16 Pantoprazole Sodium [Protonix -] 40 mg PO BID #30 bottle 07/08/16 Clonazepam [Klonopin -] 0.5 mg PO Q12H PRN #0 tablet MDD 2 07/11/16 Hydralazine HCl [Apresoline -] 10 mg PO TID tablet 07/11/16 Levofloxacin [Levaquin -] 750 mg PO DAILY #7 tablet 07/11/16 Furosemide [Lasix -] 40 mg PO BID@0600,1400 tablet 07/15/16 dc to snf
[2016-07-15] MEDS: INSULIN DETEMIR 100 UNITS/ML MDV SQ SCH (22:46)
[2016-07-15] MEDS: ATORVASTATIN CA 80 MG TABLET (FP) PO SCH (22:46)
[2016-07-16] MEDS: ACETAMINOPHEN 325 MG TABLET (FP) PO PRN (01:37)
[2016-07-16] MEDS ORDERED: dilTIAZem HCL 60 MG TABLET (FP) ONE ×3 (06:06→16:51)
[2016-07-16] MEDS ORDERED: dilTIAZem HCL 30 MG TABLET (FP) ONE ×3 (06:06→16:51)
[2016-07-16] MEDS: FUROSEMIDE 40 MG TABLET (FP) PO SCH ×2 (06:15→14:33)
[2016-07-16] MEDS: hydrALAZINE HCL 10 MG TABLET PO SCH ×3 (06:15→21:07)
[2016-07-16] MEDS: DILTIAZEM 60 MG, DILTIAZEM 30 MG PO SCH ×3 (06:16→17:23)
[2016-07-16] MEDS: INSULIN SLIDING SCALE (NOVOLOG) 1 VIAL SQ SCH ×3 (06:16→17:24)
[2016-07-16] MEDS: ALBUTEROL SO4 2.5/IPRATROPIUM 0.5 INH SOL 3 ML VIAL.NEB. NEB SCH ×4 (06:20→23:17)
[2016-07-16] MEDS: LEVOFLOXACIN 250 MG TABLET (FP) PO SCH (09:49)
[2016-07-16] MEDS: BUDESONIDE/FORMETEROL FUMARATE 160/4.5 mcg INHALER IH SCH ×2 (09:50→21:07)
[2016-07-16] MEDS: PANTOPRAZOLE 40 MG TABLET (FP) PO SCH ×2 (09:50→21:07)
[2016-07-16] MEDS: predniSONE 20 MG TABLET (UD) PO SCH (09:50)
[2016-07-16] MEDS: clonazePAM 0.5 MG TABLET PO PRN ×2 (09:54→18:21)
--- NOTE | 2016-07-16 13:32 | PN ---
Progress Note, Physician History of Present Illness: stable no new issues - Current Medication List Current Medications: Active Medications Acetaminophen (Tylenol -) 650 mg PO Q4H PRN PRN Reason: FEVER OR PAIN Last Admin: 07/16/16 01:37 Dose: 650 mg Acetaminophen (Tylenol -) 325 mg PO Q6H PRN PRN Reason: PAIN Last Admin: 07/11/16 20:02 Dose: 325 mg Albuterol/Ipratropium (Duoneb -) 1 amp NEB QIDR [facility] Last Admin: 07/16/16 11:53 Dose: 1 amp Atorvastatin Calcium (Lipitor -) 80 mg PO [facility] Last Admin: 07/15/16 22:46 Dose: 80 mg Budesonide/Formoterol Fumarate (Symbicort 160/4.5mcg -) 2 puff IH BID [facility] Last Admin: 07/16/16 09:50 Dose: 2 puff Clonazepam (Klonopin -) 0.5 mg PO TID PRN PRN Reason: ANXIETY Last Admin: 07/16/16 09:54 Dose: 0.5 mg Diltiazem HCl (Cardizem Injection -) 10 mg IVPUSH Q4H PRN PRN Reason: TACHYCARDIA Diltiazem HCl 60 mg/ Diltiazem (HCl 30 mg) 90 mg PO Q6HPO [facility] Last Admin: 07/16/16 12:22 Dose: 90 mg Furosemide (Lasix -) 40 mg PO BID@0600,1400 [facility] Last Admin: 07/16/16 06:15 Dose: 40 mg Hydralazine HCl (Apresoline -) 10 mg PO TID [facility] Last Admin: 07/16/16 06:15 Dose: 10 mg Insulin Aspart (Novolog Vial Sliding Scale -) 1 vial SQ TIDAC [facility] PRN Reason: Protocol Last Admin: 07/16/16 12:22 Dose: 8 units Insulin Detemir (Levemir Vial) 5 units SQ [facility] Last Admin: 07/15/16 22:46 Dose: 5 units Levofloxacin (Levaquin -) 750 mg PO DAILY [facility] Last Admin: 07/16/16 09:49 Dose: 750 mg Nitroglycerin (Nitrostat -) 0.4 mg SL Q5M PRN PRN Reason: FOR CHEST PAIN Pantoprazole Sodium (Protonix -) 40 mg PO BID [facility] Last Admin: 07/16/16 09:50 Dose: 40 mg Prednisone (Deltasone -) 20 mg PO DAILY [facility] Last Admin: 07/16/16 09:50 Dose: 20 mg - Objective Vital Signs: Vital Signs Temperature 98.2 F 07/16/16 09:00 Pulse Rate 102 H 07/16/16 09:00 Respiratory Rate 22 07/16/16 09:00 Blood Pressure 128/72 07/16/16 09:00 O2 Sat by Pulse Oximetry (%) 100 07/16/16 01:40 Constitutional: Yes: No Distress, Calm Cardiovascular: Yes: Regular Rate and Rhythm Respiratory: Yes: Regular, CTA Bilaterally Gastrointestinal: Yes: Normal Bowel Sounds, Soft Musculoskeletal: Yes: WNL Extremities: Yes: WNL Neurological: Yes: Alert, Oriented Psychiatric: Yes: Alert Labs: CBC, BMP 07/12/16 05:35 07/12/16 05:35 INR, PTT INR 1.02 (0.82-1.09) 06/09/16 05:05 Assessment/Plan Problem List - Problems (1) Aortic stenosis Code(s): I35.0 - NONRHEUMATIC AORTIC (VALVE) STENOSIS (2) History of PSVT (paroxysmal supraventricular tachycardia) Code(s): Z86.79 - PERSONAL HISTORY OF OTHER DISEASES OF THE CIRCULATORY SYSTEM (3) NSTEMI (non-ST elevated myocardial infarction) Code(s): I21.4 - NON-ST ELEVATION (NSTEMI) MYOCARDIAL INFARCTION (4) Respiratory failure Code(s): J96.90 - RESPIRATORY FAILURE, UNSP, UNSP W HYPOXIA OR HYPERCAPNIA Qualifiers: Chronicity: acute Respiratory failure complication: hypoxia and hypercapnia Qualified Code(s): J96.01 - Acute respiratory failure with hypoxia (5) Pulmonary hypertension Code(s): I27.2 - OTHER SECONDARY PULMONARY HYPERTENSION (6) Pulmonary nodules Code(s): R91.8 - OTHER NONSPECIFIC ABNORMAL FINDING OF LUNG FIELD (7) COPD (chronic obstructive pulmonary disease) Code(s): J44.9 - CHRONIC OBSTRUCTIVE PULMONARY DISEASE, UNSPECIFIED (8) History of cigarette smoking Code(s): Z87.891 - PERSONAL HISTORY OF NICOTINE DEPENDENCE (9) Acute on chronic respiratory failure with hypoxia and hypercapnia Code(s): J96.21 - ACUTE AND CHRONIC RESPIRATORY FAILURE WITH HYPOXIA J96.22 - ACUTE AND CHRONIC RESPIRATORY FAILURE WITH HYPERCAPNIAEPENDENCE +Troponins/Acute NSTEMI Lactic Acidosis h/o Breast Ca 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
--- NOTE | 2016-07-16 13:33 | PN ---
Progress Note, Physician History of Present Illness: stable no new issues plan for rehab - Current Medication List Current Medications: Active Medications Acetaminophen (Tylenol -) 650 mg PO Q4H PRN PRN Reason: FEVER OR PAIN Last Admin: 07/16/16 01:37 Dose: 650 mg Acetaminophen (Tylenol -) 325 mg PO Q6H PRN PRN Reason: PAIN Last Admin: 07/11/16 20:02 Dose: 325 mg Albuterol/Ipratropium (Duoneb -) 1 amp NEB QIDR [facility] Last Admin: 07/16/16 11:53 Dose: 1 amp Atorvastatin Calcium (Lipitor -) 80 mg PO [facility] Last Admin: 07/15/16 22:46 Dose: 80 mg Budesonide/Formoterol Fumarate (Symbicort 160/4.5mcg -) 2 puff IH BID [facility] Last Admin: 07/16/16 09:50 Dose: 2 puff Clonazepam (Klonopin -) 0.5 mg PO TID PRN PRN Reason: ANXIETY Last Admin: 07/16/16 09:54 Dose: 0.5 mg Diltiazem HCl (Cardizem Injection -) 10 mg IVPUSH Q4H PRN PRN Reason: TACHYCARDIA Diltiazem HCl 60 mg/ Diltiazem (HCl 30 mg) 90 mg PO Q6HPO [facility] Last Admin: 07/16/16 12:22 Dose: 90 mg Furosemide (Lasix -) 40 mg PO BID@0600,1400 [facility] Last Admin: 07/16/16 06:15 Dose: 40 mg Hydralazine HCl (Apresoline -) 10 mg PO TID [facility] Last Admin: 07/16/16 06:15 Dose: 10 mg Insulin Aspart (Novolog Vial Sliding Scale -) 1 vial SQ TIDAC [facility] PRN Reason: Protocol Last Admin: 07/16/16 12:22 Dose: 8 units Insulin Detemir (Levemir Vial) 5 units SQ [facility] Last Admin: 07/15/16 22:46 Dose: 5 units Levofloxacin (Levaquin -) 750 mg PO DAILY [facility] Last Admin: 07/16/16 09:49 Dose: 750 mg Nitroglycerin (Nitrostat -) 0.4 mg SL Q5M PRN PRN Reason: FOR CHEST PAIN Pantoprazole Sodium (Protonix -) 40 mg PO BID [facility] Last Admin: 07/16/16 09:50 Dose: 40 mg Prednisone (Deltasone -) 20 mg PO DAILY [facility] Last Admin: 07/16/16 09:50 Dose: 20 mg - Objective Vital Signs: Vital Signs Temperature 98.2 F 07/16/16 09:00 Pulse Rate 102 H 07/16/16 09:00 Respiratory Rate 22 07/16/16 09:00 Blood Pressure 128/72 07/16/16 09:00 O2 Sat by Pulse Oximetry (%) 100 07/16/16 01:40 Constitutional: Yes: No Distress, Calm Cardiovascular: Yes: Regular Rate and Rhythm Respiratory: Yes: Regular, Other Gastrointestinal: Yes: Normal Bowel Sounds, Soft Musculoskeletal: Yes: Other Extremities: Yes: Other Neurological: Yes: Alert, Oriented Psychiatric: Yes: Alert Labs: CBC, BMP 07/12/16 05:35 07/12/16 05:35 INR, PTT INR 1.02 (0.82-1.09) 06/09/16 05:05 Assessment/Plan Problem List - Problems (1) Aortic stenosis Code(s): I35.0 - NONRHEUMATIC AORTIC (VALVE) STENOSIS (2) History of PSVT (paroxysmal supraventricular tachycardia) Code(s): Z86.79 - PERSONAL HISTORY OF OTHER DISEASES OF THE CIRCULATORY SYSTEM (3) NSTEMI (non-ST elevated myocardial infarction) Code(s): I21.4 - NON-ST ELEVATION (NSTEMI) MYOCARDIAL INFARCTION (4) Respiratory failure Code(s): J96.90 - RESPIRATORY FAILURE, UNSP, UNSP W HYPOXIA OR HYPERCAPNIA Qualifiers: Chronicity: acute Respiratory failure complication: hypoxia and hypercapnia Qualified Code(s): J96.01 - Acute respiratory failure with hypoxia (5) Pulmonary hypertension Code(s): I27.2 - OTHER SECONDARY PULMONARY HYPERTENSION (6) Pulmonary nodules Code(s): R91.8 - OTHER NONSPECIFIC ABNORMAL FINDING OF LUNG FIELD (7) COPD (chronic obstructive pulmonary disease) Code(s): J44.9 - CHRONIC OBSTRUCTIVE PULMONARY DISEASE, UNSPECIFIED (8) History of cigarette smoking Code(s): Z87.891 - PERSONAL HISTORY OF NICOTINE DEPENDENCE (9) Acute on chronic respiratory failure with hypoxia and hypercapnia Code(s): J96.21 - ACUTE AND CHRONIC RESPIRATORY FAILURE WITH HYPOXIA J96.22 - ACUTE AND CHRONIC RESPIRATORY FAILURE WITH HYPERCAPNIAEPENDENCE +Troponins/Acute NSTEMI Lactic Acidosis h/o Breast Ca 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 abx for another 7days and stop it
--- NOTE | 2016-07-16 13:35 | PN ---
Progress Note, Physician Chief Complaint: Pt is alert; anxious; wants to be discharged home (but has no one at home to take care of her?). History of Present Illness: The patient is a 75 year old black female, with a significant past medical history of hypertension, hyperlipidemia, chronic bronchitis, COPD and left breast CA s/p radiation therapy, who presents to the emergency department via EMS intubated in respiratory arrest. This patient was most recently seen in this ED on 05/20/2016 for shortness of breath and chest pain, was admitted and discharged 3 days ago (05/28/2016). EMS reports that this afternoon, the patient was feeling short of breath and initiated EMS herself from home. EMS reports that upon arrival to the scene, the patient was wheezing with rhonchi and was hypoxic to the 80s. She was subsequently given nebs, steroids, mags and was put on CPAP. She then began to deteriorate with altered mental status so she was intubated with etomidate and succinylcholine. The patient arrives to the ED intubated. Allergies: None reported. Past Surgical History: Right Foot Surgery. Social History: Current smoker. Denies alcohol or drug use. 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 Last Admin: 07/16/16 11:53 Dose: 1 amp Atorvastatin Calcium (Lipitor -) [address] [facility] Last Admin: 07/15/16 22:46 Dose: 80 mg Budesonide/Formoterol Fumarate (Symbicort 160/4.5mcg -) [address] [facility] Last Admin: 07/16/16 09:50 Dose: 2 puff Clonazepam (Klonopin -) 0.5 mg PO TID PRN PRN Reason: ANXIETY Last Admin: 07/16/16 09:54 Dose: 0.5 mg Diltiazem HCl (Cardizem Injection -) 10 mg IVPUSH Q4H PRN PRN Reason: TACHYCARDIA Diltiazem HCl 60 mg/ Diltiazem (HCl 30 mg) [address] [facility] Last Admin: 07/16/16 12:22 Dose: 90 mg Furosemide (Lasix -) 40 mg PO BID@0600,1400 [facility] Last Admin: 07/16/16 06:15 Dose: 40 mg Hydralazine HCl (Apresoline -) [address] [facility] Last Admin: 07/16/16 06:15 Dose: 10 mg Insulin Aspart (Novolog Vial Sliding Scale -) [address] [facility] PRN Reason: Protocol Last Admin: 07/16/16 12:22 Dose: 8 units Insulin Detemir (Levemir Vial) [address] [facility] Last Admin: 07/15/16 22:46 Dose: 5 units Levofloxacin (Levaquin -) [address] [facility] Last Admin: 07/16/16 09:49 Dose: 750 mg Nitroglycerin (Nitrostat -) 0.4 mg SL Q5M PRN PRN Reason: FOR CHEST PAIN Pantoprazole Sodium (Protonix -) [address] [facility] Last Admin: 07/16/16 09:50 Dose: 40 mg Prednisone (Deltasone -) [address] [facility] Last Admin: 07/16/16 09:50 Dose: 20 mg - Objective Vital Signs: Vital Signs Temperature 98.2 F 07/16/16 09:00 Pulse Rate 102 H 07/16/16 09:00 Respiratory Rate 22 07/16/16 09:00 Blood Pressure 128/72 07/16/16 09:00 O2 Sat by Pulse Oximetry (%) 100 07/16/16 01:40 Constitutional: Yes: Anxious Eyes: Yes: WNL HENT: Yes: WNL Neck: Yes: WNL Cardiovascular: Yes: Pulse Irregular Respiratory: Yes: Diminished, SOB on Exertion Gastrointestinal: Yes: Soft ...Rectal Exam: Yes: Deferred Genitourinary: No: Anuria Musculoskeletal: Yes: Muscle Weakness Extremities: Yes: Cool Edema: No Peripheral Pulses WNL: No Peripheral Pulses: Left Doralis Pedis: 1+, Right Dorsalis Pedis: 1+ Neurological: Yes: Weakness Psychiatric: Yes: Other Labs: CBC, BMP 07/12/16 05:35 07/12/16 05:35 INR, PTT INR 1.02 (0.82-1.09) 06/09/16 05:05 - ....Imaging Chest X-ray: Image Reviewed Problem List - Problems (1) Influenza Code(s): J11.1 - FLU DUE TO UNIDENTIFIED INFLUENZA VIRUS W OTH RESP MANIFEST (2) Respiratory failure Assessment/Plan: dyspneic on minimal exertion. On bronchodilators, steroid, O2, antibiotics; f/u with pulmonary and ID. BP control. PSVT. CXR pending. Code(s): J96.90 - RESPIRATORY FAILURE, UNSP, UNSP W HYPOXIA OR HYPERCAPNIA Qualifiers: Chronicity: acute Respiratory failure complication: hypoxia and hypercapnia Qualified Code(s): J96.01 - Acute respiratory failure with hypoxia (3) Pulmonary hypertension Code(s): I27.2 - OTHER SECONDARY PULMONARY HYPERTENSION (4) Acute on chronic diastolic CHF (congestive heart failure) Assessment/Plan: now on enalapril for HTN, CHF; f/u BP, BUN/Cr, electrolytes. TSH (and free T3) low 09/25; repeat levels. Code(s): I50.33 - ACUTE ON CHRONIC DIASTOLIC (CONGESTIVE) HEART FAILURE (5) Breast CA Code(s): C50.919 - MALIGNANT NEOPLASM OF UNSP SITE OF UNSPECIFIED FEMALE BREAST Qualifiers: Laterality: unspecified laterality (6) COPD (chronic obstructive pulmonary disease) Code(s): J44.9 - CHRONIC OBSTRUCTIVE PULMONARY DISEASE, UNSPECIFIED (7) HLD (hyperlipidemia) Assessment/Plan: LDL > 160 mg/Dl in 2016; f/u lipid panel. (On atorvastatin 80 mg daily). Code(s): E78.5 - HYPERLIPIDEMIA, UNSPECIFIED Qualifiers: Hyperlipidemia type: unspecified Qualified Code(s): E78.5 - Hyperlipidemia, unspecified (8) HTN (hypertension) Assessment/Plan: On diltiazem (increased 06/18/16), enalapril, and hydralazine. Code(s): I10 - ESSENTIAL (PRIMARY) HYPERTENSION Qualifiers: Hypertension type: essential hypertension Qualified Code(s): I10 - Essential (primary) hypertension (9) History of breast cancer Code(s): Z85.3 - PERSONAL HISTORY OF MALIGNANT NEOPLASM OF BREAST (10) History of cigarette smoking Assessment/Plan: continue nicotine patch. Code(s): Z87.891 - PERSONAL HISTORY OF NICOTINE DEPENDENCE (11) NSTEMI (non-ST elevated myocardial infarction) Assessment/Plan: On ASA, atorvastatin (LDL was 164 mg/dL); now on enalapril for HTN, NSTEMI. Consider coronary angiogram when stable. Code(s): I21.4 - NON-ST ELEVATION (NSTEMI) MYOCARDIAL INFARCTION (12) Aortic stenosis Code(s): I35.0 - NONRHEUMATIC AORTIC (VALVE) STENOSIS (13) History of PSVT (paroxysmal supraventricular tachycardia) Assessment/Plan: Recurrent PSVT. On diltiazem 90 q6 hrs. EKG: NSR; chronic lateral wall changes: r/o ischemia. BMP and electgrolytes WNL. Mildly decreased T3. Code(s): Z86.79 - PERSONAL HISTORY OF OTHER DISEASES OF THE CIRCULATORY SYSTEM
[2016-07-16 16:13] LABS: CHOLESTEROL 142 mg/dL (50-200); LDL CHOLESTEROL (ONLY SJRH) 67 mg/dL (5-100)
--- NOTE | 2016-07-16 17:22 | PN ---
Progress Note, Physician History of Present Illness: refusing to go to snf - Current Medication List Current Medications: Active Medications Acetaminophen (Tylenol -) 650 mg PO Q4H PRN PRN Reason: FEVER OR PAIN Last Admin: 07/16/16 01:37 Dose: 650 mg Acetaminophen (Tylenol -) 325 mg PO Q6H PRN PRN Reason: PAIN Last Admin: 07/11/16 20:02 Dose: 325 mg Albuterol/Ipratropium (Duoneb -) 1 amp NEB QIDR [facility] Last Admin: 07/16/16 11:53 Dose: 1 amp Atorvastatin Calcium (Lipitor -) 80 mg PO [facility] Last Admin: 07/15/16 22:46 Dose: 80 mg Budesonide/Formoterol Fumarate (Symbicort 160/4.5mcg -) 2 puff IH BID [facility] Last Admin: 07/16/16 09:50 Dose: 2 puff Clonazepam (Klonopin -) 0.5 mg PO TID PRN PRN Reason: ANXIETY Last Admin: 07/16/16 09:54 Dose: 0.5 mg Diltiazem HCl (Cardizem Injection -) 10 mg IVPUSH Q4H PRN PRN Reason: TACHYCARDIA Diltiazem HCl 60 mg/ Diltiazem (HCl 30 mg) 90 mg PO Q6HPO [facility] Last Admin: 07/16/16 12:22 Dose: 90 mg Furosemide (Lasix -) 40 mg PO BID@0600,1400 [facility] Last Admin: 07/16/16 14:33 Dose: 40 mg Hydralazine HCl (Apresoline -) 10 mg PO TID [facility] Last Admin: 07/16/16 14:33 Dose: 10 mg Insulin Aspart (Novolog Vial Sliding Scale -) 1 vial SQ TIDAC [facility] PRN Reason: Protocol Last Admin: 07/16/16 12:22 Dose: 8 units Insulin Detemir (Levemir Vial) 5 units SQ [facility] Last Admin: 07/15/16 22:46 Dose: 5 units Levofloxacin (Levaquin -) 750 mg PO DAILY [facility] Last Admin: 07/16/16 09:49 Dose: 750 mg Nitroglycerin (Nitrostat -) 0.4 mg SL Q5M PRN PRN Reason: FOR CHEST PAIN Pantoprazole Sodium (Protonix -) 40 mg PO BID [facility] Last Admin: 07/16/16 09:50 Dose: 40 mg Prednisone (Deltasone -) 20 mg PO DAILY [facility] Last Admin: 07/16/16 09:50 Dose: 20 mg - Objective Vital Signs: Vital Signs Temperature 97.6 F 07/16/16 14:00 Pulse Rate 106 H 07/16/16 14:00 Respiratory Rate 20 07/16/16 14:00 Blood Pressure 133/59 07/16/16 14:00 O2 Sat by Pulse Oximetry (%) 92 L 07/16/16 10:00 Constitutional: Yes: No Distress HENT: Yes: Atraumatic Neck: Yes: Supple Cardiovascular: Yes: Regular Rate and Rhythm Respiratory: Yes: Rhonchi Gastrointestinal: Yes: Normal Bowel Sounds Extremities: Yes: WNL Neurological: Yes: Alert, Oriented Labs: CBC, BMP 07/12/16 05:35 07/12/16 05:35 INR, PTT INR 1.02 (0.82-1.09) 06/09/16 05:05 Problem List - Problems (1) Respiratory failure Assessment/Plan: on bipap/nc prn apiration pna on abx..po on steroids..taper Code(s): J96.90 - RESPIRATORY FAILURE, UNSP, UNSP W HYPOXIA OR HYPERCAPNIA Qualifiers: Chronicity: acute Respiratory failure complication: hypoxia and hypercapnia Qualified Code(s): J96.01 - Acute respiratory failure with hypoxia (2) Chronic respiratory failure with hypoxia Assessment/Plan: duo nebs steroids taper Code(s): J96.11 - CHRONIC RESPIRATORY FAILURE WITH HYPOXIA (3) CAD (coronary artery disease) Assessment/Plan: on meds follow up labs continue current meds Code(s): I25.10 - ATHSCL HEART DISEASE OF [place] CORONARY ARTERY W/O ANG PCTRS (4) COPD (chronic obstructive pulmonary disease) Assessment/Plan: on meds stable steroids duo nebs Code(s): J44.9 - CHRONIC OBSTRUCTIVE PULMONARY DISEASE, UNSPECIFIED (5) Chronic diastolic CHF (congestive heart failure) Assessment/Plan: stable on meds Code(s): I50.32 - CHRONIC DIASTOLIC (CONGESTIVE) HEART FAILURE (6) HLD (hyperlipidemia) Assessment/Plan: on meds Code(s): E78.5 - HYPERLIPIDEMIA, UNSPECIFIED Qualifiers: Hyperlipidemia type: unspecified Qualified Code(s): E78.5 - Hyperlipidemia, unspecified (7) HTN (hypertension) Assessment/Plan: on meds stable Code(s): I10 - ESSENTIAL (PRIMARY) HYPERTENSION Qualifiers: Hypertension type: essential hypertension Qualified Code(s): I10 - Essential (primary) hypertension (8) History of cigarette smoking Code(s): Z87.891 - PERSONAL HISTORY OF NICOTINE DEPENDENCE (9) Influenza Assessment/Plan: on meds id consult Code(s): J11.1 - FLU DUE TO UNIDENTIFIED INFLUENZA VIRUS W OTH RESP MANIFEST (10) Acute on chronic respiratory failure with hypoxia and hypercapnia Code(s): J96.21 - ACUTE AND CHRONIC RESPIRATORY FAILURE WITH HYPOXIA J96.22 - ACUTE AND CHRONIC RESPIRATORY FAILURE WITH HYPERCAPNIA (11) History of PSVT (paroxysmal supraventricular tachycardia) Code(s): Z86.79 - PERSONAL HISTORY OF OTHER DISEASES OF THE CIRCULATORY SYSTEM (12) Anemia Assessment/Plan: hgb stable Code(s): D64.9 - ANEMIA, UNSPECIFIED (13) NSTEMI (non-ST elevated myocardial infarction) Code(s): I21.4 - NON-ST ELEVATION (NSTEMI) MYOCARDIAL INFARCTION (14) GI (gastrointestinal bleed) Code(s): K92.2 - GASTROINTESTINAL HEMORRHAGE, UNSPECIFIED Assessment/Plan 1.+Influenza treated 2.Acute respiratory failure ON FACE MASK RLL INFILTERATE ON ABX AND DUO NEBS 3.ANEMIA STABLE 4.NSTEMI 5.History breast cancer, lung mass with negative bx 6.COPD, chronic with chronic hypoxemia 7.chf STABLE 8.LOWER GI BLEED...stable s/p blood transfusion FU CBC IV PROTONIX BID 9.DYSPHAGIA REFUSING BARIUM SWALLOW ON DYSPAGIA DIET pt now on prednisone 20 mg po daily 1 week, then 10 mg po daily 1 week should be assesed then by pulmonary/md PT REFUSED TO GO TO SNF WANTS TO GO HOME
[2016-07-16] MEDS ORDERED: clonazePAM 0.5 MG TABLET PO STA (19:30)
[2016-07-16] MEDS ORDERED: INSULIN (NOVOLOG) ASPART 100 UNITS/ML 10ML VIAL ONE (20:57)
[2016-07-16] MEDS: INSULIN DETEMIR 100 UNITS/ML MDV SQ SCH (21:07)
[2016-07-16] MEDS: ATORVASTATIN CA 80 MG TABLET (FP) PO SCH (21:07)
[2016-07-17] MEDS ORDERED: dilTIAZem HCL 30 MG TABLET (FP) ONE ×4 (00:09→16:30)
[2016-07-17] MEDS ORDERED: dilTIAZem HCL 60 MG TABLET (FP) ONE ×4 (00:09→16:30)
[2016-07-17] MEDS: DILTIAZEM 60 MG, DILTIAZEM 30 MG PO SCH ×6 (00:14→17:07)
[2016-07-17] MEDS: hydrALAZINE HCL 10 MG TABLET PO SCH ×3 (05:32→22:42)
[2016-07-17] MEDS: FUROSEMIDE 40 MG TABLET (FP) PO SCH ×2 (05:32→13:48)
[2016-07-17] MEDS: INSULIN SLIDING SCALE (NOVOLOG) 1 VIAL SQ SCH ×3 (06:21→16:50)
[2016-07-17] MEDS: ALBUTEROL SO4 2.5/IPRATROPIUM 0.5 INH SOL 3 ML VIAL.NEB. NEB SCH ×2 (07:00→12:46)
--- NOTE | 2016-07-17 09:20 | PN ---
Progress Note, Physician Chief Complaint: Pt is alert; anxious; easily dyspneic. History of Present Illness: The patient is a 75 year old black female, with a significant past medical history of hypertension, hyperlipidemia, chronic bronchitis, COPD and left breast CA s/p radiation therapy, who presents to the emergency department via EMS intubated in respiratory arrest. This patient was most recently seen in this ED on 05/20/2016 for shortness of breath and chest pain, was admitted and discharged 3 days ago (05/28/2016). EMS reports that this afternoon, the patient was feeling short of breath and initiated EMS herself from home. EMS reports that upon arrival to the scene, the patient was wheezing with rhonchi and was hypoxic to the 80s. She was subsequently given nebs, steroids, mags and was put on CPAP. She then began to deteriorate with altered mental status so she was intubated with etomidate and succinylcholine. The patient arrives to the ED intubated. Allergies: None reported. Past Surgical History: Right Foot Surgery. Social History: Current smoker. Denies alcohol or drug use. Manager Programming: Dr. Kevin - Current Medication List Current Medications: Active Medications Acetaminophen (Tylenol -) 650 mg PO Q4H PRN PRN Reason: FEVER OR PAIN Last Admin: 07/16/16 01:37 Dose: 650 mg Acetaminophen (Tylenol -) 325 mg PO Q6H PRN PRN Reason: PAIN Last Admin: 07/11/16 20:02 Dose: 325 mg Albuterol/Ipratropium (Duoneb -) 1 amp NEB QIDR [facility] Last Admin: 07/17/16 07:00 Dose: 1 amp Atorvastatin Calcium (Lipitor -) 80 mg PO HS [facility] Last Admin: 07/16/16 21:07 Dose: 80 mg Budesonide/Formoterol Fumarate (Symbicort 160/4.5mcg -) 2 puff IH BID [facility] Last Admin: 07/16/16 21:07 Dose: 2 puff Clonazepam (Klonopin -) 0.5 mg PO TID PRN PRN Reason: ANXIETY Last Admin: 07/16/16 18:21 Dose: 0.5 mg Diltiazem HCl (Cardizem Injection -) 10 mg IVPUSH Q4H PRN PRN Reason: TACHYCARDIA Diltiazem HCl 60 mg/ Diltiazem (HCl 30 mg) 90 mg PO Q6HPO [facility] Last Admin: 07/17/16 05:32 Dose: 90 mg Furosemide (Lasix -) 40 mg PO BID@0600,1400 [facility] Last Admin: 07/17/16 05:32 Dose: 40 mg Hydralazine HCl (Apresoline -) 10 mg PO TID [facility] Last Admin: 07/17/16 05:32 Dose: 10 mg Insulin Aspart (Novolog Vial Sliding Scale -) 1 vial SQ TIDAC [facility] PRN Reason: Protocol Last Admin: 07/17/16 06:21 Dose: 4 units Insulin Detemir (Levemir Vial) 5 units SQ HS [facility] Last Admin: 07/16/16 21:07 Dose: 5 units Levofloxacin (Levaquin -) 750 mg PO DAILY [facility] Last Admin: 07/16/16 09:49 Dose: 750 mg Nitroglycerin (Nitrostat -) 0.4 mg SL Q5M PRN PRN Reason: FOR CHEST PAIN Pantoprazole Sodium (Protonix -) 40 mg PO BID [facility] Last Admin: 07/16/16 21:07 Dose: 40 mg Prednisone (Deltasone -) 20 mg PO DAILY [facility] Last Admin: 07/16/16 09:50 Dose: 20 mg - Objective Vital Signs: Vital Signs Temperature 97.8 F 07/17/16 06:00 Pulse Rate 88 07/17/16 06:00 Respiratory Rate 20 07/17/16 06:00 Blood Pressure 133/68 07/17/16 06:00 O2 Sat by Pulse Oximetry (%) 99 07/17/16 01:34 Constitutional: Yes: Anxious Eyes: Yes: WNL HENT: Yes: WNL Neck: Yes: WNL Cardiovascular: Yes: Regular Rate and Rhythm Respiratory: Yes: Diminished Gastrointestinal: Yes: Soft ...Rectal Exam: Yes: Deferred Genitourinary: Yes: Anuria Musculoskeletal: Yes: Muscle Weakness Extremities: Yes: Cool Edema: No Peripheral Pulses WNL: No Peripheral Pulses: Left Doralis Pedis: 1+, Right Dorsalis Pedis: 1+ Neurological: Yes: Alert, Weakness Psychiatric: Yes: Alert, Other (anxious) Labs: CBC, BMP 07/12/16 05:35 07/12/16 05:35 INR, PTT INR 1.02 (0.82-1.09) 06/09/16 05:05 Problem List - Problems (1) Influenza Code(s): J11.1 - FLU DUE TO UNIDENTIFIED INFLUENZA VIRUS W OTH RESP MANIFEST (2) Respiratory failure Assessment/Plan: dyspneic on minimal exertion. Diastolic CHF. On bronchodilators, steroid, O2, antibiotics; f/u with pulmonary and ID. BP control. PSVT. Code(s): J96.90 - RESPIRATORY FAILURE, UNSP, UNSP W HYPOXIA OR HYPERCAPNIA Qualifiers: Chronicity: acute Respiratory failure complication: hypoxia and hypercapnia Qualified Code(s): J96.01 - Acute respiratory failure with hypoxia (3) Pulmonary hypertension Code(s): I27.2 - OTHER SECONDARY PULMONARY HYPERTENSION (4) Acute on chronic diastolic CHF (congestive heart failure) Assessment/Plan: now on enalapril for HTN, CHF; f/u BP, BUN/Cr, electrolytes. TSH WNL; free T3 mildly decreased. Code(s): I50.33 - ACUTE ON CHRONIC DIASTOLIC (CONGESTIVE) HEART FAILURE (5) Breast CA Code(s): C50.919 - MALIGNANT NEOPLASM OF UNSP SITE OF UNSPECIFIED FEMALE BREAST Qualifiers: Laterality: unspecified laterality (6) COPD (chronic obstructive pulmonary disease) Code(s): J44.9 - CHRONIC OBSTRUCTIVE PULMONARY DISEASE, UNSPECIFIED (7) HLD (hyperlipidemia) Assessment/Plan: LDL > 160 mg/Dl in 2016; f/u lipid panel. (On atorvastatin 80 mg daily). Code(s): E78.5 - HYPERLIPIDEMIA, UNSPECIFIED Qualifiers: Hyperlipidemia type: unspecified Qualified Code(s): E78.5 - Hyperlipidemia, unspecified (8) HTN (hypertension) Code(s): I10 - ESSENTIAL (PRIMARY) HYPERTENSION Qualifiers: Hypertension type: essential hypertension Qualified Code(s): I10 - Essential (primary) hypertension (9) History of breast cancer Code(s): Z85.3 - PERSONAL HISTORY OF MALIGNANT NEOPLASM OF BREAST (10) History of cigarette smoking Code(s): Z87.891 - PERSONAL HISTORY OF NICOTINE DEPENDENCE (11) NSTEMI (non-ST elevated myocardial infarction) Code(s): I21.4 - NON-ST ELEVATION (NSTEMI) MYOCARDIAL INFARCTION (12) Aortic stenosis Code(s): I35.0 - NONRHEUMATIC AORTIC (VALVE) STENOSIS (13) History of PSVT (paroxysmal supraventricular tachycardia) Code(s): Z86.79 - PERSONAL HISTORY OF OTHER DISEASES OF THE CIRCULATORY SYSTEM
[2016-07-17] MEDS: PANTOPRAZOLE 40 MG TABLET (FP) PO SCH ×2 (10:26→22:46)
[2016-07-17] MEDS: LEVOFLOXACIN 250 MG TABLET (FP) PO SCH (10:26)
[2016-07-17] MEDS: clonazePAM 0.5 MG TABLET PO PRN ×3 (10:26→22:41)
[2016-07-17] MEDS: predniSONE 20 MG TABLET (UD) PO SCH (10:26)
[2016-07-17] MEDS: BUDESONIDE/FORMETEROL FUMARATE 160/4.5 mcg INHALER IH SCH ×2 (10:27→22:47)
[2016-07-17] MEDS: ACETAMINOPHEN 325 MG TABLET (FP) PO PRN (13:48)
--- NOTE | 2016-07-17 21:14 | PN ---
Progress Note, Physician History of Present Illness: stable - Current Medication List Current Medications: Active Medications Acetaminophen (Tylenol -) 650 mg PO Q4H PRN PRN Reason: FEVER OR PAIN Last Admin: 07/17/16 13:48 Dose: 650 mg Acetaminophen (Tylenol -) 325 mg PO Q6H PRN PRN Reason: PAIN Last Admin: 07/11/16 20:02 Dose: 325 mg Atorvastatin Calcium (Lipitor -) 80 mg PO HS [facility] Last Admin: 07/16/16 21:07 Dose: 80 mg Budesonide/Formoterol Fumarate (Symbicort 160/4.5mcg -) 2 puff IH BID [facility] Last Admin: 07/17/16 10:27 Dose: 2 puff Diltiazem HCl (Cardizem Injection -) 10 mg IVPUSH Q4H PRN PRN Reason: TACHYCARDIA Diltiazem HCl 60 mg/ Diltiazem (HCl 30 mg) 90 mg PO Q6HPO [facility] Last Admin: 07/17/16 17:07 Dose: Not Given Furosemide (Lasix -) 40 mg PO BID@0600,1400 [facility] Last Admin: 07/17/16 13:48 Dose: 40 mg Hydralazine HCl (Apresoline -) 10 mg PO TID [facility] Last Admin: 07/17/16 13:48 Dose: 10 mg Insulin Aspart (Novolog Vial Sliding Scale -) 1 vial SQ TIDAC [facility] PRN Reason: Protocol Last Admin: 07/17/16 16:50 Dose: 12 units Insulin Detemir (Levemir Vial) 5 units SQ [facility] Last Admin: 07/16/16 21:07 Dose: 5 units Levofloxacin (Levaquin -) 750 mg PO DAILY [facility] Last Admin: 07/17/16 10:26 Dose: 750 mg Nitroglycerin (Nitrostat -) 0.4 mg SL Q5M PRN PRN Reason: FOR CHEST PAIN Pantoprazole Sodium (Protonix -) 40 mg PO BID [facility] Last Admin: 07/17/16 10:26 Dose: 40 mg Prednisone (Deltasone -) 20 mg PO DAILY [facility] Last Admin: 07/17/16 10:26 Dose: 20 mg - Objective Vital Signs: Vital Signs Temperature 101.7 F H 07/17/16 18:00 Pulse Rate 95 H 07/17/16 18:00 Respiratory Rate 18 07/17/16 18:00 Blood Pressure 131/58 07/17/16 18:00 O2 Sat by Pulse Oximetry (%) 99 07/17/16 01:34 Constitutional: Yes: No Distress HENT: Yes: Atraumatic Neck: Yes: Supple Cardiovascular: Yes: Regular Rate and Rhythm Respiratory: Yes: CTA Bilaterally Gastrointestinal: Yes: Normal Bowel Sounds Extremities: Yes: WNL Neurological: Yes: Alert, Oriented Labs: CBC, BMP 07/12/16 05:35 07/12/16 05:35 INR, PTT INR 1.02 (0.82-1.09) 06/09/16 05:05 Problem List - Problems (1) Respiratory failure Assessment/Plan: on bipap/nc prn apiration pna on abx..po on steroids..taper Code(s): J96.90 - RESPIRATORY FAILURE, UNSP, UNSP W HYPOXIA OR HYPERCAPNIA Qualifiers: Chronicity: acute Respiratory failure complication: hypoxia and hypercapnia Qualified Code(s): J96.01 - Acute respiratory failure with hypoxia (2) Chronic respiratory failure with hypoxia Assessment/Plan: duo nebs steroids taper Code(s): J96.11 - CHRONIC RESPIRATORY FAILURE WITH HYPOXIA (3) CAD (coronary artery disease) Assessment/Plan: on meds follow up labs continue current meds Code(s): I25.10 - ATHSCL HEART DISEASE OF [place] CORONARY ARTERY W/O ANG PCTRS (4) COPD (chronic obstructive pulmonary disease) Assessment/Plan: on meds stable steroids duo nebs Code(s): J44.9 - CHRONIC OBSTRUCTIVE PULMONARY DISEASE, UNSPECIFIED (5) Chronic diastolic CHF (congestive heart failure) Assessment/Plan: stable on meds Code(s): I50.32 - CHRONIC DIASTOLIC (CONGESTIVE) HEART FAILURE (6) HLD (hyperlipidemia) Assessment/Plan: on meds Code(s): E78.5 - HYPERLIPIDEMIA, UNSPECIFIED Qualifiers: Hyperlipidemia type: unspecified Qualified Code(s): E78.5 - Hyperlipidemia, unspecified (7) HTN (hypertension) Code(s): I10 - ESSENTIAL (PRIMARY) HYPERTENSION Qualifiers: Hypertension type: essential hypertension Qualified Code(s): I10 - Essential (primary) hypertension (8) History of cigarette smoking Code(s): Z87.891 - PERSONAL HISTORY OF NICOTINE DEPENDENCE (9) Influenza Code(s): J11.1 - FLU DUE TO UNIDENTIFIED INFLUENZA VIRUS W OTH RESP MANIFEST (10) Acute on chronic respiratory failure with hypoxia and hypercapnia Code(s): J96.21 - ACUTE AND CHRONIC RESPIRATORY FAILURE WITH HYPOXIA J96.22 - ACUTE AND CHRONIC RESPIRATORY FAILURE WITH HYPERCAPNIA (11) History of PSVT (paroxysmal supraventricular tachycardia) Code(s): Z86.79 - PERSONAL HISTORY OF OTHER DISEASES OF THE CIRCULATORY SYSTEM (12) Anemia Code(s): D64.9 - ANEMIA, UNSPECIFIED (13) NSTEMI (non-ST elevated myocardial infarction) Code(s): I21.4 - NON-ST ELEVATION (NSTEMI) MYOCARDIAL INFARCTION (14) GI (gastrointestinal bleed) Code(s): K92.2 - GASTROINTESTINAL HEMORRHAGE, UNSPECIFIED Assessment/Plan 1.+Influenza treated 2.Acute respiratory failure ON FACE MASK RLL INFILTERATE ON ABX AND DUO NEBS 3.ANEMIA STABLE 4.NSTEMI 5.History breast cancer, lung mass with negative bx 6.COPD, chronic with chronic hypoxemia 7.chf STABLE 8.LOWER GI BLEED...stable s/p blood transfusion FU CBC IV PROTONIX BID 9.DYSPHAGIA REFUSING BARIUM SWALLOW ON DYSPAGIA DIET prednisone 10 mg po daily from tomorrow PT REFUSED TO GO TO SNF WANTS TO GO HOME
[2016-07-17] MEDS: ATORVASTATIN CA 80 MG TABLET (FP) PO SCH (22:46)
[2016-07-17] MEDS: INSULIN DETEMIR 100 UNITS/ML MDV SQ SCH (22:46)
[2016-07-18] MEDS ORDERED: dilTIAZem HCL 60 MG TABLET (FP) ONE ×4 (00:44→17:41)
[2016-07-18] MEDS ORDERED: dilTIAZem HCL 30 MG TABLET (FP) ONE ×4 (00:44→17:40)
[2016-07-18] MEDS: DILTIAZEM 60 MG, DILTIAZEM 30 MG PO SCH ×4 (00:52→17:43)
[2016-07-18] MEDS: hydrALAZINE HCL 10 MG TABLET PO SCH ×3 (05:23→23:48)
[2016-07-18] MEDS: FUROSEMIDE 40 MG TABLET (FP) PO SCH ×2 (05:24→15:00)
[2016-07-18] MEDS: INSULIN SLIDING SCALE (NOVOLOG) 1 VIAL SQ SCH ×3 (06:04→17:38)
[2016-07-18 08:55] LABS: CHOLESTEROL 127 mg/dL (50-200); LDL CHOLESTEROL (ONLY SJRH) 71 mg/dL (5-100)
[2016-07-18] MEDS: clonazePAM 0.5 MG TABLET PO PRN ×2 (09:30→16:30)
[2016-07-18] MEDS: ACETAMINOPHEN 325 MG TABLET (FP) PO PRN (09:37)
[2016-07-18] MEDS: predniSONE 10 MG TABLET (UD) PO SCH (09:38)
[2016-07-18] MEDS: PANTOPRAZOLE 40 MG TABLET (FP) PO SCH ×2 (09:38→23:48)
[2016-07-18] MEDS: LEVOFLOXACIN 250 MG TABLET (FP) PO SCH (09:38)
[2016-07-18] MEDS: BUDESONIDE/FORMETEROL FUMARATE 160/4.5 mcg INHALER IH SCH (09:39)
--- NOTE | 2016-07-18 12:23 | PN ---
Progress Note, Physician History of Present Illness: seen and examined today in nad. no overnight events. no new complaints. awake, alert, oriented, very weak/frail appearing. - Current Medication List Current Medications: Active Medications Acetaminophen (Tylenol -) 650 mg PO Q4H PRN PRN Reason: FEVER OR PAIN Last Admin: 07/18/16 09:37 Dose: 650 mg Acetaminophen (Tylenol -) 325 mg PO Q6H PRN PRN Reason: PAIN Last Admin: 07/11/16 20:02 Dose: 325 mg Atorvastatin Calcium (Lipitor -) 80 mg PO HS [facility] Last Admin: 07/17/16 22:46 Dose: 80 mg Budesonide/Formoterol Fumarate (Symbicort 160/4.5mcg -) 2 puff IH BID [facility] Last Admin: 07/18/16 09:39 Dose: 2 puff Clonazepam (Klonopin -) 0.5 mg PO Q8H PRN PRN Reason: ANXIETY Last Admin: 07/18/16 09:30 Dose: 0.5 mg Diltiazem HCl (Cardizem Injection -) 10 mg IVPUSH Q4H PRN PRN Reason: TACHYCARDIA Diltiazem HCl 60 mg/ Diltiazem (HCl 30 mg) 90 mg PO Q6HPO [facility] Last Admin: 07/18/16 05:24 Dose: 90 mg Furosemide (Lasix -) 40 mg PO BID@0600,1400 [facility] Last Admin: 07/18/16 05:24 Dose: 40 mg Hydralazine HCl (Apresoline -) 10 mg PO TID [facility] Last Admin: 07/18/16 05:23 Dose: 10 mg Insulin Aspart (Novolog Vial Sliding Scale -) 1 vial SQ TIDAC [facility] PRN Reason: Protocol Last Admin: 07/18/16 12:17 Dose: 8 units Insulin Detemir (Levemir Vial) 5 units SQ [facility] Last Admin: 07/17/16 22:46 Dose: 5 units Levofloxacin (Levaquin -) 750 mg PO DAILY [facility] Last Admin: 07/18/16 09:38 Dose: 750 mg Nitroglycerin (Nitrostat -) 0.4 mg SL Q5M PRN PRN Reason: FOR CHEST PAIN Pantoprazole Sodium (Protonix -) 40 mg PO BID [facility] Last Admin: 07/18/16 09:38 Dose: 40 mg Prednisone (Deltasone -) 10 mg PO DAILY [facility] Last Admin: 07/18/16 09:38 Dose: 10 mg - Objective Vital Signs: Vital Signs Temperature 98.8 F 07/18/16 06:00 Pulse Rate 89 07/18/16 09:49 Respiratory Rate 20 07/18/16 06:00 Blood Pressure 126/54 07/18/16 06:00 O2 Sat by Pulse Oximetry (%) 96 07/18/16 09:49 Constitutional: Yes: No Distress, Calm, Thin Eyes: Yes: Conjunctiva Clear, EOM Intact, PERRL HENT: Yes: Atraumatic, Normocephalic Neck: Yes: Supple, Trachea Midline Cardiovascular: Yes: Regular Rate and Rhythm, Murmur, S1, S2. No: Bradycardia, Tachycardia, Pulse Irregular, Bruit, JVD, Gallop, Rub, S3, S4, Varicosities Respiratory: Yes: Regular, Diminished, On Nasal O2, Rhonchi, Wheezes. No: Rales , SOB Gastrointestinal: Yes: Normal Bowel Sounds, Soft. No: Distention, Tenderness Musculoskeletal: Yes: Muscle Weakness Edema: No Peripheral Pulses WNL: Yes Peripheral Pulses: Left Doralis Pedis: 2+, Right Dorsalis Pedis: 2+ Integumentary: Yes: WNL Neurological: Yes: Alert, Oriented Psychiatric: Yes: Alert, Oriented Labs: CBC, BMP 07/12/16 05:35 07/12/16 05:35 INR, PTT INR 1.02 (0.82-1.09) 06/09/16 05:05 - ....Imaging Chest X-ray: Report Reviewed, Image Reviewed EKG: Report Reviewed, Image Reviewed Other: Report Reviewed, Image Reviewed Assessment/Plan Recurrent acute respiratory failure requiring re-intubation, refused trach first intubation, now extubated Bilateral PNA Anemia PSVT and PAF CAD s/p NSTEMI Mild COPD REC: Respiratory failure-requiring intubation during admission, multifactorial -slowly improving -needs physical therapy and nutrition PSVT-adequately controlled -cont Cardizem 90mg po q6h Pafib-brief episodes during hospitalization -Holding ASA due to anemia, High risk for anticoagulation (for PAF) due to traumatic subdural hematoma and anemia with guaiac + stool -cont cardizem as above CAD-h/o PCI years ago, chronic angina, mild NSTEMI -stable -ASA on hold as above -not on bblocker due to severe COPD -cont statin Acute on chronic diastolic CHF-currently euvolemic -Cont Lasix 40mg PO BID -would check bun/creat, electrolytes today or tomorrow Aortic stenosis-mild -outpatient follow up
--- NOTE | 2016-07-18 13:16 | PN ---
Progress Note, Physician History of Present Illness: PULMONARY ALERT,ON NASAL O2,STILL DYSPNEIC - Current Medication List Current Medications: Active Medications Acetaminophen (Tylenol -) 650 mg PO Q4H PRN PRN Reason: FEVER OR PAIN Last Admin: 07/18/16 09:37 Dose: 650 mg Acetaminophen (Tylenol -) 325 mg PO Q6H PRN PRN Reason: PAIN Last Admin: 07/11/16 20:02 Dose: 325 mg Atorvastatin Calcium (Lipitor -) 80 mg PO HS [facility] Last Admin: 07/17/16 22:46 Dose: 80 mg Budesonide/Formoterol Fumarate (Symbicort 160/4.5mcg -) 2 puff IH BID [facility] Last Admin: 07/18/16 09:39 Dose: 2 puff Clonazepam (Klonopin -) 0.5 mg PO Q8H PRN PRN Reason: ANXIETY Last Admin: 07/18/16 09:30 Dose: 0.5 mg Diltiazem HCl (Cardizem Injection -) 10 mg IVPUSH Q4H PRN PRN Reason: TACHYCARDIA Diltiazem HCl 60 mg/ Diltiazem (HCl 30 mg) 90 mg PO Q6HPO [facility] Last Admin: 07/18/16 12:30 Dose: 90 mg Furosemide (Lasix -) 40 mg PO BID@0600,1400 [facility] Last Admin: 07/18/16 05:24 Dose: 40 mg Hydralazine HCl (Apresoline -) 10 mg PO TID [facility] Last Admin: 07/18/16 05:23 Dose: 10 mg Insulin Aspart (Novolog Vial Sliding Scale -) 1 vial SQ TIDAC [facility] PRN Reason: Protocol Last Admin: 07/18/16 12:17 Dose: 8 units Insulin Detemir (Levemir Vial) 5 units SQ [facility] Last Admin: 07/17/16 22:46 Dose: 5 units Levofloxacin (Levaquin -) 750 mg PO DAILY [facility] Last Admin: 07/18/16 09:38 Dose: 750 mg Nitroglycerin (Nitrostat -) 0.4 mg SL Q5M PRN PRN Reason: FOR CHEST PAIN Pantoprazole Sodium (Protonix -) 40 mg PO BID [facility] Last Admin: 07/18/16 09:38 Dose: 40 mg Prednisone (Deltasone -) 10 mg PO DAILY [facility] Last Admin: 07/18/16 09:38 Dose: 10 mg - Objective Vital Signs: Vital Signs Temperature 98.8 F 07/18/16 06:00 Pulse Rate 89 07/18/16 09:49 Respiratory Rate 20 07/18/16 06:00 Blood Pressure 126/54 07/18/16 06:00 O2 Sat by Pulse Oximetry (%) 96 07/18/16 09:49 Constitutional: Yes: Calm, Thin Eyes: Yes: WNL HENT: Yes: WNL Neck: Yes: WNL Cardiovascular: Yes: Regular Rate and Rhythm, S1, S2 Respiratory: Yes: Rhonchi (SCATTERED REE RHONCHI) Gastrointestinal: Yes: Normal Bowel Sounds, Soft Edema: No Labs: CBC, BMP 07/12/16 05:35 07/12/16 05:35 INR, PTT INR 1.02 (0.82-1.09) 06/09/16 05:05 Problem List - Problems (1) Aortic stenosis Code(s): I35.0 - NONRHEUMATIC AORTIC (VALVE) STENOSIS (2) History of PSVT (paroxysmal supraventricular tachycardia) Code(s): Z86.79 - PERSONAL HISTORY OF OTHER DISEASES OF THE CIRCULATORY SYSTEM (3) NSTEMI (non-ST elevated myocardial infarction) Code(s): I21.4 - NON-ST ELEVATION (NSTEMI) MYOCARDIAL INFARCTION (4) Respiratory failure Code(s): J96.90 - RESPIRATORY FAILURE, UNSP, UNSP W HYPOXIA OR HYPERCAPNIA Qualifiers: Chronicity: acute Respiratory failure complication: hypoxia and hypercapnia Qualified Code(s): J96.01 - Acute respiratory failure with hypoxia (5) Pulmonary hypertension Code(s): I27.2 - OTHER SECONDARY PULMONARY HYPERTENSION (6) Pulmonary nodules Code(s): R91.8 - OTHER NONSPECIFIC ABNORMAL FINDING OF LUNG FIELD (7) COPD (chronic obstructive pulmonary disease) Code(s): J44.9 - CHRONIC OBSTRUCTIVE PULMONARY DISEASE, UNSPECIFIED (8) History of cigarette smoking Code(s): Z87.891 - PERSONAL HISTORY OF NICOTINE DEPENDENCE (9) Acute on chronic respiratory failure with hypoxia and hypercapnia Code(s): J96.21 - ACUTE AND CHRONIC RESPIRATORY FAILURE WITH HYPOXIA J96.22 - ACUTE AND CHRONIC RESPIRATORY FAILURE WITH HYPERCAPNIA Assessment/Plan ASSESSMENT AND PLAN: Acute on Chronic Hypoxic and Hypercapneic Respiratory Failure improved Influenza A s/p treatment Pneumonia - ?Aspiration Acute COPD Exacerbation CAD +Troponins/Acute NSTEMI h/o Breast Ca 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
--- NOTE | 2016-07-18 15:55 | PN ---
Progress Note (short form) - Note Progress Note: Psych follow up: Patient physical condition has improved significantly, How Ever she needs rehab and she has no capacity or required care qt home> She has been refusing placement in an caute Rehab. MSD: Alert, oriented to name. Keeps yelling out and moaning. she is refusing to go to a Alf, insists that she wants to go home ang infact leaving here in am. patient is uanable to engage in any meaningful conversation about her plans. Patient displaying acute agitation and her judgement is severly impaired at this time. she is unable to make any rational decisions about herv care. she is a severe risk to go home on her own. IMPRESSION: Patient lacks functional capacity to make any informed decisions about her care at this time.
--- NOTE | 2016-07-18 16:38 | DS ---
Physical Examination Vital Signs: Vital Signs Temperature 97.9 F 07/18/16 14:41 Pulse Rate 89 07/18/16 14:41 Respiratory Rate 19 07/18/16 14:41 Blood Pressure 133/60 07/18/16 14:41 O2 Sat by Pulse Oximetry (%) 96 07/18/16 09:49 Labs: CBC, BMP 07/12/16 05:35 07/12/16 05:35 Discharge Summary Reason For Visit: CHRONIC RESPIRATORY FAILURE WITH HYPOXIA Current Active Problems Acute on chronic respiratory failure with hypoxia and hypercapnia (Acute) Anemia (Acute) Aortic stenosis (Acute) GI (gastrointestinal bleed) (Acute) History of PSVT (paroxysmal supraventricular tachycardia) (Acute) Influenza (Acute) NSTEMI (non-ST elevated myocardial infarction) (Acute) Respiratory failure (Acute) Chronic respiratory failure with hypoxia (Chronic) Condition: Critical - Instructions Diet, Activity, Other Instructions: pt now on prednisone 20 mg po daily 1 week, then 10 mg po daily 1 week should be assesed then by pulmonary/md continue levaquin for 7 more days..then assess the patient Referrals: [facility] [Resident] - 1 Week - Home Medications Comprehensive Discharge Medication List: Ambulatory Orders Albuterol Sulfate [Proair Hfa -] 2 inh PO BID 06/14/14 Nitroglycerin Sublingual [Nitrostat -] 0.4 mg SL Q5M PRN #30 tab 02/22/16 Albuterol 2.5/Ipratropium 0.5 [Duoneb -] 1 amp NEB QIDR amp 07/08/16 Atorvastatin Ca [Lipitor] 80 mg PO HS tablet 07/08/16 Budesonide/Formeterol Fumarate [SYMBICORT 160/4.5mcg -] 2 puff IH BID inhaler 07/08/16 Diltiazem [Cardizem -] 90 mg PO Q6HPO tablet 07/08/16 Insulin (Levemir) [Levemir Vial] 5 units SQ HS ml 07/08/16 Pantoprazole Sodium [Protonix -] 40 mg PO BID #30 bottle 07/08/16 Clonazepam [Klonopin -] 0.5 mg PO Q12H PRN #0 tablet MDD 2 07/11/16 Hydralazine HCl [Apresoline -] 10 mg PO TID tablet 07/11/16 Levofloxacin [Levaquin -] 750 mg PO DAILY #7 tablet 07/11/16 Furosemide [Lasix -] 40 mg PO BID@0600,1400 tablet 07/15/16 Prednisone [Deltasone -] 10 mg PO DAILY tablet 07/17/16
--- NOTE | 2016-07-18 17:31 | PN ---
Progress Note, Physician History of Present Illness: patient looks stable very anxious her decubitus ulcer has deotriated now with slough and foul smell - Current Medication List Current Medications: Active Medications Acetaminophen (Tylenol -) 650 mg PO Q4H PRN PRN Reason: FEVER OR PAIN Last Admin: 07/18/16 09:37 Dose: 650 mg Acetaminophen (Tylenol -) 325 mg PO Q6H PRN PRN Reason: PAIN Last Admin: 07/11/16 20:02 Dose: 325 mg Atorvastatin Calcium (Lipitor -) 80 mg PO HS [facility] Last Admin: 07/17/16 22:46 Dose: 80 mg Budesonide/Formoterol Fumarate (Symbicort 160/4.5mcg -) 2 puff IH BID [facility] Last Admin: 07/18/16 09:39 Dose: 2 puff Clonazepam (Klonopin -) 0.5 mg PO Q8H PRN PRN Reason: ANXIETY Last Admin: 07/18/16 16:30 Dose: 0.5 mg Diltiazem HCl (Cardizem Injection -) 10 mg IVPUSH Q4H PRN PRN Reason: TACHYCARDIA Diltiazem HCl 60 mg/ Diltiazem (HCl 30 mg) 90 mg PO Q6HPO [facility] Last Admin: 07/18/16 12:30 Dose: 90 mg Furosemide (Lasix -) 40 mg PO BID@0600,1400 [facility] Last Admin: 07/18/16 15:00 Dose: 40 mg Hydralazine HCl (Apresoline -) 10 mg PO TID [facility] Last Admin: 07/18/16 15:00 Dose: 10 mg Insulin Aspart (Novolog Vial Sliding Scale -) 1 vial SQ TIDAC [facility] PRN Reason: Protocol Last Admin: 07/18/16 12:17 Dose: 8 units Insulin Detemir (Levemir Vial) 5 units SQ [facility] Last Admin: 07/17/16 22:46 Dose: 5 units Levofloxacin (Levaquin -) 750 mg PO DAILY [facility] Last Admin: 07/18/16 09:38 Dose: 750 mg Nitroglycerin (Nitrostat -) 0.4 mg SL Q5M PRN PRN Reason: FOR CHEST PAIN Olanzapine (Zyprexa -) 2.5 mg PO BID [facility] Pantoprazole Sodium (Protonix -) 40 mg PO BID [facility] Last Admin: 07/18/16 09:38 Dose: 40 mg Prednisone (Deltasone -) 10 mg PO DAILY [facility] Last Admin: 07/18/16 09:38 Dose: 10 mg - Objective Vital Signs: Vital Signs Temperature 97.9 F 07/18/16 14:41 Pulse Rate 89 07/18/16 14:41 Respiratory Rate 19 07/18/16 14:41 Blood Pressure 133/60 07/18/16 14:41 O2 Sat by Pulse Oximetry (%) 96 07/18/16 09:49 Constitutional: Yes: No Distress, Anxious Cardiovascular: Yes: Regular Rate and Rhythm Respiratory: Yes: Regular, Poor Air Entry, Other Gastrointestinal: Yes: Normal Bowel Sounds, Soft Musculoskeletal: Yes: WNL Extremities: Yes: WNL Wound/Incision: Yes: Other (stage 4 decubitus ulcer) Neurological: Yes: Alert, Oriented Psychiatric: Yes: Alert, Oriented Labs: CBC, BMP 07/12/16 05:35 07/12/16 05:35 INR, PTT INR 1.02 (0.82-1.09) 06/09/16 05:05 Assessment/Plan Problem List - Problems (1) Aortic stenosis Code(s): I35.0 - NONRHEUMATIC AORTIC (VALVE) STENOSIS (2) History of PSVT (paroxysmal supraventricular tachycardia) Code(s): Z86.79 - PERSONAL HISTORY OF OTHER DISEASES OF THE CIRCULATORY SYSTEM (3) NSTEMI (non-ST elevated myocardial infarction) Code(s): I21.4 - NON-ST ELEVATION (NSTEMI) MYOCARDIAL INFARCTION (4) Respiratory failure Code(s): J96.90 - RESPIRATORY FAILURE, UNSP, UNSP W HYPOXIA OR HYPERCAPNIA Qualifiers: Chronicity: acute Respiratory failure complication: hypoxia and hypercapnia Qualified Code(s): J96.01 - Acute respiratory failure with hypoxia (5) Pulmonary hypertension Code(s): I27.2 - OTHER SECONDARY PULMONARY HYPERTENSION (6) Pulmonary nodules Code(s): R91.8 - OTHER NONSPECIFIC ABNORMAL FINDING OF LUNG FIELD (7) COPD (chronic obstructive pulmonary disease) Code(s): J44.9 - CHRONIC OBSTRUCTIVE PULMONARY DISEASE, UNSPECIFIED (8) History of cigarette smoking Code(s): Z87.891 - PERSONAL HISTORY OF NICOTINE DEPENDENCE (9) Acute on chronic respiratory failure with hypoxia and hypercapnia Code(s): J96.21 - ACUTE AND CHRONIC RESPIRATORY FAILURE WITH HYPOXIA J96.22 - ACUTE AND CHRONIC RESPIRATORY FAILURE WITH HYPERCAPNIAEPENDENCE +Troponins/Acute NSTEMI Lactic Acidosis h/o Breast Ca 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
--- NOTE | 2016-07-18 17:46 | PN ---
Progress Note, Physician History of Present Illness: stable - Current Medication List Current Medications: Active Medications Acetaminophen (Tylenol -) 650 mg PO Q4H PRN PRN Reason: FEVER OR PAIN Last Admin: 07/18/16 09:37 Dose: 650 mg Acetaminophen (Tylenol -) 325 mg PO Q6H PRN PRN Reason: PAIN Last Admin: 07/11/16 20:02 Dose: 325 mg Atorvastatin Calcium (Lipitor -) 80 mg PO [facility] Last Admin: 07/17/16 22:46 Dose: 80 mg Budesonide/Formoterol Fumarate (Symbicort 160/4.5mcg -) 2 puff IH BID [facility] Last Admin: 07/18/16 09:39 Dose: 2 puff Clonazepam (Klonopin -) 0.5 mg PO Q8H PRN PRN Reason: ANXIETY Last Admin: 07/18/16 16:30 Dose: 0.5 mg Diltiazem HCl (Cardizem Injection -) 10 mg IVPUSH Q4H PRN PRN Reason: TACHYCARDIA Diltiazem HCl 60 mg/ Diltiazem (HCl 30 mg) 90 mg PO Q6HPO [facility] Last Admin: 07/18/16 12:30 Dose: 90 mg Furosemide (Lasix -) 40 mg PO BID@0600,1400 [facility] Last Admin: 07/18/16 15:00 Dose: 40 mg Hydralazine HCl (Apresoline -) 10 mg PO TID [facility] Last Admin: 07/18/16 15:00 Dose: 10 mg Insulin Aspart (Novolog Vial Sliding Scale -) 1 vial SQ TIDAC [facility] PRN Reason: Protocol Last Admin: 07/18/16 12:17 Dose: 8 units Insulin Detemir (Levemir Vial) 5 units SQ [facility] Last Admin: 07/17/16 22:46 Dose: 5 units Levofloxacin (Levaquin -) 750 mg PO DAILY [facility] Last Admin: 07/18/16 09:38 Dose: 750 mg Nitroglycerin (Nitrostat -) 0.4 mg SL Q5M PRN PRN Reason: FOR CHEST PAIN Olanzapine (Zyprexa -) 2.5 mg PO BID [facility] Pantoprazole Sodium (Protonix -) 40 mg PO BID [facility] Last Admin: 07/18/16 09:38 Dose: 40 mg Prednisone (Deltasone -) 10 mg PO DAILY [facility] Last Admin: 07/18/16 09:38 Dose: 10 mg - Objective Vital Signs: Vital Signs Temperature 97.9 F 07/18/16 14:41 Pulse Rate 89 07/18/16 14:41 Respiratory Rate 19 07/18/16 14:41 Blood Pressure 133/60 07/18/16 14:41 O2 Sat by Pulse Oximetry (%) 96 07/18/16 09:49 Constitutional: Yes: Calm HENT: Yes: Atraumatic Neck: Yes: Supple Cardiovascular: Yes: Regular Rate and Rhythm Respiratory: Yes: CTA Bilaterally Gastrointestinal: Yes: Normal Bowel Sounds Wound/Incision: Yes: Other (pt had stage one ulcer which s now stage 3) Neurological: Yes: Alert Labs: CBC, BMP 07/12/16 05:35 07/12/16 05:35 INR, PTT INR 1.02 (0.82-1.09) 06/09/16 05:05 Problem List - Problems (1) Respiratory failure Assessment/Plan: on bipap/nc prn apiration pna on abx..po on steroids..taper Code(s): J96.90 - RESPIRATORY FAILURE, UNSP, UNSP W HYPOXIA OR HYPERCAPNIA Qualifiers: Chronicity: acute Respiratory failure complication: hypoxia and hypercapnia Qualified Code(s): J96.01 - Acute respiratory failure with hypoxia (2) Chronic respiratory failure with hypoxia Assessment/Plan: duo nebs steroids taper Code(s): J96.11 - CHRONIC RESPIRATORY FAILURE WITH HYPOXIA (3) CAD (coronary artery disease) Assessment/Plan: on meds follow up labs continue current meds Code(s): I25.10 - ATHSCL HEART DISEASE OF [place] CORONARY ARTERY W/O ANG PCTRS (4) COPD (chronic obstructive pulmonary disease) Assessment/Plan: on meds stable steroids duo nebs Code(s): J44.9 - CHRONIC OBSTRUCTIVE PULMONARY DISEASE, UNSPECIFIED (5) Chronic diastolic CHF (congestive heart failure) Assessment/Plan: stable on meds Code(s): I50.32 - CHRONIC DIASTOLIC (CONGESTIVE) HEART FAILURE (6) HLD (hyperlipidemia) Assessment/Plan: on meds Code(s): E78.5 - HYPERLIPIDEMIA, UNSPECIFIED Qualifiers: Hyperlipidemia type: unspecified Qualified Code(s): E78.5 - Hyperlipidemia, unspecified (7) HTN (hypertension) Assessment/Plan: on meds stable Code(s): I10 - ESSENTIAL (PRIMARY) HYPERTENSION Qualifiers: Hypertension type: essential hypertension Qualified Code(s): I10 - Essential (primary) hypertension (8) History of cigarette smoking Code(s): Z87.891 - PERSONAL HISTORY OF NICOTINE DEPENDENCE (9) Influenza Assessment/Plan: on meds id consult Code(s): J11.1 - FLU DUE TO UNIDENTIFIED INFLUENZA VIRUS W OTH RESP MANIFEST (10) Acute on chronic respiratory failure with hypoxia and hypercapnia Code(s): J96.21 - ACUTE AND CHRONIC RESPIRATORY FAILURE WITH HYPOXIA J96.22 - ACUTE AND CHRONIC RESPIRATORY FAILURE WITH HYPERCAPNIA (11) History of PSVT (paroxysmal supraventricular tachycardia) Code(s): Z86.79 - PERSONAL HISTORY OF OTHER DISEASES OF THE CIRCULATORY SYSTEM (12) Anemia Assessment/Plan: hgb stable Code(s): D64.9 - ANEMIA, UNSPECIFIED (13) NSTEMI (non-ST elevated myocardial infarction) Assessment/Plan: acute nstemi stable Code(s): I21.4 - NON-ST ELEVATION (NSTEMI) MYOCARDIAL INFARCTION (14) GI (gastrointestinal bleed) Assessment/Plan: cbc stable Code(s): K92.2 - GASTROINTESTINAL HEMORRHAGE, UNSPECIFIED (15) Decubital ulcer Assessment/Plan: now stage 3 will get wound care involved Code(s): L89.90 - PRESSURE ULCER OF UNSPECIFIED SITE, UNSPECIFIED STAGE
[2016-07-18] MEDS: OLANZapine 2.5 MG TABLET PO SCH (23:48)
[2016-07-18] MEDS: ATORVASTATIN CA 80 MG TABLET (FP) PO SCH (23:48)
[2016-07-19] MEDS: INSULIN DETEMIR 100 UNITS/ML MDV SQ SCH ×2 (00:21→21:34)
[2016-07-19] MEDS: BUDESONIDE/FORMETEROL FUMARATE 160/4.5 mcg INHALER IH SCH ×3 (00:22→21:17)
[2016-07-19] MEDS ORDERED: PT OWN MED DRAWER 7, Y5N ONE ×3 (00:25→16:44)
[2016-07-19] MEDS ORDERED: dilTIAZem HCL 30 MG TABLET (FP) ONE ×4 (01:35→16:43)
[2016-07-19] MEDS ORDERED: dilTIAZem HCL 60 MG TABLET (FP) ONE ×4 (01:35→16:43)
[2016-07-19] MEDS: DILTIAZEM 60 MG, DILTIAZEM 30 MG PO SCH ×4 (02:02→18:06)
[2016-07-19] MEDS: FUROSEMIDE 40 MG TABLET (FP) PO SCH ×2 (06:35→13:52)
[2016-07-19] MEDS: hydrALAZINE HCL 10 MG TABLET PO SCH ×3 (06:35→21:17)
[2016-07-19] MEDS: INSULIN SLIDING SCALE (NOVOLOG) 1 VIAL SQ SCH ×3 (06:45→16:19)
--- NOTE | 2016-07-19 09:22 | PN ---
Progress Note (short form) - Note Progress Note: Vascular Surgery/Wound care- Dr. Rowland 75 yo F patient seen for sacral decubitus ulcer. Last Vital Signs Temp Pulse Resp BP Pulse Ox 98 F 94 H 28 H 130/57 98 07/19/16 08:30 07/19/16 08:30 07/19/16 08:30 07/19/16 08:30 07/18/16 22:00 Exam: Gen: NAD Sacrum: approx. 6x6cm stage 3 sacral decubitus ulcer, no bone exposed, pink with some fibrinous material, no drainage or odor A/P Sacral decubitus ulcer Apply Santyl wet to dry dressing daily to areas with fribrinous tissue until clean Frequent Repositioning Offload remaining pressure sensitive areas Cont medical management Re-consult surgery PRN
--- NOTE | 2016-07-19 09:44 | PN ---
Progress Note, Physician Chief Complaint: no distress BIPAP on Alert - Current Medication List Current Medications: Active Medications Acetaminophen (Tylenol -) 650 mg PO Q4H PRN PRN Reason: FEVER OR PAIN Last Admin: 07/18/16 09:37 Dose: 650 mg Acetaminophen (Tylenol -) 325 mg PO Q6H PRN PRN Reason: PAIN Last Admin: 07/11/16 20:02 Dose: 325 mg Atorvastatin Calcium (Lipitor -) 80 mg PO HS [facility] Last Admin: 07/18/16 23:48 Dose: 80 mg Budesonide/Formoterol Fumarate (Symbicort 160/4.5mcg -) 2 puff IH BID [facility] Last Admin: 07/19/16 00:22 Dose: Not Given Clonazepam (Klonopin -) 0.5 mg PO Q8H PRN PRN Reason: ANXIETY Last Admin: 07/18/16 16:30 Dose: 0.5 mg Collagenase (Santyl -) 1 applic TP DAILY [facility] Diltiazem HCl (Cardizem Injection -) 10 mg IVPUSH Q4H PRN PRN Reason: TACHYCARDIA Diltiazem HCl 60 mg/ Diltiazem (HCl 30 mg) 90 mg PO Q6HPO [facility] Last Admin: 07/19/16 06:35 Dose: 90 mg Furosemide (Lasix -) 40 mg PO BID@0600,1400 [facility] Last Admin: 07/19/16 06:35 Dose: 40 mg Hydralazine HCl (Apresoline -) 10 mg PO TID [facility] Last Admin: 07/19/16 06:35 Dose: 10 mg Insulin Aspart (Novolog Vial Sliding Scale -) 1 vial SQ TIDAC [facility] PRN Reason: Protocol Last Admin: 07/19/16 06:45 Dose: Not Given Insulin Detemir (Levemir Vial) 5 units SQ [facility] Last Admin: 07/19/16 00:21 Dose: 5 units Levofloxacin (Levaquin -) 750 mg PO DAILY [facility] Last Admin: 07/18/16 09:38 Dose: 750 mg Nitroglycerin (Nitrostat -) 0.4 mg SL Q5M PRN PRN Reason: FOR CHEST PAIN Olanzapine (Zyprexa -) 2.5 mg PO BID [facility] Last Admin: 07/18/16 23:48 Dose: 2.5 mg Pantoprazole Sodium (Protonix -) 40 mg PO BID [facility] Last Admin: 07/18/16 23:48 Dose: 40 mg Prednisone (Deltasone -) 10 mg PO DAILY [facility] Last Admin: 07/18/16 09:38 Dose: 10 mg - Objective Vital Signs: Vital Signs Temperature 98 F 07/19/16 08:30 Pulse Rate 94 H 07/19/16 08:30 Respiratory Rate 28 H 07/19/16 08:30 Blood Pressure 130/57 07/19/16 08:30 O2 Sat by Pulse Oximetry (%) 98 07/18/16 22:00 Eyes: Yes: Conjunctiva Clear Cardiovascular: Yes: Regular Rate and Rhythm Respiratory: Yes: Other (decreased breath sounds bilaterally c/w COPD.) Gastrointestinal: Yes: Soft, Abdomen, Obese Edema: No Labs: CBC, BMP 07/12/16 05:35 07/12/16 05:35 INR, PTT INR 1.02 (0.82-1.09) 06/09/16 05:05 Assessment/Plan Assessment/Plan Recurrent acute respiratory failure requiring re-intubation, refused trach first intubation, now extubated Bilateral PNA Anemia PSVT and PAF CAD s/p NSTEMI Mild COPD REC: Respiratory failure-requiring intubation during admission, multifactorial -slowly improving PSVT-adequately controlled -cont Cardizem 90mg po q6h Pafib-brief episodes during hospitalization -Holding ASA due to anemia, High risk for anticoagulation (for PAF) due to traumatic subdural hematoma and anemia with guaiac + stool -cont cardizem as above CAD-h/o PCI years ago, chronic angina, mild NSTEMI -stable -ASA on hold as above -not on bblocker due to severe COPD -cont statin Acute on chronic diastolic CHF-currently euvolemic -Cont Lasix 40mg PO BID -would check bun/creat, electrolytes today or tomorrow Aortic stenosis-mild -outpatient follow up
[2016-07-19] MEDS: predniSONE 10 MG TABLET (UD) PO SCH (10:36)
[2016-07-19] MEDS: OLANZapine 2.5 MG TABLET PO SCH ×2 (10:36→21:17)
[2016-07-19] MEDS: PANTOPRAZOLE 40 MG TABLET (FP) PO SCH ×2 (10:36→21:17)
[2016-07-19] MEDS: LEVOFLOXACIN 250 MG TABLET (FP) PO SCH (10:37)
--- NOTE | 2016-07-19 11:42 | PN ---
Progress Note (short form) - Note Progress Note: PULMONARY More alert, awake. On/off BiPAP. Last Vital Signs Temp Pulse Resp BP Pulse Ox 98.5 F 95 H 26 H 136/56 98 07/19/16 10:25 07/19/16 10:25 07/19/16 10:25 07/19/16 10:25 07/19/16 09:20 Gen: mildly tachypneic at rest Heart: RRR Lung: scattered rhonchi Abd: soft, nontender Ext: no edema CBC, BMP 07/12/16 05:35 07/12/16 05:35 Active Medications Acetaminophen (Tylenol -) 650 mg PO Q4H PRN PRN Reason: FEVER OR PAIN Last Admin: 07/18/16 09:37 Dose: 650 mg Acetaminophen (Tylenol -) 325 mg PO Q6H PRN PRN Reason: PAIN Last Admin: 07/11/16 20:02 Dose: 325 mg Atorvastatin Calcium (Lipitor -) 80 mg PO [facility] Last Admin: 07/18/16 23:48 Dose: 80 mg Budesonide/Formoterol Fumarate (Symbicort 160/4.5mcg -) 2 puff IH BID [facility] Last Admin: 07/19/16 10:36 Dose: 2 puff Clonazepam (Klonopin -) 0.5 mg PO Q8H PRN PRN Reason: ANXIETY Last Admin: 07/18/16 16:30 Dose: 0.5 mg Collagenase (Santyl -) 1 applic TP DAILY [facility] Diltiazem HCl (Cardizem Injection -) 10 mg IVPUSH Q4H PRN PRN Reason: TACHYCARDIA Diltiazem HCl 60 mg/ Diltiazem (HCl 30 mg) 90 mg PO Q6HPO [facility] Last Admin: 07/19/16 06:35 Dose: 90 mg Furosemide (Lasix -) 40 mg PO BID@0600,1400 [facility] Last Admin: 07/19/16 06:35 Dose: 40 mg Hydralazine HCl (Apresoline -) 10 mg PO TID [facility] Last Admin: 07/19/16 06:35 Dose: 10 mg Insulin Aspart (Novolog Vial Sliding Scale -) 1 vial SQ TIDAC [facility] PRN Reason: Protocol Last Admin: 07/19/16 06:45 Dose: Not Given Insulin Detemir (Levemir Vial) 5 units SQ [facility] Last Admin: 07/19/16 00:21 Dose: 5 units Levofloxacin (Levaquin -) 750 mg PO DAILY [facility] Last Admin: 07/19/16 10:37 Dose: 750 mg Nitroglycerin (Nitrostat -) 0.4 mg SL Q5M PRN PRN Reason: FOR CHEST PAIN Olanzapine (Zyprexa -) 2.5 mg PO BID [facility] Last Admin: 07/19/16 10:36 Dose: 2.5 mg Pantoprazole Sodium (Protonix -) 40 mg PO BID [facility] Last Admin: 07/19/16 10:36 Dose: 40 mg Prednisone (Deltasone -) 10 mg PO DAILY [facility] Last Admin: 07/19/16 10:36 Dose: 10 mg A/P Acute on Chronic Hypoxic and Hypercapneic Respiratory Failure PSVT LV Diastolic Dysfunction Pneumonia - ?Aspiration Acute COPD Exacerbation CAD +Troponins/Acute NSTEMI h/o Breast Ca 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
[2016-07-19] MEDS: ACETAMINOPHEN 325 MG TABLET (FP) PO PRN (12:14)
--- NOTE | 2016-07-19 12:58 | PN ---
Progress Note, Physician History of Present Illness: patient looks stable very anxious no new issues - Current Medication List Current Medications: Active Medications Acetaminophen (Tylenol -) 650 mg PO Q4H PRN PRN Reason: FEVER OR PAIN Last Admin: 07/19/16 12:14 Dose: 650 mg Acetaminophen (Tylenol -) 325 mg PO Q6H PRN PRN Reason: PAIN Last Admin: 07/11/16 20:02 Dose: 325 mg Atorvastatin Calcium (Lipitor -) 80 mg PO HS [facility] Last Admin: 07/18/16 23:48 Dose: 80 mg Budesonide/Formoterol Fumarate (Symbicort 160/4.5mcg -) 2 puff IH BID [facility] Last Admin: 07/19/16 10:36 Dose: 2 puff Clonazepam (Klonopin -) 0.5 mg PO Q8H PRN PRN Reason: ANXIETY Last Admin: 07/18/16 16:30 Dose: 0.5 mg Collagenase (Santyl -) 1 applic TP DAILY [facility] Diltiazem HCl (Cardizem Injection -) 10 mg IVPUSH Q4H PRN PRN Reason: TACHYCARDIA Diltiazem HCl 60 mg/ Diltiazem (HCl 30 mg) 90 mg PO Q6HPO [facility] Last Admin: 07/19/16 12:31 Dose: 90 mg Furosemide (Lasix -) 40 mg PO BID@0600,1400 [facility] Last Admin: 07/19/16 06:35 Dose: 40 mg Hydralazine HCl (Apresoline -) 10 mg PO TID [facility] Last Admin: 07/19/16 06:35 Dose: 10 mg Insulin Aspart (Novolog Vial Sliding Scale -) 1 vial SQ TIDAC [facility] PRN Reason: Protocol Last Admin: 07/19/16 12:08 Dose: 6 units Insulin Detemir (Levemir Vial) 5 units SQ [facility] Last Admin: 07/19/16 00:21 Dose: 5 units Levofloxacin (Levaquin -) 750 mg PO DAILY [facility] Last Admin: 07/19/16 10:37 Dose: 750 mg Nitroglycerin (Nitrostat -) 0.4 mg SL Q5M PRN PRN Reason: FOR CHEST PAIN Olanzapine (Zyprexa -) 2.5 mg PO BID [facility] Last Admin: 07/19/16 10:36 Dose: 2.5 mg Pantoprazole Sodium (Protonix -) 40 mg PO BID [facility] Last Admin: 07/19/16 10:36 Dose: 40 mg Prednisone (Deltasone -) 10 mg PO DAILY [facility] Last Admin: 07/19/16 10:36 Dose: 10 mg - Objective Vital Signs: Vital Signs Temperature 98.5 F 07/19/16 10:25 Pulse Rate 92 H 07/19/16 12:30 Respiratory Rate 24 07/19/16 12:30 Blood Pressure 137/63 07/19/16 12:30 O2 Sat by Pulse Oximetry (%) 97 07/19/16 11:49 Constitutional: Yes: No Distress, Calm Eyes: Yes: Conjunctiva Clear Cardiovascular: Yes: Regular Rate and Rhythm Respiratory: Yes: Regular, Rhonchi Gastrointestinal: Yes: Normal Bowel Sounds, Soft Musculoskeletal: Yes: WNL Extremities: Yes: WNL Wound/Incision: Yes: Dressing Dry and Intact Neurological: Yes: Confusion Psychiatric: Yes: Alert, Other Labs: CBC, BMP 07/12/16 05:35 07/12/16 05:35 INR, PTT INR 1.02 (0.82-1.09) 06/09/16 05:05 Assessment/Plan Problem List - Problems (1) Aortic stenosis Code(s): I35.0 - NONRHEUMATIC AORTIC (VALVE) STENOSIS (2) History of PSVT (paroxysmal supraventricular tachycardia) Code(s): Z86.79 - PERSONAL HISTORY OF OTHER DISEASES OF THE CIRCULATORY SYSTEM (3) NSTEMI (non-ST elevated myocardial infarction) Code(s): I21.4 - NON-ST ELEVATION (NSTEMI) MYOCARDIAL INFARCTION (4) Respiratory failure Code(s): J96.90 - RESPIRATORY FAILURE, UNSP, UNSP W HYPOXIA OR HYPERCAPNIA Qualifiers: Chronicity: acute Respiratory failure complication: hypoxia and hypercapnia Qualified Code(s): J96.01 - Acute respiratory failure with hypoxia (5) Pulmonary hypertension Code(s): I27.2 - OTHER SECONDARY PULMONARY HYPERTENSION (6) Pulmonary nodules Code(s): R91.8 - OTHER NONSPECIFIC ABNORMAL FINDING OF LUNG FIELD (7) COPD (chronic obstructive pulmonary disease) Code(s): J44.9 - CHRONIC OBSTRUCTIVE PULMONARY DISEASE, UNSPECIFIED (8) History of cigarette smoking Code(s): Z87.891 - PERSONAL HISTORY OF NICOTINE DEPENDENCE (9) Acute on chronic respiratory failure with hypoxia and hypercapnia Code(s): J96.21 - ACUTE AND CHRONIC RESPIRATORY FAILURE WITH HYPOXIA J96.22 - ACUTE AND CHRONIC RESPIRATORY FAILURE WITH HYPERCAPNIAEPENDENCE +Troponins/Acute NSTEMI Lactic Acidosis h/o Breast Ca Lung Nodules with recent biopsy showing necrotizing granulomas Smoker pseudomonas pneumonia uti patient is going in a little bit confusion plan will stop levaquin soon wound care rest as per primary
[2016-07-19] MEDS: COLLAGENASE CLOSTRIDIUM HIST. 30 GRAMS TUBE TP SCH (16:50)
--- NOTE | 2016-07-19 18:27 | PN ---
Progress Note, Physician History of Present Illness: stable - Current Medication List Current Medications: Active Medications Acetaminophen (Tylenol -) 650 mg PO Q4H PRN PRN Reason: FEVER OR PAIN Last Admin: 07/19/16 12:14 Dose: 650 mg Acetaminophen (Tylenol -) 325 mg PO Q6H PRN PRN Reason: PAIN Last Admin: 07/11/16 20:02 Dose: 325 mg Atorvastatin Calcium (Lipitor -) 80 mg PO HS [facility] Last Admin: 07/18/16 23:48 Dose: 80 mg Budesonide/Formoterol Fumarate (Symbicort 160/4.5mcg -) 2 puff IH BID [facility] Last Admin: 07/19/16 10:36 Dose: 2 puff Clonazepam (Klonopin -) 0.5 mg PO Q8H PRN PRN Reason: ANXIETY Last Admin: 07/18/16 16:30 Dose: 0.5 mg Collagenase (Santyl -) 1 applic TP DAILY [facility] Last Admin: 07/19/16 16:50 Dose: 1 applic Diltiazem HCl (Cardizem Injection -) 10 mg IVPUSH Q4H PRN PRN Reason: TACHYCARDIA Diltiazem HCl 60 mg/ Diltiazem (HCl 30 mg) 90 mg PO Q6HPO [facility] Last Admin: 07/19/16 18:06 Dose: Not Given Furosemide (Lasix -) 40 mg PO BID@0600,1400 [facility] Last Admin: 07/19/16 13:52 Dose: Not Given Hydralazine HCl (Apresoline -) 10 mg PO TID [facility] Last Admin: 07/19/16 13:52 Dose: Not Given Insulin Aspart (Novolog Vial Sliding Scale -) 1 vial SQ TIDAC [facility] PRN Reason: Protocol Last Admin: 07/19/16 16:19 Dose: 6 units Insulin Detemir (Levemir Vial) 5 units SQ [facility] Last Admin: 07/19/16 00:21 Dose: 5 units Levofloxacin (Levaquin -) 750 mg PO DAILY [facility] Last Admin: 07/19/16 10:37 Dose: 750 mg Nitroglycerin (Nitrostat -) 0.4 mg SL Q5M PRN PRN Reason: FOR CHEST PAIN Olanzapine (Zyprexa -) 2.5 mg PO BID [facility] Last Admin: 07/19/16 10:36 Dose: 2.5 mg Pantoprazole Sodium (Protonix -) 40 mg PO BID [facility] Last Admin: 07/19/16 10:36 Dose: 40 mg Prednisone (Deltasone -) 10 mg PO DAILY [facility] Last Admin: 07/19/16 10:36 Dose: 10 mg - Objective Vital Signs: Vital Signs Temperature 98.9 F 07/19/16 18:03 Pulse Rate 92 H 07/19/16 18:03 Respiratory Rate 28 H 07/19/16 18:03 Blood Pressure 104/50 07/19/16 18:03 O2 Sat by Pulse Oximetry (%) 95 07/19/16 17:45 Constitutional: Yes: No Distress HENT: Yes: Atraumatic Neck: Yes: Supple Cardiovascular: Yes: Regular Rate and Rhythm Respiratory: Yes: Rhonchi Gastrointestinal: Yes: Normal Bowel Sounds Extremities: Yes: WNL Neurological: Yes: Alert, Oriented Labs: CBC, BMP 07/12/16 05:35 07/12/16 05:35 INR, PTT INR 1.02 (0.82-1.09) 06/09/16 05:05 Problem List - Problems (1) Respiratory failure Assessment/Plan: on bipap/nc prn apiration pna on abx..po on steroids..taper Code(s): J96.90 - RESPIRATORY FAILURE, UNSP, UNSP W HYPOXIA OR HYPERCAPNIA Qualifiers: Chronicity: acute Respiratory failure complication: hypoxia and hypercapnia Qualified Code(s): J96.01 - Acute respiratory failure with hypoxia (2) Chronic respiratory failure with hypoxia Assessment/Plan: duo nebs steroids taper Code(s): J96.11 - CHRONIC RESPIRATORY FAILURE WITH HYPOXIA (3) CAD (coronary artery disease) Assessment/Plan: on meds follow up labs continue current meds Code(s): I25.10 - ATHSCL HEART DISEASE OF [place] CORONARY ARTERY W/O ANG PCTRS (4) COPD (chronic obstructive pulmonary disease) Assessment/Plan: on meds stable steroids duo nebs Code(s): J44.9 - CHRONIC OBSTRUCTIVE PULMONARY DISEASE, UNSPECIFIED (5) Chronic diastolic CHF (congestive heart failure) Assessment/Plan: stable on meds Code(s): I50.32 - CHRONIC DIASTOLIC (CONGESTIVE) HEART FAILURE (6) HLD (hyperlipidemia) Assessment/Plan: on meds Code(s): E78.5 - HYPERLIPIDEMIA, UNSPECIFIED Qualifiers: Hyperlipidemia type: unspecified Qualified Code(s): E78.5 - Hyperlipidemia, unspecified (7) HTN (hypertension) Code(s): I10 - ESSENTIAL (PRIMARY) HYPERTENSION Qualifiers: Hypertension type: essential hypertension Qualified Code(s): I10 - Essential (primary) hypertension (8) History of cigarette smoking Code(s): Z87.891 - PERSONAL HISTORY OF NICOTINE DEPENDENCE (9) Influenza Assessment/Plan: on meds id consult Code(s): J11.1 - FLU DUE TO UNIDENTIFIED INFLUENZA VIRUS W OTH RESP MANIFEST (10) Acute on chronic respiratory failure with hypoxia and hypercapnia Code(s): J96.21 - ACUTE AND CHRONIC RESPIRATORY FAILURE WITH HYPOXIA J96.22 - ACUTE AND CHRONIC RESPIRATORY FAILURE WITH HYPERCAPNIA (11) History of PSVT (paroxysmal supraventricular tachycardia) Code(s): Z86.79 - PERSONAL HISTORY OF OTHER DISEASES OF THE CIRCULATORY SYSTEM (12) Anemia Assessment/Plan: hgb stable Code(s): D64.9 - ANEMIA, UNSPECIFIED (13) NSTEMI (non-ST elevated myocardial infarction) Assessment/Plan: acute nstemi stable Code(s): I21.4 - NON-ST ELEVATION (NSTEMI) MYOCARDIAL INFARCTION (14) GI (gastrointestinal bleed) Assessment/Plan: cbc stable Code(s): K92.2 - GASTROINTESTINAL HEMORRHAGE, UNSPECIFIED (15) Decubital ulcer Assessment/Plan: now stage 3 will get wound care involved Code(s): L89.90 - PRESSURE ULCER OF UNSPECIFIED SITE, UNSPECIFIED STAGE Assessment/Plan 1.+Influenza treated 2.Acute respiratory failure ON FACE MASK RLL INFILTERATE ON ABX AND DUO NEBS 3.ANEMIA STABLE 4.NSTEMI 5.History breast cancer, lung mass with negative bx 6.COPD, chronic with chronic hypoxemia 7.chf STABLE 8.LOWER GI BLEED...stable s/p blood transfusion FU CBC IV PROTONIX BID 9.DYSPHAGIA REFUSING BARIUM SWALLOW ON DYSPAGIA DIET dc to snf
[2016-07-19] MEDS: ATORVASTATIN CA 80 MG TABLET (FP) PO SCH (21:17)
[2016-07-19] MEDS: clonazePAM 0.5 MG TABLET PO PRN (21:17)
[2016-07-20] MEDS: DILTIAZEM 60 MG, DILTIAZEM 30 MG PO SCH ×4 (00:27→18:00)
[2016-07-20] MEDS ORDERED: dilTIAZem HCL 60 MG TABLET (FP) ONE ×4 (05:41→23:36)
[2016-07-20] MEDS ORDERED: dilTIAZem HCL 30 MG TABLET (FP) ONE ×4 (05:41→23:36)
[2016-07-20] MEDS: hydrALAZINE HCL 10 MG TABLET PO SCH ×3 (05:49→21:50)
[2016-07-20] MEDS: FUROSEMIDE 40 MG TABLET (FP) PO SCH ×2 (05:49→14:17)
[2016-07-20] MEDS: INSULIN SLIDING SCALE (NOVOLOG) 1 VIAL SQ SCH ×3 (06:11→17:24)
[2016-07-20] MEDS: clonazePAM 0.5 MG TABLET PO PRN ×2 (08:48→18:29)
[2016-07-20] MEDS: ACETAMINOPHEN 325 MG TABLET (FP) PO PRN ×2 (08:49→18:12)
--- NOTE | 2016-07-20 09:45 | PN ---
Progress Note, Physician Chief Complaint: denies chest pain, but feels SOB - Current Medication List Current Medications: Active Medications Acetaminophen (Tylenol -) 650 mg PO Q4H PRN PRN Reason: FEVER OR PAIN Last Admin: 07/20/16 08:49 Dose: 650 mg Acetaminophen (Tylenol -) 325 mg PO Q6H PRN PRN Reason: PAIN Last Admin: 07/11/16 20:02 Dose: 325 mg Atorvastatin Calcium (Lipitor -) 80 mg PO HS [facility] Last Admin: 07/19/16 21:17 Dose: 80 mg Budesonide/Formoterol Fumarate (Symbicort 160/4.5mcg -) 2 puff IH BID [facility] Last Admin: 07/19/16 21:17 Dose: 2 puff Clonazepam (Klonopin -) 0.5 mg PO Q8H PRN PRN Reason: ANXIETY Last Admin: 07/20/16 08:48 Dose: 0.5 mg Collagenase (Santyl -) 1 applic TP DAILY [facility] Last Admin: 07/19/16 16:50 Dose: 1 applic Diltiazem HCl (Cardizem Injection -) 10 mg IVPUSH Q4H PRN PRN Reason: TACHYCARDIA Diltiazem HCl 60 mg/ Diltiazem (HCl 30 mg) 90 mg PO Q6HPO [facility] Last Admin: 07/20/16 05:49 Dose: 90 mg Furosemide (Lasix -) 40 mg PO BID@0600,1400 [facility] Last Admin: 07/20/16 05:49 Dose: 40 mg Hydralazine HCl (Apresoline -) 10 mg PO TID [facility] Last Admin: 07/20/16 05:49 Dose: 10 mg Insulin Aspart (Novolog Vial Sliding Scale -) 1 vial SQ TIDAC [facility] PRN Reason: Protocol Last Admin: 07/20/16 06:11 Dose: Not Given Insulin Detemir (Levemir Vial) 5 units SQ [facility] Last Admin: 07/19/16 21:34 Dose: 5 units Levofloxacin (Levaquin -) 750 mg PO DAILY [facility] Last Admin: 07/19/16 10:37 Dose: 750 mg Nitroglycerin (Nitrostat -) 0.4 mg SL Q5M PRN PRN Reason: FOR CHEST PAIN Olanzapine (Zyprexa -) 2.5 mg PO BID [facility] Last Admin: 07/19/16 21:17 Dose: 2.5 mg Pantoprazole Sodium (Protonix -) 40 mg PO BID [facility] Last Admin: 07/19/16 21:17 Dose: 40 mg Prednisone (Deltasone -) 10 mg PO DAILY [facility] Last Admin: 07/19/16 10:36 Dose: 10 mg - Objective Vital Signs: Vital Signs Temperature 97.4 F L 07/20/16 06:00 Pulse Rate 94 H 07/20/16 08:15 Respiratory Rate 24 07/20/16 08:00 Blood Pressure 102/60 07/20/16 08:00 O2 Sat by Pulse Oximetry (%) 95 07/20/16 08:15 Cardiovascular: Yes: Regular Rate and Rhythm Respiratory: Yes: Other (bilateral rhonchi and decreased breath sounds bilaterally) Gastrointestinal: Yes: Soft Edema: No Neurological: Yes: Alert, Oriented Labs: CBC, BMP 07/12/16 05:35 07/12/16 05:35 INR, PTT INR 1.02 (0.82-1.09) 06/09/16 05:05 Assessment/Plan Assessment/Plan Recurrent acute respiratory failure requiring re-intubation, refused trach first intubation, now extubated Bilateral PNA Anemia PSVT and PAF CAD s/p NSTEMI Mild COPD REC: Respiratory failure-requiring intubation during admission, multifactorial -continue BiPAP as needed -refused trach PSVT-adequately controlled -cont Cardizem 90mg po q6h Pafib-brief episodes during hospitalization -Holding ASA due to anemia, High risk for anticoagulation (for PAF) due to traumatic subdural hematoma and anemia with guaiac + stool -cont cardizem as above CAD-h/o PCI years ago, chronic angina, mild NSTEMI -stable -ASA on hold as above -not on bblocker due to severe COPD -cont statin Acute on chronic diastolic CHF-currently euvolemic -Continue LAsix, refuses Labs Aortic stenosis-mild -outpatient follow up
[2016-07-20] MEDS ORDERED: PT OWN MED DRAWER 7, Y5N ONE (11:03)
[2016-07-20] MEDS: predniSONE 10 MG TABLET (UD) PO SCH ×2 (11:04→11:51)
[2016-07-20] MEDS: OLANZapine 2.5 MG TABLET PO SCH ×3 (11:05→21:50)
[2016-07-20] MEDS: BUDESONIDE/FORMETEROL FUMARATE 160/4.5 mcg INHALER IH SCH ×3 (11:05→21:50)
[2016-07-20] MEDS: PANTOPRAZOLE 40 MG TABLET (FP) PO SCH ×3 (11:05→21:50)
[2016-07-20] MEDS: LEVOFLOXACIN 250 MG TABLET (FP) PO SCH ×2 (11:05→11:52)
--- NOTE | 2016-07-20 12:16 | PN ---
Progress Note, [employer] - Note Progress Note: Verbal but confused for me. Psychiatric note reports lacking capacity. Pt continues to refuse MBS. Continue pureed diet and thickened liquid for now. Vocal quality intermittently sttonger. Pt still using BIPAP intermittently. Selected Entries 07/19/16 07/19/16 07/19/16 06:00 08:30 10:25 Breakfast Supper Temperature 98.9 F 98 F 98.5 F 07/19/16 07/19/16 07/19/16 15:34 18:03 19:48 Breakfast Supper 75% Temperature 98.1 F 98.9 F 07/19/16 07/20/16 07/20/16 21:15 02:00 06:00 Breakfast Supper Temperature 98.2 F 97.6 F 97.4 F L 07/20/16 07/20/16 11:48 11:56 Breakfast 50% Supper Temperature 98.3 F
--- NOTE | 2016-07-20 12:48 | PN ---
Progress Note, Physician History of Present Illness: anxious still confusion - Current Medication List Current Medications: Active Medications Acetaminophen (Tylenol -) 650 mg PO Q4H PRN PRN Reason: FEVER OR PAIN Last Admin: 07/20/16 08:49 Dose: 650 mg Acetaminophen (Tylenol -) 325 mg PO Q6H PRN PRN Reason: PAIN Last Admin: 07/11/16 20:02 Dose: 325 mg Atorvastatin Calcium (Lipitor -) 80 mg PO HS [facility] Last Admin: 07/19/16 21:17 Dose: 80 mg Budesonide/Formoterol Fumarate (Symbicort 160/4.5mcg -) 2 puff IH BID [facility] Last Admin: 07/20/16 11:53 Dose: 2 puff Clonazepam (Klonopin -) 0.5 mg PO Q8H PRN PRN Reason: ANXIETY Last Admin: 07/20/16 08:48 Dose: 0.5 mg Collagenase (Santyl -) 1 applic TP DAILY [facility] Last Admin: 07/19/16 16:50 Dose: 1 applic Diltiazem HCl (Cardizem Injection -) 10 mg IVPUSH Q4H PRN PRN Reason: TACHYCARDIA Diltiazem HCl 60 mg/ Diltiazem (HCl 30 mg) 90 mg PO Q6HPO [facility] Last Admin: 07/20/16 11:52 Dose: 90 mg Furosemide (Lasix -) 40 mg PO BID@0600,1400 [facility] Last Admin: 07/20/16 05:49 Dose: 40 mg Hydralazine HCl (Apresoline -) 10 mg PO TID [facility] Last Admin: 07/20/16 05:49 Dose: 10 mg Insulin Aspart (Novolog Vial Sliding Scale -) 1 vial SQ TIDAC [facility] PRN Reason: Protocol Last Admin: 07/20/16 12:01 Dose: 2 units Insulin Detemir (Levemir Vial) 5 units SQ [facility] Last Admin: 07/19/16 21:34 Dose: 5 units Levofloxacin (Levaquin -) 750 mg PO DAILY [facility] Last Admin: 07/20/16 11:52 Dose: 750 mg Nitroglycerin (Nitrostat -) 0.4 mg SL Q5M PRN PRN Reason: FOR CHEST PAIN Olanzapine (Zyprexa -) 2.5 mg PO BID [facility] Last Admin: 07/20/16 11:52 Dose: 2.5 mg Pantoprazole Sodium (Protonix -) 40 mg PO BID [facility] Last Admin: 07/20/16 11:52 Dose: 40 mg Prednisone (Deltasone -) 10 mg PO DAILY [facility] Last Admin: 07/20/16 11:51 Dose: 10 mg - Objective Vital Signs: Vital Signs Temperature 98.3 F 07/20/16 11:48 Pulse Rate 84 07/20/16 11:48 Respiratory Rate 28 H 07/20/16 11:48 Blood Pressure 140/69 07/20/16 11:48 O2 Sat by Pulse Oximetry (%) 95 07/20/16 12:15 Constitutional: Yes: Anxious HENT: Yes: Atraumatic Cardiovascular: Yes: Regular Rate and Rhythm Respiratory: Yes: Regular, Rhonchi Gastrointestinal: Yes: Normal Bowel Sounds, Soft Musculoskeletal: Yes: WNL Extremities: Yes: WNL Wound/Incision: Yes: Other (decubitus ulcer) Neurological: Yes: Alert, Confusion Psychiatric: Yes: Alert Labs: CBC, BMP 07/12/16 05:35 07/12/16 05:35 INR, PTT INR 1.02 (0.82-1.09) 06/09/16 05:05 Assessment/Plan Problem List - Problems (1) Aortic stenosis Code(s): I35.0 - NONRHEUMATIC AORTIC (VALVE) STENOSIS (2) History of PSVT (paroxysmal supraventricular tachycardia) Code(s): Z86.79 - PERSONAL HISTORY OF OTHER DISEASES OF THE CIRCULATORY SYSTEM (3) NSTEMI (non-ST elevated myocardial infarction) Code(s): I21.4 - NON-ST ELEVATION (NSTEMI) MYOCARDIAL INFARCTION (4) Respiratory failure Code(s): J96.90 - RESPIRATORY FAILURE, UNSP, UNSP W HYPOXIA OR HYPERCAPNIA Qualifiers: Chronicity: acute Respiratory failure complication: hypoxia and hypercapnia Qualified Code(s): J96.01 - Acute respiratory failure with hypoxia (5) Pulmonary hypertension Code(s): I27.2 - OTHER SECONDARY PULMONARY HYPERTENSION (6) Pulmonary nodules Code(s): R91.8 - OTHER NONSPECIFIC ABNORMAL FINDING OF LUNG FIELD (7) COPD (chronic obstructive pulmonary disease) Code(s): J44.9 - CHRONIC OBSTRUCTIVE PULMONARY DISEASE, UNSPECIFIED (8) History of cigarette smoking Code(s): Z87.891 - PERSONAL HISTORY OF NICOTINE DEPENDENCE (9) Acute on chronic respiratory failure with hypoxia and hypercapnia Code(s): J96.21 - ACUTE AND CHRONIC RESPIRATORY FAILURE WITH HYPOXIA J96.22 - ACUTE AND CHRONIC RESPIRATORY FAILURE WITH HYPERCAPNIAEPENDENCE +Troponins/Acute NSTEMI Lactic Acidosis h/o Breast Ca Lung Nodules with recent biopsy showing necrotizing granulomas Smoker pseudomonas pneumonia uti patient is going in a little bit confusion plan stopped levaquin wound care rest as per primary
--- NOTE | 2016-07-20 12:56 | PN ---
Progress Note, Physician History of Present Illness: pulmonary awake,still dyspneic at rest,Mild congestion - Current Medication List Current Medications: Active Medications Acetaminophen (Tylenol -) 650 mg PO Q4H PRN PRN Reason: FEVER OR PAIN Last Admin: 07/20/16 08:49 Dose: 650 mg Acetaminophen (Tylenol -) 325 mg PO Q6H PRN PRN Reason: PAIN Last Admin: 07/11/16 20:02 Dose: 325 mg Atorvastatin Calcium (Lipitor -) 80 mg PO HS [facility] Last Admin: 07/19/16 21:17 Dose: 80 mg Budesonide/Formoterol Fumarate (Symbicort 160/4.5mcg -) 2 puff IH BID [facility] Last Admin: 07/20/16 11:53 Dose: 2 puff Clonazepam (Klonopin -) 0.5 mg PO Q8H PRN PRN Reason: ANXIETY Last Admin: 07/20/16 08:48 Dose: 0.5 mg Collagenase (Santyl -) 1 applic TP DAILY [facility] Last Admin: 07/19/16 16:50 Dose: 1 applic Diltiazem HCl (Cardizem Injection -) 10 mg IVPUSH Q4H PRN PRN Reason: TACHYCARDIA Diltiazem HCl 60 mg/ Diltiazem (HCl 30 mg) 90 mg PO Q6HPO [facility] Last Admin: 07/20/16 11:52 Dose: 90 mg Furosemide (Lasix -) 40 mg PO BID@0600,1400 [facility] Last Admin: 07/20/16 05:49 Dose: 40 mg Hydralazine HCl (Apresoline -) 10 mg PO TID [facility] Last Admin: 07/20/16 05:49 Dose: 10 mg Insulin Aspart (Novolog Vial Sliding Scale -) 1 vial SQ TIDAC [facility] PRN Reason: Protocol Last Admin: 07/20/16 12:01 Dose: 2 units Insulin Detemir (Levemir Vial) 5 units SQ [facility] Last Admin: 07/19/16 21:34 Dose: 5 units Nitroglycerin (Nitrostat -) 0.4 mg SL Q5M PRN PRN Reason: FOR CHEST PAIN Olanzapine (Zyprexa -) 2.5 mg PO BID [facility] Last Admin: 07/20/16 11:52 Dose: 2.5 mg Pantoprazole Sodium (Protonix -) 40 mg PO BID [facility] Last Admin: 07/20/16 11:52 Dose: 40 mg Prednisone (Deltasone -) 10 mg PO DAILY [facility] Last Admin: 07/20/16 11:51 Dose: 10 mg - Objective Vital Signs: Vital Signs Temperature 98.3 F 07/20/16 11:48 Pulse Rate 84 07/20/16 11:48 Respiratory Rate 28 H 07/20/16 11:48 Blood Pressure 140/69 07/20/16 11:48 O2 Sat by Pulse Oximetry (%) 95 07/20/16 12:15 Constitutional: Yes: Mild Distress, Thin Eyes: Yes: WNL HENT: Yes: WNL Neck: Yes: WNL Cardiovascular: Yes: Regular Rate and Rhythm, S1, S2 Respiratory: Yes: Rhonchi (scattered alin rhonchi) Gastrointestinal: Yes: Normal Bowel Sounds, Soft Extremities: Yes: WNL Edema: No Labs: Problem List - Problems (1) Aortic stenosis Code(s): I35.0 - NONRHEUMATIC AORTIC (VALVE) STENOSIS (2) History of PSVT (paroxysmal supraventricular tachycardia) Code(s): Z86.79 - PERSONAL HISTORY OF OTHER DISEASES OF THE CIRCULATORY SYSTEM (3) NSTEMI (non-ST elevated myocardial infarction) Code(s): I21.4 - NON-ST ELEVATION (NSTEMI) MYOCARDIAL INFARCTION (4) Respiratory failure Code(s): J96.90 - RESPIRATORY FAILURE, UNSP, UNSP W HYPOXIA OR HYPERCAPNIA Qualifiers: Chronicity: acute Respiratory failure complication: hypoxia and hypercapnia Qualified Code(s): J96.01 - Acute respiratory failure with hypoxia (5) Pulmonary hypertension Code(s): I27.2 - OTHER SECONDARY PULMONARY HYPERTENSION (6) Pulmonary nodules Code(s): R91.8 - OTHER NONSPECIFIC ABNORMAL FINDING OF LUNG FIELD (7) COPD (chronic obstructive pulmonary disease) Code(s): J44.9 - CHRONIC OBSTRUCTIVE PULMONARY DISEASE, UNSPECIFIED (8) History of cigarette smoking Code(s): Z87.891 - PERSONAL HISTORY OF NICOTINE DEPENDENCE (9) Acute on chronic respiratory failure with hypoxia and hypercapnia Code(s): J96.21 - ACUTE AND CHRONIC RESPIRATORY FAILURE WITH HYPOXIA J96.22 - ACUTE AND CHRONIC RESPIRATORY FAILURE WITH HYPERCAPNIA Assessment/Plan ASSESSMENT AND PLAN: Acute on Chronic Hypoxic and Hypercapneic Respiratory Failure improving Influenza A s/p treatment Pneumonia - ?Aspiration Acute COPD Exacerbation CAD +Troponins/Acute NSTEMI h/o Breast Ca 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
[2016-07-20] MEDS ORDERED: clonazePAM 0.5 MG TABLET PO ONE (14:15)
[2016-07-20] MEDS: clonazePAM 0.5 MG TABLET PO ONE ×2 (14:20→15:43)
--- NOTE | 2016-07-20 17:36 | PN ---
Progress Note, Physician History of Present Illness: stable - Current Medication List Current Medications: Active Medications Acetaminophen (Tylenol -) 650 mg PO Q4H PRN PRN Reason: FEVER OR PAIN Last Admin: 07/20/16 08:49 Dose: 650 mg Acetaminophen (Tylenol -) 325 mg PO Q6H PRN PRN Reason: PAIN Last Admin: 07/11/16 20:02 Dose: 325 mg Atorvastatin Calcium (Lipitor -) 80 mg PO HS [facility] Last Admin: 07/19/16 21:17 Dose: 80 mg Budesonide/Formoterol Fumarate (Symbicort 160/4.5mcg -) 2 puff IH BID [facility] Last Admin: 07/20/16 11:53 Dose: 2 puff Clonazepam (Klonopin -) 0.5 mg PO Q8H PRN PRN Reason: ANXIETY Last Admin: 07/20/16 08:48 Dose: 0.5 mg Collagenase (Santyl -) 1 applic TP DAILY [facility] Last Admin: 07/19/16 16:50 Dose: 1 applic Diltiazem HCl (Cardizem Injection -) 10 mg IVPUSH Q4H PRN PRN Reason: TACHYCARDIA Diltiazem HCl 60 mg/ Diltiazem (HCl 30 mg) 90 mg PO Q6HPO [facility] Last Admin: 07/20/16 11:52 Dose: 90 mg Furosemide (Lasix -) 40 mg PO BID@0600,1400 [facility] Last Admin: 07/20/16 14:17 Dose: Not Given Hydralazine HCl (Apresoline -) 10 mg PO TID [facility] Last Admin: 07/20/16 14:17 Dose: Not Given Insulin Aspart (Novolog Vial Sliding Scale -) 1 vial SQ TIDAC [facility] PRN Reason: Protocol Last Admin: 07/20/16 17:24 Dose: 8 units Insulin Detemir (Levemir Vial) 5 units SQ [facility] Last Admin: 07/19/16 21:34 Dose: 5 units Nitroglycerin (Nitrostat -) 0.4 mg SL Q5M PRN PRN Reason: FOR CHEST PAIN Olanzapine (Zyprexa -) 2.5 mg PO BID [facility] Last Admin: 07/20/16 11:52 Dose: 2.5 mg Pantoprazole Sodium (Protonix -) 40 mg PO BID [facility] Last Admin: 07/20/16 11:52 Dose: 40 mg Prednisone (Deltasone -) 10 mg PO DAILY [facility] Last Admin: 07/20/16 11:51 Dose: 10 mg - Objective Vital Signs: Vital Signs Temperature 97.9 F 07/20/16 14:15 Pulse Rate 87 07/20/16 14:15 Respiratory Rate 24 07/20/16 14:15 Blood Pressure 104/45 07/20/16 14:15 O2 Sat by Pulse Oximetry (%) 95 07/20/16 12:15 Constitutional: Yes: Calm HENT: Yes: Atraumatic Neck: Yes: Supple Cardiovascular: Yes: Regular Rate and Rhythm Respiratory: Yes: Rhonchi Gastrointestinal: Yes: Normal Bowel Sounds Edema: No Neurological: Yes: Alert, Oriented Labs: CBC, BMP 07/12/16 05:35 07/12/16 05:35 INR, PTT INR 1.02 (0.82-1.09) 06/09/16 05:05 Problem List - Problems (1) Respiratory failure Assessment/Plan: on bipap/nc prn apiration pna on abx..po on steroids..taper Code(s): J96.90 - RESPIRATORY FAILURE, UNSP, UNSP W HYPOXIA OR HYPERCAPNIA Qualifiers: Chronicity: acute Respiratory failure complication: hypoxia and hypercapnia Qualified Code(s): J96.01 - Acute respiratory failure with hypoxia (2) Chronic respiratory failure with hypoxia Assessment/Plan: duo nebs steroids taper Code(s): J96.11 - CHRONIC RESPIRATORY FAILURE WITH HYPOXIA (3) CAD (coronary artery disease) Assessment/Plan: on meds follow up labs continue current meds Code(s): I25.10 - ATHSCL HEART DISEASE OF [place] CORONARY ARTERY W/O ANG PCTRS (4) COPD (chronic obstructive pulmonary disease) Assessment/Plan: on meds stable steroids duo nebs Code(s): J44.9 - CHRONIC OBSTRUCTIVE PULMONARY DISEASE, UNSPECIFIED (5) Chronic diastolic CHF (congestive heart failure) Assessment/Plan: stable on meds Code(s): I50.32 - CHRONIC DIASTOLIC (CONGESTIVE) HEART FAILURE (6) HLD (hyperlipidemia) Assessment/Plan: on meds Code(s): E78.5 - HYPERLIPIDEMIA, UNSPECIFIED Qualifiers: Hyperlipidemia type: unspecified Qualified Code(s): E78.5 - Hyperlipidemia, unspecified (7) HTN (hypertension) Assessment/Plan: on meds stable Code(s): I10 - ESSENTIAL (PRIMARY) HYPERTENSION Qualifiers: Hypertension type: essential hypertension Qualified Code(s): I10 - Essential (primary) hypertension (8) History of cigarette smoking Code(s): Z87.891 - PERSONAL HISTORY OF NICOTINE DEPENDENCE (9) Influenza Code(s): J11.1 - FLU DUE TO UNIDENTIFIED INFLUENZA VIRUS W OTH RESP MANIFEST (10) Acute on chronic respiratory failure with hypoxia and hypercapnia Code(s): J96.21 - ACUTE AND CHRONIC RESPIRATORY FAILURE WITH HYPOXIA J96.22 - ACUTE AND CHRONIC RESPIRATORY FAILURE WITH HYPERCAPNIA (11) History of PSVT (paroxysmal supraventricular tachycardia) Code(s): Z86.79 - PERSONAL HISTORY OF OTHER DISEASES OF THE CIRCULATORY SYSTEM (12) Anemia Assessment/Plan: hgb stable Code(s): D64.9 - ANEMIA, UNSPECIFIED (13) NSTEMI (non-ST elevated myocardial infarction) Code(s): I21.4 - NON-ST ELEVATION (NSTEMI) MYOCARDIAL INFARCTION (14) GI (gastrointestinal bleed) Code(s): K92.2 - GASTROINTESTINAL HEMORRHAGE, UNSPECIFIED (15) Decubital ulcer Assessment/Plan: now stage 3 will get wound care involved Code(s): L89.90 - PRESSURE ULCER OF UNSPECIFIED SITE, UNSPECIFIED STAGE Assessment/Plan 1.+Influenza treated 2.Acute respiratory failure ON FACE MASK RLL INFILTERATE DUO NEBS 3.ANEMIA STABLE 4.NSTEMI 5.History breast cancer, lung mass with negative bx 6.COPD, chronic with chronic hypoxemia STEROID TAPER 7.chf STABLE 8.LOWER GI BLEED...stable s/p blood transfusion FU CBC IV PROTONIX BID 9.DYSPHAGIA REFUSING BARIUM SWALLOW ON DYSPAGIA DIET ANTIBIOTICS COMPLETED dc to snf
[2016-07-20] MEDS: COLLAGENASE CLOSTRIDIUM HIST. 30 GRAMS TUBE TP SCH (19:00)
[2016-07-20] MEDS: ATORVASTATIN CA 80 MG TABLET (FP) PO SCH (21:50)
[2016-07-20] MEDS: INSULIN DETEMIR 100 UNITS/ML MDV SQ SCH (21:50)
[2016-07-21] MEDS: DILTIAZEM 60 MG, DILTIAZEM 30 MG PO SCH ×4 (00:06→17:24)
[2016-07-21] MEDS ORDERED: dilTIAZem HCL 30 MG TABLET (FP) ONE ×4 (05:55→22:17)
[2016-07-21] MEDS ORDERED: dilTIAZem HCL 60 MG TABLET (FP) ONE ×4 (05:56→22:17)
[2016-07-21] MEDS: hydrALAZINE HCL 10 MG TABLET PO SCH ×3 (06:41→22:29)
[2016-07-21] MEDS: FUROSEMIDE 40 MG TABLET (FP) PO SCH ×2 (06:42→14:35)
[2016-07-21] MEDS: INSULIN SLIDING SCALE (NOVOLOG) 1 VIAL SQ SCH ×3 (06:42→17:24)
[2016-07-21] MEDS: ACETAMINOPHEN 325 MG TABLET (FP) PO PRN ×3 (07:10→22:34)
[2016-07-21] MEDS ORDERED: PT OWN MED DRAWER 7, Y5N ONE ×3 (10:21→22:18)
[2016-07-21] MEDS: predniSONE 10 MG TABLET (UD) PO SCH (10:29)
[2016-07-21] MEDS: BUDESONIDE/FORMETEROL FUMARATE 160/4.5 mcg INHALER IH SCH ×2 (10:29→22:29)
[2016-07-21] MEDS: PANTOPRAZOLE 40 MG TABLET (FP) PO SCH ×2 (10:29→22:29)
[2016-07-21] MEDS: OLANZapine 2.5 MG TABLET PO SCH ×2 (10:30→22:30)
[2016-07-21] MEDS: COLLAGENASE CLOSTRIDIUM HIST. 30 GRAMS TUBE TP SCH (10:31)
--- NOTE | 2016-07-21 12:47 | PN ---
Progress Note (short form) - Note Progress Note: PULMONARY More alert, awake. Feeling stronger. Last Vital Signs Temp Pulse Resp BP Pulse Ox 98.0 F 99 H 22 120/72 96 07/21/16 10:00 07/21/16 10:00 07/21/16 10:00 07/21/16 10:00 07/21/16 10:00 Gen: mildly tachypneic at rest Heart: RRR Lung: scattered rhonchi Abd: soft, nontender Ext: no edema CBC, BMP 07/12/16 05:35 07/12/16 05:35 Active Medications Acetaminophen (Tylenol -) 650 mg PO Q4H PRN PRN Reason: FEVER OR PAIN Last Admin: 07/21/16 07:10 Dose: 650 mg Acetaminophen (Tylenol -) 325 mg PO Q6H PRN PRN Reason: PAIN Last Admin: 07/11/16 20:02 Dose: 325 mg Atorvastatin Calcium (Lipitor -) 80 mg PO HS [facility] Last Admin: 07/20/16 21:50 Dose: 80 mg Budesonide/Formoterol Fumarate (Symbicort 160/4.5mcg -) 2 puff IH BID [facility] Last Admin: 07/21/16 10:29 Dose: 2 puff Collagenase (Santyl -) 1 applic TP DAILY [facility] Last Admin: 07/21/16 10:31 Dose: 1 applic Diltiazem HCl (Cardizem Injection -) 10 mg IVPUSH Q4H PRN PRN Reason: TACHYCARDIA Diltiazem HCl 60 mg/ Diltiazem (HCl 30 mg) 90 mg PO Q6HPO [facility] Last Admin: 07/21/16 12:21 Dose: 90 mg Furosemide (Lasix -) 40 mg PO BID@0600,1400 [facility] Last Admin: 07/21/16 06:42 Dose: Not Given Hydralazine HCl (Apresoline -) 10 mg PO TID [facility] Last Admin: 07/21/16 06:41 Dose: Not Given Insulin Aspart (Novolog Vial Sliding Scale -) 1 vial SQ TIDAC [facility] PRN Reason: Protocol Last Admin: 07/21/16 12:19 Dose: Not Given Insulin Detemir (Levemir Vial) 5 units SQ [facility] Last Admin: 07/20/16 21:50 Dose: 5 units Nitroglycerin (Nitrostat -) 0.4 mg SL Q5M PRN PRN Reason: FOR CHEST PAIN Olanzapine (Zyprexa -) 2.5 mg PO BID [facility] Last Admin: 07/21/16 10:30 Dose: 2.5 mg Pantoprazole Sodium (Protonix -) 40 mg PO BID [facility] Last Admin: 07/21/16 10:29 Dose: 40 mg Prednisone (Deltasone -) 10 mg PO DAILY [facility] Last Admin: 07/21/16 10:29 Dose: 10 mg A/P Acute on Chronic Hypoxic and Hypercapneic Respiratory Failure improving PSVT LV Diastolic Dysfunction Pneumonia - ?Aspiration Acute COPD Exacerbation improving CAD +Troponins/Acute NSTEMI h/o Breast Ca 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
--- NOTE | 2016-07-21 16:58 | PN ---
Progress Note, Physician History of Present Illness: seen and examined today in nad. no overnight events. no new complaints. anxious to go to rehab and be discharged from hospital. sob at baseline. - Current Medication List Current Medications: Active Medications Acetaminophen (Tylenol -) 650 mg PO Q4H PRN PRN Reason: FEVER OR PAIN Last Admin: 07/21/16 07:10 Dose: 650 mg Acetaminophen (Tylenol -) 325 mg PO Q6H PRN PRN Reason: PAIN Last Admin: 07/11/16 20:02 Dose: 325 mg Atorvastatin Calcium (Lipitor -) 80 mg PO HS [facility] Last Admin: 07/20/16 21:50 Dose: 80 mg Budesonide/Formoterol Fumarate (Symbicort 160/4.5mcg -) 2 puff IH BID [facility] Last Admin: 07/21/16 10:29 Dose: 2 puff Collagenase (Santyl -) 1 applic TP DAILY [facility] Last Admin: 07/21/16 10:31 Dose: 1 applic Diltiazem HCl (Cardizem Injection -) 10 mg IVPUSH Q4H PRN PRN Reason: TACHYCARDIA Diltiazem HCl 60 mg/ Diltiazem (HCl 30 mg) 90 mg PO Q6HPO [facility] Last Admin: 07/21/16 12:21 Dose: 90 mg Furosemide (Lasix -) 40 mg PO BID@0600,1400 [facility] Last Admin: 07/21/16 14:35 Dose: Not Given Hydralazine HCl (Apresoline -) 10 mg PO TID [facility] Last Admin: 07/21/16 14:33 Dose: Not Given Insulin Aspart (Novolog Vial Sliding Scale -) 1 vial SQ TIDAC [facility] PRN Reason: Protocol Last Admin: 07/21/16 12:19 Dose: Not Given Insulin Detemir (Levemir Vial) 5 units SQ [facility] Last Admin: 07/20/16 21:50 Dose: 5 units Nitroglycerin (Nitrostat -) 0.4 mg SL Q5M PRN PRN Reason: FOR CHEST PAIN Olanzapine (Zyprexa -) 2.5 mg PO BID [facility] Last Admin: 07/21/16 10:30 Dose: 2.5 mg Pantoprazole Sodium (Protonix -) 40 mg PO BID [facility] Last Admin: 07/21/16 10:29 Dose: 40 mg Prednisone (Deltasone -) 10 mg PO DAILY [facility] Last Admin: 07/21/16 10:29 Dose: 10 mg - Objective Vital Signs: Vital Signs Temperature 98.5 F 07/21/16 14:22 Pulse Rate 100 H 07/21/16 14:22 Respiratory Rate 22 07/21/16 14:22 Blood Pressure 103/48 07/21/16 14:22 O2 Sat by Pulse Oximetry (%) 96 07/21/16 14:30 Constitutional: Yes: No Distress, Calm, Thin Eyes: Yes: Conjunctiva Clear, EOM Intact, PERRL HENT: Yes: Atraumatic, Normocephalic Neck: Yes: Supple, Trachea Midline Cardiovascular: Yes: Regular Rate and Rhythm, Murmur, S1, S2. No: Bradycardia, Tachycardia, Pulse Irregular, Bruit, JVD, Gallop, Rub, S3, S4, Varicosities Respiratory: Yes: Regular, Diminished, Rhonchi, SOB. No: Rales, Wheezes Gastrointestinal: Yes: WNL, Normal Bowel Sounds, Soft. No: Distention, Tenderness Musculoskeletal: Yes: Muscle Weakness Extremities: Yes: WNL Edema: No Peripheral Pulses WNL: Yes Peripheral Pulses: Left Doralis Pedis: 2+, Right Dorsalis Pedis: 2+ Integumentary: Yes: WNL Neurological: Yes: Alert, Oriented Psychiatric: Yes: Alert, Oriented Labs: CBC, BMP 07/12/16 05:35 07/12/16 05:35 INR, PTT INR 1.02 (0.82-1.09) 06/09/16 05:05 - ....Imaging Chest X-ray: Report Reviewed, Image Reviewed EKG: Report Reviewed, Image Reviewed Other: Report Reviewed, Image Reviewed Assessment/Plan Recurrent acute respiratory failure requiring re-intubation, refused trach first intubation, now extubated Bilateral PNA Anemia PSVT and PAF CAD s/p NSTEMI Mild COPD REC: Respiratory failure-requiring intubation during admission, multifactorial -continue BiPAP as needed -refused trach -cont Lasix 40mg po bid -would check a chemistry panel today or tomorrow if pt does not refuse as last one was 07/12, to ensure bun/creat/electrolytes are stabe PSVT-adequately controlled -cont Cardizem 90mg po q6h Pafib-brief episodes during hospitalization -Holding ASA due to anemia, High risk for anticoagulation (for PAF) due to traumatic subdural hematoma and anemia with guaiac + stool -cont cardizem as above CAD-h/o PCI years ago, chronic angina, mild NSTEMI -stable -ASA on hold as above -not on bblocker due to severe COPD -cont statin Acute on chronic diastolic CHF-currently euvolemic -Continue Lasix, refused Labs previously Aortic stenosis-mild -outpatient follow up
--- NOTE | 2016-07-21 18:04 | PN ---
Progress Note, Physician History of Present Illness: anxious says she is distressed confusion - Current Medication List Current Medications: Active Medications Acetaminophen (Tylenol -) 650 mg PO Q4H PRN PRN Reason: FEVER OR PAIN Last Admin: 07/21/16 17:36 Dose: 650 mg Acetaminophen (Tylenol -) 325 mg PO Q6H PRN PRN Reason: PAIN Last Admin: 07/11/16 20:02 Dose: 325 mg Atorvastatin Calcium (Lipitor -) 80 mg PO [facility] Last Admin: 07/20/16 21:50 Dose: 80 mg Budesonide/Formoterol Fumarate (Symbicort 160/4.5mcg -) 2 puff IH BID [facility] Last Admin: 07/21/16 10:29 Dose: 2 puff Collagenase (Santyl -) 1 applic TP DAILY [facility] Last Admin: 07/21/16 10:31 Dose: 1 applic Diltiazem HCl (Cardizem Injection -) 10 mg IVPUSH Q4H PRN PRN Reason: TACHYCARDIA Diltiazem HCl 60 mg/ Diltiazem (HCl 30 mg) 90 mg PO Q6HPO [facility] Last Admin: 07/21/16 17:24 Dose: 90 mg Furosemide (Lasix -) 40 mg PO BID@0600,1400 [facility] Last Admin: 07/21/16 14:35 Dose: Not Given Hydralazine HCl (Apresoline -) 10 mg PO TID [facility] Last Admin: 07/21/16 14:33 Dose: Not Given Insulin Aspart (Novolog Vial Sliding Scale -) 1 vial SQ TIDAC [facility] PRN Reason: Protocol Last Admin: 07/21/16 17:24 Dose: 4 units Insulin Detemir (Levemir Vial) 5 units SQ [facility] Last Admin: 07/20/16 21:50 Dose: 5 units Nitroglycerin (Nitrostat -) 0.4 mg SL Q5M PRN PRN Reason: FOR CHEST PAIN Olanzapine (Zyprexa -) 2.5 mg PO BID [facility] Last Admin: 07/21/16 10:30 Dose: 2.5 mg Pantoprazole Sodium (Protonix -) 40 mg PO BID [facility] Last Admin: 07/21/16 10:29 Dose: 40 mg Prednisone (Deltasone -) 10 mg PO DAILY [facility] Last Admin: 07/21/16 10:29 Dose: 10 mg - Objective Vital Signs: Vital Signs Temperature 98.5 F 07/21/16 14:22 Pulse Rate 100 H 07/21/16 14:22 Respiratory Rate 22 07/21/16 14:22 Blood Pressure 103/48 07/21/16 14:22 O2 Sat by Pulse Oximetry (%) 96 07/21/16 14:30 Constitutional: Yes: Anxious Cardiovascular: Yes: Regular Rate and Rhythm Respiratory: Yes: Regular, Rhonchi Gastrointestinal: Yes: Normal Bowel Sounds, Soft Musculoskeletal: Yes: WNL Extremities: Yes: WNL Wound/Incision: Yes: Other Neurological: Yes: Confusion Labs: CBC, BMP 07/12/16 05:35 07/12/16 05:35 INR, PTT INR 1.02 (0.82-1.09) 06/09/16 05:05 Assessment/Plan Problem List - Problems (1) Aortic stenosis Code(s): I35.0 - NONRHEUMATIC AORTIC (VALVE) STENOSIS (2) History of PSVT (paroxysmal supraventricular tachycardia) Code(s): Z86.79 - PERSONAL HISTORY OF OTHER DISEASES OF THE CIRCULATORY SYSTEM (3) NSTEMI (non-ST elevated myocardial infarction) Code(s): I21.4 - NON-ST ELEVATION (NSTEMI) MYOCARDIAL INFARCTION (4) Respiratory failure Code(s): J96.90 - RESPIRATORY FAILURE, UNSP, UNSP W HYPOXIA OR HYPERCAPNIA Qualifiers: Chronicity: acute Respiratory failure complication: hypoxia and hypercapnia Qualified Code(s): J96.01 - Acute respiratory failure with hypoxia (5) Pulmonary hypertension Code(s): I27.2 - OTHER SECONDARY PULMONARY HYPERTENSION (6) Pulmonary nodules Code(s): R91.8 - OTHER NONSPECIFIC ABNORMAL FINDING OF LUNG FIELD (7) COPD (chronic obstructive pulmonary disease) Code(s): J44.9 - CHRONIC OBSTRUCTIVE PULMONARY DISEASE, UNSPECIFIED (8) History of cigarette smoking Code(s): Z87.891 - PERSONAL HISTORY OF NICOTINE DEPENDENCE (9) Acute on chronic respiratory failure with hypoxia and hypercapnia Code(s): J96.21 - ACUTE AND CHRONIC RESPIRATORY FAILURE WITH HYPOXIA J96.22 - ACUTE AND CHRONIC RESPIRATORY FAILURE WITH HYPERCAPNIAEPENDENCE +Troponins/Acute NSTEMI Lactic Acidosis h/o Breast Ca Lung Nodules with recent biopsy showing necrotizing granulomas Smoker pseudomonas pneumonia uti plan wound care rest as per primary
--- NOTE | 2016-07-21 19:39 | PN ---
Progress Note, Physician History of Present Illness: stable - Current Medication List Current Medications: Active Medications Acetaminophen (Tylenol -) 650 mg PO Q4H PRN PRN Reason: FEVER OR PAIN Last Admin: 07/21/16 17:36 Dose: 650 mg Acetaminophen (Tylenol -) 325 mg PO Q6H PRN PRN Reason: PAIN Last Admin: 07/11/16 20:02 Dose: 325 mg Atorvastatin Calcium (Lipitor -) 80 mg PO [facility] Last Admin: 07/20/16 21:50 Dose: 80 mg Budesonide/Formoterol Fumarate (Symbicort 160/4.5mcg -) 2 puff IH BID [facility] Last Admin: 07/21/16 10:29 Dose: 2 puff Collagenase (Santyl -) 1 applic TP DAILY [facility] Last Admin: 07/21/16 10:31 Dose: 1 applic Diltiazem HCl (Cardizem Injection -) 10 mg IVPUSH Q4H PRN PRN Reason: TACHYCARDIA Diltiazem HCl 60 mg/ Diltiazem (HCl 30 mg) 90 mg PO Q6HPO [facility] Last Admin: 07/21/16 17:24 Dose: 90 mg Furosemide (Lasix -) 40 mg PO BID@0600,1400 [facility] Last Admin: 07/21/16 14:35 Dose: Not Given Hydralazine HCl (Apresoline -) 10 mg PO TID [facility] Last Admin: 07/21/16 14:33 Dose: Not Given Insulin Aspart (Novolog Vial Sliding Scale -) 1 vial SQ TIDAC [facility] PRN Reason: Protocol Last Admin: 07/21/16 17:24 Dose: 4 units Insulin Detemir (Levemir Vial) 5 units SQ [facility] Last Admin: 07/20/16 21:50 Dose: 5 units Nitroglycerin (Nitrostat -) 0.4 mg SL Q5M PRN PRN Reason: FOR CHEST PAIN Olanzapine (Zyprexa -) 2.5 mg PO BID [facility] Last Admin: 07/21/16 10:30 Dose: 2.5 mg Pantoprazole Sodium (Protonix -) 40 mg PO BID [facility] Last Admin: 07/21/16 10:29 Dose: 40 mg Prednisone (Deltasone -) 10 mg PO DAILY [facility] Last Admin: 07/21/16 10:29 Dose: 10 mg - Objective Vital Signs: Vital Signs Temperature 98.8 F 07/21/16 18:00 Pulse Rate 92 H 07/21/16 18:00 Respiratory Rate 22 07/21/16 18:00 Blood Pressure 112/67 07/21/16 18:00 O2 Sat by Pulse Oximetry (%) 96 07/21/16 14:30 Constitutional: Yes: Anxious HENT: Yes: Atraumatic Neck: Yes: Supple Cardiovascular: Yes: Regular Rate and Rhythm Respiratory: Yes: Rhonchi Gastrointestinal: Yes: Normal Bowel Sounds Extremities: Yes: WNL Neurological: Yes: Alert, Oriented Labs: CBC, BMP 07/12/16 05:35 07/12/16 05:35 INR, PTT INR 1.02 (0.82-1.09) 06/09/16 05:05 Problem List - Problems (1) Respiratory failure Assessment/Plan: on bipap/nc prn apiration pna ABX COURSE COMPLETED on steroids..taper Code(s): J96.90 - RESPIRATORY FAILURE, UNSP, UNSP W HYPOXIA OR HYPERCAPNIA Qualifiers: Chronicity: acute Respiratory failure complication: hypoxia and hypercapnia Qualified Code(s): J96.01 - Acute respiratory failure with hypoxia (2) Chronic respiratory failure with hypoxia Assessment/Plan: duo nebs steroids taper Code(s): J96.11 - CHRONIC RESPIRATORY FAILURE WITH HYPOXIA (3) CAD (coronary artery disease) Assessment/Plan: on meds follow up labs continue current meds Code(s): I25.10 - ATHSCL HEART DISEASE OF [place] CORONARY ARTERY W/O ANG PCTRS (4) COPD (chronic obstructive pulmonary disease) Assessment/Plan: on meds stable steroids duo nebs Code(s): J44.9 - CHRONIC OBSTRUCTIVE PULMONARY DISEASE, UNSPECIFIED (5) Chronic diastolic CHF (congestive heart failure) Assessment/Plan: stable on meds Code(s): I50.32 - CHRONIC DIASTOLIC (CONGESTIVE) HEART FAILURE (6) HLD (hyperlipidemia) Assessment/Plan: on meds Code(s): E78.5 - HYPERLIPIDEMIA, UNSPECIFIED Qualifiers: Hyperlipidemia type: unspecified Qualified Code(s): E78.5 - Hyperlipidemia, unspecified (7) HTN (hypertension) Code(s): I10 - ESSENTIAL (PRIMARY) HYPERTENSION Qualifiers: Hypertension type: essential hypertension Qualified Code(s): I10 - Essential (primary) hypertension (8) History of cigarette smoking Code(s): Z87.891 - PERSONAL HISTORY OF NICOTINE DEPENDENCE (9) Influenza Code(s): J11.1 - FLU DUE TO UNIDENTIFIED INFLUENZA VIRUS W OTH RESP MANIFEST (10) Acute on chronic respiratory failure with hypoxia and hypercapnia Code(s): J96.21 - ACUTE AND CHRONIC RESPIRATORY FAILURE WITH HYPOXIA J96.22 - ACUTE AND CHRONIC RESPIRATORY FAILURE WITH HYPERCAPNIA (11) History of PSVT (paroxysmal supraventricular tachycardia) Code(s): Z86.79 - PERSONAL HISTORY OF OTHER DISEASES OF THE CIRCULATORY SYSTEM (12) Anemia Code(s): D64.9 - ANEMIA, UNSPECIFIED (13) NSTEMI (non-ST elevated myocardial infarction) Code(s): I21.4 - NON-ST ELEVATION (NSTEMI) MYOCARDIAL INFARCTION (14) GI (gastrointestinal bleed) Code(s): K92.2 - GASTROINTESTINAL HEMORRHAGE, UNSPECIFIED (15) Decubital ulcer Code(s): L89.90 - PRESSURE ULCER OF UNSPECIFIED SITE, UNSPECIFIED STAGE Assessment/Plan 1.+Influenza treated 2.Acute respiratory failure ON FACE MASK RLL INFILTERATE DUO NEBS 3.ANEMIA STABLE 4.NSTEMI 5.History breast cancer, lung mass with negative bx 6.COPD, chronic with chronic hypoxemia STEROID TAPER 7.chf STABLE 8.LOWER GI BLEED...stable s/p blood transfusion FU CBC IV PROTONIX BID 9.DYSPHAGIA REFUSING BARIUM SWALLOW ON DYSPAGIA DIET ANTIBIOTICS COMPLETED dc to snf
[2016-07-21] MEDS ORDERED: INSULIN (NOVOLOG) ASPART 100 UNITS/ML 10ML VIAL ONE (22:16)
[2016-07-21] MEDS: ATORVASTATIN CA 80 MG TABLET (FP) PO SCH (22:29)
[2016-07-21] MEDS: INSULIN DETEMIR 100 UNITS/ML MDV SQ SCH (22:46)
[2016-07-22] MEDS: DILTIAZEM 60 MG, DILTIAZEM 30 MG PO SCH ×4 (01:03→17:05)
[2016-07-22] MEDS ORDERED: dilTIAZem HCL 60 MG TABLET (FP) ONE ×3 (06:27→16:26)
[2016-07-22] MEDS ORDERED: dilTIAZem HCL 30 MG TABLET (FP) ONE ×3 (06:27→16:25)
[2016-07-22] MEDS: FUROSEMIDE 40 MG TABLET (FP) PO SCH ×2 (06:31→14:47)
[2016-07-22] MEDS: hydrALAZINE HCL 10 MG TABLET PO SCH ×3 (06:31→22:23)
[2016-07-22] MEDS: INSULIN SLIDING SCALE (NOVOLOG) 1 VIAL SQ SCH ×3 (06:31→16:31)
--- NOTE | 2016-07-22 09:39 | PN ---
Progress Note, Physician History of Present Illness: seen and examined today in nad. awake and alert. slightly confused. no overnight events. no new complaints. - Current Medication List Current Medications: Active Medications Acetaminophen (Tylenol -) 650 mg PO Q4H PRN PRN Reason: FEVER OR PAIN Last Admin: 07/21/16 22:34 Dose: 650 mg Acetaminophen (Tylenol -) 325 mg PO Q6H PRN PRN Reason: PAIN Last Admin: 07/11/16 20:02 Dose: 325 mg Atorvastatin Calcium (Lipitor -) 80 mg PO HS [facility] Last Admin: 07/21/16 22:29 Dose: 80 mg Budesonide/Formoterol Fumarate (Symbicort 160/4.5mcg -) 2 puff IH BID [facility] Last Admin: 07/21/16 22:29 Dose: 2 puff Collagenase (Santyl -) 1 applic TP DAILY [facility] Last Admin: 07/21/16 10:31 Dose: 1 applic Diltiazem HCl (Cardizem Injection -) 10 mg IVPUSH Q4H PRN PRN Reason: TACHYCARDIA Diltiazem HCl 60 mg/ Diltiazem (HCl 30 mg) 90 mg PO Q6HPO [facility] Last Admin: 07/22/16 06:31 Dose: 90 mg Furosemide (Lasix -) 40 mg PO BID@0600,1400 [facility] Last Admin: 07/22/16 06:31 Dose: 40 mg Hydralazine HCl (Apresoline -) 10 mg PO TID [facility] Last Admin: 07/22/16 06:31 Dose: 10 mg Insulin Aspart (Novolog Vial Sliding Scale -) 1 vial SQ TIDAC [facility] PRN Reason: Protocol Last Admin: 07/22/16 06:31 Dose: Not Given Insulin Detemir (Levemir Vial) 5 units SQ [facility] Last Admin: 07/21/16 22:46 Dose: 5 units Nitroglycerin (Nitrostat -) 0.4 mg SL Q5M PRN PRN Reason: FOR CHEST PAIN Olanzapine (Zyprexa -) 2.5 mg PO BID [facility] Last Admin: 07/21/16 22:30 Dose: 2.5 mg Pantoprazole Sodium (Protonix -) 40 mg PO BID [facility] Last Admin: 07/21/16 22:29 Dose: 40 mg Prednisone (Deltasone -) 10 mg PO DAILY [facility] Last Admin: 07/21/16 10:29 Dose: 10 mg - Objective Vital Signs: Vital Signs Temperature 99.0 F 07/22/16 06:00 Pulse Rate 105 H 07/22/16 06:00 Respiratory Rate 20 07/22/16 06:00 Blood Pressure 144/71 07/22/16 06:00 O2 Sat by Pulse Oximetry (%) 96 07/21/16 22:50 Constitutional: Yes: No Distress, Calm, Thin Eyes: Yes: Conjunctiva Clear, EOM Intact, PERRL HENT: Yes: Atraumatic, Normocephalic Neck: Yes: Supple, Trachea Midline Cardiovascular: Yes: Regular Rate and Rhythm, Murmur, S1, S2. No: Bradycardia, Tachycardia, Pulse Irregular, Bruit, JVD, Gallop, Rub, S3, S4, Varicosities Respiratory: Yes: Regular, Diminished, On Nasal O2. No: Rales, Rhonchi, SOB, Wheezes Gastrointestinal: Yes: Normal Bowel Sounds, Soft. No: Distention, Tenderness Musculoskeletal: Yes: Muscle Weakness Extremities: Yes: WNL Edema: No Peripheral Pulses WNL: Yes Peripheral Pulses: Left Doralis Pedis: 2+, Right Dorsalis Pedis: 2+ Integumentary: Yes: WNL Neurological: Yes: Alert, Oriented Psychiatric: Yes: Alert, Oriented Labs: CBC, BMP 07/12/16 05:35 07/12/16 05:35 INR, PTT INR 1.02 (0.82-1.09) 06/09/16 05:05 - ....Imaging Chest X-ray: Report Reviewed, Image Reviewed EKG: Report Reviewed, Image Reviewed Other: Report Reviewed, Image Reviewed Assessment/Plan Recurrent acute respiratory failure requiring re-intubation, refused trach first intubation, now extubated Bilateral PNA Anemia PSVT and PAF CAD s/p NSTEMI Mild COPD REC: Respiratory failure-requiring intubation during admission, multifactorial -continue BiPAP as needed -refused trach -cont Lasix 40mg po bid -will order CMP and CBC today, provided pt does not refuse PSVT-adequately controlled -cont Cardizem 90mg po q6h Pafib-brief episodes during hospitalization -Holding ASA due to anemia, High risk for anticoagulation (for PAF) due to traumatic subdural hematoma and anemia with guaiac + stool -cont cardizem as above CAD-h/o PCI years ago, chronic angina, mild NSTEMI -stable -ASA on hold as above -not on bblocker due to severe COPD -cont statin Acute on chronic diastolic CHF-currently euvolemic -Continue Lasix, labs today hopefully Aortic stenosis-mild -outpatient follow up
[2016-07-22] MEDS ORDERED: PT OWN MED DRAWER 7, Y5N ONE ×2 (10:03→10:26)
[2016-07-22] MEDS: BUDESONIDE/FORMETEROL FUMARATE 160/4.5 mcg INHALER IH SCH ×2 (10:19→22:28)
[2016-07-22] MEDS: predniSONE 10 MG TABLET (UD) PO SCH (10:19)
[2016-07-22] MEDS: OLANZapine 2.5 MG TABLET PO SCH ×2 (10:19→22:28)
[2016-07-22] MEDS: PANTOPRAZOLE 40 MG TABLET (FP) PO SCH ×2 (10:19→22:28)
[2016-07-22] MEDS: COLLAGENASE CLOSTRIDIUM HIST. 30 GRAMS TUBE TP SCH (10:20)
--- NOTE | 2016-07-22 10:48 | PN ---
Progress Note, [employer] - Note Progress Note: Selected Entries 07/21/16 07/21/16 07/21/16 06:00 10:00 14:22 Breakfast 75% Lunch 50% Supper Temperature 98.6 F 98.0 F 98.5 F 07/21/16 07/21/16 07/22/16 18:00 22:48 06:00 Breakfast Lunch Supper 75% Temperature 98.8 F 98.6 F 99.0 F Verbal, dysphonic, conversational but confused intermittently. Continue puree and nectar. Ensure compact. Magic cup.
--- NOTE | 2016-07-22 10:52 | PN ---
Progress Note, Physician History of Present Illness: anxious says she is distressed confusion still - Current Medication List Current Medications: Active Medications Acetaminophen (Tylenol -) 650 mg PO Q4H PRN PRN Reason: FEVER OR PAIN Last Admin: 07/21/16 22:34 Dose: 650 mg Acetaminophen (Tylenol -) 325 mg PO Q6H PRN PRN Reason: PAIN Last Admin: 07/11/16 20:02 Dose: 325 mg Atorvastatin Calcium (Lipitor -) 80 mg PO [facility] Last Admin: 07/21/16 22:29 Dose: 80 mg Budesonide/Formoterol Fumarate (Symbicort 160/4.5mcg -) 2 puff IH BID [facility] Last Admin: 07/22/16 10:19 Dose: 2 puff Collagenase (Santyl -) 1 applic TP DAILY [facility] Last Admin: 07/22/16 10:20 Dose: 1 applic Diltiazem HCl (Cardizem Injection -) 10 mg IVPUSH Q4H PRN PRN Reason: TACHYCARDIA Diltiazem HCl 60 mg/ Diltiazem (HCl 30 mg) 90 mg PO Q6HPO [facility] Last Admin: 07/22/16 06:31 Dose: 90 mg Furosemide (Lasix -) 40 mg PO BID@0600,1400 [facility] Last Admin: 07/22/16 06:31 Dose: 40 mg Hydralazine HCl (Apresoline -) 10 mg PO TID [facility] Last Admin: 07/22/16 06:31 Dose: 10 mg Insulin Aspart (Novolog Vial Sliding Scale -) 1 vial SQ TIDAC [facility] PRN Reason: Protocol Last Admin: 07/22/16 06:31 Dose: Not Given Insulin Detemir (Levemir Vial) 5 units SQ [facility] Last Admin: 07/21/16 22:46 Dose: 5 units Nitroglycerin (Nitrostat -) 0.4 mg SL Q5M PRN PRN Reason: FOR CHEST PAIN Olanzapine (Zyprexa -) 2.5 mg PO BID [facility] Last Admin: 07/22/16 10:19 Dose: 2.5 mg Pantoprazole Sodium (Protonix -) 40 mg PO BID [facility] Last Admin: 07/22/16 10:19 Dose: 40 mg Prednisone (Deltasone -) 10 mg PO DAILY [facility] Last Admin: 07/22/16 10:19 Dose: 10 mg - Objective Vital Signs: Vital Signs Temperature 99.0 F 07/22/16 06:00 Pulse Rate 105 H 07/22/16 06:00 Respiratory Rate 20 07/22/16 06:00 Blood Pressure 144/71 07/22/16 06:00 O2 Sat by Pulse Oximetry (%) 96 07/21/16 22:50 Constitutional: Yes: Anxious Cardiovascular: Yes: Regular Rate and Rhythm Respiratory: Yes: Regular, On Nasal O2, Rhonchi Gastrointestinal: Yes: Normal Bowel Sounds, Soft Musculoskeletal: Yes: Other Extremities: Yes: WNL Wound/Incision: Yes: Other (decubitus ulcer) Neurological: Yes: Alert Psychiatric: Yes: Alert, Other Labs: CBC, BMP 07/12/16 05:35 07/12/16 05:35 INR, PTT INR 1.02 (0.82-1.09) 06/09/16 05:05 Assessment/Plan Problem List - Problems (1) Aortic stenosis Code(s): I35.0 - NONRHEUMATIC AORTIC (VALVE) STENOSIS (2) History of PSVT (paroxysmal supraventricular tachycardia) Code(s): Z86.79 - PERSONAL HISTORY OF OTHER DISEASES OF THE CIRCULATORY SYSTEM (3) NSTEMI (non-ST elevated myocardial infarction) Code(s): I21.4 - NON-ST ELEVATION (NSTEMI) MYOCARDIAL INFARCTION (4) Respiratory failure Code(s): J96.90 - RESPIRATORY FAILURE, UNSP, UNSP W HYPOXIA OR HYPERCAPNIA Qualifiers: Chronicity: acute Respiratory failure complication: hypoxia and hypercapnia Qualified Code(s): J96.01 - Acute respiratory failure with hypoxia (5) Pulmonary hypertension Code(s): I27.2 - OTHER SECONDARY PULMONARY HYPERTENSION (6) Pulmonary nodules Code(s): R91.8 - OTHER NONSPECIFIC ABNORMAL FINDING OF LUNG FIELD (7) COPD (chronic obstructive pulmonary disease) Code(s): J44.9 - CHRONIC OBSTRUCTIVE PULMONARY DISEASE, UNSPECIFIED (8) History of cigarette smoking Code(s): Z87.891 - PERSONAL HISTORY OF NICOTINE DEPENDENCE (9) Acute on chronic respiratory failure with hypoxia and hypercapnia Code(s): J96.21 - ACUTE AND CHRONIC RESPIRATORY FAILURE WITH HYPOXIA J96.22 - ACUTE AND CHRONIC RESPIRATORY FAILURE WITH HYPERCAPNIAEPENDENCE +Troponins/Acute NSTEMI Lactic Acidosis h/o Breast Ca Lung Nodules with recent biopsy showing necrotizing granulomas Smoker pseudomonas pneumonia uti plan wound care rest as per primary nutrition continue to monitor
[2016-07-22 11:41] LABS: BASOPHIL 0.2 % (0-2.0); MCH 27.3 pg (25.7-33.7); NEUTROPHILS 67.6 % (42.8-82.8); PLATELET COUNT 179 K/MM3 (134-434); RDW 21.9 % (11.6-15.6); WHITE BLOOD COUNT 9.2 K/mm3 (4.0-10.0)
[2016-07-22 12:21] LABS: ANISOCYTOSIS 2+; HYPOCHROMIA FEW; PLATELET ESTIMATE ADEQUATE (NORMAL); POLYCHROMASIA 1+
[2016-07-22 12:38] LABS: ALBUMIN 2.1 g/dl (3.4-5.0); ANION GAP 10 (8-16); CALCIUM 8.4 mg/dL (8.5-10.1); CO2 37 mmol/L (21-32); CREATININE 0.3 mg/dL (0.55-1.02); GLUCOSE,RANDOM 116 mg/dL (74-106); SGOT/AST 45 U/L (15-37); SGPT/ALT 37 U/L (12-78)
[2016-07-22 12:40] LABS: ALK PHOS 84 U/L (45-117); BILIRUBIN,TOTAL 0.4 mg/dL (0.2-1.0); TOT PROT 5.8 g/dl (6.4-8.2)
--- NOTE | 2016-07-22 14:54 | PN ---
Progress Note, Physician History of Present Illness: pulmonary alert,less dyspneic,c/o cough - Current Medication List Current Medications: Active Medications Acetaminophen (Tylenol -) 650 mg PO Q4H PRN PRN Reason: FEVER OR PAIN Last Admin: 07/21/16 22:34 Dose: 650 mg Acetaminophen (Tylenol -) 325 mg PO Q6H PRN PRN Reason: PAIN Last Admin: 07/11/16 20:02 Dose: 325 mg Atorvastatin Calcium (Lipitor -) 80 mg PO HS [facility] Last Admin: 07/21/16 22:29 Dose: 80 mg Budesonide/Formoterol Fumarate (Symbicort 160/4.5mcg -) 2 puff IH BID [facility] Last Admin: 07/22/16 10:19 Dose: 2 puff Collagenase (Santyl -) 1 applic TP DAILY [facility] Last Admin: 07/22/16 10:20 Dose: 1 applic Diltiazem HCl (Cardizem Injection -) 10 mg IVPUSH Q4H PRN PRN Reason: TACHYCARDIA Diltiazem HCl 60 mg/ Diltiazem (HCl 30 mg) 90 mg PO Q6HPO [facility] Last Admin: 07/22/16 12:05 Dose: 90 mg Furosemide (Lasix -) 40 mg PO BID@0600,1400 [facility] Last Admin: 07/22/16 14:47 Dose: 40 mg Hydralazine HCl (Apresoline -) 10 mg PO TID [facility] Last Admin: 07/22/16 14:47 Dose: 10 mg Insulin Aspart (Novolog Vial Sliding Scale -) 1 vial SQ TIDAC [facility] PRN Reason: Protocol Last Admin: 07/22/16 12:01 Dose: Not Given Insulin Detemir (Levemir Vial) 5 units SQ [facility] Last Admin: 07/21/16 22:46 Dose: 5 units Nitroglycerin (Nitrostat -) 0.4 mg SL Q5M PRN PRN Reason: FOR CHEST PAIN Olanzapine (Zyprexa -) 2.5 mg PO BID [facility] Last Admin: 07/22/16 10:19 Dose: 2.5 mg Pantoprazole Sodium (Protonix -) 40 mg PO BID [facility] Last Admin: 07/22/16 10:19 Dose: 40 mg Prednisone (Deltasone -) 10 mg PO DAILY [facility] Last Admin: 07/22/16 10:19 Dose: 10 mg - Objective Vital Signs: Vital Signs Temperature 98.8 F 07/22/16 10:00 Pulse Rate 96 H 07/22/16 12:00 Respiratory Rate 22 07/22/16 10:00 Blood Pressure 127/57 07/22/16 12:00 O2 Sat by Pulse Oximetry (%) 96 07/21/16 22:50 Constitutional: Yes: Well Nourished, Calm Eyes: Yes: WNL, Occular Prosthesis Neck: Yes: WNL Cardiovascular: Yes: Regular Rate and Rhythm, S1, S2 Respiratory: Yes: Rhonchi (few scattered alin rhonchi) Gastrointestinal: Yes: Normal Bowel Sounds, Soft Extremities: Yes: WNL Edema: No Labs: CBC, BMP 07/22/16 11:25 07/22/16 11:25 INR, PTT INR 1.02 (0.82-1.09) 06/09/16 05:05 Problem List - Problems (1) Aortic stenosis Code(s): I35.0 - NONRHEUMATIC AORTIC (VALVE) STENOSIS (2) History of PSVT (paroxysmal supraventricular tachycardia) Code(s): Z86.79 - PERSONAL HISTORY OF OTHER DISEASES OF THE CIRCULATORY SYSTEM (3) NSTEMI (non-ST elevated myocardial infarction) Code(s): I21.4 - NON-ST ELEVATION (NSTEMI) MYOCARDIAL INFARCTION (4) Respiratory failure Code(s): J96.90 - RESPIRATORY FAILURE, UNSP, UNSP W HYPOXIA OR HYPERCAPNIA Qualifiers: Chronicity: acute Respiratory failure complication: hypoxia and hypercapnia Qualified Code(s): J96.01 - Acute respiratory failure with hypoxia (5) Pulmonary hypertension Code(s): I27.2 - OTHER SECONDARY PULMONARY HYPERTENSION (6) Pulmonary nodules Code(s): R91.8 - OTHER NONSPECIFIC ABNORMAL FINDING OF LUNG FIELD (7) COPD (chronic obstructive pulmonary disease) Code(s): J44.9 - CHRONIC OBSTRUCTIVE PULMONARY DISEASE, UNSPECIFIED (8) History of cigarette smoking Code(s): Z87.891 - PERSONAL HISTORY OF NICOTINE DEPENDENCE (9) Acute on chronic respiratory failure with hypoxia and hypercapnia Code(s): J96.21 - ACUTE AND CHRONIC RESPIRATORY FAILURE WITH HYPOXIA J96.22 - ACUTE AND CHRONIC RESPIRATORY FAILURE WITH HYPERCAPNIA Assessment/Plan ASSESSMENT AND PLAN: Acute on Chronic Hypoxic and Hypercapneic Respiratory Failure improving Influenza A s/p treatment Pneumonia - ?Aspiration Acute COPD Exacerbation CAD +Troponins/Acute NSTEMI h/o Breast Ca 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
--- NOTE | 2016-07-22 19:00 | PN ---
Progress Note, Physician History of Present Illness: stable - Current Medication List Current Medications: Active Medications Acetaminophen (Tylenol -) 650 mg PO Q4H PRN PRN Reason: FEVER OR PAIN Last Admin: 07/21/16 22:34 Dose: 650 mg Acetaminophen (Tylenol -) 325 mg PO Q6H PRN PRN Reason: PAIN Last Admin: 07/11/16 20:02 Dose: 325 mg Atorvastatin Calcium (Lipitor -) 80 mg PO HS [facility] Last Admin: 07/21/16 22:29 Dose: 80 mg Budesonide/Formoterol Fumarate (Symbicort 160/4.5mcg -) 2 puff IH BID [facility] Last Admin: 07/22/16 10:19 Dose: 2 puff Collagenase (Santyl -) 1 applic TP DAILY [facility] Last Admin: 07/22/16 10:20 Dose: 1 applic Diltiazem HCl (Cardizem Injection -) 10 mg IVPUSH Q4H PRN PRN Reason: TACHYCARDIA Diltiazem HCl 60 mg/ Diltiazem (HCl 30 mg) 90 mg PO Q6HPO [facility] Last Admin: 07/22/16 17:05 Dose: 90 mg Furosemide (Lasix -) 40 mg PO BID@0600,1400 [facility] Last Admin: 07/22/16 14:47 Dose: 40 mg Hydralazine HCl (Apresoline -) 10 mg PO TID [facility] Last Admin: 07/22/16 14:47 Dose: 10 mg Insulin Aspart (Novolog Vial Sliding Scale -) 1 vial SQ TIDAC [facility] PRN Reason: Protocol Last Admin: 07/22/16 16:31 Dose: 8 units Insulin Detemir (Levemir Vial) 5 units SQ [facility] Last Admin: 07/21/16 22:46 Dose: 5 units Nitroglycerin (Nitrostat -) 0.4 mg SL Q5M PRN PRN Reason: FOR CHEST PAIN Olanzapine (Zyprexa -) 2.5 mg PO BID [facility] Last Admin: 07/22/16 10:19 Dose: 2.5 mg Pantoprazole Sodium (Protonix -) 40 mg PO BID [facility] Last Admin: 07/22/16 10:19 Dose: 40 mg Prednisone (Deltasone -) 10 mg PO DAILY [facility] Last Admin: 07/22/16 10:19 Dose: 10 mg - Objective Vital Signs: Vital Signs Temperature 98.3 F 07/22/16 15:47 Pulse Rate 95 H 07/22/16 17:07 Respiratory Rate 22 07/22/16 15:47 Blood Pressure 122/50 07/22/16 17:07 O2 Sat by Pulse Oximetry (%) 95 07/22/16 18:22 Constitutional: Yes: No Distress HENT: Yes: Atraumatic Neck: Yes: Supple Cardiovascular: Yes: Regular Rate and Rhythm Respiratory: Yes: Rhonchi Gastrointestinal: Yes: Normal Bowel Sounds Extremities: Yes: WNL Neurological: Yes: Alert, Oriented Labs: CBC, BMP 07/22/16 11:25 07/22/16 11:25 INR, PTT INR 1.02 (0.82-1.09) 06/09/16 05:05 Problem List - Problems (1) Respiratory failure Assessment/Plan: on bipap/nc prn apiration pna ABX COURSE COMPLETED on steroids..taper Code(s): J96.90 - RESPIRATORY FAILURE, UNSP, UNSP W HYPOXIA OR HYPERCAPNIA Qualifiers: Chronicity: acute Respiratory failure complication: hypoxia and hypercapnia Qualified Code(s): J96.01 - Acute respiratory failure with hypoxia (2) Chronic respiratory failure with hypoxia Assessment/Plan: duo nebs steroids taper Code(s): J96.11 - CHRONIC RESPIRATORY FAILURE WITH HYPOXIA (3) CAD (coronary artery disease) Assessment/Plan: on meds follow up labs continue current meds Code(s): I25.10 - ATHSCL HEART DISEASE OF [place] CORONARY ARTERY W/O ANG PCTRS (4) COPD (chronic obstructive pulmonary disease) Assessment/Plan: on meds stable steroids duo nebs Code(s): J44.9 - CHRONIC OBSTRUCTIVE PULMONARY DISEASE, UNSPECIFIED (5) Chronic diastolic CHF (congestive heart failure) Assessment/Plan: stable on meds Code(s): I50.32 - CHRONIC DIASTOLIC (CONGESTIVE) HEART FAILURE (6) HLD (hyperlipidemia) Assessment/Plan: on meds Code(s): E78.5 - HYPERLIPIDEMIA, UNSPECIFIED Qualifiers: Hyperlipidemia type: unspecified Qualified Code(s): E78.5 - Hyperlipidemia, unspecified (7) HTN (hypertension) Assessment/Plan: on meds stable Code(s): I10 - ESSENTIAL (PRIMARY) HYPERTENSION Qualifiers: Hypertension type: essential hypertension Qualified Code(s): I10 - Essential (primary) hypertension (8) History of cigarette smoking Code(s): Z87.891 - PERSONAL HISTORY OF NICOTINE DEPENDENCE (9) Influenza Assessment/Plan: on meds id consult Code(s): J11.1 - FLU DUE TO UNIDENTIFIED INFLUENZA VIRUS W OTH RESP MANIFEST (10) Acute on chronic respiratory failure with hypoxia and hypercapnia Code(s): J96.21 - ACUTE AND CHRONIC RESPIRATORY FAILURE WITH HYPOXIA J96.22 - ACUTE AND CHRONIC RESPIRATORY FAILURE WITH HYPERCAPNIA (11) History of PSVT (paroxysmal supraventricular tachycardia) Code(s): Z86.79 - PERSONAL HISTORY OF OTHER DISEASES OF THE CIRCULATORY SYSTEM (12) Anemia Code(s): D64.9 - ANEMIA, UNSPECIFIED (13) NSTEMI (non-ST elevated myocardial infarction) Code(s): I21.4 - NON-ST ELEVATION (NSTEMI) MYOCARDIAL INFARCTION (14) GI (gastrointestinal bleed) Code(s): K92.2 - GASTROINTESTINAL HEMORRHAGE, UNSPECIFIED (15) Decubital ulcer Code(s): L89.90 - PRESSURE ULCER OF UNSPECIFIED SITE, UNSPECIFIED STAGE Assessment/Plan 1.+Influenza treated 2.Acute respiratory failure ON FACE MASK RLL INFILTERATE DUO NEBS 3.ANEMIA STABLE 4.NSTEMI 5.History breast cancer, lung mass with negative bx 6.COPD, chronic with chronic hypoxemia STEROID TAPER 7.chf STABLE 8.LOWER GI BLEED...stable s/p blood transfusion FU CBC IV PROTONIX BID 9.DYSPHAGIA REFUSING BARIUM SWALLOW ON DYSPAGIA DIET ANTIBIOTICS COMPLETED dc to snf
[2016-07-22] MEDS: INSULIN DETEMIR 100 UNITS/ML MDV SQ SCH (22:27)
[2016-07-22] MEDS: ATORVASTATIN CA 80 MG TABLET (FP) PO SCH (22:27)
[2016-07-23] MEDS ORDERED: dilTIAZem HCL 60 MG TABLET (FP) ONE ×4 (00:32→17:37)
[2016-07-23] MEDS ORDERED: dilTIAZem HCL 30 MG TABLET (FP) ONE ×4 (00:32→17:37)
[2016-07-23] MEDS: DILTIAZEM 60 MG, DILTIAZEM 30 MG PO SCH ×4 (00:36→17:40)
[2016-07-23] MEDS: hydrALAZINE HCL 10 MG TABLET PO SCH ×3 (06:19→22:09)
[2016-07-23] MEDS: FUROSEMIDE 40 MG TABLET (FP) PO SCH ×2 (06:20→14:15)
[2016-07-23] MEDS: INSULIN SLIDING SCALE (NOVOLOG) 1 VIAL SQ SCH ×3 (06:21→17:40)
[2016-07-23] MEDS ORDERED: PT OWN MED DRAWER 7, Y5N ONE (10:25)
[2016-07-23] MEDS: OLANZapine 2.5 MG TABLET PO SCH ×2 (10:28→22:09)
[2016-07-23] MEDS: predniSONE 10 MG TABLET (UD) PO SCH (10:29)
[2016-07-23] MEDS: PANTOPRAZOLE 40 MG TABLET (FP) PO SCH ×2 (10:29→22:09)
[2016-07-23] MEDS: BUDESONIDE/FORMETEROL FUMARATE 160/4.5 mcg INHALER IH SCH ×2 (10:29→22:09)
[2016-07-23] MEDS: COLLAGENASE CLOSTRIDIUM HIST. 30 GRAMS TUBE TP SCH (10:30)
[2016-07-23] MEDS: ACETAMINOPHEN 325 MG TABLET (FP) PO PRN (12:03)
--- NOTE | 2016-07-23 12:50 | PN ---
Progress Note (short form) - Note Progress Note: PULMONARY More alert, awake. Feeling stronger. Breathing continues to improve. Last Vital Signs Temp Pulse Resp BP Pulse Ox 97.2 F L 98 H 18 141/62 99 07/23/16 06:00 07/23/16 06:00 07/23/16 06:00 07/23/16 06:00 07/23/16 06:00 Gen: mildly tachypneic at rest Heart: RRR Lung: scattered rhonchi Abd: soft, nontender Ext: no edema CBC, BMP 07/22/16 11:25 07/22/16 11:25 Active Medications Acetaminophen (Tylenol -) 650 mg PO Q4H PRN PRN Reason: FEVER OR PAIN Last Admin: 07/23/16 12:03 Dose: 650 mg Acetaminophen (Tylenol -) 325 mg PO Q6H PRN PRN Reason: PAIN Last Admin: 07/11/16 20:02 Dose: 325 mg Atorvastatin Calcium (Lipitor -) 80 mg PO HS [facility] Last Admin: 07/22/16 22:27 Dose: 80 mg Budesonide/Formoterol Fumarate (Symbicort 160/4.5mcg -) 2 puff IH BID [facility] Last Admin: 07/23/16 10:29 Dose: 2 puff Collagenase (Santyl -) 1 applic TP DAILY [facility] Last Admin: 07/23/16 10:30 Dose: 1 applic Diltiazem HCl (Cardizem Injection -) 10 mg IVPUSH Q4H PRN PRN Reason: TACHYCARDIA Diltiazem HCl 60 mg/ Diltiazem (HCl 30 mg) 90 mg PO Q6HPO [facility] Last Admin: 07/23/16 12:02 Dose: 90 mg Furosemide (Lasix -) 40 mg PO BID@0600,1400 [facility] Last Admin: 07/23/16 06:20 Dose: 40 mg Hydralazine HCl (Apresoline -) 10 mg PO TID [facility] Last Admin: 07/23/16 06:19 Dose: 10 mg Insulin Aspart (Novolog Vial Sliding Scale -) 1 vial SQ TIDAC [facility] PRN Reason: Protocol Last Admin: 07/23/16 12:03 Dose: 10 units Insulin Detemir (Levemir Vial) 5 units SQ [facility] Last Admin: 07/22/16 22:27 Dose: 5 units Nitroglycerin (Nitrostat -) 0.4 mg SL Q5M PRN PRN Reason: FOR CHEST PAIN Olanzapine (Zyprexa -) 2.5 mg PO BID [facility] Last Admin: 07/23/16 10:28 Dose: 2.5 mg Pantoprazole Sodium (Protonix -) 40 mg PO BID [facility] Last Admin: 07/23/16 10:29 Dose: 40 mg Prednisone (Deltasone -) 10 mg PO DAILY [facility] Last Admin: 07/23/16: Dose: 10 mg A/P Acute on Chronic Hypoxic and Hypercapneic Respiratory Failure improving PSVT LV Diastolic Dysfunction Pneumonia - ?Aspiration Acute COPD Exacerbation improving CAD +Troponins/Acute NSTEMI h/o Breast Ca 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
--- NOTE | 2016-07-23 13:29 | PN ---
Progress Note, Physician Chief Complaint: THIS IS MY FIRST ENCOUNTER WITH THIS PATIENT EVENTS AND CHART REVIEWED POOR APPETITE AGITATED TOWARDS STAFF OVERNIGHT - Current Medication List Current Medications: Active Medications Acetaminophen (Tylenol -) 650 mg PO Q4H PRN PRN Reason: FEVER OR PAIN Last Admin: 07/23/16 12:03 Dose: 650 mg Acetaminophen (Tylenol -) 325 mg PO Q6H PRN PRN Reason: PAIN Last Admin: 07/11/16 20:02 Dose: 325 mg Atorvastatin Calcium (Lipitor -) 80 mg PO HS [facility] Last Admin: 07/22/16 22:27 Dose: 80 mg Budesonide/Formoterol Fumarate (Symbicort 160/4.5mcg -) 2 puff IH BID [facility] Last Admin: 07/23/16 10:29 Dose: 2 puff Collagenase (Santyl -) 1 applic TP DAILY [facility] Last Admin: 07/23/16 10:30 Dose: 1 applic Diltiazem HCl (Cardizem Injection -) 10 mg IVPUSH Q4H PRN PRN Reason: TACHYCARDIA Diltiazem HCl 60 mg/ Diltiazem (HCl 30 mg) 90 mg PO Q6HPO [facility] Last Admin: 07/23/16 12:02 Dose: 90 mg Furosemide (Lasix -) 40 mg PO BID@0600,1400 [facility] Last Admin: 07/23/16 06:20 Dose: 40 mg Hydralazine HCl (Apresoline -) 10 mg PO TID [facility] Last Admin: 07/23/16 06:19 Dose: 10 mg Insulin Aspart (Novolog Vial Sliding Scale -) 1 vial SQ TIDAC [facility] PRN Reason: Protocol Last Admin: 07/23/16 12:03 Dose: 10 units Insulin Detemir (Levemir Vial) 5 units SQ [facility] Last Admin: 07/22/16 22:27 Dose: 5 units Nitroglycerin (Nitrostat -) 0.4 mg SL Q5M PRN PRN Reason: FOR CHEST PAIN Olanzapine (Zyprexa -) 2.5 mg PO BID [facility] Last Admin: 07/23/16 10:28 Dose: 2.5 mg Pantoprazole Sodium (Protonix -) 40 mg PO BID [facility] Last Admin: 07/23/16 10:29 Dose: 40 mg Prednisone (Deltasone -) 10 mg PO DAILY [facility] Last Admin: 07/23/16 10:29 Dose: 10 mg - Objective Vital Signs: Vital Signs Temperature 97.2 F L 07/23/16 06:00 Pulse Rate 98 H 07/23/16 06:00 Respiratory Rate 18 07/23/16 06:00 Blood Pressure 141/62 07/23/16 06:00 O2 Sat by Pulse Oximetry (%) 99 07/23/16 06:00 Constitutional: Yes: No Distress Eyes: Yes: WNL HENT: Yes: WNL Neck: Yes: WNL Cardiovascular: Yes: WNL Respiratory: Yes: WNL Gastrointestinal: Yes: WNL Genitourinary: Yes: WNL Musculoskeletal: Yes: WNL Extremities: Yes: WNL Edema: No Peripheral Pulses WNL: Yes Integumentary: Yes: WNL Wound/Incision: Yes: Clean/Dry Neurological: Yes: Other ...Motor Strength: WNL Psychiatric: Yes: Agitated Labs: CBC, BMP 07/22/16 11:25 07/22/16 11:25 INR, PTT INR 1.02 (0.82-1.09) 06/09/16 05:05 Problem List - Problems (1) Acute on chronic respiratory failure with hypoxia and hypercapnia Code(s): J96.21 - ACUTE AND CHRONIC RESPIRATORY FAILURE WITH HYPOXIA J96.22 - ACUTE AND CHRONIC RESPIRATORY FAILURE WITH HYPERCAPNIA (2) Anemia Code(s): D64.9 - ANEMIA, UNSPECIFIED (3) Aortic stenosis Code(s): I35.0 - NONRHEUMATIC AORTIC (VALVE) STENOSIS (4) GI (gastrointestinal bleed) Code(s): K92.2 - GASTROINTESTINAL HEMORRHAGE, UNSPECIFIED (5) Influenza Code(s): J11.1 - FLU DUE TO UNIDENTIFIED INFLUENZA VIRUS W OTH RESP MANIFEST Assessment/Plan PROTONIX CONTINUED FOR GI BLEED NO ACTIVE BLEEDS AT THIS TIME. INCREASE PO INTAKE INSURANCE REVIEWED BY LEATHER CLEANER FOR PLACEMENT OOB TO CHAIR PSYCHIATRY EVAL IF AGITATION WORSENS
--- NOTE | 2016-07-23 18:54 | PN ---
Progress Note, Physician History of Present Illness: stable still with confusion no new issues - Current Medication List Current Medications: Active Medications Acetaminophen (Tylenol -) 650 mg PO Q4H PRN PRN Reason: FEVER OR PAIN Last Admin: 07/23/16 12:03 Dose: 650 mg Acetaminophen (Tylenol -) 325 mg PO Q6H PRN PRN Reason: PAIN Last Admin: 07/11/16 20:02 Dose: 325 mg Atorvastatin Calcium (Lipitor -) 80 mg PO HS [facility] Last Admin: 07/22/16 22:27 Dose: 80 mg Budesonide/Formoterol Fumarate (Symbicort 160/4.5mcg -) 2 puff IH BID [facility] Last Admin: 07/23/16 10:29 Dose: 2 puff Collagenase (Santyl -) 1 applic TP DAILY [facility] Last Admin: 07/23/16 10:30 Dose: 1 applic Diltiazem HCl (Cardizem Injection -) 10 mg IVPUSH Q4H PRN PRN Reason: TACHYCARDIA Diltiazem HCl 60 mg/ Diltiazem (HCl 30 mg) 90 mg PO Q6HPO [facility] Last Admin: 07/23/16 17:40 Dose: 90 mg Furosemide (Lasix -) 40 mg PO BID@0600,1400 [facility] Last Admin: 07/23/16 14:15 Dose: 40 mg Hydralazine HCl (Apresoline -) 10 mg PO TID [facility] Last Admin: 07/23/16 14:15 Dose: 10 mg Insulin Aspart (Novolog Vial Sliding Scale -) 1 vial SQ TIDAC [facility] PRN Reason: Protocol Last Admin: 07/23/16 17:40 Dose: 6 units Insulin Detemir (Levemir Vial) 5 units SQ [facility] Last Admin: 07/22/16 22:27 Dose: 5 units Nitroglycerin (Nitrostat -) 0.4 mg SL Q5M PRN PRN Reason: FOR CHEST PAIN Olanzapine (Zyprexa -) 2.5 mg PO BID [facility] Last Admin: 07/23/16 10:28 Dose: 2.5 mg Pantoprazole Sodium (Protonix -) 40 mg PO BID [facility] Last Admin: 07/23/16 10:29 Dose: 40 mg Prednisone (Deltasone -) 10 mg PO DAILY [facility] Last Admin: 07/23/16 10:29 Dose: 10 mg - Objective Vital Signs: Vital Signs Temperature 98.6 F 07/23/16 14:16 Pulse Rate 85 07/23/16 14:16 Respiratory Rate 22 07/23/16 14:16 Blood Pressure 117/52 07/23/16 14:16 O2 Sat by Pulse Oximetry (%) 99 07/23/16 11:30 Constitutional: Yes: No Distress, Calm Cardiovascular: Yes: Regular Rate and Rhythm Respiratory: Yes: Regular, On Nasal O2, Poor Air Entry Gastrointestinal: Yes: Normal Bowel Sounds, Soft Musculoskeletal: Yes: WNL Extremities: Yes: WNL Integumentary: Yes: Other Wound/Incision: Yes: Other (decubitus ulcer) Neurological: Yes: Alert, Other Psychiatric: Yes: Alert Labs: CBC, BMP 07/22/16 11:25 07/22/16 11:25 INR, PTT INR 1.02 (0.82-1.09) 06/09/16 05:05 Assessment/Plan Problem List - Problems (1) Aortic stenosis Code(s): I35.0 - NONRHEUMATIC AORTIC (VALVE) STENOSIS (2) History of PSVT (paroxysmal supraventricular tachycardia) Code(s): Z86.79 - PERSONAL HISTORY OF OTHER DISEASES OF THE CIRCULATORY SYSTEM (3) NSTEMI (non-ST elevated myocardial infarction) Code(s): I21.4 - NON-ST ELEVATION (NSTEMI) MYOCARDIAL INFARCTION (4) Respiratory failure Code(s): J96.90 - RESPIRATORY FAILURE, UNSP, UNSP W HYPOXIA OR HYPERCAPNIA Qualifiers: Chronicity: acute Respiratory failure complication: hypoxia and hypercapnia Qualified Code(s): J96.01 - Acute respiratory failure with hypoxia (5) Pulmonary hypertension Code(s): I27.2 - OTHER SECONDARY PULMONARY HYPERTENSION (6) Pulmonary nodules Code(s): R91.8 - OTHER NONSPECIFIC ABNORMAL FINDING OF LUNG FIELD (7) COPD (chronic obstructive pulmonary disease) Code(s): J44.9 - CHRONIC OBSTRUCTIVE PULMONARY DISEASE, UNSPECIFIED (8) History of cigarette smoking Code(s): Z87.891 - PERSONAL HISTORY OF NICOTINE DEPENDENCE (9) Acute on chronic respiratory failure with hypoxia and hypercapnia Code(s): J96.21 - ACUTE AND CHRONIC RESPIRATORY FAILURE WITH HYPOXIA J96.22 - ACUTE AND CHRONIC RESPIRATORY FAILURE WITH HYPERCAPNIAEPENDENCE +Troponins/Acute NSTEMI Lactic Acidosis h/o Breast Ca 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
[2016-07-23] MEDS: INSULIN DETEMIR 100 UNITS/ML MDV SQ SCH (22:03)
[2016-07-23] MEDS: ATORVASTATIN CA 80 MG TABLET (FP) PO SCH (22:09)
[2016-07-24] MEDS: DILTIAZEM 60 MG, DILTIAZEM 30 MG PO SCH ×5 (01:04→23:10)
[2016-07-24] MEDS ORDERED: dilTIAZem HCL 60 MG TABLET (FP) ONE ×4 (05:51→22:42)
[2016-07-24] MEDS ORDERED: dilTIAZem HCL 30 MG TABLET (FP) ONE ×4 (05:51→22:42)
[2016-07-24] MEDS: INSULIN SLIDING SCALE (NOVOLOG) 1 VIAL SQ SCH ×3 (06:25→16:55)
[2016-07-24] MEDS: FUROSEMIDE 40 MG TABLET (FP) PO SCH ×2 (06:26→14:31)
[2016-07-24] MEDS: hydrALAZINE HCL 10 MG TABLET PO SCH ×3 (06:26→22:50)
[2016-07-24] MEDS ORDERED: PT OWN MED DRAWER 7, Y5N ONE ×3 (10:02→14:25)
[2016-07-24] MEDS: OLANZapine 2.5 MG TABLET PO SCH ×2 (10:09→22:54)
[2016-07-24] MEDS: predniSONE 10 MG TABLET (UD) PO SCH (10:10)
[2016-07-24] MEDS: BUDESONIDE/FORMETEROL FUMARATE 160/4.5 mcg INHALER IH SCH ×2 (10:10→22:51)
[2016-07-24] MEDS: PANTOPRAZOLE 40 MG TABLET (FP) PO SCH ×2 (10:10→22:50)
[2016-07-24] MEDS: ACETAMINOPHEN 325 MG TABLET (FP) PO PRN (10:11)
[2016-07-24] MEDS: COLLAGENASE CLOSTRIDIUM HIST. 30 GRAMS TUBE TP SCH (10:11)
--- NOTE | 2016-07-24 12:23 | PN ---
Progress Note, Physician History of Present Illness: patient looks much better sitting in chair still with cough minimal sputum production says she is doing better still in and out of confusion - Current Medication List Current Medications: Active Medications Acetaminophen (Tylenol -) 650 mg PO Q4H PRN PRN Reason: FEVER OR PAIN Last Admin: 07/24/16 10:11 Dose: 650 mg Acetaminophen (Tylenol -) 325 mg PO Q6H PRN PRN Reason: PAIN Last Admin: 07/11/16 20:02 Dose: 325 mg Atorvastatin Calcium (Lipitor -) 80 mg PO [facility] Last Admin: 07/23/16 22:09 Dose: 80 mg Budesonide/Formoterol Fumarate (Symbicort 160/4.5mcg -) 2 puff IH BID [facility] Last Admin: 07/24/16 10:10 Dose: 2 puff Collagenase (Santyl -) 1 applic TP DAILY [facility] Last Admin: 07/24/16 10:11 Dose: 1 applic Diltiazem HCl (Cardizem Injection -) 10 mg IVPUSH Q4H PRN PRN Reason: TACHYCARDIA Diltiazem HCl 60 mg/ Diltiazem (HCl 30 mg) 90 mg PO Q6HPO [facility] Last Admin: 07/24/16 06:26 Dose: 90 mg Furosemide (Lasix -) 40 mg PO BID@0600,1400 [facility] Last Admin: 07/24/16 06:26 Dose: 40 mg Hydralazine HCl (Apresoline -) 10 mg PO TID [facility] Last Admin: 07/24/16 06:26 Dose: 10 mg Insulin Aspart (Novolog Vial Sliding Scale -) 1 vial SQ TIDAC [facility] PRN Reason: Protocol Last Admin: 07/24/16 12:10 Dose: 6 units Insulin Detemir (Levemir Vial) 5 units SQ [facility] Last Admin: 07/23/16 22:03 Dose: 5 units Nitroglycerin (Nitrostat -) 0.4 mg SL Q5M PRN PRN Reason: FOR CHEST PAIN Olanzapine (Zyprexa -) 2.5 mg PO BID [facility] Last Admin: 07/24/16 10:09 Dose: 2.5 mg Pantoprazole Sodium (Protonix -) 40 mg PO BID [facility] Last Admin: 07/24/16 10:10 Dose: 40 mg Prednisone (Deltasone -) 10 mg PO DAILY [facility] Last Admin: 07/24/16 10:10 Dose: 10 mg - Objective Vital Signs: Vital Signs Temperature 97.9 F 07/24/16 06:00 Pulse Rate 83 07/24/16 06:00 Respiratory Rate 20 07/24/16 06:00 Blood Pressure 128/60 07/24/16 06:00 O2 Sat by Pulse Oximetry (%) 97 07/24/16 00:04 Constitutional: Yes: Anxious Cardiovascular: Yes: Regular Rate and Rhythm Respiratory: Yes: On Nasal O2, Rhonchi Gastrointestinal: Yes: Normal Bowel Sounds, Soft Musculoskeletal: Yes: WNL Extremities: Yes: WNL Wound/Incision: Yes: Other (dressing dry intact) Neurological: Yes: Alert, Other Psychiatric: Yes: Alert Labs: CBC, BMP 07/22/16 11:25 07/22/16 11:25 INR, PTT INR 1.02 (0.82-1.09) 06/09/16 05:05 Assessment/Plan Problem List - Problems (1) Aortic stenosis Code(s): I35.0 - NONRHEUMATIC AORTIC (VALVE) STENOSIS (2) History of PSVT (paroxysmal supraventricular tachycardia) Code(s): Z86.79 - PERSONAL HISTORY OF OTHER DISEASES OF THE CIRCULATORY SYSTEM (3) NSTEMI (non-ST elevated myocardial infarction) Code(s): I21.4 - NON-ST ELEVATION (NSTEMI) MYOCARDIAL INFARCTION (4) Respiratory failure Code(s): J96.90 - RESPIRATORY FAILURE, UNSP, UNSP W HYPOXIA OR HYPERCAPNIA Qualifiers: Chronicity: acute Respiratory failure complication: hypoxia and hypercapnia Qualified Code(s): J96.01 - Acute respiratory failure with hypoxia (5) Pulmonary hypertension Code(s): I27.2 - OTHER SECONDARY PULMONARY HYPERTENSION (6) Pulmonary nodules Code(s): R91.8 - OTHER NONSPECIFIC ABNORMAL FINDING OF LUNG FIELD (7) COPD (chronic obstructive pulmonary disease) Code(s): J44.9 - CHRONIC OBSTRUCTIVE PULMONARY DISEASE, UNSPECIFIED (8) History of cigarette smoking Code(s): Z87.891 - PERSONAL HISTORY OF NICOTINE DEPENDENCE (9) Acute on chronic respiratory failure with hypoxia and hypercapnia Code(s): J96.21 - ACUTE AND CHRONIC RESPIRATORY FAILURE WITH HYPOXIA J96.22 - ACUTE AND CHRONIC RESPIRATORY FAILURE WITH HYPERCAPNIAEPENDENCE +Troponins/Acute NSTEMI Lactic Acidosis h/o Breast Ca 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 patient improving nutrition main issue
--- NOTE | 2016-07-24 12:24 | PN ---
Progress Note (short form) - Note Progress Note: PULMONARY More alert, awake. Overall improving. Breathing continues to improve. +cough with dark sputum this AM but clear since. Last Vital Signs Temp Pulse Resp BP Pulse Ox 97.9 F 83 20 128/60 97 07/24/16 06:00 07/24/16 06:00 07/24/16 06:00 07/24/16 06:00 07/24/16 00:04 Gen: mildly tachypneic at rest Heart: RRR Lung: scattered rhonchi Abd: soft, nontender Ext: no edema CBC, BMP 07/22/16 11:25 07/22/16 11:25 Active Medications Acetaminophen (Tylenol -) 650 mg PO Q4H PRN PRN Reason: FEVER OR PAIN Last Admin: 07/24/16 10:11 Dose: 650 mg Acetaminophen (Tylenol -) 325 mg PO Q6H PRN PRN Reason: PAIN Last Admin: 07/11/16 20:02 Dose: 325 mg Atorvastatin Calcium (Lipitor -) 80 mg PO HS [facility] Last Admin: 07/23/16 22:09 Dose: 80 mg Budesonide/Formoterol Fumarate (Symbicort 160/4.5mcg -) 2 puff IH BID [facility] Last Admin: 07/24/16 10:10 Dose: 2 puff Collagenase (Santyl -) 1 applic TP DAILY [facility] Last Admin: 07/24/16 10:11 Dose: 1 applic Diltiazem HCl (Cardizem Injection -) 10 mg IVPUSH Q4H PRN PRN Reason: TACHYCARDIA Diltiazem HCl 60 mg/ Diltiazem (HCl 30 mg) 90 mg PO Q6HPO [facility] Last Admin: 07/24/16 06:26 Dose: 90 mg Furosemide (Lasix -) 40 mg PO BID@0600,1400 [facility] Last Admin: 07/24/16 06:26 Dose: 40 mg Hydralazine HCl (Apresoline -) 10 mg PO TID [facility] Last Admin: 07/24/16 06:26 Dose: 10 mg Insulin Aspart (Novolog Vial Sliding Scale -) 1 vial SQ [facility] PRN Reason: Protocol Last Admin: 07/24/16 12:10 Dose: 6 units Insulin Detemir (Levemir Vial) 5 units SQ [facility] Last Admin: 07/23/16 22:03 Dose: 5 units Nitroglycerin (Nitrostat -) 0.4 mg SL Q5M PRN PRN Reason: FOR CHEST PAIN Olanzapine (Zyprexa -) 2.5 mg PO BID [facility] Last Admin: 07/24/16 10:09 Dose: 2.5 mg Pantoprazole Sodium (Protonix -) 40 mg PO BID [facility] Last Admin: 07/24/16 10:10 Dose: 40 mg Prednisone (Deltasone -) 10 mg PO DAILY [facility] Last Admin: 07/24/16 10:10 Dose: 10 mg A/P Acute on Chronic Hypoxic and Hypercapneic Respiratory Failure improving PSVT LV Diastolic Dysfunction Pneumonia - ?Aspiration Acute COPD Exacerbation improving CAD +Troponins/Acute NSTEMI h/o Breast Ca 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
--- NOTE | 2016-07-24 21:14 | PN ---
Progress Note, Physician Chief Complaint: AWAKE ALERT EATING LUNCH NAD - Current Medication List Current Medications: Active Medications Acetaminophen (Tylenol -) 650 mg PO Q4H PRN PRN Reason: FEVER OR PAIN Last Admin: 07/24/16 10:11 Dose: 650 mg Acetaminophen (Tylenol -) 325 mg PO Q6H PRN PRN Reason: PAIN Last Admin: 07/11/16 20:02 Dose: 325 mg Atorvastatin Calcium (Lipitor -) 80 mg PO HS [facility] Last Admin: 07/23/16 22:09 Dose: 80 mg Budesonide/Formoterol Fumarate (Symbicort 160/4.5mcg -) 2 puff IH BID [facility] Last Admin: 07/24/16 10:10 Dose: 2 puff Collagenase (Santyl -) 1 applic TP DAILY [facility] Last Admin: 07/24/16 10:11 Dose: 1 applic Diltiazem HCl (Cardizem Injection -) 10 mg IVPUSH Q4H PRN PRN Reason: TACHYCARDIA Diltiazem HCl 60 mg/ Diltiazem (HCl 30 mg) 90 mg PO Q6HPO [facility] Last Admin: 07/24/16 17:34 Dose: 90 mg Furosemide (Lasix -) 40 mg PO BID@0600,1400 [facility] Last Admin: 07/24/16 14:31 Dose: 40 mg Hydralazine HCl (Apresoline -) 10 mg PO TID [facility] Last Admin: 07/24/16 14:31 Dose: 10 mg Insulin Aspart (Novolog Vial Sliding Scale -) 1 vial SQ TIDAC [facility] PRN Reason: Protocol Last Admin: 07/24/16 16:55 Dose: 10 units Insulin Detemir (Levemir Vial) 5 units SQ [facility] Last Admin: 07/23/16 22:03 Dose: 5 units Nitroglycerin (Nitrostat -) 0.4 mg SL Q5M PRN PRN Reason: FOR CHEST PAIN Olanzapine (Zyprexa -) 2.5 mg PO BID [facility] Last Admin: 07/24/16 10:09 Dose: 2.5 mg Pantoprazole Sodium (Protonix -) 40 mg PO BID [facility] Last Admin: 07/24/16 10:10 Dose: 40 mg Prednisone (Deltasone -) 10 mg PO DAILY [facility] Last Admin: 07/24/16 10:10 Dose: 10 mg - Objective Vital Signs: Vital Signs Temperature 98.7 F 07/24/16 17:59 Pulse Rate 86 07/24/16 17:59 Respiratory Rate 18 07/24/16 17:59 Blood Pressure 123/54 07/24/16 17:59 O2 Sat by Pulse Oximetry (%) 98 07/24/16 18:49 Constitutional: Yes: No Distress Eyes: Yes: WNL HENT: Yes: WNL Neck: Yes: WNL Cardiovascular: Yes: WNL Respiratory: Yes: WNL Gastrointestinal: Yes: WNL Genitourinary: Yes: WNL Musculoskeletal: Yes: WNL Extremities: Yes: WNL Edema: No Peripheral Pulses WNL: Yes Integumentary: Yes: WNL Wound/Incision: Yes: Clean/Dry Neurological: Yes: WNL ...Motor Strength: WNL Psychiatric: Yes: WNL Labs: CBC, BMP 07/22/16 11:25 07/22/16 11:25 INR, PTT INR 1.02 (0.82-1.09) 06/09/16 05:05 Problem List - Problems (1) Acute on chronic respiratory failure with hypoxia and hypercapnia Code(s): J96.21 - ACUTE AND CHRONIC RESPIRATORY FAILURE WITH HYPOXIA J96.22 - ACUTE AND CHRONIC RESPIRATORY FAILURE WITH HYPERCAPNIA (2) Anemia Code(s): D64.9 - ANEMIA, UNSPECIFIED (3) Aortic stenosis Code(s): I35.0 - NONRHEUMATIC AORTIC (VALVE) STENOSIS (4) GI (gastrointestinal bleed) Code(s): K92.2 - GASTROINTESTINAL HEMORRHAGE, UNSPECIFIED (5) Influenza Code(s): J11.1 - FLU DUE TO UNIDENTIFIED INFLUENZA VIRUS W OTH RESP MANIFEST Assessment/Plan PROTONIX CONTINUED FOR GI BLEED NO ACTIVE BLEEDS AT THIS TIME. INCREASE PO INTAKE INSURANCE REVIEWED BY [employer]IT[employer]OR FOR PLACEMENT OOB TO CHAIR PSYCHIATRY EVAL IF AGITATION WORSENS
[2016-07-24] MEDS: INSULIN DETEMIR 100 UNITS/ML MDV SQ SCH (22:50)
[2016-07-24] MEDS: ATORVASTATIN CA 80 MG TABLET (FP) PO SCH (22:50)
[2016-07-25] MEDS ORDERED: dilTIAZem HCL 30 MG TABLET (FP) ONE ×3 (05:32→23:21)
[2016-07-25] MEDS ORDERED: dilTIAZem HCL 60 MG TABLET (FP) ONE ×3 (05:32→23:21)
[2016-07-25] MEDS: DILTIAZEM 60 MG, DILTIAZEM 30 MG PO SCH ×3 (06:15→18:20)
[2016-07-25] MEDS: hydrALAZINE HCL 10 MG TABLET PO SCH ×3 (06:15→22:06)
[2016-07-25] MEDS: FUROSEMIDE 40 MG TABLET (FP) PO SCH ×2 (06:15→14:54)
[2016-07-25] MEDS: INSULIN SLIDING SCALE (NOVOLOG) 1 VIAL SQ SCH ×3 (06:16→18:19)
[2016-07-25] MEDS: ACETAMINOPHEN 325 MG TABLET (FP) PO PRN (06:17)
[2016-07-25] MEDS: PANTOPRAZOLE 40 MG TABLET (FP) PO SCH ×2 (10:17→22:06)
[2016-07-25] MEDS: OLANZapine 2.5 MG TABLET PO SCH ×2 (10:17→22:06)
[2016-07-25] MEDS: COLLAGENASE CLOSTRIDIUM HIST. 30 GRAMS TUBE TP SCH (10:17)
[2016-07-25] MEDS: predniSONE 10 MG TABLET (UD) PO SCH (10:17)
[2016-07-25] MEDS ORDERED: PT OWN MED DRAWER 7, Y5N ONE (10:18)
[2016-07-25] MEDS: BUDESONIDE/FORMETEROL FUMARATE 160/4.5 mcg INHALER IH SCH ×2 (10:18→22:06)
--- NOTE | 2016-07-25 11:14 | PN ---
Progress Note, Physician History of Present Illness: seen and examined today in nad. awake, alert, oriented, states she is feeling better. anxious to be discharged. - Current Medication List Current Medications: Active Medications Acetaminophen (Tylenol -) 650 mg PO Q4H PRN PRN Reason: FEVER OR PAIN Last Admin: 07/25/16 06:17 Dose: 650 mg Acetaminophen (Tylenol -) 325 mg PO Q6H PRN PRN Reason: PAIN Last Admin: 07/11/16 20:02 Dose: 325 mg Atorvastatin Calcium (Lipitor -) 80 mg PO HS [facility] Last Admin: 07/24/16 22:50 Dose: 80 mg Budesonide/Formoterol Fumarate (Symbicort 160/4.5mcg -) 2 puff IH BID [facility] Last Admin: 07/25/16 10:18 Dose: 2 puff Collagenase (Santyl -) 1 applic TP DAILY [facility] Last Admin: 07/25/16 10:17 Dose: 1 applic Diltiazem HCl (Cardizem Injection -) 10 mg IVPUSH Q4H PRN PRN Reason: TACHYCARDIA Diltiazem HCl 60 mg/ Diltiazem (HCl 30 mg) 90 mg PO Q6HPO [facility] Last Admin: 07/25/16 06:15 Dose: 90 mg Furosemide (Lasix -) 40 mg PO BID@0600,1400 [facility] Last Admin: 07/25/16 06:15 Dose: 40 mg Hydralazine HCl (Apresoline -) 10 mg PO TID [facility] Last Admin: 07/25/16 06:15 Dose: 10 mg Insulin Aspart (Novolog Vial Sliding Scale -) 1 vial SQ TIDAC [facility] PRN Reason: Protocol Last Admin: 07/25/16 06:16 Dose: Not Given Insulin Detemir (Levemir Vial) 5 units SQ [facility] Last Admin: 07/24/16 22:50 Dose: 5 units Nitroglycerin (Nitrostat -) 0.4 mg SL Q5M PRN PRN Reason: FOR CHEST PAIN Olanzapine (Zyprexa -) 2.5 mg PO BID [facility] Last Admin: 07/25/16 10:17 Dose: 2.5 mg Pantoprazole Sodium (Protonix -) 40 mg PO BID [facility] Last Admin: 07/25/16 10:17 Dose: 40 mg Prednisone (Deltasone -) 10 mg PO DAILY [facility] Last Admin: 07/25/16 10:17 Dose: 10 mg - Objective Vital Signs: Vital Signs Temperature 97.5 F L 07/25/16 06:00 Pulse Rate 81 07/25/16 06:00 Respiratory Rate 18 07/25/16 06:00 Blood Pressure 144/62 07/25/16 06:00 O2 Sat by Pulse Oximetry (%) 95 07/25/16 09:15 Constitutional: Yes: No Distress, Calm, Thin Eyes: Yes: Conjunctiva Clear, PERRL HENT: Yes: Atraumatic, Normocephalic Neck: Yes: Supple, Trachea Midline Cardiovascular: Yes: Regular Rate and Rhythm, Murmur, S1, S2. No: Bradycardia, Tachycardia, Pulse Irregular, Bruit, JVD, Gallop, Rub, S3, S4, Varicosities Respiratory: Yes: Regular, Diminished, On Nasal O2. No: Rales, Rhonchi, SOB, Wheezes Gastrointestinal: Yes: Normal Bowel Sounds, Soft. No: Distention, Tenderness Musculoskeletal: Yes: Muscle Weakness Edema: No Peripheral Pulses WNL: Yes Peripheral Pulses: Left Doralis Pedis: 2+, Right Dorsalis Pedis: 2+ Neurological: Yes: Alert, Oriented Psychiatric: Yes: Alert, Oriented Labs: CBC, BMP 07/22/16 11:25 07/22/16 11:25 INR, PTT INR 1.02 (0.82-1.09) 06/09/16 05:05 - ....Imaging Chest X-ray: Report Reviewed, Image Reviewed EKG: Report Reviewed, Image Reviewed Other: Report Reviewed, Image Reviewed Assessment/Plan Recurrent acute respiratory failure requiring re-intubation, refused trach first intubation, now extubated Bilateral PNA Anemia PSVT and PAF CAD s/p NSTEMI Mild COPD REC: Respiratory failure-requiring intubation during admission, multifactorial -continue BiPAP as needed, supplemental O2 -refused trach -cont Lasix 40mg po bid -labs 07/22 stable -Discharge planning in progress to rehab center PSVT-adequately controlled -cont Cardizem 90mg po q6h Pafib-brief episodes during hospitalization -Holding ASA due to anemia, High risk for anticoagulation (for PAF) due to traumatic subdural hematoma and anemia with guaiac + stool -cont cardizem as above CAD-h/o PCI years ago, chronic angina, mild NSTEMI -stable -ASA on hold as above -not on bblocker due to severe COPD -cont statin Acute on chronic diastolic CHF-currently euvolemic -Cont Lasix at current dose Aortic stenosis-mild -outpatient follow up
--- NOTE | 2016-07-25 12:51 | PN ---
Progress Note (short form) - Note Progress Note: Awake on 3 L NC O2. Mildly tachypneic at rest. Reports feeling nervous about her upcoming discharge. Reports using BiPAP overnight. Intake & Output 07/22/16 07/23/16 07/24/16 07/25/16 23:59 23:59 23:59 23:59 Intake Total 1580 840 560 75 Output Total 6000 1 Balance -4420 839 560 75 Weight 114 lb 109 lb 4 oz 109 lb Last Vital Signs Temp Pulse Resp BP Pulse Ox 97.5 F L 81 18 144/62 95 07/25/16 06:00 07/25/16 06:00 07/25/16 06:00 07/25/16 06:00 07/25/16 09:15 Active Medications Acetaminophen (Tylenol -) 650 mg PO Q4H PRN PRN Reason: FEVER OR PAIN Last Admin: 07/25/16 06:17 Dose: 650 mg Acetaminophen (Tylenol -) 325 mg PO Q6H PRN PRN Reason: PAIN Last Admin: 07/11/16 20:02 Dose: 325 mg Atorvastatin Calcium (Lipitor -) 80 mg PO HS [facility] Last Admin: 07/24/16 22:50 Dose: 80 mg Budesonide/Formoterol Fumarate (Symbicort 160/4.5mcg -) 2 puff IH BID [facility] Last Admin: 07/25/16 10:18 Dose: 2 puff Collagenase (Santyl -) 1 applic TP DAILY [facility] Last Admin: 07/25/16 10:17 Dose: 1 applic Diltiazem HCl (Cardizem Injection -) 10 mg IVPUSH Q4H PRN PRN Reason: TACHYCARDIA Diltiazem HCl 60 mg/ Diltiazem (HCl 30 mg) 90 mg PO Q6HPO [facility] Last Admin: 07/25/16 06:15 Dose: 90 mg Furosemide (Lasix -) 40 mg PO BID@0600,1400 [facility] Last Admin: 07/25/16 06:15 Dose: 40 mg Hydralazine HCl (Apresoline -) 10 mg PO TID [facility] Last Admin: 07/25/16 06:15 Dose: 10 mg Insulin Aspart (Novolog Vial Sliding Scale -) 1 vial SQ TIDAC [facility] PRN Reason: Protocol Last Admin: 07/25/16 12:26 Dose: 6 units Insulin Detemir (Levemir Vial) 5 units SQ HS [facility] Last Admin: 07/24/16 22:50 Dose: 5 units Nitroglycerin (Nitrostat -) 0.4 mg SL Q5M PRN PRN Reason: FOR CHEST PAIN Olanzapine (Zyprexa -) 2.5 mg PO BID [facility] Last Admin: 07/25/16 10:17 Dose: 2.5 mg Pantoprazole Sodium (Protonix -) 40 mg PO BID [facility] Last Admin: 07/25/16 10:17 Dose: 40 mg Prednisone (Deltasone -) 10 mg PO DAILY [facility] Last Admin: 07/25/16 10:17 Dose: 10 mg Gen: Mildly tachypneic at rest Heart: RRR Lung: scattered rhonchi Abd: soft Ext: trace edema Laboratory Results - last 24 hr 07/24/16 07/24/16 07/25/16 16:53 21:13 05:33 POC Glucometer 313 115 126 07/25/16 11:56 POC Glucometer 218 ASSESSMENT AND PLAN: Acute on Chronic Hypoxic and Hypercapneic Respiratory Failure Influenza A s/p treatment Pneumonia - ?Aspiration Acute COPD Exacerbation CAD +Troponins/Acute NSTEMI h/o Breast Ca Lung Nodules with recent biopsy showing necrotizing granulomas Smoker - Prednisone - inhaled bronchodilators - ASA - lasix - NIPPV - PO as tolerated - DVT/GI prophylaxis - High risk for repeat intubation and decompensation due to patient non- compliance with medical therapy and her overall medical condition - Patient refuses to further discuss GOC -> ie intubation Dr Mosqueda
--- NOTE | 2016-07-25 17:40 | PN ---
Progress Note, Physician History of Present Illness: patient stable no events had to use bipap still requiring resp help anxious - Current Medication List Current Medications: Active Medications Acetaminophen (Tylenol -) 650 mg PO Q4H PRN PRN Reason: FEVER OR PAIN Last Admin: 07/25/16 06:17 Dose: 650 mg Acetaminophen (Tylenol -) 325 mg PO Q6H PRN PRN Reason: PAIN Last Admin: 07/11/16 20:02 Dose: 325 mg Atorvastatin Calcium (Lipitor -) 80 mg PO HS [facility] Last Admin: 07/24/16 22:50 Dose: 80 mg Budesonide/Formoterol Fumarate (Symbicort 160/4.5mcg -) 2 puff IH BID [facility] Last Admin: 07/25/16 10:18 Dose: 2 puff Collagenase (Santyl -) 1 applic TP DAILY [facility] Last Admin: 07/25/16 10:17 Dose: 1 applic Diltiazem HCl (Cardizem Injection -) 10 mg IVPUSH Q4H PRN PRN Reason: TACHYCARDIA Diltiazem HCl 60 mg/ Diltiazem (HCl 30 mg) 90 mg PO Q6HPO [facility] Last Admin: 07/25/16 14:53 Dose: Not Given Furosemide (Lasix -) 40 mg PO BID@0600,1400 [facility] Last Admin: 07/25/16 14:54 Dose: Not Given Hydralazine HCl (Apresoline -) 10 mg PO TID [facility] Last Admin: 07/25/16 14:54 Dose: Not Given Insulin Aspart (Novolog Vial Sliding Scale -) 1 vial SQ TIDAC [facility] PRN Reason: Protocol Last Admin: 07/25/16 12:26 Dose: 6 units Insulin Detemir (Levemir Vial) 5 units SQ [facility] Last Admin: 07/24/16 22:50 Dose: 5 units Nitroglycerin (Nitrostat -) 0.4 mg SL Q5M PRN PRN Reason: FOR CHEST PAIN Olanzapine (Zyprexa -) 2.5 mg PO BID [facility] Last Admin: 07/25/16 10:17 Dose: 2.5 mg Pantoprazole Sodium (Protonix -) 40 mg PO BID [facility] Last Admin: 07/25/16 10:17 Dose: 40 mg Prednisone (Deltasone -) 10 mg PO DAILY [facility] Last Admin: 07/25/16 10:17 Dose: 10 mg - Objective Vital Signs: Vital Signs Temperature 97.8 F 07/25/16 14:00 Pulse Rate 81 07/25/16 14:00 Respiratory Rate 22 07/25/16 10:00 Blood Pressure 118/62 07/25/16 14:00 O2 Sat by Pulse Oximetry (%) 95 07/25/16 10:00 Constitutional: Yes: Anxious, Mild Distress Cardiovascular: Yes: Regular Rate and Rhythm Respiratory: Yes: On BiPap, On Nasal O2, Poor Air Entry Gastrointestinal: Yes: Normal Bowel Sounds, Soft Musculoskeletal: Yes: WNL Extremities: Yes: WNL Wound/Incision: Yes: Dressing Dry and Intact Neurological: Yes: Alert, Oriented Psychiatric: Yes: Alert, Oriented Labs: CBC, BMP 07/22/16 11:25 07/22/16 11:25 INR, PTT INR 1.02 (0.82-1.09) 06/09/16 05:05 Assessment/Plan Problem List - Problems (1) Aortic stenosis Code(s): I35.0 - NONRHEUMATIC AORTIC (VALVE) STENOSIS (2) History of PSVT (paroxysmal supraventricular tachycardia) Code(s): Z86.79 - PERSONAL HISTORY OF OTHER DISEASES OF THE CIRCULATORY SYSTEM (3) NSTEMI (non-ST elevated myocardial infarction) Code(s): I21.4 - NON-ST ELEVATION (NSTEMI) MYOCARDIAL INFARCTION (4) Respiratory failure Code(s): J96.90 - RESPIRATORY FAILURE, UNSP, UNSP W HYPOXIA OR HYPERCAPNIA Qualifiers: Chronicity: acute Respiratory failure complication: hypoxia and hypercapnia Qualified Code(s): J96.01 - Acute respiratory failure with hypoxia (5) Pulmonary hypertension Code(s): I27.2 - OTHER SECONDARY PULMONARY HYPERTENSION (6) Pulmonary nodules Code(s): R91.8 - OTHER NONSPECIFIC ABNORMAL FINDING OF LUNG FIELD (7) COPD (chronic obstructive pulmonary disease) Code(s): J44.9 - CHRONIC OBSTRUCTIVE PULMONARY DISEASE, UNSPECIFIED (8) History of cigarette smoking Code(s): Z87.891 - PERSONAL HISTORY OF NICOTINE DEPENDENCE (9) Acute on chronic respiratory failure with hypoxia and hypercapnia Code(s): J96.21 - ACUTE AND CHRONIC RESPIRATORY FAILURE WITH HYPOXIA J96.22 - ACUTE AND CHRONIC RESPIRATORY FAILURE WITH HYPERCAPNIAEPENDENCE +Troponins/Acute NSTEMI Lactic Acidosis h/o Breast Ca 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
--- NOTE | 2016-07-25 19:16 | PN ---
Progress Note, Physician History of Present Illness: stable - Current Medication List Current Medications: Active Medications Acetaminophen (Tylenol -) 650 mg PO Q4H PRN PRN Reason: FEVER OR PAIN Last Admin: 07/25/16 06:17 Dose: 650 mg Acetaminophen (Tylenol -) 325 mg PO Q6H PRN PRN Reason: PAIN Last Admin: 07/11/16 20:02 Dose: 325 mg Atorvastatin Calcium (Lipitor -) 80 mg PO HS [facility] Last Admin: 07/24/16 22:50 Dose: 80 mg Budesonide/Formoterol Fumarate (Symbicort 160/4.5mcg -) 2 puff IH BID [facility] Last Admin: 07/25/16 10:18 Dose: 2 puff Collagenase (Santyl -) 1 applic TP DAILY [facility] Last Admin: 07/25/16 10:17 Dose: 1 applic Diltiazem HCl (Cardizem Injection -) 10 mg IVPUSH Q4H PRN PRN Reason: TACHYCARDIA Diltiazem HCl 60 mg/ Diltiazem (HCl 30 mg) 90 mg PO Q6HPO [facility] Last Admin: 07/25/16 18:20 Dose: 90 mg Furosemide (Lasix -) 40 mg PO BID@0600,1400 [facility] Last Admin: 07/25/16 14:54 Dose: Not Given Hydralazine HCl (Apresoline -) 10 mg PO TID [facility] Last Admin: 07/25/16 14:54 Dose: Not Given Insulin Aspart (Novolog Vial Sliding Scale -) 1 vial SQ TIDAC [facility] PRN Reason: Protocol Last Admin: 07/25/16 18:19 Dose: 8 units Insulin Detemir (Levemir Vial) 5 units SQ [facility] Last Admin: 07/24/16 22:50 Dose: 5 units Nitroglycerin (Nitrostat -) 0.4 mg SL Q5M PRN PRN Reason: FOR CHEST PAIN Olanzapine (Zyprexa -) 2.5 mg PO BID [facility] Last Admin: 07/25/16 10:17 Dose: 2.5 mg Pantoprazole Sodium (Protonix -) 40 mg PO BID [facility] Last Admin: 07/25/16 10:17 Dose: 40 mg Prednisone (Deltasone -) 10 mg PO DAILY [facility] Last Admin: 07/25/16 10:17 Dose: 10 mg - Objective Vital Signs: Vital Signs Temperature 98.1 F 07/25/16 18:00 Pulse Rate 82 07/25/16 18:00 Respiratory Rate 20 07/25/16 18:00 Blood Pressure 122/65 07/25/16 18:00 O2 Sat by Pulse Oximetry (%) 95 07/25/16 10:00 HENT: Yes: Atraumatic Neck: Yes: Supple Cardiovascular: Yes: Regular Rate and Rhythm Respiratory: Yes: Rhonchi Gastrointestinal: Yes: Normal Bowel Sounds Extremities: Yes: WNL Edema: LLE: Trace, RLE: Trace Neurological: Yes: Alert, Oriented Labs: CBC, BMP 07/22/16 11:25 07/22/16 11:25 INR, PTT INR 1.02 (0.82-1.09) 06/09/16 05:05 Problem List - Problems (1) Respiratory failure Assessment/Plan: on bipap/nc prn apiration pna on steroids..taper Code(s): J96.90 - RESPIRATORY FAILURE, UNSP, UNSP W HYPOXIA OR HYPERCAPNIA Qualifiers: Chronicity: acute Respiratory failure complication: hypoxia and hypercapnia Qualified Code(s): J96.01 - Acute respiratory failure with hypoxia (2) Chronic respiratory failure with hypoxia Assessment/Plan: duo nebs steroids taper Code(s): J96.11 - CHRONIC RESPIRATORY FAILURE WITH HYPOXIA (3) CAD (coronary artery disease) Assessment/Plan: on meds follow up labs continue current meds Code(s): I25.10 - ATHSCL HEART DISEASE OF [place] CORONARY ARTERY W/O ANG PCTRS (4) COPD (chronic obstructive pulmonary disease) Assessment/Plan: on meds stable steroids duo nebs Code(s): J44.9 - CHRONIC OBSTRUCTIVE PULMONARY DISEASE, UNSPECIFIED (5) Chronic diastolic CHF (congestive heart failure) Assessment/Plan: stable on meds Code(s): I50.32 - CHRONIC DIASTOLIC (CONGESTIVE) HEART FAILURE (6) HLD (hyperlipidemia) Assessment/Plan: on meds Code(s): E78.5 - HYPERLIPIDEMIA, UNSPECIFIED Qualifiers: Hyperlipidemia type: unspecified Qualified Code(s): E78.5 - Hyperlipidemia, unspecified (7) HTN (hypertension) Code(s): I10 - ESSENTIAL (PRIMARY) HYPERTENSION Qualifiers: Hypertension type: essential hypertension Qualified Code(s): I10 - Essential (primary) hypertension (8) History of cigarette smoking Code(s): Z87.891 - PERSONAL HISTORY OF NICOTINE DEPENDENCE (9) Influenza Assessment/Plan: on meds id consult Code(s): J11.1 - FLU DUE TO UNIDENTIFIED INFLUENZA VIRUS W OTH RESP MANIFEST (10) Acute on chronic respiratory failure with hypoxia and hypercapnia Code(s): J96.21 - ACUTE AND CHRONIC RESPIRATORY FAILURE WITH HYPOXIA J96.22 - ACUTE AND CHRONIC RESPIRATORY FAILURE WITH HYPERCAPNIA (11) History of PSVT (paroxysmal supraventricular tachycardia) Code(s): Z86.79 - PERSONAL HISTORY OF OTHER DISEASES OF THE CIRCULATORY SYSTEM (12) Anemia Assessment/Plan: hgb stable Code(s): D64.9 - ANEMIA, UNSPECIFIED (13) NSTEMI (non-ST elevated myocardial infarction) Code(s): I21.4 - NON-ST ELEVATION (NSTEMI) MYOCARDIAL INFARCTION (14) GI (gastrointestinal bleed) Assessment/Plan: cbc stable Code(s): K92.2 - GASTROINTESTINAL HEMORRHAGE, UNSPECIFIED (15) Decubital ulcer Assessment/Plan: now stage 3 will get wound care involved Code(s): L89.90 - PRESSURE ULCER OF UNSPECIFIED SITE, UNSPECIFIED STAGE Assessment/Plan 1.+Influenza treated 2.Acute respiratory failure ON FACE MASK RLL INFILTERATE DUO NEBS 3.ANEMIA STABLE 4.NSTEMI 5.History breast cancer, lung mass with negative bx 6.COPD, chronic with chronic hypoxemia STEROID TAPER 7.chf STABLE 8.LOWER GI BLEED...stable s/p blood transfusion FU CBC IV PROTONIX BID 9.DYSPHAGIA REFUSING BARIUM SWALLOW ON DYSPAGIA DIET ANTIBIOTICS COMPLETED dc to snf
[2016-07-25] MEDS ORDERED: clonazePAM 0.5 MG TABLET PO PRN (21:50)
[2016-07-25] MEDS: ATORVASTATIN CA 80 MG TABLET (FP) PO SCH (22:06)
[2016-07-25] MEDS: INSULIN DETEMIR 100 UNITS/ML MDV SQ SCH (22:07)
[2016-07-26] MEDS: DILTIAZEM 60 MG, DILTIAZEM 30 MG PO SCH ×3 (00:46→13:18)
[2016-07-26] MEDS: hydrALAZINE HCL 10 MG TABLET PO SCH ×2 (06:03→13:19)
[2016-07-26] MEDS: FUROSEMIDE 40 MG TABLET (FP) PO SCH ×2 (06:03→13:19)
[2016-07-26] MEDS: INSULIN SLIDING SCALE (NOVOLOG) 1 VIAL SQ SCH ×2 (06:04→12:38)
[2016-07-26] MEDS: predniSONE 10 MG TABLET (UD) PO SCH (09:39)
[2016-07-26] MEDS: PANTOPRAZOLE 40 MG TABLET (FP) PO SCH (09:39)
[2016-07-26] MEDS: OLANZapine 2.5 MG TABLET PO SCH (09:39)
[2016-07-26] MEDS: ACETAMINOPHEN 325 MG TABLET (FP) PO PRN ×2 (09:40→14:43)
[2016-07-26] MEDS: BUDESONIDE/FORMETEROL FUMARATE 160/4.5 mcg INHALER IH SCH (10:21)
[2016-07-26] MEDS: COLLAGENASE CLOSTRIDIUM HIST. 30 GRAMS TUBE TP SCH (11:00)
[2016-07-26] MEDS ORDERED: INSULIN (NOVOLOG) ASPART 100 UNITS/ML 10ML VIAL ONE (12:10)
[2016-07-26] MEDS ORDERED: dilTIAZem HCL 60 MG TABLET (FP) ONE (13:16)
[2016-07-26] MEDS ORDERED: dilTIAZem HCL 30 MG TABLET (FP) ONE (13:16)
[2016-07-26 13:34] VITALS: BP 127/68; PULSE 84; TEMP 97.7
--- NOTE | 2016-07-26 14:30 | DS ---
Physical Examination Vital Signs: Vital Signs Temperature 97.7 F 07/26/16 13:33 Pulse Rate 84 07/26/16 13:33 Respiratory Rate 20 07/26/16 13:33 Blood Pressure 127/68 07/26/16 13:33 O2 Sat by Pulse Oximetry (%) 97 07/26/16 03:28 Labs: CBC, BMP 07/22/16 11:25 07/22/16 11:25 Discharge Summary Reason For Visit: CHRONIC RESPIRATORY FAILURE WITH HYPOXIA Current Active Problems Acute on chronic respiratory failure with hypoxia and hypercapnia (Acute) Anemia (Acute) Aortic stenosis (Acute) Decubital ulcer (Acute) GI (gastrointestinal bleed) (Acute) History of PSVT (paroxysmal supraventricular tachycardia) (Acute) Influenza (Acute) NSTEMI (non-ST elevated myocardial infarction) (Acute) Respiratory failure (Acute) Chronic respiratory failure with hypoxia (Chronic) Condition: Critical - Instructions Diet, Activity, Other Instructions: pt now on prednisone 20 mg po daily 1 week, then 10 mg po daily 1 week should be assesed then by pulmonary/md continue levaquin for 7 more days..then assess the patient Referrals: [facility] [Resident] - 1 Week - Home Medications Comprehensive Discharge Medication List: Ambulatory Orders Albuterol Sulfate [Proair Hfa -] 2 inh PO BID 06/14/14 Nitroglycerin Sublingual [Nitrostat -] 0.4 mg SL Q5M PRN #30 tab 02/22/16 Albuterol 2.5/Ipratropium 0.5 [Duoneb -] 1 amp NEB QIDR amp 07/08/16 Atorvastatin Ca [Lipitor] 80 mg PO HS tablet 07/08/16 Budesonide/Formeterol Fumarate [SYMBICORT 160/4.5mcg -] 2 puff IH BID inhaler 07/08/16 Diltiazem [Cardizem -] 90 mg PO Q6HPO tablet 07/08/16 Insulin (Levemir) [Levemir Vial] 5 units SQ HS ml 07/08/16 Pantoprazole Sodium [Protonix -] 40 mg PO BID #30 bottle 07/08/16 Clonazepam [Klonopin -] 0.5 mg PO Q12H PRN #0 tablet MDD 2 07/11/16 Hydralazine HCl [Apresoline -] 10 mg PO TID tablet 07/11/16 Furosemide [Lasix -] 40 mg PO BID@0600,1400 tablet 07/15/16 Prednisone [Deltasone -] 10 mg PO DAILY #0 tablet 07/26/16 dc to snf
[2016-07-26] MEDS ORDERED: clonazePAM 0.5 MG TABLET PO ONE (14:41)
--- NOTE | 2016-07-26 21:17 | PN ---
Progress Note, Physician History of Present Illness: doing ok very anxious no new events - Objective Vital Signs: Vital Signs Temperature 97.7 F 07/26/16 13:33 Pulse Rate 84 07/26/16 13:33 Respiratory Rate 20 07/26/16 13:33 Blood Pressure 127/68 07/26/16 13:33 O2 Sat by Pulse Oximetry (%) 95 07/26/16 10:00 Constitutional: Yes: Anxious, Mild Distress Cardiovascular: Yes: Regular Rate and Rhythm Respiratory: Yes: Regular, On Nasal O2, Poor Air Entry Gastrointestinal: Yes: Normal Bowel Sounds, Soft Musculoskeletal: Yes: WNL Extremities: Yes: WNL Wound/Incision: Yes: Other (decubitus ulcer) Neurological: Yes: Alert, Oriented Psychiatric: Yes: Alert Labs: CBC, BMP 07/22/16 11:25 07/22/16 11:25 INR, PTT INR 1.02 (0.82-1.09) 06/09/16 05:05 Assessment/Plan Problem List - Problems (1) Aortic stenosis Code(s): I35.0 - NONRHEUMATIC AORTIC (VALVE) STENOSIS (2) History of PSVT (paroxysmal supraventricular tachycardia) Code(s): Z86.79 - PERSONAL HISTORY OF OTHER DISEASES OF THE CIRCULATORY SYSTEM (3) NSTEMI (non-ST elevated myocardial infarction) Code(s): I21.4 - NON-ST ELEVATION (NSTEMI) MYOCARDIAL INFARCTION (4) Respiratory failure Code(s): J96.90 - RESPIRATORY FAILURE, UNSP, UNSP W HYPOXIA OR HYPERCAPNIA Qualifiers: Chronicity: acute Respiratory failure complication: hypoxia and hypercapnia Qualified Code(s): J96.01 - Acute respiratory failure with hypoxia (5) Pulmonary hypertension Code(s): I27.2 - OTHER SECONDARY PULMONARY HYPERTENSION (6) Pulmonary nodules Code(s): R91.8 - OTHER NONSPECIFIC ABNORMAL FINDING OF LUNG FIELD (7) COPD (chronic obstructive pulmonary disease) Code(s): J44.9 - CHRONIC OBSTRUCTIVE PULMONARY DISEASE, UNSPECIFIED (8) History of cigarette smoking Code(s): Z87.891 - PERSONAL HISTORY OF NICOTINE DEPENDENCE (9) Acute on chronic respiratory failure with hypoxia and hypercapnia Code(s): J96.21 - ACUTE AND CHRONIC RESPIRATORY FAILURE WITH HYPOXIA J96.22 - ACUTE AND CHRONIC RESPIRATORY FAILURE WITH HYPERCAPNIAEPENDENCE +Troponins/Acute NSTEMI Lactic Acidosis h/o Breast Ca 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
== END 2016-07-26 15:38 | DRG 870 ==
LOC: JER 16:35 → JERBED 19:35 → JICU 22:30 → J4W 06-15 21:09 → JICU 06-22 13:13 → J4W 07-08 16:45 → J5S 07-17 21:08
PROVIDERS: ADMIT Internal Medicine; ATTEND Internal Medicine
PROC: 05HM33Z Insertion of Infusion Device into Right Internal Jugular Vein, Percutaneous Approach (ICD-10-PCS; principal; 2016-05-31)
PROC: 3E0G76Z Introduction of Nutritional Substance into Upper GI, Via Natural or Artificial Opening (ICD-10-PCS; 2016-06-01)
PROC: 30233N1 Transfusion of Nonautologous Red Blood Cells into Peripheral Vein, Percutaneous Approach (ICD-10-PCS; 2016-06-02)
PROC: 5A1955Z Respiratory Ventilation, Greater than 96 Consecutive Hours (ICD-10-PCS; 2016-06-04)
PROC: 0BH17EZ Insertion of Endotracheal Airway into Trachea, Via Natural or Artificial Opening (ICD-10-PCS; 2016-06-04)
DX: A41.89 Other specified sepsis (principal); J96.21 Acute and chronic respiratory failure with hypoxia; R65.21 Severe sepsis with septic shock; I21.4 Non-ST elevation (NSTEMI) myocardial infarction; I50.33 Acute on chronic diastolic (congestive) heart failure; J69.0 Pneumonitis due to inhalation of food and vomit; G93.41 Metabolic encephalopathy; J96.22 Acute and chronic respiratory failure with hypercapnia; R09.2 Respiratory arrest; I47.1 Supraventricular tachycardia; J44.1 Chronic obstructive pulmonary disease with (acute) exacerbation; E87.2 Acidosis; K92.2 Gastrointestinal hemorrhage, unspecified; N39.0 Urinary tract infection, site not specified; L89.154 Pressure ulcer of sacral region, stage 4; A41.9 Sepsis, unspecified organism; E78.5 Hyperlipidemia, unspecified; I25.10 Atherosclerotic heart disease of native coronary artery without angina pectoris; F17.210 Nicotine dependence, cigarettes, uncomplicated; R91.1 Solitary pulmonary nodule; I65.29 Occlusion and stenosis of unspecified carotid artery; I27.2 Other secondary pulmonary hypertension; I11.0 Hypertensive heart disease with heart failure; J10.1 Influenza due to other identified influenza virus with other respiratory manifestations; D64.9 Anemia, unspecified; R00.1 Bradycardia, unspecified; I35.0 Nonrheumatic aortic (valve) stenosis; I71.4 Abdominal aortic aneurysm, without rupture; L89.322 Pressure ulcer of left buttock, stage 2; R41.0 Disorientation, unspecified; R06.82 Tachypnea, not elsewhere classified; E87.5 Hyperkalemia; R13.10 Dysphagia, unspecified; R19.7 Diarrhea, unspecified; I48.91 Unspecified atrial fibrillation; Z85.3 Personal history of malignant neoplasm of breast; Z99.81 Dependence on supplemental oxygen
CPT/HCPCS: 31500; 36415; 36430; 36600; 71010-TC; 71275-TC; 80048; 80053; 80061; 80307; 81003; 81015; 82272; 82550; 82553; 82803; 83605; 83721; 83735; 83880; 84100; 84132; 84443; 84481; 84484; 85025; 85027; 85379; 85610; 85730; 86850; 86900; 86901; 86922; 87040; 87070; 87086; 87186; 87205; 87324; 87449; 87804; 92611-GN; 93005; 93010; 93306-TC; 93971-TC; 94002; 94010; 94640; 94660; 97116-GP; 97162-PG; 99285-25; G0480; G9019; J1644; P9038; P9058